=== PATIENT | female | born 1965 | race Caucasian/White ===

== ENCOUNTER 2022-04-28 23:22 | Emergency (ER) | payer SELFPAY ==
--- NOTE | ~2022-04-28 | CT_ITS ---
EXAMINATION: CT HEAD WITHOUT CONTRAST CLINICAL INFORMATION: Altered mental status. COMPARISON: None TECHNIQUE: Contiguous axial imaging was performed from the skull base to vertex without intravenous administration of contrast. This CT examination was performed using dose optimization techniques as appropriate, variously including the following: *Automated exposure control *Adjustment of mA and/or kV according to patient size (this includes techniques or standardized protocols for targeted exams where dose is matched to indication/reason for exam; i.e. extremities or head) *Use of iterative reconstruction technique DLP: 625 mGy-cm FINDINGS: Mild diffuse commensurate prominence of ventricles and sulci is noted. No intracranial hemorrhage, tumors or acute infarcts are noted. No focal parenchymal lesions of the brain identified. The orbits and globes are normal in appearance. No significant opacification of the visualized paranasal sinuses, mastoid air cells and middle ear cavities. CT/CT head/brain wo con IMPRESSION: *No acute intracranial abnormalities.
[2022-04-28 23:37] VITALS: BP 150/80; BP 170/90; PULSE 81; PULSE 90; RESP 16; TEMP 36.8; O2SAT 97; O2SAT 99; BMI 26.4
--- NOTE | 2022-04-28 23:41 | ECG_ITS ---
Test Reason : AMS Blood Pressure : / mmHG Vent. Rate : 074 BPM Atrial Rate : 074 BPM P-R Int : 158 ms QRS Dur : 082 ms QT Int : 394 ms P-R-T Axes : 035 -01 032 degrees QTc Int : 437 ms Normal sinus rhythm Normal ECG No previous ECGs available Referred By: Mona Marshall Electronically Signed By:GREGORIO DIXON MD
--- NOTE | 2022-04-28 23:42 | ED.GENADULT ---
HPI - General Adult General Chief complaint: General Medical Stated complaint: AMS Time Seen by Provider: 04/28/22 23:36 Source: patient and EMS Mode of arrival: EMS Limitations: no limitations History of Present Illness HPI narrative: Patient comes to the emergency room via EMS for altered mental status. Seems that throughout the day, patient's blood glucose has been low, patient ate and now her blood glucose was high. Patient states that this time she feels tired, otherwise has no symptoms. Patient states she has been awake the whole time, no loss of consciousness. Patient did not have any seizure-like activity. Related Data Allergies Allergy/AdvReac Type Severity Reaction Status Date / Time No Known Allergies Allergy Verified 04/28/22 23:41 Review of Systems Review of Systems: Constitutional : No Weight loss, No Fever, No Chills, No Night Sweats, No Fatigue, No Malaise , feeling tired ENT/Mouth : No Hearing loss, No Ear Pain, No Nasal Congestion, No Sinus Pain, No Hoarseness, No sore throat, No Rhinorrhea, No Swallowing Difficulty Eyes: No Eye Pain, No Swelling, No Redness, No Foreign Body, No Discharge, No Vision Changes Cardiovascular : No Chest Pain, No SOB, No Dyspnea on Exertion, No Orthopnea, No Edema, No Palpitations Respiratory : No Cough, No Sputum, No Wheezing, No Smoke Exposure, No Dyspnea Gastrointestinal : No Nausea, No Vomiting, No Diarrhea, No Constipation, No abdominal Pain, No Hematochezia, No Melena Genitourinary : no irregular bleeding, No Dysuria, No Urinary Frequency, No Hematuria, No Urinary Incontinence, No Urgency, No Flank Pain, No Urinary Flow Changes, No Hesitancy Musculoskeletal : No joint pain, No Myalgias, No Joint Swelling Skin : No Skin Lesions, No rash Neuro : No Weakness, No Numbness, No Paresthesias, No Loss of Consciousness, No Dizziness, No Headache Psych : No Anxiety/Panic, No Depression, No SI/HI/AH/VH, No Social Issues, Heme/Lymph: No Bruising, No Bleeding,No Lymphadenopathy Endocrine : No Polyuria, No Polydipsia, No Temperature Intolerance [facility] Past Medical History Medical History (Updated 04/29/22 @ 02:46 by Mona Marshall MD) Diabetes GERD (gastroesophageal reflux disease) Social History Social History Advance Directives: No Advance Directives Information Provided: Yes Physical Exam ED Vital Signs: Vital Signs - 24 hr 04/28/22 23:37 04/28/22 23:43 04/29/22 00:34 Temperature 98.3 F 98.3 F 98.2 F Pulse Rate 81 77 79 Respiratory Rate 16 16 16 Blood Pressure 150/80 H 150/80 H 126/73 Pulse Oximetry 97 97 100 Oxygen Delivery Method Room Air Room Air Room Air BMI result Body Mass Index 26.4 Const Other: Appearance: Alert. Oriented X3. No acute distress. Eyes: Pupils equal, round and reactive to light. ENT: Pharynx normal. Neck: Normal inspection. Neck supple. No lymph nodes noted. No crepitus CVS: Normal heart rate and rhythm. Pulses normal. Normal S1 and S2 Respiratory: No respiratory distress. Breath sounds normal. No Wheezing. No rales Abdomen: Soft and nontender. No rigidity. No distention. Skin: Skin warm and dry. Normal skin color. Normal skin turgor. Extremities: No lower extremity edema. No Lacerations. No Rash Neuro: Oriented X 3. No motor deficit. No sensory deficit. Moving all extremities. No slurred speech. CN 2 through 12 grossly intact Psych: calm, cooperative, normal affect Course Course Course Narrative: of patient's labs are pending. I discussed labs with the patient. Patient states that she feels completely back to baseline, alert and oriented x4, ambulatory with steady gait Medical Decision Making Lab Data Result diagrams: 04/28/22 23:58 04/28/22 23:58 Labs: Lab Results 04/28/22 04/28/22 04/28/22 Range/Units 23:58 23:58 23:58 WBC 7.4 (4.8-10.8) X10*3/uL RBC 4.98 (4.20-5.50) X10*6/uL Hgb 12.5 (12.0-16.0) g/dl Hct 38.6 (37.0-47.0) % MCV 77.5 L (80.0-98.0) fL MCH 25.1 L (27.0-33.0) pg MCHC 32.4 (31.0-35.0) g/dl RDW 14.4 (11.0-16.0) % Plt Count 205 (160-400) X10*3/uL MPV 10.1 (9.4-12.3) fL Immature Gran % (Auto) 0.4 (0.0-0.4) % Neut % (Auto) 66.2 (45-73) % Lymph % (Auto) 15.2 L (20-40) % [place] % (Auto) 13.9 H (2-11) % Eos % (Auto) 3.9 (0-4) % Baso % (Auto) 0.4 (0-2) % Lymph # (Auto) 1.1 L (1.2-4.9) X10*3/uL [place] # (Auto) 1.0 (0.1-1.2) X10*3/uL Eos # (Auto) 0.3 (0.0-0.4) X10*3/uL Baso # (Auto) 0.0 (0.0-0.2) X10*3/uL Abs Immat Gran (auto) 0.03 (0.00-0.03) X10*3/uL Absolute Neuts (auto) 4.9 (2.0-8.3) x10*3/uL Absolute Nucleated RBC 0.000 (0.0-0.012) X10*3/uL Nucleated RBC % (auto) 0.0 (0.0-0.2) /100WBC Sodium 135 (135-145) mmol/L Potassium 3.3 (3.3-5.1) mmol/L Chloride 97 (96-108) mmol/L Carbon Dioxide 28 (22-29) mmol/L Anion Gap 13 (12-20) BUN 11 (9-16) mg/dL Creatinine 1.04 (0.5-1.4) mg/dL Estim Creat Clear Calc 52.1 Estimated GFR 55 Random Glucose 277 H (60-115) mg/dL Calcium 8.9 (8.4-10.2) mg/dL Total Bilirubin 0.6 (0.0-1.0) mg/dL Direct Bilirubin 0.3 (0.0-0.5) mg/dL AST 28 (5-31) U/L ALT 19 (0-31) U/L Alkaline Phosphatase 81 (39-117) U/L Total Protein 6.6 (6.5-8.0) g/dL Albumin 3.9 (3.5-5.0) g/dL Urine Color Urine Appearance Urine pH (5.0-8.0) Ur Specific [place] (1.005-1.025) Urine Protein (NEG-TRACE) MG/DL Urine Glucose (UA) (NEG) MG/DL Urine Ketones (NEG) MG/DL Urine Blood (NEG) Urine Nitrite (NEG) Ur Leukocyte Esterase (NEG) Urine RBC (0) /HPF Urine WBC (0-4) /HPF Ur Squamous Epith Cells /LPF Urine Bacteria /LPF Urine Mucus /LPF Urine Opiates Screen (Not Detect) Urine Fentanyl Screen (Not Detect) Ur Barbiturates Screen (Not Detect) Ur Phencyclidine Scrn (Not Detect) Ur Amphetamines Screen (Not Detect) U Benzodiazepines Scrn (Not Detect) Urine Cocaine Screen (Not Detect) U Marijuana (THC) Screen (Not Detect) Ethyl Alcohol < 10 mg/dL 04/28/22 04/28/22 Range/Units 23:58 23:58 WBC (4.8-10.8) X10*3/uL RBC (4.20-5.50) X10*6/uL Hgb (12.0-16.0) g/dl Hct (37.0-47.0) % MCV (80.0-98.0) fL MCH (27.0-33.0) pg MCHC (31.0-35.0) g/dl RDW (11.0-16.0) % Plt Count (160-400) X10*3/uL MPV (9.4-12.3) fL Immature Gran % (Auto) (0.0-0.4) % Neut % (Auto) (45-73) % Lymph % (Auto) (20-40) % [place] % (Auto) (2-11) % Eos % (Auto) (0-4) % Baso % (Auto) (0-2) % Lymph # (Auto) (1.2-4.9) X10*3/uL [place] # (Auto) (0.1-1.2) X10*3/uL Eos # (Auto) (0.0-0.4) X10*3/uL Baso # (Auto) (0.0-0.2) X10*3/uL Abs Immat Gran (auto) (0.00-0.03) X10*3/uL Absolute Neuts (auto) (2.0-8.3) x10*3/uL Absolute Nucleated RBC (0.0-0.012) X10*3/uL Nucleated RBC % (auto) (0.0-0.2) /100WBC Sodium (135-145) mmol/L Potassium (3.3-5.1) mmol/L Chloride (96-108) mmol/L Carbon Dioxide (22-29) mmol/L Anion Gap (12-20) BUN (9-16) mg/dL Creatinine (0.5-1.4) mg/dL Estim Creat Clear Calc Estimated GFR Random Glucose (60-115) mg/dL Calcium (8.4-10.2) mg/dL Total Bilirubin (0.0-1.0) mg/dL Direct Bilirubin (0.0-0.5) mg/dL AST (5-31) U/L ALT (0-31) U/L Alkaline Phosphatase (39-117) U/L Total Protein (6.5-8.0) g/dL Albumin (3.5-5.0) g/dL Urine Color YELLOW Urine Appearance HAZY Urine pH 6.5 (5.0-8.0) Ur Specific [place] <= 1.005 (1.005-1.025) Urine Protein TRACE (NEG-TRACE) MG/DL Urine Glucose (UA) >=1000 H (NEG) MG/DL Urine Ketones NEG (NEG) MG/DL Urine Blood 1+ H (NEG) Urine Nitrite NEG (NEG) Ur Leukocyte Esterase NEG (NEG) Urine RBC 0-2 (0) /HPF Urine WBC 0 (0-4) /HPF Ur Squamous Epith Cells 1+ /LPF Urine Bacteria 1+ /LPF Urine Mucus 1+ /LPF Urine Opiates Screen Not Detected (Not Detect) Urine Fentanyl Screen Not Detected (Not Detect) Ur Barbiturates Screen Not Detected (Not Detect) Ur Phencyclidine Scrn Not Detected (Not Detect) Ur Amphetamines Screen Not Detected (Not Detect) U Benzodiazepines Scrn Not Detected (Not Detect) Urine Cocaine Screen Not Detected (Not Detect) U Marijuana (THC) Screen Not Detected (Not Detect) Ethyl Alcohol mg/dL Imaging Data CT scan - head: Radiologist's impression: TECHNIQUE: Contiguous axial imaging was performed from the skull base to vertex without intravenous administration of contrast. This CT examination was performed using dose optimization techniques as appropriate, variously including the following: *Automated exposure control *Adjustment of mA and/or kV according to patient size (this includes techniques or standardized protocols for targeted exams where dose is matched to indication/reason for exam; i.e. extremities or head) *Use of iterative reconstruction technique DLP: 625 mGy-cm FINDINGS: Mild diffuse commensurate prominence of ventricles and sulci is noted. No intracranial hemorrhage, tumors or acute infarcts are noted. No focal parenchymal lesions of the brain identified. The orbits and globes are normal in appearance. No significant opacification of the visualized paranasal sinuses, mastoid air cells and middle ear cavities. CT/CT head/brain wo con IMPRESSION: *No acute intracranial abnormalities. Discharge Plan Discharge Clinical Impression: Acute hyperglycemia, Acute confusion Patient Disposition: Home, Self-Care Instructions: Diabetes and Exercise (ED) Additional Instructions: Please follow-up with your primary care physician tomorrow. If you have any worsening or new symptoms, please return to the emergency room or call 911
[2022-04-28 23:43] VITALS: BP 150/80; PULSE 77; RESP 16; TEMP 36.8; O2SAT 97; BMI 26.4
[2022-04-29 00:03] LABS: MANUAL DIFF FLAG NO
[2022-04-29 00:04] LABS: Basophils Percent Auto 0.4 % (0-2); Eosinophils Absolute Auto 0.3 X10*3/uL (0.0-0.4); Eosinophils Percent Auto 3.9 % (0-4); Hematocrit 38.6 % (37.0-47.0); Hemoglobin 12.5 g/dl (12.0-16.0); Imm Gran Abs Auto 0.03 X10*3/uL (0.00-0.03); Imm Gran Pct Auto 0.4 % (0.0-0.4); Lymphocytes Absolute Auto 1.1 X10*3/uL (1.2-4.9); Lymphocytes Percent Auto 15.2 % (20-40); Mean Corpuscular HGB Conc 32.4 g/dl (31.0-35.0); Mean Corpuscular Hemoglobin 25.1 pg (27.0-33.0); Mean Corpuscular Volume 77.5 fL (80.0-98.0); Mean Platelet Volume 10.1 fL (9.4-12.3); Monocytes Percent Auto 13.9 % (2-11); Neutrophils Absolute Auto 4.9 x10*3/uL (2.0-8.3); Neutrophils Percent Auto 66.2 % (45-73); Platelet Count 205 X10*3/uL (160-400); Red Blood Count 4.98 X10*6/uL (4.20-5.50); Red Cell Distribution Width 14.4 % (11.0-16.0); White Blood Count 7.4 X10*3/uL (4.8-10.8)
[2022-04-29 00:05] LABS: Appearance Urine HAZY; Color Urine YELLOW; Glucose Urine UA >=1000 MG/DL (NEG); Leukocyte Esterase Urine NEG (NEG); Nitrite Urine NEG (NEG); PH 6.5 (5.0-8.0); Specific Gravity - Urine <= 1.005 (1.005-1.025); UACC Culture Trigger NO; Urine Blood 1+ (NEG); Urine Ketones NEG (NEG); Urine Protein TRACE MG/DL (NEG-TRACE)
[2022-04-29 00:14] LABS: Bacteria Urine 1+ /LPF; Mucus Urine 1+ /LPF; RBC Urine 0-2 /HPF (0); Squamous Epithelial Cell Urine 1+ /LPF; WBC Urine 0 /HPF (0-4)
[2022-04-29 00:18] LABS: Amphetamine Screen Urine Not Detected (Not Detect); Barbiturates, Urine Not Detected (Not Detect); Benzodiazepines Screen Urine Not Detected (Not Detect); Cannabinoid Screen Urine Not Detected (Not Detect); Cocaine Screen Urine Not Detected (Not Detect); Fentanyl, urine Not Detected (Not Detect); Opiate Screen Urine Not Detected (Not Detect); Phencyclidine Screen Urine Not Detected (Not Detect)
[2022-04-29 00:20] LABS: Ethanol < 10 mg/dL
[2022-04-29 00:22] LABS: Alanine Aminotransferase 19 U/L (0-31); Albumin Level 3.9 g/dL (3.5-5.0); Alkaline Phosphatase 81 U/L (39-117); Anion Gap 13 (12-20); Aspartate Amino Transferase 28 U/L (5-31); Bilirubin Direct 0.3 mg/dL (0.0-0.5); Bilirubin Total 0.6 mg/dL (0.0-1.0); Blood Urea Nitrogen 11 mg/dL (9-16); Calcium 8.9 mg/dL (8.4-10.2); Carbon Dioxide 28 mmol/L (22-29); Chloride 97 mmol/L (96-108); Creatinine Clr Calc Pharmacy 52.1; Estimated Glomerular Filt Rate 55; Glucose Random 277 mg/dL (60-115); Potassium 3.3 mmol/L (3.3-5.1); Sodium 135 mmol/L (135-145); Total Protein 6.6 g/dL (6.5-8.0)
[2022-04-29 00:34] VITALS: BP 126/73; PULSE 79; RESP 16; TEMP 36.8; O2SAT 100
[2022-04-29 02:44] VITALS: BP 128/66; PULSE 75; RESP 18; O2SAT 97
== END 2022-04-29 03:06 | disposition home or self-care (01) ==
PROVIDERS: Emergency Provider Emergency Medicine
DX: R73.9 Hyperglycemia, unspecified (principal); R41.82 Altered mental status, unspecified; Z79.899 Other long term (current) drug therapy
CPT/HCPCS: 36415; 70450; 80048; 80076; 80307; 81001; 82077; 85025; 93005; 99283; 99284

== ENCOUNTER 2022-07-21 20:52 | Emergency (ER) | payer BC, SELFPAY ==
--- NOTE | ~2022-07-21 | CT_ITS ---
EXAMINATION: CT HEAD WITHOUT CONTRAST CLINICAL INFORMATION: Memory problem. COMPARISON: CT head from 04/29/2022. TECHNIQUE: Contiguous axial imaging was performed from the skull base to vertex without intravenous administration of contrast. This CT examination was performed using dose optimization techniques as appropriate, variously including the following: *Automated exposure control. *Adjustment of mA and/or kV according to patient size (this includes techniques or standardized protocols for targeted exams where dose is matched to indication/reason for exam; i.e. extremities or head). *Use of iterative reconstruction technique. DLP: 637 mGy-cm FINDINGS: There is no evidence of acute intracranial hemorrhage or edematous territorial infarction. Ott-white matter differentiation is preserved. There is no abnormal attenuation within the brain parenchyma. Proportional prominence of the ventricles and sulcal spaces without evidence of obstructive hydrocephalus. Normal positioning of the cerebellar tonsils. No abnormal mass effect or midline shift. No extra-axial fluid collections. No acute soft tissue or osseous abnormalities. The mastoid air cells and visualized paranasal sinuses are clear. CT/CT head/brain wo IV con IMPRESSION: No evidence of acute intracranial hemorrhage or edematous territorial infarction.
[2022-07-21 21:20] VITALS: BP 135/100; PULSE 72; RESP 15; TEMP 37.2; O2SAT 99; BMI 26.4
[2022-07-21 21:23] VITALS: BP 135/80
[2022-07-21 21:46] LABS: Appearance Urine Clear; Color Urine Yellow; Glucose Urine UA >=1000 mg/dL (Negative); Leukocyte Esterase Urine Negative (Negative); Nitrite Urine Negative (Negative); UMIC TRIGGER UACC YES; Urine Blood Negative (Negative); Urine Ketones Negative (Negative); Urine Protein Negative (Neg-Trace)
[2022-07-21 21:48] LABS: Bacteria Urine None Seen (None Seen); Hyaline Casts Urine 0-2 /LPF (0-2); RBC Urine 0-2 /HPF (0-2); Squamous Epithelial Cell Urine 0-2 /HPF (0-2); WBC Urine 0-5 /HPF (0-5)
[2022-07-21 22:59] LABS: MANUAL DIFF FLAG NO
[2022-07-21 23:01] LABS: Basophils Percent Auto 0.3 % (0-2); Eosinophils Absolute Auto 0.1 X10*3/uL (0.0-0.4); Hematocrit 40.1 % (37.0-47.0); Hemoglobin 12.5 g/dl (12.0-16.0); Imm Gran Abs Auto 0.03 X10*3/uL (0.00-0.03); Imm Gran Pct Auto 0.3 % (0.0-0.4); Lymphocytes Absolute Auto 2.7 X10*3/uL (1.2-4.9); Lymphocytes Percent Auto 27.6 % (20-40); Mean Corpuscular HGB Conc 31.2 g/dl (31.0-35.0); Mean Corpuscular Hemoglobin 25.6 pg (27.0-33.0); Mean Platelet Volume 10.7 fL (9.4-12.3); Monocytes Absolute Auto 0.6 X10*3/uL (0.1-1.2); Monocytes Percent Auto 6.4 % (2-11); Neutrophils Absolute Auto 6.2 x10*3/uL (2.0-8.3); Neutrophils Percent Auto 64.4 % (45-73); Platelet Count 292 X10*3/uL (160-400); Red Blood Count 4.89 X10*6/uL (4.20-5.50); Red Cell Distribution Width 14.7 % (11.0-16.0); White Blood Count 9.7 X10*3/uL (4.8-10.8)
[2022-07-21 23:19] LABS: Alanine Aminotransferase 15 U/L (0-31); Albumin Level 4.1 g/dL (3.5-5.0); Alkaline Phosphatase 84 U/L (39-117); Anion Gap 17 (12-20); Aspartate Amino Transferase 16 U/L (5-31); Bilirubin Total 0.3 mg/dL (0.0-1.0); Blood Urea Nitrogen 13 mg/dL (9-16); Calcium 9.6 mg/dL (8.4-10.2); Carbon Dioxide 29 mmol/L (22-29); Chloride 101 mmol/L (96-108); Creatinine Clr Calc Pharmacy 58.2; Estimated Glomerular Filt Rate > 60; Glucose Random 191 mg/dL (60-115); Potassium 4.7 mmol/L (3.3-5.1); Sodium 142 mmol/L (135-145)
--- NOTE | 2022-07-22 00:46 | ED_ITS ---
HPI - General Adult General Chief complaint: Altered Mental Status Stated complaint: Forgetful this past year Time Seen by Provider: 07/22/22 00:34 Source: patient and family (Brother) Mode of arrival: ambulatory Limitations: no limitations History of Present Illness HPI narrative: 57-year-old female came in with her brother for concern of memory issues for 1 year. Brother and family noticed that the patient is forgetting things for the past year and progressively getting worse, patient forget her date of in triage, patient also forget to take her medication for diabetes, and start to affect her job. Patient and family confirm this symptoms has been going for the past year she and is not acute, patient declined any headache, no blurry vision, no weakness, no numbness, no CP, no SOB, patient also declined any head injury or trauma. Patient lives home with her stated that she is stressed out, no SI, no HI. Related Data Allergies Allergy/AdvReac Type Severity Reaction Status Date / Time No Known Allergies Allergy Verified 07/21/22 21:23 Review of Systems Review of Systems: All other systems are reviewed and are negative Constitutional: Reports as per HPI and Reports no additional constitutional complaints Eyes: Reports as per HPI and Reports no additional eye complaints Reports system reviewed and no additional complaints, except as documented Cardiovascular: Reports as per HPI and Reports no additional cardiovascular complaints Respiratory: Reports as per HPI and Reports no additional respiratory complaints Gastrointestinal: Reports as per HPI and Reports no additional gastrointestinal complaints Genitourinary: Reports no additional female genitourinary complaints Musculoskeletal: Reports no additional musculoskeletal complaints Skin/Breast: Reports system reviewed and no additional complaints, except as docu Psychiatric: Reports no additional psychiatric complaints Endocrine: Reports no additional endocrine complaints Hematologic/Lymphatic: Reports no additional hematologic/lymphatic complaints Allergic/Immunologic: Reports no additional allergic/immunologic complaints Reports system reviewed and no additional complaints, except as documented and Reports Abnormal speech present [facility] Past Medical History Medical History Diabetes GERD (gastroesophageal reflux disease) Social History Social History Advance Directives: No Advance Directives Information Provided: No Physical Exam ED Vital Signs: Vital Signs - 24 hr 07/21/22 21:20 07/21/22 21:23 Temperature 98.9 F Pulse Rate 72 Respiratory Rate 15 Blood Pressure 135/100 H 135/80 Pulse Oximetry 99 Oxygen Delivery Method Room Air BMI result Body Mass Index 26.4 Vital signs have been reviewed as appeared to be correct. Blood pressure normal. Heart rate normal. Respiration rate normal. Temperature normal. Oxygen saturation normal. Appearance: Alert. Oriented X3. No acute distress. Head: Normal external exam. Normocephalic. Atraumatic. No Fish signs noted. No raccoon eyes noted Eyes: PERRLA. EOMI. Conjunctiva and sclera normal. Eyelids normal. ENT: TM's Normal. Pharynx normal. Uvula midline. Moist mucous membranes. No trismus noted. No drooling noted. No muffled voice noted. Neck: Normal inspection. Neck supple. FROM. No adenopathy. Thyroid Normal. No meningeal signs. No neck mass noted. CVS: Normal heart rate and rhythm. Heart sound normal. No murmurs noted. Pulses normal throughout. Respiratory: No respiratory distress. Painless inspiration. Breath sounds normal. No wheezes/rales/rhonchi noted. Chest nontender. No accessory muscle usage noted or decreased air movement noted. Abdomen: Soft and nontender. Bowel sounds normal in all 4 quadrants. No distention noted. No organomegaly noted. No visible injury noted. Back: No CVA tenderness. Full range of motion noted. Skin: Skin warm and dry. Normal skin color. Normal skin turgor. No rashes/lesions/lacerations noted. Extremities: No lower extremity edema. Extremities exhibit normal range of motion. Extremities nontender. Neuro: Oriented X 3. Cranial nerve exam: II-XII are grossly intact No motor deficit. No sensory deficit. Reflexes normal. Patient Orientation: Person, Place, and situation but not time Level of Consciousness: Awake, Appropriate and Alert Patient Behavior: Appropriate, Guarded, Cooperative and Anxious Mood Description: Unremarkable Affect Description: Unremarkable Patient Cognition Impaired: No Ability to Follow Directions: Excellent Speech Pattern: Clear, Appropriate and Spontaneous Speech Memory Description: Short-term memory impaired (own patient asked memorized 3 sings patient forgot 2 out of 3) Hallucinations: None Delusions: Not Present Thought Process: Intact Thought Content: positive for Intact, positive for Logical, denies Suicidal Ideation and denies Homicidal Ideation. Depressive Symptoms: Not present Judgement: Good Judgement and Insight: Intact Course Course Course Narrative: 57-year-old female came in for evaluation of memory deficit for the past year, patient has normal neuro exam, normal mental exam, unremarkable head CT today, patient had head CT 3 months ago which was unremarkable. Patient will need further evaluation by a neurologist. Medical Decision Making Lab Data Lab results reviewed: Yes I reviewed the patient's lab results. Result diagrams: 07/21/22 22:51 07/21/22 22:51 Labs: Lab Results 07/21/22 07/21/22 07/21/22 Range/Units 21:39 22:51 22:51 WBC 9.7 (4.8-10.8) X10*3/uL RBC 4.89 (4.20-5.50) X10*6/uL Hgb 12.5 (12.0-16.0) g/dl Hct 40.1 (37.0-47.0) % MCV 82.0 (80.0-98.0) fL MCH 25.6 L (27.0-33.0) pg MCHC 31.2 (31.0-35.0) g/dl RDW 14.7 (11.0-16.0) % Plt Count 292 D (160-400) X10*3/uL MPV 10.7 (9.4-12.3) fL Immature Gran % (Auto) 0.3 (0.0-0.4) % Neut % (Auto) 64.4 (45-73) % Lymph % (Auto) 27.6 (20-40) % [place] % (Auto) 6.4 (2-11) % Eos % (Auto) 1.0 (0-4) % Baso % (Auto) 0.3 (0-2) % Lymph # (Auto) 2.7 (1.2-4.9) X10*3/uL [place] # (Auto) 0.6 (0.1-1.2) X10*3/uL Eos # (Auto) 0.1 (0.0-0.4) X10*3/uL Baso # (Auto) 0.0 (0.0-0.2) X10*3/uL Abs Immat Gran (auto) 0.03 (0.00-0.03) X10*3/uL Absolute Neuts (auto) 6.2 (2.0-8.3) x10*3/uL Absolute Nucleated RBC 0.000 (0.0-0.012) X10*3/uL Nucleated RBC % (auto) 0.0 (0.0-0.2) /100WBC Sodium 142 (135-145) mmol/L Potassium 4.7 D (3.3-5.1) mmol/L Chloride 101 (96-108) mmol/L Carbon Dioxide 29 (22-29) mmol/L Anion Gap 17 (12-20) BUN 13 (9-16) mg/dL Creatinine 0.92 (0.5-1.4) mg/dL Estim Creat Clear Calc 58.2 Estimated GFR > 60 Random Glucose 191 H (60-115) mg/dL Calcium 9.6 D (8.4-10.2) mg/dL Total Bilirubin 0.3 (0.0-1.0) mg/dL AST 16 D (5-31) U/L ALT 15 (0-31) U/L Alkaline Phosphatase 84 (39-117) U/L Total Protein 7.0 (6.5-8.0) g/dL Albumin 4.1 (3.5-5.0) g/dL Urine Color Yellow Urine Appearance Clear Urine pH 6.0 (5.0-9.0) Ur Specific [place] 1.020 (1.005-1.025) Urine Protein Negative (Neg-Trace) mg/dL Urine Glucose (UA) >=1000 H (Negative) mg/dL Urine Ketones Negative (Negative) mg/dL Urine Blood Negative (Negative) Urine Nitrite Negative (Negative) Ur Leukocyte Esterase Negative (Negative) Urine RBC 0-2 (0-2) /HPF Urine WBC 0-5 (0-5) /HPF Ur Squamous Epith Cells 0-2 (0-2) /HPF Urine Bacteria None Seen (None Seen) Hyaline Casts 0-2 (0-2) /LPF Imaging Data CT scan - head: Attestation: I personally reviewed and interpreted this imaging study as follows: Radiologist's impression: No evidence of acute intracranial hemorrhage or edematous territorial infarction. ? Discharge Plan Discharge Clinical Impression: Memory deficit Patient Disposition: Home, Self-Care Instructions: Dementia (ED) Referrals: Asad Mattson MD [Physician] -
== END 2022-07-22 02:09 | disposition home or self-care (01) ==
PROVIDERS: Emergency Provider Emergency Medicine
DX: R41.3 Other amnesia (principal); E11.9 Type 2 diabetes mellitus without complications
CPT/HCPCS: 36415; 70450; 80053; 81001; 85025; 99283; 99284

== ENCOUNTER 2022-11-17 11:51 | Outpatient (REF) | payer BC, SELFPAY ==
[2022-11-17 13:26] LABS: Erythrocyte Sedimentation Rate 42 MM/HR (0-20)
[2022-11-17 13:36] LABS: Vitamin B12 610 pg/mL (200-900)
[2022-11-18 09:44] LABS: HIV AB/AG Nonreactive (Nonreactive); HIV Num 1 0.97 S/CO (0.00-0.99)
[2022-11-20 12:58] LABS: Anti Nuclear Antibody Screen NEGATIVE (NEGATIVE)
[2022-11-21 13:32] LABS: Lyme Abs Screen <0.90 index
== END 2022-11-17 11:52 | disposition home or self-care (01) ==
LOC: HO.LAB 11:51
PROVIDERS: PCP Internal Medicine; Visit Provider Psychiatry & Neurology Neurology
DX: Z11.4 Encounter for screening for human immunodeficiency virus [HIV] (principal); G93.40 Encephalopathy, unspecified
CPT/HCPCS: 36415; 82607; 85652; 86038; 86039; 86617; 86618; 87389

== ENCOUNTER 2023-03-23 15:18 | Inpatient (IN) | payer BC, SELFPAY ==
--- NOTE | 2023-03-23 | ECG_ITS ---
Test Reason : med clearance Blood Pressure : / mmHG Vent. Rate : 062 BPM Atrial Rate : 062 BPM P-R Int : 150 ms QRS Dur : 078 ms QT Int : 446 ms P-R-T Axes : -06 000 052 degrees QTc Int : 452 ms Normal sinus rhythm Normal ECG When compared with ECG of 28-APR-2022 23:55, No significant change was found Referred By: Nnamdi Bush Electronically Signed By:Waston Yu
--- NOTE | ~2023-03-23 | MR_ITS ---
EXAMINATION: MR BRAIN WITHOUT CONTRAST CLINICAL INFORMATION: Rule out CJD. Looking for white matter changes. COMPARISON: Head CT 07/22/2022. TECHNIQUE: Multiplanar, multisequence imaging of the brain was performed without intravenous contrast. FINDINGS: There is no acute infarction, mass, hemorrhage, or extra-axial collection. A few mild nonspecific foci of T2/FLAIR hyperintensity are seen within the periventricular and deep cerebral white matter as well as danny, presumably on the basis of chronic microangiopathy. A mild degree of brain parenchymal volume loss is noted. There is mild asymmetric prominence of the left lateral ventricular atrium, stable compared with prior. There is no abnormal signal within the cortex or thalami. The diffusion sequence appears normal. The flow voids of the major intracranial arteries appear intact. The bones and extracranial soft tissues are unremarkable. MR/MR head/brain wo con IMPRESSION: No acute infarct, mass lesion, intracranial hemorrhage, or evidence of hydrocephalus. Mild nonspecific T2/FLAIR hyperintensity in the cerebral white matter and danny presumably on the basis of chronic microangiopathy.
--- NOTE | ~2023-03-23 | CT_ITS ---
EXAMINATION: CT CERVICAL SPINE WITHOUT CONTRAST CLINICAL INFORMATION: Neck pain and weakness. COMPARISON: None available. TECHNIQUE: Multidetector CT acquisition of the cervical spine obtained without contrast. This CT examination was performed using dose optimization techniques as appropriate, variously including the following: *Automated exposure control *Adjustment of mA and/or kV according to patient size (this includes techniques or standardized protocols for targeted exams where dose is matched to indication/reason for exam; i.e. extremities or head) *Use of iterative reconstruction technique FINDINGS: Straightening the cervical lordosis. The vertebral body heights are maintained. The disc volumes are preserved. There are no acute fractures and there are no acute subluxations. The craniocervical junction is unremarkable. No bony erosions. There is multilevel facet arthropathy. There is no prevertebral soft tissue swelling. Central canal is not well assessed due to artifact. There is no high-grade bony foraminal stenosis. CT/CT cervical spine wo IV con IMPRESSION: No acute findings within the cervical spine. The cervical central canal is not well assessed on this CT due to artifact. If weakness persists, a cervical spine MRI would be more sensitive in assessment.
[2023-03-23 15:25] VITALS: BP 118/84; PULSE 70; O2SAT 16
[2023-03-23 15:29] VITALS: BP 156/70; PULSE 61; RESP 18; TEMP 36.6; O2SAT 97; BMI 34.7
[2023-03-23 15:54] LABS: MANUAL DIFF FLAG NO
[2023-03-23 15:56] LABS: Basophils Percent Auto 0.3 % (0-2); Eosinophils Absolute Auto 0.3 X10*3/uL (0.0-0.4); Hematocrit 49.5 % (37.0-47.0); Hemoglobin 15.7 g/dl (12.0-16.0); Imm Gran Abs Auto 0.04 X10*3/uL (0.00-0.03); Imm Gran Pct Auto 0.4 % (0.0-0.4); Lymphocytes Absolute Auto 2.2 X10*3/uL (1.2-4.9); Lymphocytes Percent Auto 24.7 % (20-40); Mean Corpuscular HGB Conc 31.7 g/dl (31.0-35.0); Mean Corpuscular Hemoglobin 26.9 pg (27.0-33.0); Mean Corpuscular Volume 84.9 fL (80.0-98.0); Mean Platelet Volume 10.3 fL (9.4-12.3); Monocytes Absolute Auto 0.6 X10*3/uL (0.1-1.2); Monocytes Percent Auto 6.7 % (2-11); Neutrophils Absolute Auto 5.8 x10*3/uL (2.0-8.3); Neutrophils Percent Auto 64.9 % (45-73); Platelet Count 254 X10*3/uL (160-400); Red Blood Count 5.83 X10*6/uL (4.20-5.50); Red Cell Distribution Width 13.2 % (11.0-16.0); White Blood Count 8.9 X10*3/uL (4.8-10.8)
[2023-03-23 15:58] LABS: Appearance Urine Clear; Color Urine Yellow; Glucose Urine UA >=1000 mg/dL (Negative); Leukocyte Esterase Urine Negative (Negative); Nitrite Urine Negative (Negative); Specific Gravity - Urine >= 1.030 (1.005-1.025); UMIC TRIGGER UACC YES; Urine Blood Negative (Negative); Urine Ketones 15 mg/dL (Negative); Urine Protein Negative (Neg-Trace)
[2023-03-23 16:01] LABS: Bacteria Urine None Seen (None Seen); Hyaline Casts Urine 0-2 /LPF (0-2); RBC Urine 0-2 /HPF (0-2); WBC Urine 0-5 /HPF (0-5)
[2023-03-23 16:06] LABS: Amphetamine Screen Urine Not Detected (Not Detect); Barbiturates, Urine Not Detected (Not Detect); Benzodiazepines Screen Urine Not Detected (Not Detect); Cannabinoid Screen Urine Not Detected (Not Detect); Cocaine Screen Urine Not Detected (Not Detect); Fentanyl, urine Not Detected (Not Detect); Opiate Screen Urine Not Detected (Not Detect); Phencyclidine Screen Urine Not Detected (Not Detect)
[2023-03-23 16:10] LABS: Anion Gap 15 (12-20); Blood Urea Nitrogen 14 mg/dL (9-16); Calcium 9.6 mg/dL (8.4-10.2); Carbon Dioxide 28 mmol/L (22-29); Chloride 104 mmol/L (96-108); Creatinine Clr Calc Pharmacy 66.6; Estimated Glomerular Filt Rate > 60; Glucose Random 161 mg/dL (60-115); Potassium 3.9 mmol/L (3.3-5.1); Sodium 143 mmol/L (135-145)
[2023-03-23 16:11] LABS: Ethanol < 10 mg/dL
[2023-03-23 16:16] LABS: COVID-19 Test Negative (Negative); IDNOW Serial# BCCEAD1C
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
[2023-03-23] MEDS: metFORMIN HCl 500 MG TABLET PO (21:03)
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
--- NOTE | 2023-03-24 10:11 | PC.NURSE ---
Patient refused meds and vitals this morning on [address] Matthew aware.
[2023-03-24] MEDS: metFORMIN HCl 500 MG TABLET PO ×2 (12:48→21:00)
[2023-03-24] MEDS: Empagliflozin 25 MG TABLET PO (12:48)
[2023-03-24] MEDS: Atorvastatin Calcium 40 MG TABLET PO (12:49)
[2023-03-24] MEDS: Famotidine 20 MG TABLET PO (12:49)
[2023-03-24] MEDS: Omeprazole 20 MG CAPSULE.DR PO (12:49)
[2023-03-24] MEDS: Venlafaxine HCL 25 MG TABLET 75 MG PO (12:49)
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
[2023-03-24] MEDS: hydrOXYzine HCL 25 MG TABLET PO (21:00)
[2023-03-24 21:01] VITALS: BP 150/72; PULSE 83; TEMP 36.6; O2SAT 97
[2023-03-24] MEDS: Rivastigmine Tartrate 1.5 MG CAPSULE PO (22:19)
[2023-03-25 08:30] VITALS: BP 113/71; PULSE 69; RESP 18; TEMP 36.4; O2SAT 97
[2023-03-25] MEDS: Rivastigmine Tartrate 1.5 MG CAPSULE PO ×2 (08:36→20:34)
[2023-03-25] MEDS: Venlafaxine HCL 25 MG TABLET 75 MG PO (08:36)
[2023-03-25] MEDS: Empagliflozin 25 MG TABLET PO (08:36)
[2023-03-25] MEDS: Atorvastatin Calcium 40 MG TABLET PO (08:37)
[2023-03-25] MEDS: Omeprazole 20 MG CAPSULE.DR PO (08:37)
[2023-03-25] MEDS: metFORMIN HCl 500 MG TABLET PO ×2 (08:37→20:34)
[2023-03-25] MEDS: Famotidine 20 MG TABLET PO (08:37)
--- NOTE | 2023-03-25 09:11 | P.PNPSI_ITS ---
Subjective Subjective Date of Service: 03/25/23 Reason For Visit: hallucinations Subjective Notes: Conditional Voluntary Healthcare Proxy: No Guardianship: No Medical Problems Affecting Mental Status: No Interim History: Patient was seen and discussed in rounds today. Records and plans were reviewed. She continues to be wondering around a little bit. She is safe on the unit. No auditory or visual hallucinations. She does have some cognitive difficulties. She has been mostly medication compliant. She does need some encouragement. Eating mostly adequately. She is on 5 minute checks. No complaints or side effects. No changes were made today Medication Compliance: Intermittent Side effects from medications: No Attending Groups: Intermittent Review of Systems Acute medical concerns: No Review of Systems Constitutional: Reports as per HPI, Denies chills, Denies fatigue, Denies fever(s) and Denies headache(s) Denies headache(s) Cardiovascular: Denies chest pain and Denies dyspnea Respiratory: Denies cough and Denies dyspnea Gastrointestinal: Denies abdominal pain, Denies constipation and Denies vomiting Genitourinary: Denies dysuria Denies headache(s) and Denies focal weakness Psychiatric: Denies auditory hallucinations, Reports hallucinations (Per the patient's daughter. Patient denies this), Denies tactile hallucinations and Denies suicidal ideation Endocrine: Denies fatigue Mental Status Exam Mental Status Exam Narrative: In today's visit she is alert, pleasant and interactive with brief answers. Speech is normal. Moderate eye contact. Affect is appropriate and constricted. No overt signs of psychosis. Cognitively she was not able to be tested. Judgment is marginally intact P Diagnostics Vital Signs (24Hr): Vital Signs - 24 hr 03/24/23 21:01 03/25/23 08:30 Temperature 97.9 F 97.5 F Pulse Rate 83 69 Respiratory Rate 18 Blood Pressure 150/72 H 113/71 Pulse Oximetry 97 97 Oxygen Delivery Method Room Air Room Air BMI result Body Mass Index 34.7 Labs 03/23/23 15:49 03/23/23 15:49 Labs: Laboratory Results - last 48 hr 03/23/23 03/23/23 03/23/23 15:42 15:42 15:44 WBC RBC Hgb Hct MCV MCH MCHC RDW Plt Count MPV Immature Gran % (Auto) Neut % (Auto) Lymph % (Auto) [place] % (Auto) Eos % (Auto) Baso % (Auto) Lymph # (Auto) [place] # (Auto) Eos # (Auto) Baso # (Auto) Abs Immat Gran (auto) Absolute Neuts (auto) Absolute Nucleated RBC Nucleated RBC % (auto) Sodium Potassium Chloride Carbon Dioxide Anion Gap BUN Creatinine Estim Creat Clear Calc Estimated GFR Random Glucose Calcium Urine Color Yellow Urine Appearance Clear Urine pH 6.0 Ur Specific Taylor >= 1.030 H Urine Protein Negative Urine Glucose (UA) >=1000 H Urine Ketones 15 Urine Blood Negative Urine Nitrite Negative Ur Leukocyte Esterase Negative Urine RBC 0-2 Urine WBC 0-5 Ur Squamous Epith Cells 3-5 Urine Bacteria None Seen Hyaline Casts 0-2 Urine Opiates Screen Not Detected Urine Fentanyl Screen Not Detected Ur Barbiturates Screen Not Detected Ur Phencyclidine Scrn Not Detected Ur Amphetamines Screen Not Detected U Benzodiazepines Scrn Not Detected Urine Cocaine Screen Not Detected U Marijuana (THC) Screen Not Detected Ethyl Alcohol COVID-19 (DANIEL) Negative COVID-19 Clin Com See Note 03/23/23 03/23/23 03/23/23 15:49 15:49 15:49 WBC 8.9 RBC 5.83 H Hgb 15.7 D Hct 49.5 H D MCV 84.9 MCH 26.9 L MCHC 31.7 RDW 13.2 Plt Count 254 MPV 10.3 Immature Gran % (Auto) 0.4 Neut % (Auto) 64.9 Lymph % (Auto) 24.7 [place] % (Auto) 6.7 Eos % (Auto) 3.0 Baso % (Auto) 0.3 Lymph # (Auto) 2.2 [place] # (Auto) 0.6 Eos # (Auto) 0.3 Baso # (Auto) 0.0 Abs Immat Gran (auto) 0.04 H Absolute Neuts (auto) 5.8 Absolute Nucleated RBC 0.000 Nucleated RBC % (auto) 0.0 Sodium 143 Potassium 3.9 Chloride 104 Carbon Dioxide 28 Anion Gap 15 BUN 14 Creatinine 0.96 Estim Creat Clear Calc 66.6 Estimated GFR > 60 Random Glucose 161 H Calcium 9.6 Urine Color Urine Appearance Urine pH Ur Specific Taylor Urine Protein Urine Glucose (UA) Urine Ketones Urine Blood Urine Nitrite Ur Leukocyte Esterase Urine RBC Urine WBC Ur Squamous Epith Cells Urine Bacteria Hyaline Casts Urine Opiates Screen Urine Fentanyl Screen Ur Barbiturates Screen Ur Phencyclidine Scrn Ur Amphetamines Screen U Benzodiazepines Scrn Urine Cocaine Screen U Marijuana (THC) Screen Ethyl Alcohol < 10 COVID-19 ([facility]EL) COVID-19 Clin Com Medications Medications Current Medications Acetaminophen (Acetaminophen 325 Mg Tablet) 650 mg PO Q6H PRN PRN Reason: Headache/Pain Mild Scale (1-3) Al Hydroxide/Mg Hydroxide (Magnesium Hydrox/Alum Hydrox 30 Ml Oral.Susp) 30 ml PO Q6H PRN PRN Reason: Heartburn/Nausea Atorvastatin Calcium (Atorvastatin Calcium 40 Mg Tablet) 40 mg PO DAILY [facility] Last Admin: 03/25/23 08:37 Dose: 40 mg Empagliflozin (Empagliflozin 25 Mg Tablet) 25 mg PO DAILY [facility] Last Admin: 03/25/23 08:36 Dose: 25 mg Famotidine (Famotidine 20 Mg Tablet) 20 mg PO DAILY [facility] Last Admin: 03/25/23 08:37 Dose: 20 mg Hydroxyzine HCl (Hydroxyzine Hcl 25 Mg Tablet) 25 mg PO Q6H PRN PRN Reason: Anxiety Last Admin: 03/24/23 21:00 Dose: 25 mg Magnesium Hydroxide (Milk Of Magnesia 30 Ml Oral.Susp) 30 ml PO DAILY PRN PRN Reason: Constipation Metformin HCl (Metformin Hcl 500 Mg Tablet) 500 mg PO BID [facility] Last Admin: 03/25/23 08:37 Dose: 500 mg Omeprazole (Omeprazole 20 Mg Capsule.Dr) 20 mg PO DAILY [facility] Last Admin: 03/25/23 08:37 Dose: 20 mg Rivastigmine Tartrate (Rivastigmine Tartrate 1.5 Mg Capsule) 1.5 mg PO BID [facility] Last Admin: 03/25/23 08:36 Dose: 1.5 mg Trazodone HCl (Trazodone Hcl 50 Mg Tablet) 50 mg PO BEDTIME [id number] PRN PRN Reason: Insomnia Venlafaxine HCl (Venlafaxine Hcl 25 Mg Tablet) 75 mg PO DAILY [facility] Last Admin: 03/25/23 08:36 Dose: 75 mg Allergies Allergies Allergy/AdvReac Type Severity Reaction Status Date / Time No Known Allergies Allergy Verified 03/23/23 18:13 Assessment & Plan Assessment & Plan (1) Hallucination, visual: Status: Acute Code(s): R44.1 - Visual hallucinations (2) Dementia: Status: Acute Code(s): F03.90 - Unspecified dementia, unspecified severity, without behavioral dis turbance, psychotic disturbance, mood disturbance, and anxiety Plan R/O lewy body dementia hold neuroleptics for now, pending neuro consult, as if pt has LBD and receives neuroleptics, irreversible injury may be caused. pt sees Dr. Mattson and reportedly has had imaging elsewhere. will ask Dr. Mattson to see her ROCHELLE. 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 03/25: Continue current regimen and plans. Neurology consult pending. Reason for continued inpatient stay Substantial Risk for: med/psych decompensation Time Spent With Patient Time: Total time managing care of this patient today ____ minutes.
[2023-03-25] MEDS: hydrOXYzine HCL 25 MG TABLET PO (20:34)
[2023-03-25] MEDS: LORazepam 0.5 MG TABLET PO (20:34)
[2023-03-25 20:37] VITALS: BP 122/57; PULSE 103; TEMP 37.1; O2SAT 100
--- NOTE | 2023-03-26 07:54 | HO.PSYCHPN ---
Subjective Subjective Date of Service: 03/26/23 Reason For Visit: hallucinations Subjective Notes: Conditional Voluntary Healthcare Proxy: No Guardianship: No Medical Problems Affecting Mental Status: No Interim History: Patient was seen and discussed in rounds today. Records and plans were reviewed. She has been still somewhat disorganized and continues to be on 5 minute checks. She does have some mood lability. Yesterday she was more intrusive with her roommate, having some paranoid thoughts, wanted to talk to the police however calmed down after talking to security. She has been irritable and confused. She asked about when she could go home. No complaints or side effects. Labs were reviewed. Eating and sleeping adequately. No changes were made today. Yesterday a low-dose Ativan was given and it was helpful. Avoided using neuroleptics for now. This would be something to review this week in light of her continued psychosis. Medication Compliance: Intermittent Side effects from medications: No Attending Groups: Intermittent Review of Systems Acute medical concerns: No Review of Systems Review of Systems Yes all other systems are reviewed and are negative Mental Status Exam Mental Status Exam Narrative: In today's visit she is alert, pleasant and interactive with brief answers. She is oriented to person and place. Speech is normal. Moderate eye contact. Affect is appropriate and constricted. No overt signs of psychosis. Cognitively she was not able to be tested but appears to be somewhat confused. Judgment is marginally intact. Little to no insight into her situation. Diagnostics Vital Signs (24Hr): Vital Signs - 24 hr 03/25/23 08:30 03/25/23 20:37 Temperature 97.5 F 98.7 F Pulse Rate 69 103 H Respiratory Rate 18 Blood Pressure 113/71 122/57 L Pulse Oximetry 97 100 Oxygen Delivery Method Room Air Room Air BMI result Body Mass Index 34.7 Labs 03/23/23 15:49 03/23/23 15:49 Medications Medications Current Medications Acetaminophen (Acetaminophen 325 Mg Tablet) 650 mg PO Q6H PRN PRN Reason: Headache/Pain Mild Scale (1-3) Al Hydroxide/Mg Hydroxide (Magnesium Hydrox/Alum Hydrox 30 Ml Oral.Susp) 30 ml PO Q6H PRN PRN Reason: Heartburn/Nausea Atorvastatin Calcium (Atorvastatin Calcium 40 Mg Tablet) 40 mg PO DAILY [facility] Last Admin: 03/25/23 08:37 Dose: 40 mg Empagliflozin (Empagliflozin 25 Mg Tablet) 25 mg PO DAILY [facility] Last Admin: 03/25/23 08:36 Dose: 25 mg Famotidine (Famotidine 20 Mg Tablet) 20 mg PO DAILY [facility] Last Admin: 03/25/23 08:37 Dose: 20 mg Hydroxyzine HCl (Hydroxyzine Hcl 25 Mg Tablet) 25 mg PO Q6H PRN PRN Reason: Anxiety Last Admin: 03/25/23 20:34 Dose: 25 mg Lorazepam (Lorazepam 0.5 Mg Tablet) 0.5 mg PO BID PRN PRN Reason: Anxiety Last Admin: 03/25/23 20:34 Dose: 0.5 mg Magnesium Hydroxide (Milk Of Magnesia 30 Ml Oral.Susp) 30 ml PO DAILY PRN PRN Reason: Constipation Metformin HCl (Metformin Hcl 500 Mg Tablet) 500 mg PO BID [facility] Last Admin: 03/25/23 20:34 Dose: 500 mg Omeprazole (Omeprazole 20 Mg Capsule.Dr) 20 mg PO DAILY [facility] Last Admin: 03/25/23 08:37 Dose: 20 mg Rivastigmine Tartrate (Rivastigmine Tartrate 1.5 Mg Capsule) 1.5 mg PO BID [facility] Last Admin: 03/25/23 20:34 Dose: 1.5 mg Trazodone HCl (Trazodone Hcl 50 Mg Tablet) 50 mg PO BEDTIME MRX1 PRN PRN Reason: Insomnia Venlafaxine HCl (Venlafaxine Hcl 25 Mg Tablet) 75 mg PO DAILY [facility] Last Admin: 03/25/23 08:36 Dose: 75 mg Allergies Allergies Allergy/AdvReac Type Severity Reaction Status Date / Time No Known Allergies Allergy Verified 03/23/23 18:13 Assessment & Plan Assessment & Plan (1) Hallucination, visual: Status: Acute Code(s): R44.1 - Visual hallucinations (2) Dementia: Status: Acute Code(s): F03.90 - Unspecified dementia, unspecified severity, without behavioral disturbance, psychotic disturbance, mood disturbance, and anxiety Plan R/O lewy body dementia hold neuroleptics for now, pending neuro consult, as if pt has LBD and receives neuroleptics, irreversible injury may be caused. pt sees Dr. Mattson and reportedly has had imaging elsewhere. will ask Dr. Mattson to see her ROCHELLE. 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 03/25: Continue current regimen and plans. Neurology consult pending. 03/26: Continue current regimen and plans. Ordered low-dose Ativan yesterday Patient educated on: medication risk/benefits Reason for continued inpatient stay Substantial Risk for: inability to function and med/psych decompensation Time Spent With Patient Time: Total time managing care of this patient today ____ minutes.
[2023-03-26 07:56] VITALS: BP 126/73; PULSE 77; TEMP 36.6; O2SAT 98
[2023-03-26 19:50] VITALS: BP 119/80; PULSE 82; RESP 18; TEMP 36.3; O2SAT 96
[2023-03-26] MEDS: LORazepam 0.5 MG TABLET PO (20:37)
[2023-03-26] MEDS: metFORMIN HCl 500 MG TABLET PO (20:37)
[2023-03-26] MEDS: Rivastigmine Tartrate 1.5 MG CAPSULE PO (20:37)
--- NOTE | 2023-03-27 | EEG_ITS ---
This is a 16-channel EEG with an EKG lead. The patient is reported awake during the tracing. Background EEG rhythm is low amplitude, mixed theta and beta with no obvious asymmetry or paroxysmal tendency. Photic stimulation is unremarkable. Hyperventilation is not performed. Cardiac lead does not reveal any significant abnormality. No sharp wave spikes or paroxysmal tendency noted. Some muscle artifacts are noted. IMPRESSION: No significant abnormality noted on this EEG. MD IBAN Dsouza/MARCOS / [id number]
--- NOTE | 2023-03-27 02:34 | PC.NURSE ---
Jessy is noted to be visible during the evening she is flat , guarded and appears thought blocked AEB being somewhat slow to respond and appearing to be searching for words. she denies depression or anxiety. although she stated that she feels sad and wants to go home so she can go back to work. (patient stated that she has worked for [employer] for 35 years) Jessy also denies suicidal/homicidal ideation as well as auditory/visual hallucinations. patient was not observed attempting to enter any of her peers rooms. patient is too confused and forgetful to attend groups at this time. A neurological consultation is still pending at this time. continue to monitor for changes, monitor for safety, continue Plan of Care
[2023-03-27 06:00] VITALS: BP 126/70; PULSE 76; RESP 18; TEMP 36.8; O2SAT 98
[2023-03-27] MEDS: Empagliflozin 25 MG TABLET PO (09:22)
[2023-03-27] MEDS: Venlafaxine HCL 25 MG TABLET 75 MG PO (09:22)
[2023-03-27] MEDS: Omeprazole 20 MG CAPSULE.DR PO (09:22)
[2023-03-27] MEDS: metFORMIN HCl 500 MG TABLET PO ×2 (09:22→21:11)
[2023-03-27] MEDS: Rivastigmine Tartrate 1.5 MG CAPSULE PO ×2 (09:22→21:11)
[2023-03-27] MEDS: Famotidine 20 MG TABLET PO (09:22)
[2023-03-27] MEDS: Atorvastatin Calcium 40 MG TABLET PO (09:23)
--- NOTE | 2023-03-27 10:12 | PM.NEUROCN ---
History of Present Illness Data of Consult Service Date: 03/27/23 Primary Care Provider: Kenroy Antonio MD HPI Reason for consult: Encephalopathy 57 years old woman who I have seen in my office couple of times for cognitive difficulties. My impression had been that the Primary Diagnosis probably was psychiatric or psychological in nature. Now she was admitted on psychiatric floor. When I met her this morning she said that she was feeling much better. There was a book on her table, which she stated she was going to read as there was nothing else to do here. Review of Systems Review of Systems: Recent hallucination delusions an odd behavior [facility] Past Medical History Medical History Diabetes GERD (gastroesophageal reflux disease) Social History Social History Household Members: Family Housing: Other Housing Other:: PATIENT CURRENTLY SLEEPING ON BROTHERS COUCH Do you presently have visiting nurse or other home services: No Unable to assess alcohol history related to: Unknown Patient Tobacco Use Status: Tobacco use Unknown Use of substances other than those prescribed or required for medical reasons: Unknown Currently Displaying Signs/Symptoms of Drug Intoxication Withdrawal: No Do you feel safe in your current relationship?: No Current Relationship Advance Directives: No Advance Directives Information Provided: No Healthcare Proxy: Yes (Isabel Wilkes (Daughter)) Guardian: No Do you have thoughts of harming others: None Do you have a plan to hurt others: No Plan Recently lost weight without trying: Unsure How much weight loss: Unsure Eating poorly because of decreased appetite: Yes Nutrition screen score: 5 Nutrition Risks: Poor intake 0-25% >4 days Patient : No : No Poor oral hygiene: No service: No Sexual orientation: Straight/Heterosexual Meds Allergies Allergy/AdvReac Type Severity Reaction Status Date / Time No Known Allergies Allergy Verified 03/23/23 18:13 Active Medications: Current Medications Acetaminophen (Acetaminophen 325 Mg Tablet) 650 mg PO Q6H PRN PRN Reason: Headache/Pain Mild Scale (1-3) Al Hydroxide/Mg Hydroxide (Magnesium Hydrox/Alum Hydrox 30 Ml Oral.Susp) 30 ml PO Q6H PRN PRN Reason: Heartburn/Nausea Atorvastatin Calcium (Atorvastatin Calcium 40 Mg Tablet) 40 mg PO DAILY [facility] Last Admin: 03/27/23 09:23 Dose: 40 mg Empagliflozin (Empagliflozin 25 Mg Tablet) 25 mg PO DAILY [facility] Last Admin: 03/27/23 09:22 Dose: 25 mg Famotidine (Famotidine 20 Mg Tablet) 20 mg PO DAILY [facility] Last Admin: 03/27/23 09:22 Dose: 20 mg Hydroxyzine HCl (Hydroxyzine Hcl 25 Mg Tablet) 25 mg PO Q6H PRN PRN Reason: Anxiety Last Admin: 03/25/23 20:34 Dose: 25 mg Lorazepam (Lorazepam 0.5 Mg Tablet) 0.5 mg PO BID PRN PRN Reason: Anxiety Last Admin: 03/26/23 20:37 Dose: 0.5 mg Magnesium Hydroxide (Milk Of Magnesia 30 Ml Oral.Susp) 30 ml PO DAILY PRN PRN Reason: Constipation Metformin HCl (Metformin Hcl 500 Mg Tablet) 500 mg PO BID [facility] Last Admin: 03/27/23 09:22 Dose: 500 mg Omeprazole (Omeprazole 20 Mg Capsule.Dr) 20 mg PO DAILY [facility] Last Admin: 03/27/23 09:22 Dose: 20 mg Rivastigmine Tartrate (Rivastigmine Tartrate 1.5 Mg Capsule) 1.5 mg PO BID [facility] Last Admin: 03/27/23 09:22 Dose: 1.5 mg Trazodone HCl (Trazodone Hcl 50 Mg Tablet) 50 mg PO BEDTIME MRX1 PRN PRN Reason: Insomnia Venlafaxine HCl (Venlafaxine Hcl 25 Mg Tablet) 75 mg PO DAILY [facility] Last Admin: 03/27/23 09:22 Dose: 75 mg Home Medications Medication Instructions Recorded Confirmed Last Taken Type atorvastatin 40 mg tablet 40 mg PO DAILY 03/23/23 03/23/23 Unknown History empagliflozin 25 mg tablet 25 mg PO DAILY 03/23/23 03/23/23 Unknown History (Jardiance) famotidine 20 mg tablet 20 mg PO DAILY 03/23/23 03/23/23 Unknown History metformin 500 mg tablet 500 mg PO BID 03/23/23 03/23/23 Unknown History omeprazole 20 mg capsule,delayed 20 mg PO DAILY 03/23/23 03/23/23 Unknown History release venlafaxine 75 mg tablet 75 mg PO DAILY 03/23/23 03/23/23 Unknown History ferrous sulfate 325 mg (65 mg 325 mg PO DAILY 03/24/23 03/24/23 Unknown History iron) tablet Physical Exam Vital Signs: Vital Signs: Last Vital Signs Temp 98.2 F 03/27/23 06:00 Pulse 76 03/27/23 06:00 Resp 18 03/27/23 06:00 BP 126/70 03/27/23 06:00 Pulse Ox 98 03/27/23 06:00 O2 Del Method Room Air 03/27/23 06:00 BMI result Body Mass Index 34.7 Neuro: Other: Alert and awake with normal spontaneity of speech fluency comprehension and affect. Elementary neurological examination is normal. Results Labs 03/23/23 15:49 03/23/23 15:49 Microbiology Microbiology Results: Noncontrast head CT did not reveal any significant abnormality. Assessment and Plan (1) Encephalopathy: Status: Acute 57 years old woman who I have seen couple of times before this hospitalization when she presented with so call cognitive difficulties. My impression had been that this was probably a primarily psychiatric or psychological disorder. It is difficult to make a diagnosis of Lewy body dementia or even dementia at this time. She needed proper evaluation of for underlying psychological/psychiatric symptomatology and some treatment. I recently started her on venlafaxine, which can be stopped or adjusted accordingly. Previously her brain MRI has not reveal any significant pathology. I also recommend an EEG to rule out any epileptic tendency. Time Spent With Patient Time: Total time managing care of this patient today ____ minutes. Procedures Date of Service Date of Service: 03/27/23
--- NOTE | 2023-03-27 15:21 | P.PNPSI_ITS ---
Subjective Subjective Date of Service: 03/27/23 Reason For Visit: hallucinations Interim History: seen with MEKA bunch. calm, cooperative. asks if this is a room where the floor raises. otherwise bland replies and comments. informed of upcoming MoCA test. per staff, confused, walking into others' rooms. agitated on eves. followed kitchen staff into [facility], seemingly innocuously. pacing overnight. slept about 7 hours. refused meds yesterday morning. Mental Status Exam Mental Status Exam Narrative: calm, cooperative, diminutive. slight PMR. speech slowed, soft, monotone. thoughts linear and variably logical. affect constricted, hypo-intense, non- labile. mood good. no SI/SIBI/HI/AVH expressed. Diagnostics Vital Signs (24Hr): Vital Signs - 24 hr 03/26/23 19:50 03/27/23 06:00 Temperature 97.4 F 98.2 F Pulse Rate 82 76 Respiratory Rate 18 18 Blood Pressure 119/80 126/70 Pulse Oximetry 96 98 Oxygen Delivery Method Room Air Room Air BMI result Body Mass Index 34.7 Labs 03/23/23 15:49 03/23/23 15:49 Medications Medications Current Medications Acetaminophen (Acetaminophen 325 Mg Tablet) 650 mg PO Q6H PRN PRN Reason: Headache/Pain Mild Scale (1-3) Al Hydroxide/Mg Hydroxide (Magnesium Hydrox/Alum Hydrox 30 Ml Oral.Susp) 30 ml PO Q6H PRN PRN Reason: Heartburn/Nausea Atorvastatin Calcium (Atorvastatin Calcium 40 Mg Tablet) 40 mg PO DAILY [facility] Last Admin: 03/27/23 09:23 Dose: 40 mg Empagliflozin (Empagliflozin 25 Mg Tablet) 25 mg PO DAILY [facility] Last Admin: 03/27/23 09:22 Dose: 25 mg Famotidine (Famotidine 20 Mg Tablet) 20 mg PO DAILY [facility] Last Admin: 03/27/23 09:22 Dose: 20 mg Hydroxyzine HCl (Hydroxyzine Hcl 25 Mg Tablet) 25 mg PO Q6H PRN PRN Reason: Anxiety Last Admin: 03/25/23 20:34 Dose: 25 mg Lorazepam (Lorazepam 0.5 Mg Tablet) 0.5 mg PO BID PRN PRN Reason: Anxiety Last Admin: 03/26/23 20:37 Dose: 0.5 mg Magnesium Hydroxide (Milk Of Magnesia 30 Ml Oral.Susp) 30 ml PO DAILY PRN PRN Reason: Constipation Metformin HCl (Metformin Hcl 500 Mg Tablet) 500 mg PO BID [facility] Last Admin: 03/27/23 09:22 Dose: 500 mg Omeprazole (Omeprazole 20 Mg Capsule.Dr) 20 mg PO DAILY [facility] Last Admin: 03/27/23 09:22 Dose: 20 mg Rivastigmine Tartrate (Rivastigmine Tartrate 1.5 Mg Capsule) 1.5 mg PO BID [facility] Last Admin: 03/27/23 09: Dose: 1.5 mg Trazodone HCl (Trazodone Hcl 50 Mg Tablet) 50 mg PO BEDTIME MRX1 PRN PRN Reason: Insomnia Venlafaxine HCl (Venlafaxine Hcl 25 Mg Tablet) 75 mg PO DAILY [facility] Last Admin: 03/27/23 09: Dose: 75 mg Allergies Allergies Allergy/AdvReac Type Severity Reaction Status Date / Time No Known Allergies Allergy Verified 03/23/23 18:13 Assessment & Plan Assessment & Plan (1) Encephalopathy: Status: Acute Code(s): G93.40 - Encephalopathy, unspecified Assessment and Plan: 57 years old woman who I have seen couple of times before this hospitalization when she presented with so call cognitive difficulties. My impression had been that this was probably a primarily psychiatric or psychological disorder. It is difficult to make a diagnosis of Lewy body dementia or even dementia at this time. She needed proper evaluation of for underlying psychological/psychiatric symptomatology and some treatment. I recently started her on venlafaxine, which can be stopped or adjusted accordingly. Previously her brain MRI has not reveal any significant pathology. I also recommend an EEG to rule out any epileptic tendency. (2) Dementia: Status: Acute Code(s): F03.90 - Unspecified dementia, unspecified severity, without behavioral dist urbance, psychotic disturbance, mood disturbance, and anxiety (3) Hallucination, visual: Status: Acute Code(s): R44.1 - Visual hallucinations Plan 03/24: R/O lewy body dementia. hold neuroleptics for now, pending neuro consult, as if pt has LBD and receives neuroleptics, irreversible injury may be caused.? pt sees Dr. Mattson and reportedly has had imaging elsewhere.? will ask Dr. Mattson to see her ROCHELLE. 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 03/25: Continue current regimen and plans.? Neurology consult pending. 03/26: Continue current regimen and plans.? Ordered low-dose Ativan yesterday. 03/27: per Dr. Mattson, MRI does not demonstrate pathology, Dx of dementia is unclear; his impression was of primary psychiatric disorder and she was started on effexor XR. EEG was recommended. will obtain MoCA, T/C low dose of risper idone at 3 pm and another at HS for what appears to be sundowning/sleep disturbance, if sufficient confidence is present that this is not LBD. Reason for continued inpatient stay Substantial Risk for: inability to function and rapid decompensation Time Spent With Patient Time: Total time managing care of this patient today _25___ minutes.
[2023-03-27] MEDS: LORazepam 0.5 MG TABLET PO (18:30)
[2023-03-27 21:30] VITALS: BP 137/74; PULSE 89; RESP 16; TEMP 36.4; O2SAT 98
[2023-03-28 08:36] VITALS: BP 121/60; PULSE 66; RESP 18; TEMP 36.6; O2SAT 97
[2023-03-28] MEDS: Rivastigmine Tartrate 1.5 MG CAPSULE PO ×2 (09:05→21:10)
[2023-03-28] MEDS: metFORMIN HCl 500 MG TABLET PO ×2 (09:05→21:10)
[2023-03-28] MEDS: Famotidine 20 MG TABLET PO (09:05)
[2023-03-28] MEDS: Empagliflozin 25 MG TABLET PO (09:05)
[2023-03-28] MEDS: Venlafaxine HCL 25 MG TABLET 75 MG PO (09:05)
[2023-03-28] MEDS: Omeprazole 20 MG CAPSULE.DR PO (09:05)
[2023-03-28] MEDS: Atorvastatin Calcium 40 MG TABLET PO (09:05)
--- NOTE | 2023-03-28 14:14 | PC.NURSE ---
Pt was administered a MOCA on 03/28/2023. Pt scored 5 out of 30, indicating severe cognitive impairment. Provider was notified of pt score.
--- NOTE | 2023-03-28 16:05 | HO.PSYCHPN ---
Subjective Subjective Date of Service: 03/28/23 Reason For Visit: hallucinations Interim History: calm, cooperative. no notable news. pleasant visit with her daughter. no complaints. per staff, visible. +grps. says she is sleeping. per staff, sundowning at 4 pm. argument with peer after wandering into his room. Mental Status Exam Mental Status Exam Narrative: calm, cooperative, diminutive. slight PMR. speech slowed, soft, monotone. thoughts linear and variably logical. affect constricted, hypo-intense, non-labile. mood good. no SI/SIBI/HI/AVH expressed. 03/28: no cogwheeling rigidity, good recovery from push Diagnostics Vital Signs (24Hr): Vital Signs - 24 hr 03/27/23 21:30 03/28/23 08:36 Temperature 97.6 F 97.8 F Pulse Rate 89 66 Respiratory Rate 16 18 Blood Pressure 137/74 121/60 Pulse Oximetry 98 97 Oxygen Delivery Method Room Air Room Air BMI result Body Mass Index 34.7 Labs 03/23/23 15:49 03/23/23 15:49 Medications Medications Current Medications Acetaminophen (Acetaminophen 325 Mg Tablet) 650 mg PO Q6H PRN PRN Reason: Headache/Pain Mild Scale (1-3) Al Hydroxide/Mg Hydroxide (Magnesium Hydrox/Alum Hydrox 30 Ml Oral.Susp) 30 ml PO Q6H PRN PRN Reason: Heartburn/Nausea Atorvastatin Calcium (Atorvastatin Calcium 40 Mg Tablet) 40 mg PO DAILY [facility] Last Admin: 03/28/23 09:05 Dose: 40 mg Empagliflozin (Empagliflozin 25 Mg Tablet) 25 mg PO DAILY [facility] Last Admin: 03/28/23 09:05 Dose: 25 mg Famotidine (Famotidine 20 Mg Tablet) 20 mg PO DAILY [facility] Last Admin: 03/28/23 09:05 Dose: 20 mg Hydroxyzine HCl (Hydroxyzine Hcl 25 Mg Tablet) 25 mg PO Q6H PRN PRN Reason: Anxiety Last Admin: 03/25/23 20:34 Dose: 25 mg Lorazepam (Lorazepam 0.5 Mg Tablet) 0.5 mg PO BID PRN PRN Reason: Anxiety Last Admin: 03/27/23 18:30 Dose: 0.5 mg Magnesium Hydroxide (Milk Of Magnesia 30 Ml Oral.Susp) 30 ml PO DAILY PRN PRN Reason: Constipation Metformin HCl (Metformin Hcl 500 Mg Tablet) 500 mg PO BID [facility] Last Admin: 03/28/23 09:05 Dose: 500 mg Omeprazole (Omeprazole 20 Mg Capsule.) 20 mg PO DAILY [facility] Last Admin: 03/28/23 09:05 Dose: 20 mg Rivastigmine Tartrate (Rivastigmine Tartrate 1.5 Mg Capsule) 1.5 mg PO BID [facility] Last Admin: 03/28/23 09:05 Dose: 1.5 mg Trazodone HCl (Trazodone Hcl 50 Mg Tablet) 50 mg PO BEDTIME MRX1 PRN PRN Reason: Insomnia Venlafaxine HCl (Venlafaxine Hcl 25 Mg Tablet) 75 mg PO DAILY [facility] Last Admin: 03/28/23 09:05 Dose: 75 mg Allergies Allergies Allergy/AdvReac Type Severity Reaction Status Date / Time No Known Allergies Allergy Verified 03/23/23 18:13 Assessment & Plan Assessment & Plan (1) Encephalopathy: Status: Acute Code(s): G93.40 - Encephalopathy, unspecified Assessment and Plan: 57 years old woman who I have seen couple of times before this hospitalization when she presented with so call cognitive difficulties. My impression had been that this was probably a primarily psychiatric or psychological disorder. It is difficult to make a diagnosis of Lewy body dementia or even dementia at this time. She needed proper evaluation of for underlying psychological/psychiatric symptomatology and some treatment. I recently started her on venlafaxine, which can be stopped or adjusted accordingly. Previously her brain MRI has not reveal any significant pathology. I also recommend an EEG to rule out any epileptic tendency. (2) Dementia: Status: Acute Code(s): F03.90 - Unspecified dementia, unspecified severity, without behavioral disturbance, psychotic disturbance, mood disturbance, and anxiety (3) Hallucination, visual: Status: Acute Code(s): R44.1 - Visual hallucinations Plan 03/24: R/O lewy body dementia. hold neuroleptics for now, pending neuro consult, as if pt has LBD and receives neuroleptics, irreversible injury may be caused.? pt sees Dr. Mattson and reportedly has had imaging elsewhere.? will ask Dr. Mattson to see her ROCHELLE. 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 03/25: Continue current regimen and plans.? Neurology consult pending. 03/26: Continue current regimen and plans.? Ordered low-dose Ativan yesterday. 03/27: per Dr. Mattson, MRI does not demonstrate pathology, Dx of dementia is unclear; his impression was of primary psychiatric disorder and she was started on effexor XR. EEG was recommended. will obtain MoCA, T/C low dose of risperidone at 3 pm and another at HS for what appears to be sundowning/sleep disturbance, if sufficient confidence is present that this is not LBD. 03/28: MoCA 04/04. extremely poor visuospatial/executive fxn. does not appear delirious, general comportment would not betray such a low score. EEG today, awaiting read. T/C increasing dose of antidepressant medication. family mtg with SW and pt's daughter. Reason for continued inpatient stay Substantial Risk for: inability to function and rapid decompensation Time Spent With Patient Time: Total time managing care of this patient today __35__ minutes.
[2023-03-28 20:10] VITALS: BP 118/62; PULSE 70; RESP 16; TEMP 36.4; O2SAT 97
[2023-03-28 21:01] LABS: Glucose, Whole Blood 207 mg/dL (60-115)
[2023-03-29 08:02] VITALS: RESP 18
--- NOTE | 2023-03-29 09:38 | PC.NURSE ---
Patient refused medications and vital signs on 3 different approaches. Provider alerted.
[2023-03-29] MEDS: Venlafaxine HCL 25 MG TABLET 37.5 MG PO (11:44)
[2023-03-29] MEDS: metFORMIN HCl 500 MG TABLET PO ×2 (11:45→21:10)
[2023-03-29] MEDS: Omeprazole 20 MG CAPSULE.DR PO (11:45)
[2023-03-29] MEDS: Empagliflozin 25 MG TABLET PO (11:45)
[2023-03-29] MEDS: Famotidine 20 MG TABLET PO (11:45)
[2023-03-29] MEDS: Atorvastatin Calcium 40 MG TABLET PO (11:45)
[2023-03-29] MEDS: Rivastigmine Tartrate 1.5 MG CAPSULE PO ×2 (11:45→21:10)
--- NOTE | 2023-03-29 13:56 | HO.PSYCHPN ---
Subjective Subjective Date of Service: 03/29/23 Reason For Visit: hallucinations Interim History: calm, cooperative, pleasant. able to recite her and town of residence. unable to say what town she is in, identifies the time as september,. attempted a discussion of the recommended LP procedure today, and pt was unable to grasp and retain even very basic information about the procedure, such as indicating that her head would be operated upon in order to access her brain even after the fact that tapping into a fluid reservoir at the base of the spine and putting a needle into her lower back were . due to her extremely poor cognitive function presently, the healthcare proxy must be invoked. no complaints or concerns today. per staff, active and appropriate yesterday. relaxed after EEG. denying psych Sx. up most of the night, slept only about 1 hour. refused meds this morning, as well as breakfast. Mental Status Exam Mental Status Exam Narrative: calm, cooperative, diminutive. slight PMR. speech nml rate, decr loudness, decr prosody. thoughts linear and grossly logical. affect constricted, hypo-intense, non-labile. no SI/SIBI/HI/AVH expressed. 03/28: no cogwheeling rigidity, good recovery from push 03/29: no shuffling gait Diagnostics Vital Signs (24Hr): Vital Signs - 24 hr 03/28/23 20:10 03/29/23 08:02 Temperature 97.6 F Pulse Rate 70 Respiratory Rate 16 18 Blood Pressure 118/62 Pulse Oximetry 97 Oxygen Delivery Method Room Air BMI result Body Mass Index 34.7 Labs 03/23/23 15:49 03/23/23 15:49 Labs: Laboratory Results - last 48 hr 03/28/23 20:57 POC Glucose 207 H Medications Medications Current Medications Acetaminophen (Acetaminophen 325 Mg Tablet) 650 mg PO Q6H PRN PRN Reason: Headache/Pain Mild Scale (1-3) Al Hydroxide/Mg Hydroxide (Magnesium Hydrox/Alum Hydrox 30 Ml Oral.Susp) 30 ml PO Q6H PRN PRN Reason: Heartburn/Nausea Atorvastatin Calcium (Atorvastatin Calcium 40 Mg Tablet) 40 mg PO DAILY [facility] Last Admin: 03/29/23 11:45 Dose: 40 mg Empagliflozin (Empagliflozin 25 Mg Tablet) 25 mg PO DAILY [facility] Last Admin: 03/29/23 11:45 Dose: 25 mg Famotidine (Famotidine 20 Mg Tablet) 20 mg PO DAILY [facility] Last Admin: 03/29/23 11:45 Dose: 20 mg Hydroxyzine HCl (Hydroxyzine Hcl 25 Mg Tablet) 25 mg PO Q6H PRN PRN Reason: Anxiety Last Admin: 03/25/23 20:34 Dose: 25 mg Lorazepam (Lorazepam 0.5 Mg Tablet) 0.5 mg PO BID PRN PRN Reason: Anxiety Last Admin: 03/27/23 18:30 Dose: 0.5 mg Magnesium Hydroxide (Milk Of Magnesia 30 Ml Oral.Susp) 30 ml PO DAILY PRN PRN Reason: Constipation Metformin HCl (Metformin Hcl 500 Mg Tablet) 500 mg PO BID [facility] Last Admin: 03/29/23 11:45 Dose: 500 mg Omeprazole (Omeprazole 20 Mg Capsule.Dr) 20 mg PO DAILY [facility] Last Admin: 03/29/23 11:45 Dose: 20 mg Rivastigmine Tartrate (Rivastigmine Tartrate 1.5 Mg Capsule) 1.5 mg PO BID [facility] Last Admin: 03/29/23 11:45 Dose: 1.5 mg Trazodone HCl (Trazodone Hcl 50 Mg Tablet) 50 mg PO BEDTIME MRX1 PRN PRN Reason: Insomnia Venlafaxine HCl (Venlafaxine Hcl 25 Mg Tablet) 37.5 mg PO DAILY [facility] Last Admin: 03/29/23 11:44 Dose: 37.5 mg Allergies Allergies Allergy/AdvReac Type Severity Reaction Status Date / Time No Known Allergies Allergy Verified 03/23/23 18:13 Assessment & Plan Assessment & Plan (1) Encephalopathy: Status: Acute Code(s): G93.40 - Encephalopathy, unspecified Assessment and Plan: 57 years old woman who I have seen couple of times before this hospitalization when she presented with so call cognitive difficulties. My impression had been that this was probably a primarily psychiatric or psychological disorder. It is difficult to make a diagnosis of Lewy body dementia or even dementia at this time. She needed proper evaluation of for underlying psychological/psychiatric symptomatology and some treatment. I recently started her on venlafaxine, which can be stopped or adjusted accordingly. Previously her brain MRI has not reveal any significant pathology. I also recommend an EEG to rule out any epileptic tendency. (2) Dementia: Status: Acute Code(s): F03.90 - Unspecified dementia, unspecified severity, without behavioral disturbance, psychotic disturbance, mood disturbance, and anxiety (3) Hallucination, visual: Status: Acute Code(s): R44.1 - Visual hallucinations Plan 03/24: R/O lewy body dementia. hold neuroleptics for now, pending neuro consult, as if pt has LBD and receives neuroleptics, irreversible injury may be caused.? pt sees Dr. Mattson and reportedly has had imaging elsewhere.? will ask Dr. Mattson to see her ROCHELLE. 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 03/25: Continue current regimen and plans.? Neurology consult pending. 03/26: Continue current regimen and plans.? Ordered low-dose Ativan yesterday. 03/27: per Dr. Mattson, MRI does not demonstrate pathology, Dx of dementia is unclear; his impression was of primary psychiatric disorder and she was started on effexor XR. EEG was recommended. will obtain MoCA, T/C low dose of risperidone at 3 pm and another at HS for what appears to be sundowning/sleep disturbance, if sufficient confidence is present that this is not LBD. 03/28: MoCA 04/04. extremely poor visuospatial/executive fxn. does not appear delirious, general comportment would not betray such a low score. EEG today, awaiting read. T/C increasing dose of antidepressant medication. family mtg with SW and pt's daughter. 03/29: EEG read as WNL. HCP obtained from daughter and invoked. considering transfer to neuro unit for more detailed neuro w/u rather than continuing neuro w/u here. Reason for continued inpatient stay Substantial Risk for: inability to function Time Spent With Patient Time: Total time managing care of this patient today __35__ minutes.
[2023-03-29 20:30] VITALS: BP 177/77; PULSE 89; RESP 18; TEMP 36.4; O2SAT 100
[2023-03-29] MEDS: LORazepam 0.5 MG TABLET PO (21:33)
[2023-03-29 21:35] LABS: Glucose, Whole Blood 249 mg/dL (60-115)
[2023-03-29 22:00] VITALS: BP 169/82; RESP 16; O2SAT 96
[2023-03-29 22:46] VITALS: BP 139/96; PULSE 92; RESP 18
[2023-03-29] MEDS: traZODone HCL 50 MG TABLET PO (23:40)
[2023-03-30 07:50] LABS: Glucose, Whole Blood 147 mg/dL (60-115)
[2023-03-30 08:37] VITALS: BP 167/80; PULSE 73; TEMP 36.2; O2SAT 99
[2023-03-30 09:21] LABS: Platelet Count 264 X10*3/uL (160-400)
[2023-03-30 09:28] LABS: INTERNATIONAL NORM RATIO 0.8 (0.9-1.1); Prothrombin Time 9.6 SEC (10.0-13.1)
[2023-03-30 09:35] LABS: Creatinine Clr Calc Pharmacy 75.2; Estimated Glomerular Filt Rate > 60
[2023-03-30] MEDS: Rivastigmine Tartrate 1.5 MG CAPSULE PO ×2 (09:50→22:37)
[2023-03-30] MEDS: Empagliflozin 25 MG TABLET PO (09:51)
[2023-03-30] MEDS: metFORMIN HCl 500 MG TABLET PO ×2 (09:51→22:37)
[2023-03-30] MEDS: Omeprazole 20 MG CAPSULE.DR PO (09:51)
[2023-03-30] MEDS: Atorvastatin Calcium 40 MG TABLET PO (09:51)
[2023-03-30] MEDS: Famotidine 20 MG TABLET PO (09:51)
--- NOTE | 2023-03-30 10:26 | PM.NEUROCN ---
History of Present Illness Data of Consult Service Date: 03/30/23 Primary Care Provider: Kenroy Antonio MD HPI Reason for consult: Encephalopathy 57 years old woman who suffered from significant cognitive and emotional difficulties presently admitted on M5 I was asked to see her again. Ice are few days ago. There was no sign of any active epileptic type of episode or any focal weakness. She was not complaining of any pain. Review of Systems Review of Systems: No cold or flu-like illness PMFSH Past Medical History Medical History Diabetes GERD (gastroesophageal reflux disease) Social History Social History Household Members: Family Housing: Other Housing Other:: PATIENT CURRENTLY SLEEPING ON BROTHERS COUCH Do you presently have visiting nurse or other home services: No Unable to assess alcohol history related to: Unknown Patient Tobacco Use Status: Tobacco use Unknown Use of substances other than those prescribed or required for medical reasons: Unknown Currently Displaying Signs/Symptoms of Drug Intoxication Withdrawal: No Do you feel safe in your current relationship?: No Current Relationship Advance Directives: No Advance Directives Information Provided: No Healthcare Proxy: Yes (Isabel Wilkes (Daughter)) Guardian: No Do you have thoughts of harming others: None Do you have a plan to hurt others: No Plan Recently lost weight without trying: Unsure How much weight loss: Unsure Eating poorly because of decreased appetite: Yes Nutrition screen score: 5 Nutrition Risks: Poor intake 0-25% >4 days Patient : No : No Poor oral hygiene: No service: No Sexual orientation: Straight/Heterosexual Meds Allergies Allergy/AdvReac Type Severity Reaction Status Date / Time No Known Allergies Allergy Verified 03/23/23 18:13 Active Medications: Current Medications Acetaminophen (Acetaminophen 325 Mg Tablet) 650 mg PO Q6H PRN PRN Reason: Headache/Pain Mild Scale (1-3) Al Hydroxide/Mg Hydroxide (Magnesium Hydrox/Alum Hydrox 30 Ml Oral.Susp) 30 ml PO Q6H PRN PRN Reason: Heartburn/Nausea Atorvastatin Calcium (Atorvastatin Calcium 40 Mg Tablet) 40 mg PO DAILY [facility] Last Admin: 03/30/23 09:51 Dose: 40 mg Empagliflozin (Empagliflozin 25 Mg Tablet) 25 mg PO DAILY [facility] Last Admin: 03/30/23 09:51 Dose: 25 mg Famotidine (Famotidine 20 Mg Tablet) 20 mg PO DAILY [facility] Last Admin: 03/30/23 09:51 Dose: 20 mg Hydroxyzine HCl (Hydroxyzine Hcl 25 Mg Tablet) 25 mg PO Q6H PRN PRN Reason: Anxiety Last Admin: 03/25/23 20:34 Dose: 25 mg Lorazepam (Lorazepam 0.5 Mg Tablet) 0.5 mg PO BID PRN PRN Reason: Anxiety Last Admin: 03/29/23 21:33 Dose: 0.5 mg Magnesium Hydroxide (Milk Of Magnesia 30 Ml Oral.Susp) 30 ml PO DAILY PRN PRN Reason: Constipation Metformin HCl (Metformin Hcl 500 Mg Tablet) 500 mg PO BID [facility] Last Admin: 03/30/23 09:51 Dose: 500 mg Omeprazole (Omeprazole 20 Mg Capsule.Dr) 20 mg PO DAILY [facility] Last Admin: 03/30/23 09:51 Dose: 20 mg Rivastigmine Tartrate (Rivastigmine Tartrate 1.5 Mg Capsule) 1.5 mg PO BID [facility] Last Admin: 03/30/23 09:50 Dose: 1.5 mg Trazodone HCl (Trazodone Hcl 50 Mg Tablet) 50 mg PO BEDTIME MRX1 PRN PRN Reason: Insomnia Last Admin: 03/29/23 23:40 Dose: 50 mg Home Medications Medication Instructions Recorded Confirmed Last Taken Type atorvastatin 40 mg tablet 40 mg PO DAILY 03/23/23 03/23/23 Unknown History empagliflozin 25 mg tablet 25 mg PO DAILY 03/23/23 03/23/23 Unknown History (Jardiance) famotidine 20 mg tablet 20 mg PO DAILY 03/23/23 03/23/23 Unknown History metformin 500 mg tablet 500 mg PO BID 03/23/23 03/23/23 Unknown History omeprazole 20 mg capsule,delayed 20 mg PO DAILY 03/23/23 03/23/23 Unknown History release venlafaxine 75 mg tablet 75 mg PO DAILY 03/23/23 03/23/23 Unknown History ferrous sulfate 325 mg (65 mg 325 mg PO DAILY 03/24/23 03/24/23 Unknown History iron) tablet Physical Exam Vital Signs: Vital Signs: Last Vital Signs Temp 97.2 F 03/30/23 08:37 Pulse 73 03/30/23 08:37 Resp 18 03/29/23 22:46 BP 167/80 H 03/30/23 08:37 Pulse Ox 99 03/30/23 08:37 O2 Del Method Room Air 03/30/23 08:37 BMI result Body Mass Index 34.7 Neuro: Other: She is alert and awake looking around and space but made eye contact and seemed confused. She said that she recognized me and asked me when brain surgery was going to happen. When I question her about what brain surgery? She stated that I told her that there was going to be brain surgery. She knew where she was. When I asked her how her mood was she kept quite. Face was flat. Elementary neurological examination did not reveal any significant abnormality. Results Labs 03/30/23 08:52 03/30/23 08:52 Labs: Short CBC 03/30/23 Range/Units 08:52 Plt Count 264 (160-400) X10*3/uL BMP 03/30/23 08:52 Creatinine 0.85 Microbiology Microbiology Results: EEG did not reveal any significant abnormality. Tox screen was negative. Assessment and Plan (1) Encephalopathy: Status: Acute 57 years old woman with somewhat rapidly progressive neuropsychiatric symptomatology. As I discussed before, we should do few investigations to rule out any treatable causes or to rule out rapidly progressive dementing illnesses. In this category, infections an inflammatory conditions including Creutzfeld Max disease needed to be ruled out. Now days, this last condition can be mostly determined by MRI but her MRI in November did not reveal any such abnormality. I believe it is reasonable to repeat noncontrast MRI of brain to rule out any DWI sequence abnormalities. If that is negative, a lumbar puncture is recommended to analyze CSF including sending for CJD markers and dementia markers. In the meantime, it might be reasonable to try small dose of neuroleptics specially because of overt delusional thinking. Time Spent With Patient Time: Total time managing care of this patient today ____ minutes. Procedures Date of Service Date of Service: 03/30/23
--- NOTE | 2023-03-30 11:18 | PC.NURSE ---
late entry: this software writer accessed patient's chart to research for possible lumbar puncture
[2023-03-30 11:52] VITALS: BMI 31.2
--- NOTE | 2023-03-30 15:15 | P.PNPSI_ITS ---
Subjective Subjective Date of Service: 03/30/23 Reason For Visit: hallucinations Interim History: no change in presentation. per staff, distractable, confused. poor memory. attending groups. getting LP today. Mental Status Exam Mental Status Exam Narrative: calm, cooperative, diminutive. slight PMR. speech nml rate, decr loudness, decr prosody, decr amount. thoughts linear and grossly logical. affect constricted, hypo-intense, non-labile. no SI/SIBI/HI/AVH expressed. 03/28: no cogwheeling rigidity, good recovery from push 03/29: no shuffling gait Diagnostics Vital Signs (24Hr): Vital Signs - 24 hr 03/29/23 20:30 03/29/23 22:00 03/29/23 22:46 Temperature 97.6 F Pulse Rate 89 92 Respiratory Rate 18 16 18 Blood Pressure 177/77 H 169/82 H 139/96 H Pulse Oximetry 100 96 Oxygen Delivery Method Room Air Room Air 03/30/23 08:37 Temperature 97.2 F Pulse Rate 73 Respiratory Rate Blood Pressure 167/80 H Pulse Oximetry 99 Oxygen Delivery Method Room Air BMI result Body Mass Index 31.2 Labs 03/30/23 08:52 03/30/23 08:52 Labs: Laboratory Results - last 48 hr 03/28/23 03/29/23 03/30/23 20:57 21:10 07:45 Plt Count PT INR Creatinine Estim Creat Clear Calc Estimated GFR POC Glucose 207 H 249 H 147 H 03/30/23 03/30/23 03/30/23 08:52 08:52 08:52 Plt Count 264 PT 9.6 L INR 0.8 L Creatinine 0.85 Estim Creat Clear Calc 75.2 Estimated GFR > 60 POC Glucose Medications Medications Current Medications Acetaminophen (Acetaminophen 325 Mg Tablet) 650 mg PO Q6H PRN PRN Reason: Headache/Pain Mild Scale (1-3) Al Hydroxide/Mg Hydroxide (Magnesium Hydrox/Alum Hydrox 30 Ml Oral.Susp) 30 ml PO Q6H PRN PRN Reason: Heartburn/Nausea Atorvastatin Calcium (Atorvastatin Calcium 40 Mg Tablet) 40 mg PO DAILY [facility] Last Admin: 03/30/23 09:51 Dose: 40 mg Empagliflozin (Empagliflozin 25 Mg Tablet) 25 mg PO DAILY [facility] Last Admin: 03/30/23 09:51 Dose: 25 mg Famotidine (Famotidine 20 Mg Tablet) 20 mg PO DAILY [facility] Last Admin: 03/30/23 09:51 Dose: 20 mg Hydroxyzine HCl (Hydroxyzine Hcl 25 Mg Tablet) 25 mg PO Q6H PRN PRN Reason: Anxiety Last Admin: 03/25/23 20:34 Dose: 25 mg Magnesium Hydroxide (Milk Of Magnesia 30 Ml Oral.Susp) 30 ml PO DAILY PRN PRN Reason: Constipation Metformin HCl (Metformin Hcl 500 Mg Tablet) 500 mg PO BID [facility] Last Admin: 03/30/23 09:51 Dose: 500 mg Omeprazole (Omeprazole 20 Mg Capsule.Dr) 20 mg PO DAILY [facility] Last Admin: 03/30/23 09:51 Dose: 20 mg Rivastigmine Tartrate (Rivastigmine Tartrate 1.5 Mg Capsule) 1.5 mg PO BID [facility] Last Admin: 03/30/23 09:50 Dose: 1.5 mg Trazodone HCl (Trazodone Hcl 50 Mg Tablet) 50 mg PO BEDTIME MRX1 PRN PRN Reason: Insomnia Last Admin: 03/29/23 23:40 Dose: 50 mg Allergies Allergies Allergy/AdvReac Type Severity Reaction Status Date / Time No Known Allergies Allergy Verified 03/23/23 18:13 Assessment & Plan Assessment & Plan (1) Encephalopathy: Status: Acute Code(s): G93.40 - Encephalopathy, unspecified Assessment and Plan: 57 years old woman with somewhat rapidly progressive neuropsychiatric symptomatology. As I discussed before, we should do few investigations to rule out any treatable causes or to rule out rapidly progressive dementing illnesses. In this category, infections an inflammatory conditions including Creutzfeld Max disease needed to be ruled out. Now days, this last condition can be mostly determined by MRI but her MRI in November did not reveal any such abnormality. I believe it is reasonable to repeat noncontrast MRI of brain to rule out any DWI sequence abnormalities. If that is negative, a lumbar puncture is recommended to analyze CSF including sending for CJD markers and dementia markers. In the meantime, it might be reasonable to try small dose of neuroleptics specially because of overt delusional thinking. (2) Dementia: Status: Acute Code(s): F03.90 - Unspecified dementia, unspecified severity, without behavioral disturbance, psychotic disturbance, mood disturbance, and anxiety (3) Hallucination, visual: Status: Acute Code(s): R44.1 - Visual hallucinations Plan 03/24:? R/O lewy body dementia.? hold neuroleptics for now, pending neuro consult, as if pt has LBD and receives neuroleptics, irreversible injury may be caused.? pt sees Dr. Mattson and reportedly has had imaging elsewhere.? will ask Dr. Mattson to see her ROCHELLE.? 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 03/25: Continue current regimen and plans.? Neurology consult pending. 03/26: Continue current regimen and plans.? Ordered low-dose Ativan yesterday. 03/27:? per Dr. Mattson, MRI does not demonstrate pathology, Dx of dementia is unclear; his impression was of primary psychiatric disorder and she was started on effexor XR.? EEG was recommended.? will obtain MoCA, T/C low dose of r isperidone? at 3 pm and another at HS for what appears to be sundowning/sleep disturbance, if sufficient confidence is present that this is not LBD. 03/28:? MoCA 04/04.? extremely poor visuospatial/executive fxn.? does not appear delirious, general comportment would not betray such a low score.? EEG today, awaiting read.? T/C increasing dose of antidepressant medication.? family mtg with SW and pt's daughter. 03/29:? EEG read as WNL.? HCP obtained from daughter and invoked.? considering transfer to neuro unit for more detailed neuro w/u rather than continuing neuro w/u here. after discussion with Dr. Mattson, plan made to get LP for dementia markers and other. 03/30: Dr. Mattson added recommendations for repeat MRI as well as adding CJD testing to CSF. LP conducted today and CJD to be sent out; will need to wait for NEG result on that prior to repeat LP for CSF to do additional studies. no change in presentation today. MRI deferred to tomorrow due to lack of time. Reason for continued inpatient stay Substantial Risk for: inability to function Time Spent With Patient Time: Total time managing care of this patient today _35___ minutes.
--- NOTE | 2023-03-30 16:55 | PC.NURSE ---
T/W received report from Lior DOUGLAS after pt had a Lumbar Puncture procedure, pt tolerated procedure w/o difficulties. Pt was alert and awake, VSS, and normal neuro-checks. Pt was eating and drinking fluids w/o difficulty (480cc). Pt voided x1 and had 1 lg stool. Patient is to remain on bedrest until the am, with bathroom privileges. Also pt is allowed to sit up to eat. Will continue to monitor for tingling and numbness in extremities.
--- NOTE | 2023-03-30 17:19 | PC.NURSE ---
Pt transferred from PACU to M3. VS: 97.8 69 125/59 97%. Pt is alert and oriented to self, appears confused as to why she's here which is her baseline. RN provided teaching & encouraged bed rest with ability to get up to use the bathroom or eat. Pt verbalized understanding.
[2023-03-30 20:26] LABS: Glucose, Whole Blood 370 mg/dL (60-115)
[2023-03-30 20:33] VITALS: BP 155/85; PULSE 91; RESP 18; TEMP 36.7; O2SAT 96
[2023-03-30 21:27] LABS: Glucose, Whole Blood 356 mg/dL (60-115)
[2023-03-30] MEDS: OLANZapine 5 MG TABLET PO (22:38)
--- NOTE | 2023-03-31 02:03 | PC.NURSE ---
All PM meds were on HOLD. bingo caller(EL) okayed giving these meds as unscheduled tonight.
[2023-03-31 07:41] LABS: Glucose, Whole Blood 161 mg/dL (60-115)
--- NOTE | 2023-03-31 14:30 | HO.PSYCHPN ---
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 later agreed to meet with MD. no change in presentation. very poor memory function, poor orientation. per staff, irritable this morning. more pleasant yesterday. refused meds this morning. FSBS 167. 370 last NOC, 356. wandering, banging on hallway window. Mental Status Exam Mental Status Exam Narrative: calm, cooperative, diminutive. slight PMR. speech decr rate, decr loudness, decr prosody, decr amount. thoughts linear and grossly logical. affect constricted, hypo-intense, non-labile. no SI/SIBI/HI/AVH expressed. gross cognitive impairment. 03/28: no cogwheeling rigidity, good recovery from push 03/29: no shuffling gait Diagnostics Vital Signs (24Hr): Vital Signs - 24 hr 03/30/23 20:33 Temperature 98.0 F Pulse Rate 91 Respiratory Rate 18 Blood Pressure 155/85 H Pulse Oximetry 96 Oxygen Delivery Method Room Air BMI result Body Mass Index 31.2 Labs 03/30/23 08:52 03/30/23 08:52 Labs: Laboratory Results - last 48 hr 03/29/23 03/30/23 03/30/23 21:10 07:45 08:52 Plt Count 264 PT INR Creatinine Estim Creat Clear Calc Estimated GFR POC Glucose 249 H 147 H 03/30/23 03/30/23 03/30/23 08:52 08:52 20:22 Plt Count PT 9.6 L INR 0.8 L Creatinine 0.85 Estim Creat Clear Calc 75.2 Estimated GFR > 60 POC Glucose 370 H* 03/30/23 03/31/23 21:21 07:36 Plt Count PT INR Creatinine Estim Creat Clear Calc Estimated GFR POC Glucose 356 H* 161 H Medications Medications Current Medications Acetaminophen (Acetaminophen 325 Mg Tablet) 650 mg PO Q6H PRN PRN Reason: Headache/Pain Mild Scale (1-3) Al Hydroxide/Mg Hydroxide (Magnesium Hydrox/Alum Hydrox 30 Ml Oral.Susp) 30 ml PO Q6H PRN PRN Reason: Heartburn/Nausea Atorvastatin Calcium (Atorvastatin Calcium 40 Mg Tablet) 40 mg PO DAILY [facility] Last Admin: 03/31/23 10:05 Dose: Not Given Empagliflozin (Empagliflozin 25 Mg Tablet) 25 mg PO DAILY [facility] Last Admin: 03/31/23 10:05 Dose: Not Given Famotidine (Famotidine 20 Mg Tablet) 20 mg PO DAILY [facility] Last Admin: 03/31/23 10:05 Dose: Not Given Hydroxyzine HCl (Hydroxyzine Hcl 25 Mg Tablet) 25 mg PO Q6H PRN PRN Reason: Anxiety Last Admin: 03/25/23 20:34 Dose: 25 mg Lorazepam (Lorazepam 0.5 Mg Tablet) 0.5 mg PO BID PRN PRN Reason: Anxiety Magnesium Hydroxide (Milk Of Magnesia 30 Ml Oral.Susp) 30 ml PO DAILY PRN PRN Reason: Constipation Metformin HCl (Metformin Hcl 500 Mg Tablet) 500 mg PO BID [facility] Last Admin: 03/31/23 10:05 Dose: Not Given Olanzapine (Olanzapine 5 Mg Tablet) 5 mg PO BEDTIME [facility] Last Admin: 03/30/23 22:38 Dose: 5 mg Omeprazole (Omeprazole 20 Mg Capsule.Dr) 20 mg PO DAILY [facility] Last Admin: 03/31/23 10:05 Dose: Not Given Rivastigmine Tartrate (Rivastigmine Tartrate 1.5 Mg Capsule) 1.5 mg PO BID [facility] Last Admin: 03/31/23 10:05 Dose: Not Given Trazodone HCl (Trazodone Hcl 50 Mg Tablet) 50 mg PO BEDTIME MRX1 PRN PRN Reason: Insomnia Last Admin: 03/29/23 23:40 Dose: 50 mg Allergies Allergies Allergy/AdvReac Type Severity Reaction Status Date / Time No Known Allergies Allergy Verified 03/23/23 18:13 Assessment & Plan Assessment & Plan (1) Encephalopathy: Status: Acute Code(s): G93.40 - Encephalopathy, unspecified Assessment and Plan: 57 years old woman with somewhat rapidly progressive neuropsychiatric symptomatology. As I discussed before, we should do few investigations to rule out any treatable causes or to rule out rapidly progressive dementing illnesses. In this category, infections an inflammatory conditions including Creutzfeld Max disease needed to be ruled out. Now days, this last condition can be mostly determined by MRI but her MRI in November did not reveal any such abnormality. I believe it is reasonable to repeat noncontrast MRI of brain to rule out any DWI sequence abnormalities. If that is negative, a lumbar puncture is recommended to analyze CSF including sending for CJD markers and dementia markers. In the meantime, it might be reasonable to try small dose of neuroleptics specially because of overt delusional thinking. (2) Dementia: Status: Acute Code(s): F03.90 - Unspecified dementia, unspecified severity, without behavioral disturbance, psychotic disturbance, mood disturbance, and anxiety (3) Hallucination, visual: Status: Acute Code(s): R44.1 - Visual hallucinations Plan 03/24:? R/O lewy body dementia.? hold neuroleptics for now, pending neuro consult, as if pt has LBD and receives neuroleptics, irreversible injury may be caused.? pt sees Dr. Mattson and reportedly has had imaging elsewhere.? will ask Dr. Mattson to see her ROCHELLE.? 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 03/25: Continue current regimen and plans.? Neurology consult pending. 03/26: Continue current regimen and plans.? Ordered low-dose Ativan yesterday. 03/27:? per Dr. Mattson, MRI does not demonstrate pathology, Dx of dementia is unclear; his impression was of primary psychiatric disorder and she was started on effexor XR.? EEG was recommended.? will obtain MoCA, T/C low dose of risperidone? at 3 pm and another at HS for what appears to be sundowning/sleep disturbance, if sufficient confidence is present that this is not LBD. 03/28:? MoCA 04/04.? extremely poor visuospatial/executive fxn.? does not appear delirious, general comportment would not betray such a low score.? EEG today, awaiting read.? T/C increasing dose of antidepressant medication.? family mtg with SW and pt's daughter. 03/29:? EEG read as WNL.? HCP obtained from daughter and invoked.? considering transfer to neuro unit for more detailed neuro w/u rather than continuing neuro w/u here. after discussion with Dr. Mattson, plan made to get LP for dementia markers and other. 03/30: Dr. Mattson added recommendations for repeat MRI as well as adding CJD testing to CSF. LP conducted today and CJD to be sent out; will need to wait for NEG result on that prior to repeat LP for CSF to do additional studies. no change in presentation today. MRI deferred to tomorrow due to lack of time. 03/31: MRI today. no change in presentation. level of consciousness seems stable, but mood appears to vary. no adverse reaction to zyprexa last night. 2.5 mg PRNs added today for agitation. Reason for continued inpatient stay Substantial Risk for: inability to function and rapid decompensation Time Spent With Patient Time: Total time managing care of this patient today __25__ minutes.
[2023-03-31 20:10] LABS: Glucose, Whole Blood 264 mg/dL (60-115)
[2023-03-31 20:27] VITALS: BP 158/73; PULSE 86; RESP 16; TEMP 36.8; O2SAT 98
[2023-03-31] MEDS: Rivastigmine Tartrate 1.5 MG CAPSULE PO (20:34)
[2023-03-31] MEDS: OLANZapine 5 MG TABLET PO (20:34)
[2023-03-31] MEDS: metFORMIN HCl 500 MG TABLET PO (20:34)
[2023-04-01] MEDS: Acetaminophen 325 MG TABLET 650 MG PO (00:02)
[2023-04-01 08:21] VITALS: BP 143/64; PULSE 65
[2023-04-01 08:46] LABS: Glucose, Whole Blood 174 mg/dL (60-115)
[2023-04-01] MEDS: Empagliflozin 25 MG TABLET PO (09:03)
[2023-04-01] MEDS: Famotidine 20 MG TABLET PO (09:03)
[2023-04-01] MEDS: Rivastigmine Tartrate 1.5 MG CAPSULE PO ×2 (09:03→20:30)
[2023-04-01] MEDS: Omeprazole 20 MG CAPSULE.DR PO (09:03)
[2023-04-01] MEDS: Atorvastatin Calcium 40 MG TABLET PO (09:03)
[2023-04-01] MEDS: metFORMIN HCl 500 MG TABLET PO ×2 (09:03→20:30)
--- NOTE | 2023-04-01 14:22 | HO.PSYCHPN ---
Subjective Subjective Date of Service: 04/01/23 Reason For Visit: hallucinations Interim History: stable presentation. disoriented, depressed, anxious. per staff, tearful, withdrawn. med-compliant. Mental Status Exam Mental Status Exam Narrative: calm, cooperative, diminutive. slight PMR. speech decr rate, decr loudness, decr prosody, decr amount. thoughts linear and grossly logical. affect constricted, hypo-intense, non-labile. no SI/SIBI/HI/AVH expressed. gross cognitive impairment. 03/28: no cogwheeling rigidity, good recovery from push 03/29: no shuffling gait Diagnostics Vital Signs (24Hr): Vital Signs - 24 hr 03/31/23 20:27 04/01/23 08:21 Temperature 98.3 F Pulse Rate 86 65 Respiratory Rate 16 Blood Pressure 158/73 H 143/64 H Pulse Oximetry 98 Oxygen Delivery Method Room Air BMI result Body Mass Index 31.2 Labs 03/30/23 08:52 03/30/23 08:52 Labs: Laboratory Results - last 48 hr 03/30/23 03/30/23 03/31/23 20:22 21:21 07:36 POC Glucose 370 H* 356 H* 161 H 03/31/23 04/01/23 20:07 08:42 POC Glucose 264 H 174 H Medications Medications Current Medications Acetaminophen (Acetaminophen 325 Mg Tablet) 650 mg PO Q6H PRN PRN Reason: Headache/Pain Mild Scale (1-3) Last Admin: 04/01/23 00:02 Dose: 650 mg Al Hydroxide/Mg Hydroxide (Magnesium Hydrox/Alum Hydrox 30 Ml Oral.Susp) 30 ml PO Q6H PRN PRN Reason: Heartburn/Nausea Atorvastatin Calcium (Atorvastatin Calcium 40 Mg Tablet) 40 mg PO DAILY [facility] Last Admin: 04/01/23 09:03 Dose: 40 mg Empagliflozin (Empagliflozin 25 Mg Tablet) 25 mg PO DAILY [facility] Last Admin: 04/01/23 09:03 Dose: 25 mg Famotidine (Famotidine 20 Mg Tablet) 20 mg PO DAILY [facility] Last Admin: 04/01/23 09:03 Dose: 20 mg Hydroxyzine HCl (Hydroxyzine Hcl 25 Mg Tablet) 25 mg PO Q6H PRN PRN Reason: Anxiety Last Admin: 03/25/23 20:34 Dose: 25 mg Lorazepam (Lorazepam 0.5 Mg Tablet) 0.5 mg PO BID PRN PRN Reason: Anxiety Magnesium Hydroxide (Milk Of Magnesia 30 Ml Oral.Susp) 30 ml PO DAILY PRN PRN Reason: Constipation Metformin HCl (Metformin Hcl 500 Mg Tablet) 500 mg PO BID [facility] Last Admin: 04/01/23 09:03 Dose: 500 mg Olanzapine (Olanzapine 5 Mg Tablet) 5 mg PO BEDTIME [facility] Last Admin: 03/31/23 20:34 Dose: 5 mg Olanzapine (Olanzapine 2.5 Mg Tablet) 2.5 mg PO Q4H PRN PRN Reason: agitation Omeprazole (Omeprazole 20 Mg Capsule.Dr) 20 mg PO DAILY [facility] Last Admin: 04/01/23 09:03 Dose: 20 mg Rivastigmine Tartrate (Rivastigmine Tartrate 1.5 Mg Capsule) 1.5 mg PO BID [facility] Last Admin: 04/01/23 09:03 Dose: 1.5 mg Trazodone HCl (Trazodone Hcl 50 Mg Tablet) 50 mg PO BEDTIME MRX1 PRN PRN Reason: Insomnia Last Admin: 03/29/23 23:40 Dose: 50 mg Allergies Allergies Allergy/AdvReac Type Severity Reaction Status Date / Time No Known Allergies Allergy Verified 03/23/23 18:13 Assessment & Plan Assessment & Plan (1) Encephalopathy: Status: Acute Code(s): G93.40 - Encephalopathy, unspecified Assessment and Plan: 57 years old woman with somewhat rapidly progressive neuropsychiatric symptomatology. As I discussed before, we should do few investigations to rule out any treatable causes or to rule out rapidly progressive dementing illnesses. In this category, infections an inflammatory conditions including Creutzfeld Max disease needed to be ruled out. Now days, this last condition can be mostly determined by MRI but her MRI in November did not reveal any such abnormality. I believe it is reasonable to repeat noncontrast MRI of brain to rule out any DWI sequence abnormalities. If that is negative, a lumbar puncture is recommended to analyze CSF including sending for CJD markers and dementia markers. In the meantime, it might be reasonable to try small dose of neuroleptics specially because of overt delusional thinking. (2) Dementia: Status: Acute Code(s): F03.90 - Unspecified dementia, unspecified severity, without behavioral disturbance, psychotic disturbance, mood disturbance, and anxiety (3) Hallucination, visual: Status: Acute Code(s): R44.1 - Visual hallucinations Plan 03/24:? R/O lewy body dementia.? hold neuroleptics for now, pending neuro consult, as if pt has LBD and receives neuroleptics, irreversible injury may be caused.? pt sees Dr. Mattson and reportedly has had imaging elsewhere.? will ask Dr. Mattson to see her ROCHELLE.? 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 03/25: Continue current regimen and plans.? Neurology consult pending. 03/26: Continue current regimen and plans.? Ordered low-dose Ativan yesterday. 03/27:? per Dr. Mattson, MRI does not demonstrate pathology, Dx of dementia is unclear; his impression was of primary psychiatric disorder and she was started on effexor XR.? EEG was recommended.? will obtain MoCA, T/C low dose of risperidone? at 3 pm and another at HS for what appears to be sundowning/sleep disturbance, if sufficient confidence is present that this is not LBD. 03/28:? MoCA 04/04.? extremely poor visuospatial/executive fxn.? does not appear delirious, general comportment would not betray such a low score.? EEG today, awaiting read.? T/C increasing dose of antidepressant medication.? family mtg with SW and pt's daughter. 03/29:? EEG read as WNL.? HCP obtained from daughter and invoked.? considering transfer to neuro unit for more detailed neuro w/u rather than continuing neuro w/u here. after discussion with Dr. Mattson, plan made to get LP for dementia markers and other. 03/30: Dr. Mattson added recommendations for repeat MRI as well as adding CJD testing to CSF. LP conducted today and CJD to be sent out; will need to wait for NEG result on that prior to repeat LP for CSF to do additional studies. no change in presentation today. MRI deferred to tomorrow due to lack of time. 03/31: MRI today. no change in presentation. level of consciousness seems stable, but mood appears to vary. no adverse reaction to zyprexa last night. 2.5 mg PRNs added today for agitation. 04/01: MRI remains undone. stably disoriented and sad. continue current mgmt for now. T/C reintroducing an antidepressant. Reason for continued inpatient stay Substantial Risk for: inability to function and rapid decompensation Time Spent With Patient Time: Total time managing care of this patient today ____ minutes.
[2023-04-01 20:25] VITALS: BP 132/65; PULSE 82; RESP 18; TEMP 36.6; O2SAT 98
[2023-04-01 20:29] LABS: Glucose, Whole Blood 313 mg/dL (60-115)
[2023-04-01] MEDS: OLANZapine 5 MG TABLET PO (20:30)
[2023-04-02] MEDS: LORazepam 0.5 MG TABLET PO ×2 (00:21→20:58)
[2023-04-02] MEDS: Acetaminophen 325 MG TABLET 650 MG PO (00:21)
--- NOTE | 2023-04-02 15:42 | P.PNPSI_ITS ---
Subjective Subjective Date of Service: 04/02/23 Reason For Visit: hallucinations Interim History: apparently having some VH or illusions today, asking, why do we have to have these things on the seats? nothing is on the seat, she feels at the seat; then says wires, then looks to the border between linoleum rick and plastic baseboard trim and feels down there. she does not appear to come to any conclusion about wires and simply leaves off in lack of resolution. otherwise vague but socially appropriate answers. some crying. on being asked if she is confused and scared she answers yes. per staff, refused all meds, VS. paranoid, irritable. unclear if ate breakfast. Mental Status Exam Mental Status Exam Narrative: calm, cooperative, diminutive. slight PMR. speech decr rate, decr loudness, decr prosody, decr amount. thoughts linear and grossly logical. affect c onstricted, hypo-intense, non-labile. no SI/SIBI/HI/AVH expressed. gross cognitive impairment. 03/28: no cogwheeling rigidity, good recovery from push 03/29: no shuffling gait Diagnostics Vital Signs (24Hr): Vital Signs - 24 hr 04/01/23 20:25 Temperature 97.8 F Pulse Rate 82 Respiratory Rate 18 Blood Pressure 132/65 Pulse Oximetry 98 Oxygen Delivery Method Room Air BMI result Body Mass Index 31.2 Labs 03/30/23 08:52 03/30/23 08:52 Labs: Laboratory Results - last 48 hr 03/31/23 04/01/23 04/01/23 20:07 08:42 20:23 POC Glucose 264 H 174 H 313 H Medications Medications Current Medications Acetaminophen (Acetaminophen 325 Mg Tablet) 650 mg PO Q6H PRN PRN Reason: Headache/Pain Mild Scale (1-3) Last Admin: 04/02/23 00:21 Dose: 650 mg Al Hydroxide/Mg Hydroxide (Magnesium Hydrox/Alum Hydrox 30 Ml Oral.Susp) 30 ml PO Q6H PRN PRN Reason: Heartburn/Nausea Atorvastatin Calcium (Atorvastatin Calcium 40 Mg Tablet) 40 mg PO DAILY [facility] Last Admin: 04/02/23 09:31 Dose: Not Given Empagliflozin (Empagliflozin 25 Mg Tablet) 25 mg PO DAILY [facility] Last Admin: 04/02/23 09:31 Dose: Not Given Famotidine (Famotidine 20 Mg Tablet) 20 mg PO DAILY [facility] Last Admin: 04/02/23 09:32 Dose: Not Given Hydroxyzine HCl (Hydroxyzine Hcl 25 Mg Tablet) 25 mg PO Q6H PRN PRN Reason: Anxiety Last Admin: 03/25/23 20:34 Dose: 25 mg Lorazepam (Lorazepam 0.5 Mg Tablet) 0.5 mg PO BID PRN PRN Reason: Anxiety Last Admin: 04/02/23 00:21 Dose: 0.5 mg Magnesium Hydroxide (Milk Of Magnesia 30 Ml Oral.Susp) 30 ml PO DAILY PRN PRN Reason: Constipation Metformin HCl (Metformin Hcl 500 Mg Tablet) 500 mg PO BID [facility] Last Admin: 04/02/23 09:32 Dose: Not Given Olanzapine (Olanzapine 5 Mg Tablet) 5 mg PO BEDTIME [facility] Last Admin: 04/01/23 20:30 Dose: 5 mg Olanzapine (Olanzapine 2.5 Mg Tablet) 2.5 mg PO Q4H PRN PRN Reason: agitation Omeprazole (Omeprazole 20 Mg Capsule.Dr) 20 mg PO DAILY [facility] Last Admin: 04/02/23 09:32 Dose: Not Given Rivastigmine Tartrate (Rivastigmine Tartrate 1.5 Mg Capsule) 1.5 mg PO BID [facility] Last Admin: 04/02/23 09:32 Dose: Not Given Trazodone HCl (Trazodone Hcl 50 Mg Tablet) 50 mg PO BEDTIME MRX1 PRN PRN Reason: Insomnia Last Admin: 03/29/23 23:40 Dose: 50 mg Allergies Allergies Allergy/AdvReac Type Severity Reaction Status Date / Time No Known Allergies Allergy Verified 03/23/23 18:13 Assessment & Plan Assessment & Plan (1) Encephalopathy: Status: Acute Code(s): G93.40 - Encephalopathy, unspecified Assessment and Plan: 57 years old woman with somewhat rapidly progressive neuropsychiatric symptoma tology. As I discussed before, we should do few investigations to rule out any treatable causes or to rule out rapidly progressive dementing illnesses. In this category, infections an inflammatory conditions including Creutzfeld Max disease needed to be ruled out. Now days, this last condition can be mostly determined by MRI but her MRI in November did not reveal any such abnormality. I believe it is reasonable to repeat noncontrast MRI of brain to rule out any DWI sequence abnormalities. If that is negative, a lumbar puncture is recommended to analyze CSF including sending for CJD markers and dementia markers. In the meantime, it might be reasonable to try small dose of neuroleptics specially because of overt delusional thinking. (2) Dementia: Status: Acute Code(s): F03.90 - Unspecified dementia, unspecified severity, without behavioral disturbance, psychotic disturbance, mood disturbance, and anxiety (3) Hallucination, visual: Status: Acute Code(s): R44.1 - Visual hallucinations Plan 03/24:? R/O lewy body dementia.? hold neuroleptics for now, pending neuro consult, as if pt has LBD and receives neuroleptics, irreversible injury may be caused.? pt sees Dr. Mattson and reportedly has had imaging elsewhere.? will ask Dr. Mattson to see her ROCHELLE.? 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 03/25: Continue current regimen and plans.? Neurology consult pending. 03/26: Continue current regimen and plans.? Ordered low-dose Ativan yesterday. 03/27:? per Dr. Mattson, MRI does not demonstrate pathology, Dx of dementia is unclear; his impression was of primary psychiatric disorder and she was started on effexor XR.? EEG was recommended.? will obtain MoCA, T/C low dose of risperidone? at 3 pm and another at HS for what appears to be owning/sleep disturbance, if sufficient confidence is present that this is not LBD. 03/28:? MoCA 04/04.? extremely poor visuospatial/executive fxn.? does not appear delirious, general comportment would not betray such a low score.? EEG today, awaiting read.? T/C increasing dose of antidepressant medication.? family mtg with SW and pt's daughter. 03/29:? EEG read as WNL.? HCP obtained from daughter and invoked.? considering transfer to neuro unit for more detailed neuro w/u rather than continuing neuro w/u here. after discussion with Dr. Mattson, plan made to get LP for dementia markers and other. 03/30: Dr. Mattson added recommendations for repeat MRI as well as adding CJD testing to CSF. LP conducted today and CJD to be sent out; will need to wait for NEG result on that prior to repeat LP for CSF to do additional studies. no change in presentation today. MRI deferred to tomorrow due to lack of time. 03/31: MRI today. no change in presentation. level of consciousness seems stable, but mood appears to vary. no adverse reaction to zyprexa last night. 2.5 mg PRNs added today for agitation. 04/01: MRI remains undone. stably disoriented and sad. continue current mgmt for now. T/C reintroducing an antidepressant. 04/02: MRI scheduled for 04/04. stable presentation. continue current mgmt. Reason for continued inpatient stay Substantial Risk for: inability to function and rapid decompensation Time Spent With Patient Time: Total time managing care of this patient today ____ minutes.
[2023-04-02 20:40] VITALS: BP 129/61; PULSE 72; RESP 18; TEMP 36.3; O2SAT 99
[2023-04-02] MEDS: metFORMIN HCl 500 MG TABLET PO (20:57)
[2023-04-02] MEDS: OLANZapine 5 MG TABLET PO (20:57)
[2023-04-02] MEDS: Rivastigmine Tartrate 1.5 MG CAPSULE PO (20:57)
[2023-04-02] MEDS: traZODone HCL 50 MG TABLET PO (20:58)
[2023-04-02 22:42] LABS: Glucose, Whole Blood 403 mg/dL (60-115)
--- NOTE | 2023-04-02 22:45 | PC.NURSE ---
HS POC 403. Pt had refused morning dose of metformin, also reported recently eating an ice cream shortly before POC checked. Dr. Matthew notified, no new orders at this time.
[2023-04-03] MEDS: LORazepam 0.5 MG TABLET PO ×2 (03:20→21:03)
[2023-04-03 06:51] LABS: Glucose, Whole Blood 228 mg/dL (60-115)
[2023-04-03 08:10] VITALS: BP 130/90; PULSE 71; RESP 18; TEMP 36.4; O2SAT 100
[2023-04-03] MEDS: metFORMIN HCl 500 MG TABLET PO ×2 (08:33→21:02)
[2023-04-03] MEDS: Omeprazole 20 MG CAPSULE.DR PO (08:33)
[2023-04-03] MEDS: Atorvastatin Calcium 40 MG TABLET PO (08:33)
[2023-04-03] MEDS: Famotidine 20 MG TABLET PO (08:33)
[2023-04-03] MEDS: Empagliflozin 25 MG TABLET PO (08:33)
[2023-04-03] MEDS: Rivastigmine Tartrate 1.5 MG CAPSULE PO ×2 (08:34→21:02)
--- NOTE | 2023-04-03 15:41 | P.PNPSI_ITS ---
Subjective Subjective Date of Service: 04/03/23 Reason For Visit: hallucinations Interim History: appears to be worsening in terms of visuospatial function, emotional lability. following lines on the floor, seems almost a little unsteady on her feet. disoriented, doesn't know where her own room is. issued non-sensical statements. per staff, FSBS 228. slept 9-12:30. difficulty perceiving medications and hand/eye coordination to get them into her mouth. possibly RIS. med-compliant. Mental Status Exam Mental Status Exam Narrative: calm, cooperative, diminutive. slight PMR. speech decr rate, decr loudness, decr prosody, decr amount. thoughts non-sequiturs and some linear/relevant interchange, such as asking where the bathroom is. affect constricted, hypo- intense, non-labile. no SI/SIBI/HI/AVH expressed. gross cognitive impairment. 03/28: no cogwheeling rigidity, good recovery from push 03/29: no shuffling gait 04/03: gross visuospatial dysfxn, coordination of hands to get meds to mouth Diagnostics Vital Signs (24Hr): Vital Signs - 24 hr 04/02/23 20:40 04/03/23 08:10 Temperature 97.3 F 97.6 F Pulse Rate 72 71 Respiratory Rate 18 18 Blood Pressure 129/61 130/90 H Pulse Oximetry 99 100 Oxygen Delivery Method Room Air Room Air BMI result Body Mass Index 31.2 Labs 03/30/23 08:52 03/30/23 08:52 Labs: Laboratory Results - last 48 hr 04/01/23 04/02/23 04/03/23 20:23 21:15 06:46 POC Glucose 313 H 403 H* 228 H Medications Medications Current Medications Acetaminophen (Acetaminophen 325 Mg Tablet) 650 mg PO Q6H PRN PRN Reason: Headache/Pain Mild Scale (1-3) Last Admin: 04/02/23 00:21 Dose: 650 mg Al Hydroxide/Mg Hydroxide (Magnesium Hydrox/Alum Hydrox 30 Ml Oral.Susp) 30 ml PO Q6H PRN PRN Reason: Heartburn/Nausea Atorvastatin Calcium (Atorvastatin Calcium 40 Mg Tablet) 40 mg PO DAILY [facility] Last Admin: 04/03/23 08:33 Dose: 40 mg Empagliflozin (Empagliflozin 25 Mg Tablet) 25 mg PO DAILY [facility] Last Admin: 04/03/23 08:33 Dose: 25 mg Famotidine (Famotidine 20 Mg Tablet) 20 mg PO DAILY [facility] Last Admin: 04/03/23 08:33 Dose: 20 mg Hydroxyzine HCl (Hydroxyzine Hcl 25 Mg Tablet) 25 mg PO Q6H PRN PRN Reason: Anxiety Last Admin: 03/25/23 20:34 Dose: 25 mg Lorazepam (Lorazepam 0.5 Mg Tablet) 0.5 mg PO BID PRN PRN Reason: Anxiety Last Admin: 04/03/23 03:20 Dose: 0.5 mg Magnesium Hydroxide (Milk Of Magnesia 30 Ml Oral.Susp) 30 ml PO DAILY PRN PRN Reason: Constipation Metformin HCl (Metformin Hcl 500 Mg Tablet) 500 mg PO BID [facility] Last Admin: 04/03/23 08:33 Dose: 500 mg Olanzapine (Olanzapine 5 Mg Tablet) 5 mg PO BEDTIME [facility] Last Admin: 04/02/23 20:57 Dose: 5 mg Olanzapine (Olanzapine 2.5 Mg Tablet) 2.5 mg PO Q4H PRN PRN Reason: agitation Omeprazole (Omeprazole 20 Mg Capsule.Dr) 20 mg PO DAILY [facility] Last Admin: 04/03/23 08:33 Dose: 20 mg Rivastigmine Tartrate (Rivastigmine Tartrate 1.5 Mg Capsule) 1.5 mg PO BID [facility] Last Admin: 04/03/23 08:34 Dose: 1.5 mg Trazodone HCl (Trazodone Hcl 50 Mg Tablet) 50 mg PO BEDTIME MRX1 PRN PRN Reason: Insomnia Last Admin: 04/02/23 20:58 Dose: 50 mg Allergies Allergies Allergy/AdvReac Type Severity Reaction Status Date / Time No Known Allergies Allergy Verified 03/23/23 18:13 Assessment & Plan Assessment & Plan (1) Encephalopathy: Status: Acute Code(s): G93.40 - Encephalopathy, unspecified Assessment and Plan: 57 years old woman with somewhat rapidly progressive neuropsychiatric symptomatology. As I discussed before, we should do few investigations to rule out any treatable causes or to rule out rapidly progressive dementing illnesses. In this category, infections an inflammatory conditions including Creutzfeld Max disease needed to be ruled out. Now days, this last condition can be mostly determined by MRI but her MRI in November did not reveal any such abnormality. I believe it is reasonable to repeat noncontrast MRI of brain to rule out any DWI sequence abnormalities. If that is negative, a lumbar puncture is recommended to analyze CSF including sending for CJD markers and dementia markers. In the meantime, it might be reasonable to try small dose of neuroleptics specially because of overt delusional thinking. (2) Dementia: Status: Acute Code(s): F03.90 - Unspecified dementia, unspecified severity, without behavioral disturbance, psychotic disturbance, mood disturbance, and anxiety (3) Hallucination, visual: Status: Acute Code(s): R44.1 - Visual hallucinations Plan 03/24:? R/O lewy body dementia.? hold neuroleptics for now, pending neuro consult, as if pt has LBD and receives neuroleptics, irreversible injury may be caused.? pt sees Dr. Mattson and reportedly has had imaging elsewhere.? will ask Dr. Mattson to see her ROCHELLE.? 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 03/25: Continue current regimen and plans.? Neurology consult pending. 03/26: Continue current regimen and plans.? Ordered low-dose Ativan yesterday. 03/27:? per Dr. Mattson, MRI does not demonstrate pathology, Dx of dementia is unclear; his impression was of primary psychiatric disorder and she was started on effexor XR.? EEG was recommended.? will obtain MoCA, T/C low dose of risperidone? at 3 pm and another at HS for what appears to be sundowning/sleep disturbance, if sufficient confidence is present that this is not LBD. 03/28:? MoCA 04/04.? extremely poor visuospatial/executive fxn.? does not appear delirious, general comportment would not betray such a low score.? EEG today, awaiting read.? T/C increasing dose of antidepressant medication.? family mtg with SW and pt's daughter. 03/29:? EEG read as WNL.? HCP obtained from daughter and invoked.? considering transfer to neuro unit for more detailed neuro w/u rather than continuing neuro w/u here. after discussion with Dr. Mattson, plan made to get LP for dementia markers and other. 03/30: Dr. Mattson added recommendations for repeat MRI as well as adding CJD testing to CSF. LP conducted today and CJD to be sent out; will need to wait for NEG result on that prior to repeat LP for CSF to do additional studies. no change in presentation today. MRI deferred to tomorrow due to lack of time. 03/31: MRI today. no change in presentation. level of consciousness seems stable, but mood appears to vary. no adverse reaction to zyprexa last night. 2.5 mg PRNs added today for agitation. 04/01: MRI remains undone. stably disoriented and sad. continue current mgmt for now. T/C reintroducing an antidepressant. 04/02: MRI scheduled for 04/04. stable presentation. continue current mgmt. 04/03: pt is apparently having difficulty coordinating hands/eyes to get medications into her mouth. ambulating next to wall for support and following lines in linoleum on the floor. doesn't know where her room is, wandering into others' rooms. brain MRI completed this afternoon, not yet read. Reason for continued inpatient stay Substantial Risk for: inability to function Time Spent With Patient Time: Total time managing care of this patient today ____ minutes.
[2023-04-03 21:00] VITALS: BP 131/62; PULSE 85; RESP 16; TEMP 36.4; O2SAT 93
[2023-04-03] MEDS: OLANZapine 5 MG TABLET PO (21:02)
[2023-04-03 21:09] LABS: Glucose, Whole Blood 173 mg/dL (60-115)
[2023-04-04 02:07] VITALS: RESP 18
--- NOTE | 2023-04-04 11:11 | PC.NURSE ---
Pt refused vitals, POC, and meds. Pt appeared agitated and stated no I'm not taking them. You guys are always giving me meds and all they do is make it hard for me to walk.
--- NOTE | 2023-04-04 13:11 | HO.PSYCHPN ---
Subjective Subjective Date of Service: 04/04/23 Reason For Visit: hallucinations Interim History: found lying on her mattress on the floor. rousable, reluctantly. asked to go home. says all she does is sleep and get up and then go back to sleep again. MD expresses concern for her condition and informs her of MRI completion and will ask Dr. Mattson for review/opinion. per staff, placed on 1:1 for wandering over w/e. urinary incontinence last NOC. confused, paranoid. 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 alleged to staff that people were looking at her while she was in the shower, gesturing to solid shower wall as if it were the window through which they were peering. Mental Status Exam Mental Status Exam Narrative: calm, cooperative, diminutive. slight PMR. speech decr rate, decr loudness, decr prosody, decr amount. thoughts non-sequiturs and some linear/relevant interchange, such as saying she wants to go home. affect constricted, hypo-intense, non-labile. no SI/SIBI/HI/AVH expressed. gross cognitive impairment. 03/28: no cogwheeling rigidity, good recovery from push 03/29: no shuffling gait 04/03: gross visuospatial dysfxn, discoordination of hands to get meds to mouth Diagnostics Vital Signs (24Hr): Vital Signs - 24 hr 04/03/23 21:00 04/04/23 02:07 Temperature 97.6 F Pulse Rate 85 Respiratory Rate 16 18 Blood Pressure 131/62 Pulse Oximetry 93 Oxygen Delivery Method Room Air BMI result Body Mass Index 31.2 Labs 03/30/23 08:52 03/30/23 08:52 Labs: Laboratory Results - last 48 hr 04/02/23 04/03/23 04/03/23 21:15 06:46 21:02 POC Glucose 403 H* 228 H 173 H Imaging Radiology Impressions: ITS Impressions Brain MRI 04/03/23 15:30 IMPRESSION: No acute infarct, mass lesion, intracranial hemorrhage, or evidence of hydrocephalus. Mild nonspecific T2/FLAIR hyperintensity in the cerebral white matter and danny presumably on the basis of chronic microangiopathy. Medications Medications Current Medications Acetaminophen (Acetaminophen 325 Mg Tablet) 650 mg PO Q6H PRN PRN Reason: Headache/Pain Mild Scale (1-3) Last Admin: 04/02/23 00:21 Dose: 650 mg Al Hydroxide/Mg Hydroxide (Magnesium Hydrox/Alum Hydrox 30 Ml Oral.Susp) 30 ml PO Q6H PRN PRN Reason: Heartburn/Nausea Atorvastatin Calcium (Atorvastatin Calcium 40 Mg Tablet) 40 mg PO DAILY [facility] Last Admin: 04/04/23 11:03 Dose: Not Given Empagliflozin (Empagliflozin 25 Mg Tablet) 25 mg PO DAILY [facility] Last Admin: 04/04/23 11:03 Dose: Not Given Famotidine (Famotidine 20 Mg Tablet) 20 mg PO DAILY [facility] Last Admin: 04/04/23 11:03 Dose: Not Given Hydroxyzine HCl (Hydroxyzine Hcl 25 Mg Tablet) 25 mg PO Q6H PRN PRN Reason: Anxiety Last Admin: 03/25/23 20:34 Dose: 25 mg Lorazepam (Lorazepam 0.5 Mg Tablet) 0.5 mg PO BID PRN PRN Reason: Anxiety Last Admin: 04/03/23 21:03 Dose: 0.5 mg Magnesium Hydroxide (Milk Of Magnesia 30 Ml Oral.Susp) 30 ml PO DAILY PRN PRN Reason: Constipation Metformin HCl (Metformin Hcl 500 Mg Tablet) 500 mg PO BID [facility] Last Admin: 04/04/23 11:03 Dose: Not Given Olanzapine (Olanzapine 5 Mg Tablet) 5 mg PO BEDTIME [facility] Last Admin: 04/03/23 21:02 Dose: 5 mg Olanzapine (Olanzapine 2.5 Mg Tablet) 2.5 mg PO Q4H PRN PRN Reason: agitation Omeprazole (Omeprazole 20 Mg Capsule.Dr) 20 mg PO DAILY [facility] Last Admin: 04/04/23 11:04 Dose: Not Given Rivastigmine Tartrate (Rivastigmine Tartrate 1.5 Mg Capsule) 1.5 mg PO BID [facility] Last Admin: 04/04/23 11:04 Dose: Not Given Trazodone HCl (Trazodone Hcl 50 Mg Tablet) 50 mg PO BEDTIME MRX1 PRN PRN Reason: Insomnia Last Admin: 04/02/23 20:58 Dose: 50 mg Allergies Allergies Allergy/AdvReac Type Severity Reaction Status Date / Time No Known Allergies Allergy Verified 03/23/23 18:13 Assessment & Plan Assessment & Plan (1) Encephalopathy: Status: Acute Code(s): G93.40 - Encephalopathy, unspecified Assessment and Plan: 57 years old woman with somewhat rapidly progressive neuropsychiatric symptomatology. As I discussed before, we should do few investigations to rule out any treatable causes or to rule out rapidly progressive dementing illnesses. In this category, infections an inflammatory conditions including Creutzfeld Max disease needed to be ruled out. Now days, this last condition can be mostly determined by MRI but her MRI in November did not reveal any such abnormality. I believe it is reasonable to repeat noncontrast MRI of brain to rule out any DWI sequence abnormalities. If that is negative, a lumbar puncture is recommended to analyze CSF including sending for CJD markers and dementia markers. In the meantime, it might be reasonable to try small dose of neuroleptics specially because of overt delusional thinking. (2) Dementia: Status: Acute Code(s): F03.90 - Unspecified dementia, unspecified severity, without behavioral disturbance, psychotic disturbance, mood disturbance, and anxiety (3) Hallucination, visual: Status: Acute Code(s): R44.1 - Visual hallucinations Plan 03/24:? R/O lewy body dementia.? hold neuroleptics for now, pending neuro consult, as if pt has LBD and receives neuroleptics, irreversible injury may be caused.? pt sees Dr. Mattson and reportedly has had imaging elsewhere.? will ask Dr. Mattson to see her ROCHELLE.? 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 03/25: Continue current regimen and plans.? Neurology consult pending. 03/26: Continue current regimen and plans.? Ordered low-dose Ativan yesterday. 03/27:? per Dr. Mattson, MRI does not demonstrate pathology, Dx of dementia is unclear; his impression was of primary psychiatric disorder and she was started on effexor XR.? EEG was recommended.? will obtain MoCA, T/C low dose of risperidone? at 3 pm and another at HS for what appears to be sundowning/sleep disturbance, if sufficient confidence is present that this is not LBD. 03/28:? MoCA 04/04.? extremely poor visuospatial/executive fxn.? does not appear delirious, general comportment would not betray such a low score.? EEG today, awaiting read.? T/C increasing dose of antidepressant medication.? family mtg with SW and pt's daughter. 03/29:? EEG read as WNL.? HCP obtained from daughter and invoked.? considering transfer to neuro unit for more detailed neuro w/u rather than continuing neuro w/u here. after discussion with Dr. Mattson, plan made to get LP for dementia markers and other. 03/30: Dr. Mattson added recommendations for repeat MRI as well as adding CJD testing to CSF. LP conducted today and CJD to be sent out; will need to wait for NEG result on that prior to repeat LP for CSF to do additional studies. no change in presentation today. MRI deferred to tomorrow due to lack of time. 03/31: MRI today. no change in presentation. level of consciousness seems stable, but mood appears to vary. no adverse reaction to zyprexa last night. 2.5 mg PRNs added today for agitation. 04/01: MRI remains undone. stably disoriented and sad. continue current mgmt for now. T/C reintroducing an antidepressant. 04/02: MRI scheduled for 04/04. stable presentation. continue current mgmt. 04/03: pt is apparently having difficulty coordinating hands/eyes to get medications into her mouth. ambulating next to wall for support and following lines in linoleum on the floor. doesn't know where her room is, wandering into others' rooms. brain MRI completed this afternoon, not yet read. 04/04: brain MRI unilluminating. Dr. Mattson requested to review and opine. similar presentation as yesterday. Reason for continued inpatient stay Substantial Risk for: inability to function Time Spent With Patient Time: Total time managing care of this patient today __35__ minutes.
[2023-04-04 18:00] VITALS: RESP 14
[2023-04-05] MEDS: Rivastigmine Tartrate 1.5 MG CAPSULE PO (08:15)
[2023-04-05] MEDS: Atorvastatin Calcium 40 MG TABLET PO (08:15)
[2023-04-05] MEDS: Famotidine 20 MG TABLET PO (08:15)
[2023-04-05] MEDS: Empagliflozin 25 MG TABLET PO (08:15)
[2023-04-05] MEDS: metFORMIN HCl 500 MG TABLET PO ×2 (08:15→22:55)
[2023-04-05] MEDS: Omeprazole 20 MG CAPSULE.DR PO (08:16)
[2023-04-05 08:22] LABS: Glucose, Whole Blood 164 mg/dL (60-115)
[2023-04-05 08:31] VITALS: BP 129/69; PULSE 69; RESP 18; TEMP 36.4; O2SAT 99
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
[2023-04-05] MEDS: HaloperidoL 1 MG TABLET 2 MG PO ×2 (14:56→22:55)
[2023-04-05] MEDS: LORazepam 1 MG TABLET PO ×2 (14:56→22:55)
--- NOTE | 2023-04-05 17:27 | HO.PSYCHPN ---
Subjective Subjective Date of Service: 04/05/23 Reason For Visit: hallucinations Interim History: presentation stable. case d/w lida and aayushairamjean. mario to consult. plan made to send for labs for ricketsial/tick-borne illness, inflammatory/auto-immune markers, and available serum markers suggestive of paraneoplastic syndromes. decision was made to hold transfer to neuropscyh unit as the next step for them would be an LP. we will plan to wait for CJD negative result and repeat LP for more likely illuminating information. in the meantime, will DC zyprexa as ptoviding some 5-HT stimulation and use haldol instead with some ativan in the event this is a catatonic depression. also will add acyclovir prophylaxis in the event this is an HSV encephalitis, as it is one thing we can treat which may otherwise be devastating. it will be impossible to make truly informed decisions until another LP is able to be done, but the cost-benefit ratio for acyclovir is large. per staff, pt napping much of the day, confused, agitated, disorganized. agitated at points and verbally abusive toward staff. yelling she had been placed in a box and all the other patients had been killed. was calmer once she was in the milieu and was able to ascertain that there were, in fact, other living patients on the unit. refused meds at [facility] and took them this morning. Mental Status Exam Mental Status Exam Narrative: calm, cooperative, diminutive. slight PMR. speech decr rate, decr loudness, decr prosody, decr amount. thoughts non-sequiturs and some linear/relevant interchange, such as saying she wants to go home. affect constricted, hypo-intense, non-labile. no SI/SIBI/HI/AVH expressed. gross cognitive impairment. 03/28: no cogwheeling rigidity, good recovery from push 03/29: no shuffling gait 04/03: gross visuospatial dysfxn, discoordination of hands to get meds to mouth Diagnostics Vital Signs (24Hr): Vital Signs - 24 hr 04/04/23 18:00 04/05/23 08:31 Temperature 97.6 F Pulse Rate 69 Respiratory Rate 14 18 Blood Pressure 129/69 Pulse Oximetry 99 Oxygen Delivery Method Room Air BMI result Body Mass Index 31.2 Labs 03/30/23 08:52 03/30/23 08:52 Labs: Laboratory Results - last 48 hr 04/03/23 04/05/23 21:02 08:13 POC Glucose 173 H 164 H Imaging Radiology Impressions: ITS Impressions Brain MRI 04/03/23 15:30 IMPRESSION: No acute infarct, mass lesion, intracranial hemorrhage, or evidence of hydrocephalus. Mild nonspecific T2/FLAIR hyperintensity in the cerebral white matter and danny presumably on the basis of chronic microangiopathy. Medications Medications Current Medications Acetaminophen (Acetaminophen 325 Mg Tablet) 650 mg PO Q6H PRN PRN Reason: Headache/Pain Mild Scale (1-3) Last Admin: 04/02/23 00:21 Dose: 650 mg Al Hydroxide/Mg Hydroxide (Magnesium Hydrox/Alum Hydrox 30 Ml Oral.Susp) 30 ml PO Q6H PRN PRN Reason: Heartburn/Nausea Atorvastatin Calcium (Atorvastatin Calcium 40 Mg Tablet) 40 mg PO DAILY [facility] Last Admin: 04/05/23 08:15 Dose: 40 mg Empagliflozin (Empagliflozin 25 Mg Tablet) 25 mg PO DAILY [facility] Last Admin: 04/05/23 08:15 Dose: 25 mg Famotidine (Famotidine 20 Mg Tablet) 20 mg PO DAILY [facility] Last Admin: 04/05/23 08:15 Dose: 20 mg Haloperidol (Haloperidol 1 Mg Tablet) 2 mg PO TID [facility] Last Admin: 04/05/23 14:56 Dose: 2 mg Lorazepam (Lorazepam 1 Mg Tablet) 1 mg PO TID [facility] Last Admin: 04/05/23 14:56 Dose: 1 mg Magnesium Hydroxide (Milk Of Magnesia 30 Ml Oral.Susp) 30 ml PO DAILY PRN PRN Reason: Constipation Metformin HCl (Metformin Hcl 500 Mg Tablet) 500 mg PO BID [facility] Last Admin: 04/05/23 08:15 Dose: 500 mg Omeprazole (Omeprazole 20 Mg Capsule.Dr) 20 mg PO DAILY [facility] Last Admin: 04/05/23 08:16 Dose: 20 mg Trazodone HCl (Trazodone Hcl 50 Mg Tablet) 50 mg PO BEDTIME MRX1 PRN PRN Reason: Insomnia Last Admin: 04/02/23 20:58 Dose: 50 mg Allergies Allergies Allergy/AdvReac Type Severity Reaction Status Date / Time No Known Allergies Allergy Verified 03/23/23 18:13 Assessment & Plan Assessment & Plan (1) Encephalopathy: Status: Acute Code(s): G93.40 - Encephalopathy, unspecified Assessment and Plan: 57 years old woman with somewhat rapidly progressive neuropsychiatric symptomatology. As I discussed before, we should do few investigations to rule out any treatable causes or to rule out rapidly progressive dementing illnesses. In this category, infections an inflammatory conditions including Creutzfeld Max disease needed to be ruled out. Now days, this last condition can be mostly determined by MRI but her MRI in November did not reveal any such abnormality. I believe it is reasonable to repeat noncontrast MRI of brain to rule out any DWI sequence abnormalities. If that is negative, a lumbar puncture is recommended to analyze CSF including sending for CJD markers and dementia markers. In the meantime, it might be reasonable to try small dose of neuroleptics specially because of overt delusional thinking. (2) Dementia: Status: Acute Code(s): F03.90 - Unspecified dementia, unspecified severity, without behavioral disturbance, psychotic disturbance, mood disturbance, and anxiety (3) Hallucination, visual: Status: Acute Code(s): R44.1 - Visual hallucinations Plan 03/24:? R/O lewy body dementia.? hold neuroleptics for now, pending neuro consult, as if pt has LBD and receives neuroleptics, irreversible injury may be caused.? pt sees Dr. Mattson and reportedly has had imaging elsewhere.? will ask Dr. Mattson to see her ROCHELLE.? 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 03/25: Continue current regimen and plans.? Neurology consult pending. 03/26: Continue current regimen and plans.? Ordered low-dose Ativan yesterday. 03/27:? per Dr. Mattson, MRI does not demonstrate pathology, Dx of dementia is unclear; his impression was of primary psychiatric disorder and she was started on effexor XR.? EEG was recommended.? will obtain MoCA, T/C low dose of risperidone? at 3 pm and another at HS for what appears to be sundowning/sleep disturbance, if sufficient confidence is present that this is not LBD. 03/28:? MoCA 04/04.? extremely poor visuospatial/executive fxn.? does not appear delirious, general comportment would not betray such a low score.? EEG today, awaiting read.? T/C increasing dose of antidepressant medication.? family mtg with SW and pt's daughter. 03/29:? EEG read as WNL.? HCP obtained from daughter and invoked.? considering transfer to neuro unit for more detailed neuro w/u rather than continuing neuro w/u here. after discussion with Dr. Mattson, plan made to get LP for dementia markers and other. 03/30: Dr. Mattson added recommendations for repeat MRI as well as adding CJD testing to CSF. LP conducted today and CJD to be sent out; will need to wait for NEG result on that prior to repeat LP for CSF to do additional studies. no change in presentation today. MRI deferred to tomorrow due to lack of time. 03/31: MRI today. no change in presentation. level of consciousness seems stable, but mood appears to vary. no adverse reaction to zyprexa last night. 2.5 mg PRNs added today for agitation. 04/01: MRI remains undone. stably disoriented and sad. continue current mgmt for now. T/C reintroducing an antidepressant. 04/02: MRI scheduled for 04/04. stable presentation. continue current mgmt. 04/03: pt is apparently having difficulty coordinating hands/eyes to get medications into her mouth. ambulating next to wall for support and following lines in linoleum on the floor. doesn't know where her room is, wandering into others' rooms. brain MRI completed this afternoon, not yet read. 04/04: brain MRI unilluminating. Dr. Mattson requested to review and opine. similar presentation as yesterday. 04/05: case d/w lida and chris. mario to consult. plan made to send for labs for ricketsial/tick-borne illness, inflammatory/auto-immune markers, and available serum markers suggestive of paraneoplastic syndromes. decision was made to hold transfer to neuropscyh unit as the next step for them would be an LP. we will plan to wait for CJD negative result and repeat LP for more likely illuminating information. in the meantime, will DC zyprexa as ptoviding some 5-HT stimulation and use haldol instead with some ativan in the event this is a catatonic depression. also will add acyclovir prophylaxis in the event this is an HSV encephalitis, as it is one thing we can treat which may otherwise be devastating. it will be impossible to make truly informed decisions until another LP is able to be done, but the cost-benefit ratio for acyclovir is large. Reason for continued inpatient stay Substantial Risk for: inability to function Time Spent With Patient Time: Total time managing care of this patient today __60__ minutes.
[2023-04-05 18:00] VITALS: BP 136/71; PULSE 98; RESP 18; TEMP 36.7; O2SAT 100
[2023-04-05 22:53] LABS: Glucose, Whole Blood 313 mg/dL (60-115)
--- NOTE | 2023-04-06 05:45 | PC.NURSE ---
Jessy remains on 1:1 for safety, she had brief periods of anger and paranoid during the evening. when she asked for her nurse and a staff pointed this food writer out she shook her head and said she's one of them she's not going to do anything she was reassured by other staff and when this food writer approached the patient for her medications she accepted them without difficulty
[2023-04-06 08:26] LABS: Glucose, Whole Blood 144 mg/dL (60-115)
[2023-04-06] MEDS: LORazepam 1 MG TABLET PO ×2 (08:49→22:22)
[2023-04-06] MEDS: metFORMIN HCl 500 MG TABLET PO ×2 (08:49→22:22)
[2023-04-06] MEDS: Atorvastatin Calcium 40 MG TABLET PO (08:50)
[2023-04-06] MEDS: Omeprazole 20 MG CAPSULE.DR PO (08:50)
[2023-04-06] MEDS: HaloperidoL 1 MG TABLET 2 MG PO ×2 (08:50→22:21)
[2023-04-06] MEDS: Empagliflozin 25 MG TABLET PO (08:50)
[2023-04-06] MEDS: Famotidine 20 MG TABLET PO (08:50)
[2023-04-06 10:30] VITALS: BP 134/81; PULSE 63; RESP 18; TEMP 36.1; O2SAT 98
[2023-04-06 12:01] LABS: C Reactive Protein 0.76 mg/dL (< or = 0.50); Rheumatoid Factor < 13.0 IU/mL (<15.0)
[2023-04-06 12:46] LABS: Creatinine Clr Calc Pharmacy 77.6; Estimated Glomerular Filt Rate > 60
--- NOTE | 2023-04-06 13:59 | P.PNPSI_ITS ---
Subjective Subjective Date of Service: 04/06/23 Reason For Visit: hallucinations Interim History: similar presentation. paucity of thought and purposeful movement. thinks she's at her niece's house today. informed she is in the hospital. several minutes later on being asked where she is she says she is at a relative's house, but she can't recall the relative's name. purposefully sits motionless in interview room with pt for prolonged period of time to observe spontaneous activities. at least 5 minutes pass, pt has said nothing and made no more than slight movements of her head and neck, looking toward the floor. unable to follow simple instructions on testing for dysdiadochokinesia and [id number] testing. Mental Status Exam Mental Status Exam Narrative: calm, cooperative, diminutive. general PMR. speech decr rate, decr loudness, decr prosody, decr amount. thoughts non-sequiturs and some linear/relevant interchange; paucity of thought. affect constricted, hypo-intense, non-labile. no SI/SIBI/HI/AVH expressed. gross cognitive impairment. 03/28: no cogwheeling rigidity, good recovery from push 03/29: no shuffling gait 04/03: gross visuospatial dysfxn, discoordination of hands to get meds to mouth 04/06: unable to follow simple instructions on testing for dysdiadochokinesia and [id number] testing. Diagnostics Vital Signs (24Hr): Vital Signs - 24 hr 04/05/23 18:00 04/06/23 10:30 Temperature 98.0 F 97.0 F Pulse Rate 98 63 Respiratory Rate 18 18 Blood Pressure 136/71 134/81 Pulse Oximetry 100 98 Oxygen Delivery Method Room Air Room Air BMI result Body Mass Index 31.2 Labs 03/30/23 08:52 04/06/23 09:11 Labs: Laboratory Results - last 48 hr 04/05/23 04/05/23 04/06/23 08:13 20:32 08:21 Creatinine Estim Creat Clear Calc Estimated GFR POC Glucose 164 H 313 H 144 H C-Reactive Protein Rheumatoid Factor 04/06/23 04/06/23 09:11 09:11 Creatinine 0.78 Estim Creat Clear Calc 77.6 Estimated GFR > 60 POC Glucose C-Reactive Protein 0.76 H Rheumatoid Factor < 13.0 Imaging Radiology Impressions: ITS Impressions Brain MRI 04/03/23 15:30 IMPRESSION: No acute infarct, mass lesion, intracranial hemorrhage, or evidence of hydrocephalus. Mild nonspecific T2/FLAIR hyperintensity in the cerebral white matter and danny presumably on the basis of chronic microangiopathy. Medications Medications Current Medications Acetaminophen (Acetaminophen 325 Mg Tablet) 650 mg PO Q6H PRN PRN Reason: Headache/Pain Mild Scale (1-3) Last Admin: 04/02/23 00:21 Dose: 650 mg Al Hydroxide/Mg Hydroxide (Magnesium Hydrox/Alum Hydrox 30 Ml Oral.Susp) 30 ml PO Q6H PRN PRN Reason: Heartburn/Nausea Atorvastatin Calcium (Atorvastatin Calcium 40 Mg Tablet) 40 mg PO DAILY [facility] Last Admin: 04/06/23 08:50 Dose: 40 mg Empagliflozin (Empagliflozin 25 Mg Tablet) 25 mg PO DAILY [facility] Last Admin: 04/06/23 08:50 Dose: 25 mg Famotidine (Famotidine 20 Mg Tablet) 20 mg PO DAILY [facility] Last Admin: 04/06/23 08:50 Dose: 20 mg Haloperidol (Haloperidol 1 Mg Tablet) 2 mg PO TID [facility] Last Admin: 04/06/23 08:50 Dose: 2 mg Lorazepam (Lorazepam 1 Mg Tablet) 1 mg PO TID [facility] Last Admin: 04/06/23 08:49 Dose: 1 mg Magnesium Hydroxide (Milk Of Magnesia 30 Ml Oral.Susp) 30 ml PO DAILY PRN PRN Reason: Constipation Metformin HCl (Metformin Hcl 500 Mg Tablet) 500 mg PO BID [facility] Last Admin: 04/06/23 08:49 Dose: 500 mg Omeprazole (Omeprazole 20 Mg Capsule.Dr) 20 mg PO DAILY [facility] Last Admin: 04/06/23 08:50 Dose: 20 mg Trazodone HCl (Trazodone Hcl 50 Mg Tablet) 50 mg PO BEDTIME MRX1 PRN PRN Reason: Insomnia Last Admin: 04/02/23 20:58 Dose: 50 mg Allergies Allergies Allergy/AdvReac Type Severity Reaction Status Date / Time No Known Allergies Allergy Verified 03/23/23 18:13 Assessment & Plan Assessment & Plan (1) Encephalopathy: Status: Acute Code(s): G93.40 - Encephalopathy, unspecified Assessment and Plan: 57 years old woman with somewhat rapidly progressive neuropsychiatric symptomatology. As I discussed before, we should do few investigations to rule out any treatable causes or to rule out rapidly progressive dementing illnesses. In this category, infections an inflammatory conditions including Creutzfeld Max disease needed to be ruled out. Now days, this last condition can be mostly determined by MRI but her MRI in November did not reveal any such abnormality. I believe it is reasonable to repeat noncontrast MRI of brain to rule out any DWI sequence abnormalities. If that is negative, a lumbar puncture is recommended to analyze CSF including sending for CJD markers and dementia markers. In the meantime, it might be reasonable to try small dose of neuroleptics specially because of overt delusional thinking. (2) Dementia: Status: Acute Code(s): F03.90 - Unspecified dementia, unspecified severity, without behavioral disturbance, psychotic disturbance, mood disturbance, and anxiety (3) Hallucination, visual: Status: Acute Code(s): R44.1 - Visual hallucinations Plan 03/24:? R/O lewy body dementia.? hold neuroleptics for now, pending neuro consu lt, as if pt has LBD and receives neuroleptics, irreversible injury may be caused.? pt sees Dr. Mattson and reportedly has had imaging elsewhere.? will ask Dr. Mattson to see her ROCHELLE.? 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 03/25: Continue current regimen and plans.? Neurology consult pending. 03/26: Continue current regimen and plans.? Ordered low-dose Ativan yesterday. 03/27:? per Dr. Mattson, MRI does not demonstrate pathology, Dx of dementia is unclear; his impression was of primary psychiatric disorder and she was started on effexor XR.? EEG was recommended.? will obtain MoCA, T/C low dose of risperidone? at 3 pm and another at HS for what appears to be sundowning/sleep disturbance, if sufficient confidence is present that this is not LBD. 03/28:? MoCA 04/04.? extremely poor visuospatial/executive fxn.? does not appear delirious, general comportment would not betray such a low score.? EEG today, awaiting read.? T/C increasing dose of antidepressant medication.? family mtg with SW and pt's daughter. 03/29:? EEG read as WNL.? HCP obtained from daughter and invoked.? considering transfer to neuro unit for more detailed neuro w/u rather than continuing neuro w/u here. after discussion with Dr. Mattson, plan made to get LP for dementia markers and other. 03/30: Dr. Mattson added recommendations for repeat MRI as well as adding CJD testing to CSF. LP conducted today and CJD to be sent out; will need to wait for NEG result on that prior to repeat LP for CSF to do additional studies. no change in presentation today. MRI deferred to tomorrow due to lack of time. 03/31: MRI today. no change in presentation. level of consciousness seems stable, but mood appears to vary. no adverse reaction to zyprexa last night. 2.5 mg PRNs added today for agitation. 04/01: MRI remains undone. stably disoriented and sad. continue current mgmt for now. T/C reintroducing an antidepressant. 04/02: MRI scheduled for 04/04. stable presentation. continue current mgmt. 04/03: pt is apparently having difficulty coordinating hands/eyes to get medic ations into her mouth. ambulating next to wall for support and following lines in linoleum on the floor. doesn't know where her room is, wandering into others' rooms. brain MRI completed this afternoon, not yet read. 04/04: brain MRI unilluminating. Dr. Mattson requested to review and opine. aruna smith presentation as yesterday. 04/05: case d/w lida and chris. mario to consult. plan made to send for labs for ricketsial/tick-borne illness, inflammatory/auto-immune markers, and available serum markers suggestive of paraneoplastic syndromes. decision was made to hold transfer to neuropscyh unit as the next step for them would be an LP. we will plan to wait for CJD negative result and repeat LP for more likely illuminating information. in the meantime, will DC zyprexa as providing some 5-HT stimulation and use haldol instead with some ativan in the event this is a catatonic depression. also will add acyclovir prophylaxis in the event this is an HSV encephalitis, as it is one thing we can treat which may otherwise be devastating. it will be impossible to make truly informed decisions until another LP is able to be done, but the cost-benefit ratio for acyclovir is large . 04/06: large battery of labs drawn yesterday, most still pending. CRP elevated. acyclovir was not started yesterday; awaiting input from ID and medicine prior to initiating any further treatment. ativan and haldol combination do not appear to have substantially modified pt's presentation. Reason for continued inpatient stay Substantial Risk for: inability to function Time Spent With Patient Time: Total time managing care of this patient today __35__ minutes.
--- NOTE | 2023-04-06 15:08 | P.CONHOSP_ITS ---
History of Present Illness Data of Consult Service Date: 04/06/23 Primary Care Provider: Kenroy Antonio MD HPI Reason for consult: Evaluation for medical causes for rapidly declining cognitive status Pt is a 57-year-old female with a PMH significant for?depression, non insulin- dependent diabetes, HLD, and GERD who is admitted to psychiatry unit for experiencing hallucination and displaying paranoid and bizarre behaviors. Patient noted to be declining lately with rapidly progressive neuropsychiatric symptomatology. Patient has been compliant with her medications. Patient already has had a rather substantial workup that so far has been negative including an MRI in November. Medical consult for evaluation of potential treatable causes of rapidly progressive demention. Patient seen evaluated at bedside. Pt seemed wary of interview and was not cooperative with inquries. In response to the question Do you know where you are, pt responded with [place]. Pt then responded with No when asked about time and situation. Pt's responses seemed more dismissive than delusional or encephalopathic. Pt not noted to be responding to either internal stimuli or visual or auditory hallucinations. Pt refused to answer any HPI/ROS question with more than You just want to give me drugs. Pt also refused physical examination. Review of Systems Review of Systems: Pt not cooperative with interview [facility] Medical History Diabetes GERD (gastroesophageal reflux disease) Social History Household Members: Family Housing: Other Housing Other:: PATIENT CURRENTLY SLEEPING ON BROTHERS COUCH Do you presently have visiting nurse or other home services: No Unable to assess alcohol history related to: Unknown Patient Tobacco Use Status: Tobacco use Unknown Advance Directives: Yes Advance Directives on File: Yes Advance Directives Date on File: 03/30/23 service: No Sexual orientation: Straight/Heterosexual Meds Allergies Allergy/AdvReac Type Severity Reaction Status Date / Time No Known Allergies Allergy Verified 03/23/23 18:13 Active Medications: Current Medications Acetaminophen (Acetaminophen 325 Mg Tablet) 650 mg PO Q6H PRN PRN Reason: Headache/Pain Mild Scale (1-3) Last Admin: 04/02/23 00:21 Dose: 650 mg Al Hydroxide/Mg Hydroxide (Magnesium Hydrox/Alum Hydrox 30 Ml Oral.Susp) 30 ml PO Q6H PRN PRN Reason: Heartburn/Nausea Atorvastatin Calcium (Atorvastatin Calcium 40 Mg Tablet) 40 mg PO DAILY [facility] Last Admin: 04/06/23 08:50 Dose: 40 mg Empagliflozin (Empagliflozin 25 Mg Tablet) 25 mg PO DAILY [facility] Last Admin: 04/06/23 08:50 Dose: 25 mg Famotidine (Famotidine 20 Mg Tablet) 20 mg PO DAILY [facility] Last Admin: 04/06/23 08:50 Dose: 20 mg Haloperidol (Haloperidol 1 Mg Tablet) 2 mg PO TID [facility] Last Admin: 04/06/23 08:50 Dose: 2 mg Lorazepam (Lorazepam 1 Mg Tablet) 1 mg PO TID [facility] Last Admin: 04/06/23 08:49 Dose: 1 mg Magnesium Hydroxide (Milk Of Magnesia 30 Ml Oral.Susp) 30 ml PO DAILY PRN PRN Reason: Constipation Metformin HCl (Metformin Hcl 500 Mg Tablet) 500 mg PO BID [facility] Last Admin: 04/06/23 08:49 Dose: 500 mg Omeprazole (Omeprazole 20 Mg Capsule.Dr) 20 mg PO DAILY [facility] Last Admin: 04/06/23 08:50 Dose: 20 mg Trazodone HCl (Trazodone Hcl 50 Mg Tablet) 50 mg PO BEDTIME MRX1 PRN PRN Reason: Insomnia Last Admin: 04/02/23 20:58 Dose: 50 mg Home Medications Medication Instructions Recorded Confirmed Last Taken Type atorvastatin 40 mg tablet 40 mg PO DAILY 03/23/23 03/23/23 Unknown History empagliflozin 25 mg tablet 25 mg PO DAILY 03/23/23 03/23/23 Unknown History (Jardiance) famotidine 20 mg tablet 20 mg PO DAILY 03/23/23 03/23/23 Unknown History metformin 500 mg tablet 500 mg PO BID 03/23/23 03/23/23 Unknown History omeprazole 20 mg capsule,delayed 20 mg PO DAILY 03/23/23 03/23/23 Unknown History release venlafaxine 75 mg tablet 75 mg PO DAILY 03/23/23 03/23/23 Unknown History ferrous sulfate 325 mg (65 mg 325 mg PO DAILY 03/24/23 03/24/23 Unknown History iron) tablet Physical Exam Vital Signs and Narrative: Vital Signs: Last Vital Signs Temp 97.0 F 04/06/23 10:30 Pulse 63 04/06/23 10:30 Resp 18 06/01/23 10:30 BP 134/81 04/06/23 10:30 Pulse Ox 98 04/06/23 10:30 O2 Del Method Room Air 04/06/23 10:30 BMI result Body Mass Index 31.2 General: Alert, in no acute distress. Orientation difficult to assess as pt was not cooperative with interview or physical examination. Neuro: Motor grossly intact bilaterally. Pt seen ambulating on her own in hallway and in room. Psych: Pt with head down most of the time, minimal eye contact. Not cooperative with examination or interview. Affect flat. Pt refused physical examination Results Labs 03/30/23 08:52 04/06/23 09:11 Labs: Laboratory Results - last 24 hr 04/05/23 04/06/23 04/06/23 20:32 08:21 09:11 Estim Creat Clear Calc Estimated GFR POC Glucose 313 H 144 H C-Reactive Protein 0.76 H Rheumatoid Factor < 13.0 04/06/23 09:11 Estim Creat Clear Calc 77.6 Estimated GFR > 60 POC Glucose C-Reactive Protein Rheumatoid Factor Assessment and Plan (1) Encephalopathy: Status: Acute (2) Dementia: Status: Acute (3) Hallucination, visual: Status: Acute Plan Pt is a 57-year-old female with a PMH significant for?depression, non insulin- dependent diabetes, HLD, and GERD who is admitted to [facility] psychiatry unit for experiencing hallucination and displaying paranoid and bizarre behaviors. Patient apparently carries a diagnosis of early onset dementia, but has been declining lately with rapidly progressive neuropsychiatric symptomatology. Patient has been compliant with her medications. Patient already has had a rather substantial workup that so far has been negative including an MRI in November. Medical consult for evaluation of potential treatable causes of rapidly progressive demention. 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 Will continue to follow pending lab results. Please let us know if there are any acute complaints or questions. Time Spent With Patient Time: Total time managing care of this patient today ____ minutes.
[2023-04-06 21:45] VITALS: BP 141/61; PULSE 69; RESP 18; TEMP 36.6; O2SAT 95
[2023-04-07 00:05] LABS: Glucose, Whole Blood 181 mg/dL (60-115)
[2023-04-07 01:52] LABS: Syphilis Screen Nonreactive (Nonreactive)
[2023-04-07 03:16] LABS: HIV AB/AG Nonreactive (Nonreactive); HIV Num 1 0.07 S/CO (0.00-0.99)
[2023-04-07 09:10] LABS: Glucose, Whole Blood 164 mg/dL (60-115)
[2023-04-07] MEDS: LORazepam 1 MG TABLET PO ×3 (10:34→21:45)
[2023-04-07] MEDS: HaloperidoL 1 MG TABLET 2 MG PO ×3 (10:34→21:45)
[2023-04-07] MEDS: Omeprazole 20 MG CAPSULE.DR PO (10:34)
[2023-04-07] MEDS: Empagliflozin 25 MG TABLET PO (10:34)
[2023-04-07 10:35] VITALS: BP 140/63; PULSE 72; RESP 18; TEMP 36.4; O2SAT 99
[2023-04-07] MEDS: Famotidine 20 MG TABLET PO (10:35)
[2023-04-07] MEDS: metFORMIN HCl 500 MG TABLET PO ×2 (10:35→21:45)
[2023-04-07] MEDS: Atorvastatin Calcium 40 MG TABLET PO (10:35)
--- NOTE | 2023-04-07 15:43 | HO.PSYCHPN ---
Subjective Subjective Date of Service: 04/07/23 Reason For Visit: hallucinations Interim History: no change in presentation. disoriented. per staff, sleeping much of days. yelling and nonsensical in group. hearing babies crying, looking for them. up at 0700 yelling, swearing. POC 144, 188. Mental Status Exam Mental Status Exam Narrative: calm, cooperative, diminutive. general PMR. speech decr rate, decr loudness, decr prosody, decr amount. thoughts non-sequiturs and some linear/relevant interchange; paucity of thought. affect constricted, hypo-intense, non-labile. no SI/SIBI/HI/AVH expressed. gross cognitive impairment. 03/28: no cogwheeling rigidity, good recovery from push 03/29: no shuffling gait 04/03: gross visuospatial dysfxn, discoordination of hands to get meds to mouth 04/06: unable to follow simple instructions on testing for dysdiadochokinesia and [id number] testing. Diagnostics Vital Signs (24Hr): Vital Signs - 24 hr 04/06/23 21:45 04/07/23 10:35 Temperature 97.8 F 97.6 F Pulse Rate 69 72 Respiratory Rate 18 18 Blood Pressure 141/61 H 140/63 H Pulse Oximetry 95 99 Oxygen Delivery Method Room Air Room Air BMI result Body Mass Index 31.2 Labs 03/30/23 08:52 04/06/23 09:11 Labs: Laboratory Results - last 48 hr 04/05/23 04/06/23 04/06/23 20:32 08:21 09:11 Creatinine Estim Creat Clear Calc Estimated GFR POC Glucose 313 H 144 H C-Reactive Protein 0.76 H Rheumatoid Factor < 13.0 T.pallidum Ab (EIA) HIV 1&2 Ab/P24 Ag 4thGn 04/06/23 04/06/23 04/06/23 09:11 09:11 09:11 Creatinine 0.78 Estim Creat Clear Calc 77.6 Estimated GFR > 60 POC Glucose C-Reactive Protein Rheumatoid Factor T.pallidum Ab (EIA) Nonreactive HIV 1&2 Ab/P24 Ag 4thGn Nonreactive 04/06/23 04/07/23 22:19 09:01 Creatinine Estim Creat Clear Calc Estimated GFR POC Glucose 181 H 164 H C-Reactive Protein Rheumatoid Factor T.pallidum Ab (EIA) HIV 1&2 Ab/P24 Ag 4th Imaging Radiology Impressions: ITS Impressions Brain MRI 04/03/23 15:30 IMPRESSION: No acute infarct, mass lesion, intracranial hemorrhage, or evidence of hydrocephalus. Mild nonspecific T2/FLAIR hyperintensity in the cerebral white matter and danny presumably on the basis of chronic microangiopathy. Medications Medications Current Medications Acetaminophen (Acetaminophen 325 Mg Tablet) 650 mg PO Q6H PRN PRN Reason: Headache/Pain Mild Scale (1-3) Last Admin: 04/02/23 00:21 Dose: 650 mg Al Hydroxide/Mg Hydroxide (Magnesium Hydrox/Alum Hydrox 30 Ml Oral.Susp) 30 ml PO Q6H PRN PRN Reason: Heartburn/Nausea Atorvastatin Calcium (Atorvastatin Calcium 40 Mg Tablet) 40 mg PO DAILY [facility] Last Admin: 04/07/23 10:35 Dose: 40 mg Empagliflozin (Empagliflozin 25 Mg Tablet) 25 mg PO DAILY [facility] Last Admin: 04/07/23 10:34 Dose: 25 mg Famotidine (Famotidine 20 Mg Tablet) 20 mg PO DAILY [facility] Last Admin: 04/07/23 10:35 Dose: 20 mg Haloperidol (Haloperidol 1 Mg Tablet) 2 mg PO TID [facility] Last Admin: 04/07/23 10:34 Dose: 2 mg Lorazepam (Lorazepam 1 Mg Tablet) 1 mg PO TID [facility] Last Admin: 04/07/23 10:34 Dose: 1 mg Magnesium Hydroxide (Milk Of Magnesia 30 Ml Oral.Susp) 30 ml PO DAILY PRN PRN Reason: Constipation Metformin HCl (Metformin Hcl 500 Mg Tablet) 500 mg PO BID [facility] Last Admin: 04/07/23 10:35 Dose: 500 mg Omeprazole (Omeprazole 20 Mg Capsule.Dr) 20 mg PO DAILY [facility] Last Admin: 04/07/23 10:34 Dose: 20 mg Trazodone HCl (Trazodone Hcl 50 Mg Tablet) 50 mg PO BEDTIME MRX1 PRN PRN Reason: Insomnia Last Admin: 04/02/23 20:58 Dose: 50 mg Allergies Allergies Allergy/AdvReac Type Severity Reaction Status Date / Time No Known Allergies Allergy Verified 03/23/23 18:13 Assessment & Plan Assessment & Plan (1) Encephalopathy: Status: Acute Code(s): G93.40 - Encephalopathy, unspecified (2) Dementia: Status: Acute Code(s): F03.90 - Unspecified dementia, unspecified severity, without behavioral disturbance, psychotic disturbance, mood disturbance, and anxiety (3) Hallucination, visual: Status: Acute Code(s): R44.1 - Visual hallucinations Plan 03/24:? R/O lewy body dementia.? hold neuroleptics for now, pending neuro consult, as if pt has LBD and receives neuroleptics, irreversible injury may be caused.? pt sees Dr. Mattson and reportedly has had imaging elsewhere.? will ask Dr. Mattson to see her ROCHELLE.? 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 03/25: Continue current regimen and plans.? Neurology consult pending. 03/26: Continue current regimen and plans.? Ordered low-dose Ativan yesterday. 03/27:? per Dr. Mattson, MRI does not demonstrate pathology, Dx of dementia is unclear; his impression was of primary psychiatric disorder and she was started on effexor XR.? EEG was recommended.? will obtain MoCA, T/C low dose of risperidone? at 3 pm and another at HS for what appears to be sundowning/sleep disturbance, if sufficient confidence is present that this is not LBD. 03/28:? MoCA 04/04.? extremely poor visuospatial/executive fxn.? does not appear delirious, general comportment would not betray such a low score.? EEG today, awaiting read.? T/C increasing dose of antidepressant medication.? family mtg with SW and pt's daughter. 03/29:? EEG read as WNL.? HCP obtained from daughter and invoked.? considering transfer to neuro unit for more detailed neuro w/u rather than continuing neuro w/u here.? after discussion with Dr. Mattson, plan made to get LP for dementia markers and other. 03/30:? Dr. Mattson added recommendations for repeat MRI as well as adding CJD testing to CSF.? LP conducted today and CJD to be sent out; will need to wait for NEG result on that prior to repeat LP for CSF to do additional studies.? no change in presentation today.? MRI deferred to tomorrow due to lack of time. 03/31:? MRI today.? no change in presentation.? level of consciousness seems stable, but mood appears to vary.? no adverse reaction to zyprexa last night.? 2.5 mg PRNs added today for agitation. 04/01:? MRI remains undone.? stably disoriented and sad.? continue current mgmt for now.? T/C reintroducing an antidepressant. 04/02:? MRI scheduled for 04/04.? stable presentation.? continue current mgmt. 04/03:? pt is apparently having difficulty coordinating hands/eyes to get medications into her mouth.? ambulating next to wall for support and following lines in linoleum on the floor.? doesn't know where her room is, wandering into others' rooms.? brain MRI completed this afternoon, not yet read. 04/04:? brain MRI unilluminating.? Dr. Mattson requested to review and opine.? similar presentation as yesterday. 04/05:? case d/w lida and chris.? [place] to consult.? plan made to send for labs for ricketsial/tick-borne illness, inflammatory/auto-immune markers, and available serum markers suggestive of paraneoplastic syndromes.? decision was made to hold transfer to neuropscyh unit as the next step for them would be an LP.? we will plan to wait for CJD negative result and repeat LP for more likely illuminating information.? in the meantime, will DC zyprexa as providing some 5-HT stimulation and use haldol instead with some ativan in the event this is a catatonic depression.? also will add acyclovir prophylaxis in the event this is an HSV encephalitis, as it is one thing we can treat which may otherwise be devastating.? it will be impossible to make truly informed decisions until another LP is able to be done, but the cost-benefit ratio for acyclovir is large. 04/06:? large battery of labs drawn yesterday, most still pending.? CRP elevated.? acyclovir was not started yesterday; awaiting input from ID and medicine prior to initiating any further treatment.? ativan and haldol combination do not appear to have substantially modified pt's presentation. 04/07: limited labs returned today, thus far not suggestive of auto-immune condition, certain infections diseases ruled out. continue current mgmt. CJD results not yet in. Reason for continued inpatient stay Substantial Risk for: harm to self, inability to function and rapid decompensation Time Spent With Patient Time: Total time managing care of this patient today __25__ minutes.
[2023-04-07 21:18] LABS: Glucose, Whole Blood 241 mg/dL (60-115)
[2023-04-07 21:30] VITALS: BP 120/57; PULSE 75; RESP 14; TEMP 35.9; O2SAT 97
--- NOTE | 2023-04-07 21:39 | P.CNID_ITS ---
History of Present Illness Data of Consult Service Date: 04/07/23 Requesting physician: Chito Matthew Primary Care Provider: Kenroy Antonio MD HPI Reason for consult: possible infectious causes confusion She presents to hospital with depression and slowness to respond and is hospitalized on Psychiatry. She has had amnesia and forgetfulness over last several months. She had an MRI done of brain which was somewhat nonspecific. She has no fever or chills. She has no travel. Review of Systems Review of Systems: Yes all other systems are reviewed and are negative [facility] Past Medical History Medical History Diabetes GERD (gastroesophageal reflux disease) Family History Family history: reviewed and not pertinent Social History Social History Household Members: Family Housing: Other Housing Other:: PATIENT CURRENTLY SLEEPING ON BROTHERS COUCH Do you presently have visiting nurse or other home services: No Unable to assess alcohol history related to: Unknown Patient Tobacco Use Status: Tobacco use Unknown Advance Directives: Yes Advance Directives on File: Yes Advance Directives Date on File: 03/30/23 service: No Sexual orientation: Straight/Heterosexual Meds Allergies Allergy/AdvReac Type Severity Reaction Status Date / Time No Known Allergies Allergy Verified 03/23/23 18:13 Active Medications: Current Medications Acetaminophen (Acetaminophen 325 Mg Tablet) 650 mg PO Q6H PRN PRN Reason: Headache/Pain Mild Scale (1-3) Last Admin: 04/02/23 00:21 Dose: 650 mg Al Hydroxide/Mg Hydroxide (Magnesium Hydrox/Alum Hydrox 30 Ml Oral.Susp) 30 ml PO Q6H PRN PRN Reason: Heartburn/Nausea Atorvastatin Calcium (Atorvastatin Calcium 40 Mg Tablet) 40 mg PO DAILY [facility] Last Admin: 04/07/23 10:35 Dose: 40 mg Empagliflozin (Empagliflozin 25 Mg Tablet) 25 mg PO DAILY [facility] Last Admin: 04/07/23 10:34 Dose: 25 mg Famotidine (Famotidine 20 Mg Tablet) 20 mg PO DAILY [facility] Last Admin: 04/07/23 10:35 Dose: 20 mg Haloperidol (Haloperidol 1 Mg Tablet) 2 mg PO TID [facility] Last Admin: 04/07/23 15:50 Dose: 2 mg Lorazepam (Lorazepam 1 Mg Tablet) 1 mg PO TID [facility] Last Admin: 04/07/23 15:50 Dose: 1 mg Magnesium Hydroxide (Milk Of Magnesia 30 Ml Oral.Susp) 30 ml PO DAILY PRN PRN Reason: Constipation Metformin HCl (Metformin Hcl 500 Mg Tablet) 500 mg PO BID [facility] Last Admin: 04/07/23 10:35 Dose: 500 mg Omeprazole (Omeprazole 20 Mg Capsule.Dr) 20 mg PO DAILY [facility] Last Admin: 04/07/23 10:34 Dose: 20 mg Trazodone HCl (Trazodone Hcl 50 Mg Tablet) 50 mg PO BEDTIME MRX1 PRN PRN Reason: Insomnia Last Admin: 04/02/23 20:58 Dose: 50 mg Home Medications Medication Instructions Recorded Confirmed Last Taken Type atorvastatin 40 mg tablet 40 mg PO DAILY 03/23/23 03/23/23 Unknown History empagliflozin 25 mg tablet 25 mg PO DAILY 03/23/23 03/23/23 Unknown History (Jardiance) famotidine 20 mg tablet 20 mg PO DAILY 03/23/23 03/23/23 Unknown History metformin 500 mg tablet 500 mg PO BID 03/23/23 03/23/23 Unknown History omeprazole 20 mg capsule,delayed 20 mg PO DAILY 03/23/23 03/23/23 Unknown History release venlafaxine 75 mg tablet 75 mg PO DAILY 03/23/23 03/23/23 Unknown History ferrous sulfate 325 mg (65 mg 325 mg PO DAILY 03/24/23 03/24/23 Unknown History iron) tablet Physical Exam Vital Signs: Vital Signs: Last Vital Signs Temp 97.6 F 04/07/23 10:35 Pulse 72 04/07/23 10:35 Resp 18 04/07/23 10:35 BP 140/63 H 04/07/23 10:35 Pulse Ox 99 04/07/23 10:35 O2 Del Method Room Air 04/07/23 10:35 BMI result Body Mass Index 31.2 Const: General: cooperative HEENT: Head: Yes normal to inspection Face and sinus: Yes normal facial exam Mouth: Normal oral and palatal mucosa present Teeth and gingiva: dentition normal Eyes: General: appearance normal, both eyes and all related structures Pupils: Equal, round and reactive pupils present Resp: Effort & Inspection: normal respiratory effort Cardio: Rate: regular rate Rhythm: regular rhythm GI: Palpation (GI): Soft to palpation and nontender : General: Yes no CVA tenderness Back/Spine/Pelvis: Back: no CVA tenderness Skin: General skin exam: no rashes or lesions noted Neuro: General: moves all extremities Cranial nerves: Yes Equal, round and reactive pupils present Extrem: General: Yes normal to inspection Psych: Appearance: grossly normal Results Labs 03/30/23 08:52 04/06/23 09:11 Assessment and Plan (1) Encephalopathy: Status: Acute There is several months memory problems. She has no evidence acute infection. She may have catatonic state from depression. (2) Hallucination, visual: Status: Acute Plan No treatment for infection. Check HIV and Hepatitis C. Time Spent With Patient Time: Total time managing care of this patient today ____ minutes.
[2023-04-08 08:00] VITALS: BP 114/60; PULSE 66; RESP 18; TEMP 36.6; O2SAT 95
[2023-04-08] MEDS: Atorvastatin Calcium 40 MG TABLET PO (09:20)
[2023-04-08] MEDS: LORazepam 1 MG TABLET PO ×3 (09:20→21:29)
[2023-04-08] MEDS: Famotidine 20 MG TABLET PO (09:20)
[2023-04-08] MEDS: Omeprazole 20 MG CAPSULE.DR PO (09:20)
[2023-04-08] MEDS: Empagliflozin 25 MG TABLET PO (09:21)
[2023-04-08] MEDS: HaloperidoL 1 MG TABLET 2 MG PO ×3 (09:21→21:29)
[2023-04-08] MEDS: metFORMIN HCl 500 MG TABLET PO ×2 (09:21→21:29)
[2023-04-08 09:26] LABS: Hematocrit 41.5 % (37.0-47.0); Hemoglobin 13.2 g/dl (12.0-16.0); Mean Corpuscular HGB Conc 31.8 g/dl (31.0-35.0); Mean Corpuscular Hemoglobin 27.3 pg (27.0-33.0); Mean Corpuscular Volume 85.7 fL (80.0-98.0); Mean Platelet Volume 10.6 fL (9.4-12.3); Platelet Count 208 X10*3/uL (160-400); Red Blood Count 4.84 X10*6/uL (4.20-5.50); White Blood Count 7.2 X10*3/uL (4.8-10.8)
[2023-04-08 10:12] LABS: Erythrocyte Sedimentation Rate 16 MM/HR (0-20)
[2023-04-08 10:19] LABS: Alanine Aminotransferase 18 U/L (0-31); Albumin Level 3.7 g/dL (3.5-5.0); Alkaline Phosphatase 84 U/L (39-117); Anion Gap 14 (12-20); Aspartate Amino Transferase 16 U/L (5-31); Bilirubin Total 0.5 mg/dL (0.0-1.0); Blood Urea Nitrogen 15 mg/dL (9-16); Calcium 9.1 mg/dL (8.4-10.2); Carbon Dioxide 24 mmol/L (22-29); Chloride 111 mmol/L (96-108); Creatinine Clr Calc Pharmacy 85.3; Estimated Glomerular Filt Rate > 60; Glucose Random 145 mg/dL (60-115); Magnesium 1.9 mg/dL (1.6-2.6); Phosphorus 3.7 mg/dL (2.7-4.5); Potassium 4.1 mmol/L (3.3-5.1); Sodium 145 mmol/L (135-145); Total Protein 5.9 g/dL (6.5-8.0)
[2023-04-08 10:47] LABS: Folate 7.3 ng/mL (> or = 4.0); TSH reflex Free T4 0.79 uIU/mL (0.32-4.0); Vitamin B12 714 pg/mL (200-900)
--- NOTE | 2023-04-08 20:19 | HO.PSYCHPN ---
Subjective Subjective Date of Service: 04/08/23 Reason For Visit: hallucinations Subjective Notes: Conditional Voluntary Interim History: no change in presentation. disoriented. per staff, sleeping much of days. yelling and nonsensical in group. hearing babies crying, looking for them. up at 0700 yelling, swearing. POC 144, 188. Medication Compliance: Yes Side effects from medications: No Attending Groups: Intermittent Review of Systems Acute medical concerns: No Medical Review of Systems: unchanged Review of Systems Review of Systems Pt not cooperative with interview Yes all other systems are reviewed and are negative Constitutional: Reports as per HPI, Denies chills, Denies fatigue, Denies fever(s) and Denies headache(s) Denies headache(s) Cardiovascular: Denies chest pain and Denies dyspnea Respiratory: Denies cough and Denies dyspnea Gastrointestinal: Denies abdominal pain, Denies constipation and Denies vomiting Denies headache(s) and Denies focal weakness Psychiatric: Denies auditory hallucinations, Reports hallucinations (Per the patient's daughter. Patient denies this), Denies tactile hallucinations and Denies suicidal ideation Endocrine: Denies fatigue Mental Status Exam Mental Status Exam Narrative: calm, cooperative, diminutive. general PMR. no eye contact, pacing at times, speech decr rate, decr loudness, decr prosody, decr amount. thoughts non-sequiturs and some linear/relevant interchange; paucity of thought. affect constricted, hypo-intense, labile. no SI/SIBI/HI/AVH expressed. gross cognitive impairment. Diagnostics Vital Signs (24Hr): Vital Signs - 24 hr 04/07/23 21:30 04/08/23 08:00 Temperature 96.7 F L 97.9 F Pulse Rate 75 66 Respiratory Rate 14 18 Blood Pressure 120/57 L 114/60 Pulse Oximetry 97 95 Oxygen Delivery Method Room Air Room Air BMI result Body Mass Index 31.2 Labs 04/08/23 09:08 04/08/23 09:08 Labs: Laboratory Results - last 48 hr 04/06/23 04/06/23 04/06/23 09:11 09:11 22:19 WBC RBC Hgb Hct MCV MCH MCHC RDW Plt Count MPV Absolute Nucleated RBC Nucleated RBC % (auto) ESR Sodium Potassium Chloride Carbon Dioxide Anion Gap BUN Creatinine Estim Creat Clear Calc Estimated GFR POC Glucose 181 H Random Glucose Calcium Phosphorus Magnesium Total Bilirubin AST ALT Alkaline Phosphatase Total Protein Albumin Vitamin B12 Folate TSH T.pallidum Ab (EIA) Nonreactive HIV 1&2 Ab/P24 Ag 4thGn Nonreactive 04/07/23 04/07/23 04/08/23 09:01 21:09 09:08 WBC 7.2 RBC 4.84 Hgb 13.2 Hct 41.5 MCV 85.7 MCH 27.3 MCHC 31.8 RDW 13.0 Plt Count 208 MPV 10.6 Absolute Nucleated RBC 0.000 Nucleated RBC % (auto) 0.0 ESR Sodium Potassium Chloride Carbon Dioxide Anion Gap BUN Creatinine Estim Creat Clear Calc Estimated GFR POC Glucose 164 H 241 H Random Glucose Calcium Phosphorus Magnesium Total Bilirubin AST ALT Alkaline Phosphatase Total Protein Albumin Vitamin B12 Folate TSH T.pallidum Ab (EIA) HIV 1&2 Ab/P24 Ag 4thGn 04/08/23 04/08/23 09:08 09:08 WBC RBC Hgb Hct MCV MCH MCHC RDW Plt Count MPV Absolute Nucleated RBC Nucleated RBC % (auto) ESR 16 Sodium 145 Potassium 4.1 Chloride 111 H Carbon Dioxide 24 Anion Gap 14 BUN 15 Creatinine 0.71 Estim Creat Clear Calc 85.3 Estimated GFR > 60 POC Glucose Random Glucose 145 H Calcium 9.1 Phosphorus 3.7 Magnesium 1.9 Total Bilirubin 0.5 AST 16 ALT 18 Alkaline Phosphatase 84 Total Protein 5.9 L Albumin 3.7 Vitamin B12 714 Folate 7.3 TSH 0.79 T.pallidum Ab (EIA) HIV 1&2 Ab/P24 Ag 4thGn Imaging Radiology Impressions: ITS Impressions Brain MRI 04/03/23 15:30 IMPRESSION: No acute infarct, mass lesion, intracranial hemorrhage, or evidence of hydrocephalus. Mild nonspecific T2/FLAIR hyperintensity in the cerebral white matter and danny presumably on the basis of chronic microangiopathy. Medications Medications Current Medications Acetaminophen (Acetaminophen 325 Mg Tablet) 650 mg PO Q6H PRN PRN Reason: Headache/Pain Mild Scale (1-3) Last Admin: 04/02/23 00:21 Dose: 650 mg Al Hydroxide/Mg Hydroxide (Magnesium Hydrox/Alum Hydrox 30 Ml Oral.Susp) 30 ml PO Q6H PRN PRN Reason: Heartburn/Nausea Atorvastatin Calcium (Atorvastatin Calcium 40 Mg Tablet) 40 mg PO DAILY [facility] Last Admin: 04/08/23 09:20 Dose: 40 mg Empagliflozin (Empagliflozin 25 Mg Tablet) 25 mg PO DAILY [facility] Last Admin: 04/08/23 09:21 Dose: 25 mg Famotidine (Famotidine 20 Mg Tablet) 20 mg PO DAILY [facility] Last Admin: 04/08/23 09:20 Dose: 20 mg Haloperidol (Haloperidol 1 Mg Tablet) 2 mg PO TID [facility] Last Admin: 04/08/23 14:43 Dose: 2 mg Lorazepam (Lorazepam 1 Mg Tablet) 1 mg PO TID [facility] Last Admin: 04/08/23 14:41 Dose: 1 mg Magnesium Hydroxide (Milk Of Magnesia 30 Ml Oral.Susp) 30 ml PO DAILY PRN PRN Reason: Constipation Metformin HCl (Metformin Hcl 500 Mg Tablet) 500 mg PO BID [facility] Last Admin: 04/08/23 09:21 Dose: 500 mg Omeprazole (Omeprazole 20 Mg Capsule.Dr) 20 mg PO DAILY [facility] Last Admin: 04/08/23 09:20 Dose: 20 mg Trazodone HCl (Trazodone Hcl 50 Mg Tablet) 50 mg PO BEDTIME MRX1 PRN PRN Reason: Insomnia Last Admin: 04/02/23 20:58 Dose: 50 mg Allergies Allergies Allergy/AdvReac Type Severity Reaction Status Date / Time No Known Allergies Allergy Verified 03/23/23 18:13 Assessment & Plan Assessment & Plan (1) Encephalopathy: Status: Acute Code(s): G93.40 - Encephalopathy, unspecified (2) Hallucination, visual: Status: Acute Code(s): R44.1 - Visual hallucinations Plan Inflammatory markers only very mildly elevated: CRP 0.76 Multiple screening tests have already been ordered: CJD, Paraneoplastic, RICKY, anti double stranded DNA, heavy metal screening of arsenic, lead, mercury, cadmium, HIV, tick-borne disease panel including Lyme and Josiah mountain spotted fever, Eastern equine encephalitis, West Nile virus, rheumatoid factor Will recheck CBC and CMP Will check TSH, vitamin B12, folate, ESR, magnesium, phosphorus, syphilis 04/08/23 continue treatmetn plan Reason for continued inpatient stay Substantial Risk for: harm to self, inability to function and rapid decompensation Time Spent With Patient Time: Total time managing care of this patient today ____ minutes.
[2023-04-08 21:06] LABS: Glucose, Whole Blood 143 mg/dL (60-115)
[2023-04-08 21:20] VITALS: BP 134/63; PULSE 75; RESP 16; TEMP 36.2; O2SAT 98
[2023-04-09 08:00] VITALS: BP 115/64; PULSE 66; RESP 18; TEMP 36.6; O2SAT 96
[2023-04-09 08:26] LABS: Glucose, Whole Blood 146 mg/dL (60-115)
[2023-04-09] MEDS: HaloperidoL 1 MG TABLET 2 MG PO ×2 (09:11→21:06)
[2023-04-09] MEDS: Atorvastatin Calcium 40 MG TABLET PO (09:12)
[2023-04-09] MEDS: metFORMIN HCl 500 MG TABLET PO ×2 (09:12→21:06)
[2023-04-09] MEDS: Omeprazole 20 MG CAPSULE.DR PO (09:12)
[2023-04-09] MEDS: Empagliflozin 25 MG TABLET PO (09:13)
[2023-04-09] MEDS: LORazepam 1 MG TABLET PO ×2 (09:13→21:06)
[2023-04-09] MEDS: Famotidine 20 MG TABLET PO (09:13)
--- NOTE | 2023-04-09 15:22 | PC.NURSE ---
1335 approximately. Pt was agitated swearing at 1:1 , pt sat on floor in front lunch cart. Per P Josephine ok to , give 1500 meds to include, Ativan 1mg and Haldol 2mg. pt was offered x2 and refused, Pt states thats not my medication typewriter mechanic tried to reassure Pt , however she said no
--- NOTE | 2023-04-09 17:23 | P.PNPSI_ITS ---
Subjective Subjective Date of Service: 04/09/23 Reason For Visit: hallucinations Interim History: very little change in presentation. disoriented. per staff, sleeping much of days. intermittently yelling and nonsensical in group. walking/pacing with head down and not looking where she is going, walked up to wall in hallway and only turned away when touched her head gently against the wall; hearing babies crying, looking for them. Intermittenly agitated and yelling, swearing. Medication Compliance: Yes Side effects from medications: No Attending Groups: No Review of Systems Acute medical concerns: Yes acute mental status change Medical Review of Systems: unchanged Review of Systems Review of Systems Pt not cooperative with interview Yes all other systems are reviewed and are negative Constitutional: Reports as per HPI, Denies chills, Denies fatigue, Denies fever(s) and Denies headache(s) Denies headache(s) Cardiovascular: Denies chest pain and Denies dyspnea Respiratory: Denies cough and Denies dyspnea Gastrointestinal: Denies abdominal pain, Denies constipation and Denies vomiting Denies headache(s) and Denies focal weakness Psychiatric: Denies auditory hallucinations, Reports hallucinations (Per the patient's daughter. Patient denies this), Denies tactile hallucinations and Denies suicidal ideation Endocrine: Denies fatigue Mental Status Exam Mental Status Exam Narrative: calm, cooperative, diminutive. general PMR. no eye contact, pacing at times, speech decr rate, decr loudness, decr prosody, decr amount. thoughts non- sequiturs and some linear/relevant interchange; paucity of thought. affect constricted, hypo-intense, labile. no SI/SIBI/HI/AVH expressed. gross cognitive impairment. Diagnostics Vital Signs (24Hr): Vital Signs - 24 hr 04/08/23 21:20 04/09/23 08:00 Temperature 97.2 F 97.9 F Pulse Rate 75 66 Respiratory Rate 16 18 Blood Pressure 134/63 115/64 Pulse Oximetry 98 96 Oxygen Delivery Method Room Air Room Air BMI result Body Mass Index 31.2 Labs 04/08/23 09:08 04/08/23 09:08 Labs: Laboratory Results - last 48 hr 04/07/23 04/08/23 04/08/23 21:09 09:08 09:08 WBC 7.2 RBC 4.84 Hgb 13.2 Hct 41.5 MCV 85.7 MCH 27.3 MCHC 31.8 RDW 13.0 Plt Count 208 MPV 10.6 Absolute Nucleated RBC 0.000 Nucleated RBC % (auto) 0.0 ESR 16 Sodium Potassium Chloride Carbon Dioxide Anion Gap BUN Creatinine Estim Creat Clear Calc Estimated GFR POC Glucose 241 H Random Glucose Calcium Phosphorus Magnesium Total Bilirubin AST ALT Alkaline Phosphatase Total Protein Albumin Vitamin B12 Folate TSH 04/08/23 04/08/23 04/09/23 09:08 21:00 08:15 WBC RBC Hgb Hct MCV MCH MCHC RDW Plt Count MPV Absolute Nucleated RBC Nucleated RBC % (auto) ESR Sodium 145 Potassium 4.1 Chloride 111 H Carbon Dioxide 24 Anion Gap 14 BUN 15 Creatinine 0.71 Estim Creat Clear Calc 85.3 Estimated GFR > 60 POC Glucose 143 H 146 H Random Glucose 145 H Calcium 9.1 Phosphorus 3.7 Magnesium 1.9 Total Bilirubin 0.5 AST 16 ALT 18 Alkaline Phosphatase 84 Total Protein 5.9 L Albumin 3.7 Vitamin B12 714 Folate 7.3 TSH 0.79 Imaging Radiology Impressions: ITS Impressions Brain MRI 04/03/23 15:30 IMPRESSION: No acute infarct, mass lesion, intracranial hemorrhage, or evidence of hydrocephalus. Mild nonspecific T2/FLAIR hyperintensity in the cerebral white matter and danny presumably on the basis of chronic microangiopathy. Medications Medications Current Medications Acetaminophen (Acetaminophen 325 Mg Tablet) 650 mg PO Q6H PRN PRN Reason: Headache/Pain Mild Scale (1-3) Last Admin: 04/02/23 00:21 Dose: 650 mg Al Hydroxide/Mg Hydroxide (Magnesium Hydrox/Alum Hydrox 30 Ml Oral.Susp) 30 ml PO Q6H PRN PRN Reason: Heartburn/Nausea Atorvastatin Calcium (Atorvastatin Calcium 40 Mg Tablet) 40 mg PO DAILY [facility] Last Admin: 04/09/23 09:12 Dose: 40 mg Empagliflozin (Empagliflozin 25 Mg Tablet) 25 mg PO DAILY [facility] Last Admin: 04/09/23 09:13 Dose: 25 mg Famotidine (Famotidine 20 Mg Tablet) 20 mg PO DAILY [facility] Last Admin: 04/09/23 09:13 Dose: 20 mg Haloperidol (Haloperidol 1 Mg Tablet) 2 mg PO TID [facility] Last Admin: 04/09/23 09:11 Dose: 2 mg Lorazepam (Lorazepam 1 Mg Tablet) 1 mg PO TID [facility] Last Admin: 04/09/23 09:13 Dose: 1 mg Magnesium Hydroxide (Milk Of Magnesia 30 Ml Oral.Susp) 30 ml PO DAILY PRN PRN Reason: Constipation Metformin HCl (Metformin Hcl 500 Mg Tablet) 500 mg PO BID [facility] Last Admin: 04/09/23 09:12 Dose: 500 mg Omeprazole (Omeprazole 20 Mg Capsule.Dr) 20 mg PO DAILY [facility] Last Admin: 04/09/23 09:12 Dose: 20 mg Trazodone HCl (Trazodone Hcl 50 Mg Tablet) 50 mg PO BEDTIME MRX1 PRN PRN Reason: Insomnia Last Admin: 04/02/23 20:58 Dose: 50 mg Allergies Allergies Allergy/AdvReac Type Severity Reaction Status Date / Time No Known Allergies Allergy Verified 03/23/23 18:13 Assessment & Plan Assessment & Plan (1) Encephalopathy: Status: Acute Code(s): G93.40 - Encephalopathy, unspecified (2) Hallucination, visual: Status: Acute Code(s): R44.1 - Visual hallucinations Plan Inflammatory markers only very mildly elevated: CRP 0.76 Multiple screening tests have already been ordered: CJD, Paraneoplastic, RICKY, anti double stranded DNA, heavy metal screening of arsenic, lead, mercury, cadmium, HIV, tick-borne disease panel including Lyme and Josiah mountain spotted fever, Eastern equine encephalitis, West Nile virus, rheumatoid factor Will recheck CBC and CMP Will check TSH, vitamin B12, folate, ESR, magnesium, phosphorus, syphilis 04/08/23 continue treatmetn plan 04/09/23 continue treatment plan Reason for continued inpatient stay Substantial Risk for: harm to self, inability to function and rapid decompensation Time Spent With Patient Time: Total time managing care of this patient today ____ minutes.
[2023-04-09 20:48] LABS: Glucose, Whole Blood 266 mg/dL (60-115)
--- NOTE | 2023-04-09 23:04 | P.PNIM_ITS ---
Subjective Subjective Date of Service: 04/09/23 Interval History: Follow-up for patient with Physical Exam Vital Signs: Vital Signs: Last Vital Signs Temp 97.9 F 04/09/23 08:00 Pulse 66 04/09/23 08:00 Resp 18 04/09/23 08:00 BP 115/64 04/09/23 08:00 Pulse Ox 96 04/09/23 08:00 O2 Del Method Room Air 04/09/23 08:00 BMI result Body Mass Index 31.2 Objective Data Active Medications Acetaminophen (Acetaminophen 325 Mg Tablet) 650 mg PO Q6H PRN PRN Reason: Headache/Pain Mild Scale (1-3) Last Admin: 04/02/23 00:21 Dose: 650 mg Documented By: MICKY Al Hydroxide/Mg Hydroxide (Magnesium Hydrox/Alum Hydrox 30 Ml Oral.Susp) 30 ml PO Q6H PRN PRN Reason: Heartburn/Nausea Atorvastatin Calcium (Atorvastatin Calcium 40 Mg Tablet) 40 mg PO DAILY [facility] Last Admin: 04/09/23 09:12 Dose: 40 mg Documented By: BROWN Empagliflozin (Empagliflozin 25 Mg Tablet) 25 mg PO DAILY [facility] Last Admin: 04/09/23 09:13 Dose: 25 mg Documented By: BROWN Famotidine (Famotidine 20 Mg Tablet) 20 mg PO DAILY [facility] Last Admin: 04/09/23 09:13 Dose: 20 mg Documented By: BROWN Haloperidol (Haloperidol 1 Mg Tablet) 2 mg PO TID [facility] Last Admin: 04/09/23 21:06 Dose: 2 mg Documented By: MARCELINO Lorazepam (Lorazepam 1 Mg Tablet) 1 mg PO TID [facility] Last Admin: 04/09/23 21:06 Dose: 1 mg Documented By: MARCELINO Magnesium Hydroxide (Milk Of Magnesia 30 Ml Oral.Susp) 30 ml PO DAILY PRN PRN Reason: Constipation Metformin HCl (Metformin Hcl 500 Mg Tablet) 500 mg PO BID [facility] Last Admin: 04/09/23 21:06 Dose: 500 mg Documented By: MARCELINO Omeprazole (Omeprazole 20 Mg Capsule.Dr) 20 mg PO DAILY [facility] Last Admin: 04/09/23 09:12 Dose: 20 mg Documented By: BROWN Trazodone HCl (Trazodone Hcl 50 Mg Tablet) 50 mg PO BEDTIME MRX1 PRN PRN Reason: Insomnia Last Admin: 04/02/23 20:58 Dose: 50 mg Documented By: JOHN Labs 04/08/23 09:08 04/08/23 09:08 Labs: Laboratory Results - last 24 hr 04/09/23 04/09/23 08:15 20:27 POC Glucose 146 H 266 H Assessment and Plan Time Spent With Patient Time: Total time managing care of this patient today ____ minutes.
--- NOTE | 2023-04-10 01:24 | PM.EVENT ---
Event Note Date of Service: 04/10/23 Event Note: F/U for pt with rapidly declining cognitive status. Medical consult for evaluation of possible reversible causes of declining cognitive status. Multiple attempts have been made to see pt, but pt has been sleeping and unavailable for additional interviews. Staff report pt with stable continuing confusion and occasionally responding as if to internal stimuli/auditory or visual hallucinations. F/U for lab results, which are slowly coming in. Labs reviewed: UA on 03/23/23 negative CBC WNL and no abnormalities ESR WNL CMP largely unremarkable: electrolytes, renal function, hepatic function, phosphorus, magnesium all WNL B12, Folate, TSH all WNL Tox Screen negative Rhematoid factor negative Syphyllis negative HIV negative Lyme panel negative Check ammonia, pending Check Creutzfeldt-Jose Luis Disease panel, pending Check tick panel, pending Check heavy metal panel, pending Check RICKY panel, pending Check paraneoplastic syndrome panel, pending Check [id number] DNA panel, pending Check tick panel, pending Check west nile visus panel, pending Check eastern equine encephalitis panel, pending 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 Please let us know if there are any acute questions or concerns. Time Spent With Patient Time: Total time managing care of this patient today ____ minutes.
[2023-04-10 08:20] VITALS: BP 110/64; PULSE 72; RESP 18; TEMP 36.6; O2SAT 95
[2023-04-10 08:45] LABS: Glucose, Whole Blood 158 mg/dL (60-115)
[2023-04-10 08:52] LABS: Ammonia 33 umol/L (13-55)
--- NOTE | 2023-04-10 09:32 | P.PNPSI_ITS ---
Subjective Subjective Date of Service: 04/10/23 Reason For Visit: hallucinations Interim History: Patient had been on Haldol and Ativan was started in a number of days ago unclear any benefit. Staff feel the patient has had more periods of confusion when feeding herself losing herself spatially lumbar puncture for cjd remains pending was seen by Dr. Mattson today no marked change from his perspective On exam patient was psychomotor retarded but did not show rigidity Medication Compliance: Intermittent Review of Systems Acute medical concerns: Yes ? encephalathy Mental Status Exam Mental Status Exam Narrative: calm, cooperative, diminutive. general PMR. no eye contact, pacing at times, speech decr rate, decr loudness, decr prosody, decr amount. thoughts non- sequiturs and some linear/relevant interchange; paucity of thought. affect constricted, hypo-intense, labile. no SI/SIBI/HI/AVH expressed. gross cognitive impairment.yr 2021 season fall pres ? Diagnostics Vital Signs (24Hr): BMI result Body Mass Index 31.2 Labs 04/08/23 09:08 04/08/23 09:08 Labs: Laboratory Results - last 48 hr 04/08/23 04/08/23 04/08/23 09:08 09:08 21:00 ESR 16 Sodium 145 Potassium 4.1 Chloride 111 H Carbon Dioxide 24 Anion Gap 14 BUN 15 Creatinine 0.71 Estim Creat Clear Calc 85.3 Estimated GFR > 60 POC Glucose 143 H Random Glucose 145 H Calcium 9.1 Phosphorus 3.7 Magnesium 1.9 Total Bilirubin 0.5 AST 16 ALT 18 Alkaline Phosphatase 84 Ammonia Total Protein 5.9 L Albumin 3.7 Vitamin B12 714 Folate 7.3 TSH 0.79 04/09/23 04/09/23 04/10/23 08:15 20:27 08:27 ESR Sodium Potassium Chloride Carbon Dioxide Anion Gap BUN Creatinine Estim Creat Clear Calc Estimated GFR POC Glucose 146 H 266 H Random Glucose Calcium Phosphorus Magnesium Total Bilirubin AST ALT Alkaline Phosphatase Ammonia 33 Total Protein Albumin Vitamin B12 Folate TSH 04/10/23 08:37 ESR Sodium Potassium Chloride Carbon Dioxide Anion Gap BUN Creatinine Estim Creat Clear Calc Estimated GFR POC Glucose 158 H Random Glucose Calcium Phosphorus Magnesium Total Bilirubin AST ALT Alkaline Phosphatase Ammonia Total Protein Albumin Vitamin B12 Folate TSH Imaging Radiology Impressions: ITS Impressions Brain MRI 04/03/23 15:30 IMPRESSION: No acute infarct, mass lesion, intracranial hemorrhage, or evidence of hydrocephalus. Mild nonspecific T2/FLAIR hyperintensity in the cerebral white matter and danny presumably on the basis of chronic microangiopathy. Medications Medications Current Medications Acetaminophen (Acetaminophen 325 Mg Tablet) 650 mg PO Q6H PRN PRN Reason: Headache/Pain Mild Scale (1-3) Last Admin: 04/02/23 00:21 Dose: 650 mg Al Hydroxide/Mg Hydroxide (Magnesium Hydrox/Alum Hydrox 30 Ml Oral.Susp) 30 ml PO Q6H PRN PRN Reason: Heartburn/Nausea Atorvastatin Calcium (Atorvastatin Calcium 40 Mg Tablet) 40 mg PO DAILY [facility] Last Admin: 04/09/23 09:12 Dose: 40 mg Empagliflozin (Empagliflozin 25 Mg Tablet) 25 mg PO DAILY [facility] Last Admin: 04/09/23 09:13 Dose: 25 mg Famotidine (Famotidine 20 Mg Tablet) 20 mg PO DAILY [facility] Last Admin: 04/09/23 09:13 Dose: 20 mg Haloperidol (Haloperidol 1 Mg Tablet) 2 mg PO TID [facility] Last Admin: 04/09/23 21:06 Dose: 2 mg Lorazepam (Lorazepam 1 Mg Tablet) 1 mg PO TID [facility] Last Admin: 04/09/23 21:06 Dose: 1 mg Magnesium Hydroxide (Milk Of Magnesia 30 Ml Oral.Susp) 30 ml PO DAILY PRN PRN Reason: Constipation Metformin HCl (Metformin Hcl 500 Mg Tablet) 500 mg PO BID [facility] Last Admin: 04/09/23 21:06 Dose: 500 mg Omeprazole (Omeprazole 20 Mg Capsule.Dr) 20 mg PO DAILY [facility] Last Admin: 04/09/23 09:12 Dose: 20 mg Trazodone HCl (Trazodone Hcl 50 Mg Tablet) 50 mg PO BEDTIME MRX1 PRN PRN Reason: Insomnia Last Admin: 04/02/23 20:58 Dose: 50 mg Allergies Allergies Allergy/AdvReac Type Severity Reaction Status Date / Time No Known Allergies Allergy Verified 03/23/23 18:13 Assessment & Plan Assessment & Plan (1) Encephalopathy: Status: Acute Code(s): G93.40 - Encephalopathy, unspecified (2) Hallucination, visual: Status: Acute Code(s): R44.1 - Visual hallucinations Plan Inflammatory markers only very mildly elevated: CRP 0.76 Multiple screening tests have already been ordered: CJD, Paraneoplastic, RICKY, anti double stranded DNA, heavy metal screening of arsenic, lead, mercury, cadmium, HIV, tick-borne disease panel including Lyme and Josiah mountain spotted fever, Eastern equine encephalitis, West Nile virus, rheumatoid factor Will recheck CBC and CMP Will check TSH, vitamin B12, folate, ESR, magnesium, phosphorus, syphilis 04/08/23 continue treatmetn plan 04/09/23 continue treatment plan 04/10/23 Case reviewed with neurologist. Haldol discontinued on unclear if worsening motor functioning no clear diagnosis to this point neurological versus primary psychiatric disorder presenting an unusual manner. Hospital has been waiting to do repeat lumbar puncture secondary to initial test for prion disease with an need repeat lumbar puncture if no neurological diagnosis consider ECT? Consider transfer to neurology unit this has been discussed with chief engineer's helper and attending psychiatrist Dr. Matthew and with neurologist Srinivasan Reason for continued inpatient stay Substantial Risk for: inability to function, rapid decompensation and med/psych decompensation Time Spent With Patient Time: Total time managing care of this patient today ____ minutes.
[2023-04-10] MEDS: Empagliflozin 25 MG TABLET PO (09:48)
[2023-04-10] MEDS: metFORMIN HCl 500 MG TABLET PO ×2 (09:48→21:33)
[2023-04-10] MEDS: Famotidine 20 MG TABLET PO (09:48)
[2023-04-10] MEDS: HaloperidoL 1 MG TABLET 2 MG PO (09:48)
[2023-04-10] MEDS: LORazepam 1 MG TABLET PO (09:48)
[2023-04-10] MEDS: Omeprazole 20 MG CAPSULE.DR PO (09:49)
[2023-04-10] MEDS: Atorvastatin Calcium 40 MG TABLET PO (09:49)
[2023-04-10 11:01] LABS: Alanine Aminotransferase 17 U/L (0-31); Albumin Level 4.2 g/dL (3.5-5.0); Alkaline Phosphatase 92 U/L (39-117); Anion Gap 12 (12-20); Aspartate Amino Transferase 17 U/L (5-31); Bilirubin Total 0.7 mg/dL (0.0-1.0); Blood Urea Nitrogen 19 mg/dL (9-16); Calcium 9.7 mg/dL (8.4-10.2); Carbon Dioxide 30 mmol/L (22-29); Chloride 104 mmol/L (96-108); Creatinine Clr Calc Pharmacy 74.7; Estimated Glomerular Filt Rate > 60; Glucose Random 154 mg/dL (60-115); Potassium 4.3 mmol/L (3.3-5.1); Sodium 142 mmol/L (135-145); Total Protein 6.7 g/dL (6.5-8.0)
--- NOTE | 2023-04-10 12:34 | PC.NURSE ---
Dressing dry and intact to left flank area. Urine is clear and draining into bag, pt empties on her own.
--- NOTE | 2023-04-10 13:14 | PC.NURSE ---
Pt needs assistance with lunch, she was scooping food up with spoon and tried putting it in her eye. She was also observed reaching for things in the air. Dr. Trotter notified.in person. He states he will put in for Neurology consult.
[2023-04-10 20:25] VITALS: BP 134/61; PULSE 80; RESP 18; TEMP 36.4; O2SAT 99
[2023-04-10 21:02] LABS: Glucose, Whole Blood 257 mg/dL (60-115)
[2023-04-10 21:33] LABS: Anti DNA DS Antibody 3 IU/mL
[2023-04-10] MEDS: traZODone HCL 50 MG TABLET PO (21:34)
[2023-04-10] MEDS: LORazepam 0.5 MG TABLET PO (21:34)
[2023-04-10 23:08] LABS: A. Phagocytphilium DNA,RT-PCR NOT DETECTED (NOT DETECTED); Babesia Microti DNA, RT-PCR NOT DETECTED (NOT DETECTED); Borrelia Miyamotoi,DNA RT-PCR NOT DETECTED (NOT DETECTED); E.Chaffeensis DNA RT-PCR NOT DETECTED (NOT DETECTED); Lyme(Borrelia ssp)DNA RT-PCR NOT DETECTED (NOT DETECTED)
[2023-04-11 09:13] VITALS: BP 140/68; PULSE 69; RESP 16; TEMP 36.2; O2SAT 99
[2023-04-11] MEDS: LORazepam 0.5 MG TABLET PO ×3 (09:15→21:24)
[2023-04-11] MEDS: Omeprazole 20 MG CAPSULE.DR PO (09:15)
[2023-04-11] MEDS: Empagliflozin 25 MG TABLET PO (09:15)
[2023-04-11] MEDS: Famotidine 20 MG TABLET PO (09:15)
[2023-04-11] MEDS: metFORMIN HCl 500 MG TABLET PO ×2 (09:15→21:24)
[2023-04-11] MEDS: Atorvastatin Calcium 40 MG TABLET PO (09:15)
[2023-04-11 09:52] LABS: Glucose, Whole Blood 146 mg/dL (60-115)
[2023-04-11 16:03] LABS: Arsenic, Blood <3 mcg/L (<23); Lead, Blood <1.0 mcg/dL (<3.5); Mercury, Blood <4 mcg/L (<=10)
[2023-04-11 21:14] LABS: Glucose, Whole Blood 256 mg/dL (60-115)
[2023-04-11 21:20] VITALS: BP 154/75; PULSE 74; RESP 16; TEMP 36.6; O2SAT 95
--- NOTE | 2023-04-11 22:58 | P.PNPSI_ITS ---
Subjective Subjective Date of Service: 04/11/23 Reason For Visit: hallucinations Interim History: less irritable, otherwise no change in presentation. per staff, no longer irritable. needed help getting spoon to her mouth rather than to her eyes. laughing with 1:1. showered. + art group. needed lots of redirection. did you see that? it looked like they hit my baby. slept 7 hours. incontinent of urine @0330. Mental Status Exam Mental Status Exam Narrative: calm, cooperative, diminutive. general PMR. improved eye contact, speech nml rate, nml loudness, decr prosody, decr amount. thoughts generally linear/relevant interchange; paucity of thought. affect constricted, hypo- intense, non-labile. no SI/SIBI/HI/AVH expressed. gross cognitive impairment, but appears somewhat improved from last week. Diagnostics Vital Signs (24Hr): Vital Signs - 24 hr 04/11/23 09:13 04/11/23 21:20 Temperature 97.2 F 98 F Pulse Rate 69 74 Respiratory Rate 16 16 Blood Pressure 140/68 H 154/75 H Pulse Oximetry 99 95 Oxygen Delivery Method Room Air Room Air BMI result Body Mass Index 31.2 Labs 04/08/23 09:08 04/10/23 10:19 Labs: Laboratory Results - last 48 hr 04/06/23 04/06/23 04/06/23 09:11 09:11 13:21 Sodium Potassium Chloride Carbon Dioxide Anion Gap BUN Creatinine Estim Creat Clear Calc Estimated GFR POC Glucose Random Glucose Calcium Total Bilirubin AST ALT Alkaline Phosphatase Ammonia Total Protein Albumin Whole Blood Arsenic <3 Whole Blood Lead <1.0 Mercury <4 Double Strand DNA Ab 3 A.phagocytophil DNA PCR NOT DETECTED Babesia microti DNA PCR NOT DETECTED Borrelia sp DNA (PCR) NOT DETECTED Borrelia miyamotoi (PCR) NOT DETECTED E.chaffeensis DNA (PCR) NOT DETECTED Tick-borne Disease Ab SEE NOTE 04/10/23 04/10/23 04/10/23 08:27 08:37 10:19 Sodium 142 Potassium 4.3 Chloride 104 Carbon Dioxide 30 H Anion Gap 12 BUN 19 H Creatinine 0.81 Estim Creat Clear Calc 74.7 Estimated GFR > 60 POC Glucose 158 H Random Glucose 154 H Calcium 9.7 D Total Bilirubin 0.7 AST 17 ALT 17 Alkaline Phosphatase 92 Ammonia 33 Total Protein 6.7 Albumin 4.2 Whole Blood Arsenic Whole Blood Lead Mercury Double Strand DNA Ab A.phagocytophil DNA PCR Babesia microti DNA PCR Borrelia sp DNA (PCR) Borrelia miyamotoi (PCR) E.chaffeensis DNA (PCR) Tick-borne Disease Ab 04/10/23 04/11/23 04/11/23 20:33 09:49 21:07 Sodium Potassium Chloride Carbon Dioxide Anion Gap BUN Creatinine Estim Creat Clear Calc Estimated GFR POC Glucose 257 H 146 H 256 H Random Glucose Calcium Total Bilirubin AST ALT Alkaline Phosphatase Ammonia Total Protein Albumin Whole Blood Arsenic Whole Blood Lead Mercury Double Strand DNA Ab A.phagocytophil DNA PCR Babesia microti DNA PCR Borrelia sp DNA (PCR) Borrelia miyamotoi (PCR) E.chaffeensis DNA (PCR) Tick-borne Disease Ab Imaging Radiology Impressions: ITS Impressions Brain MRI 04/03/23 15:30 IMPRESSION: No acute infarct, mass lesion, intracranial hemorrhage, or evidence of hydrocephalus. Mild nonspecific T2/FLAIR hyperintensity in the cerebral white matter and danny presumably on the basis of chronic microangiopathy. Medications Medications Current Medications Acetaminophen (Acetaminophen 325 Mg Tablet) 650 mg PO Q6H PRN PRN Reason: Headache/Pain Mild Scale (1-3) Last Admin: 04/02/23 00:21 Dose: 650 mg Al Hydroxide/Mg Hydroxide (Magnesium Hydrox/Alum Hydrox 30 Ml Oral.Susp) 30 ml PO Q6H PRN PRN Reason: Heartburn/Nausea Atorvastatin Calcium (Atorvastatin Calcium 40 Mg Tablet) 40 mg PO DAILY [facility] [place] Last Admin: 04/11/23 09:15 Dose: 40 mg Empagliflozin (Empagliflozin 25 Mg Tablet) 25 mg PO DAILY [facility] [place] Last Admin: 04/11/23 09:15 Dose: 25 mg Famotidine (Famotidine 20 Mg Tablet) 20 mg PO DAILY [facility] [place] Last Admin: 04/11/23 09:15 Dose: 20 mg Lorazepam (Lorazepam 0.5 Mg Tablet) 0.5 mg PO TID [facility] [place] Last Admin: 04/11/23 21:24 Dose: 0.5 mg Magnesium Hydroxide (Milk Of Magnesia 30 Ml Oral.Susp) 30 ml PO DAILY PRN PRN Reason: Constipation Metformin HCl (Metformin Hcl 500 Mg Tablet) 500 mg PO BID [facility] [place] Last Admin: 04/11/23 21:24 Dose: 500 mg Omeprazole (Omeprazole 20 Mg Capsule.Dr) 20 mg PO DAILY [facility] [place] Last Admin: 04/11/23 09:15 Dose: 20 mg Trazodone HCl (Trazodone Hcl 50 Mg Tablet) 50 mg PO BEDTIME MRX1 PRN PRN Reason: Insomnia Last Admin: 04/10/23 21:34 Dose: 50 mg Allergies Allergies Allergy/AdvReac Type Severity Reaction Status Date / Time No Known Allergies Allergy Verified 03/23/23 18:13 Assessment & Plan Assessment & Plan (1) Encephalopathy: Status: Acute Code(s): G93.40 - Encephalopathy, unspecified (2) Hallucination, visual: Status: Acute Code(s): R44.1 - Visual hallucinations Plan Inflammatory markers only very mildly elevated: CRP 0.76 Multiple screening tests have already been ordered: CJD, Paraneoplastic, RICKY, anti double stranded DNA, heavy metal screening of arsenic, lead, mercury, cadmium, HIV, tick-borne disease panel including Lyme and Josiah mountain spotted fever, Eastern equine encephalitis, West Nile virus, rheumatoid factor Will recheck CBC and CMP Will check TSH, vitamin B12, folate, ESR, magnesium, phosphorus, syphilis 04/08/23 continue treatmetn plan 04/09/23 continue treatment plan 04/10/23 Case reviewed with neurologist. Haldol discontinued on unclear if worsening motor functioning no clear diagnosis to this point neurological versus primary psychiatric disorder presenting an unusual manner. Hospital has been waiting to do repeat lumbar puncture secondary to initial test for prion disease with an need repeat lumbar puncture if no neurological diagnosis consider ECT? Consider transfer to neurology unit this has been discussed with chief cardiopulmonary technologist and attending psychiatrist Dr. Matthew and with neurologist Srinivasan 04/11: tick-borne Dz panel NEG, heavy metals NEG, inflammatory markers unremarkably elevated. appears notably improved in terms of lability/irritability as well as cognition since DC of anti-psychotic and lowering of ativan dosing. Reason for continued inpatient stay Substantial Risk for: inability to function Time Spent With Patient Time: Total time managing care of this patient today _25___ minutes.
--- NOTE | 2023-04-12 05:38 | PC.NURSE ---
floor-patient has comment several times to t/w that ''the floors make it hard for me to walk'' ''I don't know what to do?'' ''do I step down?'' referring to the pattern on the floor.
[2023-04-12 08:01] VITALS: BP 136/76; PULSE 78; TEMP 36.6; O2SAT 97
[2023-04-12] MEDS: LORazepam 0.5 MG TABLET PO ×2 (08:11→14:10)
[2023-04-12] MEDS: Atorvastatin Calcium 40 MG TABLET PO (08:11)
[2023-04-12] MEDS: Famotidine 20 MG TABLET PO (08:11)
[2023-04-12] MEDS: metFORMIN HCl 500 MG TABLET PO (08:12)
[2023-04-12] MEDS: Omeprazole 20 MG CAPSULE.DR PO (08:12)
[2023-04-12] MEDS: Empagliflozin 25 MG TABLET PO (08:12)
[2023-04-12 08:19] LABS: Glucose, Whole Blood 219 mg/dL (60-115)
[2023-04-12 13:19] LABS: Anti Nuclear Antibody Screen NEGATIVE (NEGATIVE)
--- NOTE | 2023-04-12 15:47 | P.PNPSI_ITS ---
Subjective Subjective Date of Service: 04/12/23 Reason For Visit: hallucinations Interim History: remains less irritable and labile, a bit better socially engaged than last week. c/o occipital FRIEND and advised to have some tylenol. reports she slept good last night, when RN report was that she did not sleep at all. per staff, woke up confused yesterday. eating well. appeared to have slept well. can't recall where her room is. last NOC was convinced the sitter was her son and was upset he would not come clean. did not sleep at all last night. lines on the floor confusing to her. Mental Status Exam Mental Status Exam Narrative: calm, cooperative, diminutive. general PMR. improved eye contact, speech nml rate, nml loudness, decr prosody, decr amount. thoughts generally l inear/relevant interchange; paucity of thought. affect constricted, hypo- intense, non-labile. no SI/SIBI/HI/AVH expressed. gross cognitive impairment, but appears somewhat improved from last week. Diagnostics Vital Signs (24Hr): Vital Signs - 24 hr 04/11/23 21:20 04/12/23 08:01 Temperature 98 F 97.8 F Pulse Rate 74 78 Respiratory Rate 16 Blood Pressure 154/75 H 136/76 Pulse Oximetry 95 97 Oxygen Delivery Method Room Air Room Air BMI result Body Mass Index 31.2 Labs 04/08/23 09:08 04/10/23 10:19 Labs: Laboratory Results - last 48 hr 04/06/23 04/06/23 04/06/23 09:11 09:11 09:11 POC Glucose Whole Blood Arsenic <3 Whole Blood Lead <1.0 Mercury <4 RICKY Screen NEGATIVE Double Strand DNA Ab 3 A.phagocytophil DNA PCR Babesia microti DNA PCR Borrelia sp DNA (PCR) Borrelia miyamotoi (PCR) E.chaffeensis DNA (PCR) Tick-borne Disease Ab 04/06/23 04/10/23 04/11/23 13:21 20:33 09:49 POC Glucose 257 H 146 H Whole Blood Arsenic Whole Blood Lead Mercury RICKY Screen Double Strand DNA Ab A.phagocytophil DNA PCR NOT DETECTED Babesia microti DNA PCR NOT DETECTED Borrelia sp DNA (PCR) NOT DETECTED Borrelia miyamotoi (PCR) NOT DETECTED E.chaffeensis DNA (PCR) NOT DETECTED Tick-borne Disease Ab SEE NOTE 04/11/23 04/12/23 21:07 08:10 POC Glucose 256 H 219 H Whole Blood Arsenic Whole Blood Lead Mercury RICKY Screen Double Strand DNA Ab A.phagocytophil DNA PCR Babesia microti DNA PCR Borrelia sp DNA (PCR) Borrelia miyamotoi (PCR) E.chaffeensis DNA (PCR) Tick-borne Disease Ab Imaging Radiology Impressions: ITS Impressions Brain MRI 04/03/23 15:30 IMPRESSION: No acute infarct, mass lesion, intracranial hemorrhage, or evidence of hydrocephalus. Mild nonspecific T2/FLAIR hyperintensity in the cerebral white matter and danny presumably on the basis of chronic microangiopathy. Medications Medications Current Medications Acetaminophen (Acetaminophen 325 Mg Tablet) 650 mg PO Q6H PRN PRN Reason: Headache/Pain Mild Scale (1-3) Last Admin: 04/02/23 00:21 Dose: 650 mg Al Hydroxide/Mg Hydroxide (Magnesium Hydrox/Alum Hydrox 30 Ml Oral.Susp) 30 ml PO Q6H PRN PRN Reason: Heartburn/Nausea Atorvastatin Calcium (Atorvastatin Calcium 40 Mg Tablet) 40 mg PO DAILY [facility] Last Admin: 04/12/23 08:11 Dose: 40 mg Empagliflozin (Empagliflozin 25 Mg Tablet) 25 mg PO DAILY [facility] Last Admin: 04/12/23 08:12 Dose: 25 mg Famotidine (Famotidine 20 Mg Tablet) 20 mg PO DAILY [facility] Last Admin: 04/12/23 08:11 Dose: 20 mg Lorazepam (Lorazepam 0.5 Mg Tablet) 0.5 mg PO TID [facility] Last Admin: 04/12/23 14:10 Dose: 0.5 mg Magnesium Hydroxide (Milk Of Magnesia 30 Ml Oral.Susp) 30 ml PO DAILY PRN PRN Reason: Constipation Metformin HCl (Metformin Hcl 500 Mg Tablet) 500 mg PO BID [facility] Last Admin: 04/12/23 08:12 Dose: 500 mg Omeprazole (Omeprazole 20 Mg Capsule.Dr) 20 mg PO DAILY [facility] Last Admin: 04/12/23 08:12 Dose: 20 mg Trazodone HCl (Trazodone Hcl 50 Mg Tablet) 50 mg PO BEDTIME MRX1 PRN PRN Reason: Insomnia Last Admin: 04/10/23 21:34 Dose: 50 mg Allergies Allergies Allergy/AdvReac Type Severity Reaction Status Date / Time No Known Allergies Allergy Verified 03/23/23 18:13 Assessment & Plan Assessment & Plan (1) Encephalopathy: Status: Acute Code(s): G93.40 - Encephalopathy, unspecified (2) Hallucination, visual: Status: Acute Code(s): R44.1 - Visual hallucinations Plan Inflammatory markers only very mildly elevated: CRP 0.76 Multiple screening tests have already been ordered: CJD, Paraneoplastic, RICKY, anti double stranded DNA, heavy metal screening of arsenic, lead, mercury, cadmium, HIV, tick-borne disease panel including Lyme and Josiah mountain spotted fever, Eastern equine encephalitis, West Nile virus, rheumatoid factor Will recheck CBC and CMP Will check TSH, vitamin B12, folate, ESR, magnesium, phosphorus, syphilis 04/08/23 continue treatmetn plan 04/09/23 continue treatment plan 04/10/23 Case reviewed with neurologist. Haldol discontinued on unclear if worsening motor functioning no clear diagnosis to this point neurological versus primary psychiatric disorder presenting an unusual manner. Hospital has been waiting to do repeat lumbar puncture secondary to initial test for prion disease with an need repeat lumbar puncture if no neurological diagnosis consider ECT? Consider transfer to neurology unit this has been discussed with scouring train operator chief and attending psychiatrist Dr. Matthew and with neurologist Srinivasan 04/11: tick-borne Dz panel NEG, heavy metals NEG, inflammatory markers unremarka irene elevated. appears notably improved in terms of lability/irritability as well as cognition since DC of anti-psychotic and lowering of ativan dosing. 04/12: continue current mgmt. stable presentation. Reason for continued inpatient stay Substantial Risk for: inability to function and rapid decompensation Time Spent With Patient Time: Total time managing care of this patient today _25___ minutes.
[2023-04-12 20:30] VITALS: BP 116/58; PULSE 75; RESP 16; O2SAT 98
[2023-04-12 20:45] LABS: Glucose, Whole Blood 159 mg/dL (60-115)
[2023-04-13 09:19] LABS: Glucose, Whole Blood 130 mg/dL (60-115)
[2023-04-13 10:16] VITALS: BP 134/66; PULSE 68; TEMP 36.7; O2SAT 98
[2023-04-13] MEDS: Famotidine 20 MG TABLET PO (10:17)
[2023-04-13] MEDS: LORazepam 0.5 MG TABLET PO ×3 (10:17→20:59)
[2023-04-13] MEDS: Atorvastatin Calcium 40 MG TABLET PO (10:17)
[2023-04-13] MEDS: metFORMIN HCl 500 MG TABLET PO ×2 (10:18→20:59)
[2023-04-13] MEDS: Empagliflozin 25 MG TABLET PO (10:18)
[2023-04-13] MEDS: Omeprazole 20 MG CAPSULE.DR PO (10:18)
--- NOTE | 2023-04-13 13:36 | PC.NURSE ---
Pt's sister Molly called ([phone]) and was frustrated that no one had discussed pt's test results with her. RN reached out to social work and MD who stated that any test result updates have to go through pt's daughter Isabel. Molly continued to express frustration but understood.
--- NOTE | 2023-04-13 14:09 | HO.PSYCHPN ---
Subjective Subjective Date of Service: 04/13/23 Reason For Visit: hallucinations Interim History: appears more sullen, reactive, irritable today. states she wants to call her sister and daughter and seems to imply she is being kept from doing that by staff, or at the very least staff are not facilitating that. encourages the calls and at the end of interview hands her off to 1:1 staff with instructions to facilitate calls. otherwise no complaints or requests. per staff, brighter, more alert. some confusion. pacing. denies Sx. says she's going to leave her ... he just stays in bed all day and doesn't work. Mental Status Exam Mental Status Exam Narrative: calm, cooperative, diminutive. disheveled. general PMR. fair eye contact, speech nml rate, nml loudness, decr prosody, decr amount. thoughts generally linear/relevant interchange; paucity of thought. affect constricted, hypo-intense, non-labile. no SI/SIBI/HI/AVH expressed. gross cognitive impairment, but appears somewhat improved from last week. Diagnostics Vital Signs (24Hr): Vital Signs - 24 hr 04/12/23 20:30 04/13/23 10:16 Temperature 98.1 F Pulse Rate 75 68 Respiratory Rate 16 Blood Pressure 116/58 L 134/66 Pulse Oximetry 98 98 Oxygen Delivery Method Room Air Room Air BMI result Body Mass Index 31.2 Labs 04/08/23 09:08 04/10/23 10:19 Labs: Laboratory Results - last 48 hr 04/06/23 04/06/23 04/11/23 09:11 09:11 21:07 POC Glucose 256 H Whole Blood Arsenic <3 Whole Blood Lead <1.0 Mercury <4 RICKY Screen NEGATIVE 04/12/23 04/12/23 04/13/23 08:10 20:37 09:15 POC Glucose 219 H 159 H 130 H Whole Blood Arsenic Whole Blood Lead Mercury RICKY Screen Imaging Radiology Impressions: ITS Impressions Brain MRI 04/03/23 15:30 IMPRESSION: No acute infarct, mass lesion, intracranial hemorrhage, or evidence of hydrocephalus. Mild nonspecific T2/FLAIR hyperintensity in the cerebral white matter and danny presumably on the basis of chronic microangiopathy. Medications Medications Current Medications Acetaminophen (Acetaminophen 325 Mg Tablet) 650 mg PO Q6H PRN PRN Reason: Headache/Pain Mild Scale (1-3) Last Admin: 04/02/23 00:21 Dose: 650 mg Al Hydroxide/Mg Hydroxide (Magnesium Hydrox/Alum Hydrox 30 Ml Oral.Susp) 30 ml PO Q6H PRN PRN Reason: Heartburn/Nausea Atorvastatin Calcium (Atorvastatin Calcium 40 Mg Tablet) 40 mg PO DAILY [facility] Last Admin: 04/13/23 10:17 Dose: 40 mg Empagliflozin (Empagliflozin 25 Mg Tablet) 25 mg PO DAILY [facility] Last Admin: 04/13/23 10:18 Dose: 25 mg Famotidine (Famotidine 20 Mg Tablet) 20 mg PO DAILY [facility] Last Admin: 04/13/23 10:17 Dose: 20 mg Lorazepam (Lorazepam 0.5 Mg Tablet) 0.5 mg PO TID [facility] Last Admin: 04/13/23 10:17 Dose: 0.5 mg Magnesium Hydroxide (Milk Of Magnesia 30 Ml Oral.Susp) 30 ml PO DAILY PRN PRN Reason: Constipation Metformin HCl (Metformin Hcl 500 Mg Tablet) 500 mg PO BID [facility] Last Admin: 04/13/23 10:18 Dose: 500 mg Omeprazole (Omeprazole 20 Mg Capsule.Dr) 20 mg PO DAILY [facility] Last Admin: 04/13/23 10:18 Dose: 20 mg Trazodone HCl (Trazodone Hcl 50 Mg Tablet) 50 mg PO BEDTIME MRX1 PRN PRN Reason: Insomnia Last Admin: 04/10/23 21:34 Dose: 50 mg Allergies Allergies Allergy/AdvReac Type Severity Reaction Status Date / Time No Known Allergies Allergy Verified 03/23/23 18:13 Assessment & Plan Assessment & Plan (1) Encephalopathy: Status: Acute Code(s): G93.40 - Encephalopathy, unspecified (2) Hallucination, visual: Status: Acute Code(s): R44.1 - Visual hallucinations Plan Inflammatory markers only very mildly elevated: CRP 0.76 Multiple screening tests have already been ordered: CJD, Paraneoplastic, RICKY, anti double stranded DNA, heavy metal screening of arsenic, lead, mercury, cadmium, HIV, tick-borne disease panel including Lyme and Josiah mountain spotted fever, Eastern equine encephalitis, West Nile virus, rheumatoid factor Will recheck CBC and CMP Will check TSH, vitamin B12, folate, ESR, magnesium, phosphorus, syphilis 04/08/23 continue treatmetn plan 04/09/23 continue treatment plan 04/10/23 Case reviewed with neurologist. Haldol discontinued on unclear if worsening motor functioning no clear diagnosis to this point neurological versus primary psychiatric disorder presenting an unusual manner. Hospital has been waiting to do repeat lumbar puncture secondary to initial test for prion disease with an need repeat lumbar puncture if no neurological diagnosis consider ECT? Consider transfer to neurology unit this has been discussed with chief quality officer and attending psychiatrist Dr. Matthew and with neurologist Srinivasan 04/11: tick-borne Dz panel NEG, heavy metals NEG, inflammatory markers unremarkably elevated. appears notably improved in terms of lability/irritability as well as cognition since DC of anti-psychotic and lowering of ativan dosing. 04/12: continue current mgmt. stable presentation. 04/13: continue current mgmt. stable. contacted lab re CJD result status, awaiting response. Reason for continued inpatient stay Substantial Risk for: inability to function and rapid decompensation Time Spent With Patient Time: Total time managing care of this patient today __25__ minutes.
--- NOTE | 2023-04-13 14:25 | PM.EVENT ---
Event Note Date of Service: 04/13/23 Event Note: Event Note: F/U for pt with rapidly declining cognitive status. Medical consult for evaluation of possible reversible causes of declining cognitive status. F/U for lab results, which are slowly coming in. All labs so far have been negative and or within normal limits. Labs reviewed: UA on 03/23/23 negative CBC WNL and no abnormalities ESR WNL CRP minimally elevated at 0.76 CMP largely unremarkable: electrolytes, renal function, hepatic function, phosphorus, magnesium all WNL B12, Folate, TSH all WNL Tox Screen negative Rhematoid factor negative Syphyllis negative HIV negative Lyme panel negative Ammonia WNL Heavy metal panel -- arsenic, lead, mercury -- all negative Anti-double strand DNA negative Tick panel negative: phagocytophil, babesia, borrelia, chaffeensis Check Creutzfeldt-Jose Luis Disease panel, pending Check Rickettsia panel, pending Check RICKY panel, pending Check paraneoplastic syndrome panel, pending Check west nile visus panel, pending Check eastern equine encephalitis panel, pending 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 Please let us know if there are any acute questions or concerns. Time Spent With Patient Time: Total time managing care of this patient today ____ minutes.
[2023-04-13 15:33] LABS: Hu Antibody Screen, IFA Serum NEGATIVE (NEGATIVE)
[2023-04-13 20:05] VITALS: BP 137/70; PULSE 87; RESP 16; TEMP 36.6; O2SAT 98
[2023-04-13 20:57] LABS: Glucose, Whole Blood 259 mg/dL (60-115)
[2023-04-13] MEDS: traZODone HCL 50 MG TABLET PO (20:59)
[2023-04-13 22:49] LABS: Rocky Mtn. Spot. Fever IgG Ab Not Detected (Not Detected); Rocky Mtn.Spot. Fever IgM Ab Not Detected (Not Detected)
[2023-04-14 08:15] LABS: Glucose, Whole Blood 140 mg/dL (60-115)
[2023-04-14] MEDS: Omeprazole 20 MG CAPSULE.DR PO (08:21)
[2023-04-14] MEDS: buPROPion HCl XL 150 MG TAB.ER.24H PO (08:21)
[2023-04-14] MEDS: metFORMIN HCl 500 MG TABLET PO ×2 (08:22→21:22)
[2023-04-14] MEDS: LORazepam 0.5 MG TABLET PO ×2 (08:22→21:22)
[2023-04-14] MEDS: Famotidine 20 MG TABLET PO (08:22)
[2023-04-14] MEDS: Atorvastatin Calcium 40 MG TABLET PO (08:23)
[2023-04-14] MEDS: Empagliflozin 25 MG TABLET PO (08:23)
[2023-04-14 08:30] VITALS: BP 133/63; PULSE 66; TEMP 36.6; O2SAT 98
--- NOTE | 2023-04-14 16:15 | HO.PSYCHPN ---
Subjective Subjective Date of Service: 04/14/23 Reason For Visit: hallucinations Interim History: calm, cooperative, pleasant. not oriented to year, or place, or purpose. feels her mood is getting better, i think. per staff, POC 130, 259. CJD NEG. couldn't find bathroom in her room. said she couldn't find her bed. feeling tired during the day. Mental Status Exam Mental Status Exam Narrative: calm, cooperative, diminutive. disheveled. general PMR. fair eye contact, speech nml rate, nml loudness, decr prosody, decr amount. thoughts generally linear/relevant interchange; paucity of thought. affect constricted, hypo-intense, non-labile. no SI/SIBI/HI/AVH expressed. gross cognitive impairment, but appears somewhat improved from last week. Diagnostics Vital Signs (24Hr): Vital Signs - 24 hr 04/13/23 20:05 04/14/23 08:30 Temperature 97.8 F 97.9 F Pulse Rate 87 66 Respiratory Rate 16 Blood Pressure 137/70 133/63 Pulse Oximetry 98 98 Oxygen Delivery Method Room Air Room Air BMI result Body Mass Index 31.2 Labs 04/08/23 09:08 04/10/23 10:19 Labs: Laboratory Results - last 48 hr 03/30/23 04/06/23 04/06/23 Unknown 09:11 09:11 POC Glucose RICKY Titer TNP RICKY Titer 2 TNP RICKY Titer 3 TNP RICKY Pattern TNP RICKY Pattern 2 TNP RICKY Pattern 3 TNP Anti-Hu Antibody NEGATIVE Arbovirus Interpret [place] Enceph IgM West Nile Virus IgM Ab [place]ettsia IgG Titer Rickettsia IgG Ab [place] IgM Titer Ricketts[place] IgM Ab Ref Lab Test Result SEE RESULTS IN EMR 04/06/23 04/06/23 04/06/23 09:11 13:21 13:21 POC Glucose RICKY Titer RICKY Titer 2 RICKY Titer 3 RICKY Pattern RICKY Pattern 2 RICKY Pattern 3 Anti-Hu Antibody Arbovirus Interpret SEE NOTE [place] Equine Enceph IgM SEE NOTE West Nile Virus IgM Ab SEE NOTE Rickettsia IgG Titer TNP [place] IgG Ab Not Detected [place] IgM Titer TNP [place] IgM Ab Not Detected Ref Lab Test Result SEE NOTE 04/12/23 04/13/23 04/13/23 20:37 09:15 20:52 POC Glucose 159 H 130 H 259 H RICKY Titer RICKY Titer 2 RICKY Titer 3 RICKY Pattern RICKY Pattern 2 RICKY Pattern 3 Anti-Hu Antibody Arbovirus Interpret [place] Enceph IgM West Nile Virus IgM Ab [place] IgG Titer [place] IgG Ab [place] IgM Titer Rickettsia IgM Ab Ref Lab Test Result 04/14/23 08:11 POC Glucose 140 H RICKY Titer RICKY Titer 2 RICKY Titer 3 RICKY Pattern RICKY Pattern 2 RICKY Pattern 3 Anti-Hu Antibody Arbovirus Interpret [place] Enceph IgM West Nile Virus IgM Ab [place] IgG Titer [place]etts[place] IgG Ab [place]etts[place] IgM Titer Rickettsia IgM Ab Ref Lab Test Result Imaging Radiology Impressions: ITS Impressions Brain MRI 04/03/23 15:30 IMPRESSION: No acute infarct, mass lesion, intracranial hemorrhage, or evidence of hydrocephalus. Mild nonspecific T2/FLAIR hyperintensity in the cerebral white matter and danny presumably on the basis of chronic microangiopathy. Medications Medications Current Medications Acetaminophen (Acetaminophen 325 Mg Tablet) 650 mg PO Q6H PRN PRN Reason: Headache/Pain Mild Scale (1-3) Last Admin: 04/02/23 00:21 Dose: 650 mg Al Hydroxide/Mg Hydroxide (Magnesium Hydrox/Alum Hydrox 30 Ml Oral.Susp) 30 ml PO Q6H PRN PRN Reason: Heartburn/Nausea Atorvastatin Calcium (Atorvastatin Calcium 40 Mg Tablet) 40 mg PO DAILY [facility] Last Admin: 04/14/23 08:23 Dose: 40 mg Bupropion HCl (Bupropion Hcl Xl 150 Mg Tab.Er.24h) 150 mg PO DAILY [facility] Last Admin: 04/14/23 08:21 Dose: 150 mg Empagliflozin (Empagliflozin 25 Mg Tablet) 25 mg PO DAILY [facility] Last Admin: 04/14/23 08:23 Dose: 25 mg Famotidine (Famotidine 20 Mg Tablet) 20 mg PO DAILY [facility] Last Admin: 04/14/23 08:22 Dose: 20 mg Lorazepam (Lorazepam 0.5 Mg Tablet) 0.5 mg PO BID [facility] Magnesium Hydroxide (Milk Of Magnesia 30 Ml Oral.Susp) 30 ml PO DAILY PRN PRN Reason: Constipation Metformin HCl (Metformin Hcl 500 Mg Tablet) 500 mg PO BID [facility] Last Admin: 04/14/23 08:22 Dose: 500 mg Omeprazole (Omeprazole 20 Mg Capsule.Dr) 20 mg PO DAILY [facility] Last Admin: 04/14/23 08:21 Dose: 20 mg Trazodone HCl (Trazodone Hcl 50 Mg Tablet) 50 mg PO BEDTIME MRX1 PRN PRN Reason: Insomnia Last Admin: 04/13/23 20:59 Dose: 50 mg Allergies Allergies Allergy/AdvReac Type Severity Reaction Status Date / Time No Known Allergies Allergy Verified 03/23/23 18:13 Assessment & Plan Assessment & Plan (1) Encephalopathy: Status: Acute Code(s): G93.40 - Encephalopathy, unspecified (2) Hallucination, visual: Status: Acute Code(s): R44.1 - Visual hallucinations Plan Inflammatory markers only very mildly elevated: CRP 0.76 Multiple screening tests have already been ordered: CJD, Paraneoplastic, RICKY, anti double stranded DNA, heavy metal screening of arsenic, lead, mercury, cadmium, HIV, tick-borne disease panel including Lyme and Josiah mountain spotted fever, Eastern equine encephalitis, West Nile virus, rheumatoid factor Will recheck CBC and CMP Will check TSH, vitamin B12, folate, ESR, magnesium, phosphorus, syphilis 04/08/23 continue treatmetn plan 04/09/23 continue treatment plan 04/10/23 Case reviewed with neurologist. Haldol discontinued on unclear if worsening motor functioning no clear diagnosis to this point neurological versus primary psychiatric disorder presenting an unusual manner. Hospital has been waiting to do repeat lumbar puncture secondary to initial test for prion disease with an need repeat lumbar puncture if no neurological diagnosis consider ECT? Consider transfer to neurology unit this has been discussed with [facility] operations intelligence chief and attending psychiatrist Dr. Matthew and with neurologist Srinivasan 04/11: tick-borne Dz panel NEG, heavy metals NEG, inflammatory markers unremarkably elevated. appears notably improved in terms of lability/irritability as well as cognition since DC of anti-psychotic and lowering of ativan dosing. 04/12: continue current mgmt. stable presentation. 04/13: continue current mgmt. stable. contacted lab re CJD result status, awaiting response. 04/14: CJD NEG. will plan for LP early next week. no change in presentation. taper ativan. discussed case with pt's daughter. Reason for continued inpatient stay Substantial Risk for: inability to function Time Spent With Patient Time: Total time managing care of this patient today __45__ minutes.
[2023-04-14 20:11] LABS: Glucose, Whole Blood 214 mg/dL (60-115)
[2023-04-14 20:15] VITALS: BP 127/75; PULSE 73; RESP 18; TEMP 36.7; O2SAT 99
--- NOTE | 2023-04-15 05:40 | PC.NURSE ---
Jessy is noted to be awake until approximately 2130. she C/O a little depression but then stated she feel very sad . she was awake at 0200 sitting at the side of her bed with a worried look on her face. she stated that she was worried about the children have you ever seen kids do something like that before patient was reassured. she declined any PRN medications as she was worried about being Groggy in the morning. she was awake for the day by 0500. remains confused with a delusional thought process
[2023-04-15 06:00] VITALS: BP 134/80; PULSE 70; RESP 18; TEMP 36.8; O2SAT 98
[2023-04-15] MEDS: metFORMIN HCl 500 MG TABLET PO ×2 (09:00→21:51)
[2023-04-15] MEDS: Atorvastatin Calcium 40 MG TABLET PO (09:00)
[2023-04-15 09:01] LABS: Glucose, Whole Blood 144 mg/dL (60-115)
[2023-04-15] MEDS: Empagliflozin 25 MG TABLET PO (09:01)
[2023-04-15] MEDS: Omeprazole 20 MG CAPSULE.DR PO (09:01)
[2023-04-15] MEDS: LORazepam 0.5 MG TABLET PO ×2 (09:01→21:51)
[2023-04-15] MEDS: buPROPion HCl XL 150 MG TAB.ER.24H PO (09:01)
[2023-04-15] MEDS: Famotidine 20 MG TABLET PO (09:01)
--- NOTE | 2023-04-15 17:24 | HO.PSYCHPN ---
Subjective Subjective Date of Service: 04/15/23 Reason For Visit: hallucinations Subjective Notes: Conditional Voluntary Interim History: Pt continues with one to one due confusion and disorientation. Pt reports she is waiting for daughter because she is going somewhere. She does with some prompting able to say that she is here in hospital because she has memory problems. She is not sure how long she has been here or what others are doing on the unit. She denies physical concerns. No aggression or agitation. No signs of psychosis. Medication Compliance: Yes Review of Systems Review of Systems Pt not cooperative with interview Yes all other systems are reviewed and are negative Constitutional: Reports as per HPI, Denies chills, Denies fatigue, Denies fever(s) and Denies headache(s) Denies headache(s) Cardiovascular: Denies chest pain and Denies dyspnea Respiratory: Denies cough and Denies dyspnea Gastrointestinal: Denies abdominal pain, Denies constipation and Denies vomiting Denies headache(s) and Denies focal weakness Psychiatric: Denies auditory hallucinations, Reports hallucinations (Per the patient's daughter. Patient denies this), Denies tactile hallucinations and Denies suicidal ideation Endocrine: Denies fatigue Mental Status Exam Mental Status Exam Narrative: calm, cooperative, diminutive. disheveled. general PMR. fair eye contact, speech nml rate, nml loudness, decr prosody, decr amount. thoughts generally linear/relevant interchange; paucity of thought. affect constricted, hypo-intense, non-labile. no SI/SIBI/HI/AVH expressed. gross cognitive impairment, but appears somewhat improved from last week. Diagnostics Vital Signs (24Hr): Vital Signs - 24 hr 04/14/23 20:15 04/15/23 06:00 Temperature 98.0 F 98.2 F Pulse Rate 73 70 Respiratory Rate 18 18 Blood Pressure 127/75 134/80 Pulse Oximetry 99 98 Oxygen Delivery Method Room Air Room Air BMI result Body Mass Index 31.2 Labs 04/08/23 09:08 04/10/23 10:19 Labs: Laboratory Results - last 48 hr 03/30/23 04/06/23 04/06/23 Unknown 09:11 13:21 POC Glucose Arbovirus Interpret SEE NOTE [place] Enceph IgM SEE NOTE West Nile Virus IgM Ab SEE NOTE Rickettsia IgG Titer TNP Rickettsia IgG Ab Not Detected [place]etts[place] IgM Titer TNP [place]etts[place] IgM Ab Not Detected Ref Lab Test Result SEE RESULTS IN EMR 04/06/23 04/13/23 04/14/23 13:21 20:52 08:11 POC Glucose 259 H 140 H Arbovirus Interpret [place] Enceph IgM West Nile Virus IgM Ab [place] IgG Titer Rickettsia IgG Ab [place]ettsia IgM Titer Rickettsia IgM Ab Ref Lab Test Result SEE NOTE 04/14/23 04/15/23 20:05 08:57 POC Glucose 214 H 144 H Arbovirus Interpret [place] Enceph IgM West Nile Virus IgM Ab [place] IgG Titer Rickettsia IgG Ab [place]ettsia IgM Titer Rickettsia IgM Ab Ref Lab Test Result Imaging Radiology Impressions: ITS Impressions Brain MRI 04/03/23 15:30 IMPRESSION: No acute infarct, mass lesion, intracranial hemorrhage, or evidence of hydrocephalus. Mild nonspecific T2/FLAIR hyperintensity in the cerebral white matter and danny presumably on the basis of chronic microangiopathy. Medications Medications Current Medications Acetaminophen (Acetaminophen 325 Mg Tablet) 650 mg PO Q6H PRN PRN Reason: Headache/Pain Mild Scale (1-3) Last Admin: 04/02/23 00:21 Dose: 650 mg Al Hydroxide/Mg Hydroxide (Magnesium Hydrox/Alum Hydrox 30 Ml Oral.Susp) 30 ml PO Q6H PRN PRN Reason: Heartburn/Nausea Atorvastatin Calcium (Atorvastatin Calcium 40 Mg Tablet) 40 mg PO DAILY [facility] Last Admin: 04/15/23 09:00 Dose: 40 mg Bupropion HCl (Bupropion Hcl Xl 150 Mg Tab.Er.24h) 150 mg PO DAILY [facility] Last Admin: 04/15/23 09:01 Dose: 150 mg Empagliflozin (Empagliflozin 25 Mg Tablet) 25 mg PO DAILY [facility] Last Admin: 04/15/23 09:01 Dose: 25 mg Famotidine (Famotidine 20 Mg Tablet) 20 mg PO DAILY [facility] Last Admin: 04/15/23 09:01 Dose: 20 mg Lorazepam (Lorazepam 0.5 Mg Tablet) 0.5 mg PO BID [facility] Last Admin: 04/15/23 09:01 Dose: 0.5 mg Magnesium Hydroxide (Milk Of Magnesia 30 Ml Oral.Susp) 30 ml PO DAILY PRN PRN Reason: Constipation Metformin HCl (Metformin Hcl 500 Mg Tablet) 500 mg PO BID [facility] Last Admin: 04/15/23 09:00 Dose: 500 mg Omeprazole (Omeprazole 20 Mg Capsule.Dr) 20 mg PO DAILY [facility] Last Admin: 04/15/23 09:01 Dose: 20 mg Trazodone HCl (Trazodone Hcl 50 Mg Tablet) 50 mg PO BEDTIME MRX1 PRN PRN Reason: Insomnia Last Admin: 04/13/23 20:59 Dose: 50 mg Allergies Allergies Allergy/AdvReac Type Severity Reaction Status Date / Time No Known Allergies Allergy Verified 03/23/23 18:13 Assessment & Plan Assessment & Plan (1) Encephalopathy: Status: Acute Code(s): G93.40 - Encephalopathy, unspecified (2) Hallucination, visual: Status: Acute Code(s): R44.1 - Visual hallucinations Plan Inflammatory markers only very mildly elevated: CRP 0.76 Multiple screening tests have already been ordered: CJD, Paraneoplastic, RICKY, anti double stranded DNA, heavy metal screening of arsenic, lead, mercury, cadmium, HIV, tick-borne disease panel including Lyme and Josiah mountain spotted fever, Eastern equine encephalitis, West Nile virus, rheumatoid factor Will recheck CBC and CMP Will check TSH, vitamin B12, folate, ESR, magnesium, phosphorus, syphilis 04/08/23 continue treatmetn plan 04/09/23 continue treatment plan 04/10/23 Case reviewed with neurologist. Haldol discontinued on unclear if worsening motor functioning no clear diagnosis to this point neurological versus primary psychiatric disorder presenting an unusual manner. Hospital has been waiting to do repeat lumbar puncture secondary to initial test for prion disease with an need repeat lumbar puncture if no neurological diagnosis consider ECT? Consider transfer to neurology unit this has been discussed with chief of staff and attending psychiatrist Dr. Matthew and with neurologist Srinivasan 04/11: tick-borne Dz panel NEG, heavy metals NEG, inflammatory markers unremarkably elevated. appears notably improved in terms of lability/irritability as well as cognition since DC of anti-psychotic and lowering of ativan dosing. 04/12: continue current mgmt. stable presentation. 04/13: continue current mgmt. stable. contacted lab re CJD result status, awaiting response. 04/14: CJD NEG. will plan for LP early next week. no change in presentation. taper ativan. discussed case with pt's daughter. 04/15 continue tx. Reason for continued inpatient stay Substantial Risk for: inability to function Time Spent With Patient Time: Total time managing care of this patient today ____ minutes.
[2023-04-15 21:50] VITALS: BP 141/93; PULSE 73; RESP 16; TEMP 36.2; O2SAT 99
[2023-04-15] MEDS: traZODone HCL 50 MG TABLET PO (21:51)
[2023-04-16 00:22] LABS: Glucose, Whole Blood 175 mg/dL (60-115)
[2023-04-16 06:00] VITALS: BP 132/61; PULSE 69; RESP 18; TEMP 36.7; O2SAT 100
[2023-04-16] MEDS: Famotidine 20 MG TABLET PO (08:43)
[2023-04-16] MEDS: metFORMIN HCl 500 MG TABLET PO ×2 (08:43→21:05)
[2023-04-16] MEDS: buPROPion HCl XL 150 MG TAB.ER.24H PO (08:43)
[2023-04-16] MEDS: Omeprazole 20 MG CAPSULE.DR PO (08:43)
[2023-04-16] MEDS: Empagliflozin 25 MG TABLET PO (08:43)
[2023-04-16] MEDS: Atorvastatin Calcium 40 MG TABLET PO (08:44)
[2023-04-16] MEDS: LORazepam 0.5 MG TABLET PO ×2 (08:44→21:05)
[2023-04-16 08:45] LABS: Glucose, Whole Blood 132 mg/dL (60-115)
--- NOTE | 2023-04-16 18:26 | HO.PSYCHPN ---
Subjective Subjective Date of Service: 04/16/23 Reason For Visit: hallucinations Subjective Notes: Conditional Voluntary Interim History: Pt continues with one to one due confusion and disorientation. Pt reports doing well. when asked who visit her yesterday, pt able to tell her daughter did. She reports painting. Per nursing, pt rearranging clothes on and off later in evening. She denies physical concerns. No aggression or agitation. No signs of psychosis. Review of Systems Review of Systems Pt not cooperative with interview Yes all other systems are reviewed and are negative Constitutional: Reports as per HPI, Denies chills, Denies fatigue, Denies fever(s) and Denies headache(s) Denies headache(s) Cardiovascular: Denies chest pain and Denies dyspnea Respiratory: Denies cough and Denies dyspnea Gastrointestinal: Denies abdominal pain, Denies constipation and Denies vomiting Denies headache(s) and Denies focal weakness Psychiatric: Denies auditory hallucinations, Reports hallucinations (Per the patient's daughter. Patient denies this), Denies tactile hallucinations and Denies suicidal ideation Endocrine: Denies fatigue Mental Status Exam Mental Status Exam Narrative: calm, cooperative, diminutive. disheveled. general PMR. fair eye contact, speech nml rate, nml loudness, decr prosody, decr amount. thoughts generally linear/relevant interchange; paucity of thought. affect constricted, hypo-intense, non-labile. no SI/SIBI/HI/AVH expressed. gross cognitive impairment, but appears somewhat improved from last week. Diagnostics Vital Signs (24Hr): Vital Signs - 24 hr 04/15/23 21:50 04/16/23 06:00 Temperature 97.1 F 98.0 F Pulse Rate 73 69 Respiratory Rate 16 18 Blood Pressure 141/93 H 132/61 Pulse Oximetry 99 100 Oxygen Delivery Method Room Air Room Air BMI result Body Mass Index 31.2 Labs 04/08/23 09:08 04/10/23 10:19 Labs: Laboratory Results - last 48 hr 04/14/23 04/15/23 04/15/23 20:05 08:57 21:48 POC Glucose 214 H 144 H 175 H 04/16/23 08:41 POC Glucose 132 H Imaging Radiology Impressions: ITS Impressions Brain MRI 04/03/23 15:30 IMPRESSION: No acute infarct, mass lesion, intracranial hemorrhage, or evidence of hydrocephalus. Mild nonspecific T2/FLAIR hyperintensity in the cerebral white matter and danny presumably on the basis of chronic microangiopathy. Medications Medications Current Medications Acetaminophen (Acetaminophen 325 Mg Tablet) 650 mg PO Q6H PRN PRN Reason: Headache/Pain Mild Scale (1-3) Last Admin: 04/02/23 00:21 Dose: 650 mg Al Hydroxide/Mg Hydroxide (Magnesium Hydrox/Alum Hydrox 30 Ml Oral.Susp) 30 ml PO Q6H PRN PRN Reason: Heartburn/Nausea Atorvastatin Calcium (Atorvastatin Calcium 40 Mg Tablet) 40 mg PO DAILY [facility] Last Admin: 04/16/23 08:44 Dose: 40 mg Bupropion HCl (Bupropion Hcl Xl 150 Mg Tab.Er.24h) 150 mg PO DAILY [facility] Last Admin: 04/16/23 08:43 Dose: 150 mg Empagliflozin (Empagliflozin 25 Mg Tablet) 25 mg PO DAILY [facility] Last Admin: 04/16/23 08:43 Dose: 25 mg Famotidine (Famotidine 20 Mg Tablet) 20 mg PO DAILY [facility] Last Admin: 04/16/23 08:43 Dose: 20 mg Lorazepam (Lorazepam 0.5 Mg Tablet) 0.5 mg PO BID [facility] Last Admin: 04/16/23 08:44 Dose: 0.5 mg Magnesium Hydroxide (Milk Of Magnesia 30 Ml Oral.Susp) 30 ml PO DAILY PRN PRN Reason: Constipation Metformin HCl (Metformin Hcl 500 Mg Tablet) 500 mg PO BID [facility] Last Admin: 04/16/23 08:43 Dose: 500 mg Omeprazole (Omeprazole 20 Mg Capsule.Dr) 20 mg PO DAILY [facility] Last Admin: 04/16/23 08:43 Dose: 20 mg Trazodone HCl (Trazodone Hcl 50 Mg Tablet) 50 mg PO BEDTIME MRX1 PRN PRN Reason: Insomnia Last Admin: 04/15/23 21:51 Dose: 50 mg Allergies Allergies Allergy/AdvReac Type Severity Reaction Status Date / Time No Known Allergies Allergy Verified 03/23/23 18:13 Assessment & Plan Assessment & Plan (1) Encephalopathy: Status: Acute Code(s): G93.40 - Encephalopathy, unspecified (2) Hallucination, visual: Status: Acute Code(s): R44.1 - Visual hallucinations Plan Inflammatory markers only very mildly elevated: CRP 0.76 Multiple screening tests have already been ordered: CJD, Paraneoplastic, RICKY, anti double stranded DNA, heavy metal screening of arsenic, lead, mercury, cadmium, HIV, tick-borne disease panel including Lyme and Josiah mountain spotted fever, Eastern equine encephalitis, West Nile virus, rheumatoid factor Will recheck CBC and CMP Will check TSH, vitamin B12, folate, ESR, magnesium, phosphorus, syphilis 04/08/23 continue treatmetn plan 04/09/23 continue treatment plan 04/10/23 Case reviewed with neurologist. Haldol discontinued on unclear if worsening motor functioning no clear diagnosis to this point neurological versus primary psychiatric disorder presenting an unusual manner. Hospital has been waiting to do repeat lumbar puncture secondary to initial test for prion disease with an need repeat lumbar puncture if no neurological diagnosis consider ECT? Consider transfer to neurology unit this has been discussed with plant chief and attending psychiatrist Dr. Matthew and with neurologist Srinivasan 04/11: tick-borne Dz panel NEG, heavy metals NEG, inflammatory markers unremarkably elevated. appears notably improved in terms of lability/irritability as well as cognition since DC of anti-psychotic and lowering of ativan dosing. 04/12: continue current mgmt. stable presentation. 04/13: continue current mgmt. stable. contacted lab re CJD result status, awaiting response. 04/14: CJD NEG. will plan for LP early next week. no change in presentation. taper ativan. discussed case with pt's daughter. 04/15 continue tx 04/16 continue tx. Reason for continued inpatient stay Substantial Risk for: inability to function Time Spent With Patient Time: Total time managing care of this patient today ____ minutes.
[2023-04-16 20:28] VITALS: BP 117/72; PULSE 71; RESP 16; TEMP 36.6; O2SAT 99
[2023-04-16 20:42] LABS: Glucose, Whole Blood 233 mg/dL (60-115)
[2023-04-17 07:30] LABS: Creatinine Clr Calc Pharmacy 70.4; Estimated Glomerular Filt Rate > 60
[2023-04-17 08:34] LABS: Glucose, Whole Blood 211 mg/dL (60-115)
[2023-04-17] MEDS: buPROPion HCl XL 150 MG TAB.ER.24H PO (10:31)
[2023-04-17] MEDS: Empagliflozin 25 MG TABLET PO (10:32)
[2023-04-17] MEDS: Omeprazole 20 MG CAPSULE.DR PO (10:32)
[2023-04-17] MEDS: Atorvastatin Calcium 40 MG TABLET PO (10:32)
[2023-04-17] MEDS: metFORMIN HCl 500 MG TABLET PO ×2 (10:32→21:28)
[2023-04-17] MEDS: Famotidine 20 MG TABLET PO (10:32)
[2023-04-17 10:42] VITALS: BP 146/67; PULSE 70; TEMP 36.4; O2SAT 99
--- NOTE | 2023-04-17 16:08 | HO.PSYCHPN ---
Subjective Subjective Date of Service: 04/17/23 Reason For Visit: hallucinations Interim History: no change in presentation. per staff, denies Sx. pleasant. watching TV. coloring. attending some groups. denies anx/dep/AVH. +RIS? talking softly to herself. up at 0200 wandering. Mental Status Exam Mental Status Exam Narrative: calm, cooperative, diminutive. disheveled. general PMR. fair eye contact, speech nml rate, nml loudness, decr prosody, decr amount. thoughts generally linear/relevant interchange; paucity of thought. affect constricted, hypo-intense, non-labile. no SI/SIBI/HI/AVH expressed. gross cognitive impairment. Diagnostics Vital Signs (24Hr): Vital Signs - 24 hr 04/16/23 20:28 04/17/23 10:42 Temperature 97.8 F 97.6 F Pulse Rate 71 70 Respiratory Rate 16 Blood Pressure 117/72 146/67 H Pulse Oximetry 99 99 Oxygen Delivery Method Room Air Room Air BMI result Body Mass Index 31.2 Labs 04/08/23 09:08 04/17/23 07:02 Labs: Laboratory Results - last 48 hr 04/06/23 04/15/23 04/16/23 09:11 21:48 08:41 Creatinine Estim Creat Clear Calc Estimated GFR POC Glucose 175 H 132 H Anti-HU Antibody Titer TNP Anti-Hu Ab ([place]) TNP 04/16/23 04/17/23 04/17/23 20:37 07:02 08:28 Creatinine 0.86 Estim Creat Clear Calc 70.4 Estimated GFR > 60 POC Glucose 233 H 211 H Anti-HU Antibody Titer Anti-Hu Ab ([place]ot) Imaging Radiology Impressions: ITS Impressions Brain MRI 04/03/23 15:30 IMPRESSION: No acute infarct, mass lesion, intracranial hemorrhage, or evidence of hydrocephalus. Mild nonspecific T2/FLAIR hyperintensity in the cerebral white matter and danny presumably on the basis of chronic microangiopathy. Medications Medications Current Medications Acetaminophen (Acetaminophen 325 Mg Tablet) 650 mg PO Q6H PRN PRN Reason: Headache/Pain Mild Scale (1-3) Last Admin: 04/02/23 00:21 Dose: 650 mg Al Hydroxide/Mg Hydroxide (Magnesium Hydrox/Alum Hydrox 30 Ml Oral.Susp) 30 ml PO Q6H PRN PRN Reason: Heartburn/Nausea Atorvastatin Calcium (Atorvastatin Calcium 40 Mg Tablet) 40 mg PO DAILY [facility] Last Admin: 04/17/23 10:32 Dose: 40 mg Bupropion HCl (Bupropion Hcl Xl 150 Mg Tab.Er.24h) 150 mg PO DAILY [facility] Last Admin: 04/17/23 10:31 Dose: 150 mg Empagliflozin (Empagliflozin 25 Mg Tablet) 25 mg PO DAILY [facility] Last Admin: 04/17/23 10:32 Dose: 25 mg Famotidine (Famotidine 20 Mg Tablet) 20 mg PO DAILY [facility] Last Admin: 04/17/23 10:32 Dose: 20 mg Magnesium Hydroxide (Milk Of Magnesia 30 Ml Oral.Susp) 30 ml PO DAILY PRN PRN Reason: Constipation Metformin HCl (Metformin Hcl 500 Mg Tablet) 500 mg PO BID [facility] Last Admin: 04/17/23 10:32 Dose: 500 mg Omeprazole (Omeprazole 20 Mg Capsule.Dr) 20 mg PO DAILY [facility] Last Admin: 04/17/23 10:32 Dose: 20 mg Trazodone HCl (Trazodone Hcl 50 Mg Tablet) 50 mg PO BEDTIME MRX1 PRN PRN Reason: Insomnia Last Admin: 04/15/23 21:51 Dose: 50 mg Allergies Allergies Allergy/AdvReac Type Severity Reaction Status Date / Time No Known Allergies Allergy Verified 03/23/23 18:13 Assessment & Plan Assessment & Plan (1) Encephalopathy: Status: Acute Code(s): G93.40 - Encephalopathy, unspecified (2) Hallucination, visual: Status: Acute Code(s): R44.1 - Visual hallucinations Plan Inflammatory markers only very mildly elevated: CRP 0.76 Multiple screening tests have already been ordered: CJD, Paraneoplastic, RICKY, anti double stranded DNA, heavy metal screening of arsenic, lead, mercury, cadmium, HIV, tick-borne disease panel including Lyme and Josiah mountain spotted fever, Eastern equine encephalitis, West Nile virus, rheumatoid factor Will recheck CBC and CMP Will check TSH, vitamin B12, folate, ESR, magnesium, phosphorus, syphilis 04/08/23 continue treatmetn plan 04/09/23 continue treatment plan 04/10/23 Case reviewed with neurologist. Haldol discontinued on unclear if worsening motor functioning no clear diagnosis to this point neurological versus primary psychiatric disorder presenting an unusual manner. Hospital has been waiting to do repeat lumbar puncture secondary to initial test for prion disease with an need repeat lumbar puncture if no neurological diagnosis consider ECT? Consider transfer to neurology unit this has been discussed with chief risk officer and attending psychiatrist Dr. Matthew and with neurologist Srinivasan 04/11: tick-borne Dz panel NEG, heavy metals NEG, inflammatory markers unremarkably elevated. appears notably improved in terms of lability/irritability as well as cognition since DC of anti-psychotic and lowering of ativan dosing. 04/12: continue current mgmt. stable presentation. 04/13: continue current mgmt. stable. contacted lab re CJD result status, awaiting response. 04/14: CJD NEG. will plan for LP early next week. no change in presentation. taper ativan. discussed case with pt's daughter. 04/15 continue tx 04/16 continue tx. 04/17: LP ordered with various CSF labs. no change in presentation. will add zoloft and zyprexa to regimen for presumed Dx of psychotic depression. Reason for continued inpatient stay Substantial Risk for: inability to function and rapid decompensation Time Spent With Patient Time: Total time managing care of this patient today __35__ minutes.
[2023-04-17 21:05] VITALS: RESP 16
[2023-04-17] MEDS: OLANZapine 5 MG TABLET PO (21:28)
[2023-04-17 21:43] LABS: Glucose, Whole Blood 202 mg/dL (60-115)
[2023-04-18] VITALS (9 sets, daily range): BP systolic 123–148; BP diastolic 60–74; PULSE 66–75; RESP 16–20; TEMP 36–36.9; O2SAT 97–99
[2023-04-18 09:02] LABS: Glucose, Whole Blood 147 mg/dL (60-115)
--- NOTE | 2023-04-18 09:29 | PC.NURSE ---
Report given to Thuan in short stay for lumbar puncture.
[2023-04-18 11:19] LABS: INTERNATIONAL NORM RATIO 0.9 (0.9-1.1); Prothrombin Time 10.2 SEC (10.0-13.1)
--- NOTE | 2023-04-18 12:14 | HO.RADPN ---
RADIOLOGY Narrative Narrative: Lp using 22g spinal needle at left L4/L5 . 6 mL clear CSF removed. No complication.
--- NOTE | 2023-04-18 13:11 | HO.PSYCHPN ---
Subjective Subjective Date of Service: 04/18/23 Reason For Visit: hallucinations Interim History: blunted affect. no change in presentation. getting LP today. per staff, poor memory. can't recall doing things on yunit or where her bathroom is. seeing water on the wall (turns out just to be light) as well as fog in the barrow (also a reflection). slept well. Mental Status Exam Mental Status Exam Narrative: calm, cooperative, diminutive. disheveled. general PMR. fair eye contact, speech nml rate, soft, decr prosody, decr amount. thoughts generally linear/relevant interchange; paucity of thought. affect constricted, hypo-intense, non-labile. no SI/SIBI/HI/AVH expressed. gross cognitive impairment. Diagnostics Vital Signs (24Hr): Vital Signs - 24 hr 04/17/23 21:05 04/18/23 06:00 Temperature 98.0 F Pulse Rate 66 Respiratory Rate 16 18 Blood Pressure 123/67 Pulse Oximetry 98 Oxygen Delivery Method Room Air BMI result Body Mass Index 31.2 Labs 04/08/23 09:08 04/17/23 07:02 Labs: Laboratory Results - last 48 hr 04/06/23 04/16/23 04/17/23 09:11 20:37 07:02 PT INR Creatinine 0.86 Estim Creat Clear Calc 70.4 Estimated GFR > 60 POC Glucose 233 H Anti-HU Antibody Titer TNP Anti-Hu Ab ([place]) TNP 04/17/23 04/17/23 04/18/23 08:28 21:37 08:57 PT INR Creatinine Estim Creat Clear Calc Estimated GFR POC Glucose 211 H 202 H 147 H Anti-HU Antibody Titer Anti-Hu Ab ([place]) 04/18/23 10:54 PT 10.2 INR 0.9 Creatinine Estim Creat Clear Calc Estimated GFR POC Glucose Anti-HU Antibody Titer Anti-Hu Ab ([place]) Imaging Radiology Impressions: ITS Impressions Brain MRI 04/03/23 15:30 IMPRESSION: No acute infarct, mass lesion, intracranial hemorrhage, or evidence of hydrocephalus. Mild nonspecific T2/FLAIR hyperintensity in the cerebral white matter and danny presumably on the basis of chronic microangiopathy. Lumbar Puncture Fluoroscopy 04/18/23 12:27 IMPRESSION: Fluoroscopy-guided lumbar puncture Medications Medications Current Medications Acetaminophen (Acetaminophen 325 Mg Tablet) 650 mg PO Q6H PRN PRN Reason: Headache/Pain Mild Scale (1-3) Last Admin: 04/02/23 00:21 Dose: 650 mg Al Hydroxide/Mg Hydroxide (Magnesium Hydrox/Alum Hydrox 30 Ml Oral.Susp) 30 ml PO Q6H PRN PRN Reason: Heartburn/Nausea Atorvastatin Calcium (Atorvastatin Calcium 40 Mg Tablet) 40 mg PO DAILY [facility] BEDS AT [facility] Last Admin: 04/18/23 08:46 Dose: Not Given Bupropion HCl (Bupropion Hcl Xl 150 Mg Tab.Er.24h) 150 mg PO DAILY [facility] 234 BEDS AT THE [facility] Last Admin: 04/18/23 08:46 Dose: Not Given Empagliflozin (Empagliflozin 25 Mg Tablet) 25 mg PO DAILY [facility]CLUDE 234 BEDS AT THE [facility] Last Admin: 04/18/23 08:46 Dose: Not Given Famotidine (Famotidine 20 Mg Tablet) 20 mg PO DAILY [facility]CLUDE 234 BEDS AT THE [facility] Last Admin: 04/18/23 08:47 Dose: Not Given Magnesium Hydroxide (Milk Of Magnesia 30 Ml Oral.Susp) 30 ml PO DAILY PRN PRN Reason: Constipation Metformin HCl (Metformin Hcl 500 Mg Tablet) 500 mg PO BID [facility] 234 BEDS AT THE [facility] Last Admin: 04/18/23 08:47 Dose: Not Given Olanzapine (Olanzapine 5 Mg Tablet) 5 mg PO BEDTIME COUNTS INCLUDE 234 BEDS AT THE [facility] Last Admin: 04/17/23 21:28 Dose: 5 mg Omeprazole (Omeprazole 20 Mg Capsule.Dr) 20 mg PO DAILY [facility] 234 BEDS AT THE [facility] Last Admin: 04/18/23 08:47 Dose: Not Given Sertraline HCl (Sertraline Hcl 50 Mg Tablet) 50 mg PO DAILY [facility] 234 BEDS AT [facility] Last Admin: 04/18/23 08:47 Dose: Not Given Trazodone HCl (Trazodone Hcl 50 Mg Tablet) 50 mg PO BEDTIME MRX1 PRN PRN Reason: Insomnia Last Admin: 04/15/23 21:51 Dose: 50 mg Allergies Allergies Allergy/AdvReac Type Severity Reaction Status Date / Time No Known Allergies Allergy Verified 03/23/23 18:13 Assessment & Plan Assessment & Plan (1) Encephalopathy: Status: Acute Code(s): G93.40 - Encephalopathy, unspecified (2) Hallucination, visual: Status: Acute Code(s): R44.1 - Visual hallucinations Plan Inflammatory markers only very mildly elevated: CRP 0.76 Multiple screening tests have already been ordered: CJD, Paraneoplastic, RICKY, anti double stranded DNA, heavy metal screening of arsenic, lead, mercury, cadmium, HIV, tick-borne disease panel including Lyme and Josiah mountain spotted fever, Eastern equine encephalitis, West Nile virus, rheumatoid factor Will recheck CBC and CMP Will check TSH, vitamin B12, folate, ESR, magnesium, phosphorus, syphilis 04/08/23 continue treatmetn plan 04/09/23 continue treatment plan 04/10/23 Case reviewed with neurologist. Haldol discontinued on unclear if worsening motor functioning no clear diagnosis to this point neurological versus primary psychiatric disorder presenting an unusual manner. Hospital has been waiting to do repeat lumbar puncture secondary to initial test for prion disease with an need repeat lumbar puncture if no neurological diagnosis consider ECT? Consider transfer to neurology unit this has been discussed with evp and chief operating officer and attending psychiatrist Dr. Matthew and with neurologist Srinivasan 04/11: tick-borne Dz panel NEG, heavy metals NEG, inflammatory markers unremarkably elevated. appears notably improved in terms of lability/irritability as well as cognition since DC of anti-psychotic and lowering of ativan dosing. 04/12: continue current mgmt. stable presentation. 04/13: continue current mgmt. stable. contacted lab re CJD result status, awaiting response. 04/14: CJD NEG. will plan for LP early next week. no change in presentation. taper ativan. discussed case with pt's daughter. 04/15 continue tx 04/16 continue tx. 04/17: LP ordered with various CSF labs. no change in presentation. will add zoloft and zyprexa to regimen for presumed Dx of psychotic depression. 04/18: LP today. no change in presentation. continue current mgmt. await LP results. if NEG, proceed as for psychotic depression. T/C ECT. Reason for continued inpatient stay Substantial Risk for: inability to function and rapid decompensation Time Spent With Patient Time: Total time managing care of this patient today _25___ minutes.
[2023-04-18 13:46] LABS: Glucose CSF 94 mg/dL
[2023-04-18 14:56] LABS: Appearance CSF CLEAR; CSF Tube # 1; Lymphocytes CSF 100 %
[2023-04-18 14:57] LABS: CSF Volume 0.5 ML; Color CSF COLORLESS; Red Blood Cell CSF 1 MM*3; White Blood Cell CSF 1 MM*3
[2023-04-18] MEDS: Acetaminophen 325 MG TABLET 650 MG PO (19:21)
[2023-04-18 20:12] LABS: Glucose, Whole Blood 260 mg/dL (60-115)
[2023-04-18] MEDS: OLANZapine 5 MG TABLET PO (22:10)
[2023-04-18] MEDS: metFORMIN HCl 500 MG TABLET PO (22:10)
[2023-04-19] VITALS: RESP 16
[2023-04-19 06:00] VITALS: BP 128/74; PULSE 64; RESP 18; TEMP 36.6; O2SAT 97
[2023-04-19 06:55] LABS: CSF Appearance Clear, Colorless; CSF Tube # 1
[2023-04-19 08:48] LABS: Glucose, Whole Blood 138 mg/dL (60-115)
[2023-04-19] MEDS: Famotidine 20 MG TABLET PO (09:09)
[2023-04-19] MEDS: buPROPion HCl XL 150 MG TAB.ER.24H PO (09:09)
[2023-04-19] MEDS: Empagliflozin 25 MG TABLET PO (09:09)
[2023-04-19] MEDS: Atorvastatin Calcium 40 MG TABLET PO (09:09)
[2023-04-19] MEDS: Omeprazole 20 MG CAPSULE.DR PO (09:09)
[2023-04-19] MEDS: Sertraline HCL 50 MG TABLET PO (09:09)
[2023-04-19] MEDS: metFORMIN HCl 500 MG TABLET PO ×2 (09:09→21:16)
[2023-04-19 12:00] VITALS: RESP 18
--- NOTE | 2023-04-19 12:27 | HO.PSYCHPN ---
Subjective Subjective Date of Service: 04/19/23 Reason For Visit: hallucinations Interim History: no change in presentation. states she is feeling a little better. on being asked how, she replies, well, the music.... has no questions or concerns. per staff, upset, confused yesterday morning. pleasant on eves. taking meds. VS good. slept well. Mental Status Exam Mental Status Exam Narrative: calm, cooperative, diminutive. disheveled. general PMR. fair eye contact, speech nml rate, soft, decr prosody, decr amount. thoughts generally linear/relevant interchange; paucity of thought. affect constricted, hypo-intense, non-labile. no SI/SIBI/HI/AVH expressed. gross cognitive impairment. Diagnostics Vital Signs (24Hr): Vital Signs - 24 hr 04/18/23 14:15 04/18/23 14:30 04/18/23 15:00 Temperature 96.8 F 98.4 F 97.0 F Pulse Rate 70 73 72 Respiratory Rate 18 20 20 Blood Pressure 148/66 H 147/66 H 134/61 Pulse Oximetry 97 98 98 Oxygen Delivery Method Room Air Room Air Room Air 04/18/23 16:00 04/18/23 16:30 04/18/23 17:00 Temperature 97.2 F 96.8 F 98.2 F Pulse Rate 72 70 70 Respiratory Rate 18 18 18 Blood Pressure 141/65 H 134/60 142/74 H Pulse Oximetry 98 98 99 Oxygen Delivery Method Room Air Room Air Room Air 04/18/23 18:00 04/18/23 20:00 04/19/23 00:00 Temperature 96.9 F 98.4 F Pulse Rate 69 75 Respiratory Rate 20 16 16 Blood Pressure 140/66 H 137/72 Pulse Oximetry 97 98 Oxygen Delivery Method Room Air Room Air 04/19/23 06:00 04/19/23 12:00 Temperature 97.8 F Pulse Rate 64 Respiratory Rate 18 18 Blood Pressure 128/74 Pulse Oximetry 97 Oxygen Delivery Method Room Air BMI result Body Mass Index 31.2 Labs 04/08/23 09:08 04/17/23 07:02 Labs: Laboratory Results - last 48 hr 04/17/23 04/18/23 04/18/23 21:37 08:57 10:54 PT 10.2 INR 0.9 POC Glucose 202 H 147 H CSF Tube Number CSF Volume CSF Appearance CSF Color CSF WBC CSF RBC CSF Lymphocytes CSF Appearance (b) CSF Glucose CSF Total Protein 04/18/23 04/18/23 04/18/23 11:00 11:00 20:01 PT INR POC Glucose 260 H CSF Tube Number 1 1 CSF Volume 0.5 CSF Appearance CLEAR CSF Color COLORLESS CSF WBC 1 CSF RBC 1 CSF Lymphocytes 100 CSF Appearance (b) Clear, Colorless CSF Glucose 94 CSF Total Protein 88.0 H 04/19/23 08:34 PT INR POC Glucose 138 H CSF Tube Number CSF Volume CSF Appearance CSF Color CSF WBC CSF RBC CSF Lymphocytes CSF Appearance (b) CSF Glucose CSF Total Protein Imaging Radiology Impressions: ITS Impressions Brain MRI 04/03/23 15:30 IMPRESSION: No acute infarct, mass lesion, intracranial hemorrhage, or evidence of hydrocephalus. Mild nonspecific T2/FLAIR hyperintensity in the cerebral white matter and danny presumably on the basis of chronic microangiopathy. Lumbar Puncture Fluoroscopy 04/18/23 12:27 IMPRESSION: Fluoroscopy-guided lumbar puncture Medications Medications Current Medications Acetaminophen (Acetaminophen 325 Mg Tablet) 650 mg PO Q6H PRN PRN Reason: Headache/Pain Mild Scale (1-3) Last Admin: 04/18/23 19:21 Dose: 650 mg Al Hydroxide/Mg Hydroxide (Magnesium Hydrox/Alum Hydrox 30 Ml Oral.Susp) 30 ml PO Q6H PRN PRN Reason: Heartburn/Nausea Atorvastatin Calcium (Atorvastatin Calcium 40 Mg Tablet) 40 mg PO DAILY [facility] Last Admin: 04/19/23 09:09 Dose: 40 mg Bupropion HCl (Bupropion Hcl Xl 150 Mg Tab.Er.24h) 150 mg PO DAILY [facility] Last Admin: 04/19/23 09:09 Dose: 150 mg Empagliflozin (Empagliflozin 25 Mg Tablet) 25 mg PO DAILY [facility] Last Admin: 04/19/23 09:09 Dose: 25 mg Famotidine (Famotidine 20 Mg Tablet) 20 mg PO DAILY [facility] Last Admin: 04/19/23 09:09 Dose: 20 mg Magnesium Hydroxide (Milk Of Magnesia 30 Ml Oral.Susp) 30 ml PO DAILY PRN PRN Reason: Constipation Metformin HCl (Metformin Hcl 500 Mg Tablet) 500 mg PO BID [facility] Last Admin: 04/19/23 09:09 Dose: 500 mg Olanzapine (Olanzapine 5 Mg Tablet) 5 mg PO BEDTIME [facility] Last Admin: 04/18/23 22:10 Dose: 5 mg Omeprazole (Omeprazole 20 Mg Capsule.) 20 mg PO DAILY [facility] Last Admin: 04/19/23 09:09 Dose: 20 mg Sertraline HCl (Sertraline Hcl 50 Mg Tablet) 50 mg PO DAILY [facility] Last Admin: 04/19/23 09:09 Dose: 50 mg Trazodone HCl (Trazodone Hcl 50 Mg Tablet) 50 mg PO BEDTIME MRX1 PRN PRN Reason: Insomnia Last Admin: 04/15/23 21:51 Dose: 50 mg Allergies Allergies Allergy/AdvReac Type Severity Reaction Status Date / Time No Known Allergies Allergy Verified 03/23/23 18:13 Assessment & Plan Assessment & Plan (1) Encephalopathy: Status: Acute Code(s): G93.40 - Encephalopathy, unspecified (2) Hallucination, visual: Status: Acute Code(s): R44.1 - Visual hallucinations Plan Inflammatory markers only very mildly elevated: CRP 0.76 Multiple screening tests have already been ordered: CJD, Paraneoplastic, RICKY, anti double stranded DNA, heavy metal screening of arsenic, lead, mercury, cadmium, HIV, tick-borne disease panel including Lyme and Josiah mountain spotted fever, Eastern equine encephalitis, West Nile virus, rheumatoid factor Will recheck CBC and CMP Will check TSH, vitamin B12, folate, ESR, magnesium, phosphorus, syphilis 04/08/23 continue treatmetn plan 04/09/23 continue treatment plan 04/10/23 Case reviewed with neurologist. Haldol discontinued on unclear if worsening motor functioning no clear diagnosis to this point neurological versus primary psychiatric disorder presenting an unusual manner. Hospital has been waiting to do repeat lumbar puncture secondary to initial test for prion disease with an need repeat lumbar puncture if no neurological diagnosis consider ECT? Consider transfer to neurology unit this has been discussed with laboratory chief and attending psychiatrist Dr. Matthew and with neurologist Srinivasan 04/11: tick-borne Dz panel NEG, heavy metals NEG, inflammatory markers unremarkably elevated. appears notably improved in terms of lability/irritability as well as cognition since DC of anti-psychotic and lowering of ativan dosing. 04/12: continue current mgmt. stable presentation. 04/13: continue current mgmt. stable. contacted lab re CJD result status, awaiting response. 04/14: CJD NEG. will plan for LP early next week. no change in presentation. taper ativan. discussed case with pt's daughter. 04/15 continue tx 04/16 continue tx. 04/17: LP ordered with various CSF labs. no change in presentation. will add zoloft and zyprexa to regimen for presumed Dx of psychotic depression. 04/18: LP today. no change in presentation. continue current mgmt. await LP results. if NEG, proceed as for psychotic depression. T/C ECT. 04/19: CSF with protein 88 (nml range 23-38). most other results pending. Dr. Mattson notified of result, case discussed with Dr. Trotter. no change in mgmt pending return of more results, which should guide next steps. Reason for continued inpatient stay Substantial Risk for: inability to function Time Spent With Patient Time: Total time managing care of this patient today __35__ minutes.
[2023-04-19] MEDS: Acetaminophen 325 MG TABLET 650 MG PO ×2 (14:32→21:17)
[2023-04-19 16:00] VITALS: BP 170/82; PULSE 88; RESP 16; TEMP 36.6; O2SAT 98
[2023-04-19 21:05] VITALS: BP 145/75; PULSE 68; RESP 16; TEMP 36.3; O2SAT 99
[2023-04-19 21:16] LABS: Glucose, Whole Blood 212 mg/dL (60-115)
[2023-04-19] MEDS: OLANZapine 5 MG TABLET PO (21:16)
[2023-04-20] VITALS (7 sets, daily range): BP systolic 126–139; BP diastolic 66–77; PULSE 64–89; RESP 16–18; TEMP 36.6; O2SAT 95–98; BMI 31.2
[2023-04-20 08:28] LABS: Glucose, Whole Blood 133 mg/dL (60-115)
[2023-04-20] MEDS: Famotidine 20 MG TABLET PO (09:00)
[2023-04-20] MEDS: Atorvastatin Calcium 40 MG TABLET PO (09:01)
[2023-04-20] MEDS: metFORMIN HCl 500 MG TABLET PO ×2 (09:01→22:06)
[2023-04-20] MEDS: Sertraline HCL 50 MG TABLET PO (09:01)
[2023-04-20] MEDS: Acetaminophen 325 MG TABLET 650 MG PO (09:02)
[2023-04-20] MEDS: Omeprazole 20 MG CAPSULE.DR PO (09:02)
[2023-04-20] MEDS: buPROPion HCl XL 150 MG TAB.ER.24H PO (09:03)
[2023-04-20] MEDS: Empagliflozin 25 MG TABLET PO (09:03)
[2023-04-20 10:49] LABS: Cryptococcus neoformans/gattii Not Detected (Not Detect.); Enterovirus Not Detected (Not Detect.); Escherichia coli K1 Not Detected (Not Detect.); Haemophilus influenzae Not Detected (Not Detect.); Herpes simplex virus 1 Not Detected (Not Detect.); Herpes simplex virus 2 Not Detected (Not Detect.); Human herpesvirus 6 Not Detected (Not Detect.); Human parechovirus Not Detected (Not Detect.); Listeria monocytogenes Not Detected (Not Detect.); Neisseria meningitidis Not Detected (Not Detect.); Streptococcus agalactiae Not Detected (Not Detect.); Streptococcus pneumoniae Not Detected (Not Detect.); Varicella zoster virus Not Detected (Not Detect.)
--- NOTE | 2023-04-20 13:19 | P.PNPSI_ITS ---
Subjective Subjective Date of Service: 04/20/23 Reason For Visit: hallucinations Interim History: calm, cooperative. says things are going well here, no complaints or requests. MD explains CSF protein elevation ramifications and possible next steps. per staff, safe, confused. says eating and sleeping well. pacing. denies anx/dep. c/o poor concentration. med and meals compliant. slept O/N. Mental Status Exam Mental Status Exam Narrative: calm, cooperative, diminutive. disheveled. general PMR. fair eye contact, speech nml rate, soft, decr prosody, decr amount. thoughts generally linear/relevant interchange; paucity of thought. affect constricted, hypo- intense, non-labile. no SI/SIBI/HI/AVH expressed. gross cognitive impairment. Diagnostics Vital Signs (24Hr): Vital Signs - 24 hr 04/19/23 16:00 04/19/23 21:05 04/20/23 00:45 Temperature 97.8 F 97.3 F Pulse Rate 88 68 Respiratory Rate 16 16 16 Blood Pressure 170/82 H 145/75 H Pulse Oximetry 98 99 Oxygen Delivery Method Room Air Room Air 04/20/23 04:48 Temperature Pulse Rate Respiratory Rate 16 Blood Pressure Pulse Oximetry Oxygen Delivery Method BMI result Body Mass Index 31.2 Labs 04/08/23 09:08 04/17/23 07:02 Labs: Laboratory Results - last 48 hr 04/18/23 04/18/23 04/18/23 11:00 11:00 11:00 POC Glucose CSF Tube Number 1 1 CSF Volume 0.5 CSF Appearance CLEAR CSF Color COLORLESS CSF WBC 1 CSF RBC 1 CSF Lymphocytes 100 CSF Appearance (b) Clear, Colorless CSF Glucose 94 CSF Total Protein 88.0 H CSF C.neoform/gat PCR Not Detected CSF CMV DNA (PCR) Not Detected CSF Enterovirus (PCR) Not Detected CSF E. coli K1 (PCR) Not Detected CSF H. influenzae (PCR) Not Detected CSF HSV I (PCR) Not Detected CSF HSV II (PCR) Not Detected CSF HHV 6 (PCR) Not Detected CSF L.monocytogenes PCR Not Detected CSF N. meningitidis PCR Not Detected CSF Parechovirus (PCR) Not Detected CSF S. agalactiae (PCR) Not Detected CSF S. pneumoniae (PCR) Not Detected CSF VZV (PCR) Not Detected 04/18/23 04/19/23 04/19/23 20:01 08:34 21:12 POC Glucose 260 H 138 H 212 H CSF Tube Number CSF Volume CSF Appearance CSF Color CSF WBC CSF RBC CSF Lymphocytes CSF Appearance (b) CSF Glucose CSF Total Protein CSF C.neoform/gat PCR CSF CMV DNA (PCR) CSF Enterovirus (PCR) CSF E. coli K1 (PCR) CSF H. influenzae (PCR) CSF HSV I (PCR) CSF HSV II (PCR) CSF HHV 6 (PCR) CSF L.monocytogenes PCR CSF N. meningitidis PCR CSF Parechovirus (PCR) CSF S. agalactiae (PCR) CSF S. pneumoniae (PCR) CSF VZV (PCR) 04/20/23 08:23 POC Glucose 133 H CSF Tube Number CSF Volume CSF Appearance CSF Color CSF WBC CSF RBC CSF Lymphocytes CSF Appearance (b) CSF Glucose CSF Total Protein CSF C.neoform/gat PCR CSF CMV DNA (PCR) CSF Enterovirus (PCR) CSF E. coli K1 (PCR) CSF H. influenzae (PCR) CSF HSV I (PCR) CSF HSV II (PCR) CSF HHV 6 (PCR) CSF L.monocytogenes PCR CSF N. meningitidis PCR CSF Parechovirus (PCR) CSF S. agalactiae (PCR) CSF S. pneumoniae (PCR) CSF VZV (PCR) Imaging Radiology Impressions: ITS Impressions Brain MRI 04/03/23 15:30 IMPRESSION: No acute infarct, mass lesion, intracranial hemorrhage, or evidence of hydrocephalus. Mild nonspecific T2/FLAIR hyperintensity in the cerebral white matter and danny presumably on the basis of chronic microangiopathy. Lumbar Puncture Fluoroscopy 04/18/23 12:27 IMPRESSION: Fluoroscopy-guided lumbar puncture Medications Medications Current Medications Acetaminophen (Acetaminophen 325 Mg Tablet) 650 mg PO Q6H PRN PRN Reason: Headache/Pain Mild Scale (1-3) Last Admin: 04/20/23 09:02 Dose: 650 mg Al Hydroxide/Mg Hydroxide (Magnesium Hydrox/Alum Hydrox 30 Ml Oral.Susp) 30 ml PO Q6H PRN PRN Reason: Heartburn/Nausea Atorvastatin Calcium (Atorvastatin Calcium 40 Mg Tablet) 40 mg PO DAILY [facility] Last Admin: 04/20/23 09:01 Dose: 40 mg Bupropion HCl (Bupropion Hcl Xl 150 Mg Tab.Er.24h) 150 mg PO DAILY [facility] Last Admin: 04/20/23 09:03 Dose: 150 mg Empagliflozin (Empagliflozin 25 Mg Tablet) 25 mg PO DAILY [facility] Last Admin: 04/20/23 09:03 Dose: 25 mg Famotidine (Famotidine 20 Mg Tablet) 20 mg PO DAILY [facility] Last Admin: 04/20/23 09:00 Dose: 20 mg Magnesium Hydroxide (Milk Of Magnesia 30 Ml Oral.Susp) 30 ml PO DAILY PRN PRN Reason: Constipation Metformin HCl (Metformin Hcl 500 Mg Tablet) 500 mg PO BID [facility] Last Admin: 04/20/23 09:01 Dose: 500 mg Olanzapine (Olanzapine 5 Mg Tablet) 5 mg PO BEDTIME [facility] Last Admin: 04/19/23 21:16 Dose: 5 mg Omeprazole (Omeprazole 20 Mg Capsule.Dr) 20 mg PO DAILY [facility] Last Admin: 04/20/23 09:02 Dose: 20 mg Sertraline HCl (Sertraline Hcl 50 Mg Tablet) 50 mg PO DAILY [facility] Last Admin: 04/20/23 09:01 Dose: 50 mg Trazodone HCl (Trazodone Hcl 50 Mg Tablet) 50 mg PO BEDTIME MRX1 PRN PRN Reason: Insomnia Last Admin: 04/15/23 21:51 Dose: 50 mg Allergies Allergies Allergy/AdvReac Type Severity Reaction Status Date / Time No Known Allergies Allergy Verified 03/23/23 18:13 Assessment & Plan Assessment & Plan (1) Encephalopathy: Status: Acute Code(s): G93.40 - Encephalopathy, unspecified (2) Hallucination, visual: Status: Acute Code(s): R44.1 - Visual hallucinations Plan Inflammatory markers only very mildly elevated: CRP 0.76 Multiple screening tests have already been ordered: CJD, Paraneoplastic, RICKY, anti double stranded DNA, heavy metal screening of arsenic, lead, mercury, cadmium, HIV, tick-borne disease panel including Lyme and Josiah mountain spotted fever, Eastern equine encephalitis, West Nile virus, rheumatoid factor Will recheck CBC and CMP Will check TSH, vitamin B12, folate, ESR, magnesium, phosphorus, syphilis 04/08/23 continue treatmetn plan 04/09/23 continue treatment plan 04/10/23 Case reviewed with neurologist. Haldol discontinued on unclear if worsening mo tor functioning no clear diagnosis to this point neurological versus primary psychiatric disorder presenting an unusual manner. Hospital has been waiting to do repeat lumbar puncture secondary to initial test for prion disease with an need repeat lumbar puncture if no neurological diagnosis consider ECT? Consider transfer to neurology unit this has been discussed with hospital chief financial officer and attending psychiatrist Dr. Matthew and with neurologist Srinivasan 04/11: tick-borne Dz panel NEG, heavy metals NEG, inflammatory markers unremarkably elevated. appears notably improved in terms of lability/ irritability as well as cognition since DC of anti-psychotic and lowering of ativan dosing. 04/12: continue current mgmt. stable presentation. 04/13: continue current mgmt. stable. contacted lab re CJD result status, awaiting response. 04/14: CJD NEG. will plan for LP early next week. no change in presentation. taper ativan. discussed case with pt's daughter. 04/15 continue tx 04/16 continue tx. 04/17: LP ordered with various CSF labs. no change in presentation. will add zoloft and zyprexa to regimen for presumed Dx of psychotic depression. 04/18: LP today. no change in presentation. continue current mgmt. await LP results. if NEG, proceed as for psychotic depression. T/C ECT. 04/19: CSF with protein 88 (nml range 23-38). most other results pending. Dr. Mattson notified of result, case discussed with Dr. Trotter. no change in mgmt pending return of more results, which should guide next steps. 04/20: CSF infectious panel NEG. many results remain pending. case d/w lida. continue current mgmt pending more info re potential autoimmune or paraneoplastic etiology. Reason for continued inpatient stay Substantial Risk for: inability to function and rapid decompensation Time Spent With Patient Time: Total time managing care of this patient today _35___ minutes.
[2023-04-20] MEDS: OLANZapine 5 MG TABLET PO (22:06)
[2023-04-21 00:20] VITALS: RESP 16
[2023-04-21 04:32] VITALS: RESP 16
[2023-04-21 08:10] LABS: Glucose, Whole Blood 121 mg/dL (60-115)
[2023-04-21] MEDS: buPROPion HCl XL 150 MG TAB.ER.24H PO (08:43)
[2023-04-21] MEDS: Empagliflozin 25 MG TABLET PO (08:43)
[2023-04-21] MEDS: Omeprazole 20 MG CAPSULE.DR PO (08:43)
[2023-04-21] MEDS: Sertraline HCL 50 MG TABLET PO (08:44)
[2023-04-21] MEDS: Atorvastatin Calcium 40 MG TABLET PO (08:44)
[2023-04-21] MEDS: metFORMIN HCl 500 MG TABLET PO ×2 (08:44→20:51)
[2023-04-21] MEDS: Famotidine 20 MG TABLET PO (08:44)
[2023-04-21 08:57] VITALS: BP 140/63; PULSE 62; RESP 18; TEMP 36.8; O2SAT 96
[2023-04-21 10:00] VITALS: BP 132/66; PULSE 64; RESP 18; TEMP 36.7; O2SAT 96
--- NOTE | 2023-04-21 11:12 | PM.NEUROCN ---
History of Present Illness Data of Consult Service Date: 04/21/23 Primary Care Provider: Kenroy Antonio MD HPI Reason for consult: Encephalopathy 57 years old woman I have been seeing for encephalopathy. She had a lumbar puncture to rule out CJD that was negative. Another lumbar puncture was done to check her spinal fluid for routine abnormalities and also for any infection. Meningoencephalitis panel was negative and some other labs were pending. CSF protein was 88. Review of Systems Review of Systems: No evidence of seizure or falls. [facility] Past Medical History Medical History Diabetes GERD (gastroesophageal reflux disease) Family History Family history: reviewed and not pertinent Social History Social History Household Members: Family Housing: Other Housing Other:: PATIENT CURRENTLY SLEEPING ON BROTHERS COUCH Do you presently have visiting nurse or other home services: No Unable to assess alcohol history related to: Unknown Patient Tobacco Use Status: Tobacco use Unknown Advance Directives: No Advance Directives Information Provided: Yes Advance Directives Date on File: 03/30/23 service: No Sexual orientation: Straight/Heterosexual Meds Allergies Allergy/AdvReac Type Severity Reaction Status Date / Time No Known Allergies Allergy Verified 03/23/23 18:13 Active Medications: Current Medications Acetaminophen (Acetaminophen 325 Mg Tablet) 650 mg PO Q6H PRN PRN Reason: Headache/Pain Mild Scale (1-3) Last Admin: 04/20/23 09:02 Dose: 650 mg Al Hydroxide/Mg Hydroxide (Magnesium Hydrox/Alum Hydrox 30 Ml Oral.Susp) 30 ml PO Q6H PRN PRN Reason: Heartburn/Nausea Atorvastatin Calcium (Atorvastatin Calcium 40 Mg Tablet) 40 mg PO DAILY REPLACED BY [facility] Last Admin: 04/21/23 08:44 Dose: 40 mg Bupropion HCl (Bupropion Hcl Xl 150 Mg Tab.Er.24h) 150 mg PO DAILY [facility] Last Admin: 04/21/23 08:43 Dose: 150 mg Empagliflozin (Empagliflozin 25 Mg Tablet) 25 mg PO DAILY [facility]AC[facility] Last Admin: 04/21/23 08:43 Dose: 25 mg Famotidine (Famotidine 20 Mg Tablet) 20 mg PO DAILY [facility]PLAC[facility] BY [facility] Last Admin: 04/21/23 08:44 Dose: 20 mg Magnesium Hydroxide (Milk Of Magnesia 30 Ml Oral.Susp) 30 ml PO DAILY PRN PRN Reason: Constipation Metformin HCl (Metformin Hcl 500 Mg Tablet) 500 mg PO BID [facility]PLACED BY [facility] Last Admin: 04/21/23 08:44 Dose: 500 mg Olanzapine (Olanzapine 5 Mg Tablet) 5 mg PO BEDTIME [facility] Last Admin: 04/20/23 22:06 Dose: 5 mg Omeprazole (Omeprazole 20 Mg Capsule.Dr) 20 mg PO DAILY REPLACED BY [facility] Last Admin: 04/21/23 08:43 Dose: 20 mg Sertraline HCl (Sertraline Hcl 50 Mg Tablet) 50 mg PO DAILY REPLACED BY [facility] Last Admin: 04/21/23 08:44 Dose: 50 mg Trazodone HCl (Trazodone Hcl 50 Mg Tablet) 50 mg PO BEDTIME MRX1 PRN PRN Reason: Insomnia Last Admin: 04/15/23 21:51 Dose: 50 mg Home Medications Medication Instructions Recorded Confirmed Last Taken Type atorvastatin 40 mg tablet 40 mg PO DAILY 03/23/23 03/23/23 Unknown History empagliflozin 25 mg tablet 25 mg PO DAILY 03/23/23 03/23/23 Unknown History (Jardiance) famotidine 20 mg tablet 20 mg PO DAILY 03/23/23 03/23/23 Unknown History metformin 500 mg tablet 500 mg PO BID 03/23/23 03/23/23 Unknown History omeprazole 20 mg capsule,delayed 20 mg PO DAILY 03/23/23 03/23/23 Unknown History release venlafaxine 75 mg tablet 75 mg PO DAILY 03/23/23 03/23/23 Unknown History ferrous sulfate 325 mg (65 mg 325 mg PO DAILY 03/24/23 03/24/23 Unknown History iron) tablet Physical Exam Vital Signs: Vital Signs: Last Vital Signs Temp 98.2 F 04/21/23 08:57 Pulse 62 04/21/23 08:57 Resp 18 04/21/23 08:57 BP 140/63 H 04/21/23 08:57 Pulse Ox 96 04/21/23 08:57 O2 Del Method Room Air 04/21/23 08:57 BMI result Body Mass Index 31.2 Neuro: Other: She is alert and awake though with flat affect. When I saw her she was coming out of the bathroom and walking in the room. There was moderate amount of bradykinesia of face and arm swing. No tremor was noted. No cogwheeling was seen. Visual mueller were intact. Gaze was intact. Face was symmetrical. Speech was normal. She was alert and awake recognize me and answered questions. She did not know correct year and did not know where exactly she was. She thought she was in a home. She could not tell me what she ate for dinner last night. Deep tendon reflexes were 1+ with cross adductor reflex noted in both knees with flexor plantars. Results Labs 04/08/23 09:08 04/17/23 07:02 Microbiology Microbiology Results: Microbiology 04/18/23 11:00 Cerebrospinal Fluid Gram Stain - Final 04/18/23 11:00 Cerebrospinal Fluid CSF Examination - Final 04/18/23 11:00 Cerebrospinal Fluid Fluid Description - Final 04/18/23 11:00 Cerebrospinal Fluid CSF Culture - Final No growth after 3 days. Assessment and Plan (1) Encephalopathy: Status: Acute 57 years old woman with relatively quickly progressive neuropsychiatric condition manifesting with depression and cognitive dysfunction. There was also generalized bradykinesia but otherwise no tremor or cogwheeling. No definite upper motor neuron signs were noted other than cross adductor reflex. Multiple blood test have been negative. CSF CJD test was negative. MRI of scans have not reveal any significant pathology. CSF protein was 88, which was somewhat high for her age. It suggested that her primary problem was probably not just psychiatric. Psychiatric issues or probably part of a neuropsychiatric syndrome. Differential diagnosis of this would include an inflammatory but also degenerative condition. In terms of inflammatory conditions, meningoencephalitis panel has been negative and that has ruled out most of those conditions. Autoimmune or paraneoplastic entities are still possibilities. Finally, vasculitis, specially primary [employer] vasculitis might be a consideration too. For more refined diagnosis, CSF paraneoplastic and autoimmune panels should be done but that may require further CSF removal. If all that becomes negative, brain biopsy might be a consideration. Some of this cannot be done in this institution. I recommend that case should be discuss with the tertiary care institution [facility] to see if there was any interest or place available for her to be transferred. In the meantime or if that was not a possibility, I recommend challenging her with prednisone 20 mg a day for 2-3 weeks to see if that would make any difference. Time Spent With Patient Time: Total time managing care of this patient today ____ minutes. Procedures Date of Service Date of Service: 04/21/23
--- NOTE | 2023-04-21 12:24 | P.PNPSI_ITS ---
Subjective Subjective Date of Service: 04/21/23 Reason For Visit: hallucinations Interim History: pt presentation remains unchanged. per staff, active and appropriate. stepping over seam lines on the floor as if walking on stairs. periods of irritability. refused to meet with her brother when he arrived for a visit. trying to walk off the unit last night to attend a gynecology appointment (which did not exist). Mental Status Exam Mental Status Exam Narrative: calm, cooperative, diminutive. disheveled. general PMR. fair eye contact, speech nml rate, soft, decr prosody, decr amount. thoughts generally linear/relevant interchange; paucity of thought. affect constricted, hypo- intense, non-labile. no SI/SIBI/HI/AVH expressed. gross cognitive impairment. Diagnostics Vital Signs (24Hr): Vital Signs - 24 hr 04/20/23 18:37 04/20/23 16:00 04/20/23 22:24 Temperature 97.9 F 97.9 F 97.8 F Pulse Rate 89 89 72 Respiratory Rate 16 16 18 Blood Pressure 126/77 126/77 134/68 Pulse Oximetry 98 98 95 Oxygen Delivery Method Room Air Room Air Room Air 04/21/23 00:20 04/21/23 04:32 04/21/23 08:57 Temperature 98.2 F Pulse Rate 62 Respiratory Rate 16 16 18 Blood Pressure 140/63 H Pulse Oximetry 96 Oxygen Delivery Method Room Air BMI result Body Mass Index 31.2 Labs 04/08/23 09:08 04/17/23 07:02 Labs: Laboratory Results - last 48 hr 04/18/23 04/19/23 04/20/23 11:00 21:12 08:23 POC Glucose 212 H 133 H CSF C.neoform/gat PCR Not Detected CSF CMV DNA (PCR) Not Detected CSF Enterovirus (PCR) Not Detected CSF E. coli K1 (PCR) Not Detected CSF H. influenzae (PCR) Not Detected CSF HSV I (PCR) Not Detected CSF HSV II (PCR) Not Detected CSF HHV 6 (PCR) Not Detected CSF L.monocytogenes PCR Not Detected CSF N. meningitidis PCR Not Detected CSF Parechovirus (PCR) Not Detected CSF S. agalactiae (PCR) Not Detected CSF S. pneumoniae (PCR) Not Detected CSF VZV (PCR) Not Detected 04/21/23 08:05 POC Glucose 121 H CSF C.neoform/gat PCR CSF CMV DNA (PCR) CSF Enterovirus (PCR) CSF E. coli K1 (PCR) CSF H. influenzae (PCR) CSF HSV I (PCR) CSF HSV II (PCR) CSF HHV 6 (PCR) CSF L.monocytogenes PCR CSF N. meningitidis PCR CSF Parechovirus (PCR) CSF S. agalactiae (PCR) CSF S. pneumoniae (PCR) CSF VZV (PCR) Imaging Radiology Impressions: ITS Impressions Brain MRI 04/03/23 15:30 IMPRESSION: No acute infarct, mass lesion, intracranial hemorrhage, or evidence of hydrocephalus. Mild nonspecific T2/FLAIR hyperintensity in the cerebral white matter and danny presumably on the basis of chronic microangiopathy. Lumbar Puncture Fluoroscopy 04/18/23 12:27 IMPRESSION: Fluoroscopy-guided lumbar puncture Medications Medications Current Medications Acetaminophen (Acetaminophen 325 Mg Tablet) 650 mg PO Q6H PRN PRN Reason: Headache/Pain Mild Scale (1-3) Last Admin: 04/20/23 09:02 Dose: 650 mg Al Hydroxide/Mg Hydroxide (Magnesium Hydrox/Alum Hydrox 30 Ml Oral.Susp) 30 ml PO Q6H PRN PRN Reason: Heartburn/Nausea Atorvastatin Calcium (Atorvastatin Calcium 40 Mg Tablet) 40 mg PO DAILY COUNTS INCLUDE 234 BEDS AT THE [facility] Last Admin: 04/21/23 08:44 Dose: 40 mg Bupropion HCl (Bupropion Hcl Xl 150 Mg Tab.Er.24h) 150 mg PO DAILY COUNTS INCLUDE 234 BEDS AT THE [facility] Last Admin: 04/21/23 08:43 Dose: 150 mg Empagliflozin (Empagliflozin 25 Mg Tablet) 25 mg PO DAILY COUNTS INCLUDE 234 BEDS AT THE [facility] Last Admin: 04/21/23 08:43 Dose: 25 mg Famotidine (Famotidine 20 Mg Tablet) 20 mg PO DAILY COUNTS INCLUDE 234 BEDS AT THE [facility] Last Admin: 04/21/23 08:44 Dose: 20 mg Magnesium Hydroxide (Milk Of Magnesia 30 Ml Oral.Susp) 30 ml PO DAILY PRN PRN Reason: Constipation Metformin HCl (Metformin Hcl 500 Mg Tablet) 500 mg PO BID COUNTS INCLUDE 234 BEDS AT THE [facility] Last Admin: 04/21/23 08:44 Dose: 500 mg Olanzapine (Olanzapine 5 Mg Tablet) 5 mg PO BEDTIME COUNTS INCLUDE 234 BEDS AT THE [facility] Last Admin: 04/20/23 22:06 Dose: 5 mg Omeprazole (Omeprazole 20 Mg Capsule.Dr) 20 mg PO DAILY COUNTS INCLUDE 234 BEDS AT THE [facility] Last Admin: 04/21/23 08:43 Dose: 20 mg Prednisone (Prednisone 20 Mg Tablet) 20 mg PO DAILY COUNTS INCLUDE 234 BEDS AT THE [facility] Sertraline HCl (Sertraline Hcl 50 Mg Tablet) 50 mg PO DAILY BEN Last Admin: 04/21/23 08:44 Dose: 50 mg Trazodone HCl (Trazodone Hcl 50 Mg Tablet) 50 mg PO BEDTIME MRX1 PRN PRN Reason: Insomnia Last Admin: 04/15/23 21:51 Dose: 50 mg Allergies Allergies Allergy/AdvReac Type Severity Reaction Status Date / Time No Known Allergies Allergy Verified 03/23/23 18:13 Assessment & Plan Assessment & Plan (1) Encephalopathy: Status: Acute Code(s): G93.40 - Encephalopathy, unspecified Assessment and Plan: per 04/21 neuro note: 57 years old woman with relatively quickly progressive neuropsychiatric condition manifesting with depression and cognitive dysfunction. There was also generalized bradykinesia but otherwise no tremor or cogwheeling. No definite upper motor neuron signs were noted other than cross adductor reflex. Multiple blood test have been negative. CSF CJD test was negative. MRI of scans have not reveal any significant pathology. CSF protein was 88, which was somewhat high for her age. It suggested that her primary problem was probably not just psychiatric. Psychiatric issues or probably part of a neuropsychiatric syndrome. Differential diagnosis of this would include an inflammatory but also degenerative condition. In terms of inflammatory conditions, meningoencephalitis panel has been negative and that has ruled out most of those conditions. Autoimmune or paraneoplastic entities are still possibilities. Finally, vasculitis, specially primary DRAPERY AND UPHOLSTERY MEASURER vasculitis might be a consideration too. For more refined diagnosis, CSF paraneoplastic and autoimmune panels should be done but that may require further CSF removal. If all that becomes negative, brain biopsy might be a consideration. Some of this cannot be done in this institution. I recommend that case should be discuss with the tertiary care institution [facility] to see if there was any interest or place available for her to be transferred. In the meantime or if that was not a possibility, I recommend challenging her with prednisone 20 mg a day for 2-3 weeks to see if that would make any difference. (2) Depressive disorder: Status: Acute Code(s): F32.A - Depression, unspecified Plan 03/24:? R/O lewy body dementia.? hold neuroleptics for now, pending neuro consult, as if pt has LBD and receives neuroleptics, irreversible injury may be caused.? pt sees Dr. Mattson and reportedly has had imaging elsewhere.? will ask Dr. Mattson to see her ROCHELLE.? 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 03/25: Continue current regimen and plans.? Neurology consult pending. 03/26: Continue current regimen and plans.? Ordered low-dose Ativan yesterday. 03/27:? per Dr. Mattson, MRI does not demonstrate pathology, Dx of dementia is unclear; his impression was of primary psychiatric disorder and she was started on effexor XR.? EEG was recommended.? will obtain MoCA, T/C low dose of risperidone? at 3 pm and another at HS for what appears to be sundowning/sleep disturbance, if sufficient confidence is present that this is not LBD. 03/28:? MoCA 04/04.? extremely poor visuospatial/executive fxn.? does not appear delirious, general comportment would not betray such a low score.? EEG today, awaiting read.? T/C increasing dose of antidepressant medication.? family mtg with SW and pt's daughter. 03/29:? EEG read as WNL.? HCP obtained from daughter and invoked.? considering transfer to neuro unit for more detailed neuro w/u rather than continuing neuro w/u here.? after discussion with Dr. aMttson, plan made to get LP for dementia markers and other. 03/30:? Dr. Mattson added recommendations for repeat MRI as well as adding CJD carlos eduardo ting to CSF.? LP conducted today and CJD to be sent out; will need to wait for NEG result on that prior to repeat LP for CSF to do additional studies.? no change in presentation today.? MRI deferred to tomorrow due to lack of time. 03/31:? MRI today.? no change in presentation.? level of consciousness seems stable, but mood appears to vary.? no adverse reaction to zyprexa last night.? 2.5 mg PRNs added today for agitation. 04/01:? MRI remains undone.? stably disoriented and sad.? continue current mgmt for now.? T/C reintroducing an antidepressant. 04/02:? MRI scheduled for 04/04.? stable presentation.? continue current mgmt. 04/03:? pt is apparently having difficulty coordinating hands/eyes to get medications into her mouth.? ambulating next to wall for support and following lines in linoleum on the floor.? doesn't know where her room is, wandering into others' rooms.? brain MRI completed this afternoon, not yet read. 04/04:? brain MRI unilluminating.? Dr. Mattson requested to review and opine.? similar presentation as yesterday. 04/05:? case d/w lida and chris.? [place] to consult.? plan made to send for labs for ricketsial/tick-borne illness, inflammatory/auto-immune markers, and available serum markers suggestive of paraneoplastic syndromes.? decision was made to hold transfer to neuropscyh unit as the next step for them would be an LP.? we will plan to wait for CJD negative result and repeat LP for more likely illuminating information.? in the meantime, will DC zyprexa as providing some 5-HT stimulation and use haldol instead with some ativan in the event this is a catatonic depression.? also will add acyclovir prophylaxis in the event this is an HSV encephalitis, as it is one thing we can treat which may otherwise be devastating.? it will be impossible to make truly informed decisions until another LP is able to be done, but the cost-benefit ratio for acyclovir is large. 04/06:? large battery of labs drawn yesterday, most still pending.? CRP elevated.? acyclovir was not started yesterday; awaiting input from ID and medicine prior to initiating any further treatment.? ativan and haldol combination do not appear to have substantially modified pt's presentation. 04/07:? limited labs returned today, thus far not suggestive of auto-immune condition, certain infections diseases ruled out.? continue current mgmt.? CJD results not yet in. 04/08/23 continue treatmetn plan 04/09/23 continue treatment plan 04/10/23 Case reviewed with neurologist.? Haldol discontinued on unclear if worsening motor functioning no clear diagnosis to this point neurological versus primary p sychiatric disorder presenting an unusual manner.? Hospital has been waiting to do repeat lumbar puncture secondary to initial test for prion disease with an need repeat lumbar puncture if no neurological diagnosis consider ECT?? Consider transfer to neurology unit this has been discussed with dialysis chief equipment technician and attending psychiatrist Dr. Matthew and with neurologist Srinivasan 04/11:? tick-borne Dz panel NEG, heavy metals NEG, inflammatory markers unremarkably elevated.? appears notably improved in terms of lability/irritability as well as cognition since DC of anti-psychotic and lowering of ativan dosing. 04/12:? continue current mgmt.? stable presentation. 04/13:? continue current mgmt.? stable.? contacted lab re CJD result status, awaiting response. 04/14:? CJD NEG.? will plan for LP early next week.? no change in presentation.? taper ativan.? discussed case with pt's daughter. 04/15 continue tx 04/16 continue tx. 04/17:? LP ordered with various CSF labs.? no change in presentation.? will add zoloft and zyprexa to regimen for presumed Dx of psychotic depression. 04/18:? LP today.? no change in presentation.? continue current mgmt.? await LP results.? if NEG, proceed as for psychotic depression.? T/C ECT. 04/19:? CSF with protein 88 (nml range 23-38).? most other results pending.? Dr. Mattson notified of result, case discussed with Dr. Trotter.? no change in mgmt pending return of more results, which should guide next steps. 04/20:? CSF infectious panel NEG.? many results remain pending.? case d/w lida.? continue current mgmt pending more info re potential autoimmune or paraneoplastic etiology. 04/21: presentation unchanged. seen by neuro, c ase D/W Dr. Mattson. see above for neuro note details. start prednisone 20 mg daily empiric therapy for now, while remainder of CSF labs pending. Reason for continued inpatient stay Substantial Risk for: inability to function Time Spent With Patient Time: Total time managing care of this patient today _35___ minutes.
[2023-04-21] MEDS: predniSONE 20 MG TABLET PO (13:59)
[2023-04-21 14:59] LABS: Albumin 3.8 g/dL (3.6-5.1); Albumin, CSF 55.8 mg/dL (8.0-42.0); IgG 658 mg/dL (600-1640); IgG Synthesis Rate 0.5 mg/24 h (-9.9-3.3); IgG, CSF 4.8 mg/dL (0.8-7.7)
[2023-04-21 16:33] LABS: VDRL Qualitative CSF Nonreactive (Nonreactive)
[2023-04-21 20:51] VITALS: BP 130/64; PULSE 67; TEMP 36.2; O2SAT 98
[2023-04-21] MEDS: OLANZapine 5 MG TABLET PO (20:51)
[2023-04-21] MEDS: traZODone HCL 50 MG TABLET PO (20:51)
[2023-04-21 20:52] LABS: Glucose, Whole Blood 309 mg/dL (60-115)
[2023-04-22 08:27] LABS: Glucose, Whole Blood 131 mg/dL (60-115)
[2023-04-22 08:35] VITALS: BP 132/64; PULSE 64; RESP 18; TEMP 36.7; O2SAT 97
--- NOTE | 2023-04-22 08:39 | P.PNPSI_ITS ---
Subjective Subjective Date of Service: 04/22/23 Reason For Visit: hallucinations Subjective Notes: Conditional Voluntary Healthcare Proxy: No Guardianship: No Medical Problems Affecting Mental Status: No Interim History: Patient was seen and discussed in rounds today. Records and plans were reviewed. She continues to be on one-to-one observation. Continued to show signs of psychosis. She has been put on prednisone 20 mg for some findings in her CSF by her neurologist Dr. Mattson. She denies any side effects. Continues to show signs of confusion and paranoia and major fluctuations in her mental status within short periods of time. No changes were made today Review of Systems Review of Systems No evidence of seizure or falls. Yes all other systems are reviewed and are negative Mental Status Exam Mental Status Exam Narrative: In today's visit she is alert, oriented to place and person. Soft-spoken spe ech. Minimal eye contact. Affect is constricted. No acute signs of psychosis. Denies any auditory or visual hallucinations. Some paranoia reported. Dangerous behaviors or SI. Cognitively impaired. Judgment is impaired Diagnostics Vital Signs (24Hr): Vital Signs - 24 hr 04/21/23 08:57 04/21/23 10:00 04/21/23 20:51 Temperature 98.2 F 98.1 F 97.2 F Pulse Rate 62 64 67 Respiratory Rate 18 18 Blood Pressure 140/63 H 132/66 130/64 Pulse Oximetry 96 96 98 Oxygen Delivery Method Room Air Room Air Room Air BMI result Body Mass Index 31.2 Labs 04/08/23 09:08 04/17/23 07:02 Labs: Laboratory Results - last 48 hr 04/18/23 04/18/23 04/18/23 11:00 11:58 13:25 POC Glucose Albumin (Send Out) 3.8 CSF Albumin 55.8 H CSF IgG Index 0.50 CSF IgG Synthesis Rate 0.5 CSF/Serum IgG Index 4.8 CSF VDRL Nonreactive CSF C.neoform/gat PCR Not Detected CSF CMV DNA (PCR) Not Detected CSF Enterovirus (PCR) Not Detected CSF E. coli K1 (PCR) Not Detected CSF H. influenzae (PCR) Not Detected CSF HSV I (PCR) Not Detected CSF HSV II (PCR) Not Detected CSF HHV 6 (PCR) Not Detected CSF L.monocytogenes PCR Not Detected CSF N. meningitidis PCR Not Detected CSF Parechovirus (PCR) Not Detected CSF S. agalactiae (PCR) Not Detected CSF S. pneumoniae (PCR) Not Detected CSF VZV (PCR) Not Detected IgG Index 658 04/21/23 04/21/23 04/22/23 08:05 20:41 08:10 POC Glucose 121 H 309 H 131 H Albumin (Send Out) CSF Albumin CSF IgG Index CSF IgG Synthesis Rate CSF/Serum IgG Index CSF VDRL CSF C.neoform/gat PCR CSF CMV DNA (PCR) CSF Enterovirus (PCR) CSF E. coli K1 (PCR) CSF H. influenzae (PCR) CSF HSV I (PCR) CSF HSV II (PCR) CSF HHV 6 (PCR) CSF L.monocytogenes PCR CSF N. meningitidis PCR CSF Parechovirus (PCR) CSF S. agalactiae (PCR) CSF S. pneumoniae (PCR) CSF VZV (PCR) IgG Index Imaging Radiology Impressions: ITS Impressions Brain MRI 04/03/23 15:30 IMPRESSION: No acute infarct, mass lesion, intracranial hemorrhage, or evidence of hydrocephalus. Mild nonspecific T2/FLAIR hyperintensity in the cerebral white matter and danny presumably on the basis of chronic microangiopathy. Lumbar Puncture Fluoroscopy 04/18/23 12:27 IMPRESSION: Fluoroscopy-guided lumbar puncture Medications Medications Current Medications Acetaminophen (Acetaminophen 325 Mg Tablet) 650 mg PO Q6H PRN PRN Reason: Headache/Pain Mild Scale (1-3) Last Admin: 04/20/23 09:02 Dose: 650 mg Al Hydroxide/Mg Hydroxide (Magnesium Hydrox/Alum Hydrox 30 Ml Oral.Susp) 30 ml PO Q6H PRN PRN Reason: Heartburn/Nausea Atorvastatin Calcium (Atorvastatin Calcium 40 Mg Tablet) 40 mg PO DAILY [facility] Last Admin: 04/21/23 08:44 Dose: 40 mg Bupropion HCl (Bupropion Hcl Xl 150 Mg Tab.Er.24h) 150 mg PO DAILY [facility] Last Admin: 04/21/23 08:43 Dose: 150 mg Empagliflozin (Empagliflozin 25 Mg Tablet) 25 mg PO DAILY [facility] Last Admin: 04/21/23 08:43 Dose: 25 mg Famotidine (Famotidine 20 Mg Tablet) 20 mg PO DAILY [facility] Last Admin: 04/21/23 08:44 Dose: 20 mg Magnesium Hydroxide (Milk Of Magnesia 30 Ml Oral.Susp) 30 ml PO DAILY PRN PRN Reason: Constipation Metformin HCl (Metformin Hcl 500 Mg Tablet) 500 mg PO BID [facility] Last Admin: 04/21/23 20:51 Dose: 500 mg Olanzapine (Olanzapine 5 Mg Tablet) 5 mg PO BEDTIME [facility] Last Admin: 04/21/23 20:51 Dose: 5 mg Omeprazole (Omeprazole 20 Mg Capsule.Dr) 20 mg PO DAILY [facility] Last Admin: 04/21/23 08:43 Dose: 20 mg Prednisone (Prednisone 20 Mg Tablet) 20 mg PO DAILY [facility] Last Admin: 04/21/23 13:59 Dose: 20 mg Sertraline HCl (Sertraline Hcl 50 Mg Tablet) 50 mg PO DAILY [facility] Last Admin: 04/21/23 08:44 Dose: 50 mg Trazodone HCl (Trazodone Hcl 50 Mg Tablet) 50 mg PO BEDTIME MRX1 PRN PRN Reason: Insomnia Last Admin: 04/21/23 20:51 Dose: 50 mg Allergies Allergies Allergy/AdvReac Type Severity Reaction Status Date / Time No Known Allergies Allergy Verified 03/23/23 18:13 Assessment & Plan Assessment & Plan (1) Encephalopathy: Status: Acute Code(s): G93.40 - Encephalopathy, unspecified Assessment and Plan: per 04/21 neuro note: 57 years old woman with relatively quickly progressive neuropsychiatric condition manifesting with depression and cognitive dysfunction. There was also generalized bradykinesia but otherwise no tremor or cogwheeling. No definite upper motor neuron signs were noted other than cross adductor reflex. Multiple blood test have been negative. CSF CJD test was negative. MRI of scans have not reveal any significant pathology. CSF protein was 88, which was somewhat high for her age. It suggested that her primary problem was probably not just psychiatric. Psychiatric issues or probably part of a neuropsychiatric syndrome. Differential diagnosis of this would include an inflammatory but also degenerative condition. In terms of inflammatory conditions, meningoencephalitis panel has been negative and that has ruled out most of those conditions. Autoimmune or paraneoplastic entities are still possibilities. Finally, vasculitis, specially primary [employer] vasculitis might be a consideration too. For more refined diagnosis, CSF paraneoplastic and autoimmune panels should be done but that may require further CSF removal. If all that becomes negative, brain biopsy might be a consideration. Some of this cannot be done in this institution. I recommend that case should be discuss with the tertiary care institution [facility] to see if there was any interest or place available for her to be transferred. In the meantime or if that was not a possibility, I recommend challenging her with prednisone 20 mg a day for 2-3 weeks to see if that would make any difference. 04/22: Continue current regimen and plans. Continue one-to-one (2) Depressive disorder: Status: Acute Code(s): F32.A - Depression, unspecified Plan 03/24:? R/O lewy body dementia.? hold neuroleptics for now, pending neuro consult, as if pt has LBD and receives neuroleptics, irreversible injury may be caused.? pt sees Dr. Mattson and reportedly has had imaging elsewhere.? will ask Dr. Mattson to see her ROCHELLE.? 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 03/25: Continue current regimen and plans.? Neurology consult pending. 03/26: Continue current regimen and plans.? Ordered low-dose Ativan yesterday. 03/27:? per Dr. Mattson, MRI does not demonstrate pathology, Dx of dementia is unclear; his impression was of primary psychiatric disorder and she was started on effexor XR.? EEG was recommended.? will obtain MoCA, T/C low dose of risperidone? at 3 pm and another at HS for what appears to be sundowning/sleep disturbance, if sufficient confidence is present that this is not LBD. 03/28:? MoCA 04/04.? extremely poor visuospatial/executive fxn.? does not appear d elirious, general comportment would not betray such a low score.? EEG today, awaiting read.? T/C increasing dose of antidepressant medication.? family mtg with SW and pt's daughter. 03/29:? EEG read as WNL.? HCP obtained from daughter and invoked.? considering transfer to neuro unit for more detailed neuro w/u rather than continuing neuro w/u here.? after discussion with Dr. Mattson, plan made to get LP for dementia markers and other. 03/30:? Dr. Mattson added recommendations for repeat MRI as well as adding CJD testing to CSF.? LP conducted today and CJD to be sent out; will need to wait for NEG result on that prior to repeat LP for CSF to do additional studies.? no change in presentation today.? MRI deferred to tomorrow due to lack of time. 03/31:? MRI today.? no change in presentation.? level of consciousness seems stable, but mood appears to vary.? no adverse reaction to zyprexa last night.? 2.5 mg PRNs added today for agitation. 04/01:? MRI remains undone.? stably disoriented and sad.? continue current mgmt for now.? T/C reintroducing an antidepressant. 04/02:? MRI scheduled for 04/04.? stable presentation.? continue current mgmt. 04/03:? pt is apparently having difficulty coordinating hands/eyes to get medications into her mouth.? ambulating next to wall for support and following lines in linoleum on the floor.? doesn't know where her room is, wandering into others' rooms.? brain MRI completed this afternoon, not yet read. 04/04:? brain MRI unilluminating.? Dr. Mattson requested to review and opine.? similar presentation as yesterday. 04/05:? case d/w lida and chris.? [place] to consult.? plan made to send for labs for ricketsial/tick-borne illness, inflammatory/auto-immune markers, and available serum markers suggestive of paraneoplastic syndromes.? decision was made to hold transfer to neuropscyh unit as the next step for them would be an LP.? we will plan to wait for CJD negative result and repeat LP for more likely illuminating information.? in the meantime, will DC zyprexa as providing some 5-HT stimulation and use haldol instead with some ativan in the event this is a catatonic depression.? also will add acyclovir prophylaxis in the event this is an HSV encephalitis, as it is one thing we can treat which may otherwise be devastating.? it will be impossible to make truly informed decisions until another LP is able to be done, but the cost-benefit ratio for acyclovir is large. 04/06:? large battery of labs drawn yesterday, most still pending.? CRP elevated.? acyclovir was not started yesterday; awaiting input from ID and medicine prior to initiating any further treatment.? ativan and haldol combination do not appear to have substantially modified pt's presentation. 04/07:? limited labs returned today, thus far not suggestive of auto-immune condition, certain infections diseases ruled out.? continue current mgmt.? CJD results not yet in. 04/08/23 continue treatmetn plan 04/09/23 continue treatment plan 04/10/23 Case reviewed with neurologist.? Haldol discontinued on unclear if worsening motor functioning no clear diagnosis to this point neurological versus primary psychiatric disorder presenting an unusual manner.? Hospital has been waiting to do repeat lumbar puncture secondary to initial test for prion disease with an need repeat lumbar puncture if no neurological diagnosis consider ECT?? Consider transfer to neurology unit this has been discussed with helicopter crew chief and attending psychiatrist Dr. Matthew and with neurologist Srinivasan 04/11:? tick-borne Dz panel NEG, heavy metals NEG, inflammatory markers unremarkably elevated.? appears notably improved in terms of lability/irritability as well as cognition since DC of anti-psychotic and lowering of ativan dosing. 04/12:? continue current mgmt.? stable presentation. 04/13:? continue current mgmt.? stable.? contacted lab re CJD result status, awaiting response. 04/14:? CJD NEG.? will plan for LP early next week.? no change in presentation.? taper ativan.? discussed case with pt's daughter. 04/15 continue tx 04/16 continue tx. 04/17:? LP ordered with various CSF labs.? no change in presentation.? will add zoloft and zyprexa to regimen for presumed Dx of psychotic depression. 04/18:? LP today.? no change in presentation.? continue current mgmt.? await LP results.? if NEG, proceed as for psychotic depression.? T/C ECT. 04/19:? CSF with protein 88 (nml range 23-38).? most other results pending.? Dr. Mattson notified of result, case discussed with Dr. Trotter.? no change in mgmt pending return of more results, which should guide next steps. 04/20:? CSF infectious panel NEG.? many results remain pending.? case d/w lida.? continue current mgmt pending more info re potential autoimmune or paraneoplastic etiology. 04/21: presentation unchanged. seen by neuro, c ase D/W Dr. Mattson. see above for neuro note details. start prednisone 20 mg daily empiric therapy for now, while remainder of CSF labs pending. Reason for continued inpatient stay Substantial Risk for: inability to function Time Spent With Patient Time: Total time managing care of this patient today ____ minutes.
[2023-04-22] MEDS: Omeprazole 20 MG CAPSULE.DR PO (09:30)
[2023-04-22] MEDS: Atorvastatin Calcium 40 MG TABLET PO (09:30)
[2023-04-22] MEDS: Famotidine 20 MG TABLET PO (09:31)
[2023-04-22] MEDS: buPROPion HCl XL 150 MG TAB.ER.24H PO (09:31)
[2023-04-22] MEDS: metFORMIN HCl 500 MG TABLET PO ×2 (09:31→20:42)
[2023-04-22] MEDS: predniSONE 20 MG TABLET PO (09:32)
[2023-04-22] MEDS: Empagliflozin 25 MG TABLET PO (09:32)
[2023-04-22] MEDS: Sertraline HCL 50 MG TABLET PO (09:33)
[2023-04-22] MEDS: traZODone HCL 50 MG TABLET PO ×2 (20:42→23:28)
[2023-04-22] MEDS: OLANZapine 5 MG TABLET PO (20:42)
[2023-04-22 20:46] VITALS: BP 126/62; PULSE 68; TEMP 36.6; O2SAT 99
[2023-04-22 20:52] LABS: Glucose, Whole Blood 319 mg/dL (60-115)
[2023-04-23 08:12] LABS: Glucose, Whole Blood 156 mg/dL (60-115)
[2023-04-23 08:30] VITALS: BP 150/71; PULSE 58; RESP 18; TEMP 36.9; O2SAT 98
[2023-04-23] MEDS: Omeprazole 20 MG CAPSULE.DR PO (08:35)
[2023-04-23] MEDS: metFORMIN HCl 500 MG TABLET PO ×2 (08:35→21:13)
[2023-04-23] MEDS: Atorvastatin Calcium 40 MG TABLET PO (08:35)
[2023-04-23] MEDS: predniSONE 20 MG TABLET PO (08:35)
[2023-04-23] MEDS: Famotidine 20 MG TABLET PO (08:35)
[2023-04-23] MEDS: Empagliflozin 25 MG TABLET PO (08:35)
[2023-04-23] MEDS: buPROPion HCl XL 150 MG TAB.ER.24H PO (08:35)
[2023-04-23] MEDS: Sertraline HCL 50 MG TABLET PO (08:35)
--- NOTE | 2023-04-23 09:02 | P.PNPSI_ITS ---
Subjective Subjective Date of Service: 04/23/23 Reason For Visit: hallucinations Subjective Notes: Conditional Voluntary Healthcare Proxy: No Guardianship: No Medical Problems Affecting Mental Status: No Interim History: Patient was seen and discussed in rounds today. Records and plans were reviewed. She actually had a better day yesterday, being less confused. Possibly the prednisone is being helpful. She is still on one-to-one given her level of mental status fluctuation. Last night after taking sleeping medications she became little more confused but did sleep. No complaints or side effects. No changes were made today Medication Compliance: Yes Side effects from medications: No Attending Groups: Intermittent Review of Systems Review of Systems No evidence of seizure or falls. Yes all other systems are reviewed and are negative Mental Status Exam Mental Status Exam Narrative: In today's visit she is alert, oriented to place and person and somewhat to time. Speech is normal. Moderate eye contact. Affect is constricted. No signs of psychosis. No SI. Cognitively she appears to be improved but was not tested formally. Judgment is intact Diagnostics Vital Signs (24Hr): Vital Signs - 24 hr 04/22/23 20:46 Temperature 97.8 F Pulse Rate 68 Blood Pressure 126/62 Pulse Oximetry 99 Oxygen Delivery Method Room Air BMI result Body Mass Index 31.2 Labs 04/08/23 09:08 04/17/23 07:02 Labs: Laboratory Results - last 48 hr 04/18/23 04/18/23 04/21/23 11:58 13:25 20:41 POC Glucose 309 H Albumin (Send Out) 3.8 CSF Albumin 55.8 H CSF IgG Index 0.50 CSF IgG Synthesis Rate 0.5 CSF/Serum IgG Index 4.8 CSF VDRL Nonreactive IgG Index 658 04/22/23 04/22/23 04/23/23 08:10 20:44 08:07 POC Glucose 131 H 319 H 156 H Albumin (Send Out) CSF Albumin CSF IgG Index CSF IgG Synthesis Rate CSF/Serum IgG Index CSF VDRL IgG Index Imaging Radiology Impressions: ITS Impressions Brain MRI 04/03/23 15:30 IMPRESSION: No acute infarct, mass lesion, intracranial hemorrhage, or evidence of hydrocephalus. Mild nonspecific T2/FLAIR hyperintensity in the cerebral white matter and danny presumably on the basis of chronic microangiopathy. Lumbar Puncture Fluoroscopy 04/18/23 12:27 IMPRESSION: Fluoroscopy-guided lumbar puncture Medications Medications Current Medications Acetaminophen (Acetaminophen 325 Mg Tablet) 650 mg PO Q6H PRN PRN Reason: Headache/Pain Mild Scale (1-3) Last Admin: 04/20/23 09:02 Dose: 650 mg Al Hydroxide/Mg Hydroxide (Magnesium Hydrox/Alum Hydrox 30 Ml Oral.Susp) 30 ml PO Q6H PRN PRN Reason: Heartburn/Nausea Atorvastatin Calcium (Atorvastatin Calcium 40 Mg Tablet) 40 mg PO DAILY [facility] Last Admin: 04/23/23 08:35 Dose: 40 mg Bupropion HCl (Bupropion Hcl Xl 150 Mg Tab.Er.24h) 150 mg PO DAILY [facility] Last Admin: 04/23/23 08:35 Dose: 150 mg Empagliflozin (Empagliflozin 25 Mg Tablet) 25 mg PO DAILY [facility] Last Admin: 04/23/23 08:35 Dose: 25 mg Famotidine (Famotidine 20 Mg Tablet) 20 mg PO DAILY [facility] Last Admin: 04/23/23 08:35 Dose: 20 mg Magnesium Hydroxide (Milk Of Magnesia 30 Ml Oral.Susp) 30 ml PO DAILY PRN PRN Reason: Constipation Metformin HCl (Metformin Hcl 500 Mg Tablet) 500 mg PO BID [facility] Last Admin: 04/23/23 08:35 Dose: 500 mg Olanzapine (Olanzapine 5 Mg Tablet) 5 mg PO BEDTIME [facility] Last Admin: 04/22/23 20:42 Dose: 5 mg Omeprazole (Omeprazole 20 Mg Capsule.Dr) 20 mg PO DAILY [facility] Last Admin: 04/23/23 08:35 Dose: 20 mg Prednisone (Prednisone 20 Mg Tablet) 20 mg PO DAILY [facility] Last Admin: 04/23/23 08:35 Dose: 20 mg Sertraline HCl (Sertraline Hcl 50 Mg Tablet) 50 mg PO DAILY [facility] Last Admin: 04/23/23 08:35 Dose: 50 mg Trazodone HCl (Trazodone Hcl 50 Mg Tablet) 50 mg PO BEDTIME MRX1 PRN PRN Reason: Insomnia Last Admin: 04/22/23 23:28 Dose: 50 mg Allergies Allergies Allergy/AdvReac Type Severity Reaction Status Date / Time No Known Allergies Allergy Verified 03/23/23 18:13 Assessment & Plan Assessment & Plan (1) Encephalopathy: Status: Acute Code(s): G93.40 - Encephalopathy, unspecified Assessment and Plan: per 04/21 neuro note: 57 years old woman with relatively quickly progressive neuropsychiatric condition manifesting with depression and cognitive dysfunction. There was also generalized bradykinesia but otherwise no tremor or cogwheeling. No definite upper motor neuron signs were noted other than cross adductor reflex. Multiple blood test have been negative. CSF CJD test was negative. MRI of scans have not reveal any significant pathology. CSF protein was 88, which was somewhat high for her age. It suggested that her primary problem was probably not just psychiatric. Psychiatric issues or probably part of a neuropsychiatric syndrome. Differential diagnosis of this would include an inflammatory but also degenerative condition. In terms of inflammatory conditions, meningoencephalitis panel has been negative and that has ruled out most of those conditions. Autoimmune or paraneoplastic entities are still possibilities. Finally, vasculitis, specially primary [employer] vasculitis might be a consideration too. For more refined diagnosis, CSF paraneoplastic and autoimmune panels should be done but that may require further CSF removal. If all that becomes negative, brain biopsy might be a consideration. Some of this cannot be done in this institution. I recommend that case should be discuss with the tertiary care institution a [facility] psychiatric department to see if there was any interest or place available for her to be transferred. In the meantime or if that was not a possibility, I recommend challenging her with prednisone 20 mg a day for 2-3 weeks to see if that would make any difference. 04/22: Continue current regimen and plans. Continue one-to-one 04/23: Continue current plans and regimen (2) Depressive disorder: Status: Acute Code(s): F32.A - Depression, unspecified Plan 03/24:? R/O lewy body dementia.? hold neuroleptics for now, pending neuro consult, as if pt has LBD and receives neuroleptics, irreversible injury may be caused.? pt sees Dr. Mattson and reportedly has had imaging elsewhere.? will ask Dr. Mattson to see her ROCHELLE.? 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 03/25: Continue current regimen and plans.? Neurology consult pending. 03/26: Continue current regimen and plans.? Ordered low-dose Ativan yesterday. 03/27:? per Dr. Mattson, MRI does not demonstrate pathology, Dx of dementia is unclear; his impression was of primary psychiatric disorder and she was started on effexor XR.? EEG was recommended.? will obtain MoCA, T/C low dose of risp eridone? at 3 pm and another at HS for what appears to be sundowning/sleep disturbance, if sufficient confidence is present that this is not LBD. 03/28:? MoCA 04/04.? extremely poor visuospatial/executive fxn.? does not appear delirious, general comportment would not betray such a low score.? EEG today, awaiting read.? T/C increasing dose of antidepressant medication.? family mtg with SW and pt's daughter. 03/29:? EEG read as WNL.? HCP obtained from daughter and invoked.? considering transfer to neuro unit for more detailed neuro w/u rather than continuing neuro w/u here.? after discussion with Dr. Mattson, plan made to get LP for dementia markers and other. 03/30:? Dr. Mattson added recommendations for repeat MRI as well as adding CJD testing to CSF.? LP conducted today and CJD to be sent out; will need to wait for NEG result on that prior to repeat LP for CSF to do additional studies.? no change in presentation today.? MRI deferred to tomorrow due to lack of time. 03/31:? MRI today.? no change in presentation.? level of consciousness seems stable, but mood appears to vary.? no adverse reaction to zyprexa last night.? 2.5 mg PRNs added today for agitation. 04/01:? MRI remains undone.? stably disoriented and sad.? continue current mgmt for now.? T/C reintroducing an antidepressant. 04/02:? MRI scheduled for 04/04.? stable presentation.? continue current mgmt. 04/03:? pt is apparently having difficulty coordinating hands/eyes to get medications into her mouth.? ambulating next to wall for support and following lines in linoleum on the floor.? doesn't know where her room is, wandering into others' rooms.? brain MRI completed this afternoon, not yet read. 04/04:? brain MRI unilluminating.? Dr. Mattson requested to review and opine.? similar presentation as yesterday. 04/05:? case d/w lida and chris.? jaworek to consult.? plan made to send for labs for ricketsial/tick-borne illness, inflammatory/auto-immune markers, and available serum markers suggestive of paraneoplastic syndromes.? decision was made to hold transfer to neuropscyh unit as the next step for them would be an LP.? we will plan to wait for CJD negative result and repeat LP for more likely illuminating information.? in the meantime, will DC zyprexa as providing some 5-HT stimulation and use haldol instead with some ativan in the event this is a catatonic depression.? also will add acyclovir prophylaxis in the event this is an HSV encephalitis, as it is one thing we can treat which may otherwise be devastating.? it will be impossible to make truly informed decisions until another LP is able to be done, but the cost-benefit ratio for acyclovir is large. 04/06:? large battery of labs drawn yesterday, most still pending.? CRP elevated.? acyclovir was not started yesterday; awaiting input from ID and medicine prior to initiating any further treatment.? ativan and haldol combination do not appear to have substantially modified pt's presentation. 04/07:? limited labs returned today, thus far not suggestive of auto-immune condition, certain infections diseases ruled out.? continue current mgmt.? CJD results not yet in. 04/08/23 continue treatmetn plan 04/09/23 continue treatment plan 04/10/23 Case reviewed with neurologist.? Haldol discontinued on unclear if worsening motor functioning no clear diagnosis to this point neurological versus primary psychiatric disorder presenting an unusual manner.? Hospital has been waiting to do repeat lumbar puncture secondary to initial test for prion disease with an need repeat lumbar puncture if no neurological diagnosis consider ECT?? Consider transfer to neurology unit this has been discussed with chief engineer waterworks and attending psychiatrist Dr. Matthew and with neurologist Srinivasan 04/11:? tick-borne Dz panel NEG, heavy metals NEG, inflammatory markers unrem arkably elevated.? appears notably improved in terms of lability/irritability as well as cognition since DC of anti-psychotic and lowering of ativan dosing. 04/12:? continue current mgmt.? stable presentation. 04/13:? continue current mgmt.? stable.? contacted lab re CJD result status, awaiting response. 04/14:? CJD NEG.? will plan for LP early next week.? no change in presentation.? taper ativan.? discussed case with pt's daughter. 04/15 continue tx 04/16 continue tx. 04/17:? LP ordered with various CSF labs.? no change in presentation.? will add zoloft and zyprexa to regimen for presumed Dx of psychotic depression. 04/18:? LP today.? no change in presentation.? continue current mgmt.? await LP results.? if NEG, proceed as for psychotic depression.? T/C ECT. 04/19:? CSF with protein 88 (nml range 23-38).? most other results pending.? Dr. Mattson notified of result, case discussed with Dr. Trotter.? no change in mgmt pending return of more results, which should guide next steps. 04/20:? CSF infectious panel NEG.? many results remain pending.? case d/w lida.? continue current mgmt pending more info re potential autoimmune or paraneoplastic etiology. 04/21: presentation unchanged. seen by neuro, c ase D/W Dr. Mattson. see above for neuro note details. start prednisone 20 mg daily empiric therapy for now, while remainder of CSF labs pending. Reason for continued inpatient stay Substantial Risk for: inability to function Time Spent With Patient Time: Total time managing care of this patient today ____ minutes.
[2023-04-23 21:00] VITALS: BP 160/72; PULSE 66; RESP 16; O2SAT 99
[2023-04-23 21:13] LABS: Glucose, Whole Blood 247 mg/dL (60-115)
[2023-04-23] MEDS: OLANZapine 5 MG TABLET PO (21:13)
[2023-04-24 08:26] LABS: Glucose, Whole Blood 191 mg/dL (60-115)
[2023-04-24] MEDS: Empagliflozin 25 MG TABLET PO (08:40)
[2023-04-24] MEDS: buPROPion HCl XL 150 MG TAB.ER.24H PO (08:40)
[2023-04-24] MEDS: metFORMIN HCl 500 MG TABLET PO ×2 (08:40→22:00)
[2023-04-24] MEDS: Omeprazole 20 MG CAPSULE.DR PO (08:40)
[2023-04-24] MEDS: predniSONE 20 MG TABLET PO (08:40)
[2023-04-24] MEDS: Sertraline HCL 50 MG TABLET PO (08:40)
[2023-04-24] MEDS: Famotidine 20 MG TABLET PO (08:40)
[2023-04-24] MEDS: Atorvastatin Calcium 40 MG TABLET PO (08:40)
[2023-04-24 09:12] VITALS: BP 112/55; PULSE 60; RESP 18; TEMP 36.2; O2SAT 98
--- NOTE | 2023-04-24 15:17 | HO.PSYCHPN ---
Subjective Subjective Date of Service: 04/24/23 Reason For Visit: hallucinations Interim History: calm, cooperative. cognition grossly impaired but appears to navigate about the interview room and unit more aptly. believes the year is 2021 and cannot learn otherwise despite multiple trials at short intervals. easily derailed, unable to attend for more than a very brief period. per staff, mod anx/dep. eating and sleeping well. calm, kind, pleasant. +grps. denying psych Sx. responsive, brighter mood. Mental Status Exam Mental Status Exam Narrative: calm, cooperative, diminutive. disheveled. general PMR. fair eye contact, speech nml rate, soft, decr prosody, decr amount. thoughts generally linear/relevant interchange; paucity of thought. affect constricted, hypo-intense, non-labile. no SI/SIBI/HI/AVH expressed. gross cognitive impairment. Diagnostics Vital Signs (24Hr): Vital Signs - 24 hr 04/23/23 21:00 04/24/23 09:12 Temperature 97.1 F Pulse Rate 66 60 Respiratory Rate 16 18 Blood Pressure 160/72 H 112/55 L Pulse Oximetry 99 98 Oxygen Delivery Method Room Air Room Air BMI result Body Mass Index 31.2 Labs 04/08/23 09:08 04/17/23 07:02 Labs: Laboratory Results - last 48 hr 04/22/23 04/23/23 04/23/23 20:44 08:07 21:09 POC Glucose 319 H 156 H 247 H 04/24/23 08:17 POC Glucose 191 H Imaging Radiology Impressions: ITS Impressions Brain MRI 04/03/23 15:30 IMPRESSION: No acute infarct, mass lesion, intracranial hemorrhage, or evidence of hydrocephalus. Mild nonspecific T2/FLAIR hyperintensity in the cerebral white matter and danny presumably on the basis of chronic microangiopathy. Lumbar Puncture Fluoroscopy 04/18/23 12:27 IMPRESSION: Fluoroscopy-guided lumbar puncture Medications Medications Current Medications Acetaminophen (Acetaminophen 325 Mg Tablet) 650 mg PO Q6H PRN PRN Reason: Headache/Pain Mild Scale (1-3) Last Admin: 04/20/23 09:02 Dose: 650 mg Al Hydroxide/Mg Hydroxide (Magnesium Hydrox/Alum Hydrox 30 Ml Oral.Susp) 30 ml PO Q6H PRN PRN Reason: Heartburn/Nausea Atorvastatin Calcium (Atorvastatin Calcium 40 Mg Tablet) 40 mg PO DAILY [facility] Last Admin: 04/24/23 08:40 Dose: 40 mg Bupropion HCl (Bupropion Hcl Xl 150 Mg Tab.Er.24h) 150 mg PO DAILY [facility] Last Admin: 04/24/23 08:40 Dose: 150 mg Empagliflozin (Empagliflozin 25 Mg Tablet) 25 mg PO DAILY [facility] Last Admin: 04/24/23 08:40 Dose: 25 mg Famotidine (Famotidine 20 Mg Tablet) 20 mg PO DAILY [facility] Last Admin: 04/24/23 08:40 Dose: 20 mg Magnesium Hydroxide (Milk Of Magnesia 30 Ml Oral.Susp) 30 ml PO DAILY PRN PRN Reason: Constipation Metformin HCl (Metformin Hcl 500 Mg Tablet) 500 mg PO BID [facility] Last Admin: 04/24/23 08:40 Dose: 500 mg Olanzapine (Olanzapine 5 Mg Tablet) 5 mg PO BEDTIME [facility] Last Admin: 04/23/23 21:13 Dose: 5 mg Omeprazole (Omeprazole 20 Mg Capsule.Dr) 20 mg PO DAILY [facility] Last Admin: 04/24/23 08:40 Dose: 20 mg Prednisone (Prednisone 20 Mg Tablet) 20 mg PO DAILY [facility] Last Admin: 04/24/23 08:40 Dose: 20 mg Sertraline HCl (Sertraline Hcl 50 Mg Tablet) 50 mg PO DAILY [facility] Last Admin: 04/24/23 08:40 Dose: 50 mg Trazodone HCl (Trazodone Hcl 50 Mg Tablet) 50 mg PO BEDTIME MRX1 PRN PRN Reason: Insomnia Last Admin: 04/22/23 23:28 Dose: 50 mg Allergies Allergies Allergy/AdvReac Type Severity Reaction Status Date / Time No Known Allergies Allergy Verified 03/23/23 18:13 Assessment & Plan Assessment & Plan (1) Encephalopathy: Status: Acute Code(s): G93.40 - Encephalopathy, unspecified Assessment and Plan: per 04/21 neuro note: 57 years old woman with relatively quickly progressive neuropsychiatric condition manifesting with depression and cognitive dysfunction. There was also generalized bradykinesia but otherwise no tremor or cogwheeling. No definite upper motor neuron signs were noted other than cross adductor reflex. Multiple blood test have been negative. CSF CJD test was negative. MRI of scans have not reveal any significant pathology. CSF protein was 88, which was somewhat high for her age. It suggested that her primary problem was probably not just psychiatric. Psychiatric issues or probably part of a neuropsychiatric syndrome. Differential diagnosis of this would include an inflammatory but also degenerative condition. In terms of inflammatory conditions, meningoencephalitis panel has been negative and that has ruled out most of those conditions. Autoimmune or paraneoplastic entities are still possibilities. Finally, vasculitis, specially primary [employer] vasculitis might be a consideration too. For more refined diagnosis, CSF paraneoplastic and autoimmune panels should be done but that may require further CSF removal. If all that becomes negative, brain biopsy might be a consideration. Some of this cannot be done in this institution. I recommend that case should be discuss with the [facility] care institution [facility] psychiatric department to see if there was any interest or place available for her to be transferred. In the meantime or if that was not a possibility, I recommend challenging her with prednisone 20 mg a day for 2-3 weeks to see if that would make any difference. (2) Depressive disorder: Status: Acute Code(s): F32.A - Depression, unspecified Plan 03/24:? R/O lewy body dementia.? hold neuroleptics for now, pending neuro consult, as if pt has LBD and receives neuroleptics, irreversible injury may be caused.? pt sees Dr. Mattson and reportedly has had imaging elsewhere.? will ask Dr. Mattson to see her ROCHELLE.? 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 03/25: Continue current regimen and plans.? Neurology consult pending. 03/26: Continue current regimen and plans.? Ordered low-dose Ativan yesterday. 03/27:? per Dr. Mattson, MRI does not demonstrate pathology, Dx of dementia is unclear; his impression was of primary psychiatric disorder and she was started on effexor XR.? EEG was recommended.? will obtain MoCA, T/C low dose of risperidone? at 3 pm and another at HS for what appears to be sundowning/sleep disturbance, if sufficient confidence is present that this is not LBD. 03/28:? MoCA 04/04.? extremely poor visuospatial/executive fxn.? does not appear delirious, general comportment would not betray such a low score.? EEG today, awaiting read.? T/C increasing dose of antidepressant medication.? family mtg with SW and pt's daughter. 03/29:? EEG read as WNL.? HCP obtained from daughter and invoked.? considering transfer to neuro unit for more detailed neuro w/u rather than continuing neuro w/u here.? after discussion with Dr. Mattson, plan made to get LP for dementia markers and other. 03/30:? Dr. Mattson added recommendations for repeat MRI as well as adding CJD testing to CSF.? LP conducted today and CJD to be sent out; will need to wait for NEG result on that prior to repeat LP for CSF to do additional studies.? no change in presentation today.? MRI deferred to tomorrow due to lack of time. 03/31:? MRI today.? no change in presentation.? level of consciousness seems stable, but mood appears to vary.? no adverse reaction to zyprexa last night.? 2.5 mg PRNs added today for agitation. 04/01:? MRI remains undone.? stably disoriented and sad.? continue current mgmt for now.? T/C reintroducing an antidepressant. 04/02:? MRI scheduled for 04/04.? stable presentation.? continue current mgmt. 04/03:? pt is apparently having difficulty coordinating hands/eyes to get medications into her mouth.? ambulating next to wall for support and following lines in linoleum on the floor.? doesn't know where her room is, wandering into others' rooms.? brain MRI completed this afternoon, not yet read. 04/04:? brain MRI unilluminating.? Dr. Mattson requested to review and opine.? similar presentation as yesterday. 04/05:? case d/w lida and chris.? jaworek to consult.? plan made to send for labs for ricketsial/tick-borne illness, inflammatory/auto-immune markers, and available serum markers suggestive of paraneoplastic syndromes.? decision was made to hold transfer to neuropscyh unit as the next step for them would be an LP.? we will plan to wait for CJD negative result and repeat LP for more likely illuminating information.? in the meantime, will DC zyprexa as providing some 5-HT stimulation and use haldol instead with some ativan in the event this is a catatonic depression.? also will add acyclovir prophylaxis in the event this is an HSV encephalitis, as it is one thing we can treat which may otherwise be devastating.? it will be impossible to make truly informed decisions until another LP is able to be done, but the cost-benefit ratio for acyclovir is large. 04/06:? large battery of labs drawn yesterday, most still pending.? CRP elevated.? acyclovir was not started yesterday; awaiting input from ID and medicine prior to initiating any further treatment.? ativan and haldol combination do not appear to have substantially modified pt's presentation. 04/07:? limited labs returned today, thus far not suggestive of auto-immune condition, certain infections diseases ruled out.? continue current mgmt.? CJD results not yet in. 04/08/23 continue treatmetn plan 04/09/23 continue treatment plan 04/10/23 Case reviewed with neurologist.? Haldol discontinued on unclear if worsening motor functioning no clear diagnosis to this point neurological versus primary psychiatric disorder presenting an unusual manner.? Hospital has been waiting to do repeat lumbar puncture secondary to initial test for prion disease with an need repeat lumbar puncture if no neurological diagnosis consider ECT?? Consider transfer to neurology unit this has been discussed with steward/stewardess chief cargo vessel and attending psychiatrist Dr. Matthew and with neurologist Srinivasan 04/11:? tick-borne Dz panel NEG, heavy metals NEG, inflammatory markers unremarkably elevated.? appears notably improved in terms of lability/irritability as well as cognition since DC of anti-psychotic and lowering of ativan dosing. 04/12:? continue current mgmt.? stable presentation. 04/13:? continue current mgmt.? stable.? contacted lab re CJD result status, awaiting response. 04/14:? CJD NEG.? will plan for LP early next week.? no change in presentation.? taper ativan.? discussed case with pt's daughter. 04/15 continue tx 04/16 continue tx. 04/17:? LP ordered with various CSF labs.? no change in presentation.? will add zoloft and zyprexa to regimen for presumed Dx of psychotic depression. 04/18:? LP today.? no change in presentation.? continue current mgmt.? await LP results.? if NEG, proceed as for psychotic depression.? T/C ECT. 04/19:? CSF with protein 88 (nml range 23-38).? most other results pending.? Dr. Mattson notified of result, case discussed with Dr. Trotter.? no change in mgmt pending return of more results, which should guide next steps. 04/20:? CSF infectious panel NEG.? many results remain pending.? case d/w lida.? continue current mgmt pending more info re potential autoimmune or paraneoplastic etiology. 04/21: presentation unchanged. seen by neuro, c ase D/W Dr. Mattson. see above for neuro note details. start prednisone 20 mg daily empiric therapy for now, while remainder of CSF labs pending. 04/22: Continue current regimen and plans. Continue one-to-one 04/23: Continue current plans and regimen 04/24: perhaps mild improvement in spatial navigation and awareness since prednisone start. awaiting lab results to return. continue current mgmt for now. Reason for continued inpatient stay Substantial Risk for: inability to function and rapid decompensation Time Spent With Patient Time: Total time managing care of this patient today _25___ minutes.
[2023-04-24 18:32] VITALS: BP 156/65; PULSE 60; RESP 16; TEMP 36.9; O2SAT 100
[2023-04-24] MEDS: OLANZapine 5 MG TABLET PO (22:00)
[2023-04-25 04:13] LABS: Glucose, Whole Blood 242 mg/dL (60-115)
[2023-04-25 08:32] VITALS: BP 133/65; PULSE 61; RESP 18; TEMP 36.7; O2SAT 98
[2023-04-25 08:58] LABS: Glucose, Whole Blood 148 mg/dL (60-115)
[2023-04-25] MEDS: Famotidine 20 MG TABLET PO (09:05)
[2023-04-25] MEDS: Sertraline HCL 50 MG TABLET PO (09:05)
[2023-04-25] MEDS: metFORMIN HCl 500 MG TABLET PO ×2 (09:05→20:04)
[2023-04-25] MEDS: Empagliflozin 25 MG TABLET PO (09:05)
[2023-04-25] MEDS: buPROPion HCl XL 150 MG TAB.ER.24H PO (09:05)
[2023-04-25] MEDS: predniSONE 20 MG TABLET PO (09:05)
[2023-04-25] MEDS: Omeprazole 20 MG CAPSULE.DR PO (09:05)
[2023-04-25] MEDS: Atorvastatin Calcium 40 MG TABLET PO (09:05)
[2023-04-25 12:38] LABS: Oligoclonal Banding Absent (Absent)
--- NOTE | 2023-04-25 15:50 | HO.PSYCHPN ---
Subjective Subjective Date of Service: 04/25/23 Reason For Visit: hallucinations Interim History: no change in presentation. calm, cooperative, confabulating. per staff, no changes. FSBS elevated, likely from steroids. slept 10:30 - 0700. Mental Status Exam Mental Status Exam Narrative: calm, cooperative, diminutive. disheveled. general PMR. fair eye contact, speech nml rate, soft, decr prosody, decr amount. thoughts generally linear/relevant interchange; paucity of thought. affect constricted, hypo-intense, non-labile. no SI/SIBI/HI/AVH expressed. gross cognitive impairment. Diagnostics Vital Signs (24Hr): Vital Signs - 24 hr 04/24/23 18:32 04/25/23 08:32 Temperature 98.5 F 98.1 F Pulse Rate 60 61 Respiratory Rate 16 18 Blood Pressure 156/65 H 133/65 Pulse Oximetry 100 98 Oxygen Delivery Method Room Air Room Air BMI result Body Mass Index 31.2 Labs 04/08/23 09:08 04/17/23 07:02 Labs: Laboratory Results - last 48 hr 04/18/23 04/23/23 04/24/23 13:25 21:09 08:17 POC Glucose 247 H 191 H CSF Oligoclonal Bands Absent 04/24/23 04/25/23 21:56 08:54 POC Glucose 242 H 148 H CSF Oligoclonal Bands Imaging Radiology Impressions: ITS Impressions Brain MRI 04/03/23 15:30 IMPRESSION: No acute infarct, mass lesion, intracranial hemorrhage, or evidence of hydrocephalus. Mild nonspecific T2/FLAIR hyperintensity in the cerebral white matter and danny presumably on the basis of chronic microangiopathy. Lumbar Puncture Fluoroscopy 04/18/23 12:27 IMPRESSION: Fluoroscopy-guided lumbar puncture Medications Medications Current Medications Acetaminophen (Acetaminophen 325 Mg Tablet) 650 mg PO Q6H PRN PRN Reason: Headache/Pain Mild Scale (1-3) Last Admin: 04/20/23 09:02 Dose: 650 mg Al Hydroxide/Mg Hydroxide (Magnesium Hydrox/Alum Hydrox 30 Ml Oral.Susp) 30 ml PO Q6H PRN PRN Reason: Heartburn/Nausea Atorvastatin Calcium (Atorvastatin Calcium 40 Mg Tablet) 40 mg PO DAILY [facility] Last Admin: 04/25/23 09:05 Dose: 40 mg Bupropion HCl (Bupropion Hcl Xl 150 Mg Tab.Er.24h) 150 mg PO DAILY [facility] Last Admin: 04/25/23 09:05 Dose: 150 mg Empagliflozin (Empagliflozin 25 Mg Tablet) 25 mg PO DAILY [facility] Last Admin: 04/25/23 09:05 Dose: 25 mg Famotidine (Famotidine 20 Mg Tablet) 20 mg PO DAILY [facility] Last Admin: 04/25/23 09:05 Dose: 20 mg Magnesium Hydroxide (Milk Of Magnesia 30 Ml Oral.Susp) 30 ml PO DAILY PRN PRN Reason: Constipation Metformin HCl (Metformin Hcl 500 Mg Tablet) 500 mg PO BID [facility] Last Admin: 04/25/23 09:05 Dose: 500 mg Olanzapine (Olanzapine 5 Mg Tablet) 5 mg PO BEDTIME [facility] Last Admin: 04/24/23 22:00 Dose: 5 mg Omeprazole (Omeprazole 20 Mg Capsule.Dr) 20 mg PO DAILY [facility] Last Admin: 04/25/23 09:05 Dose: 20 mg Prednisone (Prednisone 20 Mg Tablet) 20 mg PO DAILY [facility] Last Admin: 04/25/23 09:05 Dose: 20 mg Sertraline HCl (Sertraline Hcl 50 Mg Tablet) 50 mg PO DAILY [facility] Last Admin: 04/25/23 09:05 Dose: 50 mg Trazodone HCl (Trazodone Hcl 50 Mg Tablet) 50 mg PO BEDTIME MRX1 PRN PRN Reason: Insomnia Last Admin: 04/22/23 23:28 Dose: 50 mg Allergies Allergies Allergy/AdvReac Type Severity Reaction Status Date / Time No Known Allergies Allergy Verified 03/23/23 18:13 Assessment & Plan Assessment & Plan (1) Encephalopathy: Status: Acute Code(s): G93.40 - Encephalopathy, unspecified Assessment and Plan: per 04/21 neuro note: 57 years old woman with relatively quickly progressive neuropsychiatric condition manifesting with depression and cognitive dysfunction. There was also generalized bradykinesia but otherwise no tremor or cogwheeling. No definite upper motor neuron signs were noted other than cross adductor reflex. Multiple blood test have been negative. CSF CJD test was negative. MRI of scans have not reveal any significant pathology. CSF protein was 88, which was somewhat high for her age. It suggested that her primary problem was probably not just psychiatric. Psychiatric issues or probably part of a neuropsychiatric syndrome. Differential diagnosis of this would include an inflammatory but also degenerative condition. In terms of inflammatory conditions, meningoencephalitis panel has been negative and that has ruled out most of those conditions. Autoimmune or paraneoplastic entities are still possibilities. Finally, vasculitis, specially primary CONTENT ASSISTANT vasculitis might be a consideration too. For more refined diagnosis, CSF paraneoplastic and autoimmune panels should be done but that may require further CSF removal. If all that becomes negative, brain biopsy might be a consideration. Some of this cannot be done in this institution. I recommend that case should be discuss with the tertiary care institution a [facility] psychiatric department to see if there was any interest or place available for her to be transferred. In the meantime or if that was not a possibility, I recommend challenging her with prednisone 20 mg a day for 2-3 weeks to see if that would make any difference. (2) Depressive disorder: Status: Acute Code(s): F32.A - Depression, unspecified Plan 03/24:? R/O lewy body dementia.? hold neuroleptics for now, pending neuro consult, as if pt has LBD and receives neuroleptics, irreversible injury may be caused.? pt sees Dr. Mattson and reportedly has had imaging elsewhere.? will ask Dr. Mattson to see her ROCHELLE.? 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 03/25: Continue current regimen and plans.? Neurology consult pending. 03/26: Continue current regimen and plans.? Ordered low-dose Ativan yesterday. 03/27:? per Dr. Mattson, MRI does not demonstrate pathology, Dx of dementia is unclear; his impression was of primary psychiatric disorder and she was started on effexor XR.? EEG was recommended.? will obtain MoCA, T/C low dose of risperidone? at 3 pm and another at HS for what appears to be sundowning/sleep disturbance, if sufficient confidence is present that this is not LBD. 03/28:? MoCA 04/04.? extremely poor visuospatial/executive fxn.? does not appear delirious, general comportment would not betray such a low score.? EEG today, awaiting read.? T/C increasing dose of antidepressant medication.? family mtg with SW and pt's daughter. 03/29:? EEG read as WNL.? HCP obtained from daughter and invoked.? considering transfer to neuro unit for more detailed neuro w/u rather than continuing neuro w/u here.? after discussion with Dr. Mattson, plan made to get LP for dementia markers and other. 03/30:? Dr. Mattson added recommendations for repeat MRI as well as adding CJD testing to CSF.? LP conducted today and CJD to be sent out; will need to wait for NEG result on that prior to repeat LP for CSF to do additional studies.? no change in presentation today.? MRI deferred to tomorrow due to lack of time. 03/31:? MRI today.? no change in presentation.? level of consciousness seems stable, but mood appears to vary.? no adverse reaction to zyprexa last night.? 2.5 mg PRNs added today for agitation. 04/01:? MRI remains undone.? stably disoriented and sad.? continue current mgmt for now.? T/C reintroducing an antidepressant. 04/02:? MRI scheduled for 04/04.? stable presentation.? continue current mgmt. 04/03:? pt is apparently having difficulty coordinating hands/eyes to get medications into her mouth.? ambulating next to wall for support and following lines in linoleum on the floor.? doesn't know where her room is, wandering into others' rooms.? brain MRI completed this afternoon, not yet read. 04/04:? brain MRI unilluminating.? Dr. Mattson requested to review and opine.? similar presentation as yesterday. 04/05:? case d/w liad and chris.? jaworek to consult.? plan made to send for labs for ricketsial/tick-borne illness, inflammatory/auto-immune markers, and available serum markers suggestive of paraneoplastic syndromes.? decision was made to hold transfer to neuropscyh unit as the next step for them would be an LP.? we will plan to wait for CJD negative result and repeat LP for more likely illuminating information.? in the meantime, will DC zyprexa as providing some 5-HT stimulation and use haldol instead with some ativan in the event this is a catatonic depression.? also will add acyclovir prophylaxis in the event this is an HSV encephalitis, as it is one thing we can treat which may otherwise be devastating.? it will be impossible to make truly informed decisions until another LP is able to be done, but the cost-benefit ratio for acyclovir is large. 04/06:? large battery of labs drawn yesterday, most still pending.? CRP elevated.? acyclovir was not started yesterday; awaiting input from ID and medicine prior to initiating any further treatment.? ativan and haldol combination do not appear to have substantially modified pt's presentation. 04/07:? limited labs returned today, thus far not suggestive of auto-immune condition, certain infections diseases ruled out.? continue current mgmt.? CJD results not yet in. 04/08/23 continue treatmetn plan 04/09/23 continue treatment plan 04/10/23 Case reviewed with neurologist.? Haldol discontinued on unclear if worsening motor functioning no clear diagnosis to this point neurological versus primary psychiatric disorder presenting an unusual manner.? Hospital has been waiting to do repeat lumbar puncture secondary to initial test for prion disease with an need repeat lumbar puncture if no neurological diagnosis consider ECT?? Consider transfer to neurology unit this has been discussed with chief strategy officer and attending psychiatrist Dr. Matthew and with neurologist Srinivasan 04/11:? tick-borne Dz panel NEG, heavy metals NEG, inflammatory markers unremarkably elevated.? appears notably improved in terms of lability/irritability as well as cognition since DC of anti-psychotic and lowering of ativan dosing. 04/12:? continue current mgmt.? stable presentation. 04/13:? continue current mgmt.? stable.? contacted lab re CJD result status, awaiting response. 04/14:? CJD NEG.? will plan for LP early next week.? no change in presentation.? taper ativan.? discussed case with pt's daughter. 04/15 continue tx 04/16 continue tx. 04/17:? LP ordered with various CSF labs.? no change in presentation.? will add zoloft and zyprexa to regimen for presumed Dx of psychotic depression. 04/18:? LP today.? no change in presentation.? continue current mgmt.? await LP results.? if NEG, proceed as for psychotic depression.? T/C ECT. 04/19:? CSF with protein 88 (nml range 23-38).? most other results pending.? Dr. Mattson notified of result, case discussed with Dr. Trotter.? no change in mgmt pending return of more results, which should guide next steps. 04/20:? CSF infectious panel NEG.? many results remain pending.? case d/w lida.? continue current mgmt pending more info re potential autoimmune or paraneoplastic etiology. 04/21: presentation unchanged. seen by neuro, c ase D/W Dr. Mattson. see above for neuro note details. start prednisone 20 mg daily empiric therapy for now, while remainder of CSF labs pending. 04/22: Continue current regimen and plans. Continue one-to-one 04/23: Continue current plans and regimen 04/24: perhaps mild improvement in spatial navigation and awareness since prednisone start. awaiting lab results to return. continue current mgmt for now. 04/25: elevated CSF protein and albumin. all other tests either normal or pending. continue current mgmt. probable pt will need to be transferred to neuropsych unit for more detailed w/u. Reason for continued inpatient stay Substantial Risk for: inability to function and rapid decompensation Time Spent With Patient Time: Total time managing care of this patient today __25__ minutes.
[2023-04-25] MEDS: traZODone HCL 50 MG TABLET PO (20:05)
[2023-04-25] MEDS: OLANZapine 5 MG TABLET PO (20:05)
[2023-04-25 20:07] VITALS: BP 151/71; PULSE 62; TEMP 37.1; O2SAT 94
[2023-04-25 20:15] LABS: Glucose, Whole Blood 330 mg/dL (60-115)
[2023-04-26 08:01] VITALS: BP 144/69; PULSE 58; RESP 17; TEMP 36.4; O2SAT 98
[2023-04-26 08:20] LABS: Glucose, Whole Blood 163 mg/dL (60-115)
[2023-04-26] MEDS: Atorvastatin Calcium 40 MG TABLET PO (09:02)
[2023-04-26] MEDS: metFORMIN HCl 500 MG TABLET PO ×2 (09:03→20:39)
[2023-04-26] MEDS: predniSONE 20 MG TABLET PO ×2 (09:03→20:39)
[2023-04-26] MEDS: buPROPion HCl XL 150 MG TAB.ER.24H PO (09:03)
[2023-04-26] MEDS: Omeprazole 20 MG CAPSULE.DR PO (09:03)
[2023-04-26] MEDS: Famotidine 20 MG TABLET PO (09:03)
[2023-04-26] MEDS: Empagliflozin 25 MG TABLET PO (09:04)
[2023-04-26] MEDS: Sertraline HCL 50 MG TABLET PO (09:04)
[2023-04-26 14:18] LABS: Hu Antibody Screen, CSF NEGATIVE (NEGATIVE)
--- NOTE | 2023-04-26 15:36 | P.PNPSI_ITS ---
Subjective Subjective Date of Service: 04/26/23 Reason For Visit: hallucinations Interim History: no change in presentation. states she is feeling good, says she is participating in walking, groups. no questions or concerns. per staff, confused during art group. unsteady gait. visited with sister. dagmar [employer]re[employer]. Mental Status Exam Mental Status Exam Narrative: calm, cooperative, diminutive. disheveled. general PMR. fair eye contact, speech nml rate, soft, decr prosody, decr amount. thoughts generally linear/relevant interchange; paucity of thought. affect constricted, hypo- intense, non-labile. no SI/SIBI/HI/AVH expressed. gross cognitive impairment. Diagnostics Vital Signs (24Hr): Vital Signs - 24 hr 04/25/23 20:07 04/26/23 08:01 Temperature 98.7 F 97.6 F Pulse Rate 62 58 Respiratory Rate 17 Blood Pressure 151/71 H 144/69 H Pulse Oximetry 94 98 Oxygen Delivery Method Room Air Room Air BMI result Body Mass Index 31.2 Labs 04/08/23 09:08 04/17/23 07:02 Labs: Laboratory Results - last 48 hr 04/18/23 04/18/23 04/24/23 11:58 13:25 21:56 POC Glucose 242 H CSF Oligoclonal Bands Absent Neuronal Nuc Ab Screen NEGATIVE 04/25/23 04/25/23 04/26/23 08:54 20:10 08:16 POC Glucose 148 H 330 H 163 H CSF Oligoclonal Bands Neuronal Nuc Ab Screen Imaging Radiology Impressions: ITS Impressions Brain MRI 04/03/23 15:30 IMPRESSION: No acute infarct, mass lesion, intracranial hemorrhage, or evidence of hydrocephalus. Mild nonspecific T2/FLAIR hyperintensity in the cerebral white matter and danny presumably on the basis of chronic microangiopathy. Lumbar Puncture Fluoroscopy 04/18/23 12:27 IMPRESSION: Fluoroscopy-guided lumbar puncture Medications Medications Current Medications Acetaminophen (Acetaminophen 325 Mg Tablet) 650 mg PO Q6H PRN PRN Reason: Headache/Pain Mild Scale (1-3) Last Admin: 04/20/23 09:02 Dose: 650 mg Al Hydroxide/Mg Hydroxide (Magnesium Hydrox/Alum Hydrox 30 Ml Oral.Susp) 30 ml PO Q6H PRN PRN Reason: Heartburn/Nausea Atorvastatin Calcium (Atorvastatin Calcium 40 Mg Tablet) 40 mg PO DAILY [facility] Last Admin: 04/26/23 09:02 Dose: 40 mg Bupropion HCl (Bupropion Hcl Xl 150 Mg Tab.Er.24h) 150 mg PO DAILY [facility] Last Admin: 04/26/23 09:03 Dose: 150 mg Empagliflozin (Empagliflozin 25 Mg Tablet) 25 mg PO DAILY [facility] Last Admin: 04/26/23 09:04 Dose: 25 mg Famotidine (Famotidine 20 Mg Tablet) 20 mg PO DAILY [facility] Last Admin: 04/26/23 09:03 Dose: 20 mg Magnesium Hydroxide (Milk Of Magnesia 30 Ml Oral.Susp) 30 ml PO DAILY PRN PRN Reason: Constipation Metformin HCl (Metformin Hcl 500 Mg Tablet) 500 mg PO BID [facility] Last Admin: 04/26/23 09:03 Dose: 500 mg Olanzapine (Olanzapine 5 Mg Tablet) 5 mg PO BEDTIME [facility] Last Admin: 04/25/23 20:05 Dose: 5 mg Omeprazole (Omeprazole 20 Mg Capsule.Dr) 20 mg PO DAILY [facility] Last Admin: 04/26/23 09:03 Dose: 20 mg Prednisone (Prednisone 20 Mg Tablet) 20 mg PO BID [facility] Sertraline HCl (Sertraline Hcl 50 Mg Tablet) 50 mg PO DAILY [facility] Last Admin: 04/26/23 09:04 Dose: 50 mg Trazodone HCl (Trazodone Hcl 50 Mg Tablet) 50 mg PO BEDTIME MRX1 PRN PRN Reason: Insomnia Last Admin: 04/25/23 20:05 Dose: 50 mg Allergies Allergies Allergy/AdvReac Type Severity Reaction Status Date / Time No Known Allergies Allergy Verified 03/23/23 18:13 Assessment & Plan Assessment & Plan (1) Encephalopathy: Status: Acute Code(s): G93.40 - Encephalopathy, unspecified Assessment and Plan: 57 years old woman with relatively quickly progressive neuropsychiatric condition manifesting with depression and cognitive dysfunction. There was also generalized bradykinesia but otherwise no tremor or cogwheeling. No definite upper motor neuron signs were noted other than cross adductor reflex. Multiple blood test have been negative. CSF CJD test was negative. MRI of scans have not reveal any significant pathology. CSF protein was 88, which was somewhat high for her age. It suggested that her primary problem was probably not just psychiatric. Psychiatric issues or probably part of a neuropsychiatric syndrome. Differential diagnosis of this would include an inflammatory but also degenerative condition. In terms of inflammatory conditions, meningoencephalitis panel has been negative and that has ruled out most of those conditions. Autoimmune or paraneoplastic entities are still possibilities. Finally, vasculitis, specially primary MATERIAL CHECKER vasculitis might be a consideration too. For more refined diagnosis, CSF paraneoplastic and autoimmune panels should be done but that may require further CSF removal. If all that becomes negative, brain biopsy might be a consideration. Some of this cannot be done in this institution. I recommend that case should be discuss with the tertiary care institution [facility] to see if there was any interest or place available for her to be transferred. In the meantime or if that was not a possibility, I recommend challenging her with prednisone 20 mg a day for 2-3 weeks to see if that would make any difference. (2) Depressive disorder: Status: Acute Code(s): F32.A - Depression, unspecified Plan 03/24:? R/O lewy body dementia.? hold neuroleptics for now, pending neuro consult, as if pt has LBD and receives neuroleptics, irreversible injury may be caused.? pt sees Dr. Mattson and reportedly has had imaging elsewhere.? will ask Dr. Mattson to see her ROCHELLE.? 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 03/25: Continue current regimen and plans.? Neurology consult pending. 03/26: Continue current regimen and plans.? Ordered low-dose Ativan yesterday. 03/27:? per Dr. Mattson, MRI does not demonstrate pathology, Dx of dementia is unclear; his impression was of primary psychiatric disorder and she was started on effexor XR.? EEG was recommended.? will obtain MoCA, T/C low dose of risperidone? at 3 pm and another at HS for what appears to be sundowning/sleep disturbance, if sufficient confidence is present that this is not LBD. 03/28:? MoCA 04/04.? extremely poor visuospatial/executive fxn.? does not appear delirious, general comportment would not betray such a low score.? EEG today, awaiting read.? T/C increasing dose of antidepressant medication.? family mtg with SW and pt's daughter. 03/29:? EEG read as WNL.? HCP obtained from daughter and invoked.? considering transfer to neuro unit for more detailed neuro w/u rather than continuing neuro w/u here.? after discussion with Dr. Mattson, plan made to get LP for dementia markers and other. 03/30:? Dr. Mattson added recommendations for repeat MRI as well as adding CJD testing to CSF.? LP conducted today and CJD to be sent out; will need to wait for NEG result on that prior to repeat LP for CSF to do additional studies.? no change in presentation today.? MRI deferred to tomorrow due to lack of time. 03/31:? MRI today.? no change in presentation.? level of consciousness seems stable, but mood appears to vary.? no adverse reaction to zyprexa last night.? 2.5 mg PRNs added today for agitation. 04/01:? MRI remains undone.? stably disoriented and sad.? continue current mgmt for now.? T/C reintroducing an antidepressant. 04/02:? MRI scheduled for 04/04.? stable presentation.? continue current mgmt. 04/03:? pt is apparently having difficulty coordinating hands/eyes to get medications into her mouth.? ambulating next to wall for support and following lines in linoleum on the floor.? doesn't know where her room is, wandering into others' rooms.? brain MRI completed this afternoon, not yet read. 04/04:? brain MRI unilluminating.? Dr. Mattson requested to review and opine.? similar presentation as yesterday. 04/05:? case d/w lida and chris.? jaworek to consult.? plan made to send for labs for ricketsial/tick-borne illness, inflammatory/auto-immune markers, and available serum markers suggestive of paraneoplastic syndromes.? decision was made to hold transfer to neuropscyh unit as the next step for them would be an LP.? we will plan to wait for CJD negative result and repeat LP for more likely illuminating information.? in the meantime, will DC zyprexa as providing some 5-HT stimulation and use haldol instead with some ativan in the event this is a catatonic depression.? also will add acyclovir prophylaxis in the event this is an HSV encephalitis, as it is one thing we can treat which may otherwise be devastating.? it will be impossible to make truly informed decisions until another LP is able to be done, but the cost-benefit ratio for acyclovir is large. 04/06:? large battery of labs drawn yesterday, most still pending.? CRP elevated.? acyclovir was not started yesterday; awaiting input from ID and medicine prior to initiating any further treatment.? ativan and haldol combination do not appear to have substantially modified pt's presentation. 04/07:? limited labs returned today, thus far not suggestive of auto-immune condition, certain infections diseases ruled out.? continue current mgmt.? CJD results not yet in. 04/08/23 continue treatmetn plan 04/09/23 continue treatment plan 04/10/23 Case reviewed with neurologist.? Haldol discontinued on unclear if worsening motor functioning no clear diagnosis to this point neurological versus primary psychiatric disorder presenting an unusual manner.? Hospital has been waiting to do repeat lumbar puncture secondary to initial test for prion disease with an need repeat lumbar puncture if no neurological diagnosis consider ECT?? Consider transfer to neurology unit this has been discussed with chief reservoir engineering and attending psychiatrist Dr. Matthew and with neurologist Srinivasan 04/11:? tick-borne Dz panel NEG, heavy metals NEG, inflammatory markers unremarkably elevated.? appears notably improved in terms of lability/irritability as well as cognition since DC of anti-psychotic and lowering of ativan dosing. 04/12:? continue current mgmt.? stable presentation. 04/13:? continue current mgmt.? stable.? contacted lab re CJD result status, awaiting response. 04/14:? CJD NEG.? will plan for LP early next week.? no change in presentation.? taper ativan.? discussed case with pt's daughter. 04/15 continue tx 04/16 continue tx. 04/17:? LP ordered with various CSF labs.? no change in presentation.? will add zoloft and zyprexa to regimen for presumed Dx of psychotic depression. 04/18:? LP today.? no change in presentation.? continue current mgmt.? await LP results.? if NEG, proceed as for psychotic depression.? T/C ECT. 04/19:? CSF with protein 88 (nml range 23-38).? most other results pending.? Dr. Mattson notified of result, case discussed with Dr. Trotter.? no change in mgmt pending return of more results, which should guide next steps. 04/20:? CSF infectious panel NEG.? many results remain pending.? case d/w lida.? continue current mgmt pending more info re potential autoimmune or paraneoplastic etiology. 04/21:? presentation unchanged.? seen by neuro, c renetta D/W Dr. Mattson.? see above for neuro note details.? start prednisone 20 mg daily empiric therapy for now, while remainder of CSF labs pending. 04/22: Continue current regimen and plans.? Continue one-to-one 04/23: Continue current plans and regimen 04/24:? perhaps mild improvement in spatial navigation and awareness since pred nisone start.? awaiting lab results to return.? continue current mgmt for now. 04/25:? elevated CSF protein and albumin.? all other tests either normal or pending.? continue current mgmt.? probable pt will need to be transferred to neuropsych unit for more detailed w/u. 04/26: case d/w chris trotter kareem. srinivasan recommendation is for prednisone 20 BID for 3-4 weeks and if no improvement by then transfer to neuro unit at tertiary care center. increase prednisone from 20 daily to 20 BID as of today, DC wellbutrin as not adequately indicated. otherwise continue current mgmt. Reason for continued inpatient stay Substantial Risk for: inability to function and rapid decompensation Time Spent With Patient Time: Total time managing care of this patient today __60__ minutes.
[2023-04-26 19:40] VITALS: BP 118/63; PULSE 56; RESP 16; TEMP 36.6; O2SAT 97
[2023-04-26 20:03] LABS: Glucose, Whole Blood 305 mg/dL (60-115)
[2023-04-26] MEDS: OLANZapine 5 MG TABLET PO (20:39)
[2023-04-27 07:00] VITALS: BMI 31.1
[2023-04-27 08:19] LABS: Glucose, Whole Blood 214 mg/dL (60-115)
[2023-04-27] MEDS: Atorvastatin Calcium 40 MG TABLET PO (08:34)
[2023-04-27] MEDS: Omeprazole 20 MG CAPSULE.DR PO (08:34)
[2023-04-27] MEDS: Sertraline HCL 50 MG TABLET PO (08:35)
[2023-04-27] MEDS: predniSONE 20 MG TABLET PO ×2 (08:35→20:41)
[2023-04-27] MEDS: metFORMIN HCl 500 MG TABLET PO ×2 (08:35→20:40)
[2023-04-27] MEDS: Famotidine 20 MG TABLET PO (08:35)
[2023-04-27] MEDS: buPROPion HCl XL 150 MG TAB.ER.24H PO (08:36)
[2023-04-27] MEDS: Empagliflozin 25 MG TABLET PO (08:36)
[2023-04-27 10:00] VITALS: BP 146/69; PULSE 60; RESP 18; TEMP 36.6; O2SAT 97
--- NOTE | 2023-04-27 15:57 | PC.NURSE ---
Pt was re-administered a MOCA on 04/27/2023. Pt scored a 4 out of 30, indicative of severe cognitive impairment. Provider was notified of pt score.
--- NOTE | 2023-04-27 15:59 | P.PNPSI_ITS ---
Subjective Subjective Date of Service: 04/27/23 Reason For Visit: hallucinations Interim History: no change in presentation. seen with her daughter Radha. per staff, pleasant. + meds, meals. attending groups. poor comprehension of directions. talking to wall: do you see them over there? grabbing at things on her night stand when there is nothing there. Mental Status Exam Mental Status Exam Narrative: calm, cooperative, diminutive. disheveled. general PMR. fair eye contact, speech nml rate, soft, decr prosody, decr amount. thoughts generally linear/relevant interchange; paucity of thought. affect constricted, hypo- intense, non-labile. no SI/SIBI/HI/AVH expressed. gross cognitive impairment. Diagnostics Vital Signs (24Hr): Vital Signs - 24 hr 04/26/23 19:40 04/27/23 10:00 Temperature 98 F 97.9 F Pulse Rate 56 60 Respiratory Rate 16 18 Blood Pressure 118/63 146/69 H Pulse Oximetry 97 97 Oxygen Delivery Method Room Air Room Air BMI result Body Mass Index 31.1 Labs 04/08/23 09:08 04/17/23 07:02 Labs: Laboratory Results - last 48 hr 04/18/23 04/25/23 04/26/23 11:58 20:10 08:16 POC Glucose 330 H 163 H Neuronal Nuc Ab Screen NEGATIVE 04/26/23 04/27/23 19:58 08:13 POC Glucose 305 H 214 H Neuronal Nuc Ab Screen Imaging Radiology Impressions: ITS Impressions Brain MRI 04/03/23 15:30 IMPRESSION: No acute infarct, mass lesion, intracranial hemorrhage, or evidence of hydrocephalus. Mild nonspecific T2/FLAIR hyperintensity in the cerebral white matter and danny presumably on the basis of chronic microangiopathy. Lumbar Puncture Fluoroscopy 04/18/23 12:27 IMPRESSION: Fluoroscopy-guided lumbar puncture Medications Medications Current Medications Acetaminophen (Acetaminophen 325 Mg Tablet) 650 mg PO Q6H PRN PRN Reason: Headache/Pain Mild Scale (1-3) Last Admin: 04/20/23 09:02 Dose: 650 mg Al Hydroxide/Mg Hydroxide (Magnesium Hydrox/Alum Hydrox 30 Ml Oral.Susp) 30 ml PO Q6H PRN PRN Reason: Heartburn/Nausea Atorvastatin Calcium (Atorvastatin Calcium 40 Mg Tablet) 40 mg PO DAILY BEN Last Admin: 04/27/23 08:34 Dose: 40 mg Bupropion HCl (Bupropion Hcl Xl 150 Mg Tab.Er.24h) 150 mg PO DAILY [facility] Last Admin: 04/27/23 08:36 Dose: 150 mg Empagliflozin (Empagliflozin 25 Mg Tablet) 25 mg PO DAILY [facility] Last Admin: 04/27/23 08:36 Dose: 25 mg Famotidine (Famotidine 20 Mg Tablet) 20 mg PO DAILY [facility] Last Admin: 04/27/23 08:35 Dose: 20 mg Magnesium Hydroxide (Milk Of Magnesia 30 Ml Oral.Susp) 30 ml PO DAILY PRN PRN Reason: Constipation Metformin HCl (Metformin Hcl 500 Mg Tablet) 500 mg PO BID [facility] Last Admin: 04/27/23 08:35 Dose: 500 mg Olanzapine (Olanzapine 5 Mg Tablet) 5 mg PO BEDTIME [facility] Last Admin: 04/26/23 20:39 Dose: 5 mg Omeprazole (Omeprazole 20 Mg Capsule.Dr) 20 mg PO DAILY [facility] Last Admin: 04/27/23 08:34 Dose: 20 mg Prednisone (Prednisone 20 Mg Tablet) 20 mg PO BID [facility] Last Admin: 04/27/23 08:35 Dose: 20 mg Sertraline HCl (Sertraline Hcl 50 Mg Tablet) 50 mg PO DAILY [facility] Last Admin: 04/27/23 08:35 Dose: 50 mg Trazodone HCl (Trazodone Hcl 50 Mg Tablet) 50 mg PO BEDTIME MRX1 PRN PRN Reason: Insomnia Last Admin: 04/25/23 20:05 Dose: 50 mg Allergies Allergies Allergy/AdvReac Type Severity Reaction Status Date / Time No Known Allergies Allergy Verified 03/23/23 18:13 Assessment & Plan Assessment & Plan (1) Encephalopathy: Status: Acute Code(s): G93.40 - Encephalopathy, unspecified Assessment and Plan: 57 years old woman with relatively quickly progressive neuropsychiatric co ndition manifesting with depression and cognitive dysfunction. There was also generalized bradykinesia but otherwise no tremor or cogwheeling. No definite upper motor neuron signs were noted other than cross adductor reflex. Multiple blood test have been negative. CSF CJD test was negative. MRI of scans have not reveal any significant pathology. CSF protein was 88, which was somewhat high for her age. It suggested that her primary problem was probably not just psychiatric. Psychiatric issues or probably part of a neuropsychiatric syndrome. Differential diagnosis of this would include an inflammatory but also degenerative condition. In terms of inflammatory conditions, meningoenceph alitis panel has been negative and that has ruled out most of those conditions. Autoimmune or paraneoplastic entities are still possibilities. Finally, vasculitis, specially primary [employer] vasculitis might be a consideration too. For more refined diagnosis, CSF paraneoplastic and autoimmune panels should be done but that may require further CSF removal. If all that becomes negative, brain biopsy might be a consideration. Some of this cannot be done in this institution. I recommend that case should be discuss with the tertiary care institution [facility] to see if there was any interest or place available for her to be transferred. In the meantime or if that was not a possibility, I recommend challenging her with prednisone 20 mg a day for 2-3 weeks to see if that would make any difference. (2) Depressive disorder: Status: Acute Code(s): F32.A - Depression, unspecified Plan 03/24:? R/O lewy body dementia.? hold neuroleptics for now, pending neuro consult, as if pt has LBD and receives neuroleptics, irreversible injury may be caused.? pt sees Dr. Mattson and reportedly has had imaging elsewhere.? will ask Dr. Mattson to see her ROCHELLE.? 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 03/25: Continue current regimen and plans.? Neurology consult pending. 03/26: Continue current regimen and plans.? Ordered low-dose Ativan yesterday. 03/27:? per Dr. Mattson, MRI does not demonstrate pathology, Dx of dementia is unclear; his impression was of primary psychiatric disorder and she was started on effexor XR.? EEG was recommended.? will obtain MoCA, T/C low dose of risperidone? at 3 pm and another at HS for what appears to be sundowning/sleep disturbance, if sufficient confidence is present that this is not LBD. 03/28:? MoCA 04/04.? extremely poor visuospatial/executive fxn.? does not appear delirious, general comportment would not betray such a low score.? EEG today, awaiting read.? T/C increasing dose of antidepressant medication.? family mtg with SW and pt's daughter. 03/29:? EEG read as WNL.? HCP obtained from daughter and invoked.? considering transfer to neuro unit for more detailed neuro w/u rather than continuing neuro w/u here.? after discussion with Dr. Mattson, plan made to get LP for dementia markers and other. 03/30:? Dr. Mattson added recommendations for repeat MRI as well as adding CJD testing to CSF.? LP conducted today and CJD to be sent out; will need to wait for NEG result on that prior to repeat LP for CSF to do additional studies.? no change in presentation today.? MRI deferred to tomorrow due to lack of time. 03/31:? MRI today.? no change in presentation.? level of consciousness seems stable, but mood appears to vary.? no adverse reaction to zyprexa last night.? 2.5 mg PRNs added today for agitation. 04/01:? MRI remains undone.? stably disoriented and sad.? continue current mgmt for now.? T/C reintroducing an antidepressant. 04/02:? MRI scheduled for 04/04.? stable presentation.? continue current mgmt. 04/03:? pt is apparently having difficulty coordinating hands/eyes to get medications into her mouth.? ambulating next to wall for support and following lines in linoleum on the floor.? doesn't know where her room is, wandering into others' rooms.? brain MRI completed this afternoon, not yet read. 04/04:? brain MRI unilluminating.? Dr. Mattson requested to review and opine.? similar presentation as yesterday. 04/05:? case d/w lida and chris.? [place] to consult.? plan made to send for labs for ricketsial/tick-borne illness, inflammatory/auto-immune markers, and available serum markers suggestive of paraneoplastic syndromes.? decision was made to hold transfer to neuropscyh unit as the next step for them would be an LP.? we will plan to wait for CJD negative result and repeat LP for more likely illuminating information.? in the meantime, will DC zyprexa as providing some 5-HT stimulation and use haldol instead with some ativan in the event this is a catatonic depression.? also will add acyclovir prophylaxis in the event this is an HSV encephalitis, as it is one thing we can treat which may otherwise be devastating.? it will be impossible to make truly informed decisions until another LP is able to be done, but the cost-benefit ratio for acyclovir is large. 04/06:? large battery of labs drawn yesterday, most still pending.? CRP elevated.? acyclovir was not started yesterday; awaiting input from ID and medicine prior to initiating any further treatment.? ativan and haldol combination do not appear to have substantially modified pt's presentation. 04/07:? limited labs returned today, thus far not suggestive of auto-immune condition, certain infections diseases ruled out.? continue current mgmt.? CJD results not yet in. 04/08/23 continue treatmetn plan 04/09/23 continue treatment plan 04/10/23 Case reviewed with neurologist.? Haldol discontinued on unclear if worsening motor functioning no clear diagnosis to this point neurological versus primary psychiatric disorder presenting an unusual manner.? Hospital has been waiting to do repeat lumbar puncture secondary to initial test for prion disease with an need repeat lumbar puncture if no neurological diagnosis consider ECT?? Consider transfer to neurology unit this has been discussed with chief operations officer and attending psychiatrist Dr. Matthew and with neurologist Srinivasan 04/11:? tick-borne Dz panel NEG, heavy metals NEG, inflammatory markers unremarkably elevated.? appears notably improved in terms of lability/irritability as well as cognition since DC of anti-psychotic and lowering of ativan dosing. 04/12:? continue current mgmt.? stable presentation. 04/13:? continue current mgmt.? stable.? contacted lab re CJD result status, awaiting response. 04/14:? CJD NEG.? will plan for LP early next week.? no change in presentation.? taper ativan.? discussed case with pt's daughter. 04/15 continue tx 04/16 continue tx. 04/17:? LP ordered with various CSF labs.? no change in presentation.? will add zoloft and zyprexa to regimen for presumed Dx of psychotic depression. 04/18:? LP today.? no change in presentation.? continue current mgmt.? await LP results.? if NEG, proceed as for psychotic depression.? T/C ECT. 04/19:? CSF with protein 88 (nml range 23-38).? most other results pending.? Dr. Mattson notified of result, case discussed with Dr. Hilton.? no change in mgmt pending return of more results, which should guide next steps. 04/20:? CSF infectious panel NEG.? many results remain pending.? case d/w lida.? continue current mgmt pending more info re potential autoimmune or paraneoplastic etiology. 04/21:? presentation unchanged.? seen by neuro, c ase D/W Dr. Mattson.? see above for neuro note details.? start prednisone 20 mg daily empiric therapy for now, while remainder of CSF labs pending. 04/22: Continue current regimen and plans.? Continue one-to-one 04/23: Continue current plans and regimen 04/24:? perhaps mild improvement in spatial navigation and awareness since prednisone start.? awaiting lab results to return.? continue current mgmt for now. 04/25:? elevated CSF protein and albumin.? all other tests either normal or pending.? continue current mgmt.? probable pt will need to be transferred to neuropsych unit for more detailed w/u. 04/26: case d/w chris hilton kareem. srinivasan recommendation is for prednisone 20 BID for 3-4 weeks and if no improvement by then transfer to neuro unit at tertiary care center. increase prednisone from 20 daily to 20 BID as of today, DC wellbutrin as not adequately indicated. otherwise continue current mgmt. 04/27: continue current mgmt. Reason for continued inpatient stay Substantial Risk for: inability to function Time Spent With Patient Time: Total time managing care of this patient today __25__ minutes.
[2023-04-27 20:02] LABS: Glucose, Whole Blood 319 mg/dL (60-115)
[2023-04-27 20:12] VITALS: BP 148/71; PULSE 60; RESP 16; TEMP 36.6
[2023-04-27] MEDS: OLANZapine 5 MG TABLET PO (20:40)
--- NOTE | 2023-04-28 03:03 | PC.NURSE ---
pt sitting in milieu, calm, cooperative, took all meds offered after reviewed with pt. At about 2100'layne, pt became agitated, shouting at staff, banging on window, you guys are keeping me here like a prisonor , let me go home ,security called to assist to calm pt down. pt refused her trazadone prn medication when offered. pt re-oriented and redirected to place, time and event. Dr Gale notified of pt's behaviour, Loren ordered for pt but refused. pt eventually calmed herself down but sat in milieu until about 0230 a.m before finally going to sleep. Pt continues to be 1:1.
[2023-04-28 08:31] LABS: Glucose, Whole Blood 198 mg/dL (60-115)
[2023-04-28] MEDS: predniSONE 20 MG TABLET PO ×2 (08:34→23:58)
[2023-04-28] MEDS: Omeprazole 20 MG CAPSULE.DR PO (08:35)
[2023-04-28] MEDS: Famotidine 20 MG TABLET PO (08:35)
[2023-04-28] MEDS: Sertraline HCL 50 MG TABLET PO (08:35)
[2023-04-28] MEDS: Atorvastatin Calcium 40 MG TABLET PO (08:35)
[2023-04-28] MEDS: metFORMIN HCl 500 MG TABLET PO ×2 (08:36→23:58)
[2023-04-28] MEDS: Empagliflozin 25 MG TABLET PO (08:36)
[2023-04-28] MEDS: buPROPion HCl XL 150 MG TAB.ER.24H PO (08:36)
[2023-04-28 09:32] VITALS: BP 138/68; PULSE 60; RESP 18; TEMP 36.6; O2SAT 98
--- NOTE | 2023-04-28 12:05 | HO.PSYCHPN ---
Subjective Subjective Date of Service: 04/28/23 Reason For Visit: hallucinations Interim History: pleasant, cooperative. appears better able to navigate 3-dimensional space today, letting herself out of the interview room and making her way directly back to where she had been sitting prior to interview, without delay or hesitancy. otherwise no change in cognitive status. per staff, attending groups. mid anx/dep. feeling much better. less confused. pacing. limited responses. 9 pm banging on windows in her room yelling that she is being held hostage. declined PRN zyprexa offered. agitated with similar behavior until falling asleep around 0230. Mental Status Exam Mental Status Exam Narrative: calm, cooperative, diminutive. disheveled. general PMR. fair eye contact, speech nml rate, soft, decr prosody, decr amount. thoughts generally linear/relevant interchange; paucity of thought; confabulation. affect constricted, hypo-intense, non-labile. no SI/SIBI/HI/AVH expressed. gross cognitive impairment. Diagnostics Vital Signs (24Hr): Vital Signs - 24 hr 04/27/23 20:12 04/28/23 09:32 Temperature 97.9 F 97.9 F Pulse Rate 60 60 Respiratory Rate 16 18 Blood Pressure 148/71 H 138/68 Pulse Oximetry 98 Oxygen Delivery Method Room Air Room Air BMI result Body Mass Index 31.1 Labs 04/08/23 09:08 04/17/23 07:02 Labs: Laboratory Results - last 48 hr 04/18/23 04/26/23 04/27/23 11:58 19:58 08:13 POC Glucose 305 H 214 H Neuronal Nuc Ab Screen NEGATIVE 04/27/23 04/28/23 19:53 08:27 POC Glucose 319 H 198 H Neuronal Nuc Ab Screen Imaging Radiology Impressions: ITS Impressions Brain MRI 04/03/23 15:30 IMPRESSION: No acute infarct, mass lesion, intracranial hemorrhage, or evidence of hydrocephalus. Mild nonspecific T2/FLAIR hyperintensity in the cerebral white matter and danny presumably on the basis of chronic microangiopathy. Lumbar Puncture Fluoroscopy 04/18/23 12:27 IMPRESSION: Fluoroscopy-guided lumbar puncture Medications Medications Current Medications Acetaminophen (Acetaminophen 325 Mg Tablet) 650 mg PO Q6H PRN PRN Reason: Headache/Pain Mild Scale (1-3) Last Admin: 04/20/23 09:02 Dose: 650 mg Al Hydroxide/Mg Hydroxide (Magnesium Hydrox/Alum Hydrox 30 Ml Oral.Susp) 30 ml PO Q6H PRN PRN Reason: Heartburn/Nausea Atorvastatin Calcium (Atorvastatin Calcium 40 Mg Tablet) 40 mg PO DAILY [facility] Last Admin: 04/28/23 08:35 Dose: 40 mg Empagliflozin (Empagliflozin 25 Mg Tablet) 25 mg PO DAILY [facility] Last Admin: 04/28/23 08:36 Dose: 25 mg Famotidine (Famotidine 20 Mg Tablet) 20 mg PO DAILY [facility] Last Admin: 04/28/23 08:35 Dose: 20 mg Magnesium Hydroxide (Milk Of Magnesia 30 Ml Oral.Susp) 30 ml PO DAILY PRN PRN Reason: Constipation Metformin HCl (Metformin Hcl 500 Mg Tablet) 500 mg PO BID [facility] Last Admin: 04/28/23 08:36 Dose: 500 mg Olanzapine (Olanzapine 5 Mg Tablet) 5 mg PO BEDTIME [facility] Last Admin: 04/27/23 20:40 Dose: 5 mg Omeprazole (Omeprazole 20 Mg Capsule.Dr) 20 mg PO DAILY [facility] Last Admin: 04/28/23 08:35 Dose: 20 mg Prednisone (Prednisone 20 Mg Tablet) 20 mg PO BID [facility] Last Admin: 04/28/23 08:34 Dose: 20 mg Sertraline HCl (Sertraline Hcl 50 Mg Tablet) 50 mg PO DAILY [facility] Last Admin: 04/28/23 08:35 Dose: 50 mg Trazodone HCl (Trazodone Hcl 50 Mg Tablet) 50 mg PO BEDTIME MRX1 PRN PRN Reason: Insomnia Last Admin: 04/25/23 20:05 Dose: 50 mg Allergies Allergies Allergy/AdvReac Type Severity Reaction Status Date / Time No Known Allergies Allergy Verified 03/23/23 18:13 Assessment & Plan Assessment & Plan (1) Encephalopathy: Status: Acute Code(s): G93.40 - Encephalopathy, unspecified Assessment and Plan: 57 years old woman with relatively quickly progressive neuropsychiatric condition manifesting with depression and cognitive dysfunction. There was also generalized bradykinesia but otherwise no tremor or cogwheeling. No definite upper motor neuron signs were noted other than cross adductor reflex. Multiple blood test have been negative. CSF CJD test was negative. MRI of scans have not reveal any significant pathology. CSF protein was 88, which was somewhat high for her age. It suggested that her primary problem was probably not just psychiatric. Psychiatric issues or probably part of a neuropsychiatric syndrome. Differential diagnosis of this would include an inflammatory but also degenerative condition. In terms of inflammatory conditions, meningoencephalitis panel has been negative and that has ruled out most of those conditions. Autoimmune or paraneoplastic entities are still possibilities. Finally, vasculitis, specially primary [place] vasculitis might be a consideration too. For more refined diagnosis, CSF paraneoplastic and autoimmune panels should be done but that may require further CSF removal. If all that becomes negative, brain biopsy might be a consideration. Some of this cannot be done in this institution. I recommend that case should be discuss with the [facility] a [facility] psychiatric department to see if there was any interest or place available for her to be transferred. In the meantime or if that was not a possibility, I recommend challenging her with prednisone 20 mg a day for 2-3 weeks to see if that would make any difference. (2) Depressive disorder: Status: Acute Code(s): F32.A - Depression, unspecified Plan 03/24:? R/O lewy body dementia.? hold neuroleptics for now, pending neuro consult, as if pt has LBD and receives neuroleptics, irreversible injury may be caused.? pt sees Dr. Mattson and reportedly has had imaging elsewhere.? will ask Dr. Mattson to see her ROCHELLE.? 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 03/25: Continue current regimen and plans.? Neurology consult pending. 03/26: Continue current regimen and plans.? Ordered low-dose Ativan yesterday. 03/27:? per Dr. Mattson, MRI does not demonstrate pathology, Dx of dementia is unclear; his impression was of primary psychiatric disorder and she was started on effexor XR.? EEG was recommended.? will obtain MoCA, T/C low dose of risperidone? at 3 pm and another at HS for what appears to be sundowning/sleep disturbance, if sufficient confidence is present that this is not LBD. 03/28:? MoCA 04/04.? extremely poor visuospatial/executive fxn.? does not appear delirious, general comportment would not betray such a low score.? EEG today, awaiting read.? T/C increasing dose of antidepressant medication.? family mtg with SW and pt's daughter. 03/29:? EEG read as WNL.? HCP obtained from daughter and invoked.? considering transfer to neuro unit for more detailed neuro w/u rather than continuing neuro w/u here.? after discussion with Dr. Mattson, plan made to get LP for dementia markers and other. 03/30:? Dr. Mattson added recommendations for repeat MRI as well as adding CJD testing to CSF.? LP conducted today and CJD to be sent out; will need to wait for NEG result on that prior to repeat LP for CSF to do additional studies.? no change in presentation today.? MRI deferred to tomorrow due to lack of time. 03/31:? MRI today.? no change in presentation.? level of consciousness seems stable, but mood appears to vary.? no adverse reaction to zyprexa last night.? 2.5 mg PRNs added today for agitation. 04/01:? MRI remains undone.? stably disoriented and sad.? continue current mgmt for now.? T/C reintroducing an antidepressant. 04/02:? MRI scheduled for 04/04.? stable presentation.? continue current mgmt. 04/03:? pt is apparently having difficulty coordinating hands/eyes to get medications into her mouth.? ambulating next to wall for support and following lines in linoleum on the floor.? doesn't know where her room is, wandering into others' rooms.? brain MRI completed this afternoon, not yet read. 04/04:? brain MRI unilluminating.? Dr. Mattson requested to review and opine.? similar presentation as yesterday. 04/05:? case d/w lida and chris.? [place] to consult.? plan made to send for labs for ricketsial/tick-borne illness, inflammatory/auto-immune markers, and available serum markers suggestive of paraneoplastic syndromes.? decision was made to hold transfer to neuropscyh unit as the next step for them would be an LP.? we will plan to wait for CJD negative result and repeat LP for more likely illuminating information.? in the meantime, will DC zyprexa as providing some 5-HT stimulation and use haldol instead with some ativan in the event this is a catatonic depression.? also will add acyclovir prophylaxis in the event this is an HSV encephalitis, as it is one thing we can treat which may otherwise be devastating.? it will be impossible to make truly informed decisions until another LP is able to be done, but the cost-benefit ratio for acyclovir is large. 04/06:? large battery of labs drawn yesterday, most still pending.? CRP elevated.? acyclovir was not started yesterday; awaiting input from ID and medicine prior to initiating any further treatment.? ativan and haldol combination do not appear to have substantially modified pt's presentation. 04/07:? limited labs returned today, thus far not suggestive of auto-immune condition, certain infections diseases ruled out.? continue current mgmt.? CJD results not yet in. 04/08/23 continue treatmetn plan 04/09/23 continue treatment plan 04/10/23 Case reviewed with neurologist.? Haldol discontinued on unclear if worsening motor functioning no clear diagnosis to this point neurological versus primary psychiatric disorder presenting an unusual manner.? Hospital has been waiting to do repeat lumbar puncture secondary to initial test for prion disease with an need repeat lumbar puncture if no neurological diagnosis consider ECT?? Consider transfer to neurology unit this has been discussed with materials branch chief and attending psychiatrist Dr. Matthew and with neurologist Srinivasan 04/11:? tick-borne Dz panel NEG, heavy metals NEG, inflammatory markers unremarkably elevated.? appears notably improved in terms of lability/irritability as well as cognition since DC of anti-psychotic and lowering of ativan dosing. 04/12:? continue current mgmt.? stable presentation. 04/13:? continue current mgmt.? stable.? contacted lab re CJD result status, awaiting response. 04/14:? CJD NEG.? will plan for LP early next week.? no change in presentation.? taper ativan.? discussed case with pt's daughter. 04/15 continue tx 04/16 continue tx. 04/17:? LP ordered with various CSF labs.? no change in presentation.? will add zoloft and zyprexa to regimen for presumed Dx of psychotic depression. 04/18:? LP today.? no change in presentation.? continue current mgmt.? await LP results.? if NEG, proceed as for psychotic depression.? T/C ECT. 04/19:? CSF with protein 88 (nml range 23-38).? most other results pending.? Dr. Mattson notified of result, case discussed with Dr. Hilton.? no change in mgmt pending return of more results, which should guide next steps. 04/20:? CSF infectious panel NEG.? many results remain pending.? case d/w lida.? continue current mgmt pending more info re potential autoimmune or paraneoplastic etiology. 04/21:? presentation unchanged.? seen by neuro, c ase D/W Dr. Mattson.? see above for neuro note details.? start prednisone 20 mg daily empiric therapy for now, while remainder of CSF labs pending. 04/22: Continue current regimen and plans.? Continue one-to-one 04/23: Continue current plans and regimen 04/24:? perhaps mild improvement in spatial navigation and awareness since prednisone start.? awaiting lab results to return.? continue current mgmt for now. 04/25:? elevated CSF protein and albumin.? all other tests either normal or pending.? continue current mgmt.? probable pt will need to be transferred to neuropsych unit for more detailed w/u. 04/26: case d/w chris hilton kareem. srinivasan recommendation is for prednisone 20 BID for 3-4 weeks and if no improvement by then transfer to neuro unit at tertiary care center. increase prednisone from 20 daily to 20 BID as of today, DC wellbutrin as not adequately indicated. otherwise continue current mgmt. 04/27: continue current mgmt. 04/28: DC wellbutrin as an unnecessary additional medication in situation where primary diagnosis is not likely depression. continue zoloft and zyprexa, however: zoloft for presumed depression since end of 35 year relationship 9 months ago, zyprexa for delirium/sedation at . approved for transfer to [facility] [place], no beds, awaiting open bed. Reason for continued inpatient stay Substantial Risk for: inability to function and rapid decompensation Time Spent With Patient Time: Total time managing care of this patient today _35___ minutes.
--- NOTE | 2023-04-28 19:10 | PC.NURSE ---
At 1815, became very confused, disorganized and agitated. Pt was walking around the kitchen area holding all of her clothes and papers. When RN asked if she wanted a bag, she agreed and placed belongings in a bag. Pt then became agitated and said I need to leave tonight! The ambulance is supposed to pick me up and take me to another hospital. When RN asked what hospital, pt said I don't know, not [facility], the other one. I just heard over the speakers that they're coming to pick me up. Did you cancel it? RN tried to assure pt that she was not leaving tonight. Pt had difficulty expressing her thoughts and was nonsensical at times. Pt also had difficulty using the phone and would put the bottom of the phone to her ear, she also needed assistance hanging the phone back up because she couldn't align the phone with the saloonkeeper. When RN asked pt where she was, pt said I'm at the time share and I need to get to [facility]. RN attempted to reorient patient to time and place but pt became upset and threatened to call 911. Pt then called her sister and started yelling you need to get me out of this place! They don't feed me here, they didn't even give me dinner. When RN attempted to show pt that she has a dinner tray, pt said I'm not eating that! RN tried to ask patient what she would like to eat instead and she said I'm not eating anything, I don't trust you and you're probably going to put something in it. I'm not taking any of those meds, I'm staying up all night. Pt also became agitated when she saw a peer walking the barrow with a paper bag. She followed him and said hey what are you doing with my stuff! Staff had to assure patient that those were not her belongings and redirected her back to her room to her belongings.
[2023-04-28] MEDS: OLANZapine 5 MG TABLET PO (23:58)
[2023-04-29] MEDS: traZODone HCL 50 MG TABLET PO
[2023-04-29 08:33] LABS: Glucose, Whole Blood 240 mg/dL (60-115)
[2023-04-29 08:46] VITALS: BP 122/71; PULSE 60; RESP 18; TEMP 36.6; O2SAT 98
[2023-04-29] MEDS: predniSONE 20 MG TABLET PO ×2 (08:52→21:37)
[2023-04-29] MEDS: Atorvastatin Calcium 40 MG TABLET PO (08:52)
[2023-04-29] MEDS: Empagliflozin 25 MG TABLET PO (08:52)
[2023-04-29] MEDS: Omeprazole 20 MG CAPSULE.DR PO (08:52)
[2023-04-29] MEDS: metFORMIN HCl 500 MG TABLET PO ×2 (08:52→21:37)
[2023-04-29] MEDS: Famotidine 20 MG TABLET PO (08:52)
[2023-04-29] MEDS: Sertraline HCL 50 MG TABLET PO (08:53)
[2023-04-29 08:58] LABS: Creatinine Clr Calc Pharmacy 77.4; Estimated Glomerular Filt Rate > 60
--- NOTE | 2023-04-29 16:33 | HO.PSYCHPN ---
Subjective Subjective Date of Service: 04/29/23 Reason For Visit: hallucinations Interim History: no change in presentation. per staff, agitated eves. labile, trying doors. refused meds, then later calmed and took them. slept about 0100 through 0500 only. FSBS elevated. Mental Status Exam Mental Status Exam Narrative: calm, cooperative, diminutive. disheveled. general PMR. fair eye contact, speech nml rate, soft, decr prosody, decr amount. thoughts generally linear/relevant interchange; paucity of thought; confabulation. affect constricted, hypo-intense, non-labile. no SI/SIBI/HI/AVH expressed. gross cognitive impairment. Diagnostics Vital Signs (24Hr): Vital Signs - 24 hr 04/29/23 08:46 Temperature 97.8 F Pulse Rate 60 Respiratory Rate 18 Blood Pressure 122/71 Pulse Oximetry 98 Oxygen Delivery Method Room Air BMI result Body Mass Index 31.1 Labs 04/08/23 09:08 04/29/23 08:22 Labs: Laboratory Results - last 48 hr 04/27/23 04/28/23 04/29/23 19:53 08:27 08:22 Creatinine 0.78 Estim Creat Clear Calc 77.4 Estimated GFR > 60 POC Glucose 319 H 198 H 04/29/23 08:28 Creatinine Estim Creat Clear Calc Estimated GFR POC Glucose 240 H Imaging Radiology Impressions: ITS Impressions Brain MRI 04/03/23 15:30 IMPRESSION: No acute infarct, mass lesion, intracranial hemorrhage, or evidence of hydrocephalus. Mild nonspecific T2/FLAIR hyperintensity in the cerebral white matter and danny presumably on the basis of chronic microangiopathy. Lumbar Puncture Fluoroscopy 04/18/23 12:27 IMPRESSION: Fluoroscopy-guided lumbar puncture Medications Medications Current Medications Acetaminophen (Acetaminophen 325 Mg Tablet) 650 mg PO Q6H PRN PRN Reason: Headache/Pain Mild Scale (1-3) Last Admin: 04/20/23 09:02 Dose: 650 mg Al Hydroxide/Mg Hydroxide (Magnesium Hydrox/Alum Hydrox 30 Ml Oral.Susp) 30 ml PO Q6H PRN PRN Reason: Heartburn/Nausea Atorvastatin Calcium (Atorvastatin Calcium 40 Mg Tablet) 40 mg PO DAILY [facility] Last Admin: 04/29/23 08:52 Dose: 40 mg Empagliflozin (Empagliflozin 25 Mg Tablet) 25 mg PO DAILY [facility] Last Admin: 04/29/23 08:52 Dose: 25 mg Famotidine (Famotidine 20 Mg Tablet) 20 mg PO DAILY [facility] Last Admin: 04/29/23 08:52 Dose: 20 mg Magnesium Hydroxide (Milk Of Magnesia 30 Ml Oral.Susp) 30 ml PO DAILY PRN PRN Reason: Constipation Metformin HCl (Metformin Hcl 500 Mg Tablet) 500 mg PO BID [facility] Last Admin: 04/29/23 08:52 Dose: 500 mg Olanzapine (Olanzapine 5 Mg Tablet) 5 mg PO BEDTIME BEN Last Admin: 04/28/23 23:58 Dose: 5 mg Omeprazole (Omeprazole 20 Mg Capsule.Dr) 20 mg PO DAILY [facility] Last Admin: 04/29/23 08:52 Dose: 20 mg Prednisone (Prednisone 20 Mg Tablet) 20 mg PO BID [facility] Last Admin: 04/29/23 08:52 Dose: 20 mg Sertraline HCl (Sertraline Hcl 50 Mg Tablet) 50 mg PO DAILY [facility] Last Admin: 04/29/23 08:53 Dose: 50 mg Trazodone HCl (Trazodone Hcl 50 Mg Tablet) 50 mg PO BEDTIME MRX1 PRN PRN Reason: Insomnia Last Admin: 04/29/23 00:00 Dose: 50 mg Allergies Allergies Allergy/AdvReac Type Severity Reaction Status Date / Time No Known Allergies Allergy Verified 03/23/23 18:13 Assessment & Plan Assessment & Plan (1) Encephalopathy: Status: Acute Code(s): G93.40 - Encephalopathy, unspecified Assessment and Plan: 57 years old woman with relatively quickly progressive neuropsychiatric condition manifesting with depression and cognitive dysfunction. There was also generalized bradykinesia but otherwise no tremor or cogwheeling. No definite upper motor neuron signs were noted other than cross adductor reflex. Multiple blood test have been negative. CSF CJD test was negative. MRI of scans have not reveal any significant pathology. CSF protein was 88, which was somewhat high for her age. It suggested that her primary problem was probably not just psychiatric. Psychiatric issues or probably part of a neuropsychiatric syndrome. Differential diagnosis of this would include an inflammatory but also degenerative condition. In terms of inflammatory conditions, meningoencephalitis panel has been negative and that has ruled out most of those conditions. Autoimmune or paraneoplastic entities are still possibilities. Finally, vasculitis, specially primary LEPIDOPTERIST vasculitis might be a consideration too. For more refined diagnosis, CSF paraneoplastic and autoimmune panels should be done but that may require further CSF removal. If all that becomes negative, brain biopsy might be a consideration. Some of this cannot be done in this institution. I recommend that case should be discuss with the [facility] care [facility] to see if there was any interest or place available for her to be transferred. In the meantime or if that was not a possibility, I recommend challenging her with prednisone 20 mg a day for 2-3 weeks to see if that would make any difference. (2) Depressive disorder: Status: Acute Code(s): F32.A - Depression, unspecified Plan 03/24:? R/O lewy body dementia.? hold neuroleptics for now, pending neuro consult, as if pt has LBD and receives neuroleptics, irreversible injury may be caused.? pt sees Dr. Mattson and reportedly has had imaging elsewhere.? will ask Dr. Mattson to see her ROCHELLE.? 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 03/25: Continue current regimen and plans.? Neurology consult pending. 03/26: Continue current regimen and plans.? Ordered low-dose Ativan yesterday. 03/27:? per Dr. Mattson, MRI does not demonstrate pathology, Dx of dementia is unclear; his impression was of primary psychiatric disorder and she was started on effexor XR.? EEG was recommended.? will obtain MoCA, T/C low dose of risperidone? at 3 pm and another at HS for what appears to be sundowning/sleep disturbance, if sufficient confidence is present that this is not LBD. 03/28:? MoCA 04/04.? extremely poor visuospatial/executive fxn.? does not appear delirious, general comportment would not betray such a low score.? EEG today, awaiting read.? T/C increasing dose of antidepressant medication.? family mtg with SW and pt's daughter. 03/29:? EEG read as WNL.? HCP obtained from daughter and invoked.? considering transfer to neuro unit for more detailed neuro w/u rather than continuing neuro w/u here.? after discussion with Dr. Mattson, plan made to get LP for dementia markers and other. 03/30:? Dr. Mattson added recommendations for repeat MRI as well as adding CJD testing to CSF.? LP conducted today and CJD to be sent out; will need to wait for NEG result on that prior to repeat LP for CSF to do additional studies.? no change in presentation today.? MRI deferred to tomorrow due to lack of time. 03/31:? MRI today.? no change in presentation.? level of consciousness seems stable, but mood appears to vary.? no adverse reaction to zyprexa last night.? 2.5 mg PRNs added today for agitation. 04/01:? MRI remains undone.? stably disoriented and sad.? continue current mgmt for now.? T/C reintroducing an antidepressant. 04/02:? MRI scheduled for 04/04.? stable presentation.? continue current mgmt. 04/03:? pt is apparently having difficulty coordinating hands/eyes to get medications into her mouth.? ambulating next to wall for support and following lines in linoleum on the floor.? doesn't know where her room is, wandering into others' rooms.? brain MRI completed this afternoon, not yet read. 04/04:? brain MRI unilluminating.? Dr. Mattson requested to review and opine.? similar presentation as yesterday. 04/05:? case d/w lida and chris.? williamorek to consult.? plan made to send for labs for ricketsial/tick-borne illness, inflammatory/auto-immune markers, and available serum markers suggestive of paraneoplastic syndromes.? decision was made to hold transfer to neuropscyh unit as the next step for them would be an LP.? we will plan to wait for CJD negative result and repeat LP for more likely illuminating information.? in the meantime, will DC zyprexa as providing some 5-HT stimulation and use haldol instead with some ativan in the event this is a catatonic depression.? also will add acyclovir prophylaxis in the event this is an HSV encephalitis, as it is one thing we can treat which may otherwise be devastating.? it will be impossible to make truly informed decisions until another LP is able to be done, but the cost-benefit ratio for acyclovir is large. 04/06:? large battery of labs drawn yesterday, most still pending.? CRP elevated.? acyclovir was not started yesterday; awaiting input from ID and medicine prior to initiating any further treatment.? ativan and haldol combination do not appear to have substantially modified pt's presentation. 04/07:? limited labs returned today, thus far not suggestive of auto-immune condition, certain infections diseases ruled out.? continue current mgmt.? CJD results not yet in. 04/08/23 continue treatmetn plan 04/09/23 continue treatment plan 04/10/23 Case reviewed with neurologist.? Haldol discontinued on unclear if worsening motor functioning no clear diagnosis to this point neurological versus primary psychiatric disorder presenting an unusual manner.? Hospital has been waiting to do repeat lumbar puncture secondary to initial test for prion disease with an need repeat lumbar puncture if no neurological diagnosis consider ECT?? Consider transfer to neurology unit this has been discussed with deputy editor in chief and attending psychiatrist Dr. Matthew and with neurologist Srinivasan 04/11:? tick-borne Dz panel NEG, heavy metals NEG, inflammatory markers unremarkably elevated.? appears notably improved in terms of lability/irritability as well as cognition since DC of anti-psychotic and lowering of ativan dosing. 04/12:? continue current mgmt.? stable presentation. 04/13:? continue current mgmt.? stable.? contacted lab re CJD result status, awaiting response. 04/14:? CJD NEG.? will plan for LP early next week.? no change in presentation.? taper ativan.? discussed case with pt's daughter. 04/15 continue tx 04/16 continue tx. 04/17:? LP ordered with various CSF labs.? no change in presentation.? will add zoloft and zyprexa to regimen for presumed Dx of psychotic depression. 04/18:? LP today.? no change in presentation.? continue current mgmt.? await LP results.? if NEG, proceed as for psychotic depression.? T/C ECT. 04/19:? CSF with protein 88 (nml range 23-38).? most other results pending.? Dr. Mattson notified of result, case discussed with Dr. Hilton.? no change in mgmt pending return of more results, which should guide next steps. 04/20:? CSF infectious panel NEG.? many results remain pending.? case d/w lida.? continue current mgmt pending more info re potential autoimmune or paraneoplastic etiology. 04/21:? presentation unchanged.? seen by neuro, c ase D/W Dr. Mattson.? see above for neuro note details.? start prednisone 20 mg daily empiric therapy for now, while remainder of CSF labs pending. 04/22: Continue current regimen and plans.? Continue one-to-one 04/23: Continue current plans and regimen 04/24:? perhaps mild improvement in spatial navigation and awareness since prednisone start.? awaiting lab results to return.? continue current mgmt for now. 04/25:? elevated CSF protein and albumin.? all other tests either normal or pending.? continue current mgmt.? probable pt will need to be transferred to neuropsych unit for more detailed w/u. 04/26: case d/w chris hilton kareem. srinivasan recommendation is for prednisone 20 BID for 3-4 weeks and if no improvement by then transfer to neuro unit at tertiary care center. increase prednisone from 20 daily to 20 BID as of today, DC wellbutrin as not adequately indicated. otherwise continue current mgmt. 04/27: continue current mgmt. 04/28: DC wellbutrin as an unnecessary additional medication in situation where primary diagnosis is not likely depression. continue zoloft and zyprexa, however: zoloft for presumed depression since end of 35 year relationship 9 months ago, zyprexa for delirium/sedation at . approved for [place] [facility] [place], no beds, awaiting open bed. 04/29: no change in presentation today. agitated again last night, slept only 4 hours overnight. Reason for continued inpatient stay Substantial Risk for: inability to function Time Spent With Patient Time: Total time managing care of this patient today ____ minutes.
[2023-04-29] MEDS: OLANZapine 2.5 MG TABLET PO (17:17)
[2023-04-29 21:36] VITALS: BP 142/66; PULSE 58; RESP 16; TEMP 36.3; O2SAT 98
[2023-04-29] MEDS: OLANZapine 5 MG TABLET PO (21:37)
--- NOTE | 2023-04-29 21:45 | PC.NURSE ---
POC at HS 375. Pt and staff observer reported pt recently had [employer]. Provider new home sales consultant notified, no new orders. Hospitalist consult pending.
[2023-04-29 21:53] LABS: Glucose, Whole Blood 375 mg/dL (60-115)
[2023-04-29] MEDS: Acetaminophen 325 MG TABLET 650 MG PO (23:14)
--- NOTE | 2023-04-29 23:21 | PC.NURSE ---
Jessy is noted to have become slightly agitated at approximately 2300. she was tearful and said I just don't know what to do . They said I have to wait. They said something about me being declined. I just don't know. If I could just get to my car . she was also expressing concerns about her possessions, mainly her purse and her debit card. this appeals writer confirmed that her possessions in question are in fact locked up in the belongings room. the patient was visibly relieved regarding her possessions and stated she felt reassured that we were here to take care of her.
[2023-04-30 08:55] VITALS: BP 127/61; PULSE 60; RESP 16; TEMP 36.7; O2SAT 94
[2023-04-30 09:01] LABS: Glucose, Whole Blood 201 mg/dL (60-115)
[2023-04-30] MEDS: Omeprazole 20 MG CAPSULE.DR PO (09:03)
[2023-04-30] MEDS: metFORMIN HCl 500 MG TABLET PO (09:03)
[2023-04-30] MEDS: Atorvastatin Calcium 40 MG TABLET PO (09:03)
[2023-04-30] MEDS: Sertraline HCL 50 MG TABLET PO (09:03)
[2023-04-30] MEDS: Empagliflozin 25 MG TABLET PO (09:03)
[2023-04-30] MEDS: predniSONE 20 MG TABLET PO (09:03)
[2023-04-30] MEDS: Famotidine 20 MG TABLET PO (09:03)
--- NOTE | 2023-04-30 12:52 | PM.EVENT ---
Event Note Date of Service: 04/30/23 Event Note: Patient with [id number] diabetes currently on metformin and Jardiance with consistently elevated POC is in the 200-300s. POC last night was 375, then [address] patient on sliding scale insulin and diabetic diet, will also continue metformin and Jardiance. Signing off for now. Please contact if there are any additional questions or concerns. Time Spent With Patient Time: Total time managing care of this patient today ____ minutes.
--- NOTE | 2023-04-30 14:39 | P.PNPSI_ITS ---
Subjective Subjective Date of Service: 04/30/23 Reason For Visit: hallucinations Interim History: calm, cooperative. aware she is in [place]. initially can't say what kind of a facility we are in, but on being offered [facility], she immediately selects hospital. states it is june,. after being corrected re month and date and less than 1 minute delay, asserts it is july,. gait improved, seems better able to navigate 3-D space. per s taff, FSBS last NOC 370. pleasant on days. late afternoon confused, non- sensical, talking about babies. attending groups, slept well. Mental Status Exam Mental Status Exam Narrative: calm, cooperative, diminutive. disheveled. general PMR. fair eye contact, speech nml rate, soft, decr prosody, decr amount. thoughts generally linear/relevant interchange; paucity of thought; confabulation. affect constricted, hypo-intense, non-labile. no SI/SIBI/HI/AVH expressed. gross cognitive impairment. Diagnostics Vital Signs (24Hr): Vital Signs - 24 hr 04/29/23 21:36 04/30/23 08:55 Temperature 97.4 F 98.1 F Pulse Rate 58 60 Respiratory Rate 16 16 Blood Pressure 142/66 H 127/61 Pulse Oximetry 98 94 Oxygen Delivery Method Room Air Room Air BMI result Body Mass Index 31.1 Labs 04/08/23 09:08 04/29/23 08:22 Labs: Laboratory Results - last 48 hr 04/29/23 04/29/23 04/29/23 08:22 08:28 21:27 Creatinine 0.78 Estim Creat Clear Calc 77.4 Estimated GFR > 60 POC Glucose 240 H 375 H* 04/30/23 08:56 Creatinine Estim Creat Clear Calc Estimated GFR POC Glucose 201 H Imaging Radiology Impressions: ITS Impressions Brain MRI 04/03/23 15:30 IMPRESSION: No acute infarct, mass lesion, intracranial hemorrhage, or evidence of hydrocephalus. Mild nonspecific T2/FLAIR hyperintensity in the cerebral white matter and danny presumably on the basis of chronic microangiopathy. Lumbar Puncture Fluoroscopy 04/18/23 12:27 IMPRESSION: Fluoroscopy-guided lumbar puncture Medications Medications Current Medications Acetaminophen (Acetaminophen 325 Mg Tablet) 650 mg PO Q6H PRN PRN Reason: Headache/Pain Mild Scale (1-3) Last Admin: 04/29/23 23:14 Dose: 650 mg Al Hydroxide/Mg Hydroxide (Magnesium Hydrox/Alum Hydrox 30 Ml Oral.Susp) 30 ml PO Q6H PRN PRN Reason: Heartburn/Nausea Atorvastatin Calcium (Atorvastatin Calcium 40 Mg Tablet) 40 mg PO DAILY [facility] Last Admin: 04/30/23 09:03 Dose: 40 mg Dextrose (Dextrose 50 % 25 Gm/50 Ml Syringe) 25 gm IVPUSH Q15M PRN; Protocol PRN Reason: per Hypoglycemia Standing Ord. Empagliflozin (Empagliflozin 25 Mg Tablet) 25 mg PO DAILY [facility] Last Admin: 04/30/23 09:03 Dose: 25 mg Famotidine (Famotidine 20 Mg Tablet) 20 mg PO DAILY [facility] Last Admin: 04/30/23 09:03 Dose: 20 mg Glucose (Glucose Gel 15 Gm Gel..Gram.) 15 gm PO Q15M PRN; Protocol PRN Reason: per Hypoglycemia Standing Ord. Insulin Human Lispro (Insulin Lispro 100 Unit/Ml 3 Ml Vial) 0 unit SUBCUT Q6H BEN; Protocol Magnesium Hydroxide (Milk Of Magnesia 30 Ml Oral.Susp) 30 ml PO DAILY PRN PRN Reason: Constipation Metformin HCl (Metformin Hcl 500 Mg Tablet) 500 mg PO BID [facility] Last Admin: 04/30/23 09:03 Dose: 500 mg Olanzapine (Olanzapine 5 Mg Tablet) 5 mg PO BEDTIME [facility] Last Admin: 04/29/23 21:37 Dose: 5 mg Olanzapine (Olanzapine 2.5 Mg Tablet) 2.5 mg PO Q4H PRN PRN Reason: anxiety/agitation Last Admin: 04/29/23 17:17 Dose: 2.5 mg Omeprazole (Omeprazole 20 Mg Capsule.Dr) 20 mg PO DAILY [facility] Last Admin: 04/30/23 09:03 Dose: 20 mg Prednisone (Prednisone 20 Mg Tablet) 20 mg PO BID [facility] Last Admin: 04/30/23 09:03 Dose: 20 mg Sertraline HCl (Sertraline Hcl 50 Mg Tablet) 50 mg PO DAILY [facility] Last Admin: 04/30/23 09:03 Dose: 50 mg Trazodone HCl (Trazodone Hcl 50 Mg Tablet) 50 mg PO BEDTIME MRX1 PRN PRN Reason: Insomnia Last Admin: 04/29/23 00:00 Dose: 50 mg Allergies Allergies Allergy/AdvReac Type Severity Reaction Status Date / Time No Known Allergies Allergy Verified 03/23/23 18:13 Assessment & Plan Assessment & Plan (1) Encephalopathy: Status: Acute Code(s): G93.40 - Encephalopathy, unspecified Assessment and Plan: 57 years old woman with relatively quickly progressive neuropsychiatric condition manifesting with depression and cognitive dysfunction. There was also generalized bradykinesia but otherwise no tremor or cogwheeling. No definite upper motor neuron signs were noted other than cross adductor reflex. Multiple blood test have been negative. CSF CJD test was negative. MRI of scans have not reveal any significant pathology. CSF protein was 88, which was somewhat high for her age. It suggested that her primary problem was probably not just psychiatric. Psychiatric issues or probably part of a neuropsychiatric syndrome. Differential diagnosis of this would include an inflammatory but also degenerative condition. In terms of inflammatory conditions, meningoen cephalitis panel has been negative and that has ruled out most of those conditions. Autoimmune or paraneoplastic entities are still possibilities. Finally, vasculitis, specially primary [employer] vasculitis might be a consideration too. For more refined diagnosis, CSF paraneoplastic and autoimmune panels should be done but that may require further CSF removal. If all that becomes negative, brain biopsy might be a consideration. Some of this cannot be done in this institution. I recommend that case should be discuss with the tertiary care institution [facility] psychiatric department to see if there was any interest or place available for her to be transferred. In the meantime or if that was not a possibility, I recommend challenging her with prednisone 20 mg a day for 2-3 weeks to see if that would make any difference. (2) Depressive disorder: Status: Acute Code(s): F32.A - Depression, unspecified Plan 03/24:? R/O lewy body dementia.? hold neuroleptics for now, pending neuro consult, as if pt has LBD and receives neuroleptics, irreversible injury may be caused.? pt sees Dr. Mattson and reportedly has had imaging elsewhere.? will ask Dr. Mattson to see her ROCHELLE.? 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 03/25: Continue current regimen and plans.? Neurology consult pending. 03/26: Continue current regimen and plans.? Ordered low-dose Ativan yesterday. 03/27:? per Dr. Mattson, MRI does not demonstrate pathology, Dx of dementia is unclear; his impression was of primary psychiatric disorder and she was started on effexor XR.? EEG was recommended.? will obtain MoCA, T/C low dose of risperidone? at 3 pm and another at HS for what appears to be sundowning/sleep disturbance, if sufficient confidence is present that this is not LBD. 03/28:? MoCA 04/04.? extremely poor visuospatial/executive fxn.? does not appear delirious, general comportment would not betray such a low score.? EEG today, awaiting read.? T/C increasing dose of antidepressant medication.? family mtg with SW and pt's daughter. 03/29:? EEG read as WNL.? HCP obtained from daughter and invoked.? considering transfer to neuro unit for more detailed neuro w/u rather than continuing neuro w/u here.? after discussion with Dr. Mattson, plan made to get LP for dementia markers and other. 03/30:? Dr. Mattson added recommendations for repeat MRI as well as adding CJD testing to CSF.? LP conducted today and CJD to be sent out; will need to wait for NEG result on that prior to repeat LP for CSF to do additional studies.? no change in presentation today.? MRI deferred to tomorrow due to lack of time. 03/31:? MRI today.? no change in presentation.? level of consciousness seems stable, but mood appears to vary.? no adverse reaction to zyprexa last night.? 2.5 mg PRNs added today for agitation. 04/01:? MRI remains undone.? stably disoriented and sad.? continue current mgmt for now.? T/C reintroducing an antidepressant. 04/02:? MRI scheduled for 04/04.? stable presentation.? continue current mgmt. 04/03:? pt is apparently having difficulty coordinating hands/eyes to get medications into her mouth.? ambulating next to wall for support and following l maciel in linoleum on the floor.? doesn't know where her room is, wandering into others' rooms.? brain MRI completed this afternoon, not yet read. 04/04:? brain MRI unilluminating.? Dr. Mattson requested to review and opine.? similar presentation as yesterday. 04/05:? case d/w lida and chris.? zhengk to consult.? plan made to send for labs for ricketsial/tick-borne illness, inflammatory/auto-immune markers, and available serum markers suggestive of paraneoplastic syndromes.? decision was made to hold transfer to neuropscyh unit as the next step for them would be an LP.? we will plan to wait for CJD negative result and repeat LP for more likely illuminating information.? in the meantime, will DC zyprexa as providing some 5-HT stimulation and use haldol instead with some ativan in the event this is a catatonic depression.? also will add acyclovir prophylaxis in the event this is an HSV encephalitis, as it is one thing we can treat which may otherwise be devastating.? it will be impossible to make truly informed decisions until another LP is able to be done, but the cost-benefit ratio for acyclovir is large. 04/06:? large battery of labs drawn yesterday, most still pending.? CRP elevated.? acyclovir was not started yesterday; awaiting input from ID and medicine prior to initiating any further treatment.? ativan and haldol combination do not appear to have substantially modified pt's presentation. 04/07:? limited labs returned today, thus far not suggestive of auto-immune condition, certain infections diseases ruled out.? continue current mgmt.? CJD results not yet in. 04/08/23 continue treatmetn plan 04/09/23 continue treatment plan 04/10/23 Case reviewed with neurologist.? Haldol discontinued on unclear if worsening motor functioning no clear diagnosis to this point neurological versus primary psychiatric disorder presenting an unusual manner.? Hospital has been waiting to do repeat lumbar puncture secondary to initial test for prion disease with an need repeat lumbar puncture if no neurological diagnosis consider ECT?? Consider transfer to neurology unit this has been discussed with chief chemist and attending psychiatrist Dr. Matthew and with neurologist Srinivasan 04/11:? tick-borne Dz panel NEG, heavy metals NEG, inflammatory markers unremarkably elevated.? appears notably improved in terms of lability/irritability as well as cognition since DC of anti-psychotic and lowering of ativan dosing. 04/12:? continue current mgmt.? stable presentation. 04/13:? continue current mgmt.? stable.? contacted lab re CJD result status, awaiting response. 04/14:? CJD NEG.? will plan for LP early next week.? no change in presentation.? taper ativan.? discussed case with pt's daughter. 04/15 continue tx 04/16 continue tx. 04/17:? LP ordered with various CSF labs.? no change in presentation.? will add zoloft and zyprexa to regimen for presumed Dx of psychotic depression. 04/18:? LP today.? no change in presentation.? continue current mgmt.? await LP results.? if NEG, proceed as for psychotic depression.? T/C ECT. 04/19:? CSF with protein 88 (nml range 23-38).? most other results pending.? Dr. Mattson notified of result, case discussed with Dr. Hilton.? no change in mgmt pending return of more results, which should guide next steps. 04/20:? CSF infectious panel NEG.? many results remain pending.? case d/w lida.? continue current mgmt pending more info re potential autoimmune or paraneoplastic etiology. 04/21:? presentation unchanged.? seen by neuro, c ase D/W Dr. Mattson.? see above for neuro note details.? start prednisone 20 mg daily empiric therapy for now, while remainder of CSF labs pending. 04/22: Continue current regimen and plans.? Continue one-to-one 04/23: Continue current plans and regimen 04/24:? perhaps mild improvement in spatial navigation and awareness since prednisone start.? awaiting lab results to return.? continue current mgmt for now. 04/25:? elevated CSF protein and albumin.? all other tests either normal or pending.? continue current mgmt.? probable pt will need to be transferred to neuropsych unit for more detailed w/u. 04/26: case d/w chris hilton kareem. srinivasan recommendation is for prednisone 20 BID for 3-4 weeks and if no improvement by then transfer to neuro unit at tertiary care center. increase prednisone from 20 daily to 20 BID as of today, DC wellbutrin as not adequately indicated. otherwise continue current mgmt. 04/27: continue current mgmt. 04/28: DC wellbutrin as an unnecessary additional medication in situation where primary diagnosis is not likely depression. continue zoloft and zyprexa, however: zoloft for presumed depression since end of 35 year relationship 9 months ago, zyprexa for delirium/sedation at HS. approved for transfer to [facility] neuro unit, no beds, awaiting open bed. 04/29: no change in presentation today. agitated again last night, slept only 4 hours overnight. 04/30: slept well last night, period of agitation and disorganization. started on insulin for increased FSBS 2/2 prednisone. Reason for continued inpatient stay Substantial Risk for: inability to function and rapid decompensation Time Spent With Patient Time: Total time managing care of this patient today ____ minutes.
[2023-04-30 20:12] LABS: Glucose, Whole Blood 239 mg/dL (60-115)
[2023-04-30 21:20] VITALS: BP 171/70; PULSE 57; RESP 18; TEMP 36.7; O2SAT 99
--- NOTE | 2023-05-01 02:19 | PC.NURSE ---
Received pt into care sitting in the milieu. Pt appeared calm and cooperative when approached to obtain vital signs . BP taken on the left upper arm was high, 170's systolic, this insurance writer requested to have BP re-taken again to make sure it wasn't a false reading but Pt refused. Dr Matthew notified of Pt's high BP, her refusal to have the BP retaken, as well as refusing to take all of her HS meds. This insurance writer attempted a a couple of times to administer HS medications to Pt but SHE refused on all attempts. Dr Matthew aware. Pt went to bed at midnight. pt continuous to be 1:1
[2023-05-01 08:14] LABS: Glucose, Whole Blood 148 mg/dL (60-115)
[2023-05-01] MEDS: Famotidine 20 MG TABLET PO (09:12)
[2023-05-01] MEDS: Omeprazole 20 MG CAPSULE.DR PO (09:12)
[2023-05-01] MEDS: Atorvastatin Calcium 40 MG TABLET PO (09:13)
[2023-05-01] MEDS: Empagliflozin 25 MG TABLET PO (09:13)
[2023-05-01] MEDS: metFORMIN HCl 500 MG TABLET PO ×2 (09:13→21:00)
[2023-05-01] MEDS: predniSONE 20 MG TABLET PO ×2 (09:14→21:00)
[2023-05-01] MEDS: Sertraline HCL 50 MG TABLET PO (09:14)
[2023-05-01 12:16] LABS: Glucose, Whole Blood 283 mg/dL (60-115)
[2023-05-01] MEDS: Insulin Lispro 100 UNIT/ML 3 ML VIAL SUBCUT ×2 (12:18→17:51)
--- NOTE | 2023-05-01 16:06 | HO.PSYCHPN ---
Subjective Subjective Date of Service: 05/01/23 Reason For Visit: hallucinations Interim History: no change in presentation, fundamentally. per staff, no change in presentation. Mental Status Exam Mental Status Exam Narrative: calm, cooperative, diminutive. disheveled. general PMR. fair eye contact, speech nml rate, soft, decr prosody, decr amount. thoughts generally linear/relevant interchange; paucity of thought; confabulation. affect constricted, hypo-intense, non-labile. no SI/SIBI/HI/AVH expressed. gross cognitive impairment. Diagnostics Vital Signs (24Hr): Vital Signs - 24 hr 04/30/23 21:20 Temperature 98.1 F Pulse Rate 57 Respiratory Rate 18 Blood Pressure 171/70 H Pulse Oximetry 99 Oxygen Delivery Method Room Air BMI result Body Mass Index 31.1 Labs 04/08/23 09:08 04/29/23 08:22 Labs: Laboratory Results - last 48 hr 04/29/23 04/30/23 04/30/23 21:27 08:56 19:49 POC Glucose 375 H* 201 H 239 H 05/01/23 05/01/23 08:09 12:08 POC Glucose 148 H 283 H Imaging Radiology Impressions: ITS Impressions Brain MRI 04/03/23 15:30 IMPRESSION: No acute infarct, mass lesion, intracranial hemorrhage, or evidence of hydrocephalus. Mild nonspecific T2/FLAIR hyperintensity in the cerebral white matter and danny presumably on the basis of chronic microangiopathy. Lumbar Puncture Fluoroscopy 04/18/23 12:27 IMPRESSION: Fluoroscopy-guided lumbar puncture Medications Medications Current Medications Acetaminophen (Acetaminophen 325 Mg Tablet) 650 mg PO Q6H PRN PRN Reason: Headache/Pain Mild Scale (1-3) Last Admin: 04/29/23 23:14 Dose: 650 mg Al Hydroxide/Mg Hydroxide (Magnesium Hydrox/Alum Hydrox 30 Ml Oral.Susp) 30 ml PO Q6H PRN PRN Reason: Heartburn/Nausea Atorvastatin Calcium (Atorvastatin Calcium 40 Mg Tablet) 40 mg PO DAILY [facility] Last Admin: 05/01/23 09:13 Dose: 40 mg Dextrose (Dextrose 50 % 25 Gm/50 Ml Syringe) 25 gm IVPUSH Q15M PRN; Protocol PRN Reason: per Hypoglycemia Standing Ord. Empagliflozin (Empagliflozin 25 Mg Tablet) 25 mg PO DAILY [facility] Last Admin: 05/01/23 09:13 Dose: 25 mg Famotidine (Famotidine 20 Mg Tablet) 20 mg PO DAILY [facility] Last Admin: 05/01/23 09:12 Dose: 20 mg Glucose (Glucose Gel 15 Gm Gel..Gram.) 15 gm PO Q15M PRN; Protocol PRN Reason: per Hypoglycemia Standing Ord. Insulin Human Lispro (Insulin Lispro 100 Unit/Ml 3 Ml Vial) 0 unit SUBCUT QIDACHS [facility]; Protocol Last Admin: 05/01/23 12:18 Dose: 6 unit Magnesium Hydroxide (Milk Of Magnesia 30 Ml Oral.Susp) 30 ml PO DAILY PRN PRN Reason: Constipation Metformin HCl (Metformin Hcl 500 Mg Tablet) 500 mg PO BID [facility] Last Admin: 05/01/23 09:13 Dose: 500 mg Olanzapine (Olanzapine 5 Mg Tablet) 5 mg PO BEDTIME [facility] Last Admin: 04/30/23 22:56 Dose: Not Given Olanzapine (Olanzapine 2.5 Mg Tablet) 2.5 mg PO Q4H PRN PRN Reason: anxiety/agitation Last Admin: 04/29/23 17:17 Dose: 2.5 mg Omeprazole (Omeprazole 20 Mg Capsule.Dr) 20 mg PO DAILY [facility] Last Admin: 05/01/23 09:12 Dose: 20 mg Prednisone (Prednisone 20 Mg Tablet) 20 mg PO BID [facility] Last Admin: 05/01/23 09:14 Dose: 20 mg Sertraline HCl (Sertraline Hcl 50 Mg Tablet) 50 mg PO DAILY [facility] Last Admin: 05/01/23 09:14 Dose: 50 mg Trazodone HCl (Trazodone Hcl 50 Mg Tablet) 50 mg PO BEDTIME MRX1 PRN PRN Reason: Insomnia Last Admin: 04/29/23 00:00 Dose: 50 mg Allergies Allergies Allergy/AdvReac Type Severity Reaction Status Date / Time No Known Allergies Allergy Verified 03/23/23 18:13 Assessment & Plan Assessment & Plan (1) Encephalopathy: Status: Acute Code(s): G93.40 - Encephalopathy, unspecified Assessment and Plan: 57 years old woman with relatively quickly progressive neuropsychiatric condition manifesting with depression and cognitive dysfunction. There was also generalized bradykinesia but otherwise no tremor or cogwheeling. No definite upper motor neuron signs were noted other than cross adductor reflex. Multiple blood test have been negative. CSF CJD test was negative. MRI of scans have not reveal any significant pathology. CSF protein was 88, which was somewhat high for her age. It suggested that her primary problem was probably not just psychiatric. Psychiatric issues or probably part of a neuropsychiatric syndrome. Differential diagnosis of this would include an inflammatory but also degenerative condition. In terms of inflammatory conditions, meningoencephalitis panel has been negative and that has ruled out most of those conditions. Autoimmune or paraneoplastic entities are still possibilities. 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 For more refined diagnosis, CSF paraneoplastic and autoimmune panels should be done but that may require further CSF removal. If all that becomes negative, brain biopsy might be a consideration. Some of this cannot be done in this institution. I recommend that case should be discuss with the tertiary care institution a [facility] to see if there was any interest or place available for her to be transferred. In the meantime or if that was not a possibility, I recommend challenging her with prednisone 20 mg a day for 2-3 weeks to see if that would make any difference. (2) Depressive disorder: Status: Acute Code(s): F32.A - Depression, unspecified Plan 03/24:? R/O lewy body dementia.? hold neuroleptics for now, pending neuro consult, as if pt has LBD and receives neuroleptics, irreversible injury may be caused.? pt sees Dr. Mattson and reportedly has had imaging elsewhere.? will ask Dr. Mattson to see her ROCHELLE.? 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 03/25: Continue current regimen and plans.? Neurology consult pending. 03/26: Continue current regimen and plans.? Ordered low-dose Ativan yesterday. 03/27:? per Dr. Mattson, MRI does not demonstrate pathology, Dx of dementia is unclear; his impression was of primary psychiatric disorder and she was started on effexor XR.? EEG was recommended.? will obtain MoCA, T/C low dose of risperidone? at 3 pm and another at HS for what appears to be sundowning/sleep disturbance, if sufficient confidence is present that this is not LBD. 03/28:? MoCA 04/04.? extremely poor visuospatial/executive fxn.? does not appear delirious, general comportment would not betray such a low score.? EEG today, awaiting read.? T/C increasing dose of antidepressant medication.? family mtg with SW and pt's daughter. 03/29:? EEG read as WNL.? HCP obtained from daughter and invoked.? considering transfer to neuro unit for more detailed neuro w/u rather than continuing neuro w/u here.? after discussion with Dr. Mattson, plan made to get LP for dementia markers and other. 03/30:? Dr. Mattson added recommendations for repeat MRI as well as adding CJD testing to CSF.? LP conducted today and CJD to be sent out; will need to wait for NEG result on that prior to repeat LP for CSF to do additional studies.? no change in presentation today.? MRI deferred to tomorrow due to lack of time. 03/31:? MRI today.? no change in presentation.? level of consciousness seems stable, but mood appears to vary.? no adverse reaction to zyprexa last night.? 2.5 mg PRNs added today for agitation. 04/01:? MRI remains undone.? stably disoriented and sad.? continue current mgmt for now.? T/C reintroducing an antidepressant. 04/02:? MRI scheduled for 04/04.? stable presentation.? continue current mgmt. 04/03:? pt is apparently having difficulty coordinating hands/eyes to get medications into her mouth.? ambulating next to wall for support and following lines in linoleum on the floor.? doesn't know where her room is, wandering into others' rooms.? brain MRI completed this afternoon, not yet read. 04/04:? brain MRI unilluminating.? Dr. Mattson requested to review and opine.? similar presentation as yesterday. 04/05:? case d/w lida and chris.? [place] to consult.? plan made to send for labs for ricketsial/tick-borne illness, inflammatory/auto-immune markers, and available serum markers suggestive of paraneoplastic syndromes.? decision was made to hold transfer to neuropscyh unit as the next step for them would be an LP.? we will plan to wait for CJD negative result and repeat LP for more likely illuminating information.? in the meantime, will DC zyprexa as providing some 5-HT stimulation and use haldol instead with some ativan in the event this is a catatonic depression.? also will add acyclovir prophylaxis in the event this is an HSV encephalitis, as it is one thing we can treat which may otherwise be devastating.? it will be impossible to make truly informed decisions until another LP is able to be done, but the cost-benefit ratio for acyclovir is large. 04/06:? large battery of labs drawn yesterday, most still pending.? CRP elevated.? acyclovir was not started yesterday; awaiting input from ID and medicine prior to initiating any further treatment.? ativan and haldol combination do not appear to have substantially modified pt's presentation. 04/07:? limited labs returned today, thus far not suggestive of auto-immune condition, certain infections diseases ruled out.? continue current mgmt.? CJD results not yet in. 04/08/23 continue treatmetn plan 04/09/23 continue treatment plan 04/10/23 Case reviewed with neurologist.? Haldol discontinued on unclear if worsening motor functioning no clear diagnosis to this point neurological versus primary psychiatric disorder presenting an unusual manner.? Hospital has been waiting to do repeat lumbar puncture secondary to initial test for prion disease with an need repeat lumbar puncture if no neurological diagnosis consider ECT?? Consider transfer to neurology unit this has been discussed with [facility] plans intelligence officer chief and attending psychiatrist Dr. Matthew and with neurologist Srinivasan 04/11:? tick-borne Dz panel NEG, heavy metals NEG, inflammatory markers unremarkably elevated.? appears notably improved in terms of lability/irritability as well as cognition since DC of anti-psychotic and lowering of ativan dosing. 04/12:? continue current mgmt.? stable presentation. 04/13:? continue current mgmt.? stable.? contacted lab re CJD result status, awaiting response. 04/14:? CJD NEG.? will plan for LP early next week.? no change in presentation.? taper ativan.? discussed case with pt's daughter. 04/15 continue tx 04/16 continue tx. 04/17:? LP ordered with various CSF labs.? no change in presentation.? will add zoloft and zyprexa to regimen for presumed Dx of psychotic depression. 04/18:? LP today.? no change in presentation.? continue current mgmt.? await LP results.? if NEG, proceed as for psychotic depression.? T/C ECT. 04/19:? CSF with protein 88 (nml range 23-38).? most other results pending.? Dr. Mattson notified of result, case discussed with Dr. Hilton.? no change in mgmt pending return of more results, which should guide next steps. 04/20:? CSF infectious panel NEG.? many results remain pending.? case d/w lida.? continue current mgmt pending more info re potential autoimmune or paraneoplastic etiology. 04/21:? presentation unchanged.? seen by neuro, c ase D/W Dr. Mattson.? see above for neuro note details.? start prednisone 20 mg daily empiric therapy for now, while remainder of CSF labs pending. 04/22: Continue current regimen and plans.? Continue one-to-one 04/23: Continue current plans and regimen 04/24:? perhaps mild improvement in spatial navigation and awareness since prednisone start.? awaiting lab results to return.? continue current mgmt for now. 04/25:? elevated CSF protein and albumin.? all other tests either normal or pending.? continue current mgmt.? probable pt will need to be transferred to neuropsych unit for more detailed w/u. 04/26: case d/w chris hilton kareem. srinivasan recommendation is for prednisone 20 BID for 3-4 weeks and if no improvement by then transfer to neuro unit at tertiary care center. increase prednisone from 20 daily to 20 BID as of today, DC wellbutrin as not adequately indicated. otherwise continue current mgmt. 04/27: continue current mgmt. 04/28: DC wellbutrin as an unnecessary additional medication in situation where primary diagnosis is not likely depression. continue zoloft and zyprexa, however: zoloft for presumed depression since end of 35 year relationship 9 months ago, zyprexa for delirium/sedation at . approved for transfer to [facility] neuro unit, no beds, awaiting open bed. 04/29: no change in presentation today. agitated again last night, slept only 4 hours overnight. 04/30: slept well last night, period of agitation and disorganization. started on insulin for increased FSBS 2/2 prednisone. 05/01: stable presentation, no change in mgmt. case D/W [facility], who has retracted their statement of acceptance for transfer. Reason for continued inpatient stay Substantial Risk for: inability to function Time Spent With Patient Time: Total time managing care of this patient today _35___ minutes.
[2023-05-01 17:31] LABS: Glucose, Whole Blood 218 mg/dL (60-115)
[2023-05-01] MEDS: traZODone HCL 50 MG TABLET PO (19:55)
[2023-05-01] MEDS: OLANZapine 5 MG TABLET PO (21:00)
[2023-05-01 22:00] VITALS: BP 135/84; PULSE 79; RESP 18; TEMP 36.6; O2SAT 97
[2023-05-02 08:03] LABS: Glucose, Whole Blood 321 mg/dL (60-115)
[2023-05-02] MEDS: Sertraline HCL 50 MG TABLET PO (08:22)
[2023-05-02] MEDS: Famotidine 20 MG TABLET PO (08:22)
[2023-05-02] MEDS: Empagliflozin 25 MG TABLET PO (08:22)
[2023-05-02] MEDS: Atorvastatin Calcium 40 MG TABLET PO (08:22)
[2023-05-02] MEDS: metFORMIN HCl 500 MG TABLET PO ×2 (08:22→22:06)
[2023-05-02] MEDS: Omeprazole 20 MG CAPSULE.DR PO (08:22)
[2023-05-02] MEDS: predniSONE 20 MG TABLET PO ×2 (08:22→22:06)
[2023-05-02] MEDS: Insulin Lispro 100 UNIT/ML 3 ML VIAL SUBCUT ×3 (08:22→17:50)
[2023-05-02 09:01] VITALS: BP 135/63; PULSE 61; RESP 18; TEMP 36.7; O2SAT 97
[2023-05-02 12:08] LABS: Glucose, Whole Blood 216 mg/dL (60-115)
--- NOTE | 2023-05-02 14:55 | P.PNPSI_ITS ---
Subjective Subjective Date of Service: 05/02/23 Reason For Visit: hallucinations Interim History: calm, cooperative. stable presentation. per staff, pleasant, quiet, worried, confused. told staff last evening around 7 that she needs to get to the hospital where her mother will be waiting for her.... remains on 1:1 for wandering. Mental Status Exam Mental Status Exam Narrative: calm, cooperative, diminutive. disheveled. general PMR. fair eye contact, speech nml rate, soft, decr prosody, decr amount. thoughts generally linear/relevant interchange; paucity of thought; confabulation. affect constricted, hypo-intense, non-labile. no SI/SIBI/HI/AVH expressed. gross cognitive impairment. Diagnostics Vital Signs (24Hr): Vital Signs - 24 hr 05/01/23 22:00 05/02/23 09:01 Temperature 97.8 F 98.1 F Pulse Rate 79 61 Respiratory Rate 18 18 Blood Pressure 135/84 135/63 Pulse Oximetry 97 97 Oxygen Delivery Method Room Air Room Air BMI result Body Mass Index 31.1 Labs 04/08/23 09:08 04/29/23 08:22 Labs: Laboratory Results - last 48 hr 04/30/23 05/01/23 05/01/23 19:49 08:09 12:08 POC Glucose 239 H 148 H 283 H 05/01/23 05/02/23 05/02/23 17:27 07:59 12:04 POC Glucose 218 H 321 H 216 H Imaging Radiology Impressions: ITS Impressions Brain MRI 04/03/23 15:30 IMPRESSION: No acute infarct, mass lesion, intracranial hemorrhage, or evidence of hydrocephalus. Mild nonspecific T2/FLAIR hyperintensity in the cerebral white matter and danny presumably on the basis of chronic microangiopathy. Lumbar Puncture Fluoroscopy 04/18/23 12:27 IMPRESSION: Fluoroscopy-guided lumbar puncture Medications Medications Current Medications Acetaminophen (Acetaminophen 325 Mg Tablet) 650 mg PO Q6H PRN PRN Reason: Headache/Pain Mild Scale (1-3) Last Admin: 04/29/23 23:14 Dose: 650 mg Al Hydroxide/Mg Hydroxide (Magnesium Hydrox/Alum Hydrox 30 Ml Oral.Susp) 30 ml PO Q6H PRN PRN Reason: Heartburn/Nausea Atorvastatin Calcium (Atorvastatin Calcium 40 Mg Tablet) 40 mg PO DAILY BEN Last Admin: 05/02/23 08:22 Dose: 40 mg Dextrose (Dextrose 50 % 25 Gm/50 Ml Syringe) 25 gm IVPUSH Q15M PRN; Protocol PRN Reason: per Hypoglycemia Standing Ord. Empagliflozin (Empagliflozin 25 Mg Tablet) 25 mg PO DAILY [facility] Last Admin: 05/02/23 08:22 Dose: 25 mg Famotidine (Famotidine 20 Mg Tablet) 20 mg PO DAILY [facility] Last Admin: 05/02/23 08:22 Dose: 20 mg Glucose (Glucose Gel 15 Gm Gel..Gram.) 15 gm PO Q15M PRN; Protocol PRN Reason: per Hypoglycemia Standing Ord. Insulin Human Lispro (Insulin Lispro 100 Unit/Ml 3 Ml Vial) 0 unit SUBCUT QIDACHS [facility]; Protocol Last Admin: 05/02/23 13:23 Dose: 4 unit Magnesium Hydroxide (Milk Of Magnesia 30 Ml Oral.Susp) 30 ml PO DAILY PRN PRN Reason: Constipation Metformin HCl (Metformin Hcl 500 Mg Tablet) 500 mg PO BID [facility] Last Admin: 05/02/23 08:22 Dose: 500 mg Olanzapine (Olanzapine 5 Mg Tablet) 5 mg PO BEDTIME [facility] Last Admin: 05/01/23 21:00 Dose: 5 mg Olanzapine (Olanzapine 2.5 Mg Tablet) 2.5 mg PO Q4H PRN PRN Reason: anxiety/agitation Last Admin: 04/29/23 17:17 Dose: 2.5 mg Omeprazole (Omeprazole 20 Mg Capsule.Dr) 20 mg PO DAILY [facility] Last Admin: 05/02/23 08:22 Dose: 20 mg Prednisone (Prednisone 20 Mg Tablet) 20 mg PO BID [facility] Last Admin: 05/02/23 08:22 Dose: 20 mg Sertraline HCl (Sertraline Hcl 50 Mg Tablet) 50 mg PO DAILY [facility] Last Admin: 05/02/23 08:22 Dose: 50 mg Trazodone HCl (Trazodone Hcl 50 Mg Tablet) 50 mg PO BEDTIME MRX1 PRN PRN Reason: Insomnia Last Admin: 05/01/23 19:55 Dose: 50 mg Allergies Allergies Allergy/AdvReac Type Severity Reaction Status Date / Time No Known Allergies Allergy Verified 03/23/23 18:13 Assessment & Plan Assessment & Plan (1) Encephalopathy: Status: Acute Code(s): G93.40 - Encephalopathy, unspecified Assessment and Plan: 57 years old woman with relatively quickly progressive neuropsychiatric condition manifesting with depression and cognitive dysfunction. There was also generalized bradykinesia but otherwise no tremor or cogwheeling. No definite upper motor neuron signs were noted other than cross adductor reflex. Multiple blood test have been negative. CSF CJD test was negative. MRI of scans have not reveal any significant pathology. CSF protein was 88, which was somewhat high for her age. It suggested that her primary problem was probably not just psychiatric. Psychiatric issues or probably part of a neuropsychiatric syndrome. Differential diagnosis of this would include an inflammatory but also degenerative condition. In terms of inflammatory conditions, meningoencephalitis panel has been negative and that has ruled out most of those conditions. Autoimmune or paraneoplastic entities are still possibilities. Finally, vasculitis, specially primary [employer] vasculitis might be a consideration t oo. For more refined diagnosis, CSF paraneoplastic and autoimmune panels should be done but that may require further CSF removal. If all that becomes negative, brain biopsy might be a consideration. Some of this cannot be done in this institution. I recommend that case should be discuss with the tertiary care institution [facility] psychiatric department to see if there was any interest or place available for her to be transferred. In the meantime or if that was not a possibility, I recommend challenging her with prednisone 20 mg a day for 2-3 weeks to see if that would make any difference. (2) Depressive disorder: Status: Acute Code(s): F32.A - Depression, unspecified Plan 03/24:? R/O lewy body dementia.? hold neuroleptics for now, pending neuro consult, as if pt has LBD and receives neuroleptics, irreversible injury may be caused.? pt sees Dr. Mattson and reportedly has had imaging elsewhere.? will ask Dr. Mattson to see her ROCHELLE.? 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 03/25: Continue current regimen and plans.? Neurology consult pending. 03/26: Continue current regimen and plans.? Ordered low-dose Ativan yesterday. 03/27:? per Dr. Mattson, MRI does not demonstrate pathology, Dx of dementia is unclear; his impression was of primary psychiatric disorder and she was started on effexor XR.? EEG was recommended.? will obtain MoCA, T/C low dose of risperidone? at 3 pm and another at [facility] for what appears to be sundowning/sleep disturbance, if sufficient confidence is present that this is not LBD. 03/28:? MoCA 04/04.? extremely poor visuospatial/executive fxn.? does not appear delirious, general comportment would not betray such a low score.? EEG today, awaiting read.? T/C increasing dose of antidepressant medication.? family mtg with SW and pt's daughter. 03/29:? EEG read as WNL.? HCP obtained from daughter and invoked.? considering transfer to neuro unit for more detailed neuro w/u rather than continuing neuro w/u here.? after discussion with Dr. Mattson, plan made to get LP for dementia markers and other. 03/30:? Dr. Mattson added recommendations for repeat MRI as well as adding CJD testing to CSF.? LP conducted today and CJD to be sent out; will need to wait for NEG result on that prior to repeat LP for CSF to do additional studies.? no change in presentation today.? MRI deferred to tomorrow due to lack of time. 03/31:? MRI today.? no change in presentation.? level of consciousness seems sta ble, but mood appears to vary.? no adverse reaction to zyprexa last night.? 2.5 mg PRNs added today for agitation. 04/01:? MRI remains undone.? stably disoriented and sad.? continue current mgmt for now.? T/C reintroducing an antidepressant. 04/02:? MRI scheduled for 04/04.? stable presentation.? continue current mgmt. 04/03:? pt is apparently having difficulty coordinating hands/eyes to get medications into her mouth.? ambulating next to wall for support and following lines in linoleum on the floor.? doesn't know where her room is, wandering into others' rooms.? brain MRI completed this afternoon, not yet read. 04/04:? brain MRI unilluminating.? Dr. Mattson requested to review and opine.? similar presentation as yesterday. 04/05:? case d/w lida and chris.? [place] to consult.? plan made to send for labs for ricketsial/tick-borne illness, inflammatory/auto-immune markers, and available serum markers suggestive of paraneoplastic syndromes.? decision was made to hold transfer to neuropscyh unit as the next step for them would be an LP.? we will plan to wait for CJD negative result and repeat LP for more likely illuminating information.? in the meantime, will DC zyprexa as providing some 5-HT stimulation and use haldol instead with some ativan in the event this is a catatonic depression.? also will add acyclovir prophylaxis in the event this is an HSV encephalitis, as it is one thing we can treat which may otherwise be devastating.? it will be impossible to make truly informed decisions until another LP is able to be done, but the cost-benefit ratio for acyclovir is large. 04/06:? large battery of labs drawn yesterday, most still pending.? CRP elevated.? acyclovir was not started yesterday; awaiting input from ID and medicine prior to initiating any further treatment.? ativan and haldol combination do not appear to have substantially modified pt's presentation. 04/07:? limited labs returned today, thus far not suggestive of auto-immune condition, certain infections diseases ruled out.? continue current mgmt.? CJD results not yet in. 04/08/23 continue treatmetn plan 04/09/23 continue treatment plan 04/10/23 Case reviewed with neurologist.? Haldol discontinued on unclear if worsening motor functioning no clear diagnosis to this point neurological versus primary psychiatric disorder presenting an unusual manner.? Hospital has been waiting to do repeat lumbar puncture secondary to initial test for prion disease with an need repeat lumbar puncture if no neurological diagnosis consider ECT?? Consider transfer to neurology unit this has been discussed with president and chief commercial officer and attending psychiatrist Dr. Matthew and with neurologist Srinivasan 04/11:? tick-borne Dz panel NEG, heavy metals NEG, inflammatory markers unremarkably elevated.? appears notably improved in terms of lability/irritability as well as cognition since DC of anti-psychotic and lowering of ativan dosing. 04/12:? continue current mgmt.? stable presentation. 04/13:? continue current mgmt.? stable.? contacted lab re CJD result status, awaiting response. 04/14:? CJD NEG.? will plan for LP early next week.? no change in presentation.? taper ativan.? discussed case with pt's daughter. 04/15 continue tx 04/16 continue tx. 04/17:? LP ordered with various CSF labs.? no change in presentation.? will add zoloft and zyprexa to regimen for presumed Dx of psychotic depression. 04/18:? LP today.? no change in presentation.? continue current mgmt.? await LP results.? if NEG, proceed as for psychotic depression.? T/C ECT. 04/19:? CSF with protein 88 (nml range 23-38).? most other results pending.? Dr. Mattson notified of result, case discussed with Dr. Hilton.? no change in mgmt pending return of more results, which should guide next steps. 04/20:? CSF infectious panel NEG.? many results remain pending.? case d/w lida.? continue current mgmt pending more info re potential autoimmune or paraneoplastic etiology. 04/21:? presentation unchanged.? seen by neuro, c ase D/W Dr. Mattson.? see above for neuro note details.? start prednisone 20 mg daily empiric therapy for now, while remainder of CSF labs pending. 04/22: Continue current regimen and plans.? Continue one-to-one 04/23: Continue current plans and regimen 04/24:? perhaps mild improvement in spatial navigation and awareness since prednisone start.? awaiting lab results to return.? continue current mgmt for now. 04/25:? elevated CSF protein and albumin.? all other tests either normal or pending.? continue current mgmt.? probable pt will need to be transferred to neuropsych unit for more detailed w/u. 04/26: case d/w chris hilton kareem. srinivasan recommendation is for prednisone 20 BID for 3-4 weeks and if no improvement by then transfer to neuro unit at tertiary care center. increase prednisone from 20 daily to 20 BID as of today, DC wellbutrin as not adequately indicated. otherwise continue current mgmt. 04/27: continue current mgmt. 04/28: DC wellbutrin as an unnecessary additional medication in situation where primary diagnosis is not likely depression. continue zoloft and zyprexa, however: zoloft for presumed depression since end of 35 year relationship 9 months ago, zyprexa for delirium/sedation at [facility]. approved for transfer to [facility] neuro unit, no beds, awaiting open bed. 04/29: no change in presentation today. agitated again last night, slept only 4 hours overnight. 04/30: slept well last night, period of agitation and disorganization. started on insulin for increased FSBS 2/2 prednisone. 05/01: stable presentation, no change in mgmt. case D/W [facility], who has retracted their statement of acceptance for transfer. 05/02: stable presentation. remains on 1:1 for wandering. case referral to IOL in process. continue steroids for now. Reason for continued inpatient stay Substantial Risk for: inability to function and rapid decompensation Time Spent With Patient Time: Total time managing care of this patient today __35__ minutes.
[2023-05-02 17:38] LABS: Glucose, Whole Blood 279 mg/dL (60-115)
[2023-05-02] MEDS: OLANZapine 5 MG TABLET PO (22:06)
[2023-05-02] MEDS: traZODone HCL 50 MG TABLET PO (22:06)
[2023-05-02 22:11] VITALS: BP 169/81; PULSE 64; TEMP 36.7; O2SAT 97
[2023-05-03 08:05] VITALS: BP 106/60; PULSE 64; RESP 18; TEMP 36.6; O2SAT 97
[2023-05-03 08:31] LABS: Glucose, Whole Blood 154 mg/dL (60-115)
[2023-05-03] MEDS: Atorvastatin Calcium 40 MG TABLET PO (08:45)
[2023-05-03] MEDS: predniSONE 20 MG TABLET PO ×2 (08:45→21:35)
[2023-05-03] MEDS: Sertraline HCL 50 MG TABLET PO (08:45)
[2023-05-03] MEDS: metFORMIN HCl 500 MG TABLET PO ×2 (08:45→21:35)
[2023-05-03] MEDS: Famotidine 20 MG TABLET PO (08:46)
[2023-05-03] MEDS: Empagliflozin 25 MG TABLET PO (08:46)
[2023-05-03] MEDS: Omeprazole 20 MG CAPSULE.DR PO (08:46)
[2023-05-03] MEDS: Insulin Lispro 100 UNIT/ML 3 ML VIAL SUBCUT ×4 (08:49→21:44)
[2023-05-03 12:09] LABS: Glucose, Whole Blood 340 mg/dL (60-115)
--- NOTE | 2023-05-03 15:25 | P.PNPSI_ITS ---
Subjective Subjective Date of Service: 05/03/23 Reason For Visit: hallucinations Interim History: no change in presentation. per staff, dep 2 anx 2. in bed a lot of yesterday. crying at table eves. disoriented. slept well overnight. Mental Status Exam Mental Status Exam Narrative: calm, cooperative, diminutive. disheveled. general PMR. fair eye contact, speech nml rate, soft, decr prosody, decr amount. thoughts generally linear/relevant interchange; paucity of thought; confabulation. affect constricted, hypo-intense, non-labile. no SI/SIBI/HI/AVH expressed. gross cognitive impairment. Diagnostics Vital Signs (24Hr): Vital Signs - 24 hr 05/02/23 22:11 05/03/23 08:05 Temperature 98.1 F 97.9 F Pulse Rate 64 64 Respiratory Rate 18 Blood Pressure 169/81 H 106/60 Pulse Oximetry 97 97 Oxygen Delivery Method Room Air Room Air BMI result Body Mass Index 31.1 Labs 04/08/23 09:08 04/29/23 08:22 Labs: Laboratory Results - last 48 hr 05/01/23 05/02/23 05/02/23 17:27 07:59 12:04 POC Glucose 218 H 321 H 216 H 05/02/23 05/03/23 05/03/23 17:34 08:27 12:03 POC Glucose 279 H 154 H 340 H Imaging Radiology Impressions: ITS Impressions Brain MRI 04/03/23 15:30 IMPRESSION: No acute infarct, mass lesion, intracranial hemorrhage, or evidence of hydrocephalus. Mild nonspecific T2/FLAIR hyperintensity in the cerebral white matter and danny presumably on the basis of chronic microangiopathy. Medications Medications Current Medications Acetaminophen (Acetaminophen 325 Mg Tablet) 650 mg PO Q6H PRN PRN Reason: Headache/Pain Mild Scale (1-3) Last Admin: 04/29/23 23:14 Dose: 650 mg Al Hydroxide/Mg Hydroxide (Magnesium Hydrox/Alum Hydrox 30 Ml Oral.Susp) 30 ml PO Q6H PRN PRN Reason: Heartburn/Nausea Atorvastatin Calcium (Atorvastatin Calcium 40 Mg Tablet) 40 mg PO DAILY BEN Last Admin: 05/03/23 08:45 Dose: 40 mg Dextrose (Dextrose 50 % 25 Gm/50 Ml Syringe) 25 gm IVPUSH Q15M PRN; Protocol PRN Reason: per Hypoglycemia Standing Ord. Empagliflozin (Empagliflozin 25 Mg Tablet) 25 mg PO DAILY [facility] Last Admin: 05/03/23 08:46 Dose: 25 mg Famotidine (Famotidine 20 Mg Tablet) 20 mg PO DAILY [facility] Last Admin: 05/03/23 08:46 Dose: 20 mg Glucose (Glucose Gel 15 Gm Gel..Gram.) 15 gm PO Q15M PRN; Protocol PRN Reason: per Hypoglycemia Standing Ord. Insulin Human Lispro (Insulin Lispro 100 Unit/Ml 3 Ml Vial) 0 unit SUBCUT QIDACHS [facility]; Protocol Last Admin: 05/03/23 12:11 Dose: 8 unit Magnesium Hydroxide (Milk Of Magnesia 30 Ml Oral.Susp) 30 ml PO DAILY PRN PRN Reason: Constipation Metformin HCl (Metformin Hcl 500 Mg Tablet) 500 mg PO BID [facility] Last Admin: 05/03/23 08:45 Dose: 500 mg Olanzapine (Olanzapine 5 Mg Tablet) 5 mg PO BEDTIME [facility] Last Admin: 05/02/23 22:06 Dose: 5 mg Olanzapine (Olanzapine 2.5 Mg Tablet) 2.5 mg PO Q4H PRN PRN Reason: anxiety/agitation Last Admin: 04/29/23 17:17 Dose: 2.5 mg Omeprazole (Omeprazole 20 Mg Capsule.Dr) 20 mg PO DAILY [facility] Last Admin: 05/03/23 08:46 Dose: 20 mg Prednisone (Prednisone 20 Mg Tablet) 20 mg PO BID [facility] Last Admin: 05/03/23 08:45 Dose: 20 mg Sertraline HCl (Sertraline Hcl 50 Mg Tablet) 50 mg PO DAILY [facility] Last Admin: 05/03/23 08:45 Dose: 50 mg Trazodone HCl (Trazodone Hcl 50 Mg Tablet) 50 mg PO BEDTIME MRX1 PRN PRN Reason: Insomnia Last Admin: 05/02/23 22:06 Dose: 50 mg Allergies Allergies Allergy/AdvReac Type Severity Reaction Status Date / Time No Known Allergies Allergy Verified 03/23/23 18:13 Assessment & Plan Assessment & Plan (1) Encephalopathy: Status: Acute Code(s): G93.40 - Encephalopathy, unspecified Assessment and Plan: 57 years old woman with relatively quickly progressive neuropsychiatric condition manifesting with depression and cognitive dysfunction. There was also generalized bradykinesia but otherwise no tremor or cogwheeling. No definite upper motor neuron signs were noted other than cross adductor reflex. Multiple blood test have been negative. CSF CJD test was negative. MRI of scans have not reveal any significant pathology. CSF protein was 88, which was somewhat high for her age. It suggested that her primary problem was probably not just psychiatric. Psychiatric issues or probably part of a neuropsychiatric syndrome. Differential diagnosis of this would include an inflammatory but also degenerative condition. In terms of inflammatory conditions, meningoencephalitis panel has been negative and that has ruled out most of those conditions. Autoimmune or paraneoplastic entities are still possibilities. Finally, vasculitis, specially primary RN CARDIOLOGY vasculitis might be a consideration too. For more refined diagnosis, CSF paraneoplastic and autoimmune panels should be done but that may require further CSF removal. If all that becomes ne gative, brain biopsy might be a consideration. Some of this cannot be done in this institution. I recommend that case should be discuss with the [facility] psychiatric department to see if there was any interest or place available for her to be transferred. In the meantime or if that was not a possibility, I recommend challenging her with prednisone 20 mg a day for 2-3 weeks to see if that would make any difference. (2) Depressive disorder: Status: Acute Code(s): F32.A - Depression, unspecified Plan 03/24:? R/O lewy body dementia.? hold neuroleptics for now, pending neuro consult, as if pt has LBD and receives neuroleptics, irreversible injury may be caused.? pt sees Dr. Mattson and reportedly has had imaging elsewhere.? will ask Dr. Mattson to see her ROCHELLE.? 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 03/25: Continue current regimen and plans.? Neurology consult pending. 03/26: Continue current regimen and plans.? Ordered low-dose Ativan yesterday. 03/27:? per Dr. Mattson, MRI does not demonstrate pathology, Dx of dementia is unclear; his impression was of primary psychiatric disorder and she was started on effexor XR.? EEG was recommended.? will obtain MoCA, T/C low dose of risperidone? at 3 pm and another at [facility] for what appears to be sundowning/sleep disturbance, if sufficient confidence is present that this is not LBD. 03/28:? MoCA 04/04.? extremely poor visuospatial/executive fxn.? does not appear delirious, general comportment would not betray such a low score.? EEG today, awaiting read.? T/C increasing dose of antidepressant medication.? family mtg with SW and pt's daughter. 03/29:? EEG read as WNL.? HCP obtained from daughter and invoked.? considering transfer to neuro unit for more detailed neuro w/u rather than continuing neuro w/u here.? after discussion with Dr. Mattson, plan made to get LP for dementia markers and other. 03/30:? Dr. Mattson added recommendations for repeat MRI as well as adding CJD testing to CSF.? LP conducted today and CJD to be sent out; will need to wait for NEG result on that prior to repeat LP for CSF to do additional studies.? no change in presentation today.? MRI deferred to tomorrow due to lack of time. 03/31:? MRI today.? no change in presentation.? level of consciousness seems stable, but mood appears to vary.? no adverse reaction to zyprexa last night.? 2.5 mg PRNs added today for agitation. 04/01:? MRI remains undone.? stably disoriented and sad.? continue current mgmt for now.? T/C reintroducing an antidepressant. 04/02:? MRI scheduled for 04/04.? stable presentation.? continue current mgmt. 04/03:? pt is apparently having difficulty coordinating hands/eyes to get medications into her mouth.? ambulating next to wall for support and following lines in linoleum on the floor.? doesn't know where her room is, wandering into others' rooms.? brain MRI completed this afternoon, not yet read. 04/04:? brain MRI unilluminating.? Dr. Mattson requested to review and opine.? similar presentation as yesterday. 04/05:? case d/w lida and hcris.? [place] to consult.? plan made to send for labs for ricketsial/tick-borne illness, inflammatory/auto-immune markers, and available serum markers suggestive of paraneoplastic syndromes.? decision was made to hold transfer to neuropscyh unit as the next step for them would be an LP.? we will plan to wait for CJD negative result and repeat LP for more likely illuminating information.? in the meantime, will DC zyprexa as providing some 5-HT stimulation and use haldol instead with some ativan in the event this is a catatonic depression.? also will add acyclovir prophylaxis in the event this is an HSV encephalitis, as it is one thing we can treat which may otherwise be devastating.? it will be impossible to make truly informed decisions until another LP is able to be done, but the cost-benefit ratio for acyclovir is large. 04/06:? large battery of labs drawn yesterday, most still pending.? CRP elevated.? acyclovir was not started yesterday; awaiting input from ID and medicine prior to initiating any further treatment.? ativan and haldol combination do not appear to have substantially modified pt's presentation. 04/07:? limited labs returned today, thus far not suggestive of auto-immune condition, certain infections diseases ruled out.? continue current mgmt.? CJD results not yet in. 04/08/23 continue treatmetn plan 04/09/23 continue treatment plan 04/10/23 Case reviewed with neurologist.? Haldol discontinued on unclear if worsening motor functioning no clear diagnosis to this point neurological versus primary psychiatric disorder presenting an unusual manner.? Hospital has been waiting to do repeat lumbar puncture secondary to initial test for prion disease with an need repeat lumbar puncture if no neurological diagnosis consider ECT?? Consider transfer to neurology unit this has been discussed with police chief deputy and attending psychiatrist Dr. Matthew and with neurologist Srinivasan 04/11:? tick-borne Dz panel NEG, heavy metals NEG, inflammatory markers unremarkably elevated.? appears notably improved in terms of lability/irritability as well as cognition since DC of anti-psychotic and lowering of ativan dosing. 04/12:? continue current mgmt.? stable presentation. 04/13:? continue current mgmt.? stable.? contacted lab re CJD result status, awaiting response. 04/14:? CJD NEG.? will plan for LP early next week.? no change in presentation.? taper ativan.? discussed case with pt's daughter. 04/15 continue tx 04/16 continue tx. 04/17:? LP ordered with various CSF labs.? no change in presentation.? will add zoloft and zyprexa to regimen for presumed Dx of psychotic depression. 04/18:? LP today.? no change in presentation.? continue current mgmt.? await LP results.? if NEG, proceed as for psychotic depression.? T/C ECT. 04/19:? CSF with protein 88 (nml range 23-38).? most other results pending.? Dr. Mattson notified of result, case discussed with Dr. Hilton.? no change in mgmt pending return of more results, which should guide next steps. 04/20:? CSF infectious panel NEG.? many results remain pending.? case d/w lida.? continue current mgmt pending more info re potential autoimmune or paraneoplastic etiology. 04/21:? presentation unchanged.? seen by neuro, c ase D/W Dr. Mattson.? see above for neuro note details.? start prednisone 20 mg daily empiric therapy for now, while remainder of CSF labs pending. 04/22: Continue current regimen and plans.? Continue one-to-one 04/23: Continue current plans and regimen 04/24:? perhaps mild improvement in spatial navigation and awareness since prednisone start.? awaiting lab results to return.? continue current mgmt for now. 04/25:? elevated CSF protein and albumin.? all other tests either normal or pending.? continue current mgmt.? probable pt will need to be transferred to neuropsych unit for more detailed w/u. 04/26: case d/w chris hilton kareem. srinivasan recommendation is for prednisone 20 BID for 3-4 weeks and if no improvement by then transfer to neuro unit at tertiary care center. increase prednisone from 20 daily to 20 BID as of today, DC wellbutrin as not adequately indicated. otherwise continue current mgmt. 04/27: continue current mgmt. 04/28: DC wellbutrin as an unnecessary additional medication in situation where primary diagnosis is not likely depression. continue zoloft and zyprexa, however: zoloft for presumed depression since end of 35 year relationship 9 months ago, zyprexa for delirium/sedation at [facility]. approved for transfer to [facility] [place], no beds, awaiting open bed. 04/29: no change in presentation today. agitated again last night, slept only 4 hours overnight. 04/30: slept well last night, period of agitation and disorganization. started on insulin for increased FSBS 2/2 prednisone. 05/01: stable presentation, no change in mgmt. case D/[place] [facility] who has retracted their statement of acceptance for transfer. 05/02: stable presentation. remains on 1:1 for wandering. case referral to [facility] in process. continue steroids for now. 05/03: declined by both [facility] and [facility] [place]. stable. continue current mgmt otherwise. T/C referral to [facility]. Reason for continued inpatient stay Substantial Risk for: inability to function Time Spent With Patient Time: Total time managing care of this patient today __35__ minutes.
[2023-05-03] MEDS: OLANZapine 5 MG TABLET PO (21:35)
[2023-05-03] MEDS: traZODone HCL 50 MG TABLET PO (21:35)
[2023-05-03 21:38] VITALS: BP 109/71; PULSE 73; TEMP 36.3; O2SAT 97
[2023-05-04 02:16] LABS: Glucose, Whole Blood 318 mg/dL (60-115)
[2023-05-04 02:16] LABS: Glucose, Whole Blood 284 mg/dL (60-115)
[2023-05-04 08:26] LABS: Glucose, Whole Blood 173 mg/dL (60-115)
[2023-05-04 09:00] VITALS: BP 152/73; PULSE 78; RESP 16; TEMP 36.8; O2SAT 100
[2023-05-04] MEDS: Insulin Lispro 100 UNIT/ML 3 ML VIAL SUBCUT ×4 (09:10→20:42)
[2023-05-04] MEDS: Atorvastatin Calcium 40 MG TABLET PO (09:11)
[2023-05-04] MEDS: Omeprazole 20 MG CAPSULE.DR PO (09:11)
[2023-05-04] MEDS: Sertraline HCL 50 MG TABLET PO (09:11)
[2023-05-04] MEDS: Empagliflozin 25 MG TABLET PO (09:11)
[2023-05-04] MEDS: metFORMIN HCl 500 MG TABLET PO (09:11)
[2023-05-04] MEDS: Famotidine 20 MG TABLET PO (09:11)
[2023-05-04] MEDS: predniSONE 20 MG TABLET PO ×2 (09:11→20:42)
[2023-05-04 10:05] VITALS: BMI 30.2
[2023-05-04 12:46] LABS: Glucose, Whole Blood 287 mg/dL (60-115)
--- NOTE | 2023-05-04 13:16 | PM.EVENT ---
Event Note Date of Service: 05/04/23 Event Note: Glucose levels improved with SSI. Increased metformin to 1000mg BID. Continue diabetic diet. Thank you for allowing me to participate in this consult. Signing off at this time. Please do not hesitate to call for further questions. Time Spent With Patient Time: Total time managing care of this patient today ____ minutes.
--- NOTE | 2023-05-04 15:32 | HO.PSYCHPN ---
Subjective Subjective Date of Service: 05/04/23 Reason For Visit: hallucinations Interim History: no change in presentation. per staff, increased FSBS. receiving insulin. slept all NOC. pacing days. Mental Status Exam Mental Status Exam Narrative: calm, cooperative, diminutive. disheveled. general PMR. fair eye contact, speech nml rate, soft, decr prosody, decr amount. thoughts generally linear/relevant interchange; paucity of thought; confabulation. affect constricted, hypo-intense, non-labile. no SI/SIBI/HI/AVH expressed. gross cognitive impairment. Diagnostics Vital Signs (24Hr): Vital Signs - 24 hr 05/03/23 21:38 05/04/23 09:00 Temperature 97.3 F 98.2 F Pulse Rate 73 78 Respiratory Rate 16 Blood Pressure 109/71 152/73 H Pulse Oximetry 97 100 Oxygen Delivery Method Room Air Room Air BMI result Body Mass Index 30.2 Labs 04/08/23 09:08 04/29/23 08:22 Labs: Laboratory Results - last 48 hr 05/02/23 05/03/23 05/03/23 17:34 08:27 12:03 POC Glucose 279 H 154 H 340 H 05/03/23 05/03/23 05/04/23 16:29 21:33 08:22 POC Glucose 318 H 284 H 173 H 05/04/23 12:41 POC Glucose 287 H Imaging Radiology Impressions: ITS Impressions Brain MRI 04/03/23 15:30 IMPRESSION: No acute infarct, mass lesion, intracranial hemorrhage, or evidence of hydrocephalus. Mild nonspecific T2/FLAIR hyperintensity in the cerebral white matter and danny presumably on the basis of chronic microangiopathy. Medications Medications Current Medications Acetaminophen (Acetaminophen 325 Mg Tablet) 650 mg PO Q6H PRN PRN Reason: Headache/Pain Mild Scale (1-3) Last Admin: 04/29/23 23:14 Dose: 650 mg Al Hydroxide/Mg Hydroxide (Magnesium Hydrox/Alum Hydrox 30 Ml Oral.Susp) 30 ml PO Q6H PRN PRN Reason: Heartburn/Nausea Atorvastatin Calcium (Atorvastatin Calcium 40 Mg Tablet) 40 mg PO DAILY [facility] Last Admin: 05/04/23 09:11 Dose: 40 mg Dextrose (Dextrose 50 % 25 Gm/50 Ml Syringe) 25 gm IVPUSH Q15M PRN; Protocol PRN Reason: per Hypoglycemia Standing Ord. Empagliflozin (Empagliflozin 25 Mg Tablet) 25 mg PO DAILY [facility] Last Admin: 05/04/23 09:11 Dose: 25 mg Famotidine (Famotidine 20 Mg Tablet) 20 mg PO DAILY [facility] Last Admin: 05/04/23 09:11 Dose: 20 mg Glucose (Glucose Gel 15 Gm Gel..Gram.) 15 gm PO Q15M PRN; Protocol PRN Reason: per Hypoglycemia Standing Ord. Insulin Human Lispro (Insulin Lispro 100 Unit/Ml 3 Ml Vial) 0 unit SUBCUT QIDACHS [facility]; Protocol Last Admin: 05/04/23 12:49 Dose: 6 unit Magnesium Hydroxide (Milk Of Magnesia 30 Ml Oral.Susp) 30 ml PO DAILY PRN PRN Reason: Constipation Metformin HCl (Metformin Hcl 1,000 Mg Tablet) 1,000 mg PO BID [facility] Olanzapine (Olanzapine 5 Mg Tablet) 5 mg PO BEDTIME [facility] Last Admin: 05/03/23 21:35 Dose: 5 mg Olanzapine (Olanzapine 2.5 Mg Tablet) 2.5 mg PO Q4H PRN PRN Reason: anxiety/agitation Last Admin: 04/29/23 17:17 Dose: 2.5 mg Omeprazole (Omeprazole 20 Mg Capsule.Dr) 20 mg PO DAILY [facility] Last Admin: 05/04/23 09:11 Dose: 20 mg Prednisone (Prednisone 20 Mg Tablet) 20 mg PO BID [facility] Last Admin: 05/04/23 09:11 Dose: 20 mg Sertraline HCl (Sertraline Hcl 50 Mg Tablet) 50 mg PO DAILY [facility] Last Admin: 05/04/23 09:11 Dose: 50 mg Trazodone HCl (Trazodone Hcl 50 Mg Tablet) 50 mg PO BEDTIME MRX1 PRN PRN Reason: Insomnia Last Admin: 05/03/23 21:35 Dose: 50 mg Allergies Allergies Allergy/AdvReac Type Severity Reaction Status Date / Time No Known Allergies Allergy Verified 03/23/23 18:13 Assessment & Plan Assessment & Plan (1) Encephalopathy: Status: Acute Code(s): G93.40 - Encephalopathy, unspecified Assessment and Plan: 57 years old woman with relatively quickly progressive neuropsychiatric condition manifesting with depression and cognitive dysfunction. There was also generalized bradykinesia but otherwise no tremor or cogwheeling. No definite upper motor neuron signs were noted other than cross adductor reflex. Multiple blood test have been negative. CSF CJD test was negative. MRI of scans have not reveal any significant pathology. CSF protein was 88, which was somewhat high for her age. It suggested that her primary problem was probably not just psychiatric. Psychiatric issues or probably part of a neuropsychiatric syndrome. Differential diagnosis of this would include an inflammatory but also degenerative condition. In terms of inflammatory conditions, meningoencephalitis panel has been negative and that has ruled out most of those conditions. Autoimmune or paraneoplastic entities are still possibilities. Finally, vasculitis, specially primary RECORD FILING CLERK vasculitis might be a consideration too. For more refined diagnosis, CSF paraneoplastic and autoimmune panels should be done but that may require further CSF removal. If all that becomes negative, brain biopsy might be a consideration. Some of this cannot be done in this institution. I recommend that case should be discuss with the tertiary care institution [facility] to see if there was any interest or place available for her to be transferred. In the meantime or if that was not a possibility, I recommend challenging her with prednisone 20 mg a day for 2-3 weeks to see if that would make any difference. (2) Depressive disorder: Status: Acute Code(s): F32.A - Depression, unspecified Plan 03/24:? R/O lewy body dementia.? hold neuroleptics for now, pending neuro consult, as if pt has LBD and receives neuroleptics, irreversible injury may be caused.? pt sees Dr. Mattson and reportedly has had imaging elsewhere.? will ask Dr. Mattson to see her ROCHELLE.? 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 03/25: Continue current regimen and plans.? Neurology consult pending. 03/26: Continue current regimen and plans.? Ordered low-dose Ativan yesterday. 03/27:? per Dr. Mattson, MRI does not demonstrate pathology, Dx of dementia is unclear; his impression was of primary psychiatric disorder and she was started on effexor XR.? EEG was recommended.? will obtain MoCA, T/C low dose of risperidone? at 3 pm and another at [facility] for what appears to be sundowning/sleep disturbance, if sufficient confidence is present that this is not LBD. 03/28:? MoCA 04/04.? extremely poor visuospatial/executive fxn.? does not appear delirious, general comportment would not betray such a low score.? EEG today, awaiting read.? T/C increasing dose of antidepressant medication.? family mtg with SW and pt's daughter. 03/29:? EEG read as WNL.? HCP obtained from daughter and invoked.? considering transfer to neuro unit for more detailed neuro w/u rather than continuing neuro w/u here.? after discussion with Dr. Mattson, plan made to get LP for dementia markers and other. 03/30:? Dr. Mattson added recommendations for repeat MRI as well as adding CJD testing to CSF.? LP conducted today and CJD to be sent out; will need to wait for NEG result on that prior to repeat LP for CSF to do additional studies.? no change in presentation today.? MRI deferred to tomorrow due to lack of time. 03/31:? MRI today.? no change in presentation.? level of consciousness seems stable, but mood appears to vary.? no adverse reaction to zyprexa last night.? 2.5 mg PRNs added today for agitation. 04/01:? MRI remains undone.? stably disoriented and sad.? continue current mgmt for now.? T/C reintroducing an antidepressant. 04/02:? MRI scheduled for 04/04.? stable presentation.? continue current mgmt. 04/03:? pt is apparently having difficulty coordinating hands/eyes to get medications into her mouth.? ambulating next to wall for support and following lines in linoleum on the floor.? doesn't know where her room is, wandering into others' rooms.? brain MRI completed this afternoon, not yet read. 04/04:? brain MRI unilluminating.? Dr. Mattson requested to review and opine.? similar presentation as yesterday. 04/05:? case d/w lida and chris.? [place] to consult.? plan made to send for labs for ricketsial/tick-borne illness, inflammatory/auto-immune markers, and available serum markers suggestive of paraneoplastic syndromes.? decision was made to hold transfer to neuropscyh unit as the next step for them would be an LP.? we will plan to wait for CJD negative result and repeat LP for more likely illuminating information.? in the meantime, will DC zyprexa as providing some 5-HT stimulation and use haldol instead with some ativan in the event this is a catatonic depression.? also will add acyclovir prophylaxis in the event this is an HSV encephalitis, as it is one thing we can treat which may otherwise be devastating.? it will be impossible to make truly informed decisions until another LP is able to be done, but the cost-benefit ratio for acyclovir is large. 04/06:? large battery of labs drawn yesterday, most still pending.? CRP elevated.? acyclovir was not started yesterday; awaiting input from ID and medicine prior to initiating any further treatment.? ativan and haldol combination do not appear to have substantially modified pt's presentation. 04/07:? limited labs returned today, thus far not suggestive of auto-immune condition, certain infections diseases ruled out.? continue current mgmt.? CJD results not yet in. 04/08/23 continue treatmetn plan 04/09/23 continue treatment plan 04/10/23 Case reviewed with neurologist.? Haldol discontinued on unclear if worsening motor functioning no clear diagnosis to this point neurological versus primary psychiatric disorder presenting an unusual manner.? Hospital has been waiting to do repeat lumbar puncture secondary to initial test for prion disease with an need repeat lumbar puncture if no neurological diagnosis consider ECT?? Consider transfer to neurology unit this has been discussed with compressor station chief engineer and attending psychiatrist Dr. Matthew and with neurologist Srinivasan 04/11:? tick-borne Dz panel NEG, heavy metals NEG, inflammatory markers unremarkably elevated.? appears notably improved in terms of lability/irritability as well as cognition since DC of anti-psychotic and lowering of ativan dosing. 04/12:? continue current mgmt.? stable presentation. 04/13:? continue current mgmt.? stable.? contacted lab re CJD result status, awaiting response. 04/14:? CJD NEG.? will plan for LP early next week.? no change in presentation.? taper ativan.? discussed case with pt's daughter. 04/15 continue tx 04/16 continue tx. 04/17:? LP ordered with various CSF labs.? no change in presentation.? will add zoloft and zyprexa to regimen for presumed Dx of psychotic depression. 04/18:? LP today.? no change in presentation.? continue current mgmt.? await LP results.? if NEG, proceed as for psychotic depression.? T/C ECT. 04/19:? CSF with protein 88 (nml range 23-38).? most other results pending.? Dr. Mattson notified of result, case discussed with Dr. Hilton.? no change in mgmt pending return of more results, which should guide next steps. 04/20:? CSF infectious panel NEG.? many results remain pending.? case d/w lida.? continue current mgmt pending more info re potential autoimmune or paraneoplastic etiology. 04/21:? presentation unchanged.? seen by neuro, c ase D/W Dr. Mattson.? see above for neuro note details.? start prednisone 20 mg daily empiric therapy for now, while remainder of CSF labs pending. 04/22: Continue current regimen and plans.? Continue one-to-one 04/23: Continue current plans and regimen 04/24:? perhaps mild improvement in spatial navigation and awareness since prednisone start.? awaiting lab results to return.? continue current mgmt for now. 04/25:? elevated CSF protein and albumin.? all other tests either normal or pending.? continue current mgmt.? probable pt will need to be transferred to neuropsych unit for more detailed w/u. 04/26: case d/w chris hilton kareem. srinivasan recommendation is for prednisone 20 BID for 3-4 weeks and if no improvement by then transfer to neuro unit at tertiary care center. increase prednisone from 20 daily to 20 BID as of today, DC wellbutrin as not adequately indicated. otherwise continue current mgmt. 04/27: continue current mgmt. 04/28: DC wellbutrin as an unnecessary additional medication in situation where primary diagnosis is not likely depression. continue zoloft and zyprexa, however: zoloft for presumed depression since end of 35 year relationship 9 months ago, zyprexa for delirium/sedation at [facility]. approved for transfer to [facility] neuro unit, no beds, awaiting open bed. 04/29: no change in presentation today. agitated again last night, slept only 4 hours overnight. 04/30: slept well last night, period of agitation and disorganization. started on insulin for increased FSBS 2/2 prednisone. 05/01: stable presentation, no change in mgmt. case D/W [facility], who has retracted their statement of acceptance for transfer. 05/02: stable presentation. remains on 1:1 for wandering. case referral to [facility] in process. continue steroids for now. 05/03: declined by both [facility]/ and [facility]. stable. continue current mgmt otherwise. T/C referral to [facility]. 05/04: no change in presentation. transfer rejected by [facility]. case d/w lida. continue current mgmt for now. Reason for continued inpatient stay Substantial Risk for: inability to function Time Spent With Patient Time: Total time managing care of this patient today __35__ minutes.
[2023-05-04 17:42] LABS: Glucose, Whole Blood 164 mg/dL (60-115)
[2023-05-04 20:18] LABS: Glucose, Whole Blood 190 mg/dL (60-115)
[2023-05-04] MEDS: OLANZapine 5 MG TABLET PO (20:42)
[2023-05-04] MEDS: metFORMIN HCl 1,000 MG TABLET 1000 MG PO (20:42)
[2023-05-04 20:54] VITALS: BP 148/68; PULSE 52; RESP 17; TEMP 36.6; O2SAT 97
[2023-05-05] MEDS: Famotidine 20 MG TABLET PO (08:35)
[2023-05-05] MEDS: Omeprazole 20 MG CAPSULE.DR PO (08:35)
[2023-05-05] MEDS: Atorvastatin Calcium 40 MG TABLET PO (08:35)
[2023-05-05] MEDS: Sertraline HCL 50 MG TABLET PO (08:35)
[2023-05-05] MEDS: Empagliflozin 25 MG TABLET PO (08:35)
[2023-05-05] MEDS: metFORMIN HCl 1,000 MG TABLET 1000 MG PO ×2 (08:35→20:16)
[2023-05-05] MEDS: predniSONE 20 MG TABLET PO ×2 (08:35→20:16)
[2023-05-05 08:49] LABS: Glucose, Whole Blood 205 mg/dL (60-115)
[2023-05-05] MEDS: Insulin Lispro 100 UNIT/ML 3 ML VIAL SUBCUT ×4 (08:55→20:16)
[2023-05-05 09:40] VITALS: BP 113/57; PULSE 50; RESP 16; TEMP 36.2; O2SAT 99
--- NOTE | 2023-05-05 12:21 | P.CNNE_ITS ---
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 She had multiple investigations and some of the CSF testing including paraneoplastic panel were pending. Review of Systems Review of Systems: No seizure or similar episode no stroke-like symptoms PMFSH Past Medical History Medical History Diabetes GERD (gastroesophageal reflux disease) Family History Family history: reviewed and not pertinent Social History Social History Household Members: Family Housing: Other Housing Other:: PATIENT CURRENTLY SLEEPING ON BROTHERS COUCH Do you presently have visiting nurse or other home services: No Unable to assess alcohol history related to: Unknown Patient Tobacco Use Status: Tobacco use Unknown Advance Directives: No Advance Directives Information Provided: Yes Advance Directives Date on File: 03/30/23 service: No Sexual orientation: Straight/Heterosexual Meds Allergies Allergy/AdvReac Type Severity Reaction Status Date / Time No Known Allergies Allergy Verified 03/23/23 18:13 Active Medications: Current Medications Acetaminophen (Acetaminophen 325 Mg Tablet) 650 mg PO Q6H PRN PRN Reason: Headache/Pain Mild Scale (1-3) Last Admin: 04/29/23 23:14 Dose: 650 mg Al Hydroxide/Mg Hydroxide (Magnesium Hydrox/Alum Hydrox 30 Ml Oral.Susp) 30 ml PO Q6H PRN PRN Reason: Heartburn/Nausea Atorvastatin Calcium (Atorvastatin Calcium 40 Mg Tablet) 40 mg PO DAILY [facility] Last Admin: 05/05/23 08:35 Dose: 40 mg Dextrose (Dextrose 50 % 25 Gm/50 Ml Syringe) 25 gm IVPUSH Q15M PRN; Protocol PRN Reason: per Hypoglycemia Standing Ord. Empagliflozin (Empagliflozin 25 Mg Tablet) 25 mg PO DAILY [facility] Last Admin: 05/05/23 08:35 Dose: 25 mg Famotidine (Famotidine 20 Mg Tablet) 20 mg PO DAILY [facility] Last Admin: 05/05/23 08:35 Dose: 20 mg Glucose (Glucose Gel 15 Gm Gel..Gram.) 15 gm PO Q15M PRN; Protocol PRN Reason: per Hypoglycemia Standing Ord. Insulin Human Lispro (Insulin Lispro 100 Unit/Ml 3 Ml Vial) 0 unit SUBCUT QIDACHS [facility]; Protocol Last Admin: 05/05/23 08:55 Dose: 4 unit Magnesium Hydroxide (Milk Of Magnesia 30 Ml Oral.Susp) 30 ml PO DAILY PRN PRN Reason: Constipation Metformin HCl (Metformin Hcl 1,000 Mg Tablet) 1,000 mg PO BID [facility] Last Admin: 05/05/23 08:35 Dose: 1,000 mg Olanzapine (Olanzapine 5 Mg Tablet) 5 mg PO BEDTIME [facility] Last Admin: 05/04/23 20:42 Dose: 5 mg Olanzapine (Olanzapine 2.5 Mg Tablet) 2.5 mg PO Q4H PRN PRN Reason: anxiety/agitation Last Admin: 04/29/23 17:17 Dose: 2.5 mg Omeprazole (Omeprazole 20 Mg Capsule.Dr) 20 mg PO DAILY [facility] Last Admin: 05/05/23 08:35 Dose: 20 mg Prednisone (Prednisone 20 Mg Tablet) 20 mg PO BID [facility] Last Admin: 05/05/23 08:35 Dose: 20 mg Sertraline HCl (Sertraline Hcl 50 Mg Tablet) 50 mg PO DAILY [facility] Last Admin: 05/05/23 08:35 Dose: 50 mg Trazodone HCl (Trazodone Hcl 50 Mg Tablet) 50 mg PO BEDTIME MRX1 PRN PRN Reason: Insomnia Last Admin: 05/03/23 21:35 Dose: 50 mg Home Medications Medication Instructions Recorded Confirmed Last Taken Type atorvastatin 40 mg tablet 40 mg PO DAILY 03/23/23 03/23/23 Unknown History empagliflozin 25 mg tablet 25 mg PO DAILY 03/23/23 03/23/23 Unknown History (Jardiance) famotidine 20 mg tablet 20 mg PO DAILY 03/23/23 03/23/23 Unknown History metformin 500 mg tablet 500 mg PO BID 03/23/23 03/23/23 Unknown History omeprazole 20 mg capsule,delayed 20 mg PO DAILY 03/23/23 03/23/23 Unknown History release venlafaxine 75 mg tablet 75 mg PO DAILY 03/23/23 03/23/23 Unknown History ferrous sulfate 325 mg (65 mg 325 mg PO DAILY 03/24/23 03/24/23 Unknown History iron) tablet Physical Exam Vital Signs: Vital Signs: Last Vital Signs Temp 97.1 F 05/05/23 09:40 Pulse 50 05/05/23 09:40 Resp 16 05/05/23 09:40 BP 113/57 L 05/05/23 09:40 Pulse Ox 99 05/05/23 09:40 O2 Del Method Room Air 05/05/23 09:40 BMI result Body Mass Index 30.2 Neuro: Other: He is alert and awake watching television when I arrived. She looked at me made eye contact and probably recognize me. We walked to gather in the hallway and she did not have any significant problems. DTRs are trace. Results Labs 04/08/23 09:08 04/29/23 08:22 Microbiology Microbiology Results: Microbiology 04/18/23 11:00 Cerebrospinal Fluid Gram Stain - Final 04/18/23 11:00 Cerebrospinal Fluid CSF Examination - Final 04/18/23 11:00 Cerebrospinal Fluid Fluid Description - Final 04/18/23 11:00 Cerebrospinal Fluid CSF Culture - Final No growth after 3 days. Assessment and Plan (1) Dementia: Status: Acute 57 years old woman with somewhat rapidly progressing dementia or symptoms of dementia with CSF protein of 88 but otherwise no definite clue about her diagnosis. I discussed the case with neurology service at [facility] and they suggested that the workup has been appropriate and thorough and it was not clear if any further investigations were needed. Also, they did not have beds available for transfer According to their experience, this level of CSF protein could be seen and degenerative disorders but could also be seen in some type of spine pathology, which we have not investigated. In any case, high CSF protein without elevation of cells and without any significant brain lesions on MRI, does not suggest malignancy or vasculitis type of pathology. At this time, after discussing the case with the neurologist in [place], my recommendation is to treat her for degenerative dementia appearing in young age. Some CSF tests are pending which may confirm this notion. PET scan can also help. On the other hand, further CSF analysis and investigations for vasculitis like brain biopsy are not warranted. As far as treatment of dementia is concerned, it is symptomatic. I would start with donepezil 5 mg daily and after a week would add memantine 5 mg twice a day. These are the 2 types of medicines available at this time. Finally, her placement could be an issue as she would not be able to live independently Time Spent With Patient Time: Total time managing care of this patient today ____ minutes. Procedures Date of Service Date of Service: 05/05/23
[2023-05-05 12:42] LABS: Glucose, Whole Blood 252 mg/dL (60-115)
--- NOTE | 2023-05-05 17:00 | HO.PSYCHPN ---
Subjective Subjective Date of Service: 05/05/23 Reason For Visit: hallucinations confusion Subjective Notes: Conditional Voluntary Healthcare Proxy: Yes Interim History: pt perhaps with some inc lucid periods other times not sure where she is [place] some PI meds not real case reviewed with neurology Medication Compliance: Intermittent Mental Status Exam Mental Status Exam Narrative: calm, cooperative, general PMR. good eye contact, speech nml rate, soft, decr prosody, decr amount. thoughts generally linear/relevant interchange; paucity of thought; confabulation. affect constricted, blunted non-labile. no SI/SIBI/HI/AVH expressed. gross cognitive impairment. place a resort , slowed processing gait ok Diagnostics Vital Signs (24Hr): Vital Signs - 24 hr 05/04/23 20:54 05/05/23 09:40 Temperature 97.8 F 97.1 F Pulse Rate 52 50 Respiratory Rate 17 16 Blood Pressure 148/68 H 113/57 L Pulse Oximetry 97 99 Oxygen Delivery Method Room Air Room Air BMI result Body Mass Index 30.2 Labs 04/08/23 09:08 04/29/23 08:22 Labs: Laboratory Results - last 48 hr 05/03/23 05/03/23 05/04/23 16:29 21:33 08:22 POC Glucose 318 H 284 H 173 H 05/04/23 05/04/23 05/04/23 12:41 17:34 20:04 POC Glucose 287 H 164 H 190 H 05/05/23 05/05/23 08:44 12:37 POC Glucose 205 H 252 H Imaging Radiology Impressions: ITS Impressions Brain MRI 04/03/23 15:30 IMPRESSION: No acute infarct, mass lesion, intracranial hemorrhage, or evidence of hydrocephalus. Mild nonspecific T2/FLAIR hyperintensity in the cerebral white matter and danny presumably on the basis of chronic microangiopathy. Medications Medications Current Medications Acetaminophen (Acetaminophen 325 Mg Tablet) 650 mg PO Q6H PRN PRN Reason: Headache/Pain Mild Scale (1-3) Last Admin: 04/29/23 23:14 Dose: 650 mg Al Hydroxide/Mg Hydroxide (Magnesium Hydrox/Alum Hydrox 30 Ml Oral.Susp) 30 ml PO Q6H PRN PRN Reason: Heartburn/Nausea Atorvastatin Calcium (Atorvastatin Calcium 40 Mg Tablet) 40 mg PO DAILY [facility] Last Admin: 05/05/23 08:35 Dose: 40 mg Dextrose (Dextrose 50 % 25 Gm/50 Ml Syringe) 25 gm IVPUSH Q15M PRN; Protocol PRN Reason: per Hypoglycemia Standing Ord. Empagliflozin (Empagliflozin 25 Mg Tablet) 25 mg PO DAILY COUNTS INCLUDE 234 BEDS AT THE [facility] Last Admin: 05/05/23 08:35 Dose: 25 mg Famotidine (Famotidine 20 Mg Tablet) 20 mg PO DAILY COUNTS INCLUDE 234 BEDS AT THE [facility] Last Admin: 05/05/23 08:35 Dose: 20 mg Glucose (Glucose Gel 15 Gm Gel..Gram.) 15 gm PO Q15M PRN; Protocol PRN Reason: per Hypoglycemia Standing Ord. Insulin Human Lispro (Insulin Lispro 100 Unit/Ml 3 Ml Vial) 0 unit SUBCUT QIDACHS COUNTS INCLUDE 234 BEDS AT THE [facility]; Protocol Last Admin: 05/05/23 12:44 Dose: 6 unit Magnesium Hydroxide (Milk Of Magnesia 30 Ml Oral.Susp) 30 ml PO DAILY PRN PRN Reason: Constipation Metformin HCl (Metformin Hcl 1,000 Mg Tablet) 1,000 mg PO BID COUNTS INCLUDE 234 BEDS AT THE [facility] Last Admin: 05/05/23 08:35 Dose: 1,000 mg Olanzapine (Olanzapine 5 Mg Tablet) 5 mg PO BEDTIME COUNTS INCLUDE 234 BEDS AT THE [facility] Last Admin: 05/04/23 20:42 Dose: 5 mg Olanzapine (Olanzapine 2.5 Mg Tablet) 2.5 mg PO Q4H PRN PRN Reason: anxiety/agitation Last Admin: 04/29/23 17:17 Dose: 2.5 mg Omeprazole (Omeprazole 20 Mg Capsule.Dr) 20 mg PO DAILY COUNTS INCLUDE 234 BEDS AT THE [facility] Last Admin: 05/05/23 08:35 Dose: 20 mg Prednisone (Prednisone 20 Mg Tablet) 20 mg PO BID COUNTS INCLUDE 234 BEDS AT THE [facility] Last Admin: 05/05/23 08:35 Dose: 20 mg Sertraline HCl (Sertraline Hcl 50 Mg Tablet) 50 mg PO DAILY COUNTS INCLUDE 234 BEDS AT THE [facility] Last Admin: 05/05/23 08:35 Dose: 50 mg Trazodone HCl (Trazodone Hcl 50 Mg Tablet) 50 mg PO BEDTIME MRX1 PRN PRN Reason: Insomnia Last Admin: 05/03/23 21:35 Dose: 50 mg Allergies Allergies Allergy/AdvReac Type Severity Reaction Status Date / Time No Known Allergies Allergy Verified 03/23/23 18:13 Assessment & Plan Assessment & Plan (1) Dementia: Status: Acute Code(s): F03.90 - Unspecified dementia, unspecified severity, without behavioral disturbance, psychotic disturbance, mood disturbance, and anxiety Assessment and Plan: 57 years old woman with somewhat rapidly progressing dementia or symptoms of dementia with CSF protein of 88 but otherwise no definite clue about her diagnosis. I discussed the case with neurology service at [facility] and they suggested that the workup has been appropriate and thorough and it was not clear if any further investigations were needed. Also, they did not have beds available for transfer According to their experience, this level of CSF protein could be seen and degenerative disorders but could also be seen in some type of spine pathology, which we have not investigated. In any case, high CSF protein without elevation of cells and without any significant brain lesions on MRI, does not suggest malignancy or vasculitis type of pathology. 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 Some CSF tests are pending which may confirm this notion. PET scan can also help. On the other hand, further CSF analysis and investigations for vasculitis like brain biopsy are not warranted. As far as treatment of dementia is concerned, it is symptomatic. I would start with donepezil 5 mg daily and after a week would add memantine 5 mg twice a day. These are the 2 types of medicines available at this time. Finally, her placement could be an issue as she would not be able to live independently Plan 05/05/23 Pt with gross disorganiztion b sister give hx of more gradual detioration neuro note reviewed chart reviewed start aricept some csf results pending consider pet if available Reason for continued inpatient stay Substantial Risk for: inability to function and med/psych decompensation Time Spent With Patient Time: Total time managing care of this patient today ____ minutes.
[2023-05-05 20:10] VITALS: BP 124/55; PULSE 55; RESP 16; TEMP 36.4; O2SAT 100
[2023-05-05 20:13] LABS: Glucose, Whole Blood 231 mg/dL (60-115)
[2023-05-05 20:13] LABS: Glucose, Whole Blood 170 mg/dL (60-115)
[2023-05-05] MEDS: OLANZapine 5 MG TABLET PO (20:16)
[2023-05-06 06:00] VITALS: BP 119/70; PULSE 53; RESP 18; TEMP 36.2; O2SAT 98
[2023-05-06] MEDS: Famotidine 20 MG TABLET PO (08:16)
[2023-05-06] MEDS: Sertraline HCL 50 MG TABLET PO (08:17)
[2023-05-06] MEDS: predniSONE 20 MG TABLET PO ×2 (08:17→20:10)
[2023-05-06] MEDS: metFORMIN HCl 1,000 MG TABLET 1000 MG PO ×2 (08:17→20:10)
[2023-05-06] MEDS: Empagliflozin 25 MG TABLET PO (08:17)
[2023-05-06] MEDS: Donepezil HCl 5 MG TABLET PO (08:17)
[2023-05-06] MEDS: Atorvastatin Calcium 40 MG TABLET PO (08:17)
[2023-05-06] MEDS: Omeprazole 20 MG CAPSULE.DR PO (08:17)
[2023-05-06 08:47] LABS: Anion Gap 16 (12-20); Blood Urea Nitrogen 22 mg/dL (9-16); Carbon Dioxide 27 mmol/L (22-29); Chloride 103 mmol/L (96-108); Creatinine Clr Calc Pharmacy 68.4; Estimated Glomerular Filt Rate > 60; Glucose Random 203 mg/dL (60-115); Potassium 4.8 mmol/L (3.3-5.1); Sodium 141 mmol/L (135-145)
[2023-05-06] MEDS: Insulin Lispro 100 UNIT/ML 3 ML VIAL SUBCUT ×4 (09:00→20:27)
--- NOTE | 2023-05-06 14:32 | HO.PSYCHPN ---
Subjective Subjective Date of Service: 05/06/23 Reason For Visit: hallucinations confusion Subjective Notes: Conditional Voluntary Medical Problems Affecting Mental Status: No Interim History: met with patient. Discussed with Nursing. Chart reviewed. Overall on one-to-one observation due to confusion and wandering. Pleasant. Adherent with medications. Noted complicated disposition planning. Today with personal lines underwriter very pleasant. Reports that she has been here for maybe 2-3 weeks. Is aware that she has memory issues. Does report feeling safe. Sleep okay. Denies any medication concerns. Feels supported by staff. Denies depression. Medication Compliance: Yes Side effects from medications: No Attending Groups: Intermittent Review of Systems Acute medical concerns: No Review of Systems Review of Systems Yes Unobtainable due to mental status Mental Status Exam Mental Status Exam Narrative: calm, cooperative, general PMR. good eye contact, speech nml rate, soft, decr prosody, decr amount. thoughts generally linear/relevant interchange; paucity of thought; confabulation. affect constricted, blunted non-labile. no SI/SIBI/HI/AVH expressed. gross cognitive impairment. slowed processing gait ok. Insight and judgment limited Diagnostics Vital Signs (24Hr): Vital Signs - 24 hr 05/05/23 20:10 05/06/23 06:00 Temperature 97.6 F 97.1 F Pulse Rate 55 53 Respiratory Rate 16 18 Blood Pressure 124/55 L 119/70 Pulse Oximetry 100 98 Oxygen Delivery Method Room Air Room Air BMI result Body Mass Index 30.2 Labs 04/08/23 09:08 05/06/23 08:09 Labs: Laboratory Results - last 48 hr 04/18/23 05/04/23 05/04/23 11:58 17:34 20:04 Sodium Potassium Chloride Carbon Dioxide Anion Gap BUN Creatinine Estim Creat Clear Calc Estimated GFR POC Glucose 164 H 190 H Random Glucose Calcium CSF Anti-Neuronal Ab WB TNP CSF Anti-Neuronal Titer TNP 05/05/23 05/05/23 05/05/23 08:44 12:37 17:20 Sodium Potassium Chloride Carbon Dioxide Anion Gap BUN Creatinine Estim Creat Clear Calc Estimated GFR POC Glucose 205 H 252 H 170 H Random Glucose Calcium CSF Anti-Neuronal Ab WB CSF Anti-Neuronal Titer 05/05/23 05/06/23 05/06/23 20:09 08:09 08:10 Sodium 141 Potassium 4.8 Chloride 103 Carbon Dioxide 27 Anion Gap 16 BUN 22 H Creatinine 0.87 Estim Creat Clear Calc 68.4 Estimated GFR > 60 POC Glucose 231 H 213 H Random Glucose 203 H Calcium 10.0 CSF Anti-Neuronal Ab WB CSF Anti-Neuronal Titer 05/06/23 11:59 Sodium Potassium Chloride Carbon Dioxide Anion Gap BUN Creatinine Estim Creat Clear Calc Estimated GFR POC Glucose 248 H Random Glucose Calcium CSF Anti-Neuronal Ab WB CSF Anti-Neuronal Titer Imaging Radiology Impressions: ITS Impressions Brain MRI 04/03/23 15:30 IMPRESSION: No acute infarct, mass lesion, intracranial hemorrhage, or evidence of hydrocephalus. Mild nonspecific T2/FLAIR hyperintensity in the cerebral white matter and danny presumably on the basis of chronic microangiopathy. Medications Medications Current Medications Acetaminophen (Acetaminophen 325 Mg Tablet) 650 mg PO Q6H PRN PRN Reason: Headache/Pain Mild Scale (1-3) Last Admin: 04/29/23 23:14 Dose: 650 mg Al Hydroxide/Mg Hydroxide (Magnesium Hydrox/Alum Hydrox 30 Ml Oral.Susp) 30 ml PO Q6H PRN PRN Reason: Heartburn/Nausea Atorvastatin Calcium (Atorvastatin Calcium 40 Mg Tablet) 40 mg PO DAILY [facility] Last Admin: 05/06/23 08:17 Dose: 40 mg Dextrose (Dextrose 50 % 25 Gm/50 Ml Syringe) 25 gm IVPUSH Q15M PRN; Protocol PRN Reason: per Hypoglycemia Standing Ord. Donepezil HCl (Donepezil Hcl 5 Mg Tablet) 5 mg PO DAILY [facility] Last Admin: 05/06/23 08:17 Dose: 5 mg Empagliflozin (Empagliflozin 25 Mg Tablet) 25 mg PO DAILY [facility] Last Admin: 05/06/23 08:17 Dose: 25 mg Famotidine (Famotidine 20 Mg Tablet) 20 mg PO DAILY [facility] Last Admin: 05/06/23 08:16 Dose: 20 mg Glucose (Glucose Gel 15 Gm Gel..Gram.) 15 gm PO Q15M PRN; Protocol PRN Reason: per Hypoglycemia Standing Ord. Insulin Human Lispro (Insulin Lispro 100 Unit/Ml 3 Ml Vial) 0 unit SUBCUT QIDACHS [facility]; Protocol Last Admin: 05/06/23 12:18 Dose: 4 unit Magnesium Hydroxide (Milk Of Magnesia 30 Ml Oral.Susp) 30 ml PO DAILY PRN PRN Reason: Constipation Metformin HCl (Metformin Hcl 1,000 Mg Tablet) 1,000 mg PO BID [facility] Last Admin: 05/06/23 08:17 Dose: 1,000 mg Olanzapine (Olanzapine 5 Mg Tablet) 5 mg PO BEDTIME [facility] Last Admin: 05/05/23 20:16 Dose: 5 mg Olanzapine (Olanzapine 2.5 Mg Tablet) 2.5 mg PO Q4H PRN PRN Reason: anxiety/agitation Last Admin: 04/29/23 17:17 Dose: 2.5 mg Omeprazole (Omeprazole 20 Mg Capsule.Dr) 20 mg PO DAILY [facility] Last Admin: 05/06/23 08:17 Dose: 20 mg Prednisone (Prednisone 20 Mg Tablet) 20 mg PO BID [facility] Last Admin: 05/06/23 08:17 Dose: 20 mg Sertraline HCl (Sertraline Hcl 50 Mg Tablet) 50 mg PO DAILY [facility] Last Admin: 05/06/23 08:17 Dose: 50 mg Trazodone HCl (Trazodone Hcl 50 Mg Tablet) 50 mg PO BEDTIME MRX1 PRN PRN Reason: Insomnia Last Admin: 05/03/23 21:35 Dose: 50 mg Allergies Allergies Allergy/AdvReac Type Severity Reaction Status Date / Time No Known Allergies Allergy Verified 03/23/23 18:13 Assessment & Plan Assessment & Plan (1) Dementia: Status: Acute Code(s): F03.90 - Unspecified dementia, unspecified severity, without behavioral disturbance, psychotic disturbance, mood disturbance, and anxiety Assessment and Plan: 57 years old woman with somewhat rapidly progressing dementia or symptoms of dementia with CSF protein of 88 but otherwise no definite clue about her diagnosis. I discussed the case with neurology service at [facility] and they suggested that the workup has been appropriate and thorough and it was not clear if any further investigations were needed. Also, they did not have beds available for transfer According to their experience, this level of CSF protein could be seen and degenerative disorders but could also be seen in some type of spine pathology, which we have not investigated. In any case, high CSF protein without elevation of cells and without any significant brain lesions on MRI, does not suggest malignancy or vasculitis type of pathology. 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 Some CSF tests are pending which may confirm this notion. PET scan can also help. On the other hand, further CSF analysis and investigations for vasculitis like brain biopsy are not warranted. As far as treatment of dementia is concerned, it is symptomatic. I would start with donepezil 5 mg daily and after a week would add memantine 5 mg twice a day. These are the 2 types of medicines available at this time. Finally, her placement could be an issue as she would not be able to live independently Plan 05/05/23 Pt with gross disorganiztion b sister give hx of more gradual detioration neuro note reviewed chart reviewed start aricept some csf results pending consider pet if available 05/06/2023: No changes to current treatment plan. Treatment team working on complex disposition which may include instituted living in [place] Reason for continued inpatient stay Substantial Risk for: inability to function Time Spent With Patient Time: Total time managing care of this patient today ____ minutes.
[2023-05-06 18:00] VITALS: BP 160/77; PULSE 64; RESP 16; TEMP 36.6; O2SAT 97
[2023-05-06] MEDS: Acetaminophen 325 MG TABLET 650 MG PO (20:10)
[2023-05-06] MEDS: OLANZapine 5 MG TABLET PO (20:10)
[2023-05-07 06:00] VITALS: BP 113/66; PULSE 53; RESP 16; TEMP 36.4; O2SAT 96
[2023-05-07] MEDS: Sertraline HCL 50 MG TABLET PO (08:00)
[2023-05-07] MEDS: Atorvastatin Calcium 40 MG TABLET PO (08:00)
[2023-05-07] MEDS: Omeprazole 20 MG CAPSULE.DR PO (08:00)
[2023-05-07] MEDS: Famotidine 20 MG TABLET PO (08:00)
[2023-05-07] MEDS: Empagliflozin 25 MG TABLET PO (08:00)
[2023-05-07] MEDS: predniSONE 20 MG TABLET PO ×2 (08:00→20:33)
[2023-05-07] MEDS: Donepezil HCl 5 MG TABLET PO (08:00)
[2023-05-07] MEDS: metFORMIN HCl 1,000 MG TABLET 1000 MG PO ×2 (08:00→20:33)
[2023-05-07] MEDS: Insulin Lispro 100 UNIT/ML 3 ML VIAL SUBCUT ×4 (08:53→20:43)
--- NOTE | 2023-05-07 13:40 | HO.PSYCHPN ---
Subjective Subjective Date of Service: 05/07/23 Reason For Visit: hallucinations confusion Subjective Notes: Conditional Voluntary Medical Problems Affecting Mental Status: No Interim History: met with patient. Discussed with Nursing. Remains on one-to-one observation due to confusion and wandering. Pleasant. Adherent with medications. Today with chief underwriter very pleasant. Is aware that she has memory issues. Does report feeling safe. Sleep okay. Denies any medication concerns. Feels supported by staff. Denies depression. Medication Compliance: Yes Side effects from medications: No Attending Groups: Intermittent Review of Systems Acute medical concerns: No Review of Systems Review of Systems Yes Unobtainable due to mental status Mental Status Exam Mental Status Exam Narrative: calm, cooperative, general PMR. good eye contact, speech nml rate, soft, decr prosody, decr amount. thoughts generally linear/relevant interchange; paucity of thought; confabulation. affect constricted, blunted non-labile. no SI/SIBI/HI/AVH expressed. gross cognitive impairment. slowed processing gait ok. Insight and judgment limited Diagnostics Vital Signs (24Hr): Vital Signs - 24 hr 05/06/23 18:00 05/07/23 06:00 Temperature 97.9 F 97.6 F Pulse Rate 64 53 Respiratory Rate 16 16 Blood Pressure 160/77 H 113/66 Pulse Oximetry 97 96 Oxygen Delivery Method Room Air Room Air BMI result Body Mass Index 30.2 Labs 04/08/23 09:08 05/06/23 08:09 Labs: Laboratory Results - last 48 hr 04/18/23 05/05/23 05/05/23 11:58 17:20 20:09 Sodium Potassium Chloride Carbon Dioxide Anion Gap BUN Creatinine Estim Creat Clear Calc Estimated GFR POC Glucose 170 H 231 H Random Glucose Calcium CSF Anti-Neuronal Ab WB TNP CSF Anti-Neuronal Titer TNP 05/06/23 05/06/23 05/06/23 08:09 08:10 11:59 Sodium 141 Potassium 4.8 Chloride 103 Carbon Dioxide 27 Anion Gap 16 BUN 22 H Creatinine 0.87 Estim Creat Clear Calc 68.4 Estimated GFR > 60 POC Glucose 213 H 248 H Random Glucose 203 H Calcium 10.0 CSF Anti-Neuronal Ab WB CSF Anti-Neuronal Titer 05/06/23 05/06/23 05/07/23 17:06 20:13 08:04 Sodium Potassium Chloride Carbon Dioxide Anion Gap BUN Creatinine Estim Creat Clear Calc Estimated GFR POC Glucose 338 H 202 H 189 H Random Glucose Calcium CSF Anti-Neuronal Ab WB CSF Anti-Neuronal Titer 05/07/23 12:35 Sodium Potassium Chloride Carbon Dioxide Anion Gap BUN Creatinine Estim Creat Clear Calc Estimated GFR POC Glucose 209 H Random Glucose Calcium CSF Anti-Neuronal Ab WB CSF Anti-Neuronal Titer Imaging Radiology Impressions: ITS Impressions Brain MRI 04/03/23 15:30 IMPRESSION: No acute infarct, mass lesion, intracranial hemorrhage, or evidence of hydrocephalus. Mild nonspecific T2/FLAIR hyperintensity in the cerebral white matter and danny presumably on the basis of chronic microangiopathy. Medications Medications Current Medications Acetaminophen (Acetaminophen 325 Mg Tablet) 650 mg PO Q6H PRN PRN Reason: Headache/Pain Mild Scale (1-3) Last Admin: 05/06/23 20:10 Dose: 650 mg Al Hydroxide/Mg Hydroxide (Magnesium Hydrox/Alum Hydrox 30 Ml Oral.Susp) 30 ml PO Q6H PRN PRN Reason: Heartburn/Nausea Atorvastatin Calcium (Atorvastatin Calcium 40 Mg Tablet) 40 mg PO DAILY [facility] Last Admin: 05/07/23 08:00 Dose: 40 mg Dextrose (Dextrose 50 % 25 Gm/50 Ml Syringe) 25 gm IVPUSH Q15M PRN; Protocol PRN Reason: per Hypoglycemia Standing Ord. Donepezil HCl (Donepezil Hcl 5 Mg Tablet) 5 mg PO DAILY [facility] Last Admin: 05/07/23 08:00 Dose: 5 mg Empagliflozin (Empagliflozin 25 Mg Tablet) 25 mg PO DAILY [facility] Last Admin: 05/07/23 08:00 Dose: 25 mg Famotidine (Famotidine 20 Mg Tablet) 20 mg PO DAILY [facility] Last Admin: 05/07/23 08:00 Dose: 20 mg Glucose (Glucose Gel 15 Gm Gel..Gram.) 15 gm PO Q15M PRN; Protocol PRN Reason: per Hypoglycemia Standing Ord. Insulin Human Lispro (Insulin Lispro 100 Unit/Ml 3 Ml Vial) 0 unit SUBCUT QIDACHS [facility]; Protocol Last Admin: 05/07/23 12:41 Dose: 4 unit Magnesium Hydroxide (Milk Of Magnesia 30 Ml Oral.Susp) 30 ml PO DAILY PRN PRN Reason: Constipation Metformin HCl (Metformin Hcl 1,000 Mg Tablet) 1,000 mg PO BID [facility] Last Admin: 05/07/23 08:00 Dose: 1,000 mg Olanzapine (Olanzapine 5 Mg Tablet) 5 mg PO BEDTIME [facility] Last Admin: 05/06/23 20:10 Dose: 5 mg Olanzapine (Olanzapine 2.5 Mg Tablet) 2.5 mg PO Q4H PRN PRN Reason: anxiety/agitation Last Admin: 04/29/23 17:17 Dose: 2.5 mg Omeprazole (Omeprazole 20 Mg Capsule.Dr) 20 mg PO DAILY [facility] Last Admin: 05/07/23 08:00 Dose: 20 mg Prednisone (Prednisone 20 Mg Tablet) 20 mg PO BID [facility] Last Admin: 05/07/23 08:00 Dose: 20 mg Sertraline HCl (Sertraline Hcl 50 Mg Tablet) 50 mg PO DAILY [facility] Last Admin: 05/07/23 08:00 Dose: 50 mg Trazodone HCl (Trazodone Hcl 50 Mg Tablet) 50 mg PO BEDTIME MRX1 PRN PRN Reason: Insomnia Last Admin: 05/03/23 21:35 Dose: 50 mg Allergies Allergies Allergy/AdvReac Type Severity Reaction Status Date / Time No Known Allergies Allergy Verified 03/23/23 18:13 Assessment & Plan Assessment & Plan (1) Dementia: Status: Acute Code(s): F03.90 - Unspecified dementia, unspecified severity, without behavioral disturbance, psychotic disturbance, mood disturbance, and anxiety Assessment and Plan: 57 years old woman with somewhat rapidly progressing dementia or symptoms of dementia with CSF protein of 88 but otherwise no definite clue about her diagnosis. I discussed the case with neurology service at [facility] and they suggested that the workup has been appropriate and thorough and it was not clear if any further investigations were needed. Also, they did not have beds available for transfer According to their experience, this level of CSF protein could be seen and degenerative disorders but could also be seen in some type of spine pathology, which we have not investigated. In any case, high CSF protein without elevation of cells and without any significant brain lesions on MRI, does not suggest malignancy or vasculitis type of pathology. 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 Some CSF tests are pending which may confirm this notion. PET scan can also help. On the other hand, further CSF analysis and investigations for vasculitis like brain biopsy are not warranted. As far as treatment of dementia is concerned, it is symptomatic. I would start with donepezil 5 mg daily and after a week would add memantine 5 mg twice a day. These are the 2 types of medicines available at this time. Finally, her placement could be an issue as she would not be able to live independently Plan 05/05/23 Pt with gross disorganiztion b sister give hx of more gradual detioration neuro note reviewed chart reviewed start aricept some csf results pending consider pet if available 05/07/2023: No changes to current treatment plan. Treatment team working on complex disposition which may include instituted living in [place] Reason for continued inpatient stay Substantial Risk for: inability to function Time Spent With Patient Time: Total time managing care of this patient today ____ minutes.
[2023-05-07 18:00] VITALS: BP 146/69; PULSE 54; RESP 18; TEMP 36.4; O2SAT 97
[2023-05-07] MEDS: OLANZapine 5 MG TABLET PO (20:33)
--- NOTE | 2023-05-08 03:25 | PC.NURSE ---
Jessy is noted to be visibly brighter and more engaged this evening. she denies all psychiatric symptoms and when asked if she thought her mind was clearer he stated that she did. no mood liability noted this evening. HS blood sugar 216 4units of coverage given in right upper arm. monitor for safety, patient remains 1:1 on days and evenings, she is Q5 minute checks from 11pm-7am. no behavioral concerns, continue Plan of Care
[2023-05-08 08:15] VITALS: BP 121/68; PULSE 60; RESP 18; TEMP 36.4; O2SAT 96
[2023-05-08] MEDS: Insulin Lispro 100 UNIT/ML 3 ML VIAL SUBCUT ×4 (09:10→20:52)
[2023-05-08] MEDS: Famotidine 20 MG TABLET PO (09:11)
[2023-05-08] MEDS: Atorvastatin Calcium 40 MG TABLET PO (09:12)
[2023-05-08] MEDS: predniSONE 20 MG TABLET PO ×2 (09:12→20:54)
[2023-05-08] MEDS: Donepezil HCl 5 MG TABLET PO (09:12)
[2023-05-08] MEDS: Omeprazole 20 MG CAPSULE.DR PO (09:12)
[2023-05-08] MEDS: metFORMIN HCl 1,000 MG TABLET 1000 MG PO ×2 (09:13→20:54)
[2023-05-08] MEDS: Empagliflozin 25 MG TABLET PO (09:13)
[2023-05-08] MEDS: Sertraline HCL 50 MG TABLET PO (09:13)
--- NOTE | 2023-05-08 09:31 | HO.PSYCHPN ---
Subjective Subjective Date of Service: 05/08/23 Reason For Visit: hallucinations confusion Subjective Notes: Conditional Voluntary Interim History: Pt now on 5 minutes checks as less disorganized. Pt reports she feels better in that she is able to walk better. Pt reports she was admitted because of memory problems. She is not sure how long she has been here. She is unable to tell name of hospital. She reports she thinks is June. She does know year is 2022. Still showing significant difficulty with executive function when asked to draw clock. Per nursing, pt slept through the night, seemed less confused. Medication Compliance: Yes Review of Systems Review of Systems No seizure or similar episode no stroke-like symptoms Yes all other systems are reviewed and are negative and Unobtainable due to mental status Constitutional: Reports as per HPI, Denies chills, Denies fatigue, Denies fever(s) and Denies headache(s) Denies headache(s) Cardiovascular: Denies chest pain and Denies dyspnea Respiratory: Denies cough and Denies dyspnea Gastrointestinal: Denies abdominal pain, Denies constipation and Denies vomiting Denies headache(s) and Denies focal weakness Psychiatric: Denies auditory hallucinations, Reports hallucinations (Per the patient's daughter. Patient denies this), Denies tactile hallucinations and Denies suicidal ideation Endocrine: Denies fatigue Mental Status Exam Mental Status Exam Narrative: calm, cooperative, general PMR. good eye contact, speech nml rate, soft, decr prosody, decr amount. thoughts generally linear/relevant interchange; paucity of thought; confabulation. affect constricted, blunted non-labile. no SI/SIBI/HI/AVH expressed. gross cognitive impairment. slowed processing gait ok. Insight and judgment limited Diagnostics Vital Signs (24Hr): Vital Signs - 24 hr 05/07/23 18:00 05/08/23 08:15 Temperature 97.6 F 97.6 F Pulse Rate 54 60 Respiratory Rate 18 18 Blood Pressure 146/69 H 121/68 Pulse Oximetry 97 96 Oxygen Delivery Method Room Air Room Air BMI result Body Mass Index 30.2 Labs 04/08/23 09:08 05/06/23 08:09 Labs: Laboratory Results - last 48 hr 04/18/23 05/06/23 05/06/23 11:58 11:59 17:06 POC Glucose 248 H 338 H CSF Anti-Neuronal Ab WB TNP CSF Anti-Neuronal Titer TNP 07/01/23 07/02/23 07/02/23 20:13 08:04 12:35 POC Glucose 202 H 189 H 209 H CSF Anti-Neuronal Ab WB CSF Anti-Neuronal Titer 05/07/23 05/07/23 05/08/23 17:19 20:32 08:25 POC Glucose 159 H 216 H 194 H CSF Anti-Neuronal Ab WB CSF Anti-Neuronal Titer Imaging Radiology Impressions: ITS Impressions Brain MRI 04/03/23 15:30 IMPRESSION: No acute infarct, mass lesion, intracranial hemorrhage, or evidence of hydrocephalus. Mild nonspecific T2/FLAIR hyperintensity in the cerebral white matter and danny presumably on the basis of chronic microangiopathy. Medications Medications Current Medications Acetaminophen (Acetaminophen 325 Mg Tablet) 650 mg PO Q6H PRN PRN Reason: Headache/Pain Mild Scale (1-3) Last Admin: 05/06/23 20:10 Dose: 650 mg Al Hydroxide/Mg Hydroxide (Magnesium Hydrox/Alum Hydrox 30 Ml Oral.Susp) 30 ml PO Q6H PRN PRN Reason: Heartburn/Nausea Atorvastatin Calcium (Atorvastatin Calcium 40 Mg Tablet) 40 mg PO DAILY [facility] Last Admin: 05/08/23 09:12 Dose: 40 mg Dextrose (Dextrose 50 % 25 Gm/50 Ml Syringe) 25 gm IVPUSH Q15M PRN; Protocol PRN Reason: per Hypoglycemia Standing Ord. Donepezil HCl (Donepezil Hcl 5 Mg Tablet) 5 mg PO DAILY [facility] Last Admin: 05/08/23 09:12 Dose: 5 mg Empagliflozin (Empagliflozin 25 Mg Tablet) 25 mg PO DAILY [facility] Last Admin: 05/08/23 09:13 Dose: 25 mg Famotidine (Famotidine 20 Mg Tablet) 20 mg PO DAILY [facility] Last Admin: 05/08/23 09:11 Dose: 20 mg Glucose (Glucose Gel 15 Gm Gel..Gram.) 15 gm PO Q15M PRN; Protocol PRN Reason: per Hypoglycemia Standing Ord. Insulin Human Lispro (Insulin Lispro 100 Unit/Ml 3 Ml Vial) 0 unit SUBCUT QIDACHS [facility]; Protocol Last Admin: 05/08/23 09:10 Dose: 2 unit Magnesium Hydroxide (Milk Of Magnesia 30 Ml Oral.Susp) 30 ml PO DAILY PRN PRN Reason: Constipation Metformin HCl (Metformin Hcl 1,000 Mg Tablet) 1,000 mg PO BID [facility] Last Admin: 05/08/23 09:13 Dose: 1,000 mg Olanzapine (Olanzapine 5 Mg Tablet) 5 mg PO BEDTIME [facility] Last Admin: 05/07/23 20:33 Dose: 5 mg Olanzapine (Olanzapine 2.5 Mg Tablet) 2.5 mg PO Q4H PRN PRN Reason: anxiety/agitation Last Admin: 04/29/23 17:17 Dose: 2.5 mg Omeprazole (Omeprazole 20 Mg Capsule.Dr) 20 mg PO DAILY [facility] Last Admin: 05/08/23 09:12 Dose: 20 mg Prednisone (Prednisone 20 Mg Tablet) 20 mg PO BID [facility] Last Admin: 05/08/23 09:12 Dose: 20 mg Sertraline HCl (Sertraline Hcl 50 Mg Tablet) 50 mg PO DAILY [facility] Last Admin: 05/08/23 09:13 Dose: 50 mg Trazodone HCl (Trazodone Hcl 50 Mg Tablet) 50 mg PO BEDTIME MRX1 PRN PRN Reason: Insomnia Last Admin: 05/03/23 21:35 Dose: 50 mg Allergies Allergies Allergy/AdvReac Type Severity Reaction Status Date / Time No Known Allergies Allergy Verified 03/23/23 18:13 Assessment & Plan Assessment & Plan (1) Dementia: Status: Acute Code(s): F03.90 - Unspecified dementia, unspecified severity, without behavioral disturbance, psychotic disturbance, mood disturbance, and anxiety Assessment and Plan: 57 years old woman with somewhat rapidly progressing dementia or symptoms of dementia with CSF protein of 88 but otherwise no definite clue about her diagnosis. I discussed the case with neurology service at [facility] and they suggested that the workup has been appropriate and thorough and it was not clear if any further investigations were needed. Also, they did not have beds available for transfer According to their experience, this level of CSF protein could be seen and degenerative disorders but could also be seen in some type of spine pathology, which we have not investigated. In any case, high CSF protein without elevation of cells and without any significant brain lesions on MRI, does not suggest malignancy or vasculitis type of pathology. 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 Some CSF tests are pending which may confirm this notion. PET scan can also help. On the other hand, further CSF analysis and investigations for vasculitis like brain biopsy are not warranted. As far as treatment of dementia is concerned, it is symptomatic. I would start with donepezil 5 mg daily and after a week would add memantine 5 mg twice a day. These are the 2 types of medicines available at this time. Finally, her placement could be an issue as she would not be able to live independently Plan 05/05/23 Pt with gross disorganiztion b sister give hx of more gradual detioration neuro note reviewed chart reviewed start aricept some csf results pending consider pet if available 05/07/2023: No changes to current treatment plan. Treatment team working on complex disposition which may include instituted living in [place] 05/08 continue tx. Reason for continued inpatient stay Substantial Risk for: inability to function Time Spent With Patient Time: Total time managing care of this patient today ____ minutes.
[2023-05-08 18:00] VITALS: BP 123/62; PULSE 65; RESP 18; TEMP 36.3; O2SAT 94
[2023-05-08] MEDS: OLANZapine 5 MG TABLET PO (20:53)
--- NOTE | 2023-05-08 22:02 | PC.NURSE ---
Jessy is brighter with good eye contact, she states that she feels her mentation is clearer her HS blood sugar was 177. 2 units of humolog given in right upper arm. she denies depression/anxiety, suicidal/homicidal ideation and auditory/visual hallucinations. no behavioral concern, monitor for safety, continue Plan of Care
[2023-05-09 08:52] VITALS: BP 137/74; PULSE 60; RESP 18; TEMP 36.1; O2SAT 98
[2023-05-09] MEDS: Insulin Lispro 100 UNIT/ML 3 ML VIAL SUBCUT ×4 (09:08→20:49)
[2023-05-09] MEDS: Omeprazole 20 MG CAPSULE.DR PO (09:10)
[2023-05-09] MEDS: Donepezil HCl 5 MG TABLET PO (09:10)
[2023-05-09] MEDS: Famotidine 20 MG TABLET PO (09:11)
[2023-05-09] MEDS: metFORMIN HCl 1,000 MG TABLET 1000 MG PO ×2 (09:11→20:50)
[2023-05-09] MEDS: Atorvastatin Calcium 40 MG TABLET PO (09:11)
[2023-05-09] MEDS: predniSONE 20 MG TABLET PO ×2 (09:12→20:51)
[2023-05-09] MEDS: Empagliflozin 25 MG TABLET PO (09:12)
[2023-05-09] MEDS: Sertraline HCL 50 MG TABLET PO (09:12)
--- NOTE | 2023-05-09 11:55 | HO.PSYCHPN ---
Subjective Subjective Date of Service: 05/09/23 Reason For Visit: hallucinations confusion Subjective Notes: Conditional Voluntary Interim History: Pt reports sleeping and eating well. No SI/HI. Pt able to tell she is here for memory problems. She did not remember date, not oriented to month. Per nursing, no behavioral concerns. Medication Compliance: Yes Review of Systems Review of Systems No seizure or similar episode no stroke-like symptoms Yes all other systems are reviewed and are negative and Unobtainable due to mental status Constitutional: Reports as per HPI, Denies chills, Denies fatigue, Denies fever(s) and Denies headache(s) Denies headache(s) Cardiovascular: Denies chest pain and Denies dyspnea Respiratory: Denies cough and Denies dyspnea Gastrointestinal: Denies abdominal pain, Denies constipation and Denies vomiting Denies headache(s) and Denies focal weakness Psychiatric: Denies auditory hallucinations, Reports hallucinations (Per the patient's daughter. Patient denies this), Denies tactile hallucinations and Denies suicidal ideation Endocrine: Denies fatigue Mental Status Exam Mental Status Exam Narrative: calm, cooperative, general PMR. good eye contact, speech nml rate, soft, decr prosody, decr amount. thoughts generally linear/relevant interchange; paucity of thought; confabulation. affect constricted, blunted non-labile. no SI/SIBI/HI/AVH expressed. gross cognitive impairment. slowed processing gait ok. Insight and judgment limited Diagnostics Vital Signs (24Hr): Vital Signs - 24 hr 05/08/23 18:00 05/09/23 08:52 Temperature 97.4 F 97.0 F Pulse Rate 65 60 Respiratory Rate 18 18 Blood Pressure 123/62 137/74 Pulse Oximetry 94 98 Oxygen Delivery Method Room Air Room Air BMI result Body Mass Index 30.2 Labs 04/08/23 09:08 05/06/23 08:09 Labs: Laboratory Results - last 48 hr 05/07/23 05/07/23 05/07/23 08:04 12:35 17:19 POC Glucose 189 H 209 H 159 H 05/07/23 05/08/23 05/08/23 20:32 08:25 12:53 POC Glucose 216 H 194 H 168 H 05/08/23 05/08/23 05/09/23 17:36 20:27 08:09 POC Glucose 219 H 177 H 170 H Imaging Radiology Impressions: ITS Impressions Brain MRI 04/03/23 15:30 IMPRESSION: No acute infarct, mass lesion, intracranial hemorrhage, or evidence of hydrocephalus. Mild nonspecific T2/FLAIR hyperintensity in the cerebral white matter and danny presumably on the basis of chronic microangiopathy. Medications Medications Current Medications Acetaminophen (Acetaminophen 325 Mg Tablet) 650 mg PO Q6H PRN PRN Reason: Headache/Pain Mild Scale (1-3) Last Admin: 05/06/23 20:10 Dose: 650 mg Al Hydroxide/Mg Hydroxide (Magnesium Hydrox/Alum Hydrox 30 Ml Oral.Susp) 30 ml PO Q6H PRN PRN Reason: Heartburn/Nausea Atorvastatin Calcium (Atorvastatin Calcium 40 Mg Tablet) 40 mg PO DAILY [facility] Last Admin: 05/09/23 09:11 Dose: 40 mg Dextrose (Dextrose 50 % 25 Gm/50 Ml Syringe) 25 gm IVPUSH Q15M PRN; Protocol PRN Reason: per Hypoglycemia Standing Ord. Donepezil HCl (Donepezil Hcl 5 Mg Tablet) 5 mg PO DAILY [facility] Last Admin: 05/09/23 09:10 Dose: 5 mg Empagliflozin (Empagliflozin 25 Mg Tablet) 25 mg PO DAILY [facility] Last Admin: 05/09/23 09:12 Dose: 25 mg Famotidine (Famotidine 20 Mg Tablet) 20 mg PO DAILY [facility] Last Admin: 05/09/23 09:11 Dose: 20 mg Glucose (Glucose Gel 15 Gm Gel..Gram.) 15 gm PO Q15M PRN; Protocol PRN Reason: per Hypoglycemia Standing Ord. Insulin Human Lispro (Insulin Lispro 100 Unit/Ml 3 Ml Vial) 0 unit SUBCUT QIDACHS [facility]; Protocol Last Admin: 05/09/23 09:08 Dose: 2 unit Magnesium Hydroxide (Milk Of Magnesia 30 Ml Oral.Susp) 30 ml PO DAILY PRN PRN Reason: Constipation Metformin HCl (Metformin Hcl 1,000 Mg Tablet) 1,000 mg PO BID [facility] Last Admin: 05/09/23 09:11 Dose: 1,000 mg Olanzapine (Olanzapine 5 Mg Tablet) 5 mg PO BEDTIME [facility] Last Admin: 05/08/23 20:53 Dose: 5 mg Olanzapine (Olanzapine 2.5 Mg Tablet) 2.5 mg PO Q4H PRN PRN Reason: anxiety/agitation Last Admin: 04/29/23 17:17 Dose: 2.5 mg Omeprazole (Omeprazole 20 Mg Capsule.) 20 mg PO DAILY [facility] Last Admin: 05/09/23 09:10 Dose: 20 mg Prednisone (Prednisone 20 Mg Tablet) 20 mg PO BID [facility] Last Admin: 05/09/23 09:12 Dose: 20 mg Sertraline HCl (Sertraline Hcl 50 Mg Tablet) 50 mg PO DAILY [facility] Last Admin: 05/09/23 09:12 Dose: 50 mg Trazodone HCl (Trazodone Hcl 50 Mg Tablet) 50 mg PO BEDTIME MRX1 PRN PRN Reason: Insomnia Last Admin: 05/03/23 21:35 Dose: 50 mg Allergies Allergies Allergy/AdvReac Type Severity Reaction Status Date / Time No Known Allergies Allergy Verified 03/23/23 18:13 Assessment & Plan Assessment & Plan (1) Dementia: Status: Acute Code(s): F03.90 - Unspecified dementia, unspecified severity, without behavioral disturbance, psychotic disturbance, mood disturbance, and anxiety Assessment and Plan: 57 years old woman with somewhat rapidly progressing dementia or symptoms of dementia with CSF protein of 88 but otherwise no definite clue about her diagnosis. I discussed the case with neurology service at [facility] and they suggested that the workup has been appropriate and thorough and it was not clear if any further investigations were needed. Also, they did not have beds available for transfer According to their experience, this level of CSF protein could be seen and degenerative disorders but could also be seen in some type of spine pathology, which we have not investigated. In any case, high CSF protein without elevation of cells and without any significant brain lesions on MRI, does not suggest malignancy or vasculitis type of pathology. 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 Some CSF tests are pending which may confirm this notion. PET scan can also help. On the other hand, further CSF analysis and investigations for vasculitis like brain biopsy are not warranted. As far as treatment of dementia is concerned, it is symptomatic. I would start with donepezil 5 mg daily and after a week would add memantine 5 mg twice a day. These are the 2 types of medicines available at this time. Finally, her placement could be an issue as she would not be able to live independently Plan 05/05/23 Pt with gross disorganiztion b sister give hx of more gradual detioration neuro note reviewed chart reviewed start aricept some csf results pending consider pet if available 05/07/2023: No changes to current treatment plan. Treatment team working on complex disposition which may include instituted living in [place] 05/08 continue tx. 05/09 continue tx. Reason for continued inpatient stay Substantial Risk for: inability to function Time Spent With Patient Time: Total time managing care of this patient today ____ minutes.
[2023-05-09 19:21] VITALS: BP 148/69; PULSE 65; RESP 18; TEMP 36.1; O2SAT 100
[2023-05-09] MEDS: OLANZapine 5 MG TABLET PO (20:51)
[2023-05-10 08:01] VITALS: BP 143/73; PULSE 64; RESP 17; TEMP 36.2; O2SAT 100
[2023-05-10] MEDS: Omeprazole 20 MG CAPSULE.DR PO (08:57)
[2023-05-10] MEDS: metFORMIN HCl 1,000 MG TABLET 1000 MG PO ×2 (08:57→20:47)
[2023-05-10] MEDS: Atorvastatin Calcium 40 MG TABLET PO (08:57)
[2023-05-10] MEDS: Sertraline HCL 50 MG TABLET PO (08:58)
[2023-05-10] MEDS: predniSONE 20 MG TABLET PO (08:58)
[2023-05-10] MEDS: Donepezil HCl 5 MG TABLET PO (08:58)
[2023-05-10] MEDS: Empagliflozin 25 MG TABLET PO (08:59)
[2023-05-10] MEDS: Famotidine 20 MG TABLET PO (08:59)
[2023-05-10] MEDS: Insulin Lispro 100 UNIT/ML 3 ML VIAL SUBCUT ×4 (09:17→20:47)
--- NOTE | 2023-05-10 14:00 | HO.PSYCHPN ---
Subjective Subjective Date of Service: 05/10/23 Reason For Visit: hallucinations confusion Interim History: no change in presentation over the weekend. crying [place] [facility] bed saying she wants to go home. no other requests or complaints. per stsff, attending groups. pacing. no SI/HI. sleeping well. started on donepezil 5 mg daily. Mental Status Exam Mental Status Exam Narrative: calm, cooperative, diminutive. disheveled. general PMR. fair eye contact, speech nml rate, soft, decr prosody, decr amount. thoughts linear/relevant interchange; paucity of thought; confabulation. affect constricted, hypo-intense, non-labile. no SI/SIBI/HI/AVH expressed. gross cognitive impairment. Diagnostics Vital Signs (24Hr): Vital Signs - 24 hr 05/09/23 19:21 05/10/23 08:01 Temperature 96.9 F 97.1 F Pulse Rate 65 64 Respiratory Rate 18 17 Blood Pressure 148/69 H 143/73 H Pulse Oximetry 100 100 Oxygen Delivery Method Room Air Room Air BMI result Body Mass Index 30.2 Labs 04/08/23 09:08 05/06/23 08:09 Labs: Laboratory Results - last 48 hr 04/18/23 04/18/23 05/08/23 11:58 11:58 17:36 POC Glucose 219 H Ref Lab Test Result SEE NOTE SEE NOTE 05/08/23 05/09/23 05/09/23 20:27 08:09 12:05 POC Glucose 177 H 170 H 248 H Ref Lab Test Result 05/09/23 05/09/23 05/10/23 17:03 20:37 08:44 POC Glucose 282 H 217 H 225 H Ref Lab Test Result 05/10/23 12:05 POC Glucose 220 H Ref Lab Test Result Imaging Radiology Impressions: ITS Impressions Brain MRI 04/03/23 15:30 IMPRESSION: No acute infarct, mass lesion, intracranial hemorrhage, or evidence of hydrocephalus. Mild nonspecific T2/FLAIR hyperintensity in the cerebral white matter and danny presumably on the basis of chronic microangiopathy. Medications Medications Current Medications Acetaminophen (Acetaminophen 325 Mg Tablet) 650 mg PO Q6H PRN PRN Reason: Headache/Pain Mild Scale (1-3) Last Admin: 05/06/23 20:10 Dose: 650 mg Al Hydroxide/Mg Hydroxide (Magnesium Hydrox/Alum Hydrox 30 Ml Oral.Susp) 30 ml PO Q6H PRN PRN Reason: Heartburn/Nausea Atorvastatin Calcium (Atorvastatin Calcium 40 Mg Tablet) 40 mg PO DAILY [facility] Last Admin: 05/10/23 08:57 Dose: 40 mg Dextrose (Dextrose 50 % 25 Gm/50 Ml Syringe) 25 gm IVPUSH Q15M PRN; Protocol PRN Reason: per Hypoglycemia Standing Ord. Donepezil HCl (Donepezil Hcl 5 Mg Tablet) 5 mg PO DAILY [facility] Last Admin: 05/10/23 08:58 Dose: 5 mg Empagliflozin (Empagliflozin 25 Mg Tablet) 25 mg PO DAILY [facility] Last Admin: 05/10/23 08:59 Dose: 25 mg Famotidine (Famotidine 20 Mg Tablet) 20 mg PO DAILY [facility] Last Admin: 05/10/23 08:59 Dose: 20 mg Glucose (Glucose Gel 15 Gm Gel..Gram.) 15 gm PO Q15M PRN; Protocol PRN Reason: per Hypoglycemia Standing Ord. Insulin Human Lispro (Insulin Lispro 100 Unit/Ml 3 Ml Vial) 0 unit SUBCUT QIDACHS [facility]; Protocol Last Admin: 05/10/23 12:42 Dose: 4 unit Magnesium Hydroxide (Milk Of Magnesia 30 Ml Oral.Susp) 30 ml PO DAILY PRN PRN Reason: Constipation Metformin HCl (Metformin Hcl 1,000 Mg Tablet) 1,000 mg PO BID [facility] Last Admin: 05/10/23 08:57 Dose: 1,000 mg Olanzapine (Olanzapine 5 Mg Tablet) 5 mg PO BEDTIME [facility] Last Admin: 05/09/23 20:51 Dose: 5 mg Olanzapine (Olanzapine 2.5 Mg Tablet) 2.5 mg PO Q4H PRN PRN Reason: anxiety/agitation Last Admin: 04/29/23 17:17 Dose: 2.5 mg Omeprazole (Omeprazole 20 Mg Capsule.Dr) 20 mg PO DAILY [facility] Last Admin: 05/10/23 08:57 Dose: 20 mg Prednisone (Prednisone 20 Mg Tablet) 20 mg PO BID [facility] Last Admin: 05/10/23 08:58 Dose: 20 mg Sertraline HCl (Sertraline Hcl 50 Mg Tablet) 50 mg PO DAILY [facility] Last Admin: 05/10/23 08:58 Dose: 50 mg Trazodone HCl (Trazodone Hcl 50 Mg Tablet) 50 mg PO BEDTIME MRX1 PRN PRN Reason: Insomnia Last Admin: 05/03/23 21:35 Dose: 50 mg Allergies Allergies Allergy/AdvReac Type Severity Reaction Status Date / Time No Known Allergies Allergy Verified 03/23/23 18:13 Assessment & Plan Assessment & Plan (1) Dementia: Status: Acute Code(s): F03.90 - Unspecified dementia, unspecified severity, without behavioral disturbance, psychotic disturbance, mood disturbance, and anxiety Assessment and Plan: 57 years old woman with somewhat rapidly progressing dementia or symptoms of dementia with CSF protein of 88 but otherwise no definite clue about her diagnosis. I discussed the case with neurology service at [facility] and they suggested that the workup has been appropriate and thorough and it was not clear if any further investigations were needed. Also, they did not have beds available for transfer According to their experience, this level of CSF protein could be seen and degenerative disorders but could also be seen in some type of spine pathology, which we have not investigated. In any case, high CSF protein without elevation of cells and without any significant brain lesions on MRI, does not suggest malignancy or vasculitis type of pathology. 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 Some CSF tests are pending which may confirm this notion. PET scan can also help. On the other hand, further CSF analysis and investigations for vasculitis like brain biopsy are not warranted. As far as treatment of dementia is concerned, it is symptomatic. I would start with donepezil 5 mg daily and after a week would add memantine 5 mg twice a day. These are the 2 types of medicines available at this time. Finally, her placement could be an issue as she would not be able to live independently Plan 05/05/23 Pt with gross disorganiztion b sister give hx of more gradual detioration neuro note reviewed chart reviewed start aricept some csf results pending consider pet if available 05/07/2023: No changes to current treatment plan. Treatment team working on complex disposition which may include instituted living in [place] 05/08 continue tx. 05/09 continue tx. 05/10: neuro believes Dx more likely dementia at this point, consulted with [place] neuro who informed him protein of 88 may sometimes be seen in dementia or spinal disorders and that w/u thus far here had been thorough and adequate. plan to treat as dementia for now. neuro rec starting donepezil and 1 week later memantine. donepezil started 5 days ago, memantine scheduled to be started in 3 days. 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 per review of [facility], their recommended taper for this pt's duration of therapy and daily dose is to reduce by 5 mg/day every 1-2 weeks. as her time on steroids has been relatively short, we would proceed with the more aggressive taper. in any event, dosing to be reduced by 5 mg/day as of today. Reason for continued inpatient stay Substantial Risk for: inability to function and rapid decompensation Time Spent With Patient Time: Total time managing care of this patient today __35__ minutes.
[2023-05-10 20:15] VITALS: BP 119/63; PULSE 52; RESP 16; TEMP 36.2; O2SAT 97
[2023-05-10] MEDS: OLANZapine 5 MG TABLET PO (20:47)
[2023-05-11 08:08] VITALS: BP 132/69; PULSE 54; RESP 18; TEMP 36.5; O2SAT 100
[2023-05-11] MEDS: Donepezil HCl 5 MG TABLET PO (09:03)
[2023-05-11] MEDS: Atorvastatin Calcium 40 MG TABLET PO (09:03)
[2023-05-11] MEDS: Insulin Lispro 100 UNIT/ML 3 ML VIAL SUBCUT ×3 (09:03→21:52)
[2023-05-11] MEDS: metFORMIN HCl 1,000 MG TABLET 1000 MG PO ×2 (09:03→20:47)
[2023-05-11] MEDS: Famotidine 20 MG TABLET PO (09:03)
[2023-05-11] MEDS: Sertraline HCL 50 MG TABLET PO (09:03)
[2023-05-11] MEDS: Omeprazole 20 MG CAPSULE.DR PO (09:03)
[2023-05-11] MEDS: Empagliflozin 25 MG TABLET PO (09:20)
--- NOTE | 2023-05-11 10:57 | PM.NEUROCN ---
History of Present Illness Data of Consult Service Date: 07/05/23 Primary Care Provider: Kenroy Antonio MD [facility] Reason for consult: Dementia 58 years old woman with chronic intractable depression and also new diagnosis of relatively young age at Alzheimer dementia based upon her CSF markers. She had extensive testing done for alternate etiology of cognitive difficulties, all negative. There was no evidence of seizure disorder. Review of Systems Review of Systems: Could not be reliably done with her [facility] Past Medical History Medical History Diabetes GERD (gastroesophageal reflux disease) Family History Family history: reviewed and not pertinent Social History Social History Household Members: Family Housing: Other Housing Other:: PATIENT CURRENTLY SLEEPING ON BROTHERS COUCH Do you presently have visiting nurse or other home services: No Unable to assess alcohol history related to: Unknown Patient Tobacco Use Status: Tobacco use Unknown Advance Directives: No Advance Directives Information Provided: Yes Advance Directives Date on File: 03/30/23 service: No Sexual orientation: Straight/Heterosexual Meds Allergies Allergy/AdvReac Type Severity Reaction Status Date / Time No Known Allergies Allergy Verified 03/23/23 18:13 Active Medications: Current Medications Acetaminophen (Acetaminophen 325 Mg Tablet) 650 mg PO Q6H PRN PRN Reason: Headache/Pain Mild Scale (1-3) Last Admin: 05/06/23 20:10 Dose: 650 mg Al Hydroxide/Mg Hydroxide (Magnesium Hydrox/Alum Hydrox 30 Ml Oral.Susp) 30 ml PO Q6H PRN PRN Reason: Heartburn/Nausea Atorvastatin Calcium (Atorvastatin Calcium 40 Mg Tablet) 40 mg PO DAILY [facility] Last Admin: 05/11/23 09:03 Dose: 40 mg Dextrose (Dextrose 50 % 25 Gm/50 Ml Syringe) 25 gm IVPUSH Q15M PRN; Protocol PRN Reason: per Hypoglycemia Standing Ord. Donepezil HCl (Donepezil Hcl 5 Mg Tablet) 5 mg PO DAILY [facility] Last Admin: 05/11/23 09:03 Dose: 5 mg Empagliflozin (Empagliflozin 25 Mg Tablet) 25 mg PO DAILY [facility] Last Admin: 05/11/23 09:20 Dose: 25 mg Famotidine (Famotidine 20 Mg Tablet) 20 mg PO DAILY [facility] Last Admin: 05/11/23 09:03 Dose: 20 mg Glucose (Glucose Gel 15 Gm Gel..Gram.) 15 gm PO Q15M PRN; Protocol PRN Reason: per Hypoglycemia Standing Ord. Insulin Human Lispro (Insulin Lispro 100 Unit/Ml 3 Ml Vial) 0 unit SUBCUT QIDACHS [facility]; Protocol Last Admin: 05/11/23 09:03 Dose: 2 unit Magnesium Hydroxide (Milk Of Magnesia 30 Ml Oral.Susp) 30 ml PO DAILY PRN PRN Reason: Constipation Memantine (Memantine Hcl 5 Mg Tablet) 5 mg PO BID [facility] Metformin HCl (Metformin Hcl 1,000 Mg Tablet) 1,000 mg PO BID [facility] Last Admin: 05/11/23 09:03 Dose: 1,000 mg Olanzapine (Olanzapine 5 Mg Tablet) 5 mg PO BEDTIME [facility] Last Admin: 05/10/23 20:47 Dose: 5 mg Olanzapine (Olanzapine 2.5 Mg Tablet) 2.5 mg PO Q4H PRN PRN Reason: anxiety/agitation Last Admin: 04/29/23 17:17 Dose: 2.5 mg Omeprazole (Omeprazole 20 Mg Capsule.Dr) 20 mg PO DAILY [facility] Last Admin: 05/11/23 09:03 Dose: 20 mg Prednisone (Prednisone 20 Mg Tablet) 20 mg PO DAILY [facility] Last Admin: 05/11/23 09:03 Dose: 20 mg Prednisone (Prednisone 5 Mg Tablet) 15 mg PO BEDTIME [facility] Last Admin: 05/10/23 20:47 Dose: 15 mg Sertraline HCl (Sertraline Hcl 50 Mg Tablet) 50 mg PO DAILY [facility] Last Admin: 05/11/23 09:03 Dose: 50 mg Trazodone HCl (Trazodone Hcl 50 Mg Tablet) 50 mg PO BEDTIME MRX1 PRN PRN Reason: Insomnia Last Admin: 05/03/23 21:35 Dose: 50 mg Home Medications Medication Instructions Recorded Confirmed Last Taken Type atorvastatin 40 mg tablet 40 mg PO DAILY 03/23/23 03/23/23 Unknown History empagliflozin 25 mg tablet 25 mg PO DAILY 03/23/23 03/23/23 Unknown History (Jardiance) famotidine 20 mg tablet 20 mg PO DAILY 03/23/23 03/23/23 Unknown History metformin 500 mg tablet 500 mg PO BID 03/23/23 03/23/23 Unknown History omeprazole 20 mg capsule,delayed 20 mg PO DAILY 03/23/23 03/23/23 Unknown History release venlafaxine 75 mg tablet 75 mg PO DAILY 03/23/23 03/23/23 Unknown History ferrous sulfate 325 mg (65 mg 325 mg PO DAILY 03/24/23 03/24/23 Unknown History iron) tablet Physical Exam Vital Signs: Vital Signs: Last Vital Signs Temp 97.7 F 05/11/23 08:08 Pulse 54 05/11/23 08:08 Resp 18 05/11/23 08:08 BP 132/69 05/11/23 08:08 Pulse Ox 100 05/11/23 08:08 O2 Del Method Room Air 05/11/23 08:08 BMI result Body Mass Index 30.2 Neuro: Other: Drowsy with very flat affect and slow speech. She said that she remembered me. Mini-mental status score was performed and it was about 10. There was no definite sign of parkinsonism or hyper reflexia. Face was symmetrical in visual mueller are full. Results Labs 04/08/23 09:08 05/06/23 08:09 Labs: Brain MRI without contrast revealed mild cerebral atrophy. Microbiology Microbiology Results: Microbiology 04/18/23 11:00 Cerebrospinal Fluid Gram Stain - Final 04/18/23 11:00 Cerebrospinal Fluid CSF Examination - Final 04/18/23 11:00 Cerebrospinal Fluid Fluid Description - Final 04/18/23 11:00 Cerebrospinal Fluid CSF Culture - Final No growth after 3 days. Assessment and Plan (1) Alzheimer's dementia: Status: Acute 58 years old woman with relative young age onset at Alzheimer dementia but overall clinical picture is affected by significant depression, which continues to be the predominant feature of for clinical picture. Conventional dementia medicines such as donepezil or memantine can be tried but usually do not make significant difference. I would suggest memantine 10 mg twice a day and donepezil 10 mg daily. Recently a new dementia at drug for Alzheimer was approved but only for relatively mild dementia or mild cognitive impairment type of patients. She would not qualify for that drug. My recommendation is to consider electroconvulsive therapy for depression if that was not a consideration before. Time Spent With Patient Time: Total time managing care of this patient today ____ minutes. Procedures Date of Service Date of Service: 07/05/23
--- NOTE | 2023-05-11 15:45 | HO.PSYCHPN ---
Subjective Subjective Date of Service: 05/11/23 Reason For Visit: hallucinations confusion Interim History: no change in presentation. per staff, not attending groups. some self-dialoguing in her room. pleasant, visible, pacing. sleeping OK. Mental Status Exam Mental Status Exam Narrative: calm, cooperative, diminutive. disheveled. general PMR. fair eye contact, speech nml rate, soft, decr prosody, decr amount. thoughts linear/relevant interchange; paucity of thought; confabulation. affect constricted, hypo-intense, non-labile. no SI/SIBI/HI/AVH expressed. gross cognitive impairment. Diagnostics Vital Signs (24Hr): Vital Signs - 24 hr 05/10/23 20:15 05/11/23 08:08 Temperature 97.2 F 97.7 F Pulse Rate 52 54 Respiratory Rate 16 18 Blood Pressure 119/63 132/69 Pulse Oximetry 97 100 Oxygen Delivery Method Room Air Room Air BMI result Body Mass Index 30.2 Labs 04/08/23 09:08 05/06/23 08:09 Labs: Laboratory Results - last 48 hr 04/18/23 04/18/23 05/09/23 11:58 11:58 17:03 POC Glucose 282 H Ref Lab Test Result SEE NOTE SEE NOTE 05/09/23 05/10/23 05/10/23 20:37 08:44 12:05 POC Glucose 217 H 225 H 220 H Ref Lab Test Result 05/10/23 05/10/23 05/11/23 17:27 20:38 08:27 POC Glucose 220 H 153 H 175 H Ref Lab Test Result 05/11/23 12:30 POC Glucose 268 H Ref Lab Test Result Imaging Radiology Impressions: ITS Impressions Brain MRI 04/03/23 15:30 IMPRESSION: No acute infarct, mass lesion, intracranial hemorrhage, or evidence of hydrocephalus. Mild nonspecific T2/FLAIR hyperintensity in the cerebral white matter and danny presumably on the basis of chronic microangiopathy. Medications Medications Current Medications Acetaminophen (Acetaminophen 325 Mg Tablet) 650 mg PO Q6H PRN PRN Reason: Headache/Pain Mild Scale (1-3) Last Admin: 05/06/23 20:10 Dose: 650 mg Al Hydroxide/Mg Hydroxide (Magnesium Hydrox/Alum Hydrox 30 Ml Oral.Susp) 30 ml PO Q6H PRN PRN Reason: Heartburn/Nausea Atorvastatin Calcium (Atorvastatin Calcium 40 Mg Tablet) 40 mg PO DAILY [facility] Last Admin: 05/11/23 09:03 Dose: 40 mg Dextrose (Dextrose 50 % 25 Gm/50 Ml Syringe) 25 gm IVPUSH Q15M PRN; Protocol PRN Reason: per Hypoglycemia Standing Ord. Donepezil HCl (Donepezil Hcl 5 Mg Tablet) 5 mg PO DAILY [facility] Last Admin: 05/11/23 09:03 Dose: 5 mg Empagliflozin (Empagliflozin 25 Mg Tablet) 25 mg PO DAILY [facility] Last Admin: 05/11/23 09:20 Dose: 25 mg Famotidine (Famotidine 20 Mg Tablet) 20 mg PO DAILY [facility] Last Admin: 05/11/23 09:03 Dose: 20 mg Glucose (Glucose Gel 15 Gm Gel..Gram.) 15 gm PO Q15M PRN; Protocol PRN Reason: per Hypoglycemia Standing Ord. Insulin Human Lispro (Insulin Lispro 100 Unit/Ml 3 Ml Vial) 0 unit SUBCUT QIDACHS [facility]; Protocol Last Admin: 05/11/23 14:10 Dose: 6 unit Magnesium Hydroxide (Milk Of Magnesia 30 Ml Oral.Susp) 30 ml PO DAILY PRN PRN Reason: Constipation Memantine (Memantine Hcl 5 Mg Tablet) 5 mg PO BID [facility] Metformin HCl (Metformin Hcl 1,000 Mg Tablet) 1,000 mg PO BID [facility] Last Admin: 05/11/23 09:03 Dose: 1,000 mg Olanzapine (Olanzapine 5 Mg Tablet) 5 mg PO BEDTIME [facility] Last Admin: 05/10/23 20:47 Dose: 5 mg Olanzapine (Olanzapine 2.5 Mg Tablet) 2.5 mg PO Q4H PRN PRN Reason: anxiety/agitation Last Admin: 04/29/23 17:17 Dose: 2.5 mg Omeprazole (Omeprazole 20 Mg Capsule.Dr) 20 mg PO DAILY [facility] Last Admin: 05/11/23 09:03 Dose: 20 mg Prednisone (Prednisone 20 Mg Tablet) 20 mg PO DAILY [facility] Last Admin: 05/11/23 09:03 Dose: 20 mg Prednisone (Prednisone 5 Mg Tablet) 15 mg PO BEDTIME [facility] Last Admin: 05/10/23 20:47 Dose: 15 mg Sertraline HCl (Sertraline Hcl 50 Mg Tablet) 50 mg PO DAILY [facility] Last Admin: 05/11/23 09:03 Dose: 50 mg Trazodone HCl (Trazodone Hcl 50 Mg Tablet) 50 mg PO BEDTIME MRX1 PRN PRN Reason: Insomnia Last Admin: 05/03/23 21:35 Dose: 50 mg Allergies Allergies Allergy/AdvReac Type Severity Reaction Status Date / Time No Known Allergies Allergy Verified 03/23/23 18:13 Assessment & Plan Assessment & Plan (1) Dementia: Status: Acute Code(s): F03.90 - Unspecified dementia, unspecified severity, without behavioral disturbance, psychotic disturbance, mood disturbance, and anxiety Assessment and Plan: 57 years old woman with somewhat rapidly progressing dementia or symptoms of dementia with CSF protein of 88 but otherwise no definite clue about her diagnosis. I discussed the case with neurology service at [facility] and they suggested that the workup has been appropriate and thorough and it was not clear if any further investigations were needed. Also, they did not have beds available for transfer According to their experience, this level of CSF protein could be seen and degenerative disorders but could also be seen in some type of spine pathology, which we have not investigated. In any case, high CSF protein without elevation of cells and without any significant brain lesions on MRI, does not suggest malignancy or vasculitis type of pathology. At this time, after discussing the case with the neurologist in [place], my recommendation is to treat her for degenerative dementia appearing in young age. Some CSF tests are pending which may confirm this notion. PET scan can also help. On the other hand, further CSF analysis and investigations for vasculitis like brain biopsy are not warranted. As far as treatment of dementia is concerned, it is symptomatic. I would start with donepezil 5 mg daily and after a week would add memantine 5 mg twice a day. These are the 2 types of medicines available at this time. Finally, her placement could be an issue as she would not be able to live independently Plan 05/05/23 Pt with gross disorganiztion b sister give hx of more gradual detioration neuro note reviewed chart reviewed start aricept some csf results pending consider pet if available ?05/07/2023: No changes to current treatment plan.? Treatment team working on complex disposition which may include instituted living in [place] 05/08 continue tx. 05/09 continue tx. 05/10:? neuro believes Dx more likely dementia at this point, consulted with [facility] who informed him protein of 88 may sometimes be seen in dementia or spinal disorders and that w/u thus far here had been thorough and adequate.? plan to treat as dementia for now.? neuro rec starting donepezil and 1 week later memantine.? donepezil started 5 days ago, memantine scheduled to be started in 3 days.? 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 per review of [facility], their recommended taper for this pt's duration of therapy and daily dose is to reduce by 5 mg/day every 1-2 weeks.? as her time on steroids has been relatively short, we would proceed with the more aggressive taper.? in any event, dosing to be reduced by 5 mg/day as of today. 05/11: all labs results in, positives are for elevated CSF protein/albumin and pattern of CSF protein c/w alzheimer's dementia. continue induction on cholinesterase inhibitor, pednisone taper, work on dispo planning. Reason for continued inpatient stay Substantial Risk for: inability to function Time Spent With Patient Time: Total time managing care of this patient today __35__ minutes.
[2023-05-11] MEDS: OLANZapine 5 MG TABLET PO (20:48)
[2023-05-11 21:45] VITALS: BP 119/71; PULSE 100; RESP 18; TEMP 36.1; O2SAT 99
[2023-05-12 08:00] VITALS: BP 115/55; PULSE 76; RESP 16; TEMP 36.4; O2SAT 99
[2023-05-12] MEDS: Empagliflozin 25 MG TABLET PO (08:28)
[2023-05-12] MEDS: Sertraline HCL 50 MG TABLET PO (08:29)
[2023-05-12] MEDS: Atorvastatin Calcium 40 MG TABLET PO (08:29)
[2023-05-12] MEDS: Omeprazole 20 MG CAPSULE.DR PO (08:29)
[2023-05-12] MEDS: metFORMIN HCl 1,000 MG TABLET 1000 MG PO ×2 (08:30→21:59)
[2023-05-12] MEDS: Famotidine 20 MG TABLET PO (08:30)
[2023-05-12] MEDS: Donepezil HCl 5 MG TABLET PO (08:30)
[2023-05-12] MEDS: Insulin Lispro 100 UNIT/ML 3 ML VIAL SUBCUT ×4 (09:52→22:02)
--- NOTE | 2023-05-12 13:14 | HO.PSYCHPN ---
Subjective Subjective Date of Service: 05/12/23 Reason For Visit: hallucinations confusion Interim History: calm, pleasant. wandering the unit. no change in presentation. per staff, pleasant and interactive. denies SI/HI/AVH. napping. attending groups. denies anx/dep. taking meds. slept overnight. Mental Status Exam Mental Status Exam Narrative: calm, cooperative, diminutive. disheveled. general PMR. fair eye contact, speech nml rate, soft, decr prosody, decr amount. thoughts linear/relevant interchange; paucity of thought; confabulation. affect constricted, hypo-intense, non-labile. no SI/SIBI/HI/AVH expressed. gross cognitive impairment. Diagnostics Vital Signs (24Hr): Vital Signs - 24 hr 05/11/23 21:45 05/12/23 08:00 Temperature 97 F 97.6 F Pulse Rate 100 76 Respiratory Rate 18 16 Blood Pressure 119/71 115/55 L Pulse Oximetry 99 99 Oxygen Delivery Method Room Air Room Air BMI result Body Mass Index 30.2 Labs 04/08/23 09:08 05/06/23 08:09 Labs: Laboratory Results - last 48 hr 05/10/23 05/10/23 05/11/23 17:27 20:38 08:27 POC Glucose 220 H 153 H 175 H 05/11/23 05/11/23 05/11/23 12:30 16:39 20:54 POC Glucose 268 H 211 H 297 H 05/12/23 05/12/23 07:49 11:48 POC Glucose 180 H 245 H Imaging Radiology Impressions: ITS Impressions Brain MRI 04/03/23 15:30 IMPRESSION: No acute infarct, mass lesion, intracranial hemorrhage, or evidence of hydrocephalus. Mild nonspecific T2/FLAIR hyperintensity in the cerebral white matter and adnny presumably on the basis of chronic microangiopathy. Medications Medications Current Medications Acetaminophen (Acetaminophen 325 Mg Tablet) 650 mg PO Q6H PRN PRN Reason: Headache/Pain Mild Scale (1-3) Last Admin: 05/06/23 20:10 Dose: 650 mg Al Hydroxide/Mg Hydroxide (Magnesium Hydrox/Alum Hydrox 30 Ml Oral.Susp) 30 ml PO Q6H PRN PRN Reason: Heartburn/Nausea Atorvastatin Calcium (Atorvastatin Calcium 40 Mg Tablet) 40 mg PO DAILY [facility] Last Admin: 05/12/23 08:29 Dose: 40 mg Dextrose (Dextrose 50 % 25 Gm/50 Ml Syringe) 25 gm IVPUSH Q15M PRN; Protocol PRN Reason: per Hypoglycemia Standing Ord. Donepezil HCl (Donepezil Hcl 5 Mg Tablet) 5 mg PO DAILY [facility] Last Admin: 05/12/23 08:30 Dose: 5 mg Empagliflozin (Empagliflozin 25 Mg Tablet) 25 mg PO DAILY [facility] Last Admin: 05/12/23 08:28 Dose: 25 mg Famotidine (Famotidine 20 Mg Tablet) 20 mg PO DAILY [facility] Last Admin: 05/12/23 08:30 Dose: 20 mg Glucose (Glucose Gel 15 Gm Gel..Gram.) 15 gm PO Q15M PRN; Protocol PRN Reason: per Hypoglycemia Standing Ord. Insulin Human Lispro (Insulin Lispro 100 Unit/Ml 3 Ml Vial) 0 unit SUBCUT QIDACHS [facility]; Protocol Last Admin: 05/12/23 12:38 Dose: 4 unit Magnesium Hydroxide (Milk Of Magnesia 30 Ml Oral.Susp) 30 ml PO DAILY PRN PRN Reason: Constipation Memantine (Memantine Hcl 5 Mg Tablet) 5 mg PO BID [facility] Metformin HCl (Metformin Hcl 1,000 Mg Tablet) 1,000 mg PO BID [facility] Last Admin: 05/12/23 08:30 Dose: 1,000 mg Olanzapine (Olanzapine 5 Mg Tablet) 5 mg PO BEDTIME [facility] Last Admin: 05/11/23 20:48 Dose: 5 mg Olanzapine (Olanzapine 2.5 Mg Tablet) 2.5 mg PO Q4H PRN PRN Reason: anxiety/agitation Last Admin: 04/29/23 17:17 Dose: 2.5 mg Omeprazole (Omeprazole 20 Mg Capsule.Dr) 20 mg PO DAILY [facility] Last Admin: 05/12/23 08:29 Dose: 20 mg Prednisone (Prednisone 20 Mg Tablet) 20 mg PO DAILY [facility] Last Admin: 05/12/23 08:29 Dose: 20 mg Prednisone (Prednisone 5 Mg Tablet) 15 mg PO BEDTIME [facility] Last Admin: 05/11/23 20:48 Dose: 15 mg Sertraline HCl (Sertraline Hcl 50 Mg Tablet) 50 mg PO DAILY [facility] Last Admin: 05/12/23 08:29 Dose: 50 mg Trazodone HCl (Trazodone Hcl 50 Mg Tablet) 50 mg PO BEDTIME MRX1 PRN PRN Reason: Insomnia Last Admin: 05/03/23 21:35 Dose: 50 mg Allergies Allergies Allergy/AdvReac Type Severity Reaction Status Date / Time No Known Allergies Allergy Verified 03/23/23 18:13 Assessment & Plan Assessment & Plan (1) Dementia: Status: Acute Code(s): F03.90 - Unspecified dementia, unspecified severity, without behavioral disturbance, psychotic disturbance, mood disturbance, and anxiety Assessment and Plan: 57 years old woman with somewhat rapidly progressing dementia or symptoms of dementia with CSF protein of 88 but otherwise no definite clue about her diagnosis. I discussed the case with neurology service at [facility] and they suggested that the workup has been appropriate and thorough and it was not clear if any further investigations were needed. Also, they did not have beds available for transfer According to their experience, this level of CSF protein could be seen and degenerative disorders but could also be seen in some type of spine pathology, which we have not investigated. In any case, high CSF protein without elevation of cells and without any significant brain lesions on MRI, does not suggest malignancy or vasculitis type of pathology. At this time, after discussing the case with the neurologist in [place], my recommendation is to treat her for degenerative dementia appearing in young age. Some CSF tests are pending which may confirm this notion. PET scan can also help. On the other hand, further CSF analysis and investigations for vasculitis like brain biopsy are not warranted. As far as treatment of dementia is concerned, it is symptomatic. I would start with donepezil 5 mg daily and after a week would add memantine 5 mg twice a day. These are the 2 types of medicines available at this time. Finally, her placement could be an issue as she would not be able to live independently Plan 05/05/23 Pt with gross disorganiztion b sister give hx of more gradual detioration neuro note reviewed chart reviewed start aricept some csf results pending consider pet if available ?05/07/2023: No changes to current treatment plan.? Treatment team working on complex disposition which may include instituted living in [place] 05/08 continue tx. 05/09 continue tx. 05/10:? neuro believes Dx more likely dementia at this point, consulted with [facility] who informed him protein of 88 may sometimes be seen in dementia or spinal disorders and that w/u thus far here had been thorough and adequate.? plan to treat as dementia for now.? neuro rec starting donepezil and 1 week later memantine.? donepezil started 5 days ago, memantine scheduled to be started in 3 days.? 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 per review of [facility], their recommended taper for this pt's duration of therapy and daily dose is to reduce by 5 mg/day every 1-2 weeks.? as her time on steroids has been relatively short, we would proceed with the more aggressive taper.? in any event, dosing to be reduced by 5 mg/day as of today. 05/11: all labs results in, positives are for elevated CSF protein/albumin and pattern of CSF protein c/w alzheimer's dementia. continue induction on cholinesterase inhibitor, pednisone taper, work on dispo planning. 05/12: no change in presentation. discharge planning aggressively underway. start memantine tomorrow. currently planning for discharge monday. Patient educated on: diagnosis and medication risk/benefits Reason for continued inpatient stay Substantial Risk for: inability to function and rapid decompensation Time Spent With Patient Time: Total time managing care of this patient today ___25_ minutes.
[2023-05-12 21:45] VITALS: BP 132/60; PULSE 60; RESP 16; TEMP 36.3; O2SAT 96
[2023-05-12] MEDS: OLANZapine 5 MG TABLET PO (21:59)
[2023-05-13] MEDS: Insulin Lispro 100 UNIT/ML 3 ML VIAL SUBCUT ×4 (08:18→20:47)
[2023-05-13] MEDS: Empagliflozin 25 MG TABLET PO (08:19)
[2023-05-13] MEDS: metFORMIN HCl 1,000 MG TABLET 1000 MG PO ×2 (08:19→20:46)
[2023-05-13] MEDS: Famotidine 20 MG TABLET PO (08:19)
[2023-05-13] MEDS: Atorvastatin Calcium 40 MG TABLET PO (08:19)
[2023-05-13] MEDS: Sertraline HCL 50 MG TABLET PO (08:19)
[2023-05-13] MEDS: Donepezil HCl 5 MG TABLET PO (08:19)
[2023-05-13] MEDS: Omeprazole 20 MG CAPSULE.DR PO (08:19)
[2023-05-13 08:29] VITALS: BP 104/58; PULSE 55; RESP 17; TEMP 36.2; O2SAT 98
--- NOTE | 2023-05-13 16:11 | HO.PSYCHPN ---
Subjective Subjective Date of Service: 05/13/23 Reason For Visit: hallucinations confusion Interim History: c/o feeling tired during the day too much. otherwise no complaints or requests. per staff, no change in presentation. Mental Status Exam Mental Status Exam Narrative: calm, cooperative, diminutive. disheveled. general PMR. fair eye contact, speech nml rate, soft, decr prosody, decr amount. thoughts linear/relevant interchange; paucity of thought; confabulation. affect constricted, hypo-intense, non-labile. no SI/SIBI/HI/AVH expressed. gross cognitive impairment. Diagnostics Vital Signs (24Hr): Vital Signs - 24 hr 05/12/23 21:45 05/13/23 08:29 Temperature 97.4 F 97.2 F Pulse Rate 60 55 Respiratory Rate 16 17 Blood Pressure 132/60 104/58 L Pulse Oximetry 96 98 Oxygen Delivery Method Room Air Room Air BMI result Body Mass Index 30.2 Labs 04/08/23 09:08 05/06/23 08:09 Labs: Laboratory Results - last 48 hr 05/11/23 05/11/23 05/12/23 16:39 20:54 07:49 POC Glucose 211 H 297 H 180 H 05/12/23 05/12/23 05/12/23 11:48 16:36 21:39 POC Glucose 245 H 280 H 203 H 05/13/23 05/13/23 07:59 11:13 POC Glucose 263 H 175 H Imaging Radiology Impressions: ITS Impressions Brain MRI 04/03/23 15:30 IMPRESSION: No acute infarct, mass lesion, intracranial hemorrhage, or evidence of hydrocephalus. Mild nonspecific T2/FLAIR hyperintensity in the cerebral white matter and danny presumably on the basis of chronic microangiopathy. Medications Medications Current Medications Acetaminophen (Acetaminophen 325 Mg Tablet) 650 mg PO Q6H PRN PRN Reason: Headache/Pain Mild Scale (1-3) Last Admin: 05/06/23 20:10 Dose: 650 mg Al Hydroxide/Mg Hydroxide (Magnesium Hydrox/Alum Hydrox 30 Ml Oral.Susp) 30 ml PO Q6H PRN PRN Reason: Heartburn/Nausea Atorvastatin Calcium (Atorvastatin Calcium 40 Mg Tablet) 40 mg PO DAILY [facility] Last Admin: 05/13/23 08:19 Dose: 40 mg Dextrose (Dextrose 50 % 25 Gm/50 Ml Syringe) 25 gm IVPUSH Q15M PRN; Protocol PRN Reason: per Hypoglycemia Standing Ord. Donepezil HCl (Donepezil Hcl 5 Mg Tablet) 5 mg PO DAILY [facility] Last Admin: 05/13/23 08:19 Dose: 5 mg Empagliflozin (Empagliflozin 25 Mg Tablet) 25 mg PO DAILY [facility] Last Admin: 05/13/23 08:19 Dose: 25 mg Famotidine (Famotidine 20 Mg Tablet) 20 mg PO DAILY [facility] Last Admin: 05/13/23 08:19 Dose: 20 mg Glucose (Glucose Gel 15 Gm Gel..Gram.) 15 gm PO Q15M PRN; Protocol PRN Reason: per Hypoglycemia Standing Ord. Insulin Human Lispro (Insulin Lispro 100 Unit/Ml 3 Ml Vial) 0 unit SUBCUT QIDACHS [facility]; Protocol Last Admin: 05/13/23 11:19 Dose: 2 unit Magnesium Hydroxide (Milk Of Magnesia 30 Ml Oral.Susp) 30 ml PO DAILY PRN PRN Reason: Constipation Memantine (Memantine Hcl 5 Mg Tablet) 5 mg PO BID [facility] Metformin HCl (Metformin Hcl 1,000 Mg Tablet) 1,000 mg PO BID [facility] Last Admin: 05/13/23 08:19 Dose: 1,000 mg Olanzapine (Olanzapine 5 Mg Tablet) 5 mg PO BEDTIME [facility] Last Admin: 05/12/23 21:59 Dose: 5 mg Olanzapine (Olanzapine 2.5 Mg Tablet) 2.5 mg PO Q4H PRN PRN Reason: anxiety/agitation Last Admin: 04/29/23 17:17 Dose: 2.5 mg Omeprazole (Omeprazole 20 Mg Capsule.Dr) 20 mg PO DAILY [facility] Last Admin: 05/13/23 08:19 Dose: 20 mg Prednisone (Prednisone 20 Mg Tablet) 20 mg PO DAILY [facility] Last Admin: 05/13/23 08:19 Dose: 20 mg Prednisone (Prednisone 5 Mg Tablet) 15 mg PO BEDTIME [facility] Last Admin: 05/12/23 21:59 Dose: 15 mg Sertraline HCl (Sertraline Hcl 50 Mg Tablet) 50 mg PO DAILY [facility] Last Admin: 05/13/23 08:19 Dose: 50 mg Trazodone HCl (Trazodone Hcl 50 Mg Tablet) 50 mg PO BEDTIME MRX1 PRN PRN Reason: Insomnia Last Admin: 05/03/23 21:35 Dose: 50 mg Allergies Allergies Allergy/AdvReac Type Severity Reaction Status Date / Time No Known Allergies Allergy Verified 03/23/23 18:13 Assessment & Plan Assessment & Plan (1) Dementia: Status: Acute Code(s): F03.90 - Unspecified dementia, unspecified severity, without behavioral disturbance, psychotic disturbance, mood disturbance, and anxiety Assessment and Plan: 57 years old woman with somewhat rapidly progressing dementia or symptoms of dementia with CSF protein of 88 but otherwise no definite clue about her diagnosis. I discussed the case with neurology service at [facility] and they suggested that the workup has been appropriate and thorough and it was not clear if any further investigations were needed. Also, they did not have beds available for transfer According to their experience, this level of CSF protein could be seen and degenerative disorders but could also be seen in some type of spine pathology, which we have not investigated. In any case, high CSF protein without elevation of cells and without any significant brain lesions on MRI, does not suggest malignancy or vasculitis type of pathology. At this time, after discussing the case with the neurologist in [place], my recommendation is to treat her for degenerative dementia appearing in young age. Some CSF tests are pending which may confirm this notion. PET scan can also help. On the other hand, further CSF analysis and investigations for vasculitis like brain biopsy are not warranted. As far as treatment of dementia is concerned, it is symptomatic. I would start with donepezil 5 mg daily and after a week would add memantine 5 mg twice a day. These are the 2 types of medicines available at this time. Finally, her placement could be an issue as she would not be able to live independently Plan 05/05/23 Pt with gross disorganiztion b sister give hx of more gradual detioration neuro note reviewed chart reviewed start aricept some csf results pending consider pet if available ?05/07/2023: No changes to current treatment plan.? Treatment team working on complex disposition which may include instituted living in [place] 05/08 continue tx. 05/09 continue tx. 05/10:? neuro believes Dx more likely dementia at this point, consulted with [place] neuro who informed him protein of 88 may sometimes be seen in dementia or spinal disorders and that w/u thus far here had been thorough and adequate.? plan to treat as dementia for now.? neuro rec starting donepezil and 1 week later memantine.? donepezil started 5 days ago, memantine scheduled to be started in 3 days.? 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 per review of [employer], their recommended taper for this pt's duration of therapy and daily dose is to reduce by 5 mg/day every 1-2 weeks.? as her time on steroids has been relatively short, we would proceed with the more aggressive taper.? in any event, dosing to be reduced by 5 mg/day as of today. 05/11: all labs results in, positives are for elevated CSF protein/albumin and pattern of CSF protein c/w alzheimer's dementia. continue induction on cholinesterase inhibitor, pednisone taper, work on dispo planning. 05/12: no change in presentation. discharge planning aggressively underway. start memantine tomorrow. currently planning for discharge monday. 05/13: memantine started today. decrease zyprexa at HS from 5 mg to 2.5 mg in attempt to decrease overall sedation. plan to decrease prednisone by 5 mg/day on monday. Reason for continued inpatient stay Substantial Risk for: inability to function and rapid decompensation Time Spent With Patient Time: Total time managing care of this patient today ____ minutes.
--- NOTE | 2023-05-13 17:33 | PC.NURSE ---
Patient had a lot of trouble remembering her date when being administered medication.
[2023-05-13 20:30] VITALS: BP 115/57; PULSE 60; RESP 16; TEMP 35.9; O2SAT 95
[2023-05-13] MEDS: OLANZapine 2.5 MG TABLET PO (20:46)
[2023-05-13] MEDS: Memantine HCl 5 MG TABLET PO (20:46)
[2023-05-14 08:00] VITALS: BP 128/64; PULSE 55; RESP 16; TEMP 36.3; O2SAT 95
[2023-05-14] MEDS: Atorvastatin Calcium 40 MG TABLET PO (08:31)
[2023-05-14] MEDS: metFORMIN HCl 1,000 MG TABLET 1000 MG PO ×2 (08:31→20:31)
[2023-05-14] MEDS: Empagliflozin 25 MG TABLET PO (08:31)
[2023-05-14] MEDS: Insulin Lispro 100 UNIT/ML 3 ML VIAL SUBCUT ×4 (08:31→20:47)
[2023-05-14] MEDS: Famotidine 20 MG TABLET PO (08:31)
[2023-05-14] MEDS: Sertraline HCL 50 MG TABLET PO (08:31)
[2023-05-14] MEDS: Memantine HCl 5 MG TABLET PO ×2 (08:31→20:32)
[2023-05-14] MEDS: Omeprazole 20 MG CAPSULE.DR PO (08:31)
[2023-05-14] MEDS: Donepezil HCl 5 MG TABLET PO (08:31)
[2023-05-14 08:47] LABS: Creatinine Clr Calc Pharmacy 72.6; Estimated Glomerular Filt Rate > 60
--- NOTE | 2023-05-14 14:59 | HO.PSYCHPN ---
Subjective Subjective Date of Service: 05/14/23 Reason For Visit: hallucinations confusion Interim History: calm, cooperative. no requests or complaints. per staff, no change in presentation. Mental Status Exam Mental Status Exam Narrative: calm, cooperative, diminutive. disheveled. general PMR. fair eye contact, speech nml rate, soft, decr prosody, decr amount. thoughts linear/relevant interchange; paucity of thought; confabulation. affect constricted, hypo-intense, non-labile. no SI/SIBI/HI/AVH expressed. gross cognitive impairment. Diagnostics Vital Signs (24Hr): Vital Signs - 24 hr 05/13/23 20:30 05/14/23 08:00 Temperature 96.7 F L 97.4 F Pulse Rate 60 55 Respiratory Rate 16 16 Blood Pressure 115/57 L 128/64 Pulse Oximetry 95 95 Oxygen Delivery Method Room Air Room Air BMI result Body Mass Index 30.2 Labs 04/08/23 09:08 05/14/23 07:56 Labs: Laboratory Results - last 48 hr 05/12/23 05/12/23 05/13/23 16:36 21:39 07:59 Creatinine Estim Creat Clear Calc Estimated GFR POC Glucose 280 H 203 H 263 H 05/13/23 05/13/23 05/13/23 11:13 16:42 20:40 Creatinine Estim Creat Clear Calc Estimated GFR POC Glucose 175 H 263 H 197 H 05/14/23 05/14/23 05/14/23 07:56 08:24 11:54 Creatinine 0.82 Estim Creat Clear Calc 72.6 Estimated GFR > 60 POC Glucose 189 H 188 H Imaging Radiology Impressions: ITS Impressions Brain MRI 04/03/23 15:30 IMPRESSION: No acute infarct, mass lesion, intracranial hemorrhage, or evidence of hydrocephalus. Mild nonspecific T2/FLAIR hyperintensity in the cerebral white matter and danny presumably on the basis of chronic microangiopathy. Medications Medications Current Medications Acetaminophen (Acetaminophen 325 Mg Tablet) 650 mg PO Q6H PRN PRN Reason: Headache/Pain Mild Scale (1-3) Last Admin: 05/06/23 20:10 Dose: 650 mg Al Hydroxide/Mg Hydroxide (Magnesium Hydrox/Alum Hydrox 30 Ml Oral.Susp) 30 ml PO Q6H PRN PRN Reason: Heartburn/Nausea Atorvastatin Calcium (Atorvastatin Calcium 40 Mg Tablet) 40 mg PO DAILY [facility] Last Admin: 05/14/23 08:31 Dose: 40 mg Dextrose (Dextrose 50 % 25 Gm/50 Ml Syringe) 25 gm IVPUSH Q15M PRN; Protocol PRN Reason: per Hypoglycemia Standing Ord. Donepezil HCl (Donepezil Hcl 5 Mg Tablet) 5 mg PO DAILY [facility] Last Admin: 05/14/23 08:31 Dose: 5 mg Empagliflozin (Empagliflozin 25 Mg Tablet) 25 mg PO DAILY [facility] Last Admin: 05/14/23 08:31 Dose: 25 mg Famotidine (Famotidine 20 Mg Tablet) 20 mg PO DAILY [facility] Last Admin: 05/14/23 08:31 Dose: 20 mg Glucose (Glucose Gel 15 Gm Gel..Gram.) 15 gm PO Q15M PRN; Protocol PRN Reason: per Hypoglycemia Standing Ord. Insulin Human Lispro (Insulin Lispro 100 Unit/Ml 3 Ml Vial) 0 unit SUBCUT QIDACHS [facility]; Protocol Last Admin: 05/14/23 12:36 Dose: 2 unit Magnesium Hydroxide (Milk Of Magnesia 30 Ml Oral.Susp) 30 ml PO DAILY PRN PRN Reason: Constipation Memantine (Memantine Hcl 5 Mg Tablet) 5 mg PO BID [facility] Last Admin: 05/14/23 08:31 Dose: 5 mg Metformin HCl (Metformin Hcl 1,000 Mg Tablet) 1,000 mg PO BID [facility] Last Admin: 05/14/23 08:31 Dose: 1,000 mg Olanzapine (Olanzapine 2.5 Mg Tablet) 2.5 mg PO Q4H PRN PRN Reason: anxiety/agitation Last Admin: 04/29/23 17:17 Dose: 2.5 mg Olanzapine (Olanzapine 2.5 Mg Tablet) 2.5 mg PO BEDTIME [facility] Last Admin: 05/13/23 20:46 Dose: 2.5 mg Omeprazole (Omeprazole 20 Mg Capsule.Dr) 20 mg PO DAILY [facility] Last Admin: 05/14/23 08:31 Dose: 20 mg Prednisone (Prednisone 20 Mg Tablet) 20 mg PO DAILY [facility] Last Admin: 05/14/23 08:31 Dose: 20 mg Prednisone (Prednisone 5 Mg Tablet) 15 mg PO BEDTIME [facility] Last Admin: 05/13/23 20:46 Dose: 15 mg Sertraline HCl (Sertraline Hcl 50 Mg Tablet) 50 mg PO DAILY [facility] Last Admin: 05/14/23 08:31 Dose: 50 mg Trazodone HCl (Trazodone Hcl 50 Mg Tablet) 50 mg PO BEDTIME MRX1 PRN PRN Reason: Insomnia Last Admin: 05/03/23 21:35 Dose: 50 mg Allergies Allergies Allergy/AdvReac Type Severity Reaction Status Date / Time No Known Allergies Allergy Verified 03/23/23 18:13 Assessment & Plan Assessment & Plan (1) Dementia: Status: Acute Code(s): F03.90 - Unspecified dementia, unspecified severity, without behavioral disturbance, psychotic disturbance, mood disturbance, and anxiety Assessment and Plan: 57 years old woman with somewhat rapidly progressing dementia or symptoms of dementia with CSF protein of 88 but otherwise no definite clue about her diagnosis. I discussed the case with neurology service at [facility] and they suggested that the workup has been appropriate and thorough and it was not clear if any further investigations were needed. Also, they did not have beds available for transfer According to their experience, this level of CSF protein could be seen and degenerative disorders but could also be seen in some type of spine pathology, which we have not investigated. In any case, high CSF protein without elevation of cells and without any significant brain lesions on MRI, does not suggest malignancy or vasculitis type of pathology. At this time, after discussing the case with the neurologist in [place], my recommendation is to treat her for degenerative dementia appearing in young age. Some CSF tests are pending which may confirm this notion. PET scan can also help. On the other hand, further CSF analysis and investigations for vasculitis like brain biopsy are not warranted. As far as treatment of dementia is concerned, it is symptomatic. I would start with donepezil 5 mg daily and after a week would add memantine 5 mg twice a day. These are the 2 types of medicines available at this time. Finally, her placement could be an issue as she would not be able to live independently Plan 05/05/23 Pt with gross disorganiztion b sister give hx of more gradual detioration neuro note reviewed chart reviewed start aricept some csf results pending consider pet if available ?05/07/2023: No changes to current treatment plan.? Treatment team working on complex disposition which may include instituted living in [place] 05/08 continue tx. 05/09 continue tx. 05/10:? neuro believes Dx more likely dementia at this point, consulted with [place] neuro who informed him protein of 88 may sometimes be seen in dementia or spinal disorders and that w/u thus far here had been thorough and adequate.? plan to treat as dementia for now.? neuro rec starting donepezil and 1 week later memantine.? donepezil started 5 days ago, memantine scheduled to be started in 3 days.? 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 per review of [employer], their recommended taper for this pt's duration of therapy and daily dose is to reduce by 5 mg/day every 1-2 weeks.? as her time on steroids has been relatively short, we would proceed with the more aggressive taper.? in any event, dosing to be reduced by 5 mg/day as of today. 05/11: all labs results in, positives are for elevated CSF protein/albumin and pattern of CSF protein c/w alzheimer's dementia. continue induction on cholinesterase inhibitor, pednisone taper, work on dispo planning. 05/12: no change in presentation. discharge planning aggressively underway. start memantine tomorrow. currently planning for discharge monday. 05/13: memantine started today. decrease zyprexa at HS from 5 mg to 2.5 mg in attempt to decrease overall sedation. plan to decrease prednisone by 5 mg/day on monday. 05/14: continue current mgmt. decrease prednisone by 5 mg/day as of tomorrow morning. dispo planning underway. Reason for continued inpatient stay Substantial Risk for: inability to function Time Spent With Patient Time: Total time managing care of this patient today ____ minutes.
[2023-05-14 19:20] VITALS: BP 116/60; PULSE 65; RESP 16; TEMP 36.3; O2SAT 97
[2023-05-14] MEDS: predniSONE 5 MG TABLET 15 MG PO (20:31)
[2023-05-14] MEDS: OLANZapine 2.5 MG TABLET PO (20:32)
[2023-05-15 08:00] VITALS: BP 142/75; PULSE 64; RESP 16; TEMP 35.8; O2SAT 98
[2023-05-15] MEDS: Insulin Lispro 100 UNIT/ML 3 ML VIAL SUBCUT ×4 (08:41→20:52)
[2023-05-15] MEDS: Famotidine 20 MG TABLET PO (08:42)
[2023-05-15] MEDS: metFORMIN HCl 1,000 MG TABLET 1000 MG PO ×2 (08:42→20:54)
[2023-05-15] MEDS: Omeprazole 20 MG CAPSULE.DR PO (08:42)
[2023-05-15] MEDS: Sertraline HCL 50 MG TABLET PO (08:42)
[2023-05-15] MEDS: predniSONE 5 MG TABLET 15 MG PO ×2 (08:42→20:53)
[2023-05-15] MEDS: Empagliflozin 25 MG TABLET PO (08:42)
[2023-05-15] MEDS: Atorvastatin Calcium 40 MG TABLET PO (08:42)
[2023-05-15] MEDS: Donepezil HCl 5 MG TABLET PO (08:42)
[2023-05-15] MEDS: Memantine HCl 5 MG TABLET PO ×2 (08:43→20:54)
--- NOTE | 2023-05-15 14:52 | HO.PSYCHPN ---
Subjective Subjective Date of Service: 05/15/23 Reason For Visit: hallucinations confusion Interim History: no change in presentation. per staff, quiet, cooperative, appropriate. no anx/dep/SI/HI/AVH. confused at times. attending groups. eating. Mental Status Exam Mental Status Exam Narrative: calm, cooperative, diminutive. disheveled. general PMR. fair eye contact, speech nml rate, soft, decr prosody, decr amount. thoughts linear/relevant interchange; paucity of thought; confabulation. affect constricted, hypo-intense, non-labile. no SI/SIBI/HI/AVH expressed. gross cognitive impairment. Diagnostics Vital Signs (24Hr): Vital Signs - 24 hr 05/14/23 19:20 05/15/23 08:00 Temperature 97.4 F 96.4 F L Pulse Rate 65 64 Respiratory Rate 16 16 Blood Pressure 116/60 142/75 H Pulse Oximetry 97 98 Oxygen Delivery Method Room Air Room Air BMI result Body Mass Index 30.2 Labs 04/08/23 09:08 05/14/23 07:56 Labs: Laboratory Results - last 48 hr 05/13/23 05/13/23 05/14/23 16:42 20:40 07:56 Creatinine 0.82 Estim Creat Clear Calc 72.6 Estimated GFR > 60 POC Glucose 263 H 197 H 05/14/23 05/14/23 05/14/23 08:24 11:54 17:13 Creatinine Estim Creat Clear Calc Estimated GFR POC Glucose 189 H 188 H 235 H 05/14/23 05/15/23 05/15/23 20:30 08:04 12:36 Creatinine Estim Creat Clear Calc Estimated GFR POC Glucose 394 H* 234 H 297 H Imaging Radiology Impressions: ITS Impressions Brain MRI 04/03/23 15:30 IMPRESSION: No acute infarct, mass lesion, intracranial hemorrhage, or evidence of hydrocephalus. Mild nonspecific T2/FLAIR hyperintensity in the cerebral white matter and danny presumably on the basis of chronic microangiopathy. Medications Medications Current Medications Acetaminophen (Acetaminophen 325 Mg Tablet) 650 mg PO Q6H PRN PRN Reason: Headache/Pain Mild Scale (1-3) Last Admin: 05/06/23 20:10 Dose: 650 mg Al Hydroxide/Mg Hydroxide (Magnesium Hydrox/Alum Hydrox 30 Ml Oral.Susp) 30 ml PO Q6H PRN PRN Reason: Heartburn/Nausea Atorvastatin Calcium (Atorvastatin Calcium 40 Mg Tablet) 40 mg PO DAILY [facility] Last Admin: 05/15/23 08:42 Dose: 40 mg Dextrose (Dextrose 50 % 25 Gm/50 Ml Syringe) 25 gm IVPUSH Q15M PRN; Protocol PRN Reason: per Hypoglycemia Standing Ord. Donepezil HCl (Donepezil Hcl 5 Mg Tablet) 5 mg PO DAILY [facility] Last Admin: 05/15/23 08:42 Dose: 5 mg Empagliflozin (Empagliflozin 25 Mg Tablet) 25 mg PO DAILY [facility] Last Admin: 05/15/23 08:42 Dose: 25 mg Famotidine (Famotidine 20 Mg Tablet) 20 mg PO DAILY [facility] Last Admin: 05/15/23 08:42 Dose: 20 mg Glucose (Glucose Gel 15 Gm Gel..Gram.) 15 gm PO Q15M PRN; Protocol PRN Reason: per Hypoglycemia Standing Ord. Insulin Human Lispro (Insulin Lispro 100 Unit/Ml 3 Ml Vial) 0 unit SUBCUT QIDACHS [facility]; Protocol Last Admin: 05/15/23 12:41 Dose: 6 unit Magnesium Hydroxide (Milk Of Magnesia 30 Ml Oral.Susp) 30 ml PO DAILY PRN PRN Reason: Constipation Memantine (Memantine Hcl 5 Mg Tablet) 5 mg PO BID [facility] Last Admin: 05/15/23 08:43 Dose: 5 mg Metformin HCl (Metformin Hcl 1,000 Mg Tablet) 1,000 mg PO BID [facility] Last Admin: 05/15/23 08:42 Dose: 1,000 mg Olanzapine (Olanzapine 2.5 Mg Tablet) 2.5 mg PO Q4H PRN PRN Reason: anxiety/agitation Last Admin: 04/29/23 17:17 Dose: 2.5 mg Olanzapine (Olanzapine 2.5 Mg Tablet) 2.5 mg PO BEDTIME [facility] Last Admin: 05/14/23 20:32 Dose: 2.5 mg Omeprazole (Omeprazole 20 Mg Capsule.Dr) 20 mg PO DAILY [facility] Last Admin: 05/15/23 08:42 Dose: 20 mg Prednisone (Prednisone 5 Mg Tablet) 15 mg PO BID [facility] Last Admin: 05/15/23 08:42 Dose: 15 mg Sertraline HCl (Sertraline Hcl 50 Mg Tablet) 50 mg PO DAILY [facility] Last Admin: 05/15/23 08:42 Dose: 50 mg Trazodone HCl (Trazodone Hcl 50 Mg Tablet) 50 mg PO BEDTIME MRX1 PRN PRN Reason: Insomnia Last Admin: 05/03/23 21:35 Dose: 50 mg Allergies Allergies Allergy/AdvReac Type Severity Reaction Status Date / Time No Known Allergies Allergy Verified 03/23/23 18:13 Assessment & Plan Assessment & Plan (1) Dementia: Status: Acute Code(s): F03.90 - Unspecified dementia, unspecified severity, without behavioral disturbance, psychotic disturbance, mood disturbance, and anxiety Assessment and Plan: 57 years old woman with somewhat rapidly progressing dementia or symptoms of dementia with CSF protein of 88 but otherwise no definite clue about her diagnosis. I discussed the case with neurology service at [facility] and they suggested that the workup has been appropriate and thorough and it was not clear if any further investigations were needed. Also, they did not have beds available for transfer According to their experience, this level of CSF protein could be seen and degenerative disorders but could also be seen in some type of spine pathology, which we have not investigated. In any case, high CSF protein without elevation of cells and without any significant brain lesions on MRI, does not suggest malignancy or vasculitis type of pathology. At this time, after discussing the case with the neurologist in [place], my recommendation is to treat her for degenerative dementia appearing in young age. Some CSF tests are pending which may confirm this notion. PET scan can also help. On the other hand, further CSF analysis and investigations for vasculitis like brain biopsy are not warranted. As far as treatment of dementia is concerned, it is symptomatic. I would start with donepezil 5 mg daily and after a week would add memantine 5 mg twice a day. These are the 2 types of medicines available at this time. Finally, her placement could be an issue as she would not be able to live independently Plan 05/05/23 Pt with gross disorganiztion b sister give hx of more gradual detioration neuro note reviewed chart reviewed start aricept some csf results pending consider pet if available ?05/07/2023: No changes to current treatment plan.? Treatment team working on complex disposition which may include instituted living in [place] 05/08 continue tx. 05/09 continue tx. 05/10:? neuro believes Dx more likely dementia at this point, consulted with [place] neuro who informed him protein of 88 may sometimes be seen in dementia or spinal disorders and that w/u thus far here had been thorough and adequate.? plan to treat as dementia for now.? neuro rec starting donepezil and 1 week later memantine.? donepezil started 5 days ago, memantine scheduled to be started in 3 days.? 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 per review of [employer], their recommended taper for this pt's duration of therapy and daily dose is to reduce by 5 mg/day every 1-2 weeks.? as her time on steroids has been relatively short, we would proceed with the more aggressive taper.? in any event, dosing to be reduced by 5 mg/day as of today. 05/11: all labs results in, positives are for elevated CSF protein/albumin and pattern of CSF protein c/w alzheimer's dementia. continue induction on cholinesterase inhibitor, pednisone taper, work on dispo planning. 05/12: no change in presentation. discharge planning aggressively underway. start memantine tomorrow. currently planning for discharge monday. 05/13: memantine started today. decrease zyprexa at HS from 5 mg to 2.5 mg in attempt to decrease overall sedation. plan to decrease prednisone by 5 mg/day on monday. 05/14: continue current mgmt. decrease prednisone by 5 mg/day as of tomorrow morning. dispo planning underway. 05/15: continue current mgmt. family meeting tomorrow with pt's daughter and HCP, [facility]. Reason for continued inpatient stay Substantial Risk for: inability to function Time Spent With Patient Time: Total time managing care of this patient today ____ minutes.
[2023-05-15 20:28] LABS: Glucose, Whole Blood 348 mg/dL (60-115)
[2023-05-15] MEDS: OLANZapine 2.5 MG TABLET PO (20:54)
[2023-05-15 20:57] VITALS: BP 144/70; PULSE 61; TEMP 36.6; O2SAT 95
[2023-05-16 08:00] VITALS: PULSE 60; TEMP 36.6
[2023-05-16 08:22] LABS: Glucose, Whole Blood 248 mg/dL (60-115)
[2023-05-16] MEDS: Atorvastatin Calcium 40 MG TABLET PO (08:26)
[2023-05-16] MEDS: Empagliflozin 25 MG TABLET PO (08:26)
[2023-05-16] MEDS: Omeprazole 20 MG CAPSULE.DR PO (08:26)
[2023-05-16] MEDS: Donepezil HCl 5 MG TABLET PO (08:27)
[2023-05-16] MEDS: Sertraline HCL 50 MG TABLET PO (08:27)
[2023-05-16] MEDS: Famotidine 20 MG TABLET PO (08:27)
[2023-05-16] MEDS: metFORMIN HCl 1,000 MG TABLET 1000 MG PO ×2 (08:27→20:41)
[2023-05-16] MEDS: predniSONE 5 MG TABLET 15 MG PO ×2 (08:28→20:41)
[2023-05-16] MEDS: Memantine HCl 5 MG TABLET PO ×2 (08:28→20:41)
[2023-05-16] MEDS: Insulin Lispro 100 UNIT/ML 3 ML VIAL SUBCUT ×3 (08:30→20:40)
[2023-05-16 12:51] LABS: Glucose, Whole Blood 293 mg/dL (60-115)
--- NOTE | 2023-05-16 15:11 | P.PNPSI_ITS ---
Subjective Subjective Date of Service: 05/16/23 Reason For Visit: hallucinations confusion Interim History: calm, cooperative. no change in presentation. 30 min family mtg held today with pt's daughter, her , and MEKA bunch. per staff no change in presentation. withdrawn. pacing. denies psych Sx. FSBS elevated. Mental Status Exam Mental Status Exam Narrative: calm, cooperative, diminutive. disheveled. general PMR. fair eye contact, speech nml rate, soft, decr prosody, decr amount. thoughts linear/relevant interchange; paucity of thought; confabulation. affect constricted, hypo- intense, non-labile. no SI/SIBI/HI/AVH expressed. gross cognitive impairment. Diagnostics Vital Signs (24Hr): Vital Signs - 24 hr 05/15/23 20:57 05/16/23 08:00 Temperature 97.9 F 97.9 F Pulse Rate 61 60 Blood Pressure 144/70 H Pulse Oximetry 95 Oxygen Delivery Method Room Air BMI result Body Mass Index 30.2 Labs 04/08/23 09:08 05/14/23 07:56 Labs: Laboratory Results - last 48 hr 05/14/23 05/14/23 05/15/23 17:13 20:30 08:04 POC Glucose 235 H 394 H* 234 H 05/15/23 05/15/23 05/15/23 12:36 16:59 20:22 POC Glucose 297 H 305 H 348 H 05/16/23 05/16/23 08:18 12:46 POC Glucose 248 H 293 H Imaging Radiology Impressions: ITS Impressions Brain MRI 04/03/23 15:30 IMPRESSION: No acute infarct, mass lesion, intracranial hemorrhage, or evidence of hydrocephalus. Mild nonspecific T2/FLAIR hyperintensity in the cerebral white matter and danny presumably on the basis of chronic microangiopathy. Medications Medications Current Medications Acetaminophen (Acetaminophen 325 Mg Tablet) 650 mg PO Q6H PRN PRN Reason: Headache/Pain Mild Scale (1-3) Last Admin: 05/06/23 20:10 Dose: 650 mg Al Hydroxide/Mg Hydroxide (Magnesium Hydrox/Alum Hydrox 30 Ml Oral.Susp) 30 ml PO Q6H PRN PRN Reason: Heartburn/Nausea Atorvastatin Calcium (Atorvastatin Calcium 40 Mg Tablet) 40 mg PO DAILY [facility] Last Admin: 05/16/23 08:26 Dose: 40 mg Dextrose (Dextrose 50 % 25 Gm/50 Ml Syringe) 25 gm IVPUSH Q15M PRN; Protocol PRN Reason: per Hypoglycemia Standing Ord. Donepezil HCl (Donepezil Hcl 5 Mg Tablet) 5 mg PO DAILY REPLACED BY [facility] Last Admin: 05/16/23 08:27 Dose: 5 mg Empagliflozin (Empagliflozin 25 Mg Tablet) 25 mg PO DAILY REPLACED BY [facility] Last Admin: 05/16/23 08:26 Dose: 25 mg Famotidine (Famotidine 20 Mg Tablet) 20 mg PO DAILY REPLACED BY [facility] Last Admin: 05/16/23 08:27 Dose: 20 mg Glucose (Glucose Gel 15 Gm Gel..Gram.) 15 gm PO Q15M PRN; Protocol PRN Reason: per Hypoglycemia Standing Ord. Insulin Human Lispro (Insulin Lispro 100 Unit/Ml 3 Ml Vial) 0 unit SUBCUT QIDACHS REPLACED BY [facility]; Protocol Last Admin: 05/16/23 12:51 Dose: 6 unit Magnesium Hydroxide (Milk Of Magnesia 30 Ml Oral.Susp) 30 ml PO DAILY PRN PRN Reason: Constipation Memantine (Memantine Hcl 5 Mg Tablet) 5 mg PO BID REPLACED BY [facility] Last Admin: 05/16/23 08:28 Dose: 5 mg Metformin HCl (Metformin Hcl 1,000 Mg Tablet) 1,000 mg PO BID REPLACED BY [facility] Last Admin: 05/16/23 08:27 Dose: 1,000 mg Olanzapine (Olanzapine 2.5 Mg Tablet) 2.5 mg PO Q4H PRN PRN Reason: anxiety/agitation Last Admin: 04/29/23 17:17 Dose: 2.5 mg Olanzapine (Olanzapine 2.5 Mg Tablet) 2.5 mg PO BEDTIME REPLACED BY [facility] Last Admin: 05/15/23 20:54 Dose: 2.5 mg Omeprazole (Omeprazole 20 Mg Capsule.Dr) 20 mg PO DAILY REPLACED BY [facility] Last Admin: 05/16/23 08:26 Dose: 20 mg Prednisone (Prednisone 5 Mg Tablet) 15 mg PO BID REPLACED BY [facility] Last Admin: 05/16/23 08:28 Dose: 15 mg Sertraline HCl (Sertraline Hcl 50 Mg Tablet) 50 mg PO DAILY REPLACED BY [facility] Last Admin: 05/16/23 08:27 Dose: 50 mg Trazodone HCl (Trazodone Hcl 50 Mg Tablet) 50 mg PO BEDTIME MRX1 PRN PRN Reason: Insomnia Last Admin: 05/03/23 21:35 Dose: 50 mg Allergies Allergies Allergy/AdvReac Type Severity Reaction Status Date / Time No Known Allergies Allergy Verified 03/23/23 18:13 Assessment & Plan Assessment & Plan (1) Dementia: Status: Acute Code(s): F03.90 - Unspecified dementia, unspecified severity, without behavioral disturbance, psychotic disturbance, mood disturbance, and anxiety Assessment and Plan: 57 years old woman with somewhat rapidly progressing dementia or symptoms of dementia with CSF protein of 88 but otherwise no definite clue about her diagnosis. I discussed the case with neurology service at [facility] and they suggested that the workup has been appropriate and thorough and it was not clear if any further investigations were needed. Also, they did not have beds available for transfer According to their experience, this level of CSF protein could be seen and degenerative disorders but could also be seen in some type of spine pathology, which we have not investigated. In any case, high CSF protein without elevation of cells and without any significant brain lesions on MRI, d oes not suggest malignancy or vasculitis type of pathology. At this time, after discussing the case with the neurologist in [place], my recommendation is to treat her for degenerative dementia appearing in young age. Some CSF tests are pending which may confirm this notion. PET scan can also help. On the other hand, further CSF analysis and investigations for vasculitis like brain biopsy are not warranted. As far as treatment of dementia is concerned, it is symptomatic. I would start with donepezil 5 mg daily and after a week would add memantine 5 mg twice a day. These are the 2 types of medicines available at this time. Finally, her placement could be an issue as she would not be able to live independently Plan 05/05/23 Pt with gross disorganiztion b sister give hx of more gradual detioration neuro note reviewed chart reviewed start aricept some csf results pending consider pet if available ?05/07/2023: No changes to current treatment plan.? Treatment team working on complex disposition which may include instituted living in [place] 05/08 continue tx. 05/09 continue tx. 05/10:? neuro believes Dx more likely dementia at this point, consulted with [place] neuro who informed him protein of 88 may sometimes be seen in dementia or spinal disorders and that w/u thus far here had been thorough and adequate.? plan to treat as dementia for now.? neuro rec starting donepezil and 1 week later memantine.? donepezil started 5 days ago, memantine scheduled to be started in 3 days.? 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 per review of [employer], their recommended taper for this pt's duration of therapy and daily dose is to reduce by 5 mg/day every 1-2 weeks.? as her time on steroids has been relatively short, we would proceed with the more aggressive taper.? in any event, dosing to be reduced by 5 mg/day as of today. 05/11: all labs results in, positives are for elevated CSF protein/albumin and pattern of CSF protein c/w alzheimer's dementia. continue induction on cholinesterase inhibitor, pednisone taper, work on dispo planning. 05/12: no change in presentation. discharge planning aggressively underway. start memantine tomorrow. currently planning for discharge monday. 05/13: memantine started today. decrease zyprexa at HS from 5 mg to 2.5 mg in attempt to decrease overall sedation. plan to decrease prednisone by 5 mg/day on monday. 05/14: continue current mgmt. decrease prednisone by 5 mg/day as of tomorrow morning. dispo planning underway. 05/15: continue current mgmt. family meeting tomorrow with pt's daughter and HCP, bakari. 05/16: family mtg held. SW looking into rest homes, family to pursue involving extended family for a place for pt to stay. FSBS elevated, prednisone taper ongoing, SSI being used. Reason for continued inpatient stay Substantial Risk for: inability to function and rapid decompensation Time Spent With Patient Time: Total time managing care of this patient today __35__ minutes.
[2023-05-16 20:07] LABS: Glucose, Whole Blood 370 mg/dL (60-115)
[2023-05-16 20:15] VITALS: BP 146/82; PULSE 70; RESP 18; TEMP 36.9; O2SAT 97
[2023-05-16] MEDS: OLANZapine 2.5 MG TABLET PO (20:42)
[2023-05-16] MEDS: traZODone HCL 50 MG TABLET PO (20:42)
[2023-05-16 21:13] LABS: Glucose, Whole Blood 338 mg/dL (60-115)
[2023-05-16 21:14] LABS: Glucose, Whole Blood 402 mg/dL (60-115)
[2023-05-17 07:49] LABS: Glucose, Whole Blood 272 mg/dL (60-115)
[2023-05-17 08:15] VITALS: BP 113/67; PULSE 59; RESP 18; TEMP 36.4; O2SAT 96
[2023-05-17] MEDS: Insulin Lispro 100 UNIT/ML 3 ML VIAL SUBCUT ×4 (08:39→21:15)
[2023-05-17] MEDS: Omeprazole 20 MG CAPSULE.DR PO (08:40)
[2023-05-17] MEDS: metFORMIN HCl 1,000 MG TABLET 1000 MG PO ×2 (08:40→21:16)
[2023-05-17] MEDS: Sertraline HCL 50 MG TABLET PO (08:40)
[2023-05-17] MEDS: Donepezil HCl 5 MG TABLET PO (08:40)
[2023-05-17] MEDS: predniSONE 5 MG TABLET 15 MG PO ×2 (08:40→21:16)
[2023-05-17] MEDS: Famotidine 20 MG TABLET PO (08:40)
[2023-05-17] MEDS: Empagliflozin 25 MG TABLET PO (08:40)
[2023-05-17] MEDS: Memantine HCl 5 MG TABLET PO ×2 (08:40→21:16)
[2023-05-17] MEDS: Atorvastatin Calcium 40 MG TABLET PO (08:40)
[2023-05-17 12:09] LABS: Glucose, Whole Blood 245 mg/dL (60-115)
--- NOTE | 2023-05-17 14:31 | P.PNPSI_ITS ---
Subjective Subjective Date of Service: 05/17/23 Reason For Visit: hallucinations confusion Interim History: no change in presentation. per staff, denies psych Sx. not socializing. isolative. attending groups. taking meds and meals. FSBS 370, 390 last night. tearful. Mental Status Exam Mental Status Exam Narrative: calm, cooperative, diminutive. disheveled. general PMR. fair eye contact, speech nml rate, soft, decr prosody, decr amount. thoughts linear/relevant interchange; paucity of thought; confabulation. affect constricted, hypo- intense, non-labile. no SI/SIBI/HI/AVH expressed. gross cognitive impairment. Diagnostics Vital Signs (24Hr): Vital Signs - 24 hr 05/16/23 20:15 05/17/23 08:15 Temperature 98.4 F 97.6 F Pulse Rate 70 59 Respiratory Rate 18 18 Blood Pressure 146/82 H 113/67 Pulse Oximetry 97 96 Oxygen Delivery Method Room Air Room Air BMI result Body Mass Index 30.2 Labs 04/08/23 09:08 05/14/23 07:56 Labs: Laboratory Results - last 48 hr 05/15/23 05/15/23 05/16/23 16:59 20:22 08:18 POC Glucose 305 H 348 H 248 H 05/16/23 05/16/23 05/16/23 12:46 20:02 21:07 POC Glucose 293 H 370 H* 402 H* 05/16/23 05/17/23 05/17/23 21:09 07:46 12:05 POC Glucose 338 H 272 H 245 H Imaging Radiology Impressions: ITS Impressions Brain MRI 04/03/23 15:30 IMPRESSION: No acute infarct, mass lesion, intracranial hemorrhage, or evidence of hydrocephalus. Mild nonspecific T2/FLAIR hyperintensity in the cerebral white matter and danny presumably on the basis of chronic microangiopathy. Medications Medications Current Medications Acetaminophen (Acetaminophen 325 Mg Tablet) 650 mg PO Q6H PRN PRN Reason: Headache/Pain Mild Scale (1-3) Last Admin: 05/06/23 20:10 Dose: 650 mg Al Hydroxide/Mg Hydroxide (Magnesium Hydrox/Alum Hydrox 30 Ml Oral.Susp) 30 ml PO Q6H PRN PRN Reason: Heartburn/Nausea Atorvastatin Calcium (Atorvastatin Calcium 40 Mg Tablet) 40 mg PO DAILY [facility] Last Admin: 05/17/23 08:40 Dose: 40 mg Dextrose (Dextrose 50 % 25 Gm/50 Ml Syringe) 25 gm IVPUSH Q15M PRN; Protocol PRN Reason: per Hypoglycemia Standing Ord. Donepezil HCl (Donepezil Hcl 5 Mg Tablet) 5 mg PO DAILY [facility] Last Admin: 05/17/23 08:40 Dose: 5 mg Empagliflozin (Empagliflozin 25 Mg Tablet) 25 mg PO DAILY [facility] Last Admin: 05/17/23 08:40 Dose: 25 mg Famotidine (Famotidine 20 Mg Tablet) 20 mg PO DAILY [facility] Last Admin: 05/17/23 08:40 Dose: 20 mg Glucose (Glucose Gel 15 Gm Gel..Gram.) 15 gm PO Q15M PRN; Protocol PRN Reason: per Hypoglycemia Standing Ord. Insulin Human Lispro (Insulin Lispro 100 Unit/Ml 3 Ml Vial) 0 unit SUBCUT QIDACHS [facility]; Protocol Last Admin: 05/17/23 13:13 Dose: 4 unit Magnesium Hydroxide (Milk Of Magnesia 30 Ml Oral.Susp) 30 ml PO DAILY PRN PRN Reason: Constipation Memantine (Memantine Hcl 5 Mg Tablet) 5 mg PO BID [facility] Last Admin: 05/17/23 08:40 Dose: 5 mg Metformin HCl (Metformin Hcl 1,000 Mg Tablet) 1,000 mg PO BID [facility] Last Admin: 05/17/23 08:40 Dose: 1,000 mg Olanzapine (Olanzapine 2.5 Mg Tablet) 2.5 mg PO Q4H PRN PRN Reason: anxiety/agitation Last Admin: 04/29/23 17:17 Dose: 2.5 mg Olanzapine (Olanzapine 2.5 Mg Tablet) 2.5 mg PO BEDTIME [facility] Last Admin: 05/16/23 20:42 Dose: 2.5 mg Omeprazole (Omeprazole 20 Mg Capsule.Dr) 20 mg PO DAILY [facility] Last Admin: 05/17/23 08:40 Dose: 20 mg Prednisone (Prednisone 5 Mg Tablet) 15 mg PO BID [facility] Last Admin: 05/17/23 08:40 Dose: 15 mg Sertraline HCl (Sertraline Hcl 50 Mg Tablet) 50 mg PO DAILY [facility] Last Admin: 05/17/23 08:40 Dose: 50 mg Trazodone HCl (Trazodone Hcl 50 Mg Tablet) 50 mg PO BEDTIME MRX1 PRN PRN Reason: Insomnia Last Admin: 05/16/23 20:42 Dose: 50 mg Allergies Allergies Allergy/AdvReac Type Severity Reaction Status Date / Time No Known Allergies Allergy Verified 03/23/23 18:13 Assessment & Plan Assessment & Plan (1) Dementia: Status: Acute Code(s): F03.90 - Unspecified dementia, unspecified severity, without behavioral disturbance, psychotic disturbance, mood disturbance, and anxiety Assessment and Plan: 57 years old woman with somewhat rapidly progressing dementia or symptoms of dementia with CSF protein of 88 but otherwise no definite clue about her diagnosis. I discussed the case with neurology service at [facility] and they suggested that the workup has been appropriate and thorough and it was not clear if any further investigations were needed. Also, they did not have beds available for transfer According to their experience, this level of CSF protein could be seen and degenerative disorders but could also be seen in some type of spine pathology, which we have not investigated. In any case, high CSF protein without elevation of cells and without any significant brain lesions on MRI, does not suggest malignancy or vasculitis type of pathology. At this time, after discussing the case with the neurologist in [place], my recommendation is to treat her for degenerative dementia appearing in young age. Some CSF tests are pending which may confirm this notion. PET scan can also help. On the other hand, further CSF analysis and investigations for vasculitis like brain biopsy are not warranted. As far as treatment of dementia is concerned, it is symptomatic. I would start with donepezil 5 mg daily and after a week would add memantine 5 mg twice a day. These are the 2 types of medicines available at this time. Finally, her placement could be an issue as she would not be able to live independently Plan 05/05/23 Pt with gross disorganiztion b sister give hx of more gradual detioration neuro note reviewed chart reviewed start aricept some csf results pending consider pet if available ?05/07/2023: No changes to current treatment plan.? Treatment team working on complex disposition which may include instituted living in [place] 05/08 continue tx. 05/09 continue tx. 05/10:? neuro believes Dx more likely dementia at this point, consulted with [place] neuro who informed him protein of 88 may sometimes be seen in dementia or spinal disorders and that w/u thus far here had been thorough and adequate.? plan to treat as dementia for now.? neuro rec starting donepezil and 1 week later memantine.? donepezil started 5 days ago, memantine scheduled to be started in 3 days.? 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 per review of [employer] their recommended taper for this pt's duration of therapy and daily dose is to reduce by 5 mg/day every 1-2 weeks.? as her time on steroids has been relatively short, we would proceed with the more aggressive taper.? in any event, dosing to be reduced by 5 mg/day as of today. 05/11: all labs results in, positives are for elevated CSF protein/albumin and pattern of CSF protein c/w alzheimer's dementia. continue induction on cholinesterase inhibitor, pednisone taper, work on dispo planning. 05/12: no change in presentation. discharge planning aggressively underway. start memantine tomorrow. currently planning for discharge monday. 05/13: memantine started today. decrease zyprexa at HS from 5 mg to 2.5 mg in attempt to decrease overall sedation. plan to decrease prednisone by 5 mg/day on monday. 05/14: continue current mgmt. decrease prednisone by 5 mg/day as of tomorrow morning. dispo planning underway. 05/15: continue current mgmt. family meeting tomorrow with pt's daughter and HCP, bakari. 05/16: family mtg held. SW looking into rest homes, family to pursue involving extended family for a place for pt to stay. FSBS elevated, prednisone taper ongoing, SSI being used. 05/17: no change in mgmt. met with jigna ACKERMAN and MEKA bunch to discuss dispo options. rest home is not an option, STR does not appear to be likely to be an option but is being pursued today. awaiting word from daughter on option to DC to brother's home. will need usp care daily for DM mgmt until no longer requiring SSI, however. per report, her insurance does not cover VNA. Reason for continued inpatient stay Substantial Risk for: inability to function Time Spent With Patient Time: Total time managing care of this patient today _35___ minutes.
[2023-05-17 16:47] LABS: Glucose, Whole Blood 292 mg/dL (60-115)
[2023-05-17 19:40] VITALS: BP 129/66; PULSE 58; RESP 18; TEMP 36.9; O2SAT 96
[2023-05-17 19:51] LABS: Glucose, Whole Blood 321 mg/dL (60-115)
[2023-05-17] MEDS: OLANZapine 2.5 MG TABLET PO (21:16)
[2023-05-18 07:00] VITALS: BMI 30.6
[2023-05-18 08:37] VITALS: BP 118/70; PULSE 57; RESP 18; TEMP 36.6; O2SAT 96
[2023-05-18 08:44] LABS: Glucose, Whole Blood 225 mg/dL (60-115)
[2023-05-18] MEDS: Atorvastatin Calcium 40 MG TABLET PO (09:16)
[2023-05-18] MEDS: Donepezil HCl 5 MG TABLET PO (09:16)
[2023-05-18] MEDS: metFORMIN HCl 1,000 MG TABLET 1000 MG PO ×2 (09:16→21:50)
[2023-05-18] MEDS: Sertraline HCL 50 MG TABLET PO (09:16)
[2023-05-18] MEDS: Memantine HCl 5 MG TABLET PO ×2 (09:16→21:49)
[2023-05-18] MEDS: Famotidine 20 MG TABLET PO (09:16)
[2023-05-18] MEDS: Empagliflozin 25 MG TABLET PO (09:16)
[2023-05-18] MEDS: predniSONE 5 MG TABLET 15 MG PO ×2 (09:16→21:49)
[2023-05-18] MEDS: Omeprazole 20 MG CAPSULE.DR PO (09:16)
[2023-05-18] MEDS: Insulin Lispro 100 UNIT/ML 3 ML VIAL SUBCUT ×4 (09:17→21:54)
[2023-05-18 12:01] LABS: Glucose, Whole Blood 306 mg/dL (60-115)
--- NOTE | 2023-05-18 12:26 | P.PNPSI_ITS ---
Subjective Subjective Date of Service: 05/18/23 Reason For Visit: hallucinations confusion Interim History: calm, cooperative. no change in presentation. seems quicker to respond and less doubtful of herself. perhaps slight improvement in cognitive performance. per staff, variable mood. eating and sleeping well. denies anx/dep. Mental Status Exam Mental Status Exam Narrative: calm, cooperative, diminutive. disheveled. general PMR. fair eye contact, speech nml rate, soft, decr prosody, decr amount. thoughts linear/relevant interchange; paucity of thought. affect constricted, hypo-intense, non-labile. no SI/SIBI/HI/AVH expressed. gross cognitive impairment. Diagnostics Vital Signs (24Hr): Vital Signs - 24 hr 05/17/23 19:40 05/18/23 08:37 Temperature 98.4 F 97.8 F Pulse Rate 58 57 Respiratory Rate 18 18 Blood Pressure 129/66 118/70 Pulse Oximetry 96 96 Oxygen Delivery Method Room Air Room Air BMI result Body Mass Index 30.2 Labs 04/08/23 09:08 05/14/23 07:56 Labs: Laboratory Results - last 48 hr 05/16/23 05/16/23 05/16/23 12:46 20:02 21:07 POC Glucose 293 H 370 H* 402 H* 05/16/23 05/17/23 05/17/23 21:09 07:46 12:05 POC Glucose 338 H 272 H 245 H 05/17/23 05/17/23 05/18/23 16:44 19:35 08:39 POC Glucose 292 H 321 H 225 H 05/18/23 11:56 POC Glucose 306 H Imaging Radiology Impressions: ITS Impressions Brain MRI 04/03/23 15:30 IMPRESSION: No acute infarct, mass lesion, intracranial hemorrhage, or evidence of hydrocephalus. Mild nonspecific T2/FLAIR hyperintensity in the cerebral white matter and danny presumably on the basis of chronic microangiopathy. Medications Medications Current Medications Acetaminophen (Acetaminophen 325 Mg Tablet) 650 mg PO Q6H PRN PRN Reason: Headache/Pain Mild Scale (1-3) Last Admin: 05/06/23 20:10 Dose: 650 mg Al Hydroxide/Mg Hydroxide (Magnesium Hydrox/Alum Hydrox 30 Ml Oral.Susp) 30 ml PO Q6H PRN PRN Reason: Heartburn/Nausea Atorvastatin Calcium (Atorvastatin Calcium 40 Mg Tablet) 40 mg PO DAILY [facility] Last Admin: 05/18/23 09:16 Dose: 40 mg Dextrose (Dextrose 50 % 25 Gm/50 Ml Syringe) 25 gm IVPUSH Q15M PRN; Protocol PRN Reason: per Hypoglycemia Standing Ord. Donepezil HCl (Donepezil Hcl 5 Mg Tablet) 5 mg PO DAILY [facility] Last Admin: 05/18/23 09:16 Dose: 5 mg Empagliflozin (Empagliflozin 25 Mg Tablet) 25 mg PO DAILY [facility] Last Admin: 05/18/23 09:16 Dose: 25 mg Famotidine (Famotidine 20 Mg Tablet) 20 mg PO DAILY [facility] Last Admin: 05/18/23 09:16 Dose: 20 mg Glucose (Glucose Gel 15 Gm Gel..Gram.) 15 gm PO Q15M PRN; Protocol PRN Reason: per Hypoglycemia Standing Ord. Insulin Human Lispro (Insulin Lispro 100 Unit/Ml 3 Ml Vial) 0 unit SUBCUT QIDACHS [facility]; Protocol Last Admin: 05/18/23 09:17 Dose: 4 unit Magnesium Hydroxide (Milk Of Magnesia 30 Ml Oral.Susp) 30 ml PO DAILY PRN PRN Reason: Constipation Memantine (Memantine Hcl 5 Mg Tablet) 5 mg PO BID [facility] Last Admin: 05/18/23 09:16 Dose: 5 mg Metformin HCl (Metformin Hcl 1,000 Mg Tablet) 1,000 mg PO BID [facility] Last Admin: 05/18/23 09:16 Dose: 1,000 mg Olanzapine (Olanzapine 2.5 Mg Tablet) 2.5 mg PO Q4H PRN PRN Reason: anxiety/agitation Last Admin: 04/29/23 17:17 Dose: 2.5 mg Olanzapine (Olanzapine 2.5 Mg Tablet) 2.5 mg PO BEDTIME [facility] Last Admin: 05/17/23 21:16 Dose: 2.5 mg Omeprazole (Omeprazole 20 Mg Capsule.Dr) 20 mg PO DAILY [facility] Last Admin: 05/18/23 09:16 Dose: 20 mg Prednisone (Prednisone 5 Mg Tablet) 15 mg PO BID [facility] Last Admin: 05/18/23 09:16 Dose: 15 mg Sertraline HCl (Sertraline Hcl 50 Mg Tablet) 50 mg PO DAILY [facility] Last Admin: 05/18/23 09:16 Dose: 50 mg Trazodone HCl (Trazodone Hcl 50 Mg Tablet) 50 mg PO BEDTIME MRX1 PRN PRN Reason: Insomnia Last Admin: 05/16/23 20:42 Dose: 50 mg Allergies Allergies Allergy/AdvReac Type Severity Reaction Status Date / Time No Known Allergies Allergy Verified 03/23/23 18:13 Assessment & Plan Assessment & Plan (1) Dementia: Status: Acute Code(s): F03.90 - Unspecified dementia, unspecified severity, without behavioral disturbance, psychotic disturbance, mood disturbance, and anxiety Assessment and Plan: 57 years old woman with somewhat rapidly progressing dementia or symptoms of dementia with CSF protein of 88 but otherwise no definite clue about her diagnosis. I discussed the case with neurology service at [facility] and they suggested that the workup has been appropriate and thorough and it was not clear if any further investigations were needed. Also, they did not have beds available for transfer According to their experience, this level of CSF protein could be seen and degenerative disorders but could also be seen in some type of spine pathology, which we have not investigated. In any case, high CSF protein without elevation of cells and without any significant brain lesions on MRI, does not suggest malignancy or vasculitis type of pathology. At this time, after discussing the case with the neurologist in [place], my recommendation is to treat her for degenerative dementia appearing in young age. Some CSF tests are pending which may confirm this notion. PET scan can also help. On the other hand, further CSF analysis and investigations for vasculitis like brain biopsy are not warranted. As far as treatment of dementia is concerned, it is symptomatic. I would start with donepezil 5 mg daily and after a week would add memantine 5 mg twice a day. These are the 2 types of medicines available at this time. Finally, her placement could be an issue as she would not be able to live independently Plan 05/05/23 Pt with gross disorganization b sister give hx of more gradual deterioration neuro note reviewed chart reviewed start aricept some csf results pending consider pet if available ?05/07/2023: No changes to current treatment plan.? Treatment team working on complex disposition which may include instituted living in [place] 05/08 continue tx. 05/09 continue tx. 05/10:? neuro believes Dx more likely dementia at this point, consulted with [place] neuro who informed him protein of 88 may sometimes be seen in dementia or spinal disorders and that w/u thus far here had been thorough and adequate.? plan to treat as dementia for now.? neuro rec starting donepezil and 1 week later memantine.? donepezil started 5 days ago, memantine scheduled to be started in 3 days.? 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 per review of [email or web address], their recommended taper for this pt's duration of therapy and daily dose is to reduce by 5 mg/day every 1-2 weeks.? as her time on steroids has been relatively short, we would proceed with the more aggressive taper.? in any event, dosing to be reduced by 5 mg/day as of today. 05/11: all labs results in, positives are for elevated CSF protein/albumin and pattern of CSF protein c/w alzheimer's dementia. continue induction on cholinesterase inhibitor, pednisone taper, work on dispo planning. 05/12: no change in presentation. discharge planning aggressively underway. start memantine tomorrow. currently planning for discharge monday. 05/13: memantine started today. decrease zyprexa at HS from 5 mg to 2.5 mg in attempt to decrease overall sedation. plan to decrease prednisone by 5 mg/day on monday. 05/14: continue current mgmt. decrease prednisone by 5 mg/day as of tomorrow morning. dispo planning underway. 05/15: continue current mgmt. family meeting tomorrow with pt's daughter and HCP, bakari. 05/16: family mtg held. SW looking into rest homes, family to pursue involving extended family for a place for pt to stay. FSBS elevated, prednisone taper ongoing, SSI being used. 05/17: no change in mgmt. met with jigna ACKERMAN and MEKA bunch to discuss dispo options. rest home is not an option, STR does not appear to be likely to be an option but is being pursued today. awaiting word from daughter on option to DC to brother's home. will need assisted care daily for DM mgmt until no longer requiring SSI, however. per report, her insurance does not cover VNA. 05/18: stable presentation. requesting new MoCA and ACLS as pt's cognition seems to have improved slightly since treatment for AD began. Reason for continued inpatient stay Substantial Risk for: inability to function and rapid decompensation Time Spent With Patient Time: Total time managing care of this patient today _25___ minutes.
[2023-05-18 17:27] LABS: Glucose, Whole Blood 214 mg/dL (60-115)
[2023-05-18 21:20] VITALS: BP 123/66; PULSE 66; RESP 18; O2SAT 97
[2023-05-18 21:35] LABS: Glucose, Whole Blood 288 mg/dL (60-115)
[2023-05-18] MEDS: OLANZapine 2.5 MG TABLET PO (21:49)
[2023-05-19 08:53] LABS: Glucose, Whole Blood 193 mg/dL (60-115)
[2023-05-19] MEDS: metFORMIN HCl 1,000 MG TABLET 1000 MG PO ×2 (09:07→21:00)
[2023-05-19] MEDS: Famotidine 20 MG TABLET PO (09:07)
[2023-05-19] MEDS: Omeprazole 20 MG CAPSULE.DR PO (09:08)
[2023-05-19] MEDS: Insulin Lispro 100 UNIT/ML 3 ML VIAL SUBCUT ×3 (09:08→21:21)
[2023-05-19] MEDS: Sertraline HCL 50 MG TABLET PO (09:08)
[2023-05-19] MEDS: predniSONE 5 MG TABLET 15 MG PO ×2 (09:08→20:59)
[2023-05-19] MEDS: Donepezil HCl 5 MG TABLET PO (09:08)
[2023-05-19] MEDS: Memantine HCl 5 MG TABLET PO ×2 (09:08→20:58)
[2023-05-19] MEDS: Empagliflozin 25 MG TABLET PO (09:08)
[2023-05-19] MEDS: Atorvastatin Calcium 40 MG TABLET PO (09:08)
[2023-05-19 09:22] VITALS: BP 118/67; PULSE 65; RESP 18; TEMP 36.7; O2SAT 98
--- NOTE | 2023-05-19 11:38 | P.PNPSI_ITS ---
Subjective Subjective Date of Service: 05/19/23 Reason For Visit: hallucinations confusion Interim History: no change in presentation. per staff, taking meds. brighter. denies psych Sx. safe, sleeping. Mental Status Exam Mental Status Exam Narrative: calm, cooperative, diminutive. disheveled. general PMR. fair eye contact, speech nml rate, soft, decr prosody, decr amount. thoughts linear/relevant interchange; paucity of thought. affect constricted, hypo-intense, non-labile. no SI/SIBI/HI/AVH expressed. gross cognitive impairment. Diagnostics Vital Signs (24Hr): Vital Signs - 24 hr 05/18/23 21:20 05/19/23 09:22 Temperature 98.0 F Pulse Rate 66 65 Respiratory Rate 18 18 Blood Pressure 123/66 118/67 Pulse Oximetry 97 98 Oxygen Delivery Method Room Air Room Air BMI result Body Mass Index 30.6 Labs 04/08/23 09:08 05/14/23 07:56 Labs: Laboratory Results - last 48 hr 05/17/23 05/17/23 05/17/23 12:05 16:44 19:35 POC Glucose 245 H 292 H 321 H 05/18/23 05/18/23 05/18/23 08:39 11:56 17:22 POC Glucose 225 H 306 H 214 H 05/18/23 05/19/23 21:27 08:49 POC Glucose 288 H 193 H Imaging Radiology Impressions: ITS Impressions Brain MRI 04/03/23 15:30 IMPRESSION: No acute infarct, mass lesion, intracranial hemorrhage, or evidence of hydrocephalus. Mild nonspecific T2/FLAIR hyperintensity in the cerebral white matter and danny presumably on the basis of chronic microangiopathy. Medications Medications Current Medications Acetaminophen (Acetaminophen 325 Mg Tablet) 650 mg PO Q6H PRN PRN Reason: Headache/Pain Mild Scale (1-3) Last Admin: 05/06/23 20:10 Dose: 650 mg Al Hydroxide/Mg Hydroxide (Magnesium Hydrox/Alum Hydrox 30 Ml Oral.Susp) 30 ml PO Q6H PRN PRN Reason: Heartburn/Nausea Atorvastatin Calcium (Atorvastatin Calcium 40 Mg Tablet) 40 mg PO DAILY [facility] Last Admin: 05/19/23 09:08 Dose: 40 mg Dextrose (Dextrose 50 % 25 Gm/50 Ml Syringe) 25 gm IVPUSH Q15M PRN; Protocol PRN Reason: per Hypoglycemia Standing Ord. Donepezil HCl (Donepezil Hcl 5 Mg Tablet) 5 mg PO DAILY [facility] Last Admin: 05/19/23 09:08 Dose: 5 mg Empagliflozin (Empagliflozin 25 Mg Tablet) 25 mg PO DAILY [facility] Last Admin: 05/19/23 09:08 Dose: 25 mg Famotidine (Famotidine 20 Mg Tablet) 20 mg PO DAILY [facility] Last Admin: 05/19/23 09:07 Dose: 20 mg Glucose (Glucose Gel 15 Gm Gel..Gram.) 15 gm PO Q15M PRN; Protocol PRN Reason: per Hypoglycemia Standing Ord. Insulin Human Lispro (Insulin Lispro 100 Unit/Ml 3 Ml Vial) 0 unit SUBCUT QIDAC [facility]; Protocol Last Admin: 05/19/23 09:08 Dose: 2 unit Magnesium Hydroxide (Milk Of Magnesia 30 Ml Oral.Susp) 30 ml PO DAILY PRN PRN Reason: Constipation Memantine (Memantine Hcl 5 Mg Tablet) 5 mg PO BID [facility] Last Admin: 05/19/23 09:08 Dose: 5 mg Metformin HCl (Metformin Hcl 1,000 Mg Tablet) 1,000 mg PO BID [facility] Last Admin: 05/19/23 09:07 Dose: 1,000 mg Olanzapine (Olanzapine 2.5 Mg Tablet) 2.5 mg PO Q4H PRN PRN Reason: anxiety/agitation Last Admin: 04/29/23 17:17 Dose: 2.5 mg Olanzapine (Olanzapine 2.5 Mg Tablet) 2.5 mg PO BEDTIME [facility] Last Admin: 05/18/23 21:49 Dose: 2.5 mg Omeprazole (Omeprazole 20 Mg Capsule.Dr) 20 mg PO DAILY [facility] Last Admin: 05/19/23 09:08 Dose: 20 mg Prednisone (Prednisone 5 Mg Tablet) 15 mg PO BID [facility] Last Admin: 05/19/23 09:08 Dose: 15 mg Sertraline HCl (Sertraline Hcl 50 Mg Tablet) 50 mg PO DAILY [facility] Last Admin: 05/19/23 09:08 Dose: 50 mg Trazodone HCl (Trazodone Hcl 50 Mg Tablet) 50 mg PO BEDTIME MRX1 PRN PRN Reason: Insomnia Last Admin: 05/16/23 20:42 Dose: 50 mg Allergies Allergies Allergy/AdvReac Type Severity Reaction Status Date / Time No Known Allergies Allergy Verified 03/23/23 18:13 Assessment & Plan Assessment & Plan (1) Dementia: Status: Acute Code(s): F03.90 - Unspecified dementia, unspecified severity, without behavioral disturbance, psychotic disturbance, mood disturbance, and anxiety Assessment and Plan: 57 years old woman with somewhat rapidly progressing dementia or symptoms of dementia with CSF protein of 88 but otherwise no definite clue about her diagnosis. I discussed the case with neurology service at [facility] and they suggested that the workup has been appropriate and thorough and it was not clear if any further investigations were needed. Also, they did not have beds available for transfer According to their experience, this level of CSF protein could be seen and degenerative disorders but could also be seen in some type of spine pathology, which we have not investigated. In any case, high CSF protein without elevation of cells and without any significant brain lesions on MRI, does not suggest malignancy or vasculitis type of pathology. At this time, after discussing the case with the neurologist in [place], my recommendation is to treat her for degenerative dementia appearing in young age. Some CSF tests are pending which may confirm this notion. PET scan can also help. On the other hand, further CSF analysis and investigations for vasculitis like brain biopsy are not warranted. As far as treatment of dementia is concerned, it is symptomatic. I would start with donepezil 5 mg daily and after a week would add memantine 5 mg twice a day. These are the 2 types of medicines available at this time. Finally, her placement could be an issue as she would not be able to live independently Plan 05/05/23 Pt with gross disorganization b sister give hx of more gradual deterioration neuro note reviewed chart reviewed start aricept some csf results pending consider pet if available ?05/07/2023: No changes to current treatment plan.? Treatment team working on complex disposition which may include instituted living in [place] 05/08 continue tx. 05/09 continue tx. 05/10:? neuro believes Dx more likely dementia at this point, consulted with [place] neuro who informed him protein of 88 may sometimes be seen in dementia or spinal disorders and that w/u thus far here had been thorough and adequate.? plan to treat as dementia for now.? neuro rec starting donepezil and 1 week later memantine.? donepezil started 5 days ago, memantine scheduled to be started in 3 days.? 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 per review of [employer], their recommended taper for this pt's duration of therapy and daily dose is to reduce by 5 mg/day every 1-2 weeks.? as her time on steroids has been relatively short, we would proceed with the more aggressive taper.? in any event, dosing to be reduced by 5 mg/day as of today. 05/11: all labs results in, positives are for elevated CSF protein/albumin and pattern of CSF protein c/w alzheimer's dementia. continue induction on cholinesterase inhibitor, pednisone taper, work on dispo planning. 05/12: no change in presentation. discharge planning aggressively underway. start memantine tomorrow. currently planning for discharge monday. 05/13: memantine started today. decrease zyprexa at HS from 5 mg to 2.5 mg in attempt to decrease overall sedation. plan to decrease prednisone by 5 mg/day on monday. 05/14: continue current mgmt. decrease prednisone by 5 mg/day as of tomorrow morning. dispo planning underway. 05/15: continue current mgmt. family meeting tomorrow with pt's daughter and HCP, bakari. 05/16: family mtg held. SW looking into rest homes, family to pursue involving extended family for a place for pt to stay. FSBS elevated, prednisone taper ongoing, SSI being used. 05/17: no change in mgmt. met with jigna ACKERMAN and MEKA bunch to discuss dispo options. rest home is not an option, STR does not appear to be likely to be an option but is being pursued today. awaiting word from daughter on option to DC to brother's home. will need prison care daily for DM mgmt until no longer requiring SSI, however. per report, her insurance does not cover VNA. 05/18: stable presentation. requesting new MoCA and ACLS as pt's cognition seems to have improved slightly since treatment for AD began. 05/19: stable presentation. daughter working on dispo options. ACLS unchanged from prior. [facility]. continue prednisone taper monday. Reason for continued inpatient stay Substantial Risk for: inability to function and rapid decompensation Time Spent With Patient Time: Total time managing care of this patient today __25__ minutes.
[2023-05-19 12:57] LABS: Glucose, Whole Blood 190 mg/dL (60-115)
[2023-05-19 17:05] LABS: Glucose, Whole Blood 294 mg/dL (60-115)
[2023-05-19 19:40] VITALS: BP 140/76; PULSE 61; RESP 16; TEMP 36.5; O2SAT 97
[2023-05-19] MEDS: OLANZapine 2.5 MG TABLET PO (21:00)
[2023-05-19 21:07] LABS: Glucose, Whole Blood 311 mg/dL (60-115)
[2023-05-20 08:00] VITALS: BP 131/66; PULSE 60; RESP 18; TEMP 36.7; O2SAT 99
[2023-05-20 08:45] LABS: Glucose, Whole Blood 225 mg/dL (60-115)
[2023-05-20] MEDS: predniSONE 5 MG TABLET 15 MG PO ×2 (09:04→20:14)
[2023-05-20] MEDS: Empagliflozin 25 MG TABLET PO (09:04)
[2023-05-20] MEDS: Famotidine 20 MG TABLET PO (09:05)
[2023-05-20] MEDS: Donepezil HCl 5 MG TABLET PO (09:05)
[2023-05-20] MEDS: Atorvastatin Calcium 40 MG TABLET PO (09:05)
[2023-05-20] MEDS: metFORMIN HCl 1,000 MG TABLET 1000 MG PO ×2 (09:05→20:14)
[2023-05-20] MEDS: Sertraline HCL 50 MG TABLET PO (09:05)
[2023-05-20] MEDS: Memantine HCl 5 MG TABLET PO ×2 (09:06→20:14)
[2023-05-20] MEDS: Omeprazole 20 MG CAPSULE.DR PO (09:06)
[2023-05-20] MEDS: Insulin Lispro 100 UNIT/ML 3 ML VIAL SUBCUT ×4 (09:12→20:15)
--- NOTE | 2023-05-20 10:33 | P.PNPSI_ITS ---
Subjective Subjective Date of Service: 05/20/23 Reason For Visit: hallucinations confusion Subjective Notes: Conditional Voluntary Medical Problems Affecting Mental Status: No Interim History: Less agitated. Not screaming. Noted to be pacing and disorganized. Sleeping and eating OK. Medication Compliance: Yes Side effects from medications: No Attending Groups: No Review of Systems Acute medical concerns: No accuchecks ranged [id number] in last 24 hours Medical Review of Systems: unchanged Mental Status Exam Mental Status Exam Patient Appearance: Disheveled (hair greasy) Patient Orientation: Person, Place (knows she's in a psych place) and Time (o riented to year. Thinks it is Lucía) Level of Consciousness: Alert Patient Behavior: Appropriate and Pacing Mood Description: Apprehensive Affect Description: Anxious Patient Cognition Impaired: Yes Ability to Follow Directions: Good Speech Pattern: Soft-Spoken Memory Description: Recent Impaired Hallucinations: None Delusions: Not Present Thought Process: Disoriented Thought Content: positive for Slowed Thinking Depressive Symptoms: Increased Anxiety Judgement: Fair Diagnostics Vital Signs (24Hr): Vital Signs - 24 hr 05/19/23 19:40 05/20/23 08:00 Temperature 97.7 F 98.1 F Pulse Rate 61 60 Respiratory Rate 16 18 Blood Pressure 140/76 H 131/66 Pulse Oximetry 97 99 Oxygen Delivery Method Room Air BMI result Body Mass Index 30.6 Labs 04/08/23 09:08 05/14/23 07:56 Labs: Laboratory Results - last 48 hr 05/18/23 05/18/23 05/18/23 11:56 17:22 21:27 POC Glucose 306 H 214 H 288 H 05/19/23 05/19/23 05/19/23 08:49 12:53 17:01 POC Glucose 193 H 190 H 294 H 05/19/23 05/20/23 20:55 08:40 POC Glucose 311 H 225 H Imaging Radiology Impressions: ITS Impressions Brain MRI 04/03/23 15:30 IMPRESSION: No acute infarct, mass lesion, intracranial hemorrhage, or evidence of hydrocephalus. Mild nonspecific T2/FLAIR hyperintensity in the cerebral white matter and danny presumably on the basis of chronic microangiopathy. Medications Medications Current Medications Acetaminophen (Acetaminophen 325 Mg Tablet) 650 mg PO Q6H PRN PRN Reason: Headache/Pain Mild Scale (1-3) Last Admin: 05/06/23 20:10 Dose: 650 mg Al Hydroxide/Mg Hydroxide (Magnesium Hydrox/Alum Hydrox 30 Ml Oral.Susp) 30 ml PO Q6H PRN PRN Reason: Heartburn/Nausea Atorvastatin Calcium (Atorvastatin Calcium 40 Mg Tablet) 40 mg PO DAILY [facility] Last Admin: 05/20/23 09:05 Dose: 40 mg Dextrose (Dextrose 50 % 25 Gm/50 Ml Syringe) 25 gm IVPUSH Q15M PRN; Protocol PRN Reason: per Hypoglycemia Standing Ord. Donepezil HCl (Donepezil Hcl 5 Mg Tablet) 5 mg PO DAILY [facility] Last Admin: 05/20/23 09:05 Dose: 5 mg Empagliflozin (Empagliflozin 25 Mg Tablet) 25 mg PO DAILY [facility] Last Admin: 05/20/23 09:04 Dose: 25 mg Famotidine (Famotidine 20 Mg Tablet) 20 mg PO DAILY [facility] Last Admin: 05/20/23 09:05 Dose: 20 mg Glucose (Glucose Gel 15 Gm Gel..Gram.) 15 gm PO Q15M PRN; Protocol PRN Reason: per Hypoglycemia Standing Ord. Insulin Human Lispro (Insulin Lispro 100 Unit/Ml 3 Ml Vial) 0 unit SUBCUT QIDACHS [facility]; Protocol Last Admin: 05/20/23 09:12 Dose: 4 unit Magnesium Hydroxide (Milk Of Magnesia 30 Ml Oral.Susp) 30 ml PO DAILY PRN PRN Reason: Constipation Memantine (Memantine Hcl 5 Mg Tablet) 5 mg PO BID [facility] Last Admin: 05/20/23 09:06 Dose: 5 mg Metformin HCl (Metformin Hcl 1,000 Mg Tablet) 1,000 mg PO BID [facility] Last Admin: 05/20/23 09:05 Dose: 1,000 mg Olanzapine (Olanzapine 2.5 Mg Tablet) 2.5 mg PO Q4H PRN PRN Reason: anxiety/agitation Last Admin: 04/29/23 17:17 Dose: 2.5 mg Olanzapine (Olanzapine 2.5 Mg Tablet) 2.5 mg PO BEDTIME [facility] Last Admin: 05/19/23 21:00 Dose: 2.5 mg Omeprazole (Omeprazole 20 Mg Capsule.Dr) 20 mg PO DAILY [facility] Last Admin: 05/20/23 09:06 Dose: 20 mg Prednisone (Prednisone 5 Mg Tablet) 15 mg PO DAILY [facility] Last Admin: 05/20/23 09:04 Dose: 15 mg Prednisone (Prednisone 5 Mg Tablet) 15 mg PO BEDTIME [facility] Stop: 05/22/23 20:59 Last Admin: 05/19/23 20:59 Dose: 15 mg Prednisone (Prednisone 10 Mg Tablet) 10 mg PO BEDTIME [facility] Sertraline HCl (Sertraline Hcl 50 Mg Tablet) 50 mg PO DAILY [facility] Last Admin: 05/20/23 09:05 Dose: 50 mg Trazodone HCl (Trazodone Hcl 50 Mg Tablet) 50 mg PO BEDTIME MRX1 PRN PRN Reason: Insomnia Last Admin: 05/16/23 20:42 Dose: 50 mg Allergies Allergies Allergy/AdvReac Type Severity Reaction Status Date / Time No Known Allergies Allergy Verified 03/23/23 18:13 Assessment & Plan Assessment & Plan (1) Dementia: Status: Acute Code(s): F03.90 - Unspecified dementia, unspecified severity, without behavioral distur bance, psychotic disturbance, mood disturbance, and anxiety Assessment and Plan: 57 years old woman with somewhat rapidly progressing dementia or symptoms of dementia with CSF protein of 88 but otherwise no definite clue about her diagnosis. I discussed the case with neurology service at [facility] and they suggested that the workup has been appropriate and thorough and it was not clear if any further investigations were needed. Also, they did not have beds available for transfer According to their experience, this level of CSF protein could be seen and degenerative disorders but could also be seen in some type of spine pathology, which we have not investigated. In any case, high CSF protein without elevation of cells and without any significant brain lesions on MRI, does not suggest malignancy or vasculitis type of pathology. At this time, after discussing the case with the neurologist in [place], my recommendation is to treat her for degenerative dementia appearing in young age. Some CSF tests are pending which may confirm this notion. PET scan can also help. On the other hand, further CSF analysis and investigations for vasculitis like brain biopsy are not warranted. As far as treatment of dementia is concerned, it is symptomatic. I would start with donepezil 5 mg daily and after a week would add memantine 5 mg twice a day. These are the 2 types of medicines available at this time. Finally, her placement could be an issue as she would not be able to live independently Plan 05/05/23 Pt with gross disorganization b sister give hx of more gradual deterioration neuro note reviewed chart reviewed start aricept some csf results pending consider pet if available ?05/07/2023: No changes to current treatment plan.? Treatment team working on complex disposition which may include instituted living in [place] 05/08 continue tx. 05/09 continue tx. 05/10:? neuro believes Dx more likely dementia at this point, consulted with [facility] who informed him protein of 88 may sometimes be seen in dementia or spinal disorders and that w/u thus far here had been thorough and adequate.? plan to treat as dementia for now.? neuro rec starting donepezil and 1 week later me rafaeline.? donepezil started 5 days ago, memantine scheduled to be started in 3 days.? 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 per review of [facility], their recommended taper for this pt's duration of therapy and daily dose is to reduce by 5 mg/day every 1-2 weeks.? as her time on steroids has been relatively short, we would proceed with the more aggressive taper.? in any event, dosing to be reduced by 5 mg/day as of today. 05/11: all labs results in, positives are for elevated CSF protein/albumin and pattern of CSF protein c/w alzheimer's dementia. continue induction on cholinesterase inhibitor, pednisone taper, work on dispo planning. 05/12: no change in presentation. discharge planning aggressively underway. start memantine tomorrow. currently planning for discharge monday. 05/13: memantine started today. decrease zyprexa at HS from 5 mg to 2.5 mg in attempt to decrease overall sedation. plan to decrease prednisone by 5 mg/day on monday. 05/14: continue current mgmt. decrease prednisone by 5 mg/day as of tomorrow morning. dispo planning underway. 05/15: continue current mgmt. family meeting tomorrow with pt's daughter and HCP, bakari. 05/16: family mtg held. SW looking into rest homes, family to pursue involving extended family for a place for pt to stay. FSBS elevated, prednisone taper ongoing, SSI being used. 05/17: no change in mgmt. met with jigna ACKERMAN and MEKA bunch to discuss dispo options. rest home is not an option, STR does not appear to be likely to be an option but is being pursued today. awaiting word from daughter on option to DC to brother's home. will need chcf care daily for DM mgmt until no longer requiring SSI, however. per report, her insurance does not cover VNA. 05/18: stable presentation. requesting new MoCA and ACLS as pt's cognition seems to have improved slightly since treatment for AD began. 05/19: stable presentation. daughter working on dispo options. ACLS unchanged from prior. T/C transfer to [facility] today. continue prednisone taper monday. 05/20 Less agitated. No med changes today. Reason for continued inpatient stay Substantial Risk for: inability to function Time Spent With Patient Time: Total time managing care of this patient today 20____ minutes.
[2023-05-20 12:44] LABS: Glucose, Whole Blood 271 mg/dL (60-115)
[2023-05-20 17:16] LABS: Glucose, Whole Blood 341 mg/dL (60-115)
[2023-05-20 20:08] LABS: Glucose, Whole Blood 301 mg/dL (60-115)
[2023-05-20] MEDS: OLANZapine 2.5 MG TABLET PO (20:14)
[2023-05-20 20:15] VITALS: BP 124/78; PULSE 73; RESP 16; TEMP 36.4; O2SAT 95
[2023-05-21 08:05] VITALS: BP 130/64; PULSE 71; RESP 18; TEMP 36.6; O2SAT 98
[2023-05-21 08:07] LABS: Glucose, Whole Blood 206 mg/dL (60-115)
[2023-05-21 08:35] LABS: Anion Gap 17 (12-20); Blood Urea Nitrogen 22 mg/dL (9-16); Calcium 9.5 mg/dL (8.4-10.2); Carbon Dioxide 29 mmol/L (22-29); Chloride 100 mmol/L (96-108); Estimated Glomerular Filt Rate > 60; Glucose Random 208 mg/dL (60-115); Potassium 4.7 mmol/L (3.3-5.1); Sodium 141 mmol/L (135-145)
[2023-05-21] MEDS: Insulin Lispro 100 UNIT/ML 3 ML VIAL SUBCUT ×4 (08:35→21:25)
[2023-05-21] MEDS: Omeprazole 20 MG CAPSULE.DR PO (08:38)
[2023-05-21] MEDS: Sertraline HCL 50 MG TABLET PO (08:38)
[2023-05-21] MEDS: Empagliflozin 25 MG TABLET PO (08:38)
[2023-05-21] MEDS: Memantine HCl 5 MG TABLET PO ×2 (08:38→21:25)
[2023-05-21] MEDS: Donepezil HCl 5 MG TABLET PO (08:39)
[2023-05-21] MEDS: Atorvastatin Calcium 40 MG TABLET PO (08:39)
[2023-05-21] MEDS: metFORMIN HCl 1,000 MG TABLET 1000 MG PO ×2 (08:39→21:26)
[2023-05-21] MEDS: predniSONE 5 MG TABLET 15 MG PO ×2 (08:40→21:25)
[2023-05-21] MEDS: Famotidine 20 MG TABLET PO (08:40)
--- NOTE | 2023-05-21 08:41 | HO.PSYCHPN ---
Subjective Subjective Date of Service: 05/21/23 Reason For Visit: hallucinations confusion Subjective Notes: Conditional Voluntary Medical Problems Affecting Mental Status: No Interim History: Slept OK. Eating OK. Visible in the day room. Medication Compliance: Yes Side effects from medications: No Attending Groups: Yes Review of Systems Acute medical concerns: No Medical Review of Systems: unchanged Mental Status Exam Mental Status Exam Patient Appearance: Disheveled Patient Orientation: Person, Place (states she is at the time share) and Time (thinks it is Fall, unable to say the year) Level of Consciousness: Alert Patient Behavior: Appropriate Mood Description: Calm Affect Description: Anxious Patient Cognition Impaired: Yes Ability to Follow Directions: Good Speech Pattern: Difficulty Finding Words Memory Description: Working Impaired Hallucinations: None Delusions: Not Present Thought Process: Disoriented and Slowed Thinking Thought Content: positive for Slowed Thinking Depressive Symptoms: Increased Anxiety and Diff. Making Decisions Judgement: Fair Diagnostics Vital Signs (24Hr): Vital Signs - 24 hr 05/20/23 20:15 Temperature 97.6 F Pulse Rate 73 Respiratory Rate 16 Blood Pressure 124/78 Pulse Oximetry 95 Oxygen Delivery Method Room Air BMI result Body Mass Index 30.6 Labs 04/08/23 09:08 05/21/23 08:06 Labs: Laboratory Results - last 48 hr 05/19/23 05/19/23 05/19/23 08:49 12:53 17:01 Sodium Potassium Chloride Carbon Dioxide Anion Gap BUN Creatinine Estim Creat Clear Calc Estimated GFR POC Glucose 193 H 190 H 294 H Random Glucose Calcium 05/19/23 05/20/23 05/20/23 20:55 08:40 12:40 Sodium Potassium Chloride Carbon Dioxide Anion Gap BUN Creatinine Estim Creat Clear Calc Estimated GFR POC Glucose 311 H 225 H 271 H Random Glucose Calcium 05/20/23 05/20/23 05/21/23 17:12 20:03 08:00 Sodium Potassium Chloride Carbon Dioxide Anion Gap BUN Creatinine Estim Creat Clear Calc Estimated GFR POC Glucose 341 H 301 H 206 H Random Glucose Calcium 05/21/23 08:06 Sodium 141 Potassium 4.7 Chloride 100 Carbon Dioxide 29 Anion Gap 17 BUN 22 H Creatinine 0.81 Estim Creat Clear Calc 73.0 Estimated GFR > 60 POC Glucose Random Glucose 208 H Calcium 9.5 Imaging Radiology Impressions: ITS Impressions Brain MRI 04/03/23 15:30 IMPRESSION: No acute infarct, mass lesion, intracranial hemorrhage, or evidence of hydrocephalus. Mild nonspecific T2/FLAIR hyperintensity in the cerebral white matter and danny presumably on the basis of chronic microangiopathy. Medications Medications Current Medications Acetaminophen (Acetaminophen 325 Mg Tablet) 650 mg PO Q6H PRN PRN Reason: Headache/Pain Mild Scale (1-3) Last Admin: 05/06/23 20:10 Dose: 650 mg Al Hydroxide/Mg Hydroxide (Magnesium Hydrox/Alum Hydrox 30 Ml Oral.Susp) 30 ml PO Q6H PRN PRN Reason: Heartburn/Nausea Atorvastatin Calcium (Atorvastatin Calcium 40 Mg Tablet) 40 mg PO DAILY [facility] Last Admin: 05/20/23 09:05 Dose: 40 mg Dextrose (Dextrose 50 % 25 Gm/50 Ml Syringe) 25 gm IVPUSH Q15M PRN; Protocol PRN Reason: per Hypoglycemia Standing Ord. Donepezil HCl (Donepezil Hcl 5 Mg Tablet) 5 mg PO DAILY [facility] Last Admin: 05/20/23 09:05 Dose: 5 mg Empagliflozin (Empagliflozin 25 Mg Tablet) 25 mg PO DAILY [facility] Last Admin: 05/20/23 09:04 Dose: 25 mg Famotidine (Famotidine 20 Mg Tablet) 20 mg PO DAILY [facility] Last Admin: 05/20/23 09:05 Dose: 20 mg Glucose (Glucose Gel 15 Gm Gel..Gram.) 15 gm PO Q15M PRN; Protocol PRN Reason: per Hypoglycemia Standing Ord. Insulin Human Lispro (Insulin Lispro 100 Unit/Ml 3 Ml Vial) 0 unit SUBCUT QIDACHS [facility]; Protocol Last Admin: 05/20/23 20:15 Dose: 8 unit Magnesium Hydroxide (Milk Of Magnesia 30 Ml Oral.Susp) 30 ml PO DAILY PRN PRN Reason: Constipation Memantine (Memantine Hcl 5 Mg Tablet) 5 mg PO BID [facility] Last Admin: 05/20/23 20:14 Dose: 5 mg Metformin HCl (Metformin Hcl 1,000 Mg Tablet) 1,000 mg PO BID [facility] Last Admin: 05/20/23 20:14 Dose: 1,000 mg Olanzapine (Olanzapine 2.5 Mg Tablet) 2.5 mg PO Q4H PRN PRN Reason: anxiety/agitation Last Admin: 04/29/23 17:17 Dose: 2.5 mg Olanzapine (Olanzapine 2.5 Mg Tablet) 2.5 mg PO BEDTIME [facility] Last Admin: 05/20/23 20:14 Dose: 2.5 mg Omeprazole (Omeprazole 20 Mg Capsule.Dr) 20 mg PO DAILY [facility] Last Admin: 05/20/23 09:06 Dose: 20 mg Prednisone (Prednisone 5 Mg Tablet) 15 mg PO DAILY [facility] Last Admin: 05/20/23 09:04 Dose: 15 mg Prednisone (Prednisone 5 Mg Tablet) 15 mg PO BEDTIME [facility] Stop: 05/22/23 20:59 Last Admin: 05/20/23 20:14 Dose: 15 mg Prednisone (Prednisone 10 Mg Tablet) 10 mg PO BEDTIME [facility] Sertraline HCl (Sertraline Hcl 50 Mg Tablet) 50 mg PO DAILY [facility] Last Admin: 05/20/23 09:05 Dose: 50 mg Trazodone HCl (Trazodone Hcl 50 Mg Tablet) 50 mg PO BEDTIME MRX1 PRN PRN Reason: Insomnia Last Admin: 05/16/23 20:42 Dose: 50 mg Allergies Allergies Allergy/AdvReac Type Severity Reaction Status Date / Time No Known Allergies Allergy Verified 03/23/23 18:13 Assessment & Plan Assessment & Plan (1) Dementia: Status: Acute Code(s): F03.90 - Unspecified dementia, unspecified severity, without behavioral disturbance, psychotic disturbance, mood disturbance, and anxiety Assessment and Plan: 57 years old woman with somewhat rapidly progressing dementia or symptoms of dementia with CSF protein of 88 but otherwise no definite clue about her diagnosis. I discussed the case with neurology service at [facility] and they suggested that the workup has been appropriate and thorough and it was not clear if any further investigations were needed. Also, they did not have beds available for transfer According to their experience, this level of CSF protein could be seen and degenerative disorders but could also be seen in some type of spine pathology, which we have not investigated. In any case, high CSF protein without elevation of cells and without any significant brain lesions on MRI, does not suggest malignancy or vasculitis type of pathology. At this time, after discussing the case with the neurologist in [place], my recommendation is to treat her for degenerative dementia appearing in young age. Some CSF tests are pending which may confirm this notion. PET scan can also help. On the other hand, further CSF analysis and investigations for vasculitis like brain biopsy are not warranted. As far as treatment of dementia is concerned, it is symptomatic. I would start with donepezil 5 mg daily and after a week would add memantine 5 mg twice a day. These are the 2 types of medicines available at this time. Finally, her placement could be an issue as she would not be able to live independently Plan 05/05/23 Pt with gross disorganization b sister give hx of more gradual deterioration neuro note reviewed chart reviewed start aricept some csf results pending consider pet if available ?05/07/2023: No changes to current treatment plan.? Treatment team working on complex disposition which may include instituted living in [place] 05/08 continue tx. 05/09 continue tx. 05/10:? neuro believes Dx more likely dementia at this point, consulted with [facility] neuro who informed him protein of 88 may sometimes be seen in dementia or spinal disorders and that w/u thus far here had been thorough and adequate.? plan to treat as dementia for now.? neuro rec starting donepezil and 1 week later memantine.? donepezil started 5 days ago, memantine scheduled to be started in 3 days.? 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 per review of [facility], their recommended taper for this pt's duration of therapy and daily dose is to reduce by 5 mg/day every 1-2 weeks.? as her time on steroids has been relatively short, we would proceed with the more aggressive taper.? in any event, dosing to be reduced by 5 mg/day as of today. 05/11: all labs results in, positives are for elevated CSF protein/albumin and pattern of CSF protein c/w alzheimer's dementia. continue induction on cholinesterase inhibitor, pednisone taper, work on dispo planning. 05/12: no change in presentation. discharge planning aggressively underway. start memantine tomorrow. currently planning for discharge monday. 05/13: memantine started today. decrease zyprexa at HS from 5 mg to 2.5 mg in attempt to decrease overall sedation. plan to decrease prednisone by 5 mg/day on monday. 05/14: continue current mgmt. decrease prednisone by 5 mg/day as of tomorrow morning. dispo planning underway. 05/15: continue current mgmt. family meeting tomorrow with pt's daughter and HCP, bakari. 05/16: family mtg held. SW looking into rest homes, family to pursue involving extended family for a place for pt to stay. FSBS elevated, prednisone taper ongoing, SSI being used. 05/17: no change in mgmt. met with jigna SW and MEKA bunch to discuss dispo options. rest home is not an option, STR does not appear to be likely to be an option but is being pursued today. awaiting word from daughter on option to DC to brother's home. will need chcf care daily for DM mgmt until no longer requiring SSI, however. per report, her insurance does not cover VNA. 05/18: stable presentation. requesting new MoCA and ACLS as pt's cognition seems to have improved slightly since treatment for AD began. 05/19: stable presentation. daughter working on dispo options. ACLS unchanged from prior. T/C transfer to [facility] today. continue prednisone taper monday. 05/20 Less agitated. No med changes today. 05/21: prednisone taper in process, consider transfer to [facility] Reason for continued inpatient stay Substantial Risk for: inability to function Time Spent With Patient Time: Total time managing care of this patient today __15__ minutes.
[2023-05-21 12:43] LABS: Glucose, Whole Blood 271 mg/dL (60-115)
--- NOTE | 2023-05-21 13:15 | PC.NURSE ---
Jessy is quiet but pleasant , Alert and oriented to name and sometimes task, and needs verbal Q's. Operations Management Trainee assisted her with shower, and to redress. Pt stated i feel like a whole new person seemed much brighter after her shower. Operations Management Trainee also assisted with oral hygiene.
[2023-05-21 17:29] LABS: Glucose, Whole Blood 416 mg/dL (60-115)
[2023-05-21 18:07] LABS: Glucose, Whole Blood 451 mg/dL (60-115)
[2023-05-21] MEDS: Insulin Lispro 100 UNIT/ML 3 ML VIAL 10 UNIT SUBCUT (18:41)
[2023-05-21 20:20] VITALS: BP 129/64; PULSE 60; RESP 18; TEMP 36.8; O2SAT 98
[2023-05-21 21:16] LABS: Glucose, Whole Blood 164 mg/dL (60-115)
[2023-05-21] MEDS: OLANZapine 2.5 MG TABLET PO (21:26)
[2023-05-22 08:20] VITALS: BP 121/60; PULSE 62; RESP 18; TEMP 36.6; O2SAT 96
[2023-05-22 08:24] LABS: Glucose, Whole Blood 197 mg/dL (60-115)
[2023-05-22] MEDS: Insulin Lispro 100 UNIT/ML 3 ML VIAL SUBCUT ×4 (09:19→20:43)
[2023-05-22] MEDS: Sertraline HCL 50 MG TABLET PO (09:20)
[2023-05-22] MEDS: Omeprazole 20 MG CAPSULE.DR PO (09:20)
[2023-05-22] MEDS: predniSONE 5 MG TABLET 15 MG PO (09:20)
[2023-05-22] MEDS: metFORMIN HCl 1,000 MG TABLET 1000 MG PO ×2 (09:21→20:40)
[2023-05-22] MEDS: Empagliflozin 25 MG TABLET PO (09:21)
[2023-05-22] MEDS: Memantine HCl 5 MG TABLET PO ×2 (09:21→20:40)
[2023-05-22] MEDS: Famotidine 20 MG TABLET PO (09:22)
[2023-05-22] MEDS: Donepezil HCl 5 MG TABLET PO (09:22)
[2023-05-22] MEDS: Atorvastatin Calcium 40 MG TABLET PO (09:23)
--- NOTE | 2023-05-22 10:56 | PM.NEU.E/N ---
EMG/Nerve Conduction Study Time Spent With Patient Time: Total time managing care of this patient today ____ minutes.
--- NOTE | 2023-05-22 12:17 | PM.EVENT ---
Event Note Date of Service: 05/22/23 Event Note: Pt with type 2 diabetes, non insulin dependent at home, now on steroid taper for presume autoimmune disorder per neurology. Currently on 15mg daily and 10mg bedtime. Has been experiencing steroid induced hyperglycemia. Current dm regimen is 1000mg metformin BID and humalog on SSI. On diabetic diet though does have access to snacks. POC levels ranging 200s-300s typically, but has had hyperglycemia into the 400s sporadically. Fasting glucose this am was 197. Will add lantus 10 units daily. Continue metformin and humalog ssi as well as diabetic diet. Recommend monitoring snacking as appropriate on unit. Will continue monitoring glucose levels until stable. Time Spent With Patient Time: Total time managing care of this patient today ____ minutes.
[2023-05-22 12:42] LABS: Glucose, Whole Blood 244 mg/dL (60-115)
[2023-05-22] MEDS: Insulin Glargine,Hum.rec.anlog 100 UNIT/ML 10 ML VIAL 10 UNIT SUBCUT (12:50)
[2023-05-22 17:17] LABS: Glucose, Whole Blood 257 mg/dL (60-115)
--- NOTE | 2023-05-22 17:18 | HO.PSYCHPN ---
Subjective Subjective Date of Service: 05/22/23 Reason For Visit: hallucinations confusion Subjective Notes: Conditional Voluntary Healthcare Proxy: Yes Interim History: PATIENT HAS REMAINED OFF ONE-TO-ONE difficult placement issues with early onset dementia. Patient has been on olanzapine she has had noted elevated blood sugars consult to hospitalist service given blood sugars in the 400s on 05/21. May benefit from discontinuing olanzapine which in combination with steroids might be significantly elevating her blood sugars Medication Compliance: Yes Side effects from medications: Yes Attending Groups: Intermittent Review of Systems Hyperglycemia Medical Review of Systems: changed Mental Status Exam Mental Status Exam Patient Appearance: Disheveled Patient Orientation: Person, Place (states she is at the time share) and Time (thinks it is Fall, unable to say the year) Level of Consciousness: Alert Patient Behavior: Appropriate Mood Description: Calm Affect Description: Anxious, Labile (Mild lability) and Apprehensive Patient Cognition Impaired: Yes Ability to Follow Directions: Good Speech Pattern: Difficulty Finding Words Memory Description: Working Impaired Hallucinations: None Delusions: Not Present Thought Process: Disoriented and Slowed Thinking Thought Content: positive for Slowed Thinking Depressive Symptoms: Increased Anxiety and Diff. Making Decisions Judgement: Fair Diagnostics Vital Signs (24Hr): Vital Signs - 24 hr 05/21/23 20:20 05/22/23 08:20 Temperature 98.3 F 97.9 F Pulse Rate 60 62 Respiratory Rate 18 18 Blood Pressure 129/64 121/60 Pulse Oximetry 98 96 Oxygen Delivery Method Room Air Room Air BMI result Body Mass Index 30.6 Labs 04/08/23 09:08 05/21/23 08:06 Labs: Laboratory Results - last 48 hr 05/20/23 05/21/23 05/21/23 20:03 08:00 08:06 Sodium 141 Potassium 4.7 Chloride 100 Carbon Dioxide 29 Anion Gap 17 BUN 22 H Creatinine 0.81 Estim Creat Clear Calc 73.0 Estimated GFR > 60 POC Glucose 301 H 206 H Random Glucose 208 H Calcium 9.5 05/21/23 05/21/23 05/21/23 12:40 17:25 18:03 Sodium Potassium Chloride Carbon Dioxide Anion Gap BUN Creatinine Estim Creat Clear Calc Estimated GFR POC Glucose 271 H 416 H* 451 H* Random Glucose Calcium 05/21/23 05/22/23 05/22/23 21:07 08:09 12:38 Sodium Potassium Chloride Carbon Dioxide Anion Gap BUN Creatinine Estim Creat Clear Calc Estimated GFR POC Glucose 164 H 197 H 244 H Random Glucose Calcium 05/22/23 17:13 Sodium Potassium Chloride Carbon Dioxide Anion Gap BUN Creatinine Estim Creat Clear Calc Estimated GFR POC Glucose 257 H Random Glucose Calcium Imaging Radiology Impressions: ITS Impressions Brain MRI 04/03/23 15:30 IMPRESSION: No acute infarct, mass lesion, intracranial hemorrhage, or evidence of hydrocephalus. Mild nonspecific T2/FLAIR hyperintensity in the cerebral white matter and danny presumably on the basis of chronic microangiopathy. Medications Medications Current Medications Acetaminophen (Acetaminophen 325 Mg Tablet) 650 mg PO Q6H PRN PRN Reason: Headache/Pain Mild Scale (1-3) Last Admin: 05/06/23 20:10 Dose: 650 mg Al Hydroxide/Mg Hydroxide (Magnesium Hydrox/Alum Hydrox 30 Ml Oral.Susp) 30 ml PO Q6H PRN PRN Reason: Heartburn/Nausea Atorvastatin Calcium (Atorvastatin Calcium 40 Mg Tablet) 40 mg PO DAILY [facility] Last Admin: 05/22/23 09:23 Dose: 40 mg Dextrose (Dextrose 50 % 25 Gm/50 Ml Syringe) 25 gm IVPUSH Q15M PRN; Protocol PRN Reason: per Hypoglycemia Standing Ord. Donepezil HCl (Donepezil Hcl 5 Mg Tablet) 5 mg PO DAILY [facility] Last Admin: 05/22/23 09:22 Dose: 5 mg Empagliflozin (Empagliflozin 25 Mg Tablet) 25 mg PO DAILY [facility] Last Admin: 05/22/23 09:21 Dose: 25 mg Famotidine (Famotidine 20 Mg Tablet) 20 mg PO DAILY [facility] Last Admin: 05/22/23 09:22 Dose: 20 mg Glucose (Glucose Gel 15 Gm Gel..Gram.) 15 gm PO Q15M PRN; Protocol PRN Reason: per Hypoglycemia Standing Ord. Insulin Glargine (Insulin Glargine,Hum.Rec.Anlog 100 Unit/Ml 10 Ml Vial) 10 unit SUBCUT DAILY [facility] Last Admin: 05/22/23 12:50 Dose: 10 unit Insulin Human Lispro (Insulin Lispro 100 Unit/Ml 3 Ml Vial) 0 unit SUBCUT QIDACHS [facility]; Protocol Last Admin: 05/22/23 12:51 Dose: 4 unit Magnesium Hydroxide (Milk Of Magnesia 30 Ml Oral.Susp) 30 ml PO DAILY PRN PRN Reason: Constipation Memantine (Memantine Hcl 5 Mg Tablet) 5 mg PO BID [facility] Last Admin: 05/22/23 09:21 Dose: 5 mg Metformin HCl (Metformin Hcl 1,000 Mg Tablet) 1,000 mg PO BID [facility] Last Admin: 05/22/23 09:21 Dose: 1,000 mg Olanzapine (Olanzapine 2.5 Mg Tablet) 2.5 mg PO Q4H PRN PRN Reason: anxiety/agitation Last Admin: 04/29/23 17:17 Dose: 2.5 mg Olanzapine (Olanzapine 2.5 Mg Tablet) 2.5 mg PO BEDTIME [facility] Last Admin: 05/21/23 21:26 Dose: 2.5 mg Omeprazole (Omeprazole 20 Mg Capsule.Dr) 20 mg PO DAILY [facility] Last Admin: 05/22/23 09:20 Dose: 20 mg Prednisone (Prednisone 5 Mg Tablet) 15 mg PO DAILY [facility] Last Admin: 05/22/23 09:20 Dose: 15 mg Prednisone (Prednisone 5 Mg Tablet) 15 mg PO BEDTIME [facility] Stop: 05/22/23 20:59 Last Admin: 05/21/23 21:25 Dose: 15 mg Prednisone (Prednisone 10 Mg Tablet) 10 mg PO BEDTIME [facility] Sertraline HCl (Sertraline Hcl 50 Mg Tablet) 50 mg PO DAILY [facility] Last Admin: 05/22/23 09:20 Dose: 50 mg Trazodone HCl (Trazodone Hcl 50 Mg Tablet) 50 mg PO BEDTIME MRX1 PRN PRN Reason: Insomnia Last Admin: 05/16/23 20:42 Dose: 50 mg Allergies Allergies Allergy/AdvReac Type Severity Reaction Status Date / Time No Known Allergies Allergy Verified 03/23/23 18:13 Assessment & Plan Assessment & Plan (1) Dementia: Status: Acute Code(s): F03.90 - Unspecified dementia, unspecified severity, without behavioral disturbance, psychotic disturbance, mood disturbance, and anxiety Assessment and Plan: 57 years old woman with somewhat rapidly progressing dementia or symptoms of dementia with CSF protein of 88 but otherwise no definite clue about her diagnosis. I discussed the case with neurology service at [facility] and they suggested that the workup has been appropriate and thorough and it was not clear if any further investigations were needed. Also, they did not have beds available for transfer According to their experience, this level of CSF protein could be seen and degenerative disorders but could also be seen in some type of spine pathology, which we have not investigated. In any case, high CSF protein without elevation of cells and without any significant brain lesions on MRI, does not suggest malignancy or vasculitis type of pathology. At this time, after discussing the case with the neurologist in [place], my recommendation is to treat her for degenerative dementia appearing in young age. Some CSF tests are pending which may confirm this notion. PET scan can also help. On the other hand, further CSF analysis and investigations for vasculitis like brain biopsy are not warranted. As far as treatment of dementia is concerned, it is symptomatic. I would start with donepezil 5 mg daily and after a week would add memantine 5 mg twice a day. These are the 2 types of medicines available at this time. Finally, her placement could be an issue as she would not be able to live independently Plan 05/05/23 Pt with gross disorganization b sister give hx of more gradual deterioration neuro note reviewed chart reviewed start aricept some csf results pending consider pet if available ?05/07/2023: No changes to current treatment plan.? Treatment team working on complex disposition which may include instituted living in [place] 05/08 continue tx. 05/09 continue tx. 05/10:? neuro believes Dx more likely dementia at this point, consulted with [place] neuro who informed him protein of 88 may sometimes be seen in dementia or spinal disorders and that w/u thus far here had been thorough and adequate.? plan to treat as dementia for now.? neuro rec starting donepezil and 1 week later memantine.? donepezil started 5 days ago, memantine scheduled to be started in 3 days.? 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 per review of [facility], their recommended taper for this pt's duration of therapy and daily dose is to reduce by 5 mg/day every 1-2 weeks.? as her time on steroids has been relatively short, we would proceed with the more aggressive taper.? in any event, dosing to be reduced by 5 mg/day as of today. 05/11: all labs results in, positives are for elevated CSF protein/albumin and pattern of CSF protein c/w alzheimer's dementia. continue induction on cholinesterase inhibitor, pednisone taper, work on dispo planning. 05/12: no change in presentation. discharge planning aggressively underway. start memantine tomorrow. currently planning for discharge monday. 05/13: memantine started today. decrease zyprexa at HS from 5 mg to 2.5 mg in attempt to decrease overall sedation. plan to decrease prednisone by 5 mg/day on monday. 05/14: continue current mgmt. decrease prednisone by 5 mg/day as of tomorrow morning. dispo planning underway. 05/15: continue current mgmt. family meeting tomorrow with pt's daughter and HCP, bakari. 05/16: family mtg held. SW looking into rest homes, family to pursue involving extended family for a place for pt to stay. FSBS elevated, prednisone taper ongoing, SSI being used. 05/17: no change in mgmt. met with jigna SW and MEKA bunch to discuss dispo options. rest home is not an option, STR does not appear to be likely to be an option but is being pursued today. awaiting word from daughter on option to DC to brother's home. will need detention care daily for DM mgmt until no longer requiring SSI, however. per report, her insurance does not cover VNA. 05/18: stable presentation. requesting new MoCA and ACLS as pt's cognition seems to have improved slightly since treatment for AD began. 05/19: stable presentation. daughter working on dispo options. ACLS unchanged from prior. T/C transfer to [facility] today. continue prednisone taper monday. 05/20 Less agitated. No med changes today. 05/21: prednisone taper in process, consider transfer to [facility] 05/22/2023 Hospitalist consult regarding hyperglycemia consider stopping olanzapine and changing to antipsychotic if needed lowered tendency to increase blood sugars. Discharge planning AFTER DISCUSSION WITH MARGARITA PEREZ THE PATIENT WAS PLACED LONG-ACTING INSULIN GLARGINE Reason for continued inpatient stay Substantial Risk for: inability to function, rapid decompensation and med/psych decompensation Time Spent With Patient Time: Total time managing care of this patient today ____ minutes.
[2023-05-22 20:20] VITALS: BP 142/66; PULSE 67; RESP 16; TEMP 36.3; O2SAT 96
[2023-05-22 20:33] LABS: Glucose, Whole Blood 252 mg/dL (60-115)
[2023-05-22] MEDS: predniSONE 10 MG TABLET PO (20:40)
[2023-05-22] MEDS: OLANZapine 2.5 MG TABLET PO (20:41)
[2023-05-23 08:20] VITALS: BP 126/70; PULSE 74; RESP 16; TEMP 36.6; O2SAT 98
[2023-05-23 08:39] LABS: Glucose, Whole Blood 173 mg/dL (60-115)
[2023-05-23] MEDS: predniSONE 5 MG TABLET 15 MG PO (08:43)
[2023-05-23] MEDS: Atorvastatin Calcium 40 MG TABLET PO (08:43)
[2023-05-23] MEDS: Insulin Lispro 100 UNIT/ML 3 ML VIAL SUBCUT ×4 (08:44→20:17)
[2023-05-23] MEDS: Donepezil HCl 5 MG TABLET PO (08:44)
[2023-05-23] MEDS: Omeprazole 20 MG CAPSULE.DR PO (08:44)
[2023-05-23] MEDS: Empagliflozin 25 MG TABLET PO (08:44)
[2023-05-23] MEDS: Memantine HCl 5 MG TABLET PO ×2 (08:44→20:17)
[2023-05-23] MEDS: Sertraline HCL 50 MG TABLET PO (08:44)
[2023-05-23] MEDS: metFORMIN HCl 1,000 MG TABLET 1000 MG PO ×2 (08:44→20:17)
[2023-05-23] MEDS: Famotidine 20 MG TABLET PO (08:45)
[2023-05-23] MEDS: Insulin Glargine,Hum.rec.anlog 100 UNIT/ML 10 ML VIAL 10 UNIT SUBCUT (08:45)
[2023-05-23 12:18] LABS: Glucose, Whole Blood 246 mg/dL (60-115)
--- NOTE | 2023-05-23 15:12 | HO.PSYCHPN ---
Subjective Subjective Date of Service: 05/23/23 Reason For Visit: hallucinations confusion Interim History: calm, cooperative, pleasant, denies any problems or concerns. discussed her current regimen and the rationale for meds. per staff, appropriate and active. FSBS in the 200s for the most part. eating, sleeping, pleasant, brighter. Mental Status Exam Mental Status Exam Narrative: calm, cooperative, diminutive. disheveled. general PMR. fair eye contact, speech nml rate, soft, decr prosody, decr amount. thoughts linear/relevant interchange; paucity of thought. affect constricted, hypo-intense, non-labile. no SI/SIBI/HI/AVH expressed. gross cognitive impairment. Diagnostics Vital Signs (24Hr): Vital Signs - 24 hr 05/22/23 20:20 05/23/23 08:20 Temperature 97.3 F 97.9 F Pulse Rate 67 74 Respiratory Rate 16 16 Blood Pressure 142/66 H 126/70 Pulse Oximetry 96 98 Oxygen Delivery Method Room Air Room Air BMI result Body Mass Index 30.6 Labs 04/08/23 09:08 05/21/23 08:06 Labs: Laboratory Results - last 48 hr 05/21/23 05/21/23 05/21/23 17:25 18:03 21:07 POC Glucose 416 H* 451 H* 164 H 05/22/23 05/22/23 05/22/23 08:09 12:38 17:13 POC Glucose 197 H 244 H 257 H 05/22/23 05/23/23 05/23/23 20:29 08:34 12:12 POC Glucose 252 H 173 H 246 H Imaging Radiology Impressions: ITS Impressions Brain MRI 04/03/23 15:30 IMPRESSION: No acute infarct, mass lesion, intracranial hemorrhage, or evidence of hydrocephalus. Mild nonspecific T2/FLAIR hyperintensity in the cerebral white matter and danny presumably on the basis of chronic microangiopathy. Medications Medications Current Medications Acetaminophen (Acetaminophen 325 Mg Tablet) 650 mg PO Q6H PRN PRN Reason: Headache/Pain Mild Scale (1-3) Last Admin: 05/06/23 20:10 Dose: 650 mg Al Hydroxide/Mg Hydroxide (Magnesium Hydrox/Alum Hydrox 30 Ml Oral.Susp) 30 ml PO Q6H PRN PRN Reason: Heartburn/Nausea Atorvastatin Calcium (Atorvastatin Calcium 40 Mg Tablet) 40 mg PO DAILY [facility] Last Admin: 05/23/23 08:43 Dose: 40 mg Dextrose (Dextrose 50 % 25 Gm/50 Ml Syringe) 25 gm IVPUSH Q15M PRN; Protocol PRN Reason: per Hypoglycemia Standing Ord. Donepezil HCl (Donepezil Hcl 5 Mg Tablet) 5 mg PO DAILY [facility] Last Admin: 05/23/23 08:44 Dose: 5 mg Empagliflozin (Empagliflozin 25 Mg Tablet) 25 mg PO DAILY [facility] Last Admin: 05/23/23 08:44 Dose: 25 mg Famotidine (Famotidine 20 Mg Tablet) 20 mg PO DAILY [facility] Last Admin: 05/23/23 08:45 Dose: 20 mg Glucose (Glucose Gel 15 Gm Gel..Gram.) 15 gm PO Q15M PRN; Protocol PRN Reason: per Hypoglycemia Standing Ord. Insulin Glargine (Insulin Glargine,Hum.Rec.Anlog 100 Unit/Ml 10 Ml Vial) 10 unit SUBCUT DAILY [facility] Last Admin: 05/23/23 08:45 Dose: 10 unit Insulin Human Lispro (Insulin Lispro 100 Unit/Ml 3 Ml Vial) 0 unit SUBCUT QIDACHS [facility]; Protocol Last Admin: 05/23/23 12:46 Dose: 4 unit Magnesium Hydroxide (Milk Of Magnesia 30 Ml Oral.Susp) 30 ml PO DAILY PRN PRN Reason: Constipation Memantine (Memantine Hcl 5 Mg Tablet) 5 mg PO BID [facility] Last Admin: 05/23/23 08:44 Dose: 5 mg Metformin HCl (Metformin Hcl 1,000 Mg Tablet) 1,000 mg PO BID [facility] Last Admin: 05/23/23 08:44 Dose: 1,000 mg Olanzapine (Olanzapine 2.5 Mg Tablet) 2.5 mg PO Q4H PRN PRN Reason: anxiety/agitation Last Admin: 04/29/23 17:17 Dose: 2.5 mg Olanzapine (Olanzapine 2.5 Mg Tablet) 2.5 mg PO BEDTIME [facility] Last Admin: 05/22/23 20:41 Dose: 2.5 mg Omeprazole (Omeprazole 20 Mg Capsule.Dr) 20 mg PO DAILY [facility] Last Admin: 05/23/23 08:44 Dose: 20 mg Prednisone (Prednisone 5 Mg Tablet) 15 mg PO DAILY [facility] Last Admin: 05/23/23 08:43 Dose: 15 mg Prednisone (Prednisone 10 Mg Tablet) 10 mg PO BEDTIME [facility] Last Admin: 05/22/23 20:40 Dose: 10 mg Sertraline HCl (Sertraline Hcl 50 Mg Tablet) 50 mg PO DAILY [facility] Last Admin: 05/23/23 08:44 Dose: 50 mg Trazodone HCl (Trazodone Hcl 50 Mg Tablet) 50 mg PO BEDTIME MRX1 PRN PRN Reason: Insomnia Last Admin: 05/16/23 20:42 Dose: 50 mg Allergies Allergies Allergy/AdvReac Type Severity Reaction Status Date / Time No Known Allergies Allergy Verified 03/23/23 18:13 Assessment & Plan Assessment & Plan (1) Dementia: Status: Acute Code(s): F03.90 - Unspecified dementia, unspecified severity, without behavioral disturbance, psychotic disturbance, mood disturbance, and anxiety Assessment and Plan: 57 years old woman with somewhat rapidly progressing dementia or symptoms of dementia with CSF protein of 88 but otherwise no definite clue about her diagnosis. I discussed the case with neurology service at [facility] and they suggested that the workup has been appropriate and thorough and it was not clear if any further investigations were needed. Also, they did not have beds available for transfer According to their experience, this level of CSF protein could be seen and degenerative disorders but could also be seen in some type of spine pathology, which we have not investigated. In any case, high CSF protein without elevation of cells and without any significant brain lesions on MRI, does not suggest malignancy or vasculitis type of pathology. At this time, after discussing the case with the neurologist in [place], my recommendation is to treat her for degenerative dementia appearing in young age. Some CSF tests are pending which may confirm this notion. PET scan can also help. On the other hand, further CSF analysis and investigations for vasculitis like brain biopsy are not warranted. As far as treatment of dementia is concerned, it is symptomatic. I would start with donepezil 5 mg daily and after a week would add memantine 5 mg twice a day. These are the 2 types of medicines available at this time. Finally, her placement could be an issue as she would not be able to live independently Plan 05/05/23 Pt with gross disorganization b sister give hx of more gradual deterioration neuro note reviewed chart reviewed start aricept some csf results pending consider pet if available ?05/07/2023: No changes to current treatment plan.? Treatment team working on complex disposition which may include instituted living in [place] 05/08 continue tx. 05/09 continue tx. 05/10:? neuro believes Dx more likely dementia at this point, consulted with [place] neuro who informed him protein of 88 may sometimes be seen in dementia or spinal disorders and that w/u thus far here had been thorough and adequate.? plan to treat as dementia for now.? neuro rec starting donepezil and 1 week later memantine.? donepezil started 5 days ago, memantine scheduled to be started in 3 days.? 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 per review of [facility], their recommended taper for this pt's duration of therapy and daily dose is to reduce by 5 mg/day every 1-2 weeks.? as her time on steroids has been relatively short, we would proceed with the more aggressive taper.? in any event, dosing to be reduced by 5 mg/day as of today. 05/11: all labs results in, positives are for elevated CSF protein/albumin and pattern of CSF protein c/w alzheimer's dementia. continue induction on cholinesterase inhibitor, pednisone taper, work on dispo planning. 05/12: no change in presentation. discharge planning aggressively underway. start memantine tomorrow. currently planning for discharge monday. 05/13: memantine started today. decrease zyprexa at HS from 5 mg to 2.5 mg in attempt to decrease overall sedation. plan to decrease prednisone by 5 mg/day on monday. 05/14: continue current mgmt. decrease prednisone by 5 mg/day as of tomorrow morning. dispo planning underway. 05/15: continue current mgmt. family meeting tomorrow with pt's daughter and HCP, bakari. 05/16: family mtg held. SW looking into rest homes, family to pursue involving extended family for a place for pt to stay. FSBS elevated, prednisone taper ongoing, SSI being used. 05/17: no change in mgmt. met with jigna ACKERMAN and MEKA bunch to discuss dispo options. rest home is not an option, STR does not appear to be likely to be an option but is being pursued today. awaiting word from daughter on option to DC to brother's home. will need [facility] care daily for DM mgmt until no longer requiring SSI, however. per report, her insurance does not cover VNA. 05/18: stable presentation. requesting new MoCA and ACLS as pt's cognition seems to have improved slightly since treatment for AD began. 05/19: stable presentation. daughter working on dispo options. ACLS unchanged from prior. T/C transfer to [facility] today. continue prednisone taper monday. 05/20 Less agitated. No med changes today. 05/21: prednisone taper in process, consider transfer to [facility] 05/22/2023 Hospitalist consult regarding hyperglycemia consider stopping olanzapine and changing to antipsychotic if needed lowered tendency to increase blood sugars. Discharge planning AFTER DISCUSSION WITH MARGARITA PEREZ THE PATIENT WAS PLACED LONG-ACTING INSULIN GLARGINE 05/23: FSBS trending down. continue current mgmt. T/C change to typical anti-psychotic. case d/w Dr. Trotter. Reason for continued inpatient stay Substantial Risk for: inability to function Time Spent With Patient Time: Total time managing care of this patient today __25__ minutes.
[2023-05-23 17:21] LABS: Glucose, Whole Blood 309 mg/dL (60-115)
[2023-05-23 20:03] VITALS: BP 126/63; PULSE 61; RESP 16; TEMP 36.6; O2SAT 98
[2023-05-23 20:13] LABS: Glucose, Whole Blood 287 mg/dL (60-115)
[2023-05-23] MEDS: predniSONE 10 MG TABLET PO (20:17)
[2023-05-23] MEDS: OLANZapine 2.5 MG TABLET PO (20:17)
[2023-05-24 08:11] VITALS: BP 119/72; PULSE 55; RESP 18; TEMP 36.6; O2SAT 96
[2023-05-24] MEDS: metFORMIN HCl 1,000 MG TABLET 1000 MG PO ×2 (08:12→21:13)
[2023-05-24] MEDS: Empagliflozin 25 MG TABLET PO (08:12)
[2023-05-24] MEDS: Sertraline HCL 50 MG TABLET PO (08:12)
[2023-05-24] MEDS: predniSONE 5 MG TABLET 15 MG PO (08:12)
[2023-05-24] MEDS: Atorvastatin Calcium 40 MG TABLET PO (08:12)
[2023-05-24] MEDS: Memantine HCl 5 MG TABLET PO ×2 (08:12→21:13)
[2023-05-24] MEDS: Donepezil HCl 5 MG TABLET PO (08:12)
[2023-05-24] MEDS: Omeprazole 20 MG CAPSULE.DR PO (08:12)
[2023-05-24] MEDS: Famotidine 20 MG TABLET PO (08:13)
[2023-05-24] MEDS: Insulin Glargine,Hum.rec.anlog 100 UNIT/ML 10 ML VIAL 10 UNIT SUBCUT (08:13)
[2023-05-24 08:28] LABS: Glucose, Whole Blood 177 mg/dL (60-115)
[2023-05-24] MEDS: Insulin Lispro 100 UNIT/ML 3 ML VIAL SUBCUT ×4 (08:54→21:15)
[2023-05-24 12:04] LABS: Glucose, Whole Blood 231 mg/dL (60-115)
--- NOTE | 2023-05-24 14:02 | P.PNPSI_ITS ---
Subjective Subjective Date of Service: 05/24/23 Reason For Visit: hallucinations confusion Interim History: calm, cooperative. denies any problems. no change in presentation. per staff, wants discharge. sleeping and eating well. + groups. isolative, pacing. Mental Status Exam Mental Status Exam Narrative: calm, cooperative, diminutive. disheveled. general PMR. fair eye contact, speech nml rate, soft, decr prosody, decr amount. thoughts linear/relevant interchange; paucity of thought. affect constricted, hypo-intense, non-labile. no SI/SIBI/HI/AVH expressed. gross cognitive impairment. Diagnostics Vital Signs (24Hr): Vital Signs - 24 hr 05/23/23 20:03 05/24/23 08:11 Temperature 97.8 F 97.8 F Pulse Rate 61 55 Respiratory Rate 16 18 Blood Pressure 126/63 119/72 Pulse Oximetry 98 96 Oxygen Delivery Method Room Air Room Air BMI result Body Mass Index 30.6 Labs 04/08/23 09:08 05/21/23 08:06 Labs: Laboratory Results - last 48 hr 05/22/23 05/22/23 05/23/23 17:13 20:29 08:34 POC Glucose 257 H 252 H 173 H 05/23/23 05/23/23 05/23/23 12:12 17:17 20:07 POC Glucose 246 H 309 H 287 H 05/24/23 05/24/23 08:08 12:00 POC Glucose 177 H 231 H Imaging Radiology Impressions: ITS Impressions Brain MRI 04/03/23 15:30 IMPRESSION: No acute infarct, mass lesion, intracranial hemorrhage, or evidence of hydrocephalus. Mild nonspecific T2/FLAIR hyperintensity in the cerebral white matter and danny presumably on the basis of chronic microangiopathy. Medications Medications Current Medications Acetaminophen (Acetaminophen 325 Mg Tablet) 650 mg PO Q6H PRN PRN Reason: Headache/Pain Mild Scale (1-3) Last Admin: 05/06/23 20:10 Dose: 650 mg Al Hydroxide/Mg Hydroxide (Magnesium Hydrox/Alum Hydrox 30 Ml Oral.Susp) 30 ml PO Q6H PRN PRN Reason: Heartburn/Nausea Atorvastatin Calcium (Atorvastatin Calcium 40 Mg Tablet) 40 mg PO DAILY BEN Last Admin: 05/24/23 08:12 Dose: 40 mg Dextrose (Dextrose 50 % 25 Gm/50 Ml Syringe) 25 gm IVPUSH Q15M PRN; Protocol PRN Reason: per Hypoglycemia Standing Ord. Donepezil HCl (Donepezil Hcl 5 Mg Tablet) 5 mg PO DAILY [facility] Last Admin: 05/24/23 08:12 Dose: 5 mg Empagliflozin (Empagliflozin 25 Mg Tablet) 25 mg PO DAILY [facility] Last Admin: 05/24/23 08:12 Dose: 25 mg Famotidine (Famotidine 20 Mg Tablet) 20 mg PO DAILY [facility] Last Admin: 05/24/23 08:13 Dose: 20 mg Glucose (Glucose Gel 15 Gm Gel..Gram.) 15 gm PO Q15M PRN; Protocol PRN Reason: per Hypoglycemia Standing Ord. Haloperidol (Haloperidol 1 Mg Tablet) 2 mg PO BEDTIME [facility] Insulin Glargine (Insulin Glargine,Hum.Rec.Anlog 100 Unit/Ml 10 Ml Vial) 10 unit SUBCUT DAILY [facility] Last Admin: 05/24/23 08:13 Dose: 10 unit Insulin Human Lispro (Insulin Lispro 100 Unit/Ml 3 Ml Vial) 0 unit SUBCUT QIDACHS [facility]; Protocol Last Admin: 05/24/23 12:30 Dose: 4 unit Magnesium Hydroxide (Milk Of Magnesia 30 Ml Oral.Susp) 30 ml PO DAILY PRN PRN Reason: Constipation Memantine (Memantine Hcl 5 Mg Tablet) 5 mg PO BID [facility] Last Admin: 05/24/23 08:12 Dose: 5 mg Metformin HCl (Metformin Hcl 1,000 Mg Tablet) 1,000 mg PO BID [facility] Last Admin: 05/24/23 08:12 Dose: 1,000 mg Olanzapine (Olanzapine 2.5 Mg Tablet) 2.5 mg PO Q4H PRN PRN Reason: anxiety/agitation Last Admin: 04/29/23 17:17 Dose: 2.5 mg Omeprazole (Omeprazole 20 Mg Capsule.Dr) 20 mg PO DAILY [facility] Last Admin: 05/24/23 08:12 Dose: 20 mg Prednisone (Prednisone 5 Mg Tablet) 15 mg PO DAILY [facility] Last Admin: 05/24/23 08:12 Dose: 15 mg Prednisone (Prednisone 10 Mg Tablet) 10 mg PO BEDTIME [facility] Last Admin: 05/23/23 20:17 Dose: 10 mg Sertraline HCl (Sertraline Hcl 50 Mg Tablet) 50 mg PO DAILY [facility] Last Admin: 05/24/23 08:12 Dose: 50 mg Trazodone HCl (Trazodone Hcl 50 Mg Tablet) 50 mg PO BEDTIME MRX1 PRN PRN Reason: Insomnia Last Admin: 05/16/23 20:42 Dose: 50 mg Allergies Allergies Allergy/AdvReac Type Severity Reaction Status Date / Time No Known Allergies Allergy Verified 03/23/23 18:13 Assessment & Plan Assessment & Plan (1) Dementia: Status: Acute Code(s): F03.90 - Unspecified dementia, unspecified severity, without behavioral disturbance, psychotic disturbance, mood disturbance, and anxiety Assessment and Plan: 57 years old woman with somewhat rapidly progressing dementia or symptoms of dementia with CSF protein of 88 but otherwise no definite clue about her diagnosis. I discussed the case with neurology service at [facility] and they suggested that the workup has been appropriate and thorough and it was not clear if any further investigations were needed. Also, they did not have beds available for transfer According to their experience, this level of CSF protein could be seen and degenerative disorders but could also be seen in some type of spine pathology, which we have not investigated. In any case, high CSF protein without elevation of cells and without any significant brain lesions on MRI, does not suggest malignancy or vasculitis type of pathology. At this time, after discussing the case with the neurologist in [place], my recommendation is to treat her for degenerative dementia appearing in young age. Some CSF tests are pending which may confirm this notion. PET scan can also help. On the other hand, further CSF analysis and investigations for vasculitis like brain biopsy are not warranted. As far as treatment of dementia is concerned, it is symptomatic. I would start with donepezil 5 mg daily and after a week would add memantine 5 mg twice a day. These are the 2 types of medicines available at this time. Finally, her placement could be an issue as she would not be able to live independently Plan 05/05/23 Pt with gross disorganization b sister give hx of more gradual deterioration neuro note reviewed chart reviewed start aricept some csf results pending consider pet if available ?05/07/2023: No changes to current treatment plan.? Treatment team working on complex disposition which may include instituted living in [place] 05/08 continue tx. 05/09 continue tx. 05/10:? neuro believes Dx more likely dementia at this point, consulted with [place] [facility] who informed him protein of 88 may sometimes be seen in dementia or spinal disorders and that w/u thus far here had been thorough and adequate.? plan to treat as dementia for now.? neuro rec starting donepezil and 1 week later memantine.? donepezil started 5 days ago, memantine scheduled to be started in 3 days.? 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 per review of [employer], their recommended taper for this pt's duration of therapy and daily dose is to reduce by 5 mg/day every 1-2 weeks.? as her time on steroids has been relatively short, we would proceed with the more aggressive taper.? in any event, dosing to be reduced by 5 mg/day as of today. 05/11: all labs results in, positives are for elevated CSF protein/albumin and pattern of CSF protein c/w alzheimer's dementia. continue induction on cholinesterase inhibitor, pednisone taper, work on dispo planning. 05/12: no change in presentation. discharge planning aggressively underway. start memantine tomorrow. currently planning for discharge monday. 05/13: memantine started today. decrease zyprexa at HS from 5 mg to 2.5 mg in attempt to decrease overall sedation. plan to decrease prednisone by 5 mg/day on monday. 05/14: continue current mgmt. decrease prednisone by 5 mg/day as of tomorrow morning. dispo planning underway. 05/15: continue current mgmt. family meeting tomorrow with pt's daughter and HCP, bakari. 05/16: family mtg held. SW looking into rest homes, family to pursue involving extended family for a place for pt to stay. FSBS elevated, prednisone taper ongoing, SSI being used. 05/17: no change in mgmt. met with jigna ACKERMAN and MEKA bunch to discuss dispo options. rest home is not an option, STR does not appear to be likely to be an option but is being pursued today. awaiting word from daughter on option to DC to brother's home. will need senior care care daily for DM mgmt until no longer requiring SSI, however. per report, her insurance does not cover VNA. 05/18: stable presentation. requesting new MoCA and ACLS as pt's cognition seems to have improved slightly since treatment for AD began. 05/19: stable presentation. daughter working on dispo options. ACLS unchanged from prior. T/C transfer to [facility] today. continue prednisone taper monday. 05/20 Less agitated. No med changes today. 05/21: prednisone taper in process, consider transfer to [facility] 05/22/2023 Hospitalist consult regarding hyperglycemia consider stopping olanzapine and changing to antipsychotic if needed lowered tendency to increase blood sugars. Discharge planning AFTER DISCUSSION WITH MARGARITA PEREZ THE PATIENT WAS PLACED LONG-ACTING INSULIN GL ARGINE 05/23: FSBS trending down. continue current mgmt. T/C change to typical anti- psychotic. case d/w Dr. Trotter. 05/24: stable. DCed zyprexa and started haldol 2 mg QHS. completed review with insurance company . continue to seek placement at shelter care facility. Reason for continued inpatient stay Substantial Risk for: inability to function Time Spent With Patient Time: Total time managing care of this patient today __35__ minutes.
[2023-05-24 17:42] LABS: Glucose, Whole Blood 159 mg/dL (60-115)
[2023-05-24 20:45] VITALS: BP 133/69; PULSE 55; RESP 16; TEMP 36.4; O2SAT 98
[2023-05-24 20:57] LABS: Glucose, Whole Blood 225 mg/dL (60-115)
[2023-05-24] MEDS: predniSONE 10 MG TABLET PO (21:13)
[2023-05-24] MEDS: HaloperidoL 1 MG TABLET 2 MG PO (21:13)
[2023-05-25 08:23] LABS: Glucose, Whole Blood 150 mg/dL (60-115)
[2023-05-25] MEDS: Donepezil HCl 5 MG TABLET PO (09:04)
[2023-05-25] MEDS: Atorvastatin Calcium 40 MG TABLET PO (09:04)
[2023-05-25] MEDS: predniSONE 5 MG TABLET 15 MG PO (09:04)
[2023-05-25] MEDS: Empagliflozin 25 MG TABLET PO (09:04)
[2023-05-25] MEDS: metFORMIN HCl 1,000 MG TABLET 1000 MG PO ×2 (09:04→20:43)
[2023-05-25] MEDS: Omeprazole 20 MG CAPSULE.DR PO (09:05)
[2023-05-25] MEDS: Famotidine 20 MG TABLET PO (09:05)
[2023-05-25] MEDS: Memantine HCl 5 MG TABLET PO ×2 (09:05→20:43)
[2023-05-25] MEDS: Sertraline HCL 50 MG TABLET PO (09:05)
[2023-05-25] MEDS: Insulin Glargine,Hum.rec.anlog 100 UNIT/ML 10 ML VIAL 10 UNIT SUBCUT (09:11)
[2023-05-25 11:52] VITALS: BP 116/59; PULSE 61; RESP 18; TEMP 36.4; O2SAT 96
[2023-05-25] MEDS: Insulin Lispro 100 UNIT/ML 3 ML VIAL SUBCUT ×3 (12:40→20:56)
[2023-05-25 12:49] LABS: Glucose, Whole Blood 152 mg/dL (60-115)
--- NOTE | 2023-05-25 16:14 | HO.PSYCHPN ---
Subjective Subjective Date of Service: 05/25/23 Reason For Visit: hallucinations confusion Interim History: no change in presentation. per staff, no issues. did appear less alert yesterday and more confused. Mental Status Exam Mental Status Exam Narrative: calm, cooperative, diminutive. disheveled. general PMR. fair eye contact, speech nml rate, soft, decr prosody, decr amount. thoughts linear/relevant interchange; paucity of thought. affect constricted, hypo-intense, non-labile. no SI/SIBI/HI/AVH expressed. gross cognitive impairment. Diagnostics Vital Signs (24Hr): Vital Signs - 24 hr 05/24/23 20:45 05/25/23 11:52 Temperature 97.5 F 97.6 F Pulse Rate 55 61 Respiratory Rate 16 18 Blood Pressure 133/69 116/59 L Pulse Oximetry 98 96 Oxygen Delivery Method Room Air Room Air BMI result Body Mass Index 30.0 Labs 04/08/23 09:08 05/21/23 08:06 Labs: Laboratory Results - last 48 hr 05/23/23 05/23/23 05/24/23 17:17 20:07 08:08 POC Glucose 309 H 287 H 177 H 05/24/23 05/24/23 05/24/23 12:00 17:26 20:52 POC Glucose 231 H 159 H 225 H 05/25/23 05/25/23 08:01 12:35 POC Glucose 150 H 152 H Imaging Radiology Impressions: ITS Impressions Brain MRI 04/03/23 15:30 IMPRESSION: No acute infarct, mass lesion, intracranial hemorrhage, or evidence of hydrocephalus. Mild nonspecific T2/FLAIR hyperintensity in the cerebral white matter and danny presumably on the basis of chronic microangiopathy. Medications Medications Current Medications Acetaminophen (Acetaminophen 325 Mg Tablet) 650 mg PO Q6H PRN PRN Reason: Headache/Pain Mild Scale (1-3) Last Admin: 05/06/23 20:10 Dose: 650 mg Al Hydroxide/Mg Hydroxide (Magnesium Hydrox/Alum Hydrox 30 Ml Oral.Susp) 30 ml PO Q6H PRN PRN Reason: Heartburn/Nausea Atorvastatin Calcium (Atorvastatin Calcium 40 Mg Tablet) 40 mg PO DAILY [facility] Last Admin: 05/25/23 09:04 Dose: 40 mg Dextrose (Dextrose 50 % 25 Gm/50 Ml Syringe) 25 gm IVPUSH Q15M PRN; Protocol PRN Reason: per Hypoglycemia Standing Ord. Donepezil HCl (Donepezil Hcl 5 Mg Tablet) 5 mg PO DAILY [facility] Last Admin: 05/25/23 09:04 Dose: 5 mg Empagliflozin (Empagliflozin 25 Mg Tablet) 25 mg PO DAILY [facility] Last Admin: 05/25/23 09:04 Dose: 25 mg Famotidine (Famotidine 20 Mg Tablet) 20 mg PO DAILY [facility] Last Admin: 05/25/23 09:05 Dose: 20 mg Glucose (Glucose Gel 15 Gm Gel..Gram.) 15 gm PO Q15M PRN; Protocol PRN Reason: per Hypoglycemia Standing Ord. Haloperidol (Haloperidol 1 Mg Tablet) 4 mg PO BEDTIME [facility] Insulin Glargine (Insulin Glargine,Hum.Rec.Anlog 100 Unit/Ml 10 Ml Vial) 10 unit SUBCUT DAILY [facility] Last Admin: 05/25/23 09:11 Dose: 10 unit Insulin Human Lispro (Insulin Lispro 100 Unit/Ml 3 Ml Vial) 0 unit SUBCUT QIDACHS [facility]; Protocol Last Admin: 05/25/23 12:40 Dose: 2 unit Magnesium Hydroxide (Milk Of Magnesia 30 Ml Oral.Susp) 30 ml PO DAILY PRN PRN Reason: Constipation Memantine (Memantine Hcl 5 Mg Tablet) 5 mg PO BID [facility] Last Admin: 05/25/23 09:05 Dose: 5 mg Metformin HCl (Metformin Hcl 1,000 Mg Tablet) 1,000 mg PO BID [facility] Last Admin: 05/25/23 09:04 Dose: 1,000 mg Olanzapine (Olanzapine 2.5 Mg Tablet) 2.5 mg PO Q4H PRN PRN Reason: anxiety/agitation Last Admin: 04/29/23 17:17 Dose: 2.5 mg Omeprazole (Omeprazole 20 Mg Capsule.Dr) 20 mg PO DAILY [facility] Last Admin: 05/25/23 09:05 Dose: 20 mg Prednisone (Prednisone 5 Mg Tablet) 15 mg PO DAILY [facility] Last Admin: 05/25/23 09:04 Dose: 15 mg Prednisone (Prednisone 10 Mg Tablet) 10 mg PO BEDTIME [facility] Last Admin: 05/24/23 21:13 Dose: 10 mg Sertraline HCl (Sertraline Hcl 50 Mg Tablet) 50 mg PO DAILY [facility] Last Admin: 05/25/23 09:05 Dose: 50 mg Trazodone HCl (Trazodone Hcl 50 Mg Tablet) 50 mg PO BEDTIME MRX1 PRN PRN Reason: Insomnia Last Admin: 05/16/23 20:42 Dose: 50 mg Allergies Allergies Allergy/AdvReac Type Severity Reaction Status Date / Time No Known Allergies Allergy Verified 03/23/23 18:13 Assessment & Plan Assessment & Plan (1) Dementia: Status: Acute Code(s): F03.90 - Unspecified dementia, unspecified severity, without behavioral disturbance, psychotic disturbance, mood disturbance, and anxiety Assessment and Plan: 57 years old woman with somewhat rapidly progressing dementia or symptoms of dementia with CSF protein of 88 but otherwise no definite clue about her diagnosis. I discussed the case with neurology service at [facility] and they suggested that the workup has been appropriate and thorough and it was not clear if any further investigations were needed. Also, they did not have beds available for transfer According to their experience, this level of CSF protein could be seen and degenerative disorders but could also be seen in some type of spine pathology, which we have not investigated. In any case, high CSF protein without elevation of cells and without any significant brain lesions on MRI, does not suggest malignancy or vasculitis type of pathology. At this time, after discussing the case with the neurologist in [place], my recommendation is to treat her for degenerative dementia appearing in young age. Some CSF tests are pending which may confirm this notion. PET scan can also help. On the other hand, further CSF analysis and investigations for vasculitis like brain biopsy are not warranted. As far as treatment of dementia is concerned, it is symptomatic. I would start with donepezil 5 mg daily and after a week would add memantine 5 mg twice a day. These are the 2 types of medicines available at this time. Finally, her placement could be an issue as she would not be able to live independently Plan 05/05/23 Pt with gross disorganization b sister give hx of more gradual deterioration neuro note reviewed chart reviewed start aricept some csf results pending consider pet if available ?05/07/2023: No changes to current treatment plan.? Treatment team working on complex disposition which may include instituted living in [place] 05/08 continue tx. 05/09 continue tx. 05/10:? neuro believes Dx more likely dementia at this point, consulted with [place] neuro who informed him protein of 88 may sometimes be seen in dementia or spinal disorders and that w/u thus far here had been thorough and adequate.? plan to treat as dementia for now.? neuro rec starting donepezil and 1 week later memantine.? donepezil started 5 days ago, memantine scheduled to be started in 3 days.? 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 per review of [employer], their recommended taper for this pt's duration of therapy and daily dose is to reduce by 5 mg/day every 1-2 weeks.? as her time on steroids has been relatively short, we would proceed with the more aggressive taper.? in any event, dosing to be reduced by 5 mg/day as of today. 05/11: all labs results in, positives are for elevated CSF protein/albumin and pattern of CSF protein c/w alzheimer's dementia. continue induction on cholinesterase inhibitor, pednisone taper, work on dispo planning. 05/12: no change in presentation. discharge planning aggressively underway. start memantine tomorrow. currently planning for discharge monday. 05/13: memantine started today. decrease zyprexa at HS from 5 mg to 2.5 mg in attempt to decrease overall sedation. plan to decrease prednisone by 5 mg/day on monday. 05/14: continue current mgmt. decrease prednisone by 5 mg/day as of tomorrow morning. dispo planning underway. 05/15: continue current mgmt. family meeting tomorrow with pt's daughter and HCP, bakari. 05/16: family mtg held. MEKA looking into rest homes, family to pursue involving extended family for a place for pt to stay. FSBS elevated, prednisone taper ongoing, SSI being used. 05/17: no change in mgmt. met with jigna ACKERMAN and MEKA bunch to discuss dispo options. rest home is not an option, STR does not appear to be likely to be an option but is being pursued today. awaiting word from daughter on option to DC to brother's home. will need residential care daily for DM mgmt until no longer requiring SSI, however. per report, her insurance does not cover VNA. 05/18: stable presentation. requesting new MoCA and ACLS as pt's cognition seems to have improved slightly since treatment for AD began. 05/19: stable presentation. daughter working on dispo options. ACLS unchanged from prior. T/C transfer to [facility] today. continue prednisone taper monday. 05/20 Less agitated. No med changes today. 05/21: prednisone taper in process, consider transfer to [facility] 05/22/2023 Hospitalist consult regarding hyperglycemia consider stopping olanzapine and changing to antipsychotic if needed lowered tendency to increase blood sugars. Discharge planning AFTER DISCUSSION WITH MARGARITA PEREZ THE PATIENT WAS PLACED LONG-ACTING INSULIN GLARGINE 05/23: FSBS trending down. continue current mgmt. T/C change to typical anti-psychotic. case d/w Dr. Trotter. 05/24: stable. DCed zyprexa and started haldol 2 mg QHS. completed review with insurance company . continue to seek placement at [facility]. 05/25: increase HS haldol to 4 mg, otherwise continue current mgmt. stable presentation. Reason for continued inpatient stay Substantial Risk for: inability to function Time Spent With Patient Time: Total time managing care of this patient today ____ minutes.
[2023-05-25 17:26] LABS: Glucose, Whole Blood 240 mg/dL (60-115)
[2023-05-25 20:20] VITALS: BP 121/75; PULSE 61; TEMP 36.6; O2SAT 99
[2023-05-25] MEDS: HaloperidoL 1 MG TABLET 4 MG PO (20:42)
[2023-05-25] MEDS: predniSONE 10 MG TABLET PO (20:43)
[2023-05-25 20:49] LABS: Glucose, Whole Blood 287 mg/dL (60-115)
[2023-05-26 08:00] VITALS: BP 112/60; PULSE 67; RESP 18; TEMP 36.7; O2SAT 97
[2023-05-26 08:47] LABS: Glucose, Whole Blood 201 mg/dL (60-115)
[2023-05-26] MEDS: Omeprazole 20 MG CAPSULE.DR PO (08:51)
[2023-05-26] MEDS: Famotidine 20 MG TABLET PO (08:52)
[2023-05-26] MEDS: predniSONE 5 MG TABLET 15 MG PO (08:52)
[2023-05-26] MEDS: Donepezil HCl 5 MG TABLET PO (08:52)
[2023-05-26] MEDS: metFORMIN HCl 1,000 MG TABLET 1000 MG PO ×2 (08:52→20:20)
[2023-05-26] MEDS: Atorvastatin Calcium 40 MG TABLET PO (08:52)
[2023-05-26] MEDS: Sertraline HCL 50 MG TABLET PO (08:53)
[2023-05-26] MEDS: Memantine HCl 5 MG TABLET PO ×2 (08:53→20:20)
[2023-05-26] MEDS: Empagliflozin 25 MG TABLET PO (08:53)
[2023-05-26] MEDS: Insulin Glargine,Hum.rec.anlog 100 UNIT/ML 10 ML VIAL 10 UNIT SUBCUT (08:54)
[2023-05-26] MEDS: Insulin Lispro 100 UNIT/ML 3 ML VIAL SUBCUT ×4 (08:56→20:19)
[2023-05-26 13:47] LABS: Glucose, Whole Blood 289 mg/dL (60-115)
--- NOTE | 2023-05-26 14:25 | HO.PSYCHPN ---
Subjective Subjective Date of Service: 05/26/23 Reason For Visit: hallucinations confusion Interim History: no change in presentation. no questions or concerns. per staff, no changes. attending groups. meds and meals. Mental Status Exam Mental Status Exam Narrative: calm, cooperative, diminutive. disheveled. general PMR. fair eye contact, speech nml rate, soft, decr prosody, decr amount. thoughts linear/relevant interchange; paucity of thought. affect constricted, hypo-intense, non-labile. no SI/SIBI/HI/AVH expressed. gross cognitive impairment. Diagnostics Vital Signs (24Hr): Vital Signs - 24 hr 05/25/23 20:20 05/26/23 08:00 Temperature 98 F 98.0 F Pulse Rate 61 67 Respiratory Rate 18 Blood Pressure 121/75 112/60 Pulse Oximetry 99 97 Oxygen Delivery Method Room Air Room Air BMI result Body Mass Index 30.0 Labs 04/08/23 09:08 05/21/23 08:06 Labs: Laboratory Results - last 48 hr 05/24/23 05/24/23 05/25/23 17:26 20:52 08:01 POC Glucose 159 H 225 H 150 H 05/25/23 05/25/23 05/25/23 12:35 17:22 20:41 POC Glucose 152 H 240 H 287 H 05/26/23 05/26/23 08:44 12:36 POC Glucose 201 H 289 H Imaging Radiology Impressions: ITS Impressions Brain MRI 04/03/23 15:30 IMPRESSION: No acute infarct, mass lesion, intracranial hemorrhage, or evidence of hydrocephalus. Mild nonspecific T2/FLAIR hyperintensity in the cerebral white matter and danny presumably on the basis of chronic microangiopathy. Medications Medications Current Medications Acetaminophen (Acetaminophen 325 Mg Tablet) 650 mg PO Q6H PRN PRN Reason: Headache/Pain Mild Scale (1-3) Last Admin: 05/06/23 20:10 Dose: 650 mg Al Hydroxide/Mg Hydroxide (Magnesium Hydrox/Alum Hydrox 30 Ml Oral.Susp) 30 ml PO Q6H PRN PRN Reason: Heartburn/Nausea Atorvastatin Calcium (Atorvastatin Calcium 40 Mg Tablet) 40 mg PO DAILY [facility] Last Admin: 05/26/23 08:52 Dose: 40 mg Dextrose (Dextrose 50 % 25 Gm/50 Ml Syringe) 25 gm IVPUSH Q15M PRN; Protocol PRN Reason: per Hypoglycemia Standing Ord. Donepezil HCl (Donepezil Hcl 5 Mg Tablet) 5 mg PO DAILY [facility] Last Admin: 05/26/23 08:52 Dose: 5 mg Empagliflozin (Empagliflozin 25 Mg Tablet) 25 mg PO DAILY [facility] Last Admin: 05/26/23 08:53 Dose: 25 mg Famotidine (Famotidine 20 Mg Tablet) 20 mg PO DAILY [facility] Last Admin: 05/26/23 08:52 Dose: 20 mg Glucose (Glucose Gel 15 Gm Gel..Gram.) 15 gm PO Q15M PRN; Protocol PRN Reason: per Hypoglycemia Standing Ord. Haloperidol (Haloperidol 1 Mg Tablet) 4 mg PO BEDTIME [facility] Last Admin: 05/25/23 20:42 Dose: 4 mg Insulin Glargine (Insulin Glargine,Hum.Rec.Anlog 100 Unit/Ml 10 Ml Vial) 10 unit SUBCUT DAILY [facility] Last Admin: 05/26/23 08:54 Dose: 10 unit Insulin Human Lispro (Insulin Lispro 100 Unit/Ml 3 Ml Vial) 0 unit SUBCUT QIDACHS [facility]; Protocol Last Admin: 05/26/23 13:00 Dose: 6 unit Magnesium Hydroxide (Milk Of Magnesia 30 Ml Oral.Susp) 30 ml PO DAILY PRN PRN Reason: Constipation Memantine (Memantine Hcl 5 Mg Tablet) 5 mg PO BID [facility] Last Admin: 05/26/23 08:53 Dose: 5 mg Metformin HCl (Metformin Hcl 1,000 Mg Tablet) 1,000 mg PO BID [facility] Last Admin: 05/26/23 08:52 Dose: 1,000 mg Olanzapine (Olanzapine 2.5 Mg Tablet) 2.5 mg PO Q4H PRN PRN Reason: anxiety/agitation Last Admin: 04/29/23 17:17 Dose: 2.5 mg Omeprazole (Omeprazole 20 Mg Capsule.Dr) 20 mg PO DAILY [facility] Last Admin: 05/26/23 08:51 Dose: 20 mg Prednisone (Prednisone 5 Mg Tablet) 15 mg PO DAILY [facility] Stop: 05/28/23 09:01 Last Admin: 05/26/23 08:52 Dose: 15 mg Prednisone (Prednisone 10 Mg Tablet) 10 mg PO BEDTIME [facility] Last Admin: 05/25/23 20:43 Dose: 10 mg Prednisone (Prednisone 10 Mg Tablet) 10 mg PO DAILY [facility] Sertraline HCl (Sertraline Hcl 50 Mg Tablet) 50 mg PO DAILY [facility] Last Admin: 05/26/23 08:53 Dose: 50 mg Trazodone HCl (Trazodone Hcl 50 Mg Tablet) 50 mg PO BEDTIME MRX1 PRN PRN Reason: Insomnia Last Admin: 05/16/23 20:42 Dose: 50 mg Allergies Allergies Allergy/AdvReac Type Severity Reaction Status Date / Time No Known Allergies Allergy Verified 03/23/23 18:13 Assessment & Plan Assessment & Plan (1) Dementia: Status: Acute Code(s): F03.90 - Unspecified dementia, unspecified severity, without behavioral disturbance, psychotic disturbance, mood disturbance, and anxiety Assessment and Plan: 57 years old woman with somewhat rapidly progressing dementia or symptoms of dementia with CSF protein of 88 but otherwise no definite clue about her diagnosis. I discussed the case with neurology service at [facility] and they suggested that the workup has been appropriate and thorough and it was not clear if any further investigations were needed. Also, they did not have beds available for transfer According to their experience, this level of CSF protein could be seen and degenerative disorders but could also be seen in some type of spine pathology, which we have not investigated. In any case, high CSF protein without elevation of cells and without any significant brain lesions on MRI, does not suggest malignancy or vasculitis type of pathology. At this time, after discussing the case with the neurologist in [place], my recommendation is to treat her for degenerative dementia appearing in young age. Some CSF tests are pending which may confirm this notion. PET scan can also help. On the other hand, further CSF analysis and investigations for vasculitis like brain biopsy are not warranted. As far as treatment of dementia is concerned, it is symptomatic. I would start with donepezil 5 mg daily and after a week would add memantine 5 mg twice a day. These are the 2 types of medicines available at this time. Finally, her placement could be an issue as she would not be able to live independently Plan 05/05/23 Pt with gross disorganization b sister give hx of more gradual deterioration neuro note reviewed chart reviewed start aricept some csf results pending consider pet if available ?05/07/2023: No changes to current treatment plan.? Treatment team working on complex disposition which may include instituted living in [place] 05/08 continue tx. 05/09 continue tx. 05/10:? neuro believes Dx more likely dementia at this point, consulted with [facility] who informed him protein of 88 may sometimes be seen in dementia or spinal disorders and that w/u thus far here had been thorough and adequate.? plan to treat as dementia for now.? neuro rec starting donepezil and 1 week later memantine.? donepezil started 5 days ago, memantine scheduled to be started in 3 days.? 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 per review of [employer], their recommended taper for this pt's duration of therapy and daily dose is to reduce by 5 mg/day every 1-2 weeks.? as her time on steroids has been relatively short, we would proceed with the more aggressive taper.? in any event, dosing to be reduced by 5 mg/day as of today. 05/11: all labs results in, positives are for elevated CSF protein/albumin and pattern of CSF protein c/w alzheimer's dementia. continue induction on cholinesterase inhibitor, pednisone taper, work on dispo planning. 05/12: no change in presentation. discharge planning aggressively underway. start memantine tomorrow. currently planning for discharge monday. 05/13: memantine started today. decrease zyprexa at HS from 5 mg to 2.5 mg in attempt to decrease overall sedation. plan to decrease prednisone by 5 mg/day on monday. 05/14: continue current mgmt. decrease prednisone by 5 mg/day as of tomorrow morning. dispo planning underway. 05/15: continue current mgmt. family meeting tomorrow with pt's daughter and HCP, bakari. 05/16: family mtg held. SW looking into rest homes, family to pursue involving extended family for a place for pt to stay. FSBS elevated, prednisone taper ongoing, SSI being used. 05/17: no change in mgmt. met with jigna ACKERMAN and [facility] bunch to discuss dispo options. rest home is not an option, STR does not appear to be likely to be an option but is being pursued today. awaiting word from daughter on option to DC to brother's home. will need alf care daily for DM mgmt until no longer requiring SSI, however. per report, her insurance does not cover VNA. 05/18: stable presentation. requesting new MoCA and ACLS as pt's cognition seems to have improved slightly since treatment for AD began. 05/19: stable presentation. daughter working on dispo options. ACLS unchanged from prior. [facility] continue prednisone taper monday. 05/20 Less agitated. No med changes today. 05/21: prednisone taper in process, consider transfer to [facility] 05/22/2023 Hospitalist consult regarding hyperglycemia consider stopping olanzapine and changing to antipsychotic if needed lowered tendency to increase blood sugars. Discharge planning AFTER DISCUSSION WITH MARGARITA PEREZ THE PATIENT WAS PLACED LONG-ACTING INSULIN GLARGINE 05/23: FSBS trending down. continue current mgmt. T/C change to typical anti-psychotic. case d/w Dr. Trotter. 05/24: stable. DCed zyprexa and started haldol 2 mg QHS. completed review with insurance company . [facility]. 05/25: increase HS haldol to 4 mg, otherwise continue current mgmt. stable presentation. 05/26: no change in presentation. continue current mgmt. Reason for continued inpatient stay Substantial Risk for: inability to function and rapid decompensation Time Spent With Patient Time: Total time managing care of this patient today ____ minutes.
[2023-05-26 17:08] LABS: Glucose, Whole Blood 239 mg/dL (60-115)
[2023-05-26 18:00] VITALS: BP 149/70; PULSE 65; RESP 18; TEMP 36.1; O2SAT 97
[2023-05-26 20:05] LABS: Glucose, Whole Blood 217 mg/dL (60-115)
[2023-05-26] MEDS: predniSONE 10 MG TABLET PO (20:20)
[2023-05-26] MEDS: HaloperidoL 1 MG TABLET 4 MG PO (20:20)
[2023-05-27 08:25] VITALS: BP 115/60; PULSE 61; RESP 18; TEMP 36.3; O2SAT 97
[2023-05-27 08:50] LABS: Glucose, Whole Blood 139 mg/dL (60-115)
[2023-05-27] MEDS: Insulin Glargine,Hum.rec.anlog 100 UNIT/ML 10 ML VIAL 10 UNIT SUBCUT (08:56)
[2023-05-27] MEDS: Atorvastatin Calcium 40 MG TABLET PO (08:57)
[2023-05-27] MEDS: predniSONE 5 MG TABLET 15 MG PO (08:57)
[2023-05-27] MEDS: Omeprazole 20 MG CAPSULE.DR PO (08:57)
[2023-05-27] MEDS: Famotidine 20 MG TABLET PO (08:57)
[2023-05-27] MEDS: Sertraline HCL 50 MG TABLET PO (08:58)
[2023-05-27] MEDS: Empagliflozin 25 MG TABLET PO (08:58)
[2023-05-27] MEDS: Donepezil HCl 5 MG TABLET PO (08:58)
[2023-05-27] MEDS: metFORMIN HCl 1,000 MG TABLET 1000 MG PO ×2 (08:58→20:34)
[2023-05-27] MEDS: Memantine HCl 5 MG TABLET PO ×2 (08:58→20:36)
[2023-05-27 10:35] LABS: Estimated Glomerular Filt Rate > 60
[2023-05-27 12:34] LABS: Glucose, Whole Blood 199 mg/dL (60-115)
[2023-05-27] MEDS: Insulin Lispro 100 UNIT/ML 3 ML VIAL SUBCUT ×3 (12:36→20:33)
--- NOTE | 2023-05-27 14:43 | HO.PSYCHPN ---
Subjective Subjective Date of Service: 05/27/23 Reason For Visit: hallucinations confusion Interim History: no change in presentation. no questions or concerns. per staff, no changes. attending groups. meds and meals. Review of Systems Review of Systems No seizure or similar episode no stroke-like symptoms Yes all other systems are reviewed and are negative and Unobtainable due to mental status Constitutional: Reports as per HPI, Denies chills, Denies fatigue, Denies fever(s) and Denies headache(s) Denies headache(s) Cardiovascular: Denies chest pain and Denies dyspnea Respiratory: Denies cough and Denies dyspnea Gastrointestinal: Denies abdominal pain, Denies constipation and Denies vomiting Denies headache(s) and Denies focal weakness Psychiatric: Denies auditory hallucinations, Reports hallucinations (Per the patient's daughter. Patient denies this), Denies tactile hallucinations and Denies suicidal ideation Endocrine: Denies fatigue Mental Status Exam Mental Status Exam Narrative: calm, cooperative, diminutive. disheveled. general PMR. fair eye contact, speech nml rate, soft, decr prosody, decr amount. thoughts linear/relevant interchange; paucity of thought. affect constricted, hypo-intense, non-labile. no SI/SIBI/HI/AVH expressed. gross cognitive impairment. Patient Appearance: Disheveled Patient Orientation: Person, Place (states she is at the time share) and Time (thinks it is Fall, unable to say the year) Level of Consciousness: Alert Patient Behavior: Appropriate Mood Description: Calm Affect Description: Anxious, Labile (Mild lability) and Apprehensive Patient Cognition Impaired: Yes Ability to Follow Directions: Good Speech Pattern: Difficulty Finding Words Memory Description: Working Impaired Diagnostics Vital Signs (24Hr): Vital Signs - 24 hr 05/26/23 18:00 05/27/23 08:25 Temperature 97.0 F 97.4 F Pulse Rate 65 61 Respiratory Rate 18 18 Blood Pressure 149/70 H 115/60 Pulse Oximetry 97 97 Oxygen Delivery Method Room Air Room Air BMI result Body Mass Index 30.0 Labs 04/08/23 09:08 05/27/23 09:36 Labs: Laboratory Results - last 48 hr 05/25/23 05/25/23 05/26/23 17:22 20:41 08:44 Creatinine Estim Creat Clear Calc Estimated GFR POC Glucose 240 H 287 H 201 H 05/26/23 05/26/23 05/26/23 12:36 17:00 19:57 Creatinine Estim Creat Clear Calc Estimated GFR POC Glucose 289 H 239 H 217 H 05/27/23 05/27/23 05/27/23 08:45 09:36 12:30 Creatinine 0.77 Estim Creat Clear Calc 76.0 Estimated GFR > 60 POC Glucose 139 H 199 H Imaging Radiology Impressions: ITS Impressions Brain MRI 04/03/23 15:30 IMPRESSION: No acute infarct, mass lesion, intracranial hemorrhage, or evidence of hydrocephalus. Mild nonspecific T2/FLAIR hyperintensity in the cerebral white matter and danny presumably on the basis of chronic microangiopathy. Medications Medications Current Medications Acetaminophen (Acetaminophen 325 Mg Tablet) 650 mg PO Q6H PRN PRN Reason: Headache/Pain Mild Scale (1-3) Last Admin: 05/06/23 20:10 Dose: 650 mg Al Hydroxide/Mg Hydroxide (Magnesium Hydrox/Alum Hydrox 30 Ml Oral.Susp) 30 ml PO Q6H PRN PRN Reason: Heartburn/Nausea Atorvastatin Calcium (Atorvastatin Calcium 40 Mg Tablet) 40 mg PO DAILY [facility] Last Admin: 05/27/23 08:57 Dose: 40 mg Dextrose (Dextrose 50 % 25 Gm/50 Ml Syringe) 25 gm IVPUSH Q15M PRN; Protocol PRN Reason: per Hypoglycemia Standing Ord. Donepezil HCl (Donepezil Hcl 5 Mg Tablet) 5 mg PO DAILY [facility] Last Admin: 05/27/23 08:58 Dose: 5 mg Empagliflozin (Empagliflozin 25 Mg Tablet) 25 mg PO DAILY [facility] Last Admin: 05/27/23 08:58 Dose: 25 mg Famotidine (Famotidine 20 Mg Tablet) 20 mg PO DAILY [facility] Last Admin: 05/27/23 08:57 Dose: 20 mg Glucose (Glucose Gel 15 Gm Gel..Gram.) 15 gm PO Q15M PRN; Protocol PRN Reason: per Hypoglycemia Standing Ord. Haloperidol (Haloperidol 1 Mg Tablet) 4 mg PO BEDTIME [facility] Last Admin: 05/26/23 20:20 Dose: 4 mg Insulin Glargine (Insulin Glargine,Hum.Rec.Anlog 100 Unit/Ml 10 Ml Vial) 10 unit SUBCUT DAILY [facility] Last Admin: 05/27/23 08:56 Dose: 10 unit Insulin Human Lispro (Insulin Lispro 100 Unit/Ml 3 Ml Vial) 0 unit SUBCUT QIDACHS [facility]; Protocol Last Admin: 05/27/23 12:36 Dose: 2 unit Magnesium Hydroxide (Milk Of Magnesia 30 Ml Oral.Susp) 30 ml PO DAILY PRN PRN Reason: Constipation Memantine (Memantine Hcl 5 Mg Tablet) 5 mg PO BID [facility] Last Admin: 05/27/23 08:58 Dose: 5 mg Metformin HCl (Metformin Hcl 1,000 Mg Tablet) 1,000 mg PO BID [facility] Last Admin: 05/27/23 08:58 Dose: 1,000 mg Olanzapine (Olanzapine 2.5 Mg Tablet) 2.5 mg PO Q4H PRN PRN Reason: anxiety/agitation Last Admin: 04/29/23 17:17 Dose: 2.5 mg Omeprazole (Omeprazole 20 Mg Capsule.Dr) 20 mg PO DAILY [facility] Last Admin: 05/27/23 08:57 Dose: 20 mg Prednisone (Prednisone 5 Mg Tablet) 15 mg PO DAILY [facility] Stop: 05/28/23 09:01 Last Admin: 05/27/23 08:57 Dose: 15 mg Prednisone (Prednisone 10 Mg Tablet) 10 mg PO BEDTIME [facility] Last Admin: 05/26/23 20:20 Dose: 10 mg Prednisone (Prednisone 10 Mg Tablet) 10 mg PO DAILY [facility] Sertraline HCl (Sertraline Hcl 50 Mg Tablet) 50 mg PO DAILY [facility] Last Admin: 05/27/23 08:58 Dose: 50 mg Trazodone HCl (Trazodone Hcl 50 Mg Tablet) 50 mg PO BEDTIME MRX1 PRN PRN Reason: Insomnia Last Admin: 05/16/23 20:42 Dose: 50 mg Allergies Allergies Allergy/AdvReac Type Severity Reaction Status Date / Time No Known Allergies Allergy Verified 03/23/23 18:13 Assessment & Plan Assessment & Plan (1) Dementia: Status: Acute Code(s): F03.90 - Unspecified dementia, unspecified severity, without behavioral disturbance, psychotic disturbance, mood disturbance, and anxiety Assessment and Plan: 57 years old woman with somewhat rapidly progressing dementia or symptoms of dementia with CSF protein of 88 but otherwise no definite clue about her diagnosis. I discussed the case with neurology service at [facility] and they suggested that the workup has been appropriate and thorough and it was not clear if any further investigations were needed. Also, they did not have beds available for transfer According to their experience, this level of CSF protein could be seen and degenerative disorders but could also be seen in some type of spine pathology, which we have not investigated. In any case, high CSF protein without elevation of cells and without any significant brain lesions on MRI, does not suggest malignancy or vasculitis type of pathology. At this time, after discussing the case with the neurologist in [place], my recommendation is to treat her for degenerative dementia appearing in young age. Some CSF tests are pending which may confirm this notion. PET scan can also help. On the other hand, further CSF analysis and investigations for vasculitis like brain biopsy are not warranted. As far as treatment of dementia is concerned, it is symptomatic. I would start with donepezil 5 mg daily and after a week would add memantine 5 mg twice a day. These are the 2 types of medicines available at this time. Finally, her placement could be an issue as she would not be able to live independently Plan 05/05/23 Pt with gross disorganization b sister give hx of more gradual deterioration neuro note reviewed chart reviewed start aricept some csf results pending consider pet if available ?05/07/2023: No changes to current treatment plan.? Treatment team working on complex disposition which may include instituted living in [place] 05/08 continue tx. 05/09 continue tx. 05/10:? neuro believes Dx more likely dementia at this point, consulted with [place] neuro who informed him protein of 88 may sometimes be seen in dementia or spinal disorders and that w/u thus far here had been thorough and adequate.? plan to treat as dementia for now.? neuro rec starting donepezil and 1 week later memantine.? donepezil started 5 days ago, memantine scheduled to be started in 3 days.? 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 per review of [employer], their recommended taper for this pt's duration of therapy and daily dose is to reduce by 5 mg/day every 1-2 weeks.? as her time on steroids has been relatively short, we would proceed with the more aggressive taper.? in any event, dosing to be reduced by 5 mg/day as of today. 05/11: all labs results in, positives are for elevated CSF protein/albumin and pattern of CSF protein c/w alzheimer's dementia. continue induction on cholinesterase inhibitor, pednisone taper, work on dispo planning. 05/12: no change in presentation. discharge planning aggressively underway. start memantine tomorrow. currently planning for discharge monday. 05/13: memantine started today. decrease zyprexa at HS from 5 mg to 2.5 mg in attempt to decrease overall sedation. plan to decrease prednisone by 5 mg/day on monday. 05/14: continue current mgmt. decrease prednisone by 5 mg/day as of tomorrow morning. dispo planning underway. 05/15: continue current mgmt. family meeting tomorrow with pt's daughter and HCP, bakari. 05/16: family mtg held. SW looking into rest homes, family to pursue involving extended family for a place for pt to stay. FSBS elevated, prednisone taper ongoing, SSI being used. 05/17: no change in mgmt. met with [facility]KA and [facility] bunch to discuss dispo options. rest home is not an option, STR does not appear to be likely to be an option but is being pursued today. awaiting word from daughter on option to DC to brother's home. will need care home care daily for DM mgmt until no longer requiring SSI, however. per report, her insurance does not cover VNA. 05/18: stable presentation. requesting new MoCA and ACLS as pt's cognition seems to have improved slightly since treatment for AD began. 05/19: stable presentation. daughter working on dispo options. ACLS unchanged from prior. T/C transfer to [facility] today. continue prednisone taper monday. 05/20 Less agitated. No med changes today. 05/21: prednisone taper in process, [facility] 05/22/2023 Hospitalist consult regarding hyperglycemia consider stopping olanzapine and changing to antipsychotic if needed lowered tendency to increase blood sugars. Discharge planning AFTER DISCUSSION WITH MARGARITA PEREZ THE PATIENT WAS PLACED LONG-ACTING INSULIN GLARGINE 05/23: FSBS trending down. continue current mgmt. T/C change to typical anti-psychotic. case d/w Dr. Trotter. 05/24: stable. DCed zyprexa and started haldol 2 mg QHS. completed review with insurance company . continue to [facility] placement at [facility]. 05/25: increase HS haldol to 4 mg, otherwise continue current mgmt. stable presentation. 05/26: no change in presentation. continue current mgmt. 05/27: no change in presentation. continue current mgmt. Reason for continued inpatient stay Substantial Risk for: inability to function and rapid decompensation Time Spent With Patient Time: Total time managing care of this patient today ____ minutes.
[2023-05-27 16:55] LABS: Glucose, Whole Blood 209 mg/dL (60-115)
[2023-05-27 18:00] VITALS: BP 135/70; PULSE 63; RESP 18; TEMP 36.6; O2SAT 99
[2023-05-27 20:03] LABS: Glucose, Whole Blood 217 mg/dL (60-115)
[2023-05-27] MEDS: HaloperidoL 1 MG TABLET 4 MG PO (20:35)
[2023-05-27] MEDS: predniSONE 10 MG TABLET PO (20:37)
[2023-05-28 08:25] VITALS: BP 115/62; PULSE 58; RESP 16; TEMP 36.7; O2SAT 97
[2023-05-28 09:04] LABS: Glucose, Whole Blood 117 mg/dL (60-115)
[2023-05-28] MEDS: predniSONE 5 MG TABLET 15 MG PO (09:11)
[2023-05-28] MEDS: metFORMIN HCl 1,000 MG TABLET 1000 MG PO ×2 (09:12→21:00)
[2023-05-28] MEDS: Sertraline HCL 50 MG TABLET PO (09:12)
[2023-05-28] MEDS: Famotidine 20 MG TABLET PO (09:12)
[2023-05-28] MEDS: Empagliflozin 25 MG TABLET PO (09:12)
[2023-05-28] MEDS: Memantine HCl 5 MG TABLET PO ×2 (09:12→20:59)
[2023-05-28] MEDS: Donepezil HCl 5 MG TABLET PO (09:12)
[2023-05-28] MEDS: Omeprazole 20 MG CAPSULE.DR PO (09:12)
[2023-05-28] MEDS: Insulin Glargine,Hum.rec.anlog 100 UNIT/ML 10 ML VIAL 10 UNIT SUBCUT (09:12)
[2023-05-28] MEDS: Atorvastatin Calcium 40 MG TABLET PO (09:12)
--- NOTE | 2023-05-28 10:57 | HO.PSYCHPN ---
Subjective Subjective Date of Service: 05/28/23 Reason For Visit: hallucinations confusion Interim History: Patient seen and discussed. No big changes in presentation. 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 Per staff, noted to have significant memory impairment (didn't recall her date) but no changes in mood or behavior. meds and meal compliant. Stayed in her room to stay warm under the blanket due to the unit and room temperature being cold. Review of Systems Review of Systems No seizure or similar episode no stroke-like symptoms Yes all other systems are reviewed and are negative and Unobtainable due to mental status Constitutional: Reports as per HPI, Denies chills, Denies fatigue, Denies fever(s) and Denies headache(s) Denies headache(s) Cardiovascular: Denies chest pain and Denies dyspnea Respiratory: Denies cough and Denies dyspnea Gastrointestinal: Denies abdominal pain, Denies constipation and Denies vomiting Denies headache(s) and Denies focal weakness Psychiatric: Denies auditory hallucinations, Reports hallucinations (Per the patient's daughter. Patient denies this), Denies tactile hallucinations and Denies suicidal ideation Endocrine: Denies fatigue Mental Status Exam Mental Status Exam Narrative: calm, cooperative, diminutive. disheveled. general PMR. fair eye contact, speech nml rate, soft, decr prosody, decr amount. thoughts linear/relevant interchange; paucity of thought. affect constricted, hypo-intense, non-labile. no SI/SIBI/HI/AVH expressed. gross cognitive impairment. Patient Appearance: Disheveled Patient Orientation: Person, Place (states she is at the time share) and Time (thinks it is Fall, unable to say the year) Level of Consciousness: Alert Patient Behavior: Appropriate Mood Description: Calm Affect Description: Anxious, Labile (Mild lability) and Apprehensive Patient Cognition Impaired: Yes Ability to Follow Directions: Good Speech Pattern: Difficulty Finding Words Memory Description: Working Impaired Diagnostics Vital Signs (24Hr): Vital Signs - 24 hr 05/27/23 18:00 Temperature 97.8 F Pulse Rate 63 Respiratory Rate 18 Blood Pressure 135/70 Pulse Oximetry 99 Oxygen Delivery Method Room Air BMI result Body Mass Index 30.0 Labs 04/08/23 09:08 05/27/23 09:36 Labs: Laboratory Results - last 48 hr 05/26/23 05/26/23 05/26/23 12:36 17:00 19:57 Creatinine Estim Creat Clear Calc Estimated GFR POC Glucose 289 H 239 H 217 H 05/27/23 05/27/23 05/27/23 08:45 09:36 12:30 Creatinine 0.77 Estim Creat Clear Calc 76.0 Estimated GFR > 60 POC Glucose 139 H 199 H 05/27/23 05/27/23 05/28/23 16:47 19:54 08:59 Creatinine Estim Creat Clear Calc Estimated GFR POC Glucose 209 H 217 H 117 H Imaging Radiology Impressions: ITS Impressions Brain MRI 04/03/23 15:30 IMPRESSION: No acute infarct, mass lesion, intracranial hemorrhage, or evidence of hydrocephalus. Mild nonspecific T2/FLAIR hyperintensity in the cerebral white matter and danny presumably on the basis of chronic microangiopathy. Medications Medications Current Medications Acetaminophen (Acetaminophen 325 Mg Tablet) 650 mg PO Q6H PRN PRN Reason: Headache/Pain Mild Scale (1-3) Last Admin: 05/06/23 20:10 Dose: 650 mg Al Hydroxide/Mg Hydroxide (Magnesium Hydrox/Alum Hydrox 30 Ml Oral.Susp) 30 ml PO Q6H PRN PRN Reason: Heartburn/Nausea Atorvastatin Calcium (Atorvastatin Calcium 40 Mg Tablet) 40 mg PO DAILY [facility] Last Admin: 05/28/23 09:12 Dose: 40 mg Dextrose (Dextrose 50 % 25 Gm/50 Ml Syringe) 25 gm IVPUSH Q15M PRN; Protocol PRN Reason: per Hypoglycemia Standing Ord. Donepezil HCl (Donepezil Hcl 5 Mg Tablet) 5 mg PO DAILY [facility] Last Admin: 05/28/23 09:12 Dose: 5 mg Empagliflozin (Empagliflozin 25 Mg Tablet) 25 mg PO DAILY [facility] Last Admin: 05/28/23 09:12 Dose: 25 mg Famotidine (Famotidine 20 Mg Tablet) 20 mg PO DAILY [facility] Last Admin: 05/28/23 09:12 Dose: 20 mg Glucose (Glucose Gel 15 Gm Gel..Gram.) 15 gm PO Q15M PRN; Protocol PRN Reason: per Hypoglycemia Standing Ord. Haloperidol (Haloperidol 1 Mg Tablet) 4 mg PO BEDTIME [facility] Last Admin: 05/27/23 20:35 Dose: 4 mg Insulin Glargine (Insulin Glargine,Hum.Rec.Anlog 100 Unit/Ml 10 Ml Vial) 10 unit SUBCUT DAILY [facility] Last Admin: 05/28/23 09:12 Dose: 10 unit Insulin Human Lispro (Insulin Lispro 100 Unit/Ml 3 Ml Vial) 0 unit SUBCUT QIDACHS [facility]; Protocol Last Admin: 05/28/23 09:07 Dose: Not Given Magnesium Hydroxide (Milk Of Magnesia 30 Ml Oral.Susp) 30 ml PO DAILY PRN PRN Reason: Constipation Memantine (Memantine Hcl 5 Mg Tablet) 5 mg PO BID [facility] Last Admin: 05/28/23 09:12 Dose: 5 mg Metformin HCl (Metformin Hcl 1,000 Mg Tablet) 1,000 mg PO BID [facility] Last Admin: 05/28/23 09:12 Dose: 1,000 mg Olanzapine (Olanzapine 2.5 Mg Tablet) 2.5 mg PO Q4H PRN PRN Reason: anxiety/agitation Last Admin: 04/29/23 17:17 Dose: 2.5 mg Omeprazole (Omeprazole 20 Mg Capsule.Dr) 20 mg PO DAILY [facility] Last Admin: 05/28/23 09:12 Dose: 20 mg Prednisone (Prednisone 10 Mg Tablet) 10 mg PO BEDTIME [facility] Last Admin: 05/27/23 20:37 Dose: 10 mg Prednisone (Prednisone 10 Mg Tablet) 10 mg PO DAILY [facility] Sertraline HCl (Sertraline Hcl 50 Mg Tablet) 50 mg PO DAILY [facility] Last Admin: 05/28/23 09:12 Dose: 50 mg Trazodone HCl (Trazodone Hcl 50 Mg Tablet) 50 mg PO BEDTIME MRX1 PRN PRN Reason: Insomnia Last Admin: 05/16/23 20:42 Dose: 50 mg Allergies Allergies Allergy/AdvReac Type Severity Reaction Status Date / Time No Known Allergies Allergy Verified 03/23/23 18:13 Assessment & Plan Assessment & Plan (1) Dementia: Status: Acute Code(s): F03.90 - Unspecified dementia, unspecified severity, without behavioral disturbance, psychotic disturbance, mood disturbance, and anxiety Assessment and Plan: 57 years old woman with somewhat rapidly progressing dementia or symptoms of dementia with CSF protein of 88 but otherwise no definite clue about her diagnosis. I discussed the case with neurology service at [facility] and they suggested that the workup has been appropriate and thorough and it was not clear if any further investigations were needed. Also, they did not have beds available for transfer According to their experience, this level of CSF protein could be seen and degenerative disorders but could also be seen in some type of spine pathology, which we have not investigated. In any case, high CSF protein without elevation of cells and without any significant brain lesions on MRI, does not suggest malignancy or vasculitis type of pathology. At this time, after discussing the case with the neurologist in [place], my recommendation is to treat her for degenerative dementia appearing in young age. Some CSF tests are pending which may confirm this notion. PET scan can also help. On the other hand, further CSF analysis and investigations for vasculitis like brain biopsy are not warranted. As far as treatment of dementia is concerned, it is symptomatic. I would start with donepezil 5 mg daily and after a week would add memantine 5 mg twice a day. These are the 2 types of medicines available at this time. Finally, her placement could be an issue as she would not be able to live independently Plan 05/05/23 Pt with gross disorganization b sister give hx of more gradual deterioration neuro note reviewed chart reviewed start aricept some csf results pending consider pet if available ?05/07/2023: No changes to current treatment plan.? Treatment team working on complex disposition which may include instituted living in [place] 05/08 continue tx. 05/09 continue tx. 05/10:? neuro believes Dx more likely dementia at this point, consulted with [place] [facility] who informed him protein of 88 may sometimes be seen in dementia or spinal disorders and that w/u thus far here had been thorough and adequate.? plan to treat as dementia for now.? neuro rec starting donepezil and 1 week later memantine.? donepezil started 5 days ago, memantine scheduled to be started in 3 days.? 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 per review of [employer], their recommended taper for this pt's duration of therapy and daily dose is to reduce by 5 mg/day every 1-2 weeks.? as her time on steroids has been relatively short, we would proceed with the more aggressive taper.? in any event, dosing to be reduced by 5 mg/day as of today. 05/11: all labs results in, positives are for elevated CSF protein/albumin and pattern of CSF protein c/w alzheimer's dementia. continue induction on cholinesterase inhibitor, pednisone taper, work on dispo planning. 05/12: no change in presentation. discharge planning aggressively underway. start memantine tomorrow. currently planning for discharge monday. 05/13: memantine started today. decrease zyprexa at HS from 5 mg to 2.5 mg in attempt to decrease overall sedation. plan to decrease prednisone by 5 mg/day on monday. 05/14: continue current mgmt. decrease prednisone by 5 mg/day as of tomorrow morning. dispo planning underway. 05/15: continue current mgmt. family meeting tomorrow with pt's daughter and HCP, bakari. 05/16: family mtg held. SW looking into rest homes, family to pursue involving extended family for a place for pt to stay. FSBS elevated, prednisone taper ongoing, SSI being used. 05/17: no change in mgmt. met with [facility] and [facility] bunch to discuss dispo options. rest home is not an option, STR does not appear to be likely to be an option but is being pursued today. awaiting word from daughter on option to DC to brother's home. will need snf care daily for DM mgmt until no longer requiring SSI, however. per report, her insurance does not cover VNA. 05/18: stable presentation. requesting new MoCA and ACLS as pt's cognition seems to have improved slightly since treatment for AD began. 05/19: stable presentation. daughter working on dispo options. ACLS unchanged from prior. T/C transfer to [facility] today. continue prednisone taper monday. 05/20 Less agitated. No med changes today. 05/21: prednisone taper in process, consider transfer to psychiatric 05/22/2023 Hospitalist consult regarding hyperglycemia consider stopping olanzapine and changing to antipsychotic if needed lowered tendency to increase blood sugars. Discharge planning AFTER DISCUSSION WITH MARGARITA PEREZ THE PATIENT WAS PLACED LONG-ACTING INSULIN GLARGINE 05/23: FSBS trending down. continue current mgmt. T/C change to typical anti-psychotic. case d/w Dr. Trotter. 05/24: stable. DCed zyprexa and started haldol 2 mg QHS. completed review with insurance company . continue to seek placement at half-way care facility. 05/25: increase HS haldol to 4 mg, otherwise continue current mgmt. stable presentation. 05/26: no change in presentation. continue current mgmt. 05/27: no change in presentation. continue current mgmt. 05/28: no change in presentation. continue current mgmt. Reason for continued inpatient stay Substantial Risk for: inability to function and rapid decompensation Time Spent With Patient Time: Total time managing care of this patient today ____ minutes.
[2023-05-28 12:40] LABS: Glucose, Whole Blood 149 mg/dL (60-115)
[2023-05-28 17:39] LABS: Glucose, Whole Blood 166 mg/dL (60-115)
[2023-05-28] MEDS: Insulin Lispro 100 UNIT/ML 3 ML VIAL SUBCUT ×2 (18:09→21:00)
[2023-05-28] MEDS: HaloperidoL 1 MG TABLET 4 MG PO (20:59)
[2023-05-28 21:00] VITALS: BP 130/60; PULSE 67; RESP 16; TEMP 36.7; O2SAT 96
[2023-05-28] MEDS: predniSONE 10 MG TABLET PO (21:00)
[2023-05-28 21:16] LABS: Glucose, Whole Blood 250 mg/dL (60-115)
[2023-05-29 08:16] LABS: Glucose, Whole Blood 124 mg/dL (60-115)
[2023-05-29] MEDS: Atorvastatin Calcium 40 MG TABLET PO (08:49)
[2023-05-29] MEDS: metFORMIN HCl 1,000 MG TABLET 1000 MG PO ×2 (08:49→20:58)
[2023-05-29] MEDS: Memantine HCl 5 MG TABLET PO ×2 (08:49→20:57)
[2023-05-29] MEDS: Omeprazole 20 MG CAPSULE.DR PO (08:49)
[2023-05-29] MEDS: Sertraline HCL 50 MG TABLET PO (08:49)
[2023-05-29] MEDS: Famotidine 20 MG TABLET PO (08:50)
[2023-05-29] MEDS: Empagliflozin 25 MG TABLET PO (08:50)
[2023-05-29] MEDS: predniSONE 10 MG TABLET PO ×2 (08:50→20:58)
[2023-05-29] MEDS: Donepezil HCl 5 MG TABLET PO (08:50)
[2023-05-29 08:51] VITALS: BP 137/77; PULSE 62; RESP 18; TEMP 36.4; O2SAT 97
[2023-05-29] MEDS: Insulin Glargine,Hum.rec.anlog 100 UNIT/ML 10 ML VIAL 10 UNIT SUBCUT (09:26)
[2023-05-29 12:53] LABS: Glucose, Whole Blood 206 mg/dL (60-115)
[2023-05-29] MEDS: Insulin Lispro 100 UNIT/ML 3 ML VIAL SUBCUT ×3 (12:53→20:55)
--- NOTE | 2023-05-29 13:52 | P.PNPSI_ITS ---
Subjective Subjective Date of Service: 05/29/23 Reason For Visit: hallucinations confusion Interim History: no change in presentation. per staff, alert, pleasant, cooperative. FSBS improving. bored. doesn't know her own birthday. pleasant. sleeping well. attending groups. FSBS 250 last NOC. poor sleep last night 2/2 roommate. Mental Status Exam Mental Status Exam Narrative: calm, cooperative, diminutive. disheveled. general PMR. fair eye contact, speech nml rate, soft, decr prosody, decr amount. thoughts linear/relevant interchange; paucity of thought. affect constricted, hypo-intense, non-labile. no SI/SIBI/HI/AVH expressed. gross cognitive impairment. Diagnostics Vital Signs (24Hr): Vital Signs - 24 hr 05/28/23 21:00 05/29/23 08:51 Temperature 98.1 F 97.6 F Pulse Rate 67 62 Respiratory Rate 16 18 Blood Pressure 130/60 137/77 Pulse Oximetry 96 97 Oxygen Delivery Method Room Air Room Air BMI result Body Mass Index 30.0 Labs 04/08/23 09:08 05/27/23 09:36 Labs: Laboratory Results - last 48 hr 05/27/23 05/27/23 05/28/23 16:47 19:54 08:59 POC Glucose 209 H 217 H 117 H 05/28/23 05/28/23 05/28/23 12:35 17:33 20:51 POC Glucose 149 H 166 H 250 H 05/29/23 05/29/23 08:13 12:42 POC Glucose 124 H 206 H Imaging Radiology Impressions: ITS Impressions Brain MRI 04/03/23 15:30 IMPRESSION: No acute infarct, mass lesion, intracranial hemorrhage, or evidence of hydrocephalus. Mild nonspecific T2/FLAIR hyperintensity in the cerebral white matter and danny presumably on the basis of chronic microangiopathy. Medications Medications Current Medications Acetaminophen (Acetaminophen 325 Mg Tablet) 650 mg PO Q6H PRN PRN Reason: Headache/Pain Mild Scale (1-3) Last Admin: 05/06/23 20:10 Dose: 650 mg Al Hydroxide/Mg Hydroxide (Magnesium Hydrox/Alum Hydrox 30 Ml Oral.Susp) 30 ml PO Q6H PRN PRN Reason: Heartburn/Nausea Atorvastatin Calcium (Atorvastatin Calcium 40 Mg Tablet) 40 mg PO DAILY [facility] Last Admin: 05/29/23 08:49 Dose: 40 mg Dextrose (Dextrose 50 % 25 Gm/50 Ml Syringe) 25 gm IVPUSH Q15M PRN; Protocol PRN Reason: per Hypoglycemia Standing Ord. Donepezil HCl (Donepezil Hcl 5 Mg Tablet) 5 mg PO DAILY [facility] Last Admin: 05/29/23 08:50 Dose: 5 mg Empagliflozin (Empagliflozin 25 Mg Tablet) 25 mg PO DAILY [facility] Last Admin: 05/29/23 08:50 Dose: 25 mg Famotidine (Famotidine 20 Mg Tablet) 20 mg PO DAILY [facility] Last Admin: 05/29/23 08:50 Dose: 20 mg Glucose (Glucose Gel 15 Gm Gel..Gram.) 15 gm PO Q15M PRN; Protocol PRN Reason: per Hypoglycemia Standing Ord. Haloperidol (Haloperidol 1 Mg Tablet) 4 mg PO BEDTIME [facility] Last Admin: 05/28/23 20:59 Dose: 4 mg Insulin Glargine (Insulin Glargine,Hum.Rec.Anlog 100 Unit/Ml 10 Ml Vial) 10 unit SUBCUT DAILY [facility] Last Admin: 05/29/23 09:26 Dose: 10 unit Insulin Human Lispro (Insulin Lispro 100 Unit/Ml 3 Ml Vial) 0 unit SUBCUT QIDACHS [facility]; Protocol Last Admin: 05/29/23 12:53 Dose: 4 unit Magnesium Hydroxide (Milk Of Magnesia 30 Ml Oral.Susp) 30 ml PO DAILY PRN PRN Reason: Constipation Memantine (Memantine Hcl 5 Mg Tablet) 5 mg PO BID [facility] Last Admin: 05/29/23 08:49 Dose: 5 mg Metformin HCl (Metformin Hcl 1,000 Mg Tablet) 1,000 mg PO BID [facility] Last Admin: 05/29/23 08:49 Dose: 1,000 mg Olanzapine (Olanzapine 2.5 Mg Tablet) 2.5 mg PO Q4H PRN PRN Reason: anxiety/agitation Last Admin: 04/29/23 17:17 Dose: 2.5 mg Omeprazole (Omeprazole 20 Mg Capsule.Dr) 20 mg PO DAILY [facility] Last Admin: 05/29/23 08:49 Dose: 20 mg Prednisone (Prednisone 10 Mg Tablet) 10 mg PO BEDTIME [facility] Last Admin: 05/28/23 21:00 Dose: 10 mg Prednisone (Prednisone 10 Mg Tablet) 10 mg PO DAILY [facility] Last Admin: 05/29/23 08:50 Dose: 10 mg Sertraline HCl (Sertraline Hcl 50 Mg Tablet) 50 mg PO DAILY [facility] Last Admin: 05/29/23 08:49 Dose: 50 mg Trazodone HCl (Trazodone Hcl 50 Mg Tablet) 50 mg PO BEDTIME MRX1 PRN PRN Reason: Insomnia Last Admin: 05/16/23 20:42 Dose: 50 mg Allergies Allergies Allergy/AdvReac Type Severity Reaction Status Date / Time No Known Allergies Allergy Verified 03/23/23 18:13 Assessment & Plan Assessment & Plan (1) Dementia: Status: Acute Code(s): F03.90 - Unspecified dementia, unspecified severity, without behavioral disturbance, psychotic disturbance, mood disturbance, and anxiety Assessment and Plan: 57 years old woman with somewhat rapidly progressing dementia or symptoms of dementia with CSF protein of 88 but otherwise no definite clue about her diagnosis. I discussed the case with neurology service at [facility] and they suggested that the workup has been appropriate and thorough and it was not clear if any further investigations were needed. Also, they did not have beds available for transfer According to their experience, this level of CSF protein could be seen and degenerative disorders but could also be seen in some type of spine pathology, which we have not investigated. In any case, high CSF protein without elevation of cells and without any significant brain lesions on MRI, does not suggest malignancy or vasculitis type of pathology. At this time, after discussing the case with the neurologist in [place], my recommendation is to treat her for degenerative dementia appearing in young age. Some CSF tests are pending which may confirm this notion. PET scan can also help. On the other hand, further CSF analysis and investigations for vasculitis like brain biopsy are not warranted. As far as treatment of dementia is concerned, it is symptomatic. I would start with donepezil 5 mg daily and after a week would add memantine 5 mg twice a day. These are the 2 types of medicines available at this time. Finally, her placement could be an issue as she would not be able to live independently Plan 05/05/23 Pt with gross disorganization b sister give hx of more gradual deterioration neuro note reviewed chart reviewed start aricept some csf results pending consider pet if available ?05/07/2023: No changes to current treatment plan.? Treatment team working on complex disposition which may include instituted living in [place] 05/08 continue tx. 05/09 continue tx. 05/10:? neuro believes Dx more likely dementia at this point, consulted with [place] neuro who informed him protein of 88 may sometimes be seen in dementia or spinal disorders and that w/u thus far here had been thorough and adequate.? plan to treat as dementia for now.? neuro rec starting donepezil and 1 week later memantine.? donepezil started 5 days ago, memantine scheduled to be started in 3 days.? 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 per review of [employer], their recommended taper for this pt's duration of therapy and daily dose is to reduce by 5 mg/day every 1-2 weeks.? as her time on steroids has been relatively short, we would proceed with the more aggressive taper.? in any event, dosing to be reduced by 5 mg/day as of today. 05/11: all labs results in, positives are for elevated CSF protein/albumin and pattern of CSF protein c/w alzheimer's dementia. continue induction on cholin esterase inhibitor, pednisone taper, work on dispo planning. 05/12: no change in presentation. discharge planning aggressively underway. start memantine tomorrow. currently planning for discharge monday. 05/13: memantine started today. decrease zyprexa at HS from 5 mg to 2.5 mg in attempt to decrease overall sedation. plan to decrease prednisone by 5 mg/day on monday. 05/14: continue current mgmt. decrease prednisone by 5 mg/day as of tomorrow morning. dispo planning underway. 05/15: continue current mgmt. family meeting tomorrow with pt's daughter and HCP, bakari. 05/16: family mtg held. [facility] looking into rest homes, family to pursue involving extended family for a place for pt to stay. FSBS elevated, prednisone taper ongoing, SSI being used. 05/17: no change in mgmt. met with jigna ACKERMAN and [facility] bunch to discuss dispo options. rest home is not an option, STR does not appear to be likely to be an option but is being pursued today. awaiting word from daughter on option to DC to brother's home. will need [facility] care daily for DM mgmt until no longer requiring SSI, however. per report, her insurance does not cover VNA. 05/18: stable presentation. requesting new MoCA and ACLS as pt's cognition seems to have improved slightly since treatment for AD began. 05/19: stable presentation. daughter working on dispo options. ACLS unchanged from prior. T/C transfer to [facility] today. continue prednisone taper monday. 05/20 Less agitated. No med changes today. 05/21: prednisone taper in process, consider transfer to [facility] 05/22/2023 Hospitalist consult regarding hyperglycemia consider stopping olanzapine and changing to antipsychotic if needed lowered tendency to increase blood sugars. Discharge planning AFTER DISCUSSION WITH MARGARITA PEREZ THE PATIENT WAS PLACED LONG-ACTING INSULIN GLARGINE 05/23: FSBS trending down. continue current mgmt. T/C change to typical anti- psychotic. case d/w Dr. Trotter. 05/24: stable. DCed zyprexa and started haldol 2 mg QHS. completed review with insurance [employer] MD. continue to seek placement at long-term care facility. 05/25: increase HS haldol to 4 mg, otherwise continue current mgmt. stable presentation. 05/26: no change in presentation. continue current mgmt. 05/27: no change in presentation. continue current mgmt. 05/28: no change in presentation. continue current mgmt. 05/29: no change, continue. Reason for continued inpatient stay Substantial Risk for: harm to self and inability to function Time Spent With Patient Time: Total time managing care of this patient today ____ minutes.
[2023-05-29 18:00] LABS: Glucose, Whole Blood 241 mg/dL (60-115)
[2023-05-29 20:24] LABS: Glucose, Whole Blood 227 mg/dL (60-115)
[2023-05-29 20:53] VITALS: BP 132/62; PULSE 71; TEMP 36.6; O2SAT 98
[2023-05-29] MEDS: HaloperidoL 1 MG TABLET 4 MG PO (20:57)
[2023-05-30 08:05] LABS: Glucose, Whole Blood 144 mg/dL (60-115)
[2023-05-30 08:10] VITALS: BP 118/59; PULSE 56; RESP 18; TEMP 530.6; TEMP 987; O2SAT 95
[2023-05-30] MEDS: predniSONE 10 MG TABLET PO ×2 (08:38→20:24)
[2023-05-30] MEDS: Memantine HCl 5 MG TABLET PO ×2 (08:38→20:24)
[2023-05-30] MEDS: Empagliflozin 25 MG TABLET PO (08:38)
[2023-05-30] MEDS: Sertraline HCL 50 MG TABLET PO (08:38)
[2023-05-30] MEDS: Omeprazole 20 MG CAPSULE.DR PO (08:38)
[2023-05-30] MEDS: Donepezil HCl 5 MG TABLET PO (08:38)
[2023-05-30] MEDS: Famotidine 20 MG TABLET PO (08:38)
[2023-05-30] MEDS: metFORMIN HCl 1,000 MG TABLET 1000 MG PO ×2 (08:38→20:23)
[2023-05-30] MEDS: Atorvastatin Calcium 40 MG TABLET PO (08:38)
[2023-05-30] MEDS: Insulin Glargine,Hum.rec.anlog 100 UNIT/ML 10 ML VIAL 10 UNIT SUBCUT (09:11)
[2023-05-30 12:30] LABS: Glucose, Whole Blood 128 mg/dL (60-115)
--- NOTE | 2023-05-30 15:20 | P.PNPSI_ITS ---
Subjective Subjective Date of Service: 05/30/23 Reason For Visit: hallucinations confusion Interim History: no change in presentation. FSBS improved. per staff, visible, pleasant, cooperative. Mental Status Exam Mental Status Exam Narrative: calm, cooperative, diminutive. disheveled. general PMR. fair eye contact, speech nml rate, soft, decr prosody, decr amount. thoughts linear/relevant interchange; paucity of thought. affect constricted, hypo-intense, non-labile. no SI/SIBI/HI/AVH expressed. gross cognitive impairment. Diagnostics Vital Signs (24Hr): Vital Signs - 24 hr 05/29/23 20:53 05/30/23 08:10 Temperature 97.8 F 987.0 F H Pulse Rate 71 56 Respiratory Rate 18 Blood Pressure 132/62 118/59 L Pulse Oximetry 98 95 Oxygen Delivery Method Room Air Room Air BMI result Body Mass Index 30.0 Labs 04/08/23 09:08 05/27/23 09:36 Labs: Laboratory Results - last 48 hr 05/28/23 05/28/23 05/29/23 17:33 20:51 08:13 POC Glucose 166 H 250 H 124 H 05/29/23 05/29/23 05/29/23 12:42 17:35 20:14 POC Glucose 206 H 241 H 227 H 05/30/23 05/30/23 08:01 12:26 POC Glucose 144 H 128 H Imaging Radiology Impressions: ITS Impressions Brain MRI 04/03/23 15:30 IMPRESSION: No acute infarct, mass lesion, intracranial hemorrhage, or evidence of hydrocephalus. Mild nonspecific T2/FLAIR hyperintensity in the cerebral white matter and danny presumably on the basis of chronic microangiopathy. Medications Medications Current Medications Acetaminophen (Acetaminophen 325 Mg Tablet) 650 mg PO Q6H PRN PRN Reason: Headache/Pain Mild Scale (1-3) Last Admin: 05/06/23 20:10 Dose: 650 mg Al Hydroxide/Mg Hydroxide (Magnesium Hydrox/Alum Hydrox 30 Ml Oral.Susp) 30 ml PO Q6H PRN PRN Reason: Heartburn/Nausea Atorvastatin Calcium (Atorvastatin Calcium 40 Mg Tablet) 40 mg PO DAILY [facility] Last Admin: 05/30/23 08:38 Dose: 40 mg Dextrose (Dextrose 50 % 25 Gm/50 Ml Syringe) 25 gm IVPUSH Q15M PRN; Protocol PRN Reason: per Hypoglycemia Standing Ord. Donepezil HCl (Donepezil Hcl 5 Mg Tablet) 5 mg PO DAILY [facility] Last Admin: 05/30/23 08:38 Dose: 5 mg Empagliflozin (Empagliflozin 25 Mg Tablet) 25 mg PO DAILY [facility] Last Admin: 05/30/23 08:38 Dose: 25 mg Famotidine (Famotidine 20 Mg Tablet) 20 mg PO DAILY [facility] Last Admin: 05/30/23 08:38 Dose: 20 mg Glucose (Glucose Gel 15 Gm Gel..Gram.) 15 gm PO Q15M PRN; Protocol PRN Reason: per Hypoglycemia Standing Ord. Haloperidol (Haloperidol 1 Mg Tablet) 4 mg PO BEDTIME [facility] Last Admin: 05/29/23 20:57 Dose: 4 mg Insulin Glargine (Insulin Glargine,Hum.Rec.Anlog 100 Unit/Ml 10 Ml Vial) 10 unit SUBCUT DAILY [facility] Last Admin: 05/30/23 09:11 Dose: 10 unit Insulin Human Lispro (Insulin Lispro 100 Unit/Ml 3 Ml Vial) 0 unit SUBCUT QIDACHS [facility]; Protocol Last Admin: 05/30/23 13:03 Dose: Not Given Magnesium Hydroxide (Milk Of Magnesia 30 Ml Oral.Susp) 30 ml PO DAILY PRN PRN Reason: Constipation Memantine (Memantine Hcl 5 Mg Tablet) 5 mg PO BID [facility] Last Admin: 05/30/23 08:38 Dose: 5 mg Metformin HCl (Metformin Hcl 1,000 Mg Tablet) 1,000 mg PO BID [facility] Last Admin: 05/30/23 08:38 Dose: 1,000 mg Olanzapine (Olanzapine 2.5 Mg Tablet) 2.5 mg PO Q4H PRN PRN Reason: anxiety/agitation Last Admin: 04/29/23 17:17 Dose: 2.5 mg Omeprazole (Omeprazole 20 Mg Capsule.Dr) 20 mg PO DAILY [facility] Last Admin: 05/30/23 08:38 Dose: 20 mg Prednisone (Prednisone 10 Mg Tablet) 10 mg PO BEDTIME [facility] Last Admin: 05/29/23 20:58 Dose: 10 mg Prednisone (Prednisone 10 Mg Tablet) 10 mg PO DAILY [facility] Last Admin: 05/30/23 08:38 Dose: 10 mg Sertraline HCl (Sertraline Hcl 50 Mg Tablet) 50 mg PO DAILY [facility] Last Admin: 05/30/23 08:38 Dose: 50 mg Trazodone HCl (Trazodone Hcl 50 Mg Tablet) 50 mg PO BEDTIME MRX1 PRN PRN Reason: Insomnia Last Admin: 05/16/23 20:42 Dose: 50 mg Allergies Allergies Allergy/AdvReac Type Severity Reaction Status Date / Time No Known Allergies Allergy Verified 03/23/23 18:13 Assessment & Plan Assessment & Plan (1) Dementia: Status: Acute Code(s): F03.90 - Unspecified dementia, unspecified severity, without behavioral disturbance, psychotic disturbance, mood disturbance, and anxiety Assessment and Plan: 57 years old woman with somewhat rapidly progressing dementia or symptoms of dementia with CSF protein of 88 but otherwise no definite clue about her diagnosis. I discussed the case with neurology service at [facility] and they suggested that the workup has been appropriate and thorough and it was not clear if any further investigations were needed. Also, they did not have beds available for transfer According to their experience, this level of CSF protein could be seen and degenerative disorders but could also be seen in some type of spine pathology, which we have not investigated. In any case, high CSF protein without elevation of cells and without any significant brain lesions on MRI, does not suggest malignancy or vasculitis type of pathology. At this time, after discussing the case with the neurologist in [place], my recommendation is to treat her for degenerative dementia appearing in young age. Some CSF tests are pending which may confirm this notion. PET scan can also help. On the other hand, further CSF analysis and investigations for vasculitis like brain biopsy are not warranted. As far as treatment of dementia is concerned, it is symptomatic. I would start with donepezil 5 mg daily and after a week would add memantine 5 mg twice a day. These are the 2 types of medicines available at this time. Finally, her placement could be an issue as she would not be able to live independently Plan 05/05/23 Pt with gross disorganization b sister give hx of more gradual deterioration neuro note reviewed chart reviewed start aricept some csf results pending consider pet if available ?05/07/2023: No changes to current treatment plan.? Treatment team working on complex disposition which may include instituted living in [place] 05/08 continue tx. 05/09 continue tx. 05/10:? neuro believes Dx more likely dementia at this point, consulted with [facility] neuro who informed him protein of 88 may sometimes be seen in dementia or spinal disorders and that w/u thus far here had been thorough and adequate.? plan to treat as dementia for now.? neuro rec starting donepezil and 1 week later memantine.? donepezil started 5 days ago, memantine scheduled to be started in 3 days.? 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 per review of [email or web address], their recommended taper for this pt's duration of therapy and daily dose is to reduce by 5 mg/day every 1-2 weeks.? as her time on steroids has been relatively short, we would proceed with the more aggressive taper.? in any event, dosing to be reduced by 5 mg/day as of today. 05/11: all labs results in, positives are for elevated CSF protein/albumin and pattern of CSF protein c/w alzheimer's dementia. continue induction on cholinesterase inhibitor, pednisone taper, work on dispo planning. 05/12: no change in presentation. discharge planning aggressively underway. start memantine tomorrow. currently planning for discharge monday. 05/13: memantine started today. decrease zyprexa at HS from 5 mg to 2.5 mg in attempt to decrease overall sedation. plan to decrease prednisone by 5 mg/day on monday. 05/14: continue current mgmt. decrease prednisone by 5 mg/day as of tomorrow morning. dispo planning underway. 05/15: continue current mgmt. family meeting tomorrow with pt's daughter and HCP, bakari. 05/16: family mtg held. SW looking into rest homes, family to pursue involving extended family for a place for pt to stay. FSBS elevated, prednisone taper ongoing, SSI being used. 05/17: no change in mgmt. met with jigna ACKERMAN and MEKA bunch to discuss dispo options. rest home is not an option, STR does not appear to be likely to be an option but is being pursued today. awaiting word from daughter on option to DC to brother's home. will need custodial care daily for DM mgmt until no longer requiring SSI, however. per report, her insurance does not cover VNA. 05/18: stable presentation. requesting new MoCA and ACLS as pt's cognition seems to have improved slightly since treatment for AD began. 05/19: stable presentation. daughter working on dispo options. ACLS unchanged from prior. T/C transfer to [facility] today. continue prednisone taper monday. 05/20 Less agitated. No med changes today. 05/21: prednisone taper in process, consider transfer to the medical center 05/22/2023 Hospitalist consult regarding hyperglycemia consider stopping olanzapine and changing to antipsychotic if needed lowered tendency to increase blood sugars. Discharge planning AFTER DISCUSSION WITH MARGARITA PEREZ THE PATIENT WAS PLACED LONG-ACTING INSULIN GLARGINE 05/23: FSBS trending down. continue current mgmt. T/C change to typical anti- psychotic. case d/w Dr. Trotter. 05/24: stable. DCed zyprexa and started haldol 2 mg QHS. completed review with insurance company . continue [facility]. 05/25: increase HS haldol to 4 mg, otherwise continue current mgmt. stable presentation. 05/26: no change in presentation. continue current mgmt. 05/27: no change in presentation. continue current mgmt. 05/28: no change in presentation. continue current mgmt. 05/29: no change, continue. 05/30: no change, continue. Reason for continued inpatient stay Substantial Risk for: inability to function Time Spent With Patient Time: Total time managing care of this patient today ____ minutes.
[2023-05-30 17:42] LABS: Glucose, Whole Blood 195 mg/dL (60-115)
[2023-05-30] MEDS: Insulin Lispro 100 UNIT/ML 3 ML VIAL SUBCUT ×2 (17:52→20:24)
[2023-05-30 19:58] LABS: Glucose, Whole Blood 260 mg/dL (60-115)
[2023-05-30 20:00] VITALS: BP 117/60; PULSE 63; RESP 18; TEMP 36.9; O2SAT 96
[2023-05-30] MEDS: HaloperidoL 1 MG TABLET 4 MG PO (20:23)
[2023-05-31 08:09] VITALS: PULSE 69; RESP 18; TEMP 35.8; O2SAT 96
[2023-05-31] MEDS: Famotidine 20 MG TABLET PO (08:10)
[2023-05-31] MEDS: predniSONE 10 MG TABLET PO ×2 (08:10→20:53)
[2023-05-31] MEDS: metFORMIN HCl 1,000 MG TABLET 1000 MG PO ×2 (08:10→20:53)
[2023-05-31] MEDS: Sertraline HCL 50 MG TABLET PO (08:10)
[2023-05-31] MEDS: Donepezil HCl 5 MG TABLET PO (08:10)
[2023-05-31] MEDS: Atorvastatin Calcium 40 MG TABLET PO (08:10)
[2023-05-31] MEDS: Omeprazole 20 MG CAPSULE.DR PO (08:10)
[2023-05-31] MEDS: Empagliflozin 25 MG TABLET PO (08:10)
[2023-05-31] MEDS: Memantine HCl 5 MG TABLET PO ×2 (08:10→20:53)
[2023-05-31 08:35] LABS: Glucose, Whole Blood 128 mg/dL (60-115)
[2023-05-31] MEDS: Insulin Glargine,Hum.rec.anlog 100 UNIT/ML 10 ML VIAL 10 UNIT SUBCUT (09:10)
--- NOTE | 2023-05-31 12:39 | HO.PSYCHPN ---
Subjective Subjective Date of Service: 05/31/23 Reason For Visit: hallucinations confusion Interim History: sleeping late morning. denies any problems, no questions or complaints. per staff, reporting mild dep/anx. sleeping well. eating well. POC 260 last NOC, otherwise below 200 yesterday. Mental Status Exam Mental Status Exam Narrative: calm, cooperative, diminutive. disheveled. general PMR. fair eye contact, speech nml rate, soft, decr prosody, decr amount. thoughts linear/relevant interchange; paucity of thought. affect constricted, hypo-intense, non-labile. no SI/SIBI/HI/AVH expressed. gross cognitive impairment. Diagnostics Vital Signs (24Hr): Vital Signs - 24 hr 05/30/23 20:00 05/31/23 08:09 Temperature 98.4 F 96.5 F L Pulse Rate 63 69 Respiratory Rate 18 18 Blood Pressure 117/60 Pulse Oximetry 96 96 Oxygen Delivery Method Room Air Room Air BMI result Body Mass Index 30.0 Labs 04/08/23 09:08 05/27/23 09:36 Labs: Laboratory Results - last 48 hr 05/29/23 05/29/23 05/29/23 12:42 17:35 20:14 POC Glucose 206 H 241 H 227 H 05/30/23 05/30/23 05/30/23 08:01 12:26 17:30 POC Glucose 144 H 128 H 195 H 05/30/23 05/31/23 19:47 08:07 POC Glucose 260 H 128 H Imaging Radiology Impressions: ITS Impressions Brain MRI 04/03/23 15:30 IMPRESSION: No acute infarct, mass lesion, intracranial hemorrhage, or evidence of hydrocephalus. Mild nonspecific T2/FLAIR hyperintensity in the cerebral white matter and danny presumably on the basis of chronic microangiopathy. Medications Medications Current Medications Acetaminophen (Acetaminophen 325 Mg Tablet) 650 mg PO Q6H PRN PRN Reason: Headache/Pain Mild Scale (1-3) Last Admin: 05/06/23 20:10 Dose: 650 mg Al Hydroxide/Mg Hydroxide (Magnesium Hydrox/Alum Hydrox 30 Ml Oral.Susp) 30 ml PO Q6H PRN PRN Reason: Heartburn/Nausea Atorvastatin Calcium (Atorvastatin Calcium 40 Mg Tablet) 40 mg PO DAILY [facility] Last Admin: 05/31/23 08:10 Dose: 40 mg Dextrose (Dextrose 50 % 25 Gm/50 Ml Syringe) 25 gm IVPUSH Q15M PRN; Protocol PRN Reason: per Hypoglycemia Standing Ord. Donepezil HCl (Donepezil Hcl 5 Mg Tablet) 5 mg PO DAILY [facility] Last Admin: 05/31/23 08:10 Dose: 5 mg Empagliflozin (Empagliflozin 25 Mg Tablet) 25 mg PO DAILY [facility] Last Admin: 05/31/23 08:10 Dose: 25 mg Famotidine (Famotidine 20 Mg Tablet) 20 mg PO DAILY [facility] Last Admin: 05/31/23 08:10 Dose: 20 mg Glucose (Glucose Gel 15 Gm Gel..Gram.) 15 gm PO Q15M PRN; Protocol PRN Reason: per Hypoglycemia Standing Ord. Haloperidol (Haloperidol 1 Mg Tablet) 4 mg PO BEDTIME [facility] Last Admin: 05/30/23 20:23 Dose: 4 mg Insulin Glargine (Insulin Glargine,Hum.Rec.Anlog 100 Unit/Ml 10 Ml Vial) 10 unit SUBCUT DAILY [facility] Last Admin: 05/31/23 09:10 Dose: 10 unit Insulin Human Lispro (Insulin Lispro 100 Unit/Ml 3 Ml Vial) 0 unit SUBCUT QIDACHS [facility]; Protocol Last Admin: 05/31/23 08:15 Dose: Not Given Magnesium Hydroxide (Milk Of Magnesia 30 Ml Oral.Susp) 30 ml PO DAILY PRN PRN Reason: Constipation Memantine (Memantine Hcl 5 Mg Tablet) 5 mg PO BID [facility] Last Admin: 05/31/23 08:10 Dose: 5 mg Metformin HCl (Metformin Hcl 1,000 Mg Tablet) 1,000 mg PO BID [facility] Last Admin: 05/31/23 08:10 Dose: 1,000 mg Olanzapine (Olanzapine 2.5 Mg Tablet) 2.5 mg PO Q4H PRN PRN Reason: anxiety/agitation Last Admin: 04/29/23 17:17 Dose: 2.5 mg Omeprazole (Omeprazole 20 Mg Capsule.Dr) 20 mg PO DAILY [facility] Last Admin: 05/31/23 08:10 Dose: 20 mg Prednisone (Prednisone 10 Mg Tablet) 10 mg PO BEDTIME [facility] Last Admin: 05/30/23 20:24 Dose: 10 mg Prednisone (Prednisone 10 Mg Tablet) 10 mg PO DAILY [facility] Last Admin: 05/31/23 08:10 Dose: 10 mg Sertraline HCl (Sertraline Hcl 50 Mg Tablet) 50 mg PO DAILY [facility] Last Admin: 05/31/23 08:10 Dose: 50 mg Trazodone HCl (Trazodone Hcl 50 Mg Tablet) 50 mg PO BEDTIME MRX1 PRN PRN Reason: Insomnia Last Admin: 05/16/23 20:42 Dose: 50 mg Allergies Allergies Allergy/AdvReac Type Severity Reaction Status Date / Time No Known Allergies Allergy Verified 03/23/23 18:13 Assessment & Plan Assessment & Plan (1) Dementia: Status: Acute Code(s): F03.90 - Unspecified dementia, unspecified severity, without behavioral disturbance, psychotic disturbance, mood disturbance, and anxiety Assessment and Plan: 57 years old woman with somewhat rapidly progressing dementia or symptoms of dementia with CSF protein of 88 but otherwise no definite clue about her diagnosis. I discussed the case with neurology service at [facility] and they suggested that the workup has been appropriate and thorough and it was not clear if any further investigations were needed. Also, they did not have beds available for transfer According to their experience, this level of CSF protein could be seen and degenerative disorders but could also be seen in some type of spine pathology, which we have not investigated. In any case, high CSF protein without elevation of cells and without any significant brain lesions on MRI, does not suggest malignancy or vasculitis type of pathology. At this time, after discussing the case with the neurologist in [place], my recommendation is to treat her for degenerative dementia appearing in young age. Some CSF tests are pending which may confirm this notion. PET scan can also help. On the other hand, further CSF analysis and investigations for vasculitis like brain biopsy are not warranted. As far as treatment of dementia is concerned, it is symptomatic. I would start with donepezil 5 mg daily and after a week would add memantine 5 mg twice a day. These are the 2 types of medicines available at this time. Finally, her placement could be an issue as she would not be able to live independently Plan 05/05/23 Pt with gross disorganization b sister give hx of more gradual deterioration neuro note reviewed chart reviewed start aricept some csf results pending consider pet if available ?05/07/2023: No changes to current treatment plan.? Treatment team working on complex disposition which may include instituted living in [place] 05/08 continue tx. 05/09 continue tx. 05/10:? neuro believes Dx more likely dementia at this point, consulted with [facility] neuro who informed him protein of 88 may sometimes be seen in dementia or spinal disorders and that w/u thus far here had been thorough and adequate.? plan to treat as dementia for now.? neuro rec starting donepezil and 1 week later memantine.? donepezil started 5 days ago, memantine scheduled to be started in 3 days.? 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 per review of [employer], their recommended taper for this pt's duration of therapy and daily dose is to reduce by 5 mg/day every 1-2 weeks.? as her time on steroids has been relatively short, we would proceed with the more aggressive taper.? in any event, dosing to be reduced by 5 mg/day as of today. 05/11: all labs results in, positives are for elevated CSF protein/albumin and pattern of CSF protein c/w alzheimer's dementia. continue induction on cholinesterase inhibitor, pednisone taper, work on dispo planning. 05/12: no change in presentation. discharge planning aggressively underway. start memantine tomorrow. currently planning for discharge monday. 05/13: memantine started today. decrease zyprexa at HS from 5 mg to 2.5 mg in attempt to decrease overall sedation. plan to decrease prednisone by 5 mg/day on monday. 05/14: continue current mgmt. decrease prednisone by 5 mg/day as of tomorrow morning. dispo planning underway. 05/15: continue current mgmt. family meeting tomorrow with pt's daughter and HCP, bakari. 05/16: family mtg held. SW looking into rest homes, family to pursue involving extended family for a place for pt to stay. FSBS elevated, prednisone taper ongoing, SSI being used. 05/17: no change in mgmt. met with jigna ACKERMAN and MEKA bunch to discuss dispo options. rest home is not an option, STR does not appear to be likely to be an option but is being pursued today. awaiting word from daughter on option to DC to brother's home. will need residential care daily for DM mgmt until no longer requiring SSI, however. per report, her insurance does not cover VNA. 05/18: stable presentation. requesting new MoCA and ACLS as pt's cognition seems to have improved slightly since treatment for AD began. 05/19: stable presentation. daughter working on dispo options. ACLS unchanged from prior. T/C transfer to [facility] today. continue prednisone taper monday. 05/20 Less agitated. No med changes today. 05/21: prednisone taper in process, consider transfer to [facility] 05/22/2023 Hospitalist consult regarding hyperglycemia consider stopping olanzapine and changing to antipsychotic if needed lowered tendency to increase blood sugars. Discharge planning AFTER DISCUSSION WITH MARGARITA PEREZ THE PATIENT WAS PLACED LONG-ACTING INSULIN GLARGINE 05/23: FSBS trending down. continue current mgmt. T/C change to typical anti-psychotic. case d/w Dr. Trotter. 05/24: stable. DCed zyprexa and started haldol 2 mg QHS. completed review with insurance company MD. continue to seek placement at long-term care facility. 05/25: increase HS haldol to 4 mg, otherwise continue current mgmt. stable presentation. 05/26: no change in presentation. continue current mgmt. 05/27: no change in presentation. continue current mgmt. 05/28: no change in presentation. continue current mgmt. 05/29: no change, continue. 05/30: no change, continue. 05/31: FSBS trending better, recently mostly below 200. otherwise no changes. continue current mgmt. Reason for continued inpatient stay Substantial Risk for: inability to function Time Spent With Patient Time: Total time managing care of this patient today ____ minutes.
[2023-05-31 12:43] LABS: Glucose, Whole Blood 143 mg/dL (60-115)
[2023-05-31 17:42] LABS: Glucose, Whole Blood 154 mg/dL (60-115)
[2023-05-31] MEDS: Insulin Lispro 100 UNIT/ML 3 ML VIAL SUBCUT ×2 (17:49→20:51)
[2023-05-31 19:40] VITALS: BP 121/68; PULSE 66; RESP 18; TEMP 36.5; O2SAT 96
[2023-05-31 19:53] LABS: Glucose, Whole Blood 206 mg/dL (60-115)
[2023-05-31] MEDS: HaloperidoL 1 MG TABLET 4 MG PO (20:53)
[2023-06-01 06:00] VITALS: BP 132/84; PULSE 66; RESP 18; TEMP 36.7; O2SAT 97
[2023-06-01 09:37] LABS: Glucose, Whole Blood 94 mg/dL (60-115)
[2023-06-01] MEDS: Donepezil HCl 5 MG TABLET PO (09:45)
[2023-06-01] MEDS: metFORMIN HCl 1,000 MG TABLET 1000 MG PO ×2 (09:45→20:52)
[2023-06-01] MEDS: Atorvastatin Calcium 40 MG TABLET PO (09:45)
[2023-06-01] MEDS: Insulin Glargine,Hum.rec.anlog 100 UNIT/ML 10 ML VIAL 10 UNIT SUBCUT (09:45)
[2023-06-01] MEDS: predniSONE 10 MG TABLET PO ×2 (09:45→20:52)
[2023-06-01] MEDS: Empagliflozin 25 MG TABLET PO (09:45)
[2023-06-01] MEDS: Omeprazole 20 MG CAPSULE.DR PO (09:45)
[2023-06-01] MEDS: Famotidine 20 MG TABLET PO (09:45)
[2023-06-01] MEDS: Memantine HCl 5 MG TABLET PO ×2 (09:45→20:52)
[2023-06-01] MEDS: Sertraline HCL 50 MG TABLET PO (09:45)
[2023-06-01 13:05] LABS: Glucose, Whole Blood 90 mg/dL (60-115)
--- NOTE | 2023-06-01 13:54 | HO.PSYCHPN ---
Subjective Subjective Date of Service: 06/01/23 Reason For Visit: hallucinations confusion Interim History: no change in presentation. no complaints or requests. per staff, no issues. FSBS 128, 143, 154, 206 in the past 24H. Mental Status Exam Mental Status Exam Narrative: calm, cooperative, diminutive. disheveled. general PMR. fair eye contact, speech nml rate, soft, decr prosody, decr amount. thoughts linear/relevant interchange; paucity of thought. affect constricted, hypo-intense, non-labile. no SI/SIBI/HI/AVH expressed. gross cognitive impairment. Diagnostics Vital Signs (24Hr): Vital Signs - 24 hr 05/31/23 19:40 06/01/23 06:00 Temperature 97.7 F 98.1 F Pulse Rate 66 66 Respiratory Rate 18 18 Blood Pressure 121/68 132/84 Pulse Oximetry 96 97 Oxygen Delivery Method Room Air Room Air BMI result Body Mass Index 30.0 Labs 04/08/23 09:08 05/27/23 09:36 Labs: Laboratory Results - last 48 hr 05/30/23 05/30/23 05/31/23 17:30 19:47 08:07 POC Glucose 195 H 260 H 128 H 05/31/23 05/31/23 05/31/23 12:39 17:37 19:46 POC Glucose 143 H 154 H 206 H 06/01/23 06/01/23 09:33 12:48 POC Glucose 94 90 Imaging Radiology Impressions: ITS Impressions Brain MRI 04/03/23 15:30 IMPRESSION: No acute infarct, mass lesion, intracranial hemorrhage, or evidence of hydrocephalus. Mild nonspecific T2/FLAIR hyperintensity in the cerebral white matter and danny presumably on the basis of chronic microangiopathy. Medications Medications Current Medications Acetaminophen (Acetaminophen 325 Mg Tablet) 650 mg PO Q6H PRN PRN Reason: Headache/Pain Mild Scale (1-3) Last Admin: 05/06/23 20:10 Dose: 650 mg Al Hydroxide/Mg Hydroxide (Magnesium Hydrox/Alum Hydrox 30 Ml Oral.Susp) 30 ml PO Q6H PRN PRN Reason: Heartburn/Nausea Atorvastatin Calcium (Atorvastatin Calcium 40 Mg Tablet) 40 mg PO DAILY [facility] Last Admin: 06/01/23 09:45 Dose: 40 mg Dextrose (Dextrose 50 % 25 Gm/50 Ml Syringe) 25 gm IVPUSH Q15M PRN; Protocol PRN Reason: per Hypoglycemia Standing Ord. Donepezil HCl (Donepezil Hcl 5 Mg Tablet) 5 mg PO DAILY [facility] Last Admin: 06/01/23 09:45 Dose: 5 mg Empagliflozin (Empagliflozin 25 Mg Tablet) 25 mg PO DAILY [facility] Last Admin: 06/01/23 09:45 Dose: 25 mg Famotidine (Famotidine 20 Mg Tablet) 20 mg PO DAILY [facility] Last Admin: 06/01/23 09:45 Dose: 20 mg Glucose (Glucose Gel 15 Gm Gel..Gram.) 15 gm PO Q15M PRN; Protocol PRN Reason: per Hypoglycemia Standing Ord. Haloperidol (Haloperidol 1 Mg Tablet) 4 mg PO BEDTIME [facility] Last Admin: 05/31/23 20:53 Dose: 4 mg Insulin Glargine (Insulin Glargine,Hum.Rec.Anlog 100 Unit/Ml 10 Ml Vial) 10 unit SUBCUT DAILY [facility] Last Admin: 06/01/23 09:45 Dose: 10 unit Insulin Human Lispro (Insulin Lispro 100 Unit/Ml 3 Ml Vial) 0 unit SUBCUT QIDACHS [facility]; Protocol Last Admin: 06/01/23 13:09 Dose: Not Given Magnesium Hydroxide (Milk Of Magnesia 30 Ml Oral.Susp) 30 ml PO DAILY PRN PRN Reason: Constipation Memantine (Memantine Hcl 5 Mg Tablet) 5 mg PO BID [facility] Last Admin: 06/01/23 09:45 Dose: 5 mg Metformin HCl (Metformin Hcl 1,000 Mg Tablet) 1,000 mg PO BID [facility] Last Admin: 06/01/23 09:45 Dose: 1,000 mg Olanzapine (Olanzapine 2.5 Mg Tablet) 2.5 mg PO Q4H PRN PRN Reason: anxiety/agitation Last Admin: 04/29/23 17:17 Dose: 2.5 mg Omeprazole (Omeprazole 20 Mg Capsule.Dr) 20 mg PO DAILY [facility] Last Admin: 06/01/23 09:45 Dose: 20 mg Prednisone (Prednisone 10 Mg Tablet) 10 mg PO BEDTIME [facility] Last Admin: 05/31/23 20:53 Dose: 10 mg Prednisone (Prednisone 10 Mg Tablet) 10 mg PO DAILY [facility] Last Admin: 06/01/23 09:45 Dose: 10 mg Sertraline HCl (Sertraline Hcl 50 Mg Tablet) 50 mg PO DAILY [facility] Last Admin: 06/01/23 09:45 Dose: 50 mg Trazodone HCl (Trazodone Hcl 50 Mg Tablet) 50 mg PO BEDTIME MRX1 PRN PRN Reason: Insomnia Last Admin: 05/16/23 20:42 Dose: 50 mg Allergies Allergies Allergy/AdvReac Type Severity Reaction Status Date / Time No Known Allergies Allergy Verified 03/23/23 18:13 Assessment & Plan Assessment & Plan (1) Dementia: Status: Acute Code(s): F03.90 - Unspecified dementia, unspecified severity, without behavioral disturbance, psychotic disturbance, mood disturbance, and anxiety Assessment and Plan: 57 years old woman with somewhat rapidly progressing dementia or symptoms of dementia with CSF protein of 88 but otherwise no definite clue about her diagnosis. I discussed the case with neurology service at [facility] and they suggested that the workup has been appropriate and thorough and it was not clear if any further investigations were needed. Also, they did not have beds available for transfer According to their experience, this level of CSF protein could be seen and degenerative disorders but could also be seen in some type of spine pathology, which we have not investigated. In any case, high CSF protein without elevation of cells and without any significant brain lesions on MRI, does not suggest malignancy or vasculitis type of pathology. At this time, after discussing the case with the neurologist in [place], my recommendation is to treat her for degenerative dementia appearing in young age. Some CSF tests are pending which may confirm this notion. PET scan can also help. On the other hand, further CSF analysis and investigations for vasculitis like brain biopsy are not warranted. As far as treatment of dementia is concerned, it is symptomatic. I would start with donepezil 5 mg daily and after a week would add memantine 5 mg twice a day. These are the 2 types of medicines available at this time. Finally, her placement could be an issue as she would not be able to live independently Plan 05/05/23 Pt with gross disorganization b sister give hx of more gradual deterioration neuro note reviewed chart reviewed start aricept some csf results pending consider pet if available ?05/07/2023: No changes to current treatment plan.? Treatment team working on complex disposition which may include instituted living in [place] 05/08 continue tx. 05/09 continue tx. 05/10:? neuro believes Dx more likely dementia at this point, consulted with [facility] who informed him protein of 88 may sometimes be seen in dementia or spinal disorders and that w/u thus far here had been thorough and adequate.? plan to treat as dementia for now.? neuro rec starting donepezil and 1 week later memantine.? donepezil started 5 days ago, memantine scheduled to be started in 3 days.? 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 per review of [employer], their recommended taper for this pt's duration of therapy and daily dose is to reduce by 5 mg/day every 1-2 weeks.? as her time on steroids has been relatively short, we would proceed with the more aggressive taper.? in any event, dosing to be reduced by 5 mg/day as of today. 05/11: all labs results in, positives are for elevated CSF protein/albumin and pattern of CSF protein c/w alzheimer's dementia. continue induction on cholinesterase inhibitor, pednisone taper, work on dispo planning. 05/12: no change in presentation. discharge planning aggressively underway. start memantine tomorrow. currently planning for discharge monday. 05/13: memantine started today. decrease zyprexa at HS from 5 mg to 2.5 mg in attempt to decrease overall sedation. plan to decrease prednisone by 5 mg/day on monday. 05/14: continue current mgmt. decrease prednisone by 5 mg/day as of tomorrow morning. dispo planning underway. 05/15: continue current mgmt. family meeting tomorrow with pt's daughter and HCP, bakari. 05/16: family mtg held. SW looking into rest homes, family to pursue involving extended family for a place for pt to stay. FSBS elevated, prednisone taper ongoing, SSI being used. 05/17: no change in mgmt. met with jigna ACKERMAN and MEKA bunch to discuss dispo options. rest home is not an option, STR does not appear to be likely to be an option but is being pursued today. awaiting word from daughter on option to DC to brother's home. will need detention care daily for DM mgmt until no longer requiring SSI, however. per report, her insurance does not cover VNA. 05/18: stable presentation. requesting new MoCA and ACLS as pt's cognition seems to have improved slightly since treatment for AD began. 05/19: stable presentation. daughter working on dispo options. ACLS unchanged from prior. T/C transfer to [facility] today. continue prednisone taper monday. 05/20 Less agitated. No med changes today. 05/21: prednisone taper in process, consider transfer to [facility] 05/22/2023 Hospitalist consult regarding hyperglycemia consider stopping olanzapine and changing to antipsychotic if needed lowered tendency to increase blood sugars. Discharge planning AFTER DISCUSSION WITH MARGARITA PEREZ THE PATIENT WAS PLACED LONG-ACTING INSULIN GLARGINE 05/23: FSBS trending down. continue current mgmt. T/C change to typical anti-psychotic. case d/w Dr. Trotter. 05/24: stable. DCed zyprexa and started haldol 2 mg QHS. completed review with insurance company . continue to seek placement at care home care facility. 05/25: increase HS haldol to 4 mg, otherwise continue current mgmt. stable presentation. 05/26: no change in presentation. continue current mgmt. 05/27: no change in presentation. continue current mgmt. 05/28: no change in presentation. continue current mgmt. 05/29: no change, continue. 05/30: no change, continue. 05/31: FSBS trending better, recently mostly below 200. otherwise no changes. continue current mgmt. 06/01: FSBS trending better, recently mostly below 200. otherwise no changes. continue current mgmt. daughter has not returned any of 's calls for the past week. Reason for continued inpatient stay Substantial Risk for: inability to function Time Spent With Patient Time: Total time managing care of this patient today ____ minutes.
[2023-06-01 16:16] LABS: Glucose, Whole Blood 121 mg/dL (60-115)
[2023-06-01 19:56] LABS: Glucose, Whole Blood 233 mg/dL (60-115)
[2023-06-01 20:45] VITALS: BP 121/65; PULSE 65; RESP 16; TEMP 36.3; O2SAT 97
[2023-06-01] MEDS: HaloperidoL 1 MG TABLET 4 MG PO (20:53)
[2023-06-01] MEDS: Insulin Lispro 100 UNIT/ML 3 ML VIAL SUBCUT (20:57)
[2023-06-02 08:15] VITALS: BP 111/65; PULSE 70; RESP 18; TEMP 36.4; O2SAT 96
[2023-06-02 08:17] LABS: Glucose, Whole Blood 219 mg/dL (60-115)
[2023-06-02] MEDS: Insulin Lispro 100 UNIT/ML 3 ML VIAL SUBCUT ×4 (08:56→21:15)
[2023-06-02] MEDS: Famotidine 20 MG TABLET PO (08:57)
[2023-06-02] MEDS: Insulin Glargine,Hum.rec.anlog 100 UNIT/ML 10 ML VIAL 10 UNIT SUBCUT (08:57)
[2023-06-02] MEDS: metFORMIN HCl 1,000 MG TABLET 1000 MG PO ×2 (08:58→21:13)
[2023-06-02] MEDS: Empagliflozin 25 MG TABLET PO (08:58)
[2023-06-02] MEDS: Atorvastatin Calcium 40 MG TABLET PO (08:58)
[2023-06-02] MEDS: Omeprazole 20 MG CAPSULE.DR PO (08:58)
[2023-06-02] MEDS: Memantine HCl 5 MG TABLET PO ×2 (08:58→21:12)
[2023-06-02] MEDS: Sertraline HCL 50 MG TABLET PO (08:58)
[2023-06-02] MEDS: predniSONE 10 MG TABLET PO ×2 (08:58→21:13)
[2023-06-02] MEDS: Donepezil HCl 5 MG TABLET PO (08:58)
[2023-06-02 12:59] LABS: Glucose, Whole Blood 154 mg/dL (60-115)
--- NOTE | 2023-06-02 13:28 | P.PNPSI_ITS ---
Subjective Subjective Date of Service: 06/02/23 Reason For Visit: hallucinations confusion Interim History: no change in presentation. per staff, FSBS trending down. no issues. Mental Status Exam Mental Status Exam Narrative: calm, cooperative, diminutive. disheveled. general PMR. fair eye contact, speech nml rate, soft, decr prosody, decr amount. thoughts linear/relevant interchange; paucity of thought. affect constricted, hypo-intense, non-labile. no SI/SIBI/HI/AVH expressed. gross cognitive impairment. Diagnostics Vital Signs (24Hr): Vital Signs - 24 hr 06/01/23 20:45 06/02/23 08:15 Temperature 97.4 F 97.5 F Pulse Rate 65 70 Respiratory Rate 16 18 Blood Pressure 121/65 111/65 Pulse Oximetry 97 96 Oxygen Delivery Method Room Air Room Air BMI result Body Mass Index 30.0 Labs 04/08/23 09:08 05/27/23 09:36 Labs: Laboratory Results - last 48 hr 05/31/23 05/31/23 06/01/23 17:37 19:46 09:33 POC Glucose 154 H 206 H 94 06/01/23 06/01/23 06/01/23 12:48 16:09 19:43 POC Glucose 90 121 H 233 H 06/02/23 06/02/23 08:09 12:56 POC Glucose 219 H 154 H Imaging Radiology Impressions: ITS Impressions Brain MRI 04/03/23 15:30 IMPRESSION: No acute infarct, mass lesion, intracranial hemorrhage, or evidence of hydrocephalus. Mild nonspecific T2/FLAIR hyperintensity in the cerebral white matter and danny presumably on the basis of chronic microangiopathy. Medications Medications Current Medications Acetaminophen (Acetaminophen 325 Mg Tablet) 650 mg PO Q6H PRN PRN Reason: Headache/Pain Mild Scale (1-3) Last Admin: 05/06/23 20:10 Dose: 650 mg Al Hydroxide/Mg Hydroxide (Magnesium Hydrox/Alum Hydrox 30 Ml Oral.Susp) 30 ml PO Q6H PRN PRN Reason: Heartburn/Nausea Atorvastatin Calcium (Atorvastatin Calcium 40 Mg Tablet) 40 mg PO DAILY [facility] Last Admin: 06/02/23 08:58 Dose: 40 mg Dextrose (Dextrose 50 % 25 Gm/50 Ml Syringe) 25 gm IVPUSH Q15M PRN; Protocol PRN Reason: per Hypoglycemia Standing Ord. Donepezil HCl (Donepezil Hcl 5 Mg Tablet) 5 mg PO DAILY [facility] Last Admin: 06/02/23 08:58 Dose: 5 mg Empagliflozin (Empagliflozin 25 Mg Tablet) 25 mg PO DAILY [facility] Last Admin: 06/02/23 08:58 Dose: 25 mg Famotidine (Famotidine 20 Mg Tablet) 20 mg PO DAILY [facility] Last Admin: 06/02/23 08:57 Dose: 20 mg Glucose (Glucose Gel 15 Gm Gel..Gram.) 15 gm PO Q15M PRN; Protocol PRN Reason: per Hypoglycemia Standing Ord. Haloperidol (Haloperidol 1 Mg Tablet) 4 mg PO BEDTIME [facility] Last Admin: 06/01/23 20:53 Dose: 4 mg Insulin Glargine (Insulin Glargine,Hum.Rec.Anlog 100 Unit/Ml 10 Ml Vial) 8 unit SUBCUT DAILY [facility] Insulin Human Lispro (Insulin Lispro 100 Unit/Ml 3 Ml Vial) 0 unit SUBCUT QIDACHS [facility]; Protocol Last Admin: 06/02/23 13:04 Dose: 2 unit Magnesium Hydroxide (Milk Of Magnesia 30 Ml Oral.Susp) 30 ml PO DAILY PRN PRN Reason: Constipation Memantine (Memantine Hcl 5 Mg Tablet) 5 mg PO BID [facility] Last Admin: 06/02/23 08:58 Dose: 5 mg Metformin HCl (Metformin Hcl 1,000 Mg Tablet) 1,000 mg PO BID [facility] Last Admin: 06/02/23 08:58 Dose: 1,000 mg Olanzapine (Olanzapine 2.5 Mg Tablet) 2.5 mg PO Q4H PRN PRN Reason: anxiety/agitation Last Admin: 04/29/23 17:17 Dose: 2.5 mg Omeprazole (Omeprazole 20 Mg Capsule.Dr) 20 mg PO DAILY [facility] Last Admin: 06/02/23 08:58 Dose: 20 mg Prednisone (Prednisone 10 Mg Tablet) 10 mg PO BEDTIME [facility] Stop: 06/05/23 20:59 Last Admin: 06/01/23 20:52 Dose: 10 mg Prednisone (Prednisone 10 Mg Tablet) 10 mg PO DAILY [facility] Last Admin: 06/02/23 08:58 Dose: 10 mg Prednisone (Prednisone 5 Mg Tablet) 5 mg PO BEDTIME [facility] Stop: 06/12/23 10:28 Sertraline HCl (Sertraline Hcl 50 Mg Tablet) 50 mg PO DAILY [facility] Last Admin: 06/02/23 08:58 Dose: 50 mg Trazodone HCl (Trazodone Hcl 50 Mg Tablet) 50 mg PO BEDTIME MRX1 PRN PRN Reason: Insomnia Last Admin: 05/16/23 20:42 Dose: 50 mg Allergies Allergies Allergy/AdvReac Type Severity Reaction Status Date / Time No Known Allergies Allergy Verified 03/23/23 18:13 Assessment & Plan Assessment & Plan (1) Dementia: Status: Acute Code(s): F03.90 - Unspecified dementia, unspecified severity, without behavioral disturbance, psychotic disturbance, mood disturbance, and anxiety Assessment and Plan: 57 years old woman with somewhat rapidly progressing dementia or symptoms of dementia with CSF protein of 88 but otherwise no definite clue about her diagnosis. I discussed the case with neurology service at [facility] and they suggested that the workup has been appropriate and thorough and it was not clear if any further investigations were needed. Also, they did not have beds available for transfer According to their experience, this level of CSF protein could be seen and degenerative disorders but could also be seen in some type of spine pathology, which we have not investigated. In any case, high CSF protein without elevation of cells and without any significant brain lesions on MRI, does not suggest malignancy or vasculitis type of pathology. At this time, after discussing the case with the neurologist in [place], my recommendation is to treat her for degenerative dementia appearing in young age. Some CSF tests are pending which may confirm this notion. PET scan can also help. On the other hand, further CSF analysis and investigations for vasculitis like brain biopsy are not warranted. As far as treatment of dementia is concerned, it is symptomatic. I would start with donepezil 5 mg daily and after a week would add memantine 5 mg twice a day. These are the 2 types of medicines available at this time. Finally, her placement could be an issue as she would not be able to live independently Plan 05/05/23 Pt with gross disorganization b sister give hx of more gradual deterioration neuro note reviewed chart reviewed start aricept some csf results pending consider pet if available ?05/07/2023: No changes to current treatment plan.? Treatment team working on complex disposition which may include instituted living in [place] 05/08 continue tx. 05/09 continue tx. 05/10:? neuro believes Dx more likely dementia at this point, consulted with [place] neuro who informed him protein of 88 may sometimes be seen in dementia or spinal disorders and that w/u thus far here had been thorough and adequate.? plan to treat as dementia for now.? neuro rec starting donepezil and 1 week later memantine.? donepezil started 5 days ago, memantine scheduled to be started in 3 days.? 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 per review of [employer], their recommended taper for this pt's duration of therapy and daily dose is to reduce by 5 mg/day every 1-2 weeks.? as her time on steroids has been relatively short, we would proceed with the more aggressive taper.? in any event, dosing to be reduced by 5 mg/day as of today. 05/11: all labs results in, positives are for elevated CSF protein/albumin and pattern of CSF protein c/w alzheimer's dementia. continue induction on cholin esterase inhibitor, pednisone taper, work on dispo planning. 05/12: no change in presentation. discharge planning aggressively underway. start memantine tomorrow. currently planning for discharge monday. 05/13: memantine started today. decrease zyprexa at HS from 5 mg to 2.5 mg in attempt to decrease overall sedation. plan to decrease prednisone by 5 mg/day on monday. 05/14: continue current mgmt. decrease prednisone by 5 mg/day as of tomorrow morning. dispo planning underway. 05/15: continue current mgmt. family meeting tomorrow with pt's daughter and HCP, bakari. 05/16: family mtg held. MEKA looking into rest homes, family to pursue involving extended family for a place for pt to stay. FSBS elevated, prednisone taper ongoing, SSI being used. 05/17: no change in mgmt. met with jigna ACKERMAN and MEKA bunch to discuss dispo options. rest home is not an option, STR does not appear to be likely to be an option but is being pursued today. awaiting word from daughter on option to DC to brother's home. will need senior living care daily for DM mgmt until no longer requiring SSI, however. per report, her insurance does not cover VNA. 05/18: stable presentation. requesting new MoCA and ACLS as pt's cognition seems to have improved slightly since treatment for AD began. 05/19: stable presentation. daughter working on dispo options. ACLS unchanged from prior. T/C transfer to [facility] today. continue prednisone taper monday. 05/20 Less agitated. No med changes today. 05/21: prednisone taper in process, consider transfer to [facility] 05/22/2023 Hospitalist consult regarding hyperglycemia consider stopping olanzapine and changing to antipsychotic if needed lowered tendency to increase blood sugars. Discharge planning AFTER DISCUSSION WITH MARGARITA PEREZ THE PATIENT WAS PLACED LONG-ACTING INSULIN GLARGINE 05/23: FSBS trending down. continue current mgmt. T/C change to typical anti- psychotic. case d/w Dr. Trotter. 05/24: stable. DCed zyprexa and started haldol 2 mg QHS. completed review with insurance company . [facility]. 05/25: increase HS haldol to 4 mg, otherwise continue current mgmt. stable presentation. 05/26: no change in presentation. continue current mgmt. 05/27: no change in presentation. continue current mgmt. 05/28: no change in presentation. continue current mgmt. 05/29: no change, continue. 05/30: no change, continue. 05/31: FSBS trending better, recently mostly below 200. otherwise no changes. continue current mgmt. 06/01: FSBS trending better, recently mostly below 200. otherwise no changes. continue current mgmt. daughter has not returned any of 's calls for the past week. 06/02: decrease glargine from 10 units daily to 8 units daily as pt's FSBS have started to come under 100. decrease prednisone this monday and the following monday (orders written). pending placement and getting off of insulin. Reason for continued inpatient stay Substantial Risk for: inability to function and rapid decompensation Time Spent With Patient Time: Total time managing care of this patient today ____ minutes.
[2023-06-02 17:00] LABS: Glucose, Whole Blood 193 mg/dL (60-115)
[2023-06-02 21:01] VITALS: BP 112/55; PULSE 66; RESP 16; TEMP 36.4; O2SAT 96
[2023-06-02 21:03] LABS: Glucose, Whole Blood 241 mg/dL (60-115)
[2023-06-02] MEDS: HaloperidoL 1 MG TABLET 4 MG PO (21:13)
[2023-06-03 08:35] LABS: Glucose, Whole Blood 104 mg/dL (60-115)
[2023-06-03 09:08] VITALS: BP 141/65; PULSE 71; RESP 18; TEMP 35.6; O2SAT 96
[2023-06-03] MEDS: Famotidine 20 MG TABLET PO (09:09)
[2023-06-03] MEDS: Atorvastatin Calcium 40 MG TABLET PO (09:09)
[2023-06-03] MEDS: Sertraline HCL 50 MG TABLET PO (09:09)
[2023-06-03] MEDS: predniSONE 10 MG TABLET PO ×2 (09:09→20:59)
[2023-06-03] MEDS: Donepezil HCl 5 MG TABLET PO (09:09)
[2023-06-03] MEDS: Empagliflozin 25 MG TABLET PO (09:09)
[2023-06-03] MEDS: Omeprazole 20 MG CAPSULE.DR PO (09:09)
[2023-06-03] MEDS: Memantine HCl 5 MG TABLET PO ×2 (09:09→20:59)
[2023-06-03] MEDS: metFORMIN HCl 1,000 MG TABLET 1000 MG PO ×2 (09:09→20:59)
[2023-06-03] MEDS: Insulin Glargine,Hum.rec.anlog 100 UNIT/ML 10 ML VIAL 8 UNIT SUBCUT (09:10)
--- NOTE | 2023-06-03 11:28 | P.PNPSI_ITS ---
Subjective Subjective Date of Service: 06/03/23 Reason For Visit: hallucinations confusion Interim History: The nursing staff reported the patient had been isolative most of the time in her renal eating well. She denies anxiety tree hallucinations and visual hallucinations but she still confused. According to the staff she is not coming out with psychotic symptoms in the afternoon like before. On interview the patient was in her bed, isolative and denies new symptoms. Mental Status Exam Mental Status Exam Patient Appearance: Appropriate Patient Orientation: Person Level of Consciousness: Awake Patient Behavior: Guarded and Passive Mood Description: Withdrawn Affect Description: Blunted Patient Cognition Impaired: Yes Ability to Follow Directions: Good Speech Pattern: Clear Hallucinations: None Delusions: Not Present Thought Process: Slowed Thinking Thought Content: positive for [place] of Content Judgement: Poor Diagnostics Vital Signs (24Hr): Vital Signs - 24 hr 06/02/23 21:01 06/03/23 09:08 Temperature 97.6 F 96.0 F L Pulse Rate 66 71 Respiratory Rate 16 18 Blood Pressure 112/55 L 141/65 H Pulse Oximetry 96 96 Oxygen Delivery Method Room Air Room Air BMI result Body Mass Index 30.0 Labs 04/08/23 09:08 05/27/23 09:36 Labs: Laboratory Results - last 48 hr 06/01/23 06/01/23 06/01/23 12:48 16:09 19:43 POC Glucose 90 121 H 233 H 06/02/23 06/02/23 06/02/23 08:09 12:56 16:56 POC Glucose 219 H 154 H 193 H 06/02/23 06/03/23 20:57 08:29 POC Glucose 241 H 104 Imaging Radiology Impressions: ITS Impressions Brain MRI 04/03/23 15:30 IMPRESSION: No acute infarct, mass lesion, intracranial hemorrhage, or evidence of hydrocephalus. Mild nonspecific T2/FLAIR hyperintensity in the cerebral white matter and danny presumably on the basis of chronic microangiopathy. Medications Medications Current Medications Acetaminophen (Acetaminophen 325 Mg Tablet) 650 mg PO Q6H PRN PRN Reason: Headache/Pain Mild Scale (1-3) Last Admin: 05/06/23 20:10 Dose: 650 mg Al Hydroxide/Mg Hydroxide (Magnesium Hydrox/Alum Hydrox 30 Ml Oral.Susp) 30 ml PO Q6H PRN PRN Reason: Heartburn/Nausea Atorvastatin Calcium (Atorvastatin Calcium 40 Mg Tablet) 40 mg PO DAILY [facility] Last Admin: 06/03/23 09:09 Dose: 40 mg Dextrose (Dextrose 50 % 25 Gm/50 Ml Syringe) 25 gm IVPUSH Q15M PRN; Protocol PRN Reason: per Hypoglycemia Standing Ord. Donepezil HCl (Donepezil Hcl 5 Mg Tablet) 5 mg PO DAILY [facility] Last Admin: 06/03/23 09:09 Dose: 5 mg Empagliflozin (Empagliflozin 25 Mg Tablet) 25 mg PO DAILY [facility] Last Admin: 06/03/23 09:09 Dose: 25 mg Famotidine (Famotidine 20 Mg Tablet) 20 mg PO DAILY [facility] Last Admin: 06/03/23 09:09 Dose: 20 mg Glucose (Glucose Gel 15 Gm Gel..Gram.) 15 gm PO Q15M PRN; Protocol PRN Reason: per Hypoglycemia Standing Ord. Haloperidol (Haloperidol 1 Mg Tablet) 4 mg PO BEDTIME [facility] Last Admin: 06/02/23 21:13 Dose: 4 mg Insulin Glargine (Insulin Glargine,Hum.Rec.Anlog 100 Unit/Ml 10 Ml Vial) 8 unit SUBCUT DAILY [facility] Last Admin: 06/03/23 09:10 Dose: 8 unit Insulin Human Lispro (Insulin Lispro 100 Unit/Ml 3 Ml Vial) 0 unit SUBCUT QIDACHS [facility]; Protocol Last Admin: 06/03/23 09:31 Dose: Not Given Magnesium Hydroxide (Milk Of Magnesia 30 Ml Oral.Susp) 30 ml PO DAILY PRN PRN Reason: Constipation Memantine (Memantine Hcl 5 Mg Tablet) 5 mg PO BID [facility] Last Admin: 06/03/23 09:09 Dose: 5 mg Metformin HCl (Metformin Hcl 1,000 Mg Tablet) 1,000 mg PO BID [facility] Last Admin: 06/03/23 09:09 Dose: 1,000 mg Olanzapine (Olanzapine 2.5 Mg Tablet) 2.5 mg PO Q4H PRN PRN Reason: anxiety/agitation Last Admin: 04/29/23 17:17 Dose: 2.5 mg Omeprazole (Omeprazole 20 Mg Capsule.Dr) 20 mg PO DAILY [facility] Last Admin: 06/03/23 09:09 Dose: 20 mg Prednisone (Prednisone 10 Mg Tablet) 10 mg PO BEDTIME [facility] Stop: 06/05/23 20:59 Last Admin: 06/02/23 21:13 Dose: 10 mg Prednisone (Prednisone 10 Mg Tablet) 10 mg PO DAILY [facility] Last Admin: 06/03/23 09:09 Dose: 10 mg Prednisone (Prednisone 5 Mg Tablet) 5 mg PO BEDTIME [facility] Stop: 06/12/23 10:28 Sertraline HCl (Sertraline Hcl 50 Mg Tablet) 50 mg PO DAILY [facility]EN Last Admin: 06/03/23 09:09 Dose: 50 mg Trazodone HCl (Trazodone Hcl 50 Mg Tablet) 50 mg PO BEDTIME MRX1 PRN PRN Reason: Insomnia Last Admin: 05/16/23 20:42 Dose: 50 mg Allergies Allergies Allergy/AdvReac Type Severity Reaction Status Date / Time No Known Allergies Allergy Verified 03/23/23 18:13 Assessment & Plan Assessment & Plan (1) Dementia: Status: Acute Code(s): F03.90 - Unspecified dementia, unspecified severity, without behavioral disturbance, psychotic disturbance, mood disturbance, and anxiety Assessment and Plan: 57 years old woman with somewhat rapidly progressing dementia or symptoms of dementia with CSF protein of 88 but otherwise no definite clue about her jimbo gnosis. I discussed the case with neurology service at [facility] and they suggested that the workup has been appropriate and thorough and it was not clear if any further investigations were needed. Also, they did not have beds available for transfer According to their experience, this level of CSF protein could be seen and degenerative disorders but could also be seen in some type of spine pathology, which we have not investigated. In any case, high CSF protein without elevation of cells and without any significant brain lesions on MRI, does not suggest malignancy or vasculitis type of pathology. At this time, after discussing the case with the neurologist in [place], my recommendation is to treat her for degenerative dementia appearing in young age. Some CSF tests are pending which may confirm this notion. PET scan can also help. On the other hand, further CSF analysis and investigations for vasculitis like brain biopsy are not warranted. As far as treatment of dementia is concerned, it is symptomatic. I would start with donepezil 5 mg daily and after a week would add memantine 5 mg twice a day. These are the 2 types of medicines available at this time. Finally, her placement could be an issue as she would not be able to live independently Plan 05/05/23 Pt with gross disorganization b sister give hx of more gradual deterioration neuro note reviewed chart reviewed start aricept some csf results pending consider pet if available ?05/07/2023: No changes to current treatment plan.? Treatment team working on complex disposition which may include instituted living in [place] 05/08 continue tx. 05/09 continue tx. 05/10:? neuro believes Dx more likely dementia at this point, consulted with [facility] neuro who informed him protein of 88 may sometimes be seen in dementia or spinal disorders and that w/u thus far here had been thorough and adequate.? plan to treat as dementia for now.? neuro rec starting donepezil and 1 week later memantine.? donepezil started 5 days ago, memantine scheduled to be started in 3 days.? 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 per review of [facility], their recommended taper for this pt's duration of therapy and daily dose is to reduce by 5 mg/day every 1-2 weeks.? as her time on steroids has been relatively short, we would proceed with the more aggressive taper.? in any event, dosing to be reduced by 5 mg/day as of today. 05/11: all labs results in, positives are for elevated CSF protein/albumin and pattern of CSF protein c/w alzheimer's dementia. continue induction on cholinesterase inhibitor, pednisone taper, work on dispo planning. 05/12: no change in presentation. discharge planning aggressively underway. start memantine tomorrow. currently planning for discharge monday. 05/13: memantine started today. decrease zyprexa at HS from 5 mg to 2.5 mg in attempt to decrease overall sedation. plan to decrease prednisone by 5 mg/day on monday. 05/14: continue current mgmt. decrease prednisone by 5 mg/day as of tomorrow m avi. dispo planning underway. 05/15: continue current mgmt. family meeting tomorrow with pt's daughter and HCP, bakari. 05/16: family mtg held. SW looking into rest homes, family to pursue involving extended family for a place for pt to stay. FSBS elevated, prednisone taper ongoing, SSI being used. 05/17: no change in mgmt. met with [facility]CKERMAN and [facility] bunch to discuss dispo options. rest home is not an option, STR does not appear to be likely to be an option but is being pursued today. awaiting word from daughter on option to DC to brother's home. will need nursing home care daily for DM mgmt until no longer requiring SSI, however. per report, her insurance does not cover VNA. 05/18: stable presentation. requesting new MoCA and ACLS as pt's cognition seems to have improved slightly since treatment for AD began. 05/19: stable presentation. daughter working on dispo options. ACLS unchanged from prior. T/C transfer to [facility] today. continue prednisone taper monday. 05/20 Less agitated. No med changes today. 05/21: prednisone taper in process, consider transfer to [facility] 05/22/2023 Hospitalist consult regarding hyperglycemia consider stopping olanzapine and changing to antipsychotic if needed lowered tendency to increase blood sugars. Discharge planning AFTER DISCUSSION WITH MARGARITA PEREZ THE PATIENT WAS PLACED LONG-ACTING INSULIN GLARGINE 05/23: FSBS trending down. continue current mgmt. T/C change to typical anti- psychotic. case d/w Dr. Trotter. 05/24: stable. DCed zyprexa and started haldol 2 mg QHS. completed review with insurance company . continue [facility]. 05/25: increase HS haldol to 4 mg, otherwise continue current mgmt. stable presentation. 05/26: no change in presentation. continue current mgmt. 05/27: no change in presentation. continue current mgmt. 05/28: no change in presentation. continue current mgmt. 05/29: no change, continue. 05/30: no change, continue. 05/31: FSBS trending better, recently mostly below 200. otherwise no changes. continue current mgmt. 06/01: FSBS trending better, recently mostly below 200. otherwise no changes. continue current mgmt. daughter has not returned any of 's calls for the past week. 06/02: decrease glargine from 10 units daily to 8 units daily as pt's FSBS have started to come under 100. decrease prednisone this monday and the following monday (orders written). pending placement and getting off of insulin. 06/03 keep same treatment Reason for continued inpatient stay Substantial Risk for: inability to function, rapid decompensation and med/psych decompensation Time Spent With Patient Time: Total time managing care of this patient today __20__ minutes.
[2023-06-03 12:27] LABS: Glucose, Whole Blood 167 mg/dL (60-115)
[2023-06-03] MEDS: Insulin Lispro 100 UNIT/ML 3 ML VIAL SUBCUT ×3 (12:48→21:00)
[2023-06-03 17:48] LABS: Glucose, Whole Blood 181 mg/dL (60-115)
[2023-06-03 20:30] VITALS: BP 136/65; PULSE 60; RESP 16; TEMP 36.3; O2SAT 97
[2023-06-03 20:48] LABS: Glucose, Whole Blood 210 mg/dL (60-115)
[2023-06-03] MEDS: HaloperidoL 1 MG TABLET 4 MG PO (21:00)
[2023-06-04 07:49] LABS: Creatinine Clr Calc Pharmacy 86.1; Estimated Glomerular Filt Rate > 60
[2023-06-04] MEDS: Insulin Glargine,Hum.rec.anlog 100 UNIT/ML 10 ML VIAL 8 UNIT SUBCUT (08:42)
[2023-06-04 08:54] LABS: Glucose, Whole Blood 138 mg/dL (60-115)
[2023-06-04 09:06] VITALS: BP 119/69; PULSE 68; RESP 18; TEMP 36.1; O2SAT 97
[2023-06-04] MEDS: Memantine HCl 5 MG TABLET PO ×2 (09:07→21:28)
[2023-06-04] MEDS: Donepezil HCl 5 MG TABLET PO (09:07)
[2023-06-04] MEDS: Omeprazole 20 MG CAPSULE.DR PO (09:07)
[2023-06-04] MEDS: Empagliflozin 25 MG TABLET PO (09:07)
[2023-06-04] MEDS: Famotidine 20 MG TABLET PO (09:07)
[2023-06-04] MEDS: Sertraline HCL 50 MG TABLET PO (09:07)
[2023-06-04] MEDS: Atorvastatin Calcium 40 MG TABLET PO (09:07)
[2023-06-04] MEDS: predniSONE 10 MG TABLET PO ×2 (09:08→21:28)
[2023-06-04] MEDS: metFORMIN HCl 1,000 MG TABLET 1000 MG PO ×2 (09:08→21:28)
--- NOTE | 2023-06-04 10:39 | P.PNPSI_ITS ---
Subjective Subjective Date of Service: 06/04/23 Reason For Visit: hallucinations confusion Interim History: The nursing staff reported the patient has been isolative most of the time in her room, compliant with treatment. On interview the patient denies new symptoms isolative oriented to self only. Her for fasting blood sugars have been in the normal range. Waiting for placement. Mental Status Exam Mental Status Exam Patient Appearance: Well Grooomed Patient Orientation: Person Level of Consciousness: Awake Patient Behavior: Passive Mood Description: Calm Affect Description: Constricted Patient Cognition Impaired: Yes Ability to Follow Directions: Fair Speech Pattern: Clear Hallucinations: None Delusions: Not Present Thought Process: Evasive and Slowed Thinking Thought Content: positive for [place] Judgement: Poor Diagnostics Vital Signs (24Hr): Vital Signs - 24 hr 06/03/23 20:30 06/04/23 09:06 Temperature 97.4 F 97.0 F Pulse Rate 60 68 Respiratory Rate 16 18 Blood Pressure 136/65 119/69 Pulse Oximetry 97 97 Oxygen Delivery Method Room Air Room Air BMI result Body Mass Index 30.0 Labs 04/08/23 09:08 06/04/23 07:23 Labs: Laboratory Results - last 48 hr 06/02/23 06/02/23 06/02/23 12:56 16:56 20:57 Creatinine Estim Creat Clear Calc Estimated GFR POC Glucose 154 H 193 H 241 H 06/03/23 06/03/23 06/03/23 08:29 12:23 17:44 Creatinine Estim Creat Clear Calc Estimated GFR POC Glucose 104 167 H 181 H 06/03/23 06/04/23 06/04/23 20:44 07:23 08:41 Creatinine 0.68 Estim Creat Clear Calc 86.1 Estimated GFR > 60 POC Glucose 210 H 138 H Imaging Radiology Impressions: ITS Impressions Brain MRI 04/03/23 15:30 IMPRESSION: No acute infarct, mass lesion, intracranial hemorrhage, or evidence of hydrocephalus. Mild nonspecific T2/FLAIR hyperintensity in the cerebral white matter and danny presumably on the basis of chronic microangiopathy. Medications Medications Current Medications Acetaminophen (Acetaminophen 325 Mg Tablet) 650 mg PO Q6H PRN PRN Reason: Headache/Pain Mild Scale (1-3) Last Admin: 05/06/23 20:10 Dose: 650 mg Al Hydroxide/Mg Hydroxide (Magnesium Hydrox/Alum Hydrox 30 Ml Oral.Susp) 30 ml PO Q6H PRN PRN Reason: Heartburn/Nausea Atorvastatin Calcium (Atorvastatin Calcium 40 Mg Tablet) 40 mg PO DAILY [facility] Last Admin: 06/04/23 09:07 Dose: 40 mg Dextrose (Dextrose 50 % 25 Gm/50 Ml Syringe) 25 gm IVPUSH Q15M PRN; Protocol PRN Reason: per Hypoglycemia Standing Ord. Donepezil HCl (Donepezil Hcl 5 Mg Tablet) 5 mg PO DAILY [facility] Last Admin: 06/04/23 09:07 Dose: 5 mg Empagliflozin (Empagliflozin 25 Mg Tablet) 25 mg PO DAILY [facility] Last Admin: 06/04/23 09:07 Dose: 25 mg Famotidine (Famotidine 20 Mg Tablet) 20 mg PO DAILY [facility] Last Admin: 06/04/23 09:07 Dose: 20 mg Glucose (Glucose Gel 15 Gm Gel..Gram.) 15 gm PO Q15M PRN; Protocol PRN Reason: per Hypoglycemia Standing Ord. Haloperidol (Haloperidol 1 Mg Tablet) 4 mg PO BEDTIME [facility] Last Admin: 06/03/23 21:00 Dose: 4 mg Insulin Glargine (Insulin Glargine,Hum.Rec.Anlog 100 Unit/Ml 10 Ml Vial) 8 unit SUBCUT DAILY [facility] Last Admin: 06/04/23 08:42 Dose: 8 unit Insulin Human Lispro (Insulin Lispro 100 Unit/Ml 3 Ml Vial) 0 unit SUBCUT QIDACHS [facility]; Protocol Last Admin: 06/04/23 09:10 Dose: Not Given Magnesium Hydroxide (Milk Of Magnesia 30 Ml Oral.Susp) 30 ml PO DAILY PRN PRN Reason: Constipation Memantine (Memantine Hcl 5 Mg Tablet) 5 mg PO BID [facility] Last Admin: 06/04/23 09:07 Dose: 5 mg Metformin HCl (Metformin Hcl 1,000 Mg Tablet) 1,000 mg PO BID [facility] Last Admin: 06/04/23 09:08 Dose: 1,000 mg Olanzapine (Olanzapine 2.5 Mg Tablet) 2.5 mg PO Q4H PRN PRN Reason: anxiety/agitation Last Admin: 04/29/23 17:17 Dose: 2.5 mg Omeprazole (Omeprazole 20 Mg Capsule.Dr) 20 mg PO DAILY [facility] Last Admin: 06/04/23 09:07 Dose: 20 mg Prednisone (Prednisone 10 Mg Tablet) 10 mg PO BEDTIME [facility] Stop: 06/05/23 20:59 Last Admin: 06/03/23 20:59 Dose: 10 mg Prednisone (Prednisone 10 Mg Tablet) 10 mg PO DAILY [facility] Last Admin: 06/04/23 09:08 Dose: 10 mg Prednisone (Prednisone 5 Mg Tablet) 5 mg PO BEDTIME [facility] Stop: 06/12/23 10:28 Sertraline HCl (Sertraline Hcl 50 Mg Tablet) 50 mg PO DAILY [facility] Last Admin: 06/04/23 09:07 Dose: 50 mg Trazodone HCl (Trazodone Hcl 50 Mg Tablet) 50 mg PO BEDTIME MRX1 PRN PRN Reason: Insomnia Last Admin: 05/16/23 20:42 Dose: 50 mg Allergies Allergies Allergy/AdvReac Type Severity Reaction Status Date / Time No Known Allergies Allergy Verified 03/23/23 18:13 Assessment & Plan Assessment & Plan (1) Dementia: Status: Acute Code(s): F03.90 - Unspecified dementia, unspecified severity, without behavioral disturbance, psychotic disturbance, mood disturbance, and anxiety Assessment and Plan: 57 years old woman with somewhat rapidly progressing dementia or symptoms of dementia with CSF protein of 88 but otherwise no definite clue about her diagnosis. I discussed the case with neurology service at [facility] and they suggested that the workup has been appropriate and thorough and it was not clear if any further investigations were needed. Also, they did not have beds available for transfer According to their experience, this level of CSF protein could be seen and degenerative disorders but could also be seen in some type of spine pathology, which we have not investigated. In any case, high CSF protein without elevation of cells and without any significant brain lesions on MRI, does not suggest malignancy or vasculitis type of pathology. At this time, after discussing the case with the neurologist in [place], my recommendation is to treat her for degenerative dementia appearing in young age. Some CSF tests are pending which may confirm this notion. PET scan can also help. On the other hand, further CSF analysis and investigations for vasculitis like brain biopsy are not warranted. As far as treatment of dementia is concerned, it is symptomatic. I would start with donepezil 5 mg daily and after a week would add memantine 5 mg twice a day. These are the 2 types of medicines available at this time. Finally, her placement could be an issue as she would not be able to live independently Plan 05/05/23 Pt with gross disorganization b sister give hx of more gradual deterioration neuro note reviewed chart reviewed start aricept some csf results pending consider pet if available ?05/07/2023: No changes to current treatment plan.? Treatment team working on complex disposition which may include instituted living in [place] 05/08 continue tx. 05/09 continue tx. 05/10:? neuro believes Dx more likely dementia at this point, consulted with [facility] who informed him protein of 88 may sometimes be seen in dementia or spinal disorders and that w/u thus far here had been thorough and adequate.? plan to treat as dementia for now.? neuro rec starting donepezil and 1 week later memantine.? donepezil started 5 days ago, memantine scheduled to be started in 3 days.? 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 per review of [facility], their recommended taper for this pt's duration of therapy and daily dose is to reduce by 5 mg/day every 1-2 weeks.? as her time on steroids has been relatively short, we would proceed with the more aggressive taper.? in any event, dosing to be reduced by 5 mg/day as of today. 05/11: all labs results in, positives are for elevated CSF protein/albumin and pattern of CSF protein c/w alzheimer's dementia. continue induction on cholinesterase inhibitor, pednisone taper, work on dispo planning. 05/12: no change in presentation. discharge planning aggressively underway. start memantine tomorrow. currently planning for discharge monday. 05/13: memantine started today. decrease zyprexa at HS from 5 mg to 2.5 mg in attempt to decrease overall sedation. plan to decrease prednisone by 5 mg/day on monday. 05/14: continue current mgmt. decrease prednisone by 5 mg/day as of tomorrow morning. dispo planning underway. 05/15: continue current mgmt. family meeting tomorrow with pt's daughter and HCP, bakari. 05/16: family mtg held. SW looking into rest homes, family to pursue involving extended family for a place for pt to stay. FSBS elevated, prednisone taper o ngoing, SSI being used. 05/17: no change in mgmt. met with [facility] ACKERMAN and [facility] bunch to discuss dispo options. rest home is not an option, STR does not appear to be likely to be an option but is being pursued today. awaiting word from daughter on option to DC to brother's home. will need [facility] care daily for DM mgmt until no longer requiring SSI, however. per report, her insurance does not cover VNA. 05/18: stable presentation. requesting new MoCA and ACLS as pt's cognition seems to have improved slightly since treatment for AD began. 05/19: stable presentation. daughter working on dispo options. ACLS unchanged from prior. T/C transfer to [facility] today. continue prednisone taper monday. 05/20 Less agitated. No med changes today. 05/21: prednisone taper in process, [facility]23 Hospitalist consult regarding hyperglycemia consider stopping olanzapine and changing to antipsychotic if needed lowered tendency to increase blood sugars. Discharge planning AFTER DISCUSSION WITH MARGARITA PEREZ THE PATIENT WAS PLACED LONG-ACTING INSULIN GLARGINE 05/23: FSBS trending down. continue current mgmt. T/C change to typical anti- psychotic. case d/w Dr. Trotter. 05/24: stable. DCed zyprexa and started haldol 2 mg QHS. completed review with insurance company . [facility]. 05/25: increase HS haldol to 4 mg, otherwise continue current mgmt. stable presentation. 05/26: no change in presentation. continue current mgmt. 05/27: no change in presentation. continue current mgmt. 05/28: no change in presentation. continue current mgmt. 05/29: no change, continue. 05/30: no change, continue. 05/31: FSBS trending better, recently mostly below 200. otherwise no changes. continue current mgmt. 06/01: FSBS trending better, recently mostly below 200. otherwise no changes. continue current mgmt. daughter has not returned any of 's calls for the past week. 06/02: decrease glargine from 10 units daily to 8 units daily as pt's FSBS have started to come under 100. decrease prednisone this monday and the following monday (orders written). pending placement and getting off of insulin. 06/03 keep same treatment. 06/04 keep same treatment Reason for continued inpatient stay Substantial Risk for: inability to function, rapid decompensation and med/psych decompensation Time Spent With Patient Time: Total time managing care of this patient today __20__ minutes.
[2023-06-04 12:28] LABS: Glucose, Whole Blood 108 mg/dL (60-115)
[2023-06-04 17:36] LABS: Glucose, Whole Blood 188 mg/dL (60-115)
[2023-06-04] MEDS: Insulin Lispro 100 UNIT/ML 3 ML VIAL SUBCUT ×2 (17:41→21:26)
[2023-06-04 20:20] VITALS: BP 134/65; PULSE 64; RESP 18; TEMP 36.7; O2SAT 94
[2023-06-04 20:27] LABS: Glucose, Whole Blood 217 mg/dL (60-115)
[2023-06-04] MEDS: HaloperidoL 1 MG TABLET 4 MG PO (21:27)
[2023-06-05 06:00] VITALS: BP 109/56; PULSE 68; RESP 16; TEMP 36.4; O2SAT 97
[2023-06-05 08:45] LABS: Glucose, Whole Blood 116 mg/dL (60-115)
[2023-06-05] MEDS: Donepezil HCl 5 MG TABLET PO (09:03)
[2023-06-05] MEDS: Atorvastatin Calcium 40 MG TABLET PO (09:03)
[2023-06-05] MEDS: Sertraline HCL 50 MG TABLET PO (09:03)
[2023-06-05] MEDS: metFORMIN HCl 1,000 MG TABLET 1000 MG PO ×2 (09:03→21:31)
[2023-06-05] MEDS: Empagliflozin 25 MG TABLET PO (09:03)
[2023-06-05] MEDS: Omeprazole 20 MG CAPSULE.DR PO (09:03)
[2023-06-05] MEDS: Famotidine 20 MG TABLET PO (09:03)
[2023-06-05] MEDS: Memantine HCl 5 MG TABLET PO ×2 (09:03→21:30)
[2023-06-05] MEDS: predniSONE 10 MG TABLET PO (09:03)
[2023-06-05] MEDS: Insulin Glargine,Hum.rec.anlog 100 UNIT/ML 10 ML VIAL 8 UNIT SUBCUT (09:08)
[2023-06-05 12:42] LABS: Glucose, Whole Blood 89 mg/dL (60-115)
--- NOTE | 2023-06-05 14:26 | HO.PSYCHPN ---
Subjective Subjective Date of Service: 06/05/23 Reason For Visit: hallucinations confusion Subjective Notes: Conditional Voluntary Healthcare Proxy: Yes Medical Problems Affecting Mental Status: Yes Interim History: Patient case reviewed in treatment team chart reviewed patient seen. Patient somewhat withdrawn anxious dysphoric. To this point no clear discharge plan Medication Compliance: Yes Review of Systems Managing diabetes with insulin on sliding scale Mental Status Exam Mental Status Exam Patient Appearance: Well Grooomed Patient Orientation: Person Level of Consciousness: Awake Patient Behavior: Appropriate and Passive Mood Description: Calm Affect Description: Constricted Patient Cognition Impaired: Yes Ability to Follow Directions: Fair Speech Pattern: Clear Hallucinations: None Delusions: Not Present Thought Process: Evasive and Slowed Thinking Thought Content: positive for [place] Judgement: Poor Diagnostics Vital Signs (24Hr): Vital Signs - 24 hr 06/04/23 20:20 06/05/23 06:00 Temperature 98.0 F 97.6 F Pulse Rate 64 68 Respiratory Rate 18 16 Blood Pressure 134/65 109/56 L Pulse Oximetry 94 97 Oxygen Delivery Method Room Air Room Air BMI result Body Mass Index 30.0 Labs 04/08/23 09:08 06/04/23 07:23 Labs: Laboratory Results - last 48 hr 06/03/23 06/03/23 06/04/23 17:44 20:44 07:23 Creatinine 0.68 Estim Creat Clear Calc 86.1 Estimated GFR > 60 POC Glucose 181 H 210 H 06/04/23 06/04/23 06/04/23 08:41 12:22 17:33 Creatinine Estim Creat Clear Calc Estimated GFR POC Glucose 138 H 108 188 H 06/04/23 06/05/23 06/05/23 20:18 08:41 12:36 Creatinine Estim Creat Clear Calc Estimated GFR POC Glucose 217 H 116 H 89 Imaging Radiology Impressions: ITS Impressions Brain MRI 04/03/23 15:30 IMPRESSION: No acute infarct, mass lesion, intracranial hemorrhage, or evidence of hydrocephalus. Mild nonspecific T2/FLAIR hyperintensity in the cerebral white matter and danny presumably on the basis of chronic microangiopathy. Medications Medications Current Medications Acetaminophen (Acetaminophen 325 Mg Tablet) 650 mg PO Q6H PRN PRN Reason: Headache/Pain Mild Scale (1-3) Last Admin: 05/06/23 20:10 Dose: 650 mg Al Hydroxide/Mg Hydroxide (Magnesium Hydrox/Alum Hydrox 30 Ml Oral.Susp) 30 ml PO Q6H PRN PRN Reason: Heartburn/Nausea Atorvastatin Calcium (Atorvastatin Calcium 40 Mg Tablet) 40 mg PO DAILY ON LICENSE OF [facility] Last Admin: 06/05/23 09:03 Dose: 40 mg Dextrose (Dextrose 50 % 25 Gm/50 Ml Syringe) 25 gm IVPUSH Q15M PRN; Protocol PRN Reason: per Hypoglycemia Standing Ord. Donepezil HCl (Donepezil Hcl 5 Mg Tablet) 5 mg PO DAILY ON LICENSE OF [facility] Last Admin: 06/05/23 09:03 Dose: 5 mg Empagliflozin (Empagliflozin 25 Mg Tablet) 25 mg PO DAILY ON LICENSE OF [facility] Last Admin: 06/05/23 09:03 Dose: 25 mg Famotidine (Famotidine 20 Mg Tablet) 20 mg PO DAILY ON LICENSE OF [facility] Last Admin: 06/05/23 09:03 Dose: 20 mg Glucose (Glucose Gel 15 Gm Gel..Gram.) 15 gm PO Q15M PRN; Protocol PRN Reason: per Hypoglycemia Standing Ord. Haloperidol (Haloperidol 1 Mg Tablet) 4 mg PO BEDTIME ON LICENSE OF [facility] Last Admin: 06/04/23 21:27 Dose: 4 mg Insulin Glargine (Insulin Glargine,Hum.Rec.Anlog 100 Unit/Ml 10 Ml Vial) 8 unit SUBCUT DAILY ON LICENSE OF [facility] Last Admin: 06/05/23 09:08 Dose: 8 unit Insulin Human Lispro (Insulin Lispro 100 Unit/Ml 3 Ml Vial) 0 unit SUBCUT QIDACHS ON LICENSE OF [facility]; Protocol Last Admin: 06/05/23 12:40 Dose: Not Given Magnesium Hydroxide (Milk Of Magnesia 30 Ml Oral.Susp) 30 ml PO DAILY PRN PRN Reason: Constipation Memantine (Memantine Hcl 5 Mg Tablet) 5 mg PO BID ON LICENSE OF [facility] Last Admin: 06/05/23 09:03 Dose: 5 mg Metformin HCl (Metformin Hcl 1,000 Mg Tablet) 1,000 mg PO BID ON LICENSE OF [facility] Last Admin: 06/05/23 09:03 Dose: 1,000 mg Olanzapine (Olanzapine 2.5 Mg Tablet) 2.5 mg PO Q4H PRN PRN Reason: anxiety/agitation Last Admin: 04/29/23 17:17 Dose: 2.5 mg Omeprazole (Omeprazole 20 Mg Capsule.Dr) 20 mg PO DAILY ON LICENSE OF [facility] Last Admin: 06/05/23 09:03 Dose: 20 mg Prednisone (Prednisone 10 Mg Tablet) 10 mg PO BEDTIME [facility] Stop: 06/05/23 20:59 Last Admin: 06/04/23 21:28 Dose: 10 mg Prednisone (Prednisone 10 Mg Tablet) 10 mg PO DAILY [facility] Last Admin: 06/05/23 09:03 Dose: 10 mg Prednisone (Prednisone 5 Mg Tablet) 5 mg PO BEDTIME [facility] Stop: 06/12/23 10:28 Last Admin: 06/05/23 12:30 Dose: Not Given Sertraline HCl (Sertraline Hcl 50 Mg Tablet) 50 mg PO DAILY [facility] Last Admin: 06/05/23 09:03 Dose: 50 mg Trazodone HCl (Trazodone Hcl 50 Mg Tablet) 50 mg PO BEDTIME MRX1 PRN PRN Reason: Insomnia Last Admin: 05/16/23 20:42 Dose: 50 mg Allergies Allergies Allergy/AdvReac Type Severity Reaction Status Date / Time No Known Allergies Allergy Verified 03/23/23 18:13 Assessment & Plan Assessment & Plan (1) Dementia: Status: Acute Code(s): F03.90 - Unspecified dementia, unspecified severity, without behavioral disturbance, psychotic disturbance, mood disturbance, and anxiety Assessment and Plan: 57 years old woman with somewhat rapidly progressing dementia or symptoms of dementia with CSF protein of 88 but otherwise no definite clue about her diagnosis. I discussed the case with neurology service at [facility] and they suggested that the workup has been appropriate and thorough and it was not clear if any further investigations were needed. Also, they did not have beds available for transfer According to their experience, this level of CSF protein could be seen and degenerative disorders but could also be seen in some type of spine pathology, which we have not investigated. In any case, high CSF protein without elevation of cells and without any significant brain lesions on MRI, does not suggest malignancy or vasculitis type of pathology. At this time, after discussing the case with the neurologist in [place], my recommendation is to treat her for degenerative dementia appearing in young age. Some CSF tests are pending which may confirm this notion. PET scan can also help. On the other hand, further CSF analysis and investigations for vasculitis like brain biopsy are not warranted. As far as treatment of dementia is concerned, it is symptomatic. I would start with donepezil 5 mg daily and after a week would add memantine 5 mg twice a day. These are the 2 types of medicines available at this time. Finally, her placement could be an issue as she would not be able to live independently Plan 05/05/23 Pt with gross disorganization b sister give hx of more gradual deterioration neuro note reviewed chart reviewed start aricept some csf results pending consider pet if available ?05/07/2023: No changes to current treatment plan.? Treatment team working on complex disposition which may include instituted living in [place] 05/08 continue tx. 05/09 continue tx. 05/10:? neuro believes Dx more likely dementia at this point, consulted with [place] neuro who informed him protein of 88 may sometimes be seen in dementia or spinal disorders and that w/u thus far here had been thorough and adequate.? plan to treat as dementia for now.? neuro rec starting donepezil and 1 week later memantine.? donepezil started 5 days ago, memantine scheduled to be started in 3 days.? 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 per review of [employer], their recommended taper for this pt's duration of therapy and daily dose is to reduce by 5 mg/day every 1-2 weeks.? as her time on steroids has been relatively short, we would proceed with the more aggressive taper.? in any event, dosing to be reduced by 5 mg/day as of today. 05/11: all labs results in, positives are for elevated CSF protein/albumin and pattern of CSF protein c/w alzheimer's dementia. continue induction on cholinesterase inhibitor, pednisone taper, work on dispo planning. 05/12: no change in presentation. discharge planning aggressively underway. start memantine tomorrow. currently planning for discharge monday. 05/13: memantine started today. decrease zyprexa at HS from 5 mg to 2.5 mg in attempt to decrease overall sedation. plan to decrease prednisone by 5 mg/day on monday. 05/14: continue current mgmt. decrease prednisone by 5 mg/day as of tomorrow morning. dispo planning underway. 05/15: continue current mgmt. family meeting tomorrow with pt's daughter and HCP, bakari. 05/16: family mtg held. SW looking into rest homes, family to pursue involving extended family for a place for pt to stay. FSBS elevated, prednisone taper ongoing, SSI being used. 05/17: no change in mgmt. met with jigna ACKERMAN and MEKA bunch to discuss dispo options. rest home is not an option, STR does not appear to be likely to be an option but is being pursued today. awaiting word from daughter on option to DC to brother's home. will need long term care daily for DM mgmt until no longer requiring SSI, however. per report, her insurance does not cover VNA. 05/18: stable presentation. requesting new MoCA and ACLS as pt's cognition seems to have improved slightly since treatment for AD began. 05/19: stable presentation. daughter working on dispo options. ACLS unchanged from prior. T/C transfer to [facility] today. continue prednisone taper monday. 05/20 Less agitated. No med changes today. 05/21: prednisone taper in process, consider transfer to [facility] 05/22/2023 Hospitalist consult regarding hyperglycemia consider stopping olanzapine and changing to antipsychotic if needed lowered tendency to increase blood sugars. Discharge planning AFTER DISCUSSION WITH MARGARITA PEREZ THE PATIENT WAS PLACED LONG-ACTING INSULIN GLARGINE 05/23: FSBS trending down. continue current mgmt. T/C change to typical anti-psychotic. case d/w Dr. Trotter. 05/24: stable. DCed zyprexa and started haldol 2 mg QHS. completed review with insurance company . continue to seek placement at [facility]. 05/25: increase HS haldol to 4 mg, otherwise continue current mgmt. stable presentation. 05/26: no change in presentation. continue current mgmt. 05/27: no change in presentation. continue current mgmt. 05/28: no change in presentation. continue current mgmt. 05/29: no change, continue. 05/30: no change, continue. 05/31: FSBS trending better, recently mostly below 200. otherwise no changes. continue current mgmt. 06/01: FSBS trending better, recently mostly below 200. otherwise no changes. continue current mgmt. daughter has not returned any of MEKA's calls for the past week. 06/02: decrease glargine from 10 units daily to 8 units daily as pt's FSBS have started to come under 100. decrease prednisone this monday and the following monday (orders written). pending placement and getting off of insulin. 06/03 keep same treatment. 06/04 keep same treatment 06/05/23 Pt seen cont tx plan Reason for continued inpatient stay Substantial Risk for: inability to function and rapid decompensation Time Spent With Patient Time: Total time managing care of this patient today ____ minutes.
[2023-06-05 17:47] LABS: Glucose, Whole Blood 173 mg/dL (60-115)
[2023-06-05] MEDS: Insulin Lispro 100 UNIT/ML 3 ML VIAL SUBCUT ×2 (17:55→21:30)
[2023-06-05 18:00] VITALS: BP 128/67; PULSE 60; RESP 18; TEMP 36.3; O2SAT 97
[2023-06-05 21:09] LABS: Glucose, Whole Blood 249 mg/dL (60-115)
[2023-06-05] MEDS: HaloperidoL 1 MG TABLET 4 MG PO (21:30)
[2023-06-05] MEDS: predniSONE 5 MG TABLET PO (21:31)
[2023-06-06 08:45] VITALS: BP 107/55; PULSE 59; RESP 16; TEMP 36.4; O2SAT 96
[2023-06-06 08:49] LABS: Glucose, Whole Blood 87 mg/dL (60-115)
[2023-06-06] MEDS: Atorvastatin Calcium 40 MG TABLET PO (08:55)
[2023-06-06] MEDS: Empagliflozin 25 MG TABLET PO (08:55)
[2023-06-06] MEDS: Omeprazole 20 MG CAPSULE.DR PO (08:55)
[2023-06-06] MEDS: metFORMIN HCl 1,000 MG TABLET 1000 MG PO ×2 (08:55→21:26)
[2023-06-06] MEDS: Insulin Glargine,Hum.rec.anlog 100 UNIT/ML 10 ML VIAL 8 UNIT SUBCUT (08:55)
[2023-06-06] MEDS: Memantine HCl 5 MG TABLET PO ×2 (08:55→21:26)
[2023-06-06] MEDS: Donepezil HCl 5 MG TABLET PO (08:56)
[2023-06-06] MEDS: predniSONE 10 MG TABLET PO (08:56)
[2023-06-06] MEDS: Famotidine 20 MG TABLET PO (08:56)
[2023-06-06] MEDS: Sertraline HCL 50 MG TABLET PO (08:56)
[2023-06-06 12:39] LABS: Glucose, Whole Blood 154 mg/dL (60-115)
[2023-06-06] MEDS: Insulin Lispro 100 UNIT/ML 3 ML VIAL SUBCUT ×3 (12:43→21:29)
--- NOTE | 2023-06-06 15:10 | PC.NURSE ---
Report given to S1 STELLA Soliman. Jessy was brought to S1 in w/c with belongings and chart by this RN at 06/06/23 at 1540.
--- NOTE | 2023-06-06 16:22 | P.PNPSI_ITS ---
Subjective Subjective Date of Service: 06/06/23 Reason For Visit: hallucinations confusion Subjective Notes: Conditional Voluntary Healthcare Proxy: Yes Interim History: Patient remains on prednisone taper has insulin coverage. Some dysphoria and anxiety regarding seeing people be discharged. At other times not aware of where she is what is happening to her. Plan for transfer to [facility] which has more structure Medication Compliance: Yes Mental Status Exam Mental Status Exam Patient Appearance: Well Grooomed and Appropriate Patient Orientation: Person and Situation Level of Consciousness: Awake and Appropriate Patient Behavior: Guarded and Passive Mood Description: Withdrawn Affect Description: Constricted Patient Cognition Impaired: Yes Ability to Follow Directions: Good Speech Pattern: Clear Hallucinations: None Delusions: Not Present Thought Process: Distracted and Slowed Thinking Thought Content: positive for [place], positive for Poverty of Content and positive for Thought Blocking Judgement: Fair Diagnostics Vital Signs (24Hr): Vital Signs - 24 hr 06/05/23 18:00 06/06/23 08:45 Temperature 97.3 F 97.6 F Pulse Rate 60 59 Respiratory Rate 18 16 Blood Pressure 128/67 107/55 L Pulse Oximetry 97 96 Oxygen Delivery Method Room Air Room Air BMI result Body Mass Index 30.0 Labs 04/08/23 09:08 06/04/23 07:23 Labs: Laboratory Results - last 48 hr 06/04/23 06/04/23 06/05/23 17:33 20:18 08:41 POC Glucose 188 H 217 H 116 H 06/05/23 06/05/23 06/05/23 12:36 17:43 21:00 POC Glucose 89 173 H 249 H 06/06/23 06/06/23 08:43 12:35 POC Glucose 87 154 H Imaging Radiology Impressions: ITS Impressions Brain MRI 04/03/23 15:30 IMPRESSION: No acute infarct, mass lesion, intracranial hemorrhage, or evidence of hydrocephalus. Mild nonspecific T2/FLAIR hyperintensity in the cerebral white matter and danny presumably on the basis of chronic microangiopathy. Medications Medications Current Medications Acetaminophen (Acetaminophen 325 Mg Tablet) 650 mg PO Q6H PRN PRN Reason: Headache/Pain Mild Scale (1-3) Last Admin: 05/06/23 20:10 Dose: 650 mg Al Hydroxide/Mg Hydroxide (Magnesium Hydrox/Alum Hydrox 30 Ml Oral.Susp) 30 ml PO Q6H PRN PRN Reason: Heartburn/Nausea Atorvastatin Calcium (Atorvastatin Calcium 40 Mg Tablet) 40 mg PO DAILY [facility] Last Admin: 06/06/23 08:55 Dose: 40 mg Dextrose (Dextrose 50 % 25 Gm/50 Ml Syringe) 25 gm IVPUSH Q15M PRN; Protocol PRN Reason: per Hypoglycemia Standing Ord. Donepezil HCl (Donepezil Hcl 5 Mg Tablet) 5 mg PO DAILY [facility] Last Admin: 06/06/23 08:56 Dose: 5 mg Empagliflozin (Empagliflozin 25 Mg Tablet) 25 mg PO DAILY [facility] Last Admin: 06/06/23 08:55 Dose: 25 mg Famotidine (Famotidine 20 Mg Tablet) 20 mg PO DAILY [facility] Last Admin: 06/06/23 08:56 Dose: 20 mg Glucose (Glucose Gel 15 Gm Gel..Gram.) 15 gm PO Q15M PRN; Protocol PRN Reason: per Hypoglycemia Standing Ord. Haloperidol (Haloperidol 1 Mg Tablet) 4 mg PO BEDTIME [facility] Last Admin: 06/05/23 21:30 Dose: 4 mg Insulin Glargine (Insulin Glargine,Hum.Rec.Anlog 100 Unit/Ml 10 Ml Vial) 8 unit SUBCUT DAILY [facility] Last Admin: 06/06/23 08:55 Dose: 8 unit Insulin Human Lispro (Insulin Lispro 100 Unit/Ml 3 Ml Vial) 0 unit SUBCUT QIDACHS [facility]; Protocol Last Admin: 06/06/23 12:43 Dose: 2 unit Magnesium Hydroxide (Milk Of Magnesia 30 Ml Oral.Susp) 30 ml PO DAILY PRN PRN Reason: Constipation Memantine (Memantine Hcl 5 Mg Tablet) 5 mg PO BID [facility] Last Admin: 06/06/23 08:55 Dose: 5 mg Metformin HCl (Metformin Hcl 1,000 Mg Tablet) 1,000 mg PO BID [facility] Last Admin: 06/06/23 08:55 Dose: 1,000 mg Olanzapine (Olanzapine 2.5 Mg Tablet) 2.5 mg PO Q4H PRN PRN Reason: anxiety/agitation Last Admin: 04/29/23 17:17 Dose: 2.5 mg Omeprazole (Omeprazole 20 Mg Capsule.Dr) 20 mg PO DAILY [facility] Last Admin: 06/06/23 08:55 Dose: 20 mg Prednisone (Prednisone 10 Mg Tablet) 10 mg PO DAILY [facility] Last Admin: 06/06/23 08:56 Dose: 10 mg Prednisone (Prednisone 5 Mg Tablet) 5 mg PO BEDTIME [facility] Stop: 06/12/23 10:28 Last Admin: 06/05/23 21:31 Dose: 5 mg Sertraline HCl (Sertraline Hcl 50 Mg Tablet) 50 mg PO DAILY [facility] Last Admin: 06/06/23 08:56 Dose: 50 mg Trazodone HCl (Trazodone Hcl 50 Mg Tablet) 50 mg PO BEDTIME MRX1 PRN PRN Reason: Insomnia Last Admin: 05/16/23 20:42 Dose: 50 mg Allergies Allergies Allergy/AdvReac Type Severity Reaction Status Date / Time No Known Allergies Allergy Verified 03/23/23 18:13 Assessment & Plan Assessment & Plan (1) Dementia: Status: Acute Code(s): F03.90 - Unspecified dementia, unspecified severity, without behavioral disturbance, psychotic disturbance, mood disturbance, and anxiety Assessment and Plan: 57 years old woman with somewhat rapidly progressing dementia or symptoms of dementia with CSF protein of 88 but otherwise no definite clue about her diagnosis. I discussed the case with neurology service at [facility] and they suggested that the workup has been appropriate and thorough and it was not clear if any further investigations were needed. Also, they did not have beds available for transfer According to their experience, this level of CSF protein could be seen and degenerative disorders but could also be seen in some type of spine pathology, which we have not investigated. In any case, high CSF protein without elevation of cells and without any significant brain lesions on MRI, does not suggest malignancy or vasculitis type of pathology. At this time, aft er discussing the case with the neurologist in [place], my recommendation is to treat her for degenerative dementia appearing in young age. Some CSF tests are pending which may confirm this notion. PET scan can also help. On the other hand, further CSF analysis and investigations for vasculitis like brain biopsy are not warranted. As far as treatment of dementia is concerned, it is symptomatic. I would start with donepezil 5 mg daily and after a week would add memantine 5 mg twice a day. These are the 2 types of medicines available at this time. Finally, her placement could be an issue as she would not be able to live independently Plan 05/05/23 Pt with gross disorganization b sister give hx of more gradual deterioration neuro note reviewed chart reviewed start aricept some csf results pending consider pet if available ?05/07/2023: No changes to current treatment plan.? Treatment team working on complex disposition which may include instituted living in [place] 05/08 continue tx. 05/09 continue tx. 05/10:? neuro believes Dx more likely dementia at this point, consulted with [place] neuro who informed him protein of 88 may sometimes be seen in dementia or spinal disorders and that w/u thus far here had been thorough and adequate.? plan to treat as dementia for now.? neuro rec starting donepezil and 1 week later memantine.? donepezil started 5 days ago, memantine scheduled to be started in 3 days.? 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 per review of [email or web address], their recommended taper for this pt's duration of therapy and daily dose is to reduce by 5 mg/day every 1-2 weeks.? as her time on steroids has been relatively short, we would proceed with the more aggressive taper.? in any event, dosing to be reduced by 5 mg/day as of today. 05/11: all labs results in, positives are for elevated CSF protein/albumin and pattern of CSF protein c/w alzheimer's dementia. continue induction on cholinesterase inhibitor, pednisone taper, work on dispo planning. 05/12: no change in presentation. discharge planning aggressively underway. start memantine tomorrow. currently planning for discharge monday. 05/13: memantine started today. decrease zyprexa at HS from 5 mg to 2.5 mg in attempt to decrease overall sedation. plan to decrease prednisone by 5 mg/day on monday. 05/14: continue current mgmt. decrease prednisone by 5 mg/day as of tomorrow morning. dispo planning underway. 05/15: continue current mgmt. family meeting tomorrow with pt's daughter and HCP, bakari. 05/16: family mtg held. SW looking into rest homes, family to pursue involving extended family for a place for pt to stay. FSBS elevated, prednisone taper ongoing, SSI being used. 05/17: no change in mgmt. met with [facility] and [facility]KA bunch to discuss dispo options. rest home is not an option, STR does not appear to be likely to be an option but is being pursued today. awaiting word from daughter on option to DC to brother's home. will need [facility] care daily for DM mgmt until no longer requiring SSI, however. per report, her insurance does not cover VNA. 05/18: stable presentation. requesting new MoCA and ACLS as pt's cognition seems to have improved slightly since treatment for AD began. 05/19: stable presentation. daughter working on dispo options. ACLS unchanged from prior. T/C transfer to [facility] today. continue prednisone taper monday. 05/20 Less agitated. No med changes today. 05/21: prednisone taper in process, consider transfer to [facility] 05/22/2023 Hospitalist consult regarding hyperglycemia consider stopping olanzapine and changing to antipsychotic if needed lowered tendency to increase blood sugars. Discharge planning AFTER DISCUSSION WITH MARGARITA PEREZ THE PATIENT WAS PLACED LONG-ACTING INSULIN GLARGINE 05/23: FSBS trending down. continue current mgmt. T/C change to typical anti- psychotic. case d/w Dr. Trotter. 05/24: stable. DCed zyprexa and started haldol 2 mg QHS. completed review with insurance company . continue [facility] at [facility]. 05/25: increase HS haldol to 4 mg, otherwise continue current mgmt. stable presentation. 05/26: no change in presentation. continue current mgmt. 05/27: no change in presentation. continue current mgmt. 05/28: no change in presentation. continue current mgmt. 05/29: no change, continue. 05/30: no change, continue. 05/31: FSBS trending better, recently mostly below 200. otherwise no changes. continue current mgmt. 06/01: FSBS trending better, recently mostly below 200. otherwise no changes. continue current mgmt. daughter has not returned any of 's calls for the past week. 06/02: decrease glargine from 10 units daily to 8 units daily as pt's FSBS have started to come under 100. decrease prednisone this monday and the following monday (orders written). pending placement and getting off of insulin. 06/03 keep same treatment. 06/04 keep same treatment 06/05/23 Pt seen cont tx plan 06/06/2023 Consider increase [facility] transfer to [facility] for more supervision and structured care. Discharge planning would benefit from eventual locked assisted living if possible case reviewed extensively with social Work there has been difficulty coordinating with healthcare proxy Reason for continued inpatient stay Substantial Risk for: inability to function, rapid decompensation and med/psych decompensation Time Spent With Patient Time: Total time managing care of this patient today ____ minutes.
[2023-06-06 16:42] LABS: Glucose, Whole Blood 192 mg/dL (60-115)
--- NOTE | 2023-06-06 17:08 | PC.ADMIT ---
Patient transferred today from M3 via wheelchair to room 181-1 at 1547. 1630 blood sugar 192 with Lispro 2 units given sub q for coverage. Patient quiet and cooperative, oriented to person and place only.
--- NOTE | 2023-06-06 18:30 | PC.NURSE ---
Patient ate 90% of supper and drank 480 cc with supper.
[2023-06-06 19:00] VITALS: BP 110/61; PULSE 78; RESP 18; TEMP 36.8; O2SAT 95
[2023-06-06 20:33] LABS: Glucose, Whole Blood 176 mg/dL (60-115)
[2023-06-06] MEDS: traZODone HCL 50 MG TABLET PO (21:26)
[2023-06-06] MEDS: HaloperidoL 1 MG TABLET 4 MG PO (21:26)
[2023-06-06] MEDS: predniSONE 5 MG TABLET PO (21:26)
[2023-06-07 07:46] LABS: Glucose, Whole Blood 136 mg/dL (60-115)
[2023-06-07 08:23] VITALS: BP 122/64; PULSE 64; RESP 18; TEMP 36.4; O2SAT 97
[2023-06-07] MEDS: Memantine HCl 5 MG TABLET PO ×2 (08:43→20:18)
[2023-06-07] MEDS: Atorvastatin Calcium 40 MG TABLET PO (08:43)
[2023-06-07] MEDS: metFORMIN HCl 1,000 MG TABLET 1000 MG PO ×2 (08:43→20:18)
[2023-06-07] MEDS: Omeprazole 20 MG CAPSULE.DR PO (08:43)
[2023-06-07] MEDS: Empagliflozin 25 MG TABLET PO (08:44)
[2023-06-07] MEDS: Donepezil HCl 5 MG TABLET PO (08:44)
[2023-06-07] MEDS: Sertraline HCL 50 MG TABLET PO (08:44)
[2023-06-07] MEDS: Famotidine 20 MG TABLET PO (08:44)
[2023-06-07] MEDS: Insulin Glargine,Hum.rec.anlog 100 UNIT/ML 10 ML VIAL 8 UNIT SUBCUT (08:44)
[2023-06-07] MEDS: predniSONE 10 MG TABLET PO (08:44)
[2023-06-07 11:42] LABS: Glucose, Whole Blood 170 mg/dL (60-115)
[2023-06-07] MEDS: Insulin Lispro 100 UNIT/ML 3 ML VIAL SUBCUT ×3 (11:43→21:16)
--- NOTE | 2023-06-07 13:17 | HO.PSYCHPN ---
Subjective Subjective Date of Service: 06/07/23 Reason For Visit: hallucinations confusion Subjective Notes: Conditional Voluntary Interim History: The nursing staff reported the patient was transferred yesterday from . She remains quiet and cooperative she had been out for dinner but she remains most of the time isolative in her room. She states that she feels safe in this unit. She has been independent in her activities of daily life. The social science manager reported that she had been referred to [facility] and waiting for from the financial clearance. On interview the patient remains pleasantly confused. Mental Status Exam Mental Status Exam Patient Appearance: Appropriate Patient Orientation: Person and Situation Level of Consciousness: Awake Patient Behavior: Guarded and Passive Mood Description: Withdrawn Affect Description: Constricted Patient Cognition Impaired: Yes Ability to Follow Directions: Good Speech Pattern: Appropriate Hallucinations: None Delusions: Not Present Thought Process: Linear Thought Content: positive for Circumstantial Judgement: Fair Diagnostics Vital Signs (24Hr): Vital Signs - 24 hr 06/06/23 19:00 06/07/23 08:23 Temperature 98.2 F 97.6 F Pulse Rate 78 64 Respiratory Rate 18 18 Blood Pressure 110/61 122/64 Pulse Oximetry 95 97 Oxygen Delivery Method Room Air Room Air BMI result Body Mass Index 30.0 Labs 04/08/23 09:08 06/04/23 07:23 Labs: Laboratory Results - last 48 hr 06/05/23 06/05/23 06/06/23 17:43 21:00 08:43 POC Glucose 173 H 249 H 87 06/06/23 06/06/23 06/06/23 12:35 16:30 20:23 POC Glucose 154 H 192 H 176 H 06/07/23 06/07/23 07:38 11:34 POC Glucose 136 H 170 H Imaging Radiology Impressions: ITS Impressions Brain MRI 04/03/23 15:30 IMPRESSION: No acute infarct, mass lesion, intracranial hemorrhage, or evidence of hydrocephalus. Mild nonspecific T2/FLAIR hyperintensity in the cerebral white matter and danny presumably on the basis of chronic microangiopathy. Medications Medications Current Medications Acetaminophen (Acetaminophen 325 Mg Tablet) 650 mg PO Q6H PRN PRN Reason: Headache/Pain Mild Scale (1-3) Last Admin: 05/06/23 20:10 Dose: 650 mg Al Hydroxide/Mg Hydroxide (Magnesium Hydrox/Alum Hydrox 30 Ml Oral.Susp) 30 ml PO Q6H PRN PRN Reason: Heartburn/Nausea Atorvastatin Calcium (Atorvastatin Calcium 40 Mg Tablet) 40 mg PO DAILY [facility] Last Admin: 06/07/23 08:43 Dose: 40 mg Dextrose (Dextrose 50 % 25 Gm/50 Ml Syringe) 25 gm IVPUSH Q15M PRN; Protocol PRN Reason: per Hypoglycemia Standing Ord. Donepezil HCl (Donepezil Hcl 10 Mg Tablet) 10 mg PO BEDTIME [facility] Empagliflozin (Empagliflozin 25 Mg Tablet) 25 mg PO DAILY [facility] Last Admin: 06/07/23 08:44 Dose: 25 mg Famotidine (Famotidine 20 Mg Tablet) 20 mg PO DAILY [facility] Last Admin: 06/07/23 08:44 Dose: 20 mg Glucose (Glucose Gel 15 Gm Gel..Gram.) 15 gm PO Q15M PRN; Protocol PRN Reason: per Hypoglycemia Standing Ord. Haloperidol (Haloperidol 1 Mg Tablet) 4 mg PO BEDTIME [facility] Last Admin: 06/06/23 21:26 Dose: 4 mg Insulin Glargine (Insulin Glargine,Hum.Rec.Anlog 100 Unit/Ml 10 Ml Vial) 8 unit SUBCUT DAILY [facility] Last Admin: 06/07/23 08:44 Dose: 8 unit Insulin Human Lispro (Insulin Lispro 100 Unit/Ml 3 Ml Vial) 0 unit SUBCUT QIDACHS [facility]; Protocol Last Admin: 06/07/23 11:43 Dose: 2 unit Magnesium Hydroxide (Milk Of Magnesia 30 Ml Oral.Susp) 30 ml PO DAILY PRN PRN Reason: Constipation Memantine (Memantine Hcl 5 Mg Tablet) 5 mg PO BID [facility] Last Admin: 06/07/23 08:43 Dose: 5 mg Metformin HCl (Metformin Hcl 1,000 Mg Tablet) 1,000 mg PO BID [facility] Last Admin: 06/07/23 08:43 Dose: 1,000 mg Olanzapine (Olanzapine 2.5 Mg Tablet) 2.5 mg PO Q4H PRN PRN Reason: anxiety/agitation Last Admin: 04/29/23 17:17 Dose: 2.5 mg Omeprazole (Omeprazole 20 Mg Capsule.Dr) 20 mg PO DAILY [facility] Last Admin: 06/07/23 08:43 Dose: 20 mg Prednisone (Prednisone 10 Mg Tablet) 10 mg PO DAILY [facility] Last Admin: 06/07/23 08:44 Dose: 10 mg Prednisone (Prednisone 5 Mg Tablet) 5 mg PO BEDTIME [facility] Stop: 06/12/23 10:28 Last Admin: 06/06/23 21:26 Dose: 5 mg Sertraline HCl (Sertraline Hcl 50 Mg Tablet) 50 mg PO DAILY [facility] Last Admin: 06/07/23 08:44 Dose: 50 mg Trazodone HCl (Trazodone Hcl 50 Mg Tablet) 50 mg PO BEDTIME MRX1 PRN PRN Reason: Insomnia Last Admin: 06/06/23 21:26 Dose: 50 mg Allergies Allergies Allergy/AdvReac Type Severity Reaction Status Date / Time No Known Allergies Allergy Verified 03/23/23 18:13 Assessment & Plan Assessment & Plan (1) Dementia: Status: Acute Code(s): F03.90 - Unspecified dementia, unspecified severity, without behavioral disturbance, psychotic disturbance, mood disturbance, and anxiety Assessment and Plan: 57 years old woman with somewhat rapidly progressing dementia or symptoms of dementia with CSF protein of 88 but otherwise no definite clue about her diagnosis. I discussed the case with neurology service at [facility] and they suggested that the workup has been appropriate and thorough and it was not clear if any further investigations were needed. Also, they did not have beds available for transfer According to their experience, this level of CSF protein could be seen and degenerative disorders but could also be seen in some type of spine pathology, which we have not investigated. In any case, high CSF protein without elevation of cells and without any significant brain lesions on MRI, does not suggest malignancy or vasculitis type of pathology. At this time, after discussing the case with the neurologist in [place], my recommendation is to treat her for degenerative dementia appearing in young age. Some CSF tests are pending which may confirm this notion. PET scan can also help. On the other hand, further CSF analysis and investigations for vasculitis like brain biopsy are not warranted. As far as treatment of dementia is concerned, it is symptomatic. I would start with donepezil 5 mg daily and after a week would add memantine 5 mg twice a day. These are the 2 types of medicines available at this time. Finally, her placement could be an issue as she would not be able to live independently Plan 05/05/23 Pt with gross disorganization b sister give hx of more gradual deterioration neuro note reviewed chart reviewed start aricept some csf results pending consider pet if available ?05/07/2023: No changes to current treatment plan.? Treatment team working on complex disposition which may include instituted living in [place] 05/08 continue tx. 05/09 continue tx. 05/10:? neuro believes Dx more likely dementia at this point, consulted with [facility] who informed him protein of 88 may sometimes be seen in dementia or spinal disorders and that w/u thus far here had been thorough and adequate.? plan to treat as dementia for now.? neuro rec starting donepezil and 1 week later memantine.? donepezil started 5 days ago, memantine scheduled to be started in 3 days.? 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 per review of [employer], their recommended taper for this pt's duration of therapy and daily dose is to reduce by 5 mg/day every 1-2 weeks.? as her time on steroids has been relatively short, we would proceed with the more aggressive taper.? in any event, dosing to be reduced by 5 mg/day as of today. 05/11: all labs results in, positives are for elevated CSF protein/albumin and pattern of CSF protein c/w alzheimer's dementia. continue induction on cholinesterase inhibitor, pednisone taper, work on dispo planning. 05/12: no change in presentation. discharge planning aggressively underway. start memantine tomorrow. currently planning for discharge monday. 05/13: memantine started today. decrease zyprexa at HS from 5 mg to 2.5 mg in attempt to decrease overall sedation. plan to decrease prednisone by 5 mg/day on monday. 05/14: continue current mgmt. decrease prednisone by 5 mg/day as of tomorrow morning. dispo planning underway. 05/15: continue current mgmt. family meeting tomorrow with pt's daughter and HCP, bakari. 05/16: family mtg held. SW looking into rest homes, family to pursue involving extended family for a place for pt to stay. FSBS elevated, prednisone taper ongoing, SSI being used. 05/17: no change in mgmt. met with jigna ACKERMAN and MEKA bunch to discuss dispo options. rest home is not an option, STR does not appear to be likely to be an option but is being pursued today. awaiting word from daughter on option to DC to brother's home. will need prison care daily for DM mgmt until no longer requiring SSI, however. per report, her insurance does not cover VNA. 05/18: stable presentation. requesting new MoCA and ACLS as pt's cognition seems to have improved slightly since treatment for AD began. 05/19: stable presentation. daughter working on dispo options. ACLS unchanged from prior. T/C transfer to [facility] today. continue prednisone taper monday. 05/20 Less agitated. No med changes today. 05/21: prednisone taper in process, consider transfer to [facility] 05/22/2023 Hospitalist consult regarding hyperglycemia consider stopping olanzapine and changing to antipsychotic if needed lowered tendency to increase blood sugars. Discharge planning AFTER DISCUSSION WITH MARGARITA PEREZ THE PATIENT WAS PLACED LONG-ACTING INSULIN GLARGINE 05/23: FSBS trending down. continue current mgmt. T/C change to typical anti-psychotic. case d/w Dr. Trotter. 05/24: stable. DCed zyprexa and started haldol 2 mg QHS. completed review with insurance company . continue to seek placement at prison care facility. 05/25: increase HS haldol to 4 mg, otherwise continue current mgmt. stable presentation. 05/26: no change in presentation. continue current mgmt. 05/27: no change in presentation. continue current mgmt. 05/28: no change in presentation. continue current mgmt. 05/29: no change, continue. 05/30: no change, continue. 05/31: FSBS trending better, recently mostly below 200. otherwise no changes. continue current mgmt. 06/01: FSBS trending better, recently mostly below 200. otherwise no changes. continue current mgmt. daughter has not returned any of 's calls for the past week. 06/02: decrease glargine from 10 units daily to 8 units daily as pt's FSBS have started to come under 100. decrease prednisone this monday and the following monday (orders written). pending placement and getting off of insulin. 06/03 keep same treatment. 06/04 keep same treatment 06/05/23 Pt seen cont tx plan Plan 1. Continue with prednisone taper. 2. Increase Aricept up to 10 mg p.o. q.h.s. today. 3. We will keep on Namenda 5 mg p.o. b.i.d. with a goal to increase it up to 10 mg by of lost 4. 4. Discharged to prison facility when financially cleared. Reason for continued inpatient stay Substantial Risk for: inability to function, rapid decompensation and med/psych decompensation Time Spent With Patient Time: Total time managing care of this patient today __20__ minutes.
[2023-06-07 16:31] LABS: Glucose, Whole Blood 171 mg/dL (60-115)
[2023-06-07 18:00] VITALS: BP 131/62; PULSE 74; RESP 18; TEMP 36.6; O2SAT 97
[2023-06-07 19:57] LABS: Glucose, Whole Blood 236 mg/dL (60-115)
[2023-06-07] MEDS: HaloperidoL 1 MG TABLET 4 MG PO (20:17)
[2023-06-07] MEDS: predniSONE 5 MG TABLET PO (20:18)
[2023-06-07] MEDS: Donepezil HCl 10 MG TABLET PO (20:18)
[2023-06-08 06:00] VITALS: BP 170/83; PULSE 67; RESP 16; O2SAT 95
[2023-06-08 07:00] VITALS: BMI 29.8
[2023-06-08 07:39] LABS: Glucose, Whole Blood 113 mg/dL (60-115)
[2023-06-08] MEDS: Insulin Glargine,Hum.rec.anlog 100 UNIT/ML 10 ML VIAL 8 UNIT SUBCUT (09:08)
[2023-06-08] MEDS: Atorvastatin Calcium 40 MG TABLET PO (09:09)
[2023-06-08] MEDS: Famotidine 20 MG TABLET PO (09:09)
[2023-06-08] MEDS: Sertraline HCL 50 MG TABLET PO (09:10)
[2023-06-08] MEDS: Empagliflozin 25 MG TABLET PO (09:10)
[2023-06-08] MEDS: metFORMIN HCl 1,000 MG TABLET 1000 MG PO ×2 (09:10→21:05)
[2023-06-08] MEDS: Memantine HCl 5 MG TABLET PO ×2 (09:10→21:05)
[2023-06-08] MEDS: predniSONE 10 MG TABLET PO (09:10)
[2023-06-08] MEDS: Omeprazole 20 MG CAPSULE.DR PO (09:10)
[2023-06-08 11:41] LABS: Glucose, Whole Blood 116 mg/dL (60-115)
--- NOTE | 2023-06-08 12:40 | HO.PSYCHPN ---
Subjective Subjective Date of Service: 06/08/23 Reason For Visit: hallucinations confusion Subjective Notes: Conditional Voluntary Interim History: The nursing staff reported the patient has been pleasant, oriented to self only anxious at times but easily redirectable. She slept well last night. The executive secretary social welfare reported that they are going to start the guardianship paperwork but her daughter is not responding. He will [facility] her but she had not been financially clear. The occupational therapist reported that her affect had been brighter in groups. On interview the patient is confused, easily redirectable pleasant. Mental Status Exam Mental Status Exam Patient Appearance: Well Grooomed Patient Orientation: Person and Situation Level of Consciousness: Awake and Appropriate Patient Behavior: Guarded and Passive Mood Description: Withdrawn Affect Description: Constricted Patient Cognition Impaired: Yes Ability to Follow Directions: Good Speech Pattern: Clear Hallucinations: None Delusions: Not Present Thought Process: Linear Thought Content: positive for Circumstantial Judgement: Fair Diagnostics Vital Signs (24Hr): Vital Signs - 24 hr 06/07/23 18:00 06/08/23 06:00 Temperature 98 F Pulse Rate 74 67 Respiratory Rate 18 16 Blood Pressure 131/62 170/83 H Pulse Oximetry 97 95 Oxygen Delivery Method Room Air Room Air BMI result Body Mass Index 30.0 Labs 04/08/23 09:08 06/04/23 07:23 Labs: Laboratory Results - last 48 hr 06/06/23 06/06/23 06/06/23 12:35 16:30 20:23 POC Glucose 154 H 192 H 176 H 06/07/23 06/07/23 06/07/23 07:38 11:34 16:23 POC Glucose 136 H 170 H 171 H 06/07/23 06/08/23 06/08/23 19:53 07:35 11:33 POC Glucose 236 H 113 116 H Imaging Radiology Impressions: ITS Impressions Brain MRI 04/03/23 15:30 IMPRESSION: No acute infarct, mass lesion, intracranial hemorrhage, or evidence of hydrocephalus. Mild nonspecific T2/FLAIR hyperintensity in the cerebral white matter and danny presumably on the basis of chronic microangiopathy. Medications Medications Current Medications Acetaminophen (Acetaminophen 325 Mg Tablet) 650 mg PO Q6H PRN PRN Reason: Headache/Pain Mild Scale (1-3) Last Admin: 05/06/23 20:10 Dose: 650 mg Al Hydroxide/Mg Hydroxide (Magnesium Hydrox/Alum Hydrox 30 Ml Oral.Susp) 30 ml PO Q6H PRN PRN Reason: Heartburn/Nausea Atorvastatin Calcium (Atorvastatin Calcium 40 Mg Tablet) 40 mg PO DAILY [facility] Last Admin: 06/08/23 09:09 Dose: 40 mg Dextrose (Dextrose 50 % 25 Gm/50 Ml Syringe) 25 gm IVPUSH Q15M PRN; Protocol PRN Reason: per Hypoglycemia Standing Ord. Donepezil HCl (Donepezil Hcl 10 Mg Tablet) 10 mg PO BEDTIME [facility] Last Admin: 06/07/23 20:18 Dose: 10 mg Empagliflozin (Empagliflozin 25 Mg Tablet) 25 mg PO DAILY [facility] Last Admin: 06/08/23 09:10 Dose: 25 mg Famotidine (Famotidine 20 Mg Tablet) 20 mg PO DAILY [facility] Last Admin: 06/08/23 09:09 Dose: 20 mg Glucose (Glucose Gel 15 Gm Gel..Gram.) 15 gm PO Q15M PRN; Protocol PRN Reason: per Hypoglycemia Standing Ord. Haloperidol (Haloperidol 1 Mg Tablet) 4 mg PO BEDTIME [facility] Last Admin: 06/07/23 20:17 Dose: 4 mg Insulin Glargine (Insulin Glargine,Hum.Rec.Anlog 100 Unit/Ml 10 Ml Vial) 8 unit SUBCUT DAILY [facility] Last Admin: 06/08/23 09:08 Dose: 8 unit Insulin Human Lispro (Insulin Lispro 100 Unit/Ml 3 Ml Vial) 0 unit SUBCUT QIDACHS [facility]; Protocol Last Admin: 06/08/23 12:14 Dose: Not Given Magnesium Hydroxide (Milk Of Magnesia 30 Ml Oral.Susp) 30 ml PO DAILY PRN PRN Reason: Constipation Memantine (Memantine Hcl 5 Mg Tablet) 5 mg PO BID [facility] Last Admin: 06/08/23 09:10 Dose: 5 mg Metformin HCl (Metformin Hcl 1,000 Mg Tablet) 1,000 mg PO BID [facility] Last Admin: 06/08/23 09:10 Dose: 1,000 mg Olanzapine (Olanzapine 2.5 Mg Tablet) 2.5 mg PO Q4H PRN PRN Reason: anxiety/agitation Last Admin: 04/29/23 17:17 Dose: 2.5 mg Omeprazole (Omeprazole 20 Mg Capsule.Dr) 20 mg PO DAILY [facility] Last Admin: 06/08/23 09:10 Dose: 20 mg Prednisone (Prednisone 10 Mg Tablet) 10 mg PO DAILY [facility] Last Admin: 06/08/23 09:10 Dose: 10 mg Prednisone (Prednisone 5 Mg Tablet) 5 mg PO BEDTIME [facility] Stop: 06/12/23 10:28 Last Admin: 06/07/23 20:18 Dose: 5 mg Sertraline HCl (Sertraline Hcl 50 Mg Tablet) 50 mg PO DAILY [facility] Last Admin: 06/08/23 09:10 Dose: 50 mg Trazodone HCl (Trazodone Hcl 50 Mg Tablet) 50 mg PO BEDTIME [facility]X1 PRN PRN Reason: Insomnia Last Admin: 06/06/23 21:26 Dose: 50 mg Allergies Allergies Allergy/AdvReac Type Severity Reaction Status Date / Time No Known Allergies Allergy Verified 03/23/23 18:13 Assessment & Plan Assessment & Plan (1) Dementia: Status: Acute Code(s): F03.90 - Unspecified dementia, unspecified severity, without behavioral disturbance, psychotic disturbance, mood disturbance, and anxiety Assessment and Plan: 57 years old woman with somewhat rapidly progressing dementia or symptoms of dementia with CSF protein of 88 but otherwise no definite clue about her diagnosis. I discussed the case with neurology service at [facility] and they suggested that the workup has been appropriate and thorough and it was not clear if any further investigations were needed. Also, they did not have beds available for transfer According to their experience, this level of CSF protein could be seen and degenerative disorders but could also be seen in some type of spine pathology, which we have not investigated. In any case, high CSF protein without elevation of cells and without any significant brain lesions on MRI, does not suggest malignancy or vasculitis type of pathology. At this time, after discussing the case with the neurologist in [place], my recommendation is to treat her for degenerative dementia appearing in young age. Some CSF tests are pending which may confirm this notion. PET scan can also help. On the other hand, further CSF analysis and investigations for vasculitis like brain biopsy are not warranted. As far as treatment of dementia is concerned, it is symptomatic. I would start with donepezil 5 mg daily and after a week would add memantine 5 mg twice a day. These are the 2 types of medicines available at this time. Finally, her placement could be an issue as she would not be able to live independently Plan 05/05/23 Pt with gross disorganization b sister give hx of more gradual deterioration neuro note reviewed chart reviewed start aricept some csf results pending consider pet if available ?05/07/2023: No changes to current treatment plan.? Treatment team working on complex disposition which may include instituted living in [place] 05/08 continue tx. 05/09 continue tx. 05/10:? neuro believes Dx more likely dementia at this point, consulted with [facility] neuro who informed him protein of 88 may sometimes be seen in dementia or spinal disorders and that w/u thus far here had been thorough and adequate.? plan to treat as dementia for now.? neuro rec starting donepezil and 1 week later memantine.? donepezil started 5 days ago, memantine scheduled to be started in 3 days.? 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 per review of [employer], their recommended taper for this pt's duration of therapy and daily dose is to reduce by 5 mg/day every 1-2 weeks.? as her time on steroids has been relatively short, we would proceed with the more aggressive taper.? in any event, dosing to be reduced by 5 mg/day as of today. 05/11: all labs results in, positives are for elevated CSF protein/albumin and pattern of CSF protein c/w alzheimer's dementia. continue induction on cholinesterase inhibitor, pednisone taper, work on dispo planning. 05/12: no change in presentation. discharge planning aggressively underway. start memantine tomorrow. currently planning for discharge monday. 05/13: memantine started today. decrease zyprexa at HS from 5 mg to 2.5 mg in attempt to decrease overall sedation. plan to decrease prednisone by 5 mg/day on monday. 05/14: continue current mgmt. decrease prednisone by 5 mg/day as of tomorrow morning. dispo planning underway. 05/15: continue current mgmt. family meeting tomorrow with pt's daughter and HCP, bakari. 05/16: family mtg held. SW looking into rest homes, family to pursue involving extended family for a place for pt to stay. FSBS elevated, prednisone taper ongoing, SSI being used. 05/17: no change in mgmt. met with jigna ACKERMAN and MEKA bunch to discuss dispo options. rest home is not an option, STR does not appear to be likely to be an option but is being pursued today. awaiting word from daughter on option to DC to brother's home. will need alf care daily for DM mgmt until no longer requiring SSI, however. per report, her insurance does not cover VNA. 05/18: stable presentation. requesting new MoCA and ACLS as pt's cognition seems to have improved slightly since treatment for AD began. 05/19: stable presentation. daughter working on dispo options. ACLS unchanged from prior. T/C transfer to [facility] today. continue prednisone taper monday. 05/20 Less agitated. No med changes today. 05/21: prednisone taper in process, consider transfer to [facility] 05/22/2023 Hospitalist consult regarding hyperglycemia consider stopping olanzapine and changing to antipsychotic if needed lowered tendency to increase blood sugars. Discharge planning AFTER DISCUSSION WITH MARGARITA PEREZ THE PATIENT WAS PLACED LONG-ACTING INSULIN GLARGINE 05/23: FSBS trending down. continue current mgmt. T/C change to typical anti-psychotic. case d/w Dr. Trotter. 05/24: stable. DCed zyprexa and started haldol 2 mg QHS. completed review with insurance [employer] MD. [facility]. 05/25: increase HS haldol to 4 mg, otherwise continue current mgmt. stable presentation. 05/26: no change in presentation. continue current mgmt. 05/27: no change in presentation. continue current mgmt. 05/28: no change in presentation. continue current mgmt. 05/29: no change, continue. 05/30: no change, continue. 05/31: FSBS trending better, recently mostly below 200. otherwise no changes. continue current mgmt. 06/01: FSBS trending better, recently mostly below 200. otherwise no changes. continue current mgmt. daughter has not returned any of 's calls for the past week. 06/02: decrease glargine from 10 units daily to 8 units daily as pt's FSBS have started to come under 100. decrease prednisone this monday and the following monday (orders written). pending placement and getting off of insulin. 06/03 keep same treatment. 06/04 keep same treatment 06/05/23 Pt seen cont tx plan Plan 1. Continue with prednisone taper. 2. Increase Aricept up to 10 mg p.o. q.h.s. today. 3. We will keep on Namenda 5 mg p.o. b.i.d. with a goal to increase it up to 10 mg next week. 4. Discharged to alf facility when financially cleared. Reason for continued inpatient stay Substantial Risk for: inability to function, rapid decompensation and med/psych decompensation Time Spent With Patient Time: Total time managing care of this patient today __20__ minutes.
[2023-06-08 16:27] LABS: Glucose, Whole Blood 154 mg/dL (60-115)
[2023-06-08] MEDS: Insulin Lispro 100 UNIT/ML 3 ML VIAL SUBCUT (16:42)
[2023-06-08 20:23] VITALS: BP 115/58; PULSE 74; RESP 18; TEMP 36.3; O2SAT 94
[2023-06-08 20:24] LABS: Glucose, Whole Blood 130 mg/dL (60-115)
[2023-06-08] MEDS: predniSONE 5 MG TABLET PO (21:05)
[2023-06-08] MEDS: HaloperidoL 1 MG TABLET 4 MG PO (21:05)
[2023-06-08] MEDS: Donepezil HCl 10 MG TABLET PO (21:05)
[2023-06-09 06:00] VITALS: BP 135/73; PULSE 70; RESP 16; O2SAT 97
[2023-06-09 07:52] LABS: Glucose, Whole Blood 98 mg/dL (60-115)
[2023-06-09] MEDS: predniSONE 10 MG TABLET PO (09:01)
[2023-06-09] MEDS: Omeprazole 20 MG CAPSULE.DR PO (09:01)
[2023-06-09] MEDS: Famotidine 20 MG TABLET PO (09:01)
[2023-06-09] MEDS: Atorvastatin Calcium 40 MG TABLET PO (09:01)
[2023-06-09] MEDS: Insulin Glargine,Hum.rec.anlog 100 UNIT/ML 10 ML VIAL 8 UNIT SUBCUT (09:01)
[2023-06-09] MEDS: Sertraline HCL 50 MG TABLET PO (09:01)
[2023-06-09] MEDS: Empagliflozin 25 MG TABLET PO (09:02)
[2023-06-09] MEDS: metFORMIN HCl 1,000 MG TABLET 1000 MG PO ×2 (09:02→21:06)
--- NOTE | 2023-06-09 10:57 | HO.PSYCHPN ---
Subjective Subjective Date of Service: 06/09/23 Reason For Visit: hallucinations confusion Subjective Notes: Conditional Voluntary Interim History: The nursing staff reported patient had been common cooperative social with good appetite. She had been fully compliant with medications. On interview the patient denies new symptoms she looks confused but very pleasant. We are increasing Namenda up to 10 mg p.o. b.i.d. to target dementia. Mental Status Exam Mental Status Exam Patient Appearance: Well Grooomed and Appropriate Patient Orientation: Person and Situation Level of Consciousness: Awake and Appropriate Patient Behavior: Guarded and Passive Mood Description: Withdrawn Affect Description: Constricted Patient Cognition Impaired: Yes Ability to Follow Directions: Good Speech Pattern: Clear Hallucinations: None Delusions: Not Present Thought Process: Distracted and Slowed Thinking Thought Content: positive for [place], positive for Poverty of Content and positive for Thought Blocking Judgement: Fair Diagnostics Vital Signs (24Hr): Vital Signs - 24 hr 06/08/23 20:23 06/09/23 06:00 Temperature 97.4 F Pulse Rate 74 70 Respiratory Rate 18 16 Blood Pressure 115/58 L 135/73 Pulse Oximetry 94 97 Oxygen Delivery Method Room Air Room Air BMI result Body Mass Index 29.8 Labs 04/08/23 09:08 06/04/23 07:23 Labs: Laboratory Results - last 48 hr 06/07/23 06/07/23 06/07/23 11:34 16:23 19:53 POC Glucose 170 H 171 H 236 H 06/08/23 06/08/23 06/08/23 07:35 11:33 16:20 POC Glucose 113 116 H 154 H 06/08/23 06/09/23 19:49 07:44 POC Glucose 130 H 98 Imaging Radiology Impressions: ITS Impressions Brain MRI 04/03/23 15:30 IMPRESSION: No acute infarct, mass lesion, intracranial hemorrhage, or evidence of hydrocephalus. Mild nonspecific T2/FLAIR hyperintensity in the cerebral white matter and danny presumably on the basis of chronic microangiopathy. Medications Medications Current Medications Acetaminophen (Acetaminophen 325 Mg Tablet) 650 mg PO Q6H PRN PRN Reason: Headache/Pain Mild Scale (1-3) Last Admin: 05/06/23 20:10 Dose: 650 mg Al Hydroxide/Mg Hydroxide (Magnesium Hydrox/Alum Hydrox 30 Ml Oral.Susp) 30 ml PO Q6H PRN PRN Reason: Heartburn/Nausea Atorvastatin Calcium (Atorvastatin Calcium 40 Mg Tablet) 40 mg PO DAILY [facility] Last Admin: 06/09/23 09:01 Dose: 40 mg Dextrose (Dextrose 50 % 25 Gm/50 Ml Syringe) 25 gm IVPUSH Q15M PRN; Protocol PRN Reason: per Hypoglycemia Standing Ord. Donepezil HCl (Donepezil Hcl 10 Mg Tablet) 10 mg PO BEDTIME [facility] Last Admin: 06/08/23 21:05 Dose: 10 mg Empagliflozin (Empagliflozin 25 Mg Tablet) 25 mg PO DAILY [facility] Last Admin: 06/09/23 09:02 Dose: 25 mg Famotidine (Famotidine 20 Mg Tablet) 20 mg PO DAILY [facility] Last Admin: 06/09/23 09:01 Dose: 20 mg Glucose (Glucose Gel 15 Gm Gel..Gram.) 15 gm PO Q15M PRN; Protocol PRN Reason: per Hypoglycemia Standing Ord. Haloperidol (Haloperidol 1 Mg Tablet) 4 mg PO BEDTIME [facility] Last Admin: 06/08/23 21:05 Dose: 4 mg Insulin Glargine (Insulin Glargine,Hum.Rec.Anlog 100 Unit/Ml 10 Ml Vial) 8 unit SUBCUT DAILY [facility] Last Admin: 06/09/23 09:01 Dose: 8 unit Insulin Human Lispro (Insulin Lispro 100 Unit/Ml 3 Ml Vial) 0 unit SUBCUT QIDACHS [facility]; Protocol Last Admin: 06/09/23 09:00 Dose: Not Given Magnesium Hydroxide (Milk Of Magnesia 30 Ml Oral.Susp) 30 ml PO DAILY PRN PRN Reason: Constipation Memantine (Memantine Hcl 10 Mg Tablet) 10 mg PO BID [facility] Metformin HCl (Metformin Hcl 1,000 Mg Tablet) 1,000 mg PO BID [facility] Last Admin: 06/09/23 09:02 Dose: 1,000 mg Olanzapine (Olanzapine 2.5 Mg Tablet) 2.5 mg PO Q4H PRN PRN Reason: anxiety/agitation Last Admin: 04/29/23 17:17 Dose: 2.5 mg Omeprazole (Omeprazole 20 Mg Capsule.Dr) 20 mg PO DAILY [facility] Last Admin: 06/09/23 09:01 Dose: 20 mg Prednisone (Prednisone 10 Mg Tablet) 10 mg PO DAILY [facility] Last Admin: 06/09/23 09:01 Dose: 10 mg Prednisone (Prednisone 5 Mg Tablet) 5 mg PO BEDTIME [facility] Stop: 06/12/23 10:28 Last Admin: 06/08/23 21:05 Dose: 5 mg Sertraline HCl (Sertraline Hcl 50 Mg Tablet) 50 mg PO DAILY [facility] Last Admin: 06/09/23 09:01 Dose: 50 mg Trazodone HCl (Trazodone Hcl 50 Mg Tablet) 50 mg PO BEDTIME MRX1 PRN PRN Reason: Insomnia Last Admin: 06/06/23 21:26 Dose: 50 mg Allergies Allergies Allergy/AdvReac Type Severity Reaction Status Date / Time No Known Allergies Allergy Verified 03/23/23 18:13 Assessment & Plan Assessment & Plan (1) Dementia: Status: Acute Code(s): F03.90 - Unspecified dementia, unspecified severity, without behavioral disturbance, psychotic disturbance, mood disturbance, and anxiety Assessment and Plan: 57 years old woman with somewhat rapidly progressing dementia or symptoms of dementia with CSF protein of 88 but otherwise no definite clue about her diagnosis. I discussed the case with neurology service at [facility] and they suggested that the workup has been appropriate and thorough and it was not clear if any further investigations were needed. Also, they did not have beds available for transfer According to their experience, this level of CSF protein could be seen and degenerative disorders but could also be seen in some type of spine pathology, which we have not investigated. In any case, high CSF protein without elevation of cells and without any significant brain lesions on MRI, does not suggest malignancy or vasculitis type of pathology. At this time, after discussing the case with the neurologist in [place], my recommendation is to treat her for degenerative dementia appearing in young age. Some CSF tests are pending which may confirm this notion. PET scan can also help. On the other hand, further CSF analysis and investigations for vasculitis like brain biopsy are not warranted. As far as treatment of dementia is concerned, it is symptomatic. I would start with donepezil 5 mg daily and after a week would add memantine 5 mg twice a day. These are the 2 types of medicines available at this time. Finally, her placement could be an issue as she would not be able to live independently Plan 05/05/23 Pt with gross disorganization b sister give hx of more gradual deterioration neuro note reviewed chart reviewed start aricept some csf results pending consider pet if available ?05/07/2023: No changes to current treatment plan.? Treatment team working on complex disposition which may include instituted living in [place] 05/08 continue tx. 05/09 continue tx. 05/10:? neuro believes Dx more likely dementia at this point, consulted with [place] [facility] who informed him protein of 88 may sometimes be seen in dementia or spinal disorders and that w/u thus far here had been thorough and adequate.? plan to treat as dementia for now.? neuro rec starting donepezil and 1 week later memantine.? donepezil started 5 days ago, memantine scheduled to be started in 3 days.? 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 per review of [facility], their recommended taper for this pt's duration of therapy and daily dose is to reduce by 5 mg/day every 1-2 weeks.? as her time on steroids has been relatively short, we would proceed with the more aggressive taper.? in any event, dosing to be reduced by 5 mg/day as of today. 05/11: all labs results in, positives are for elevated CSF protein/albumin and pattern of CSF protein c/w alzheimer's dementia. continue induction on cholinesterase inhibitor, pednisone taper, work on dispo planning. 05/12: no change in presentation. discharge planning aggressively underway. start memantine tomorrow. currently planning for discharge monday. 05/13: memantine started today. decrease zyprexa at HS from 5 mg to 2.5 mg in attempt to decrease overall sedation. plan to decrease prednisone by 5 mg/day on monday. 05/14: continue current mgmt. decrease prednisone by 5 mg/day as of tomorrow morning. dispo planning underway. 05/15: continue current mgmt. family meeting tomorrow with pt's daughter and HCP, bakari. 05/16: family mtg held. SW looking into rest homes, family to pursue involving extended family for a place for pt to stay. FSBS elevated, prednisone taper ongoing, SSI being used. 05/17: no change in mgmt. met with jigna ACKERMAN and MEKA bunch to discuss dispo options. rest home is not an option, STR does not appear to be likely to be an option but is being pursued today. awaiting word from daughter on option to DC to brother's home. will need residential care daily for DM mgmt until no longer requiring SSI, however. per report, her insurance does not cover VNA. 05/18: stable presentation. requesting new MoCA and ACLS as pt's cognition seems to have improved slightly since treatment for AD began. 05/19: stable presentation. daughter working on dispo options. ACLS unchanged from prior. T/C transfer to [facility] today. continue prednisone taper monday. 05/20 Less agitated. No med changes today. 05/21: prednisone taper in process, consider transfer to [facility] 05/22/2023 Hospitalist consult regarding hyperglycemia consider stopping olanzapine and changing to antipsychotic if needed lowered tendency to increase blood sugars. Discharge planning AFTER DISCUSSION WITH MARGARITA PEREZ THE PATIENT WAS PLACED LONG-ACTING INSULIN GLARGINE 05/23: FSBS trending down. continue current mgmt. T/C change to typical anti-psychotic. case d/w Dr. Trotter. 05/24: stable. DCed zyprexa and started haldol 2 mg QHS. completed review with insurance company . [facility]. 05/25: increase HS haldol to 4 mg, otherwise continue current mgmt. stable presentation. 05/26: no change in presentation. continue current mgmt. 05/27: no change in presentation. continue current mgmt. 05/28: no change in presentation. continue current mgmt. 05/29: no change, continue. 05/30: no change, continue. 05/31: FSBS trending better, recently mostly below 200. otherwise no changes. continue current mgmt. 06/01: FSBS trending better, recently mostly below 200. otherwise no changes. continue current mgmt. daughter has not returned any of 's calls for the past week. 06/02: decrease glargine from 10 units daily to 8 units daily as pt's FSBS have started to come under 100. decrease prednisone this monday and the following monday (orders written). pending placement and getting off of insulin. 06/03 keep same treatment. 06/04 keep same treatment 06/05/23 Pt seen cont tx plan Plan 1. Continue with prednisone taper. 2. Increase Aricept up to 10 mg p.o. q.h.s. today. 3. We will keep on Namenda 5 mg p.o. b.i.d. with a goal to increase it up to 10 mg on June 09. Discharged to residential facility when financially cleared. Reason for continued inpatient stay Substantial Risk for: inability to function, rapid decompensation and med/psych decompensation Time Spent With Patient Time: Total time managing care of this patient today __20__ minutes.
[2023-06-09 11:40] LABS: Glucose, Whole Blood 145 mg/dL (60-115)
[2023-06-09] MEDS: Memantine HCl 10 MG TABLET PO ×2 (11:47→21:06)
[2023-06-09 16:27] LABS: Glucose, Whole Blood 184 mg/dL (60-115)
[2023-06-09] MEDS: Insulin Lispro 100 UNIT/ML 3 ML VIAL SUBCUT (16:37)
[2023-06-09 20:26] LABS: Glucose, Whole Blood 137 mg/dL (60-115)
[2023-06-09 21:01] VITALS: BP 143/70; PULSE 70; RESP 18; TEMP 36.6; O2SAT 97
[2023-06-09] MEDS: HaloperidoL 1 MG TABLET 4 MG PO (21:05)
[2023-06-09] MEDS: predniSONE 5 MG TABLET PO (21:06)
[2023-06-09] MEDS: Donepezil HCl 10 MG TABLET PO (21:06)
[2023-06-10 07:39] LABS: Anion Gap 17 (12-20); Blood Urea Nitrogen 15 mg/dL (9-16); Calcium 8.6 mg/dL (8.4-10.2); Carbon Dioxide 24 mmol/L (22-29); Chloride 106 mmol/L (96-108); Creatinine Clr Calc Pharmacy 95.7; Estimated Glomerular Filt Rate > 60; Glucose Random 119 mg/dL (60-115); Potassium 3.6 mmol/L (3.3-5.1); Sodium 143 mmol/L (135-145)
[2023-06-10 07:51] LABS: Glucose, Whole Blood 116 mg/dL (60-115)
[2023-06-10 08:49] VITALS: BP 104/52; PULSE 71; RESP 15; TEMP 36.6; O2SAT 95
[2023-06-10] MEDS: Insulin Glargine,Hum.rec.anlog 100 UNIT/ML 10 ML VIAL 8 UNIT SUBCUT (08:50)
[2023-06-10] MEDS: Atorvastatin Calcium 40 MG TABLET PO (08:51)
[2023-06-10] MEDS: metFORMIN HCl 1,000 MG TABLET 1000 MG PO ×2 (08:51→20:28)
[2023-06-10] MEDS: Omeprazole 20 MG CAPSULE.DR PO (08:51)
[2023-06-10] MEDS: predniSONE 10 MG TABLET PO (08:51)
[2023-06-10] MEDS: Sertraline HCL 50 MG TABLET PO (08:51)
[2023-06-10] MEDS: Memantine HCl 10 MG TABLET PO ×2 (08:51→20:28)
[2023-06-10] MEDS: Famotidine 20 MG TABLET PO (08:51)
[2023-06-10] MEDS: Empagliflozin 25 MG TABLET PO (08:51)
[2023-06-10 11:27] LABS: Glucose, Whole Blood 145 mg/dL (60-115)
--- NOTE | 2023-06-10 11:39 | HO.PSYCHPN ---
Subjective Subjective Date of Service: 06/10/23 Reason For Visit: hallucinations confusion Subjective Notes: Conditional Voluntary Interim History: Patient was seen and discussed in rounds today. Records and plans were reviewed. She has been doing fairly well and has been stable. Continues to be withdrawn and confused. Blood sugars have been within range and her blood pressure has been within range. No complaints or side effects. No changes were made today. No behavioral problems. Review of Systems Review of Systems No seizure or similar episode no stroke-like symptoms Yes all other systems are reviewed and are negative and Unobtainable due to mental status Constitutional: Reports as per HPI, Denies chills, Denies fatigue, Denies fever(s) and Denies headache(s) Denies headache(s) Cardiovascular: Denies chest pain and Denies dyspnea Respiratory: Denies cough and Denies dyspnea Gastrointestinal: Denies abdominal pain, Denies constipation and Denies vomiting Denies headache(s) and Denies focal weakness Psychiatric: Denies auditory hallucinations, Reports hallucinations (Per the patient's daughter. Patient denies this), Denies tactile hallucinations and Denies suicidal ideation Endocrine: Denies fatigue Mental Status Exam Mental Status Exam Patient Appearance: Well Grooomed and Appropriate Patient Orientation: Person and Situation Level of Consciousness: Awake and Appropriate Patient Behavior: Guarded and Passive Mood Description: Withdrawn Affect Description: Constricted Patient Cognition Impaired: Yes Ability to Follow Directions: Good Speech Pattern: Clear Hallucinations: None Delusions: Not Present Thought Process: Distracted and Slowed Thinking Thought Content: positive for [place], positive for Poverty of Content and positive for Thought Blocking Judgement: Fair Diagnostics Vital Signs (24Hr): Vital Signs - 24 hr 06/09/23 21:01 06/10/23 08:49 Temperature 97.8 F 97.8 F Pulse Rate 70 71 Respiratory Rate 18 15 Blood Pressure 143/70 H 104/52 L Pulse Oximetry 97 95 Oxygen Delivery Method Room Air Room Air BMI result Body Mass Index 29.8 Labs 04/08/23 09:08 06/10/23 07:20 Labs: Laboratory Results - last 48 hr 06/08/23 06/08/23 06/08/23 11:33 16:20 19:49 Sodium Potassium Chloride Carbon Dioxide Anion Gap BUN Creatinine Estim Creat Clear Calc Estimated GFR POC Glucose 116 H 154 H 130 H Random Glucose Calcium 06/09/23 06/09/23 06/09/23 07:44 11:34 16:22 Sodium Potassium Chloride Carbon Dioxide Anion Gap BUN Creatinine Estim Creat Clear Calc Estimated GFR POC Glucose 98 145 H 184 H Random Glucose Calcium 06/09/23 06/10/23 06/10/23 20:14 07:20 07:45 Sodium 143 Potassium 3.6 D Chloride 106 Carbon Dioxide 24 Anion Gap 17 BUN 15 Creatinine 0.61 Estim Creat Clear Calc 95.7 Estimated GFR > 60 POC Glucose 137 H 116 H Random Glucose 119 H Calcium 8.6 D 06/10/23 11:22 Sodium Potassium Chloride Carbon Dioxide Anion Gap BUN Creatinine Estim Creat Clear Calc Estimated GFR POC Glucose 145 H Random Glucose Calcium Imaging Radiology Impressions: ITS Impressions Brain MRI 04/03/23 15:30 IMPRESSION: No acute infarct, mass lesion, intracranial hemorrhage, or evidence of hydrocephalus. Mild nonspecific T2/FLAIR hyperintensity in the cerebral white matter and danny presumably on the basis of chronic microangiopathy. Medications Medications Current Medications Acetaminophen (Acetaminophen 325 Mg Tablet) 650 mg PO Q6H PRN PRN Reason: Headache/Pain Mild Scale (1-3) Last Admin: 05/06/23 20:10 Dose: 650 mg Al Hydroxide/Mg Hydroxide (Magnesium Hydrox/Alum Hydrox 30 Ml Oral.Susp) 30 ml PO Q6H PRN PRN Reason: Heartburn/Nausea Atorvastatin Calcium (Atorvastatin Calcium 40 Mg Tablet) 40 mg PO DAILY [facility] Last Admin: 06/10/23 08:51 Dose: 40 mg Dextrose (Dextrose 50 % 25 Gm/50 Ml Syringe) 25 gm IVPUSH Q15M PRN; Protocol PRN Reason: per Hypoglycemia Standing Ord. Donepezil HCl (Donepezil Hcl 10 Mg Tablet) 10 mg PO BEDTIME [facility] Last Admin: 06/09/23 21:06 Dose: 10 mg Empagliflozin (Empagliflozin 25 Mg Tablet) 25 mg PO DAILY [facility] Last Admin: 06/10/23 08:51 Dose: 25 mg Famotidine (Famotidine 20 Mg Tablet) 20 mg PO DAILY [facility] Last Admin: 06/10/23 08:51 Dose: 20 mg Glucose (Glucose Gel 15 Gm Gel..Gram.) 15 gm PO Q15M PRN; Protocol PRN Reason: per Hypoglycemia Standing Ord. Haloperidol (Haloperidol 1 Mg Tablet) 4 mg PO BEDTIME [facility] Last Admin: 06/09/23 21:05 Dose: 4 mg Insulin Glargine (Insulin Glargine,Hum.Rec.Anlog 100 Unit/Ml 10 Ml Vial) 8 unit SUBCUT DAILY [facility] Last Admin: 06/10/23 08:50 Dose: 8 unit Insulin Human Lispro (Insulin Lispro 100 Unit/Ml 3 Ml Vial) 0 unit SUBCUT QIDACHS [facility]; Protocol Last Admin: 06/10/23 11:29 Dose: Not Given Magnesium Hydroxide (Milk Of Magnesia 30 Ml Oral.Susp) 30 ml PO DAILY PRN PRN Reason: Constipation Memantine (Memantine Hcl 10 Mg Tablet) 10 mg PO BID [facility] Last Admin: 06/10/23 08:51 Dose: 10 mg Metformin HCl (Metformin Hcl 1,000 Mg Tablet) 1,000 mg PO BID [facility] Last Admin: 06/10/23 08:51 Dose: 1,000 mg Olanzapine (Olanzapine 2.5 Mg Tablet) 2.5 mg PO Q4H PRN PRN Reason: anxiety/agitation Last Admin: 04/29/23 17:17 Dose: 2.5 mg Omeprazole (Omeprazole 20 Mg Capsule.Dr) 20 mg PO DAILY [facility] Last Admin: 06/10/23 08:51 Dose: 20 mg Prednisone (Prednisone 10 Mg Tablet) 10 mg PO DAILY [facility] Last Admin: 06/10/23 08:51 Dose: 10 mg Prednisone (Prednisone 5 Mg Tablet) 5 mg PO BEDTIME [facility] Stop: 06/12/23 10:28 Last Admin: 06/09/23 21:06 Dose: 5 mg Sertraline HCl (Sertraline Hcl 50 Mg Tablet) 50 mg PO DAILY [facility] Last Admin: 06/10/23 08:51 Dose: 50 mg Trazodone HCl (Trazodone Hcl 50 Mg Tablet) 50 mg PO BEDTIME MRX1 PRN PRN Reason: Insomnia Last Admin: 06/06/23 21:26 Dose: 50 mg Allergies Allergies Allergy/AdvReac Type Severity Reaction Status Date / Time No Known Allergies Allergy Verified 03/23/23 18:13 Assessment & Plan Assessment & Plan (1) Dementia: Status: Acute Code(s): F03.90 - Unspecified dementia, unspecified severity, without behavioral disturbance, psychotic disturbance, mood disturbance, and anxiety Assessment and Plan: 57 years old woman with somewhat rapidly progressing dementia or symptoms of dementia with CSF protein of 88 but otherwise no definite clue about her diagnosis. I discussed the case with neurology service at [facility] and they suggested that the workup has been appropriate and thorough and it was not clear if any further investigations were needed. Also, they did not have beds available for transfer According to their experience, this level of CSF protein could be seen and degenerative disorders but could also be seen in some type of spine pathology, which we have not investigated. In any case, high CSF protein without elevation of cells and without any significant brain lesions on MRI, does not suggest malignancy or vasculitis type of pathology. At this time, after discussing the case with the neurologist in [place], my recommendation is to treat her for degenerative dementia appearing in young age. Some CSF tests are pending which may confirm this notion. PET scan can also help. On the other hand, further CSF analysis and investigations for vasculitis like brain biopsy are not warranted. As far as treatment of dementia is concerned, it is symptomatic. I would start with donepezil 5 mg daily and after a week would add memantine 5 mg twice a day. These are the 2 types of medicines available at this time. Finally, her placement could be an issue as she would not be able to live independently Plan 05/05/23 Pt with gross disorganization b sister give hx of more gradual deterioration neuro note reviewed chart reviewed start aricept some csf results pending consider pet if available ?05/07/2023: No changes to current treatment plan.? Treatment team working on complex disposition which may include instituted living in [place] 05/08 continue tx. 05/09 continue tx. 05/10:? neuro believes Dx more likely dementia at this point, consulted with [place] neuro who informed him protein of 88 may sometimes be seen in dementia or spinal disorders and that w/u thus far here had been thorough and adequate.? plan to treat as dementia for now.? neuro rec starting donepezil and 1 week later memantine.? donepezil started 5 days ago, memantine scheduled to be started in 3 days.? 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 per review of [facility], their recommended taper for this pt's duration of therapy and daily dose is to reduce by 5 mg/day every 1-2 weeks.? as her time on steroids has been relatively short, we would proceed with the more aggressive taper.? in any event, dosing to be reduced by 5 mg/day as of today. 05/11: all labs results in, positives are for elevated CSF protein/albumin and pattern of CSF protein c/w alzheimer's dementia. continue induction on cholinesterase inhibitor, pednisone taper, work on dispo planning. 05/12: no change in presentation. discharge planning aggressively underway. start memantine tomorrow. currently planning for discharge monday. 05/13: memantine started today. decrease zyprexa at HS from 5 mg to 2.5 mg in attempt to decrease overall sedation. plan to decrease prednisone by 5 mg/day on monday. 05/14: continue current mgmt. decrease prednisone by 5 mg/day as of tomorrow morning. dispo planning underway. 05/15: continue current mgmt. family meeting tomorrow with pt's daughter and HCP, bakari. 05/16: family mtg held. SW looking into rest homes, family to pursue involving extended family for a place for pt to stay. FSBS elevated, prednisone taper ongoing, SSI being used. 05/17: no change in mgmt. met with jigna SW and MEKA bunch to discuss dispo options. rest home is not an option, STR does not appear to be likely to be an option but is being pursued today. awaiting word from daughter on option to DC to brother's home. will need halfway care daily for DM mgmt until no longer requiring SSI, however. per report, her insurance does not cover VNA. 05/18: stable presentation. requesting new MoCA and ACLS as pt's cognition seems to have improved slightly since treatment for AD began. 05/19: stable presentation. daughter working on dispo options. ACLS unchanged from prior. T/C transfer to [facility] today. continue prednisone taper monday. 05/20 Less agitated. No med changes today. 05/21: prednisone taper in process, consider transfer to [facility] 05/22/2023 Hospitalist consult regarding hyperglycemia consider stopping olanzapine and changing to antipsychotic if needed lowered tendency to increase blood sugars. Discharge planning AFTER DISCUSSION WITH MARGARITA PEREZ THE PATIENT WAS PLACED LONG-ACTING INSULIN GLARGINE 05/23: FSBS trending down. continue current mgmt. T/C change to typical anti-psychotic. case d/w Dr. Trotter. 05/24: stable. DCed zyprexa and started haldol 2 mg QHS. completed review with insurance company . continue [facility]. 05/25: increase HS haldol to 4 mg, otherwise continue current mgmt. stable presentation. 05/26: no change in presentation. continue current mgmt. 05/27: no change in presentation. continue current mgmt. 05/28: no change in presentation. continue current mgmt. 05/29: no change, continue. 05/30: no change, continue. 05/31: FSBS trending better, recently mostly below 200. otherwise no changes. continue current mgmt. 06/01: FSBS trending better, recently mostly below 200. otherwise no changes. continue current mgmt. daughter has not returned any of 's calls for the past week. 06/02: decrease glargine from 10 units daily to 8 units daily as pt's FSBS have started to come under 100. decrease prednisone this monday and the following monday (orders written). pending placement and getting off of insulin. 06/03 keep same treatment. 06/04 keep same treatment 06/05/23 Pt seen cont tx plan 06/10: Continue current regimen and plans Plan 1. Continue with prednisone taper. 2. Increase Aricept up to 10 mg p.o. q.h.s. today. 3. We will keep on Namenda 5 mg p.o. b.i.d. with a goal to increase it up to 10 mg on June 09 4. Discharged to halfway facility when financially cleared. Reason for continued inpatient stay Substantial Risk for: inability to function Time Spent With Patient Time: Total time managing care of this patient today ____ minutes.
[2023-06-10 16:33] LABS: Glucose, Whole Blood 158 mg/dL (60-115)
[2023-06-10] MEDS: Insulin Lispro 100 UNIT/ML 3 ML VIAL SUBCUT (16:46)
[2023-06-10 19:35] VITALS: BP 113/58; PULSE 80; RESP 16; TEMP 36.2; O2SAT 96
[2023-06-10 20:18] LABS: Glucose, Whole Blood 147 mg/dL (60-115)
[2023-06-10] MEDS: HaloperidoL 1 MG TABLET 4 MG PO (20:26)
[2023-06-10] MEDS: Donepezil HCl 10 MG TABLET PO (20:27)
[2023-06-10] MEDS: predniSONE 5 MG TABLET PO (20:28)
[2023-06-11] MEDS: predniSONE 10 MG TABLET PO (10:13)
[2023-06-11] MEDS: Famotidine 20 MG TABLET PO (10:14)
[2023-06-11] MEDS: Sertraline HCL 50 MG TABLET PO (10:14)
[2023-06-11] MEDS: Insulin Glargine,Hum.rec.anlog 100 UNIT/ML 10 ML VIAL 8 UNIT SUBCUT (10:14)
[2023-06-11] MEDS: Atorvastatin Calcium 40 MG TABLET PO (10:14)
[2023-06-11] MEDS: Empagliflozin 25 MG TABLET PO (10:14)
[2023-06-11] MEDS: Omeprazole 20 MG CAPSULE.DR PO (10:14)
[2023-06-11] MEDS: metFORMIN HCl 1,000 MG TABLET 1000 MG PO ×2 (10:14→21:47)
[2023-06-11] MEDS: Memantine HCl 10 MG TABLET PO ×2 (10:14→21:47)
[2023-06-11 10:26] VITALS: BP 157/80; PULSE 73; RESP 16; TEMP 36.9; O2SAT 96
--- NOTE | 2023-06-11 11:34 | P.PNPSI_ITS ---
Subjective Subjective Date of Service: 06/11/23 Reason For Visit: hallucinations confusion Subjective Notes: Conditional Voluntary Interim History: Patient was seen and discussed in rounds today. Records and plans were reviewed. She has been stable and is doing well. She is attending some groups. She had an episode of incontinence. She has had no behavioral issues. Blood sugars have been steady. No complaints or side effects. Eating and sleeping well. No changes were made. Review of Systems Review of Systems Yes all other systems are reviewed and are negative Mental Status Exam Mental Status Exam Patient Appearance: Well Grooomed and Appropriate Patient Orientation: Person and Situation Level of Consciousness: Awake and Appropriate Patient Behavior: Guarded and Passive Mood Description: Withdrawn Affect Description: Constricted Patient Cognition Impaired: Yes Ability to Follow Directions: Good Speech Pattern: Clear Hallucinations: None Delusions: Not Present Thought Process: Distracted and Slowed Thinking Thought Content: positive for [place], positive for Poverty of Content and positive for Thought Blocking Judgement: Fair Diagnostics Vital Signs (24Hr): Vital Signs - 24 hr 06/10/23 19:35 06/11/23 10:26 Temperature 97.2 F 98.5 F Pulse Rate 80 73 Respiratory Rate 16 16 Blood Pressure 113/58 L 157/80 H Pulse Oximetry 96 96 Oxygen Delivery Method Room Air Room Air BMI result Body Mass Index 29.8 Labs 04/08/23 09:08 06/10/23 07:20 Labs: Laboratory Results - last 48 hr 06/09/23 06/09/23 06/09/23 11:34 16:22 20:14 Sodium Potassium Chloride Carbon Dioxide Anion Gap BUN Creatinine Estim Creat Clear Calc Estimated GFR POC Glucose 145 H 184 H 137 H Random Glucose Calcium 06/10/23 06/10/23 06/10/23 07:20 07:45 11:22 Sodium 143 Potassium 3.6 D Chloride 106 Carbon Dioxide 24 Anion Gap 17 BUN 15 Creatinine 0.61 Estim Creat Clear Calc 95.7 Estimated GFR > 60 POC Glucose 116 H 145 H Random Glucose 119 H Calcium 8.6 D 06/10/23 06/10/23 16:28 20:12 Sodium Potassium Chloride Carbon Dioxide Anion Gap BUN Creatinine Estim Creat Clear Calc Estimated GFR POC Glucose 158 H 147 H Random Glucose Calcium Imaging Radiology Impressions: ITS Impressions Brain MRI 04/03/23 15:30 IMPRESSION: No acute infarct, mass lesion, intracranial hemorrhage, or evidence of hydrocephalus. Mild nonspecific T2/FLAIR hyperintensity in the cerebral white matter and danny presumably on the basis of chronic microangiopathy. Medications Medications Current Medications Acetaminophen (Acetaminophen 325 Mg Tablet) 650 mg PO Q6H PRN PRN Reason: Headache/Pain Mild Scale (1-3) Last Admin: 05/06/23 20:10 Dose: 650 mg Al Hydroxide/Mg Hydroxide (Magnesium Hydrox/Alum Hydrox 30 Ml Oral.Susp) 30 ml PO Q6H PRN PRN Reason: Heartburn/Nausea Atorvastatin Calcium (Atorvastatin Calcium 40 Mg Tablet) 40 mg PO DAILY [facility] Last Admin: 06/11/23 10:14 Dose: 40 mg Dextrose (Dextrose 50 % 25 Gm/50 Ml Syringe) 25 gm IVPUSH Q15M PRN; Protocol PRN Reason: per Hypoglycemia Standing Ord. Donepezil HCl (Donepezil Hcl 10 Mg Tablet) 10 mg PO BEDTIME [facility] Last Admin: 06/10/23 20:27 Dose: 10 mg Empagliflozin (Empagliflozin 25 Mg Tablet) 25 mg PO DAILY [facility] Last Admin: 06/11/23 10:14 Dose: 25 mg Famotidine (Famotidine 20 Mg Tablet) 20 mg PO DAILY [facility] Last Admin: 06/11/23 10:14 Dose: 20 mg Glucose (Glucose Gel 15 Gm Gel..Gram.) 15 gm PO Q15M PRN; Protocol PRN Reason: per Hypoglycemia Standing Ord. Haloperidol (Haloperidol 1 Mg Tablet) 4 mg PO BEDTIME [facility] Last Admin: 06/10/23 20:26 Dose: 4 mg Insulin Glargine (Insulin Glargine,Hum.Rec.Anlog 100 Unit/Ml 10 Ml Vial) 8 unit SUBCUT DAILY [facility] Last Admin: 06/11/23 10:14 Dose: 8 unit Insulin Human Lispro (Insulin Lispro 100 Unit/Ml 3 Ml Vial) 0 unit SUBCUT QIDACHS [facility]; Protocol Last Admin: 06/11/23 09:51 Dose: Not Given Magnesium Hydroxide (Milk Of Magnesia 30 Ml Oral.Susp) 30 ml PO DAILY PRN PRN Reason: Constipation Memantine (Memantine Hcl 10 Mg Tablet) 10 mg PO BID [facility] Last Admin: 06/11/23 10:14 Dose: 10 mg Metformin HCl (Metformin Hcl 1,000 Mg Tablet) 1,000 mg PO BID [facility] Last Admin: 06/11/23 10:14 Dose: 1,000 mg Olanzapine (Olanzapine 2.5 Mg Tablet) 2.5 mg PO Q4H PRN PRN Reason: anxiety/agitation Last Admin: 04/29/23 17:17 Dose: 2.5 mg Omeprazole (Omeprazole 20 Mg Capsule.Dr) 20 mg PO DAILY [facility] Last Admin: 06/11/23 10:14 Dose: 20 mg Prednisone (Prednisone 10 Mg Tablet) 10 mg PO DAILY [facility] Last Admin: 06/11/23 10:13 Dose: 10 mg Prednisone (Prednisone 5 Mg Tablet) 5 mg PO BEDTIME [facility] Stop: 06/12/23 10:28 Last Admin: 06/10/23 20:28 Dose: 5 mg Sertraline HCl (Sertraline Hcl 50 Mg Tablet) 50 mg PO DAILY [facility] Last Admin: 06/11/23 10:14 Dose: 50 mg Trazodone HCl (Trazodone Hcl 50 Mg Tablet) 50 mg PO BEDTIME [facility]X1 PRN PRN Reason: Insomnia Last Admin: 06/06/23 21:26 Dose: 50 mg Allergies Allergies Allergy/AdvReac Type Severity Reaction Status Date / Time No Known Allergies Allergy Verified 03/23/23 18:13 Assessment & Plan Assessment & Plan (1) Dementia: Status: Acute Code(s): F03.90 - Unspecified dementia, unspecified severity, without behavioral di sturbance, psychotic disturbance, mood disturbance, and anxiety Assessment and Plan: 57 years old woman with somewhat rapidly progressing dementia or symptoms of dementia with CSF protein of 88 but otherwise no definite clue about her diagnosis. I discussed the case with neurology service at [facility] and they suggested that the workup has been appropriate and thorough and it was not clear if any further investigations were needed. Also, they did not have beds available for transfer According to their experience, this level of CSF protein could be seen and degenerative disorders but could also be seen in some type of spine pathology, which we have not investigated. In any case, high CSF protein without elevation of cells and without any significant brain lesions on MRI, does not suggest malignancy or vasculitis type of pathology. At this time, after discussing the case with the neurologist in [place], my recommendation is to treat her for degenerative dementia appearing in young age. Some CSF tests are pending which may confirm this notion. PET scan can also help. On the other hand, further CSF analysis and investigations for vasculitis like brain biopsy are not warranted. As far as treatment of dementia is concerned, it is symptomatic. I would start with donepezil 5 mg daily and after a week would add memantine 5 mg twice a day. These are the 2 types of medicines available at this time. Finally, her placement could be an issue as she would not be able to live independently Plan 05/05/23 Pt with gross disorganization b sister give hx of more gradual deterioration neuro note reviewed chart reviewed start aricept some csf results pending consider pet if available ?05/07/2023: No changes to current treatment plan.? Treatment team working on complex disposition which may include instituted living in [place] 05/08 continue tx. 05/09 continue tx. 05/10:? neuro believes Dx more likely dementia at this point, consulted with [place] [facility] who informed him protein of 88 may sometimes be seen in dementia or spinal disorders and that w/u thus far here had been thorough and adequate.? plan to treat as dementia for now.? neuro rec starting donepezil and 1 week later memantine.? donepezil started 5 days ago, memantine scheduled to be started in 3 days.? 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 per review of [email or web address], their recommended taper for this pt's duration of therapy and daily dose is to reduce by 5 mg/day every 1-2 weeks.? as her time on steroids has been relatively short, we would proceed with the more aggressive taper.? in any event, dosing to be reduced by 5 mg/day as of today. 05/11: all labs results in, positives are for elevated CSF protein/albumin and pattern of CSF protein c/w alzheimer's dementia. continue induction on cholinesterase inhibitor, pednisone taper, work on dispo planning. 05/12: no change in presentation. discharge planning aggressively underway. start memantine tomorrow. currently planning for discharge monday. 05/13: memantine started today. decrease zyprexa at HS from 5 mg to 2.5 mg in attempt to decrease overall sedation. plan to decrease prednisone by 5 mg/day on monday. 05/14: continue current mgmt. decrease prednisone by 5 mg/day as of tomorrow morning. dispo planning underway. 05/15: continue current mgmt. family meeting tomorrow with pt's daughter and HCP, bakari. 05/16: family mtg held. SW looking into rest homes, family to pursue involving extended family for a place for pt to stay. FSBS elevated, prednisone taper ongoing, SSI being used. 05/17: no change in mgmt. met with jigna ACKERMAN and MEKA bunch to discuss dispo options. rest home is not an option, STR does not appear to be likely to be an option but is being pursued today. awaiting word from daughter on option to DC to brother[facility] home. will need [facility] care daily for DM mgmt until no longer requiring SSI, however. per report, her insurance does not cover VNA. 05/18: stable presentation. requesting new MoCA and ACLS as pt's cognition seems to have improved slightly since treatment for AD began. 05/19: stable presentation. daughter working on dispo options. ACLS unchanged from prior. T/C transfer to [facility] today. continue prednisone taper monday. 05/20 Less agitated. No med changes today. 05/21: prednisone taper in process, consider transfer to [facility] 05/22/2023 Hospitalist consult regarding hyperglycemia consider stopping olanzapine and changing to antipsychotic if needed lowered tendency to increase blood sugars. Discharge planning AFTER DISCUSSION WITH MARGARITA PEREZ THE PATIENT WAS PLACED LONG-ACTING INSULIN GLARGINE 05/23: FSBS trending down. continue current mgmt. T/C change to typical anti- psychotic. case d/w Dr. Trotter. 05/24: stable. DCed zyprexa and started haldol 2 mg QHS. completed review with insurance company . [facility]. 05/25: increase HS haldol to 4 mg, otherwise continue current mgmt. stable presentation. 05/26: no change in presentation. continue current mgmt. 05/27: no change in presentation. continue current mgmt. 05/28: no change in presentation. continue current mgmt. 05/29: no change, continue. 05/30: no change, continue. 05/31: FSBS trending better, recently mostly below 200. otherwise no changes. continue current mgmt. 06/01: FSBS trending better, recently mostly below 200. otherwise no changes. continue current mgmt. daughter has not returned any of SW's calls for the past week. 06/02: decrease glargine from 10 units daily to 8 units daily as pt's FSBS have started to come under 100. decrease prednisone this monday and the following monday (orders written). pending placement and getting off of insulin. 06/03 keep same treatment. 06/04 keep same treatment 06/05/23 Pt seen cont tx plan 06/10: Continue current regimen and plans 06/11:Continue current plans and regimen Plan 1. Continue with prednisone taper. 2. Increase Aricept up to 10 mg p.o. q.h.s. today. 3. We will keep on Namenda 5 mg p.o. b.i.d. with a goal to increase it up to 10 mg on June 09 4. Discharged to [facility] when financially cleared. Reason for continued inpatient stay Substantial Risk for: inability to function Time Spent With Patient Time: Total time managing care of this patient today ____ minutes.
[2023-06-11 16:20] LABS: Glucose, Whole Blood 149 mg/dL (60-115)
[2023-06-11 18:00] VITALS: BP 129/60; PULSE 62; RESP 18; TEMP 36.8; O2SAT 94
[2023-06-11 20:12] LABS: Glucose, Whole Blood 146 mg/dL (60-115)
[2023-06-11] MEDS: HaloperidoL 1 MG TABLET 4 MG PO (21:46)
[2023-06-11] MEDS: Donepezil HCl 10 MG TABLET PO (21:47)
[2023-06-11] MEDS: predniSONE 5 MG TABLET PO (21:47)
[2023-06-12 07:37] LABS: Glucose, Whole Blood 101 mg/dL (60-115)
[2023-06-12 07:55] VITALS: BP 162/71; PULSE 61; RESP 18; TEMP 36.2; O2SAT 96
[2023-06-12] MEDS: Omeprazole 20 MG CAPSULE.DR PO (08:46)
[2023-06-12] MEDS: Memantine HCl 10 MG TABLET PO ×2 (08:46→21:10)
[2023-06-12] MEDS: Atorvastatin Calcium 40 MG TABLET PO (08:46)
[2023-06-12] MEDS: Sertraline HCL 50 MG TABLET PO (08:46)
[2023-06-12] MEDS: predniSONE 10 MG TABLET PO (08:46)
[2023-06-12] MEDS: Famotidine 20 MG TABLET PO (08:46)
[2023-06-12] MEDS: metFORMIN HCl 1,000 MG TABLET 1000 MG PO ×2 (08:46→21:10)
[2023-06-12] MEDS: Insulin Glargine,Hum.rec.anlog 100 UNIT/ML 10 ML VIAL 8 UNIT SUBCUT (08:46)
[2023-06-12] MEDS: Empagliflozin 25 MG TABLET PO (08:46)
[2023-06-12 11:31] LABS: Glucose, Whole Blood 137 mg/dL (60-115)
--- NOTE | 2023-06-12 14:43 | HO.PSYCHPN ---
Subjective Subjective Date of Service: 06/12/23 Reason For Visit: hallucinations confusion Subjective Notes: Conditional Voluntary Interim History: The nursing staff reported the patient had been cooperative and pleasant, very confused and set at times but easily redirectable. The occupational therapist reported that she participates well in groups but it is constant redirection due to his poor short-term memory. On interview the patient denies new symptoms pleasantly confused, awaiting for placement. Mental Status Exam Mental Status Exam Patient Appearance: Well Grooomed and Appropriate Patient Orientation: Person and Situation Level of Consciousness: Awake and Appropriate Patient Behavior: Guarded and Passive Mood Description: Withdrawn Affect Description: Constricted Patient Cognition Impaired: Yes Ability to Follow Directions: Good Speech Pattern: Clear Hallucinations: None Delusions: Not Present Thought Process: Distracted Thought Content: positive for Circumstantial Judgement: Fair Diagnostics Vital Signs (24Hr): Vital Signs - 24 hr 06/11/23 18:00 06/12/23 07:55 Temperature 98.2 F 97.1 F Pulse Rate 62 61 Respiratory Rate 18 18 Blood Pressure 129/60 162/71 H Pulse Oximetry 94 96 Oxygen Delivery Method Room Air Room Air BMI result Body Mass Index 29.8 Labs 04/08/23 09:08 06/10/23 07:20 Labs: Laboratory Results - last 48 hr 06/10/23 06/10/23 06/11/23 16:28 20:12 16:14 POC Glucose 158 H 147 H 149 H 06/11/23 06/12/23 06/12/23 20:00 07:29 11:19 POC Glucose 146 H 101 137 H Imaging Radiology Impressions: ITS Impressions Brain MRI 04/03/23 15:30 IMPRESSION: No acute infarct, mass lesion, intracranial hemorrhage, or evidence of hydrocephalus. Mild nonspecific T2/FLAIR hyperintensity in the cerebral white matter and danny presumably on the basis of chronic microangiopathy. Medications Medications Current Medications Acetaminophen (Acetaminophen 325 Mg Tablet) 650 mg PO Q6H PRN PRN Reason: Headache/Pain Mild Scale (1-3) Last Admin: 05/06/23 20:10 Dose: 650 mg Al Hydroxide/Mg Hydroxide (Magnesium Hydrox/Alum Hydrox 30 Ml Oral.Susp) 30 ml PO Q6H PRN PRN Reason: Heartburn/Nausea Atorvastatin Calcium (Atorvastatin Calcium 40 Mg Tablet) 40 mg PO DAILY [facility] Last Admin: 06/12/23 08:46 Dose: 40 mg Dextrose (Dextrose 50 % 25 Gm/50 Ml Syringe) 25 gm IVPUSH Q15M PRN; Protocol PRN Reason: per Hypoglycemia Standing Ord. Donepezil HCl (Donepezil Hcl 10 Mg Tablet) 10 mg PO BEDTIME [facility] Last Admin: 06/11/23 21:47 Dose: 10 mg Empagliflozin (Empagliflozin 25 Mg Tablet) 25 mg PO DAILY [facility] Last Admin: 06/12/23 08:46 Dose: 25 mg Famotidine (Famotidine 20 Mg Tablet) 20 mg PO DAILY [facility] Last Admin: 06/12/23 08:46 Dose: 20 mg Glucose (Glucose Gel 15 Gm Gel..Gram.) 15 gm PO Q15M PRN; Protocol PRN Reason: per Hypoglycemia Standing Ord. Haloperidol (Haloperidol 1 Mg Tablet) 4 mg PO BEDTIME [facility] Last Admin: 06/11/23 21:46 Dose: 4 mg Insulin Glargine (Insulin Glargine,Hum.Rec.Anlog 100 Unit/Ml 10 Ml Vial) 8 unit SUBCUT DAILY [facility] Last Admin: 06/12/23 08:46 Dose: 8 unit Insulin Human Lispro (Insulin Lispro 100 Unit/Ml 3 Ml Vial) 0 unit SUBCUT QIDACHS [facility]; Protocol Last Admin: 06/12/23 11:29 Dose: Not Given Magnesium Hydroxide (Milk Of Magnesia 30 Ml Oral.Susp) 30 ml PO DAILY PRN PRN Reason: Constipation Memantine (Memantine Hcl 10 Mg Tablet) 10 mg PO BID [facility] Last Admin: 06/12/23 08:46 Dose: 10 mg Metformin HCl (Metformin Hcl 1,000 Mg Tablet) 1,000 mg PO BID [facility] Last Admin: 06/12/23 08:46 Dose: 1,000 mg Olanzapine (Olanzapine 2.5 Mg Tablet) 2.5 mg PO Q4H PRN PRN Reason: anxiety/agitation Last Admin: 04/29/23 17:17 Dose: 2.5 mg Omeprazole (Omeprazole 20 Mg Capsule.Dr) 20 mg PO DAILY [facility] Last Admin: 06/12/23 08:46 Dose: 20 mg Prednisone (Prednisone 10 Mg Tablet) 10 mg PO DAILY [facility] Last Admin: 06/12/23 08:46 Dose: 10 mg Sertraline HCl (Sertraline Hcl 50 Mg Tablet) 50 mg PO DAILY [facility] Last Admin: 06/12/23 08:46 Dose: 50 mg Trazodone HCl (Trazodone Hcl 50 Mg Tablet) 50 mg PO BEDTIME MRX1 PRN PRN Reason: Insomnia Last Admin: 06/06/23 21:26 Dose: 50 mg Allergies Allergies Allergy/AdvReac Type Severity Reaction Status Date / Time No Known Allergies Allergy Verified 03/23/23 18:13 Assessment & Plan Assessment & Plan (1) Dementia: Status: Acute Code(s): F03.90 - Unspecified dementia, unspecified severity, without behavioral disturbance, psychotic disturbance, mood disturbance, and anxiety Assessment and Plan: 57 years old woman with somewhat rapidly progressing dementia or symptoms of dementia with CSF protein of 88 but otherwise no definite clue about her diagnosis. I discussed the case with neurology service at [facility] and they suggested that the workup has been appropriate and thorough and it was not clear if any further investigations were needed. Also, they did not have beds available for transfer According to their experience, this level of CSF protein could be seen and degenerative disorders but could also be seen in some type of spine pathology, which we have not investigated. In any case, high CSF protein without elevation of cells and without any significant brain lesions on MRI, does not suggest malignancy or vasculitis type of pathology. At this time, after discussing the case with the neurologist in [place], my recommendation is to treat her for degenerative dementia appearing in young age. Some CSF tests are pending which may confirm this notion. PET scan can also help. On the other hand, further CSF analysis and investigations for vasculitis like brain biopsy are not warranted. As far as treatment of dementia is concerned, it is symptomatic. I would start with donepezil 5 mg daily and after a week would add memantine 5 mg twice a day. These are the 2 types of medicines available at this time. Finally, her placement could be an issue as she would not be able to live independently Plan 05/05/23 Pt with gross disorganization b sister give hx of more gradual deterioration neuro note reviewed chart reviewed start aricept some csf results pending consider pet if available ?05/07/2023: No changes to current treatment plan.? Treatment team working on complex disposition which may include instituted living in [place] 05/08 continue tx. 05/09 continue tx. 05/10:? neuro believes Dx more likely dementia at this point, consulted with [place] [facility] who informed him protein of 88 may sometimes be seen in dementia or spinal disorders and that w/u thus far here had been thorough and adequate.? plan to treat as dementia for now.? neuro rec starting donepezil and 1 week later memantine.? donepezil started 5 days ago, memantine scheduled to be started in 3 days.? 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 per review of [employer], their recommended taper for this pt's duration of therapy and daily dose is to reduce by 5 mg/day every 1-2 weeks.? as her time on steroids has been relatively short, we would proceed with the more aggressive taper.? in any event, dosing to be reduced by 5 mg/day as of today. 05/11: all labs results in, positives are for elevated CSF protein/albumin and pattern of CSF protein c/w alzheimer's dementia. continue induction on cholinesterase inhibitor, pednisone taper, work on dispo planning. 05/12: no change in presentation. discharge planning aggressively underway. start memantine tomorrow. currently planning for discharge monday. 05/13: memantine started today. decrease zyprexa at HS from 5 mg to 2.5 mg in attempt to decrease overall sedation. plan to decrease prednisone by 5 mg/day on monday. 05/14: continue current mgmt. decrease prednisone by 5 mg/day as of tomorrow morning. dispo planning underway. 05/15: continue current mgmt. family meeting tomorrow with pt's daughter and HCP, bakari. 05/16: family mtg held. SW looking into rest homes, family to pursue involving extended family for a place for pt to stay. FSBS elevated, prednisone taper ongoing, SSI being used. 05/17: no change in mgmt. met with [facility] and [facility] bunch to discuss dispo options. rest home is not an option, STR does not appear to be likely to be an option but is being pursued today. awaiting word from daughter on option to DC to brother's home. will need nursing home care daily for DM mgmt until no longer requiring SSI, however. per report, her insurance does not cover VNA. 05/18: stable presentation. requesting new MoCA and ACLS as pt's cognition seems to have improved slightly since treatment for AD began. 05/19: stable presentation. daughter working on dispo options. ACLS unchanged from prior. T/C transfer to [facility] today. continue prednisone taper monday. 05/20 Less agitated. No med changes today. 05/21: prednisone taper in process, consider transfer to [facility] 05/22/2023 Hospitalist consult regarding hyperglycemia consider stopping olanzapine and changing to antipsychotic if needed lowered tendency to increase blood sugars. Discharge planning AFTER DISCUSSION WITH MARGARITA PEREZ THE PATIENT WAS PLACED LONG-ACTING INSULIN GLARGINE 05/23: FSBS trending down. continue current mgmt. T/C change to typical anti-psychotic. case d/w Dr. Trotter. 05/24: stable. DCed zyprexa and started haldol 2 mg QHS. completed review with insurance company . continue to seek placement [facility]. 05/25: increase HS haldol to 4 mg, otherwise continue current mgmt. stable presentation. 05/26: no change in presentation. continue current mgmt. 05/27: no change in presentation. continue current mgmt. 05/28: no change in presentation. continue current mgmt. 05/29: no change, continue. 05/30: no change, continue. 05/31: FSBS trending better, recently mostly below 200. otherwise no changes. continue current mgmt. 06/01: FSBS trending better, recently mostly below 200. otherwise no changes. continue current mgmt. daughter has not returned any of 's calls for the past week. 06/02: decrease glargine from 10 units daily to 8 units daily as pt's FSBS have started to come under 100. decrease prednisone this monday and the following monday (orders written). pending placement and getting off of insulin. 06/03 keep same treatment. 06/04 keep same treatment 06/05/23 Pt seen cont tx plan 06/06/2023 Consider increase Namenda transfer to [facility] for more supervision and structured care. Discharge planning would benefit from eventual locked assisted living if possible case reviewed extensively with social Work there has been difficulty coordinating with healthcare proxy Plan 1. Continue with Aricept 10 mg p.o. q.h.s., Namenda 10 mg p.o. b.i.d. to target dementia. 2. Waiting for placement Reason for continued inpatient stay Substantial Risk for: inability to function, rapid decompensation and med/psych decompensation Time Spent With Patient Time: Total time managing care of this patient today _20___ minutes.
[2023-06-12 16:13] LABS: Glucose, Whole Blood 220 mg/dL (60-115)
[2023-06-12] MEDS: Insulin Lispro 100 UNIT/ML 3 ML VIAL SUBCUT ×2 (16:50→21:11)
[2023-06-12 18:00] VITALS: BP 101/56; PULSE 65; RESP 18; TEMP 36.9; O2SAT 95
[2023-06-12 20:35] LABS: Glucose, Whole Blood 241 mg/dL (60-115)
[2023-06-12] MEDS: HaloperidoL 1 MG TABLET 4 MG PO (21:10)
[2023-06-12] MEDS: Donepezil HCl 10 MG TABLET PO (21:10)
[2023-06-12] MEDS: traZODone HCL 50 MG TABLET PO (21:31)
[2023-06-13 07:42] LABS: Glucose, Whole Blood 104 mg/dL (60-115)
[2023-06-13 08:09] VITALS: BP 142/78; PULSE 74; RESP 20; TEMP 36.2; O2SAT 97
[2023-06-13] MEDS: Omeprazole 20 MG CAPSULE.DR PO (08:22)
[2023-06-13] MEDS: metFORMIN HCl 1,000 MG TABLET 1000 MG PO ×2 (08:22→22:08)
[2023-06-13] MEDS: predniSONE 10 MG TABLET PO (08:22)
[2023-06-13] MEDS: Famotidine 20 MG TABLET PO (08:22)
[2023-06-13] MEDS: Insulin Glargine,Hum.rec.anlog 100 UNIT/ML 10 ML VIAL 8 UNIT SUBCUT (08:22)
[2023-06-13] MEDS: Empagliflozin 25 MG TABLET PO (08:22)
[2023-06-13] MEDS: Atorvastatin Calcium 40 MG TABLET PO (08:22)
[2023-06-13] MEDS: Memantine HCl 10 MG TABLET PO ×2 (08:22→22:08)
[2023-06-13] MEDS: Sertraline HCL 50 MG TABLET PO (08:22)
[2023-06-13 11:33] LABS: Glucose, Whole Blood 159 mg/dL (60-115)
[2023-06-13] MEDS: Insulin Lispro 100 UNIT/ML 3 ML VIAL SUBCUT ×3 (11:46→16:59)
--- NOTE | 2023-06-13 13:29 | P.PNPSI_ITS ---
Subjective Subjective Date of Service: 06/13/23 Reason For Visit: hallucinations confusion Subjective Notes: Conditional Voluntary Interim History: The nursing staff reported the patient had been confused overnight she could not find her own bedroom. She denies suicidal or homicidal thoughts denies psychotic symptoms. The staff noticed that last night she was more confused than usual. The social media strategist reported that the guardian will be needed for placement since the healthcare proxy has not been able to return the calls and her was been placed on a [address] [employer]. On interview the patient is pleasantly confused, easily redirectable, waiting for placement. Mental Status Exam Mental Status Exam Patient Appearance: Appropriate Patient Orientation: Person and Situation Level of Consciousness: Awake and Appropriate Patient Behavior: Guarded and Passive Mood Description: Calm Affect Description: Constricted Patient Cognition Impaired: Yes Ability to Follow Directions: Good Speech Pattern: Clear Hallucinations: None Delusions: Not Present Thought Process: Distracted and Linear Thought Content: positive for [place] and positive for Poverty of Content Judgement: Fair Diagnostics Vital Signs (24Hr): Vital Signs - 24 hr 06/12/23 18:00 06/13/23 08:09 Temperature 98.4 F 97.2 F Pulse Rate 65 74 Respiratory Rate 18 20 Blood Pressure 101/56 L 142/78 H Pulse Oximetry 95 97 Oxygen Delivery Method Room Air Room Air BMI result Body Mass Index 29.8 Labs 04/08/23 09:08 06/10/23 07:20 Labs: Laboratory Results - last 48 hr 06/11/23 06/11/23 06/12/23 16:14 20:00 07:29 POC Glucose 149 H 146 H 101 06/12/23 06/12/23 06/12/23 11:19 16:06 20:18 POC Glucose 137 H 220 H 241 H 06/13/23 06/13/23 07:37 11:29 POC Glucose 104 159 H Imaging Radiology Impressions: ITS Impressions Brain MRI 04/03/23 15:30 IMPRESSION: No acute infarct, mass lesion, intracranial hemorrhage, or evidence of hydrocephalus. Mild nonspecific T2/FLAIR hyperintensity in the cerebral white matter and danny presumably on the basis of chronic microangiopathy. Medications Medications Current Medications Acetaminophen (Acetaminophen 325 Mg Tablet) 650 mg PO Q6H PRN PRN Reason: Headache/Pain Mild Scale (1-3) Last Admin: 05/06/23 20:10 Dose: 650 mg Al Hydroxide/Mg Hydroxide (Magnesium Hydrox/Alum Hydrox 30 Ml Oral.Susp) 30 ml PO Q6H PRN PRN Reason: Heartburn/Nausea Atorvastatin Calcium (Atorvastatin Calcium 40 Mg Tablet) 40 mg PO DAILY [facility] Last Admin: 06/13/23 08:22 Dose: 40 mg Dextrose (Dextrose 50 % 25 Gm/50 Ml Syringe) 25 gm IVPUSH Q15M PRN; Protocol PRN Reason: per Hypoglycemia Standing Ord. Donepezil HCl (Donepezil Hcl 10 Mg Tablet) 10 mg PO BEDTIME [facility] Last Admin: 06/12/23 21:10 Dose: 10 mg Empagliflozin (Empagliflozin 25 Mg Tablet) 25 mg PO DAILY [facility] Last Admin: 06/13/23 08:22 Dose: 25 mg Famotidine (Famotidine 20 Mg Tablet) 20 mg PO DAILY [facility] Last Admin: 06/13/23 08:22 Dose: 20 mg Glucose (Glucose Gel 15 Gm Gel..Gram.) 15 gm PO Q15M PRN; Protocol PRN Reason: per Hypoglycemia Standing Ord. Haloperidol (Haloperidol 1 Mg Tablet) 4 mg PO BEDTIME [facility] Last Admin: 06/12/23 21:10 Dose: 4 mg Insulin Glargine (Insulin Glargine,Hum.Rec.Anlog 100 Unit/Ml 10 Ml Vial) 8 unit SUBCUT DAILY [facility] Last Admin: 06/13/23 08:22 Dose: 8 unit Insulin Human Lispro (Insulin Lispro 100 Unit/Ml 3 Ml Vial) 0 unit SUBCUT QIDACHS [facility]; Protocol Last Admin: 06/13/23 11:48 Dose: 2 unit Magnesium Hydroxide (Milk Of Magnesia 30 Ml Oral.Susp) 30 ml PO DAILY PRN PRN Reason: Constipation Memantine (Memantine Hcl 10 Mg Tablet) 10 mg PO BID [facility] Last Admin: 06/13/23 08:22 Dose: 10 mg Metformin HCl (Metformin Hcl 1,000 Mg Tablet) 1,000 mg PO BID [facility] Last Admin: 06/13/23 08:22 Dose: 1,000 mg Olanzapine (Olanzapine 2.5 Mg Tablet) 2.5 mg PO Q4H PRN PRN Reason: anxiety/agitation Last Admin: 04/29/23 17:17 Dose: 2.5 mg Omeprazole (Omeprazole 20 Mg Capsule.Dr) 20 mg PO DAILY [facility] Last Admin: 06/13/23 08:22 Dose: 20 mg Prednisone (Prednisone 10 Mg Tablet) 10 mg PO DAILY [facility] Last Admin: 06/13/23 08:22 Dose: 10 mg Sertraline HCl (Sertraline Hcl 50 Mg Tablet) 50 mg PO DAILY [facility] Last Admin: 06/13/23 08:22 Dose: 50 mg Trazodone HCl (Trazodone Hcl 50 Mg Tablet) 50 mg PO BEDTIME MRX1 PRN PRN Reason: Insomnia Last Admin: 06/12/23 21:31 Dose: 50 mg Allergies Allergies Allergy/AdvReac Type Severity Reaction Status Date / Time No Known Allergies Allergy Verified 03/23/23 18:13 Assessment & Plan Assessment & Plan (1) Dementia: Status: Acute Code(s): F03.90 - Unspecified dementia, unspecified severity, without behavioral disturbance, psychotic disturbance, mood disturbance, and anxiety Assessment and Plan: 57 years old woman with somewhat rapidly progressing dementia or symptoms of dementia with CSF protein of 88 but otherwise no definite clue about her diagnosis. I discussed the case with neurology service at [facility] and they suggested that the workup has been appropriate and thorough and it was not clear if any further investigations were needed. Also, they did not have beds available for transfer According to their experience, this level of CSF protein could be seen and degenerative disorders but could also be seen in some type of spine pathology, which we have not investigated. In any case, high CSF protein without elevation of cells and without any significant brain lesions on MRI, does not suggest malignancy or vasculitis type of pathology. At this time, after discussing the case with the neurologist in [place], my recommendation is to treat her for degenerative dementia appearing in young age. Some CSF tests are pending which may confirm this notion. PET scan can also help. On the other hand, further CSF analysis and investigations for vasculitis like brain biopsy are not warranted. As far as treatment of dementia is concerned, it is symptomatic. I would start with donepezil 5 mg daily and after a week would add memantine 5 mg twice a day. These are the 2 types of medicines available at this time. Finally, her placement could be an issue as she would not be able to live independently Plan 05/05/23 Pt with gross disorganization b sister give hx of more gradual deterioration neuro note reviewed chart reviewed start aricept some csf results pending consider pet if available ?05/07/2023: No changes to current treatment plan.? Treatment team working on complex disposition which may include instituted living in [place] 05/08 continue tx. 05/09 continue tx. 05/10:? neuro believes Dx more likely dementia at this point, consulted with [place] neuro who informed him protein of 88 may sometimes be seen in dementia or spinal disorders and that w/u thus far here had been thorough and adequate.? plan to t reat as dementia for now.? neuro rec starting donepezil and 1 week later memantine.? donepezil started 5 days ago, memantine scheduled to be started in 3 days.? 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 per review of [employer], their recommended taper for this pt's duration of therapy and daily dose is to reduce by 5 mg/day every 1-2 weeks.? as her time on steroids has been relatively short, we would proceed with the more aggressive taper.? in any event, dosing to be reduced by 5 mg/day as of today. 05/11: all labs results in, positives are for elevated CSF protein/albumin and pattern of CSF protein c/w alzheimer's dementia. continue induction on cholinesterase inhibitor, pednisone taper, work on dispo planning. 05/12: no change in presentation. discharge planning aggressively underway. start memantine tomorrow. currently planning for discharge monday. 05/13: memantine started today. decrease zyprexa at HS from 5 mg to 2.5 mg in att empt to decrease overall sedation. plan to decrease prednisone by 5 mg/day on monday. 05/14: continue current mgmt. decrease prednisone by 5 mg/day as of tomorrow morning. dispo planning underway. 05/15: continue current mgmt. family meeting tomorrow with pt's daughter and HCP, bakari. 05/16: family mtg held. SW looking into rest homes, family to pursue involving extended family for a place for pt to stay. FSBS elevated, prednisone taper ongoing, SSI being used. 05/17: no change in mgmt. met with [facility] to discuss dispo options. rest home is not an option, STR does not appear to be likely to be an option but is being pursued today. awaiting word from daughter on option to DC to brother's home. will need prison care daily for DM mgmt until no longer requiring SSI, however. per report, her insurance does not cover VNA. 05/18: stable presentation. requesting new MoCA and ACLS as pt's cognition seems to have improved slightly since treatment for AD began. 05/19: stable presentation. daughter working on dispo options. ACLS unchanged from prior. T/C transfer to [facility] today. continue prednisone taper monday. 05/20 Less agitated. No med changes today. 05/21: prednisone taper in process, [facility] 05/22/2023 Hospitalist consult regarding hyperglycemia consider stopping olanzapine and changing to antipsychotic if needed lowered tendency to increase blood sugars. Discharge planning AFTER DISCUSSION WITH MARGARITA PEREZ THE PATIENT WAS PLACED LONG-ACTING INSULIN GLARGINE 05/23: FSBS trending down. continue current mgmt. T/C change to typical anti- psychotic. case d/w Dr. Trotter. 05/24: stable. DCed zyprexa and started haldol 2 mg QHS. completed review with insurance company . continue to [facility]. 05/25: increase HS haldol to 4 mg, otherwise continue current mgmt. stable presentation. 05/26: no change in presentation. continue current mgmt. 05/27: no change in presentation. continue current mgmt. 05/28: no change in presentation. continue current mgmt. 05/29: no change, continue. 05/30: no change, continue. 05/31: FSBS trending better, recently mostly below 200. otherwise no changes. continue current mgmt. 06/01: FSBS trending better, recently mostly below 200. otherwise no changes. continue current mgmt. daughter has not returned any of 's calls for the past week. 06/02: decrease glargine from 10 units daily to 8 units daily as pt's FSBS have started to come under 100. decrease prednisone this monday and the following monday (orders written). pending placement and getting off of insulin. 06/03 keep same treatment. 06/04 keep same treatment 06/05/23 Pt seen cont tx plan 06/06/2023 Consider increase Namenda transfer to [facility] for more supervision and structured care. Discharge planning would benefit from eventual locked assisted living if possible case reviewed extensively with social Work there has been difficulty coordinating with healthcare proxy Plan 1. Continue with Aricept 10 mg p.o. q.h.s., Namenda 10 mg p.o. b.i.d. to target dementia. 2. Waiting for placement Reason for continued inpatient stay Substantial Risk for: inability to function, rapid decompensation and med/psych decompensation Time Spent With Patient Time: Total time managing care of this patient today __20__ minutes.
[2023-06-13 16:12] LABS: Glucose, Whole Blood 151 mg/dL (60-115)
[2023-06-13 18:00] VITALS: BP 119/58; PULSE 68; RESP 17; TEMP 36.1; O2SAT 96
[2023-06-13 20:01] LABS: Glucose, Whole Blood 119 mg/dL (60-115)
[2023-06-13] MEDS: HaloperidoL 1 MG TABLET 4 MG PO (22:07)
[2023-06-13] MEDS: Donepezil HCl 10 MG TABLET PO (22:08)
[2023-06-14 07:33] LABS: Glucose, Whole Blood 82 mg/dL (60-115)
[2023-06-14 08:31] VITALS: BP 147/67; PULSE 69; RESP 19; TEMP 36.7; O2SAT 99
[2023-06-14] MEDS: Sertraline HCL 50 MG TABLET PO (08:32)
[2023-06-14] MEDS: Omeprazole 20 MG CAPSULE.DR PO (08:33)
[2023-06-14] MEDS: Memantine HCl 10 MG TABLET PO ×2 (08:33→20:40)
[2023-06-14] MEDS: metFORMIN HCl 1,000 MG TABLET 1000 MG PO ×2 (08:33→20:40)
[2023-06-14] MEDS: predniSONE 10 MG TABLET PO (08:33)
[2023-06-14] MEDS: Atorvastatin Calcium 40 MG TABLET PO (08:33)
[2023-06-14] MEDS: Empagliflozin 25 MG TABLET PO (08:33)
[2023-06-14] MEDS: Insulin Glargine,Hum.rec.anlog 100 UNIT/ML 10 ML VIAL 8 UNIT SUBCUT (08:34)
[2023-06-14] MEDS: Famotidine 20 MG TABLET PO (08:34)
--- NOTE | 2023-06-14 10:17 | HO.PSYCHPN ---
Subjective Subjective Date of Service: 06/14/23 Reason For Visit: hallucinations confusion Subjective Notes: Conditional Voluntary Interim History: The nursing staff reports no changes in her mental status she was seen in the common areas on mealtime. The occupational therapist reported that she is more withdrawn on groups. The neonatal social worker reported that we could not contact her healthcare proxy and it seems that she had been abandoned in the hospital. Where filing for guardianship at this point. On interview the patient remains pleasantly confused but dysphoric. I discussed with her the possibility of increasing Zoloft to target depression. She agreed on the plan but she looks pleasantly confused Mental Status Exam Mental Status Exam Patient Appearance: Well Grooomed and Appropriate Patient Orientation: Person and Situation Level of Consciousness: Awake and Appropriate Patient Behavior: Guarded and Passive Mood Description: Calm Affect Description: Constricted Patient Cognition Impaired: Yes Ability to Follow Directions: Good Speech Pattern: Clear Hallucinations: None Delusions: Not Present Thought Process: Distracted and Slowed Thinking Thought Content: positive for [place] and positive for Poverty of Content Judgement: Fair Diagnostics Vital Signs (24Hr): Vital Signs - 24 hr 06/13/23 18:00 06/14/23 08:31 Temperature 96.9 F 98.1 F Pulse Rate 68 69 Respiratory Rate 17 19 Blood Pressure 119/58 L 147/67 H Pulse Oximetry 96 99 Oxygen Delivery Method Room Air BMI result Body Mass Index 29.8 Labs 04/08/23 09:08 06/10/23 07:20 Labs: Laboratory Results - last 48 hr 06/12/23 06/12/23 06/12/23 11:19 16:06 20:18 POC Glucose 137 H 220 H 241 H 06/13/23 06/13/23 06/13/23 07:37 11:29 16:04 POC Glucose 104 159 H 151 H 06/13/23 06/14/23 19:50 07:21 POC Glucose 119 H 82 Imaging Radiology Impressions: ITS Impressions Brain MRI 04/03/23 15:30 IMPRESSION: No acute infarct, mass lesion, intracranial hemorrhage, or evidence of hydrocephalus. Mild nonspecific T2/FLAIR hyperintensity in the cerebral white matter and danny presumably on the basis of chronic microangiopathy. Medications Medications Current Medications Acetaminophen (Acetaminophen 325 Mg Tablet) 650 mg PO Q6H PRN PRN Reason: Headache/Pain Mild Scale (1-3) Last Admin: 05/06/23 20:10 Dose: 650 mg Al Hydroxide/Mg Hydroxide (Magnesium Hydrox/Alum Hydrox 30 Ml Oral.Susp) 30 ml PO Q6H PRN PRN Reason: Heartburn/Nausea Atorvastatin Calcium (Atorvastatin Calcium 40 Mg Tablet) 40 mg PO DAILY [facility] Last Admin: 06/14/23 08:33 Dose: 40 mg Dextrose (Dextrose 50 % 25 Gm/50 Ml Syringe) 25 gm IVPUSH Q15M PRN; Protocol PRN Reason: per Hypoglycemia Standing Ord. Donepezil HCl (Donepezil Hcl 10 Mg Tablet) 10 mg PO BEDTIME [facility] Last Admin: 06/13/23 22:08 Dose: 10 mg Empagliflozin (Empagliflozin 25 Mg Tablet) 25 mg PO DAILY [facility] Last Admin: 06/14/23 08:33 Dose: 25 mg Famotidine (Famotidine 20 Mg Tablet) 20 mg PO DAILY [facility] Last Admin: 06/14/23 08:34 Dose: 20 mg Glucose (Glucose Gel 15 Gm Gel..Gram.) 15 gm PO Q15M PRN; Protocol PRN Reason: per Hypoglycemia Standing Ord. Haloperidol (Haloperidol 1 Mg Tablet) 4 mg PO BEDTIME [facility] Last Admin: 06/13/23 22:07 Dose: 4 mg Insulin Glargine (Insulin Glargine,Hum.Rec.Anlog 100 Unit/Ml 10 Ml Vial) 8 unit SUBCUT DAILY [facility] Last Admin: 06/14/23 08:34 Dose: 8 unit Insulin Human Lispro (Insulin Lispro 100 Unit/Ml 3 Ml Vial) 0 unit SUBCUT QIDACHS [facility]; Protocol Last Admin: 06/14/23 08:34 Dose: Not Given Magnesium Hydroxide (Milk Of Magnesia 30 Ml Oral.Susp) 30 ml PO DAILY PRN PRN Reason: Constipation Memantine (Memantine Hcl 10 Mg Tablet) 10 mg PO BID [facility] Last Admin: 06/14/23 08:33 Dose: 10 mg Metformin HCl (Metformin Hcl 1,000 Mg Tablet) 1,000 mg PO BID [facility] Last Admin: 06/14/23 08:33 Dose: 1,000 mg Olanzapine (Olanzapine 2.5 Mg Tablet) 2.5 mg PO Q4H PRN PRN Reason: anxiety/agitation Last Admin: 04/29/23 17:17 Dose: 2.5 mg Omeprazole (Omeprazole 20 Mg Capsule.Dr) 20 mg PO DAILY [facility] Last Admin: 06/14/23 08:33 Dose: 20 mg Prednisone (Prednisone 10 Mg Tablet) 10 mg PO DAILY [facility] Last Admin: 06/14/23 08:33 Dose: 10 mg Sertraline HCl (Sertraline Hcl 100 Mg Tablet) 100 mg PO DAILY [facility] Last Admin: 06/14/23 09:35 Dose: Not Given Trazodone HCl (Trazodone Hcl 50 Mg Tablet) 50 mg PO BEDTIME MRX1 PRN PRN Reason: Insomnia Last Admin: 06/12/23 21:31 Dose: 50 mg Allergies Allergies Allergy/AdvReac Type Severity Reaction Status Date / Time No Known Allergies Allergy Verified 03/23/23 18:13 Assessment & Plan Assessment & Plan (1) Dementia: Status: Acute Code(s): F03.90 - Unspecified dementia, unspecified severity, without behavioral disturbance, psychotic disturbance, mood disturbance, and anxiety Assessment and Plan: 57 years old woman with somewhat rapidly progressing dementia or symptoms of dementia with CSF protein of 88 but otherwise no definite clue about her diagnosis. I discussed the case with neurology service at [facility] and they suggested that the workup has been appropriate and thorough and it was not clear if any further investigations were needed. Also, they did not have beds available for transfer According to their experience, this level of CSF protein could be seen and degenerative disorders but could also be seen in some type of spine pathology, which we have not investigated. In any case, high CSF protein without elevation of cells and without any significant brain lesions on MRI, does not suggest malignancy or vasculitis type of pathology. At this time, after discussing the case with the neurologist in [place], my recommendation is to treat her for degenerative dementia appearing in young age. Some CSF tests are pending which may confirm this notion. PET scan can also help. On the other hand, further CSF analysis and investigations for vasculitis like brain biopsy are not warranted. As far as treatment of dementia is concerned, it is symptomatic. I would start with donepezil 5 mg daily and after a week would add memantine 5 mg twice a day. These are the 2 types of medicines available at this time. Finally, her placement could be an issue as she would not be able to live independently Plan 05/05/23 Pt with gross disorganization b sister give hx of more gradual deterioration neuro note reviewed chart reviewed start aricept some csf results pending consider pet if available ?05/07/2023: No changes to current treatment plan.? Treatment team working on complex disposition which may include instituted living in [place] 05/08 continue tx. 05/09 continue tx. 05/10:? neuro believes Dx more likely dementia at this point, consulted with [place] neuro who informed him protein of 88 may sometimes be seen in dementia or spinal disorders and that w/u thus far here had been thorough and adequate.? plan to treat as dementia for now.? neuro rec starting donepezil and 1 week later memantine.? donepezil started 5 days ago, memantine scheduled to be started in 3 days.? 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 per review of [employer], their recommended taper for this pt's duration of therapy and daily dose is to reduce by 5 mg/day every 1-2 weeks.? as her time on steroids has been relatively short, we would proceed with the more aggressive taper.? in any event, dosing to be reduced by 5 mg/day as of today. 05/11: all labs results in, positives are for elevated CSF protein/albumin and pattern of CSF protein c/w alzheimer's dementia. continue induction on cholinesterase inhibitor, pednisone taper, work on dispo planning. 05/12: no change in presentation. discharge planning aggressively underway. start memantine tomorrow. currently planning for discharge monday. 05/13: memantine started today. decrease zyprexa at HS from 5 mg to 2.5 mg in attempt to decrease overall sedation. plan to decrease prednisone by 5 mg/day on monday. 05/14: continue current mgmt. decrease prednisone by 5 mg/day as of tomorrow morning. dispo planning underway. 05/15: continue current mgmt. family meeting tomorrow with pt's daughter and HCP, bakari. 05/16: family mtg held. SW looking into rest homes, family to pursue involving extended family for a place for pt to stay. FSBS elevated, prednisone taper ongoing, SSI being used. 05/17: no change in mgmt. met with [facility] to discuss dispo options. rest home is not an option, STR does not appear to be likely to be an option but is being pursued today. awaiting word from daughter on option to DC to brother's home. will need [facility] care daily for DM mgmt until no longer requiring SSI, however. per report, her insurance does not cover VNA. 05/18: stable presentation. requesting new MoCA and ACLS as pt's cognition seems to have improved slightly since treatment for AD began. 05/19: stable presentation. daughter working on dispo options. ACLS unchanged from prior. T/C transfer to [facility] today. continue prednisone taper monday. 05/20 Less agitated. No med changes today. 05/21: prednisone taper in process, [facility]23 Hospitalist consult regarding hyperglycemia consider stopping olanzapine and changing to antipsychotic if needed lowered tendency to increase blood sugars. Discharge planning AFTER DISCUSSION WITH MARGARITA PEREZ THE PATIENT WAS PLACED LONG-ACTING INSULIN GLARGINE 05/23: FSBS trending down. continue current mgmt. T/C change to typical anti-psychotic. case d/w Dr. Trotter. 05/24: stable. DCed zyprexa and started haldol 2 mg QHS. completed review with insurance [employer] . [facility]. 05/25: increase HS haldol to 4 mg, otherwise continue current mgmt. stable presentation. 05/26: no change in presentation. continue current mgmt. 05/27: no change in presentation. continue current mgmt. 05/28: no change in presentation. continue current mgmt. 05/29: no change, continue. 05/30: no change, continue. 05/31: FSBS trending better, recently mostly below 200. otherwise no changes. continue current mgmt. 06/01: FSBS trending better, recently mostly below 200. otherwise no changes. continue current mgmt. daughter has not returned any of 's calls for the past week. 06/02: decrease glargine from 10 units daily to 8 units daily as pt's FSBS have started to come under 100. decrease prednisone this monday and the following monday (orders written). pending placement and getting off of insulin. 06/03 keep same treatment. 06/04 keep same treatment 06/05/23 Pt seen cont tx plan 06/06/2023 Consider increase Namenda transfer to [facility] for more supervision and structured care. Discharge planning would benefit from eventual locked assisted living if possible case reviewed extensively with social Work there has been difficulty coordinating with healthcare proxy Plan 1. Continue with Aricept 10 mg p.o. q.h.s., Namenda 10 mg p.o. b.i.d. to target dementia. 2. Increase all of up to 100 mg p.o. daily on June 14. 3. Waiting for placement Reason for continued inpatient stay Substantial Risk for: inability to function, rapid decompensation and med/psych decompensation Time Spent With Patient Time: Total time managing care of this patient today _20___ minutes.
[2023-06-14 11:31] LABS: Glucose, Whole Blood 181 mg/dL (60-115)
[2023-06-14] MEDS: Insulin Lispro 100 UNIT/ML 3 ML VIAL SUBCUT (11:52)
[2023-06-14 16:42] LABS: Glucose, Whole Blood 136 mg/dL (60-115)
[2023-06-14 19:40] VITALS: BP 116/58; PULSE 68; RESP 18; TEMP 36.8; O2SAT 97
[2023-06-14 20:03] LABS: Glucose, Whole Blood 146 mg/dL (60-115)
[2023-06-14] MEDS: Donepezil HCl 10 MG TABLET PO (20:40)
[2023-06-14] MEDS: HaloperidoL 1 MG TABLET 4 MG PO (20:41)
[2023-06-15 07:00] VITALS: BMI 28.9
[2023-06-15 07:50] LABS: Glucose, Whole Blood 92 mg/dL (60-115)
[2023-06-15] MEDS: Insulin Glargine,Hum.rec.anlog 100 UNIT/ML 10 ML VIAL 8 UNIT SUBCUT (08:34)
[2023-06-15] MEDS: Famotidine 20 MG TABLET PO (08:35)
[2023-06-15] MEDS: metFORMIN HCl 1,000 MG TABLET 1000 MG PO ×2 (08:35→20:38)
[2023-06-15] MEDS: Omeprazole 20 MG CAPSULE.DR PO (08:35)
[2023-06-15] MEDS: Empagliflozin 25 MG TABLET PO (08:35)
[2023-06-15] MEDS: Memantine HCl 10 MG TABLET PO ×2 (08:35→20:38)
[2023-06-15] MEDS: Atorvastatin Calcium 40 MG TABLET PO (08:35)
[2023-06-15] MEDS: predniSONE 10 MG TABLET PO (08:36)
[2023-06-15] MEDS: Sertraline HCL 100 MG TABLET PO (08:36)
[2023-06-15 09:03] VITALS: BP 144/69; PULSE 70; RESP 18; TEMP 36.8; O2SAT 97
[2023-06-15 11:37] LABS: Glucose, Whole Blood 115 mg/dL (60-115)
--- NOTE | 2023-06-15 12:57 | P.PNPSI_ITS ---
Subjective Subjective Date of Service: 06/15/23 Reason For Visit: hallucinations confusion Subjective Notes: Conditional Voluntary Guardianship: Yes (Guardianship paperwork was filed today) Interim History: The nursing staff reported the patient had been pleasant and cooperative, she had been attended to groups but she is severely confused. On interview the patient denies new symptoms waiting for placement. Today we filed the paperwork for guardianship. Practically, she had been abandoned in the hospital since we cannot contact her healthcare proxy and her has being sent on a Section 35. No changes in her mental status waiting for placement. Mental Status Exam Mental Status Exam Patient Appearance: Well Grooomed and Appropriate Patient Orientation: Person and Situation Level of Consciousness: Awake and Appropriate Patient Behavior: Guarded and Passive Mood Description: Calm Affect Description: Constricted Patient Cognition Impaired: Yes Ability to Follow Directions: Good Speech Pattern: Clear Hallucinations: None Delusions: Not Present Thought Process: Distracted Thought Content: positive for [place] and positive for Poverty of Content Judgement: Poor Diagnostics Vital Signs (24Hr): Vital Signs - 24 hr 06/14/23 19:40 06/15/23 09:03 Temperature 98.2 F 98.3 F Pulse Rate 68 70 Respiratory Rate 18 18 Blood Pressure 116/58 L 144/69 H Pulse Oximetry 97 97 Oxygen Delivery Method Room Air Room Air BMI result Body Mass Index 28.9 Labs 04/08/23 09:08 06/10/23 07:20 Labs: Laboratory Results - last 48 hr 06/13/23 06/13/23 06/14/23 16:04 19:50 07:21 POC Glucose 151 H 119 H 82 06/14/23 06/14/23 06/14/23 11:25 16:32 19:55 POC Glucose 181 H 136 H 146 H 06/15/23 06/15/23 07:45 11:28 POC Glucose 92 115 Imaging Radiology Impressions: ITS Impressions Brain MRI 04/03/23 15:30 IMPRESSION: No acute infarct, mass lesion, intracranial hemorrhage, or evidence of hydrocephalus. Mild nonspecific T2/FLAIR hyperintensity in the cerebral white matter and danny presumably on the basis of chronic microangiopathy. Medications Medications Current Medications Acetaminophen (Acetaminophen 325 Mg Tablet) 650 mg PO Q6H PRN PRN Reason: Headache/Pain Mild Scale (1-3) Last Admin: 05/06/23 20:10 Dose: 650 mg Al Hydroxide/Mg Hydroxide (Magnesium Hydrox/Alum Hydrox 30 Ml Oral.Susp) 30 ml PO Q6H PRN PRN Reason: Heartburn/Nausea Atorvastatin Calcium (Atorvastatin Calcium 40 Mg Tablet) 40 mg PO DAILY [facility] Last Admin: 06/15/23 08:35 Dose: 40 mg Dextrose (Dextrose 50 % 25 Gm/50 Ml Syringe) 25 gm IVPUSH Q15M PRN; Protocol PRN Reason: per Hypoglycemia Standing Ord. Donepezil HCl (Donepezil Hcl 10 Mg Tablet) 10 mg PO BEDTIME [facility] Last Admin: 06/14/23 20:40 Dose: 10 mg Empagliflozin (Empagliflozin 25 Mg Tablet) 25 mg PO DAILY [facility] Last Admin: 06/15/23 08:35 Dose: 25 mg Famotidine (Famotidine 20 Mg Tablet) 20 mg PO DAILY [facility] Last Admin: 06/15/23 08:35 Dose: 20 mg Glucose (Glucose Gel 15 Gm Gel..Gram.) 15 gm PO Q15M PRN; Protocol PRN Reason: per Hypoglycemia Standing Ord. Haloperidol (Haloperidol 1 Mg Tablet) 4 mg PO BEDTIME [facility] Last Admin: 06/14/23 20:41 Dose: 4 mg Insulin Glargine (Insulin Glargine,Hum.Rec.Anlog 100 Unit/Ml 10 Ml Vial) 8 unit SUBCUT DAILY [facility] Last Admin: 06/15/23 08:34 Dose: 8 unit Insulin Human Lispro (Insulin Lispro 100 Unit/Ml 3 Ml Vial) 0 unit SUBCUT QIDACHS [facility]; Protocol Last Admin: 06/15/23 11:42 Dose: Not Given Magnesium Hydroxide (Milk Of Magnesia 30 Ml Oral.Susp) 30 ml PO DAILY PRN PRN Reason: Constipation Memantine (Memantine Hcl 10 Mg Tablet) 10 mg PO BID [facility] Last Admin: 06/15/23 08:35 Dose: 10 mg Metformin HCl (Metformin Hcl 1,000 Mg Tablet) 1,000 mg PO BID [facility] Last Admin: 06/15/23 08:35 Dose: 1,000 mg Olanzapine (Olanzapine 2.5 Mg Tablet) 2.5 mg PO Q4H PRN PRN Reason: anxiety/agitation Last Admin: 04/29/23 17:17 Dose: 2.5 mg Omeprazole (Omeprazole 20 Mg Capsule.Dr) 20 mg PO DAILY [facility] Last Admin: 06/15/23 08:35 Dose: 20 mg Prednisone (Prednisone 10 Mg Tablet) 10 mg PO DAILY [facility] Last Admin: 06/15/23 08:36 Dose: 10 mg Sertraline HCl (Sertraline Hcl 100 Mg Tablet) 100 mg PO DAILY [facility] Last Admin: 06/15/23 08:36 Dose: 100 mg Trazodone HCl (Trazodone Hcl 50 Mg Tablet) 50 mg PO BEDTIME MRX1 PRN PRN Reason: Insomnia Last Admin: 06/12/23 21:31 Dose: 50 mg Allergies Allergies Allergy/AdvReac Type Severity Reaction Status Date / Time No Known Allergies Allergy Verified 03/23/23 18:13 Assessment & Plan Assessment & Plan (1) Dementia: Status: Acute Code(s): F03.90 - Unspecified dementia, unspecified severity, without behavioral disturbance, psychotic disturbance, mood disturbance, and anxiety Assessment and Plan: 57 years old woman with somewhat rapidly progressing dementia or symptoms of dementia with CSF protein of 88 but otherwise no definite clue about her diagnosis. I discussed the case with neurology service at [facility] and they suggested that the workup has been appropriate and thorough and it was not clear if any further investigations were needed. Also, they did not have beds available for transfer According to their experience, this level of CSF protein could be seen and degenerative disorders but could also be seen in some type of spine pathology, which we have not investigated. In any case, high CSF protein without elevation of cells and without any significant brain lesions on MRI, does not suggest malignancy or vasculitis type of pathology. At this time, after discussing the case with the neurologist in [place], my recommendation is to treat her for degenerative dementia appearing in young age. Some CSF tests are pending which may confirm this notion. PET scan can also help. On the other hand, further CSF analysis and investigations for vasculitis like brain biopsy are not warranted. As far as treatment of dementia is concerned, it is symptomatic. I would start with donepezil 5 mg daily and after a week would add memantine 5 mg twice a day. These are the 2 types of medicines available at this time. Finally, her placement could be an issue as she would not be able to live independently Plan 05/05/23 Pt with gross disorganization b sister give hx of more gradual deterioration n euro note reviewed chart reviewed start aricept some csf results pending consider pet if available ?05/07/2023: No changes to current treatment plan.? Treatment team working on complex disposition which may include instituted living in [place] 05/08 continue tx. 05/09 continue tx. 05/10:? neuro believes Dx more likely dementia at this point, consulted with [facility] who informed him protein of 88 may sometimes be seen in dementia or spinal disorders and that w/u thus far here had been thorough and adequate.? plan to treat as dementia for now.? neuro rec starting donepezil and 1 week later meman gladys.? donepezil started 5 days ago, memantine scheduled to be started in 3 days.? 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 per review of [facility], their recommended taper for this pt's duration of therapy and daily dose is to reduce by 5 mg/day every 1-2 weeks.? as her time on steroids has been relatively short, we would proceed with the more aggressive taper.? in any event, dosing to be reduced by 5 mg/day as of today. 05/11: all labs results in, positives are for elevated CSF protein/albumin and pattern of CSF protein c/w alzheimer's dementia. continue induction on cholinesterase inhibitor, pednisone taper, work on dispo planning. 05/12: no change in presentation. discharge planning aggressively underway. start memantine tomorrow. currently planning for discharge monday. 05/13: memantine started today. decrease zyprexa at HS from 5 mg to 2.5 mg in attempt to decrease overall sedation. plan to decrease prednisone by 5 mg/day on monday. 05/14: continue current mgmt. decrease prednisone by 5 mg/day as of tomorrow morning. dispo planning underway. 05/15: continue current mgmt. family meeting tomorrow with pt's daughter and HC bakari Hernandez. 05/16: family mtg held. SW looking into rest homes, family to pursue involving extended family for a place for pt to stay. FSBS elevated, prednisone taper ongoing, SSI being used. 05/17: no change in mgmt. met with [facility] and [facility] bunch to discuss dispo options. rest home is not an option, STR does not appear to be likely to be an option but is being pursued today. awaiting word from daughter on option to DC to brother's home. will need [facility] care daily for DM mgmt until no longer requiring SSI, however. per report, her insurance does not cover VNA. 05/18: stable presentation. requesting new MoCA and ACLS as pt's cognition seems to have improved slightly since treatment for AD began. 05/19: stable presentation. daughter working on dispo options. ACLS unchanged from prior. T/C transfer to [facility] today. continue prednisone taper monday. 05/20 Less agitated. No med changes today. 05/21: prednisone taper in process, consider transfer to [facility] 05/22/2023 Hospitalist consult regarding hyperglycemia consider stopping olanzapine and changing to antipsychotic if needed lowered tendency to increase blood sugars. Discharge planning AFTER DISCUSSION WITH MARGARITA PEREZ THE PATIENT WAS PLACED LONG-ACTING INSULIN GLARGINE 05/23: FSBS trending down. continue current mgmt. T/C change to typical anti- psychotic. case d/w Dr. Trotter. 05/24: stable. DCed zyprexa and started haldol 2 mg QHS. completed review with insurance company . [facility] 05/25: increase HS haldol to 4 mg, otherwise continue current mgmt. stable presentation. 05/26: no change in presentation. continue current mgmt. 05/27: no change in presentation. continue current mgmt. 05/28: no change in presentation. continue current mgmt. 05/29: no change, continue. 05/30: no change, continue. 05/31: FSBS trending better, recently mostly below 200. otherwise no changes. continue current mgmt. 06/01: FSBS trending better, recently mostly below 200. otherwise no changes. continue current mgmt. daughter has not returned any of 's calls for the past week. 06/02: decrease glargine from 10 units daily to 8 units daily as pt's FSBS have started to come under 100. decrease prednisone this monday and the following monday (orders written). pending placement and getting off of insulin. 06/03 keep same treatment. 06/04 keep same treatment 06/05/23 Pt seen cont tx plan 06/06/2023 Consider increase Namenda transfer to [facility] for more supervision and structured care. Discharge planning would benefit from eventual locked assisted living if possible case reviewed extensively with social Work there has been difficulty coordinating with healthcare proxy Plan 1. Continue with Aricept 10 mg p.o. q.h.s., Namenda 10 mg p.o. b.i.d. to target dementia. 2. Increase all of up to 100 mg p.o. daily on June 14. 3. Waiting for placement. 4. Filing for guardianship. Reason for continued inpatient stay Substantial Risk for: inability to function, rapid decompensation and med/psych decompensation Time Spent With Patient Time: Total time managing care of this patient today __20__ minutes.
[2023-06-15 16:32] LABS: Glucose, Whole Blood 135 mg/dL (60-115)
[2023-06-15 20:06] VITALS: BP 128/69; PULSE 72; RESP 18; TEMP 36.8; O2SAT 97
[2023-06-15 20:26] LABS: Glucose, Whole Blood 108 mg/dL (60-115)
[2023-06-15] MEDS: Donepezil HCl 10 MG TABLET PO (20:38)
[2023-06-15] MEDS: HaloperidoL 1 MG TABLET 4 MG PO (20:38)
[2023-06-16 08:00] VITALS: BP 146/67; PULSE 70; RESP 16; TEMP 36.4; O2SAT 96
[2023-06-16 08:03] LABS: Glucose, Whole Blood 78 mg/dL (60-115)
[2023-06-16] MEDS: Insulin Glargine,Hum.rec.anlog 100 UNIT/ML 10 ML VIAL 8 UNIT SUBCUT (08:50)
[2023-06-16] MEDS: Omeprazole 20 MG CAPSULE.DR PO (08:51)
[2023-06-16] MEDS: Famotidine 20 MG TABLET PO (08:51)
[2023-06-16] MEDS: Atorvastatin Calcium 40 MG TABLET PO (08:51)
[2023-06-16] MEDS: Empagliflozin 25 MG TABLET PO (08:52)
[2023-06-16] MEDS: predniSONE 10 MG TABLET PO (08:52)
[2023-06-16] MEDS: metFORMIN HCl 1,000 MG TABLET 1000 MG PO ×2 (08:52→20:59)
[2023-06-16] MEDS: Sertraline HCL 100 MG TABLET PO (08:52)
[2023-06-16] MEDS: Memantine HCl 10 MG TABLET PO ×2 (08:52→20:59)
[2023-06-16 11:53] LABS: Glucose, Whole Blood 144 mg/dL (60-115)
--- NOTE | 2023-06-16 12:54 | P.PNPSI_ITS ---
Subjective Subjective Date of Service: 06/16/23 Reason For Visit: hallucinations confusion Subjective Notes: Conditional Voluntary Interim History: The nursing staff reported no changes in her mental status she had been quiet, cooperative with flat affect. She slept well last night. We filed for guardianship and the process has started. On interview the patient denies new symptoms pleasant and cooperative. Very confused. Mental Status Exam Mental Status Exam Patient Appearance: Well Grooomed and Appropriate Patient Orientation: Person and Situation Level of Consciousness: Awake and Appropriate Patient Behavior: Cooperative and Passive Mood Description: Withdrawn Affect Description: Constricted Patient Cognition Impaired: Yes Ability to Follow Directions: Good Speech Pattern: Clear Hallucinations: None Delusions: Not Present Thought Process: Linear Thought Content: positive for Circumstantial Judgement: Fair Diagnostics Vital Signs (24Hr): Vital Signs - 24 hr 06/15/23 20:06 06/16/23 08:00 Temperature 98.3 F 97.6 F Pulse Rate 72 70 Respiratory Rate 18 16 Blood Pressure 128/69 146/67 H Pulse Oximetry 97 96 Oxygen Delivery Method Room Air Room Air BMI result Body Mass Index 28.9 Labs 04/08/23 09:08 06/10/23 07:20 Labs: Laboratory Results - last 48 hr 06/14/23 06/14/23 06/15/23 16:32 19:55 07:45 POC Glucose 136 H 146 H 92 06/15/23 06/15/23 06/15/23 11:28 16:23 20:19 POC Glucose 115 135 H 108 06/16/23 06/16/23 07:56 11:48 POC Glucose 78 144 H Imaging Radiology Impressions: ITS Impressions Brain MRI 04/03/23 15:30 IMPRESSION: No acute infarct, mass lesion, intracranial hemorrhage, or evidence of hydrocephalus. Mild nonspecific T2/FLAIR hyperintensity in the cerebral white matter and danny presumably on the basis of chronic microangiopathy. Medications Medications Current Medications Acetaminophen (Acetaminophen 325 Mg Tablet) 650 mg PO Q6H PRN PRN Reason: Headache/Pain Mild Scale (1-3) Last Admin: 05/06/23 20:10 Dose: 650 mg Al Hydroxide/Mg Hydroxide (Magnesium Hydrox/Alum Hydrox 30 Ml Oral.Susp) 30 ml PO Q6H PRN PRN Reason: Heartburn/Nausea Atorvastatin Calcium (Atorvastatin Calcium 40 Mg Tablet) 40 mg PO DAILY [facility] Last Admin: 06/16/23 08:51 Dose: 40 mg Dextrose (Dextrose 50 % 25 Gm/50 Ml Syringe) 25 gm IVPUSH Q15M PRN; Protocol PRN Reason: per Hypoglycemia Standing Ord. Donepezil HCl (Donepezil Hcl 10 Mg Tablet) 10 mg PO BEDTIME [facility] Last Admin: 06/15/23 20:38 Dose: 10 mg Empagliflozin (Empagliflozin 25 Mg Tablet) 25 mg PO DAILY [facility] Last Admin: 06/16/23 08:52 Dose: 25 mg Famotidine (Famotidine 20 Mg Tablet) 20 mg PO DAILY [facility] Last Admin: 06/16/23 08:51 Dose: 20 mg Glucose (Glucose Gel 15 Gm Gel..Gram.) 15 gm PO Q15M PRN; Protocol PRN Reason: per Hypoglycemia Standing Ord. Haloperidol (Haloperidol 1 Mg Tablet) 4 mg PO BEDTIME [facility] Last Admin: 06/15/23 20:38 Dose: 4 mg Insulin Glargine (Insulin Glargine,Hum.Rec.Anlog 100 Unit/Ml 10 Ml Vial) 8 unit SUBCUT DAILY [facility] Last Admin: 06/16/23 08:50 Dose: 8 unit Insulin Human Lispro (Insulin Lispro 100 Unit/Ml 3 Ml Vial) 0 unit SUBCUT QIDACHS [facility]; Protocol Last Admin: 06/16/23 11:56 Dose: Not Given Magnesium Hydroxide (Milk Of Magnesia 30 Ml Oral.Susp) 30 ml PO DAILY PRN PRN Reason: Constipation Memantine (Memantine Hcl 10 Mg Tablet) 10 mg PO BID [facility] Last Admin: 06/16/23 08:52 Dose: 10 mg Metformin HCl (Metformin Hcl 1,000 Mg Tablet) 1,000 mg PO BID [facility] Last Admin: 06/16/23 08:52 Dose: 1,000 mg Olanzapine (Olanzapine 2.5 Mg Tablet) 2.5 mg PO Q4H PRN PRN Reason: anxiety/agitation Last Admin: 04/29/23 17:17 Dose: 2.5 mg Omeprazole (Omeprazole 20 Mg Capsule.Dr) 20 mg PO DAILY [facility] Last Admin: 06/16/23 08:51 Dose: 20 mg Prednisone (Prednisone 10 Mg Tablet) 10 mg PO DAILY [facility] Last Admin: 06/16/23 08:52 Dose: 10 mg Sertraline HCl (Sertraline Hcl 100 Mg Tablet) 100 mg PO DAILY [facility] Last Admin: 06/16/23 08:52 Dose: 100 mg Trazodone HCl (Trazodone Hcl 50 Mg Tablet) 50 mg PO BEDTIME MRX1 PRN PRN Reason: Insomnia Last Admin: 06/12/23 21:31 Dose: 50 mg Allergies Allergies Allergy/AdvReac Type Severity Reaction Status Date / Time No Known Allergies Allergy Verified 03/23/23 18:13 Assessment & Plan Assessment & Plan (1) Dementia: Status: Acute Code(s): F03.90 - Unspecified dementia, unspecified severity, without behavioral disturbance, psychotic disturbance, mood disturbance, and anxiety Assessment and Plan: 57 years old woman with somewhat rapidly progressing dementia or symptoms of dementia with CSF protein of 88 but otherwise no definite clue about her diagn osis. I discussed the case with neurology service at [facility] and they suggested that the workup has been appropriate and thorough and it was not clear if any further investigations were needed. Also, they did not have beds available for transfer According to their experience, this level of CSF protein could be seen and degenerative disorders but could also be seen in some type of spine pathology, which we have not investigated. In any case, high CSF protein without elevation of cells and without any significant brain lesions on MRI, does not suggest malignancy or vasculitis type of pathology. At this time, after discussing the case with the neurologist in [place], my recommendation is to treat her for degenerative dementia appearing in young age. Some CSF tests are pending which may confirm this notion. PET scan can also help. On the other hand, further CSF analysis and investigations for vasculitis like brain biopsy are not warranted. As far as treatment of dementia is concerned, it is symptomatic. I would start with donepezil 5 mg daily and after a week would add memantine 5 mg twice a day. These are the 2 types of medicines available at this time. Finally, her placement could be an issue as she would not be able to live independently Plan 05/05/23 Pt with gross disorganization b sister give hx of more gradual deterioration neuro note reviewed chart reviewed start aricept some csf results pending consider pet if available ?05/07/2023: No changes to current treatment plan.? Treatment team working on complex disposition which may include instituted living in [place] 05/08 continue tx. 05/09 continue tx. 05/10:? neuro believes Dx more likely dementia at this point, consulted with [place] neuro who informed him protein of 88 may sometimes be seen in dementia or spinal disorders and that w/u thus far here had been thorough and adequate.? plan to treat as dementia for now.? neuro rec starting donepezil and 1 week later memantine.? donepezil started 5 days ago, memantine scheduled to be started in 3 days.? 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 per review of [facility], their recommended taper for this pt's duration of therapy and daily dose is to reduce by 5 mg/day every 1-2 weeks.? as her time on steroids has been relatively short, we would proceed with the more aggressive taper.? in any event, dosing to be reduced by 5 mg/day as of today. 05/11: all labs results in, positives are for elevated CSF protein/albumin and pattern of CSF protein c/w alzheimer's dementia. continue induction on cholinesterase inhibitor, pednisone taper, work on dispo planning. 05/12: no change in presentation. discharge planning aggressively underway. start memantine tomorrow. currently planning for discharge monday. 05/13: memantine started today. decrease zyprexa at HS from 5 mg to 2.5 mg in attempt to decrease overall sedation. plan to decrease prednisone by 5 mg/day on monday. 05/14: continue current mgmt. decrease prednisone by 5 mg/day as of tomorrow mor shawna. dispo planning underway. 05/15: continue current mgmt. family meeting tomorrow with pt's daughter and HCP, bakari. 05/16: family mtg held. [facility] looking into rest homes, family to pursue involving extended family for a place for pt to stay. FSBS elevated, prednisone taper ongoing, SSI being used. 05/17: no change in mgmt. met with [facility] and [facility] bunch to discuss dispo options. rest home is not an option, STR does not appear to be likely to be an option but is being pursued today. awaiting word from daughter on option to DC to brother's home. will need custodial care daily for DM mgmt until no longer requiring SSI, however. per report, her insurance does not cover VNA. 05/18: stable presentation. requesting new MoCA and ACLS as pt's cognition seems to have improved slightly since treatment for AD began. 05/19: stable presentation. daughter working on dispo options. ACLS unchanged from prior. T/C transfer to [facility] today. continue prednisone taper monday. 05/20 Less agitated. No med changes today. 05/21: prednisone taper in process, consider transfer to [facility] 05/22/2023 Hospitalist consult regarding hyperglycemia consider stopping olanzapine and changing to antipsychotic if needed lowered tendency to increase blood sugars. Discharge planning AFTER DISCUSSION WITH MARGARITA PEREZ THE PATIENT WAS PLACED LONG-ACTING INSULIN GLARGINE 05/23: FSBS trending down. continue current mgmt. T/C change to typical anti- psychotic. case d/w Dr. Trotter. 05/24: stable. DCed zyprexa and started haldol 2 mg QHS. completed review with insurance company . continue to seek placement at group home care facility. 05/25: increase HS haldol to 4 mg, otherwise continue current mgmt. stable presentation. 05/26: no change in presentation. continue current mgmt. 05/27: no change in presentation. continue current mgmt. 05/28: no change in presentation. continue current mgmt. 05/29: no change, continue. 05/30: no change, continue. 05/31: FSBS trending better, recently mostly below 200. otherwise no changes. continue current mgmt. 06/01: FSBS trending better, recently mostly below 200. otherwise no changes. continue current mgmt. daughter has not returned any of 's calls for the past week. 06/02: decrease glargine from 10 units daily to 8 units daily as pt's FSBS have started to come under 100. decrease prednisone this monday and the following monday (orders written). pending placement and getting off of insulin. 06/03 keep same treatment. 06/04 keep same treatment 06/05/23 Pt seen cont tx plan 06/06/2023 Consider increase Namenda transfer to [facility] for more supervision and structured care. Discharge planning would benefit from eventual locked assisted living if possible case reviewed extensively with social Work there has been difficulty coordinating with healthcare proxy Plan 1. Continue with Aricept 10 mg p.o. q.h.s., Namenda 10 mg p.o. b.i.d. to target dementia. 2. Increase all of up to 100 mg p.o. daily on June 14. 3. Waiting for placement. 4. Filing for guardianship. Reason for continued inpatient stay Substantial Risk for: inability to function, rapid decompensation and med/psych decompensation Time Spent With Patient Time: Total time managing care of this patient today __20__ minutes.
[2023-06-16 16:45] LABS: Glucose, Whole Blood 145 mg/dL (60-115)
[2023-06-16 19:45] VITALS: BP 114/55; PULSE 74; RESP 18; TEMP 37.1; O2SAT 97
[2023-06-16 20:04] LABS: Glucose, Whole Blood 159 mg/dL (60-115)
[2023-06-16] MEDS: HaloperidoL 1 MG TABLET 4 MG PO (20:58)
[2023-06-16] MEDS: Donepezil HCl 10 MG TABLET PO (20:59)
[2023-06-16] MEDS: Insulin Lispro 100 UNIT/ML 3 ML VIAL SUBCUT (21:02)
[2023-06-17 07:45] LABS: Glucose, Whole Blood 92 mg/dL (60-115)
[2023-06-17 07:46] LABS: Creatinine Clr Calc Pharmacy 82.3; Estimated Glomerular Filt Rate > 60
[2023-06-17 07:59] VITALS: BP 139/82; PULSE 68; RESP 18; TEMP 36.8; O2SAT 96
--- NOTE | 2023-06-17 08:00 | HO.PSYCHPN ---
Subjective Subjective Date of Service: 06/17/23 Reason For Visit: hallucinations confusion Subjective Notes: Conditional Voluntary Interim History: The nursing staff reported the patient has been compliant with medications and meals, she has been cooperative with care quiet but with poor interaction with peers. She slept well last night and apparently she could have been defecated in the basket. On interview the patient remains pleasantly confused, easily redirectable. Mental Status Exam Mental Status Exam Patient Appearance: Well Grooomed and Appropriate Patient Orientation: Person and Situation Level of Consciousness: Awake and Appropriate Patient Behavior: Guarded and Passive Mood Description: Calm Affect Description: Constricted Patient Cognition Impaired: Yes Ability to Follow Directions: Good Speech Pattern: Clear Hallucinations: None Delusions: Not Present Thought Process: Distracted, Evasive and Slowed Thinking Thought Content: positive for [place] and positive for Poverty of Content Judgement: Poor Diagnostics Vital Signs (24Hr): Vital Signs - 24 hr 06/16/23 19:45 Temperature 98.7 F Pulse Rate 74 Respiratory Rate 18 Blood Pressure 114/55 L Pulse Oximetry 97 Oxygen Delivery Method Room Air BMI result Body Mass Index 28.9 Labs 04/08/23 09:08 06/17/23 07:26 Labs: Laboratory Results - last 48 hr 06/15/23 06/15/23 06/15/23 11:28 16:23 20:19 Creatinine Estim Creat Clear Calc Estimated GFR POC Glucose 115 135 H 108 06/16/23 06/16/23 06/16/23 07:56 11:48 16:41 Creatinine Estim Creat Clear Calc Estimated GFR POC Glucose 78 144 H 145 H 06/16/23 06/17/23 06/17/23 19:59 07:26 07:40 Creatinine 0.70 Estim Creat Clear Calc 82.3 Estimated GFR > 60 POC Glucose 159 H 92 Imaging Radiology Impressions: ITS Impressions Brain MRI 04/03/23 15:30 IMPRESSION: No acute infarct, mass lesion, intracranial hemorrhage, or evidence of hydrocephalus. Mild nonspecific T2/FLAIR hyperintensity in the cerebral white matter and danny presumably on the basis of chronic microangiopathy. Medications Medications Current Medications Acetaminophen (Acetaminophen 325 Mg Tablet) 650 mg PO Q6H PRN PRN Reason: Headache/Pain Mild Scale (1-3) Last Admin: 05/06/23 20:10 Dose: 650 mg Al Hydroxide/Mg Hydroxide (Magnesium Hydrox/Alum Hydrox 30 Ml Oral.Susp) 30 ml PO Q6H PRN PRN Reason: Heartburn/Nausea Atorvastatin Calcium (Atorvastatin Calcium 40 Mg Tablet) 40 mg PO DAILY [facility] Last Admin: 06/16/23 08:51 Dose: 40 mg Dextrose (Dextrose 50 % 25 Gm/50 Ml Syringe) 25 gm IVPUSH Q15M PRN; Protocol PRN Reason: per Hypoglycemia Standing Ord. Donepezil HCl (Donepezil Hcl 10 Mg Tablet) 10 mg PO BEDTIME [facility] Last Admin: 06/16/23 20:59 Dose: 10 mg Empagliflozin (Empagliflozin 25 Mg Tablet) 25 mg PO DAILY [facility] Last Admin: 06/16/23 08:52 Dose: 25 mg Famotidine (Famotidine 20 Mg Tablet) 20 mg PO DAILY [facility] Last Admin: 06/16/23 08:51 Dose: 20 mg Glucose (Glucose Gel 15 Gm Gel..Gram.) 15 gm PO Q15M PRN; Protocol PRN Reason: per Hypoglycemia Standing Ord. Haloperidol (Haloperidol 1 Mg Tablet) 4 mg PO BEDTIME [facility] Last Admin: 06/16/23 20:58 Dose: 4 mg Insulin Glargine (Insulin Glargine,Hum.Rec.Anlog 100 Unit/Ml 10 Ml Vial) 8 unit SUBCUT DAILY [facility] Last Admin: 06/16/23 08:50 Dose: 8 unit Insulin Human Lispro (Insulin Lispro 100 Unit/Ml 3 Ml Vial) 0 unit SUBCUT QIDACHS [facility]; Protocol Last Admin: 06/16/23 21:02 Dose: 2 unit Magnesium Hydroxide (Milk Of Magnesia 30 Ml Oral.Susp) 30 ml PO DAILY PRN PRN Reason: Constipation Memantine (Memantine Hcl 10 Mg Tablet) 10 mg PO BID [facility] Last Admin: 06/16/23 20:59 Dose: 10 mg Metformin HCl (Metformin Hcl 1,000 Mg Tablet) 1,000 mg PO BID [facility] Last Admin: 06/16/23 20:59 Dose: 1,000 mg Olanzapine (Olanzapine 2.5 Mg Tablet) 2.5 mg PO Q4H PRN PRN Reason: anxiety/agitation Last Admin: 04/29/23 17:17 Dose: 2.5 mg Omeprazole (Omeprazole 20 Mg Capsule.Dr) 20 mg PO DAILY [facility] Last Admin: 06/16/23 08:51 Dose: 20 mg Prednisone (Prednisone 10 Mg Tablet) 10 mg PO DAILY [facility] Last Admin: 06/16/23 08:52 Dose: 10 mg Sertraline HCl (Sertraline Hcl 100 Mg Tablet) 100 mg PO DAILY [facility] Last Admin: 06/16/23 08:52 Dose: 100 mg Trazodone HCl (Trazodone Hcl 50 Mg Tablet) 50 mg PO BEDTIME MRX1 PRN PRN Reason: Insomnia Last Admin: 06/12/23 21:31 Dose: 50 mg Allergies Allergies Allergy/AdvReac Type Severity Reaction Status Date / Time No Known Allergies Allergy Verified 03/23/23 18:13 Assessment & Plan Assessment & Plan (1) Dementia: Status: Acute Code(s): F03.90 - Unspecified dementia, unspecified severity, without behavioral disturbance, psychotic disturbance, mood disturbance, and anxiety Assessment and Plan: 57 years old woman with somewhat rapidly progressing dementia or symptoms of dementia with CSF protein of 88 but otherwise no definite clue about her diagnosis. I discussed the case with neurology service at [facility] and they suggested that the workup has been appropriate and thorough and it was not clear if any further investigations were needed. Also, they did not have beds available for transfer According to their experience, this level of CSF protein could be seen and degenerative disorders but could also be seen in some type of spine pathology, which we have not investigated. In any case, high CSF protein without elevation of cells and without any significant brain lesions on MRI, does not suggest malignancy or vasculitis type of pathology. At this time, after discussing the case with the neurologist in [place], my recommendation is to treat her for degenerative dementia appearing in young age. Some CSF tests are pending which may confirm this notion. PET scan can also help. On the other hand, further CSF analysis and investigations for vasculitis like brain biopsy are not warranted. As far as treatment of dementia is concerned, it is symptomatic. I would start with donepezil 5 mg daily and after a week would add memantine 5 mg twice a day. These are the 2 types of medicines available at this time. Finally, her placement could be an issue as she would not be able to live independently Plan 05/05/23 Pt with gross disorganization b sister give hx of more gradual deterioration neuro note reviewed chart reviewed start aricept some csf results pending consider pet if available ?05/07/2023: No changes to current treatment plan.? Treatment team working on complex disposition which may include instituted living in [place] 05/08 continue tx. 05/09 continue tx. 05/10:? neuro believes Dx more likely dementia at this point, consulted with [place] neuro who informed him protein of 88 may sometimes be seen in dementia or spinal disorders and that w/u thus far here had been thorough and adequate.? plan to treat as dementia for now.? neuro rec starting donepezil and 1 week later memantine.? donepezil started 5 days ago, memantine scheduled to be started in 3 days.? 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 per review of [employer], their recommended taper for this pt's duration of therapy and daily dose is to reduce by 5 mg/day every 1-2 weeks.? as her time on steroids has been relatively short, we would proceed with the more aggressive taper.? in any event, dosing to be reduced by 5 mg/day as of today. 05/11: all labs results in, positives are for elevated CSF protein/albumin and pattern of CSF protein c/w alzheimer's dementia. continue induction on cholinesterase inhibitor, pednisone taper, work on dispo planning. 05/12: no change in presentation. discharge planning aggressively underway. start memantine tomorrow. currently planning for discharge monday. 05/13: memantine started today. decrease zyprexa at HS from 5 mg to 2.5 mg in attempt to decrease overall sedation. plan to decrease prednisone by 5 mg/day on monday. 05/14: continue current mgmt. decrease prednisone by 5 mg/day as of tomorrow morning. dispo planning underway. 05/15: continue current mgmt. family meeting tomorrow with pt's daughter and HCP, bakari. 05/16: family mtg held. SW looking into rest homes, family to pursue involving extended family for a place for pt to stay. FSBS elevated, prednisone taper ongoing, SSI being used. 05/17: no change in mgmt. met with [facility] to discuss dispo options. rest home is not an option, STR does not appear to be likely to be an option but is being pursued today. awaiting word from daughter on option to DC to brother's home. will need correction care daily for DM mgmt until no longer requiring SSI, however. per report, her insurance does not cover VNA. 05/18: stable presentation. requesting new MoCA and ACLS as pt's cognition seems to have improved slightly since treatment for AD began. 05/19: stable presentation. daughter working on dispo options. ACLS unchanged from prior. T/C transfer to [facility] today. continue prednisone taper monday. 05/20 Less agitated. No med changes today. 05/21: prednisone taper in process, consider transfer to [facility] 05/22/2023 Hospitalist consult regarding hyperglycemia consider stopping olanzapine and changing to antipsychotic if needed lowered tendency to increase blood sugars. Discharge planning AFTER DISCUSSION WITH MARGARITA PEREZ THE PATIENT WAS PLACED LONG-ACTING INSULIN GLARGINE 05/23: FSBS trending down. continue current mgmt. T/C change to typical anti-psychotic. case d/w Dr. Trotter. 05/24: stable. DCed zyprexa and started haldol 2 mg QHS. completed review with insurance company . continue to [facility] placement at [facility]. 05/25: increase HS haldol to 4 mg, otherwise continue current mgmt. stable presentation. 05/26: no change in presentation. continue current mgmt. 05/27: no change in presentation. continue current mgmt. 05/28: no change in presentation. continue current mgmt. 05/29: no change, continue. 05/30: no change, continue. 05/31: FSBS trending better, recently mostly below 200. otherwise no changes. continue current mgmt. 06/01: FSBS trending better, recently mostly below 200. otherwise no changes. continue current mgmt. daughter has not returned any of 's calls for the past week. 06/02: decrease glargine from 10 units daily to 8 units daily as pt's FSBS have started to come under 100. decrease prednisone this monday and the following monday (orders written). pending placement and getting off of insulin. 06/03 keep same treatment. 06/04 keep same treatment 06/05/23 Pt seen cont tx plan 06/06/2023 Consider increase Namenda transfer to [facility] for more supervision and structured care. Discharge planning would benefit from eventual locked assisted living if possible case reviewed extensively with social Work there has been difficulty coordinating with healthcare proxy Plan 1. Continue with Aricept 10 mg p.o. q.h.s., Namenda 10 mg p.o. b.i.d. to target dementia. 2. Increase all of up to 100 mg p.o. daily on June 14. 3. Waiting for placement. 4. Filing for guardianship. Reason for continued inpatient stay Substantial Risk for: inability to function, rapid decompensation and med/psych decompensation Time Spent With Patient Time: Total time managing care of this patient today __20__ minutes.
[2023-06-17] MEDS: Insulin Glargine,Hum.rec.anlog 100 UNIT/ML 10 ML VIAL 8 UNIT SUBCUT (09:01)
[2023-06-17] MEDS: Empagliflozin 25 MG TABLET PO (09:02)
[2023-06-17] MEDS: metFORMIN HCl 1,000 MG TABLET 1000 MG PO ×2 (09:02→20:44)
[2023-06-17] MEDS: predniSONE 10 MG TABLET PO (09:02)
[2023-06-17] MEDS: Memantine HCl 10 MG TABLET PO ×2 (09:02→20:44)
[2023-06-17] MEDS: Atorvastatin Calcium 40 MG TABLET PO (09:02)
[2023-06-17] MEDS: Omeprazole 20 MG CAPSULE.DR PO (09:02)
[2023-06-17] MEDS: Famotidine 20 MG TABLET PO (09:02)
[2023-06-17] MEDS: Sertraline HCL 100 MG TABLET PO (09:02)
[2023-06-17 11:31] LABS: Glucose, Whole Blood 122 mg/dL (60-115)
[2023-06-17 16:25] LABS: Glucose, Whole Blood 107 mg/dL (60-115)
[2023-06-17 18:00] VITALS: BP 114/86; PULSE 66; RESP 18; TEMP 36.8; O2SAT 97
[2023-06-17 20:01] LABS: Glucose, Whole Blood 209 mg/dL (60-115)
[2023-06-17] MEDS: Insulin Lispro 100 UNIT/ML 3 ML VIAL SUBCUT (20:40)
[2023-06-17] MEDS: HaloperidoL 1 MG TABLET 4 MG PO (20:44)
[2023-06-17] MEDS: Donepezil HCl 10 MG TABLET PO (20:44)
[2023-06-18 06:59] LABS: Glucose, Whole Blood 103 mg/dL (60-115)
[2023-06-18 07:53] VITALS: BP 138/66; PULSE 73; RESP 20; TEMP 36.2; O2SAT 98
[2023-06-18] MEDS: Memantine HCl 10 MG TABLET PO ×2 (08:18→20:29)
[2023-06-18] MEDS: Insulin Glargine,Hum.rec.anlog 100 UNIT/ML 10 ML VIAL 8 UNIT SUBCUT (08:18)
[2023-06-18] MEDS: Famotidine 20 MG TABLET PO (08:18)
[2023-06-18] MEDS: Atorvastatin Calcium 40 MG TABLET PO (08:18)
[2023-06-18] MEDS: Sertraline HCL 100 MG TABLET PO (08:18)
[2023-06-18] MEDS: Omeprazole 20 MG CAPSULE.DR PO (08:18)
[2023-06-18] MEDS: metFORMIN HCl 1,000 MG TABLET 1000 MG PO ×2 (08:18→20:28)
[2023-06-18] MEDS: predniSONE 10 MG TABLET PO (08:18)
[2023-06-18] MEDS: Empagliflozin 25 MG TABLET PO (08:18)
--- NOTE | 2023-06-18 09:42 | P.PNPSI_ITS ---
Subjective Subjective Date of Service: 06/18/23 Reason For Visit: hallucinations confusion Subjective Notes: Conditional Voluntary Interim History: The nursing staff reported the patient has solar it to self, she has delayed responses and she participating in some groups. She had being flat in affect withdrawn but she slept well last night his fasting blood sugars was 103 today in the morning. On interview the patient is pleasantly confused, with no changes in her mental status. Waiting for placement. Mental Status Exam Mental Status Exam Patient Appearance: Well Grooomed and Appropriate Patient Orientation: Person and Situation Level of Consciousness: Awake and Appropriate Patient Behavior: Guarded and Passive Mood Description: Withdrawn Affect Description: Constricted Patient Cognition Impaired: Yes Ability to Follow Directions: Good Speech Pattern: Clear Hallucinations: None Delusions: Not Present Thought Process: Distracted and Slowed Thinking Thought Content: positive for [place] and positive for Thought Blocking Judgement: Fair Diagnostics Vital Signs (24Hr): Vital Signs - 24 hr 06/17/23 18:00 06/18/23 07:53 Temperature 98.2 F 97.2 F Pulse Rate 66 73 Respiratory Rate 18 20 Blood Pressure 114/86 138/66 Pulse Oximetry 97 98 Oxygen Delivery Method Room Air Room Air BMI result Body Mass Index 28.9 Labs 04/08/23 09:08 06/17/23 07:26 Labs: Laboratory Results - last 48 hr 06/16/23 06/16/23 06/16/23 11:48 16:41 19:59 Creatinine Estim Creat Clear Calc Estimated GFR POC Glucose 144 H 145 H 159 H 06/17/23 06/17/23 06/17/23 07:26 07:40 11:24 Creatinine 0.70 Estim Creat Clear Calc 82.3 Estimated GFR > 60 POC Glucose 92 122 H 06/17/23 06/17/23 06/18/23 16:20 19:39 06:55 Creatinine Estim Creat Clear Calc Estimated GFR POC Glucose 107 209 H 103 Imaging Radiology Impressions: ITS Impressions Brain MRI 04/03/23 15:30 IMPRESSION: No acute infarct, mass lesion, intracranial hemorrhage, or evidence of hydrocephalus. Mild nonspecific T2/FLAIR hyperintensity in the cerebral white matter and danny presumably on the basis of chronic microangiopathy. Medications Medications Current Medications Acetaminophen (Acetaminophen 325 Mg Tablet) 650 mg PO Q6H PRN PRN Reason: Headache/Pain Mild Scale (1-3) Last Admin: 05/06/23 20:10 Dose: 650 mg Al Hydroxide/Mg Hydroxide (Magnesium Hydrox/Alum Hydrox 30 Ml Oral.Susp) 30 ml PO Q6H PRN PRN Reason: Heartburn/Nausea Atorvastatin Calcium (Atorvastatin Calcium 40 Mg Tablet) 40 mg PO DAILY [facility] Last Admin: 06/18/23 08:18 Dose: 40 mg Dextrose (Dextrose 50 % 25 Gm/50 Ml Syringe) 25 gm IVPUSH Q15M PRN; Protocol PRN Reason: per Hypoglycemia Standing Ord. Donepezil HCl (Donepezil Hcl 10 Mg Tablet) 10 mg PO BEDTIME [facility] Last Admin: 06/17/23 20:44 Dose: 10 mg Empagliflozin (Empagliflozin 25 Mg Tablet) 25 mg PO DAILY [facility] Last Admin: 06/18/23 08:18 Dose: 25 mg Famotidine (Famotidine 20 Mg Tablet) 20 mg PO DAILY [facility] Last Admin: 06/18/23 08:18 Dose: 20 mg Glucose (Glucose Gel 15 Gm Gel..Gram.) 15 gm PO Q15M PRN; Protocol PRN Reason: per Hypoglycemia Standing Ord. Haloperidol (Haloperidol 1 Mg Tablet) 4 mg PO BEDTIME [facility] Last Admin: 06/17/23 20:44 Dose: 4 mg Insulin Glargine (Insulin Glargine,Hum.Rec.Anlog 100 Unit/Ml 10 Ml Vial) 8 unit SUBCUT DAILY [facility] Last Admin: 06/18/23 08:18 Dose: 8 unit Insulin Human Lispro (Insulin Lispro 100 Unit/Ml 3 Ml Vial) 0 unit SUBCUT QIDACHS [facility]; Protocol Last Admin: 06/18/23 08:19 Dose: Not Given Magnesium Hydroxide (Milk Of Magnesia 30 Ml Oral.Susp) 30 ml PO DAILY PRN PRN Reason: Constipation Memantine (Memantine Hcl 10 Mg Tablet) 10 mg PO BID [facility] Last Admin: 06/18/23 08:18 Dose: 10 mg Metformin HCl (Metformin Hcl 1,000 Mg Tablet) 1,000 mg PO BID [facility] Last Admin: 06/18/23 08:18 Dose: 1,000 mg Olanzapine (Olanzapine 2.5 Mg Tablet) 2.5 mg PO Q4H PRN PRN Reason: anxiety/agitation Last Admin: 04/29/23 17:17 Dose: 2.5 mg Omeprazole (Omeprazole 20 Mg Capsule.Dr) 20 mg PO DAILY [facility] Last Admin: 06/18/23 08:18 Dose: 20 mg Prednisone (Prednisone 10 Mg Tablet) 10 mg PO DAILY [facility] Last Admin: 06/18/23 08:18 Dose: 10 mg Sertraline HCl (Sertraline Hcl 100 Mg Tablet) 100 mg PO DAILY [facility] Last Admin: 06/18/23 08:18 Dose: 100 mg Trazodone HCl (Trazodone Hcl 50 Mg Tablet) 50 mg PO BEDTIME MRX1 PRN PRN Reason: Insomnia Last Admin: 06/12/23 21:31 Dose: 50 mg Allergies Allergies Allergy/AdvReac Type Severity Reaction Status Date / Time No Known Allergies Allergy Verified 03/23/23 18:13 Assessment & Plan Assessment & Plan (1) Dementia: Status: Acute Code(s): F03.90 - Unspecified dementia, unspecified severity, without behavioral disturbance, psychotic disturbance, mood disturbance, and anxiety Assessment and Plan: 57 years old woman with somewhat rapidly progressing dementia or symptoms of dementia with CSF protein of 88 but otherwise no definite clue about her diagnosis. I discussed the case with neurology service at [facility] and they suggested that the workup has been appropriate and thorough and it was not clear if any further investigations were needed. Also, they did not have beds available for transfer According to their experience, this level of CSF protein could be seen and degenerative disorders but could also be seen in some type of spine pathology, which we have not investigated. In any case, high CSF protein without elevation of cells and without any significant brain lesions on MRI, [place] s not suggest malignancy or vasculitis type of pathology. At this time, after discussing the case with the neurologist in [place], my recommendation is to treat her for degenerative dementia appearing in young age. Some CSF tests are pending which may confirm this notion. PET scan can also help. On the other hand, further CSF analysis and investigations for vasculitis like brain biopsy are not warranted. As far as treatment of dementia is concerned, it is symptomatic. I would start with donepezil 5 mg daily and after a week would add memantine 5 mg twice a day. These are the 2 types of medicines available at this time. Finally, her placement could be an issue as she would not be able to live independently Plan 05/05/23 Pt with gross disorganization b sister give hx of more gradual deterioration neuro note reviewed chart reviewed start aricept some csf results pending consider pet if available ?05/07/2023: No changes to current treatment plan.? Treatment team working on complex disposition which may include instituted living in [place] 05/08 continue tx. 05/09 continue tx. 05/10:? neuro believes Dx more likely dementia at this point, consulted with [place] neuro who informed him protein of 88 may sometimes be seen in dementia or spinal disorders and that w/u thus far here had been thorough and adequate.? plan to treat as dementia for now.? neuro rec starting donepezil and 1 week later memantine.? donepezil started 5 days ago, memantine scheduled to be started in 3 days.? 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 per review of [employer], their recommended taper for this pt's duration of therapy and daily dose is to reduce by 5 mg/day every 1-2 weeks.? as her time on steroids has been relatively short, we would proceed with the more aggressive taper.? in any event, dosing to be reduced by 5 mg/day as of today. 05/11: all labs results in, positives are for elevated CSF protein/albumin and pattern of CSF protein c/w alzheimer's dementia. continue induction on cholinesterase inhibitor, pednisone taper, work on dispo planning. 05/12: no change in presentation. discharge planning aggressively underway. start memantine tomorrow. currently planning for discharge monday. 05/13: memantine started today. decrease zyprexa at HS from 5 mg to 2.5 mg in attempt to decrease overall sedation. plan to decrease prednisone by 5 mg/day on monday. 05/14: continue current mgmt. decrease prednisone by 5 mg/day as of tomorrow morning. dispo planning underway. 05/15: continue current mgmt. family meeting tomorrow with pt's daughter and HCP, bakari. 05/16: family mtg held. SW looking into rest homes, family to pursue involving extended family for a place for pt to stay. FSBS elevated, prednisone taper ongoing, SSI being used. 05/17: no change in mgmt. met with [facility] to discuss dispo options. rest home is not an option, STR does not appear to be likely to be an option but is being pursued today. awaiting word from daughter on option to DC to brother's home. will need jail care daily for DM mgmt until no longer requiring SSI, however. per report, her insurance does not cover VNA. 05/18: stable presentation. requesting new MoCA and ACLS as pt's cognition seems to have improved slightly since treatment for AD began. 05/19: stable presentation. daughter working on dispo options. ACLS unchanged from prior. T/C transfer to [facility] today. continue prednisone taper monday. 05/20 Less agitated. No med changes today. 05/21: prednisone taper in process, consider transfer to [facility] 05/22/2023 Hospitalist consult regarding hyperglycemia consider stopping olanzapine and changing to antipsychotic if needed lowered tendency to increase blood sugars. Discharge planning AFTER DISCUSSION WITH MARGARITA PEREZ THE PATIENT WAS PLACED LONG-ACTING INSULIN GLARGINE 05/23: FSBS trending down. continue current mgmt. T/C change to typical anti- psychotic. case d/w Dr. Trotter. 05/24: stable. DCed zyprexa and started haldol 2 mg QHS. completed review with insurance [employer] . continue to seek placement at shelter care facility. 05/25: increase HS haldol to 4 mg, otherwise continue current mgmt. stable presentation. 05/26: no change in presentation. continue current mgmt. 05/27: no change in presentation. continue current mgmt. 05/28: no change in presentation. continue current mgmt. 05/29: no change, continue. 05/30: no change, continue. 05/31: FSBS trending better, recently mostly below 200. otherwise no changes. continue current mgmt. 06/01: FSBS trending better, recently mostly below 200. otherwise no changes. continue current mgmt. daughter has not returned any of 's calls for the past week. 06/02: decrease glargine from 10 units daily to 8 units daily as pt's FSBS have started to come under 100. decrease prednisone this monday and the following monday (orders written). pending placement and getting off of insulin. 06/03 keep same treatment. 06/04 keep same treatment 06/05/23 Pt seen cont tx plan 06/06/2023 Consider increase Namenda transfer to [facility] for more supervision and structured care. Discharge planning would benefit from eventual locked assisted living if possible case reviewed extensively with social Work there has been difficulty coordinating with healthcare proxy Plan 1. Continue with Aricept 10 mg p.o. q.h.s., Namenda 10 mg p.o. b.i.d. to target dementia. 2. Increase all of up to 100 mg p.o. daily on June 14. 3. Waiting for placement. 4. Filing for guardianship. Reason for continued inpatient stay Substantial Risk for: inability to function, rapid decompensation and med/psych decompensation Time Spent With Patient Time: Total time managing care of this patient today _20___ minutes.
[2023-06-18 11:08] LABS: Glucose, Whole Blood 145 mg/dL (60-115)
[2023-06-18 16:12] LABS: Glucose, Whole Blood 106 mg/dL (60-115)
[2023-06-18 18:59] VITALS: BP 135/68; PULSE 67; RESP 18; TEMP 37.1; O2SAT 98
[2023-06-18] MEDS: HaloperidoL 1 MG TABLET 4 MG PO (20:25)
[2023-06-18] MEDS: Donepezil HCl 10 MG TABLET PO (20:28)
[2023-06-18 20:43] LABS: Glucose, Whole Blood 125 mg/dL (60-115)
[2023-06-19 07:55] LABS: Glucose, Whole Blood 110 mg/dL (60-115)
[2023-06-19 08:20] VITALS: BP 131/66; PULSE 78; RESP 18; TEMP 37; O2SAT 96
[2023-06-19] MEDS: Omeprazole 20 MG CAPSULE.DR PO (09:05)
[2023-06-19] MEDS: Atorvastatin Calcium 40 MG TABLET PO (09:05)
[2023-06-19] MEDS: metFORMIN HCl 1,000 MG TABLET 1000 MG PO ×2 (09:06→20:26)
[2023-06-19] MEDS: Empagliflozin 25 MG TABLET PO (09:06)
[2023-06-19] MEDS: Memantine HCl 10 MG TABLET PO ×2 (09:06→20:26)
[2023-06-19] MEDS: Sertraline HCL 100 MG TABLET PO (09:06)
[2023-06-19] MEDS: predniSONE 10 MG TABLET PO (09:07)
[2023-06-19] MEDS: Insulin Glargine,Hum.rec.anlog 100 UNIT/ML 10 ML VIAL 8 UNIT SUBCUT (09:07)
[2023-06-19] MEDS: Famotidine 20 MG TABLET PO (09:07)
--- NOTE | 2023-06-19 11:11 | HO.PSYCHPN ---
Subjective Subjective Date of Service: 06/19/23 Reason For Visit: hallucinations confusion Subjective Notes: Conditional Voluntary Interim History: The nursing staff reported the patient had been alert all in oriented to herself she naps in the afternoon and her point of cares had been within normal limits. She slept well. The healthcare social worker reported that a ladle operator call us back regarding the guardianship. Apparently she has property and her healthcare proxy has not answer back, her has being [employer] and he is not available. On interview the patient is pleasantly confused. Mental Status Exam Mental Status Exam Patient Appearance: Well Grooomed and Appropriate Patient Orientation: Person and Situation Level of Consciousness: Awake and Appropriate Patient Behavior: Guarded and Passive Mood Description: Withdrawn Affect Description: Constricted Patient Cognition Impaired: Yes Ability to Follow Directions: Good Speech Pattern: Clear Hallucinations: None Delusions: Not Present Thought Process: Distracted Thought Content: positive for [place] and positive for Poverty of Content Judgement: Fair Diagnostics Vital Signs (24Hr): Vital Signs - 24 hr 06/18/23 18:59 06/19/23 08:20 Temperature 98.8 F 98.6 F Pulse Rate 67 78 Respiratory Rate 18 18 Blood Pressure 135/68 131/66 Pulse Oximetry 98 96 Oxygen Delivery Method Room Air Room Air BMI result Body Mass Index 28.9 Labs 04/08/23 09:08 06/17/23 07:26 Labs: Laboratory Results - last 48 hr 06/17/23 06/17/23 06/17/23 11:24 16:20 19:39 POC Glucose 122 H 107 209 H 06/18/23 06/18/23 06/18/23 06:55 11:01 16:08 POC Glucose 103 145 H 106 06/18/23 06/19/23 20:32 07:48 POC Glucose 125 H 110 Imaging Radiology Impressions: ITS Impressions Brain MRI 04/03/23 15:30 IMPRESSION: No acute infarct, mass lesion, intracranial hemorrhage, or evidence of hydrocephalus. Mild nonspecific T2/FLAIR hyperintensity in the cerebral white matter and danny presumably on the basis of chronic microangiopathy. Medications Medications Current Medications Acetaminophen (Acetaminophen 325 Mg Tablet) 650 mg PO Q6H PRN PRN Reason: Headache/Pain Mild Scale (1-3) Last Admin: 05/06/23 20:10 Dose: 650 mg Al Hydroxide/Mg Hydroxide (Magnesium Hydrox/Alum Hydrox 30 Ml Oral.Susp) 30 ml PO Q6H PRN PRN Reason: Heartburn/Nausea Atorvastatin Calcium (Atorvastatin Calcium 40 Mg Tablet) 40 mg PO DAILY [facility] Last Admin: 06/19/23 09:05 Dose: 40 mg Dextrose (Dextrose 50 % 25 Gm/50 Ml Syringe) 25 gm IVPUSH Q15M PRN; Protocol PRN Reason: per Hypoglycemia Standing Ord. Donepezil HCl (Donepezil Hcl 10 Mg Tablet) 10 mg PO BEDTIME [facility] Last Admin: 06/18/23 20:28 Dose: 10 mg Empagliflozin (Empagliflozin 25 Mg Tablet) 25 mg PO DAILY [facility] Last Admin: 06/19/23 09:06 Dose: 25 mg Famotidine (Famotidine 20 Mg Tablet) 20 mg PO DAILY [facility] Last Admin: 06/19/23 09:07 Dose: 20 mg Glucose (Glucose Gel 15 Gm Gel..Gram.) 15 gm PO Q15M PRN; Protocol PRN Reason: per Hypoglycemia Standing Ord. Haloperidol (Haloperidol 1 Mg Tablet) 4 mg PO BEDTIME [facility] Last Admin: 06/18/23 20:25 Dose: 4 mg Insulin Glargine (Insulin Glargine,Hum.Rec.Anlog 100 Unit/Ml 10 Ml Vial) 8 unit SUBCUT DAILY [facility] Last Admin: 06/19/23 09:07 Dose: 8 unit Insulin Human Lispro (Insulin Lispro 100 Unit/Ml 3 Ml Vial) 0 unit SUBCUT QIDACHS [facility]; Protocol Last Admin: 06/19/23 09:04 Dose: Not Given Magnesium Hydroxide (Milk Of Magnesia 30 Ml Oral.Susp) 30 ml PO DAILY PRN PRN Reason: Constipation Memantine (Memantine Hcl 10 Mg Tablet) 10 mg PO BID [facility] Last Admin: 06/19/23 09:06 Dose: 10 mg Metformin HCl (Metformin Hcl 1,000 Mg Tablet) 1,000 mg PO BID [facility] Last Admin: 06/19/23 09:06 Dose: 1,000 mg Olanzapine (Olanzapine 2.5 Mg Tablet) 2.5 mg PO Q4H PRN PRN Reason: anxiety/agitation Last Admin: 04/29/23 17:17 Dose: 2.5 mg Omeprazole (Omeprazole 20 Mg Capsule.Dr) 20 mg PO DAILY [facility] Last Admin: 06/19/23 09:05 Dose: 20 mg Prednisone (Prednisone 10 Mg Tablet) 10 mg PO DAILY [facility] Last Admin: 06/19/23 09:07 Dose: 10 mg Sertraline HCl (Sertraline Hcl 100 Mg Tablet) 100 mg PO DAILY [facility] Last Admin: 06/19/23 09:06 Dose: 100 mg Trazodone HCl (Trazodone Hcl 50 Mg Tablet) 50 mg PO BEDTIME MRX1 PRN PRN Reason: Insomnia Last Admin: 06/12/23 21:31 Dose: 50 mg Allergies Allergies Allergy/AdvReac Type Severity Reaction Status Date / Time No Known Allergies Allergy Verified 03/23/23 18:13 Assessment & Plan Assessment & Plan (1) Dementia: Status: Acute Code(s): F03.90 - Unspecified dementia, unspecified severity, without behavioral disturbance, psychotic disturbance, mood disturbance, and anxiety Assessment and Plan: 57 years old woman with somewhat rapidly progressing dementia or symptoms of dementia with CSF protein of 88 but otherwise no definite clue about her diagnosis. I discussed the case with neurology service at [facility] and they suggested that the workup has been appropriate and thorough and it was not clear if any further investigations were needed. Also, they did not have beds available for transfer According to their experience, this level of CSF protein could be seen and degenerative disorders but could also be seen in some type of spine pathology, which we have not investigated. In any case, high CSF protein without elevation of cells and without any significant brain lesions on MRI, does not suggest malignancy or vasculitis type of pathology. At this time, after discussing the case with the neurologist in [place], my recommendation is to treat her for degenerative dementia appearing in young age. Some CSF tests are pending which may confirm this notion. PET scan can also help. On the other hand, further CSF analysis and investigations for vasculitis like brain biopsy are not warranted. As far as treatment of dementia is concerned, it is symptomatic. I would start with donepezil 5 mg daily and after a week would add memantine 5 mg twice a day. These are the 2 types of medicines available at this time. Finally, her placement could be an issue as she would not be able to live independently Plan 05/05/23 Pt with gross disorganization b sister give hx of more gradual deterioration neuro note reviewed chart reviewed start aricept some csf results pending consider pet if available ?05/07/2023: No changes to current treatment plan.? Treatment team working on complex disposition which may include instituted living in [place] 05/08 continue tx. 05/09 continue tx. 05/10:? neuro believes Dx more likely dementia at this point, consulted with [place] neuro who informed him protein of 88 may sometimes be seen in dementia or spinal disorders and that w/u thus far here had been thorough and adequate.? plan to treat as dementia for now.? neuro rec starting donepezil and 1 week later memantine.? donepezil started 5 days ago, memantine scheduled to be started in 3 days.? 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 per review of [facility], their recommended taper for this pt's duration of therapy and daily dose is to reduce by 5 mg/day every 1-2 weeks.? as her time on steroids has been relatively short, we would proceed with the more aggressive taper.? in any event, dosing to be reduced by 5 mg/day as of today. 05/11: all labs results in, positives are for elevated CSF protein/albumin and pattern of CSF protein c/w alzheimer's dementia. continue induction on cholinesterase inhibitor, pednisone taper, work on dispo planning. 05/12: no change in presentation. discharge planning aggressively underway. start memantine tomorrow. currently planning for discharge monday. 05/13: memantine started today. decrease zyprexa at HS from 5 mg to 2.5 mg in attempt to decrease overall sedation. plan to decrease prednisone by 5 mg/day on monday. 05/14: continue current mgmt. decrease prednisone by 5 mg/day as of tomorrow morning. dispo planning underway. 05/15: continue current mgmt. family meeting tomorrow with pt's daughter and HCP, bakari. 05/16: family mtg held. SW looking into rest homes, family to pursue involving extended family for a place for pt to stay. FSBS elevated, prednisone taper ongoing, SSI being used. 05/17: no change in mgmt. met with [facility] to discuss dispo options. rest home is not an option, STR does not appear to be likely to be an option but is being pursued today. awaiting word from daughter on option to DC to brother's home. will need snf care daily for DM mgmt until no longer requiring SSI, however. per report, her insurance does not cover VNA. 05/18: stable presentation. requesting new MoCA and ACLS as pt's cognition seems to have improved slightly since treatment for AD began. 05/19: stable presentation. daughter working on dispo options. ACLS unchanged from prior. T/C transfer to [facility] today. continue prednisone taper monday. 05/20 Less agitated. No med changes today. 05/21: prednisone taper in process, consider transfer to [facility] 05/22/2023 Hospitalist consult regarding hyperglycemia consider stopping olanzapine and changing to antipsychotic if needed lowered tendency to increase blood sugars. Discharge planning AFTER DISCUSSION WITH MARGARITA PEREZ THE PATIENT WAS PLACED LONG-ACTING INSULIN GLARGINE 05/23: FSBS trending down. continue current mgmt. T/C change to typical anti-psychotic. case d/w Dr. Trotter. 05/24: stable. DCed zyprexa and started haldol 2 mg QHS. completed review with insurance company . continue to seek placement at [facility]. 05/25: increase HS haldol to 4 mg, otherwise continue current mgmt. stable presentation. 05/26: no change in presentation. continue current mgmt. 05/27: no change in presentation. continue current mgmt. 05/28: no change in presentation. continue current mgmt. 05/29: no change, continue. 05/30: no change, continue. 05/31: FSBS trending better, recently mostly below 200. otherwise no changes. continue current mgmt. 06/01: FSBS trending better, recently mostly below 200. otherwise no changes. continue current mgmt. daughter has not returned any of 's calls for the past week. 06/02: decrease glargine from 10 units daily to 8 units daily as pt's FSBS have started to come under 100. decrease prednisone this monday and the following monday (orders written). pending placement and getting off of insulin. 06/03 keep same treatment. 06/04 keep same treatment 06/05/23 Pt seen cont tx plan 06/06/2023 Consider increase Namenda transfer to [facility] for more supervision and structured care. Discharge planning would benefit from eventual locked assisted living if possible case reviewed extensively with social Work there has been difficulty coordinating with healthcare proxy Plan 1. Continue with Aricept 10 mg p.o. q.h.s., Namenda 10 mg p.o. b.i.d. to target dementia. 2. Increase all of up to 100 mg p.o. daily on June 14. 3. Waiting for placement. 4. Filing for guardianship. Reason for continued inpatient stay Substantial Risk for: inability to function, rapid decompensation and med/psych decompensation Time Spent With Patient Time: Total time managing care of this patient today _20___ minutes.
[2023-06-19 11:34] LABS: Glucose, Whole Blood 157 mg/dL (60-115)
[2023-06-19] MEDS: Insulin Lispro 100 UNIT/ML 3 ML VIAL SUBCUT ×3 (11:53→20:56)
[2023-06-19 16:18] LABS: Glucose, Whole Blood 173 mg/dL (60-115)
[2023-06-19 18:00] VITALS: BP 117/69; PULSE 66; RESP 17; TEMP 36.4; O2SAT 96
[2023-06-19] MEDS: Donepezil HCl 10 MG TABLET PO (20:26)
[2023-06-19] MEDS: traZODone HCL 50 MG TABLET PO (20:26)
[2023-06-19] MEDS: HaloperidoL 1 MG TABLET 4 MG PO (20:26)
[2023-06-19 21:22] LABS: Glucose, Whole Blood 243 mg/dL (60-115)
[2023-06-20 07:47] LABS: Glucose, Whole Blood 91 mg/dL (60-115)
[2023-06-20 08:10] VITALS: BP 128/79; PULSE 84; RESP 18; TEMP 37.1; O2SAT 96
[2023-06-20] MEDS: Insulin Glargine,Hum.rec.anlog 100 UNIT/ML 10 ML VIAL 8 UNIT SUBCUT (08:32)
[2023-06-20] MEDS: Famotidine 20 MG TABLET PO (08:32)
[2023-06-20] MEDS: metFORMIN HCl 1,000 MG TABLET 1000 MG PO ×2 (08:33→19:48)
[2023-06-20] MEDS: predniSONE 10 MG TABLET PO (08:33)
[2023-06-20] MEDS: Atorvastatin Calcium 40 MG TABLET PO (08:33)
[2023-06-20] MEDS: Memantine HCl 10 MG TABLET PO ×2 (08:33→19:48)
[2023-06-20] MEDS: Omeprazole 20 MG CAPSULE.DR PO (08:33)
[2023-06-20] MEDS: Empagliflozin 25 MG TABLET PO (08:34)
[2023-06-20] MEDS: Sertraline HCL 100 MG TABLET PO (08:34)
[2023-06-20 11:27] LABS: Glucose, Whole Blood 145 mg/dL (60-115)
--- NOTE | 2023-06-20 12:21 | HO.PSYCHPN ---
Subjective Subjective Date of Service: 06/20/23 Reason For Visit: hallucinations confusion Subjective Notes: Conditional Voluntary Interim History: The nursing staff reported the patient had being in her bed all night, she denies suicidal or homicidal ideation but she looks despondent. On interview the patient is confused with delayed responses but no changes in her mental status. Waiting for placement. Mental Status Exam Mental Status Exam Patient Appearance: Appropriate Patient Orientation: Person and Situation Level of Consciousness: Awake and Appropriate Patient Behavior: Guarded and Passive Mood Description: Calm Affect Description: Constricted Patient Cognition Impaired: Yes Ability to Follow Directions: Good Speech Pattern: Clear Hallucinations: None Delusions: Not Present Thought Process: Linear Thought Content: positive for Circum[place] Judgement: Fair Diagnostics Vital Signs (24Hr): Vital Signs - 24 hr 06/19/23 18:00 06/20/23 08:10 Temperature 97.6 F 98.7 F Pulse Rate 66 84 Respiratory Rate 17 18 Blood Pressure 117/69 128/79 Pulse Oximetry 96 96 Oxygen Delivery Method Room Air Room Air BMI result Body Mass Index 28.9 Labs 04/08/23 09:08 06/17/23 07:26 Labs: Laboratory Results - last 48 hr 06/18/23 06/18/23 06/19/23 16:08 20:32 07:48 POC Glucose 106 125 H 110 06/19/23 06/19/23 06/19/23 11:29 16:11 20:39 POC Glucose 157 H 173 H 243 H 06/20/23 06/20/23 07:37 11:17 POC Glucose 91 145 H Imaging Radiology Impressions: ITS Impressions Brain MRI 04/03/23 15:30 IMPRESSION: No acute infarct, mass lesion, intracranial hemorrhage, or evidence of hydrocephalus. Mild nonspecific T2/FLAIR hyperintensity in the cerebral white matter and danny presumably on the basis of chronic microangiopathy. Medications Medications Current Medications Acetaminophen (Acetaminophen 325 Mg Tablet) 650 mg PO Q6H PRN PRN Reason: Headache/Pain Mild Scale (1-3) Last Admin: 05/06/23 20:10 Dose: 650 mg Al Hydroxide/Mg Hydroxide (Magnesium Hydrox/Alum Hydrox 30 Ml Oral.Susp) 30 ml PO Q6H PRN PRN Reason: Heartburn/Nausea Atorvastatin Calcium (Atorvastatin Calcium 40 Mg Tablet) 40 mg PO DAILY [facility] Last Admin: 06/20/23 08:33 Dose: 40 mg Dextrose (Dextrose 50 % 25 Gm/50 Ml Syringe) 25 gm IVPUSH Q15M PRN; Protocol PRN Reason: per Hypoglycemia Standing Ord. Donepezil HCl (Donepezil Hcl 10 Mg Tablet) 10 mg PO BEDTIME [facility] Last Admin: 06/19/23 20:26 Dose: 10 mg Empagliflozin (Empagliflozin 25 Mg Tablet) 25 mg PO DAILY [facility] Last Admin: 06/20/23 08:34 Dose: 25 mg Famotidine (Famotidine 20 Mg Tablet) 20 mg PO DAILY [facility] Last Admin: 06/20/23 08:32 Dose: 20 mg Glucose (Glucose Gel 15 Gm Gel..Gram.) 15 gm PO Q15M PRN; Protocol PRN Reason: per Hypoglycemia Standing Ord. Haloperidol (Haloperidol 1 Mg Tablet) 4 mg PO BEDTIME [facility] Last Admin: 06/19/23 20:26 Dose: 4 mg Insulin Glargine (Insulin Glargine,Hum.Rec.Anlog 100 Unit/Ml 10 Ml Vial) 8 unit SUBCUT DAILY [facility] Last Admin: 06/20/23 08:32 Dose: 8 unit Insulin Human Lispro (Insulin Lispro 100 Unit/Ml 3 Ml Vial) 0 unit SUBCUT QIDACHS [facility]; Protocol Last Admin: 06/20/23 11:30 Dose: Not Given Magnesium Hydroxide (Milk Of Magnesia 30 Ml Oral.Susp) 30 ml PO DAILY PRN PRN Reason: Constipation Memantine (Memantine Hcl 10 Mg Tablet) 10 mg PO BID [facility] Last Admin: 06/20/23 08:33 Dose: 10 mg Metformin HCl (Metformin Hcl 1,000 Mg Tablet) 1,000 mg PO BID [facility] Last Admin: 06/20/23 08:33 Dose: 1,000 mg Olanzapine (Olanzapine 2.5 Mg Tablet) 2.5 mg PO Q4H PRN PRN Reason: anxiety/agitation Last Admin: 04/29/23 17:17 Dose: 2.5 mg Omeprazole (Omeprazole 20 Mg Capsule.Dr) 20 mg PO DAILY [facility] Last Admin: 06/20/23 08:33 Dose: 20 mg Prednisone (Prednisone 10 Mg Tablet) 10 mg PO DAILY [facility] Last Admin: 06/20/23 08:33 Dose: 10 mg Sertraline HCl (Sertraline Hcl 100 Mg Tablet) 100 mg PO DAILY [facility] Last Admin: 06/20/23 08:34 Dose: 100 mg Trazodone HCl (Trazodone Hcl 50 Mg Tablet) 50 mg PO BEDTIME MRX1 PRN PRN Reason: Insomnia Last Admin: 06/19/23 20:26 Dose: 50 mg Allergies Allergies Allergy/AdvReac Type Severity Reaction Status Date / Time No Known Allergies Allergy Verified 03/23/23 18:13 Assessment & Plan Assessment & Plan (1) Dementia: Status: Acute Code(s): F03.90 - Unspecified dementia, unspecified severity, without behavioral disturbance, psychotic disturbance, mood disturbance, and anxiety Assessment and Plan: 57 years old woman with somewhat rapidly progressing dementia or symptoms of dementia with CSF protein of 88 but otherwise no definite clue about her diagnosis. I discussed the case with neurology service at [facility] and they suggested that the workup has been appropriate and thorough and it was not clear if any further investigations were needed. Also, they did not have beds available for transfer According to their experience, this level of CSF protein could be seen and degenerative disorders but could also be seen in some type of spine pathology, which we have not investigated. In any case, high CSF protein without elevation of cells and without any significant brain lesions on MRI, does not suggest malignancy or vasculitis type of pathology. At this time, after discussing the case with the neurologist in [place], my recommendation is to treat her for degenerative dementia appearing in young age. Some CSF tests are pending which may confirm this notion. PET scan can also help. On the other hand, further CSF analysis and investigations for vasculitis like brain biopsy are not warranted. As far as treatment of dementia is concerned, it is symptomatic. I would start with donepezil 5 mg daily and after a week would add memantine 5 mg twice a day. These are the 2 types of medicines available at this time. Finally, her placement could be an issue as she would not be able to live independently Plan 05/05/23 Pt with gross disorganization b sister give hx of more gradual deterioration neuro note reviewed chart reviewed start aricept some csf results pending consider pet if available ?05/07/2023: No changes to current treatment plan.? Treatment team working on complex disposition which may include instituted living in [place] 05/08 continue tx. 05/09 continue tx. 05/10:? neuro believes Dx more likely dementia at this point, consulted with [place] neuro who informed him protein of 88 may sometimes be seen in dementia or spinal disorders and that w/u thus far here had been thorough and adequate.? plan to treat as dementia for now.? neuro rec starting donepezil and 1 week later memantine.? donepezil started 5 days ago, memantine scheduled to be started in 3 days.? 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 per review of [facility], their recommended taper for this pt's duration of therapy and daily dose is to reduce by 5 mg/day every 1-2 weeks.? as her time on steroids has been relatively short, we would proceed with the more aggressive taper.? in any event, dosing to be reduced by 5 mg/day as of today. 05/11: all labs results in, positives are for elevated CSF protein/albumin and pattern of CSF protein c/w alzheimer's dementia. continue induction on cholinesterase inhibitor, pednisone taper, work on dispo planning. 05/12: no change in presentation. discharge planning aggressively underway. start memantine tomorrow. currently planning for discharge monday. 05/13: memantine started today. decrease zyprexa at HS from 5 mg to 2.5 mg in attempt to decrease overall sedation. plan to decrease prednisone by 5 mg/day on monday. 05/14: continue current mgmt. decrease prednisone by 5 mg/day as of tomorrow morning. dispo planning underway. 05/15: continue current mgmt. family meeting tomorrow with pt's daughter and HCP, bakari. 05/16: family mtg held. SW looking into rest homes, family to pursue involving extended family for a place for pt to stay. FSBS elevated, prednisone taper ongoing, SSI being used. 05/17: no change in mgmt. met with [facility] to discuss dispo options. rest home is not an option, STR does not appear to be likely to be an option but is being pursued today. awaiting word from daughter on option to DC to brother's home. will need longterm care daily for DM mgmt until no longer requiring SSI, however. per report, her insurance does not cover VNA. 05/18: stable presentation. requesting new MoCA and ACLS as pt's cognition seems to have improved slightly since treatment for AD began. 05/19: stable presentation. daughter working on dispo options. ACLS unchanged from prior. T/C [facility] to [facility] today. continue prednisone taper monday. 05/20 Less agitated. No med changes today. 05/21: prednisone taper in process, [facility] 05/22/2023 Hospitalist consult regarding hyperglycemia consider stopping olanzapine and changing to antipsychotic if needed lowered tendency to increase blood sugars. Discharge planning AFTER DISCUSSION WITH MARGARITA PEREZ THE PATIENT WAS PLACED LONG-ACTING INSULIN GLARGINE 05/23: FSBS trending down. continue current mgmt. T/C change to typical anti-psychotic. case d/w Dr. Trotter. 05/24: stable. DCed zyprexa and started haldol 2 mg QHS. completed review with insurance company . [facility]. 05/25: increase HS haldol to 4 mg, otherwise continue current mgmt. stable presentation. 05/26: no change in presentation. continue current mgmt. 05/27: no change in presentation. continue current mgmt. 05/28: no change in presentation. continue current mgmt. 05/29: no change, continue. 05/30: no change, continue. 05/31: FSBS trending better, recently mostly below 200. otherwise no changes. continue current mgmt. 06/01: FSBS trending better, recently mostly below 200. otherwise no changes. continue current mgmt. daughter has not returned any of 's calls for the past week. 06/02: decrease glargine from 10 units daily to 8 units daily as pt's FSBS have started to come under 100. decrease prednisone this monday and the following monday (orders written). pending placement and getting off of insulin. 06/03 keep same treatment. 06/04 keep same treatment 06/05/23 Pt seen cont tx plan 06/06/2023 Consider increase Namenda transfer to [facility] for more supervision and structured care. Discharge planning would benefit from eventual locked assisted living if possible case reviewed extensively with social Work there has been difficulty coordinating with healthcare proxy Plan 1. Continue with Aricept 10 mg p.o. q.h.s., Namenda 10 mg p.o. b.i.d. to target dementia. 2. Increase all of up to 100 mg p.o. daily on June 14. 3. Waiting for placement. 4. Filing for guardianship. Reason for continued inpatient stay Substantial Risk for: inability to function, rapid decompensation and med/psych decompensation Time Spent With Patient Time: Total time managing care of this patient today __20__ minutes.
[2023-06-20 16:37] LABS: Glucose, Whole Blood 115 mg/dL (60-115)
[2023-06-20 18:00] VITALS: BP 133/61; PULSE 78; RESP 18; TEMP 37; O2SAT 96
[2023-06-20] MEDS: HaloperidoL 1 MG TABLET 4 MG PO (19:48)
[2023-06-20] MEDS: Donepezil HCl 10 MG TABLET PO (19:48)
[2023-06-20 20:52] LABS: Glucose, Whole Blood 223 mg/dL (60-115)
[2023-06-20] MEDS: Insulin Lispro 100 UNIT/ML 3 ML VIAL SUBCUT (20:55)
[2023-06-21 07:22] LABS: Glucose, Whole Blood 101 mg/dL (60-115)
[2023-06-21] MEDS: Sertraline HCL 100 MG TABLET PO (08:02)
[2023-06-21] MEDS: Insulin Glargine,Hum.rec.anlog 100 UNIT/ML 10 ML VIAL 8 UNIT SUBCUT (08:02)
[2023-06-21] MEDS: Famotidine 20 MG TABLET PO (08:02)
[2023-06-21] MEDS: predniSONE 10 MG TABLET PO (08:02)
[2023-06-21] MEDS: Omeprazole 20 MG CAPSULE.DR PO (08:02)
[2023-06-21] MEDS: metFORMIN HCl 1,000 MG TABLET 1000 MG PO ×2 (08:03→20:15)
[2023-06-21] MEDS: Atorvastatin Calcium 40 MG TABLET PO (08:03)
[2023-06-21] MEDS: Memantine HCl 10 MG TABLET PO ×2 (08:03→20:15)
[2023-06-21] MEDS: Empagliflozin 25 MG TABLET PO (08:03)
[2023-06-21 08:11] VITALS: BP 110/59; PULSE 65; RESP 18; TEMP 36.5; O2SAT 92
[2023-06-21 11:40] LABS: Glucose, Whole Blood 168 mg/dL (60-115)
[2023-06-21] MEDS: Insulin Lispro 100 UNIT/ML 3 ML VIAL SUBCUT ×3 (11:42→20:15)
--- NOTE | 2023-06-21 12:21 | P.PNPSI_ITS ---
Subjective Subjective Date of Service: 06/21/23 Reason For Visit: hallucinations confusion Subjective Notes: Conditional Voluntary Interim History: The nursing staff reported the patient had been compliant with treatment her appetite is less than before. No changes in her mental status pleasantly confused. On interview the patient denies new symptoms, waiting for placement. We already have file for guardianship since her healthcare proxy has not answered back and her is in a [place] [employer] right now. Mental Status Exam Mental Status Exam Patient Appearance: Well Grooomed and Appropriate Patient Orientation: Person and Situation Level of Consciousness: Awake and Appropriate Patient Behavior: Guarded and Passive Mood Description: Withdrawn Affect Description: Constricted Patient Cognition Impaired: Yes Ability to Follow Directions: Good Speech Pattern: Clear Hallucinations: None Delusions: Not Present Thought Process: Distracted Thought Content: positive for [place] and positive for Poverty of Content Judgement: Fair Diagnostics Vital Signs (24Hr): Vital Signs - 24 hr 06/20/23 18:00 06/21/23 08:11 Temperature 98.6 F 97.7 F Pulse Rate 78 65 Respiratory Rate 18 18 Blood Pressure 133/61 110/59 L Pulse Oximetry 96 92 Oxygen Delivery Method Room Air BMI result Body Mass Index 28.9 Labs 04/08/23 09:08 06/17/23 07:26 Labs: Laboratory Results - last 48 hr 06/19/23 06/19/23 06/20/23 16:11 20:39 07:37 POC Glucose 173 H 243 H 91 06/20/23 06/20/23 06/20/23 11:17 16:33 19:38 POC Glucose 145 H 115 223 H 06/21/23 06/21/23 07:15 11:37 POC Glucose 101 168 H Imaging Radiology Impressions: ITS Impressions Brain MRI 04/03/23 15:30 IMPRESSION: No acute infarct, mass lesion, intracranial hemorrhage, or evidence of hydrocephalus. Mild nonspecific T2/FLAIR hyperintensity in the cerebral white matter and danny presumably on the basis of chronic microangiopathy. Medications Medications Current Medications Acetaminophen (Acetaminophen 325 Mg Tablet) 650 mg PO Q6H PRN PRN Reason: Headache/Pain Mild Scale (1-3) Last Admin: 05/06/23 20:10 Dose: 650 mg Al Hydroxide/Mg Hydroxide (Magnesium Hydrox/Alum Hydrox 30 Ml Oral.Susp) 30 ml PO Q6H PRN PRN Reason: Heartburn/Nausea Atorvastatin Calcium (Atorvastatin Calcium 40 Mg Tablet) 40 mg PO DAILY [facility] Last Admin: 06/21/23 08:03 Dose: 40 mg Dextrose (Dextrose 50 % 25 Gm/50 Ml Syringe) 25 gm IVPUSH Q15M PRN; Protocol PRN Reason: per Hypoglycemia Standing Ord. Donepezil HCl (Donepezil Hcl 10 Mg Tablet) 10 mg PO BEDTIME [facility] Last Admin: 06/20/23 19:48 Dose: 10 mg Empagliflozin (Empagliflozin 25 Mg Tablet) 25 mg PO DAILY [facility] Last Admin: 06/21/23 08:03 Dose: 25 mg Famotidine (Famotidine 20 Mg Tablet) 20 mg PO DAILY [facility] Last Admin: 06/21/23 08:02 Dose: 20 mg Glucose (Glucose Gel 15 Gm Gel..Gram.) 15 gm PO Q15M PRN; Protocol PRN Reason: per Hypoglycemia Standing Ord. Haloperidol (Haloperidol 1 Mg Tablet) 4 mg PO BEDTIME [facility] Last Admin: 06/20/23 19:48 Dose: 4 mg Insulin Glargine (Insulin Glargine,Hum.Rec.Anlog 100 Unit/Ml 10 Ml Vial) 8 unit SUBCUT DAILY [facility] Last Admin: 06/21/23 08:02 Dose: 8 unit Insulin Human Lispro (Insulin Lispro 100 Unit/Ml 3 Ml Vial) 0 unit SUBCUT QIDACHS [facility]; Protocol Last Admin: 06/21/23 11:42 Dose: 2 unit Magnesium Hydroxide (Milk Of Magnesia 30 Ml Oral.Susp) 30 ml PO DAILY PRN PRN Reason: Constipation Memantine (Memantine Hcl 10 Mg Tablet) 10 mg PO BID [facility] Last Admin: 06/21/23 08:03 Dose: 10 mg Metformin HCl (Metformin Hcl 1,000 Mg Tablet) 1,000 mg PO BID [facility] Last Admin: 06/21/23 08:03 Dose: 1,000 mg Olanzapine (Olanzapine 2.5 Mg Tablet) 2.5 mg PO Q4H PRN PRN Reason: anxiety/agitation Last Admin: 04/29/23 17:17 Dose: 2.5 mg Omeprazole (Omeprazole 20 Mg Capsule.Dr) 20 mg PO DAILY [facility] Last Admin: 06/21/23 08:02 Dose: 20 mg Prednisone (Prednisone 10 Mg Tablet) 10 mg PO DAILY [facility] Last Admin: 06/21/23 08:02 Dose: 10 mg Sertraline HCl (Sertraline Hcl 100 Mg Tablet) 100 mg PO DAILY [facility] Last Admin: 06/21/23 08:02 Dose: 100 mg Trazodone HCl (Trazodone Hcl 50 Mg Tablet) 50 mg PO BEDTIME MRX1 PRN PRN Reason: Insomnia Last Admin: 06/19/23 20:26 Dose: 50 mg Allergies Allergies Allergy/AdvReac Type Severity Reaction Status Date / Time No Known Allergies Allergy Verified 03/23/23 18:13 Assessment & Plan Assessment & Plan (1) Dementia: Status: Acute Code(s): F03.90 - Unspecified dementia, unspecified severity, without behavioral disturbance, psychotic disturbance, mood disturbance, and anxiety Assessment and Plan: 57 years old woman with somewhat rapidly progressing dementia or symptoms of dementia with CSF protein of 88 but otherwise no definite clue about her diagnosis. I discussed the case with neurology service at [facility] and they suggested that the workup has been appropriate and thorough and it was not clear if any further investigations were needed. Also, they did not have beds available for transfer According to their experience, this level of CSF protein could be seen and degenerative disorders but could also be seen in some type of spine pathology, which we have not investigated. In any case, high CSF protein without elevation of cells and without any significant brain lesions on MRI, does not suggest malignancy or vasculitis type of pathology. At this time, after discussing the case with the neurologist in [place], my recommendation is to treat her for degenerative dementia appearing in young age. Some CSF tests are pending which may confirm this notion. PET scan can also help. On the other hand, further CSF analysis and investigations for vasculitis like brain biopsy are not warranted. As far as treatment of dementia is concerned, it is symptomatic. I would start with donepezil 5 mg daily and after a week would add memantine 5 mg twice a day. These are the 2 types of medicines available at this time. Finally, her placement could be an issue as she would not be able to live independently Plan 05/05/23 Pt with gross disorganization b sister give hx of more gradual deterioration neuro note reviewed chart reviewed start aricept some csf results pending consider pet if available ?05/07/2023: No changes to current treatment plan.? Treatment team working on complex disposition which may include instituted living in [place] 05/08 continue tx. 05/09 continue tx. 05/10:? neuro believes Dx more likely dementia at this point, consulted with [facility] who informed him protein of 88 may sometimes be seen in dementia or spinal disorders and that w/u thus far here had been thorough and adequate.? plan to treat as dementia for now.? neuro rec starting donepezil and 1 week later memantine.? donepezil started 5 days ago, memantine scheduled to be started in 3 days.? 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 per review of [employer] their recommended taper for this pt's duration of therapy and daily dose is to reduce by 5 mg/day every 1-2 weeks.? as her time on steroids has been relatively short, we would proceed with the more aggressive taper.? in any event, dosing to be reduced by 5 mg/day as of today. 05/11: all labs results in, positives are for elevated CSF protein/albumin and pattern of CSF protein c/w alzheimer's dementia. continue induction on cholinesterase inhibitor, pednisone taper, work on dispo planning. 05/12: no change in presentation. discharge planning aggressively underway. start memantine tomorrow. currently planning for discharge monday. 05/13: memantine started today. decrease zyprexa at HS from 5 mg to 2.5 mg in attempt to decrease overall sedation. plan to decrease prednisone by 5 mg/day on monday. 05/14: continue current mgmt. decrease prednisone by 5 mg/day as of tomorrow morning. dispo planning underway. 05/15: continue current mgmt. family meeting tomorrow with pt's daughter and HCP, bakari. 05/16: family mtg held. SW looking into rest homes, family to pursue involving extended family for a place for pt to stay. FSBS elevated, prednisone taper ongoing, SSI being used. 05/17: no change in mgmt. met with [facility] to discuss dispo options. rest home is not an option, STR does not appear to be likely to be an option but is being pursued today. awaiting word from daughter on option to DC to brother's home. will need group home care daily for DM mgmt until no longer requiring SSI, however. per report, her insurance does not cover VNA. 05/18: stable presentation. requesting new MoCA and ACLS as pt's cognition seems to have improved slightly since treatment for AD began. 05/19: stable presentation. daughter working on dispo options. ACLS unchanged from prior. T/C transfer to [facility] today. continue prednisone taper monday. 05/20 Less agitated. No med changes today. 05/21: prednisone taper in process, consider transfer to [facility] 05/22/2023 Hospitalist consult regarding hyperglycemia consider stopping olanzapine and changing to antipsychotic if needed lowered tendency to increase blood sugars. Discharge planning AFTER DISCUSSION WITH MARGARITA PEREZ THE PATIENT WAS PLACED LONG-ACTING INSULIN GLARGINE 05/23: FSBS trending down. continue current mgmt. T/C change to typical anti- psychotic. case d/w Dr. Trotter. 05/24: stable. DCed zyprexa and started haldol 2 mg QHS. completed review with insurance company MD. [facility]. 05/25: increase HS haldol to 4 mg, otherwise continue current mgmt. stable presentation. 05/26: no change in presentation. continue current mgmt. 05/27: no change in presentation. continue current mgmt. 05/28: no change in presentation. continue current mgmt. 05/29: no change, continue. 05/30: no change, continue. 05/31: FSBS trending better, recently mostly below 200. otherwise no changes. continue current mgmt. 06/01: FSBS trending better, recently mostly below 200. otherwise no changes. continue current mgmt. daughter has not returned any of 's calls for the past week. 06/02: decrease glargine from 10 units daily to 8 units daily as pt's FSBS have started to come under 100. decrease prednisone this monday and the following monday (orders written). pending placement and getting off of insulin. 06/03 keep same treatment. 06/04 keep same treatment 06/05/23 Pt seen cont tx plan 06/06/2023 Consider increase Nam[facility] transfer to [facility] for more supervision and structured care. Discharge planning would benefit from eventual locked assisted living if possible case reviewed extensively with social Work there has been difficulty coordinating with healthcare proxy Plan 1. Continue with Aricept 10 mg p.o. q.h.s., Namenda 10 mg p.o. b.i.d. to target dementia. 2. Increase all of up to 100 mg p.o. daily on June 14. 3. Waiting for placement. 4. Filing for guardianship. Reason for continued inpatient stay Substantial Risk for: inability to function, rapid decompensation and med/psych decompensation Time Spent With Patient Time: Total time managing care of this patient today __20__ minutes.
[2023-06-21 16:47] LABS: Glucose, Whole Blood 152 mg/dL (60-115)
[2023-06-21 19:32] LABS: Glucose, Whole Blood 176 mg/dL (60-115)
[2023-06-21 19:40] VITALS: BP 112/59; PULSE 69; RESP 18; TEMP 36.5; O2SAT 96
[2023-06-21] MEDS: Donepezil HCl 10 MG TABLET PO (20:15)
[2023-06-21] MEDS: HaloperidoL 1 MG TABLET 4 MG PO (20:15)
[2023-06-22 06:55] LABS: Glucose, Whole Blood 93 mg/dL (60-115)
[2023-06-22 07:00] VITALS: BMI 28.9
[2023-06-22 08:01] VITALS: BP 118/69; PULSE 80; RESP 14; TEMP 37.1; O2SAT 95
[2023-06-22] MEDS: Empagliflozin 25 MG TABLET PO (08:05)
[2023-06-22] MEDS: Sertraline HCL 100 MG TABLET PO (08:05)
[2023-06-22] MEDS: predniSONE 10 MG TABLET PO (08:05)
[2023-06-22] MEDS: metFORMIN HCl 1,000 MG TABLET 1000 MG PO ×2 (08:05→20:39)
[2023-06-22] MEDS: Famotidine 20 MG TABLET PO (08:05)
[2023-06-22] MEDS: Memantine HCl 10 MG TABLET PO ×2 (08:05→20:40)
[2023-06-22] MEDS: Atorvastatin Calcium 40 MG TABLET PO (08:05)
[2023-06-22] MEDS: Omeprazole 20 MG CAPSULE.DR PO (08:05)
[2023-06-22] MEDS: Insulin Glargine,Hum.rec.anlog 100 UNIT/ML 10 ML VIAL 8 UNIT SUBCUT (08:57)
--- NOTE | 2023-06-22 12:35 | HO.PSYCHPN ---
Subjective Subjective Date of Service: 06/22/23 Reason For Visit: hallucinations confusion Subjective Notes: Conditional Voluntary Healthcare Proxy: Yes Interim History: Per nursing, pt had episode of incontinence while in the bathroom as she did not recognize the toilet. Pt reports she is good. She denies any physical concern. No recollection about coming from the unit upstairs, or who long she has been here or the month. She denies SI/HI. No behavioral concerns. Medication Compliance: Yes Review of Systems Review of Systems No seizure or similar episode no stroke-like symptoms Yes all other systems are reviewed and are negative and Unobtainable due to mental status Constitutional: Reports as per HPI, Denies chills, Denies fatigue, Denies fever(s) and Denies headache(s) Denies headache(s) Cardiovascular: Denies chest pain and Denies dyspnea Respiratory: Denies cough and Denies dyspnea Gastrointestinal: Denies abdominal pain, Denies constipation and Denies vomiting Denies headache(s) and Denies focal weakness Psychiatric: Denies auditory hallucinations, Reports hallucinations (Per the patient's daughter. Patient denies this), Denies tactile hallucinations and Denies suicidal ideation Endocrine: Denies fatigue Mental Status Exam Mental Status Exam Patient Appearance: Well Grooomed and Appropriate Patient Orientation: Person and Situation Level of Consciousness: Awake and Appropriate Patient Behavior: Guarded and Passive Mood Description: Withdrawn Affect Description: Constricted Patient Cognition Impaired: Yes Ability to Follow Directions: Good Speech Pattern: Clear Memory Description: Working Impaired Diagnostics Vital Signs (24Hr): Vital Signs - 24 hr 06/21/23 19:40 06/22/23 08:01 Temperature 97.7 F 98.8 F Pulse Rate 69 80 Respiratory Rate 18 14 Blood Pressure 112/59 L 118/69 Pulse Oximetry 96 95 Oxygen Delivery Method Room Air Room Air BMI result Body Mass Index 28.9 Labs 04/08/23 09:08 06/17/23 07:26 Labs: Laboratory Results - last 48 hr 06/20/23 06/20/23 06/21/23 16:33 19:38 07:15 POC Glucose 115 223 H 101 06/21/23 06/21/23 06/21/23 11:37 16:42 19:26 POC Glucose 168 H 152 H 176 H 06/22/23 06:39 POC Glucose 93 Imaging Radiology Impressions: ITS Impressions Brain MRI 04/03/23 15:30 IMPRESSION: No acute infarct, mass lesion, intracranial hemorrhage, or evidence of hydrocephalus. Mild nonspecific T2/FLAIR hyperintensity in the cerebral white matter and danny presumably on the basis of chronic microangiopathy. Medications Medications Current Medications Acetaminophen (Acetaminophen 325 Mg Tablet) 650 mg PO Q6H PRN PRN Reason: Headache/Pain Mild Scale (1-3) Last Admin: 05/06/23 20:10 Dose: 650 mg Al Hydroxide/Mg Hydroxide (Magnesium Hydrox/Alum Hydrox 30 Ml Oral.Susp) 30 ml PO Q6H PRN PRN Reason: Heartburn/Nausea Atorvastatin Calcium (Atorvastatin Calcium 40 Mg Tablet) 40 mg PO DAILY [facility] Last Admin: 06/22/23 08:05 Dose: 40 mg Dextrose (Dextrose 50 % 25 Gm/50 Ml Syringe) 25 gm IVPUSH Q15M PRN; Protocol PRN Reason: per Hypoglycemia Standing Ord. Donepezil HCl (Donepezil Hcl 10 Mg Tablet) 10 mg PO BEDTIME [facility] Last Admin: 06/21/23 20:15 Dose: 10 mg Empagliflozin (Empagliflozin 25 Mg Tablet) 25 mg PO DAILY [facility] Last Admin: 06/22/23 08:05 Dose: 25 mg Famotidine (Famotidine 20 Mg Tablet) 20 mg PO DAILY [facility] Last Admin: 06/22/23 08:05 Dose: 20 mg Glucose (Glucose Gel 15 Gm Gel..Gram.) 15 gm PO Q15M PRN; Protocol PRN Reason: per Hypoglycemia Standing Ord. Haloperidol (Haloperidol 1 Mg Tablet) 4 mg PO BEDTIME [facility] Last Admin: 06/21/23 20:15 Dose: 4 mg Insulin Glargine (Insulin Glargine,Hum.Rec.Anlog 100 Unit/Ml 10 Ml Vial) 8 unit SUBCUT DAILY [facility] Last Admin: 06/22/23 08:57 Dose: 8 unit Insulin Human Lispro (Insulin Lispro 100 Unit/Ml 3 Ml Vial) 0 unit SUBCUT QIDACHS [facility]; Protocol Last Admin: 06/22/23 08:18 Dose: Not Given Magnesium Hydroxide (Milk Of Magnesia 30 Ml Oral.Susp) 30 ml PO DAILY PRN PRN Reason: Constipation Memantine (Memantine Hcl 10 Mg Tablet) 10 mg PO BID [facility] Last Admin: 06/22/23 08:05 Dose: 10 mg Metformin HCl (Metformin Hcl 1,000 Mg Tablet) 1,000 mg PO BID [facility] Last Admin: 06/22/23 08:05 Dose: 1,000 mg Olanzapine (Olanzapine 2.5 Mg Tablet) 2.5 mg PO Q4H PRN PRN Reason: anxiety/agitation Last Admin: 04/29/23 17:17 Dose: 2.5 mg Omeprazole (Omeprazole 20 Mg Capsule.Dr) 20 mg PO DAILY [facility] Last Admin: 06/22/23 08:05 Dose: 20 mg Prednisone (Prednisone 10 Mg Tablet) 10 mg PO DAILY [facility] Last Admin: 06/22/23 08:05 Dose: 10 mg Sertraline HCl (Sertraline Hcl 100 Mg Tablet) 100 mg PO DAILY [facility] Last Admin: 06/22/23 08:05 Dose: 100 mg Trazodone HCl (Trazodone Hcl 50 Mg Tablet) 50 mg PO BEDTIME MRX1 PRN PRN Reason: Insomnia Last Admin: 06/19/23 20:26 Dose: 50 mg Allergies Allergies Allergy/AdvReac Type Severity Reaction Status Date / Time No Known Allergies Allergy Verified 03/23/23 18:13 Assessment & Plan Assessment & Plan (1) Dementia: Status: Acute Code(s): F03.90 - Unspecified dementia, unspecified severity, without behavioral disturbance, psychotic disturbance, mood disturbance, and anxiety Assessment and Plan: 57 years old woman with somewhat rapidly progressing dementia or symptoms of dementia with CSF protein of 88 but otherwise no definite clue about her diagnosis. I discussed the case with neurology service at [facility] and they suggested that the workup has been appropriate and thorough and it was not clear if any further investigations were needed. Also, they did not have beds available for transfer According to their experience, this level of CSF protein could be seen and degenerative disorders but could also be seen in some type of spine pathology, which we have not investigated. In any case, high CSF protein without elevation of cells and without any significant brain lesions on MRI, does not suggest malignancy or vasculitis type of pathology. At this time, after discussing the case with the neurologist in [place], my recommendation is to treat her for degenerative dementia appearing in young age. Some CSF tests are pending which may confirm this notion. PET scan can also help. On the other hand, further CSF analysis and investigations for vasculitis like brain biopsy are not warranted. As far as treatment of dementia is concerned, it is symptomatic. I would start with donepezil 5 mg daily and after a week would add memantine 5 mg twice a day. These are the 2 types of medicines available at this time. Finally, her placement could be an issue as she would not be able to live independently Plan 05/05/23 Pt with gross disorganization b sister give hx of more gradual deterioration neuro note reviewed chart reviewed start aricept some csf results pending consider pet if available ?05/07/2023: No changes to current treatment plan.? Treatment team working on complex disposition which may include instituted living in [place] 05/08 continue tx. 05/09 continue tx. 05/10:? neuro believes Dx more likely dementia at this point, consulted with [place] neuro who informed him protein of 88 may sometimes be seen in dementia or spinal disorders and that w/u thus far here had been thorough and adequate.? plan to treat as dementia for now.? neuro rec starting donepezil and 1 week later memantine.? donepezil started 5 days ago, memantine scheduled to be started in 3 days.? 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 per review of [employer], their recommended taper for this pt's duration of therapy and daily dose is to reduce by 5 mg/day every 1-2 weeks.? as her time on steroids has been relatively short, we would proceed with the more aggressive taper.? in any event, dosing to be reduced by 5 mg/day as of today. 05/11: all labs results in, positives are for elevated CSF protein/albumin and pattern of CSF protein c/w alzheimer's dementia. continue induction on cholinesterase inhibitor, pednisone taper, work on dispo planning. 05/12: no change in presentation. discharge planning aggressively underway. start memantine tomorrow. currently planning for discharge monday. 05/13: memantine started today. decrease zyprexa at HS from 5 mg to 2.5 mg in attempt to decrease overall sedation. plan to decrease prednisone by 5 mg/day on monday. 05/14: continue current mgmt. decrease prednisone by 5 mg/day as of tomorrow morning. dispo planning underway. 05/15: continue current mgmt. family meeting tomorrow with pt's daughter and HCP, bakari. 05/16: family mtg held. SW looking into rest homes, family to pursue involving extended family for a place for pt to stay. FSBS elevated, prednisone taper ongoing, SSI being used. 05/17: no change in mgmt. met with [facility] to discuss dispo options. rest home is not an option, STR does not appear to be likely to be an option but is being pursued today. awaiting word from daughter on option to DC to brother's home. will need shelter care daily for DM mgmt until no longer requiring SSI, however. per report, her insurance does not cover VNA. 05/18: stable presentation. requesting new MoCA and ACLS as pt's cognition seems to have improved slightly since treatment for AD began. 05/19: stable presentation. daughter working on dispo options. ACLS unchanged from prior. T/C transfer to [facility] today. continue prednisone taper monday. 05/20 Less agitated. No med changes today. 05/21: prednisone taper in process, consider transfer to [facility] 05/22/2023 Hospitalist consult regarding hyperglycemia consider stopping olanzapine and changing to antipsychotic if needed lowered tendency to increase blood sugars. Discharge planning AFTER DISCUSSION WITH MARGARITA PEREZ THE PATIENT WAS PLACED LONG-ACTING INSULIN GLARGINE 05/23: FSBS trending down. continue current mgmt. T/C change to typical anti-psychotic. case d/w Dr. Trotter. 05/24: stable. DCed zyprexa and started haldol 2 mg QHS. completed review with insurance company . continue to seek placement at assisted care facility. 05/25: increase HS haldol to 4 mg, otherwise continue current mgmt. stable presentation. 05/26: no change in presentation. continue current mgmt. 05/27: no change in presentation. continue current mgmt. 05/28: no change in presentation. continue current mgmt. 05/29: no change, continue. 05/30: no change, continue. 05/31: FSBS trending better, recently mostly below 200. otherwise no changes. continue current mgmt. 06/01: FSBS trending better, recently mostly below 200. otherwise no changes. continue current mgmt. daughter has not returned any of SW's calls for the past week. 06/02: decrease glargine from 10 units daily to 8 units daily as pt's FSBS have started to come under 100. decrease prednisone this monday and the following monday (orders written). pending placement and getting off of insulin. 06/03 keep same treatment. 06/04 keep same treatment 06/05/23 Pt seen cont tx plan 06/06/2023 Consider increase Namenda transfer to [facility] for more supervision and structured care. Discharge planning would benefit from eventual locked assisted living if possible case reviewed extensively with social Work there has been difficulty coordinating with healthcare proxy Plan 1. Continue with Aricept 10 mg p.o. q.h.s., Namenda 10 mg p.o. b.i.d. to target dementia. 2. Increase all of up to 100 mg p.o. daily on June 14. 3. Waiting for placement. 4. Filing for guardianship. 06/22 continue tx. Reason for continued inpatient stay Substantial Risk for: inability to function Time Spent With Patient Time: Total time managing care of this patient today ____ minutes.
[2023-06-22 16:13] LABS: Glucose, Whole Blood 187 mg/dL (60-115)
[2023-06-22] MEDS: Insulin Lispro 100 UNIT/ML 3 ML VIAL SUBCUT ×2 (16:35→20:38)
[2023-06-22 18:00] VITALS: BP 153/72; PULSE 75; RESP 16; TEMP 36.2; O2SAT 96
[2023-06-22 20:24] LABS: Glucose, Whole Blood 160 mg/dL (60-115)
[2023-06-22] MEDS: HaloperidoL 1 MG TABLET 4 MG PO (20:39)
[2023-06-22] MEDS: Donepezil HCl 10 MG TABLET PO (20:40)
[2023-06-23 06:57] LABS: Glucose, Whole Blood 111 mg/dL (60-115)
--- NOTE | 2023-06-23 07:58 | HO.PSYCHPN ---
Subjective Subjective Date of Service: 06/23/23 Reason For Visit: hallucinations confusion Subjective Notes: Conditional Voluntary Interim History: The nursing staff reported the patient had been alert oriented to self she answers with only yes or no questions she had been minimal participating even though pleasant and cooperative fully compliant with treatment. On interview the patient is pleasantly confused no new symptoms, waiting for placement. We have filed for guardianship since her healthcare proxy is not answering back and her is out on a Section 35. Mental Status Exam Mental Status Exam Patient Appearance: Well Grooomed and Appropriate Patient Orientation: Person Level of Consciousness: Awake and Disoriented Patient Behavior: Cooperative and Passive Mood Description: Withdrawn Affect Description: Constricted Patient Cognition Impaired: Yes Ability to Follow Directions: Good Speech Pattern: Clear Hallucinations: None Delusions: Not Present Thought Process: Distracted and Slowed Thinking Thought Content: positive for [place] and positive for Thought Blocking Judgement: Poor Diagnostics Vital Signs (24Hr): Vital Signs - 24 hr 06/22/23 08:01 06/22/23 18:00 Temperature 98.8 F 97.1 F Pulse Rate 80 75 Respiratory Rate 14 16 Blood Pressure 118/69 153/72 H Pulse Oximetry 95 96 Oxygen Delivery Method Room Air Room Air BMI result Body Mass Index 28.9 Labs 04/08/23 09:08 06/17/23 07:26 Labs: Laboratory Results - last 48 hr 06/21/23 06/21/23 06/21/23 11:37 16:42 19:26 POC Glucose 168 H 152 H 176 H 06/22/23 06/22/23 06/22/23 06:39 16:00 20:17 POC Glucose 93 187 H 160 H 06/23/23 06:45 POC Glucose 111 Imaging Radiology Impressions: ITS Impressions Brain MRI 04/03/23 15:30 IMPRESSION: No acute infarct, mass lesion, intracranial hemorrhage, or evidence of hydrocephalus. Mild nonspecific T2/FLAIR hyperintensity in the cerebral white matter and danny presumably on the basis of chronic microangiopathy. Medications Medications Current Medications Acetaminophen (Acetaminophen 325 Mg Tablet) 650 mg PO Q6H PRN PRN Reason: Headache/Pain Mild Scale (1-3) Last Admin: 05/06/23 20:10 Dose: 650 mg Al Hydroxide/Mg Hydroxide (Magnesium Hydrox/Alum Hydrox 30 Ml Oral.Susp) 30 ml PO Q6H PRN PRN Reason: Heartburn/Nausea Atorvastatin Calcium (Atorvastatin Calcium 40 Mg Tablet) 40 mg PO DAILY [facility] Last Admin: 06/22/23 08:05 Dose: 40 mg Dextrose (Dextrose 50 % 25 Gm/50 Ml Syringe) 25 gm IVPUSH Q15M PRN; Protocol PRN Reason: per Hypoglycemia Standing Ord. Donepezil HCl (Donepezil Hcl 10 Mg Tablet) 10 mg PO BEDTIME [facility] Last Admin: 06/22/23 20:40 Dose: 10 mg Empagliflozin (Empagliflozin 25 Mg Tablet) 25 mg PO DAILY [facility] Last Admin: 06/22/23 08:05 Dose: 25 mg Famotidine (Famotidine 20 Mg Tablet) 20 mg PO DAILY [facility] Last Admin: 06/22/23 08:05 Dose: 20 mg Glucose (Glucose Gel 15 Gm Gel..Gram.) 15 gm PO Q15M PRN; Protocol PRN Reason: per Hypoglycemia Standing Ord. Haloperidol (Haloperidol 1 Mg Tablet) 4 mg PO BEDTIME [facility] Last Admin: 06/22/23 20:39 Dose: 4 mg Insulin Glargine (Insulin Glargine,Hum.Rec.Anlog 100 Unit/Ml 10 Ml Vial) 8 unit SUBCUT DAILY [facility] Last Admin: 06/22/23 08:57 Dose: 8 unit Insulin Human Lispro (Insulin Lispro 100 Unit/Ml 3 Ml Vial) 0 unit SUBCUT QIDACHS [facility]; Protocol Last Admin: 06/22/23 20:38 Dose: 2 unit Magnesium Hydroxide (Milk Of Magnesia 30 Ml Oral.Susp) 30 ml PO DAILY PRN PRN Reason: Constipation Memantine (Memantine Hcl 10 Mg Tablet) 10 mg PO BID [facility] Last Admin: 06/22/23 20:40 Dose: 10 mg Metformin HCl (Metformin Hcl 1,000 Mg Tablet) 1,000 mg PO BID [facility] Last Admin: 06/22/23 20:39 Dose: 1,000 mg Olanzapine (Olanzapine 2.5 Mg Tablet) 2.5 mg PO Q4H PRN PRN Reason: anxiety/agitation Last Admin: 04/29/23 17:17 Dose: 2.5 mg Omeprazole (Omeprazole 20 Mg Capsule.Dr) 20 mg PO DAILY [facility] Last Admin: 06/22/23 08:05 Dose: 20 mg Prednisone (Prednisone 10 Mg Tablet) 10 mg PO DAILY [facility] Last Admin: 06/22/23 08:05 Dose: 10 mg Sertraline HCl (Sertraline Hcl 100 Mg Tablet) 100 mg PO DAILY [facility] Last Admin: 06/22/23 08:05 Dose: 100 mg Trazodone HCl (Trazodone Hcl 50 Mg Tablet) 50 mg PO BEDTIME MRX1 PRN PRN Reason: Insomnia Last Admin: 06/19/23 20:26 Dose: 50 mg Allergies Allergies Allergy/AdvReac Type Severity Reaction Status Date / Time No Known Allergies Allergy Verified 03/23/23 18:13 Assessment & Plan Assessment & Plan (1) Dementia: Status: Acute Code(s): F03.90 - Unspecified dementia, unspecified severity, without behavioral disturbance, psychotic disturbance, mood disturbance, and anxiety Assessment and Plan: 57 years old woman with somewhat rapidly progressing dementia or symptoms of dementia with CSF protein of 88 but otherwise no definite clue about her diagnosis. I discussed the case with neurology service at [facility] and they suggested that the workup has been appropriate and thorough and it was not clear if any further investigations were needed. Also, they did not have beds available for transfer According to their experience, this level of CSF protein could be seen and degenerative disorders but could also be seen in some type of spine pathology, which we have not investigated. In any case, high CSF protein without elevation of cells and without any significant brain lesions on MRI, does not suggest malignancy or vasculitis type of pathology. At this time, after discussing the case with the neurologist in [place], my recommendation is to treat her for degenerative dementia appearing in young age. Some CSF tests are pending which may confirm this notion. PET scan can also help. On the other hand, further CSF analysis and investigations for vasculitis like brain biopsy are not warranted. As far as treatment of dementia is concerned, it is symptomatic. I would start with donepezil 5 mg daily and after a week would add memantine 5 mg twice a day. These are the 2 types of medicines available at this time. Finally, her placement could be an issue as she would not be able to live independently Plan 05/05/23 Pt with gross disorganization b sister give hx of more gradual deterioration neuro note reviewed chart reviewed start aricept some csf results pending consider pet if available ?05/07/2023: No changes to current treatment plan.? Treatment team working on complex disposition which may include instituted living in [place] 05/08 continue tx. 05/09 continue tx. 05/10:? neuro believes Dx more likely dementia at this point, consulted with [facility] [facility] who informed him protein of 88 may sometimes be seen in dementia or spinal disorders and that w/u thus far here had been thorough and adequate.? plan to treat as dementia for now.? neuro rec starting donepezil and 1 week later memantine.? donepezil started 5 days ago, memantine scheduled to be started in 3 days.? 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 per review of [employer], their recommended taper for this pt's duration of therapy and daily dose is to reduce by 5 mg/day every 1-2 weeks.? as her time on steroids has been relatively short, we would proceed with the more aggressive taper.? in any event, dosing to be reduced by 5 mg/day as of today. 05/11: all labs results in, positives are for elevated CSF protein/albumin and pattern of CSF protein c/w alzheimer's dementia. continue induction on cholinesterase inhibitor, pednisone taper, work on dispo planning. 05/12: no change in presentation. discharge planning aggressively underway. start memantine tomorrow. currently planning for discharge monday. 05/13: memantine started today. decrease zyprexa at HS from 5 mg to 2.5 mg in attempt to decrease overall sedation. plan to decrease prednisone by 5 mg/day on monday. 05/14: continue current mgmt. decrease prednisone by 5 mg/day as of tomorrow morning. dispo planning underway. 05/15: continue current mgmt. family meeting tomorrow with pt's daughter and HCP, bakari. 05/16: family mtg held. SW looking into rest homes, family to pursue involving extended family for a place for pt to stay. FSBS elevated, prednisone taper ongoing, SSI being used. 05/17: no change in mgmt. met with [facility] to discuss dispo options. rest home is not an option, STR does not appear to be likely to be an option but is being pursued today. awaiting word from daughter on option to DC to brother's home. will need nursing home care daily for DM mgmt until no longer requiring SSI, however. per report, her insurance does not cover VNA. 05/18: stable presentation. requesting new MoCA and ACLS as pt's cognition seems to have improved slightly since treatment for AD began. 05/19: stable presentation. daughter working on dispo options. ACLS unchanged from prior. T/C transfer to [facility] today. continue prednisone taper monday. 05/20 Less agitated. No med changes today. 05/21: prednisone taper in process, consider transfer to [facility] 05/22/2023 Hospitalist consult regarding hyperglycemia consider stopping olanzapine and changing to antipsychotic if needed lowered tendency to increase blood sugars. Discharge planning AFTER DISCUSSION WITH MARGARITA PEREZ THE PATIENT WAS PLACED LONG-ACTING INSULIN GLARGINE 05/23: FSBS trending down. continue current mgmt. T/C change to typical anti-psychotic. case d/w Dr. Trotter. 05/24: stable. DCed zyprexa and started haldol 2 mg QHS. completed review with insurance company . continue to seek placement at correction care facility. 05/25: increase HS haldol to 4 mg, otherwise continue current mgmt. stable presentation. 05/26: no change in presentation. continue current mgmt. 05/27: no change in presentation. continue current mgmt. 05/28: no change in presentation. continue current mgmt. 05/29: no change, continue. 05/30: no change, continue. 05/31: FSBS trending better, recently mostly below 200. otherwise no changes. continue current mgmt. 06/01: FSBS trending better, recently mostly below 200. otherwise no changes. continue current mgmt. daughter has not returned any of 's calls for the past week. 06/02: decrease glargine from 10 units daily to 8 units daily as pt's FSBS have started to come under 100. decrease prednisone this monday and the following monday (orders written). pending placement and getting off of insulin. 06/03 keep same treatment. 06/04 keep same treatment 06/05/23 Pt seen cont tx plan 06/06/2023 Consider increase Namenda transfer to [facility] for more supervision and structured care. Discharge planning would benefit from eventual locked assisted living if possible case reviewed extensively with social Work there has been difficulty coordinating with healthcare proxy Plan 1. Continue with Aricept 10 mg p.o. q.h.s., Namenda 10 mg p.o. b.i.d. to target dementia. 2. Increase all of up to 100 mg p.o. daily on June 14. 3. Waiting for placement. 4. Filing for guardianship. Reason for continued inpatient stay Substantial Risk for: inability to function, rapid decompensation and med/psych decompensation Time Spent With Patient Time: Total time managing care of this patient today __20__ minutes.
[2023-06-23 08:00] VITALS: BP 133/69; PULSE 74; RESP 20; TEMP 37.1; O2SAT 95
[2023-06-23] MEDS: Insulin Glargine,Hum.rec.anlog 100 UNIT/ML 10 ML VIAL 8 UNIT SUBCUT (08:04)
[2023-06-23] MEDS: Famotidine 20 MG TABLET PO (08:05)
[2023-06-23] MEDS: metFORMIN HCl 1,000 MG TABLET 1000 MG PO ×2 (08:05→20:22)
[2023-06-23] MEDS: predniSONE 10 MG TABLET PO (08:05)
[2023-06-23] MEDS: Memantine HCl 10 MG TABLET PO ×2 (08:06→20:22)
[2023-06-23] MEDS: Sertraline HCL 100 MG TABLET PO (08:06)
[2023-06-23] MEDS: Empagliflozin 25 MG TABLET PO (08:06)
[2023-06-23] MEDS: Atorvastatin Calcium 40 MG TABLET PO (08:07)
[2023-06-23] MEDS: Omeprazole 20 MG CAPSULE.DR PO (08:07)
[2023-06-23 11:31] LABS: Glucose, Whole Blood 116 mg/dL (60-115)
[2023-06-23] MEDS: Loperamide HCl 2 MG CAPSULE 4 MG PO (12:03)
[2023-06-23] MEDS: Loperamide HCl 2 MG CAPSULE PO (14:52)
[2023-06-23 16:33] LABS: Glucose, Whole Blood 122 mg/dL (60-115)
[2023-06-23 18:00] VITALS: BP 112/56; PULSE 69; RESP 18; TEMP 37.2; O2SAT 92
[2023-06-23] MEDS: HaloperidoL 1 MG TABLET 4 MG PO (20:21)
[2023-06-23] MEDS: Donepezil HCl 10 MG TABLET PO (20:21)
[2023-06-23 20:35] LABS: Glucose, Whole Blood 172 mg/dL (60-115)
[2023-06-23] MEDS: Insulin Lispro 100 UNIT/ML 3 ML VIAL SUBCUT (20:39)
[2023-06-24 07:32] LABS: Estimated Glomerular Filt Rate > 60
[2023-06-24 08:19] VITALS: BP 140/62; PULSE 66; RESP 16; TEMP 36.9; O2SAT 93
[2023-06-24] MEDS: Sertraline HCL 100 MG TABLET PO (08:21)
[2023-06-24] MEDS: Famotidine 20 MG TABLET PO (08:21)
[2023-06-24] MEDS: Omeprazole 20 MG CAPSULE.DR PO (08:21)
[2023-06-24] MEDS: Atorvastatin Calcium 40 MG TABLET PO (08:21)
[2023-06-24] MEDS: metFORMIN HCl 1,000 MG TABLET 1000 MG PO ×2 (08:21→20:28)
[2023-06-24] MEDS: Memantine HCl 10 MG TABLET PO ×2 (08:21→20:28)
[2023-06-24] MEDS: Empagliflozin 25 MG TABLET PO (08:21)
[2023-06-24] MEDS: predniSONE 10 MG TABLET PO (08:21)
[2023-06-24] MEDS: Insulin Glargine,Hum.rec.anlog 100 UNIT/ML 10 ML VIAL 8 UNIT SUBCUT (08:21)
[2023-06-24 10:21] LABS: Glucose, Whole Blood 104 mg/dL (60-115)
[2023-06-24 11:32] LABS: Glucose, Whole Blood 163 mg/dL (60-115)
[2023-06-24] MEDS: Insulin Lispro 100 UNIT/ML 3 ML VIAL SUBCUT ×3 (11:34→20:35)
--- NOTE | 2023-06-24 15:21 | P.PNPSI_ITS ---
Subjective Subjective Date of Service: 06/24/23 Reason For Visit: hallucinations confusion Interim History: seen seated alone or walking the barrow with a pained expression on her face. 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 no complaints, no requests. per staff, POC 104, 169. slept well. calm, pleasant. oriented to self only. Mental Status Exam Mental Status Exam Narrative: calm, cooperative, diminutive. disheveled. general PMR. fair eye contact, speech nml rate, soft, decr prosody, decr amount. thoughts linear/relevant interchange; paucity of thought. affect constricted, hypo-intense, non-labile. no SI/SIBI/HI/AVH expressed. gross cognitive impairment. Diagnostics Vital Signs (24Hr): Vital Signs - 24 hr 06/23/23 18:00 06/24/23 08:19 Temperature 98.9 F 98.5 F Pulse Rate 69 66 Respiratory Rate 18 16 Blood Pressure 112/56 L 140/62 H Pulse Oximetry 92 93 Oxygen Delivery Method Room Air Room Air BMI result Body Mass Index 28.9 Labs 04/08/23 09:08 06/24/23 07:10 Labs: Laboratory Results - last 48 hr 06/22/23 06/22/23 06/23/23 16:00 20:17 06:45 Creatinine Estim Creat Clear Calc Estimated GFR POC Glucose 187 H 160 H 111 06/23/23 06/23/23 06/23/23 11:25 16:28 20:30 Creatinine Estim Creat Clear Calc Estimated GFR POC Glucose 116 H 122 H 172 H 06/24/23 06/24/23 06/24/23 07:10 07:23 11:27 Creatinine 0.71 Estim Creat Clear Calc 81.0 Estimated GFR > 60 POC Glucose 104 163 H Imaging Radiology Impressions: ITS Impressions Brain MRI 04/03/23 15:30 IMPRESSION: No acute infarct, mass lesion, intracranial hemorrhage, or evidence of hydrocephalus. Mild nonspecific T2/FLAIR hyperintensity in the cerebral white matter and danny presumably on the basis of chronic microangiopathy. Medications Medications Current Medications Acetaminophen (Acetaminophen 325 Mg Tablet) 650 mg PO Q6H PRN PRN Reason: Headache/Pain Mild Scale (1-3) Last Admin: 05/06/23 20:10 Dose: 650 mg Al Hydroxide/Mg Hydroxide (Magnesium Hydrox/Alum Hydrox 30 Ml Oral.Susp) 30 ml PO Q6H PRN PRN Reason: Heartburn/Nausea Atorvastatin Calcium (Atorvastatin Calcium 40 Mg Tablet) 40 mg PO DAILY [facility] Last Admin: 06/24/23 08:21 Dose: 40 mg Dextrose (Dextrose 50 % 25 Gm/50 Ml Syringe) 25 gm IVPUSH Q15M PRN; Protocol PRN Reason: per Hypoglycemia Standing Ord. Donepezil HCl (Donepezil Hcl 10 Mg Tablet) 10 mg PO BEDTIME [facility] Last Admin: 06/23/23 20:21 Dose: 10 mg Empagliflozin (Empagliflozin 25 Mg Tablet) 25 mg PO DAILY [facility] Last Admin: 06/24/23 08:21 Dose: 25 mg Famotidine (Famotidine 20 Mg Tablet) 20 mg PO DAILY [facility] Last Admin: 06/24/23 08:21 Dose: 20 mg Glucose (Glucose Gel 15 Gm Gel..Gram.) 15 gm PO Q15M PRN; Protocol PRN Reason: per Hypoglycemia Standing Ord. Haloperidol (Haloperidol 1 Mg Tablet) 4 mg PO BEDTIME [facility] Last Admin: 06/23/23 20:21 Dose: 4 mg Insulin Glargine (Insulin Glargine,Hum.Rec.Anlog 100 Unit/Ml 10 Ml Vial) 8 unit SUBCUT DAILY [facility] Last Admin: 06/24/23 08:21 Dose: 8 unit Insulin Human Lispro (Insulin Lispro 100 Unit/Ml 3 Ml Vial) 0 unit SUBCUT QIDACHS [facility]; Protocol Last Admin: 06/24/23 11:34 Dose: 2 unit Loperamide HCl (Loperamide Hcl 2 Mg Capsule) 2 mg PO Q6H PRN PRN Reason: Loose Stool Last Admin: 06/23/23 14:52 Dose: 2 mg Magnesium Hydroxide (Milk Of Magnesia 30 Ml Oral.Susp) 30 ml PO DAILY PRN PRN Reason: Constipation Memantine (Memantine Hcl 10 Mg Tablet) 10 mg PO BID [facility] Last Admin: 06/24/23 08:21 Dose: 10 mg Metformin HCl (Metformin Hcl 1,000 Mg Tablet) 1,000 mg PO BID [facility] Last Admin: 06/24/23 08:21 Dose: 1,000 mg Olanzapine (Olanzapine 2.5 Mg Tablet) 2.5 mg PO Q4H PRN PRN Reason: anxiety/agitation Last Admin: 04/29/23 17:17 Dose: 2.5 mg Omeprazole (Omeprazole 20 Mg Capsule.) 20 mg PO DAILY [facility] Last Admin: 06/24/23 08:21 Dose: 20 mg Prednisone (Prednisone 10 Mg Tablet) 10 mg PO DAILY [facility] Last Admin: 06/24/23 08:21 Dose: 10 mg Sertraline HCl (Sertraline Hcl 100 Mg Tablet) 100 mg PO DAILY [facility] Last Admin: 06/24/23 08:21 Dose: 100 mg Trazodone HCl (Trazodone Hcl 50 Mg Tablet) 50 mg PO BEDTIME MRX1 PRN PRN Reason: Insomnia Last Admin: 06/19/23 20:26 Dose: 50 mg Allergies Allergies Allergy/AdvReac Type Severity Reaction Status Date / Time No Known Allergies Allergy Verified 03/23/23 18:13 Assessment & Plan Assessment & Plan (1) Dementia: Status: Acute Code(s): F03.90 - Unspecified dementia, unspecified severity, without behavioral disturbance, psychotic disturbance, mood disturbance, and anxiety Assessment and Plan: 57 years old woman with somewhat rapidly progressing dementia or symptoms of dementia with CSF protein of 88 but otherwise no definite clue about her diagnosis. I discussed the case with neurology service at [facility] and they suggested that the workup has been appropriate and thorough and it was not clear if any further investigations were needed. Also, they did not have beds a vailable for transfer According to their experience, this level of CSF protein could be seen and degenerative disorders but could also be seen in some type of spine pathology, which we have not investigated. In any case, high CSF protein without elevation of cells and without any significant brain lesions on MRI, does not suggest malignancy or vasculitis type of pathology. At this time, after discussing the case with the neurologist in [place], my recommendation is to treat her for degenerative dementia appearing in young age. Some CSF tests are pending which may confirm this notion. PET scan can also help. On the other hand, further CSF analysis and investigations for vasculitis like brain biopsy are not warranted. As far as treatment of dementia is concerned, it is symptomatic. I would start with donepezil 5 mg daily and after a week would add memantine 5 mg twice a day. These are the 2 types of medicines available at this time. Finally, her placement could be an issue as she would not be able to live independently Plan 05/05/23 Pt with gross disorganization b sister give hx of more gradual deterioration neuro note reviewed chart reviewed start aricept some csf results pending consider pet if available ?05/07/2023: No changes to current treatment plan.? Treatment team working on complex disposition which may include instituted living in [place] 05/08 continue tx. 05/09 continue tx. 05/10:? neuro believes Dx more likely dementia at this point, consulted with [place] neuro who informed him protein of 88 may sometimes be seen in dementia or spinal disorders and that w/u thus far here had been thorough and adequate.? plan to treat as dementia for now.? neuro rec starting donepezil and 1 week later memantine.? donepezil started 5 days ago, memantine scheduled to be started in 3 days.? 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 per review of [employer], their recommended taper for this pt's duration of therapy and daily dose is to reduce by 5 mg/day every 1-2 weeks.? as her time on steroids has been relatively short, we would proceed with the more aggressive taper.? in any event, dosing to be reduced by 5 mg/day as of today. 05/11: all labs results in, positives are for elevated CSF protein/albumin and pattern of CSF protein c/w alzheimer's dementia. continue induction on cholinesterase inhibitor, pednisone taper, work on dispo planning. 05/12: no change in presentation. discharge planning aggressively underway. start memantine tomorrow. currently planning for discharge monday. 05/13: memantine started today. decrease zyprexa at HS from 5 mg to 2.5 mg in a ttempt to decrease overall sedation. plan to decrease prednisone by 5 mg/day on monday. 05/14: continue current mgmt. decrease prednisone by 5 mg/day as of tomorrow morning. dispo planning underway. 05/15: continue current mgmt. family meeting tomorrow with pt's daughter and HCP, bakari. 05/16: family mtg held. SW looking into rest homes, family to pursue involving extended family for a place for pt to stay. FSBS elevated, prednisone taper ongoing, SSI being used. 05/17: no change in mgmt. met with [facility] to discuss dispo options. rest home is not an option, STR does not appear to be likely to be an option but is being pursued today. awaiting word from daughter on option to DC to brother's home. will need group home care daily for DM mgmt until no longer requiring SSI, however. per report, her insurance does not cover VNA. 05/18: stable presentation. requesting new MoCA and ACLS as pt's cognition seems to have improved slightly since treatment for AD began. 05/19: stable presentation. daughter working on dispo options. ACLS unchanged from prior. T[facility]C [facility] today. continue prednisone taper monday. 05/20 Less agitated. No med changes today. 05/21: prednisone taper in process, consider transfer to [facility] 05/22/2023 Hospitalist consult regarding hyperglycemia consider stopping olanzapine and changing to antipsychotic if needed lowered tendency to increase blood sugars. Discharge planning AFTER DISCUSSION WITH MARGARITA PEREZ THE PATIENT WAS PLACED LONG-ACTING INSULIN GLARGINE 05/23: FSBS trending down. continue current mgmt. T/C change to typical anti- psychotic. case d/w Dr. Trotter. 05/24: stable. DCed zyprexa and started haldol 2 mg QHS. completed review with insurance company . continue to seek placement at [facility]. 05/25: increase HS haldol to 4 mg, otherwise continue current mgmt. stable presentation. 05/26: no change in presentation. continue current mgmt. 05/27: no change in presentation. continue current mgmt. 05/28: no change in presentation. continue current mgmt. 05/29: no change, continue. 05/30: no change, continue. 05/31: FSBS trending better, recently mostly below 200. otherwise no changes. continue current mgmt. 06/01: FSBS trending better, recently mostly below 200. otherwise no changes. continue current mgmt. daughter has not returned any of 's calls for the past week. 06/02: decrease glargine from 10 units daily to 8 units daily as pt's FSBS have started to come under 100. decrease prednisone this monday and the following monday (orders written). pending placement and getting off of insulin. 06/03 keep same treatment. 06/04 keep same treatment 06/05/23 Pt seen cont tx plan 06/06/2023 Consider increase Namenda transfer to [facility] for more supervision and structured care. Discharge planning would benefit from eventual locked assisted living if possible case reviewed extensively with social Work there has been difficulty coordinating with healthcare proxy Plan 1. Continue with Aricept 10 mg p.o. q.h.s., Namenda 10 mg p.o. b.i.d. to target dementia. 2. Increase all of up to 100 mg p.o. daily on June 14. 3. Waiting for placement. 4. Filing for guardianship. 06/24: continue current mgmt. steady decline in fxn. Reason for continued inpatient stay Substantial Risk for: inability to function Time Spent With Patient Time: Total time managing care of this patient today ____ minutes.
[2023-06-24 16:35] LABS: Glucose, Whole Blood 167 mg/dL (60-115)
[2023-06-24 20:20] VITALS: BP 112/55; PULSE 68; RESP 16; TEMP 36.5; O2SAT 97
[2023-06-24] MEDS: Donepezil HCl 10 MG TABLET PO (20:28)
[2023-06-24] MEDS: HaloperidoL 1 MG TABLET 4 MG PO (20:28)
[2023-06-24 20:51] LABS: Glucose, Whole Blood 212 mg/dL (60-115)
[2023-06-25 07:04] LABS: Glucose, Whole Blood 99 mg/dL (60-115)
[2023-06-25 07:04] LABS: Glucose, Whole Blood 109 mg/dL (60-115)
[2023-06-25 08:06] VITALS: BP 127/66; PULSE 70; RESP 16; TEMP 36.8; O2SAT 95
[2023-06-25] MEDS: Insulin Glargine,Hum.rec.anlog 100 UNIT/ML 10 ML VIAL 8 UNIT SUBCUT (08:07)
[2023-06-25] MEDS: Sertraline HCL 100 MG TABLET PO (08:08)
[2023-06-25] MEDS: metFORMIN HCl 1,000 MG TABLET 1000 MG PO ×2 (08:08→21:09)
[2023-06-25] MEDS: Famotidine 20 MG TABLET PO (08:08)
[2023-06-25] MEDS: predniSONE 10 MG TABLET PO (08:08)
[2023-06-25] MEDS: Empagliflozin 25 MG TABLET PO (08:08)
[2023-06-25] MEDS: Omeprazole 20 MG CAPSULE.DR PO (08:08)
[2023-06-25] MEDS: Atorvastatin Calcium 40 MG TABLET PO (08:08)
[2023-06-25] MEDS: Memantine HCl 10 MG TABLET PO ×2 (08:08→21:09)
--- NOTE | 2023-06-25 10:39 | P.PNPSI_ITS ---
Subjective Subjective Date of Service: 06/25/23 Reason For Visit: hallucinations confusion Interim History: no change in presentation. no requests or complaints. per staff, POC 109 today. refused bfast. no diarrhea. slept. Mental Status Exam Mental Status Exam Narrative: calm, cooperative, diminutive. disheveled. general PMR. fair eye contact, speech nml rate, soft, decr prosody, decr amount. thoughts linear/relevant; paucity of thought. affect constricted, hypo-intense, non-labile. no SI/SIBI/HI/AVH expressed. gross cognitive impairment. Diagnostics Vital Signs (24Hr): Vital Signs - 24 hr 06/24/23 20:20 06/25/23 08:06 Temperature 97.7 F 98.2 F Pulse Rate 68 70 Respiratory Rate 16 16 Blood Pressure 112/55 L 127/66 Pulse Oximetry 97 95 Oxygen Delivery Method Room Air Room Air BMI result Body Mass Index 28.9 Labs 04/08/23 09:08 06/24/23 07:10 Labs: Laboratory Results - last 48 hr 06/23/23 06/23/23 06/23/23 11:25 16:28 20:30 Creatinine Estim Creat Clear Calc Estimated GFR POC Glucose 116 H 122 H 172 H 06/24/23 06/24/23 06/24/23 07:10 07:23 11:27 Creatinine 0.71 Estim Creat Clear Calc 81.0 Estimated GFR > 60 POC Glucose 104 163 H 06/24/23 06/24/23 06/25/23 16:31 20:26 06:12 Creatinine Estim Creat Clear Calc Estimated GFR POC Glucose 167 H 212 H 99 06/25/23 06:57 Creatinine Estim Creat Clear Calc Estimated GFR POC Glucose 109 Imaging Radiology Impressions: ITS Impressions Brain MRI 04/03/23 15:30 IMPRESSION: No acute infarct, mass lesion, intracranial hemorrhage, or evidence of hydrocephalus. Mild nonspecific T2/FLAIR hyperintensity in the cerebral white matter and danny presumably on the basis of chronic microangiopathy. Medications Medications Current Medications Acetaminophen (Acetaminophen 325 Mg Tablet) 650 mg PO Q6H PRN PRN Reason: Headache/Pain Mild Scale (1-3) Last Admin: 05/06/23 20:10 Dose: 650 mg Al Hydroxide/Mg Hydroxide (Magnesium Hydrox/Alum Hydrox 30 Ml Oral.Susp) 30 ml PO Q6H PRN PRN Reason: Heartburn/Nausea Atorvastatin Calcium (Atorvastatin Calcium 40 Mg Tablet) 40 mg PO DAILY ON LICENSE OF [facility] Last Admin: 06/25/23 08:08 Dose: 40 mg Dextrose (Dextrose 50 % 25 Gm/50 Ml Syringe) 25 gm IVPUSH Q15M PRN; Protocol PRN Reason: per Hypoglycemia Standing Ord. Donepezil HCl (Donepezil Hcl 10 Mg Tablet) 10 mg PO BEDTIME ON LICENSE OF [facility] Last Admin: 06/24/23 20:28 Dose: 10 mg Empagliflozin (Empagliflozin 25 Mg Tablet) 25 mg PO DAILY ON LICENSE OF [facility] Last Admin: 06/25/23 08:08 Dose: 25 mg Famotidine (Famotidine 20 Mg Tablet) 20 mg PO DAILY ON LICENSE OF [facility] Last Admin: 06/25/23 08:08 Dose: 20 mg Glucose (Glucose Gel 15 Gm Gel..Gram.) 15 gm PO Q15M PRN; Protocol PRN Reason: per Hypoglycemia Standing Ord. Haloperidol (Haloperidol 1 Mg Tablet) 4 mg PO BEDTIME ON LICENSE OF [facility] Last Admin: 06/24/23 20:28 Dose: 4 mg Insulin Glargine (Insulin Glargine,Hum.Rec.Anlog 100 Unit/Ml 10 Ml Vial) 8 unit SUBCUT DAILY ON LICENSE OF [facility] Last Admin: 06/25/23 08:07 Dose: 8 unit Insulin Human Lispro (Insulin Lispro 100 Unit/Ml 3 Ml Vial) 0 unit SUBCUT QIDACHS ON LICENSE OF [facility]; Protocol Last Admin: 06/25/23 08:08 Dose: Not Given Loperamide HCl (Loperamide Hcl 2 Mg Capsule) 2 mg PO Q6H PRN PRN Reason: Loose Stool Last Admin: 06/23/23 14:52 Dose: 2 mg Magnesium Hydroxide (Milk Of Magnesia 30 Ml Oral.Susp) 30 ml PO DAILY PRN PRN Reason: Constipation Memantine (Memantine Hcl 10 Mg Tablet) 10 mg PO BID ON LICENSE OF [facility] Last Admin: 06/25/23 08:08 Dose: 10 mg Metformin HCl (Metformin Hcl 1,000 Mg Tablet) 1,000 mg PO BID ON LICENSE OF [facility] Last Admin: 06/25/23 08:08 Dose: 1,000 mg Olanzapine (Olanzapine 2.5 Mg Tablet) 2.5 mg PO Q4H PRN PRN Reason: anxiety/agitation Last Admin: 04/29/23 17:17 Dose: 2.5 mg Omeprazole (Omeprazole 20 Mg Capsule.Dr) 20 mg PO DAILY ON LICENSE OF [facility] Last Admin: 06/25/23 08:08 Dose: 20 mg Prednisone (Prednisone 10 Mg Tablet) 10 mg PO DAILY ON LICENSE OF [facility] Last Admin: 06/25/23 08:08 Dose: 10 mg Sertraline HCl (Sertraline Hcl 100 Mg Tablet) 100 mg PO DAILY ON LICENSE OF [facility] Last Admin: 06/25/23 08:08 Dose: 100 mg Trazodone HCl (Trazodone Hcl 50 Mg Tablet) 50 mg PO BEDTIME MRX1 PRN PRN Reason: Insomnia Last Admin: 06/19/23 20:26 Dose: 50 mg Allergies Allergies Allergy/AdvReac Type Severity Reaction Status Date / Time No Known Allergies Allergy Verified 03/23/23 18:13 Assessment & Plan Assessment & Plan (1) Dementia: Status: Acute Code(s): F03.90 - Unspecified dementia, unspecified severity, without behavioral d isturbance, psychotic disturbance, mood disturbance, and anxiety Assessment and Plan: 57 years old woman with somewhat rapidly progressing dementia or symptoms of dementia with CSF protein of 88 but otherwise no definite clue about her diagnosis. I discussed the case with neurology service at [facility] and they suggested that the workup has been appropriate and thorough and it was not clear if any further investigations were needed. Also, they did not have beds available for transfer According to their experience, this level of CSF protein could be seen and degenerative disorders but could also be seen in some type of spine pathology, which we have not investigated. In any case, high CSF protein without elevation of cells and without any significant brain lesions on MRI, does not suggest malignancy or vasculitis type of pathology. At this time, after discussing the case with the neurologist in [place], my recommendation is to treat her for degenerative dementia appearing in young age. Some CSF tests are pending which may confirm this notion. PET scan can also help. On the other hand, further CSF analysis and investigations for vasculitis like brain biopsy are not warranted. As far as treatment of dementia is concerned, it is symptomatic. I would start with donepezil 5 mg daily and after a week would add memantine 5 mg twice a day. These are the 2 types of medicines available at this time. Finally, her placement could be an issue as she would not be able to live independently Plan 05/05/23 Pt with gross disorganization b sister give hx of more gradual deterioration neuro note reviewed chart reviewed start aricept some csf results pending consider pet if available ?05/07/2023: No changes to current treatment plan.? Treatment team working on complex disposition which may include instituted living in [place] 05/08 continue tx. 05/09 continue tx. 05/10:? neuro believes Dx more likely dementia at this point, consulted with [place] neuro who informed him protein of 88 may sometimes be seen in dementia or spinal disorders and that w/u thus far here had been thorough and adequate.? plan to treat as dementia for now.? neuro rec starting donepezil and 1 week later memantine.? donepezil started 5 days ago, memantine scheduled to be started in 3 days.? 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 per review of [facility], their recommended taper for this pt's duration of therapy and daily dose is to reduce by 5 mg/day every 1-2 weeks.? as her time on steroids has been relatively short, we would proceed with the more aggressive taper.? in any event, dosing to be reduced by 5 mg/day as of today. 05/11: all labs results in, positives are for elevated CSF protein/albumin and pattern of CSF protein c/w alzheimer's dementia. continue induction on cholinesterase inhibitor, pednisone taper, work on dispo planning. 05/12: no change in presentation. discharge planning aggressively underway. start memantine tomorrow. currently planning for discharge monday. 05/13: memantine started today. decrease zyprexa at HS from 5 mg to 2.5 mg in attempt to decrease overall sedation. plan to decrease prednisone by 5 mg/day on monday. 05/14: continue current mgmt. decrease prednisone by 5 mg/day as of tomorrow morning. dispo planning underway. 05/15: continue current mgmt. family meeting tomorrow with pt's daughter and HCP, bakari. 05/16: family mtg held. SW looking into rest homes, family to pursue involving extended family for a place for pt to stay. FSBS elevated, prednisone taper ongoing, SSI being used. 05/17: no change in mgmt. met with [facility] to discuss dispo options. rest home is not an option, STR does not appear to be likely to be an option but is being pursued today. awaiting word from daughter on option to DC to brother's home. will need halfway care daily for DM mgmt until no longer requiring SSI, however. per report, her insurance does not cover VNA. 05/18: stable presentation. requesting new MoCA and ACLS as pt's cognition seems to have improved slightly since treatment for AD began. 05/19: stable presentation. daughter working on dispo options. ACLS unchanged from prior. T/C transfer to [facility] today. continue prednisone taper monday. 05/20 Less agitated. No med changes today. 05/21: prednisone taper in process, consider transfer to [facility] 05/22/2023 Hospitalist consult regarding hyperglycemia consider stopping olanzapine and changing to antipsychotic if needed lowered tendency to increase blood sugars. Discharge planning AFTER DISCUSSION WITH MARGARITA PEREZ THE PATIENT WAS PLACED LONG-ACTING INSULIN GLARGINE 05/23: FSBS trending down. continue current mgmt. T/C change to typical anti- psychotic. case d/w Dr. Trotter. 05/24: stable. DCed zyprexa and started haldol 2 mg QHS. completed review with insurance company . continue to [facility]. 05/25: increase HS haldol to 4 mg, otherwise continue current mgmt. stable presentation. 05/26: no change in presentation. continue current mgmt. 05/27: no change in presentation. continue current mgmt. 05/28: no change in presentation. continue current mgmt. 05/29: no change, continue. 05/30: no change, continue. 05/31: FSBS trending better, recently mostly below 200. otherwise no changes. continue current mgmt. 06/01: FSBS trending better, recently mostly below 200. otherwise no changes. continue current mgmt. daughter has not returned any of 's calls for the past week. 06/02: decrease glargine from 10 units daily to 8 units daily as pt's FSBS have started to come under 100. decrease prednisone this monday and the following monday (orders written). pending placement and getting off of insulin. 06/03 keep same treatment. 06/04 keep same treatment 06/05/23 Pt seen cont tx plan 06/06/2023 Consider increase Namenda transfer to [facility] for more supervision and structured care. Discharge planning would benefit from eventual locked assisted living if possible case reviewed extensively with social Work there has been difficulty coordinating with healthcare proxy Plan 1. Continue with Aricept 10 mg p.o. q.h.s., Namenda 10 mg p.o. b.i.d. to target dementia. 2. Increase all of up to 100 mg p.o. daily on June 14. 3. Waiting for placement. 4. Filing for guardianship. 06/24: continue current mgmt. steady decline in fxn. 06/25: stable presentation. continue current mgmt. Reason for continued inpatient stay Substantial Risk for: inability to function Time Spent With Patient Time: Total time managing care of this patient today ____ minutes.
[2023-06-25 11:34] LABS: Glucose, Whole Blood 136 mg/dL (60-115)
[2023-06-25 16:54] LABS: Glucose, Whole Blood 143 mg/dL (60-115)
[2023-06-25 18:00] VITALS: BP 120/66; PULSE 62; RESP 18; TEMP 36.9; O2SAT 95
[2023-06-25 20:10] LABS: Glucose, Whole Blood 188 mg/dL (60-115)
[2023-06-25] MEDS: Insulin Lispro 100 UNIT/ML 3 ML VIAL SUBCUT (21:07)
[2023-06-25] MEDS: Donepezil HCl 10 MG TABLET PO (21:09)
[2023-06-25] MEDS: HaloperidoL 1 MG TABLET 4 MG PO (21:09)
[2023-06-26 06:59] LABS: Glucose, Whole Blood 100 mg/dL (60-115)
[2023-06-26 08:05] VITALS: BP 136/66; PULSE 63; RESP 18; TEMP 36.9; O2SAT 96
[2023-06-26] MEDS: Insulin Glargine,Hum.rec.anlog 100 UNIT/ML 10 ML VIAL 8 UNIT SUBCUT (08:14)
[2023-06-26] MEDS: Memantine HCl 10 MG TABLET PO ×2 (08:15→20:23)
[2023-06-26] MEDS: predniSONE 10 MG TABLET PO (08:15)
[2023-06-26] MEDS: Omeprazole 20 MG CAPSULE.DR PO (08:15)
[2023-06-26] MEDS: metFORMIN HCl 1,000 MG TABLET 1000 MG PO ×2 (08:15→20:23)
[2023-06-26] MEDS: Sertraline HCL 100 MG TABLET PO (08:16)
[2023-06-26] MEDS: Famotidine 20 MG TABLET PO (08:16)
[2023-06-26] MEDS: Empagliflozin 25 MG TABLET PO (08:16)
[2023-06-26] MEDS: Atorvastatin Calcium 40 MG TABLET PO (08:16)
--- NOTE | 2023-06-26 11:01 | HO.PSYCHPN ---
Subjective Subjective Date of Service: 06/26/23 Reason For Visit: hallucinations confusion Subjective Notes: Conditional Voluntary Interim History: The nursing staff reported the patient did not have breakfast yesterday. She needed help for her ADL less and she slept well last night. She has court hearing for this Monday for guardianship. On interview the patient is pleasantly confused, denies new symptoms, waiting for placement. Mental Status Exam Mental Status Exam Patient Appearance: Well Grooomed and Appropriate Patient Orientation: Person and Situation Level of Consciousness: Awake and Appropriate Patient Behavior: Guarded and Passive Mood Description: Calm and Withdrawn Affect Description: Constricted Patient Cognition Impaired: Yes Ability to Follow Directions: Good Speech Pattern: Clear Hallucinations: None Delusions: Not Present Thought Process: Distracted and Slowed Thinking Thought Content: positive for [place] and positive for Perseveration Judgement: Fair Diagnostics Vital Signs (24Hr): Vital Signs - 24 hr 06/25/23 18:00 06/26/23 08:05 Temperature 98.4 F 98.5 F Pulse Rate 62 63 Respiratory Rate 18 18 Blood Pressure 120/66 136/66 Pulse Oximetry 95 96 Oxygen Delivery Method Room Air Room Air BMI result Body Mass Index 28.9 Labs 04/08/23 09:08 06/24/23 07:10 Labs: Laboratory Results - last 48 hr 06/24/23 06/24/23 06/24/23 11:27 16:31 20:26 POC Glucose 163 H 167 H 212 H 06/25/23 06/25/23 06/25/23 06:12 06:57 11:29 POC Glucose 99 109 136 H 06/25/23 06/25/23 06/26/23 16:32 20:04 06:50 POC Glucose 143 H 188 H 100 Imaging Radiology Impressions: ITS Impressions Brain MRI 04/03/23 15:30 IMPRESSION: No acute infarct, mass lesion, intracranial hemorrhage, or evidence of hydrocephalus. Mild nonspecific T2/FLAIR hyperintensity in the cerebral white matter and danny presumably on the basis of chronic microangiopathy. Medications Medications Current Medications Acetaminophen (Acetaminophen 325 Mg Tablet) 650 mg PO Q6H PRN PRN Reason: Headache/Pain Mild Scale (1-3) Last Admin: 05/06/23 20:10 Dose: 650 mg Al Hydroxide/Mg Hydroxide (Magnesium Hydrox/Alum Hydrox 30 Ml Oral.Susp) 30 ml PO Q6H PRN PRN Reason: Heartburn/Nausea Atorvastatin Calcium (Atorvastatin Calcium 40 Mg Tablet) 40 mg PO DAILY [facility] Last Admin: 06/26/23 08:16 Dose: 40 mg Dextrose (Dextrose 50 % 25 Gm/50 Ml Syringe) 25 gm IVPUSH Q15M PRN; Protocol PRN Reason: per Hypoglycemia Standing Ord. Donepezil HCl (Donepezil Hcl 10 Mg Tablet) 10 mg PO BEDTIME [facility] Last Admin: 06/25/23 21:09 Dose: 10 mg Empagliflozin (Empagliflozin 25 Mg Tablet) 25 mg PO DAILY [facility] Last Admin: 06/26/23 08:16 Dose: 25 mg Famotidine (Famotidine 20 Mg Tablet) 20 mg PO DAILY [facility] Last Admin: 06/26/23 08:16 Dose: 20 mg Glucose (Glucose Gel 15 Gm Gel..Gram.) 15 gm PO Q15M PRN; Protocol PRN Reason: per Hypoglycemia Standing Ord. Haloperidol (Haloperidol 1 Mg Tablet) 4 mg PO BEDTIME [facility] Last Admin: 06/25/23 21:09 Dose: 4 mg Insulin Glargine (Insulin Glargine,Hum.Rec.Anlog 100 Unit/Ml 10 Ml Vial) 8 unit SUBCUT DAILY [facility] Last Admin: 06/26/23 08:14 Dose: 8 unit Insulin Human Lispro (Insulin Lispro 100 Unit/Ml 3 Ml Vial) 0 unit SUBCUT QIDACHS [facility]; Protocol Last Admin: 06/26/23 08:14 Dose: Not Given Loperamide HCl (Loperamide Hcl 2 Mg Capsule) 2 mg PO Q6H PRN PRN Reason: Loose Stool Last Admin: 06/23/23 14:52 Dose: 2 mg Magnesium Hydroxide (Milk Of Magnesia 30 Ml Oral.Susp) 30 ml PO DAILY PRN PRN Reason: Constipation Memantine (Memantine Hcl 10 Mg Tablet) 10 mg PO BID [facility] Last Admin: 06/26/23 08:15 Dose: 10 mg Metformin HCl (Metformin Hcl 1,000 Mg Tablet) 1,000 mg PO BID [facility] Last Admin: 06/26/23 08:15 Dose: 1,000 mg Olanzapine (Olanzapine 2.5 Mg Tablet) 2.5 mg PO Q4H PRN PRN Reason: anxiety/agitation Last Admin: 04/29/23 17:17 Dose: 2.5 mg Omeprazole (Omeprazole 20 Mg Capsule.Dr) 20 mg PO DAILY [facility] Last Admin: 06/26/23 08:15 Dose: 20 mg Prednisone (Prednisone 10 Mg Tablet) 10 mg PO DAILY [facility] Last Admin: 06/26/23 08:15 Dose: 10 mg Sertraline HCl (Sertraline Hcl 100 Mg Tablet) 100 mg PO DAILY [facility] Last Admin: 06/26/23 08:16 Dose: 100 mg Trazodone HCl (Trazodone Hcl 50 Mg Tablet) 50 mg PO BEDTIME MRX1 PRN PRN Reason: Insomnia Last Admin: 06/19/23 20:26 Dose: 50 mg Allergies Allergies Allergy/AdvReac Type Severity Reaction Status Date / Time No Known Allergies Allergy Verified 03/23/23 18:13 Assessment & Plan Assessment & Plan (1) Dementia: Status: Acute Code(s): F03.90 - Unspecified dementia, unspecified severity, without behavioral disturbance, psychotic disturbance, mood disturbance, and anxiety Assessment and Plan: 57 years old woman with somewhat rapidly progressing dementia or symptoms of dementia with CSF protein of 88 but otherwise no definite clue about her diagnosis. I discussed the case with neurology service at [facility] and they suggested that the workup has been appropriate and thorough and it was not clear if any further investigations were needed. Also, they did not have beds available for transfer According to their experience, this level of CSF protein could be seen and degenerative disorders but could also be seen in some type of spine pathology, which we have not investigated. In any case, high CSF protein without elevation of cells and without any significant brain lesions on MRI, does not suggest malignancy or vasculitis type of pathology. At this time, after discussing the case with the neurologist in [place], my recommendation is to treat her for degenerative dementia appearing in young age. Some CSF tests are pending which may confirm this notion. PET scan can also help. On the other hand, further CSF analysis and investigations for vasculitis like brain biopsy are not warranted. As far as treatment of dementia is concerned, it is symptomatic. I would start with donepezil 5 mg daily and after a week would add memantine 5 mg twice a day. These are the 2 types of medicines available at this time. Finally, her placement could be an issue as she would not be able to live independently Plan 05/05/23 Pt with gross disorganization b sister give hx of more gradual deterioration neuro note reviewed chart reviewed start aricept some csf results pending consider pet if available ?05/07/2023: No changes to current treatment plan.? Treatment team working on complex disposition which may include instituted living in [place] 05/08 continue tx. 05/09 continue tx. 05/10:? neuro believes Dx more likely dementia at this point, consulted with [place] neuro who informed him protein of 88 may sometimes be seen in dementia or spinal disorders and that w/u thus far here had been thorough and adequate.? plan to treat as dementia for now.? neuro rec starting donepezil and 1 week later memantine.? donepezil started 5 days ago, memantine scheduled to be started in 3 days.? 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 per review of [employer] [facility], their recommended taper for this pt's duration of therapy and daily dose is to reduce by 5 mg/day every 1-2 weeks.? as her time on steroids has been relatively short, we would proceed with the more aggressive taper.? in any event, dosing to be reduced by 5 mg/day as of today. 05/11: all labs results in, positives are for elevated CSF protein/albumin and pattern of CSF protein c/w alzheimer's dementia. continue induction on cholinesterase inhibitor, pednisone taper, work on dispo planning. 05/12: no change in presentation. discharge planning aggressively underway. start memantine tomorrow. currently planning for discharge monday. 05/13: memantine started today. decrease zyprexa at HS from 5 mg to 2.5 mg in attempt to decrease overall sedation. plan to decrease prednisone by 5 mg/day on monday. 05/14: continue current mgmt. decrease prednisone by 5 mg/day as of tomorrow morning. dispo planning underway. 05/15: continue current mgmt. family meeting tomorrow with pt's daughter and HCP, bakari. 05/16: family mtg held. SW looking into rest homes, family to pursue involving extended family for a place for pt to stay. FSBS elevated, prednisone taper ongoing, SSI being used. 05/17: no change in mgmt. met with [facility] to discuss dispo options. rest home is not an option, STR does not appear to be likely to be an option but is being pursued today. awaiting word from daughter on option to DC to brother's home. will need snf care daily for DM mgmt until no longer requiring SSI, however. per report, her insurance does not cover VNA. 05/18: stable presentation. requesting new MoCA and ACLS as pt's cognition seems to have improved slightly since treatment for AD began. 05/19: stable presentation. daughter working on dispo options. ACLS unchanged from prior. T/C [facility] to [facility] today. continue prednisone taper monday. 05/20 Less agitated. No med changes today. 05/21: prednisone taper in process, consider transfer to [facility] 05/22/2023 Hospitalist consult regarding hyperglycemia consider stopping olanzapine and changing to antipsychotic if needed lowered tendency to increase blood sugars. Discharge planning AFTER DISCUSSION WITH MARGARITA PEREZ THE PATIENT WAS PLACED LONG-ACTING INSULIN GLARGINE 05/23: FSBS trending down. continue current mgmt. T/C change to typical anti-psychotic. case d/w Dr. Trotter. 05/24: stable. DCed zyprexa and started haldol 2 mg QHS. completed review with insurance company . continue to [facility]. 05/25: increase HS haldol to 4 mg, otherwise continue current mgmt. stable presentation. 05/26: no change in presentation. continue current mgmt. 05/27: no change in presentation. continue current mgmt. 05/28: no change in presentation. continue current mgmt. 05/29: no change, continue. 05/30: no change, continue. 05/31: FSBS trending better, recently mostly below 200. otherwise no changes. continue current mgmt. 06/01: FSBS trending better, recently mostly below 200. otherwise no changes. continue current mgmt. daughter has not returned any of 's calls for the past week. 06/02: decrease glargine from 10 units daily to 8 units daily as pt's FSBS have started to come under 100. decrease prednisone this monday and the following monday (orders written). pending placement and getting off of insulin. 06/03 keep same treatment. 06/04 keep same treatment 06/05/23 Pt seen cont tx plan 06/06/2023 Consider increase Namenda transfer to [facility] for more supervision and structured care. Discharge planning would benefit from eventual locked assisted living if possible case reviewed extensively with social Work there has been difficulty coordinating with healthcare proxy Plan 1. Continue with Aricept 10 mg p.o. q.h.s., Namenda 10 mg p.o. b.i.d. to target dementia. 2. Increase all of up to 100 mg p.o. daily on June 14. 3. Waiting for placement. 4. Filing for guardianship. Court hearing for next Monday. Reason for continued inpatient stay Substantial Risk for: inability to function, rapid decompensation and med/psych decompensation Time Spent With Patient Time: Total time managing care of this patient today _20___ minutes.
[2023-06-26 11:50] LABS: Glucose, Whole Blood 158 mg/dL (60-115)
[2023-06-26] MEDS: Insulin Lispro 100 UNIT/ML 3 ML VIAL SUBCUT ×3 (11:52→20:22)
[2023-06-26 16:39] LABS: Glucose, Whole Blood 164 mg/dL (60-115)
[2023-06-26 18:00] VITALS: BP 115/59; PULSE 70; RESP 18; TEMP 36.8; O2SAT 94
[2023-06-26] MEDS: HaloperidoL 1 MG TABLET 4 MG PO (20:23)
[2023-06-26] MEDS: Donepezil HCl 10 MG TABLET PO (20:23)
[2023-06-27 00:21] LABS: Glucose, Whole Blood 191 mg/dL (60-115)
[2023-06-27 06:47] LABS: Glucose, Whole Blood 102 mg/dL (60-115)
[2023-06-27 08:00] VITALS: BP 139/68; PULSE 72; RESP 18; TEMP 36.4; O2SAT 95
[2023-06-27] MEDS: Memantine HCl 10 MG TABLET PO ×2 (08:26→20:39)
[2023-06-27] MEDS: Omeprazole 20 MG CAPSULE.DR PO (08:26)
[2023-06-27] MEDS: metFORMIN HCl 1,000 MG TABLET 1000 MG PO ×2 (08:26→20:39)
[2023-06-27] MEDS: Atorvastatin Calcium 40 MG TABLET PO (08:26)
[2023-06-27] MEDS: Insulin Glargine,Hum.rec.anlog 100 UNIT/ML 10 ML VIAL 8 UNIT SUBCUT (08:26)
[2023-06-27] MEDS: predniSONE 10 MG TABLET PO (08:26)
[2023-06-27] MEDS: Empagliflozin 25 MG TABLET PO (08:27)
[2023-06-27] MEDS: Sertraline HCL 100 MG TABLET PO (08:27)
[2023-06-27] MEDS: Famotidine 20 MG TABLET PO (08:27)
[2023-06-27 11:32] LABS: Glucose, Whole Blood 147 mg/dL (60-115)
--- NOTE | 2023-06-27 13:17 | P.PNPSI_ITS ---
Subjective Subjective Date of Service: 06/27/23 Reason For Visit: hallucinations confusion Subjective Notes: Conditional Voluntary Interim History: The nursing staff reported the patient ate 50% of her meals, she had been pleasantly confused, easily redirectable. On interview the patient denies new symptoms, waiting for placement. Mental Status Exam Mental Status Exam Patient Appearance: Well Grooomed and Appropriate Patient Orientation: Person and Situation Level of Consciousness: Awake Patient Behavior: Guarded and Passive Mood Description: Calm Affect Description: Blunted Patient Cognition Impaired: Yes Ability to Follow Directions: Good Speech Pattern: Clear Hallucinations: None Delusions: Not Present Thought Process: Illogical and Distracted Thought Content: positive for [place] and positive for Poverty of Content Judgement: Poor Diagnostics Vital Signs (24Hr): Vital Signs - 24 hr 06/26/23 18:00 06/27/23 08:00 Temperature 98.3 F 97.5 F Pulse Rate 70 72 Respiratory Rate 18 18 Blood Pressure 115/59 L 139/68 Pulse Oximetry 94 95 Oxygen Delivery Method Room Air Room Air BMI result Body Mass Index 28.9 Labs 04/08/23 09:08 06/24/23 07:10 Labs: Laboratory Results - last 48 hr 06/25/23 06/25/23 06/26/23 16:32 20:04 06:50 POC Glucose 143 H 188 H 100 06/26/23 06/26/23 06/26/23 11:45 16:34 19:49 POC Glucose 158 H 164 H 191 H 06/27/23 06/27/23 06:33 11:27 POC Glucose 102 147 H Imaging Radiology Impressions: ITS Impressions Brain MRI 04/03/23 15:30 IMPRESSION: No acute infarct, mass lesion, intracranial hemorrhage, or evidence of hydrocephalus. Mild nonspecific T2/FLAIR hyperintensity in the cerebral white matter and danny presumably on the basis of chronic microangiopathy. Medications Medications Current Medications Acetaminophen (Acetaminophen 325 Mg Tablet) 650 mg PO Q6H PRN PRN Reason: Headache/Pain Mild Scale (1-3) Last Admin: 05/06/23 20:10 Dose: 650 mg Al Hydroxide/Mg Hydroxide (Magnesium Hydrox/Alum Hydrox 30 Ml Oral.Susp) 30 ml PO Q6H PRN PRN Reason: Heartburn/Nausea Atorvastatin Calcium (Atorvastatin Calcium 40 Mg Tablet) 40 mg PO DAILY BEN Last Admin: 06/27/23 08:26 Dose: 40 mg Dextrose (Dextrose 50 % 25 Gm/50 Ml Syringe) 25 gm IVPUSH Q15M PRN; Protocol PRN Reason: per Hypoglycemia Standing Ord. Donepezil HCl (Donepezil Hcl 10 Mg Tablet) 10 mg PO BEDTIME [facility] Last Admin: 06/26/23 20:23 Dose: 10 mg Empagliflozin (Empagliflozin 25 Mg Tablet) 25 mg PO DAILY [facility] Last Admin: 06/27/23 08:27 Dose: 25 mg Famotidine (Famotidine 20 Mg Tablet) 20 mg PO DAILY [facility] Last Admin: 06/27/23 08:27 Dose: 20 mg Glucose (Glucose Gel 15 Gm Gel..Gram.) 15 gm PO Q15M PRN; Protocol PRN Reason: per Hypoglycemia Standing Ord. Haloperidol (Haloperidol 1 Mg Tablet) 4 mg PO BEDTIME [facility] Last Admin: 06/26/23 20: Dose: 4 mg Insulin Glargine (Insulin Glargine,Hum.Rec.Anlog 100 Unit/Ml 10 Ml Vial) 8 unit SUBCUT DAILY [facility] Last Admin: 06/27/23 08:26 Dose: 8 unit Insulin Human Lispro (Insulin Lispro 100 Unit/Ml 3 Ml Vial) 0 unit SUBCUT QIDACHS [facility]; Protocol Last Admin: 06/27/23 11:33 Dose: Not Given Loperamide HCl (Loperamide Hcl 2 Mg Capsule) 2 mg PO Q6H PRN PRN Reason: Loose Stool Last Admin: 06/23/23 14:52 Dose: 2 mg Magnesium Hydroxide (Milk Of Magnesia 30 Ml Oral.Susp) 30 ml PO DAILY PRN PRN Reason: Constipation Memantine (Memantine Hcl 10 Mg Tablet) 10 mg PO BID [facility] Last Admin: 06/27/23 08:26 Dose: 10 mg Metformin HCl (Metformin Hcl 1,000 Mg Tablet) 1,000 mg PO BID [facility] Last Admin: 06/27/23 08:26 Dose: 1,000 mg Olanzapine (Olanzapine 2.5 Mg Tablet) 2.5 mg PO Q4H PRN PRN Reason: anxiety/agitation Last Admin: 04/29/23 17:17 Dose: 2.5 mg Omeprazole (Omeprazole 20 Mg Capsule.Dr) 20 mg PO DAILY [facility] Last Admin: 06/27/23 08:26 Dose: 20 mg Prednisone (Prednisone 10 Mg Tablet) 10 mg PO DAILY [facility] Last Admin: 06/27/23 08:26 Dose: 10 mg Sertraline HCl (Sertraline Hcl 100 Mg Tablet) 100 mg PO DAILY BEN Last Admin: 06/27/23 08:27 Dose: 100 mg Trazodone HCl (Trazodone Hcl 50 Mg Tablet) 50 mg PO BEDTIME MRX1 PRN PRN Reason: Insomnia Last Admin: 06/19/23 20:26 Dose: 50 mg Allergies Allergies Allergy/AdvReac Type Severity Reaction Status Date / Time No Known Allergies Allergy Verified 03/23/23 18:13 Assessment & Plan Assessment & Plan (1) Dementia: Status: Acute Code(s): F03.90 - Unspecified dementia, unspecified severity, without behavioral disturbance, psychotic disturbance, mood disturbance, and anxiety Assessment and Plan: 57 years old woman with somewhat rapidly progressing dementia or symptoms of dementia with CSF protein of 88 but otherwise no definite clue about her diagnosis. I discussed the case with neurology service at [facility] and they suggested that the workup has been appropriate and thorough and it was not clear if any further investigations were needed. Also, they did not have beds available for transfer According to their experience, this level of CSF protein could be seen and degenerative disorders but could also be seen in some type of spine pathology, which we have not investigated. In any case, high CSF protein without elevation of cells and without any significant brain lesions on MRI, does not suggest malignancy or vasculitis type of pathology. At this time, after discussing the case with the neurologist in [place], my recommendation is to treat her for degenerative dementia appearing in young age. Some CSF tests are pending which may confirm this notion. PET scan can also help. On the other hand, further CSF analysis and investigations for vasculitis like brain biopsy are not warranted. As far as treatment of dementia is concerned, it is symptomatic. I would start with donepezil 5 mg daily and after a week would add memantine 5 mg twice a day. These are the 2 types of medicines available at this time. Finally, her placement could be an issue as she would not be able to live independently Plan 05/05/23 Pt with gross disorganization b sister give hx of more gradual deterioration neuro note reviewed chart reviewed start aricept some csf results pending consider pet if available ?05/07/2023: No changes to current treatment plan.? Treatment team working on complex disposition which may include instituted living in [place] 05/08 continue tx. 05/09 continue tx. 05/10:? neuro believes Dx more likely dementia at this point, consulted with [place] neuro who informed him protein of 88 may sometimes be seen in dementia or spinal disorders and that w/u thus far here had been thorough and adequate.? plan to treat as dementia for now.? neuro rec starting donepezil and 1 week later memantine.? donepezil started 5 days ago, memantine scheduled to be started in 3 days.? 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 per review of [employer], their recommended taper for this pt's duration of therapy and daily dose is to reduce by 5 mg/day every 1-2 weeks.? as her time on steroids has been relatively short, we would proceed with the more aggressive taper.? in any event, dosing to be reduced by 5 mg/day as of today. 05/11: all labs results in, positives are for elevated CSF protein/albumin and pattern of CSF protein c/w alzheimer's dementia. continue induction on cholinesterase inhibitor, pednisone taper, work on dispo planning. 05/12: no change in presentation. discharge planning aggressively underway. start memantine tomorrow. currently planning for discharge monday. 05/13: memantine started today. decrease zyprexa at HS from 5 mg to 2.5 mg in attempt to decrease overall sedation. plan to decrease prednisone by 5 mg/day on monday. 05/14: continue current mgmt. decrease prednisone by 5 mg/day as of tomorrow morning. dispo planning underway. 05/15: continue current mgmt. family meeting tomorrow with pt's daughter and HCP, bakari. 05/16: family mtg held. SW looking into rest homes, family to pursue involving extended family for a place for pt to stay. FSBS elevated, prednisone taper ongoing, SSI being used. 05/17: no change in mgmt. met with [facility] to discuss dispo options. rest home is not an option, STR does not appear to be likely to be an option but is being pursued today. awaiting word from daughter on option to DC to brother's home. will need custodial care daily for DM mgmt until no longer requiring SSI, however. per report, her insurance does not cover VNA. 05/18: stable presentation. requesting new MoCA and ACLS as pt's cognition seems to have improved slightly since treatment for AD began. 05/19: stable presentation. daughter working on dispo options. ACLS unchanged from prior. T/C transfer to [facility] today. continue prednisone taper monday. 05/20 Less agitated. No med changes today. 05/21: prednisone taper in process, [facility]23 Hospitalist consult regarding hyperglycemia consider stopping olanzapine and changing to antipsychotic if needed lowered tendency to increase blood sugars. Discharge planning AFTER DISCUSSION WITH MARGARITA EPREZ THE PATIENT WAS PLACED LONG-ACTING INSULIN GLARGINE 05/23: FSBS trending down. continue current mgmt. T/C change to typical anti- psychotic. case d/w Dr. Trotter. 05/24: stable. DCed zyprexa and started haldol 2 mg QHS. completed review with insurance company . continue to [facility]. 05/25: increase HS haldol to 4 mg, otherwise continue current mgmt. stable presentation. 05/26: no change in presentation. continue current mgmt. 05/27: no change in presentation. continue current mgmt. 05/28: no change in presentation. continue current mgmt. 05/29: no change, continue. 05/30: no change, continue. 05/31: FSBS trending better, recently mostly below 200. otherwise no changes. continue current mgmt. 06/01: FSBS trending better, recently mostly below 200. otherwise no changes. continue current mgmt. daughter has not returned any of 's calls for the past week. 06/02: decrease glargine from 10 units daily to 8 units daily as pt's FSBS have started to come under 100. decrease prednisone this monday and the following monday (orders written). pending placement and getting off of insulin. 06/03 keep same treatment. 06/04 keep same treatment 06/05/23 Pt seen cont tx plan 06/06/2023 Consider increase Namenda transfer to [facility] for more supervision and structured care. Discharge planning would benefit from eventual locked assisted living if possible case reviewed extensively with social Work there has been difficulty coordinating with healthcare proxy Plan 1. Continue with Aricept 10 mg p.o. q.h.s., Namenda 10 mg p.o. b.i.d. to target dementia. 2. Increase all of up to 100 mg p.o. daily on June 14. 3. Waiting for placement. 4. Filing for guardianship. Court hearing for next Monday. Reason for continued inpatient stay Substantial Risk for: inability to function, rapid decompensation and med/psych decompensation Time Spent With Patient Time: Total time managing care of this patient today __20__ minutes.
[2023-06-27 16:23] LABS: Glucose, Whole Blood 153 mg/dL (60-115)
[2023-06-27 18:00] VITALS: BP 139/65; PULSE 74; TEMP 36.4; O2SAT 92
[2023-06-27 20:34] LABS: Glucose, Whole Blood 177 mg/dL (60-115)
[2023-06-27] MEDS: HaloperidoL 1 MG TABLET 4 MG PO (20:38)
[2023-06-27] MEDS: Donepezil HCl 10 MG TABLET PO (20:38)
[2023-06-27] MEDS: Insulin Lispro 100 UNIT/ML 3 ML VIAL SUBCUT (20:42)
[2023-06-28 06:28] LABS: Glucose, Whole Blood 87 mg/dL (60-115)
[2023-06-28 09:04] VITALS: BP 110/59; PULSE 68; RESP 16; TEMP 36.2; O2SAT 95
[2023-06-28] MEDS: metFORMIN HCl 1,000 MG TABLET 1000 MG PO ×2 (09:06→20:56)
[2023-06-28] MEDS: Insulin Glargine,Hum.rec.anlog 100 UNIT/ML 10 ML VIAL 8 UNIT SUBCUT (09:06)
[2023-06-28] MEDS: Atorvastatin Calcium 40 MG TABLET PO (09:06)
[2023-06-28] MEDS: Empagliflozin 25 MG TABLET PO (09:06)
[2023-06-28] MEDS: Omeprazole 20 MG CAPSULE.DR PO (09:06)
[2023-06-28] MEDS: Sertraline HCL 100 MG TABLET PO (09:06)
[2023-06-28] MEDS: Famotidine 20 MG TABLET PO (09:06)
[2023-06-28] MEDS: predniSONE 10 MG TABLET PO (09:06)
[2023-06-28] MEDS: Memantine HCl 10 MG TABLET PO ×2 (09:50→20:56)
[2023-06-28 11:20] LABS: Glucose, Whole Blood 121 mg/dL (60-115)
--- NOTE | 2023-06-28 13:21 | HO.PSYCHPN ---
Subjective Subjective Date of Service: 06/28/23 Reason For Visit: hallucinations confusion Subjective Notes: Conditional Voluntary Interim History: The nursing staff reported no changes in her mental status, she slept 6 hours last night. The occupational therapist reported that she participates but she needs to be encouraged adult. The staff has noticed that she looks sedated in the morning. On interview the patient denies new symptoms denies hallucinations aware taper her Haldol up to 2 mg p.o. q.h.s. today. Mental Status Exam Mental Status Exam Patient Appearance: Well Grooomed and Appropriate Patient Orientation: Person and Situation Level of Consciousness: Awake Patient Behavior: Guarded and Cooperative Mood Description: Withdrawn Affect Description: Constricted Patient Cognition Impaired: Yes Ability to Follow Directions: Good Speech Pattern: Clear Hallucinations: None Delusions: Not Present Thought Process: Slowed Thinking Thought Content: positive for [place], positive for Poverty of Content and positive for Thought Blocking Judgement: Poor Diagnostics Vital Signs (24Hr): Vital Signs - 24 hr 06/27/23 18:00 06/28/23 09:04 Temperature 97.6 F 97.2 F Pulse Rate 74 68 Respiratory Rate 16 Blood Pressure 139/65 110/59 L Pulse Oximetry 92 95 Oxygen Delivery Method Room Air Room Air BMI result Body Mass Index 28.9 Labs 04/08/23 09:08 06/24/23 07:10 Labs: Laboratory Results - last 48 hr 06/26/23 06/26/23 06/27/23 16:34 19:49 06:33 POC Glucose 164 H 191 H 102 06/27/23 06/27/23 06/27/23 11:27 16:04 20:24 POC Glucose 147 H 153 H 177 H 06/28/23 06/28/23 06:15 11:15 POC Glucose 87 121 H Imaging Radiology Impressions: ITS Impressions Brain MRI 04/03/23 15:30 IMPRESSION: No acute infarct, mass lesion, intracranial hemorrhage, or evidence of hydrocephalus. Mild nonspecific T2/FLAIR hyperintensity in the cerebral white matter and danny presumably on the basis of chronic microangiopathy. Medications Medications Current Medications Acetaminophen (Acetaminophen 325 Mg Tablet) 650 mg PO Q6H PRN PRN Reason: Headache/Pain Mild Scale (1-3) Last Admin: 05/06/23 20:10 Dose: 650 mg Al Hydroxide/Mg Hydroxide (Magnesium Hydrox/Alum Hydrox 30 Ml Oral.Susp) 30 ml PO Q6H PRN PRN Reason: Heartburn/Nausea Atorvastatin Calcium (Atorvastatin Calcium 40 Mg Tablet) 40 mg PO DAILY [facility] Last Admin: 06/28/23 09:06 Dose: 40 mg Dextrose (Dextrose 50 % 25 Gm/50 Ml Syringe) 25 gm IVPUSH Q15M PRN; Protocol PRN Reason: per Hypoglycemia Standing Ord. Donepezil HCl (Donepezil Hcl 10 Mg Tablet) 10 mg PO BEDTIME [facility] Last Admin: 06/27/23 20:38 Dose: 10 mg Empagliflozin (Empagliflozin 25 Mg Tablet) 25 mg PO DAILY [facility] Last Admin: 06/28/23 09:06 Dose: 25 mg Famotidine (Famotidine 20 Mg Tablet) 20 mg PO DAILY [facility] Last Admin: 06/28/23 09:06 Dose: 20 mg Glucose (Glucose Gel 15 Gm Gel..Gram.) 15 gm PO Q15M PRN; Protocol PRN Reason: per Hypoglycemia Standing Ord. Haloperidol (Haloperidol 1 Mg Tablet) 2 mg PO BEDTIME [facility] Insulin Glargine (Insulin Glargine,Hum.Rec.Anlog 100 Unit/Ml 10 Ml Vial) 8 unit SUBCUT DAILY [facility] Last Admin: 06/28/23 09:06 Dose: 8 unit Insulin Human Lispro (Insulin Lispro 100 Unit/Ml 3 Ml Vial) 0 unit SUBCUT QIDACHS [facility]; Protocol Last Admin: 06/28/23 09:16 Dose: Not Given Loperamide HCl (Loperamide Hcl 2 Mg Capsule) 2 mg PO Q6H PRN PRN Reason: Loose Stool Last Admin: 06/23/23 14:52 Dose: 2 mg Magnesium Hydroxide (Milk Of Magnesia 30 Ml Oral.Susp) 30 ml PO DAILY PRN PRN Reason: Constipation Memantine (Memantine Hcl 10 Mg Tablet) 10 mg PO BID [facility] Last Admin: 06/28/23 09:50 Dose: 10 mg Metformin HCl (Metformin Hcl 1,000 Mg Tablet) 1,000 mg PO BID [facility] Last Admin: 06/28/23 09:06 Dose: 1,000 mg Olanzapine (Olanzapine 2.5 Mg Tablet) 2.5 mg PO Q4H PRN PRN Reason: anxiety/agitation Last Admin: 04/29/23 17:17 Dose: 2.5 mg Omeprazole (Omeprazole 20 Mg Capsule.Dr) 20 mg PO DAILY [facility] Last Admin: 06/28/23 09:06 Dose: 20 mg Prednisone (Prednisone 10 Mg Tablet) 10 mg PO DAILY [facility] Last Admin: 06/28/23 09:06 Dose: 10 mg Sertraline HCl (Sertraline Hcl 100 Mg Tablet) 100 mg PO DAILY BEN Last Admin: 06/28/23 09:06 Dose: 100 mg Trazodone HCl (Trazodone Hcl 50 Mg Tablet) 50 mg PO BEDTIME MRX1 PRN PRN Reason: Insomnia Last Admin: 06/19/23 20:26 Dose: 50 mg Allergies Allergies Allergy/AdvReac Type Severity Reaction Status Date / Time No Known Allergies Allergy Verified 03/23/23 18:13 Assessment & Plan Assessment & Plan (1) Dementia: Status: Acute Code(s): F03.90 - Unspecified dementia, unspecified severity, without behavioral disturbance, psychotic disturbance, mood disturbance, and anxiety Assessment and Plan: 57 years old woman with somewhat rapidly progressing dementia or symptoms of dementia with CSF protein of 88 but otherwise no definite clue about her diagnosis. I discussed the case with neurology service at [facility] and they suggested that the workup has been appropriate and thorough and it was not clear if any further investigations were needed. Also, they did not have beds available for transfer According to their experience, this level of CSF protein could be seen and degenerative disorders but could also be seen in some type of spine pathology, which we have not investigated. In any case, high CSF protein without elevation of cells and without any significant brain lesions on MRI, does not suggest malignancy or vasculitis type of pathology. At this time, after discussing the case with the neurologist in [place], my recommendation is to treat her for degenerative dementia appearing in young age. Some CSF tests are pending which may confirm this notion. PET scan can also help. On the other hand, further CSF analysis and investigations for vasculitis like brain biopsy are not warranted. As far as treatment of dementia is concerned, it is symptomatic. I would start with donepezil 5 mg daily and after a week would add memantine 5 mg twice a day. These are the 2 types of medicines available at this time. Finally, her placement could be an issue as she would not be able to live independently Plan 05/05/23 Pt with gross disorganization b sister give hx of more gradual deterioration neuro note reviewed chart reviewed start aricept some csf results pending consider pet if available ?05/07/2023: No changes to current treatment plan.? Treatment team working on complex disposition which may include instituted living in [place] 05/08 continue tx. 05/09 continue tx. 05/10:? neuro believes Dx more likely dementia at this point, consulted with [place] neuro who informed him protein of 88 may sometimes be seen in dementia or spinal disorders and that w/u thus far here had been thorough and adequate.? plan to treat as dementia for now.? neuro rec starting donepezil and 1 week later memantine.? donepezil started 5 days ago, memantine scheduled to be started in 3 days.? 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 per review of [employer], their recommended taper for this pt's duration of therapy and daily dose is to reduce by 5 mg/day every 1-2 weeks.? as her time on steroids has been relatively short, we would proceed with the more aggressive taper.? in any event, dosing to be reduced by 5 mg/day as of today. 05/11: all labs results in, positives are for elevated CSF protein/albumin and pattern of CSF protein c/w alzheimer's dementia. continue induction on cholinesterase inhibitor, pednisone taper, work on dispo planning. 05/12: no change in presentation. discharge planning aggressively underway. start memantine tomorrow. currently planning for discharge monday. 05/13: memantine started today. decrease zyprexa at HS from 5 mg to 2.5 mg in attempt to decrease overall sedation. plan to decrease prednisone by 5 mg/day on monday. 05/14: continue current mgmt. decrease prednisone by 5 mg/day as of tomorrow morning. dispo planning underway. 05/15: continue current mgmt. family meeting tomorrow with pt's daughter and HCP, bakari. 05/16: family mtg held. SW looking into rest homes, family to pursue involving extended family for a place for pt to stay. FSBS elevated, prednisone taper ongoing, SSI being used. 05/17: no change in mgmt. met with [facility] to discuss dispo options. rest home is not an option, STR does not appear to be likely to be an option but is being pursued today. awaiting word from daughter on option to DC to brother's home. will need group home care daily for DM mgmt until no longer requiring SSI, however. per report, her insurance does not cover VNA. 05/18: stable presentation. requesting new MoCA and ACLS as pt's cognition seems to have improved slightly since treatment for AD began. 05/19: stable presentation. daughter working on dispo options. ACLS unchanged from prior. T/C transfer to [facility] today. continue prednisone taper monday. 05/20 Less agitated. No med changes today. 05/21: prednisone taper in process, consider transfer to [facility] 05/22/2023 Hospitalist consult regarding hyperglycemia consider stopping olanzapine and changing to antipsychotic if needed lowered tendency to increase blood sugars. Discharge planning AFTER DISCUSSION WITH MARGARITA PEREZ THE PATIENT WAS PLACED LONG-ACTING INSULIN GLARGINE 05/23: FSBS trending down. continue current mgmt. T/C change to typical anti-psychotic. case d/w Dr. Trotter. 05/24: stable. DCed zyprexa and started haldol 2 mg QHS. completed review with insurance [employer] . continue to seek placement at shelter care facility. 05/25: increase HS haldol to 4 mg, otherwise continue current mgmt. stable presentation. 05/26: no change in presentation. continue current mgmt. 05/27: no change in presentation. continue current mgmt. 05/28: no change in presentation. continue current mgmt. 05/29: no change, continue. 05/30: no change, continue. 05/31: FSBS trending better, recently mostly below 200. otherwise no changes. continue current mgmt. 06/01: FSBS trending better, recently mostly below 200. otherwise no changes. continue current mgmt. daughter has not returned any of 's calls for the past week. 06/02: decrease glargine from 10 units daily to 8 units daily as pt's FSBS have started to come under 100. decrease prednisone this monday and the following monday (orders written). pending placement and getting off of insulin. 06/03 keep same treatment. 06/04 keep same treatment 06/05/23 Pt seen cont tx plan 06/06/2023 Consider increase Namenda transfer to [facility] for more supervision and structured care. Discharge planning would benefit from eventual locked assisted living if possible case reviewed extensively with social Work there has been difficulty coordinating with healthcare proxy Plan 1. Continue with Aricept 10 mg p.o. q.h.s., Namenda 10 mg p.o. b.i.d. to target dementia. 2. Increase all of up to 100 mg p.o. daily on June 14. 3. Waiting for placement. 4. Filing for guardianship. Court hearing for next Monday. 5. We will lower Haldol to 2 mg p.o. q.h.s. on June 28. Reason for continued inpatient stay Substantial Risk for: inability to function, rapid decompensation and med/psych decompensation Time Spent With Patient Time: Total time managing care of this patient today _20___ minutes.
[2023-06-28 16:36] LABS: Glucose, Whole Blood 133 mg/dL (60-115)
[2023-06-28 18:00] VITALS: BP 124/73; PULSE 65; RESP 16; TEMP 37; O2SAT 96
[2023-06-28] MEDS: Donepezil HCl 10 MG TABLET PO (20:55)
[2023-06-28] MEDS: HaloperidoL 1 MG TABLET 2 MG PO (20:56)
[2023-06-28 21:24] LABS: Glucose, Whole Blood 123 mg/dL (60-115)
[2023-06-29 06:00] VITALS: BP 122/72; PULSE 62; RESP 18; TEMP 37.1; O2SAT 97
[2023-06-29 06:44] LABS: Glucose, Whole Blood 95 mg/dL (60-115)
[2023-06-29 07:00] VITALS: BMI 28.7
[2023-06-29] MEDS: Omeprazole 20 MG CAPSULE.DR PO (09:37)
[2023-06-29] MEDS: Atorvastatin Calcium 40 MG TABLET PO (09:37)
[2023-06-29] MEDS: metFORMIN HCl 1,000 MG TABLET 1000 MG PO ×2 (09:37→20:30)
[2023-06-29] MEDS: Insulin Glargine,Hum.rec.anlog 100 UNIT/ML 10 ML VIAL 8 UNIT SUBCUT (09:37)
[2023-06-29] MEDS: Sertraline HCL 100 MG TABLET PO (09:37)
[2023-06-29] MEDS: predniSONE 10 MG TABLET PO (09:37)
[2023-06-29] MEDS: Famotidine 20 MG TABLET PO (09:37)
[2023-06-29] MEDS: Memantine HCl 10 MG TABLET PO ×2 (09:37→20:30)
[2023-06-29] MEDS: Empagliflozin 25 MG TABLET PO (09:37)
--- NOTE | 2023-06-29 11:16 | HO.PSYCHPN ---
Subjective Subjective Date of Service: 06/29/23 Reason For Visit: hallucinations confusion Subjective Notes: Conditional Voluntary Interim History: The nursing staff reported the patient had been wandering the unit, with flat affect pleasant and cooperative. She slept 7 hours. The staff has noticed that she is mostly sedated in the morning and she awakes more in the afternoon attends to groups. She needs constant redirection in the groups. On interview the patient denies new symptoms pleasantly confused, waiting for placement. Mental Status Exam Mental Status Exam Patient Appearance: Appropriate Patient Orientation: Person Level of Consciousness: Awake and Appropriate Patient Behavior: Cooperative and Passive Mood Description: Calm Affect Description: Blunted Patient Cognition Impaired: Yes Ability to Follow Directions: Good Speech Pattern: Clear Hallucinations: None Delusions: Not Present Thought Process: Distracted and Slowed Thinking Thought Content: positive for Poverty of Content Judgement: Poor Diagnostics Vital Signs (24Hr): Vital Signs - 24 hr 06/28/23 18:00 06/29/23 06:00 Temperature 98.6 F 98.7 F Pulse Rate 65 62 Respiratory Rate 16 18 Blood Pressure 124/73 122/72 Pulse Oximetry 96 97 Oxygen Delivery Method Room Air Room Air BMI result Body Mass Index 28.9 Labs 04/08/23 09:08 06/24/23 07:10 Labs: Laboratory Results - last 48 hr 06/27/23 06/27/23 06/27/23 11:27 16:04 20:24 POC Glucose 147 H 153 H 177 H 06/28/23 06/28/23 06/28/23 06:15 11:15 16:31 POC Glucose 87 121 H 133 H 06/28/23 06/29/23 20:54 06:39 POC Glucose 123 H 95 Imaging Radiology Impressions: ITS Impressions Brain MRI 04/03/23 15:30 IMPRESSION: No acute infarct, mass lesion, intracranial hemorrhage, or evidence of hydrocephalus. Mild nonspecific T2/FLAIR hyperintensity in the cerebral white matter and danny presumably on the basis of chronic microangiopathy. Medications Medications Current Medications Acetaminophen (Acetaminophen 325 Mg Tablet) 650 mg PO Q6H PRN PRN Reason: Headache/Pain Mild Scale (1-3) Last Admin: 05/06/23 20:10 Dose: 650 mg Al Hydroxide/Mg Hydroxide (Magnesium Hydrox/Alum Hydrox 30 Ml Oral.Susp) 30 ml PO Q6H PRN PRN Reason: Heartburn/Nausea Atorvastatin Calcium (Atorvastatin Calcium 40 Mg Tablet) 40 mg PO DAILY [facility] Last Admin: 06/29/23 09:37 Dose: 40 mg Dextrose (Dextrose 50 % 25 Gm/50 Ml Syringe) 25 gm IVPUSH Q15M PRN; Protocol PRN Reason: per Hypoglycemia Standing Ord. Donepezil HCl (Donepezil Hcl 10 Mg Tablet) 10 mg PO BEDTIME [facility] Last Admin: 06/28/23 20:55 Dose: 10 mg Empagliflozin (Empagliflozin 25 Mg Tablet) 25 mg PO DAILY [facility] Last Admin: 06/29/23 09:37 Dose: 25 mg Famotidine (Famotidine 20 Mg Tablet) 20 mg PO DAILY [facility] Last Admin: 06/29/23 09:37 Dose: 20 mg Glucose (Glucose Gel 15 Gm Gel..Gram.) 15 gm PO Q15M PRN; Protocol PRN Reason: per Hypoglycemia Standing Ord. Haloperidol (Haloperidol 1 Mg Tablet) 2 mg PO BEDTIME [facility] Last Admin: 06/28/23 20:56 Dose: 2 mg Insulin Glargine (Insulin Glargine,Hum.Rec.Anlog 100 Unit/Ml 10 Ml Vial) 8 unit SUBCUT DAILY [facility] Last Admin: 06/29/23 09:37 Dose: 8 unit Insulin Human Lispro (Insulin Lispro 100 Unit/Ml 3 Ml Vial) 0 unit SUBCUT QIDACHS [facility]; Protocol Last Admin: 06/29/23 09:38 Dose: Not Given Loperamide HCl (Loperamide Hcl 2 Mg Capsule) 2 mg PO Q6H PRN PRN Reason: Loose Stool Last Admin: 06/23/23 14:52 Dose: 2 mg Magnesium Hydroxide (Milk Of Magnesia 30 Ml Oral.Susp) 30 ml PO DAILY PRN PRN Reason: Constipation Memantine (Memantine Hcl 10 Mg Tablet) 10 mg PO BID [facility] Last Admin: 06/29/23 09:37 Dose: 10 mg Metformin HCl (Metformin Hcl 1,000 Mg Tablet) 1,000 mg PO BID [facility] Last Admin: 06/29/23 09:37 Dose: 1,000 mg Olanzapine (Olanzapine 2.5 Mg Tablet) 2.5 mg PO Q4H PRN PRN Reason: anxiety/agitation Last Admin: 04/29/23 17:17 Dose: 2.5 mg Omeprazole (Omeprazole 20 Mg Capsule.Dr) 20 mg PO DAILY [facility] Last Admin: 06/29/23 09:37 Dose: 20 mg Prednisone (Prednisone 10 Mg Tablet) 10 mg PO DAILY [facility] Last Admin: 06/29/23 09:37 Dose: 10 mg Sertraline HCl (Sertraline Hcl 100 Mg Tablet) 100 mg PO DAILY [facility] Last Admin: 06/29/23 09:37 Dose: 100 mg Trazodone HCl (Trazodone Hcl 50 Mg Tablet) 50 mg PO BEDTIME MRX1 PRN PRN Reason: Insomnia Last Admin: 06/19/23 20:26 Dose: 50 mg Allergies Allergies Allergy/AdvReac Type Severity Reaction Status Date / Time No Known Allergies Allergy Verified 03/23/23 18:13 Assessment & Plan Assessment & Plan (1) Dementia: Status: Acute Code(s): F03.90 - Unspecified dementia, unspecified severity, without behavioral disturbance, psychotic disturbance, mood disturbance, and anxiety Assessment and Plan: 57 years old woman with somewhat rapidly progressing dementia or symptoms of dementia with CSF protein of 88 but otherwise no definite clue about her diagnosis. I discussed the case with neurology service at [facility] and they suggested that the workup has been appropriate and thorough and it was not clear if any further investigations were needed. Also, they did not have beds available for transfer According to their experience, this level of CSF protein could be seen and degenerative disorders but could also be seen in some type of spine pathology, which we have not investigated. In any case, high CSF protein without elevation of cells and without any significant brain lesions on MRI, does not suggest malignancy or vasculitis type of pathology. At this time, after discussing the case with the neurologist in [place], my recommendation is to treat her for degenerative dementia appearing in young age. Some CSF tests are pending which may confirm this notion. PET scan can also help. On the other hand, further CSF analysis and investigations for vasculitis like brain biopsy are not warranted. As far as treatment of dementia is concerned, it is symptomatic. I would start with donepezil 5 mg daily and after a week would add memantine 5 mg twice a day. These are the 2 types of medicines available at this time. Finally, her placement could be an issue as she would not be able to live independently Plan 05/05/23 Pt with gross disorganization b sister give hx of more gradual deterioration neuro note reviewed chart reviewed start aricept some csf results pending consider pet if available ?05/07/2023: No changes to current treatment plan.? Treatment team working on complex disposition which may include instituted living in [place] 05/08 continue tx. 05/09 continue tx. 05/10:? neuro believes Dx more likely dementia at this point, consulted with [place] [facility] who informed him protein of 88 may sometimes be seen in dementia or spinal disorders and that w/u thus far here had been thorough and adequate.? plan to treat as dementia for now.? neuro rec starting donepezil and 1 week later memantine.? donepezil started 5 days ago, memantine scheduled to be started in 3 days.? 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 per review of [facility], their recommended taper for this pt's duration of therapy and daily dose is to reduce by 5 mg/day every 1-2 weeks.? as her time on steroids has been relatively short, we would proceed with the more aggressive taper.? in any event, dosing to be reduced by 5 mg/day as of today. 05/11: all labs results in, positives are for elevated CSF protein/albumin and pattern of CSF protein c/w alzheimer's dementia. continue induction on cholinesterase inhibitor, pednisone taper, work on dispo planning. 05/12: no change in presentation. discharge planning aggressively underway. start memantine tomorrow. currently planning for discharge monday. 05/13: memantine started today. decrease zyprexa at HS from 5 mg to 2.5 mg in attempt to decrease overall sedation. plan to decrease prednisone by 5 mg/day on monday. 05/14: continue current mgmt. decrease prednisone by 5 mg/day as of tomorrow morning. dispo planning underway. 05/15: continue current mgmt. family meeting tomorrow with pt's daughter and HCP, bakari. 05/16: family mtg held. SW looking into rest homes, family to pursue involving extended family for a place for pt to stay. FSBS elevated, prednisone taper ongoing, SSI being used. 05/17: no change in mgmt. met with [facility] to discuss dispo options. rest home is not an option, STR does not appear to be likely to be an option but is being pursued today. awaiting word from daughter on option to DC to brother's home. will need snf care daily for DM mgmt until no longer requiring SSI, however. per report, her insurance does not cover VNA. 05/18: stable presentation. requesting new MoCA and ACLS as pt's cognition seems to have improved slightly since treatment for AD began. 05/19: stable presentation. daughter working on dispo options. ACLS unchanged from prior. T/C transfer to [facility] today. continue prednisone taper monday. 05/20 Less agitated. No med changes today. 05/21: prednisone taper in process, consider transfer to [facility] 05/22/2023 Hospitalist consult regarding hyperglycemia consider stopping olanzapine and changing to antipsychotic if needed lowered tendency to increase blood sugars. Discharge planning AFTER DISCUSSION WITH MARGARITA PEREZ THE PATIENT WAS PLACED LONG-ACTING INSULIN GLARGINE 05/23: FSBS trending down. continue current mgmt. T/C change to typical anti-psychotic. case d/w Dr. Trotter. 05/24: stable. DCed zyprexa and started haldol 2 mg QHS. completed review with insurance [employer] . continue to seek placement at [facility]. 05/25: increase HS haldol to 4 mg, otherwise continue current mgmt. stable presentation. 05/26: no change in presentation. continue current mgmt. 05/27: no change in presentation. continue current mgmt. 05/28: no change in presentation. continue current mgmt. 05/29: no change, continue. 05/30: no change, continue. 05/31: FSBS trending better, recently mostly below 200. otherwise no changes. continue current mgmt. 06/01: FSBS trending better, recently mostly below 200. otherwise no changes. continue current mgmt. daughter has not returned any of 's calls for the past week. 06/02: decrease glargine from 10 units daily to 8 units daily as pt's FSBS have started to come under 100. decrease prednisone this monday and the following monday (orders written). pending placement and getting off of insulin. 06/03 keep same treatment. 06/04 keep same treatment 06/05/23 Pt seen cont tx plan 06/06/2023 Consider increase Namenda transfer to [facility] for more supervision and structured care. Discharge planning would benefit from eventual locked assisted living if possible case reviewed extensively with social Work there has been difficulty coordinating with healthcare proxy Plan 1. Continue with Aricept 10 mg p.o. q.h.s., Namenda 10 mg p.o. b.i.d. to target dementia. 2. Increase all of up to 100 mg p.o. daily on June 14. 3. Waiting for placement. 4. Filing for guardianship. Court hearing for next Monday. 5. We will lower Haldol to 2 mg p.o. q.h.s. on June 28. Reason for continued inpatient stay Substantial Risk for: inability to function, rapid decompensation and med/psych decompensation Time Spent With Patient Time: Total time managing care of this patient today __20__ minutes.
[2023-06-29 11:24] LABS: Glucose, Whole Blood 173 mg/dL (60-115)
[2023-06-29] MEDS: Insulin Lispro 100 UNIT/ML 3 ML VIAL SUBCUT ×2 (11:38→20:28)
[2023-06-29 16:20] LABS: Glucose, Whole Blood 128 mg/dL (60-115)
[2023-06-29 20:00] VITALS: BP 133/60; PULSE 73; RESP 20; TEMP 36.6; O2SAT 98
[2023-06-29 20:04] LABS: Glucose, Whole Blood 209 mg/dL (60-115)
[2023-06-29] MEDS: Donepezil HCl 10 MG TABLET PO (20:30)
[2023-06-29] MEDS: HaloperidoL 1 MG TABLET 2 MG PO (20:30)
[2023-06-30 06:54] LABS: Glucose, Whole Blood 85 mg/dL (60-115)
[2023-06-30 08:44] VITALS: BP 136/76; PULSE 78; RESP 16; TEMP 36.7; O2SAT 94
[2023-06-30 11:15] LABS: Glucose, Whole Blood 186 mg/dL (60-115)
--- NOTE | 2023-06-30 11:38 | P.PNPSI_ITS ---
Subjective Subjective Date of Service: 06/30/23 Reason For Visit: hallucinations confusion Subjective Notes: Conditional Voluntary Interim History: The nursing staff reported the patient has been pleasant, wandering in the unit. The long term care social worker reported that hearing for the guardianship is today. Today, we stop the prednisone since she ready finished the taper of this medication. On interview the patient is confused pleasant but with a blunted affect and abulia. Mental Status Exam Mental Status Exam Patient Appearance: Appropriate Patient Orientation: Person and Situation Level of Consciousness: Awake and Appropriate Patient Behavior: Guarded and Passive Mood Description: Calm Affect Description: Blunted Patient Cognition Impaired: Yes Ability to Follow Directions: Good Speech Pattern: Clear Hallucinations: None Delusions: Not Present Thought Process: Distracted and Slowed Thinking Thought Content: positive for [place] and positive for Poverty of Content Judgement: Fair Diagnostics Vital Signs (24Hr): Vital Signs - 24 hr 06/29/23 20:00 06/30/23 08:44 Temperature 97.9 F 98.1 F Pulse Rate 73 78 Respiratory Rate 20 16 Blood Pressure 133/60 136/76 Pulse Oximetry 98 94 Oxygen Delivery Method Room Air Room Air BMI result Body Mass Index 28.7 Labs 04/08/23 09:08 06/24/23 07:10 Labs: Laboratory Results - last 48 hr 06/28/23 06/28/23 06/29/23 16:31 20:54 06:39 POC Glucose 133 H 123 H 95 06/29/23 06/29/23 06/29/23 11:17 16:14 19:59 POC Glucose 173 H 128 H 209 H 06/30/23 06/30/23 06:22 11:11 POC Glucose 85 186 H Imaging Radiology Impressions: ITS Impressions Brain MRI 04/03/23 15:30 IMPRESSION: No acute infarct, mass lesion, intracranial hemorrhage, or evidence of hydrocephalus. Mild nonspecific T2/FLAIR hyperintensity in the cerebral white matter and danny presumably on the basis of chronic microangiopathy. Medications Medications Current Medications Acetaminophen (Acetaminophen 325 Mg Tablet) 650 mg PO Q6H PRN PRN Reason: Headache/Pain Mild Scale (1-3) Last Admin: 05/06/23 20:10 Dose: 650 mg Al Hydroxide/Mg Hydroxide (Magnesium Hydrox/Alum Hydrox 30 Ml Oral.Susp) 30 ml PO Q6H PRN PRN Reason: Heartburn/Nausea Atorvastatin Calcium (Atorvastatin Calcium 40 Mg Tablet) 40 mg PO DAILY [facility] Last Admin: 06/29/23 09:37 Dose: 40 mg Dextrose (Dextrose 50 % 25 Gm/50 Ml Syringe) 25 gm IVPUSH Q15M PRN; Protocol PRN Reason: per Hypoglycemia Standing Ord. Donepezil HCl (Donepezil Hcl 10 Mg Tablet) 10 mg PO BEDTIME [facility] Last Admin: 06/29/23 20:30 Dose: 10 mg Empagliflozin (Empagliflozin 25 Mg Tablet) 25 mg PO DAILY [facility] Last Admin: 06/29/23 09:37 Dose: 25 mg Famotidine (Famotidine 20 Mg Tablet) 20 mg PO DAILY [facility] Last Admin: 06/29/23 09:37 Dose: 20 mg Glucose (Glucose Gel 15 Gm Gel..Gram.) 15 gm PO Q15M PRN; Protocol PRN Reason: per Hypoglycemia Standing Ord. Haloperidol (Haloperidol 1 Mg Tablet) 2 mg PO BEDTIME [facility] Last Admin: 06/29/23 20:30 Dose: 2 mg Insulin Glargine (Insulin Glargine,Hum.Rec.Anlog 100 Unit/Ml 10 Ml Vial) 8 unit SUBCUT DAILY [facility] Last Admin: 06/29/23 09:37 Dose: 8 unit Insulin Human Lispro (Insulin Lispro 100 Unit/Ml 3 Ml Vial) 0 unit SUBCUT QIDACHS [facility]; Protocol Last Admin: 06/30/23 08:56 Dose: Not Given Loperamide HCl (Loperamide Hcl 2 Mg Capsule) 2 mg PO Q6H PRN PRN Reason: Loose Stool Last Admin: 06/23/23 14:52 Dose: 2 mg Magnesium Hydroxide (Milk Of Magnesia 30 Ml Oral.Susp) 30 ml PO DAILY PRN PRN Reason: Constipation Memantine (Memantine Hcl 10 Mg Tablet) 10 mg PO BID [facility] Last Admin: 06/29/23 20:30 Dose: 10 mg Metformin HCl (Metformin Hcl 1,000 Mg Tablet) 1,000 mg PO BID [facility] Last Admin: 06/29/23 20:30 Dose: 1,000 mg Olanzapine (Olanzapine 2.5 Mg Tablet) 2.5 mg PO Q4H PRN PRN Reason: anxiety/agitation Last Admin: 04/29/23 17:17 Dose: 2.5 mg Omeprazole (Omeprazole 20 Mg Capsule.Dr) 20 mg PO DAILY [facility] Last Admin: 06/29/23 09:37 Dose: 20 mg Sertraline HCl (Sertraline Hcl 100 Mg Tablet) 100 mg PO DAILY [facility] Last Admin: 06/29/23 09:37 Dose: 100 mg Trazodone HCl (Trazodone Hcl 50 Mg Tablet) 50 mg PO BEDTIME MRX1 PRN PRN Reason: Insomnia Last Admin: 06/19/23 20:26 Dose: 50 mg Allergies Allergies Allergy/AdvReac Type Severity Reaction Status Date / Time No Known Allergies Allergy Verified 03/23/23 18:13 Assessment & Plan Assessment & Plan (1) Dementia: Status: Acute Code(s): F03.90 - Unspecified dementia, unspecified severity, without behavioral disturbance, psychotic disturbance, mood disturbance, and anxiety Assessment and Plan: 57 years old woman with somewhat rapidly progressing dementia or symptoms of dementia with CSF protein of 88 but otherwise no definite clue about her diagnosis. I discussed the case with neurology service at [facility] and they suggested that the workup has been appropriate and thorough and it was not clear if any further investigations were needed. Also, they did not have beds available for transfer According to their experience, this level of CSF protein could be seen and degenerative disorders but could also be seen in some type of spine pathology, which we have not investigated. In any case, high CSF protein without elevation of cells and without any significant brain lesions on MRI, does not suggest malignancy or vasculitis type of pathology. At this time, after discussing the case with the neurologist in [place], my recommendation is to treat her for degenerative dementia appearing in young age. Some CSF tests are pending which may confirm this notion. PET scan can also help. On the other hand, further CSF analysis and investigations for vasculitis like brain biopsy are not warranted. As far as treatment of dementia is concerned, it is symptomatic. I would start with donepezil 5 mg daily and after a week would add memantine 5 mg twice a day. These are the 2 types of medicines available at this time. Finally, her placement could be an issue as she would not be able to live independently Plan 05/05/23 Pt with gross disorganization b sister give hx of more gradual deterioration neuro note reviewed chart reviewed start aricept some csf results pending consider pet if available ?05/07/2023: No changes to current treatment plan.? Treatment team working on complex disposition which may include instituted living in [place] 05/08 continue tx. 05/09 continue tx. 05/10:? neuro believes Dx more likely dementia at this point, consulted with [place] neuro who informed him protein of 88 may sometimes be seen in dementia or spinal disorders and that w/u thus far here had been thorough and adequate.? plan to treat as dementia for now.? neuro rec starting donepezil and 1 week later memantine.? donepezil started 5 days ago, memantine scheduled to be started in 3 days.? 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 per review of [facility], their recommended taper for this pt's duration of therapy and daily dose is to reduce by 5 mg/day every 1-2 weeks.? as her time on steroids has been relatively short, we would proceed with the more aggressive taper.? in any event, dosing to be reduced by 5 mg/day as of today. 05/11: all labs results in, positives are for elevated CSF protein/albumin and pattern of CSF protein c/w alzheimer's dementia. continue induction on cholinesterase inhibitor, pednisone taper, work on dispo planning. 05/12: no change in presentation. discharge planning aggressively underway. start memantine tomorrow. currently planning for discharge monday. 05/13: memantine started today. decrease zyprexa at HS from 5 mg to 2.5 mg in attempt to decrease overall sedation. plan to decrease prednisone by 5 mg/day on monday. 05/14: continue current mgmt. decrease prednisone by 5 mg/day as of tomorrow morning. dispo planning underway. 05/15: continue current mgmt. family meeting tomorrow with pt's daughter and HCP, bakari. 05/16: family mtg held. SW looking into rest homes, family to pursue involving extended family for a place for pt to stay. FSBS elevated, prednisone taper ongoing, SSI being used. 05/17: no change in mgmt. met with [facility] to discuss dispo options. rest home is not an option, STR does not appear to be likely to be an option but is being pursued today. awaiting word from daughter on option to DC to brother's home. will need snf care daily for DM mgmt until no longer requiring SSI, however. per report, her insurance does not cover VNA. 05/18: stable presentation. requesting new MoCA and ACLS as pt's cognition seems to have improved slightly since treatment for AD began. 05/19: stable presentation. daughter working on dispo options. ACLS unchanged from prior. T/C transfer to [facility] today. continue prednisone taper monday. 05/20 Less agitated. No med changes today. 05/21: prednisone taper in process, [facility] 05/22/2023 Hospitalist consult regarding hyperglycemia consider stopping olanzapine and changing to antipsychotic if needed lowered tendency to increase blood sugars. Discharge planning AFTER DISCUSSION WITH MARGARITA PEREZ THE PATIENT WAS PLACED LONG-ACTING INSULIN GLARGINE 05/23: FSBS trending down. continue current mgmt. T/C change to typical anti- psychotic. case d/w Dr. Trotter. 05/24: stable. DCed zyprexa and started haldol 2 mg QHS. completed review with insurance company MD. continue to seek placement at [facility]. 05/25: increase HS haldol to 4 mg, otherwise continue current mgmt. stable presentation. 05/26: no change in presentation. continue current mgmt. 05/27: no change in presentation. continue current mgmt. 05/28: no change in presentation. continue current mgmt. 05/29: no change, continue. 05/30: no change, continue. 05/31: FSBS trending better, recently mostly below 200. otherwise no changes. continue current mgmt. 06/01: FSBS trending better, recently mostly below 200. otherwise no changes. continue current mgmt. daughter has not returned any of 's calls for the past week. 06/02: decrease glargine from 10 units daily to 8 units daily as pt's FSBS have started to come under 100. decrease prednisone this monday and the following monday (orders written). pending placement and getting off of insulin. 06/03 keep same treatment. 06/04 keep same treatment 06/05/23 Pt seen cont tx plan 06/06/2023 Consider increase Namenda transfer to [facility] for more supervision and structured care. Discharge planning would benefit from eventual locked assisted living if possible case reviewed extensively with social Work there has been difficulty coordinating with healthcare proxy Plan 1. Continue with Aricept 10 mg p.o. q.h.s., Namenda 10 mg p.o. b.i.d. to target dementia. 2. Increase all of up to 100 mg p.o. daily on June 14. 3. Waiting for placement. 4. Filing for guardianship. Court hearing for next Monday. 5. We will lower Haldol to 2 mg p.o. q.h.s. on June 28. 6. Corticoids discontinued on June 30 Reason for continued inpatient stay Substantial Risk for: inability to function, rapid decompensation and med/psych decompensation Time Spent With Patient Time: Total time managing care of this patient today __20__ minutes.
[2023-06-30] MEDS: Insulin Lispro 100 UNIT/ML 3 ML VIAL SUBCUT ×2 (12:30→20:45)
[2023-06-30] MEDS: Insulin Glargine,Hum.rec.anlog 100 UNIT/ML 10 ML VIAL 8 UNIT SUBCUT (12:42)
[2023-06-30] MEDS: Omeprazole 20 MG CAPSULE.DR PO (12:44)
[2023-06-30] MEDS: metFORMIN HCl 1,000 MG TABLET 1000 MG PO ×2 (12:44→20:46)
[2023-06-30] MEDS: Atorvastatin Calcium 40 MG TABLET PO (12:44)
[2023-06-30] MEDS: Sertraline HCL 100 MG TABLET PO (12:44)
[2023-06-30] MEDS: Famotidine 20 MG TABLET PO (12:44)
[2023-06-30] MEDS: Memantine HCl 10 MG TABLET PO ×2 (12:45→20:46)
[2023-06-30] MEDS: Empagliflozin 25 MG TABLET PO (12:46)
[2023-06-30 16:34] LABS: Glucose, Whole Blood 81 mg/dL (60-115)
[2023-06-30 18:00] VITALS: BP 128/70; PULSE 75; RESP 18; TEMP 36.8; O2SAT 97
[2023-06-30] MEDS: Acetaminophen 325 MG TABLET 650 MG PO (18:55)
[2023-06-30 19:42] LABS: Glucose, Whole Blood 189 mg/dL (60-115)
[2023-06-30] MEDS: HaloperidoL 1 MG TABLET 2 MG PO (20:46)
[2023-06-30] MEDS: Donepezil HCl 10 MG TABLET PO (20:46)
[2023-07-01 06:58] LABS: Glucose, Whole Blood 94 mg/dL (60-115)
[2023-07-01 07:23] LABS: Creatinine Clr Calc Pharmacy 92.5; Estimated Glomerular Filt Rate > 60
[2023-07-01 08:02] VITALS: BP 156/75; PULSE 73; RESP 18; TEMP 36; O2SAT 96
[2023-07-01] MEDS: Famotidine 20 MG TABLET PO (08:44)
[2023-07-01] MEDS: Insulin Glargine,Hum.rec.anlog 100 UNIT/ML 10 ML VIAL 8 UNIT SUBCUT (08:44)
[2023-07-01] MEDS: metFORMIN HCl 1,000 MG TABLET 1000 MG PO ×2 (08:44→20:37)
[2023-07-01] MEDS: Sertraline HCL 100 MG TABLET PO (08:44)
[2023-07-01] MEDS: Omeprazole 20 MG CAPSULE.DR PO (08:44)
[2023-07-01] MEDS: Atorvastatin Calcium 40 MG TABLET PO (08:44)
[2023-07-01] MEDS: Memantine HCl 10 MG TABLET PO ×2 (08:44→20:37)
[2023-07-01] MEDS: Empagliflozin 25 MG TABLET PO (08:44)
[2023-07-01 11:26] LABS: Glucose, Whole Blood 81 mg/dL (60-115)
[2023-07-01] MEDS: Loperamide HCl 2 MG CAPSULE PO (14:44)
[2023-07-01 16:15] LABS: Glucose, Whole Blood 118 mg/dL (60-115)
[2023-07-01] MEDS: Acetaminophen 325 MG TABLET 650 MG PO (17:34)
--- NOTE | 2023-07-01 17:50 | P.PNPSI_ITS ---
Subjective Subjective Date of Service: 07/01/23 Reason For Visit: hallucinations confusion Guardianship: Yes ( Temporary granted a 03/25/2023) Interim History: met with patient. Discussed with Nursing. Overall clear cognitive impairment and requires lots of prompting. noted temporary guarded guardianship granted on 06/30/2023. in hallway. Isolative. No overt concerns. Reported wanting to make sure she got her medications. Denies feeling depressed or unsafe. Sleep has been okay. Medication Compliance: Yes Side effects from medications: No Attending Groups: Intermittent Mental Status Exam Mental Status Exam Narrative: Does require lots of prompting around basic activities. Patient Appearance: Appropriate Patient Orientation: Person and Situation Level of Consciousness: Awake and Appropriate Patient Behavior: Guarded and Passive Mood Description: Calm Affect Description: Blunted Patient Cognition Impaired: Yes Ability to Follow Directions: Good Speech Pattern: Clear Hallucinations: None Delusions: Not Present Thought Process: Distracted and Slowed Thinking Thought Content: positive for [place] and positive for Poverty of Content Judgement: Fair Diagnostics Vital Signs (24Hr): Vital Signs - 24 hr 06/30/23 18:00 07/01/23 08:02 Temperature 98.3 F 96.8 F Pulse Rate 75 73 Respiratory Rate 18 18 Blood Pressure 128/70 156/75 H Pulse Oximetry 97 96 Oxygen Delivery Method Room Air Room Air BMI result Body Mass Index 28.7 Labs 04/08/23 09:08 07/01/23 06:24 Labs: Laboratory Results - last 48 hr 06/29/23 06/30/23 06/30/23 19:59 06:22 11:11 Creatinine Estim Creat Clear Calc Estimated GFR POC Glucose 209 H 85 186 H 06/30/23 06/30/23 07/01/23 16:30 19:37 06:24 Creatinine 0.62 Estim Creat Clear Calc 92.5 Estimated GFR > 60 POC Glucose 81 189 H 07/01/23 07/01/23 07/01/23 06:43 11:21 16:09 Creatinine Estim Creat Clear Calc Estimated GFR POC Glucose 94 81 118 H Imaging Radiology Impressions: ITS Impressions Brain MRI 04/03/23 15:30 IMPRESSION: No acute infarct, mass lesion, intracranial hemorrhage, or evidence of hydrocephalus. Mild nonspecific T2/FLAIR hyperintensity in the cerebral white matter and danny presumably on the basis of chronic microangiopathy. Medications Medications Current Medications Acetaminophen (Acetaminophen 325 Mg Tablet) 650 mg PO Q6H PRN PRN Reason: Headache/Pain Mild Scale (1-3) Last Admin: 07/01/23 17:34 Dose: 650 mg Al Hydroxide/Mg Hydroxide (Magnesium Hydrox/Alum Hydrox 30 Ml Oral.Susp) 30 ml PO Q6H PRN PRN Reason: Heartburn/Nausea Atorvastatin Calcium (Atorvastatin Calcium 40 Mg Tablet) 40 mg PO DAILY [facility] Last Admin: 07/01/23 08:44 Dose: 40 mg Dextrose (Dextrose 50 % 25 Gm/50 Ml Syringe) 25 gm IVPUSH Q15M PRN; Protocol PRN Reason: per Hypoglycemia Standing Ord. Donepezil HCl (Donepezil Hcl 10 Mg Tablet) 10 mg PO BEDTIME [facility] Last Admin: 06/30/23 20:46 Dose: 10 mg Empagliflozin (Empagliflozin 25 Mg Tablet) 25 mg PO DAILY [facility] Last Admin: 07/01/23 08:44 Dose: 25 mg Famotidine (Famotidine 20 Mg Tablet) 20 mg PO DAILY [facility] Last Admin: 07/01/23 08:44 Dose: 20 mg Glucose (Glucose Gel 15 Gm Gel..Gram.) 15 gm PO Q15M PRN; Protocol PRN Reason: per Hypoglycemia Standing Ord. Haloperidol (Haloperidol 1 Mg Tablet) 2 mg PO BEDTIME [facility] Last Admin: 06/30/23 20:46 Dose: 2 mg Insulin Glargine (Insulin Glargine,Hum.Rec.Anlog 100 Unit/Ml 10 Ml Vial) 8 unit SUBCUT DAILY [facility] Last Admin: 07/01/23 08:44 Dose: 8 unit Insulin Human Lispro (Insulin Lispro 100 Unit/Ml 3 Ml Vial) 0 unit SUBCUT QIDACHS [facility]; Protocol Last Admin: 07/01/23 16:22 Dose: Not Given Loperamide HCl (Loperamide Hcl 2 Mg Capsule) 2 mg PO Q6H PRN PRN Reason: Loose Stool Last Admin: 07/01/23 14:44 Dose: 2 mg Magnesium Hydroxide (Milk Of Magnesia 30 Ml Oral.Susp) 30 ml PO DAILY PRN PRN Reason: Constipation Memantine (Memantine Hcl 10 Mg Tablet) 10 mg PO BID [facility] Last Admin: 07/01/23 08:44 Dose: 10 mg Metformin HCl (Metformin Hcl 1,000 Mg Tablet) 1,000 mg PO BID [facility] Last Admin: 07/01/23 08:44 Dose: 1,000 mg Olanzapine (Olanzapine 2.5 Mg Tablet) 2.5 mg PO Q4H PRN PRN Reason: anxiety/agitation Last Admin: 04/29/23 17:17 Dose: 2.5 mg Omeprazole (Omeprazole 20 Mg Capsule.Dr) 20 mg PO DAILY [facility] Last Admin: 07/01/23 08:44 Dose: 20 mg Sertraline HCl (Sertraline Hcl 100 Mg Tablet) 100 mg PO DAILY [facility] Last Admin: 07/01/23 08:44 Dose: 100 mg Trazodone HCl (Trazodone Hcl 50 Mg Tablet) 50 mg PO BEDTIME [facility]X1 PRN PRN Reason: Insomnia Last Admin: 06/19/23 20:26 Dose: 50 mg Allergies Allergies Allergy/AdvReac Type Severity Reaction Status Date / Time No Known Allergies Allergy Verified 03/23/23 18:13 Assessment & Plan Assessment & Plan (1) Dementia: Status: Acute Code(s): F03.90 - Unspecified dementia, unspecified severity, without behavioral disturbance, psychotic disturbance, mood disturbance, and anxiety Assessment and Plan: 57 years old woman with somewhat rapidly progressing dementia or symptoms of dementia with CSF protein of 88 but otherwise no definite clue about her diagnosis. I discussed the case with neurology service at [facility] and they suggested that the workup has been appropriate and thorough and it was not clear if any further investigations were needed. Also, they did not have beds available for transfer According to their experience, this level of CSF protein could be seen and degenerative disorders but could also be seen in some type of spine pathology, which we have not investigated. In any case, high CSF protein without elevation of cells and without any significant brain lesions on MRI, does not suggest malignancy or vasculitis type of pathology. At this time, after discussing the case with the neurologist in [place], my recommendation is to treat her for degenerative dementia appearing in young age. Some CSF tests are pending which may confirm this notion. PET scan can also help. On the other hand, further CSF analysis and investigations for vasculitis like brain biopsy are not warranted. As far as treatment of dementia is concerned, it is symptomatic. I would start with donepezil 5 mg daily and after a week would add memantine 5 mg twice a day. These are the 2 types of medicines available at this time. Finally, her placement could be an issue as she would not be able to live independently Plan 6/30/23 Pt with gross disorganization b sister give hx of more gradual deterioration neuro note reviewed chart reviewed start aricept some csf results pending consider pet if available ?05/07/2023: No changes to current treatment plan.? Treatment team working on complex disposition which may include instituted living in [place] 05/08 continue tx. 05/09 continue tx. 05/10:? neuro believes Dx more likely dementia at this point, consulted with [place] [facility] who informed him protein of 88 may sometimes be seen in dementia or spinal disorders and that w/u thus far here had been thorough and adequate.? plan to treat as dementia for now.? neuro rec starting donepezil and 1 week later memantine.? donepezil started 5 days ago, memantine scheduled to be started in 3 days.? 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 per review of [employer], their recommended taper for this pt's duration of therapy and daily dose is to reduce by 5 mg/day every 1-2 weeks.? as her time on steroids has been relatively short, we would proceed with the more aggressive taper.? in any event, dosing to be reduced by 5 mg/day as of today. 05/11: all labs results in, positives are for elevated CSF protein/albumin and pattern of CSF protein c/w alzheimer's dementia. continue induction on cholinesterase inhibitor, pednisone taper, work on dispo planning. 05/12: no change in presentation. discharge planning aggressively underway. start memantine tomorrow. currently planning for discharge monday. 05/13: memantine started today. decrease zyprexa at HS from 5 mg to 2.5 mg in attempt to decrease overall sedation. plan to decrease prednisone by 5 mg/day on monday. 05/14: continue current mgmt. decrease prednisone by 5 mg/day as of tomorrow morning. dispo planning underway. 05/15: continue current mgmt. family meeting tomorrow with pt's daughter and HCP, bakari. 05/16: family mtg held. SW looking into rest homes, family to pursue involving extended family for a place for pt to stay. FSBS elevated, prednisone taper ongoing, SSI being used. 05/17: no change in mgmt. met with [facility] and [facility] to discuss dispo options. rest home is not an option, STR does not appear to be likely to be an option but is being pursued today. awaiting word from daughter on option to DC to brother's home. will need intermediate care daily for DM mgmt until no longer requiring SSI, however. per report, her insurance does not cover VNA. 05/18: stable presentation. requesting new MoCA and ACLS as pt's cognition seems to have improved slightly since treatment for AD began. 05/19: stable presentation. daughter working on dispo options. ACLS unchanged from prior. T/C transfer to [facility] today. continue prednisone taper monday. 05/20 Less agitated. No med changes today. 05/21: prednisone taper in process, consider transfer to [facility] 05/22/2023 Hospitalist consult regarding hyperglycemia consider stopping olanzapine and changing to antipsychotic if needed lowered tendency to increase blood sugars. Discharge planning AFTER DISCUSSION WITH MARGARITA PEREZ THE PATIENT WAS PLACED LONG-ACTING INSULIN GLARGINE 05/23: FSBS trending down. continue current mgmt. T/C change to typical anti- psychotic. case d/w Dr. Trotter. 05/24: stable. DCed zyprexa and started haldol 2 mg QHS. completed review with insurance company . continue to seek placement at senior care care facility. 05/25: increase HS haldol to 4 mg, otherwise continue current mgmt. stable presentation. 05/26: no change in presentation. continue current mgmt. 05/27: no change in presentation. continue current mgmt. 05/28: no change in presentation. continue current mgmt. 05/29: no change, continue. 05/30: no change, continue. 05/31: FSBS trending better, recently mostly below 200. otherwise no changes. continue current mgmt. 06/01: FSBS trending better, recently mostly below 200. otherwise no changes. continue current mgmt. daughter has not returned any of MEKA's calls for the past week. 06/02: decrease glargine from 10 units daily to 8 units daily as pt's FSBS have started to come under 100. decrease prednisone this monday and the following monday (orders written). pending placement and getting off of insulin. 06/03 keep same treatment. 7/30 keep same treatment 06/05/23 Pt seen cont tx plan 06/06/2023 Consider increase Namenda transfer to [facility] for more supervision and structured care. Discharge planning would benefit from eventual locked assisted living if possible case reviewed extensively with social Work there has been difficulty coordinating with healthcare proxy Plan 1. Continue with Aricept 10 mg p.o. q.h.s., Namenda 10 mg p.o. b.i.d. to target dementia. 2. Increase all of up to 100 mg p.o. daily on June 14. 3. Waiting for placement. 4. Filing for guardianship. Court hearing for next Monday. 5. We will lower Haldol to 2 mg p.o. q.h.s. on June 28. 6. Corticoids discontinued on June 30 07/01/2023: Temporary guardianship granted on 06/30/2023. Otherwise no changes to current plan Reason for continued inpatient stay Substantial Risk for: inability to function Time Spent With Patient Time: Total time managing care of this patient today ____ minutes.
[2023-07-01 18:00] VITALS: BP 118/59; PULSE 70; RESP 18; TEMP 36.7; O2SAT 94
[2023-07-01 19:58] LABS: Glucose, Whole Blood 207 mg/dL (60-115)
[2023-07-01] MEDS: Insulin Lispro 100 UNIT/ML 3 ML VIAL SUBCUT (20:36)
[2023-07-01] MEDS: Donepezil HCl 10 MG TABLET PO (20:37)
[2023-07-01] MEDS: HaloperidoL 1 MG TABLET 2 MG PO (20:37)
[2023-07-02] MEDS: traZODone HCL 50 MG TABLET PO ×2 (02:37→20:41)
[2023-07-02] MEDS: OLANZapine 2.5 MG TABLET PO (02:37)
[2023-07-02 06:46] LABS: Glucose, Whole Blood 89 mg/dL (60-115)
[2023-07-02] MEDS: Acetaminophen 325 MG TABLET 650 MG PO ×2 (07:45→15:20)
[2023-07-02 08:01] VITALS: BP 149/79; PULSE 76; RESP 16; TEMP 36.2; O2SAT 98
[2023-07-02 11:22] LABS: Glucose, Whole Blood 125 mg/dL (60-115)
[2023-07-02] MEDS: metFORMIN HCl 1,000 MG TABLET 1000 MG PO ×2 (11:56→20:40)
[2023-07-02] MEDS: Sertraline HCL 100 MG TABLET PO (11:56)
[2023-07-02] MEDS: Omeprazole 20 MG CAPSULE.DR PO (11:56)
[2023-07-02] MEDS: Atorvastatin Calcium 40 MG TABLET PO (11:56)
[2023-07-02] MEDS: Famotidine 20 MG TABLET PO (11:57)
[2023-07-02] MEDS: Empagliflozin 25 MG TABLET PO (11:57)
[2023-07-02] MEDS: Memantine HCl 10 MG TABLET PO ×2 (11:57→20:40)
[2023-07-02] MEDS: Ibuprofen 600 MG TABLET PO ×2 (12:14→20:39)
--- NOTE | 2023-07-02 12:24 | HO.PSYCHPN ---
Subjective Subjective Date of Service: 07/02/23 Reason For Visit: hallucinations confusion Interim History: met with patient. Discussed with Nursing. Overall clear cognitive impairment and requires lots of prompting. noted temporary guarded guardianship granted on 06/30/2023. In day area. Fairly presented. in day area. 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 Reports having a headache. Did not eat breakfast today. More perseverative today. Sleep was broken last night. Blood sugar 89 and insulin held Review of Systems Review of Systems headache Mental Status Exam Mental Status Exam Narrative: In day area. Fairy presented. Minimal engagement. Diagnostics Vital Signs (24Hr): Vital Signs - 24 hr 07/01/23 18:00 07/02/23 08:01 Temperature 98.1 F 97.1 F Pulse Rate 70 76 Respiratory Rate 18 16 Blood Pressure 118/59 L 149/79 H Pulse Oximetry 94 98 Oxygen Delivery Method Room Air Room Air BMI result Body Mass Index 28.7 Labs 04/08/23 09:08 07/01/23 06:24 Labs: Laboratory Results - last 48 hr 06/30/23 06/30/23 07/01/23 16:30 19:37 06:24 Creatinine 0.62 Estim Creat Clear Calc 92.5 Estimated GFR > 60 POC Glucose 81 189 H 07/01/23 07/01/23 07/01/23 06:43 11:21 16:09 Creatinine Estim Creat Clear Calc Estimated GFR POC Glucose 94 81 118 H 07/01/23 07/02/23 07/02/23 19:48 06:36 11:17 Creatinine Estim Creat Clear Calc Estimated GFR POC Glucose 207 H 89 125 H Imaging Radiology Impressions: ITS Impressions Brain MRI 04/03/23 15:30 IMPRESSION: No acute infarct, mass lesion, intracranial hemorrhage, or evidence of hydrocephalus. Mild nonspecific T2/FLAIR hyperintensity in the cerebral white matter and danny presumably on the basis of chronic microangiopathy. Medications Medications Current Medications Acetaminophen (Acetaminophen 325 Mg Tablet) 650 mg PO Q6H PRN PRN Reason: Headache/Pain Mild Scale (1-3) Last Admin: 07/02/23 07:45 Dose: 650 mg Al Hydroxide/Mg Hydroxide (Magnesium Hydrox/Alum Hydrox 30 Ml Oral.Susp) 30 ml PO Q6H PRN PRN Reason: Heartburn/Nausea Atorvastatin Calcium (Atorvastatin Calcium 40 Mg Tablet) 40 mg PO DAILY [facility] Last Admin: 07/02/23 11:56 Dose: 40 mg Dextrose (Dextrose 50 % 25 Gm/50 Ml Syringe) 25 gm IVPUSH Q15M PRN; Protocol PRN Reason: per Hypoglycemia Standing Ord. Donepezil HCl (Donepezil Hcl 10 Mg Tablet) 10 mg PO BEDTIME [facility] Last Admin: 07/01/23 20:37 Dose: 10 mg Empagliflozin (Empagliflozin 25 Mg Tablet) 25 mg PO DAILY [facility] Last Admin: 07/02/23 11:57 Dose: 25 mg Famotidine (Famotidine 20 Mg Tablet) 20 mg PO DAILY [facility] Last Admin: 07/02/23 11:57 Dose: 20 mg Glucose (Glucose Gel 15 Gm Gel..Gram.) 15 gm PO Q15M PRN; Protocol PRN Reason: per Hypoglycemia Standing Ord. Haloperidol (Haloperidol 1 Mg Tablet) 2 mg PO BEDTIME [facility] Last Admin: 07/01/23 20:37 Dose: 2 mg Ibuprofen (Ibuprofen 600 Mg Tablet) 600 mg PO Q6H PRN PRN Reason: pain not relieved by tylenol Last Admin: 07/02/23 12:14 Dose: 600 mg Insulin Glargine (Insulin Glargine,Hum.Rec.Anlog 100 Unit/Ml 10 Ml Vial) 8 unit SUBCUT DAILY [facility] Last Admin: 07/02/23 08:50 Dose: Not Given Insulin Human Lispro (Insulin Lispro 100 Unit/Ml 3 Ml Vial) 0 unit SUBCUT QIDACHS [facility]; Protocol Last Admin: 07/02/23 11:30 Dose: Not Given Loperamide HCl (Loperamide Hcl 2 Mg Capsule) 2 mg PO Q6H PRN PRN Reason: Loose Stool Last Admin: 07/01/23 14:44 Dose: 2 mg Magnesium Hydroxide (Milk Of Magnesia 30 Ml Oral.Susp) 30 ml PO DAILY PRN PRN Reason: Constipation Memantine (Memantine Hcl 10 Mg Tablet) 10 mg PO BID [facility] Last Admin: 07/02/23 11:57 Dose: 10 mg Metformin HCl (Metformin Hcl 1,000 Mg Tablet) 1,000 mg PO BID [facility] Last Admin: 07/02/23 11:56 Dose: 1,000 mg Olanzapine (Olanzapine 2.5 Mg Tablet) 2.5 mg PO Q4H PRN PRN Reason: anxiety/agitation Last Admin: 07/02/23 02:37 Dose: 2.5 mg Omeprazole (Omeprazole 20 Mg Capsule.) 20 mg PO DAILY [facility] Last Admin: 07/02/23 11:56 Dose: 20 mg Sertraline HCl (Sertraline Hcl 100 Mg Tablet) 100 mg PO DAILY [facility] Last Admin: 07/02/23 11:56 Dose: 100 mg Trazodone HCl (Trazodone Hcl 50 Mg Tablet) 50 mg PO BEDTIME MRX1 PRN PRN Reason: Insomnia Last Admin: 07/02/23 02:37 Dose: 50 mg Allergies Allergies Allergy/AdvReac Type Severity Reaction Status Date / Time No Known Allergies Allergy Verified 03/23/23 18:13 Assessment & Plan Assessment & Plan (1) Dementia: Status: Acute Code(s): F03.90 - Unspecified dementia, unspecified severity, without behavioral disturbance, psychotic disturbance, mood disturbance, and anxiety Assessment and Plan: 57 years old woman with somewhat rapidly progressing dementia or symptoms of dementia with CSF protein of 88 but otherwise no definite clue about her diagnosis. I discussed the case with neurology service at [facility] and they suggested that the workup has been appropriate and thorough and it was not clear if any further investigations were needed. Also, they did not have beds available for transfer According to their experience, this level of CSF protein could be seen and degenerative disorders but could also be seen in some type of spine pathology, which we have not investigated. In any case, high CSF protein without elevation of cells and without any significant brain lesions on MRI, does not suggest malignancy or vasculitis type of pathology. At this time, after discussing the case with the neurologist in [place], my recommendation is to treat her for degenerative dementia appearing in young age. Some CSF tests are pending which may confirm this notion. PET scan can also help. On the other hand, further CSF analysis and investigations for vasculitis like brain biopsy are not warranted. As far as treatment of dementia is concerned, it is symptomatic. I would start with donepezil 5 mg daily and after a week would add memantine 5 mg twice a day. These are the 2 types of medicines available at this time. Finally, her placement could be an issue as she would not be able to live independently Plan 05/05/23 Pt with gross disorganization b sister give hx of more gradual deterioration neuro note reviewed chart reviewed start aricept some csf results pending consider pet if available ?05/07/2023: No changes to current treatment plan.? Treatment team working on complex disposition which may include instituted living in [place] 05/08 continue tx. 05/09 continue tx. 05/10:? neuro believes Dx more likely dementia at this point, consulted with [place] neuro who informed him protein of 88 may sometimes be seen in dementia or spinal disorders and that w/u thus far here had been thorough and adequate.? plan to treat as dementia for now.? neuro rec starting donepezil and 1 week later memantine.? donepezil started 5 days ago, memantine scheduled to be started in 3 days.? 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 per review of [employer], their recommended taper for this pt's duration of therapy and daily dose is to reduce by 5 mg/day every 1-2 weeks.? as her time on steroids has been relatively short, we would proceed with the more aggressive taper.? in any event, dosing to be reduced by 5 mg/day as of today. 05/11: all labs results in, positives are for elevated CSF protein/albumin and pattern of CSF protein c/w alzheimer's dementia. continue induction on cholinesterase inhibitor, pednisone taper, work on dispo planning. 05/12: no change in presentation. discharge planning aggressively underway. start memantine tomorrow. currently planning for discharge monday. 05/13: memantine started today. decrease zyprexa at HS from 5 mg to 2.5 mg in attempt to decrease overall sedation. plan to decrease prednisone by 5 mg/day on monday. 05/14: continue current mgmt. decrease prednisone by 5 mg/day as of tomorrow morning. dispo planning underway. 05/15: continue current mgmt. family meeting tomorrow with pt's daughter and HCP, bakari. 05/16: family mtg held. SW looking into rest homes, family to pursue involving extended family for a place for pt to stay. FSBS elevated, prednisone taper ongoing, SSI being used. 05/17: no change in mgmt. met with [facility] and [facility] bunch to discuss dispo options. rest home is not an option, STR does not appear to be likely to be an option but is being pursued today. awaiting word from daughter on option to DC to brother's home. will need intermediate care daily for DM mgmt until no longer requiring SSI, however. per report, her insurance does not cover VNA. 05/18: stable presentation. requesting new MoCA and ACLS as pt's cognition seems to have improved slightly since treatment for AD began. 05/19: stable presentation. daughter working on dispo options. ACLS unchanged from prior. T/C transfer to [facility] today. continue prednisone taper monday. 05/20 Less agitated. No med changes today. 05/21: prednisone taper in process, [facility]23 Hospitalist consult regarding hyperglycemia consider stopping olanzapine and changing to antipsychotic if needed lowered tendency to increase blood sugars. Discharge planning AFTER DISCUSSION WITH MARGARITA PEREZ THE PATIENT WAS PLACED LONG-ACTING INSULIN GLARGINE 05/23: FSBS trending down. continue current mgmt. T/C change to typical anti-psychotic. case d/w Dr. Trotter. 05/24: stable. DCed zyprexa and started haldol 2 mg QHS. completed review with insurance [employer] . [facility]. 05/25: increase HS haldol to 4 mg, otherwise continue current mgmt. stable presentation. 05/26: no change in presentation. continue current mgmt. 05/27: no change in presentation. continue current mgmt. 05/28: no change in presentation. continue current mgmt. 05/29: no change, continue. 05/30: no change, continue. 05/31: FSBS trending better, recently mostly below 200. otherwise no changes. continue current mgmt. 06/01: FSBS trending better, recently mostly below 200. otherwise no changes. continue current mgmt. daughter has not returned any of 's calls for the past week. 06/02: decrease glargine from 10 units daily to 8 units daily as pt's FSBS have started to come under 100. decrease prednisone this monday and the following monday (orders written). pending placement and getting off of insulin. 06/03 keep same treatment. 06/04 keep same treatment 06/05/23 Pt seen cont tx plan 06/06/2023 Consider increase Namenda transfer to [facility] for more supervision and structured care. Discharge planning would benefit from eventual locked assisted living if possible case reviewed extensively with social Work there has been difficulty coordinating with healthcare proxy Plan 1. Continue with Aricept 10 mg p.o. q.h.s., Namenda 10 mg p.o. b.i.d. to target dementia. 2. Increase all of up to 100 mg p.o. daily on June 14. 3. Waiting for placement. 4. Filing for guardianship. Court hearing for next Monday. 5. We will lower Haldol to 2 mg p.o. q.h.s. on June 28. 6. Corticoids discontinued on June 30 07/02/2023: Temporary guardianship granted on 06/30/2023. Otherwise no changes to current plan Reason for continued inpatient stay Substantial Risk for: inability to function Time Spent With Patient Time: Total time managing care of this patient today ____ minutes.
[2023-07-02 16:40] LABS: Glucose, Whole Blood 173 mg/dL (60-115)
[2023-07-02] MEDS: Insulin Lispro 100 UNIT/ML 3 ML VIAL SUBCUT ×2 (16:43→21:28)
[2023-07-02 18:00] VITALS: BP 133/79; PULSE 73; RESP 18; TEMP 35.8; O2SAT 96
[2023-07-02] MEDS: Donepezil HCl 10 MG TABLET PO (20:39)
[2023-07-02] MEDS: HaloperidoL 1 MG TABLET 2 MG PO (20:40)
[2023-07-02 21:25] LABS: Glucose, Whole Blood 187 mg/dL (60-115)
[2023-07-03 06:35] LABS: Glucose, Whole Blood 89 mg/dL (60-115)
[2023-07-03] MEDS: Acetaminophen 325 MG TABLET 650 MG PO (06:46)
[2023-07-03 09:45] VITALS: BP 119/65; PULSE 80; RESP 20; TEMP 36.9; O2SAT 95
[2023-07-03] MEDS: Atorvastatin Calcium 40 MG TABLET PO (09:47)
[2023-07-03] MEDS: metFORMIN HCl 1,000 MG TABLET 1000 MG PO ×2 (09:47→21:05)
[2023-07-03] MEDS: Sertraline HCL 100 MG TABLET PO (09:47)
[2023-07-03] MEDS: Omeprazole 20 MG CAPSULE.DR PO (09:47)
[2023-07-03] MEDS: Insulin Glargine,Hum.rec.anlog 100 UNIT/ML 10 ML VIAL 8 UNIT SUBCUT (09:47)
[2023-07-03] MEDS: Memantine HCl 10 MG TABLET PO ×2 (09:48→21:05)
[2023-07-03] MEDS: Famotidine 20 MG TABLET PO (09:48)
[2023-07-03] MEDS: Empagliflozin 25 MG TABLET PO (09:48)
[2023-07-03 11:42] LABS: Glucose, Whole Blood 77 mg/dL (60-115)
[2023-07-03 16:39] LABS: Glucose, Whole Blood 86 mg/dL (60-115)
--- NOTE | 2023-07-03 17:06 | HO.PSYCHPN ---
Subjective Subjective Date of Service: 07/03/23 Reason For Visit: hallucinations confusion Guardianship: Yes Interim History: PATIENT HAVING DIFFICULTY WITH AMBULATION REVIEWED WITH NURSING DIFFICULTY KEEPING HER HEAD UP. THIS APPEARS TO BE A NEW SYMPTOM Medication Compliance: Yes Mental Status Exam Mental Status Exam Narrative: PATIENT SEEN SITTING ON THE FLOOR MUCH OF DAY. SOMEWHAT FLAT PASSIVE HER NAME COMPLAINS OF WEAKNESS FEELING LIKE SHE CAN NOT STAND UP NO CLEAR COMPLAINT PAIN DIFFICULTY HOLDING HER HEAD UP MOVING ALL EXTREMITIES Diagnostics Vital Signs (24Hr): Vital Signs - 24 hr 07/02/23 18:00 07/03/23 09:45 Temperature 96.5 F L 98.5 F Pulse Rate 73 80 Respiratory Rate 18 20 Blood Pressure 133/79 119/65 Pulse Oximetry 96 95 Oxygen Delivery Method Room Air Room Air BMI result Body Mass Index 28.7 Labs 04/08/23 09:08 07/01/23 06:24 Labs: Laboratory Results - last 48 hr 07/01/23 07/02/23 07/02/23 19:48 06:36 11:17 POC Glucose 207 H 89 125 H 07/02/23 07/02/23 07/03/23 16:34 21:20 06:09 POC Glucose 173 H 187 H 89 07/03/23 07/03/23 11:37 16:18 POC Glucose 77 86 Imaging Radiology Impressions: ITS Impressions Brain MRI 04/03/23 15:30 IMPRESSION: No acute infarct, mass lesion, intracranial hemorrhage, or evidence of hydrocephalus. Mild nonspecific T2/FLAIR hyperintensity in the cerebral white matter and danny presumably on the basis of chronic microangiopathy. Medications Medications Current Medications Acetaminophen (Acetaminophen 325 Mg Tablet) 650 mg PO Q6H PRN PRN Reason: Headache/Pain Mild Scale (1-3) Last Admin: 07/03/23 06:46 Dose: 650 mg Al Hydroxide/Mg Hydroxide (Magnesium Hydrox/Alum Hydrox 30 Ml Oral.Susp) 30 ml PO Q6H PRN PRN Reason: Heartburn/Nausea Atorvastatin Calcium (Atorvastatin Calcium 40 Mg Tablet) 40 mg PO DAILY [facility] Last Admin: 07/03/23 09:47 Dose: 40 mg Dextrose (Dextrose 50 % 25 Gm/50 Ml Syringe) 25 gm IVPUSH Q15M PRN; Protocol PRN Reason: per Hypoglycemia Standing Ord. Donepezil HCl (Donepezil Hcl 10 Mg Tablet) 10 mg PO BEDTIME [facility] Last Admin: 07/02/23 20:39 Dose: 10 mg Empagliflozin (Empagliflozin 25 Mg Tablet) 25 mg PO DAILY [facility] Last Admin: 07/03/23 09:48 Dose: 25 mg Famotidine (Famotidine 20 Mg Tablet) 20 mg PO DAILY [facility] Last Admin: 07/03/23 09:48 Dose: 20 mg Glucose (Glucose Gel 15 Gm Gel..Gram.) 15 gm PO Q15M PRN; Protocol PRN Reason: per Hypoglycemia Standing Ord. Haloperidol (Haloperidol 1 Mg Tablet) 2 mg PO BEDTIME [facility] Last Admin: 07/02/23 20:40 Dose: 2 mg Ibuprofen (Ibuprofen 600 Mg Tablet) 600 mg PO Q6H PRN PRN Reason: pain not relieved by tylenol Last Admin: 07/02/23 20:39 Dose: 600 mg Insulin Glargine (Insulin Glargine,Hum.Rec.Anlog 100 Unit/Ml 10 Ml Vial) 8 unit SUBCUT DAILY [facility] Last Admin: 07/03/23 09:47 Dose: 8 unit Insulin Human Lispro (Insulin Lispro 100 Unit/Ml 3 Ml Vial) 0 unit SUBCUT QIDAS [facility]; Protocol Last Admin: 07/03/23 16:55 Dose: Not Given Loperamide HCl (Loperamide Hcl 2 Mg Capsule) 2 mg PO Q6H PRN PRN Reason: Loose Stool Last Admin: 07/01/23 14:44 Dose: 2 mg Magnesium Hydroxide (Milk Of Magnesia 30 Ml Oral.Susp) 30 ml PO DAILY PRN PRN Reason: Constipation Memantine (Memantine Hcl 10 Mg Tablet) 10 mg PO BID [facility] Last Admin: 07/03/23 09:48 Dose: 10 mg Metformin HCl (Metformin Hcl 1,000 Mg Tablet) 1,000 mg PO BID [facility] Last Admin: 07/03/23 09:47 Dose: 1,000 mg Olanzapine (Olanzapine 2.5 Mg Tablet) 2.5 mg PO Q4H PRN PRN Reason: anxiety/agitation Last Admin: 07/02/23 02:37 Dose: 2.5 mg Omeprazole (Omeprazole 20 Mg Capsule.Dr) 20 mg PO DAILY [facility] Last Admin: 07/03/23 09:47 Dose: 20 mg Sertraline HCl (Sertraline Hcl 100 Mg Tablet) 100 mg PO DAILY [facility] Last Admin: 07/03/23 09:47 Dose: 100 mg Trazodone HCl (Trazodone Hcl 50 Mg Tablet) 50 mg PO BEDTIME MRX1 PRN PRN Reason: Insomnia Last Admin: 07/02/23 20:41 Dose: 50 mg Allergies Allergies Allergy/AdvReac Type Severity Reaction Status Date / Time No Known Allergies Allergy Verified 03/23/23 18:13 Assessment & Plan Assessment & Plan (1) Dementia: Status: Acute Code(s): F03.90 - Unspecified dementia, unspecified severity, without behavioral disturbance, psychotic disturbance, mood disturbance, and anxiety Assessment and Plan: 57 years old woman with somewhat rapidly progressing dementia or symptoms of dementia with CSF protein of 88 but otherwise no definite clue about her diagnosis. I discussed the case with neurology service at [facility] and they suggested that the workup has been appropriate and thorough and it was not clear if any further investigations were needed. Also, they did not have beds available for transfer According to their experience, this level of CSF protein could be seen and degenerative disorders but could also be seen in some type of spine pathology, which we have not investigated. In any case, high CSF protein without elevation of cells and without any significant brain lesions on MRI, does not suggest malignancy or vasculitis type of pathology. At this time, after discussing the case with the neurologist in [place], my recommendation is to treat her for degenerative dementia appearing in young age. Some CSF tests are pending which may confirm this notion. PET scan can also help. On the other hand, further CSF analysis and investigations for vasculitis like brain biopsy are not warranted. As far as treatment of dementia is concerned, it is symptomatic. I would start with donepezil 5 mg daily and after a week would add memantine 5 mg twice a day. These are the 2 types of medicines available at this time. Finally, her placement could be an issue as she would not be able to live independently Plan 05/05/23 Pt with gross disorganization b sister give hx of more gradual deterioration neuro note reviewed chart reviewed start aricept some csf results pending consider pet if available ?05/07/2023: No changes to current treatment plan.? Treatment team working on complex disposition which may include instituted living in [place] 05/08 continue tx. 05/09 continue tx. 05/10:? neuro believes Dx more likely dementia at this point, consulted with [facility] neuro who informed him protein of 88 may sometimes be seen in dementia or spinal disorders and that w/u thus far here had been thorough and adequate.? plan to treat as dementia for now.? neuro rec starting donepezil and 1 week later memantine.? donepezil started 5 days ago, memantine scheduled to be started in 3 days.? 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 per review of [employer], their recommended taper for this pt's duration of therapy and daily dose is to reduce by 5 mg/day every 1-2 weeks.? as her time on steroids has been relatively short, we would proceed with the more aggressive taper.? in any event, dosing to be reduced by 5 mg/day as of today. 05/11: all labs results in, positives are for elevated CSF protein/albumin and pattern of CSF protein c/w alzheimer's dementia. continue induction on cholinesterase inhibitor, pednisone taper, work on dispo planning. 05/12: no change in presentation. discharge planning aggressively underway. start memantine tomorrow. currently planning for discharge monday. 05/13: memantine started today. decrease zyprexa at HS from 5 mg to 2.5 mg in attempt to decrease overall sedation. plan to decrease prednisone by 5 mg/day on monday. 05/14: continue current mgmt. decrease prednisone by 5 mg/day as of tomorrow morning. dispo planning underway. 05/15: continue current mgmt. family meeting tomorrow with pt's daughter and HCP, bakari. 05/16: family mtg held. SW looking into rest homes, family to pursue involving extended family for a place for pt to stay. FSBS elevated, prednisone taper ongoing, SSI being used. 05/17: no change in mgmt. met with [facility] to discuss dispo options. rest home is not an option, STR does not appear to be likely to be an option but is being pursued today. awaiting word from daughter on option to DC to brother's home. will need longterm care daily for DM mgmt until no longer requiring SSI, however. per report, her insurance does not cover VNA. 05/18: stable presentation. requesting new MoCA and ACLS as pt's cognition seems to have improved slightly since treatment for AD began. 7/14: stable presentation. daughter working on dispo options. ACLS unchanged from prior. T/C transfer to [facility] today. continue prednisone taper monday. 05/20 Less agitated. No med changes today. 05/21: prednisone taper in process, consider transfer to [facility] 05/22/2023 Hospitalist consult regarding hyperglycemia consider stopping olanzapine and changing to antipsychotic if needed lowered tendency to increase blood sugars. Discharge planning AFTER DISCUSSION WITH MARGARITA PEREZ THE PATIENT WAS PLACED LONG-ACTING INSULIN GLARGINE 05/23: FSBS trending down. continue current mgmt. T/C change to typical anti-psychotic. case d/w Dr. Trotter. 05/24: stable. DCed zyprexa and started haldol 2 mg QHS. completed review with insurance company . continue to seek placement at [facility]. 05/25: increase HS haldol to 4 mg, otherwise continue current mgmt. stable presentation. 05/26: no change in presentation. continue current mgmt. 05/27: no change in presentation. continue current mgmt. 05/28: no change in presentation. continue current mgmt. 05/29: no change, continue. 05/30: no change, continue. 05/31: FSBS trending better, recently mostly below 200. otherwise no changes. continue current mgmt. 06/01: FSBS trending better, recently mostly below 200. otherwise no changes. continue current mgmt. daughter has not returned any of 's calls for the past week. 06/02: decrease glargine from 10 units daily to 8 units daily as pt's FSBS have started to come under 100. decrease prednisone this monday and the following monday (orders written). pending placement and getting off of insulin. 06/03 keep same treatment. 06/04 keep same treatment 06/05/23 Pt seen cont tx plan 06/06/2023 Consider increase Namenda transfer to [facility] for more supervision and structured care. Discharge planning would benefit from eventual locked assisted living if possible case reviewed extensively with social Work there has been difficulty coordinating with healthcare proxy Plan 1. Continue with Aricept 10 mg p.o. q.h.s., Namenda 10 mg p.o. b.i.d. to target dementia. 2. Increase all of up to 100 mg p.o. daily on June 14. 3. Waiting for placement. 4. Filing for guardianship. Court hearing for next Monday. 5. We will lower Haldol to 2 mg p.o. q.h.s. on June 28. 6. Corticoids discontinued on June 30 07/02/2023: Temporary guardianship granted on 06/30/2023. Otherwise no changes to current plan 07/03/2023 PATIENT SITTING ON THE FLOOR STATING SHE CAN NOT GET UP DIFFICULTY HOLDING HER HEAD UP SHE DID HAVE BEHAVIOR LIKE THIS EARLY ON IN THE HOSPITAL ADMISSION A T FEELS MAY BE A HEAD DROP SYNDROME ASSOCIATED WITH DEMENTIA CHECK LABS UA HOSPITALIST CONSULT IF NO IMPROVEMENT NEURO CONSULT PATIENT SHOULD REMAIN ON ONE-TO-ONE FOR NOW FALL RISK Reason for continued inpatient stay Substantial Risk for: rapid decompensation and med/psych decompensation Time Spent With Patient Time: Total time managing care of this patient today ____ minutes.
--- NOTE | 2023-07-03 18:03 | PC.NURSE ---
Pt observed sitting on floor 3x this shift. When asked why she was sitting on floor stated, I do that when I do not feel strong enough to stand. I think it is better than falling. Staff report that pt placed self on floor multiple times yesterday as well. Dr Trotter informed, pt placed on 1:1 observation for safety. Hospitalist consult ordered for inability to keep head/neck upward; Roxi Cloud PA up for consult.
[2023-07-03 18:23] LABS: MANUAL DIFF FLAG NO
[2023-07-03 18:33] LABS: Basophils Percent Auto 0.3 % (0-2); Eosinophils Absolute Auto 0.2 X10*3/uL (0.0-0.4); Eosinophils Percent Auto 1.8 % (0-4); Hematocrit 44.2 % (37.0-47.0); Hemoglobin 14.1 g/dl (12.0-16.0); Imm Gran Abs Auto 0.05 X10*3/uL (0.00-0.03); Imm Gran Pct Auto 0.5 % (0.0-0.4); Lymphocytes Absolute Auto 1.2 X10*3/uL (1.2-4.9); Lymphocytes Percent Auto 12.6 % (20-40); Mean Corpuscular HGB Conc 31.9 g/dl (31.0-35.0); Mean Corpuscular Hemoglobin 27.5 pg (27.0-33.0); Mean Corpuscular Volume 86.3 fL (80.0-98.0); Mean Platelet Volume 9.9 fL (9.4-12.3); Monocytes Absolute Auto 0.7 X10*3/uL (0.1-1.2); Neutrophils Absolute Auto 7.7 x10*3/uL (2.0-8.3); Neutrophils Percent Auto 77.8 % (45-73); Platelet Count 275 X10*3/uL (160-400); Red Blood Count 5.12 X10*6/uL (4.20-5.50); White Blood Count 9.8 X10*3/uL (4.8-10.8)
[2023-07-03 19:04] LABS: Alanine Aminotransferase 22 U/L (0-31); Albumin Level 3.6 g/dL (3.5-5.0); Alkaline Phosphatase 69 U/L (39-117); Anion Gap 15 (12-20); Aspartate Amino Transferase 29 U/L (5-31); Bilirubin Total 0.4 mg/dL (0.0-1.0); Blood Urea Nitrogen 12 mg/dL (9-16); Calcium 9.1 mg/dL (8.4-10.2); Carbon Dioxide 28 mmol/L (22-29); Chloride 103 mmol/L (96-108); Creatinine Clr Calc Pharmacy 89.6; Estimated Glomerular Filt Rate > 60; Glucose Random 95 mg/dL (60-115); Potassium 3.1 mmol/L (3.3-5.1); Sodium 143 mmol/L (135-145)
--- NOTE | 2023-07-03 19:16 | PM.EVENT ---
Event Note Date of Service: 07/03/23 Event Note: 58-year-old female with history of type 2 diabetes, GERD, unspecified dementia, depression admitted to Psychiatry consult placed to hospitalist service for evaluation of generalized weakness and bilateral neck pain. The patient reports the symptoms have been going on for about 3 weeks. Psychiatry staff has noted patient consistently with neck in flexion. Patient states that neck feels heavy with pain bilaterally. No neck stiffness, headache, sore throat. She has been reporting she feels so weak that she has been sitting on the floor so as not to fall. Denies any trauma. No unilateral weakness or paresthesias. On exam, patient has 4/5 strength in the bilateral upper extremities, 5/5 strength in the bilateral lower extremities, negative pronator drift. No cerebellar ataxia noted. There is no midline tenderness the cervical spine but there is bilateral paraspinal tenderness. She is noted to have neck in flexion. OT has recommended neurology consult to evaluate for neck drop. Plan: -will check CT cervical spine -per OT, recommend placing neurology consult for further evaluation of neck drop and general weakness Time Spent With Patient Time: Total time managing care of this patient today ____ minutes.
[2023-07-03 20:15] VITALS: BP 124/59; PULSE 73; TEMP 37.3; O2SAT 93
[2023-07-03 20:16] LABS: Glucose, Whole Blood 92 mg/dL (60-115)
[2023-07-03] MEDS: traZODone HCL 50 MG TABLET PO (21:05)
[2023-07-03] MEDS: HaloperidoL 1 MG TABLET 2 MG PO (21:05)
[2023-07-03] MEDS: Donepezil HCl 10 MG TABLET PO (21:05)
[2023-07-04 06:46] LABS: Glucose, Whole Blood 75 mg/dL (60-115)
[2023-07-04 08:06] LABS: Appearance Urine Cloudy; Color Urine Yellow; Glucose Urine UA >=1000 mg/dL (Negative); Leukocyte Esterase Urine Moderate (2+) (Negative); Nitrite Urine Positive (Negative); PH 5.5 (5.0-9.0); Specific Gravity - Urine 1.025 (1.005-1.025); UMIC TRIGGER UACC YES; Urine Blood Trace (Negative); Urine Ketones 15 mg/dL (Negative); Urine Protein Trace mg/dL (Neg-Trace)
[2023-07-04 08:20] VITALS: BP 144/69; PULSE 89; RESP 20; TEMP 37.2; O2SAT 94
[2023-07-04] MEDS: Atorvastatin Calcium 40 MG TABLET PO (08:22)
[2023-07-04] MEDS: Memantine HCl 10 MG TABLET PO ×2 (08:22→19:53)
[2023-07-04] MEDS: Empagliflozin 25 MG TABLET PO (08:23)
[2023-07-04] MEDS: Omeprazole 20 MG CAPSULE.DR PO (08:23)
[2023-07-04] MEDS: Famotidine 20 MG TABLET PO (08:23)
[2023-07-04] MEDS: metFORMIN HCl 1,000 MG TABLET 1000 MG PO ×2 (08:23→19:53)
[2023-07-04] MEDS: Sertraline HCL 100 MG TABLET PO (08:23)
[2023-07-04] MEDS: Insulin Glargine,Hum.rec.anlog 100 UNIT/ML 10 ML VIAL 8 UNIT SUBCUT (08:27)
[2023-07-04 08:28] LABS: Bacteria Urine 4+ (None Seen); Hyaline Casts Urine 0-2 /LPF (0-2); RBC Urine 0-2 /HPF (0-2); UACC Culture Trigger YES; WBC Clumps Urine Present; WBC Urine >50 /HPF (0-5)
--- NOTE | 2023-07-04 10:09 | HO.PSYCHPN ---
Subjective Subjective Date of Service: 06/27/23 Reason For Visit: hallucinations confusion Guardianship: Yes Medical Problems Affecting Mental Status: Yes Interim History: Patient is withdrawn at times ambulation has improved Richard wagner added cervical spine films unremarkable neuro consult order labs unremarkable Medication Compliance: Yes Review of Systems Acute medical concerns: Yes Fatigue some degree of weakness difficulty keeping her neck up Mental Status Exam Mental Status Exam Narrative: Does require lots of prompting around basic activities. Patient Appearance: Fatigued Patient Orientation: Person Level of Consciousness: Awake Patient Behavior: Guarded and Passive Mood Description: Calm and Apprehensive Affect Description: Blunted Patient Cognition Impaired: Yes Ability to Follow Directions: Fair Speech Pattern: Clear Hallucinations: None Delusions: Not Present Thought Process: Distracted and Slowed Thinking Thought Content: positive for [place] and positive for Poverty of Content Abnormal Motor Activity Signs and Symptoms: Psychomotor Retardation Judgement: Fair Diagnostics Vital Signs (24Hr): Vital Signs - 24 hr 07/03/23 20:15 07/04/23 08:20 Temperature 99.1 F 99.0 F Pulse Rate 73 89 Respiratory Rate 20 Blood Pressure 124/59 L 144/69 H Pulse Oximetry 93 94 Oxygen Delivery Method Room Air Room Air BMI result Body Mass Index 28.7 Labs 07/03/23 18:16 07/03/23 18:16 Labs: Laboratory Results - last 48 hr 07/02/23 07/02/23 07/02/23 11:17 16:34 21:20 WBC RBC Hgb Hct MCV MCH MCHC RDW Plt Count MPV Immature Gran % (Auto) Neut % (Auto) Lymph % (Auto) [place] % (Auto) Eos % (Auto) Baso % (Auto) Lymph # (Auto) [place] # (Auto) Eos # (Auto) Baso # (Auto) Abs Immat Gran (auto) Absolute Neuts (auto) Absolute Nucleated RBC Nucleated RBC % (auto) Sodium Potassium Chloride Carbon Dioxide Anion Gap BUN Creatinine Estim Creat Clear Calc Estimated GFR POC Glucose 125 H 173 H 187 H Random Glucose Calcium Total Bilirubin AST ALT Alkaline Phosphatase Total Protein Albumin Urine Color Urine Appearance Urine pH Ur Specific [place] Urine Protein Urine Glucose (UA) Urine Ketones Urine Blood Urine Nitrite Ur Leukocyte Esterase Urine RBC Urine WBC Urine WBC Clumps Ur Squamous Epith Cells Urine Bacteria Hyaline Casts 07/03/23 07/03/23 07/03/23 06:09 11:37 16:18 WBC RBC Hgb Hct MCV MCH MCHC RDW Plt Count MPV Immature Gran % (Auto) Neut % (Auto) Lymph % (Auto) [place] % (Auto) Eos % (Auto) Baso % (Auto) Lymph # (Auto) [place] # (Auto) Eos # (Auto) Baso # (Auto) Abs Immat Gran (auto) Absolute Neuts (auto) Absolute Nucleated RBC Nucleated RBC % (auto) Sodium Potassium Chloride Carbon Dioxide Anion Gap BUN Creatinine Estim Creat Clear Calc Estimated GFR POC Glucose 89 77 86 Random Glucose Calcium Total Bilirubin AST ALT Alkaline Phosphatase Total Protein Albumin Urine Color Urine Appearance Urine pH Ur Specific [place] Urine Protein Urine Glucose (UA) Urine Ketones Urine Blood Urine Nitrite Ur Leukocyte Esterase Urine RBC Urine WBC Urine WBC Clumps Ur Squamous Epith Cells Urine Bacteria Hyaline Casts 07/03/23 07/03/23 07/03/23 18:16 18:16 20:12 WBC 9.8 RBC 5.12 Hgb 14.1 Hct 44.2 MCV 86.3 MCH 27.5 MCHC 31.9 RDW 14.0 Plt Count 275 D MPV 9.9 Immature Gran % (Auto) 0.5 H Neut % (Auto) 77.8 H Lymph % (Auto) 12.6 L [place] % (Auto) 7.0 Eos % (Auto) 1.8 Baso % (Auto) 0.3 Lymph # (Auto) 1.2 [place] # (Auto) 0.7 Eos # (Auto) 0.2 Baso # (Auto) 0.0 Abs Immat Gran (auto) 0.05 H Absolute Neuts (auto) 7.7 Absolute Nucleated RBC 0.000 Nucleated RBC % (auto) 0.0 Sodium 143 Potassium 3.1 L Chloride 103 Carbon Dioxide 28 Anion Gap 15 BUN 12 Creatinine 0.64 Estim Creat Clear Calc 89.6 Estimated GFR > 60 POC Glucose 92 Random Glucose 95 Calcium 9.1 Total Bilirubin 0.4 AST 29 ALT 22 Alkaline Phosphatase 69 Total Protein 6.0 L Albumin 3.6 Urine Color Urine Appearance Urine pH Ur Specific [place] Urine Protein Urine Glucose (UA) Urine Ketones Urine Blood Urine Nitrite Ur Leukocyte Esterase Urine RBC Urine WBC Urine WBC Clumps Ur Squamous Epith Cells Urine Bacteria Hyaline Casts 07/04/23 07/04/23 06:39 07:50 WBC RBC Hgb Hct MCV MCH MCHC RDW Plt Count MPV Immature Gran % (Auto) Neut % (Auto) Lymph % (Auto) [place] % (Auto) Eos % (Auto) Baso % (Auto) Lymph # (Auto) [place] # (Auto) Eos # (Auto) Baso # (Auto) Abs Immat Gran (auto) Absolute Neuts (auto) Absolute Nucleated RBC Nucleated RBC % (auto) Sodium Potassium Chloride Carbon Dioxide Anion Gap BUN Creatinine Estim Creat Clear Calc Estimated GFR POC Glucose 75 Random Glucose Calcium Total Bilirubin AST ALT Alkaline Phosphatase Total Protein Albumin Urine Color Yellow Urine Appearance Cloudy Urine pH 5.5 Ur Specific [place] 1.025 Urine Protein Trace Urine Glucose (UA) >=1000 H Urine Ketones 15 Urine Blood Trace H Urine Nitrite Positive H Ur Leukocyte Esterase Moderate (2+) H Urine RBC 0-2 Urine WBC >50 H Urine WBC Clumps Present Ur Squamous Epith Cells 3-5 Urine Bacteria 4+ Hyaline Casts 0-2 Imaging Radiology Impressions: ITS Impressions Brain MRI 04/03/23 15:30 IMPRESSION: No acute infarct, mass lesion, intracranial hemorrhage, or evidence of hydrocephalus. Mild nonspecific T2/FLAIR hyperintensity in the cerebral white matter and danny presumably on the basis of chronic microangiopathy. Cervical Spine CT 07/03/23 20:12 IMPRESSION: No acute findings within the cervical spine. The cervical central canal is not well assessed on this CT due to artifact. If weakness persists, a cervical spine MRI would be more sensitive in assessment. Medications Medications Current Medications Acetaminophen (Acetaminophen 325 Mg Tablet) 650 mg PO Q6H PRN PRN Reason: Headache/Pain Mild Scale (1-3) Last Admin: 07/03/23 06:46 Dose: 650 mg Al Hydroxide/Mg Hydroxide (Magnesium Hydrox/Alum Hydrox 30 Ml Oral.Susp) 30 ml PO Q6H PRN PRN Reason: Heartburn/Nausea Atorvastatin Calcium (Atorvastatin Calcium 40 Mg Tablet) 40 mg PO DAILY [facility] Last Admin: 07/04/23 08:22 Dose: 40 mg Dextrose (Dextrose 50 % 25 Gm/50 Ml Syringe) 25 gm IVPUSH Q15M PRN; Protocol PRN Reason: per Hypoglycemia Standing Ord. Donepezil HCl (Donepezil Hcl 10 Mg Tablet) 10 mg PO BEDTIME [facility] Last Admin: 07/03/23 21:05 Dose: 10 mg Empagliflozin (Empagliflozin 25 Mg Tablet) 25 mg PO DAILY [facility] Last Admin: 07/04/23 08:23 Dose: 25 mg Famotidine (Famotidine 20 Mg Tablet) 20 mg PO DAILY [facility] Last Admin: 07/04/23 08:23 Dose: 20 mg Glucose (Glucose Gel 15 Gm Gel..Gram.) 15 gm PO Q15M PRN; Protocol PRN Reason: per Hypoglycemia Standing Ord. Haloperidol (Haloperidol 1 Mg Tablet) 2 mg PO BEDTIME [facility] Last Admin: 07/03/23 21:05 Dose: 2 mg Ibuprofen (Ibuprofen 600 Mg Tablet) 600 mg PO Q6H PRN PRN Reason: pain not relieved by tylenol Last Admin: 07/02/23 20:39 Dose: 600 mg Insulin Glargine (Insulin Glargine,Hum.Rec.Anlog 100 Unit/Ml 10 Ml Vial) 8 unit SUBCUT DAILY [facility] Last Admin: 07/04/23 08:27 Dose: 8 unit Insulin Human Lispro (Insulin Lispro 100 Unit/Ml 3 Ml Vial) 0 unit SUBCUT QIDACHS [facility]; Protocol Last Admin: 07/04/23 08:22 Dose: Not Given Loperamide HCl (Loperamide Hcl 2 Mg Capsule) 2 mg PO Q6H PRN PRN Reason: Loose Stool Last Admin: 07/01/23 14:44 Dose: 2 mg Magnesium Hydroxide (Milk Of Magnesia 30 Ml Oral.Susp) 30 ml PO DAILY PRN PRN Reason: Constipation Memantine (Memantine Hcl 10 Mg Tablet) 10 mg PO BID [facility] Last Admin: 07/04/23 08:22 Dose: 10 mg Metformin HCl (Metformin Hcl 1,000 Mg Tablet) 1,000 mg PO BID [facility] Last Admin: 07/04/23 08:23 Dose: 1,000 mg Olanzapine (Olanzapine 2.5 Mg Tablet) 2.5 mg PO Q4H PRN PRN Reason: anxiety/agitation Last Admin: 07/02/23 02:37 Dose: 2.5 mg Omeprazole (Omeprazole 20 Mg Capsule.Dr) 20 mg PO DAILY [facility] Last Admin: 07/04/23 08:23 Dose: 20 mg Sertraline HCl (Sertraline Hcl 100 Mg Tablet) 100 mg PO DAILY [facility] Last Admin: 07/04/23 08:23 Dose: 100 mg Trazodone HCl (Trazodone Hcl 50 Mg Tablet) 50 mg PO BEDTIME MRX1 PRN PRN Reason: Insomnia Last Admin: 07/03/23 21:05 Dose: 50 mg Allergies Allergies Allergy/AdvReac Type Severity Reaction Status Date / Time No Known Allergies Allergy Verified 03/23/23 18:13 Assessment & Plan Assessment & Plan (1) Dementia: Status: Acute Code(s): F03.90 - Unspecified dementia, unspecified severity, without behavioral disturbance, psychotic disturbance, mood disturbance, and anxiety Assessment and Plan: 57 years old woman with somewhat rapidly progressing dementia or symptoms of dementia with CSF protein of 88 but otherwise no definite clue about her diagnosis. I discussed the case with neurology service at [facility] and they suggested that the workup has been appropriate and thorough and it was not clear if any further investigations were needed. Also, they did not have beds available for transfer According to their experience, this level of CSF protein could be seen and degenerative disorders but could also be seen in some type of spine pathology, which we have not investigated. In any case, high CSF protein without elevation of cells and without any significant brain lesions on MRI, does not suggest malignancy or vasculitis type of pathology. At this time, after discussing the case with the neurologist in [place], my recommendation is to treat her for degenerative dementia appearing in young age. Some CSF tests are pending which may confirm this notion. PET scan can also help. On the other hand, further CSF analysis and investigations for vasculitis like brain biopsy are not warranted. As far as treatment of dementia is concerned, it is symptomatic. I would start with donepezil 5 mg daily and after a week would add memantine 5 mg twice a day. These are the 2 types of medicines available at this time. Finally, her placement could be an issue as she would not be able to live independently Plan 05/05/23 Pt with gross disorganization b sister give hx of more gradual deterioration neuro note reviewed chart reviewed start aricept some csf results pending consider pet if available ?05/07/2023: No changes to current treatment plan.? Treatment team working on complex disposition which may include instituted living in [place] 05/08 continue tx. 05/09 continue tx. 05/10:? neuro believes Dx more likely dementia at this point, consulted with [facility] who informed him protein of 88 may sometimes be seen in dementia or spinal disorders and that w/u thus far here had been thorough and adequate.? plan to treat as dementia for now.? neuro rec starting donepezil and 1 week later memantine.? donepezil started 5 days ago, memantine scheduled to be started in 3 days.? 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 per review of [facility], their recommended taper for this pt's duration of therapy and daily dose is to reduce by 5 mg/day every 1-2 weeks.? as her time on steroids has been relatively short, we would proceed with the more aggressive taper.? in any event, dosing to be reduced by 5 mg/day as of today. 05/11: all labs results in, positives are for elevated CSF protein/albumin and pattern of CSF protein c/w alzheimer's dementia. continue induction on cholinesterase inhibitor, pednisone taper, work on dispo planning. 05/12: no change in presentation. discharge planning aggressively underway. start memantine tomorrow. currently planning for discharge monday. 05/13: memantine started today. decrease zyprexa at HS from 5 mg to 2.5 mg in attempt to decrease overall sedation. plan to decrease prednisone by 5 mg/day on monday. 05/14: continue current mgmt. decrease prednisone by 5 mg/day as of tomorrow morning. dispo planning underway. 05/15: continue current mgmt. family meeting tomorrow with pt's daughter and HCP, bakari. 05/16: family mtg held. SW looking into rest homes, family to pursue involving extended family for a place for pt to stay. FSBS elevated, prednisone taper ongoing, SSI being used. 05/17: no change in mgmt. met with [facility] to discuss dispo options. rest home is not an option, STR does not appear to be likely to be an option but is being pursued today. awaiting word from daughter on option to DC to brother's home. will need penitentiary care daily for DM mgmt until no longer requiring SSI, however. per report, her insurance does not cover VNA. 05/18: stable presentation. requesting new MoCA and ACLS as pt's cognition seems to have improved slightly since treatment for AD began. 05/19: stable presentation. daughter working on dispo options. ACLS unchanged from prior. T/C transfer to [facility] today. continue prednisone taper monday. 05/20 Less agitated. No med changes today. 05/21: prednisone taper in process, consider transfer to [facility] 05/22/2023 Hospitalist consult regarding hyperglycemia consider stopping olanzapine and changing to antipsychotic if needed lowered tendency to increase blood sugars. Discharge planning AFTER DISCUSSION WITH MARGARITA PEREZ THE PATIENT WAS PLACED LONG-ACTING INSULIN GLARGINE 05/23: FSBS trending down. continue current mgmt. T/C change to typical anti-psychotic. case d/w Dr. Trotter. 05/24: stable. DCed zyprexa and started haldol 2 mg QHS. completed review with insurance company . continue to seek placement [facility]. 05/25: increase HS haldol to 4 mg, otherwise continue current mgmt. stable presentation. 05/26: no change in presentation. continue current mgmt. 05/27: no change in presentation. continue current mgmt. 05/28: no change in presentation. continue current mgmt. 05/29: no change, continue. 05/30: no change, continue. 05/31: FSBS trending better, recently mostly below 200. otherwise no changes. continue current mgmt. 06/01: FSBS trending better, recently mostly below 200. otherwise no changes. continue current mgmt. daughter has not returned any of 's calls for the past week. 06/02: decrease glargine from 10 units daily to 8 units daily as pt's FSBS have started to come under 100. decrease prednisone this monday and the following monday (orders written). pending placement and getting off of insulin. 06/03 keep same treatment. 06/04 keep same treatment 06/05/23 Pt seen cont tx plan 06/06/2023 Consider increase Namenda transfer to [facility] for more supervision and structured care. Discharge planning would benefit from eventual locked assisted living if possible case reviewed extensively with social Work there has been difficulty coordinating with healthcare proxy Plan 1. Continue with Aricept 10 mg p.o. q.h.s., Namenda 10 mg p.o. b.i.d. to target dementia. 2. Increase all of up to 100 mg p.o. daily on June 14. 3. Waiting for placement. 4. Filing for guardianship. Court hearing for next Monday. 5. We will lower Haldol to 2 mg p.o. q.h.s. on June 28. 6. Corticoids discontinued on June 30 07/02/2023: Temporary guardianship granted on 06/30/2023. Otherwise no changes to current plan 07/03/2023 PATIENT SITTING ON THE FLOOR STATING SHE CAN NOT GET UP DIFFICULTY HOLDING HER HEAD UP SHE DID HAVE BEHAVIOR LIKE THIS EARLY ON IN THE HOSPITAL ADMISSION A T FEELS MAY BE A HEAD DROP SYNDROME ASSOCIATED WITH DEMENTIA CHECK LABS UA HOSPITALIST CONSULT IF NO IMPROVEMENT NEURO CONSULT PATIENT SHOULD REMAIN ON ONE-TO-ONE FOR NOW FALL RISK 07/04/2023 Neuro consult remains on one-to-one improved ambulation today unclear etiology for neck weakness a Informed Consent: does not understand Reason for continued inpatient stay Substantial Risk for: inability to function and rapid decompensation Time Spent With Patient Time: Total time managing care of this patient today ____ minutes.
[2023-07-04 11:35] LABS: Glucose, Whole Blood 76 mg/dL (60-115)
[2023-07-04] MEDS: Potassium Chloride ER 20 MEQ TAB.ER.PRT PO ×2 (12:56→19:52)
[2023-07-04] MEDS: Acetaminophen 325 MG TABLET 650 MG PO (16:32)
[2023-07-04 18:00] VITALS: BP 142/64; PULSE 73; RESP 18; TEMP 36.7; O2SAT 92
[2023-07-04] MEDS: Donepezil HCl 10 MG TABLET PO (19:52)
[2023-07-04] MEDS: HaloperidoL 1 MG TABLET 2 MG PO (19:52)
[2023-07-04 20:11] LABS: Glucose, Whole Blood 99 mg/dL (60-115)
[2023-07-04 20:56] LABS: Glucose, Whole Blood 102 mg/dL (60-115)
[2023-07-05 07:54] LABS: Glucose, Whole Blood 80 mg/dL (60-115)
[2023-07-05 08:00] VITALS: BP 141/74; PULSE 79; RESP 16; TEMP 36.9; O2SAT 96
[2023-07-05] MEDS: Empagliflozin 25 MG TABLET PO (08:48)
[2023-07-05] MEDS: Sertraline HCL 100 MG TABLET PO (08:48)
[2023-07-05] MEDS: metFORMIN HCl 1,000 MG TABLET 1000 MG PO (08:48)
[2023-07-05] MEDS: Famotidine 20 MG TABLET PO (08:48)
[2023-07-05] MEDS: Omeprazole 20 MG CAPSULE.DR PO (08:49)
[2023-07-05] MEDS: Atorvastatin Calcium 40 MG TABLET PO (08:49)
[2023-07-05] MEDS: Potassium Chloride ER 20 MEQ TAB.ER.PRT PO ×2 (08:49→20:23)
[2023-07-05] MEDS: Memantine HCl 10 MG TABLET PO ×2 (08:49→20:24)
[2023-07-05 08:59] LABS: Anion Gap 11 (12-20); Blood Urea Nitrogen 12 mg/dL (9-16); Calcium 8.9 mg/dL (8.4-10.2); Carbon Dioxide 29 mmol/L (22-29); Chloride 106 mmol/L (96-108); Creatinine Clr Calc Pharmacy 92.5; Estimated Glomerular Filt Rate > 60; Glucose Random 87 mg/dL (60-115); Potassium 3.4 mmol/L (3.3-5.1); Sodium 143 mmol/L (135-145)
[2023-07-05 09:01] LABS: Magnesium 1.3 mg/dL (1.6-2.6)
[2023-07-05] MEDS: Magnesium Oxide 400 MG TABLET PO ×3 (09:20→18:34)
[2023-07-05 11:52] LABS: Glucose, Whole Blood 126 mg/dL (60-115)
--- NOTE | 2023-07-05 13:08 | MHC.CLN ---
NUTRITION DIET=DIABETIC 1800 KCAL. RECENT PO APPEARS POOR. SUPPLEMENT CHANGED FROM GLUCERNA TID TO ENSURE MAX PROTEIN TID. SUPPLEMENT IS LOWER IN CARBOHYDRATE. PROVIDES 450 KCALS, 90 G PROTEIN. MONITOR WEEKLY FOR INTAKE.
[2023-07-05 14:46] LABS: Anion Gap 16 (12-20); Carbon Dioxide 25 mmol/L (22-29); Chloride 105 mmol/L (96-108); Potassium 3.7 mmol/L (3.3-5.1); Sodium 142 mmol/L (135-145)
[2023-07-05 14:56] LABS: Magnesium 1.2 mg/dL (1.6-2.6)
--- NOTE | 2023-07-05 15:49 | PM.EVENT ---
Event Note Date of Service: 07/05/23 Event Note: Pt with hypomagnesemia 1.3 this morning, K 3.4. Given 800mg mag oxide this am and KCl 20meq PO. On recheck, Mag 1.2, K 3.7. Pt is not having any diarrhea. Will check EKG. Give addl 800mg mag oxide now. Will continue to monitor. Hold metformin as this can cause low magnesium levels. Also stop omeprazole. (Received both doses this am). Time Spent With Patient Time: Total time managing care of this patient today ____ minutes.
--- NOTE | 2023-07-05 15:50 | ECG_ITS ---
Test Reason : HYPOMAGNESEMIA Blood Pressure : / mmHG Vent. Rate : 079 BPM Atrial Rate : 079 BPM P-R Int : 148 ms QRS Dur : 078 ms QT Int : 408 ms P-R-T Axes : 044 -13 023 degrees QTc Int : 467 ms Normal sinus rhythm Normal ECG When compared with ECG of 23-MAR-2023 22:50, No significant change was found Referred By: Roxi Cloud Electronically Signed By:DONOVAN MCKEE
[2023-07-05] MEDS: Magnesium Oxide 400 MG TABLET 800 MG PO ×2 (15:52→21:16)
--- NOTE | 2023-07-05 16:27 | PC.NURSE ---
Patient with critical Magnesium level of 1.3. Dr Trotter was immidiatelly notified. New order from Dr Aldrich for Magnesium Oxide 400mg po. Medication was given. Then a new order from dr Aldrich for Magnesium sulfate through IV which was cancelled by MD and another dose of Magnesium Oxide 400mg po ordered. Magnesium level 1.2. Dr Aldrich and dr Trotter notified. New order from Roxi Cloud to hold Metformin and for another Magnesium Oxide 800mg po and ECG Stat. ECG results sent to Dr Trotter and Roxi Cloud (normal sinus rhythm, normal ECG).
[2023-07-05 16:31] LABS: Glucose, Whole Blood 117 mg/dL (60-115)
--- NOTE | 2023-07-05 19:31 | P.PNPSI_ITS ---
Subjective Subjective Date of Service: 07/05/23 Reason For Visit: hallucinations confusion Interim History: Patient seen psychiatric follow-up has low magnesium consult coordinate with hospitalist service. Patient's mood is anxious somewhat constricted somewhat apathetic. Magnesium levels low 1.3 1.2 Review of Systems low mg Mental Status Exam Mental Status Exam Narrative: Does require lots of prompting around basic activities. Patient Appearance: Fatigued Patient Orientation: Person Level of Consciousness: Awake Patient Behavior: Guarded and Passive Mood Description: Calm and Apprehensive Affect Description: Blunted Patient Cognition Impaired: Yes Ability to Follow Directions: Fair Speech Pattern: Clear Hallucinations: None Delusions: Not Present Thought Process: Distracted and Slowed Thinking Thought Content: positive for Dwarf and positive for Poverty of Content Abnormal Motor Activity Signs and Symptoms: Psychomotor Retardation Judgement: Fair Diagnostics Vital Signs (24Hr): Vital Signs - 24 hr 07/05/23 08:00 Temperature 98.5 F Pulse Rate 79 Respiratory Rate 16 Blood Pressure 141/74 H Pulse Oximetry 96 Oxygen Delivery Method Room Air BMI result Body Mass Index 28.7 Labs 07/03/23 18:16 07/05/23 13:55 Labs: Laboratory Results - last 48 hr 07/03/23 07/04/23 07/04/23 20:12 06:39 07:50 Sodium Potassium Chloride Carbon Dioxide Anion Gap BUN Creatinine Estim Creat Clear Calc Estimated GFR POC Glucose 92 75 Random Glucose Calcium Magnesium Urine Color Yellow Urine Appearance Cloudy Urine pH 5.5 Ur Specific [place] 1.025 Urine Protein Trace Urine Glucose (UA) >=1000 H Urine Ketones 15 Urine Blood Trace H Urine Nitrite Positive H Ur Leukocyte Esterase Moderate (2+) H Urine RBC 0-2 Urine WBC >50 H Urine WBC Clumps Present Ur Squamous Epith Cells 3-5 Urine Bacteria 4+ Hyaline Casts 0-2 07/04/23 07/04/23 07/04/23 11:30 16:18 20:51 Sodium Potassium Chloride Carbon Dioxide Anion Gap BUN Creatinine Estim Creat Clear Calc Estimated GFR POC Glucose 76 99 102 Random Glucose Calcium Magnesium Urine Color Urine Appearance Urine pH Ur Specific [place] Urine Protein Urine Glucose (UA) Urine Ketones Urine Blood Urine Nitrite Ur Leukocyte Esterase Urine RBC Urine WBC Urine WBC Clumps Ur Squamous Epith Cells Urine Bacteria Hyaline Casts 07/05/23 07/05/23 07/05/23 07:50 07:59 11:36 Sodium 143 Potassium 3.4 Chloride 106 Carbon Dioxide 29 Anion Gap 11 L BUN 12 Creatinine 0.62 Estim Creat Clear Calc 92.5 Estimated GFR > 60 POC Glucose 80 126 H Random Glucose 87 Calcium 8.9 Magnesium 1.3 L* Urine Color Urine Appearance Urine pH Ur Specific [place] Urine Protein Urine Glucose (UA) Urine Ketones Urine Blood Urine Nitrite Ur Leukocyte Esterase Urine RBC Urine WBC Urine WBC Clumps Ur Squamous Epith Cells Urine Bacteria Hyaline Casts 07/05/23 07/05/23 13:55 16:25 Sodium 142 Potassium 3.7 Chloride 105 Carbon Dioxide 25 Anion Gap 16 BUN Creatinine Estim Creat Clear Calc Estimated GFR POC Glucose 117 H Random Glucose Calcium Magnesium 1.2 L* Urine Color Urine Appearance Urine pH Ur Specific [place] Urine Protein Urine Glucose (UA) Urine Ketones Urine Blood Urine Nitrite Ur Leukocyte Esterase Urine RBC Urine WBC Urine WBC Clumps Ur Squamous Epith Cells Urine Bacteria Hyaline Casts Imaging Radiology Impressions: ITS Impressions Brain MRI 04/03/23 15:30 IMPRESSION: No acute infarct, mass lesion, intracranial hemorrhage, or evidence of hydrocephalus. Mild nonspecific T2/FLAIR hyperintensity in the cerebral white matter and danny presumably on the basis of chronic microangiopathy. Cervical Spine CT 07/03/23 20:12 IMPRESSION: No acute findings within the cervical spine. The cervical central canal is not well assessed on this CT due to artifact. If weakness persists, a cervical spine MRI would be more sensitive in assessment. Medications Medications Current Medications Acetaminophen (Acetaminophen 325 Mg Tablet) 650 mg PO Q6H PRN PRN Reason: Headache/Pain Mild Scale (1-3) Last Admin: 07/04/23 16:32 Dose: 650 mg Al Hydroxide/Mg Hydroxide (Magnesium Hydrox/Alum Hydrox 30 Ml Oral.Susp) 30 ml PO Q6H PRN PRN Reason: Heartburn/Nausea Atorvastatin Calcium (Atorvastatin Calcium 40 Mg Tablet) 40 mg PO DAILY [facility] Last Admin: 07/05/23 08:49 Dose: 40 mg Dextrose (Dextrose 50 % 25 Gm/50 Ml Syringe) 25 gm IVPUSH Q15M PRN; Protocol PRN Reason: per Hypoglycemia Standing Ord. Donepezil HCl (Donepezil Hcl 10 Mg Tablet) 10 mg PO BEDTIME [facility] Last Admin: 07/04/23 19:52 Dose: 10 mg Empagliflozin (Empagliflozin 25 Mg Tablet) 25 mg PO DAILY [facility] Last Admin: 07/05/23 08:48 Dose: 25 mg Famotidine (Famotidine 20 Mg Tablet) 20 mg PO DAILY [facility] Last Admin: 07/05/23 08:48 Dose: 20 mg Glucose (Glucose Gel 15 Gm Gel..Gram.) 15 gm PO Q15M PRN; Protocol PRN Reason: per Hypoglycemia Standing Ord. Haloperidol (Haloperidol 1 Mg Tablet) 2 mg PO BEDTIME [facility] Last Admin: 07/04/23 19:52 Dose: 2 mg Ibuprofen (Ibuprofen 600 Mg Tablet) 600 mg PO Q6H PRN PRN Reason: pain not relieved by tylenol Last Admin: 07/02/23 20:39 Dose: 600 mg Insulin Glargine (Insulin Glargine,Hum.Rec.Anlog 100 Unit/Ml 10 Ml Vial) 6 unit SUBCUT DAILY [facility] Last Admin: 07/05/23 09:17 Dose: Not Given Insulin Human Lispro (Insulin Lispro 100 Unit/Ml 3 Ml Vial) 0 unit SUBCUT QIDACHS [facility]; Protocol Last Admin: 07/05/23 16:41 Dose: Not Given Loperamide HCl (Loperamide Hcl 2 Mg Capsule) 2 mg PO Q6H PRN PRN Reason: Loose Stool Last Admin: 07/01/23 14:44 Dose: 2 mg Magnesium Hydroxide (Milk Of Magnesia 30 Ml Oral.Susp) 30 ml PO DAILY PRN PRN Reason: Constipation Magnesium Oxide (Magnesium Oxide 400 Mg Tablet) [facility] Last Admin: 07/05/23 18:34 Dose: 400 mg Memantine (Memantine Hcl 10 Mg Tablet) 10 mg PO BID [facility] Last Admin: 07/05/23 08:49 Dose: 10 mg Metformin HCl (Metformin Hcl 1,000 Mg Tablet) 1,000 mg PO BID [facility] Last Admin: 07/05/23 08:48 Dose: 1,000 mg Olanzapine (Olanzapine 2.5 Mg Tablet) 2.5 mg PO Q4H PRN PRN Reason: anxiety/agitation Last Admin: 07/02/23 02:37 Dose: 2.5 mg Potassium Chloride (Potassium Chloride Er 20 Meq Tab.Er.Prt) 20 meq PO BID [facility] Stop: 07/07/23 09:00 Last Admin: 07/05/23 08:49 Dose: 20 meq Sertraline HCl (Sertraline Hcl 100 Mg Tablet) 100 mg PO DAILY [facility] Last Admin: 07/05/23 08:48 Dose: 100 mg Trazodone HCl (Trazodone Hcl 50 Mg Tablet) 50 mg PO BEDTIME MRX1 PRN PRN Reason: Insomnia Last Admin: 07/03/23 21:05 Dose: 50 mg Allergies Allergies Allergy/AdvReac Type Severity Reaction Status Date / Time No Known Allergies Allergy Verified 03/23/23 18:13 Assessment & Plan Assessment & Plan (1) Alzheimer's dementia: Status: Acute Code(s): G30.9 - Alzheimer's disease, unspecified; F02.80 - Dementia in other diseases classified elsewhere, unspecified severity, without behavioral disturbance, psychotic disturbance, mood disturbance, and anxiety Assessment and Plan: 58 years old woman with relative young age onset at Alzheimer dementia but overall clinical picture is affected by significant depression, which continues to be the predominant feature of for clinical picture. Conventional dementia medicines such as donepezil or memantine can be tried but usually do not make significant difference. I would suggest memantine 10 mg twice a day and donepezil 10 mg daily. Recently a new dementia at drug for Alzheimer was approved but only for relatively mild dementia or mild cognitive impairment type of patients. She would not qualify for that drug. My recommendation is to consider electroconvulsive therapy for depression if that was not a consideration before. Plan Patient with low magnesium met result discontinued core needing care with hospitalist team given p.o. magnesium monitor levels neuro consult Reason for continued inpatient stay Substantial Risk for: inability to function, rapid decompensation and med/psych decompensation Time Spent With Patient Time: Total time managing care of this patient today ____ minutes.
[2023-07-05 19:50] VITALS: BP 134/71; PULSE 77; RESP 16; TEMP 36.4; O2SAT 95
[2023-07-05] MEDS: HaloperidoL 1 MG TABLET 2 MG PO (20:23)
[2023-07-05] MEDS: Donepezil HCl 10 MG TABLET PO (20:24)
[2023-07-05 20:48] LABS: Magnesium 1.2 mg/dL (1.6-2.6)
[2023-07-05 20:51] LABS: Glucose, Whole Blood 130 mg/dL (60-115)
--- NOTE | 2023-07-05 20:56 | PC.NURSE ---
Labs called in with critical Magnesium level of 1.2. Dr Trotter notified by texting.
--- NOTE | 2023-07-05 21:08 | PC.NURSE ---
Dr Trotter texted back, EKG normal, will repeat labs in am.
--- NOTE | 2023-07-05 21:28 | PC.NURSE ---
New order from [facility] for additional Magnesium 800mg po one time only. Labs tomorrow morning.
[2023-07-06] MEDS: traZODone HCL 50 MG TABLET PO (00:17)
[2023-07-06] MEDS: Acetaminophen 325 MG TABLET 650 MG PO (00:17)
[2023-07-06] MEDS: OLANZapine 2.5 MG TABLET PO (00:17)
[2023-07-06 06:53] LABS: Glucose, Whole Blood 106 mg/dL (60-115)
[2023-07-06 08:41] LABS: Anion Gap 14 (12-20); Blood Urea Nitrogen 10 mg/dL (9-16); Calcium 8.7 mg/dL (8.4-10.2); Carbon Dioxide 27 mmol/L (22-29); Chloride 104 mmol/L (96-108); Creatinine Clr Calc Pharmacy 98.9; Estimated Glomerular Filt Rate > 60; Glucose Random 92 mg/dL (60-115); Magnesium 1.5 mg/dL (1.6-2.6); Potassium 3.6 mmol/L (3.3-5.1); Sodium 141 mmol/L (135-145)
--- NOTE | 2023-07-06 09:27 | PC.NURSE ---
Dr. Trotter notified of magnesium level of 1.5.
[2023-07-06 10:30] VITALS: BP 143/83; PULSE 85; RESP 18; TEMP 36.4; O2SAT 95
--- NOTE | 2023-07-06 10:33 | PC.NURSE ---
Jessy was awake until 0300 and allowed to sleep through breakfast. Morning POC [address] Trotter notified and instructed to hold 0900 Lantus.
--- NOTE | 2023-07-06 11:00 | PC.NURSE ---
Preliminary urine culture positive for gram negative rods; MD Trotter notified.
[2023-07-06 11:25] LABS: Glucose, Whole Blood 109 mg/dL (60-115)
[2023-07-06] MEDS: Empagliflozin 25 MG TABLET PO (11:31)
[2023-07-06] MEDS: Ibuprofen 600 MG TABLET PO (11:31)
[2023-07-06] MEDS: Famotidine 20 MG TABLET PO (11:31)
[2023-07-06] MEDS: Potassium Chloride ER 20 MEQ TAB.ER.PRT PO ×2 (11:31→20:47)
[2023-07-06] MEDS: Atorvastatin Calcium 40 MG TABLET PO (11:31)
[2023-07-06] MEDS: Sertraline HCL 100 MG TABLET PO (11:32)
[2023-07-06] MEDS: Magnesium Oxide 400 MG TABLET PO ×3 (11:32→17:03)
[2023-07-06] MEDS: Memantine HCl 10 MG TABLET PO ×2 (11:32→20:47)
--- NOTE | 2023-07-06 11:57 | PM.EVENT ---
Event Note Date of Service: 07/06/23 Event Note: Follow-up for patient with hypomagnesesmia. Patient's magnesium improved to 1.5 to day, up from 1.2. Patient's omeprazole and metformin have been held. Will continue Mag ox p.o. 400 mg b.i.d. and will add additional Mag-Ox 400 mg p.o. x1 dose. Given patient is not experiencing diarrhea, metformin use likely non contributory to low magnesium. Will restart metformin. Will recheck Mag in 2-3 days, and if Mag remains low will check urine Mag level and get Nephrology consult. Time Spent With Patient Time: Total time managing care of this patient today ____ minutes.
[2023-07-06 16:37] LABS: Glucose, Whole Blood 113 mg/dL (60-115)
--- NOTE | 2023-07-06 16:59 | HO.PSYCHPN ---
Subjective Subjective Date of Service: 07/06/23 Reason For Visit: hallucinations confusion Subjective Notes: Section 8 Interim History: Patient requires one-to-one difficulty with gait somewhat flat apathetic her difficulty keeping her head held erect magnesium being corrected Medication Compliance: Yes Review of Systems Acute medical concerns: Yes Hypo magnesium Mental Status Exam Mental Status Exam Patient Appearance: Fatigued Diagnostics Vital Signs (24Hr): Vital Signs - 24 hr 07/05/23 19:50 07/06/23 10:30 Temperature 97.6 F 97.5 F Pulse Rate 77 85 Respiratory Rate 16 18 Blood Pressure 134/71 143/83 H Pulse Oximetry 95 95 Oxygen Delivery Method Room Air Room Air BMI result Body Mass Index 28.7 Labs 07/03/23 18:16 07/06/23 08:05 Labs: Laboratory Results - last 48 hr 07/04/23 07/04/23 07/05/23 16:18 20:51 07:50 Sodium Potassium Chloride Carbon Dioxide Anion Gap BUN Creatinine Estim Creat Clear Calc Estimated GFR POC Glucose 99 102 80 Random Glucose Calcium Magnesium 07/05/23 07/05/23 07/05/23 07:59 11:36 13:55 Sodium 143 142 Potassium 3.4 3.7 Chloride 106 105 Carbon Dioxide 29 25 Anion Gap 11 L 16 BUN 12 Creatinine 0.62 Estim Creat Clear Calc 92.5 Estimated GFR > 60 POC Glucose 126 H Random Glucose 87 Calcium 8.9 Magnesium 1.3 L* 1.2 L* 07/05/23 07/05/23 07/05/23 16:25 20:14 20:44 Sodium Potassium Chloride Carbon Dioxide Anion Gap BUN Creatinine Estim Creat Clear Calc Estimated GFR POC Glucose 117 H 130 H Random Glucose Calcium Magnesium 1.2 L* 07/06/23 07/06/23 07/06/23 06:47 08:05 11:21 Sodium 141 Potassium 3.6 Chloride 104 Carbon Dioxide 27 Anion Gap 14 BUN 10 Creatinine 0.58 Estim Creat Clear Calc 98.9 Estimated GFR > 60 POC Glucose 106 109 Random Glucose 92 Calcium 8.7 Magnesium 1.5 L 07/06/23 16:32 Sodium Potassium Chloride Carbon Dioxide Anion Gap BUN Creatinine Estim Creat Clear Calc Estimated GFR POC Glucose 113 Random Glucose Calcium Magnesium Imaging Radiology Impressions: ITS Impressions Brain MRI 04/03/23 15:30 IMPRESSION: No acute infarct, mass lesion, intracranial hemorrhage, or evidence of hydrocephalus. Mild nonspecific T2/FLAIR hyperintensity in the cerebral white matter and danny presumably on the basis of chronic microangiopathy. Cervical Spine CT 07/03/23 20:12 IMPRESSION: No acute findings within the cervical spine. The cervical central canal is not well assessed on this CT due to artifact. If weakness persists, a cervical spine MRI would be more sensitive in assessment. Medications Medications Current Medications Acetaminophen (Acetaminophen 325 Mg Tablet) 650 mg PO Q6H PRN PRN Reason: Headache/Pain Mild Scale (1-3) Last Admin: 07/06/23 00:17 Dose: 650 mg Al Hydroxide/Mg Hydroxide (Magnesium Hydrox/Alum Hydrox 30 Ml Oral.Susp) 30 ml PO Q6H PRN PRN Reason: Heartburn/Nausea Atorvastatin Calcium (Atorvastatin Calcium 40 Mg Tablet) 40 mg PO DAILY [facility] Last Admin: 07/06/23 11:31 Dose: 40 mg Dextrose (Dextrose 50 % 25 Gm/50 Ml Syringe) 25 gm IVPUSH Q15M PRN; Protocol PRN Reason: per Hypoglycemia Standing Ord. Donepezil HCl (Donepezil Hcl 10 Mg Tablet) 10 mg PO BEDTIME [facility] Last Admin: 07/05/23 20:24 Dose: 10 mg Empagliflozin (Empagliflozin 25 Mg Tablet) 25 mg PO DAILY [facility] Last Admin: 07/06/23 11:31 Dose: 25 mg Famotidine (Famotidine 20 Mg Tablet) 20 mg PO DAILY [facility] Last Admin: 07/06/23 11:31 Dose: 20 mg Glucose (Glucose Gel 15 Gm Gel..Gram.) 15 gm PO Q15M PRN; Protocol PRN Reason: per Hypoglycemia Standing Ord. Haloperidol (Haloperidol 1 Mg Tablet) 2 mg PO BEDTIME [facility] Last Admin: 07/05/23 20:23 Dose: 2 mg Ibuprofen (Ibuprofen 600 Mg Tablet) 600 mg PO Q6H PRN PRN Reason: pain not relieved by tylenol Last Admin: 07/06/23 11:31 Dose: 600 mg Insulin Glargine (Insulin Glargine,Hum.Rec.Anlog 100 Unit/Ml 10 Ml Vial) 6 unit SUBCUT DAILY [facility] Last Admin: 07/06/23 10:33 Dose: Not Given Insulin Human Lispro (Insulin Lispro 100 Unit/Ml 3 Ml Vial) 0 unit SUBCUT QIDACHS [facility]; Protocol Last Admin: 07/06/23 16:36 Dose: Not Given Loperamide HCl (Loperamide Hcl 2 Mg Capsule) 2 mg PO Q6H PRN PRN Reason: Loose Stool Last Admin: 07/01/23 14:44 Dose: 2 mg Magnesium Hydroxide (Milk Of Magnesia 30 Ml Oral.Susp) 30 ml PO DAILY PRN PRN Reason: Constipation Magn[facility] Ox[facility] ([facility] Mg [facility]t) [facility] Last Admin: 07/06/23 11:32 Dose: 400 mg Memantine (Memantine Hcl 10 Mg Tablet) 10 mg PO BID [facility] Last Admin: 07/06/23 11:32 Dose: 10 mg Metformin HCl (Metformin Hcl 1,000 Mg Tablet) 1,000 mg PO BID [facility] Last Admin: 07/05/23 08:48 Dose: 1,000 mg Olanzapine (Olanzapine 2.5 Mg Tablet) 2.5 mg PO Q4H PRN PRN Reason: anxiety/agitation Last Admin: 07/06/23 00:17 Dose: 2.5 mg Potassium Chloride (Potassium Chloride Er 20 Meq Tab.Er.Prt) 20 meq PO BID [facility] Stop: 07/07/23 09:00 Last Admin: 07/06/23 11:31 Dose: 20 meq Sertraline HCl (Sertraline Hcl 100 Mg Tablet) 100 mg PO DAILY [facility] Last Admin: 07/06/23 11:32 Dose: 100 mg Trazodone HCl (Trazodone Hcl 50 Mg Tablet) 50 mg PO BEDTIME MRX1 PRN PRN Reason: Insomnia Last Admin: 07/06/23 00:17 Dose: 50 mg Allergies Allergies Allergy/AdvReac Type Severity Reaction Status Date / Time No Known Allergies Allergy Verified 03/23/23 18:13 Assessment & Plan Assessment & Plan (1) Alzheimer's dementia: Status: Acute Code(s): G30.9 - Alzheimer's disease, unspecified; F02.80 - Dementia in other diseases classified elsewhere, unspecified severity, without behavioral disturbance, psychotic disturbance, mood disturbance, and anxiety Assessment and Plan: 58 years old woman with relative young age onset at Alzheimer dementia but overall clinical picture is affected by significant depression, which continues to be the predominant feature of for clinical picture. Conventional dementia medicines such as donepezil or memantine can be tried but usually do not make significant difference. I would suggest memantine 10 mg twice a day and donepezil 10 mg daily. Recently a new dementia at drug for Alzheimer was approved but only for relatively mild dementia or mild cognitive impairment type of patients. She would not qualify for that drug. My recommendation is to consider electroconvulsive therapy for depression if that was not a consideration before. Plan Patient with low magnesium met result discontinued core needing care with hospitalist team given p.o. magnesium monitor levels neuro consult Patient educated on: diagnosis Informed Consent: does not understand Reason for continued inpatient stay Substantial Risk for: inability to function and rapid decompensation Time Spent With Patient Time: Total time managing care of this patient today ____ minutes.
[2023-07-06 17:19] VITALS: BMI 28.4
[2023-07-06 18:00] VITALS: BP 137/72; PULSE 76; RESP 16; TEMP 36.5; O2SAT 96
[2023-07-06 19:57] LABS: Glucose, Whole Blood 172 mg/dL (60-115)
[2023-07-06] MEDS: metFORMIN HCl 1,000 MG TABLET 1000 MG PO (20:47)
[2023-07-06] MEDS: HaloperidoL 1 MG TABLET 2 MG PO (20:47)
[2023-07-06] MEDS: Donepezil HCl 10 MG TABLET PO (20:47)
[2023-07-06] MEDS: Insulin Lispro 100 UNIT/ML 3 ML VIAL SUBCUT (20:49)
[2023-07-07 06:26] LABS: Glucose, Whole Blood 142 mg/dL (60-115)
[2023-07-07 07:49] VITALS: BP 142/85; PULSE 85; RESP 18; TEMP 36.2; O2SAT 98
[2023-07-07] MEDS: Famotidine 20 MG TABLET PO (08:15)
[2023-07-07] MEDS: Memantine HCl 10 MG TABLET PO ×2 (08:16→20:34)
[2023-07-07] MEDS: Empagliflozin 25 MG TABLET PO (08:16)
[2023-07-07] MEDS: metFORMIN HCl 1,000 MG TABLET 1000 MG PO ×2 (08:16→20:34)
[2023-07-07] MEDS: Insulin Glargine,Hum.rec.anlog 100 UNIT/ML 10 ML VIAL 6 UNIT SUBCUT (08:16)
[2023-07-07] MEDS: Atorvastatin Calcium 40 MG TABLET PO (08:16)
[2023-07-07] MEDS: Magnesium Oxide 400 MG TABLET PO ×2 (08:16→16:20)
[2023-07-07] MEDS: Sertraline HCL 100 MG TABLET PO (08:16)
[2023-07-07] MEDS: Potassium Chloride ER 20 MEQ TAB.ER.PRT PO (08:16)
[2023-07-07] MEDS: Ibuprofen 600 MG TABLET PO ×2 (08:17→16:19)
[2023-07-07 11:39] LABS: Glucose, Whole Blood 194 mg/dL (60-115)
[2023-07-07] MEDS: levoFLOXacin 500 MG TABLET PO (11:59)
[2023-07-07] MEDS: Insulin Lispro 100 UNIT/ML 3 ML VIAL SUBCUT (11:59)
[2023-07-07 16:27] LABS: Glucose, Whole Blood 115 mg/dL (60-115)
[2023-07-07 18:00] VITALS: BP 120/72; PULSE 98; RESP 16; TEMP 37; O2SAT 96
[2023-07-07] MEDS: HaloperidoL 1 MG TABLET 2 MG PO (20:34)
[2023-07-07] MEDS: Donepezil HCl 10 MG TABLET PO (20:34)
[2023-07-07 21:18] LABS: Glucose, Whole Blood 150 mg/dL (60-115)
[2023-07-08] MEDS: Acetaminophen 325 MG TABLET 650 MG PO ×2 (04:08→16:04)
[2023-07-08] MEDS: OLANZapine 2.5 MG TABLET PO (04:18)
[2023-07-08 06:18] LABS: Glucose, Whole Blood 136 mg/dL (60-115)
[2023-07-08] MEDS: Insulin Glargine,Hum.rec.anlog 100 UNIT/ML 10 ML VIAL 6 UNIT SUBCUT ×3 (09:24→10:03)
[2023-07-08] MEDS: Empagliflozin 25 MG TABLET PO (10:25)
[2023-07-08] MEDS: Famotidine 20 MG TABLET PO (10:25)
[2023-07-08] MEDS: Atorvastatin Calcium 40 MG TABLET PO (10:25)
[2023-07-08] MEDS: metFORMIN HCl 1,000 MG TABLET 1000 MG PO ×2 (10:26→20:35)
[2023-07-08] MEDS: Sertraline HCL 100 MG TABLET PO (10:27)
[2023-07-08] MEDS: Memantine HCl 10 MG TABLET PO ×2 (10:27→20:35)
[2023-07-08] MEDS: Magnesium Oxide 400 MG TABLET PO ×2 (10:30→17:01)
[2023-07-08 11:23] LABS: Glucose, Whole Blood 118 mg/dL (60-115)
[2023-07-08 11:43] LABS: Anion Gap 14 (12-20); Blood Urea Nitrogen 15 mg/dL (9-16); Carbon Dioxide 24 mmol/L (22-29); Chloride 108 mmol/L (96-108); Estimated Glomerular Filt Rate > 60; Glucose Random 116 mg/dL (60-115); Magnesium 1.6 mg/dL (1.6-2.6); Potassium 4.3 mmol/L (3.3-5.1); Sodium 142 mmol/L (135-145)
--- NOTE | 2023-07-08 12:58 | P.PNPSI_ITS ---
Subjective Subjective Date of Service: 07/08/23 Reason For Visit: hallucinations confusion Subjective Notes: Section 8 Interim History: Patient was seen and discussed in rounds today. Records and plans were reviewed. She continues to be on one-to-one for safety. In neurology consult has been put in. She is declining fairly rapidly. She is being treated for U TI. She is taking medications when encouragement. She has been irritable at times. Review of Systems Review of Systems Yes Unobtainable due to mental status Mental Status Exam Mental Status Exam Narrative: Unable to examine because she was not waking up enough to respond Diagnostics Vital Signs (24Hr): Vital Signs - 24 hr 07/07/23 18:00 Temperature 98.6 F Pulse Rate 98 Respiratory Rate 16 Blood Pressure 120/72 Pulse Oximetry 96 Oxygen Delivery Method Room Air BMI result Body Mass Index 28.4 Labs 07/03/23 18:16 07/08/23 07:54 Labs: Laboratory Results - last 48 hr 07/06/23 07/06/23 07/07/23 16:32 19:48 06:15 Sodium Potassium Chloride Carbon Dioxide Anion Gap BUN Creatinine Estim Creat Clear Calc Estimated GFR POC Glucose 113 172 H 142 H Random Glucose Calcium Magnesium 07/07/23 07/07/23 07/07/23 11:34 16:22 21:11 Sodium Potassium Chloride Carbon Dioxide Anion Gap BUN Creatinine Estim Creat Clear Calc Estimated GFR POC Glucose 194 H 115 150 H Random Glucose Calcium Magnesium 07/08/23 07/08/23 07/08/23 06:10 07:54 11:19 Sodium 142 Potassium 4.3 Chloride 108 Carbon Dioxide 24 Anion Gap 14 BUN 15 Creatinine 0.60 Estim Creat Clear Calc 95.0 Estimated GFR > 60 POC Glucose 136 H 118 H Random Glucose 116 H Calcium 9.0 Magnesium 1.6 Imaging Radiology Impressions: ITS Impressions Brain MRI 04/03/23 15:30 IMPRESSION: No acute infarct, mass lesion, intracranial hemorrhage, or evidence of hydrocephalus. Mild nonspecific T2/FLAIR hyperintensity in the cerebral white matter and danny presumably on the basis of chronic microangiopathy. Cervical Spine CT 07/03/23 20:12 IMPRESSION: No acute findings within the cervical spine. The cervical central canal is not well assessed on this CT due to artifact. If weakness persists, a cervical spine MRI would be more sensitive in assessment. Medications Medications Current Medications Acetaminophen (Acetaminophen 325 Mg Tablet) 650 mg PO Q6H PRN PRN Reason: Headache/Pain Mild Scale (1-3) Last Admin: 07/08/23 04:08 Dose: 650 mg Al Hydroxide/Mg Hydroxide (Magnesium Hydrox/Alum Hydrox 30 Ml Oral.Susp) 30 ml PO Q6H PRN PRN Reason: Heartburn/Nausea Atorvastatin Calcium (Atorvastatin Calcium 40 Mg Tablet) 40 mg PO DAILY [facility] Last Admin: 07/08/23 10:25 Dose: 40 mg Dextrose (Dextrose 50 % 25 Gm/50 Ml Syringe) 25 gm IVPUSH Q15M PRN; Protocol PRN Reason: per Hypoglycemia Standing Ord. Donepezil HCl (Donepezil Hcl 10 Mg Tablet) 10 mg PO BEDTIME [facility] Last Admin: 07/07/23 20:34 Dose: 10 mg Empagliflozin (Empagliflozin 25 Mg Tablet) 25 mg PO DAILY [facility] Last Admin: 07/08/23 10:25 Dose: 25 mg Famotidine (Famotidine 20 Mg Tablet) 20 mg PO DAILY [facility] Last Admin: 07/08/23 10:25 Dose: 20 mg Glucose (Glucose Gel 15 Gm Gel..Gram.) 15 gm PO Q15M PRN; Protocol PRN Reason: per Hypoglycemia Standing Ord. Haloperidol (Haloperidol 1 Mg Tablet) 2 mg PO BEDTIME [facility] Last Admin: 07/07/23 20:34 Dose: 2 mg Ibuprofen (Ibuprofen 600 Mg Tablet) 600 mg PO Q6H PRN PRN Reason: pain not relieved by tylenol Last Admin: 07/07/23 16:19 Dose: 600 mg Insulin Glargine (Insulin Glargine,Hum.Rec.Anlog 100 Unit/Ml 10 Ml Vial) 6 unit SUBCUT DAILY [facility] Last Admin: 07/08/23 10:03 Dose: 6 unit Insulin Human Lispro (Insulin Lispro 100 Unit/Ml 3 Ml Vial) 0 unit SUBCUT QIDACHS [facility]; Protocol Last Admin: 07/08/23 10:04 Dose: Not Given Levofloxacin (Levofloxacin 500 Mg Tablet) 500 mg PO Q24H [facility] Stop: 07/14/23 11:29 Last Admin: 07/07/23 11:59 Dose: 500 mg Loperamide HCl (Loperamide Hcl 2 Mg Capsule) 2 mg PO Q6H PRN PRN Reason: Loose Stool Last Admin: 07/01/23 14:44 Dose: 2 mg Magnesium Hydroxide (Milk Of Magnesia 30 Ml Oral.Susp) 30 ml PO DAILY PRN PRN Reason: Constipation Magnesium Oxide ([facility] 400 Mg [facility]t) [facility] Last Admin: 07/08/23 10:30 Dose: 400 mg Memantine (Memantine Hcl 10 Mg Tablet) 10 mg PO BID [facility] Last Admin: 07/08/23 10:27 Dose: 10 mg Metformin HCl (Metformin Hcl 1,000 Mg Tablet) 1,000 mg PO BID [facility] Last Admin: 07/08/23 10:26 Dose: 1,000 mg Olanzapine (Olanzapine 2.5 Mg Tablet) 2.5 mg PO Q4H PRN PRN Reason: anxiety/agitation Last Admin: 07/08/23 04:18 Dose: 2.5 mg Sertraline HCl (Sertraline Hcl 100 Mg Tablet) 100 mg PO DAILY [facility] Last Admin: 07/08/23 10:27 Dose: 100 mg Trazodone HCl (Trazodone Hcl 50 Mg Tablet) 50 mg PO BEDTIME MRX1 PRN PRN Reason: Insomnia Last Admin: 07/06/23 00:17 Dose: 50 mg Allergies Allergies Allergy/AdvReac Type Severity Reaction Status Date / Time No Known Allergies Allergy Verified 03/23/23 18:13 Assessment & Plan Assessment & Plan (1) Alzheimer's dementia: Status: Acute Code(s): G30.9 - Alzheimer's disease, unspecified; F02.80 - Dementia in other diseases classified elsewhere, unspecified severity, without behavioral disturbance, psychotic disturbance, mood disturbance, and anxiety Assessment and Plan: 58 years old woman with relative young age onset at Alzheimer dementia but overall clinical picture is affected by significant depression, which continues to be the predominant feature of for clinical picture. Conventional dementia m edicines such as donepezil or memantine can be tried but usually do not make significant difference. I would suggest memantine 10 mg twice a day and donepezil 10 mg daily. Recently a new dementia at drug for Alzheimer was approved but only for relatively mild dementia or mild cognitive impairment type of patients. She would not qualify for that drug. My recommendation is to consider electroconvulsive therapy for depression if that was not a consideration before. 07/08: Continue current plans and regimen Plan Patient with low magnesium met result discontinued core needing care with hospitalist team given p.o. magnesium monitor levels neuro consult Reason for continued inpatient stay Substantial Risk for: inability to function Time Spent With Patient Time: Total time managing care of this patient today ____ minutes.
[2023-07-08] MEDS: levoFLOXacin 500 MG TABLET PO (12:59)
[2023-07-08 16:16] LABS: Glucose, Whole Blood 136 mg/dL (60-115)
[2023-07-08 18:00] VITALS: BP 114/56; PULSE 75; RESP 18; TEMP 36.3; O2SAT 93
[2023-07-08] MEDS: Donepezil HCl 10 MG TABLET PO (20:34)
[2023-07-08] MEDS: HaloperidoL 1 MG TABLET 2 MG PO (20:35)
[2023-07-08 21:31] LABS: Glucose, Whole Blood 101 mg/dL (60-115)
[2023-07-08] MEDS: Ibuprofen 600 MG TABLET PO (22:20)
[2023-07-08] MEDS: traZODone HCL 50 MG TABLET PO (23:18)
[2023-07-09 06:47] LABS: Glucose, Whole Blood 111 mg/dL (60-115)
--- NOTE | 2023-07-09 10:55 | P.PNPSI_ITS ---
Subjective Subjective Date of Service: 07/09/23 Reason For Visit: hallucinations confusion Subjective Notes: Section 8 Interim History: Patient was seen and discussed in rounds today. Records and plans were reviewed. She she continues to be very isolative, pretty much in bed all the time with one-to-one observation. She is eating adequately. No complaints or side effects. Continues to be very compromised. No changes were made Review of Systems Review of Systems Yes Unobtainable due to mental status Mental Status Exam Mental Status Exam Narrative: Unable to examine because she was not waking up enough to respond Diagnostics Vital Signs (24Hr): Vital Signs - 24 hr 07/08/23 18:00 Temperature 97.3 F Pulse Rate 75 Respiratory Rate 18 Blood Pressure 114/56 L Pulse Oximetry 93 Oxygen Delivery Method Room Air BMI result Body Mass Index 28.4 Labs 07/03/23 18:16 07/08/23 07:54 Labs: Laboratory Results - last 48 hr 07/07/23 07/07/23 07/07/23 11:34 16:22 21:11 Sodium Potassium Chloride Carbon Dioxide Anion Gap BUN Creatinine Estim Creat Clear Calc Estimated GFR POC Glucose 194 H 115 150 H Random Glucose Calcium Magnesium 07/08/23 07/08/23 07/08/23 06:10 07:54 11:19 Sodium 142 Potassium 4.3 Chloride 108 Carbon Dioxide 24 Anion Gap 14 BUN 15 Creatinine 0.60 Estim Creat Clear Calc 95.0 Estimated GFR > 60 POC Glucose 136 H 118 H Random Glucose 116 H Calcium 9.0 Magnesium 1.6 07/08/23 07/08/23 07/09/23 16:04 21:26 06:31 Sodium Potassium Chloride Carbon Dioxide Anion Gap BUN Creatinine Estim Creat Clear Calc Estimated GFR POC Glucose 136 H 101 111 Random Glucose Calcium Magnesium Imaging Radiology Impressions: ITS Impressions Brain MRI 04/03/23 15:30 IMPRESSION: No acute infarct, mass lesion, intracranial hemorrhage, or evidence of hydrocephalus. Mild nonspecific T2/FLAIR hyperintensity in the cerebral white matter and dnany presumably on the basis of chronic microangiopathy. Cervical Spine CT 07/03/23 20:12 IMPRESSION: No acute findings within the cervical spine. The cervical central canal is not well assessed on this CT due to artifact. If weakness persists, a cervical spine MRI would be more sensitive in assessment. Medications Medications Current Medications Acetaminophen (Acetaminophen 325 Mg Tablet) 650 mg PO Q6H PRN PRN Reason: Headache/Pain Mild Scale (1-3) Last Admin: 07/08/23 16:04 Dose: 650 mg Al Hydroxide/Mg Hydroxide (Magnesium Hydrox/Alum Hydrox 30 Ml Oral.Susp) 30 ml PO Q6H PRN PRN Reason: Heartburn/Nausea Atorvastatin Calcium (Atorvastatin Calcium 40 Mg Tablet) 40 mg PO DAILY [facility] Last Admin: 07/08/23 10:25 Dose: 40 mg Dextrose (Dextrose 50 % 25 Gm/50 Ml Syringe) 25 gm IVPUSH Q15M PRN; Protocol PRN Reason: per Hypoglycemia Standing Ord. Donepezil HCl (Donepezil Hcl 10 Mg Tablet) 10 mg PO BEDTIME [facility] Last Admin: 07/08/23 20:34 Dose: 10 mg Empagliflozin (Empagliflozin 25 Mg Tablet) 25 mg PO DAILY [facility] Last Admin: 07/08/23 10:25 Dose: 25 mg Famotidine (Famotidine 20 Mg Tablet) 20 mg PO DAILY [facility] Last Admin: 07/08/23 10:25 Dose: 20 mg Glucose (Glucose Gel 15 Gm Gel..Gram.) 15 gm PO Q15M PRN; Protocol PRN Reason: per Hypoglycemia Standing Ord. Haloperidol (Haloperidol 1 Mg Tablet) 2 mg PO BEDTIME [facility] Last Admin: 07/08/23 20:35 Dose: 2 mg Ibuprofen (Ibuprofen 600 Mg Tablet) 600 mg PO Q6H PRN PRN Reason: pain not relieved by tylenol Last Admin: 07/08/23 22:20 Dose: 600 mg Insulin Glargine (Insulin Glargine,Hum.Rec.Anlog 100 Unit/Ml 10 Ml Vial) 6 unit SUBCUT DAILY [facility] Last Admin: 07/08/23 10:03 Dose: 6 unit Insulin Human Lispro (Insulin Lispro 100 Unit/Ml 3 Ml Vial) 0 unit SUBCUT QIDACHS [facility]; Protocol Last Admin: 07/09/23 06:33 Dose: Not Given Levofloxacin (Levofloxacin 500 Mg Tablet) 500 mg PO Q24H [facility] Stop: 07/14/23 11:29 Last Admin: 07/08/23 12:59 Dose: 500 mg Loperamide HCl (Loperamide Hcl 2 Mg Capsule) 2 mg PO Q6H PRN PRN Reason: Loose Stool Last Admin: 07/01/23 14:44 Dose: 2 mg Magnesium Hydroxide (Milk Of Magnesia 30 Ml Oral.Susp) 30 ml PO DAILY PRN PRN Reason: Constipation Magnesium Oxide (Magnesium Oxide 400 Mg Tablet) [facility] Last Admin: 07/08/23 17:01 Dose: 400 mg Memantine (Memantine Hcl 10 Mg Tablet) 10 mg PO BID [facility] Last Admin: 07/08/23 20:35 Dose: 10 mg Metformin HCl (Metformin Hcl 1,000 Mg Tablet) 1,000 mg PO BID [facility] Last Admin: 07/08/23 20:35 Dose: 1,000 mg Olanzapine (Olanzapine 2.5 Mg Tablet) 2.5 mg PO Q4H PRN PRN Reason: anxiety/agitation Last Admin: 07/08/23 04:18 Dose: 2.5 mg Sertraline HCl (Sertraline Hcl 100 Mg Tablet) 100 mg PO DAILY [facility] Last Admin: 07/08/23 10:27 Dose: 100 mg Trazodone HCl (Trazodone Hcl 50 Mg Tablet) 50 mg PO BEDTIME MRX1 PRN PRN Reason: Insomnia Last Admin: 07/08/23 23:18 Dose: 50 mg Allergies Allergies Allergy/AdvReac Type Severity Reaction Status Date / Time No Known Allergies Allergy Verified 03/23/23 18:13 Assessment & Plan Assessment & Plan (1) Alzheimer's dementia: Status: Acute Code(s): G30.9 - Alzheimer's disease, unspecified; F02.80 - Dementia in other diseases classified elsewhere, unspecified severity, without behavioral disturbance, psychotic disturbance, mood disturbance, and anxiety Assessment and Plan: 58 years old woman with relative young age onset at Alzheimer dementia but overall clinical picture is affected by significant depression, which continues to be the predominant feature of for clinical picture. Conventional dementia medicines such as donepezil or memantine can be tried but usually do not make significant difference. I would suggest memantine 10 mg twice a day and donepezil 10 mg daily. Recently a new dementia at drug for Alzheimer was approved but only for relatively mild dementia or mild cognitive impairment type of patients. She would not qualify for that drug. My recommendation is to consider electroconvulsive therapy for depression if that was not a consideration before. 07/08: Continue current plans and regimen 07/09: Continue current plans and regimen Plan Patient with low magnesium met result discontinued core needing care with hospitalist team given p.o. magnesium monitor levels neuro consult Reason for continued inpatient stay Substantial Risk for: inability to function Time Spent With Patient Time: Total time managing care of this patient today ____ minutes.
[2023-07-09 11:04] VITALS: BP 126/80; PULSE 78; RESP 16; TEMP 36.2; O2SAT 97
[2023-07-09] MEDS: Insulin Glargine,Hum.rec.anlog 100 UNIT/ML 10 ML VIAL 6 UNIT SUBCUT (11:05)
[2023-07-09] MEDS: Sertraline HCL 100 MG TABLET PO (11:06)
[2023-07-09] MEDS: Empagliflozin 25 MG TABLET PO (11:06)
[2023-07-09] MEDS: Famotidine 20 MG TABLET PO (11:06)
[2023-07-09] MEDS: Magnesium Oxide 400 MG TABLET PO ×2 (11:06→18:59)
[2023-07-09] MEDS: Memantine HCl 10 MG TABLET PO ×2 (11:06→19:43)
[2023-07-09] MEDS: Atorvastatin Calcium 40 MG TABLET PO (11:06)
[2023-07-09] MEDS: metFORMIN HCl 1,000 MG TABLET 1000 MG PO ×2 (11:06→19:43)
[2023-07-09 11:27] LABS: Glucose, Whole Blood 166 mg/dL (60-115)
[2023-07-09] MEDS: Insulin Lispro 100 UNIT/ML 3 ML VIAL SUBCUT ×2 (11:30→20:39)
[2023-07-09] MEDS: levoFLOXacin 500 MG TABLET PO (11:31)
[2023-07-09 16:29] LABS: Glucose, Whole Blood 114 mg/dL (60-115)
[2023-07-09 18:00] VITALS: BP 114/75; PULSE 91; RESP 18; TEMP 37.1; O2SAT 94
[2023-07-09] MEDS: HaloperidoL 1 MG TABLET 2 MG PO (19:43)
[2023-07-09] MEDS: Donepezil HCl 10 MG TABLET PO (19:43)
[2023-07-09] MEDS: Acetaminophen 325 MG TABLET 650 MG PO (19:43)
[2023-07-09 20:37] LABS: Glucose, Whole Blood 158 mg/dL (60-115)
[2023-07-09] MEDS: traZODone HCL 50 MG TABLET PO (22:03)
[2023-07-10 06:00] VITALS: BP 135/78; PULSE 80; TEMP 36.7; O2SAT 97
[2023-07-10 06:30] LABS: Glucose, Whole Blood 254 mg/dL (60-115)
[2023-07-10] MEDS: Insulin Glargine,Hum.rec.anlog 100 UNIT/ML 10 ML VIAL 6 UNIT SUBCUT (08:17)
[2023-07-10] MEDS: Insulin Lispro 100 UNIT/ML 3 ML VIAL SUBCUT ×2 (08:17→16:11)
[2023-07-10] MEDS: Magnesium Oxide 400 MG TABLET PO ×2 (08:18→17:39)
[2023-07-10] MEDS: Empagliflozin 25 MG TABLET PO (08:18)
[2023-07-10] MEDS: Memantine HCl 10 MG TABLET PO ×2 (08:18→20:14)
[2023-07-10] MEDS: metFORMIN HCl 1,000 MG TABLET 1000 MG PO ×2 (08:18→20:14)
[2023-07-10] MEDS: Famotidine 20 MG TABLET PO (08:18)
[2023-07-10] MEDS: Atorvastatin Calcium 40 MG TABLET PO (08:18)
[2023-07-10] MEDS: Sertraline HCL 100 MG TABLET PO (08:18)
--- NOTE | 2023-07-10 09:58 | HO.PSYCHPN ---
Subjective Subjective Date of Service: 07/10/23 Reason For Visit: hallucinations confusion Subjective Notes: Section 8 Interim History: Patient was seen and discussed in rounds today. Records and plans were reviewed. She has been mostly in bed and on one-to-one observation as a fall risk. She has been having daily headaches with good response to Tylenol but the nurses were wondering about the frequency. She continues to be confused. Very little verbal output. No complaints. No changes were made Review of Systems Review of Systems Daily headaches Yes Unobtainable due to mental status Mental Status Exam Mental Status Exam Narrative: Unable to examine because she was not waking up enough to respond Diagnostics Vital Signs (24Hr): Vital Signs - 24 hr 07/09/23 11:04 07/09/23 18:00 Temperature 97.2 F 98.7 F Pulse Rate 78 91 Respiratory Rate 16 18 Blood Pressure 126/80 114/75 Pulse Oximetry 97 94 Oxygen Delivery Method Room Air Room Air BMI result Body Mass Index 28.4 Labs 07/03/23 18:16 07/08/23 07:54 Labs: Laboratory Results - last 48 hr 07/08/23 07/08/23 07/08/23 07:54 11:19 16:04 Sodium 142 Potassium 4.3 Chloride 108 Carbon Dioxide 24 Anion Gap 14 BUN 15 Creatinine 0.60 Estim Creat Clear Calc 95.0 Estimated GFR > 60 POC Glucose 118 H 136 H Random Glucose 116 H Calcium 9.0 Magnesium 1.6 07/08/23 07/09/23 07/09/23 21:26 06:31 11:23 Sodium Potassium Chloride Carbon Dioxide Anion Gap BUN Creatinine Estim Creat Clear Calc Estimated GFR POC Glucose 101 111 166 H Random Glucose Calcium Magnesium 07/09/23 07/09/23 07/10/23 16:23 20:26 06:23 Sodium Potassium Chloride Carbon Dioxide Anion Gap BUN Creatinine Estim Creat Clear Calc Estimated GFR POC Glucose 114 158 H 254 H Random Glucose Calcium Magnesium Imaging Radiology Impressions: ITS Impressions Brain MRI 04/03/23 15:30 IMPRESSION: No acute infarct, mass lesion, intracranial hemorrhage, or evidence of hydrocephalus. Mild nonspecific T2/FLAIR hyperintensity in the cerebral white matter and danny presumably on the basis of chronic microangiopathy. Cervical Spine CT 07/03/23 20:12 IMPRESSION: No acute findings within the cervical spine. The cervical central canal is not well assessed on this CT due to artifact. If weakness persists, a cervical spine MRI would be more sensitive in assessment. Medications Medications Current Medications Acetaminophen (Acetaminophen 325 Mg Tablet) 650 mg PO Q6H PRN PRN Reason: Headache/Pain Mild Scale (1-3) Last Admin: 07/09/23 19:43 Dose: 650 mg Al Hydroxide/Mg Hydroxide (Magnesium Hydrox/Alum Hydrox 30 Ml Oral.Susp) 30 ml PO Q6H PRN PRN Reason: Heartburn/Nausea Atorvastatin Calcium (Atorvastatin Calcium 40 Mg Tablet) 40 mg PO DAILY [facility] Last Admin: 07/10/23 08:18 Dose: 40 mg Dextrose (Dextrose 50 % 25 Gm/50 Ml Syringe) 25 gm IVPUSH Q15M PRN; Protocol PRN Reason: per Hypoglycemia Standing Ord. Donepezil HCl (Donepezil Hcl 10 Mg Tablet) 10 mg PO BEDTIME [facility] Last Admin: 07/09/23 19:43 Dose: 10 mg Empagliflozin (Empagliflozin 25 Mg Tablet) 25 mg PO DAILY [facility] Last Admin: 07/10/23 08:18 Dose: 25 mg Famotidine (Famotidine 20 Mg Tablet) 20 mg PO DAILY [facility] Last Admin: 07/10/23 08:18 Dose: 20 mg Glucose (Glucose Gel 15 Gm Gel..Gram.) 15 gm PO Q15M PRN; Protocol PRN Reason: per Hypoglycemia Standing Ord. Haloperidol (Haloperidol 1 Mg Tablet) 2 mg PO BEDTIME [facility] Last Admin: 07/09/23 19:43 Dose: 2 mg Ibuprofen (Ibuprofen 600 Mg Tablet) 600 mg PO Q6H PRN PRN Reason: pain not relieved by tylenol Last Admin: 07/08/23 22:20 Dose: 600 mg Insulin Glargine (Insulin Glargine,Hum.Rec.Anlog 100 Unit/Ml 10 Ml Vial) 6 unit SUBCUT DAILY [facility] Last Admin: 07/10/23 08:17 Dose: 6 unit Insulin Human Lispro (Insulin Lispro 100 Unit/Ml 3 Ml Vial) 0 unit SUBCUT QIDACHS [facility]; Protocol Last Admin: 07/10/23 08:17 Dose: 6 unit Levofloxacin (Levofloxacin 500 Mg Tablet) 500 mg PO Q24H [facility] Stop: 07/14/23 11:29 Last Admin: 07/09/23 11:31 Dose: 500 mg Loperamide HCl (Loperamide Hcl 2 Mg Capsule) 2 mg PO Q6H PRN PRN Reason: Loose Stool Last Admin: 07/01/23 14:44 Dose: 2 mg Magnesium Hydroxide (Milk Of Magnesia 30 Ml Oral.Susp) 30 ml PO DAILY PRN PRN Reason: Constipation Magnesium Oxide (Magnesium [facility] 400 Mg Tablet) [facility] Last Admin: 07/10/23 08:18 Dose: 400 mg Memantine (Memantine Hcl 10 Mg Tablet) 10 mg PO BID [facility] Last Admin: 07/10/23 08:18 Dose: 10 mg Metformin HCl (Metformin Hcl 1,000 Mg Tablet) 1,000 mg PO BID [facility] Last Admin: 07/10/23 08:18 Dose: 1,000 mg Olanzapine (Olanzapine 2.5 Mg Tablet) 2.5 mg PO Q4H PRN PRN Reason: anxiety/agitation Last Admin: 07/08/23 04:18 Dose: 2.5 mg Sertraline HCl (Sertraline Hcl 100 Mg Tablet) 100 mg PO DAILY [facility] Last Admin: 07/10/23 08:18 Dose: 100 mg Trazodone HCl (Trazodone Hcl 50 Mg Tablet) 50 mg PO BEDTIME MRX1 PRN PRN Reason: Insomnia Last Admin: 07/09/23 22:03 Dose: 50 mg Allergies Allergies Allergy/AdvReac Type Severity Reaction Status Date / Time No Known Allergies Allergy Verified 03/23/23 18:13 Assessment & Plan Assessment & Plan (1) Alzheimer's dementia: Status: Acute Code(s): G30.9 - Alzheimer's disease, unspecified; F02.80 - Dementia in other diseases classified elsewhere, unspecified severity, without behavioral disturbance, psychotic disturbance, mood disturbance, and anxiety Assessment and Plan: 58 years old woman with relative young age onset at Alzheimer dementia but overall clinical picture is affected by significant depression, which continues to be the predominant feature of for clinical picture. Conventional dementia medicines such as donepezil or memantine can be tried but usually do not make significant difference. I would suggest memantine 10 mg twice a day and donepezil 10 mg daily. Recently a new dementia at drug for Alzheimer was approved but only for relatively mild dementia or mild cognitive impairment type of patients. She would not qualify for that drug. My recommendation is to consider electroconvulsive therapy for depression if that was not a consideration before. 07/08: Continue current plans and regimen 07/09: Continue current plans and regimen 07/10: Continue current plans and regimen Plan Patient with low magnesium met result discontinued core needing care with hospitalist team given p.o. magnesium monitor levels neuro consult Reason for continued inpatient stay Substantial Risk for: inability to function Time Spent With Patient Time: Total time managing care of this patient today ____ minutes.
[2023-07-10 11:23] LABS: Glucose, Whole Blood 110 mg/dL (60-115)
[2023-07-10] MEDS: levoFLOXacin 500 MG TABLET PO (11:31)
[2023-07-10] MEDS: Acetaminophen 325 MG TABLET 650 MG PO ×2 (13:18→22:22)
[2023-07-10] MEDS: Ibuprofen 600 MG TABLET PO (14:54)
[2023-07-10 15:57] LABS: Glucose, Whole Blood 154 mg/dL (60-115)
[2023-07-10 18:00] VITALS: BP 129/72; PULSE 81; TEMP 36.8; O2SAT 96
[2023-07-10 19:51] LABS: Glucose, Whole Blood 123 mg/dL (60-115)
[2023-07-10] MEDS: HaloperidoL 1 MG TABLET 2 MG PO (20:14)
[2023-07-10] MEDS: Donepezil HCl 10 MG TABLET PO (20:14)
[2023-07-10] MEDS: traZODone HCL 50 MG TABLET PO (22:19)
[2023-07-11 06:43] LABS: Glucose, Whole Blood 95 mg/dL (60-115)
[2023-07-11 07:45] LABS: Glucose, Whole Blood 110 mg/dL (60-115)
[2023-07-11 08:13] LABS: Anion Gap 10 (12-20); Blood Urea Nitrogen 11 mg/dL (9-16); Calcium 9.1 mg/dL (8.4-10.2); Carbon Dioxide 27 mmol/L (22-29); Chloride 107 mmol/L (96-108); Creatinine Clr Calc Pharmacy 83.8; Estimated Glomerular Filt Rate > 60; Glucose Random 108 mg/dL (60-115); Magnesium 1.8 mg/dL (1.6-2.6); Potassium 3.9 mmol/L (3.3-5.1); Sodium 140 mmol/L (135-145)
[2023-07-11 08:17] VITALS: BP 120/61; PULSE 68; RESP 16; TEMP 36.9; O2SAT 93
[2023-07-11] MEDS: Insulin Glargine,Hum.rec.anlog 100 UNIT/ML 10 ML VIAL 6 UNIT SUBCUT (11:13)
[2023-07-11] MEDS: Magnesium Oxide 400 MG TABLET PO ×2 (11:13→16:49)
[2023-07-11] MEDS: Atorvastatin Calcium 40 MG TABLET PO (11:13)
[2023-07-11] MEDS: Memantine HCl 10 MG TABLET PO ×2 (11:13→20:54)
[2023-07-11] MEDS: Empagliflozin 25 MG TABLET PO (11:13)
[2023-07-11] MEDS: Sertraline HCL 100 MG TABLET PO (11:13)
[2023-07-11] MEDS: metFORMIN HCl 1,000 MG TABLET 1000 MG PO ×2 (11:13→20:53)
[2023-07-11] MEDS: Famotidine 20 MG TABLET PO (11:13)
[2023-07-11] MEDS: Acetaminophen 325 MG TABLET 650 MG PO (11:22)
[2023-07-11 11:35] LABS: Glucose, Whole Blood 121 mg/dL (60-115)
[2023-07-11] MEDS: levoFLOXacin 500 MG TABLET PO (12:46)
--- NOTE | 2023-07-11 14:01 | P.PNPSI_ITS ---
Subjective Subjective Date of Service: 07/11/23 Reason For Visit: hallucinations confusion Subjective Notes: Conditional Voluntary Interim History: The nursing staff reported the patient has been cheerful and interactive with staff. The occupational therapist reported that she has been more engageable a little more in groups. On interview the patient was on her bed, pleasantly confused easily redirectable. Waiting for placement. Mental Status Exam Mental Status Exam Patient Appearance: Well Grooomed and Appropriate Patient Orientation: Person Level of Consciousness: Awake Patient Behavior: Guarded and Passive Mood Description: Withdrawn Affect Description: Calm and Constricted Patient Cognition Impaired: Yes Ability to Follow Directions: Good Speech Pattern: Clear Hallucinations: None Delusions: Not Present Thought Process: Linear Thought Content: positive for Circumstantial Judgement: Poor Diagnostics Vital Signs (24Hr): Vital Signs - 24 hr 07/10/23 18:00 07/11/23 08:17 Temperature 98.3 F 98.4 F Pulse Rate 81 68 Respiratory Rate 16 Blood Pressure 129/72 120/61 Pulse Oximetry 96 93 Oxygen Delivery Method Room Air Room Air BMI result Body Mass Index 28.4 Labs 07/03/23 18:16 07/11/23 07:54 Labs: Laboratory Results - last 48 hr 07/09/23 07/09/23 07/10/23 16:23 20:26 06:23 Sodium Potassium Chloride Carbon Dioxide Anion Gap BUN Creatinine Estim Creat Clear Calc Estimated GFR POC Glucose 114 158 H 254 H Random Glucose Calcium Magnesium 07/10/23 07/10/23 07/10/23 11:10 15:52 19:42 Sodium Potassium Chloride Carbon Dioxide Anion Gap BUN Creatinine Estim Creat Clear Calc Estimated GFR POC Glucose 110 154 H 123 H Random Glucose Calcium Magnesium 07/11/23 07/11/23 07/11/23 06:31 07:41 07:54 Sodium 140 Potassium 3.9 Chloride 107 Carbon Dioxide 27 Anion Gap 10 L BUN 11 Creatinine 0.68 Estim Creat Clear Calc 83.8 Estimated GFR > 60 POC Glucose 95 110 Random Glucose 108 Calcium 9.1 Magnesium 1.8 07/11/23 11:30 Sodium Potassium Chloride Carbon Dioxide Anion Gap BUN Creatinine Estim Creat Clear Calc Estimated GFR POC Glucose 121 H Random Glucose Calcium Magnesium Imaging Radiology Impressions: ITS Impressions Brain MRI 04/03/23 15:30 IMPRESSION: No acute infarct, mass lesion, intracranial hemorrhage, or evidence of hydrocephalus. Mild nonspecific T2/FLAIR hyperintensity in the cerebral white matter and danny presumably on the basis of chronic microangiopathy. Cervical Spine CT 07/03/23 20:12 IMPRESSION: No acute findings within the cervical spine. The cervical central canal is not well assessed on this CT due to artifact. If weakness persists, a cervical spine MRI would be more sensitive in assessment. Medications Medications Current Medications Acetaminophen (Acetaminophen 325 Mg Tablet) 650 mg PO Q6H PRN PRN Reason: Headache/Pain Mild Scale (1-3) Last Admin: 07/11/23 11:22 Dose: 650 mg Al Hydroxide/Mg Hydroxide (Magnesium Hydrox/Alum Hydrox 30 Ml Oral.Susp) 30 ml PO Q6H PRN PRN Reason: Heartburn/Nausea Atorvastatin Calcium (Atorvastatin Calcium 40 Mg Tablet) 40 mg PO DAILY [facility] Last Admin: 07/11/23 11:13 Dose: 40 mg Dextrose (Dextrose 50 % 25 Gm/50 Ml Syringe) 25 gm IVPUSH Q15M PRN; Protocol PRN Reason: per Hypoglycemia Standing Ord. Donepezil HCl (Donepezil Hcl 10 Mg Tablet) 10 mg PO BEDTIME [facility] Last Admin: 07/10/23 20:14 Dose: 10 mg Empagliflozin (Empagliflozin 25 Mg Tablet) 25 mg PO DAILY [facility] Last Admin: 07/11/23 11:13 Dose: 25 mg Famotidine (Famotidine 20 Mg Tablet) 20 mg PO DAILY [facility] Last Admin: 07/11/23 11:13 Dose: 20 mg Glucose (Glucose Gel 15 Gm Gel..Gram.) 15 gm PO Q15M PRN; Protocol PRN Reason: per Hypoglycemia Standing Ord. Haloperidol (Haloperidol 1 Mg Tablet) 2 mg PO BEDTIME [facility] Last Admin: 07/10/23 20:14 Dose: 2 mg Ibuprofen (Ibuprofen 600 Mg Tablet) 600 mg PO Q6H PRN PRN Reason: pain not relieved by tylenol Last Admin: 07/10/23 14:54 Dose: 600 mg Insulin Glargine (Insulin Glargine,Hum.Rec.Anlog 100 Unit/Ml 10 Ml Vial) 6 unit SUBCUT DAILY [facility] Last Admin: 07/11/23 11:13 Dose: 6 unit Insulin Human Lispro (Insulin Lispro 100 Unit/Ml 3 Ml Vial) 0 unit SUBCUT QIDACHS [facility]; Protocol Last Admin: 07/11/23 11:33 Dose: Not Given Levofloxacin (Levofloxacin 500 Mg Tablet) 500 mg PO Q24H [facility] Stop: 07/14/23 11:29 Last Admin: 07/11/23 12:46 Dose: 500 mg Loperamide HCl (Loperamide Hcl 2 Mg Capsule) 2 mg PO Q6H PRN PRN Reason: Loose Stool Last Admin: 07/01/23 14:44 Dose: 2 mg Magnesium Hydroxide (Milk Of Magnesia 30 Ml Oral.Susp) 30 ml PO DAILY PRN PRN Reason: Constipation Magnesium Oxide ([facility] 400 Mg Tablet) [facility] Last Admin: 07/11/23 11:13 Dose: 400 mg Memantine (Memantine Hcl 10 Mg Tablet) 10 mg PO BID [facility] Last Admin: 07/11/23 11:13 Dose: 10 mg Metformin HCl (Metformin Hcl 1,000 Mg Tablet) 1,000 mg PO BID [facility] Last Admin: 07/11/23 11:13 Dose: 1,000 mg Olanzapine (Olanzapine 2.5 Mg Tablet) 2.5 mg PO Q4H PRN PRN Reason: anxiety/agitation Last Admin: 07/08/23 04:18 Dose: 2.5 mg Sertraline HCl (Sertraline Hcl 100 Mg Tablet) 100 mg PO DAILY [facility] Last Admin: 07/11/23 11:13 Dose: 100 mg Trazodone HCl (Trazodone Hcl 50 Mg Tablet) 50 mg PO BEDTIME MRX1 PRN PRN Reason: Insomnia Last Admin: 07/10/23 22:19 Dose: 50 mg Allergies Allergies Allergy/AdvReac Type Severity Reaction Status Date / Time No Known Allergies Allergy Verified 03/23/23 18:13 Assessment & Plan Assessment & Plan (1) Alzheimer's dementia: Status: Acute Code(s): G30.9 - Alzheimer's disease, unspecified; F02.80 - Dementia in other diseases classified elsewhere, unspecified severity, without behavioral disturbance, psychotic disturbance, mood disturbance, and anxiety Assessment and Plan: 58 years old woman with relative young age onset at Alzheimer dementia but overall clinical picture is affected by significant depression, which continues to be the predominant feature of for clinical picture. Conventional dementia medicines such as donepezil or memantine can be tried but usually do not make significant difference. I would suggest memantine 10 mg twice a day and donepezil 10 mg daily. Recently a new dementia at drug for Alzheimer was ap proved but only for relatively mild dementia or mild cognitive impairment type of patients. She would not qualify for that drug. Plan 1. Continue same treatment. 2. Waiting for placement. Plan Patient with low magnesium met result discontinued core needing care with hospitalist team given p.o. magnesium monitor levels neuro consult Reason for continued inpatient stay Substantial Risk for: inability to function, rapid decompensation and med/psych decompensation Time Spent With Patient Time: Total time managing care of this patient today __20__ minutes.
[2023-07-11 16:43] LABS: Glucose, Whole Blood 80 mg/dL (60-115)
[2023-07-11 18:00] VITALS: BP 112/65; PULSE 77; RESP 18; TEMP 36.2; O2SAT 95
[2023-07-11] MEDS: HaloperidoL 1 MG TABLET 2 MG PO (20:53)
[2023-07-11] MEDS: traZODone HCL 50 MG TABLET PO (20:53)
[2023-07-11] MEDS: Donepezil HCl 10 MG TABLET PO (20:53)
[2023-07-11 21:10] LABS: Glucose, Whole Blood 171 mg/dL (60-115)
[2023-07-11] MEDS: Insulin Lispro 100 UNIT/ML 3 ML VIAL SUBCUT (21:20)
[2023-07-12] MEDS: Ibuprofen 600 MG TABLET PO ×2 (00:06→09:50)
[2023-07-12] MEDS: Acetaminophen 325 MG TABLET 650 MG PO ×2 (00:07→11:49)
[2023-07-12] MEDS: traZODone HCL 50 MG TABLET PO (00:08)
[2023-07-12] MEDS: OLANZapine 2.5 MG TABLET PO (00:08)
[2023-07-12 06:30] LABS: Glucose, Whole Blood 105 mg/dL (60-115)
[2023-07-12 09:42] VITALS: BP 141/74; PULSE 86; RESP 16; TEMP 36.6; O2SAT 96
[2023-07-12] MEDS: Empagliflozin 25 MG TABLET PO (09:48)
[2023-07-12] MEDS: metFORMIN HCl 1,000 MG TABLET 1000 MG PO ×2 (09:48→20:19)
[2023-07-12] MEDS: Atorvastatin Calcium 40 MG TABLET PO (09:48)
[2023-07-12] MEDS: Memantine HCl 10 MG TABLET PO ×2 (09:48→20:19)
[2023-07-12] MEDS: Sertraline HCL 100 MG TABLET PO (09:48)
[2023-07-12] MEDS: Magnesium Oxide 400 MG TABLET PO ×2 (09:48→16:55)
[2023-07-12] MEDS: Famotidine 20 MG TABLET PO (09:49)
[2023-07-12] MEDS: Insulin Glargine,Hum.rec.anlog 100 UNIT/ML 10 ML VIAL 6 UNIT SUBCUT (09:52)
--- NOTE | 2023-07-12 11:19 | P.PNPSI_ITS ---
Subjective Subjective Date of Service: 07/12/23 Reason For Visit: hallucinations confusion Subjective Notes: Conditional Voluntary Interim History: The nursing staff reported that she has stating her bed most of the time, she complained of a headache and took Tylenol. She remains on one-to-one for safety. The staff has noticed no changes in her mental status. On interview the patient remains pleasantly confused, waiting for placement. Mental Status Exam Mental Status Exam Patient Appearance: Well Grooomed and Appropriate Patient Orientation: Person and Situation Level of Consciousness: Awake and Appropriate Patient Behavior: Guarded and Passive Mood Description: Withdrawn Affect Description: Constricted Patient Cognition Impaired: Yes Ability to Follow Directions: Good Speech Pattern: Clear Hallucinations: None Delusions: Not Present Thought Process: Distracted and Evasive Thought Content: positive for [place] and positive for Poverty of Content Judgement: Fair Diagnostics Vital Signs (24Hr): Vital Signs - 24 hr 07/11/23 18:00 07/12/23 09:42 Temperature 97.1 F 97.9 F Pulse Rate 77 86 Respiratory Rate 18 16 Blood Pressure 112/65 141/74 H Pulse Oximetry 95 96 Oxygen Delivery Method Room Air Room Air BMI result Body Mass Index 28.4 Labs 07/03/23 18:16 07/11/23 07:54 Labs: Laboratory Results - last 48 hr 07/10/23 07/10/23 07/10/23 11:10 15:52 19:42 Sodium Potassium Chloride Carbon Dioxide Anion Gap BUN Creatinine Estim Creat Clear Calc Estimated GFR POC Glucose 110 154 H 123 H Random Glucose Calcium Magnesium 07/11/23 07/11/23 07/11/23 06:31 07:41 07:54 Sodium 140 Potassium 3.9 Chloride 107 Carbon Dioxide 27 Anion Gap 10 L BUN 11 Creatinine 0.68 Estim Creat Clear Calc 83.8 Estimated GFR > 60 POC Glucose 95 110 Random Glucose 108 Calcium 9.1 Magnesium 1.8 07/11/23 07/11/23 07/11/23 11:30 16:36 21:05 Sodium Potassium Chloride Carbon Dioxide Anion Gap BUN Creatinine Estim Creat Clear Calc Estimated GFR POC Glucose 121 H 80 171 H Random Glucose Calcium Magnesium 07/12/23 06:22 Sodium Potassium Chloride Carbon Dioxide Anion Gap BUN Creatinine Estim Creat Clear Calc Estimated GFR POC Glucose 105 Random Glucose Calcium Magnesium Imaging Radiology Impressions: ITS Impressions Brain MRI 04/03/23 15:30 IMPRESSION: No acute infarct, mass lesion, intracranial hemorrhage, or evidence of hydrocephalus. Mild nonspecific T2/FLAIR hyperintensity in the cerebral white matter and danny presumably on the basis of chronic microangiopathy. Cervical Spine CT 07/03/23 20:12 IMPRESSION: No acute findings within the cervical spine. The cervical central canal is not well assessed on this CT due to artifact. If weakness persists, a cervical spine MRI would be more sensitive in assessment. Medications Medications Current Medications Acetaminophen (Acetaminophen 325 Mg Tablet) 650 mg PO Q6H PRN PRN Reason: Headache/Pain Mild Scale (1-3) Last Admin: 07/12/23 00:07 Dose: 650 mg Al Hydroxide/Mg Hydroxide (Magnesium Hydrox/Alum Hydrox 30 Ml Oral.Susp) 30 ml PO Q6H PRN PRN Reason: Heartburn/Nausea Atorvastatin Calcium (Atorvastatin Calcium 40 Mg Tablet) 40 mg PO DAILY [facility] Last Admin: 07/12/23 09:48 Dose: 40 mg Dextrose (Dextrose 50 % 25 Gm/50 Ml Syringe) 25 gm IVPUSH Q15M PRN; Protocol PRN Reason: per Hypoglycemia Standing Ord. Donepezil HCl (Donepezil Hcl 10 Mg Tablet) 10 mg PO BEDTIME [facility] Last Admin: 07/11/23 20:53 Dose: 10 mg Empagliflozin (Empagliflozin 25 Mg Tablet) 25 mg PO DAILY [facility] Last Admin: 07/12/23 09:48 Dose: 25 mg Famotidine (Famotidine 20 Mg Tablet) 20 mg PO DAILY [facility] Last Admin: 07/12/23 09:49 Dose: 20 mg Glucose (Glucose Gel 15 Gm Gel..Gram.) 15 gm PO Q15M PRN; Protocol PRN Reason: per Hypoglycemia Standing Ord. Haloperidol (Haloperidol 1 Mg Tablet) 2 mg PO BEDTIME [facility] Last Admin: 07/11/23 20:53 Dose: 2 mg Ibuprofen (Ibuprofen 600 Mg Tablet) 600 mg PO Q6H PRN PRN Reason: pain not relieved by tylenol Last Admin: 07/12/23 09:50 Dose: 600 mg Insulin Glargine (Insulin Glargine,Hum.Rec.Anlog 100 Unit/Ml 10 Ml Vial) 6 unit SUBCUT DAILY [facility] Last Admin: 07/12/23 09:52 Dose: 6 unit Insulin Human Lispro (Insulin Lispro 100 Unit/Ml 3 Ml Vial) 0 unit SUBCUT QIDACHS [facility]; Protocol Last Admin: 07/12/23 07:57 Dose: Not Given Levofloxacin (Levofloxacin 500 Mg Tablet) 500 mg PO Q24H [facility] Stop: 07/14/23 11:29 Last Admin: 07/11/23 12:46 Dose: 500 mg Loperamide HCl (Loperamide Hcl 2 Mg Capsule) 2 mg PO Q6H PRN PRN Reason: Loose Stool Last Admin: 07/01/23 14:44 Dose: 2 mg Magnesium Hydroxide (Milk Of Magnesia 30 Ml Oral.Susp) 30 ml PO DAILY PRN PRN Reason: Constipation Magnesium Oxide (Magnesium Oxide 400 Mg Tablet) 400 mg PO BIDPC [facility] Last Admin: 07/12/23 09:48 Dose: 400 mg Memantine (Memantine Hcl 10 Mg Tablet) 10 mg PO BID [facility] Last Admin: 07/12/23 09:48 Dose: 10 mg Metformin HCl (Metformin Hcl 1,000 Mg Tablet) 1,000 mg PO BID [facility] Last Admin: 07/12/23 09:48 Dose: 1,000 mg Olanzapine (Olanzapine 2.5 Mg Tablet) 2.5 mg PO Q4H PRN PRN Reason: anxiety/agitation Last Admin: 07/12/23 00:08 Dose: 2.5 mg Sertraline HCl (Sertraline Hcl 100 Mg Tablet) 100 mg PO DAILY [facility] Last Admin: 07/12/23 09:48 Dose: 100 mg Trazodone HCl (Trazodone Hcl 50 Mg Tablet) 50 mg PO BEDTIME MRX1 PRN PRN Reason: Insomnia Last Admin: 07/12/23 00:08 Dose: 50 mg Allergies Allergies Allergy/AdvReac Type Severity Reaction Status Date / Time No Known Allergies Allergy Verified 03/23/23 18:13 Assessment & Plan Assessment & Plan (1) Alzheimer's dementia: Status: Acute Code(s): G30.9 - Alzheimer's disease, unspecified; F02.80 - Dementia in other diseases classified elsewhere, unspecified severity, without behavioral disturbance, psychotic disturbance, mood disturbance, and anxiety Assessment and Plan: 58 years old woman with relative young age onset at Alzheimer dementia but overall clinical picture is affected by significant depression, which continues to be the predominant feature of for clinical picture. Conventional dementia medicines such as donepezil or memantine can be tried but usually do not make significant difference. I would suggest memantine 10 mg twice a day and d onepezil 10 mg daily. Recently a new dementia at drug for Alzheimer was approved but only for relatively mild dementia or mild cognitive impairment type of patients. She would not qualify for that drug. Plan 1. Continue same treatment. 2. Waiting for placement. Plan Patient with low magnesium met result discontinued core needing care with hosp italist team given p.o. magnesium monitor levels neuro consult Reason for continued inpatient stay Substantial Risk for: inability to function, rapid decompensation and med/psych decompensation Time Spent With Patient Time: Total time managing care of this patient today _20___ minutes.
[2023-07-12 11:30] LABS: Glucose, Whole Blood 273 mg/dL (60-115)
[2023-07-12] MEDS: Insulin Lispro 100 UNIT/ML 3 ML VIAL SUBCUT ×2 (11:49→20:18)
[2023-07-12] MEDS: levoFLOXacin 500 MG TABLET PO (11:49)
[2023-07-12 16:36] LABS: Glucose, Whole Blood 119 mg/dL (60-115)
[2023-07-12 20:00] LABS: Glucose, Whole Blood 151 mg/dL (60-115)
[2023-07-12 20:17] VITALS: BP 103/50; PULSE 84; RESP 18; TEMP 36.6; O2SAT 95
[2023-07-12] MEDS: HaloperidoL 1 MG TABLET 2 MG PO (20:18)
[2023-07-12] MEDS: Donepezil HCl 10 MG TABLET PO (20:19)
[2023-07-13] MEDS: OLANZapine 2.5 MG TABLET PO (00:01)
[2023-07-13] MEDS: traZODone HCL 50 MG TABLET PO ×2 (00:02→20:15)
[2023-07-13 07:00] VITALS: BMI 28.1
[2023-07-13 08:36] LABS: Glucose, Whole Blood 122 mg/dL (60-115)
[2023-07-13 08:48] VITALS: BP 137/66; PULSE 99; RESP 16; TEMP 37.2; O2SAT 95
[2023-07-13] MEDS: Sertraline HCL 100 MG TABLET PO (08:50)
[2023-07-13] MEDS: Magnesium Oxide 400 MG TABLET PO ×2 (08:50→17:35)
[2023-07-13] MEDS: Memantine HCl 10 MG TABLET PO ×2 (08:50→20:15)
[2023-07-13] MEDS: metFORMIN HCl 1,000 MG TABLET 1000 MG PO ×2 (08:51→20:16)
[2023-07-13] MEDS: Famotidine 20 MG TABLET PO (08:51)
[2023-07-13] MEDS: Empagliflozin 25 MG TABLET PO (08:51)
[2023-07-13] MEDS: Atorvastatin Calcium 40 MG TABLET PO (08:51)
[2023-07-13] MEDS: Insulin Glargine,Hum.rec.anlog 100 UNIT/ML 10 ML VIAL 6 UNIT SUBCUT (08:51)
[2023-07-13 11:28] LABS: Glucose, Whole Blood 132 mg/dL (60-115)
[2023-07-13] MEDS: levoFLOXacin 500 MG TABLET PO (11:42)
--- NOTE | 2023-07-13 14:06 | P.PNPSI_ITS ---
Subjective Subjective Date of Service: 07/13/23 Reason For Visit: hallucinations confusion Subjective Notes: Conditional Voluntary Interim History: The nursing staff reported that the patient has been hypoactive, sleeping in the afternoon at times, no changes on her mental status. The nephrology social worker reported no changes, her daughter has not contacted us yet. On interview, the patient is pleasantly confused, waiting for placement. Mental Status Exam Mental Status Exam Patient Appearance: Well Grooomed Patient Orientation: Person and Situation Level of Consciousness: Awake and Appropriate Patient Behavior: Guarded and Passive Mood Description: Withdrawn Affect Description: Constricted Patient Cognition Impaired: Yes Ability to Follow Directions: Good Speech Pattern: Impoverished Hallucinations: None Delusions: Not Present Thought Process: Distracted and Slowed Thinking Thought Content: positive for [place], positive for Poverty of Content and positive for Thought Blocking Judgement: Poor Diagnostics Vital Signs (24Hr): Vital Signs - 24 hr 07/12/23 20:17 07/13/23 08:48 Temperature 97.8 F 98.9 F Pulse Rate 84 99 Respiratory Rate 18 16 Blood Pressure 103/50 L 137/66 Pulse Oximetry 95 95 Oxygen Delivery Method Room Air Room Air BMI result Body Mass Index 28.1 Labs 07/03/23 18:16 07/11/23 07:54 Labs: Laboratory Results - last 48 hr 07/11/23 07/11/23 07/12/23 16:36 21:05 06:22 POC Glucose 80 171 H 105 07/12/23 07/12/23 07/12/23 11:26 16:29 19:48 POC Glucose 273 H 119 H 151 H 07/13/23 07/13/23 08:30 11:18 POC Glucose 122 H 132 H Imaging Radiology Impressions: ITS Impressions Brain MRI 04/03/23 15:30 IMPRESSION: No acute infarct, mass lesion, intracranial hemorrhage, or evidence of hydrocephalus. Mild nonspecific T2/FLAIR hyperintensity in the cerebral white matter and danny presumably on the basis of chronic microangiopathy. Cervical Spine CT 07/03/23 20:12 IMPRESSION: No acute findings within the cervical spine. The cervical central canal is not well assessed on this CT due to artifact. If weakness persists, a cervical spine MRI would be more sensitive in assessment. Medications Medications Current Medications Acetaminophen (Acetaminophen 325 Mg Tablet) 650 mg PO Q6H PRN PRN Reason: Headache/Pain Mild Scale (1-3) Last Admin: 07/12/23 11:49 Dose: 650 mg Al Hydroxide/Mg Hydroxide (Magnesium Hydrox/Alum Hydrox 30 Ml Oral.Susp) 30 ml PO Q6H PRN PRN Reason: Heartburn/Nausea Atorvastatin Calcium (Atorvastatin Calcium 40 Mg Tablet) 40 mg PO DAILY [facility] Last Admin: 07/13/23 08:51 Dose: 40 mg Dextrose (Dextrose 50 % 25 Gm/50 Ml Syringe) 25 gm IVPUSH Q15M PRN; Protocol PRN Reason: per Hypoglycemia Standing Ord. Donepezil HCl (Donepezil Hcl 10 Mg Tablet) 10 mg PO BEDTIME [facility] Last Admin: 07/12/23 20:19 Dose: 10 mg Empagliflozin (Empagliflozin 25 Mg Tablet) 25 mg PO DAILY [facility] Last Admin: 07/13/23 08:51 Dose: 25 mg Famotidine (Famotidine 20 Mg Tablet) 20 mg PO DAILY [facility] Last Admin: 07/13/23 08:51 Dose: 20 mg Glucose (Glucose Gel 15 Gm Gel..Gram.) 15 gm PO Q15M PRN; Protocol PRN Reason: per Hypoglycemia Standing Ord. Haloperidol (Haloperidol 1 Mg Tablet) 2 mg PO BEDTIME [facility] Last Admin: 07/12/23 20:18 Dose: 2 mg Ibuprofen (Ibuprofen 600 Mg Tablet) 600 mg PO Q6H PRN PRN Reason: pain not relieved by tylenol Last Admin: 07/12/23 09:50 Dose: 600 mg Insulin Glargine (Insulin Glargine,Hum.Rec.Anlog 100 Unit/Ml 10 Ml Vial) 6 unit SUBCUT DAILY [facility] Last Admin: 07/13/23 08:51 Dose: 6 unit Insulin Human Lispro (Insulin Lispro 100 Unit/Ml 3 Ml Vial) 0 unit SUBCUT QIDACHS [facility]; Protocol Last Admin: 07/13/23 11:29 Dose: Not Given Levofloxacin (Levofloxacin 500 Mg Tablet) 500 mg PO Q24H [facility] Stop: 07/14/23 11:29 Last Admin: 07/13/23 11:42 Dose: 500 mg Loperamide HCl (Loperamide Hcl 2 Mg Capsule) 2 mg PO Q6H PRN PRN Reason: Loose Stool Last Admin: 07/01/23 14:44 Dose: 2 mg Magnesium Hydroxide (Milk Of Magnesia 30 Ml Oral.Susp) 30 ml PO DAILY PRN PRN Reason: Constipation Magn[facility] Oxide ([facility] 400 Mg [facility] Last Admin: 07/13/23 08:50 Dose: 400 mg Memantine (Memantine Hcl 10 Mg Tablet) 10 mg PO BID [facility] Last Admin: 07/13/23 08:50 Dose: 10 mg Metformin HCl (Metformin Hcl 1,000 Mg Tablet) 1,000 mg PO BID [facility] Last Admin: 07/13/23 08:51 Dose: 1,000 mg Olanzapine (Olanzapine 2.5 Mg Tablet) 2.5 mg PO Q4H PRN PRN Reason: anxiety/agitation Last Admin: 07/13/23 00:01 Dose: 2.5 mg Sertraline HCl (Sertraline Hcl 100 Mg Tablet) 100 mg PO DAILY [facility] Last Admin: 07/13/23 08:50 Dose: 100 mg Trazodone HCl (Trazodone Hcl 50 Mg Tablet) 50 mg PO BEDTIME MRX1 PRN PRN Reason: Insomnia Last Admin: 07/13/23 00:02 Dose: 50 mg Allergies Allergies Allergy/AdvReac Type Severity Reaction Status Date / Time No Known Allergies Allergy Verified 03/23/23 18:13 Assessment & Plan Assessment & Plan (1) Alzheimer's dementia: Status: Acute Code(s): G30.9 - Alzheimer's disease, unspecified; F02.80 - Dementia in other diseases classified elsewhere, unspecified severity, without behavioral disturbance, psychotic disturbance, mood disturbance, and anxiety Assessment and Plan: 58 years old woman with relative young age onset at Alzheimer dementia but overall clinical picture is affected by significant depression, which continues to be the predominant feature of for clinical picture. Conventional dementia medicines such as donepezil or memantine can be tried but usually do not make significant difference. I would suggest memantine 10 mg twice a day and donepezil 10 mg daily. Recently a new dementia at drug for Alzheimer was approved but only for relatively mild dementia or mild cognitive impairment type of patients. She would not qualify for that drug. Plan 1. Continue same treatment. 2. Waiting for placement. Plan Patient with low magnesium met result discontinued core needing care with hospitalist team given p.o. magnesium monitor levels neuro consult Reason for continued inpatient stay Substantial Risk for: inability to function, rapid decompensation and med/psych decompensation Time Spent With Patient Time: Total time managing care of this patient today __20__ minutes.
[2023-07-13 16:40] LABS: Glucose, Whole Blood 135 mg/dL (60-115)
[2023-07-13 18:00] VITALS: BP 147/79; PULSE 104; RESP 18; TEMP 36.8; O2SAT 96
[2023-07-13 20:05] LABS: Glucose, Whole Blood 148 mg/dL (60-115)
[2023-07-13] MEDS: Donepezil HCl 10 MG TABLET PO (20:15)
[2023-07-13] MEDS: Acetaminophen 325 MG TABLET 650 MG PO (20:15)
[2023-07-13] MEDS: HaloperidoL 1 MG TABLET 2 MG PO (20:16)
[2023-07-14 06:38] LABS: Glucose, Whole Blood 117 mg/dL (60-115)
[2023-07-14 07:55] VITALS: BP 116/65; PULSE 81; RESP 18; TEMP 36.1; O2SAT 96
[2023-07-14] MEDS: Sertraline HCL 100 MG TABLET PO (10:33)
[2023-07-14] MEDS: Empagliflozin 25 MG TABLET PO (10:33)
[2023-07-14] MEDS: Memantine HCl 10 MG TABLET PO ×2 (10:33→20:17)
[2023-07-14] MEDS: Atorvastatin Calcium 40 MG TABLET PO (10:33)
[2023-07-14] MEDS: Famotidine 20 MG TABLET PO (10:33)
[2023-07-14] MEDS: metFORMIN HCl 1,000 MG TABLET 1000 MG PO ×2 (10:33→20:16)
[2023-07-14] MEDS: Magnesium Oxide 400 MG TABLET PO ×2 (10:33→17:18)
[2023-07-14] MEDS: Insulin Glargine,Hum.rec.anlog 100 UNIT/ML 10 ML VIAL 6 UNIT SUBCUT (10:34)
--- NOTE | 2023-07-14 11:11 | HO.PSYCHPN ---
Subjective Subjective Date of Service: 07/14/23 Reason For Visit: hallucinations confusion Subjective Notes: Conditional Voluntary Interim History: The nursing staff reported the patient had been more visible in the afternoon. Remains most of the time in her room pleasantly confused easily redirectable. On interview the patient denies new symptoms, where change in her level of observation to close observation. Waiting for placement. Mental Status Exam Mental Status Exam Patient Appearance: Appropriate Patient Orientation: Person and Situation Level of Consciousness: Awake and Appropriate Patient Behavior: Guarded and Passive Mood Description: Withdrawn Affect Description: Constricted Patient Cognition Impaired: Yes Ability to Follow Directions: Good Speech Pattern: Clear Hallucinations: None Delusions: Not Present Thought Process: Distracted, Evasive and Slowed Thinking Thought Content: positive for Poverty of Content Judgement: Poor Diagnostics Vital Signs (24Hr): Vital Signs - 24 hr 07/13/23 18:00 07/14/23 07:55 Temperature 98.2 F 96.9 F Pulse Rate 104 H 81 Respiratory Rate 18 18 Blood Pressure 147/79 H 116/65 Pulse Oximetry 96 96 Oxygen Delivery Method Room Air Room Air BMI result Body Mass Index 28.1 Labs 07/03/23 18:16 07/11/23 07:54 Labs: Laboratory Results - last 48 hr 07/12/23 07/12/23 07/12/23 11:26 16:29 19:48 POC Glucose 273 H 119 H 151 H 07/13/23 07/13/23 07/13/23 08:30 11:18 16:35 POC Glucose 122 H 132 H 135 H 07/13/23 07/14/23 19:33 06:29 POC Glucose 148 H 117 H Imaging Radiology Impressions: ITS Impressions Brain MRI 04/03/23 15:30 IMPRESSION: No acute infarct, mass lesion, intracranial hemorrhage, or evidence of hydrocephalus. Mild nonspecific T2/FLAIR hyperintensity in the cerebral white matter and danny presumably on the basis of chronic microangiopathy. Cervical Spine CT 07/03/23 20:12 IMPRESSION: No acute findings within the cervical spine. The cervical central canal is not well assessed on this CT due to artifact. If weakness persists, a cervical spine MRI would be more sensitive in assessment. Medications Medications Current Medications Acetaminophen (Acetaminophen 325 Mg Tablet) 650 mg PO Q6H PRN PRN Reason: Headache/Pain Mild Scale (1-3) Last Admin: 07/13/23 20:15 Dose: 650 mg Al Hydroxide/Mg Hydroxide (Magnesium Hydrox/Alum Hydrox 30 Ml Oral.Susp) 30 ml PO Q6H PRN PRN Reason: Heartburn/Nausea Atorvastatin Calcium (Atorvastatin Calcium 40 Mg Tablet) 40 mg PO DAILY [facility] Last Admin: 07/14/23 10:33 Dose: 40 mg Dextrose (Dextrose 50 % 25 Gm/50 Ml Syringe) 25 gm IVPUSH Q15M PRN; Protocol PRN Reason: per Hypoglycemia Standing Ord. Donepezil HCl (Donepezil Hcl 10 Mg Tablet) 10 mg PO BEDTIME [facility] Last Admin: 07/13/23 20:15 Dose: 10 mg Empagliflozin (Empagliflozin 25 Mg Tablet) 25 mg PO DAILY [facility] Last Admin: 07/14/23 10:33 Dose: 25 mg Famotidine (Famotidine 20 Mg Tablet) 20 mg PO DAILY [facility] Last Admin: 07/14/23 10:33 Dose: 20 mg Glucose (Glucose Gel 15 Gm Gel..Gram.) 15 gm PO Q15M PRN; Protocol PRN Reason: per Hypoglycemia Standing Ord. Haloperidol (Haloperidol 1 Mg Tablet) 2 mg PO BEDTIME [facility] Last Admin: 07/13/23 20:16 Dose: 2 mg Ibuprofen (Ibuprofen 600 Mg Tablet) 600 mg PO Q6H PRN PRN Reason: pain not relieved by tylenol Last Admin: 07/12/23 09:50 Dose: 600 mg Insulin Glargine (Insulin Glargine,Hum.Rec.Anlog 100 Unit/Ml 10 Ml Vial) 6 unit SUBCUT DAILY [facility] Last Admin: 07/14/23 10:34 Dose: 6 unit Insulin Human Lispro (Insulin Lispro 100 Unit/Ml 3 Ml Vial) 0 unit SUBCUT QIDACHS [facility]; Protocol Last Admin: 07/14/23 07:36 Dose: Not Given Levofloxacin (Levofloxacin 500 Mg Tablet) 500 mg PO Q24H [facility] Stop: 07/14/23 11:29 Last Admin: 07/13/23 11:42 Dose: 500 mg Loperamide HCl (Loperamide Hcl 2 Mg Capsule) 2 mg PO Q6H PRN PRN Reason: Loose Stool Last Admin: 07/01/23 14:44 Dose: 2 mg Magnesium Hydroxide (Milk Of Magnesia 30 Ml Oral.Susp) 30 ml PO DAILY PRN PRN Reason: Constipation Magnesium Oxide (Magnesium Oxide 400 Mg Tablet) 400 mg PO BIDPC [facility] Last Admin: 07/14/23 10:33 Dose: 400 mg Memantine (Memantine Hcl 10 Mg Tablet) 10 mg PO BID [facility] Last Admin: 07/14/23 10:33 Dose: 10 mg Metformin HCl (Metformin Hcl 1,000 Mg Tablet) 1,000 mg PO BID [facility] Last Admin: 07/14/23 10:33 Dose: 1,000 mg Olanzapine (Olanzapine 2.5 Mg Tablet) 2.5 mg PO Q4H PRN PRN Reason: anxiety/agitation Last Admin: 07/13/23 00:01 Dose: 2.5 mg Sertraline HCl (Sertraline Hcl 100 Mg Tablet) 100 mg PO DAILY [facility] Last Admin: 07/14/23 10:33 Dose: 100 mg Trazodone HCl (Trazodone Hcl 50 Mg Tablet) 50 mg PO BEDTIME MRX1 PRN PRN Reason: Insomnia Last Admin: 07/13/23 20:15 Dose: 50 mg Allergies Allergies Allergy/AdvReac Type Severity Reaction Status Date / Time No Known Allergies Allergy Verified 03/23/23 18:13 Assessment & Plan Assessment & Plan (1) Alzheimer's dementia: Status: Acute Code(s): G30.9 - Alzheimer's disease, unspecified; F02.80 - Dementia in other diseases classified elsewhere, unspecified severity, without behavioral disturbance, psychotic disturbance, mood disturbance, and anxiety Assessment and Plan: 58 years old woman with relative young age onset at Alzheimer dementia but overall clinical picture is affected by significant depression, which continues to be the predominant feature of for clinical picture. Conventional dementia medicines such as donepezil or memantine can be tried but usually do not make significant difference. I would suggest memantine 10 mg twice a day and donepezil 10 mg daily. Recently a new dementia at drug for Alzheimer was approved but only for relatively mild dementia or mild cognitive impairment type of patients. She would not qualify for that drug. Plan 1. Continue same treatment. 2. Waiting for placement. Plan Patient with low magnesium met result discontinued core needing care with hospitalist team given p.o. magnesium monitor levels neuro consult Reason for continued inpatient stay Substantial Risk for: inability to function, rapid decompensation and med/psych decompensation Time Spent With Patient Time: Total time managing care of this patient today __20__ minutes.
[2023-07-14 11:17] LABS: Glucose, Whole Blood 190 mg/dL (60-115)
[2023-07-14] MEDS: Insulin Lispro 100 UNIT/ML 3 ML VIAL SUBCUT ×2 (12:06→17:17)
[2023-07-14 16:25] LABS: Glucose, Whole Blood 170 mg/dL (60-115)
[2023-07-14 19:40] VITALS: BP 137/73; PULSE 87; RESP 18; TEMP 36.6; O2SAT 97
[2023-07-14] MEDS: Acetaminophen 325 MG TABLET 650 MG PO (20:16)
[2023-07-14] MEDS: HaloperidoL 1 MG TABLET 2 MG PO (20:17)
[2023-07-14] MEDS: Donepezil HCl 10 MG TABLET PO (20:17)
[2023-07-14 20:32] LABS: Glucose, Whole Blood 104 mg/dL (60-115)
[2023-07-15 06:52] LABS: Glucose, Whole Blood 100 mg/dL (60-115)
[2023-07-15 07:02] LABS: Creatinine Clr Calc Pharmacy 87.2; Estimated Glomerular Filt Rate > 60
[2023-07-15 07:52] VITALS: BP 123/67; PULSE 84; RESP 18; TEMP 36.2; O2SAT 95
[2023-07-15] MEDS: Empagliflozin 25 MG TABLET PO (09:05)
[2023-07-15] MEDS: metFORMIN HCl 1,000 MG TABLET 1000 MG PO ×2 (09:05→20:15)
[2023-07-15] MEDS: Famotidine 20 MG TABLET PO (09:05)
[2023-07-15] MEDS: Sertraline HCL 100 MG TABLET PO (09:05)
[2023-07-15] MEDS: Memantine HCl 10 MG TABLET PO ×2 (09:06→20:15)
[2023-07-15] MEDS: Atorvastatin Calcium 40 MG TABLET PO (09:06)
[2023-07-15] MEDS: Magnesium Oxide 400 MG TABLET PO ×2 (09:06→16:49)
[2023-07-15] MEDS: Insulin Glargine,Hum.rec.anlog 100 UNIT/ML 10 ML VIAL 6 UNIT SUBCUT (09:06)
[2023-07-15] MEDS: Loperamide HCl 2 MG CAPSULE PO (11:14)
[2023-07-15 11:29] LABS: Glucose, Whole Blood 128 mg/dL (60-115)
--- NOTE | 2023-07-15 15:13 | P.PNPSI_ITS ---
Subjective Subjective Date of Service: 07/15/23 Reason For Visit: hallucinations confusion Subjective Notes: Conditional Voluntary Healthcare Proxy: Yes Interim History: met patient. Discussed with Nursing. Overall slept well. Pleasant and brighter. Still needs cuing. With editorial writer reported feeling okay and safe. No psychosis evident. Clear cognitive impairment already established and noted. Medication Compliance: Yes Side effects from medications: No Attending Groups: Intermittent Review of Systems Acute medical concerns: No Review of Systems Review of Systems Unremarkable Mental Status Exam Mental Status Exam Narrative: Does require lots of prompting around basic activities. Patient Appearance: Appropriate Patient Orientation: Person and Situation Patient Behavior: Guarded and Passive Mood Description: Calm Affect Description: Blunted Patient Cognition Impaired: Yes Ability to Follow Directions: Good Speech Pattern: Clear Hallucinations: None Delusions: Not Present Thought Process: Distracted and Slowed Thinking Thought Content: positive for [place] and positive for Poverty of Content Judgement: Fair Diagnostics Vital Signs (24Hr): Vital Signs - 24 hr 07/14/23 19:40 07/15/23 07:52 Temperature 97.8 F 97.2 F Pulse Rate 87 84 Respiratory Rate 18 18 Blood Pressure 137/73 123/67 Pulse Oximetry 97 95 Oxygen Delivery Method Room Air Room Air BMI result Body Mass Index 28.1 Labs 07/03/23 18:16 07/15/23 06:36 Labs: Laboratory Results - last 48 hr 07/13/23 07/13/23 07/14/23 16:35 19:33 06:29 Creatinine Estim Creat Clear Calc Estimated GFR POC Glucose 135 H 148 H 117 H 07/14/23 07/14/23 07/14/23 11:12 16:22 20:12 Creatinine Estim Creat Clear Calc Estimated GFR POC Glucose 190 H 170 H 104 07/15/23 07/15/23 07/15/23 06:36 06:42 11:17 Creatinine 0.65 Estim Creat Clear Calc 87.2 Estimated GFR > 60 POC Glucose 100 128 H Imaging Radiology Impressions: ITS Impressions Brain MRI 04/03/23 15:30 IMPRESSION: No acute infarct, mass lesion, intracranial hemorrhage, or evidence of hydrocephalus. Mild nonspecific T2/FLAIR hyperintensity in the cerebral white matter and danny presumably on the basis of chronic microangiopathy. Cervical Spine CT 07/03/23 20:12 IMPRESSION: No acute findings within the cervical spine. The cervical central canal is not well assessed on this CT due to artifact. If weakness persists, a cervical spine MRI would be more sensitive in assessment. Medications Medications Current Medications Acetaminophen (Acetaminophen 325 Mg Tablet) 650 mg PO Q6H PRN PRN Reason: Headache/Pain Mild Scale (1-3) Last Admin: 07/14/23 20:16 Dose: 650 mg Al Hydroxide/Mg Hydroxide (Magnesium Hydrox/Alum Hydrox 30 Ml Oral.Susp) 30 ml PO Q6H PRN PRN Reason: Heartburn/Nausea Atorvastatin Calcium (Atorvastatin Calcium 40 Mg Tablet) 40 mg PO DAILY [facility] Last Admin: 07/15/23 09:06 Dose: 40 mg Dextrose (Dextrose 50 % 25 Gm/50 Ml Syringe) 25 gm IVPUSH Q15M PRN; Protocol PRN Reason: per Hypoglycemia Standing Ord. Donepezil HCl (Donepezil Hcl 10 Mg Tablet) 10 mg PO BEDTIME [facility] Last Admin: 07/14/23 20:17 Dose: 10 mg Empagliflozin (Empagliflozin 25 Mg Tablet) 25 mg PO DAILY [facility] Last Admin: 07/15/23 09:05 Dose: 25 mg Famotidine (Famotidine 20 Mg Tablet) 20 mg PO DAILY [facility] Last Admin: 07/15/23 09:05 Dose: 20 mg Glucose (Glucose Gel 15 Gm Gel..Gram.) 15 gm PO Q15M PRN; Protocol PRN Reason: per Hypoglycemia Standing Ord. Haloperidol (Haloperidol 1 Mg Tablet) 2 mg PO BEDTIME [facility] Last Admin: 07/14/23 20:17 Dose: 2 mg Ibuprofen (Ibuprofen 600 Mg Tablet) 600 mg PO Q6H PRN PRN Reason: pain not relieved by tylenol Last Admin: 07/12/23 09:50 Dose: 600 mg Insulin Glargine (Insulin Glargine,Hum.Rec.Anlog 100 Unit/Ml 10 Ml Vial) 6 unit SUBCUT DAILY [facility] Last Admin: 07/15/23 09:06 Dose: 6 unit Insulin Human Lispro (Insulin Lispro 100 Unit/Ml 3 Ml Vial) 0 unit SUBCUT QIDACHS [facility]; Protocol Last Admin: 07/15/23 11:32 Dose: Not Given Loperamide HCl (Loperamide Hcl 2 Mg Capsule) 2 mg PO Q6H PRN PRN Reason: Loose Stool Last Admin: 07/15/23 11:14 Dose: 2 mg Magnesium Hydroxide (Milk Of Magnesia 30 Ml Oral.Susp) 30 ml PO DAILY PRN PRN Reason: Constipation [facility] ([facility] Last Admin: 07/15/23 09:06 Dose: 400 mg Memantine (Memantine Hcl 10 Mg Tablet) 10 mg PO BID [facility] Last Admin: 07/15/23 09:06 Dose: 10 mg Metformin HCl (Metformin Hcl 1,000 Mg Tablet) 1,000 mg PO BID [facility] Last Admin: 07/15/23 09:05 Dose: 1,000 mg Olanzapine (Olanzapine 2.5 Mg Tablet) 2.5 mg PO Q4H PRN PRN Reason: anxiety/agitation Last Admin: 07/13/23 00:01 Dose: 2.5 mg Sertraline HCl (Sertraline Hcl 100 Mg Tablet) 100 mg PO DAILY [facility] Last Admin: 07/15/23 09:05 Dose: 100 mg Trazodone HCl (Trazodone Hcl 50 Mg Tablet) 50 mg PO BEDTIME MRX1 PRN PRN Reason: Insomnia Last Admin: 07/13/23 20:15 Dose: 50 mg Allergies Allergies Allergy/AdvReac Type Severity Reaction Status Date / Time No Known Allergies Allergy Verified 03/23/23 18:13 Assessment & Plan Assessment & Plan (1) Alzheimer's dementia: Status: Acute Code(s): G30.9 - Alzheimer's disease, unspecified; F02.80 - Dementia in other diseases classified elsewhere, unspecified severity, without behavioral disturbance, psychotic disturbance, mood disturbance, and anxiety Assessment and Plan: 58 years old woman with relative young age onset at Alzheimer dementia but overall clinical picture is affected by significant depression, which continues to be the predominant feature of for clinical picture. Conventional dementia medicines such as donepezil or memantine can be tried but usually do not make significant difference. I would suggest memantine 10 mg twice a day and donepezil 10 mg daily. Recently a new dementia at drug for Alzheimer was approved but only for relatively mild dementia or mild cognitive impairment type of patients. She would not qualify for that drug. Plan 1. Continue same treatment. 2. Waiting for placement. 07/15/2023: No changes to current plan Plan Patient with low magnesium met result discontinued core needing care with hospitalist team given p.o. magnesium monitor levels neuro consult Reason for continued inpatient stay Substantial Risk for: inability to function Time Spent With Patient Time: Total time managing care of this patient today ____ minutes.
[2023-07-15 16:25] LABS: Glucose, Whole Blood 140 mg/dL (60-115)
[2023-07-15] MEDS: Ibuprofen 600 MG TABLET PO (16:45)
[2023-07-15 18:00] VITALS: BP 125/80; PULSE 76; RESP 16; TEMP 36.4; O2SAT 97
[2023-07-15] MEDS: HaloperidoL 1 MG TABLET 2 MG PO (20:15)
[2023-07-15] MEDS: Donepezil HCl 10 MG TABLET PO (20:15)
[2023-07-15 20:32] LABS: Glucose, Whole Blood 163 mg/dL (60-115)
[2023-07-15] MEDS: Insulin Lispro 100 UNIT/ML 3 ML VIAL SUBCUT (21:00)
[2023-07-16 06:34] LABS: Glucose, Whole Blood 101 mg/dL (60-115)
[2023-07-16 08:05] VITALS: BP 154/82; PULSE 76; RESP 20; TEMP 36.6; O2SAT 98
[2023-07-16] MEDS: Memantine HCl 10 MG TABLET PO ×2 (08:51→20:13)
[2023-07-16] MEDS: Atorvastatin Calcium 40 MG TABLET PO (08:51)
[2023-07-16] MEDS: Famotidine 20 MG TABLET PO (08:51)
[2023-07-16] MEDS: metFORMIN HCl 1,000 MG TABLET 1000 MG PO ×2 (08:51→20:13)
[2023-07-16] MEDS: Insulin Glargine,Hum.rec.anlog 100 UNIT/ML 10 ML VIAL 6 UNIT SUBCUT (08:51)
[2023-07-16] MEDS: Magnesium Oxide 400 MG TABLET PO ×2 (08:51→17:24)
[2023-07-16] MEDS: Empagliflozin 25 MG TABLET PO (08:51)
[2023-07-16] MEDS: Sertraline HCL 100 MG TABLET PO (08:51)
[2023-07-16 11:29] LABS: Glucose, Whole Blood 107 mg/dL (60-115)
[2023-07-16] MEDS: Ibuprofen 600 MG TABLET PO (15:35)
--- NOTE | 2023-07-16 15:38 | HO.PSYCHPN ---
Subjective Subjective Date of Service: 07/16/23 Reason For Visit: hallucinations confusion Interim History: No management issues. Brighter and more engaged. In community. Reported feeling safe and okay. Clear cognitive impairment already established and noted. Medication Compliance: Yes Side effects from medications: No Attending Groups: Intermittent Review of Systems Acute medical concerns: No Review of Systems Review of Systems Unremarkable Mental Status Exam Mental Status Exam Narrative: Does require lots of prompting around basic activities. Patient Appearance: Appropriate Patient Orientation: Person and Situation Level of Consciousness: Awake and Appropriate Patient Behavior: Guarded and Passive Mood Description: Calm Affect Description: Blunted Patient Cognition Impaired: Yes Ability to Follow Directions: Good Speech Pattern: Clear Diagnostics Vital Signs (24Hr): Vital Signs - 24 hr 07/15/23 18:00 07/16/23 08:05 Temperature 97.5 F 97.8 F Pulse Rate 76 76 Respiratory Rate 16 20 Blood Pressure 125/80 154/82 H Pulse Oximetry 97 98 Oxygen Delivery Method Room Air Room Air BMI result Body Mass Index 28.1 Labs 07/03/23 18:16 07/15/23 06:36 Labs: Laboratory Results - last 48 hr 07/14/23 07/14/23 07/15/23 16:22 20:12 06:36 Creatinine 0.65 Estim Creat Clear Calc 87.2 Estimated GFR > 60 POC Glucose 170 H 104 07/15/23 07/15/23 07/15/23 06:42 11:17 16:21 Creatinine Estim Creat Clear Calc Estimated GFR POC Glucose 100 128 H 140 H 07/15/23 07/16/23 07/16/23 20:12 06:20 11:17 Creatinine Estim Creat Clear Calc Estimated GFR POC Glucose 163 H 101 107 Imaging Radiology Impressions: ITS Impressions Brain MRI 04/03/23 15:30 IMPRESSION: No acute infarct, mass lesion, intracranial hemorrhage, or evidence of hydrocephalus. Mild nonspecific T2/FLAIR hyperintensity in the cerebral white matter and danny presumably on the basis of chronic microangiopathy. Cervical Spine CT 07/03/23 20:12 IMPRESSION: No acute findings within the cervical spine. The cervical central canal is not well assessed on this CT due to artifact. If weakness persists, a cervical spine MRI would be more sensitive in assessment. Medications Medications Current Medications Acetaminophen (Acetaminophen 325 Mg Tablet) 650 mg PO Q6H PRN PRN Reason: Headache/Pain Mild Scale (1-3) Last Admin: 07/14/23 20:16 Dose: 650 mg Al Hydroxide/Mg Hydroxide (Magnesium Hydrox/Alum Hydrox 30 Ml Oral.Susp) 30 ml PO Q6H PRN PRN Reason: Heartburn/Nausea Atorvastatin Calcium (Atorvastatin Calcium 40 Mg Tablet) 40 mg PO DAILY [facility] Last Admin: 07/16/23 08:51 Dose: 40 mg Dextrose (Dextrose 50 % 25 Gm/50 Ml Syringe) 25 gm IVPUSH Q15M PRN; Protocol PRN Reason: per Hypoglycemia Standing Ord. Donepezil HCl (Donepezil Hcl 10 Mg Tablet) 10 mg PO BEDTIME [facility] Last Admin: 07/15/23 20:15 Dose: 10 mg Empagliflozin (Empagliflozin 25 Mg Tablet) 25 mg PO DAILY [facility] Last Admin: 07/16/23 08:51 Dose: 25 mg Famotidine (Famotidine 20 Mg Tablet) 20 mg PO DAILY [facility] Last Admin: 07/16/23 08:51 Dose: 20 mg Glucose (Glucose Gel 15 Gm Gel..Gram.) 15 gm PO Q15M PRN; Protocol PRN Reason: per Hypoglycemia Standing Ord. Haloperidol (Haloperidol 1 Mg Tablet) 2 mg PO BEDTIME [facility] Last Admin: 07/15/23 20:15 Dose: 2 mg Ibuprofen (Ibuprofen 600 Mg Tablet) 600 mg PO Q6H PRN PRN Reason: pain not relieved by tylenol Last Admin: 07/16/23 15:35 Dose: 600 mg Insulin Glargine (Insulin Glargine,Hum.Rec.Anlog 100 Unit/Ml 10 Ml Vial) 6 unit SUBCUT DAILY [facility] Last Admin: 07/16/23 08:51 Dose: 6 unit Insulin Human Lispro (Insulin Lispro 100 Unit/Ml 3 Ml Vial) 0 unit SUBCUT QIDACHS [facility]; Protocol Last Admin: 07/16/23 11:19 Dose: Not Given Loperamide HCl (Loperamide Hcl 2 Mg Capsule) 2 mg PO Q6H PRN PRN Reason: Loose Stool Last Admin: 07/15/23 11:14 Dose: 2 mg Magnesium Hydroxide (Milk Of Magnesia 30 Ml Oral.Susp) 30 ml PO DAILY PRN PRN Reason: Constipation Magnesium Oxide (Magnesium Oxide 400 Mg Tablet) 400 mg PO BIDPC [facility] Last Admin: 07/16/23 08:51 Dose: 400 mg Memantine (Memantine Hcl 10 Mg Tablet) 10 mg PO BID [facility] Last Admin: 07/16/23 08:51 Dose: 10 mg Metformin HCl (Metformin Hcl 1,000 Mg Tablet) 1,000 mg PO BID [facility] Last Admin: 07/16/23 08:51 Dose: 1,000 mg Olanzapine (Olanzapine 2.5 Mg Tablet) 2.5 mg PO Q4H PRN PRN Reason: anxiety/agitation Last Admin: 07/13/23 00:01 Dose: 2.5 mg Sertraline HCl (Sertraline Hcl 100 Mg Tablet) 100 mg PO DAILY [facility] Last Admin: 07/16/23 08:51 Dose: 100 mg Trazodone HCl (Trazodone Hcl 50 Mg Tablet) 50 mg PO BEDTIME MRX1 PRN PRN Reason: Insomnia Last Admin: 07/13/23 20:15 Dose: 50 mg Allergies Allergies Allergy/AdvReac Type Severity Reaction Status Date / Time No Known Allergies Allergy Verified 03/23/23 18:13 Assessment & Plan Assessment & Plan (1) Alzheimer's dementia: Status: Acute Code(s): G30.9 - Alzheimer's disease, unspecified; F02.80 - Dementia in other diseases classified elsewhere, unspecified severity, without behavioral disturbance, psychotic disturbance, mood disturbance, and anxiety Assessment and Plan: 58 years old woman with relative young age onset at Alzheimer dementia but overall clinical picture is affected by significant depression, which continues to be the predominant feature of for clinical picture. Conventional dementia medicines such as donepezil or memantine can be tried but usually do not make significant difference. I would suggest memantine 10 mg twice a day and donepezil 10 mg daily. Recently a new dementia at drug for Alzheimer was approved but only for relatively mild dementia or mild cognitive impairment type of patients. She would not qualify for that drug. Plan 1. Continue same treatment. 2. Waiting for placement. 07/16/2023: No changes to current plan Plan Patient with low magnesium met result discontinued core needing care with hospitalist team given p.o. magnesium monitor levels neuro consult Reason for continued inpatient stay Substantial Risk for: inability to function Time Spent With Patient Time: Total time managing care of this patient today ____ minutes.
[2023-07-16 16:33] LABS: Glucose, Whole Blood 115 mg/dL (60-115)
[2023-07-16] MEDS: Acetaminophen 325 MG TABLET 650 MG PO (17:24)
[2023-07-16 18:00] VITALS: BP 137/79; PULSE 76; RESP 18; TEMP 36.9; O2SAT 97
[2023-07-16] MEDS: Donepezil HCl 10 MG TABLET PO (20:13)
[2023-07-16] MEDS: HaloperidoL 1 MG TABLET 2 MG PO (20:13)
[2023-07-16] MEDS: Insulin Lispro 100 UNIT/ML 3 ML VIAL SUBCUT (20:29)
[2023-07-16 21:06] LABS: Glucose, Whole Blood 211 mg/dL (60-115)
[2023-07-17 07:55] VITALS: BP 136/81; PULSE 72; RESP 20; TEMP 36.8; O2SAT 95
[2023-07-17] MEDS: Insulin Glargine,Hum.rec.anlog 100 UNIT/ML 10 ML VIAL 6 UNIT SUBCUT (07:55)
[2023-07-17] MEDS: Famotidine 20 MG TABLET PO (07:56)
[2023-07-17] MEDS: Magnesium Oxide 400 MG TABLET PO ×2 (07:56→16:56)
[2023-07-17] MEDS: metFORMIN HCl 1,000 MG TABLET 1000 MG PO ×2 (07:57→20:06)
[2023-07-17] MEDS: Empagliflozin 25 MG TABLET PO (07:57)
[2023-07-17] MEDS: Sertraline HCL 100 MG TABLET PO (07:57)
[2023-07-17] MEDS: Atorvastatin Calcium 40 MG TABLET PO (07:57)
[2023-07-17] MEDS: Memantine HCl 10 MG TABLET PO ×2 (07:58→20:06)
[2023-07-17 11:12] LABS: Glucose, Whole Blood 95 mg/dL (60-115)
[2023-07-17 11:13] LABS: Glucose, Whole Blood 137 mg/dL (60-115)
--- NOTE | 2023-07-17 15:13 | HO.PSYCHPN ---
Subjective Subjective Date of Service: 07/17/23 Reason For Visit: hallucinations confusion Subjective Notes: Conditional Voluntary Interim History: The nursing staff reported no changes in her mental status, she slept 8 hours she remains hypoactive but easily redirectable. On interview the patient denies new symptoms, waiting for placement. Mental Status Exam Mental Status Exam Patient Appearance: Appropriate Patient Orientation: Person and Situation Level of Consciousness: Awake and Appropriate Patient Behavior: Guarded and Passive Mood Description: Withdrawn Affect Description: Calm Patient Cognition Impaired: Yes Ability to Follow Directions: Good Speech Pattern: Clear Hallucinations: None Delusions: Not Present Thought Process: Distracted and Slowed Thinking Thought Content: positive for [place] and positive for Poverty of Content Judgement: Poor Diagnostics Vital Signs (24Hr): Vital Signs - 24 hr 07/16/23 18:00 07/17/23 07:55 Temperature 98.4 F 98.3 F Pulse Rate 76 72 Respiratory Rate 18 20 Blood Pressure 137/79 136/81 Pulse Oximetry 97 95 Oxygen Delivery Method Room Air Room Air BMI result Body Mass Index 28.1 Labs 07/03/23 18:16 07/15/23 06:36 Labs: Laboratory Results - last 48 hr 07/15/23 07/15/23 07/16/23 16:21 20:12 06:20 POC Glucose 140 H 163 H 101 07/16/23 07/16/23 07/16/23 11:17 16:23 20:19 POC Glucose 107 115 211 H 07/17/23 07/17/23 06:40 11:03 POC Glucose 95 137 H Imaging Radiology Impressions: ITS Impressions Brain MRI 04/03/23 15:30 IMPRESSION: No acute infarct, mass lesion, intracranial hemorrhage, or evidence of hydrocephalus. Mild nonspecific T2/FLAIR hyperintensity in the cerebral white matter and danny presumably on the basis of chronic microangiopathy. Cervical Spine CT 07/03/23 20:12 IMPRESSION: No acute findings within the cervical spine. The cervical central canal is not well assessed on this CT due to artifact. If weakness persists, a cervical spine MRI would be more sensitive in assessment. Medications Medications Current Medications Acetaminophen (Acetaminophen 325 Mg Tablet) 650 mg PO Q6H PRN PRN Reason: Headache/Pain Mild Scale (1-3) Last Admin: 07/16/23 17:24 Dose: 650 mg Al Hydroxide/Mg Hydroxide (Magnesium Hydrox/Alum Hydrox 30 Ml Oral.Susp) 30 ml PO Q6H PRN PRN Reason: Heartburn/Nausea Atorvastatin Calcium (Atorvastatin Calcium 40 Mg Tablet) 40 mg PO DAILY [facility] Last Admin: 07/17/23 07:57 Dose: 40 mg Dextrose (Dextrose 50 % 25 Gm/50 Ml Syringe) 25 gm IVPUSH Q15M PRN; Protocol PRN Reason: per Hypoglycemia Standing Ord. Donepezil HCl (Donepezil Hcl 10 Mg Tablet) 10 mg PO BEDTIME [facility] Last Admin: 07/16/23 20:13 Dose: 10 mg Empagliflozin (Empagliflozin 25 Mg Tablet) 25 mg PO DAILY [facility] Last Admin: 07/17/23 07:57 Dose: 25 mg Famotidine (Famotidine 20 Mg Tablet) 20 mg PO DAILY [facility] Last Admin: 07/17/23 07:56 Dose: 20 mg Glucose (Glucose Gel 15 Gm Gel..Gram.) 15 gm PO Q15M PRN; Protocol PRN Reason: per Hypoglycemia Standing Ord. Haloperidol (Haloperidol 1 Mg Tablet) 2 mg PO BEDTIME [facility] Last Admin: 07/16/23 20:13 Dose: 2 mg Ibuprofen (Ibuprofen 600 Mg Tablet) 600 mg PO Q6H PRN PRN Reason: pain not relieved by tylenol Last Admin: 07/16/23 15:35 Dose: 600 mg Insulin Glargine (Insulin Glargine,Hum.Rec.Anlog 100 Unit/Ml 10 Ml Vial) 6 unit SUBCUT DAILY [facility] Last Admin: 07/17/23 07:55 Dose: 6 unit Insulin Human Lispro (Insulin Lispro 100 Unit/Ml 3 Ml Vial) 0 unit SUBCUT QIDACHS [facility]; Protocol Last Admin: 07/17/23 11:15 Dose: Not Given Loperamide HCl (Loperamide Hcl 2 Mg Capsule) 2 mg PO Q6H PRN PRN Reason: Loose Stool Last Admin: 07/15/23 11:14 Dose: 2 mg Magnesium Hydroxide (Milk Of Magnesia 30 Ml Oral.Susp) 30 ml PO DAILY PRN PRN Reason: Constipation [facility] ([facility] Last Admin: 07/17/23 07:56 Dose: 400 mg Memantine (Memantine Hcl 10 Mg Tablet) 10 mg PO BID [facility] Last Admin: 07/17/23 07:58 Dose: 10 mg Metformin HCl (Metformin Hcl 1,000 Mg Tablet) 1,000 mg PO BID [facility] Last Admin: 07/17/23 07:57 Dose: 1,000 mg Olanzapine (Olanzapine 2.5 Mg Tablet) 2.5 mg PO Q4H PRN PRN Reason: anxiety/agitation Last Admin: 07/13/23 00:01 Dose: 2.5 mg Sertraline HCl (Sertraline Hcl 100 Mg Tablet) 100 mg PO DAILY [facility] Last Admin: 07/17/23 07:57 Dose: 100 mg Trazodone HCl (Trazodone Hcl 50 Mg Tablet) 50 mg PO BEDTIME MRX1 PRN PRN Reason: Insomnia Last Admin: 07/13/23 20:15 Dose: 50 mg Allergies Allergies Allergy/AdvReac Type Severity Reaction Status Date / Time No Known Allergies Allergy Verified 03/23/23 18:13 Assessment & Plan Assessment & Plan (1) Alzheimer's dementia: Status: Acute Code(s): G30.9 - Alzheimer's disease, unspecified; F02.80 - Dementia in other diseases classified elsewhere, unspecified severity, without behavioral disturbance, psychotic disturbance, mood disturbance, and anxiety Assessment and Plan: 58 years old woman with relative young age onset at Alzheimer dementia but overall clinical picture is affected by significant depression, which continues to be the predominant feature of for clinical picture. Conventional dementia medicines such as donepezil or memantine can be tried but usually do not make significant difference. I would suggest memantine 10 mg twice a day and donepezil 10 mg daily. Recently a new dementia at drug for Alzheimer was approved but only for relatively mild dementia or mild cognitive impairment type of patients. She would not qualify for that drug. Plan 1. Continue same treatment. 2. Waiting for placement. Plan Patient with low magnesium met result discontinued core needing care with hospitalist team given p.o. magnesium monitor levels neuro consult Reason for continued inpatient stay Substantial Risk for: inability to function, rapid decompensation and med/psych decompensation Time Spent With Patient Time: Total time managing care of this patient today ___20_ minutes.
[2023-07-17] MEDS: Acetaminophen 325 MG TABLET 650 MG PO (15:57)
[2023-07-17] MEDS: Ibuprofen 600 MG TABLET PO (15:58)
[2023-07-17 16:32] LABS: Glucose, Whole Blood 138 mg/dL (60-115)
[2023-07-17 18:00] VITALS: BP 142/72; PULSE 78; RESP 18; TEMP 36.6; O2SAT 98
[2023-07-17] MEDS: Insulin Lispro 100 UNIT/ML 3 ML VIAL SUBCUT (20:06)
[2023-07-17] MEDS: Donepezil HCl 10 MG TABLET PO (20:06)
[2023-07-17] MEDS: HaloperidoL 1 MG TABLET 2 MG PO (20:06)
[2023-07-18 00:12] LABS: Glucose, Whole Blood 216 mg/dL (60-115)
[2023-07-18 06:34] LABS: Glucose, Whole Blood 91 mg/dL (60-115)
[2023-07-18 08:00] VITALS: BP 149/72; PULSE 69; RESP 16; TEMP 36.3; O2SAT 96
[2023-07-18] MEDS: Insulin Glargine,Hum.rec.anlog 100 UNIT/ML 10 ML VIAL 6 UNIT SUBCUT (08:34)
[2023-07-18] MEDS: Empagliflozin 25 MG TABLET PO (08:35)
[2023-07-18] MEDS: Memantine HCl 10 MG TABLET PO ×2 (08:35→19:48)
[2023-07-18] MEDS: Famotidine 20 MG TABLET PO (08:35)
[2023-07-18] MEDS: Atorvastatin Calcium 40 MG TABLET PO (08:35)
[2023-07-18] MEDS: Sertraline HCL 100 MG TABLET PO (08:35)
[2023-07-18] MEDS: Magnesium Oxide 400 MG TABLET PO ×2 (08:35→18:44)
[2023-07-18] MEDS: metFORMIN HCl 1,000 MG TABLET 1000 MG PO ×2 (08:35→19:49)
[2023-07-18] MEDS: Acetaminophen 325 MG TABLET 650 MG PO (10:07)
[2023-07-18 11:27] LABS: Glucose, Whole Blood 196 mg/dL (60-115)
[2023-07-18] MEDS: Insulin Lispro 100 UNIT/ML 3 ML VIAL SUBCUT (11:28)
--- NOTE | 2023-07-18 11:44 | P.PNPSI_ITS ---
Subjective Subjective Date of Service: 07/18/23 Reason For Visit: hallucinations confusion Subjective Notes: Conditional Voluntary Interim History: The nursing staff reported no changes in her mental status. Neurology has faxed his previous consultation to put it in the chart. On interview the patient pleasantly confused, waiting for placement. Mental Status Exam Mental Status Exam Patient Appearance: Appropriate Patient Orientation: Person Level of Consciousness: Awake Patient Behavior: Guarded and Passive Mood Description: Withdrawn Affect Description: Blunted Patient Cognition Impaired: Yes Ability to Follow Directions: Good Speech Pattern: Clear Hallucinations: None Delusions: Not Present Thought Process: Distracted Thought Content: positive for Poverty of Content Judgement: Poor Diagnostics Vital Signs (24Hr): Vital Signs - 24 hr 07/17/23 18:00 07/18/23 08:00 Temperature 97.8 F 97.3 F Pulse Rate 78 69 Respiratory Rate 18 16 Blood Pressure 142/72 H 149/72 H Pulse Oximetry 98 96 Oxygen Delivery Method Room Air Room Air BMI result Body Mass Index 28.1 Labs 07/03/23 18:16 07/15/23 06:36 Labs: Laboratory Results - last 48 hr 07/16/23 07/16/23 07/17/23 16:23 20:19 06:40 POC Glucose 115 211 H 95 07/17/23 07/17/23 07/17/23 11:03 16:12 19:28 POC Glucose 137 H 138 H 216 H 07/18/23 07/18/23 06:29 11:20 POC Glucose 91 196 H Imaging Radiology Impressions: ITS Impressions Brain MRI 04/03/23 15:30 IMPRESSION: No acute infarct, mass lesion, intracranial hemorrhage, or evidence of hydrocephalus. Mild nonspecific T2/FLAIR hyperintensity in the cerebral white matter and danny presumably on the basis of chronic microangiopathy. Cervical Spine CT 07/03/23 20:12 IMPRESSION: No acute findings within the cervical spine. The cervical central canal is not well assessed on this CT due to artifact. If weakness persists, a cervical spine MRI would be more sensitive in assessment. Medications Medications Current Medications Acetaminophen (Acetaminophen 325 Mg Tablet) 650 mg PO Q6H PRN PRN Reason: Headache/Pain Mild Scale (1-3) Last Admin: 07/18/23 10:07 Dose: 650 mg Al Hydroxide/Mg Hydroxide (Magnesium Hydrox/Alum Hydrox 30 Ml Oral.Susp) 30 ml PO Q6H PRN PRN Reason: Heartburn/Nausea Atorvastatin Calcium (Atorvastatin Calcium 40 Mg Tablet) 40 mg PO DAILY [facility] Last Admin: 07/18/23 08:35 Dose: 40 mg Dextrose (Dextrose 50 % 25 Gm/50 Ml Syringe) 25 gm IVPUSH Q15M PRN; Protocol PRN Reason: per Hypoglycemia Standing Ord. Donepezil HCl (Donepezil Hcl 10 Mg Tablet) 10 mg PO BEDTIME [facility] Last Admin: 07/17/23 20:06 Dose: 10 mg Empagliflozin (Empagliflozin 25 Mg Tablet) 25 mg PO DAILY [facility] Last Admin: 07/18/23 08:35 Dose: 25 mg Famotidine (Famotidine 20 Mg Tablet) 20 mg PO DAILY [facility] Last Admin: 07/18/23 08:35 Dose: 20 mg Glucose (Glucose Gel 15 Gm Gel..Gram.) 15 gm PO Q15M PRN; Protocol PRN Reason: per Hypoglycemia Standing Ord. Haloperidol (Haloperidol 1 Mg Tablet) 2 mg PO BEDTIME [facility] Last Admin: 07/17/23 20:06 Dose: 2 mg Ibuprofen (Ibuprofen 600 Mg Tablet) 600 mg PO Q6H PRN PRN Reason: pain not relieved by tylenol Last Admin: 07/17/23 15:58 Dose: 600 mg Insulin Glargine (Insulin Glargine,Hum.Rec.Anlog 100 Unit/Ml 10 Ml Vial) 6 unit SUBCUT DAILY [facility] Last Admin: 07/18/23 08:34 Dose: 6 unit Insulin Human Lispro (Insulin Lispro 100 Unit/Ml 3 Ml Vial) 0 unit SUBCUT QIDACHS [facility]; Protocol Last Admin: 07/18/23 11:28 Dose: 2 unit Loperamide HCl (Loperamide Hcl 2 Mg Capsule) 2 mg PO Q6H PRN PRN Reason: Loose Stool Last Admin: 07/15/23 11:14 Dose: 2 mg Magnesium Hydroxide (Milk Of Magnesia 30 Ml Oral.Susp) 30 ml PO DAILY PRN PRN Reason: Constipation [facility] ([facility] 400 Mg Tablet) [facility] Last Admin: 07/18/23 08:35 Dose: 400 mg Memantine (Memantine Hcl 10 Mg Tablet) 10 mg PO BID [facility] Last Admin: 07/18/23 08:35 Dose: 10 mg Metformin HCl (Metformin Hcl 1,000 Mg Tablet) 1,000 mg PO BID [facility] Last Admin: 07/18/23 08:35 Dose: 1,000 mg Olanzapine (Olanzapine 2.5 Mg Tablet) 2.5 mg PO Q4H PRN PRN Reason: anxiety/agitation Last Admin: 07/13/23 00:01 Dose: 2.5 mg Sertraline HCl (Sertraline Hcl 100 Mg Tablet) 100 mg PO DAILY [facility] Last Admin: 07/18/23 08:35 Dose: 100 mg Trazodone HCl (Trazodone Hcl 50 Mg Tablet) 50 mg PO BEDTIME MRX1 PRN PRN Reason: Insomnia Last Admin: 07/13/23 20:15 Dose: 50 mg Allergies Allergies Allergy/AdvReac Type Severity Reaction Status Date / Time No Known Allergies Allergy Verified 03/23/23 18:13 Assessment & Plan Assessment & Plan (1) Alzheimer's dementia: Status: Acute Code(s): G30.9 - Alzheimer's disease, unspecified; F02.80 - Dementia in other diseases classified elsewhere, unspecified severity, without behavioral disturbance, psychotic disturbance, mood disturbance, and anxiety Assessment and Plan: 58 years old woman with relative young age onset at Alzheimer dementia but overall clinical picture is affected by significant depression, which continues to be the predominant feature of for clinical picture. Conventional dementia medicines such as donepezil or memantine can be tried but usually do not make significant difference. I would suggest memantine 10 mg twice a day and donepezil 10 mg daily. Recently a new dementia at drug for Alzheimer was approved but only for relatively mild dementia or mild cognitive impairment type of patients. She would not qualify for that drug. Plan 1. Continue same treatment. 2. Waiting for placement. Plan Patient with low magnesium met result discontinued core needing care with hospitalist team given p.o. magnesium monitor levels neuro consult Reason for continued inpatient stay Substantial Risk for: inability to function, rapid decompensation and med/psych decompensation Time Spent With Patient Time: Total time managing care of this patient today _20___ minutes.
[2023-07-18] MEDS: Ibuprofen 600 MG TABLET PO (12:38)
[2023-07-18 16:30] LABS: Glucose, Whole Blood 93 mg/dL (60-115)
[2023-07-18 18:00] VITALS: BP 130/67; PULSE 73; RESP 16; TEMP 37; O2SAT 100
[2023-07-18] MEDS: HaloperidoL 1 MG TABLET 2 MG PO (19:48)
[2023-07-18] MEDS: Donepezil HCl 10 MG TABLET PO (19:48)
[2023-07-18 21:04] LABS: Glucose, Whole Blood 149 mg/dL (60-115)
[2023-07-18 21:04] LABS: Glucose, Whole Blood 121 mg/dL (60-115)
[2023-07-19 06:40] LABS: Glucose, Whole Blood 87 mg/dL (60-115)
[2023-07-19 09:50] VITALS: BP 143/82; PULSE 65; RESP 18; TEMP 37.1; O2SAT 95
[2023-07-19] MEDS: Sertraline HCL 100 MG TABLET PO (09:53)
[2023-07-19] MEDS: Memantine HCl 10 MG TABLET PO ×2 (09:53→20:26)
[2023-07-19] MEDS: Atorvastatin Calcium 40 MG TABLET PO (09:53)
[2023-07-19] MEDS: Famotidine 20 MG TABLET PO (09:53)
[2023-07-19] MEDS: Empagliflozin 25 MG TABLET PO (09:53)
[2023-07-19] MEDS: Insulin Glargine,Hum.rec.anlog 100 UNIT/ML 10 ML VIAL 6 UNIT SUBCUT (09:53)
[2023-07-19] MEDS: metFORMIN HCl 1,000 MG TABLET 1000 MG PO ×2 (09:53→20:26)
[2023-07-19] MEDS: Magnesium Oxide 400 MG TABLET PO ×2 (09:53→17:39)
[2023-07-19 11:34] LABS: Glucose, Whole Blood 188 mg/dL (60-115)
[2023-07-19 11:40] LABS: Glucose, Whole Blood 194 mg/dL (60-115)
[2023-07-19] MEDS: Insulin Lispro 100 UNIT/ML 3 ML VIAL SUBCUT ×2 (11:49→20:27)
--- NOTE | 2023-07-19 13:00 | MHC.CLN ---
F/U DIET=DIABETIC 1800 KCAL. ENSURE MAX PROTEIN TID PROVIDES 450 KCALS, 90 G PROTEIN. VARIABLE INTAKE. ATE 100% AT BREAKFAST TODAY AND 25% AT LUNCH. SHOWS SIGNIFICANT WEIGHT LOSS X 3 MONTHS, -10%. FOLLOW WEEKLY FOR INTAKE AND WEIGHT.
--- NOTE | 2023-07-19 14:57 | P.PNPSI_ITS ---
Subjective Subjective Date of Service: 07/19/23 Reason For Visit: hallucinations confusion Subjective Notes: Conditional Voluntary Interim History: The nursing staff reported no changes in her mental status she remains extremely confused but easily redirectable. On interview the patient denies new symptoms. Mental Status Exam Mental Status Exam Patient Appearance: Well Grooomed and Appropriate Patient Orientation: Person Level of Consciousness: Awake Patient Behavior: Passive Mood Description: Calm Affect Description: Blunted Patient Cognition Impaired: Yes Ability to Follow Directions: Good Speech Pattern: Clear Hallucinations: None Delusions: Not Present Thought Process: Slowed Thinking Thought Content: positive for [place] and positive for Poverty of Content Judgement: Poor Diagnostics Vital Signs (24Hr): Vital Signs - 24 hr 07/18/23 18:00 07/19/23 09:50 Temperature 98.6 F 98.7 F Pulse Rate 73 65 Respiratory Rate 16 18 Blood Pressure 130/67 143/82 H Pulse Oximetry 100 95 Oxygen Delivery Method Room Air Room Air BMI result Body Mass Index 28.1 Labs 07/03/23 18:16 07/15/23 06:36 Labs: Laboratory Results - last 48 hr 07/17/23 07/17/23 07/18/23 16:12 19:28 06:29 POC Glucose 138 H 216 H 91 07/18/23 07/18/23 07/18/23 11:20 16:26 19:47 POC Glucose 196 H 93 149 H 07/18/23 07/19/23 07/19/23 20:58 06:33 11:27 POC Glucose 121 H 87 188 H 07/19/23 11:36 POC Glucose 194 H Imaging Radiology Impressions: ITS Impressions Brain MRI 04/03/23 15:30 IMPRESSION: No acute infarct, mass lesion, intracranial hemorrhage, or evidence of hydrocephalus. Mild nonspecific T2/FLAIR hyperintensity in the cerebral white matter and danny presumably on the basis of chronic microangiopathy. Cervical Spine CT 07/03/23 20:12 IMPRESSION: No acute findings within the cervical spine. The cervical central canal is not well assessed on this CT due to artifact. If weakness persists, a cervical spine MRI would be more sensitive in assessment. Medications Medications Current Medications Acetaminophen (Acetaminophen 325 Mg Tablet) 650 mg PO Q6H PRN PRN Reason: Headache/Pain Mild Scale (1-3) Last Admin: 07/18/23 10:07 Dose: 650 mg Al Hydroxide/Mg Hydroxide (Magnesium Hydrox/Alum Hydrox 30 Ml Oral.Susp) 30 ml PO Q6H PRN PRN Reason: Heartburn/Nausea Atorvastatin Calcium (Atorvastatin Calcium 40 Mg Tablet) 40 mg PO DAILY [facility] Last Admin: 07/19/23 09:53 Dose: 40 mg Dextrose (Dextrose 50 % 25 Gm/50 Ml Syringe) 25 gm IVPUSH Q15M PRN; Protocol PRN Reason: per Hypoglycemia Standing Ord. Donepezil HCl (Donepezil Hcl 10 Mg Tablet) 10 mg PO BEDTIME [facility] Last Admin: 07/18/23 19:48 Dose: 10 mg Empagliflozin (Empagliflozin 25 Mg Tablet) 25 mg PO DAILY [facility] Last Admin: 07/19/23 09:53 Dose: 25 mg Famotidine (Famotidine 20 Mg Tablet) 20 mg PO DAILY [facility] Last Admin: 07/19/23 09:53 Dose: 20 mg Glucose (Glucose Gel 15 Gm Gel..Gram.) 15 gm PO Q15M PRN; Protocol PRN Reason: per Hypoglycemia Standing Ord. Haloperidol (Haloperidol 1 Mg Tablet) 2 mg PO BEDTIME [facility] Last Admin: 07/18/23 19:48 Dose: 2 mg Ibuprofen (Ibuprofen 600 Mg Tablet) 600 mg PO Q6H PRN PRN Reason: pain not relieved by tylenol Last Admin: 07/18/23 12:38 Dose: 600 mg Insulin Glargine (Insulin Glargine,Hum.Rec.Anlog 100 Unit/Ml 10 Ml Vial) 6 unit SUBCUT DAILY [facility] Last Admin: 07/19/23 09:53 Dose: 6 unit Insulin Human Lispro (Insulin Lispro 100 Unit/Ml 3 Ml Vial) 0 unit SUBCUT QIDAS [facility]; Protocol Last Admin: 07/19/23 11:49 Dose: 2 unit Loperamide HCl (Loperamide Hcl 2 Mg Capsule) 2 mg PO Q6H PRN PRN Reason: Loose Stool Last Admin: 07/15/23 11:14 Dose: 2 mg Magnesium Hydroxide (Milk Of Magnesia 30 Ml Oral.Susp) 30 ml PO DAILY PRN PRN Reason: Constipation Magnesium Oxide ([facility] 400 Mg Tablet) [facility] Last Admin: 07/19/23 09:53 Dose: 400 mg Memantine (Memantine Hcl 10 Mg Tablet) 10 mg PO BID [facility] Last Admin: 07/19/23 09:53 Dose: 10 mg Metformin HCl (Metformin Hcl 1,000 Mg Tablet) 1,000 mg PO BID [facility] Last Admin: 07/19/23 09:53 Dose: 1,000 mg Olanzapine (Olanzapine 2.5 Mg Tablet) 2.5 mg PO Q4H PRN PRN Reason: anxiety/agitation Last Admin: 07/13/23 00:01 Dose: 2.5 mg Sertraline HCl (Sertraline Hcl 100 Mg Tablet) 100 mg PO DAILY [facility] Last Admin: 07/19/23 09:53 Dose: 100 mg Trazodone HCl (Trazodone Hcl 50 Mg Tablet) 50 mg PO BEDTIME MRX1 PRN PRN Reason: Insomnia Last Admin: 07/13/23 20:15 Dose: 50 mg Allergies Allergies Allergy/AdvReac Type Severity Reaction Status Date / Time No Known Allergies Allergy Verified 03/23/23 18:13 Assessment & Plan Assessment & Plan (1) Alzheimer's dementia: Status: Acute Code(s): G30.9 - Alzheimer's disease, unspecified; F02.80 - Dementia in other diseases classified elsewhere, unspecified severity, without behavioral disturbance, psychotic disturbance, mood disturbance, and anxiety Assessment and Plan: 58 years old woman with relative young age onset at Alzheimer dementia but overall clinical picture is affected by significant depression, which continues to be the predominant feature of for clinical picture. Conventional dementia medicines such as donepezil or memantine can be tried but usually do not make significant difference. I would suggest memantine 10 mg twice a day and donepezil 10 mg daily. Recently a new dementia at drug for Alzheimer was approved but only for relatively mild dementia or mild cognitive impairment type of patients. She would not qualify for that drug. Plan 1. Continue same treatment. 2. Waiting for placement. Plan Patient with low magnesium met result discontinued core needing care with hospitalist team given p.o. magnesium monitor levels neuro consult Reason for continued inpatient stay Substantial Risk for: inability to function, rapid decompensation and med/psych decompensation Time Spent With Patient Time: Total time managing care of this patient today _20___ minutes.
[2023-07-19 16:39] LABS: Glucose, Whole Blood 96 mg/dL (60-115)
[2023-07-19 19:45] VITALS: BP 148/78; PULSE 80; RESP 18; TEMP 36.1; O2SAT 98
[2023-07-19 19:58] LABS: Glucose, Whole Blood 197 mg/dL (60-115)
[2023-07-19] MEDS: Donepezil HCl 10 MG TABLET PO (20:26)
[2023-07-19] MEDS: HaloperidoL 1 MG TABLET 2 MG PO (20:26)
[2023-07-19] MEDS: Acetaminophen 325 MG TABLET 650 MG PO (23:21)
[2023-07-19] MEDS: traZODone HCL 50 MG TABLET PO (23:21)
[2023-07-20 06:39] LABS: Glucose, Whole Blood 95 mg/dL (60-115)
[2023-07-20 07:00] VITALS: BMI 27.7
[2023-07-20 08:01] VITALS: BP 148/73; PULSE 68; RESP 18; TEMP 36.2; O2SAT 97
[2023-07-20] MEDS: Magnesium Oxide 400 MG TABLET PO ×2 (11:15→16:52)
[2023-07-20] MEDS: Sertraline HCL 100 MG TABLET PO (11:15)
[2023-07-20] MEDS: Memantine HCl 10 MG TABLET PO ×2 (11:15→20:31)
[2023-07-20] MEDS: Famotidine 20 MG TABLET PO (11:15)
[2023-07-20] MEDS: metFORMIN HCl 1,000 MG TABLET 1000 MG PO ×2 (11:15→20:22)
[2023-07-20 11:16] LABS: Glucose, Whole Blood 119 mg/dL (60-115)
[2023-07-20] MEDS: Empagliflozin 25 MG TABLET PO (11:16)
[2023-07-20] MEDS: Atorvastatin Calcium 40 MG TABLET PO (11:16)
[2023-07-20] MEDS: Insulin Glargine,Hum.rec.anlog 100 UNIT/ML 10 ML VIAL 6 UNIT SUBCUT (11:16)
--- NOTE | 2023-07-20 11:47 | HO.PSYCHPN ---
Subjective Subjective Date of Service: 07/20/23 Reason For Visit: hallucinations confusion Subjective Notes: Conditional Voluntary Interim History: The nursing staff reported the patient had been compliant with treatment, she slept 8 hours no changes in her behavior. The occupational therapist reported that today is came in the neck collar. The patient had been placing her head down all the time it seems that there is some motor problem. On interview the patient is pleasantly confused no new symptoms. Mental Status Exam Mental Status Exam Patient Appearance: Appropriate Patient Orientation: Person Level of Consciousness: Awake Patient Behavior: Guarded and Passive Mood Description: Withdrawn Affect Description: Blunted Patient Cognition Impaired: Yes Ability to Follow Directions: Good Speech Pattern: Clear Hallucinations: None Delusions: Not Present Thought Process: Illogical and Distracted Thought Content: positive for [place], positive for Poverty of Content and positive for Thought Blocking Judgement: Poor Diagnostics Vital Signs (24Hr): Vital Signs - 24 hr 07/19/23 19:45 07/20/23 08:01 Temperature 97.0 F 97.1 F Pulse Rate 80 68 Respiratory Rate 18 18 Blood Pressure 148/78 H 148/73 H Pulse Oximetry 98 97 Oxygen Delivery Method Room Air Room Air BMI result Body Mass Index 28.1 Labs 07/03/23 18:16 07/15/23 06:36 Labs: Laboratory Results - last 48 hr 07/18/23 07/18/23 07/18/23 16:26 19:47 20:58 POC Glucose 93 149 H 121 H 07/19/23 07/19/23 07/19/23 06:33 11:27 11:36 POC Glucose 87 188 H 194 H 07/19/23 07/19/23 07/20/23 16:25 19:54 06:21 POC Glucose 96 197 H 95 07/20/23 11:11 POC Glucose 119 H Imaging Radiology Impressions: ITS Impressions Brain MRI 04/03/23 15:30 IMPRESSION: No acute infarct, mass lesion, intracranial hemorrhage, or evidence of hydrocephalus. Mild nonspecific T2/FLAIR hyperintensity in the cerebral white matter and danny presumably on the basis of chronic microangiopathy. Cervical Spine CT 07/03/23 20:12 IMPRESSION: No acute findings within the cervical spine. The cervical central canal is not well assessed on this CT due to artifact. If weakness persists, a cervical spine MRI would be more sensitive in assessment. Medications Medications Current Medications Acetaminophen (Acetaminophen 325 Mg Tablet) 650 mg PO Q6H PRN PRN Reason: Headache/Pain Mild Scale (1-3) Last Admin: 07/19/23 23:21 Dose: 650 mg Al Hydroxide/Mg Hydroxide (Magnesium Hydrox/Alum Hydrox 30 Ml Oral.Susp) 30 ml PO Q6H PRN PRN Reason: Heartburn/Nausea Atorvastatin Calcium (Atorvastatin Calcium 40 Mg Tablet) 40 mg PO DAILY [facility] Last Admin: 07/20/23 11:16 Dose: 40 mg Dextrose (Dextrose 50 % 25 Gm/50 Ml Syringe) 25 gm IVPUSH Q15M PRN; Protocol PRN Reason: per Hypoglycemia Standing Ord. Donepezil HCl (Donepezil Hcl 10 Mg Tablet) 10 mg PO BEDTIME [facility] Last Admin: 07/19/23 20:26 Dose: 10 mg Empagliflozin (Empagliflozin 25 Mg Tablet) 25 mg PO DAILY [facility] Last Admin: 07/20/23 11:16 Dose: 25 mg Famotidine (Famotidine 20 Mg Tablet) 20 mg PO DAILY [facility] Last Admin: 07/20/23 11:15 Dose: 20 mg Glucose (Glucose Gel 15 Gm Gel..Gram.) 15 gm PO Q15M PRN; Protocol PRN Reason: per Hypoglycemia Standing Ord. Haloperidol (Haloperidol 1 Mg Tablet) 2 mg PO BEDTIME [facility] Last Admin: 07/19/23 20:26 Dose: 2 mg Ibuprofen (Ibuprofen 600 Mg Tablet) 600 mg PO Q6H PRN PRN Reason: pain not relieved by tylenol Last Admin: 07/18/23 12:38 Dose: 600 mg Insulin Glargine (Insulin Glargine,Hum.Rec.Anlog 100 Unit/Ml 10 Ml Vial) 6 unit SUBCUT DAILY [facility] Last Admin: 07/20/23 11:16 Dose: 6 unit Insulin Human Lispro (Insulin Lispro 100 Unit/Ml 3 Ml Vial) 0 unit SUBCUT QIDACHS [facility]; Protocol Last Admin: 07/20/23 11:23 Dose: Not Given Loperamide HCl (Loperamide Hcl 2 Mg Capsule) 2 mg PO Q6H PRN PRN Reason: Loose Stool Last Admin: 07/15/23 11:14 Dose: 2 mg Magnesium Hydroxide (Milk Of Magnesia 30 Ml Oral.Susp) 30 ml PO DAILY PRN PRN Reason: Constipation Magnesium Oxide (Magnesium Oxide 400 Mg Tablet) 400 mg PO BIDPC [facility] Last Admin: 07/20/23 11:15 Dose: 400 mg Memantine (Memantine Hcl 10 Mg Tablet) 10 mg PO BID [facility] Last Admin: 07/20/23 11:15 Dose: 10 mg Metformin HCl (Metformin Hcl 1,000 Mg Tablet) 1,000 mg PO BID [facility] Last Admin: 07/20/23 11:15 Dose: 1,000 mg Olanzapine (Olanzapine 2.5 Mg Tablet) 2.5 mg PO Q4H PRN PRN Reason: anxiety/agitation Last Admin: 07/13/23 00:01 Dose: 2.5 mg Sertraline HCl (Sertraline Hcl 100 Mg Tablet) 100 mg PO DAILY [facility] Last Admin: 07/20/23 11:15 Dose: 100 mg Trazodone HCl (Trazodone Hcl 50 Mg Tablet) 50 mg PO BEDTIME MRX1 PRN PRN Reason: Insomnia Last Admin: 07/19/23 23:21 Dose: 50 mg Allergies Allergies Allergy/AdvReac Type Severity Reaction Status Date / Time No Known Allergies Allergy Verified 03/23/23 18:13 Assessment & Plan Assessment & Plan (1) Alzheimer's dementia: Status: Acute Code(s): G30.9 - Alzheimer's disease, unspecified; F02.80 - Dementia in other diseases classified elsewhere, unspecified severity, without behavioral disturbance, psychotic disturbance, mood disturbance, and anxiety Assessment and Plan: 58 years old woman with relative young age onset at Alzheimer dementia but overall clinical picture is affected by significant depression, which continues to be the predominant feature of for clinical picture. Conventional dementia medicines such as donepezil or memantine can be tried but usually do not make significant difference. I would suggest memantine 10 mg twice a day and donepezil 10 mg daily. Recently a new dementia at drug for Alzheimer was approved but only for relatively mild dementia or mild cognitive impairment type of patients. She would not qualify for that drug. Plan 1. Continue same treatment. 2. Waiting for placement. Plan Patient with low magnesium met result discontinued core needing care with hospitalist team given p.o. magnesium monitor levels neuro consult Reason for continued inpatient stay Substantial Risk for: inability to function, rapid decompensation and med/psych decompensation Time Spent With Patient Time: Total time managing care of this patient today __20__ minutes.
[2023-07-20] MEDS: Ibuprofen 600 MG TABLET PO (13:56)
[2023-07-20 16:34] LABS: Glucose, Whole Blood 158 mg/dL (60-115)
[2023-07-20] MEDS: Insulin Lispro 100 UNIT/ML 3 ML VIAL SUBCUT ×2 (16:51→20:31)
[2023-07-20 19:35] VITALS: BP 143/92; PULSE 68; RESP 18; TEMP 36.6; O2SAT 96
[2023-07-20] MEDS: Donepezil HCl 10 MG TABLET PO (20:22)
[2023-07-20 20:23] LABS: Glucose, Whole Blood 176 mg/dL (60-115)
[2023-07-20] MEDS: Acetaminophen 325 MG TABLET 650 MG PO (20:23)
[2023-07-20] MEDS: HaloperidoL 1 MG TABLET 2 MG PO (20:23)
[2023-07-21 05:41] LABS: Glucose, Whole Blood 115 mg/dL (60-115)
[2023-07-21 09:36] VITALS: BP 159/66; PULSE 71; RESP 20; TEMP 35.7; O2SAT 96
[2023-07-21] MEDS: Magnesium Oxide 400 MG TABLET PO ×2 (09:43→16:59)
[2023-07-21] MEDS: Memantine HCl 10 MG TABLET PO ×2 (09:44→21:16)
[2023-07-21] MEDS: metFORMIN HCl 1,000 MG TABLET 1000 MG PO ×2 (09:44→21:16)
[2023-07-21] MEDS: Famotidine 20 MG TABLET PO (09:44)
[2023-07-21] MEDS: Atorvastatin Calcium 40 MG TABLET PO (09:44)
[2023-07-21] MEDS: Empagliflozin 25 MG TABLET PO (09:44)
[2023-07-21] MEDS: Sertraline HCL 100 MG TABLET PO (09:44)
[2023-07-21] MEDS: Insulin Glargine,Hum.rec.anlog 100 UNIT/ML 10 ML VIAL 6 UNIT SUBCUT (09:45)
[2023-07-21] MEDS: Ibuprofen 600 MG TABLET PO (09:47)
[2023-07-21 11:35] LABS: Glucose, Whole Blood 176 mg/dL (60-115)
[2023-07-21] MEDS: Insulin Lispro 100 UNIT/ML 3 ML VIAL SUBCUT ×2 (11:42→21:14)
--- NOTE | 2023-07-21 15:38 | HO.PSYCHPN ---
Subjective Subjective Date of Service: 07/21/23 Reason For Visit: hallucinations confusion Subjective Notes: Conditional Voluntary Interim History: The nursing staff reported no changes in her mental status. The occupational therapist brought today holders of her head could be hold in a normal position. The patient reported that it is working for her. On interview the patient denies new symptoms pleasantly confused chronically demented. Waiting for placement. Mental Status Exam Mental Status Exam Patient Appearance: Well Grooomed and Appropriate Patient Orientation: Person and Situation Level of Consciousness: Awake and Appropriate Patient Behavior: Guarded and Passive Mood Description: Withdrawn Affect Description: Constricted Patient Cognition Impaired: Yes Ability to Follow Directions: Good Speech Pattern: Clear Hallucinations: None Delusions: Not Present Thought Process: Distracted and Evasive Thought Content: positive for [place] and positive for Poverty of Content Judgement: Fair Diagnostics Vital Signs (24Hr): Vital Signs - 24 hr 07/20/23 19:35 07/21/23 09:36 Temperature 97.8 F 96.2 F L Pulse Rate 68 71 Respiratory Rate 18 20 Blood Pressure 143/92 H 159/66 H Pulse Oximetry 96 96 Oxygen Delivery Method Room Air Room Air BMI result Body Mass Index 27.7 Labs 07/03/23 18:16 07/15/23 06:36 Labs: Laboratory Results - last 48 hr 07/19/23 07/19/23 07/20/23 16:25 19:54 06:21 POC Glucose 96 197 H 95 07/20/23 07/20/23 07/20/23 11:11 16:26 19:39 POC Glucose 119 H 158 H 176 H 07/21/23 07/21/23 05:38 11:26 POC Glucose 115 176 H Imaging Radiology Impressions: ITS Impressions Brain MRI 04/03/23 15:30 IMPRESSION: No acute infarct, mass lesion, intracranial hemorrhage, or evidence of hydrocephalus. Mild nonspecific T2/FLAIR hyperintensity in the cerebral white matter and danny presumably on the basis of chronic microangiopathy. Cervical Spine CT 07/03/23 20:12 IMPRESSION: No acute findings within the cervical spine. The cervical central canal is not well assessed on this CT due to artifact. If weakness persists, a cervical spine MRI would be more sensitive in assessment. Medications Medications Current Medications Acetaminophen (Acetaminophen 325 Mg Tablet) 650 mg PO Q6H PRN PRN Reason: Headache/Pain Mild Scale (1-3) Last Admin: 07/20/23 20:23 Dose: 650 mg Al Hydroxide/Mg Hydroxide (Magnesium Hydrox/Alum Hydrox 30 Ml Oral.Susp) 30 ml PO Q6H PRN PRN Reason: Heartburn/Nausea Atorvastatin Calcium (Atorvastatin Calcium 40 Mg Tablet) 40 mg PO DAILY [facility] Last Admin: 07/21/23 09:44 Dose: 40 mg Dextrose (Dextrose 50 % 25 Gm/50 Ml Syringe) 25 gm IVPUSH Q15M PRN; Protocol PRN Reason: per Hypoglycemia Standing Ord. Donepezil HCl (Donepezil Hcl 10 Mg Tablet) 10 mg PO BEDTIME [facility] Last Admin: 07/20/23 20:22 Dose: 10 mg Empagliflozin (Empagliflozin 25 Mg Tablet) 25 mg PO DAILY [facility] Last Admin: 07/21/23 09:44 Dose: 25 mg Famotidine (Famotidine 20 Mg Tablet) 20 mg PO DAILY [facility] Last Admin: 07/21/23 09:44 Dose: 20 mg Glucose (Glucose Gel 15 Gm Gel..Gram.) 15 gm PO Q15M PRN; Protocol PRN Reason: per Hypoglycemia Standing Ord. Haloperidol (Haloperidol 1 Mg Tablet) 2 mg PO BEDTIME [facility] Last Admin: 07/20/23 20:23 Dose: 2 mg Ibuprofen (Ibuprofen 600 Mg Tablet) 600 mg PO Q6H PRN PRN Reason: pain not relieved by tylenol Last Admin: 07/21/23 09:47 Dose: 600 mg Insulin Glargine (Insulin Glargine,Hum.Rec.Anlog 100 Unit/Ml 10 Ml Vial) 6 unit SUBCUT DAILY [facility] Last Admin: 07/21/23 09:45 Dose: 6 unit Insulin Human Lispro (Insulin Lispro 100 Unit/Ml 3 Ml Vial) 0 unit SUBCUT QIDACHS [facility]; Protocol Last Admin: 07/21/23 11:42 Dose: 2 unit Loperamide HCl (Loperamide Hcl 2 Mg Capsule) 2 mg PO Q6H PRN PRN Reason: Loose Stool Last Admin: 07/15/23 11:14 Dose: 2 mg Magnesium Hydroxide (Milk Of Magnesia 30 Ml Oral.Susp) 30 ml PO DAILY PRN PRN Reason: Constipation Magn[facility] ([facility] 400 Mg [facility]t) [facility] Last Admin: 07/21/23 09:43 Dose: 400 mg Memantine (Memantine Hcl 10 Mg Tablet) 10 mg PO BID [facility] Last Admin: 07/21/23 09:44 Dose: 10 mg Metformin HCl (Metformin Hcl 1,000 Mg Tablet) 1,000 mg PO BID [facility] Last Admin: 07/21/23 09:44 Dose: 1,000 mg Olanzapine (Olanzapine 2.5 Mg Tablet) 2.5 mg PO Q4H PRN PRN Reason: anxiety/agitation Last Admin: 07/13/23 00:01 Dose: 2.5 mg Sertraline HCl (Sertraline Hcl 100 Mg Tablet) 100 mg PO DAILY [facility] Last Admin: 07/21/23 09:44 Dose: 100 mg Trazodone HCl (Trazodone Hcl 50 Mg Tablet) 50 mg PO BEDTIME MRX1 PRN PRN Reason: Insomnia Last Admin: 07/19/23 23:21 Dose: 50 mg Allergies Allergies Allergy/AdvReac Type Severity Reaction Status Date / Time No Known Allergies Allergy Verified 03/23/23 18:13 Assessment & Plan Assessment & Plan (1) Alzheimer's dementia: Status: Acute Code(s): G30.9 - Alzheimer's disease, unspecified; F02.80 - Dementia in other diseases classified elsewhere, unspecified severity, without behavioral disturbance, psychotic disturbance, mood disturbance, and anxiety Assessment and Plan: 58 years old woman with relative young age onset at Alzheimer dementia but overall clinical picture is affected by significant depression, which continues to be the predominant feature of for clinical picture. Conventional dementia medicines such as donepezil or memantine can be tried but usually do not make significant difference. I would suggest memantine 10 mg twice a day and donepezil 10 mg daily. Recently a new dementia at drug for Alzheimer was approved but only for relatively mild dementia or mild cognitive impairment type of patients. She would not qualify for that drug. Plan 1. Continue same treatment. 2. Waiting for placement. Plan Patient with low magnesium met result discontinued core needing care with hospitalist team given p.o. magnesium monitor levels neuro consult Reason for continued inpatient stay Substantial Risk for: inability to function, rapid decompensation and med/psych decompensation Time Spent With Patient Time: Total time managing care of this patient today _20 ___ minutes.
[2023-07-21 16:52] LABS: Glucose, Whole Blood 105 mg/dL (60-115)
[2023-07-21 20:15] VITALS: BP 142/65; PULSE 78; RESP 16; TEMP 36.2; O2SAT 98
[2023-07-21 20:18] LABS: Glucose, Whole Blood 213 mg/dL (60-115)
[2023-07-21] MEDS: Donepezil HCl 10 MG TABLET PO (21:17)
[2023-07-21] MEDS: HaloperidoL 1 MG TABLET 2 MG PO (21:17)
[2023-07-21 22:35] LABS: Glucose, Whole Blood 185 mg/dL (60-115)
[2023-07-22 06:48] LABS: Glucose, Whole Blood 104 mg/dL (60-115)
[2023-07-22 08:05] LABS: Creatinine Clr Calc Pharmacy 97.2; Estimated Glomerular Filt Rate > 60
[2023-07-22 08:47] VITALS: BP 144/78; PULSE 74; RESP 16; TEMP 36.6; O2SAT 96
[2023-07-22] MEDS: Atorvastatin Calcium 40 MG TABLET PO (08:57)
[2023-07-22] MEDS: Magnesium Oxide 400 MG TABLET PO ×2 (08:57→18:37)
[2023-07-22] MEDS: Memantine HCl 10 MG TABLET PO ×2 (08:57→21:09)
[2023-07-22] MEDS: metFORMIN HCl 1,000 MG TABLET 1000 MG PO ×2 (08:57→21:09)
[2023-07-22] MEDS: Insulin Glargine,Hum.rec.anlog 100 UNIT/ML 10 ML VIAL 6 UNIT SUBCUT (08:58)
[2023-07-22] MEDS: Famotidine 20 MG TABLET PO (08:58)
[2023-07-22] MEDS: Sertraline HCL 100 MG TABLET PO (08:58)
[2023-07-22] MEDS: Empagliflozin 25 MG TABLET PO (08:58)
[2023-07-22 11:25] LABS: Glucose, Whole Blood 97 mg/dL (60-115)
[2023-07-22] MEDS: Acetaminophen 325 MG TABLET 650 MG PO (15:48)
[2023-07-22 16:27] LABS: Glucose, Whole Blood 118 mg/dL (60-115)
[2023-07-22 18:00] VITALS: BP 134/67; PULSE 72; RESP 16; TEMP 36.8; O2SAT 96
--- NOTE | 2023-07-22 20:01 | P.PNPSI_ITS ---
Subjective Subjective Date of Service: 07/22/23 Reason For Visit: hallucinations confusion Subjective Notes: Conditional Voluntary Interim History: Pt slept through the night. Pt reports neck pain but states is better. poverty of thought no interaction with peers. walks on her own. Review of Systems Review of Systems Unremarkable Yes all other systems are reviewed and are negative and Unobtainable due to mental status Constitutional: Reports as per HPI, Denies chills, Denies fatigue, Denies fever(s) and Denies headache(s) Denies headache(s) Cardiovascular: Denies chest pain and Denies dyspnea Respiratory: Denies cough and Denies dyspnea Gastrointestinal: Denies abdominal pain, Denies constipation and Denies vomiting Denies headache(s) and Denies focal weakness Psychiatric: Denies auditory hallucinations, Reports hallucinations (Per the patient's daughter. Patient denies this), Denies tactile hallucinations and Denies suicidal ideation Endocrine: Denies fatigue Mental Status Exam Mental Status Exam Patient Appearance: Well Grooomed and Appropriate Patient Orientation: Person and Situation Level of Consciousness: Awake and Appropriate Patient Behavior: Guarded and Passive Mood Description: Withdrawn Affect Description: Constricted Patient Cognition Impaired: Yes Ability to Follow Directions: Good Speech Pattern: Clear Memory Description: Working Impaired Diagnostics Vital Signs (24Hr): Vital Signs - 24 hr 07/21/23 20:15 07/22/23 08:47 Temperature 97.2 F 97.8 F Pulse Rate 78 74 Respiratory Rate 16 16 Blood Pressure 142/65 H 144/78 H Pulse Oximetry 98 96 Oxygen Delivery Method Room Air Room Air BMI result Body Mass Index 27.7 Labs 07/03/23 18:16 07/22/23 07:46 Labs: Laboratory Results - last 48 hr 07/20/23 07/21/23 07/21/23 19:39 05:38 11:26 Creatinine Estim Creat Clear Calc Estimated GFR POC Glucose 176 H 115 176 H 07/21/23 07/21/23 07/21/23 16:33 19:57 21:09 Creatinine Estim Creat Clear Calc Estimated GFR POC Glucose 105 213 H 185 H 07/22/23 07/22/23 07/22/23 06:41 07:46 11:15 Creatinine 0.58 Estim Creat Clear Calc 97.2 Estimated GFR > 60 POC Glucose 104 97 07/22/23 16:22 Creatinine Estim Creat Clear Calc Estimated GFR POC Glucose 118 H Imaging Radiology Impressions: ITS Impressions Brain MRI 04/03/23 15:30 IMPRESSION: No acute infarct, mass lesion, intracranial hemorrhage, or evidence of hydrocephalus. Mild nonspecific T2/FLAIR hyperintensity in the cerebral white matter and danny presumably on the basis of chronic microangiopathy. Cervical Spine CT 07/03/23 20:12 IMPRESSION: No acute findings within the cervical spine. The cervical central canal is not well assessed on this CT due to artifact. If weakness persists, a cervical spine MRI would be more sensitive in assessment. Medications Medications Current Medications Acetaminophen (Acetaminophen 325 Mg Tablet) 650 mg PO Q6H PRN PRN Reason: Headache/Pain Mild Scale (1-3) Last Admin: 07/22/23 15:48 Dose: 650 mg Al Hydroxide/Mg Hydroxide (Magnesium Hydrox/Alum Hydrox 30 Ml Oral.Susp) 30 ml PO Q6H PRN PRN Reason: Heartburn/Nausea Atorvastatin Calcium (Atorvastatin Calcium 40 Mg Tablet) 40 mg PO DAILY [facility] Last Admin: 07/22/23 08:57 Dose: 40 mg Dextrose (Dextrose 50 % 25 Gm/50 Ml Syringe) 25 gm IVPUSH Q15M PRN; Protocol PRN Reason: per Hypoglycemia Standing Ord. Donepezil HCl (Donepezil Hcl 10 Mg Tablet) 10 mg PO BEDTIME [facility] Last Admin: 07/21/23 21:17 Dose: 10 mg Empagliflozin (Empagliflozin 25 Mg Tablet) 25 mg PO DAILY [facility] Last Admin: 07/22/23 08:58 Dose: 25 mg Famotidine (Famotidine 20 Mg Tablet) 20 mg PO DAILY [facility] Last Admin: 07/22/23 08:58 Dose: 20 mg Glucose (Glucose Gel 15 Gm Gel..Gram.) 15 gm PO Q15M PRN; Protocol PRN Reason: per Hypoglycemia Standing Ord. Haloperidol (Haloperidol 1 Mg Tablet) 2 mg PO BEDTIME [facility] Last Admin: 07/21/23 21:17 Dose: 2 mg Ibuprofen (Ibuprofen 600 Mg Tablet) 600 mg PO Q6H PRN PRN Reason: pain not relieved by tylenol Last Admin: 07/21/23 09:47 Dose: 600 mg Insulin Glargine (Insulin Glargine,Hum.Rec.Anlog 100 Unit/Ml 10 Ml Vial) 6 unit SUBCUT DAILY [facility] Last Admin: 07/22/23 08:58 Dose: 6 unit Insulin Human Lispro (Insulin Lispro 100 Unit/Ml 3 Ml Vial) 0 unit SUBCUT QIDACHS [facility]; Protocol Last Admin: 07/22/23 18:41 Dose: Not Given Loperamide HCl (Loperamide Hcl 2 Mg Capsule) 2 mg PO Q6H PRN PRN Reason: Loose Stool Last Admin: 07/15/23 11:14 Dose: 2 mg Magnesium Hydroxide (Milk Of Magnesia 30 Ml Oral.Susp) 30 ml PO DAILY PRN PRN Reason: Constipation Magnesium Oxide (Magnesium [facility]ide 400 Mg Tablet) [facility] Last Admin: 07/22/23 18:37 Dose: 400 mg Memantine (Memantine Hcl 10 Mg Tablet) 10 mg PO BID [facility] Last Admin: 07/22/23 08:57 Dose: 10 mg Metformin HCl (Metformin Hcl 1,000 Mg Tablet) 1,000 mg PO BID [facility] Last Admin: 07/22/23 08:57 Dose: 1,000 mg Olanzapine (Olanzapine 2.5 Mg Tablet) 2.5 mg PO Q4H PRN PRN Reason: anxiety/agitation Last Admin: 07/13/23 00:01 Dose: 2.5 mg Sertraline HCl (Sertraline Hcl 100 Mg Tablet) 100 mg PO DAILY [facility] Last Admin: 07/22/23 08:58 Dose: 100 mg Trazodone HCl (Trazodone Hcl 50 Mg Tablet) 50 mg PO BEDTIME MRX1 PRN PRN Reason: Insomnia Last Admin: 07/19/23 23:21 Dose: 50 mg Allergies Allergies Allergy/AdvReac Type Severity Reaction Status Date / Time No Known Allergies Allergy Verified 03/23/23 18:13 Assessment & Plan Assessment & Plan (1) Alzheimer's dementia: Status: Acute Code(s): G30.9 - Alzheimer's disease, unspecified; F02.80 - Dementia in other diseases classified elsewhere, unspecified severity, without behavioral disturbance, psychotic disturbance, mood disturbance, and anxiety Assessment and Plan: 58 years old woman with relative young age onset at Alzheimer dementia but overall clinical picture is affected by significant depression, which continues to be the predominant feature of for clinical picture. Conventional dementia medicines such as donepezil or memantine can be tried but usually do not make significant difference. I would suggest memantine 10 mg twice a day and donepezil 10 mg daily. Recently a new dementia at drug for Alzheimer was approved but only for relatively mild dementia or mild cognitive impairment type of patients. She would not qualify for that drug. Plan 1. Continue same treatment. 2. Waiting for placement. Plan Patient with low magnesium met result discontinued core needing care with hospitalist team given p.o. magnesium monitor levels neuro consult Reason for continued inpatient stay Substantial Risk for: inability to function Time Spent With Patient Time: Total time managing care of this patient today ____ minutes.
[2023-07-22 21:05] LABS: Glucose, Whole Blood 104 mg/dL (60-115)
[2023-07-22] MEDS: Donepezil HCl 10 MG TABLET PO (21:09)
[2023-07-22] MEDS: HaloperidoL 1 MG TABLET 2 MG PO (21:09)
--- NOTE | 2023-07-22 23:17 | PC.NURSE ---
Assumed care of patient 19:00 07/22. See assessments for full details. Handoff report given 23:00.
[2023-07-23 06:16] LABS: Glucose, Whole Blood 99 mg/dL (60-115)
[2023-07-23 08:45] VITALS: BP 134/60; PULSE 72; RESP 20; TEMP 36.2; O2SAT 96
[2023-07-23] MEDS: Insulin Glargine,Hum.rec.anlog 100 UNIT/ML 10 ML VIAL 6 UNIT SUBCUT (08:46)
[2023-07-23] MEDS: Famotidine 20 MG TABLET PO (08:47)
[2023-07-23] MEDS: Magnesium Oxide 400 MG TABLET PO ×2 (08:47→16:53)
[2023-07-23] MEDS: Memantine HCl 10 MG TABLET PO ×2 (08:47→21:08)
[2023-07-23] MEDS: Sertraline HCL 100 MG TABLET PO (08:47)
[2023-07-23] MEDS: Empagliflozin 25 MG TABLET PO (08:47)
[2023-07-23] MEDS: metFORMIN HCl 1,000 MG TABLET 1000 MG PO ×2 (08:48→21:08)
[2023-07-23] MEDS: Atorvastatin Calcium 40 MG TABLET PO (08:48)
[2023-07-23 11:35] LABS: Glucose, Whole Blood 245 mg/dL (60-115)
[2023-07-23] MEDS: Insulin Lispro 100 UNIT/ML 3 ML VIAL SUBCUT (11:41)
[2023-07-23] MEDS: Acetaminophen 325 MG TABLET 650 MG PO (16:52)
[2023-07-23 16:53] LABS: Glucose, Whole Blood 112 mg/dL (60-115)
[2023-07-23 18:00] VITALS: BP 128/62; PULSE 69; RESP 18; TEMP 36.2; O2SAT 97
--- NOTE | 2023-07-23 20:14 | HO.PSYCHPN ---
Subjective Subjective Date of Service: 07/23/23 Reason For Visit: hallucinations confusion Interim History: Pt slept through the night. Pt reports headache- given tylenol. poverty of thought no interaction with peers. walks on her own. No combative behaviors. Review of Systems Review of Systems Unremarkable Yes all other systems are reviewed and are negative and Unobtainable due to mental status Constitutional: Reports as per HPI, Denies chills, Denies fatigue, Denies fever(s) and Denies headache(s) Denies headache(s) Cardiovascular: Denies chest pain and Denies dyspnea Respiratory: Denies cough and Denies dyspnea Gastrointestinal: Denies abdominal pain, Denies constipation and Denies vomiting Denies headache(s) and Denies focal weakness Psychiatric: Denies auditory hallucinations, Reports hallucinations (Per the patient's daughter. Patient denies this), Denies tactile hallucinations and Denies suicidal ideation Endocrine: Denies fatigue Mental Status Exam Mental Status Exam Patient Appearance: Well Grooomed and Appropriate Patient Orientation: Person and Situation Level of Consciousness: Awake and Appropriate Patient Behavior: Guarded and Passive Mood Description: Withdrawn Affect Description: Constricted Patient Cognition Impaired: Yes Ability to Follow Directions: Good Speech Pattern: Clear Memory Description: Working Impaired Diagnostics Vital Signs (24Hr): Vital Signs - 24 hr 07/23/23 08:45 Temperature 97.2 F Pulse Rate 72 Respiratory Rate 20 Blood Pressure 134/60 Pulse Oximetry 96 Oxygen Delivery Method Room Air BMI result Body Mass Index 27.7 Labs 07/03/23 18:16 07/22/23 07:46 Labs: Laboratory Results - last 48 hr 07/21/23 07/21/23 07/22/23 19:57 21:09 06:41 Creatinine Estim Creat Clear Calc Estimated GFR POC Glucose 213 H 185 H 104 07/22/23 07/22/23 07/22/23 07:46 11:15 16:22 Creatinine 0.58 Estim Creat Clear Calc 97.2 Estimated GFR > 60 POC Glucose 97 118 H 07/22/23 07/23/23 07/23/23 21:01 06:11 11:25 Creatinine Estim Creat Clear Calc Estimated GFR POC Glucose 104 99 245 H 07/23/23 16:43 Creatinine Estim Creat Clear Calc Estimated GFR POC Glucose 112 Imaging Radiology Impressions: ITS Impressions Brain MRI 04/03/23 15:30 IMPRESSION: No acute infarct, mass lesion, intracranial hemorrhage, or evidence of hydrocephalus. Mild nonspecific T2/FLAIR hyperintensity in the cerebral white matter and danny presumably on the basis of chronic microangiopathy. Cervical Spine CT 07/03/23 20:12 IMPRESSION: No acute findings within the cervical spine. The cervical central canal is not well assessed on this CT due to artifact. If weakness persists, a cervical spine MRI would be more sensitive in assessment. Medications Medications Current Medications Acetaminophen (Acetaminophen 325 Mg Tablet) 650 mg PO Q6H PRN PRN Reason: Headache/Pain Mild Scale (1-3) Last Admin: 07/23/23 16:52 Dose: 650 mg Al Hydroxide/Mg Hydroxide (Magnesium Hydrox/Alum Hydrox 30 Ml Oral.Susp) 30 ml PO Q6H PRN PRN Reason: Heartburn/Nausea Atorvastatin Calcium (Atorvastatin Calcium 40 Mg Tablet) 40 mg PO DAILY [facility] Last Admin: 07/23/23 08:48 Dose: 40 mg Dextrose (Dextrose 50 % 25 Gm/50 Ml Syringe) 25 gm IVPUSH Q15M PRN; Protocol PRN Reason: per Hypoglycemia Standing Ord. Donepezil HCl (Donepezil Hcl 10 Mg Tablet) 10 mg PO BEDTIME [facility] Last Admin: 07/22/23 21:09 Dose: 10 mg Empagliflozin (Empagliflozin 25 Mg Tablet) 25 mg PO DAILY [facility] Last Admin: 07/23/23 08:47 Dose: 25 mg Famotidine (Famotidine 20 Mg Tablet) 20 mg PO DAILY [facility] Last Admin: 07/23/23 08:47 Dose: 20 mg Glucose (Glucose Gel 15 Gm Gel..Gram.) 15 gm PO Q15M PRN; Protocol PRN Reason: per Hypoglycemia Standing Ord. Haloperidol (Haloperidol 1 Mg Tablet) 2 mg PO BEDTIME [facility] Last Admin: 07/22/23 21:09 Dose: 2 mg Ibuprofen (Ibuprofen 600 Mg Tablet) 600 mg PO Q6H PRN PRN Reason: pain not relieved by tylenol Last Admin: 07/21/23 09:47 Dose: 600 mg Insulin Glargine (Insulin Glargine,Hum.Rec.Anlog 100 Unit/Ml 10 Ml Vial) 6 unit SUBCUT DAILY [facility] Last Admin: 07/23/23 08:46 Dose: 6 unit Insulin Human Lispro (Insulin Lispro 100 Unit/Ml 3 Ml Vial) 0 unit SUBCUT QIDACHS [facility]; Protocol Last Admin: 07/23/23 16:53 Dose: Not Given Loperamide HCl (Loperamide Hcl 2 Mg Capsule) 2 mg PO Q6H PRN PRN Reason: Loose Stool Last Admin: 07/15/23 11:14 Dose: 2 mg Magnesium Hydroxide (Milk Of Magnesia 30 Ml Oral.Susp) 30 ml PO DAILY PRN PRN Reason: Constipation [facility] Last Admin: 07/23/23 16:53 Dose: 400 mg Memantine (Memantine Hcl 10 Mg Tablet) 10 mg PO BID [facility] Last Admin: 07/23/23 08:47 Dose: 10 mg Metformin HCl (Metformin Hcl 1,000 Mg Tablet) 1,000 mg PO BID [facility] Last Admin: 07/23/23 08:48 Dose: 1,000 mg Olanzapine (Olanzapine 2.5 Mg Tablet) 2.5 mg PO Q4H PRN PRN Reason: anxiety/agitation Last Admin: 07/13/23 00:01 Dose: 2.5 mg Sertraline HCl (Sertraline Hcl 100 Mg Tablet) 100 mg PO DAILY [facility] Last Admin: 07/23/23 08:47 Dose: 100 mg Trazodone HCl (Trazodone Hcl 50 Mg Tablet) 50 mg PO BEDTIME MRX1 PRN PRN Reason: Insomnia Last Admin: 07/19/23 23:21 Dose: 50 mg Allergies Allergies Allergy/AdvReac Type Severity Reaction Status Date / Time No Known Allergies Allergy Verified 03/23/23 18:13 Assessment & Plan Assessment & Plan (1) Alzheimer's dementia: Status: Acute Code(s): G30.9 - Alzheimer's disease, unspecified; F02.80 - Dementia in other diseases classified elsewhere, unspecified severity, without behavioral disturbance, psychotic disturbance, mood disturbance, and anxiety Assessment and Plan: 58 years old woman with relative young age onset at Alzheimer dementia but overall clinical picture is affected by significant depression, which continues to be the predominant feature of for clinical picture. Conventional dementia medicines such as donepezil or memantine can be tried but usually do not make significant difference. I would suggest memantine 10 mg twice a day and donepezil 10 mg daily. Recently a new dementia at drug for Alzheimer was approved but only for relatively mild dementia or mild cognitive impairment type of patients. She would not qualify for that drug. Plan 1. Continue same treatment. 2. Waiting for placement. Plan Patient with low magnesium met result discontinued core needing care with hospitalist team given p.o. magnesium monitor levels neuro consult Reason for continued inpatient stay Substantial Risk for: inability to function Time Spent With Patient Time: Total time managing care of this patient today ____ minutes.
[2023-07-23 20:19] LABS: Glucose, Whole Blood 136 mg/dL (60-115)
[2023-07-23] MEDS: HaloperidoL 1 MG TABLET 2 MG PO (21:08)
[2023-07-23] MEDS: Donepezil HCl 10 MG TABLET PO (21:08)
[2023-07-23] MEDS: traZODone HCL 50 MG TABLET PO (21:10)
[2023-07-23] MEDS: Ibuprofen 600 MG TABLET PO (21:10)
[2023-07-24 05:43] LABS: Glucose, Whole Blood 98 mg/dL (60-115)
[2023-07-24] MEDS: Insulin Glargine,Hum.rec.anlog 100 UNIT/ML 10 ML VIAL 6 UNIT SUBCUT (10:24)
[2023-07-24] MEDS: Empagliflozin 25 MG TABLET PO (11:22)
[2023-07-24] MEDS: Magnesium Oxide 400 MG TABLET PO ×2 (11:22→17:50)
[2023-07-24] MEDS: Memantine HCl 10 MG TABLET PO ×2 (11:22→20:10)
[2023-07-24] MEDS: metFORMIN HCl 1,000 MG TABLET 1000 MG PO ×2 (11:23→20:10)
[2023-07-24] MEDS: Atorvastatin Calcium 40 MG TABLET PO (11:23)
[2023-07-24] MEDS: Famotidine 20 MG TABLET PO (11:23)
[2023-07-24] MEDS: Sertraline HCL 100 MG TABLET PO (11:23)
[2023-07-24 11:34] LABS: Glucose, Whole Blood 96 mg/dL (60-115)
--- NOTE | 2023-07-24 13:11 | HO.PSYCHPN ---
Subjective Subjective Date of Service: 07/24/23 Reason For Visit: hallucinations confusion Subjective Notes: Conditional Voluntary Interim History: The nursing staff reported no changes in her mental status, she had been wearing her collar. She slept well last night. On interview the patient is pleasantly confused, waiting for placement. Mental Status Exam Mental Status Exam Patient Appearance: Appropriate Patient Orientation: Person Level of Consciousness: Awake Patient Behavior: Guarded and Passive Mood Description: Withdrawn Affect Description: Blunted Patient Cognition Impaired: Yes Ability to Follow Directions: Good Speech Pattern: Clear Hallucinations: None Delusions: Not Present Thought Process: Distracted and Slowed Thinking Thought Content: positive for [place] and positive for Poverty of Content Judgement: Poor Diagnostics Vital Signs (24Hr): Vital Signs - 24 hr 07/23/23 18:00 Temperature 97.2 F Pulse Rate 69 Respiratory Rate 18 Blood Pressure 128/62 Pulse Oximetry 97 Oxygen Delivery Method Room Air BMI result Body Mass Index 27.7 Labs 07/03/23 18:16 07/22/23 07:46 Labs: Laboratory Results - last 48 hr 07/22/23 07/22/23 07/23/23 16:22 21:01 06:11 POC Glucose 118 H 104 99 07/23/23 07/23/23 07/23/23 11:25 16:43 20:09 POC Glucose 245 H 112 136 H 07/24/23 07/24/23 05:35 11:31 POC Glucose 98 96 Imaging Radiology Impressions: ITS Impressions Brain MRI 04/03/23 15:30 IMPRESSION: No acute infarct, mass lesion, intracranial hemorrhage, or evidence of hydrocephalus. Mild nonspecific T2/FLAIR hyperintensity in the cerebral white matter and danny presumably on the basis of chronic microangiopathy. Cervical Spine CT 07/03/23 20:12 IMPRESSION: No acute findings within the cervical spine. The cervical central canal is not well assessed on this CT due to artifact. If weakness persists, a cervical spine MRI would be more sensitive in assessment. Medications Medications Current Medications Acetaminophen (Acetaminophen 325 Mg Tablet) 650 mg PO Q6H PRN PRN Reason: Headache/Pain Mild Scale (1-3) Last Admin: 07/23/23 16:52 Dose: 650 mg Al Hydroxide/Mg Hydroxide (Magnesium Hydrox/Alum Hydrox 30 Ml Oral.Susp) 30 ml PO Q6H PRN PRN Reason: Heartburn/Nausea Atorvastatin Calcium (Atorvastatin Calcium 40 Mg Tablet) 40 mg PO DAILY BEN Last Admin: 07/24/23 11:23 Dose: 40 mg Dextrose (Dextrose 50 % 25 Gm/50 Ml Syringe) 25 gm IVPUSH Q15M PRN; Protocol PRN Reason: per Hypoglycemia Standing Ord. Donepezil HCl (Donepezil Hcl 10 Mg Tablet) 10 mg PO BEDTIME [facility] Last Admin: 07/23/23 21:08 Dose: 10 mg Empagliflozin (Empagliflozin 25 Mg Tablet) 25 mg PO DAILY [facility] Last Admin: 07/24/23 11:22 Dose: 25 mg Famotidine (Famotidine 20 Mg Tablet) 20 mg PO DAILY [facility] Last Admin: 07/24/23 11:23 Dose: 20 mg Glucose (Glucose Gel 15 Gm Gel..Gram.) 15 gm PO Q15M PRN; Protocol PRN Reason: per Hypoglycemia Standing Ord. Haloperidol (Haloperidol 1 Mg Tablet) 2 mg PO BEDTIME [facility] Last Admin: 07/23/23 21:08 Dose: 2 mg Ibuprofen (Ibuprofen 600 Mg Tablet) 600 mg PO Q6H PRN PRN Reason: pain not relieved by tylenol Last Admin: 07/23/23 21:10 Dose: 600 mg Insulin Glargine (Insulin Glargine,Hum.Rec.Anlog 100 Unit/Ml 10 Ml Vial) 6 unit SUBCUT DAILY [facility] Last Admin: 07/24/23 10:24 Dose: 6 unit Insulin Human Lispro (Insulin Lispro 100 Unit/Ml 3 Ml Vial) 0 unit SUBCUT QIDACHS [facility]; Protocol Last Admin: 07/24/23 12:49 Dose: Not Given Loperamide HCl (Loperamide Hcl 2 Mg Capsule) 2 mg PO Q6H PRN PRN Reason: Loose Stool Last Admin: 07/15/23 11:14 Dose: 2 mg Magnesium Hydroxide (Milk Of Magnesia 30 Ml Oral.Susp) 30 ml PO DAILY PRN PRN Reason: Constipation Magnesium Oxide (Magnesium Oxide 400 Mg Tablet) [facility] Last Admin: 07/24/23 11:22 Dose: 400 mg Memantine (Memantine Hcl 10 Mg Tablet) 10 mg PO BID [facility] Last Admin: 07/24/23 11:22 Dose: 10 mg Metformin HCl (Metformin Hcl 1,000 Mg Tablet) 1,000 mg PO BID [facility] Last Admin: 07/24/23 11:23 Dose: 1,000 mg Olanzapine (Olanzapine 2.5 Mg Tablet) 2.5 mg PO Q4H PRN PRN Reason: anxiety/agitation Last Admin: 07/13/23 00:01 Dose: 2.5 mg Sertraline HCl (Sertraline Hcl 100 Mg Tablet) 100 mg PO DAILY BEN Last Admin: 07/24/23 11:23 Dose: 100 mg Trazodone HCl (Trazodone Hcl 50 Mg Tablet) 50 mg PO BEDTIME MRX1 PRN PRN Reason: Insomnia Last Admin: 07/23/23 21:10 Dose: 50 mg Allergies Allergies Allergy/AdvReac Type Severity Reaction Status Date / Time No Known Allergies Allergy Verified 03/23/23 18:13 Assessment & Plan Assessment & Plan (1) Alzheimer's dementia: Status: Acute Code(s): G30.9 - Alzheimer's disease, unspecified; F02.80 - Dementia in other diseases classified elsewhere, unspecified severity, without behavioral disturbance, psychotic disturbance, mood disturbance, and anxiety Assessment and Plan: 58 years old woman with relative young age onset at Alzheimer dementia but overall clinical picture is affected by significant depression, which continues to be the predominant feature of for clinical picture. Conventional dementia medicines such as donepezil or memantine can be tried but usually do not make significant difference. I would suggest memantine 10 mg twice a day and donepezil 10 mg daily. Recently a new dementia at drug for Alzheimer was approved but only for relatively mild dementia or mild cognitive impairment type of patients. She would not qualify for that drug. Plan 1. Continue same treatment. 2. Waiting for placement. Plan Patient with low magnesium met result discontinued core needing care with hospitalist team given p.o. magnesium monitor levels neuro consult Reason for continued inpatient stay Substantial Risk for: inability to function, rapid decompensation and med/psych decompensation Time Spent With Patient Time: Total time managing care of this patient today ___20_ minutes.
[2023-07-24 16:20] LABS: Glucose, Whole Blood 113 mg/dL (60-115)
[2023-07-24 18:00] VITALS: BP 122/60; PULSE 67; RESP 17; TEMP 36.6; O2SAT 98
[2023-07-24] MEDS: Acetaminophen 325 MG TABLET 650 MG PO (18:57)
[2023-07-24 19:53] LABS: Glucose, Whole Blood 144 mg/dL (60-115)
[2023-07-24] MEDS: Donepezil HCl 10 MG TABLET PO (20:09)
[2023-07-24] MEDS: HaloperidoL 1 MG TABLET 2 MG PO (20:10)
[2023-07-25 06:29] LABS: Glucose, Whole Blood 93 mg/dL (60-115)
[2023-07-25 08:00] VITALS: BP 149/70; PULSE 80; RESP 16; TEMP 36.9; O2SAT 96
[2023-07-25] MEDS: Famotidine 20 MG TABLET PO (09:34)
[2023-07-25] MEDS: Sertraline HCL 100 MG TABLET PO (09:34)
[2023-07-25] MEDS: Memantine HCl 10 MG TABLET PO ×2 (09:34→20:39)
[2023-07-25] MEDS: Magnesium Oxide 400 MG TABLET PO ×2 (09:34→18:43)
[2023-07-25] MEDS: Atorvastatin Calcium 40 MG TABLET PO (09:34)
[2023-07-25] MEDS: Empagliflozin 25 MG TABLET PO (09:35)
[2023-07-25] MEDS: metFORMIN HCl 1,000 MG TABLET 1000 MG PO ×2 (09:35→20:40)
[2023-07-25] MEDS: Insulin Glargine,Hum.rec.anlog 100 UNIT/ML 10 ML VIAL 6 UNIT SUBCUT (09:42)
[2023-07-25 11:33] LABS: Glucose, Whole Blood 142 mg/dL (60-115)
--- NOTE | 2023-07-25 13:41 | P.PNPSI_ITS ---
Subjective Subjective Date of Service: 07/25/23 Reason For Visit: hallucinations confusion Subjective Notes: Conditional Voluntary Interim History: The nursing staff reported no changes in her mental status. She is compliant with treatment she slept well. On interview the patient denies new symptoms, waiting for placement. Mental Status Exam Mental Status Exam Patient Appearance: Appropriate Patient Orientation: Person Level of Consciousness: Awake and Appropriate Patient Behavior: Guarded and Passive Mood Description: Withdrawn Affect Description: Constricted Patient Cognition Impaired: Yes Ability to Follow Directions: Fair Speech Pattern: Clear Hallucinations: None Delusions: Not Present Thought Process: Distracted and Slowed Thinking Thought Content: positive for [place] and positive for Poverty of Content Judgement: Fair Diagnostics Vital Signs (24Hr): Vital Signs - 24 hr 07/24/23 18:00 07/25/23 08:00 Temperature 97.8 F 98.4 F Pulse Rate 67 80 Respiratory Rate 17 16 Blood Pressure 122/60 149/70 H Pulse Oximetry 98 96 Oxygen Delivery Method Room Air Room Air BMI result Body Mass Index 27.7 Labs 07/03/23 18:16 07/22/23 07:46 Labs: Laboratory Results - last 48 hr 07/23/23 07/23/23 07/24/23 16:43 20:09 05:35 POC Glucose 112 136 H 98 07/24/23 07/24/23 07/24/23 11:31 16:16 19:50 POC Glucose 96 113 144 H 07/25/23 07/25/23 06:23 11:30 POC Glucose 93 142 H Imaging Radiology Impressions: ITS Impressions Brain MRI 04/03/23 15:30 IMPRESSION: No acute infarct, mass lesion, intracranial hemorrhage, or evidence of hydrocephalus. Mild nonspecific T2/FLAIR hyperintensity in the cerebral white matter and danny presumably on the basis of chronic microangiopathy. Cervical Spine CT 07/03/23 20:12 IMPRESSION: No acute findings within the cervical spine. The cervical central canal is not well assessed on this CT due to artifact. If weakness persists, a cervical spine MRI would be more sensitive in assessment. Medications Medications Current Medications Acetaminophen (Acetaminophen 325 Mg Tablet) 650 mg PO Q6H PRN PRN Reason: Headache/Pain Mild Scale (1-3) Last Admin: 07/24/23 18:57 Dose: 650 mg Al Hydroxide/Mg Hydroxide (Magnesium Hydrox/Alum Hydrox 30 Ml Oral.Susp) 30 ml PO Q6H PRN PRN Reason: Heartburn/Nausea Atorvastatin Calcium (Atorvastatin Calcium 40 Mg Tablet) 40 mg PO DAILY [facility] Last Admin: 07/25/23 09:34 Dose: 40 mg Dextrose (Dextrose 50 % 25 Gm/50 Ml Syringe) 25 gm IVPUSH Q15M PRN; Protocol PRN Reason: per Hypoglycemia Standing Ord. Donepezil HCl (Donepezil Hcl 10 Mg Tablet) 10 mg PO BEDTIME [facility] Last Admin: 07/24/23 20:09 Dose: 10 mg Empagliflozin (Empagliflozin 25 Mg Tablet) 25 mg PO DAILY [facility] Last Admin: 07/25/23 09:35 Dose: 25 mg Famotidine (Famotidine 20 Mg Tablet) 20 mg PO DAILY [facility] Last Admin: 07/25/23 09:34 Dose: 20 mg Glucose (Glucose Gel 15 Gm Gel..Gram.) 15 gm PO Q15M PRN; Protocol PRN Reason: per Hypoglycemia Standing Ord. Haloperidol (Haloperidol 1 Mg Tablet) 2 mg PO BEDTIME [facility] Last Admin: 07/24/23 20:10 Dose: 2 mg Ibuprofen (Ibuprofen 600 Mg Tablet) 600 mg PO Q6H PRN PRN Reason: pain not relieved by tylenol Last Admin: 07/23/23 21:10 Dose: 600 mg Insulin Glargine (Insulin Glargine,Hum.Rec.Anlog 100 Unit/Ml 10 Ml Vial) 6 unit SUBCUT DAILY [facility] Last Admin: 07/25/23 09:42 Dose: 6 unit Insulin Human Lispro (Insulin Lispro 100 Unit/Ml 3 Ml Vial) 0 unit SUBCUT QIDACHS [facility]; Protocol Last Admin: 07/25/23 11:31 Dose: Not Given Loperamide HCl (Loperamide Hcl 2 Mg Capsule) 2 mg PO Q6H PRN PRN Reason: Loose Stool Last Admin: 07/15/23 11:14 Dose: 2 mg Magnesium Hydroxide (Milk Of Magnesia 30 Ml Oral.Susp) 30 ml PO DAILY PRN PRN Reason: Constipation Magn[facility] Ox[facility] ([facility] 400 Mg [facility]t) [facility] Last Admin: 07/25/23 09:34 Dose: 400 mg Memantine (Memantine Hcl 10 Mg Tablet) 10 mg PO BID [facility] Last Admin: 07/25/23 09:34 Dose: 10 mg Metformin HCl (Metformin Hcl 1,000 Mg Tablet) 1,000 mg PO BID [facility] Last Admin: 07/25/23 09:35 Dose: 1,000 mg Olanzapine (Olanzapine 2.5 Mg Tablet) 2.5 mg PO Q4H PRN PRN Reason: anxiety/agitation Last Admin: 07/13/23 00:01 Dose: 2.5 mg Sertraline HCl (Sertraline Hcl 100 Mg Tablet) 100 mg PO DAILY [facility] Last Admin: 07/25/23 09:34 Dose: 100 mg Trazodone HCl (Trazodone Hcl 50 Mg Tablet) 50 mg PO BEDTIME MRX1 PRN PRN Reason: Insomnia Last Admin: 07/23/23 21:10 Dose: 50 mg Allergies Allergies Allergy/AdvReac Type Severity Reaction Status Date / Time No Known Allergies Allergy Verified 03/23/23 18:13 Assessment & Plan Assessment & Plan (1) Alzheimer's dementia: Status: Acute Code(s): G30.9 - Alzheimer's disease, unspecified; F02.80 - Dementia in other diseases classified elsewhere, unspecified severity, without behavioral disturbance, psychotic disturbance, mood disturbance, and anxiety Assessment and Plan: 58 years old woman with relative young age onset at Alzheimer dementia but overall clinical picture is affected by significant depression, which continues to be the predominant feature of for clinical picture. Conventional dementia medicines such as donepezil or memantine can be tried but usually do not make significant difference. I would suggest memantine 10 mg twice a day and donepezil 10 mg daily. Recently a new dementia at drug for Alzheimer was approved but only for relatively mild dementia or mild cognitive impairment type of patients. She would not qualify for that drug. Plan 1. Continue same treatment. 2. Waiting for placement. Plan Patient with low magnesium met result discontinued core needing care with hospitalist team given p.o. magnesium monitor levels neuro consult Reason for continued inpatient stay Substantial Risk for: inability to function, rapid decompensation and med/psych decompensation Time Spent With Patient Time: Total time managing care of this patient today __20__ minutes.
[2023-07-25 16:36] LABS: Glucose, Whole Blood 110 mg/dL (60-115)
[2023-07-25] MEDS: Acetaminophen 325 MG TABLET 650 MG PO (16:54)
[2023-07-25 19:00] VITALS: BP 139/59; PULSE 67; RESP 18; TEMP 36.3; O2SAT 96
[2023-07-25] MEDS: HaloperidoL 1 MG TABLET 2 MG PO (20:38)
[2023-07-25] MEDS: Donepezil HCl 10 MG TABLET PO (20:39)
[2023-07-25 21:32] LABS: Glucose, Whole Blood 110 mg/dL (60-115)
[2023-07-26 06:10] LABS: Glucose, Whole Blood 102 mg/dL (60-115)
[2023-07-26 08:34] VITALS: BP 146/76; PULSE 76; RESP 14; TEMP 37.4; O2SAT 97
[2023-07-26] MEDS: Insulin Glargine,Hum.rec.anlog 100 UNIT/ML 10 ML VIAL 6 UNIT SUBCUT (10:04)
[2023-07-26] MEDS: Magnesium Oxide 400 MG TABLET PO ×2 (10:06→17:25)
[2023-07-26] MEDS: Empagliflozin 25 MG TABLET PO (10:06)
[2023-07-26] MEDS: Memantine HCl 10 MG TABLET PO ×2 (10:07→20:18)
[2023-07-26] MEDS: Famotidine 20 MG TABLET PO (10:07)
[2023-07-26] MEDS: Sertraline HCL 100 MG TABLET PO (10:07)
[2023-07-26] MEDS: Atorvastatin Calcium 40 MG TABLET PO (10:07)
[2023-07-26] MEDS: metFORMIN HCl 1,000 MG TABLET 1000 MG PO ×2 (10:07→20:18)
[2023-07-26 11:33] LABS: Glucose, Whole Blood 130 mg/dL (60-115)
--- NOTE | 2023-07-26 12:41 | P.PNPSI_ITS ---
Subjective Subjective Date of Service: 07/26/23 Reason For Visit: hallucinations confusion Subjective Notes: Conditional Voluntary Interim History: The nursing staff reported the patient had been fully compliant with treatment, no changes in her mental status. On interview the patient is pleasantly confused, waiting for placement. Mental Status Exam Mental Status Exam Patient Appearance: Well Grooomed and Appropriate Patient Orientation: Person and Situation Level of Consciousness: Awake and Appropriate Patient Behavior: Guarded and Passive Mood Description: Withdrawn Affect Description: Blunted Patient Cognition Impaired: Yes Ability to Follow Directions: Good Speech Pattern: Clear Hallucinations: None Delusions: Not Present Thought Process: Distracted and Evasive Thought Content: positive for [place] and positive for Poverty of Content Judgement: Poor Diagnostics Vital Signs (24Hr): Vital Signs - 24 hr 07/25/23 19:00 07/26/23 08:34 Temperature 97.3 F 99.4 F Pulse Rate 67 76 Respiratory Rate 18 14 Blood Pressure 139/59 L 146/76 H Pulse Oximetry 96 97 Oxygen Delivery Method Room Air Room Air BMI result Body Mass Index 27.7 Labs 07/03/23 18:16 07/22/23 07:46 Labs: Laboratory Results - last 48 hr 07/24/23 07/24/23 07/25/23 16:16 19:50 06:23 POC Glucose 113 144 H 93 07/25/23 07/25/23 07/25/23 11:30 16:33 21:26 POC Glucose 142 H 110 110 07/26/23 07/26/23 06:05 11:27 POC Glucose 102 130 H Imaging Radiology Impressions: ITS Impressions Brain MRI 04/03/23 15:30 IMPRESSION: No acute infarct, mass lesion, intracranial hemorrhage, or evidence of hydrocephalus. Mild nonspecific T2/FLAIR hyperintensity in the cerebral white matter and danny presumably on the basis of chronic microangiopathy. Cervical Spine CT 07/03/23 20:12 IMPRESSION: No acute findings within the cervical spine. The cervical central canal is not well assessed on this CT due to artifact. If weakness persists, a cervical spine MRI would be more sensitive in assessment. Medications Medications Current Medications Acetaminophen (Acetaminophen 325 Mg Tablet) 650 mg PO Q6H PRN PRN Reason: Headache/Pain Mild Scale (1-3) Last Admin: 07/25/23 16:54 Dose: 650 mg Al Hydroxide/Mg Hydroxide (Magnesium Hydrox/Alum Hydrox 30 Ml Oral.Susp) 30 ml PO Q6H PRN PRN Reason: Heartburn/Nausea Atorvastatin Calcium (Atorvastatin Calcium 40 Mg Tablet) 40 mg PO DAILY [facility] Last Admin: 07/26/23 10:07 Dose: 40 mg Dextrose (Dextrose 50 % 25 Gm/50 Ml Syringe) 25 gm IVPUSH Q15M PRN; Protocol PRN Reason: per Hypoglycemia Standing Ord. Donepezil HCl (Donepezil Hcl 10 Mg Tablet) 10 mg PO BEDTIME [facility] Last Admin: 07/25/23 20:39 Dose: 10 mg Empagliflozin (Empagliflozin 25 Mg Tablet) 25 mg PO DAILY [facility] Last Admin: 07/26/23 10:06 Dose: 25 mg Famotidine (Famotidine 20 Mg Tablet) 20 mg PO DAILY [facility] Last Admin: 07/26/23 10:07 Dose: 20 mg Glucose (Glucose Gel 15 Gm Gel..Gram.) 15 gm PO Q15M PRN; Protocol PRN Reason: per Hypoglycemia Standing Ord. Haloperidol (Haloperidol 1 Mg Tablet) 2 mg PO BEDTIME [facility] Last Admin: 07/25/23 20:38 Dose: 2 mg Ibuprofen (Ibuprofen 600 Mg Tablet) 600 mg PO Q6H PRN PRN Reason: pain not relieved by tylenol Last Admin: 07/23/23 21:10 Dose: 600 mg Insulin Glargine (Insulin Glargine,Hum.Rec.Anlog 100 Unit/Ml 10 Ml Vial) 6 unit SUBCUT DAILY [facility] Last Admin: 07/26/23 10:04 Dose: 6 unit Insulin Human Lispro (Insulin Lispro 100 Unit/Ml 3 Ml Vial) 0 unit SUBCUT QIDACHS [facility]; Protocol Last Admin: 07/26/23 10:07 Dose: Not Given Loperamide HCl (Loperamide Hcl 2 Mg Capsule) 2 mg PO Q6H PRN PRN Reason: Loose Stool Last Admin: 07/15/23 11:14 Dose: 2 mg Magnesium Hydroxide (Milk Of Magnesia 30 Ml Oral.Susp) 30 ml PO DAILY PRN PRN Reason: Constipation Magnesium Oxide (Magnesium Oxide 400 Mg Tablet) [facility] Last Admin: 07/26/23 10:06 Dose: 400 mg Memantine (Memantine Hcl 10 Mg Tablet) 10 mg PO BID [facility] Last Admin: 07/26/23 10:07 Dose: 10 mg Metformin HCl (Metformin Hcl 1,000 Mg Tablet) 1,000 mg PO BID [facility] Last Admin: 07/26/23 10:07 Dose: 1,000 mg Olanzapine (Olanzapine 2.5 Mg Tablet) 2.5 mg PO Q4H PRN PRN Reason: anxiety/agitation Last Admin: 07/13/23 00:01 Dose: 2.5 mg Sertraline HCl (Sertraline Hcl 100 Mg Tablet) 100 mg PO DAILY [facility] Last Admin: 07/26/23 10:07 Dose: 100 mg Trazodone HCl (Trazodone Hcl 50 Mg Tablet) 50 mg PO BEDTIME MRX1 PRN PRN Reason: Insomnia Last Admin: 07/23/23 21:10 Dose: 50 mg Allergies Allergies Allergy/AdvReac Type Severity Reaction Status Date / Time No Known Allergies Allergy Verified 03/23/23 18:13 Assessment & Plan Assessment & Plan (1) Alzheimer's dementia: Status: Acute Code(s): G30.9 - Alzheimer's disease, unspecified; F02.80 - Dementia in other diseases classified elsewhere, unspecified severity, without behavioral disturbance, psychotic disturbance, mood disturbance, and anxiety Assessment and Plan: 58 years old woman with relative young age onset at Alzheimer dementia but overall clinical picture is affected by significant depression, which continues to be the predominant feature of for clinical picture. Conventional dementia medicines such as donepezil or memantine can be tried but usually do not make significant difference. I would suggest memantine 10 mg twice a day and donepezil 10 mg daily. Recently a new dementia at drug for Alzheimer was approved but only for relatively mild dementia or mild cognitive impairment type of patients. She would not qualify for that drug. Plan 1. Continue same treatment. 2. Waiting for placement. Plan Patient with low magnesium met result discontinued core needing care with hospitalist team given p.o. magnesium monitor levels neuro consult Reason for continued inpatient stay Substantial Risk for: inability to function, rapid decompensation and med/psych decompensation Time Spent With Patient Time: Total time managing care of this patient today __20__ minutes.
[2023-07-26 14:25] VITALS: BMI 27.7
[2023-07-26 16:41] LABS: Glucose, Whole Blood 97 mg/dL (60-115)
[2023-07-26 20:00] VITALS: BP 141/73; PULSE 67; RESP 16; TEMP 35.8; O2SAT 99
[2023-07-26 20:15] LABS: Glucose, Whole Blood 113 mg/dL (60-115)
[2023-07-26] MEDS: HaloperidoL 1 MG TABLET 2 MG PO (20:17)
[2023-07-26] MEDS: traZODone HCL 50 MG TABLET PO (20:17)
[2023-07-26] MEDS: Donepezil HCl 10 MG TABLET PO (20:18)
[2023-07-27 06:00] VITALS: BP 128/84; PULSE 68; RESP 16; TEMP 36.8; O2SAT 95
[2023-07-27 06:26] LABS: Glucose, Whole Blood 83 mg/dL (60-115)
[2023-07-27] MEDS: Empagliflozin 25 MG TABLET PO (08:27)
[2023-07-27] MEDS: Memantine HCl 10 MG TABLET PO ×2 (08:27→20:20)
[2023-07-27] MEDS: Magnesium Oxide 400 MG TABLET PO ×2 (08:27→16:38)
[2023-07-27] MEDS: Sertraline HCL 100 MG TABLET PO (08:27)
[2023-07-27] MEDS: Atorvastatin Calcium 40 MG TABLET PO (08:27)
[2023-07-27] MEDS: metFORMIN HCl 1,000 MG TABLET 1000 MG PO ×2 (08:27→20:20)
[2023-07-27] MEDS: Famotidine 20 MG TABLET PO (08:28)
[2023-07-27 11:44] LABS: Glucose, Whole Blood 90 mg/dL (60-115)
[2023-07-27 14:48] VITALS: BMI 27.5
--- NOTE | 2023-07-27 14:54 | P.PNPSI_ITS ---
Subjective Subjective Date of Service: 07/27/23 Reason For Visit: hallucinations confusion Subjective Notes: Conditional Voluntary Interim History: The nursing staff reported no changes in her mental status she slept well. On interview no changes in her mental status, waiting for placement. Mental Status Exam Mental Status Exam Patient Appearance: Well Grooomed and Appropriate Patient Orientation: Person Level of Consciousness: Awake Patient Behavior: Guarded Mood Description: Calm Affect Description: Blunted Patient Cognition Impaired: Yes Ability to Follow Directions: Good Speech Pattern: Clear Hallucinations: None Delusions: Not Present Thought Content: positive for [place] and positive for Poverty of Content Judgement: Poor Diagnostics Vital Signs (24Hr): Vital Signs - 24 hr 07/26/23 20:00 07/27/23 06:00 Temperature 96.5 F L 98.2 F Pulse Rate 67 68 Respiratory Rate 16 16 Blood Pressure 141/73 H 128/84 Pulse Oximetry 99 95 Oxygen Delivery Method Room Air Room Air BMI result Body Mass Index 27.5 Labs 07/03/23 18:16 07/22/23 07:46 Labs: Laboratory Results - last 48 hr 07/25/23 07/25/23 07/26/23 16:33 21:26 06:05 POC Glucose 110 110 102 07/26/23 07/26/23 07/26/23 11:27 16:29 20:05 POC Glucose 130 H 97 113 07/27/23 07/27/23 06:21 11:36 POC Glucose 83 90 Imaging Radiology Impressions: ITS Impressions Brain MRI 04/03/23 15:30 IMPRESSION: No acute infarct, mass lesion, intracranial hemorrhage, or evidence of hydrocephalus. Mild nonspecific T2/FLAIR hyperintensity in the cerebral white matter and danny presumably on the basis of chronic microangiopathy. Cervical Spine CT 07/03/23 20:12 IMPRESSION: No acute findings within the cervical spine. The cervical central canal is not well assessed on this CT due to artifact. If weakness persists, a cervical spine MRI would be more sensitive in assessment. Medications Medications Current Medications Acetaminophen (Acetaminophen 325 Mg Tablet) 650 mg PO Q6H PRN PRN Reason: Headache/Pain Mild Scale (1-3) Last Admin: 07/25/23 16:54 Dose: 650 mg Al Hydroxide/Mg Hydroxide (Magnesium Hydrox/Alum Hydrox 30 Ml Oral.Susp) 30 ml PO Q6H PRN PRN Reason: Heartburn/Nausea Atorvastatin Calcium (Atorvastatin Calcium 40 Mg Tablet) 40 mg PO DAILY [facility] Last Admin: 07/27/23 08:27 Dose: 40 mg Dextrose (Dextrose 50 % 25 Gm/50 Ml Syringe) 25 gm IVPUSH Q15M PRN; Protocol PRN Reason: per Hypoglycemia Standing Ord. Donepezil HCl (Donepezil Hcl 10 Mg Tablet) 10 mg PO BEDTIME [facility] Last Admin: 07/26/23 20:18 Dose: 10 mg Empagliflozin (Empagliflozin 25 Mg Tablet) 25 mg PO DAILY [facility] Last Admin: 07/27/23 08:27 Dose: 25 mg Famotidine (Famotidine 20 Mg Tablet) 20 mg PO DAILY [facility] Last Admin: 07/27/23 08:28 Dose: 20 mg Glucose (Glucose Gel 15 Gm Gel..Gram.) 15 gm PO Q15M PRN; Protocol PRN Reason: per Hypoglycemia Standing Ord. Haloperidol (Haloperidol 1 Mg Tablet) 2 mg PO BEDTIME [facility] Last Admin: 07/26/23 20:17 Dose: 2 mg Ibuprofen (Ibuprofen 600 Mg Tablet) 600 mg PO Q6H PRN PRN Reason: pain not relieved by tylenol Last Admin: 07/23/23 21:10 Dose: 600 mg Insulin Glargine (Insulin Glargine,Hum.Rec.Anlog 100 Unit/Ml 10 Ml Vial) 6 unit SUBCUT DAILY [facility] Last Admin: 07/27/23 08:28 Dose: Not Given Insulin Human Lispro (Insulin Lispro 100 Unit/Ml 3 Ml Vial) 0 unit SUBCUT QIDACHS [facility]; Protocol Last Admin: 07/27/23 12:12 Dose: Not Given Loperamide HCl (Loperamide Hcl 2 Mg Capsule) 2 mg PO Q6H PRN PRN Reason: Loose Stool Last Admin: 07/15/23 11:14 Dose: 2 mg Magnesium Hydroxide (Milk Of Magnesia 30 Ml Oral.Susp) 30 ml PO DAILY PRN PRN Reason: Constipation Magnesium Ox[facility] ([facility] 400 Mg [facility]t) [facility] Last Admin: 07/27/23 08:27 Dose: 400 mg Memantine (Memantine Hcl 10 Mg Tablet) 10 mg PO BID [facility] Last Admin: 07/27/23 08:27 Dose: 10 mg Metformin HCl (Metformin Hcl 1,000 Mg Tablet) 1,000 mg PO BID [facility] Last Admin: 07/27/23 08:27 Dose: 1,000 mg Olanzapine (Olanzapine 2.5 Mg Tablet) 2.5 mg PO Q4H PRN PRN Reason: anxiety/agitation Last Admin: 07/13/23 00:01 Dose: 2.5 mg Sertraline HCl (Sertraline Hcl 100 Mg Tablet) 100 mg PO DAILY [facility] Last Admin: 07/27/23 08:27 Dose: 100 mg Trazodone HCl (Trazodone Hcl 50 Mg Tablet) 50 mg PO BEDTIME MRX1 PRN PRN Reason: Insomnia Last Admin: 07/26/23 20:17 Dose: 50 mg Allergies Allergies Allergy/AdvReac Type Severity Reaction Status Date / Time No Known Allergies Allergy Verified 03/23/23 18:13 Assessment & Plan Assessment & Plan (1) Alzheimer's dementia: Status: Acute Code(s): G30.9 - Alzheimer's disease, unspecified; F02.80 - Dementia in other diseases classified elsewhere, unspecified severity, without behavioral disturbance, psychotic disturbance, mood disturbance, and anxiety Assessment and Plan: 58 years old woman with relative young age onset at Alzheimer dementia but overall clinical picture is affected by significant depression, which continues to be the predominant feature of for clinical picture. Conventional dementia medicines such as donepezil or memantine can be tried but usually do not make significant difference. I would suggest memantine 10 mg twice a day and donepezil 10 mg daily. Recently a new dementia at drug for Alzheimer was approved but only for relatively mild dementia or mild cognitive impairment type of patients. She would not qualify for that drug. Plan 1. Continue same treatment. 2. Waiting for placement. Plan Patient with low magnesium met result discontinued core needing care with hospitalist team given p.o. magnesium monitor levels neuro consult Reason for continued inpatient stay Substantial Risk for: inability to function, rapid decompensation and med/psych decompensation Time Spent With Patient Time: Total time managing care of this patient today _20___ minutes.
[2023-07-27 16:31] LABS: Glucose, Whole Blood 96 mg/dL (60-115)
[2023-07-27 20:01] LABS: Glucose, Whole Blood 141 mg/dL (60-115)
[2023-07-27 20:10] VITALS: BP 140/67; PULSE 75; RESP 17; TEMP 36.2; O2SAT 97
[2023-07-27] MEDS: HaloperidoL 1 MG TABLET 2 MG PO (20:20)
[2023-07-27] MEDS: traZODone HCL 50 MG TABLET PO (20:20)
[2023-07-27] MEDS: Donepezil HCl 10 MG TABLET PO (20:20)
[2023-07-28 06:52] LABS: Glucose, Whole Blood 82 mg/dL (60-115)
[2023-07-28 07:55] VITALS: BP 120/66; PULSE 66; RESP 18; TEMP 36.4; O2SAT 98
[2023-07-28 08:52] LABS: Creatinine Clr Calc Pharmacy 85.2; Estimated Glomerular Filt Rate > 60
[2023-07-28] MEDS: Memantine HCl 10 MG TABLET PO ×2 (09:25→20:23)
[2023-07-28] MEDS: Magnesium Oxide 400 MG TABLET PO ×2 (09:25→16:51)
[2023-07-28] MEDS: Famotidine 20 MG TABLET PO (09:25)
[2023-07-28] MEDS: metFORMIN HCl 1,000 MG TABLET 1000 MG PO ×2 (09:25→20:22)
[2023-07-28] MEDS: Empagliflozin 25 MG TABLET PO (09:26)
[2023-07-28] MEDS: Atorvastatin Calcium 40 MG TABLET PO (09:26)
[2023-07-28] MEDS: Sertraline HCL 100 MG TABLET PO (09:26)
[2023-07-28 11:24] LABS: Glucose, Whole Blood 91 mg/dL (60-115)
--- NOTE | 2023-07-28 14:13 | HO.PSYCHPN ---
Subjective Subjective Date of Service: 07/28/23 Reason For Visit: hallucinations confusion Subjective Notes: Conditional Voluntary Interim History: The nursing staff reported the patient had been compliant with treatment denies suicidality or hallucinations. The occupational therapist reported that she is not wearing the collar at times because it feels uncomfortable. The social sciences chair reported that her daughter called the for several months and as for more information. On interview the patient denies new symptoms pleasantly confused, we decided to lower her Haldol to 1 mg p.o. q.h.s. since the patient had not been psychotic and stable with a lower dose of Haldol for several weeks. Mental Status Exam Mental Status Exam Patient Appearance: Appropriate Patient Orientation: Person and Situation Level of Consciousness: Awake and Appropriate Patient Behavior: Guarded and Passive Mood Description: Withdrawn Affect Description: Constricted Patient Cognition Impaired: Yes Ability to Follow Directions: Fair Speech Pattern: Clear Hallucinations: None Delusions: Not Present Thought Process: Distracted and Slowed Thinking Thought Content: positive for Poverty of Content Judgement: Fair Diagnostics Vital Signs (24Hr): Vital Signs - 24 hr 07/27/23 20:10 07/28/23 07:55 Temperature 97.1 F 97.6 F Pulse Rate 75 66 Respiratory Rate 17 18 Blood Pressure 140/67 H 120/66 Pulse Oximetry 97 98 Oxygen Delivery Method Room Air Room Air BMI result Body Mass Index 27.5 Labs 07/03/23 18:16 07/28/23 08:27 Labs: Laboratory Results - last 48 hr 07/26/23 07/26/23 07/27/23 16:29 20:05 06:21 Creatinine Estim Creat Clear Calc Estimated GFR POC Glucose 97 113 83 07/27/23 07/27/23 07/27/23 11:36 16:16 19:36 Creatinine Estim Creat Clear Calc Estimated GFR POC Glucose 90 96 141 H 07/28/23 07/28/23 07/28/23 06:32 08:27 11:21 Creatinine 0.66 Estim Creat Clear Calc 85.2 Estimated GFR > 60 POC Glucose 82 91 Imaging Radiology Impressions: ITS Impressions Brain MRI 04/03/23 15:30 IMPRESSION: No acute infarct, mass lesion, intracranial hemorrhage, or evidence of hydrocephalus. Mild nonspecific T2/FLAIR hyperintensity in the cerebral white matter and danny presumably on the basis of chronic microangiopathy. Cervical Spine CT 07/03/23 20:12 IMPRESSION: No acute findings within the cervical spine. The cervical central canal is not well assessed on this CT due to artifact. If weakness persists, a cervical spine MRI would be more sensitive in assessment. Medications Medications Current Medications Acetaminophen (Acetaminophen 325 Mg Tablet) 650 mg PO Q6H PRN PRN Reason: Headache/Pain Mild Scale (1-3) Last Admin: 07/25/23 16:54 Dose: 650 mg Al Hydroxide/Mg Hydroxide (Magnesium Hydrox/Alum Hydrox 30 Ml Oral.Susp) 30 ml PO Q6H PRN PRN Reason: Heartburn/Nausea Atorvastatin Calcium (Atorvastatin Calcium 40 Mg Tablet) 40 mg PO DAILY [facility] Last Admin: 07/28/23 09:26 Dose: 40 mg Dextrose (Dextrose 50 % 25 Gm/50 Ml Syringe) 25 gm IVPUSH Q15M PRN; Protocol PRN Reason: per Hypoglycemia Standing Ord. Donepezil HCl (Donepezil Hcl 10 Mg Tablet) 10 mg PO BEDTIME [facility] Last Admin: 07/27/23 20:20 Dose: 10 mg Empagliflozin (Empagliflozin 25 Mg Tablet) 25 mg PO DAILY [facility] Last Admin: 07/28/23 09:26 Dose: 25 mg Famotidine (Famotidine 20 Mg Tablet) 20 mg PO DAILY [facility] Last Admin: 07/28/23 09:25 Dose: 20 mg Glucose (Glucose Gel 15 Gm Gel..Gram.) 15 gm PO Q15M PRN; Protocol PRN Reason: per Hypoglycemia Standing Ord. Haloperidol (Haloperidol 1 Mg Tablet) 1 mg PO BEDTIME [facility] Ibuprofen (Ibuprofen 600 Mg Tablet) 600 mg PO Q6H PRN PRN Reason: pain not relieved by tylenol Last Admin: 07/23/23 21:10 Dose: 600 mg Insulin Glargine (Insulin Glargine,Hum.Rec.Anlog 100 Unit/Ml 10 Ml Vial) 6 unit SUBCUT DAILY [facility] Last Admin: 07/28/23 08:56 Dose: Not Given Insulin Human Lispro (Insulin Lispro 100 Unit/Ml 3 Ml Vial) 0 unit SUBCUT QIDACHS [facility]; Protocol Last Admin: 07/28/23 11:28 Dose: Not Given Loperamide HCl (Loperamide Hcl 2 Mg Capsule) 2 mg PO Q6H PRN PRN Reason: Loose Stool Last Admin: 07/15/23 11:14 Dose: 2 mg Magnesium Hydroxide (Milk Of Magnesia 30 Ml Oral.Susp) 30 ml PO DAILY PRN PRN Reason: Constipation Magnesium Oxide ([facility] 400 Mg Tablet) [facility] Last Admin: 07/28/23 09:25 Dose: 400 mg Memantine (Memantine Hcl 10 Mg Tablet) 10 mg PO BID [facility] Last Admin: 07/28/23 09:25 Dose: 10 mg Metformin HCl (Metformin Hcl 1,000 Mg Tablet) 1,000 mg PO BID [facility] Last Admin: 07/28/23 09:25 Dose: 1,000 mg Olanzapine (Olanzapine 2.5 Mg Tablet) 2.5 mg PO Q4H PRN PRN Reason: anxiety/agitation Last Admin: 07/13/23 00:01 Dose: 2.5 mg Sertraline HCl (Sertraline Hcl 100 Mg Tablet) 100 mg PO DAILY [facility] Last Admin: 07/28/23 09:26 Dose: 100 mg Trazodone HCl (Trazodone Hcl 50 Mg Tablet) 50 mg PO BEDTIME MRX1 PRN PRN Reason: Insomnia Last Admin: 07/27/23 20:20 Dose: 50 mg Allergies Allergies Allergy/AdvReac Type Severity Reaction Status Date / Time No Known Allergies Allergy Verified 03/23/23 18:13 Assessment & Plan Assessment & Plan (1) Alzheimer's dementia: Status: Acute Code(s): G30.9 - Alzheimer's disease, unspecified; F02.80 - Dementia in other diseases classified elsewhere, unspecified severity, without behavioral disturbance, psychotic disturbance, mood disturbance, and anxiety Assessment and Plan: 58 years old woman with relative young age onset at Alzheimer dementia but overall clinical picture is affected by significant depression, which continues to be the predominant feature of for clinical picture. Conventional dementia medicines such as donepezil or memantine can be tried but usually do not make significant difference. I would suggest memantine 10 mg twice a day and donepezil 10 mg daily. Recently a new dementia at drug for Alzheimer was approved but only for relatively mild dementia or mild cognitive impairment type of patients. She would not qualify for that drug. Plan 1. Continue same treatment. 2. Waiting for placement. 3. Lower Haldol to 1 mg p.o. q.h.s. on July 28 Plan Patient with low magnesium met result discontinued core needing care with hospitalist team given p.o. magnesium monitor levels neuro consult Reason for continued inpatient stay Substantial Risk for: inability to function, rapid decompensation and med/psych decompensation Time Spent With Patient Time: Total time managing care of this patient today __20__ minutes.
[2023-07-28 16:19] LABS: Glucose, Whole Blood 81 mg/dL (60-115)
[2023-07-28 19:40] VITALS: BP 129/67; PULSE 75; RESP 16; TEMP 36.7; O2SAT 99
[2023-07-28 19:51] LABS: Glucose, Whole Blood 170 mg/dL (60-115)
[2023-07-28] MEDS: Donepezil HCl 10 MG TABLET PO (20:22)
[2023-07-28] MEDS: Acetaminophen 325 MG TABLET 650 MG PO (20:23)
[2023-07-28] MEDS: HaloperidoL 1 MG TABLET PO (20:23)
[2023-07-28] MEDS: Insulin Lispro 100 UNIT/ML 3 ML VIAL SUBCUT (20:24)
[2023-07-29 06:19] LABS: Glucose, Whole Blood 89 mg/dL (60-115)
[2023-07-29 08:00] VITALS: BP 135/72; PULSE 70; RESP 16; TEMP 36.4; O2SAT 96
--- NOTE | 2023-07-29 08:20 | P.PNPSI_ITS ---
Subjective Subjective Date of Service: 07/29/23 Reason For Visit: hallucinations confusion Subjective Notes: Conditional Voluntary Interim History: The nursing staff reported the patient slept well last night, she has been medication and meal compliant. Her remains isolative at times. On interview the patient denies new symptoms, waiting for placement. Mental Status Exam Mental Status Exam Patient Appearance: Appropriate Patient Orientation: Person Level of Consciousness: Awake and Appropriate Patient Behavior: Guarded and Passive Mood Description: Withdrawn Affect Description: Constricted Patient Cognition Impaired: Yes Ability to Follow Directions: Good Speech Pattern: Clear Hallucinations: None Delusions: Not Present Thought Process: Distracted Thought Content: positive for [place] and positive for Poverty of Content Judgement: Poor Diagnostics Vital Signs (24Hr): Vital Signs - 24 hr 07/28/23 19:40 Temperature 98.0 F Pulse Rate 75 Respiratory Rate 16 Blood Pressure 129/67 Pulse Oximetry 99 Oxygen Delivery Method Room Air BMI result Body Mass Index 27.5 Labs 07/03/23 18:16 07/28/23 08:27 Labs: Laboratory Results - last 48 hr 07/27/23 07/27/23 07/27/23 11:36 16:16 19:36 Creatinine Estim Creat Clear Calc Estimated GFR POC Glucose 90 96 141 H 07/28/23 07/28/23 07/28/23 06:32 08:27 11:21 Creatinine 0.66 Estim Creat Clear Calc 85.2 Estimated GFR > 60 POC Glucose 82 91 07/28/23 07/28/23 07/29/23 16:15 19:47 06:14 Creatinine Estim Creat Clear Calc Estimated GFR POC Glucose 81 170 H 89 Imaging Radiology Impressions: ITS Impressions Brain MRI 04/03/23 15:30 IMPRESSION: No acute infarct, mass lesion, intracranial hemorrhage, or evidence of hydrocephalus. Mild nonspecific T2/FLAIR hyperintensity in the cerebral white matter and danny presumably on the basis of chronic microangiopathy. Cervical Spine CT 07/03/23 20:12 IMPRESSION: No acute findings within the cervical spine. The cervical central canal is not well assessed on this CT due to artifact. If weakness persists, a cervical spine MRI would be more sensitive in assessment. Medications Medications Current Medications Acetaminophen (Acetaminophen 325 Mg Tablet) 650 mg PO Q6H PRN PRN Reason: Headache/Pain Mild Scale (1-3) Last Admin: 07/28/23 20:23 Dose: 650 mg Al Hydroxide/Mg Hydroxide (Magnesium Hydrox/Alum Hydrox 30 Ml Oral.Susp) 30 ml PO Q6H PRN PRN Reason: Heartburn/Nausea Atorvastatin Calcium (Atorvastatin Calcium 40 Mg Tablet) 40 mg PO DAILY [facility] Last Admin: 07/28/23 09:26 Dose: 40 mg Dextrose (Dextrose 50 % 25 Gm/50 Ml Syringe) 25 gm IVPUSH Q15M PRN; Protocol PRN Reason: per Hypoglycemia Standing Ord. Donepezil HCl (Donepezil Hcl 10 Mg Tablet) 10 mg PO BEDTIME [facility] Last Admin: 07/28/23 20:22 Dose: 10 mg Empagliflozin (Empagliflozin 25 Mg Tablet) 25 mg PO DAILY [facility] Last Admin: 07/28/23 09:26 Dose: 25 mg Famotidine (Famotidine 20 Mg Tablet) 20 mg PO DAILY [facility] Last Admin: 07/28/23 09:25 Dose: 20 mg Glucose (Glucose Gel 15 Gm Gel..Gram.) 15 gm PO Q15M PRN; Protocol PRN Reason: per Hypoglycemia Standing Ord. Haloperidol (Haloperidol 1 Mg Tablet) 1 mg PO BEDTIME [facility] Last Admin: 07/28/23 20:23 Dose: 1 mg Ibuprofen (Ibuprofen 600 Mg Tablet) 600 mg PO Q6H PRN PRN Reason: pain not relieved by tylenol Last Admin: 07/23/23 21:10 Dose: 600 mg Insulin Glargine (Insulin Glargine,Hum.Rec.Anlog 100 Unit/Ml 10 Ml Vial) 6 unit SUBCUT DAILY [facility] Last Admin: 07/28/23 08:56 Dose: Not Given Insulin Human Lispro (Insulin Lispro 100 Unit/Ml 3 Ml Vial) 0 unit SUBCUT QIDACHS [facility]; Protocol Last Admin: 07/28/23 20:24 Dose: 2 unit Loperamide HCl (Loperamide Hcl 2 Mg Capsule) 2 mg PO Q6H PRN PRN Reason: Loose Stool Last Admin: 07/15/23 11:14 Dose: 2 mg Magnesium Hydroxide (Milk Of Magnesia 30 Ml Oral.Susp) 30 ml PO DAILY PRN PRN Reason: Constipation Magnesium Ox[facility] ([facility] 400 Mg [facility]t) [facility] Last Admin: 07/28/23 16:51 Dose: 400 mg Memantine (Memantine Hcl 10 Mg Tablet) 10 mg PO BID [facility] Last Admin: 09/22/23 20:23 Dose: 10 mg Metformin HCl (Metformin Hcl 1,000 Mg Tablet) 1,000 mg PO BID [facility] Last Admin: 07/28/23 20:22 Dose: 1,000 mg Olanzapine (Olanzapine 2.5 Mg Tablet) 2.5 mg PO Q4H PRN PRN Reason: anxiety/agitation Last Admin: 07/13/23 00:01 Dose: 2.5 mg Sertraline HCl (Sertraline Hcl 100 Mg Tablet) 100 mg PO DAILY [facility] Last Admin: 07/28/23 09:26 Dose: 100 mg Trazodone HCl (Trazodone Hcl 50 Mg Tablet) 50 mg PO BEDTIME MRX1 PRN PRN Reason: Insomnia Last Admin: 07/27/23 20:20 Dose: 50 mg Allergies Allergies Allergy/AdvReac Type Severity Reaction Status Date / Time No Known Allergies Allergy Verified 03/23/23 18:13 Assessment & Plan Assessment & Plan (1) Alzheimer's dementia: Status: Acute Code(s): G30.9 - Alzheimer's disease, unspecified; F02.80 - Dementia in other diseases classified elsewhere, unspecified severity, without behavioral disturbance, psychotic disturbance, mood disturbance, and anxiety Assessment and Plan: 58 years old woman with relative young age onset at Alzheimer dementia but overall clinical picture is affected by significant depression, which continues to be the predominant feature of for clinical picture. Conventional dementia medicines such as donepezil or memantine can be tried but usually do not make significant difference. I would suggest memantine 10 mg twice a day and donepezil 10 mg daily. Recently a new dementia at drug for Alzheimer was approved but only for relatively mild dementia or mild cognitive impairment type of patients. She would not qualify for that drug. Plan 1. Continue same treatment. 2. Waiting for placement. 3. Lower Haldol to 1 mg p.o. q.h.s. on July 28 Plan Patient with low magnesium met result discontinued core needing care with hospitalist team given p.o. magnesium monitor levels neuro consult Reason for continued inpatient stay Substantial Risk for: inability to function, rapid decompensation and med/psych decompensation Time Spent With Patient Time: Total time managing care of this patient today _20___ minutes.
[2023-07-29] MEDS: Insulin Glargine,Hum.rec.anlog 100 UNIT/ML 10 ML VIAL 6 UNIT SUBCUT (08:42)
[2023-07-29] MEDS: Magnesium Oxide 400 MG TABLET PO ×2 (08:44→17:10)
[2023-07-29] MEDS: Famotidine 20 MG TABLET PO (08:44)
[2023-07-29] MEDS: Empagliflozin 25 MG TABLET PO (08:44)
[2023-07-29] MEDS: metFORMIN HCl 1,000 MG TABLET 1000 MG PO ×2 (08:44→21:03)
[2023-07-29] MEDS: Sertraline HCL 100 MG TABLET PO (08:44)
[2023-07-29] MEDS: Memantine HCl 10 MG TABLET PO ×2 (08:44→21:03)
[2023-07-29] MEDS: Atorvastatin Calcium 40 MG TABLET PO (08:44)
[2023-07-29 11:34] LABS: Glucose, Whole Blood 106 mg/dL (60-115)
[2023-07-29 18:00] VITALS: BP 155/80; PULSE 80; RESP 18; TEMP 36.7; O2SAT 97
[2023-07-29 20:06] LABS: Glucose, Whole Blood 122 mg/dL (60-115)
[2023-07-29] MEDS: traZODone HCL 50 MG TABLET PO (21:03)
[2023-07-29] MEDS: HaloperidoL 1 MG TABLET PO (21:03)
[2023-07-29] MEDS: Donepezil HCl 10 MG TABLET PO (21:03)
[2023-07-30 07:19] LABS: Glucose, Whole Blood 90 mg/dL (60-115)
[2023-07-30 08:00] VITALS: BP 139/67; PULSE 66; RESP 16; TEMP 36.9; O2SAT 98
--- NOTE | 2023-07-30 09:07 | P.PNPSI_ITS ---
Subjective Subjective Date of Service: 07/30/23 Reason For Visit: hallucinations confusion Subjective Notes: Conditional Voluntary Interim History: The nursing staff reported the patient had been compliant with medication, slept well still confused. On interview the patient denies new symptoms, very cognitively impaired. Waiting for placement. Mental Status Exam Mental Status Exam Patient Appearance: Appropriate Patient Orientation: Person Level of Consciousness: Awake Patient Behavior: Guarded and Passive Mood Description: Withdrawn Affect Description: Constricted Patient Cognition Impaired: Yes Ability to Follow Directions: Good Speech Pattern: Clear Hallucinations: None Delusions: Not Present Thought Process: Distracted Thought Content: positive for [place] and positive for Poverty of Content Judgement: Fair Diagnostics Vital Signs (24Hr): Vital Signs - 24 hr 07/29/23 18:00 Temperature 98.0 F Pulse Rate 80 Respiratory Rate 18 Blood Pressure 155/80 H Pulse Oximetry 97 Oxygen Delivery Method Room Air BMI result Body Mass Index 27.5 Labs 07/03/23 18:16 07/28/23 08:27 Labs: Laboratory Results - last 48 hr 07/28/23 07/28/23 07/28/23 11:21 16:15 19:47 POC Glucose 91 81 170 H 07/29/23 07/29/23 07/29/23 06:14 11:30 19:37 POC Glucose 89 106 122 H 07/30/23 07:16 POC Glucose 90 Imaging Radiology Impressions: ITS Impressions Brain MRI 04/03/23 15:30 IMPRESSION: No acute infarct, mass lesion, intracranial hemorrhage, or evidence of hydrocephalus. Mild nonspecific T2/FLAIR hyperintensity in the cerebral white matter and danny presumably on the basis of chronic microangiopathy. Cervical Spine CT 07/03/23 20:12 IMPRESSION: No acute findings within the cervical spine. The cervical central canal is not well assessed on this CT due to artifact. If weakness persists, a cervical spine MRI would be more sensitive in assessment. Medications Medications Current Medications Acetaminophen (Acetaminophen 325 Mg Tablet) 650 mg PO Q6H PRN PRN Reason: Headache/Pain Mild Scale (1-3) Last Admin: 07/28/23 20:23 Dose: 650 mg Al Hydroxide/Mg Hydroxide (Magnesium Hydrox/Alum Hydrox 30 Ml Oral.Susp) 30 ml PO Q6H PRN PRN Reason: Heartburn/Nausea Atorvastatin Calcium (Atorvastatin Calcium 40 Mg Tablet) 40 mg PO DAILY [facility] Last Admin: 07/29/23 08:44 Dose: 40 mg Donepezil HCl (Donepezil Hcl 10 Mg Tablet) 10 mg PO BEDTIME [facility] Last Admin: 07/29/23 21:03 Dose: 10 mg Empagliflozin (Empagliflozin 25 Mg Tablet) 25 mg PO DAILY [facility] Last Admin: 07/29/23 08:44 Dose: 25 mg Famotidine (Famotidine 20 Mg Tablet) 20 mg PO DAILY [facility] Last Admin: 07/29/23 08:44 Dose: 20 mg Haloperidol (Haloperidol 1 Mg Tablet) 1 mg PO BEDTIME [facility] Last Admin: 07/29/23 21:03 Dose: 1 mg Ibuprofen (Ibuprofen 600 Mg Tablet) 600 mg PO Q6H PRN PRN Reason: pain not relieved by tylenol Last Admin: 07/23/23 21:10 Dose: 600 mg Insulin Glargine (Insulin Glargine,Hum.Rec.Anlog 100 Unit/Ml 10 Ml Vial) 6 unit SUBCUT DAILY [facility] Last Admin: 07/29/23 08:42 Dose: 6 unit Loperamide HCl (Loperamide Hcl 2 Mg Capsule) 2 mg PO Q6H PRN PRN Reason: Loose Stool Last Admin: 07/15/23 11:14 Dose: 2 mg Magnesium Hydroxide (Milk Of Magnesia 30 Ml Oral.Susp) 30 ml PO DAILY PRN PRN Reason: Constipation Magnesium Oxide ([facility] 400 Mg [facility]t) [facility] Last Admin: 07/29/23 17:10 Dose: 400 mg Memantine (Memantine Hcl 10 Mg Tablet) 10 mg PO BID [facility] Last Admin: 07/29/23 21:03 Dose: 10 mg Metformin HCl (Metformin Hcl 1,000 Mg Tablet) 1,000 mg PO BID [facility] Last Admin: 07/29/23 21:03 Dose: 1,000 mg Olanzapine (Olanzapine 2.5 Mg Tablet) 2.5 mg PO Q4H PRN PRN Reason: anxiety/agitation Last Admin: 07/13/23 00:01 Dose: 2.5 mg Sertraline HCl (Sertraline Hcl 100 Mg Tablet) 100 mg PO DAILY [facility] Last Admin: 07/29/23 08:44 Dose: 100 mg Trazodone HCl (Trazodone Hcl 50 Mg Tablet) 50 mg PO BEDTIME MRX1 PRN PRN Reason: Insomnia Last Admin: 07/29/23 21:03 Dose: 50 mg Allergies Allergies Allergy/AdvReac Type Severity Reaction Status Date / Time No Known Allergies Allergy Verified 03/23/23 18:13 Assessment & Plan Assessment & Plan (1) Alzheimer's dementia: Status: Acute Code(s): G30.9 - Alzheimer's disease, unspecified; F02.80 - Dementia in other diseases classified elsewhere, unspecified severity, without behavioral disturbance, psychotic disturbance, mood disturbance, and anxiety Assessment and Plan: 58 years old woman with relative young age onset at Alzheimer dementia but overall clinical picture is affected by significant depression, which continues to be the predominant feature of for clinical picture. Conventional dementia medicines such as donepezil or memantine can be tried but usually do not make significant difference. I would suggest memantine 10 mg twice a day and donepezil 10 mg daily. Recently a new dementia at drug for Alzheimer was approved but only for relatively mild dementia or mild cognitive impairment type of patients. She would not qualify for that drug. Plan 1. Continue same treatment. 2. Waiting for placement. 3. Lower Haldol to 1 mg p.o. q.h.s. on July 28 Plan Patient with low magnesium met result discontinued core needing care with hospitalist team given p.o. magnesium monitor levels neuro consult Reason for continued inpatient stay Substantial Risk for: inability to function, rapid decompensation and med/psych decompensation Time Spent With Patient Time: Total time managing care of this patient today __20__ minutes.
[2023-07-30] MEDS: Insulin Glargine,Hum.rec.anlog 100 UNIT/ML 10 ML VIAL 6 UNIT SUBCUT (10:51)
[2023-07-30] MEDS: Magnesium Oxide 400 MG TABLET PO ×2 (10:52→17:03)
[2023-07-30] MEDS: Famotidine 20 MG TABLET PO (10:52)
[2023-07-30] MEDS: Empagliflozin 25 MG TABLET PO (10:52)
[2023-07-30] MEDS: Atorvastatin Calcium 40 MG TABLET PO (10:52)
[2023-07-30] MEDS: Sertraline HCL 100 MG TABLET PO (10:52)
[2023-07-30] MEDS: Memantine HCl 10 MG TABLET PO ×2 (10:52→20:37)
[2023-07-30] MEDS: metFORMIN HCl 1,000 MG TABLET 1000 MG PO ×2 (10:52→20:37)
[2023-07-30 11:36] LABS: Glucose, Whole Blood 113 mg/dL (60-115)
[2023-07-30 16:21] LABS: Glucose, Whole Blood 111 mg/dL (60-115)
[2023-07-30 18:00] VITALS: BP 124/69; PULSE 78; RESP 17; TEMP 36.6; O2SAT 97
[2023-07-30] MEDS: traZODone HCL 50 MG TABLET PO (20:37)
[2023-07-30] MEDS: Donepezil HCl 10 MG TABLET PO (20:37)
[2023-07-30] MEDS: HaloperidoL 1 MG TABLET PO (20:37)
[2023-07-30 21:25] LABS: Glucose, Whole Blood 185 mg/dL (60-115)
[2023-07-31 06:54] LABS: Glucose, Whole Blood 100 mg/dL (60-115)
[2023-07-31 07:45] VITALS: BP 141/72; PULSE 77; RESP 18; TEMP 36.7; O2SAT 96
[2023-07-31] MEDS: Memantine HCl 10 MG TABLET PO ×2 (08:57→20:45)
[2023-07-31] MEDS: Magnesium Oxide 400 MG TABLET PO ×2 (08:57→16:42)
[2023-07-31] MEDS: metFORMIN HCl 1,000 MG TABLET 1000 MG PO ×2 (08:57→20:45)
[2023-07-31] MEDS: Empagliflozin 25 MG TABLET PO (08:57)
[2023-07-31] MEDS: Atorvastatin Calcium 40 MG TABLET PO (08:57)
[2023-07-31] MEDS: Famotidine 20 MG TABLET PO (08:57)
[2023-07-31] MEDS: Sertraline HCL 100 MG TABLET PO (08:57)
[2023-07-31] MEDS: Insulin Glargine,Hum.rec.anlog 100 UNIT/ML 10 ML VIAL 6 UNIT SUBCUT (09:29)
--- NOTE | 2023-07-31 12:07 | P.PNPSI_ITS ---
Subjective Subjective Date of Service: 07/31/23 Reason For Visit: hallucinations confusion Subjective Notes: Conditional Voluntary Interim History: The nursing staff reported the patient had been medication and meal compliant, she shower with flat affect and she was seen in the common areas. The addiction social worker reported that her contact the team a for several weeks. On interview no changes in mental status, waiting for placement. Mental Status Exam Mental Status Exam Patient Appearance: Appropriate Patient Orientation: Person Level of Consciousness: Awake and Appropriate Patient Behavior: Guarded and Passive Mood Description: Withdrawn Affect Description: Constricted Patient Cognition Impaired: Yes Ability to Follow Directions: Fair Speech Pattern: Clear Hallucinations: None Delusions: Not Present Thought Process: Distracted and Slowed Thinking Thought Content: positive for [place], positive for [place] and positive for Poverty of Content Judgement: Poor Diagnostics Vital Signs (24Hr): Vital Signs - 24 hr 07/30/23 18:00 07/31/23 07:45 Temperature 97.8 F 98.1 F Pulse Rate 78 77 Respiratory Rate 17 18 Blood Pressure 124/69 141/72 H Pulse Oximetry 97 96 Oxygen Delivery Method Room Air Room Air BMI result Body Mass Index 27.5 Labs 07/03/23 18:16 07/28/23 08:27 Labs: Laboratory Results - last 48 hr 07/29/23 07/30/23 07/30/23 19:37 07:16 11:33 POC Glucose 122 H 90 113 07/30/23 07/30/23 07/31/23 16:16 21:02 06:41 POC Glucose 111 185 H 100 Imaging Radiology Impressions: ITS Impressions Brain MRI 04/03/23 15:30 IMPRESSION: No acute infarct, mass lesion, intracranial hemorrhage, or evidence of hydrocephalus. Mild nonspecific T2/FLAIR hyperintensity in the cerebral white matter and danny presumably on the basis of chronic microangiopathy. Cervical Spine CT 07/03/23 20:12 IMPRESSION: No acute findings within the cervical spine. The cervical central canal is not well assessed on this CT due to artifact. If weakness persists, a cervical spine MRI would be more sensitive in assessment. Medications Medications Current Medications Acetaminophen (Acetaminophen 325 Mg Tablet) 650 mg PO Q6H PRN PRN Reason: Headache/Pain Mild Scale (1-3) Last Admin: 07/28/23 20:23 Dose: 650 mg Al Hydroxide/Mg Hydroxide (Magnesium Hydrox/Alum Hydrox 30 Ml Oral.Susp) 30 ml PO Q6H PRN PRN Reason: Heartburn/Nausea Atorvastatin Calcium (Atorvastatin Calcium 40 Mg Tablet) 40 mg PO DAILY [facility] Last Admin: 07/31/23 08:57 Dose: 40 mg Donepezil HCl (Donepezil Hcl 10 Mg Tablet) 10 mg PO BEDTIME [facility] Last Admin: 07/30/23 20:37 Dose: 10 mg Empagliflozin (Empagliflozin 25 Mg Tablet) 25 mg PO DAILY [facility] Last Admin: 07/31/23 08:57 Dose: 25 mg Famotidine (Famotidine 20 Mg Tablet) 20 mg PO DAILY [facility] Last Admin: 07/31/23 08:57 Dose: 20 mg Haloperidol (Haloperidol 1 Mg Tablet) 1 mg PO BEDTIME [facility] Last Admin: 07/30/23 20:37 Dose: 1 mg Ibuprofen (Ibuprofen 600 Mg Tablet) 600 mg PO Q6H PRN PRN Reason: pain not relieved by tylenol Last Admin: 07/23/23 21:10 Dose: 600 mg Insulin Glargine (Insulin Glargine,Hum.Rec.Anlog 100 Unit/Ml 10 Ml Vial) 6 unit SUBCUT DAILY [facility] Last Admin: 07/31/23 09:29 Dose: 6 unit Loperamide HCl (Loperamide Hcl 2 Mg Capsule) 2 mg PO Q6H PRN PRN Reason: Loose Stool Last Admin: 07/15/23 11:14 Dose: 2 mg Magnesium Hydroxide (Milk Of Magnesia 30 Ml Oral.Susp) 30 ml PO DAILY PRN PRN Reason: Constipation Magnesium Oxide (Magnesium Oxide 400 Mg Tablet) [facility] Last Admin: 07/31/23 08:57 Dose: 400 mg Memantine (Memantine Hcl 10 Mg Tablet) 10 mg PO BID [facility] Last Admin: 07/31/23 08:57 Dose: 10 mg Metformin HCl (Metformin Hcl 1,000 Mg Tablet) 1,000 mg PO BID [facility] Last Admin: 07/31/23 08:57 Dose: 1,000 mg Olanzapine (Olanzapine 2.5 Mg Tablet) 2.5 mg PO Q4H PRN PRN Reason: anxiety/agitation Last Admin: 07/13/23 00:01 Dose: 2.5 mg Sertraline HCl (Sertraline Hcl 100 Mg Tablet) 100 mg PO DAILY [facility] Last Admin: 07/31/23 08:57 Dose: 100 mg Trazodone HCl (Trazodone Hcl 50 Mg Tablet) 50 mg PO BEDTIME MRX1 PRN PRN Reason: Insomnia Last Admin: 07/30/23 20:37 Dose: 50 mg Allergies Allergies Allergy/AdvReac Type Severity Reaction Status Date / Time No Known Allergies Allergy Verified 03/23/23 18:13 Assessment & Plan Assessment & Plan (1) Alzheimer's dementia: Status: Acute Code(s): G30.9 - Alzheimer's disease, unspecified; F02.80 - Dementia in other diseases classified elsewhere, unspecified severity, without behavioral disturbance, psychotic disturbance, mood disturbance, and anxiety Assessment and Plan: 58 years old woman with relative young age onset at Alzheimer dementia but overall clinical picture is affected by significant depression, which continues to be the predominant feature of for clinical picture. Conventional dementia medicines such as donepezil or memantine can be tried but usually do not make significant difference. I would suggest memantine 10 mg twice a day and donepezil 10 mg daily. Recently a new dementia at drug for Alzheimer was approved but only for relatively mild dementia or mild cognitive impairment type of patients. She would not qualify for that drug. Plan 1. Continue same treatment. 2. Waiting for placement. 3. Lower Haldol to 1 mg p.o. q.h.s. on July 28 Plan Patient with low magnesium met result discontinued core needing care with hospitalist team given p.o. magnesium monitor levels neuro consult Reason for continued inpatient stay Substantial Risk for: inability to function, rapid decompensation and med/psych decompensation Time Spent With Patient Time: Total time managing care of this patient today __20__ minutes.
[2023-07-31 18:00] VITALS: BP 122/68; PULSE 68; RESP 16; TEMP 36; O2SAT 95
[2023-07-31] MEDS: Donepezil HCl 10 MG TABLET PO (20:45)
[2023-07-31] MEDS: HaloperidoL 1 MG TABLET PO (20:46)
[2023-08-01 08:00] VITALS: BP 137/77; PULSE 82; RESP 16; TEMP 36.4; O2SAT 96
[2023-08-01] MEDS: Insulin Glargine,Hum.rec.anlog 100 UNIT/ML 10 ML VIAL 6 UNIT SUBCUT (08:40)
[2023-08-01] MEDS: Empagliflozin 25 MG TABLET PO (08:41)
[2023-08-01] MEDS: Memantine HCl 10 MG TABLET PO ×2 (08:41→20:34)
[2023-08-01] MEDS: metFORMIN HCl 1,000 MG TABLET 1000 MG PO ×2 (08:41→20:34)
[2023-08-01] MEDS: Famotidine 20 MG TABLET PO (08:41)
[2023-08-01] MEDS: Magnesium Oxide 400 MG TABLET PO ×2 (08:41→17:14)
[2023-08-01] MEDS: Atorvastatin Calcium 40 MG TABLET PO (08:41)
[2023-08-01] MEDS: Sertraline HCL 100 MG TABLET PO (08:41)
--- NOTE | 2023-08-01 09:50 | P.PNPSI_ITS ---
Subjective Subjective Date of Service: 08/01/23 Reason For Visit: hallucinations confusion Subjective Notes: Conditional Voluntary Interim History: Nursing staff reported no changes in her mental status, she had been fully compliant with treatment she slept well. The occupational therapist reported that the caller that we use since her head has dropped helps her partially. On interview the patient denies new symptoms, waiting for placement. Mental Status Exam Mental Status Exam Patient Appearance: Appropriate Patient Orientation: Person Level of Consciousness: Awake Patient Behavior: Dependent and Cooperative Mood Description: Withdrawn Affect Description: Blunted Patient Cognition Impaired: Yes Ability to Follow Directions: Good Speech Pattern: Clear Hallucinations: None Delusions: Not Present Thought Process: Distracted and Slowed Thinking Thought Content: positive for [place] and positive for Poverty of Content Judgement: Fair Diagnostics Vital Signs (24Hr): Vital Signs - 24 hr 07/31/23 18:00 08/01/23 08:00 Temperature 96.8 F 97.6 F Pulse Rate 68 82 Respiratory Rate 16 16 Blood Pressure 122/68 137/77 Pulse Oximetry 95 96 Oxygen Delivery Method Room Air Room Air BMI result Body Mass Index 27.5 Labs 07/03/23 18:16 07/28/23 08:27 Labs: Laboratory Results - last 48 hr 07/30/23 07/30/23 07/30/23 11:33 16:16 21:02 POC Glucose 113 111 185 H 07/31/23 06:41 POC Glucose 100 Imaging Radiology Impressions: ITS Impressions Brain MRI 04/03/23 15:30 IMPRESSION: No acute infarct, mass lesion, intracranial hemorrhage, or evidence of hydrocephalus. Mild nonspecific T2/FLAIR hyperintensity in the cerebral white matter and danny presumably on the basis of chronic microangiopathy. Cervical Spine CT 07/03/23 20:12 IMPRESSION: No acute findings within the cervical spine. The cervical central canal is not well assessed on this CT due to artifact. If weakness persists, a cervical spine MRI would be more sensitive in assessment. Medications Medications Current Medications Acetaminophen (Acetaminophen 325 Mg Tablet) 650 mg PO Q6H PRN PRN Reason: Headache/Pain Mild Scale (1-3) Last Admin: 07/28/23 20:23 Dose: 650 mg Al Hydroxide/Mg Hydroxide (Magnesium Hydrox/Alum Hydrox 30 Ml Oral.Susp) 30 ml PO Q6H PRN PRN Reason: Heartburn/Nausea Atorvastatin Calcium (Atorvastatin Calcium 40 Mg Tablet) 40 mg PO DAILY [facility] Last Admin: 08/01/23 08:41 Dose: 40 mg Donepezil HCl (Donepezil Hcl 10 Mg Tablet) 10 mg PO BEDTIME [facility] Last Admin: 07/31/23 20:45 Dose: 10 mg Empagliflozin (Empagliflozin 25 Mg Tablet) 25 mg PO DAILY [facility] Last Admin: 08/01/23 08:41 Dose: 25 mg Famotidine (Famotidine 20 Mg Tablet) 20 mg PO DAILY [facility] Last Admin: 08/01/23 08:41 Dose: 20 mg Haloperidol (Haloperidol 1 Mg Tablet) 1 mg PO BEDTIME [facility] Last Admin: 07/31/23 20:46 Dose: 1 mg Ibuprofen (Ibuprofen 600 Mg Tablet) 600 mg PO Q6H PRN PRN Reason: pain not relieved by tylenol Last Admin: 07/23/23 21:10 Dose: 600 mg Insulin Glargine (Insulin Glargine,Hum.Rec.Anlog 100 Unit/Ml 10 Ml Vial) 6 unit SUBCUT DAILY [facility] Last Admin: 08/01/23 08:40 Dose: 6 unit Loperamide HCl (Loperamide Hcl 2 Mg Capsule) 2 mg PO Q6H PRN PRN Reason: Loose Stool Last Admin: 07/15/23 11:14 Dose: 2 mg Magnesium Hydroxide (Milk Of Magnesia 30 Ml Oral.Susp) 30 ml PO DAILY PRN PRN Reason: Constipation Magnesium Oxide (Magnesium Oxide 400 Mg Tablet) [facility] Last Admin: 08/01/23 08:41 Dose: 400 mg Memantine (Memantine Hcl 10 Mg Tablet) 10 mg PO BID [facility] Last Admin: 08/01/23 08:41 Dose: 10 mg Metformin HCl (Metformin Hcl 1,000 Mg Tablet) 1,000 mg PO BID [facility] Last Admin: 08/01/23 08:41 Dose: 1,000 mg Olanzapine (Olanzapine 2.5 Mg Tablet) 2.5 mg PO Q4H PRN PRN Reason: anxiety/agitation Last Admin: 07/13/23 00:01 Dose: 2.5 mg Sertraline HCl (Sertraline Hcl 100 Mg Tablet) 100 mg PO DAILY [facility] Last Admin: 08/01/23 08:41 Dose: 100 mg Trazodone HCl (Trazodone Hcl 50 Mg Tablet) 50 mg PO BEDTIME MRX1 PRN PRN Reason: Insomnia Last Admin: 07/30/23 20:37 Dose: 50 mg Allergies Allergies Allergy/AdvReac Type Severity Reaction Status Date / Time No Known Allergies Allergy Verified 03/23/23 18:13 Assessment & Plan Assessment & Plan (1) Alzheimer's dementia: Status: Acute Code(s): G30.9 - Alzheimer's disease, unspecified; F02.80 - Dementia in other diseases classified elsewhere, unspecified severity, without behavioral disturbance, psychotic disturbance, mood disturbance, and anxiety Assessment and Plan: 58 years old woman with relative young age onset at Alzheimer dementia but overall clinical picture is affected by significant depression, which continues to be the predominant feature of for clinical picture. Conventional dementia medicines such as donepezil or memantine can be tried but usually do not make significant difference. I would suggest memantine 10 mg twice a day and donepezil 10 mg daily. Recently a new dementia at drug for Alzheimer was approved but only for relatively mild dementia or mild cognitive impairment type of patients. She would not qualify for that drug. Plan 1. Continue same treatment. 2. Waiting for placement. 3. Lower Haldol to 1 mg p.o. q.h.s. on July 28 Plan Patient with low magnesium met result discontinued core needing care with hospitalist team given p.o. magnesium monitor levels neuro consult Reason for continued inpatient stay Substantial Risk for: inability to function, rapid decompensation and med/psych decompensation Time Spent With Patient Time: Total time managing care of this patient today __20__ minutes.
[2023-08-01 18:00] VITALS: BP 134/79; PULSE 96; RESP 17; TEMP 36.6; O2SAT 96
[2023-08-01] MEDS: Donepezil HCl 10 MG TABLET PO (20:34)
[2023-08-01] MEDS: HaloperidoL 1 MG TABLET PO (20:34)
[2023-08-01] MEDS: traZODone HCL 50 MG TABLET PO (20:34)
[2023-08-01 21:52] LABS: Glucose, Whole Blood 115 mg/dL (60-115)
[2023-08-02 08:21] VITALS: BP 144/73; PULSE 84; RESP 16; TEMP 37.2; O2SAT 96
[2023-08-02] MEDS: Famotidine 20 MG TABLET PO (09:04)
[2023-08-02] MEDS: Memantine HCl 10 MG TABLET PO ×2 (09:04→20:39)
[2023-08-02] MEDS: Magnesium Oxide 400 MG TABLET PO ×2 (09:04→17:09)
[2023-08-02] MEDS: Empagliflozin 25 MG TABLET PO (09:04)
[2023-08-02] MEDS: metFORMIN HCl 1,000 MG TABLET 1000 MG PO ×2 (09:04→20:39)
[2023-08-02] MEDS: Atorvastatin Calcium 40 MG TABLET PO (09:04)
[2023-08-02] MEDS: Sertraline HCL 100 MG TABLET PO (09:04)
[2023-08-02] MEDS: Insulin Glargine,Hum.rec.anlog 100 UNIT/ML 10 ML VIAL 6 UNIT SUBCUT (09:15)
--- NOTE | 2023-08-02 14:03 | MHC.CLN ---
F/U DIET=DIABETIC 1800 KCAL. ENSURE MAX PROTEIN TID PROVIDES 450 KCALS, 90 G PROTEIN. INTAKE CONTINUES VARIABLE. TODAY, DID NOT EAT BREAKFAST, ATE 45% OF LUNCH. FOLLOW WEEKLY FOR INTAKE AND WEIGHT.
--- NOTE | 2023-08-02 14:35 | HO.PSYCHPN ---
Subjective Subjective Date of Service: 08/02/23 Reason For Visit: hallucinations confusion Subjective Notes: Conditional Voluntary Interim History: The nursing staff reported no changes in her mental status, she had been fully compliant with treatment. She remains confused at times wandering the unit easily redirectable. On interview the patient denies new symptoms, waiting for placement. Mental Status Exam Mental Status Exam Patient Appearance: Appropriate Patient Orientation: Person and Situation Level of Consciousness: Awake and Appropriate Patient Behavior: Guarded and Passive Mood Description: Withdrawn Affect Description: Constricted Patient Cognition Impaired: Yes Ability to Follow Directions: Good Speech Pattern: Clear Hallucinations: None Delusions: Not Present Thought Process: Distracted Thought Content: positive for [place] and positive for Poverty of Content Judgement: Fair Diagnostics Vital Signs (24Hr): Vital Signs - 24 hr 08/01/23 18:00 08/02/23 08:21 Temperature 97.8 F 98.9 F Pulse Rate 96 84 Respiratory Rate 17 16 Blood Pressure 134/79 144/73 H Pulse Oximetry 96 96 Oxygen Delivery Method Room Air Room Air BMI result Body Mass Index 27.5 Labs 07/03/23 18:16 07/28/23 08:27 Labs: Laboratory Results - last 48 hr 08/01/23 20:39 POC Glucose 115 Imaging Radiology Impressions: ITS Impressions Brain MRI 04/03/23 15:30 IMPRESSION: No acute infarct, mass lesion, intracranial hemorrhage, or evidence of hydrocephalus. Mild nonspecific T2/FLAIR hyperintensity in the cerebral white matter and danny presumably on the basis of chronic microangiopathy. Cervical Spine CT 07/03/23 20:12 IMPRESSION: No acute findings within the cervical spine. The cervical central canal is not well assessed on this CT due to artifact. If weakness persists, a cervical spine MRI would be more sensitive in assessment. Medications Medications Current Medications Acetaminophen (Acetaminophen 325 Mg Tablet) 650 mg PO Q6H PRN PRN Reason: Headache/Pain Mild Scale (1-3) Last Admin: 07/28/23 20:23 Dose: 650 mg Al Hydroxide/Mg Hydroxide (Magnesium Hydrox/Alum Hydrox 30 Ml Oral.Susp) 30 ml PO Q6H PRN PRN Reason: Heartburn/Nausea Atorvastatin Calcium (Atorvastatin Calcium 40 Mg Tablet) 40 mg PO DAILY [facility] Last Admin: 08/02/23 09:04 Dose: 40 mg Donepezil HCl (Donepezil Hcl 10 Mg Tablet) 10 mg PO BEDTIME [facility] Last Admin: 08/01/23 20:34 Dose: 10 mg Empagliflozin (Empagliflozin 25 Mg Tablet) 25 mg PO DAILY [facility] Last Admin: 08/02/23 09:04 Dose: 25 mg Famotidine (Famotidine 20 Mg Tablet) 20 mg PO DAILY [facility] Last Admin: 08/02/23 09:04 Dose: 20 mg Haloperidol (Haloperidol 1 Mg Tablet) 1 mg PO BEDTIME [facility] Last Admin: 08/01/23 20:34 Dose: 1 mg Ibuprofen (Ibuprofen 600 Mg Tablet) 600 mg PO Q6H PRN PRN Reason: pain not relieved by tylenol Last Admin: 07/23/23 21:10 Dose: 600 mg Insulin Glargine (Insulin Glargine,Hum.Rec.Anlog 100 Unit/Ml 10 Ml Vial) 6 unit SUBCUT DAILY [facility] Last Admin: 08/02/23 09:15 Dose: 6 unit Loperamide HCl (Loperamide Hcl 2 Mg Capsule) 2 mg PO Q6H PRN PRN Reason: Loose Stool Last Admin: 07/15/23 11:14 Dose: 2 mg Magnesium Hydroxide (Milk Of Magnesia 30 Ml Oral.Susp) 30 ml PO DAILY PRN PRN Reason: Constipation Magnesium Oxide ([facility] 400 Mg Tablet) [facility] Last Admin: 08/02/23 09:04 Dose: 400 mg Memantine (Memantine Hcl 10 Mg Tablet) 10 mg PO BID [facility] Last Admin: 08/02/23 09:04 Dose: 10 mg Metformin HCl (Metformin Hcl 1,000 Mg Tablet) 1,000 mg PO BID [facility] Last Admin: 08/02/23 09:04 Dose: 1,000 mg Olanzapine (Olanzapine 2.5 Mg Tablet) 2.5 mg PO Q4H PRN PRN Reason: anxiety/agitation Last Admin: 07/13/23 00:01 Dose: 2.5 mg Sertraline HCl (Sertraline Hcl 100 Mg Tablet) 100 mg PO DAILY [facility] Last Admin: 08/02/23 09:04 Dose: 100 mg Trazodone HCl (Trazodone Hcl 50 Mg Tablet) 50 mg PO BEDTIME MRX1 PRN PRN Reason: Insomnia Last Admin: 08/01/23 20:34 Dose: 50 mg Allergies Allergies Allergy/AdvReac Type Severity Reaction Status Date / Time No Known Allergies Allergy Verified 03/23/23 18:13 Assessment & Plan Assessment & Plan (1) Alzheimer's dementia: Status: Acute Code(s): G30.9 - Alzheimer's disease, unspecified; F02.80 - Dementia in other diseases classified elsewhere, unspecified severity, without behavioral disturbance, psychotic disturbance, mood disturbance, and anxiety Assessment and Plan: 58 years old woman with relative young age onset at Alzheimer dementia but overall clinical picture is affected by significant depression, which continues to be the predominant feature of for clinical picture. Conventional dementia medicines such as donepezil or memantine can be tried but usually do not make significant difference. I would suggest memantine 10 mg twice a day and donepezil 10 mg daily. Recently a new dementia at drug for Alzheimer was approved but only for relatively mild dementia or mild cognitive impairment type of patients. She would not qualify for that drug. Plan 1. Continue same treatment. 2. Waiting for placement. 3. Lower Haldol to 1 mg p.o. q.h.s. on July 28 Plan Patient with low magnesium met result discontinued core needing care with hospitalist team given p.o. magnesium monitor levels neuro consult Reason for continued inpatient stay Substantial Risk for: inability to function, rapid decompensation and med/psych decompensation Time Spent With Patient Time: Total time managing care of this patient today __20__ minutes.
[2023-08-02 18:00] VITALS: BP 127/85; PULSE 79; RESP 18; TEMP 37.1; O2SAT 97
[2023-08-02] MEDS: HaloperidoL 1 MG TABLET PO (20:39)
[2023-08-02] MEDS: Donepezil HCl 10 MG TABLET PO (20:39)
[2023-08-03 07:00] VITALS: BMI 26.4
[2023-08-03 09:30] VITALS: BP 144/73; PULSE 78; RESP 17; TEMP 36.1; O2SAT 95
[2023-08-03] MEDS: Memantine HCl 10 MG TABLET PO ×2 (09:53→20:04)
[2023-08-03] MEDS: Magnesium Oxide 400 MG TABLET PO ×2 (09:53→18:23)
[2023-08-03] MEDS: Atorvastatin Calcium 40 MG TABLET PO (09:53)
[2023-08-03] MEDS: Famotidine 20 MG TABLET PO (09:53)
[2023-08-03] MEDS: metFORMIN HCl 1,000 MG TABLET 1000 MG PO ×2 (09:53→20:04)
[2023-08-03] MEDS: Empagliflozin 25 MG TABLET PO (09:54)
[2023-08-03] MEDS: Sertraline HCL 100 MG TABLET PO (09:54)
[2023-08-03] MEDS: Insulin Glargine,Hum.rec.anlog 100 UNIT/ML 10 ML VIAL 6 UNIT SUBCUT (10:02)
--- NOTE | 2023-08-03 15:26 | HO.PSYCHPN ---
Subjective Subjective Date of Service: 08/03/23 Reason For Visit: hallucinations confusion Subjective Notes: Conditional Voluntary Interim History: The nursing staff reported no changes in her mental status, compliant with treatment. Interview denies new symptoms. Mental Status Exam Mental Status Exam Patient Appearance: Appropriate Patient Orientation: Person and Situation Level of Consciousness: Awake and Appropriate Patient Behavior: Appropriate Mood Description: Constricted Affect Description: Calm Patient Cognition Impaired: Yes Ability to Follow Directions: Good Speech Pattern: Clear Hallucinations: None Delusions: Not Present Thought Process: Distracted and Evasive Thought Content: positive for [place] and positive for Poverty of Content Judgement: Poor Diagnostics Vital Signs (24Hr): Vital Signs - 24 hr 08/02/23 18:00 08/03/23 09:30 Temperature 98.7 F 97 F Pulse Rate 79 78 Respiratory Rate 18 17 Blood Pressure 127/85 144/73 H Pulse Oximetry 97 95 Oxygen Delivery Method Room Air Room Air BMI result Body Mass Index 27.5 Labs 07/03/23 18:16 07/28/23 08:27 Labs: Laboratory Results - last 48 hr 08/01/23 20:39 POC Glucose 115 Imaging Radiology Impressions: ITS Impressions Brain MRI 04/03/23 15:30 IMPRESSION: No acute infarct, mass lesion, intracranial hemorrhage, or evidence of hydrocephalus. Mild nonspecific T2/FLAIR hyperintensity in the cerebral white matter and danny presumably on the basis of chronic microangiopathy. Cervical Spine CT 07/03/23 20:12 IMPRESSION: No acute findings within the cervical spine. The cervical central canal is not well assessed on this CT due to artifact. If weakness persists, a cervical spine MRI would be more sensitive in assessment. Medications Medications Current Medications Acetaminophen (Acetaminophen 325 Mg Tablet) 650 mg PO Q6H PRN PRN Reason: Headache/Pain Mild Scale (1-3) Last Admin: 07/28/23 20:23 Dose: 650 mg Al Hydroxide/Mg Hydroxide (Magnesium Hydrox/Alum Hydrox 30 Ml Oral.Susp) 30 ml PO Q6H PRN PRN Reason: Heartburn/Nausea Atorvastatin Calcium (Atorvastatin Calcium 40 Mg Tablet) 40 mg PO DAILY [facility] Last Admin: 08/03/23 09:53 Dose: 40 mg Donepezil HCl (Donepezil Hcl 10 Mg Tablet) 10 mg PO BEDTIME [facility] Last Admin: 08/02/23 20:39 Dose: 10 mg Empagliflozin (Empagliflozin 25 Mg Tablet) 25 mg PO DAILY [facility] Last Admin: 08/03/23 09:54 Dose: 25 mg Famotidine (Famotidine 20 Mg Tablet) 20 mg PO DAILY [facility] Last Admin: 08/03/23 09:53 Dose: 20 mg Haloperidol (Haloperidol 1 Mg Tablet) 1 mg PO BEDTIME [facility] Last Admin: 08/02/23 20:39 Dose: 1 mg Ibuprofen (Ibuprofen 600 Mg Tablet) 600 mg PO Q6H PRN PRN Reason: pain not relieved by tylenol Last Admin: 07/23/23 21:10 Dose: 600 mg Insulin Glargine (Insulin Glargine,Hum.Rec.Anlog 100 Unit/Ml 10 Ml Vial) 6 unit SUBCUT DAILY [facility] Last Admin: 08/03/23 10:02 Dose: 6 unit Loperamide HCl (Loperamide Hcl 2 Mg Capsule) 2 mg PO Q6H PRN PRN Reason: Loose Stool Last Admin: 07/15/23 11:14 Dose: 2 mg Magnesium Hydroxide (Milk Of Magnesia 30 Ml Oral.Susp) 30 ml PO DAILY PRN PRN Reason: Constipation [facility]esium [facility] ([facility] 400 Mg [facility] Last Admin: 08/03/23 09:53 Dose: 400 mg Memantine (Memantine Hcl 10 Mg Tablet) 10 mg PO BID [facility] Last Admin: 08/03/23 09:53 Dose: 10 mg Metformin HCl (Metformin Hcl 1,000 Mg Tablet) 1,000 mg PO BID [facility] Last Admin: 08/03/23 09:53 Dose: 1,000 mg Olanzapine (Olanzapine 2.5 Mg Tablet) 2.5 mg PO Q4H PRN PRN Reason: anxiety/agitation Last Admin: 07/13/23 00:01 Dose: 2.5 mg Sertraline HCl (Sertraline Hcl 100 Mg Tablet) 100 mg PO DAILY [facility] Last Admin: 08/03/23 09:54 Dose: 100 mg Trazodone HCl (Trazodone Hcl 50 Mg Tablet) 50 mg PO BEDTIME MRX1 PRN PRN Reason: Insomnia Last Admin: 08/01/23 20:34 Dose: 50 mg Allergies Allergies Allergy/AdvReac Type Severity Reaction Status Date / Time No Known Allergies Allergy Verified 03/23/23 18:13 Assessment & Plan Assessment & Plan (1) Alzheimer's dementia: Status: Acute Code(s): G30.9 - Alzheimer's disease, unspecified; F02.80 - Dementia in other diseases classified elsewhere, unspecified severity, without behavioral disturbance, psychotic disturbance, mood disturbance, and anxiety Assessment and Plan: 58 years old woman with relative young age onset at Alzheimer dementia but overall clinical picture is affected by significant depression, which continues to be the predominant feature of for clinical picture. Conventional dementia medicines such as donepezil or memantine can be tried but usually do not make significant difference. I would suggest memantine 10 mg twice a day and donepezil 10 mg daily. Recently a new dementia at drug for Alzheimer was approved but only for relatively mild dementia or mild cognitive impairment type of patients. She would not qualify for that drug. Plan 1. Continue same treatment. 2. Waiting for placement. 3. Lower Haldol to 1 mg p.o. q.h.s. on July 28 Plan Patient with low magnesium met result discontinued core needing care with hospitalist team given p.o. magnesium monitor levels neuro consult Reason for continued inpatient stay Substantial Risk for: inability to function, rapid decompensation and med/psych decompensation Time Spent With Patient Time: Total time managing care of this patient today __20__ minutes.
[2023-08-03 18:00] VITALS: BP 117/56; PULSE 69; RESP 17; TEMP 36.4; O2SAT 97
[2023-08-03] MEDS: Loperamide HCl 2 MG CAPSULE PO (18:41)
[2023-08-03] MEDS: Donepezil HCl 10 MG TABLET PO (20:04)
[2023-08-03] MEDS: traZODone HCL 50 MG TABLET PO (20:04)
[2023-08-03] MEDS: HaloperidoL 1 MG TABLET PO (20:04)
[2023-08-03] MEDS: Acetaminophen 325 MG TABLET 650 MG PO (20:07)
[2023-08-04 07:30] VITALS: BP 136/74; PULSE 72; RESP 18; TEMP 36.3; O2SAT 95
[2023-08-04 08:19] LABS: Estimated Glomerular Filt Rate > 60
[2023-08-04] MEDS: Insulin Glargine,Hum.rec.anlog 100 UNIT/ML 10 ML VIAL 6 UNIT SUBCUT (09:47)
[2023-08-04] MEDS: Empagliflozin 25 MG TABLET PO (09:48)
[2023-08-04] MEDS: Atorvastatin Calcium 40 MG TABLET PO (09:48)
[2023-08-04] MEDS: Sertraline HCL 100 MG TABLET PO (09:48)
[2023-08-04] MEDS: Magnesium Oxide 400 MG TABLET PO ×2 (09:48→17:51)
[2023-08-04] MEDS: metFORMIN HCl 1,000 MG TABLET 1000 MG PO ×2 (09:48→20:31)
[2023-08-04] MEDS: Memantine HCl 10 MG TABLET PO ×2 (10:22→20:32)
[2023-08-04] MEDS: Famotidine 20 MG TABLET PO (10:22)
[2023-08-04 11:26] LABS: Glucose, Whole Blood 109 mg/dL (60-115)
--- NOTE | 2023-08-04 13:27 | HO.PSYCHPN ---
Subjective Subjective Date of Service: 08/04/23 Reason For Visit: hallucinations confusion Subjective Notes: Conditional Voluntary Interim History: The nursing staff reported the patient had been compliant with treatment no changes in her mental status. On interview the patient denies new symptoms, waiting for placement. Mental Status Exam Mental Status Exam Patient Appearance: Appropriate Patient Orientation: Person Level of Consciousness: Awake and Appropriate Patient Behavior: Guarded and Passive Mood Description: Withdrawn Affect Description: Blunted Patient Cognition Impaired: Yes Ability to Follow Directions: Fair Speech Pattern: Clear Hallucinations: None Delusions: Not Present Thought Process: Distracted and Slowed Thinking Thought Content: positive for [place] and positive for Poverty of Content Judgement: Fair Diagnostics Vital Signs (24Hr): Vital Signs - 24 hr 08/03/23 18:00 Temperature 97.5 F Pulse Rate 69 Respiratory Rate 17 Blood Pressure 117/56 L Pulse Oximetry 97 Oxygen Delivery Method Room Air BMI result Body Mass Index 26.4 Labs 07/03/23 18:16 08/04/23 07:58 Labs: Laboratory Results - last 48 hr 08/04/23 08/04/23 07:58 09:04 Hold Purple Top SEE NOTE Creatinine 0.68 Estim Creat Clear Calc 81.0 Estimated GFR > 60 POC Glucose 109 Imaging Radiology Impressions: ITS Impressions Brain MRI 04/03/23 15:30 IMPRESSION: No acute infarct, mass lesion, intracranial hemorrhage, or evidence of hydrocephalus. Mild nonspecific T2/FLAIR hyperintensity in the cerebral white matter and danny presumably on the basis of chronic microangiopathy. Cervical Spine CT 07/03/23 20:12 IMPRESSION: No acute findings within the cervical spine. The cervical central canal is not well assessed on this CT due to artifact. If weakness persists, a cervical spine MRI would be more sensitive in assessment. Medications Medications Current Medications Acetaminophen (Acetaminophen 325 Mg Tablet) 650 mg PO Q6H PRN PRN Reason: Headache/Pain Mild Scale (1-3) Last Admin: 08/03/23 20:07 Dose: 650 mg Al Hydroxide/Mg Hydroxide (Magnesium Hydrox/Alum Hydrox 30 Ml Oral.Susp) 30 ml PO Q6H PRN PRN Reason: Heartburn/Nausea Atorvastatin Calcium (Atorvastatin Calcium 40 Mg Tablet) 40 mg PO DAILY [facility] Last Admin: 08/04/23 09:48 Dose: 40 mg Donepezil HCl (Donepezil Hcl 10 Mg Tablet) 10 mg PO BEDTIME [facility] Last Admin: 08/03/23 20:04 Dose: 10 mg Empagliflozin (Empagliflozin 25 Mg Tablet) 25 mg PO DAILY [facility] Last Admin: 08/04/23 09:48 Dose: 25 mg Famotidine (Famotidine 20 Mg Tablet) 20 mg PO DAILY [facility] Last Admin: 08/04/23 10:22 Dose: 20 mg Haloperidol (Haloperidol 1 Mg Tablet) 1 mg PO BEDTIME [facility] Last Admin: 08/03/23 20:04 Dose: 1 mg Ibuprofen (Ibuprofen 600 Mg Tablet) 600 mg PO Q6H PRN PRN Reason: pain not relieved by tylenol Last Admin: 07/23/23 21:10 Dose: 600 mg Insulin Glargine (Insulin Glargine,Hum.Rec.Anlog 100 Unit/Ml 10 Ml Vial) 6 unit SUBCUT DAILY [facility] Last Admin: 08/04/23 09:47 Dose: 6 unit Loperamide HCl (Loperamide Hcl 2 Mg Capsule) 2 mg PO Q6H PRN PRN Reason: Loose Stool Last Admin: 07/15/23 11:14 Dose: 2 mg Magnesium Hydroxide (Milk Of Magnesia 30 Ml Oral.Susp) 30 ml PO DAILY PRN PRN Reason: Constipation [facility] ([facility] 400 Mg [facility] Last Admin: 08/04/23 09:48 Dose: 400 mg Memantine (Memantine Hcl 10 Mg Tablet) 10 mg PO BID [facility] Last Admin: 08/04/23 10:22 Dose: 10 mg Metformin HCl (Metformin Hcl 1,000 Mg Tablet) 1,000 mg PO BID [facility] Last Admin: 08/04/23 09:48 Dose: 1,000 mg Olanzapine (Olanzapine 2.5 Mg Tablet) 2.5 mg PO Q4H PRN PRN Reason: anxiety/agitation Last Admin: 07/13/23 00:01 Dose: 2.5 mg Sertraline HCl (Sertraline Hcl 100 Mg Tablet) 100 mg PO DAILY [facility] Last Admin: 08/04/23 09:48 Dose: 100 mg Trazodone HCl (Trazodone Hcl 50 Mg Tablet) 50 mg PO BEDTIME MRX1 PRN PRN Reason: Insomnia Last Admin: 08/03/23 20:04 Dose: 50 mg Allergies Allergies Allergy/AdvReac Type Severity Reaction Status Date / Time No Known Allergies Allergy Verified 03/23/23 18:13 Assessment & Plan Assessment & Plan (1) Alzheimer's dementia: Status: Acute Code(s): G30.9 - Alzheimer's disease, unspecified; F02.80 - Dementia in other diseases classified elsewhere, unspecified severity, without behavioral disturbance, psychotic disturbance, mood disturbance, and anxiety Assessment and Plan: 58 years old woman with relative young age onset at Alzheimer dementia but overall clinical picture is affected by significant depression, which continues to be the predominant feature of for clinical picture. Conventional dementia medicines such as donepezil or memantine can be tried but usually do not make significant difference. I would suggest memantine 10 mg twice a day and donepezil 10 mg daily. Recently a new dementia at drug for Alzheimer was approved but only for relatively mild dementia or mild cognitive impairment type of patients. She would not qualify for that drug. Plan 1. Continue same treatment. 2. Waiting for placement. 3. Lower Haldol to 1 mg p.o. q.h.s. on July 28 Plan Patient with low magnesium met result discontinued core needing care with hospitalist team given p.o. magnesium monitor levels neuro consult Reason for continued inpatient stay Substantial Risk for: inability to function, rapid decompensation and med/psych decompensation Time Spent With Patient Time: Total time managing care of this patient today __20__ minutes.
[2023-08-04 18:00] VITALS: BP 134/80; PULSE 77; RESP 16; TEMP 36.9; O2SAT 95
[2023-08-04] MEDS: Donepezil HCl 10 MG TABLET PO (20:32)
[2023-08-04] MEDS: HaloperidoL 1 MG TABLET PO (20:33)
[2023-08-05 08:05] VITALS: BP 135/67; PULSE 91; RESP 18; TEMP 36.2; O2SAT 96
[2023-08-05] MEDS: Magnesium Oxide 400 MG TABLET PO ×2 (08:47→17:32)
[2023-08-05] MEDS: Insulin Glargine,Hum.rec.anlog 100 UNIT/ML 10 ML VIAL 6 UNIT SUBCUT (08:47)
[2023-08-05] MEDS: Empagliflozin 25 MG TABLET PO (08:48)
[2023-08-05] MEDS: Atorvastatin Calcium 40 MG TABLET PO (08:48)
[2023-08-05] MEDS: metFORMIN HCl 1,000 MG TABLET 1000 MG PO ×2 (08:48→20:47)
[2023-08-05] MEDS: Memantine HCl 10 MG TABLET PO ×2 (08:48→20:48)
[2023-08-05] MEDS: Sertraline HCL 100 MG TABLET PO (08:48)
[2023-08-05] MEDS: Famotidine 20 MG TABLET PO (08:48)
--- NOTE | 2023-08-05 12:00 | HO.PSYCHPN ---
Subjective Subjective Date of Service: 08/05/23 Reason For Visit: hallucinations confusion Interim History: calm, cooperative. walking the halls with neck flexed, wearing neck brace. vague, slowed. no complaints or requests. per staff, no change in presentation. needs to be cued to eat or just fed by staff, incontinent of bowel/bladder. Mental Status Exam Mental Status Exam Patient Appearance: Appropriate Patient Orientation: Person Level of Consciousness: Awake and Appropriate Patient Behavior: Guarded and Passive Mood Description: Withdrawn Affect Description: Blunted Patient Cognition Impaired: Yes Ability to Follow Directions: Fair Speech Pattern: Clear Hallucinations: None Delusions: Not Present Thought Process: Distracted and Slowed Thinking Thought Content: positive for [place] and positive for Poverty of Content Judgement: Fair Diagnostics Vital Signs (24Hr): Vital Signs - 24 hr 08/04/23 18:00 08/05/23 08:05 Temperature 98.5 F 97.2 F Pulse Rate 77 91 Respiratory Rate 16 18 Blood Pressure 134/80 135/67 Pulse Oximetry 95 96 Oxygen Delivery Method Room Air Room Air BMI result Body Mass Index 26.4 Labs 07/03/23 18:16 08/04/23 07:58 Labs: Laboratory Results - last 48 hr 08/04/23 08/04/23 07:58 09:04 Hold Purple Top SEE NOTE Creatinine 0.68 Estim Creat Clear Calc 81.0 Estimated GFR > 60 POC Glucose 109 Imaging Radiology Impressions: ITS Impressions Brain MRI 04/03/23 15:30 IMPRESSION: No acute infarct, mass lesion, intracranial hemorrhage, or evidence of hydrocephalus. Mild nonspecific T2/FLAIR hyperintensity in the cerebral white matter and danny presumably on the basis of chronic microangiopathy. Cervical Spine CT 07/03/23 20:12 IMPRESSION: No acute findings within the cervical spine. The cervical central canal is not well assessed on this CT due to artifact. If weakness persists, a cervical spine MRI would be more sensitive in assessment. Medications Medications Current Medications Acetaminophen (Acetaminophen 325 Mg Tablet) 650 mg PO Q6H PRN PRN Reason: Headache/Pain Mild Scale (1-3) Last Admin: 08/03/23 20:07 Dose: 650 mg Al Hydroxide/Mg Hydroxide (Magnesium Hydrox/Alum Hydrox 30 Ml Oral.Susp) 30 ml PO Q6H PRN PRN Reason: Heartburn/Nausea Atorvastatin Calcium (Atorvastatin Calcium 40 Mg Tablet) 40 mg PO DAILY [facility] Last Admin: 08/05/23 08:48 Dose: 40 mg Donepezil HCl (Donepezil Hcl 10 Mg Tablet) 10 mg PO BEDTIME [facility] Last Admin: 08/04/23 20:32 Dose: 10 mg Empagliflozin (Empagliflozin 25 Mg Tablet) 25 mg PO DAILY [facility] Last Admin: 08/05/23 08:48 Dose: 25 mg Famotidine (Famotidine 20 Mg Tablet) 20 mg PO DAILY [facility] Last Admin: 08/05/23 08:48 Dose: 20 mg Haloperidol (Haloperidol 1 Mg Tablet) 1 mg PO BEDTIME [facility] Last Admin: 08/04/23 20:33 Dose: 1 mg Ibuprofen (Ibuprofen 600 Mg Tablet) 600 mg PO Q6H PRN PRN Reason: pain not relieved by tylenol Last Admin: 07/23/23 21:10 Dose: 600 mg Insulin Glargine (Insulin Glargine,Hum.Rec.Anlog 100 Unit/Ml 10 Ml Vial) 6 unit SUBCUT DAILY [facility] Last Admin: 08/05/23 08:47 Dose: 6 unit Loperamide HCl (Loperamide Hcl 2 Mg Capsule) 2 mg PO Q6H PRN PRN Reason: Loose Stool Last Admin: 07/15/23 11:14 Dose: 2 mg Magnesium Hydroxide (Milk Of Magnesia 30 Ml Oral.Susp) 30 ml PO DAILY PRN PRN Reason: Constipation Magnesium Oxide (Magnesium Oxide 400 Mg Tablet) 400 mg PO BIDPC [facility] Last Admin: 08/05/23 08:47 Dose: 400 mg Memantine (Memantine Hcl 10 Mg Tablet) 10 mg PO BID [facility] Last Admin: 08/05/23 08:48 Dose: 10 mg Metformin HCl (Metformin Hcl 1,000 Mg Tablet) 1,000 mg PO BID [facility] Last Admin: 08/05/23 08:48 Dose: 1,000 mg Olanzapine (Olanzapine 2.5 Mg Tablet) 2.5 mg PO Q4H PRN PRN Reason: anxiety/agitation Last Admin: 07/13/23 00:01 Dose: 2.5 mg Sertraline HCl (Sertraline Hcl 100 Mg Tablet) 100 mg PO DAILY [facility] Last Admin: 08/05/23 08:48 Dose: 100 mg Trazodone HCl (Trazodone Hcl 50 Mg Tablet) 50 mg PO BEDTIME MRX1 PRN PRN Reason: Insomnia Last Admin: 08/03/23 20:04 Dose: 50 mg Allergies Allergies Allergy/AdvReac Type Severity Reaction Status Date / Time No Known Allergies Allergy Verified 03/23/23 18:13 Assessment & Plan Assessment & Plan (1) Alzheimer's dementia: Status: Acute Code(s): G30.9 - Alzheimer's disease, unspecified; F02.80 - Dementia in other diseases classified elsewhere, unspecified severity, without behavioral disturbance, psychotic disturbance, mood disturbance, and anxiety Assessment and Plan: 58 years old woman with relative young age onset at Alzheimer dementia but overall clinical picture is affected by significant depression, which continues to be the predominant feature of for clinical picture. Conventional dementia medicines such as donepezil or memantine can be tried but usually do not make significant difference. I would suggest memantine 10 mg twice a day and donepezil 10 mg daily. Recently a new dementia at drug for Alzheimer was approved but only for relatively mild dementia or mild cognitive impairment type of patients. She would not qualify for that drug. Plan 1. Continue same treatment. 2. Waiting for placement. 3. Lower Haldol to 1 mg p.o. q.h.s. on July 2808/05: rapidly progressive dementia. continue current mgmt. Plan Patient with low magnesium met result discontinued core needing care with hospitalist team given p.o. magnesium monitor levels neuro consult Reason for continued inpatient stay Substantial Risk for: harm to self, inability to function and rapid decompensation Time Spent With Patient Time: Total time managing care of this patient today ____ minutes.
[2023-08-05 18:00] VITALS: BP 124/75; PULSE 75; RESP 16; TEMP 36.8; O2SAT 94
[2023-08-05] MEDS: Donepezil HCl 10 MG TABLET PO (20:48)
[2023-08-05] MEDS: HaloperidoL 1 MG TABLET PO (20:48)
[2023-08-05] MEDS: traZODone HCL 50 MG TABLET PO (20:48)
[2023-08-06 09:03] VITALS: BP 121/58; PULSE 72; RESP 16; TEMP 36.7; O2SAT 95
[2023-08-06] MEDS: Sertraline HCL 100 MG TABLET PO (09:06)
[2023-08-06] MEDS: Famotidine 20 MG TABLET PO (09:06)
[2023-08-06] MEDS: Atorvastatin Calcium 40 MG TABLET PO (09:06)
[2023-08-06] MEDS: Memantine HCl 10 MG TABLET PO ×2 (09:06→21:13)
[2023-08-06] MEDS: Empagliflozin 25 MG TABLET PO (09:06)
[2023-08-06] MEDS: Magnesium Oxide 400 MG TABLET PO ×2 (09:06→17:36)
[2023-08-06] MEDS: metFORMIN HCl 1,000 MG TABLET 1000 MG PO ×2 (09:06→21:13)
[2023-08-06] MEDS: Insulin Glargine,Hum.rec.anlog 100 UNIT/ML 10 ML VIAL 6 UNIT SUBCUT (09:11)
--- NOTE | 2023-08-06 11:21 | P.PNPSI_ITS ---
Subjective Subjective Date of Service: 08/06/23 Reason For Visit: hallucinations confusion Interim History: no change in presentation. quiet, withdrawn, neck flexed with brace on. per staff, no changes or notable events or behaviors. Mental Status Exam Mental Status Exam Patient Appearance: Appropriate Patient Orientation: Person Level of Consciousness: Awake and Appropriate Patient Behavior: Guarded and Passive Mood Description: Withdrawn Affect Description: Blunted Patient Cognition Impaired: Yes Ability to Follow Directions: Fair Speech Pattern: Clear Hallucinations: None Delusions: Not Present Thought Process: Distracted and Slowed Thinking Thought Content: positive for [place] and positive for Poverty of Content Judgement: Fair Diagnostics Vital Signs (24Hr): Vital Signs - 24 hr 08/05/23 18:00 08/06/23 09:03 Temperature 98.3 F 98.0 F Pulse Rate 75 72 Respiratory Rate 16 16 Blood Pressure 124/75 121/58 L Pulse Oximetry 94 95 Oxygen Delivery Method Room Air Room Air BMI result Body Mass Index 26.4 Labs 07/03/23 18:16 08/04/23 07:58 Labs: Laboratory Results - last 48 hr 08/04/23 09:04 POC Glucose 109 Imaging Radiology Impressions: ITS Impressions Brain MRI 04/03/23 15:30 IMPRESSION: No acute infarct, mass lesion, intracranial hemorrhage, or evidence of hydrocephalus. Mild nonspecific T2/FLAIR hyperintensity in the cerebral white matter and danny presumably on the basis of chronic microangiopathy. Cervical Spine CT 07/03/23 20:12 IMPRESSION: No acute findings within the cervical spine. The cervical central canal is not well assessed on this CT due to artifact. If weakness persists, a cervical spine MRI would be more sensitive in assessment. Medications Medications Current Medications Acetaminophen (Acetaminophen 325 Mg Tablet) 650 mg PO Q6H PRN PRN Reason: Headache/Pain Mild Scale (1-3) Last Admin: 08/03/23 20:07 Dose: 650 mg Al Hydroxide/Mg Hydroxide (Magnesium Hydrox/Alum Hydrox 30 Ml Oral.Susp) 30 ml PO Q6H PRN PRN Reason: Heartburn/Nausea Atorvastatin Calcium (Atorvastatin Calcium 40 Mg Tablet) 40 mg PO DAILY [facility] Last Admin: 08/06/23 09:06 Dose: 40 mg Donepezil HCl (Donepezil Hcl 10 Mg Tablet) 10 mg PO BEDTIME [facility] Last Admin: 08/05/23 20:48 Dose: 10 mg Empagliflozin (Empagliflozin 25 Mg Tablet) 25 mg PO DAILY [facility] Last Admin: 08/06/23 09:06 Dose: 25 mg Famotidine (Famotidine 20 Mg Tablet) 20 mg PO DAILY [facility] Last Admin: 08/06/23 09:06 Dose: 20 mg Haloperidol (Haloperidol 1 Mg Tablet) 1 mg PO BEDTIME [facility] Last Admin: 08/05/23 20:48 Dose: 1 mg Ibuprofen (Ibuprofen 600 Mg Tablet) 600 mg PO Q6H PRN PRN Reason: pain not relieved by tylenol Last Admin: 07/23/23 21:10 Dose: 600 mg Insulin Glargine (Insulin Glargine,Hum.Rec.Anlog 100 Unit/Ml 10 Ml Vial) 6 unit SUBCUT DAILY [facility] Last Admin: 08/06/23 09:11 Dose: 6 unit Loperamide HCl (Loperamide Hcl 2 Mg Capsule) 2 mg PO Q6H PRN PRN Reason: Loose Stool Last Admin: 07/15/23 11:14 Dose: 2 mg Magnesium Hydroxide (Milk Of Magnesia 30 Ml Oral.Susp) 30 ml PO DAILY PRN PRN Reason: Constipation [facility] ([facility] Mg [facility] Last Admin: 08/06/23 09:06 Dose: 400 mg Memantine (Memantine Hcl 10 Mg Tablet) 10 mg PO BID [facility] Last Admin: 08/06/23 09:06 Dose: 10 mg Metformin HCl (Metformin Hcl 1,000 Mg Tablet) 1,000 mg PO BID [facility] Last Admin: 08/06/23 09:06 Dose: 1,000 mg Olanzapine (Olanzapine 2.5 Mg Tablet) 2.5 mg PO Q4H PRN PRN Reason: anxiety/agitation Last Admin: 07/13/23 00:01 Dose: 2.5 mg Sertraline HCl (Sertraline Hcl 100 Mg Tablet) 100 mg PO DAILY [facility] Last Admin: 08/06/23 09:06 Dose: 100 mg Trazodone HCl (Trazodone Hcl 50 Mg Tablet) 50 mg PO BEDTIME MRX1 PRN PRN Reason: Insomnia Last Admin: 08/05/23 20:48 Dose: 50 mg Allergies Allergies Allergy/AdvReac Type Severity Reaction Status Date / Time No Known Allergies Allergy Verified 03/23/23 18:13 Assessment & Plan Assessment & Plan (1) Alzheimer's dementia: Status: Acute Code(s): G30.9 - Alzheimer's disease, unspecified; F02.80 - Dementia in other diseases classified elsewhere, unspecified severity, without behavioral disturbance, psychotic disturbance, mood disturbance, and anxiety Assessment and Plan: 58 years old woman with relative young age onset at Alzheimer dementia but overall clinical picture is affected by significant depression, which continues to be the predominant feature of for clinical picture. Conventional dementia medicines such as donepezil or memantine can be tried but usually do not make significant difference. I would suggest memantine 10 mg twice a day and donepezil 10 mg daily. Recently a new dementia at drug for Alzheimer was approved but only for relatively mild dementia or mild cognitive impairment type of patients. She would not qualify for that drug. Plan 1. Continue same treatment. 2. Waiting for placement. 3. Lower Haldol to 1 mg p.o. q.h.s. on July 2808/05: rapidly progressive dementia. continue current mgmt. 08/06: rapidly progressive dementia. no change in presentation. continue current mgmt. Plan Patient with low magnesium met result discontinued core needing care with hospitalist team given p.o. magnesium monitor levels neuro consult Reason for continued inpatient stay Substantial Risk for: inability to function and rapid decompensation Time Spent With Patient Time: Total time managing care of this patient today ____ minutes.
[2023-08-06 18:00] VITALS: BP 141/78; PULSE 80; RESP 18; TEMP 36.3; O2SAT 98
[2023-08-06] MEDS: Donepezil HCl 10 MG TABLET PO (21:13)
[2023-08-06] MEDS: HaloperidoL 1 MG TABLET PO (21:13)
[2023-08-07 07:53] VITALS: BP 141/61; PULSE 70; RESP 18; TEMP 36.1; O2SAT 94
[2023-08-07] MEDS: Insulin Glargine,Hum.rec.anlog 100 UNIT/ML 10 ML VIAL 6 UNIT SUBCUT (08:07)
[2023-08-07] MEDS: Empagliflozin 25 MG TABLET PO (08:07)
[2023-08-07] MEDS: Memantine HCl 10 MG TABLET PO ×2 (08:07→21:10)
[2023-08-07] MEDS: Magnesium Oxide 400 MG TABLET PO ×2 (08:07→16:48)
[2023-08-07] MEDS: metFORMIN HCl 1,000 MG TABLET 1000 MG PO ×2 (08:07→21:10)
[2023-08-07] MEDS: Sertraline HCL 100 MG TABLET PO (08:07)
[2023-08-07] MEDS: Famotidine 20 MG TABLET PO (08:07)
[2023-08-07] MEDS: Atorvastatin Calcium 40 MG TABLET PO (08:07)
[2023-08-07] MEDS: Loperamide HCl 2 MG CAPSULE PO (14:48)
--- NOTE | 2023-08-07 16:53 | P.PNPSI_ITS ---
Subjective Subjective Date of Service: 08/07/23 Reason For Visit: hallucinations confusion Subjective Notes: Conditional Voluntary Interim History: The nursing staff reported no changes in her mental status, compliant with treatment. The social work professor reported the guardian is trying to reach the previous employer of the patient to get benefits. On interview the patient denies new symptoms, waiting for placement. Mental Status Exam Mental Status Exam Patient Appearance: Appropriate Patient Orientation: Person and Situation Level of Consciousness: Awake and Appropriate Patient Behavior: Guarded and Passive Mood Description: Withdrawn Affect Description: Constricted Patient Cognition Impaired: Yes Ability to Follow Directions: Good Speech Pattern: Clear Hallucinations: None Delusions: Not Present Thought Process: Distracted and Evasive Thought Content: positive for [place] and positive for Poverty of Content Judgement: Fair Diagnostics Vital Signs (24Hr): Vital Signs - 24 hr 08/06/23 18:00 08/07/23 07:53 Temperature 97.4 F 96.9 F Pulse Rate 80 70 Respiratory Rate 18 18 Blood Pressure 141/78 H 141/61 H Pulse Oximetry 98 94 Oxygen Delivery Method Room Air Room Air BMI result Body Mass Index 26.4 Labs 07/03/23 18:16 08/04/23 07:58 Imaging Radiology Impressions: ITS Impressions Brain MRI 04/03/23 15:30 IMPRESSION: No acute infarct, mass lesion, intracranial hemorrhage, or evidence of hydrocephalus. Mild nonspecific T2/FLAIR hyperintensity in the cerebral white matter and danny presumably on the basis of chronic microangiopathy. Cervical Spine CT 07/03/23 20:12 IMPRESSION: No acute findings within the cervical spine. The cervical central canal is not well assessed on this CT due to artifact. If weakness persists, a cervical spine MRI would be more sensitive in assessment. Medications Medications Current Medications Acetaminophen (Acetaminophen 325 Mg Tablet) 650 mg PO Q6H PRN PRN Reason: Headache/Pain Mild Scale (1-3) Last Admin: 08/03/23 20:07 Dose: 650 mg Al Hydroxide/Mg Hydroxide (Magnesium Hydrox/Alum Hydrox 30 Ml Oral.Susp) 30 ml PO Q6H PRN PRN Reason: Heartburn/Nausea Atorvastatin Calcium (Atorvastatin Calcium 40 Mg Tablet) 40 mg PO DAILY [facility] Last Admin: 08/07/23 08:07 Dose: 40 mg Donepezil HCl (Donepezil Hcl 10 Mg Tablet) 10 mg PO BEDTIME [facility] Last Admin: 08/06/23 21:13 Dose: 10 mg Empagliflozin (Empagliflozin 25 Mg Tablet) 25 mg PO DAILY [facility] Last Admin: 08/07/23 08:07 Dose: 25 mg Famotidine (Famotidine 20 Mg Tablet) 20 mg PO DAILY [facility] Last Admin: 08/07/23 08:07 Dose: 20 mg Haloperidol (Haloperidol 1 Mg Tablet) 1 mg PO BEDTIME [facility] Last Admin: 08/06/23 21:13 Dose: 1 mg Ibuprofen (Ibuprofen 600 Mg Tablet) 600 mg PO Q6H PRN PRN Reason: pain not relieved by tylenol Last Admin: 07/23/23 21:10 Dose: 600 mg Insulin Glargine (Insulin Glargine,Hum.Rec.Anlog 100 Unit/Ml 10 Ml Vial) 6 unit SUBCUT DAILY [facility] Last Admin: 08/07/23 08:07 Dose: 6 unit Loperamide HCl (Loperamide Hcl 2 Mg Capsule) 2 mg PO Q6H PRN PRN Reason: Loose Stool Last Admin: 08/07/23 14:48 Dose: 2 mg Magnesium Hydroxide (Milk Of Magnesia 30 Ml Oral.Susp) 30 ml PO DAILY PRN PRN Reason: Constipation Magnesium Oxide ([facility] 400 Mg [facility]t) [facility] Last Admin: 08/07/23 16:48 Dose: 400 mg Memantine (Memantine Hcl 10 Mg Tablet) 10 mg PO BID [facility] Last Admin: 08/07/23 08:07 Dose: 10 mg Metformin HCl (Metformin Hcl 1,000 Mg Tablet) 1,000 mg PO BID [facility] Last Admin: 08/07/23 08:07 Dose: 1,000 mg Olanzapine (Olanzapine 2.5 Mg Tablet) 2.5 mg PO Q4H PRN PRN Reason: anxiety/agitation Last Admin: 07/13/23 00:01 Dose: 2.5 mg Sertraline HCl (Sertraline Hcl 100 Mg Tablet) 100 mg PO DAILY [facility] Last Admin: 08/07/23 08:07 Dose: 100 mg Trazodone HCl (Trazodone Hcl 50 Mg Tablet) 50 mg PO BEDTIME MRX1 PRN PRN Reason: Insomnia Last Admin: 08/05/23 20:48 Dose: 50 mg Allergies Allergies Allergy/AdvReac Type Severity Reaction Status Date / Time No Known Allergies Allergy Verified 03/23/23 18:13 Assessment & Plan Assessment & Plan (1) Alzheimer's dementia: Status: Acute Code(s): G30.9 - Alzheimer's disease, unspecified; F02.80 - Dementia in other diseases classified elsewhere, unspecified severity, without behavioral disturbance, psychotic disturbance, mood disturbance, and anxiety Assessment and Plan: 58 years old woman with relative young age onset at Alzheimer dementia but overall clinical picture is affected by significant depression, which continues to be the predominant feature of for clinical picture. Conventional dementia medicines such as donepezil or memantine can be tried but usually do not make significant difference. I would suggest memantine 10 mg twice a day and donepezil 10 mg daily. Recently a new dementia at drug for Alzheimer was approved but only for relatively mild dementia or mild cognitive impairment type of patients. She would not qualify for that drug. Plan 1. Continue same treatment. 2. Waiting for placement. 3. Lower Haldol to 1 mg p.o. q.h.s. on July 28 Plan Patient with low magnesium met result discontinued core needing care with hospitalist team given p.o. magnesium monitor levels neuro consult Reason for continued inpatient stay Substantial Risk for: inability to function, rapid decompensation and med/psych decompensation Time Spent With Patient Time: Total time managing care of this patient today __20__ minutes.
[2023-08-07 18:00] VITALS: BP 137/73; PULSE 79; RESP 16; TEMP 36.4; O2SAT 97
[2023-08-07] MEDS: HaloperidoL 1 MG TABLET PO (21:10)
[2023-08-07] MEDS: Donepezil HCl 10 MG TABLET PO (21:10)
[2023-08-07] MEDS: Ibuprofen 600 MG TABLET PO (21:10)
[2023-08-08] MEDS: traZODone HCL 50 MG TABLET PO (02:18)
[2023-08-08 08:01] VITALS: BP 131/66; PULSE 70; RESP 18; TEMP 36.5; O2SAT 95
[2023-08-08] MEDS: Insulin Glargine,Hum.rec.anlog 100 UNIT/ML 10 ML VIAL 6 UNIT SUBCUT (12:00)
[2023-08-08] MEDS: metFORMIN HCl 1,000 MG TABLET 1000 MG PO ×2 (12:00→20:35)
[2023-08-08] MEDS: Empagliflozin 25 MG TABLET PO (12:00)
[2023-08-08] MEDS: Sertraline HCL 100 MG TABLET PO (12:01)
[2023-08-08] MEDS: Famotidine 20 MG TABLET PO (12:01)
[2023-08-08] MEDS: Atorvastatin Calcium 40 MG TABLET PO (12:01)
[2023-08-08] MEDS: Memantine HCl 10 MG TABLET PO ×2 (12:01→20:35)
[2023-08-08] MEDS: Magnesium Oxide 400 MG TABLET PO ×2 (12:01→18:37)
--- NOTE | 2023-08-08 13:01 | HO.PSYCHPN ---
Subjective Subjective Date of Service: 08/08/23 Reason For Visit: hallucinations confusion Subjective Notes: Conditional Voluntary Interim History: The nursing staff reported the patient had been compliant with treatment no changes in her mental status. On interview the patient remains as usual, pleasantly confused, waiting for placement. Mental Status Exam Mental Status Exam Patient Appearance: Well Grooomed and Appropriate Patient Orientation: Person and Situation Level of Consciousness: Awake and Appropriate Patient Behavior: Guarded and Passive Mood Description: Withdrawn Affect Description: Constricted Patient Cognition Impaired: Yes Ability to Follow Directions: Good Speech Pattern: Clear Hallucinations: None Delusions: Not Present Thought Process: Distracted Thought Content: positive for [place] and positive for Poverty of Content Judgement: Fair Diagnostics Vital Signs (24Hr): Vital Signs - 24 hr 08/07/23 18:00 08/08/23 08:01 Temperature 97.6 F 97.7 F Pulse Rate 79 70 Respiratory Rate 16 18 Blood Pressure 137/73 131/66 Pulse Oximetry 97 95 Oxygen Delivery Method Room Air Room Air BMI result Body Mass Index 26.4 Labs 07/03/23 18:16 08/04/23 07:58 Imaging Radiology Impressions: ITS Impressions Brain MRI 04/03/23 15:30 IMPRESSION: No acute infarct, mass lesion, intracranial hemorrhage, or evidence of hydrocephalus. Mild nonspecific T2/FLAIR hyperintensity in the cerebral white matter and danny presumably on the basis of chronic microangiopathy. Cervical Spine CT 07/03/23 20:12 IMPRESSION: No acute findings within the cervical spine. The cervical central canal is not well assessed on this CT due to artifact. If weakness persists, a cervical spine MRI would be more sensitive in assessment. Medications Medications Current Medications Acetaminophen (Acetaminophen 325 Mg Tablet) 650 mg PO Q6H PRN PRN Reason: Headache/Pain Mild Scale (1-3) Last Admin: 08/03/23 20:07 Dose: 650 mg Al Hydroxide/Mg Hydroxide (Magnesium Hydrox/Alum Hydrox 30 Ml Oral.Susp) 30 ml PO Q6H PRN PRN Reason: Heartburn/Nausea Atorvastatin Calcium (Atorvastatin Calcium 40 Mg Tablet) 40 mg PO DAILY [facility] Last Admin: 08/08/23 12:01 Dose: 40 mg Donepezil HCl (Donepezil Hcl 10 Mg Tablet) 10 mg PO BEDTIME [facility] Last Admin: 08/07/23 21:10 Dose: 10 mg Empagliflozin (Empagliflozin 25 Mg Tablet) 25 mg PO DAILY [facility] Last Admin: 08/08/23 12:00 Dose: 25 mg Famotidine (Famotidine 20 Mg Tablet) 20 mg PO DAILY [facility] Last Admin: 08/08/23 12:01 Dose: 20 mg Haloperidol (Haloperidol 1 Mg Tablet) 1 mg PO BEDTIME [facility] Last Admin: 08/07/23 21:10 Dose: 1 mg Ibuprofen (Ibuprofen 600 Mg Tablet) 600 mg PO Q6H PRN PRN Reason: pain not relieved by tylenol Last Admin: 08/07/23 21:10 Dose: 600 mg Insulin Glargine (Insulin Glargine,Hum.Rec.Anlog 100 Unit/Ml 10 Ml Vial) 6 unit SUBCUT DAILY [facility] Last Admin: 08/08/23 12:00 Dose: 6 unit Loperamide HCl (Loperamide Hcl 2 Mg Capsule) 2 mg PO Q6H PRN PRN Reason: Loose Stool Last Admin: 08/07/23 14:48 Dose: 2 mg Magnesium Hydroxide (Milk Of Magnesia 30 Ml Oral.Susp) 30 ml PO DAILY PRN PRN Reason: Constipation Magnesium Oxide (Magnesium [facility]ide 400 Mg Tablet) [facility] Last Admin: 08/08/23 12:01 Dose: 400 mg Memantine (Memantine Hcl 10 Mg Tablet) 10 mg PO BID [facility] Last Admin: 08/08/23 12:01 Dose: 10 mg Metformin HCl (Metformin Hcl 1,000 Mg Tablet) 1,000 mg PO BID [facility] Last Admin: 08/08/23 12:00 Dose: 1,000 mg Olanzapine (Olanzapine 2.5 Mg Tablet) 2.5 mg PO Q4H PRN PRN Reason: anxiety/agitation Last Admin: 07/13/23 00:01 Dose: 2.5 mg Sertraline HCl (Sertraline Hcl 100 Mg Tablet) 100 mg PO DAILY [facility] Last Admin: 08/08/23 12:01 Dose: 100 mg Trazodone HCl (Trazodone Hcl 50 Mg Tablet) 50 mg PO BEDTIME MRX1 PRN PRN Reason: Insomnia Last Admin: 08/08/23 02:18 Dose: 50 mg Allergies Allergies Allergy/AdvReac Type Severity Reaction Status Date / Time No Known Allergies Allergy Verified 03/23/23 18:13 Assessment & Plan Assessment & Plan (1) Alzheimer's dementia: Status: Acute Code(s): G30.9 - Alzheimer's disease, unspecified; F02.80 - Dementia in other diseases classified elsewhere, unspecified severity, without behavioral disturbance, psychotic disturbance, mood disturbance, and anxiety Assessment and Plan: 58 years old woman with relative young age onset at Alzheimer dementia but overall clinical picture is affected by significant depression, which continues to be the predominant feature of for clinical picture. Conventional dementia medicines such as donepezil or memantine can be tried but usually do not make significant difference. I would suggest memantine 10 mg twice a day and donepezil 10 mg daily. Recently a new dementia at drug for Alzheimer was approved but only for relatively mild dementia or mild cognitive impairment type of patients. She would not qualify for that drug. Plan 1. Continue same treatment. 2. Waiting for placement. 3. Lower Haldol to 1 mg p.o. q.h.s. on July 28 Plan Patient with low magnesium met result discontinued core needing care with hospitalist team given p.o. magnesium monitor levels neuro consult Reason for continued inpatient stay Substantial Risk for: inability to function, rapid decompensation and med/psych decompensation Time Spent With Patient Time: Total time managing care of this patient today __20__ minutes.
[2023-08-08 20:08] VITALS: BP 115/74; PULSE 78; RESP 18; TEMP 36.2; O2SAT 97
[2023-08-08] MEDS: Donepezil HCl 10 MG TABLET PO (20:35)
[2023-08-08] MEDS: HaloperidoL 1 MG TABLET PO (20:36)
[2023-08-09 06:00] VITALS: BP 141/73; PULSE 78; RESP 18; TEMP 36.3; O2SAT 97
[2023-08-09] MEDS: Empagliflozin 25 MG TABLET PO (08:58)
[2023-08-09] MEDS: Famotidine 20 MG TABLET PO (08:58)
[2023-08-09] MEDS: Atorvastatin Calcium 40 MG TABLET PO (08:58)
[2023-08-09] MEDS: Insulin Glargine,Hum.rec.anlog 100 UNIT/ML 10 ML VIAL 6 UNIT SUBCUT (08:58)
[2023-08-09] MEDS: Memantine HCl 10 MG TABLET PO ×2 (08:58→19:59)
[2023-08-09] MEDS: Sertraline HCL 100 MG TABLET PO (08:58)
[2023-08-09] MEDS: Magnesium Oxide 400 MG TABLET PO ×2 (08:58→17:16)
[2023-08-09] MEDS: metFORMIN HCl 1,000 MG TABLET 1000 MG PO ×2 (08:58→19:59)
--- NOTE | 2023-08-09 14:48 | MHC.CLN ---
F/U DIET=DIABETIC 1800 KCAL. ENSURE MAX PROTEIN TID PROVIDES 450 KCALS, 90 G PROTEIN. INTAKE CONTINUES VARIABLE, USUALLY 25-50%. CONTINUE TO ENCOURAGE INTAKE ABLE. FOLLOW WEEKLY FOR INTAKE AND WEIGHT.
--- NOTE | 2023-08-09 15:01 | HO.PSYCHPN ---
Subjective Subjective Date of Service: 08/09/23 Reason For Visit: hallucinations confusion Subjective Notes: Conditional Voluntary Interim History: The nursing staff reported no changes in her mental status compliant with treatment. Yesterday she took a shower. On interview the patient denies new symptoms advanced dementia, waiting for placement. Mental Status Exam Mental Status Exam Patient Appearance: Well Grooomed and Appropriate Patient Orientation: Person and Situation Level of Consciousness: Awake and Appropriate Patient Behavior: Guarded and Passive Mood Description: Withdrawn Affect Description: Constricted Patient Cognition Impaired: Yes Ability to Follow Directions: Good Speech Pattern: Clear Hallucinations: None Delusions: Not Present Thought Process: Illogical and Distracted Thought Content: positive for [place] and positive for Poverty of Content Judgement: Fair Diagnostics Vital Signs (24Hr): Vital Signs - 24 hr 08/08/23 20:08 08/09/23 06:00 Temperature 97.1 F 97.4 F Pulse Rate 78 78 Respiratory Rate 18 18 Blood Pressure 115/74 141/73 H Pulse Oximetry 97 97 Oxygen Delivery Method Room Air Room Air BMI result Body Mass Index 26.4 Labs 07/03/23 18:16 08/04/23 07:58 Imaging Radiology Impressions: ITS Impressions Brain MRI 04/03/23 15:30 IMPRESSION: No acute infarct, mass lesion, intracranial hemorrhage, or evidence of hydrocephalus. Mild nonspecific T2/FLAIR hyperintensity in the cerebral white matter and danny presumably on the basis of chronic microangiopathy. Cervical Spine CT 07/03/23 20:12 IMPRESSION: No acute findings within the cervical spine. The cervical central canal is not well assessed on this CT due to artifact. If weakness persists, a cervical spine MRI would be more sensitive in assessment. Medications Medications Current Medications Acetaminophen (Acetaminophen 325 Mg Tablet) 650 mg PO Q6H PRN PRN Reason: Headache/Pain Mild Scale (1-3) Last Admin: 08/03/23 20:07 Dose: 650 mg Al Hydroxide/Mg Hydroxide (Magnesium Hydrox/Alum Hydrox 30 Ml Oral.Susp) 30 ml PO Q6H PRN PRN Reason: Heartburn/Nausea Atorvastatin Calcium (Atorvastatin Calcium 40 Mg Tablet) 40 mg PO DAILY [facility] Last Admin: 08/09/23 08:58 Dose: 40 mg Donepezil HCl (Donepezil Hcl 10 Mg Tablet) 10 mg PO BEDTIME [facility] Last Admin: 08/08/23 20:35 Dose: 10 mg Empagliflozin (Empagliflozin 25 Mg Tablet) 25 mg PO DAILY [facility] Last Admin: 08/09/23 08:58 Dose: 25 mg Famotidine (Famotidine 20 Mg Tablet) 20 mg PO DAILY [facility] Last Admin: 08/09/23 08:58 Dose: 20 mg Haloperidol (Haloperidol 1 Mg Tablet) 1 mg PO BEDTIME [facility] Last Admin: 08/08/23 20:36 Dose: 1 mg Ibuprofen (Ibuprofen 600 Mg Tablet) 600 mg PO Q6H PRN PRN Reason: pain not relieved by tylenol Last Admin: 08/07/23 21:10 Dose: 600 mg Insulin Glargine (Insulin Glargine,Hum.Rec.Anlog 100 Unit/Ml 10 Ml Vial) 6 unit SUBCUT DAILY [facility] Last Admin: 08/09/23 08:58 Dose: 6 unit Loperamide HCl (Loperamide Hcl 2 Mg Capsule) 2 mg PO Q6H PRN PRN Reason: Loose Stool Last Admin: 08/07/23 14:48 Dose: 2 mg Magnesium Hydroxide (Milk Of Magnesia 30 Ml Oral.Susp) 30 ml PO DAILY PRN PRN Reason: Constipation Magnesium Oxide ([facility] 400 Mg Tablet) [facility] Last Admin: 08/09/23 08:58 Dose: 400 mg Memantine (Memantine Hcl 10 Mg Tablet) 10 mg PO BID [facility] Last Admin: 08/09/23 08:58 Dose: 10 mg Metformin HCl (Metformin Hcl 1,000 Mg Tablet) 1,000 mg PO BID [facility] Last Admin: 08/09/23 08:58 Dose: 1,000 mg Olanzapine (Olanzapine 2.5 Mg Tablet) 2.5 mg PO Q4H PRN PRN Reason: anxiety/agitation Last Admin: 07/13/23 00:01 Dose: 2.5 mg Sertraline HCl (Sertraline Hcl 100 Mg Tablet) 100 mg PO DAILY [facility] Last Admin: 08/09/23 08:58 Dose: 100 mg Trazodone HCl (Trazodone Hcl 50 Mg Tablet) 50 mg PO BEDTIME MRX1 PRN PRN Reason: Insomnia Last Admin: 08/08/23 02:18 Dose: 50 mg Allergies Allergies Allergy/AdvReac Type Severity Reaction Status Date / Time No Known Allergies Allergy Verified 03/23/23 18:13 Assessment & Plan Assessment & Plan (1) Alzheimer's dementia: Status: Acute Code(s): G30.9 - Alzheimer's disease, unspecified; F02.80 - Dementia in other diseases classified elsewhere, unspecified severity, without behavioral disturbance, psychotic disturbance, mood disturbance, and anxiety Assessment and Plan: 58 years old woman with relative young age onset at Alzheimer dementia but overall clinical picture is affected by significant depression, which continues to be the predominant feature of for clinical picture. Conventional dementia medicines such as donepezil or memantine can be tried but usually do not make significant difference. I would suggest memantine 10 mg twice a day and donepezil 10 mg daily. Recently a new dementia at drug for Alzheimer was approved but only for relatively mild dementia or mild cognitive impairment type of patients. She would not qualify for that drug. Plan 1. Continue same treatment. 2. Waiting for placement. 3. Lower Haldol to 1 mg p.o. q.h.s. on July 28 Plan Patient with low magnesium met result discontinued core needing care with hospitalist team given p.o. magnesium monitor levels neuro consult Reason for continued inpatient stay Substantial Risk for: inability to function, rapid decompensation and med/psych decompensation Time Spent With Patient Time: Total time managing care of this patient today __20__ minutes.
[2023-08-09 18:00] VITALS: BP 143/87; PULSE 94; RESP 16; TEMP 35.6; O2SAT 96
[2023-08-09] MEDS: Donepezil HCl 10 MG TABLET PO (19:59)
[2023-08-09] MEDS: HaloperidoL 1 MG TABLET PO (19:59)
[2023-08-09 20:21] LABS: Glucose, Whole Blood 144 mg/dL (60-115)
[2023-08-10 07:00] VITALS: BMI 26.6
[2023-08-10 07:49] LABS: Creatinine Clr Calc Pharmacy 96.6; Estimated Glomerular Filt Rate > 60
[2023-08-10 08:36] VITALS: BP 137/75; PULSE 78; RESP 16; TEMP 36.4; O2SAT 97
[2023-08-10] MEDS: Empagliflozin 25 MG TABLET PO (08:37)
[2023-08-10] MEDS: Famotidine 20 MG TABLET PO (08:37)
[2023-08-10] MEDS: Insulin Glargine,Hum.rec.anlog 100 UNIT/ML 10 ML VIAL 6 UNIT SUBCUT (08:38)
[2023-08-10] MEDS: metFORMIN HCl 1,000 MG TABLET 1000 MG PO ×2 (08:38→20:51)
[2023-08-10] MEDS: Magnesium Oxide 400 MG TABLET PO ×2 (08:38→18:57)
[2023-08-10] MEDS: Sertraline HCL 100 MG TABLET PO (08:38)
[2023-08-10] MEDS: Memantine HCl 10 MG TABLET PO ×2 (08:38→20:51)
[2023-08-10] MEDS: Atorvastatin Calcium 40 MG TABLET PO (08:38)
--- NOTE | 2023-08-10 14:09 | HO.PSYCHPN ---
Subjective Subjective Date of Service: 08/10/23 Reason For Visit: hallucinations confusion Subjective Notes: Conditional Voluntary Interim History: The nursing staff reported no changes in her mental status. She was with her head down and the had dropped has been noticeable for several wants due to hear worsening of cognitive impairment. The social welfare clerk reported that she was referred to [facility] and the guardian is looking for his assets. On interview the patient denies new symptoms, still confused but redirectable. Mental Status Exam Mental Status Exam Patient Appearance: Appropriate Patient Orientation: Person Level of Consciousness: Awake and Appropriate Patient Behavior: Guarded and Passive Mood Description: Withdrawn Affect Description: Constricted Patient Cognition Impaired: Yes Ability to Follow Directions: Good Speech Pattern: Clear Hallucinations: None Delusions: Not Present Thought Process: Linear Thought Content: positive for [place] and positive for Poverty of Content Judgement: Fair Diagnostics Vital Signs (24Hr): Vital Signs - 24 hr 08/09/23 18:00 08/10/23 08:36 Temperature 96.1 F L 97.5 F Pulse Rate 94 78 Respiratory Rate 16 16 Blood Pressure 143/87 H 137/75 Pulse Oximetry 96 97 Oxygen Delivery Method Room Air Room Air BMI result Body Mass Index 26.6 Labs 07/03/23 18:16 08/10/23 07:30 Labs: Laboratory Results - last 48 hr 08/09/23 08/10/23 19:47 07:30 Hold Purple Top SEE NOTE Creatinine 0.57 Estim Creat Clear Calc 96.6 Estimated GFR > 60 POC Glucose 144 H Imaging Radiology Impressions: ITS Impressions Brain MRI 04/03/23 15:30 IMPRESSION: No acute infarct, mass lesion, intracranial hemorrhage, or evidence of hydrocephalus. Mild nonspecific T2/FLAIR hyperintensity in the cerebral white matter and danny presumably on the basis of chronic microangiopathy. Cervical Spine CT 07/03/23 20:12 IMPRESSION: No acute findings within the cervical spine. The cervical central canal is not well assessed on this CT due to artifact. If weakness persists, a cervical spine MRI would be more sensitive in assessment. Medications Medications Current Medications Acetaminophen (Acetaminophen 325 Mg Tablet) 650 mg PO Q6H PRN PRN Reason: Headache/Pain Mild Scale (1-3) Last Admin: 08/03/23 20:07 Dose: 650 mg Al Hydroxide/Mg Hydroxide (Magnesium Hydrox/Alum Hydrox 30 Ml Oral.Susp) 30 ml PO Q6H PRN PRN Reason: Heartburn/Nausea Atorvastatin Calcium (Atorvastatin Calcium 40 Mg Tablet) 40 mg PO DAILY [facility] Last Admin: 08/10/23 08:38 Dose: 40 mg Donepezil HCl (Donepezil Hcl 10 Mg Tablet) 10 mg PO BEDTIME [facility] Last Admin: 08/09/23 19:59 Dose: 10 mg Empagliflozin (Empagliflozin 25 Mg Tablet) 25 mg PO DAILY [facility] Last Admin: 08/10/23 08:37 Dose: 25 mg Famotidine (Famotidine 20 Mg Tablet) 20 mg PO DAILY [facility] Last Admin: 08/10/23 08:37 Dose: 20 mg Haloperidol (Haloperidol 1 Mg Tablet) 1 mg PO BEDTIME [facility] Last Admin: 08/09/23 19:59 Dose: 1 mg Ibuprofen (Ibuprofen 600 Mg Tablet) 600 mg PO Q6H PRN PRN Reason: pain not relieved by tylenol Last Admin: 08/07/23 21:10 Dose: 600 mg Insulin Glargine (Insulin Glargine,Hum.Rec.Anlog 100 Unit/Ml 10 Ml Vial) 6 unit SUBCUT DAILY [facility] Last Admin: 08/10/23 08:38 Dose: 6 unit Loperamide HCl (Loperamide Hcl 2 Mg Capsule) 2 mg PO Q6H PRN PRN Reason: Loose Stool Last Admin: 08/07/23 14:48 Dose: 2 mg Magnesium Hydroxide (Milk Of Magnesia 30 Ml Oral.Susp) 30 ml PO DAILY PRN PRN Reason: Constipation Magnesium Oxide (Magnesium Oxide 400 Mg Tablet) [facility] Last Admin: 08/10/23 08:38 Dose: 400 mg Memantine (Memantine Hcl 10 Mg Tablet) 10 mg PO BID [facility] Last Admin: 08/10/23 08:38 Dose: 10 mg Metformin HCl (Metformin Hcl 1,000 Mg Tablet) 1,000 mg PO BID [facility] Last Admin: 08/10/23 08:38 Dose: 1,000 mg Olanzapine (Olanzapine 2.5 Mg Tablet) 2.5 mg PO Q4H PRN PRN Reason: anxiety/agitation Last Admin: 07/13/23 00:01 Dose: 2.5 mg Sertraline HCl (Sertraline Hcl 100 Mg Tablet) 100 mg PO DAILY [facility] Last Admin: 08/10/23 08:38 Dose: 100 mg Trazodone HCl (Trazodone Hcl 50 Mg Tablet) 50 mg PO BEDTIME MRX1 PRN PRN Reason: Insomnia Last Admin: 08/08/23 02:18 Dose: 50 mg Allergies Allergies Allergy/AdvReac Type Severity Reaction Status Date / Time No Known Allergies Allergy Verified 03/23/23 18:13 Assessment & Plan Assessment & Plan (1) Alzheimer's dementia: Status: Acute Code(s): G30.9 - Alzheimer's disease, unspecified; F02.80 - Dementia in other diseases classified elsewhere, unspecified severity, without behavioral disturbance, psychotic disturbance, mood disturbance, and anxiety Assessment and Plan: 58 years old woman with relative young age onset at Alzheimer dementia but overall clinical picture is affected by significant depression, which continues to be the predominant feature of for clinical picture. Conventional dementia medicines such as donepezil or memantine can be tried but usually do not make significant difference. I would suggest memantine 10 mg twice a day and donepezil 10 mg daily. Recently a new dementia at drug for Alzheimer was approved but only for relatively mild dementia or mild cognitive impairment type of patients. She would not qualify for that drug. Plan 1. Continue same treatment. 2. Waiting for placement. 3. Lower Haldol to 1 mg p.o. q.h.s. on July 28 Plan Patient with low magnesium met result discontinued core needing care with hospitalist team given p.o. magnesium monitor levels neuro consult Reason for continued inpatient stay Substantial Risk for: inability to function, rapid decompensation and med/psych decompensation Time Spent With Patient Time: Total time managing care of this patient today __20__ minutes.
[2023-08-10 20:30] VITALS: BP 115/56; PULSE 66; RESP 18; TEMP 36.3; O2SAT 96
[2023-08-10] MEDS: Donepezil HCl 10 MG TABLET PO (20:51)
[2023-08-10] MEDS: HaloperidoL 1 MG TABLET PO (20:51)
[2023-08-11 07:52] VITALS: BP 132/66; PULSE 67; RESP 18; TEMP 36.4; O2SAT 94
[2023-08-11] MEDS: Magnesium Oxide 400 MG TABLET PO ×2 (08:22→17:11)
[2023-08-11] MEDS: metFORMIN HCl 1,000 MG TABLET 1000 MG PO ×2 (08:22→21:03)
[2023-08-11] MEDS: Memantine HCl 10 MG TABLET PO ×2 (08:22→21:03)
[2023-08-11] MEDS: Sertraline HCL 100 MG TABLET PO (08:22)
[2023-08-11] MEDS: Atorvastatin Calcium 40 MG TABLET PO (08:22)
[2023-08-11] MEDS: Famotidine 20 MG TABLET PO (08:22)
[2023-08-11] MEDS: Empagliflozin 25 MG TABLET PO (08:22)
[2023-08-11] MEDS: Insulin Glargine,Hum.rec.anlog 100 UNIT/ML 10 ML VIAL 6 UNIT SUBCUT (08:26)
--- NOTE | 2023-08-11 09:28 | HO.PSYCHPN ---
Subjective Subjective Date of Service: 08/11/23 Reason For Visit: hallucinations confusion Interim History: Met with patient; discussed with team Patient lying in bed with eyes closed. She said that she is not too bad today... Though she can not really articulate why that is or what is better. Patient remains with her eyes closed while talking. She says she is sleeping well; denies any SI or HI or AVH. Staff reports no change in presentation; not taking meds, not eating that much Mental Status Exam Mental Status Exam Patient Appearance: Appropriate Patient Orientation: Person Level of Consciousness: Awake and Appropriate Patient Behavior: Guarded, Passive and Poor Eye Contact Behavior Comments: Eyes remain closed Mood Description: Withdrawn Affect Description: Constricted Patient Cognition Impaired: Yes Ability to Follow Directions: Fair Speech Pattern: Clear Hallucinations: None Delusions: Not Present Thought Process: Goal Oriented Thought Content: positive for [place] and positive for Poverty of Content Judgement and Insight: Impaired Diagnostics Vital Signs (24Hr): Vital Signs - 24 hr 08/10/23 20:30 08/11/23 07:52 Temperature 97.3 F 97.6 F Pulse Rate 66 67 Respiratory Rate 18 18 Blood Pressure 115/56 L 132/66 Pulse Oximetry 96 94 Oxygen Delivery Method Room Air Room Air BMI result Body Mass Index 26.6 Labs 07/03/23 18:16 08/10/23 07:30 Labs: Laboratory Results - last 48 hr 08/09/23 08/10/23 19:47 07:30 Hold Purple Top SEE NOTE Creatinine 0.57 Estim Creat Clear Calc 96.6 Estimated GFR > 60 POC Glucose 144 H Imaging Radiology Impressions: ITS Impressions Brain MRI 04/03/23 15:30 IMPRESSION: No acute infarct, mass lesion, intracranial hemorrhage, or evidence of hydrocephalus. Mild nonspecific T2/FLAIR hyperintensity in the cerebral white matter and danny presumably on the basis of chronic microangiopathy. Cervical Spine CT 07/03/23 20:12 IMPRESSION: No acute findings within the cervical spine. The cervical central canal is not well assessed on this CT due to artifact. If weakness persists, a cervical spine MRI would be more sensitive in assessment. Medications Medications Current Medications Acetaminophen (Acetaminophen 325 Mg Tablet) 650 mg PO Q6H PRN PRN Reason: Headache/Pain Mild Scale (1-3) Last Admin: 08/03/23 20:07 Dose: 650 mg Al Hydroxide/Mg Hydroxide (Magnesium Hydrox/Alum Hydrox 30 Ml Oral.Susp) 30 ml PO Q6H PRN PRN Reason: Heartburn/Nausea Atorvastatin Calcium (Atorvastatin Calcium 40 Mg Tablet) 40 mg PO DAILY [facility] Last Admin: 08/11/23 08:22 Dose: 40 mg Donepezil HCl (Donepezil Hcl 10 Mg Tablet) 10 mg PO BEDTIME [facility] Last Admin: 08/10/23 20:51 Dose: 10 mg Empagliflozin (Empagliflozin 25 Mg Tablet) 25 mg PO DAILY [facility] Last Admin: 08/11/23 08:22 Dose: 25 mg Famotidine (Famotidine 20 Mg Tablet) 20 mg PO DAILY [facility] Last Admin: 08/11/23 08:22 Dose: 20 mg Haloperidol (Haloperidol 1 Mg Tablet) 1 mg PO BEDTIME [facility] Last Admin: 08/10/23 20:51 Dose: 1 mg Ibuprofen (Ibuprofen 600 Mg Tablet) 600 mg PO Q6H PRN PRN Reason: pain not relieved by tylenol Last Admin: 08/07/23 21:10 Dose: 600 mg Insulin Glargine (Insulin Glargine,Hum.Rec.Anlog 100 Unit/Ml 10 Ml Vial) 6 unit SUBCUT DAILY [facility] Last Admin: 08/11/23 08:26 Dose: 6 unit Loperamide HCl (Loperamide Hcl 2 Mg Capsule) 2 mg PO Q6H PRN PRN Reason: Loose Stool Last Admin: 08/07/23 14:48 Dose: 2 mg Magnesium Hydroxide (Milk Of Magnesia 30 Ml Oral.Susp) 30 ml PO DAILY PRN PRN Reason: Constipation Magnesium Oxide ([facility] 400 Mg Tablet) [facility] Last Admin: 08/11/23 08:22 Dose: 400 mg Memantine (Memantine Hcl 10 Mg Tablet) 10 mg PO BID [facility] Last Admin: 08/11/23 08:22 Dose: 10 mg Metformin HCl (Metformin Hcl 1,000 Mg Tablet) 1,000 mg PO BID [facility] Last Admin: 08/11/23 08:22 Dose: 1,000 mg Olanzapine (Olanzapine 2.5 Mg Tablet) 2.5 mg PO Q4H PRN PRN Reason: anxiety/agitation Last Admin: 07/13/23 00:01 Dose: 2.5 mg Sertraline HCl (Sertraline Hcl 100 Mg Tablet) 100 mg PO DAILY [facility] Last Admin: 08/11/23 08:22 Dose: 100 mg Trazodone HCl (Trazodone Hcl 50 Mg Tablet) 50 mg PO BEDTIME MRX1 PRN PRN Reason: Insomnia Last Admin: 08/08/23 02:18 Dose: 50 mg Allergies Allergies Allergy/AdvReac Type Severity Reaction Status Date / Time No Known Allergies Allergy Verified 03/23/23 18:13 Assessment & Plan Assessment & Plan (1) Alzheimer's dementia: Status: Acute Code(s): G30.9 - Alzheimer's disease, unspecified; F02.80 - Dementia in other diseases classified elsewhere, unspecified severity, without behavioral disturbance, psychotic disturbance, mood disturbance, and anxiety Assessment and Plan: 58 years old woman with relative young age onset at Alzheimer dementia but overall clinical picture is affected by significant depression, which continues to be the predominant feature of for clinical picture. Conventional dementia medicines such as donepezil or memantine can be tried but usually do not make significant difference. I would suggest memantine 10 mg twice a day and donepezil 10 mg daily. Recently a new dementia at drug for Alzheimer was approved but only for relatively mild dementia or mild cognitive impairment type of patients. She would not qualify for that drug. 08/11 continue current treatment plan Plan 1. Continue same treatment. 2. Waiting for placement. 3. Lower Haldol to 1 mg p.o. q.h.s. on July 28 Plan Patient with low magnesium met result discontinued core needing care with hospitalist team given p.o. magnesium monitor levels neuro consult Patient educated on: diagnosis Informed Consent: further education needed Reason for continued inpatient stay Substantial Risk for: inability to function Time Spent With Patient Time: Total time managing care of this patient today ____ minutes.
[2023-08-11 18:00] VITALS: BP 138/74; PULSE 76; RESP 18; TEMP 36.6; O2SAT 95
[2023-08-11] MEDS: HaloperidoL 1 MG TABLET PO (21:03)
[2023-08-11] MEDS: Donepezil HCl 10 MG TABLET PO (21:03)
[2023-08-11] MEDS: traZODone HCL 50 MG TABLET PO (21:03)
[2023-08-12 08:33] VITALS: BP 112/53; PULSE 60; RESP 14; TEMP 36.8; O2SAT 93
[2023-08-12] MEDS: Insulin Glargine,Hum.rec.anlog 100 UNIT/ML 10 ML VIAL 6 UNIT SUBCUT (08:34)
[2023-08-12] MEDS: Memantine HCl 10 MG TABLET PO ×2 (09:54→20:14)
[2023-08-12] MEDS: Sertraline HCL 100 MG TABLET PO (09:54)
[2023-08-12] MEDS: Atorvastatin Calcium 40 MG TABLET PO (09:54)
[2023-08-12] MEDS: metFORMIN HCl 1,000 MG TABLET 1000 MG PO ×2 (09:54→20:14)
[2023-08-12] MEDS: Famotidine 20 MG TABLET PO (09:55)
[2023-08-12] MEDS: Empagliflozin 25 MG TABLET PO (09:55)
[2023-08-12] MEDS: Magnesium Oxide 400 MG TABLET PO (09:55)
--- NOTE | 2023-08-12 12:35 | HO.PSYCHPN ---
Subjective Subjective Date of Service: 08/12/23 Reason For Visit: hallucinations confusion Interim History: Met with patient; discussed with team Patient reports she is feeling well. She has no complaints. She is seen walking the barrow with her head down. She speaks softly. She has no complaints. She reports no side effects with her medications. Denies SI/HI. She has minimal interaction with others. She is compliant with care. Review of Systems Review of Systems Unremarkable Yes all other systems are reviewed and are negative and Unobtainable due to mental status Constitutional: Reports as per HPI, Denies chills, Denies fatigue, Denies fever(s) and Denies headache(s) Denies headache(s) Cardiovascular: Denies chest pain and Denies dyspnea Respiratory: Denies cough and Denies dyspnea Gastrointestinal: Denies abdominal pain, Denies constipation and Denies vomiting Denies headache(s) and Denies focal weakness Psychiatric: Denies auditory hallucinations, Reports hallucinations (Per the patient's daughter. Patient denies this), Denies tactile hallucinations and Denies suicidal ideation Endocrine: Denies fatigue Mental Status Exam Mental Status Exam Narrative: Does require lots of prompting around basic activities. Patient Appearance: Appropriate Patient Orientation: Person Level of Consciousness: Awake and Appropriate Patient Behavior: Guarded, Passive and Poor Eye Contact Behavior Comments: Eyes remain closed Mood Description: Withdrawn Affect Description: Constricted Patient Cognition Impaired: Yes Ability to Follow Directions: Fair Speech Pattern: Clear Memory Description: Working Impaired Diagnostics Vital Signs (24Hr): Vital Signs - 24 hr 08/11/23 18:00 08/12/23 08:33 Temperature 97.8 F 98.3 F Pulse Rate 76 60 Respiratory Rate 18 14 Blood Pressure 138/74 112/53 L Pulse Oximetry 95 93 Oxygen Delivery Method Room Air Room Air BMI result Body Mass Index 26.6 Labs 07/03/23 18:16 08/10/23 07:30 Imaging Radiology Impressions: ITS Impressions Brain MRI 04/03/23 15:30 IMPRESSION: No acute infarct, mass lesion, intracranial hemorrhage, or evidence of hydrocephalus. Mild nonspecific T2/FLAIR hyperintensity in the cerebral white matter and danny presumably on the basis of chronic microangiopathy. Cervical Spine CT 07/03/23 20:12 IMPRESSION: No acute findings within the cervical spine. The cervical central canal is not well assessed on this CT due to artifact. If weakness persists, a cervical spine MRI would be more sensitive in assessment. Medications Medications Current Medications Acetaminophen (Acetaminophen 325 Mg Tablet) 650 mg PO Q6H PRN PRN Reason: Headache/Pain Mild Scale (1-3) Last Admin: 08/03/23 20:07 Dose: 650 mg Al Hydroxide/Mg Hydroxide (Magnesium Hydrox/Alum Hydrox 30 Ml Oral.Susp) 30 ml PO Q6H PRN PRN Reason: Heartburn/Nausea Atorvastatin Calcium (Atorvastatin Calcium 40 Mg Tablet) 40 mg PO DAILY [facility] Last Admin: 08/12/23 09:54 Dose: 40 mg Donepezil HCl (Donepezil Hcl 10 Mg Tablet) 10 mg PO BEDTIME [facility] Last Admin: 08/11/23 21:03 Dose: 10 mg Empagliflozin (Empagliflozin 25 Mg Tablet) 25 mg PO DAILY [facility] Last Admin: 08/12/23 09:55 Dose: 25 mg Famotidine (Famotidine 20 Mg Tablet) 20 mg PO DAILY [facility] Last Admin: 08/12/23 09:55 Dose: 20 mg Haloperidol (Haloperidol 1 Mg Tablet) 1 mg PO BEDTIME [facility] Last Admin: 08/11/23 21:03 Dose: 1 mg Ibuprofen (Ibuprofen 600 Mg Tablet) 600 mg PO Q6H PRN PRN Reason: pain not relieved by tylenol Last Admin: 08/07/23 21:10 Dose: 600 mg Insulin Glargine (Insulin Glargine,Hum.Rec.Anlog 100 Unit/Ml 10 Ml Vial) 6 unit SUBCUT DAILY [facility] Last Admin: 08/12/23 08:34 Dose: 6 unit Loperamide HCl (Loperamide Hcl 2 Mg Capsule) 2 mg PO Q6H PRN PRN Reason: Loose Stool Last Admin: 08/07/23 14:48 Dose: 2 mg Magnesium Hydroxide (Milk Of Magnesia 30 Ml Oral.Susp) 30 ml PO DAILY PRN PRN Reason: Constipation Magnesium Oxide (Magnesium [facility]ide 400 Mg Tablet) [facility] Last Admin: 08/12/23 09:55 Dose: 400 mg Memantine (Memantine Hcl 10 Mg Tablet) 10 mg PO BID [facility] Last Admin: 08/12/23 09:54 Dose: 10 mg Metformin HCl (Metformin Hcl 1,000 Mg Tablet) 1,000 mg PO BID [facility] Last Admin: 08/12/23 09:54 Dose: 1,000 mg Olanzapine (Olanzapine 2.5 Mg Tablet) 2.5 mg PO Q4H PRN PRN Reason: anxiety/agitation Last Admin: 07/13/23 00:01 Dose: 2.5 mg Sertraline HCl (Sertraline Hcl 100 Mg Tablet) 100 mg PO DAILY [facility] Last Admin: 08/12/23 09:54 Dose: 100 mg Trazodone HCl (Trazodone Hcl 50 Mg Tablet) 50 mg PO BEDTIME MRX1 PRN PRN Reason: Insomnia Last Admin: 08/11/23 21:03 Dose: 50 mg Allergies Allergies Allergy/AdvReac Type Severity Reaction Status Date / Time No Known Allergies Allergy Verified 03/23/23 18:13 Assessment & Plan Assessment & Plan (1) Alzheimer's dementia: Status: Acute Code(s): G30.9 - Alzheimer's disease, unspecified; F02.80 - Dementia in other diseases classified elsewhere, unspecified severity, without behavioral disturbance, psychotic disturbance, mood disturbance, and anxiety Assessment and Plan: 58 years old woman with relative young age onset at Alzheimer dementia but overall clinical picture is affected by significant depression, which continues to be the predominant feature of for clinical picture. Conventional dementia medicines such as donepezil or memantine can be tried but usually do not make significant difference. I would suggest memantine 10 mg twice a day and donepezil 10 mg daily. Recently a new dementia at drug for Alzheimer was approved but only for relatively mild dementia or mild cognitive impairment type of patients. She would not qualify for that drug. 08/11 continue current treatment plan Plan 1. Continue same treatment. 2. Waiting for placement. 3. Lower Haldol to 1 mg p.o. q.h.s. on July 2808/12: Continue treatment plan as is. Plan Patient with low magnesium met result discontinued core needing care with hospitalist team given p.o. magnesium monitor levels neuro consult Reason for continued inpatient stay Substantial Risk for: inability to function and rapid decompensation Time Spent With Patient Time: Total time managing care of this patient today ____ minutes.
[2023-08-12 19:35] VITALS: BP 113/58; PULSE 65; RESP 16; TEMP 36.8; O2SAT 97
[2023-08-12] MEDS: HaloperidoL 1 MG TABLET PO (20:14)
[2023-08-12] MEDS: Donepezil HCl 10 MG TABLET PO (20:14)
[2023-08-13 09:04] VITALS: BP 109/69; PULSE 80; RESP 14; TEMP 36.6; O2SAT 97
[2023-08-13] MEDS: Empagliflozin 25 MG TABLET PO (09:07)
[2023-08-13] MEDS: Memantine HCl 10 MG TABLET PO ×2 (09:08→20:30)
[2023-08-13] MEDS: Sertraline HCL 100 MG TABLET PO (09:08)
[2023-08-13] MEDS: Insulin Glargine,Hum.rec.anlog 100 UNIT/ML 10 ML VIAL 6 UNIT SUBCUT (09:08)
[2023-08-13] MEDS: Famotidine 20 MG TABLET PO (09:08)
[2023-08-13] MEDS: Atorvastatin Calcium 40 MG TABLET PO (09:08)
--- NOTE | 2023-08-13 19:08 | HO.PSYCHPN ---
Subjective Subjective Date of Service: 08/13/23 Reason For Visit: hallucinations confusion Interim History: Met with patient; discussed with team Patient reports she is feeling well. She has no complaints. She is seen walking the barrow with her head down. She speaks softly. She has no complaints. She reports no side effects with her medications. Denies SI/HI. She has minimal interaction with others. She is compliant with care. Review of Systems Review of Systems Unremarkable Yes all other systems are reviewed and are negative and Unobtainable due to mental status Constitutional: Reports as per HPI, Denies chills, Denies fatigue, Denies fever(s) and Denies headache(s) Denies headache(s) Cardiovascular: Denies chest pain and Denies dyspnea Respiratory: Denies cough and Denies dyspnea Gastrointestinal: Denies abdominal pain, Denies constipation and Denies vomiting Denies headache(s) and Denies focal weakness Psychiatric: Denies auditory hallucinations, Reports hallucinations (Per the patient's daughter. Patient denies this), Denies tactile hallucinations and Denies suicidal ideation Endocrine: Denies fatigue Mental Status Exam Mental Status Exam Narrative: Does require lots of prompting around basic activities. Patient Appearance: Appropriate Patient Orientation: Person Level of Consciousness: Awake and Appropriate Patient Behavior: Guarded, Passive and Poor Eye Contact Behavior Comments: Eyes remain closed Mood Description: Withdrawn Affect Description: Constricted Patient Cognition Impaired: Yes Ability to Follow Directions: Fair Speech Pattern: Clear Memory Description: Working Impaired Diagnostics Vital Signs (24Hr): Vital Signs - 24 hr 08/12/23 19:35 08/13/23 09:04 Temperature 98.2 F 97.9 F Pulse Rate 65 80 Respiratory Rate 16 14 Blood Pressure 113/58 L 109/69 Pulse Oximetry 97 97 Oxygen Delivery Method Room Air Room Air BMI result Body Mass Index 26.6 Labs 07/03/23 18:16 08/10/23 07:30 Imaging Radiology Impressions: ITS Impressions Brain MRI 04/03/23 15:30 IMPRESSION: No acute infarct, mass lesion, intracranial hemorrhage, or evidence of hydrocephalus. Mild nonspecific T2/FLAIR hyperintensity in the cerebral white matter and danny presumably on the basis of chronic microangiopathy. Cervical Spine CT 07/03/23 20:12 IMPRESSION: No acute findings within the cervical spine. The cervical central canal is not well assessed on this CT due to artifact. If weakness persists, a cervical spine MRI would be more sensitive in assessment. Medications Medications Current Medications Acetaminophen (Acetaminophen 325 Mg Tablet) 650 mg PO Q6H PRN PRN Reason: Headache/Pain Mild Scale (1-3) Last Admin: 08/03/23 20:07 Dose: 650 mg Al Hydroxide/Mg Hydroxide (Magnesium Hydrox/Alum Hydrox 30 Ml Oral.Susp) 30 ml PO Q6H PRN PRN Reason: Heartburn/Nausea Atorvastatin Calcium (Atorvastatin Calcium 40 Mg Tablet) 40 mg PO DAILY [facility] Last Admin: 08/13/23 09:08 Dose: 40 mg Donepezil HCl (Donepezil Hcl 10 Mg Tablet) 10 mg PO BEDTIME [facility] Last Admin: 08/12/23 20:14 Dose: 10 mg Empagliflozin (Empagliflozin 25 Mg Tablet) 25 mg PO DAILY [facility] Last Admin: 08/13/23 09:07 Dose: 25 mg Famotidine (Famotidine 20 Mg Tablet) 20 mg PO DAILY [facility] Last Admin: 08/13/23 09:08 Dose: 20 mg Haloperidol (Haloperidol 1 Mg Tablet) 1 mg PO BEDTIME [facility] Last Admin: 08/12/23 20:14 Dose: 1 mg Ibuprofen (Ibuprofen 600 Mg Tablet) 600 mg PO Q6H PRN PRN Reason: pain not relieved by tylenol Last Admin: 08/07/23 21:10 Dose: 600 mg Insulin Glargine (Insulin Glargine,Hum.Rec.Anlog 100 Unit/Ml 10 Ml Vial) 6 unit SUBCUT DAILY [facility] Last Admin: 08/13/23 09:08 Dose: 6 unit Loperamide HCl (Loperamide Hcl 2 Mg Capsule) 2 mg PO Q6H PRN PRN Reason: Loose Stool Last Admin: 08/07/23 14:48 Dose: 2 mg Magnesium Hydroxide (Milk Of Magnesia 30 Ml Oral.Susp) 30 ml PO DAILY PRN PRN Reason: Constipation Magnesium Oxide (Magnesium [facility]ide 400 Mg Tablet) [facility] Last Admin: 08/13/23 16:18 Dose: 400 mg Memantine (Memantine Hcl 10 Mg Tablet) 10 mg PO BID [facility] Last Admin: 08/13/23 09:08 Dose: 10 mg Metformin HCl (Metformin Hcl 1,000 Mg Tablet) 1,000 mg PO BID [facility] Last Admin: 08/13/23 09:07 Dose: 1,000 mg Olanzapine (Olanzapine 2.5 Mg Tablet) 2.5 mg PO Q4H PRN PRN Reason: anxiety/agitation Last Admin: 07/13/23 00:01 Dose: 2.5 mg Sertraline HCl (Sertraline Hcl 100 Mg Tablet) 100 mg PO DAILY [facility] Last Admin: 08/13/23 09:08 Dose: 100 mg Trazodone HCl (Trazodone Hcl 50 Mg Tablet) 50 mg PO BEDTIME MRX1 PRN PRN Reason: Insomnia Last Admin: 08/13/23 02:07 Dose: 50 mg Allergies Allergies Allergy/AdvReac Type Severity Reaction Status Date / Time No Known Allergies Allergy Verified 03/23/23 18:13 Assessment & Plan Assessment & Plan (1) Alzheimer's dementia: Status: Acute Code(s): G30.9 - Alzheimer's disease, unspecified; F02.80 - Dementia in other diseases classified elsewhere, unspecified severity, without behavioral disturbance, psychotic disturbance, mood disturbance, and anxiety Assessment and Plan: 58 years old woman with relative young age onset at Alzheimer dementia but overall clinical picture is affected by significant depression, which continues to be the predominant feature of for clinical picture. Conventional dementia medicines such as donepezil or memantine can be tried but usually do not make significant difference. I would suggest memantine 10 mg twice a day and donepezil 10 mg daily. Recently a new dementia at drug for Alzheimer was approved but only for relatively mild dementia or mild cognitive impairment type of patients. She would not qualify for that drug. 08/11 continue current treatment plan Plan 1. Continue same treatment. 2. Waiting for placement. 3. Lower Haldol to 1 mg p.o. q.h.s. on July 2808/12: Continue treatment plan as is. 08/13: Continue treatment plan. Plan Patient with low magnesium met result discontinued core needing care with hospitalist team given p.o. magnesium monitor levels neuro consult Reason for continued inpatient stay Substantial Risk for: inability to function and rapid decompensation Time Spent With Patient Time: Total time managing care of this patient today ____ minutes.
[2023-08-13 19:35] VITALS: BP 127/69; PULSE 82; RESP 16; TEMP 36.6; O2SAT 97
[2023-08-13] MEDS: Donepezil HCl 10 MG TABLET PO (20:30)
[2023-08-13] MEDS: HaloperidoL 1 MG TABLET PO (20:31)
[2023-08-14 08:38] VITALS: BP 164/96; PULSE 60; RESP 16; TEMP 36.4; O2SAT 96
[2023-08-14] MEDS: Famotidine 20 MG TABLET PO (08:40)
[2023-08-14] MEDS: Memantine HCl 10 MG TABLET PO ×2 (08:40→20:31)
[2023-08-14] MEDS: Sertraline HCL 100 MG TABLET PO (08:40)
[2023-08-14] MEDS: Insulin Glargine,Hum.rec.anlog 100 UNIT/ML 10 ML VIAL 6 UNIT SUBCUT (08:40)
--- NOTE | 2023-08-14 15:13 | HO.PSYCHPN ---
Subjective Subjective Date of Service: 08/14/23 Reason For Visit: hallucinations confusion Interim History: Patient was seen and discussed in rounds today. Records and plans were reviewed. She has been stable, pleasant. Compliant with medications. No complaints or side effects. Eating and sleeping well Review of Systems Review of Systems Yes all other systems are reviewed and are negative Mental Status Exam Mental Status Exam Narrative: Does require lots of prompting around basic activities. Patient Appearance: Appropriate Patient Orientation: Person Level of Consciousness: Awake and Appropriate Patient Behavior: Guarded, Passive and Poor Eye Contact Behavior Comments: Eyes remain closed Mood Description: Withdrawn Affect Description: Constricted Patient Cognition Impaired: Yes Ability to Follow Directions: Fair Speech Pattern: Clear Memory Description: Working Impaired Diagnostics Vital Signs (24Hr): Vital Signs - 24 hr 08/13/23 19:35 08/14/23 08:38 Temperature 97.8 F 97.6 F Pulse Rate 82 60 Respiratory Rate 16 16 Blood Pressure 127/69 164/96 H Pulse Oximetry 97 96 Oxygen Delivery Method Room Air Room Air BMI result Body Mass Index 26.6 Labs 07/03/23 18:16 08/10/23 07:30 Imaging Radiology Impressions: ITS Impressions Brain MRI 04/03/23 15:30 IMPRESSION: No acute infarct, mass lesion, intracranial hemorrhage, or evidence of hydrocephalus. Mild nonspecific T2/FLAIR hyperintensity in the cerebral white matter and danny presumably on the basis of chronic microangiopathy. Cervical Spine CT 07/03/23 20:12 IMPRESSION: No acute findings within the cervical spine. The cervical central canal is not well assessed on this CT due to artifact. If weakness persists, a cervical spine MRI would be more sensitive in assessment. Medications Medications Current Medications Acetaminophen (Acetaminophen 325 Mg Tablet) 650 mg PO Q6H PRN PRN Reason: Headache/Pain Mild Scale (1-3) Last Admin: 08/03/23 20:07 Dose: 650 mg Al Hydroxide/Mg Hydroxide (Magnesium Hydrox/Alum Hydrox 30 Ml Oral.Susp) 30 ml PO Q6H PRN PRN Reason: Heartburn/Nausea Atorvastatin Calcium (Atorvastatin Calcium 40 Mg Tablet) 40 mg PO DAILY [facility] Last Admin: 08/14/23 08:40 Dose: 40 mg Donepezil HCl (Donepezil Hcl 10 Mg Tablet) 10 mg PO BEDTIME [facility]EN Last Admin: 08/13/23 20:30 Dose: 10 mg Empagliflozin (Empagliflozin 25 Mg Tablet) 25 mg PO DAILY [facility] Last Admin: 08/14/23 08:40 Dose: 25 mg Famotidine (Famotidine 20 Mg Tablet) 20 mg PO DAILY [facility] Last Admin: 08/14/23 08:40 Dose: 20 mg Haloperidol (Haloperidol 1 Mg Tablet) 1 mg PO BEDTIME [facility] Last Admin: 08/13/23 20:31 Dose: 1 mg Ibuprofen (Ibuprofen 600 Mg Tablet) 600 mg PO Q6H PRN PRN Reason: pain not relieved by tylenol Last Admin: 08/07/23 21:10 Dose: 600 mg Insulin Glargine (Insulin Glargine,Hum.Rec.Anlog 100 Unit/Ml 10 Ml Vial) 6 unit SUBCUT DAILY [facility] Last Admin: 08/14/23 08:40 Dose: 6 unit Loperamide HCl (Loperamide Hcl 2 Mg Capsule) 2 mg PO Q6H PRN PRN Reason: Loose Stool Last Admin: 08/07/23 14:48 Dose: 2 mg Magnesium Hydroxide (Milk Of Magnesia 30 Ml Oral.Susp) 30 ml PO DAILY PRN PRN Reason: Constipation Magnesium Oxide (Magnesium [facility]ide 400 Mg Tablet) [facility] Last Admin: 08/14/23 08:40 Dose: 400 mg Memantine (Memantine Hcl 10 Mg Tablet) 10 mg PO BID [facility] Last Admin: 08/14/23 08:40 Dose: 10 mg Metformin HCl (Metformin Hcl 1,000 Mg Tablet) 1,000 mg PO BID [facility] Last Admin: 08/14/23 08:40 Dose: 1,000 mg Olanzapine (Olanzapine 2.5 Mg Tablet) 2.5 mg PO Q4H PRN PRN Reason: anxiety/agitation Last Admin: 07/13/23 00:01 Dose: 2.5 mg Sertraline HCl (Sertraline Hcl 100 Mg Tablet) 100 mg PO DAILY [facility] Last Admin: 08/14/23 08:40 Dose: 100 mg Trazodone HCl (Trazodone Hcl 50 Mg Tablet) 50 mg PO BEDTIME MRX1 PRN PRN Reason: Insomnia Last Admin: 08/13/23 20:30 Dose: 50 mg Allergies Allergies Allergy/AdvReac Type Severity Reaction Status Date / Time No Known Allergies Allergy Verified 03/23/23 18:13 Assessment & Plan Assessment & Plan (1) Alzheimer's dementia: Status: Acute Code(s): G30.9 - Alzheimer's disease, unspecified; F02.80 - Dementia in other diseases classified elsewhere, unspecified severity, without behavioral disturbance, psychotic disturbance, mood disturbance, and anxiety Assessment and Plan: 58 years old woman with relative young age onset at Alzheimer dementia but overall clinical picture is affected by significant depression, which continues to be the predominant feature of for clinical picture. Conventional dementia medicines such as donepezil or memantine can be tried but usually do not make significant difference. I would suggest memantine 10 mg twice a day and donepezil 10 mg daily. Recently a new dementia at drug for Alzheimer was approved but only for relatively mild dementia or mild cognitive impairment type of patients. She would not qualify for that drug. 08/11 continue current treatment plan Plan 1. Continue same treatment. 2. Waiting for placement. 3. Lower Haldol to 1 mg p.o. q.h.s. on July 2808/12: Continue treatment plan as is. 08/13: Continue treatment plan. Plan Patient with low magnesium met result discontinued core needing care with hospitalist team given p.o. magnesium monitor levels neuro consult Reason for continued inpatient stay Substantial Risk for: med/psych decompensation Time Spent With Patient Time: Total time managing care of this patient today ____ minutes.
[2023-08-14 20:05] VITALS: BP 132/73; PULSE 75; RESP 18; TEMP 36.7; O2SAT 97
[2023-08-14] MEDS: HaloperidoL 1 MG TABLET PO (20:31)
[2023-08-15 09:50] VITALS: BP 117/65; PULSE 73; TEMP 36.4; O2SAT 97
[2023-08-15] MEDS: Sertraline HCL 100 MG TABLET PO (09:51)
[2023-08-15] MEDS: Memantine HCl 10 MG TABLET PO ×2 (09:51→20:22)
[2023-08-15] MEDS: Famotidine 20 MG TABLET PO (09:51)
[2023-08-15] MEDS: Insulin Glargine,Hum.rec.anlog 100 UNIT/ML 10 ML VIAL 6 UNIT SUBCUT (09:54)
--- NOTE | 2023-08-15 12:12 | HO.PSYCHPN ---
Subjective Subjective Date of Service: 08/15/23 Reason For Visit: hallucinations confusion Subjective Notes: Conditional Voluntary Interim History: The nursing staff reported the patient had been visible in the unit, wandering pleasant, with good p.o. intake. Last night he slept 5 hours. On interview the patient is confused but redirectable no changes in her mental status. Waiting for placement. Mental Status Exam Mental Status Exam Patient Appearance: Appropriate Patient Orientation: Person Level of Consciousness: Awake Patient Behavior: Guarded and Passive Mood Description: Withdrawn Affect Description: Constricted Patient Cognition Impaired: Yes Ability to Follow Directions: Good Speech Pattern: Clear Hallucinations: None Delusions: Not Present Thought Process: Distracted and Slowed Thinking Thought Content: positive for [place], positive for Circumstantial and positive for Poverty of Content Judgement: Fair Diagnostics Vital Signs (24Hr): Vital Signs - 24 hr 08/14/23 20:05 08/15/23 09:50 Temperature 98.1 F 97.5 F Pulse Rate 75 73 Respiratory Rate 18 Blood Pressure 132/73 117/65 Pulse Oximetry 97 97 Oxygen Delivery Method Room Air Room Air BMI result Body Mass Index 26.6 Labs 07/03/23 18:16 08/10/23 07:30 Imaging Radiology Impressions: ITS Impressions Brain MRI 04/03/23 15:30 IMPRESSION: No acute infarct, mass lesion, intracranial hemorrhage, or evidence of hydrocephalus. Mild nonspecific T2/FLAIR hyperintensity in the cerebral white matter and danny presumably on the basis of chronic microangiopathy. Cervical Spine CT 07/03/23 20:12 IMPRESSION: No acute findings within the cervical spine. The cervical central canal is not well assessed on this CT due to artifact. If weakness persists, a cervical spine MRI would be more sensitive in assessment. Medications Medications Current Medications Acetaminophen (Acetaminophen 325 Mg Tablet) 650 mg PO Q6H PRN PRN Reason: Headache/Pain Mild Scale (1-3) Last Admin: 08/03/23 20:07 Dose: 650 mg Al Hydroxide/Mg Hydroxide (Magnesium Hydrox/Alum Hydrox 30 Ml Oral.Susp) 30 ml PO Q6H PRN PRN Reason: Heartburn/Nausea Atorvastatin Calcium (Atorvastatin Calcium 40 Mg Tablet) 40 mg PO DAILY [facility] Last Admin: 08/15/23 09:51 Dose: 40 mg Donepezil HCl (Donepezil Hcl 10 Mg Tablet) 10 mg PO BEDTIME [facility] Last Admin: 08/14/23 20:31 Dose: 10 mg Empagliflozin (Empagliflozin 25 Mg Tablet) 25 mg PO DAILY [facility] Last Admin: 08/15/23 09:51 Dose: 25 mg Famotidine (Famotidine 20 Mg Tablet) 20 mg PO DAILY [facility] Last Admin: 08/15/23 09:51 Dose: 20 mg Haloperidol (Haloperidol 1 Mg Tablet) 1 mg PO BEDTIME [facility] Last Admin: 08/14/23 20:31 Dose: 1 mg Ibuprofen (Ibuprofen 600 Mg Tablet) 600 mg PO Q6H PRN PRN Reason: pain not relieved by tylenol Last Admin: 08/07/23 21:10 Dose: 600 mg Insulin Glargine (Insulin Glargine,Hum.Rec.Anlog 100 Unit/Ml 10 Ml Vial) 6 unit SUBCUT DAILY [facility] Last Admin: 08/15/23 09:54 Dose: 6 unit Loperamide HCl (Loperamide Hcl 2 Mg Capsule) 2 mg PO Q6H PRN PRN Reason: Loose Stool Last Admin: 08/07/23 14:48 Dose: 2 mg Magnesium Hydroxide (Milk Of Magnesia 30 Ml Oral.Susp) 30 ml PO DAILY PRN PRN Reason: Constipation Magnesium Oxide (Magnesium [facility] 400 Mg Tablet) [facility] Last Admin: 08/15/23 09:51 Dose: 400 mg Memantine (Memantine Hcl 10 Mg Tablet) 10 mg PO BID [facility] Last Admin: 08/15/23 09:51 Dose: 10 mg Metformin HCl (Metformin Hcl 1,000 Mg Tablet) 1,000 mg PO BID [facility] Last Admin: 08/15/23 09:51 Dose: 1,000 mg Olanzapine (Olanzapine 2.5 Mg Tablet) 2.5 mg PO Q4H PRN PRN Reason: anxiety/agitation Last Admin: 07/13/23 00:01 Dose: 2.5 mg Sertraline HCl (Sertraline Hcl 100 Mg Tablet) 100 mg PO DAILY [facility] Last Admin: 08/15/23 09:51 Dose: 100 mg Trazodone HCl (Trazodone Hcl 50 Mg Tablet) 50 mg PO BEDTIME MRX1 PRN PRN Reason: Insomnia Last Admin: 08/13/23 20:30 Dose: 50 mg Allergies Allergies Allergy/AdvReac Type Severity Reaction Status Date / Time No Known Allergies Allergy Verified 03/23/23 18:13 Assessment & Plan Assessment & Plan (1) Alzheimer's dementia: Status: Acute Code(s): G30.9 - Alzheimer's disease, unspecified; F02.80 - Dementia in other diseases classified elsewhere, unspecified severity, without behavioral disturbance, psychotic disturbance, mood disturbance, and anxiety Assessment and Plan: 58 years old woman with relative young age onset at Alzheimer dementia but overall clinical picture is affected by significant depression, which continues to be the predominant feature of for clinical picture. Conventional dementia medicines such as donepezil or memantine can be tried but usually do not make significant difference. I would suggest memantine 10 mg twice a day and donepezil 10 mg daily. Recently a new dementia at drug for Alzheimer was approved but only for relatively mild dementia or mild cognitive impairment type of patients. She would not qualify for that drug. 08/11 continue current treatment plan Plan 1. Continue same treatment. 2. Waiting for placement. 3. Lower Haldol to 1 mg p.o. q.h.s. on July 28 Plan Patient with low magnesium met result discontinued core needing care with hospitalist team given p.o. magnesium monitor levels neuro consult Reason for continued inpatient stay Substantial Risk for: inability to function, rapid decompensation and med/psych decompensation Time Spent With Patient Time: Total time managing care of this patient today ___20_ minutes.
[2023-08-15 18:00] VITALS: BP 127/68; PULSE 76; RESP 17; TEMP 36.4; O2SAT 96
[2023-08-15] MEDS: HaloperidoL 1 MG TABLET PO (20:22)
[2023-08-16] MEDS: Acetaminophen 325 MG TABLET 650 MG PO ×2 (06:57→21:30)
[2023-08-16 08:36] VITALS: BP 120/71; PULSE 59; RESP 16; TEMP 36.5; O2SAT 97
[2023-08-16] MEDS: Famotidine 20 MG TABLET PO (09:10)
[2023-08-16] MEDS: Memantine HCl 10 MG TABLET PO ×2 (09:10→20:16)
[2023-08-16] MEDS: Sertraline HCL 100 MG TABLET PO (09:10)
[2023-08-16] MEDS: Insulin Glargine,Hum.rec.anlog 100 UNIT/ML 10 ML VIAL 6 UNIT SUBCUT (09:15)
--- NOTE | 2023-08-16 14:10 | MHC.CLN ---
F/U DIET=DIABETIC 1800 KCAL. ENSURE MAX PROTEIN TID PROVIDES 450 KCALS, 90 G PROTEIN. INTAKE CONTINUES VARIABLE. DID NOT EAT BREAKFAST TODAY, ATE 50% LUNCH. CONTINUE TO ENCOURAGE INTAKE ABLE. FOLLOW WEEKLY FOR INTAKE AND WEIGHT.
--- NOTE | 2023-08-16 15:36 | HO.PSYCHPN ---
Subjective Subjective Date of Service: 08/16/23 Reason For Visit: hallucinations confusion Subjective Notes: Conditional Voluntary Interim History: The nursing staff reported the patient woke up at 06:00 o'clock in the morning with back pain and took Tylenol with for improvement. The social service worker is waiting for the [facility] facility financial clearance. On interview the patient denies new symptoms, waiting for placement. Mental Status Exam Mental Status Exam Patient Appearance: Appropriate Patient Orientation: Person and Situation Level of Consciousness: Awake and Appropriate Patient Behavior: Guarded and Passive Mood Description: Calm Affect Description: Constricted Patient Cognition Impaired: Yes Ability to Follow Directions: Good Speech Pattern: Clear Hallucinations: None Delusions: Not Present Thought Process: Linear Thought Content: positive for Circumstantial Judgement: Poor Diagnostics Vital Signs (24Hr): Vital Signs - 24 hr 08/15/23 18:00 08/16/23 08:36 Temperature 97.5 F 97.7 F Pulse Rate 76 59 Respiratory Rate 17 16 Blood Pressure 127/68 120/71 Pulse Oximetry 96 97 Oxygen Delivery Method Room Air Room Air BMI result Body Mass Index 26.6 Labs 07/03/23 18:16 08/17/23 07:54 Imaging Radiology Impressions: ITS Impressions Brain MRI 04/03/23 15:30 IMPRESSION: No acute infarct, mass lesion, intracranial hemorrhage, or evidence of hydrocephalus. Mild nonspecific T2/FLAIR hyperintensity in the cerebral white matter and danny presumably on the basis of chronic microangiopathy. Cervical Spine CT 07/03/23 20:12 IMPRESSION: No acute findings within the cervical spine. The cervical central canal is not well assessed on this CT due to artifact. If weakness persists, a cervical spine MRI would be more sensitive in assessment. Medications Medications Current Medications Acetaminophen (Acetaminophen 325 Mg Tablet) 650 mg PO Q6H PRN PRN Reason: Headache/Pain Mild Scale (1-3) Last Admin: 08/16/23 06:57 Dose: 650 mg Al Hydroxide/Mg Hydroxide (Magnesium Hydrox/Alum Hydrox 30 Ml Oral.Susp) 30 ml PO Q6H PRN PRN Reason: Heartburn/Nausea Atorvastatin Calcium (Atorvastatin Calcium 40 Mg Tablet) 40 mg PO DAILY [facility] Last Admin: 08/16/23 09:10 Dose: 40 mg Donepezil HCl (Donepezil Hcl 10 Mg Tablet) 10 mg PO BEDTIME [facility] Last Admin: 08/15/23 20:22 Dose: 10 mg Empagliflozin (Empagliflozin 25 Mg Tablet) 25 mg PO DAILY [facility] Last Admin: 08/16/23 09:09 Dose: 25 mg Famotidine (Famotidine 20 Mg Tablet) 20 mg PO DAILY [facility] Last Admin: 08/16/23 09:10 Dose: 20 mg Haloperidol (Haloperidol 1 Mg Tablet) 1 mg PO BEDTIME [facility] Last Admin: 08/15/23 20:22 Dose: 1 mg Ibuprofen (Ibuprofen 600 Mg Tablet) 600 mg PO Q6H PRN PRN Reason: pain not relieved by tylenol Last Admin: 08/07/23 21:10 Dose: 600 mg Insulin Glargine (Insulin Glargine,Hum.Rec.Anlog 100 Unit/Ml 10 Ml Vial) 6 unit SUBCUT DAILY [facility] Last Admin: 08/16/23 09:15 Dose: 6 unit Loperamide HCl (Loperamide Hcl 2 Mg Capsule) 2 mg PO Q6H PRN PRN Reason: Loose Stool Last Admin: 08/07/23 14:48 Dose: 2 mg Magnesium Hydroxide (Milk Of Magnesia 30 Ml Oral.Susp) 30 ml PO DAILY PRN PRN Reason: Constipation Magnesium Oxide ([facility] 400 Mg [facility]t) [facility] Last Admin: 08/16/23 09:10 Dose: 400 mg Memantine (Memantine Hcl 10 Mg Tablet) 10 mg PO BID [facility] Last Admin: 08/16/23 09:10 Dose: 10 mg Metformin HCl (Metformin Hcl 1,000 Mg Tablet) 1,000 mg PO BID [facility] Last Admin: 08/16/23 09:10 Dose: 1,000 mg Olanzapine (Olanzapine 2.5 Mg Tablet) 2.5 mg PO Q4H PRN PRN Reason: anxiety/agitation Last Admin: 07/13/23 00:01 Dose: 2.5 mg Sertraline HCl (Sertraline Hcl 100 Mg Tablet) 100 mg PO DAILY [facility] Last Admin: 08/16/23 09:10 Dose: 100 mg Trazodone HCl (Trazodone Hcl 50 Mg Tablet) 50 mg PO BEDTIME MRX1 PRN PRN Reason: Insomnia Last Admin: 08/15/23 22:16 Dose: 50 mg Allergies Allergies Allergy/AdvReac Type Severity Reaction Status Date / Time No Known Allergies Allergy Verified 03/23/23 18:13 Assessment & Plan Assessment & Plan (1) Alzheimer's dementia: Status: Acute Code(s): G30.9 - Alzheimer's disease, unspecified; F02.80 - Dementia in other diseases classified elsewhere, unspecified severity, without behavioral disturbance, psychotic disturbance, mood disturbance, and anxiety Assessment and Plan: 58 years old woman with relative young age onset at Alzheimer dementia but overall clinical picture is affected by significant depression, which continues to be the predominant feature of for clinical picture. Conventional dementia medicines such as donepezil or memantine can be tried but usually do not make significant difference. I would suggest memantine 10 mg twice a day and donepezil 10 mg daily. Recently a new dementia at drug for Alzheimer was approved but only for relatively mild dementia or mild cognitive impairment type of patients. She would not qualify for that drug. 08/11 continue current treatment plan Plan 1. Continue same treatment. 2. Waiting for placement. 3. Lower Haldol to 1 mg p.o. q.h.s. on July 28. On August 17 we decided to discontinue Haldol since there are no psychotic symptoms. Plan Patient with low magnesium met result discontinued core needing care with hospitalist team given p.o. magnesium monitor levels neuro consult Reason for continued inpatient stay Substantial Risk for: inability to function, rapid decompensation and med/psych decompensation Time Spent With Patient Time: Total time managing care of this patient today __20__ minutes.
[2023-08-16] MEDS: Magnesium Oxide 400 MG TABLET PO (17:30)
[2023-08-16 18:00] VITALS: BP 140/67; PULSE 74; RESP 18; TEMP 36.8; O2SAT 98
[2023-08-16] MEDS: HaloperidoL 1 MG TABLET PO (20:16)
[2023-08-16] MEDS: Donepezil HCl 10 MG TABLET PO (20:16)
[2023-08-16] MEDS: metFORMIN HCl 1,000 MG TABLET 1000 MG PO (20:17)
[2023-08-16] MEDS: traZODone HCL 50 MG TABLET PO (21:30)
[2023-08-17 07:00] VITALS: BMI 26.4
[2023-08-17 08:00] VITALS: BP 109/67; PULSE 80; RESP 18; TEMP 37; O2SAT 97
[2023-08-17 08:26] LABS: Creatinine Clr Calc Pharmacy 92.1; Estimated Glomerular Filt Rate > 60
[2023-08-17] MEDS: Insulin Glargine,Hum.rec.anlog 100 UNIT/ML 10 ML VIAL 6 UNIT SUBCUT (08:32)
[2023-08-17] MEDS: metFORMIN HCl 1,000 MG TABLET 1000 MG PO ×2 (08:32→20:26)
[2023-08-17] MEDS: Magnesium Oxide 400 MG TABLET PO ×2 (08:33→16:30)
[2023-08-17] MEDS: Atorvastatin Calcium 40 MG TABLET PO (08:33)
[2023-08-17] MEDS: Memantine HCl 10 MG TABLET PO ×2 (08:33→20:26)
[2023-08-17] MEDS: Famotidine 20 MG TABLET PO (08:33)
[2023-08-17] MEDS: Empagliflozin 25 MG TABLET PO (08:34)
[2023-08-17] MEDS: Sertraline HCL 100 MG TABLET PO (08:34)
--- NOTE | 2023-08-17 09:04 | HO.PSYCHPN ---
Subjective Subjective Date of Service: 08/17/23 Reason For Visit: hallucinations confusion Subjective Notes: Conditional Voluntary Interim History: The nursing staff reported no changes in her mental status, interacting minimally with peers and staff. On interview the patient denies new symptoms, waiting for placement. Mental Status Exam Mental Status Exam Patient Appearance: Appropriate Patient Orientation: Person and Situation Level of Consciousness: Awake and Appropriate Patient Behavior: Guarded and Passive Mood Description: Withdrawn Affect Description: Constricted Patient Cognition Impaired: Yes Ability to Follow Directions: Good Speech Pattern: Clear Hallucinations: None Delusions: Not Present Thought Process: Distracted and Linear Thought Content: positive for [place] and positive for Poverty of Content Judgement: Fair Diagnostics Vital Signs (24Hr): Vital Signs - 24 hr 08/16/23 18:00 08/17/23 08:00 Temperature 98.2 F 98.6 F Pulse Rate 74 80 Respiratory Rate 18 18 Blood Pressure 140/67 H 109/67 Pulse Oximetry 98 97 Oxygen Delivery Method Room Air Room Air BMI result Body Mass Index 26.6 Labs 07/03/23 18:16 08/17/23 07:54 Labs: Laboratory Results - last 48 hr 08/17/23 07:54 Creatinine 0.60 Estim Creat Clear Calc 92.1 Estimated GFR > 60 Imaging Radiology Impressions: ITS Impressions Brain MRI 04/03/23 15:30 IMPRESSION: No acute infarct, mass lesion, intracranial hemorrhage, or evidence of hydrocephalus. Mild nonspecific T2/FLAIR hyperintensity in the cerebral white matter and danny presumably on the basis of chronic microangiopathy. Cervical Spine CT 07/03/23 20:12 IMPRESSION: No acute findings within the cervical spine. The cervical central canal is not well assessed on this CT due to artifact. If weakness persists, a cervical spine MRI would be more sensitive in assessment. Medications Medications Current Medications Acetaminophen (Acetaminophen 325 Mg Tablet) 650 mg PO Q6H PRN PRN Reason: Headache/Pain Mild Scale (1-3) Last Admin: 08/16/23 21:30 Dose: 650 mg Al Hydroxide/Mg Hydroxide (Magnesium Hydrox/Alum Hydrox 30 Ml Oral.Susp) 30 ml PO Q6H PRN PRN Reason: Heartburn/Nausea Atorvastatin Calcium (Atorvastatin Calcium 40 Mg Tablet) 40 mg PO DAILY [facility] Last Admin: 08/17/23 08:33 Dose: 40 mg Donepezil HCl (Donepezil Hcl 10 Mg Tablet) 10 mg PO BEDTIME [facility] Last Admin: 10/11/23 20:16 Dose: 10 mg Empagliflozin (Empagliflozin 25 Mg Tablet) 25 mg PO DAILY [facility] Last Admin: 08/17/23 08:34 Dose: 25 mg Famotidine (Famotidine 20 Mg Tablet) 20 mg PO DAILY [facility] Last Admin: 08/17/23 08:33 Dose: 20 mg Haloperidol (Haloperidol 1 Mg Tablet) 1 mg PO BEDTIME [facility] Last Admin: 08/16/23 20:16 Dose: 1 mg Ibuprofen (Ibuprofen 600 Mg Tablet) 600 mg PO Q6H PRN PRN Reason: pain not relieved by tylenol Last Admin: 08/07/23 21:10 Dose: 600 mg Insulin Glargine (Insulin Glargine,Hum.Rec.Anlog 100 Unit/Ml 10 Ml Vial) 6 unit SUBCUT DAILY [facility] Last Admin: 08/17/23 08:32 Dose: 6 unit Loperamide HCl (Loperamide Hcl 2 Mg Capsule) 2 mg PO Q6H PRN PRN Reason: Loose Stool Last Admin: 08/07/23 14:48 Dose: 2 mg Magnesium Hydroxide (Milk Of Magnesia 30 Ml Oral.Susp) 30 ml PO DAILY PRN PRN Reason: Constipation Magnesium Oxide (Magnesium Oxide 400 Mg Tablet) 400 mg PO BIDPC [facility] Last Admin: 08/17/23 08:33 Dose: 400 mg Memantine (Memantine Hcl 10 Mg Tablet) 10 mg PO BID [facility] Last Admin: 08/17/23 08:33 Dose: 10 mg Metformin HCl (Metformin Hcl 1,000 Mg Tablet) 1,000 mg PO BID [facility] Last Admin: 08/17/23 08:32 Dose: 1,000 mg Olanzapine (Olanzapine 2.5 Mg Tablet) 2.5 mg PO Q4H PRN PRN Reason: anxiety/agitation Last Admin: 07/13/23 00:01 Dose: 2.5 mg Sertraline HCl (Sertraline Hcl 100 Mg Tablet) 100 mg PO DAILY [facility] Last Admin: 08/17/23 08:34 Dose: 100 mg Trazodone HCl (Trazodone Hcl 50 Mg Tablet) 50 mg PO BEDTIME MRX1 PRN PRN Reason: Insomnia Last Admin: 08/16/23 21:30 Dose: 50 mg Allergies Allergies Allergy/AdvReac Type Severity Reaction Status Date / Time No Known Allergies Allergy Verified 05/18/23 18:13 Assessment & Plan Assessment & Plan (1) Alzheimer's dementia: Status: Acute Code(s): G30.9 - Alzheimer's disease, unspecified; F02.80 - Dementia in other diseases classified elsewhere, unspecified severity, without behavioral disturbance, psychotic disturbance, mood disturbance, and anxiety Assessment and Plan: 58 years old woman with relative young age onset at Alzheimer dementia but overall clinical picture is affected by significant depression, which continues to be the predominant feature of for clinical picture. Conventional dementia medicines such as donepezil or memantine can be tried but usually do not make significant difference. I would suggest memantine 10 mg twice a day and donepezil 10 mg daily. Recently a new dementia at drug for Alzheimer was approved but only for relatively mild dementia or mild cognitive impairment type of patients. She would not qualify for that drug. 08/11 continue current treatment plan Plan 1. Continue same treatment. 2. Waiting for placement. 3. Lower Haldol to 1 mg p.o. q.h.s. on July 28. August 17 we discontinue Haldol at night Plan Patient with low magnesium met result discontinued core needing care with hospitalist team given p.o. magnesium monitor levels neuro consult Reason for continued inpatient stay Substantial Risk for: inability to function, rapid decompensation and med/psych decompensation Time Spent With Patient Time: Total time managing care of this patient today _20___ minutes.
[2023-08-17 19:30] VITALS: BP 144/70; PULSE 71; RESP 18; TEMP 36.7; O2SAT 97
[2023-08-17] MEDS: Donepezil HCl 10 MG TABLET PO (20:26)
[2023-08-17] MEDS: traZODone HCL 50 MG TABLET PO (20:26)
--- NOTE | 2023-08-18 09:04 | HO.PSYCHPN ---
Subjective Subjective Date of Service: 08/18/23 Reason For Visit: hallucinations confusion Subjective Notes: Conditional Voluntary Interim History: The nursing staff reported the patient had been flat, wandering the unit participating minimally in groups. Today we will have the hearing for the permanent guardianship of the patient. The manager social work tried to contact her daughter but she is not responding. On interview the patient reports that she is doing fine pleasantly confused. Today on team we discussed that lack of energy and the fronto temporal symptoms the patient has so we decided to add a low dose of Adderall. Mental Status Exam Mental Status Exam Patient Appearance: Appropriate Patient Orientation: Person Level of Consciousness: Awake Patient Behavior: Passive Mood Description: Calm Affect Description: Blunted Patient Cognition Impaired: Yes Ability to Follow Directions: Good Speech Pattern: Clear Hallucinations: None Delusions: Not Present Thought Process: Evasive and Slowed Thinking Thought Content: positive for [place] and positive for Thought Blocking Judgement: Poor Diagnostics Vital Signs (24Hr): Vital Signs - 24 hr 08/17/23 19:30 Temperature 98.1 F Pulse Rate 71 Respiratory Rate 18 Blood Pressure 144/70 H Pulse Oximetry 97 Oxygen Delivery Method Room Air BMI result Body Mass Index 26.4 Labs 07/03/23 18:16 08/17/23 07:54 Labs: Laboratory Results - last 48 hr 08/17/23 07:54 Creatinine 0.60 Estim Creat Clear Calc 92.1 Estimated GFR > 60 Imaging Radiology Impressions: ITS Impressions Brain MRI 04/03/23 15:30 IMPRESSION: No acute infarct, mass lesion, intracranial hemorrhage, or evidence of hydrocephalus. Mild nonspecific T2/FLAIR hyperintensity in the cerebral white matter and danny presumably on the basis of chronic microangiopathy. Cervical Spine CT 07/03/23 20:12 IMPRESSION: No acute findings within the cervical spine. The cervical central canal is not well assessed on this CT due to artifact. If weakness persists, a cervical spine MRI would be more sensitive in assessment. Medications Medications Current Medications Acetaminophen (Acetaminophen 325 Mg Tablet) 650 mg PO Q6H PRN PRN Reason: Headache/Pain Mild Scale (1-3) Last Admin: 08/16/23 21:30 Dose: 650 mg Al Hydroxide/Mg Hydroxide (Magnesium Hydrox/Alum Hydrox 30 Ml Oral.Susp) 30 ml PO Q6H PRN PRN Reason: Heartburn/Nausea Atorvastatin Calcium (Atorvastatin Calcium 40 Mg Tablet) 40 mg PO DAILY [facility] Last Admin: 08/17/23 08:33 Dose: 40 mg Donepezil HCl (Donepezil Hcl 10 Mg Tablet) 10 mg PO BEDTIME [facility] Last Admin: 08/17/23 20:26 Dose: 10 mg Empagliflozin (Empagliflozin 25 Mg Tablet) 25 mg PO DAILY [facility] Last Admin: 08/17/23 08:34 Dose: 25 mg Famotidine (Famotidine 20 Mg Tablet) 20 mg PO DAILY [facility] Last Admin: 08/17/23 08:33 Dose: 20 mg Ibuprofen (Ibuprofen 600 Mg Tablet) 600 mg PO Q6H PRN PRN Reason: pain not relieved by tylenol Last Admin: 08/07/23 21:10 Dose: 600 mg Insulin Glargine (Insulin Glargine,Hum.Rec.Anlog 100 Unit/Ml 10 Ml Vial) 6 unit SUBCUT DAILY [facility] Last Admin: 08/17/23 08:32 Dose: 6 unit Loperamide HCl (Loperamide Hcl 2 Mg Capsule) 2 mg PO Q6H PRN PRN Reason: Loose Stool Last Admin: 08/07/23 14:48 Dose: 2 mg Magnesium Hydroxide (Milk Of Magnesia 30 Ml Oral.Susp) 30 ml PO DAILY PRN PRN Reason: Constipation Magnesium Oxide (Magnesium Oxide 400 Mg Tablet) [facility] Last Admin: 08/17/23 16:30 Dose: 400 mg Memantine (Memantine Hcl 10 Mg Tablet) 10 mg PO BID [facility] Last Admin: 08/17/23 20:26 Dose: 10 mg Metformin HCl (Metformin Hcl 1,000 Mg Tablet) 1,000 mg PO BID [facility] Last Admin: 08/17/23 20:26 Dose: 1,000 mg Olanzapine (Olanzapine 2.5 Mg Tablet) 2.5 mg PO Q4H PRN PRN Reason: anxiety/agitation Last Admin: 07/13/23 00:01 Dose: 2.5 mg Sertraline HCl (Sertraline Hcl 100 Mg Tablet) 100 mg PO DAILY [facility] Last Admin: 08/17/23 08:34 Dose: 100 mg Trazodone HCl (Trazodone Hcl 50 Mg Tablet) 50 mg PO BEDTIME MRX1 PRN PRN Reason: Insomnia Last Admin: 08/17/23 20:26 Dose: 50 mg Allergies Allergies Allergy/AdvReac Type Severity Reaction Status Date / Time No Known Allergies Allergy Verified 03/23/23 18:13 Assessment & Plan Assessment & Plan (1) Alzheimer's dementia: Status: Acute Code(s): G30.9 - Alzheimer's disease, unspecified; F02.80 - Dementia in other diseases classified elsewhere, unspecified severity, without behavioral disturbance, psychotic disturbance, mood disturbance, and anxiety Assessment and Plan: 58 years old woman with relative young age onset at Alzheimer dementia but overall clinical picture is affected by significant depression, which continues to be the predominant feature of for clinical picture. Conventional dementia medicines such as donepezil or memantine can be tried but usually do not make significant difference. I would suggest memantine 10 mg twice a day and donepezil 10 mg daily. Recently a new dementia at drug for Alzheimer was approved but only for relatively mild dementia or mild cognitive impairment type of patients. She would not qualify for that drug. 08/11 continue current treatment plan Plan 1. Continue same treatment. 2. Waiting for placement. 3. Lower Haldol to 1 mg p.o. q.h.s. on July 28. August 17 we discontinue Haldol at night. 4. August 18 we decided to add a low dose of Adderall 5 mg p.o. b.i.d. to target her hypoactivity. Plan Patient with low magnesium met result discontinued core needing care with hospitalist team given p.o. magnesium monitor levels neuro consult Reason for continued inpatient stay Substantial Risk for: inability to function, rapid decompensation and med/psych decompensation Time Spent With Patient Time: Total time managing care of this patient today ___20_ minutes.
[2023-08-18] MEDS: Insulin Glargine,Hum.rec.anlog 100 UNIT/ML 10 ML VIAL 6 UNIT SUBCUT (10:02)
[2023-08-18] MEDS: Magnesium Oxide 400 MG TABLET PO ×2 (10:02→17:49)
[2023-08-18] MEDS: Atorvastatin Calcium 40 MG TABLET PO (10:02)
[2023-08-18] MEDS: Memantine HCl 10 MG TABLET PO ×2 (10:02→21:35)
[2023-08-18] MEDS: Famotidine 20 MG TABLET PO (10:02)
[2023-08-18] MEDS: Empagliflozin 25 MG TABLET PO (10:02)
[2023-08-18] MEDS: metFORMIN HCl 1,000 MG TABLET 1000 MG PO ×2 (10:02→21:36)
[2023-08-18] MEDS: Sertraline HCL 100 MG TABLET PO (10:02)
[2023-08-18 10:05] VITALS: BP 126/78; PULSE 76; RESP 18; TEMP 36.8; O2SAT 96
[2023-08-18] MEDS: Amphetamine Mixed Salts 10 MG TABLET 5 MG PO (17:49)
[2023-08-18 18:00] VITALS: BP 114/61; PULSE 62; RESP 16; TEMP 36.3; O2SAT 96
[2023-08-18] MEDS: Donepezil HCl 10 MG TABLET PO (21:35)
[2023-08-18] MEDS: traZODone HCL 50 MG TABLET PO (21:36)
[2023-08-19 08:10] VITALS: BP 124/69; PULSE 67; RESP 18; TEMP 36.8; O2SAT 96
[2023-08-19] MEDS: Insulin Glargine,Hum.rec.anlog 100 UNIT/ML 10 ML VIAL 6 UNIT SUBCUT (09:26)
[2023-08-19] MEDS: Amphetamine Mixed Salts 10 MG TABLET 5 MG PO ×2 (09:26→17:02)
[2023-08-19] MEDS: Atorvastatin Calcium 40 MG TABLET PO (09:27)
[2023-08-19] MEDS: Magnesium Oxide 400 MG TABLET PO ×2 (09:28→17:02)
[2023-08-19] MEDS: metFORMIN HCl 1,000 MG TABLET 1000 MG PO ×2 (09:28→20:37)
[2023-08-19] MEDS: Sertraline HCL 100 MG TABLET PO (09:28)
[2023-08-19] MEDS: Memantine HCl 10 MG TABLET PO ×2 (09:28→20:38)
[2023-08-19] MEDS: Empagliflozin 25 MG TABLET PO (09:28)
[2023-08-19] MEDS: Famotidine 20 MG TABLET PO (09:28)
--- NOTE | 2023-08-19 15:41 | PC.NURSE ---
pt with diarrhea x2, yellow with foul odor, received new orders for stool cultures per Dr Sanchez
--- NOTE | 2023-08-19 16:15 | P.PNPSI_ITS ---
Subjective Subjective Date of Service: 08/19/23 Reason For Visit: hallucinations confusion Subjective Notes: Conditional Voluntary Healthcare Proxy: Yes Guardianship: Yes Interim History: overall patient no significant changes. Incontinent of stool. Denies depression. No agitation. No overt psychosis. Medication Compliance: Yes Side effects from medications: No Attending Groups: No Review of Systems Acute medical concerns: No Review of Systems Review of Systems Yes Unobtainable due to mental status Mental Status Exam Mental Status Exam Narrative: Hospital clothing. Poor self-care. Needs lots of cuing. Cognition consistent with establish dementia. No SI. No HI. No agitation or psychosis. Insight and judgment poor Diagnostics Vital Signs (24Hr): Vital Signs - 24 hr 08/18/23 18:00 08/19/23 08:10 Temperature 97.3 F 98.2 F Pulse Rate 62 67 Respiratory Rate 16 18 Blood Pressure 114/61 124/69 Pulse Oximetry 96 96 Oxygen Delivery Method Room Air Room Air BMI result Body Mass Index 26.4 Labs 07/03/23 18:16 08/17/23 07:54 Imaging Radiology Impressions: ITS Impressions Brain MRI 04/03/23 15:30 IMPRESSION: No acute infarct, mass lesion, intracranial hemorrhage, or evidence of hydrocephalus. Mild nonspecific T2/FLAIR hyperintensity in the cerebral white matter and danny presumably on the basis of chronic microangiopathy. Cervical Spine CT 07/03/23 20:12 IMPRESSION: No acute findings within the cervical spine. The cervical central canal is not well assessed on this CT due to artifact. If weakness persists, a cervical spine MRI would be more sensitive in assessment. Medications Medications Current Medications Acetaminophen (Acetaminophen 325 Mg Tablet) 650 mg PO Q6H PRN PRN Reason: Headache/Pain Mild Scale (1-3) Last Admin: 08/16/23 21:30 Dose: 650 mg Al Hydroxide/Mg Hydroxide (Magnesium Hydrox/Alum Hydrox 30 Ml Oral.Susp) 30 ml PO Q6H PRN PRN Reason: Heartburn/Nausea Amphetamine/Dextroamphetamine (Amphetamine Mixed Salts 10 Mg Tablet) 5 mg PO BID@0800,1700 [facility] Last Admin: 08/19/23 09:26 Dose: 5 mg Atorvastatin Calcium (Atorvastatin Calcium 40 Mg Tablet) 40 mg PO DAILY [facility] Last Admin: 08/19/23 09:27 Dose: 40 mg Donepezil HCl (Donepezil Hcl 10 Mg Tablet) 10 mg PO BEDTIME [facility] Last Admin: 10/13/23 21:35 Dose: 10 mg Empagliflozin (Empagliflozin 25 Mg Tablet) 25 mg PO DAILY [facility] Last Admin: 08/19/23 09:28 Dose: 25 mg Famotidine (Famotidine 20 Mg Tablet) 20 mg PO DAILY [facility] Last Admin: 08/19/23 09:28 Dose: 20 mg Ibuprofen (Ibuprofen 600 Mg Tablet) 600 mg PO Q6H PRN PRN Reason: pain not relieved by tylenol Last Admin: 08/07/23 21:10 Dose: 600 mg Insulin Glargine (Insulin Glargine,Hum.Rec.Anlog 100 Unit/Ml 10 Ml Vial) 6 unit SUBCUT DAILY [facility] Last Admin: 08/19/23 09:26 Dose: 6 unit Loperamide HCl (Loperamide Hcl 2 Mg Capsule) 2 mg PO Q6H PRN PRN Reason: Loose Stool Last Admin: 08/07/23 14:48 Dose: 2 mg Magnesium Hydroxide (Milk Of Magnesia 30 Ml Oral.Susp) 30 ml PO DAILY PRN PRN Reason: Constipation Magnesium Oxide (Magnesium [facility] 400 Mg Tablet) [facility] Last Admin: 08/19/23 09:28 Dose: 400 mg Memantine (Memantine Hcl 10 Mg Tablet) 10 mg PO BID [facility] Last Admin: 08/19/23 09:28 Dose: 10 mg Metformin HCl (Metformin Hcl 1,000 Mg Tablet) 1,000 mg PO BID [facility] Last Admin: 08/19/23 09:28 Dose: 1,000 mg Olanzapine (Olanzapine 2.5 Mg Tablet) 2.5 mg PO Q4H PRN PRN Reason: anxiety/agitation Last Admin: 07/13/23 00:01 Dose: 2.5 mg Sertraline HCl (Sertraline Hcl 100 Mg Tablet) 100 mg PO DAILY [facility] Last Admin: 08/19/23 09:28 Dose: 100 mg Trazodone HCl (Trazodone Hcl 50 Mg Tablet) 50 mg PO BEDTIME MRX1 PRN PRN Reason: Insomnia Last Admin: 08/18/23 21:36 Dose: 50 mg Allergies Allergies Allergy/AdvReac Type Severity Reaction Status Date / Time No Known Allergies Allergy Verified 03/23/23 18:13 Assessment & Plan Assessment & Plan (1) Alzheimer's dementia: Status: Acute Code(s): G30.9 - Alzheimer's disease, unspecified; F02.80 - Dementia in other diseases classified elsewhere, unspecified severity, without behavioral disturbance, psychotic disturbance, mood disturbance, and anxiety Assessment and Plan: 58 years old woman with relative young age onset at Alzheimer dementia but overall clinical picture is affected by significant depression, which continues to be the predominant feature of for clinical picture. Conventional dementia medicines such as donepezil or memantine can be tried but usually do not make significant difference. I would suggest memantine 10 mg twice a day and donepezil 10 mg daily. Recently a new dementia at drug for Alzheimer was approved but only for relatively mild dementia or mild cognitive impairment type of patients. She would not qualify for that drug. 08/11 continue current treatment plan Plan 1. Continue same treatment. 2. Waiting for placement. 3. Lower Haldol to 1 mg p.o. q.h.s. on July 28. August 17 we discontinue Haldol at night. 4. August 18 we decided to add a low dose of Adderall 5 mg p.o. b.i.d. to target her hypoactivity. 08/19/2023: No changes to current plan Plan Patient with low magnesium met result discontinued core needing care with hospitalist team given p.o. magnesium monitor levels neuro consult Reason for continued inpatient stay Substantial Risk for: inability to function Time Spent With Patient Time: Total time managing care of this patient today ____ minutes.
[2023-08-19 18:00] VITALS: BP 130/79; PULSE 74; RESP 16; TEMP 36.6; O2SAT 97
[2023-08-19] MEDS: traZODone HCL 50 MG TABLET PO (20:38)
[2023-08-19] MEDS: Donepezil HCl 10 MG TABLET PO (20:38)
[2023-08-20 08:00] VITALS: BP 139/89; PULSE 86; RESP 16; TEMP 36.7; O2SAT 96
[2023-08-20] MEDS: Atorvastatin Calcium 40 MG TABLET PO (08:45)
[2023-08-20] MEDS: Memantine HCl 10 MG TABLET PO ×2 (08:45→19:47)
[2023-08-20] MEDS: Amphetamine Mixed Salts 10 MG TABLET 5 MG PO ×2 (08:45→16:23)
[2023-08-20] MEDS: Magnesium Oxide 400 MG TABLET PO ×2 (08:45→16:23)
[2023-08-20] MEDS: Sertraline HCL 100 MG TABLET PO (08:46)
[2023-08-20] MEDS: metFORMIN HCl 1,000 MG TABLET 1000 MG PO ×2 (08:46→19:47)
[2023-08-20] MEDS: Famotidine 20 MG TABLET PO (08:46)
[2023-08-20] MEDS: Empagliflozin 25 MG TABLET PO (08:46)
[2023-08-20] MEDS: Insulin Glargine,Hum.rec.anlog 100 UNIT/ML 10 ML VIAL 6 UNIT SUBCUT (08:47)
[2023-08-20 12:08] LABS: CDiff Gene PCR NEGATIVE (Negative)
--- NOTE | 2023-08-20 14:22 | HO.PSYCHPN ---
Subjective Subjective Date of Service: 08/20/23 Reason For Visit: hallucinations confusion Interim History: overall patient no significant changes. Enjoyed visit from sister. Incontinence. Denies depression. No agitation. No overt psychosis. Medication Compliance: Yes Side effects from medications: No Attending Groups: Intermittent Review of Systems Acute medical concerns: No Review of Systems Review of Systems Unremarkable Mental Status Exam Mental Status Exam Narrative: Hospital clothing. Poor self-care. Needs lots of cuing. Cognition consistent with establish dementia. No SI. No HI. No agitation or psychosis. Insight and judgment poor Diagnostics Vital Signs (24Hr): Vital Signs - 24 hr 08/19/23 18:00 08/20/23 08:00 Temperature 97.9 F 98.1 F Pulse Rate 74 86 Respiratory Rate 16 16 Blood Pressure 130/79 139/89 Pulse Oximetry 97 96 Oxygen Delivery Method Room Air Room Air BMI result Body Mass Index 26.4 Labs 07/03/23 18:16 08/17/23 07:54 Labs: Laboratory Results - last 48 hr 08/20/23 08:30 C. difficile Tox B Gene NEGATIVE Imaging Radiology Impressions: ITS Impressions Brain MRI 04/03/23 15:30 IMPRESSION: No acute infarct, mass lesion, intracranial hemorrhage, or evidence of hydrocephalus. Mild nonspecific T2/FLAIR hyperintensity in the cerebral white matter and danny presumably on the basis of chronic microangiopathy. Cervical Spine CT 07/03/23 20:12 IMPRESSION: No acute findings within the cervical spine. The cervical central canal is not well assessed on this CT due to artifact. If weakness persists, a cervical spine MRI would be more sensitive in assessment. Medications Medications Current Medications Acetaminophen (Acetaminophen 325 Mg Tablet) 650 mg PO Q6H PRN PRN Reason: Headache/Pain Mild Scale (1-3) Last Admin: 08/16/23 21:30 Dose: 650 mg Al Hydroxide/Mg Hydroxide (Magnesium Hydrox/Alum Hydrox 30 Ml Oral.Susp) 30 ml PO Q6H PRN PRN Reason: Heartburn/Nausea Amphetamine/Dextroamphetamine (Amphetamine Mixed Salts 10 Mg Tablet) 5 mg PO BID@0800,1700 [facility] Last Admin: 08/20/23 08:45 Dose: 5 mg Atorvastatin Calcium (Atorvastatin Calcium 40 Mg Tablet) 40 mg PO DAILY [facility] Last Admin: 08/20/23 08:45 Dose: 40 mg Donepezil HCl (Donepezil Hcl 10 Mg Tablet) 10 mg PO BEDTIME [facility] Last Admin: 08/19/23 20:38 Dose: 10 mg Empagliflozin (Empagliflozin 25 Mg Tablet) 25 mg PO DAILY [facility] Last Admin: 08/20/23 08:46 Dose: 25 mg Famotidine (Famotidine 20 Mg Tablet) 20 mg PO DAILY [facility] Last Admin: 08/20/23 08:46 Dose: 20 mg Ibuprofen (Ibuprofen 600 Mg Tablet) 600 mg PO Q6H PRN PRN Reason: pain not relieved by tylenol Last Admin: 08/07/23 21:10 Dose: 600 mg Insulin Glargine (Insulin Glargine,Hum.Rec.Anlog 100 Unit/Ml 10 Ml Vial) 6 unit SUBCUT DAILY [facility] Last Admin: 08/20/23 08:47 Dose: 6 unit Loperamide HCl (Loperamide Hcl 2 Mg Capsule) 2 mg PO Q6H PRN PRN Reason: Loose Stool Last Admin: 08/07/23 14:48 Dose: 2 mg Magnesium Hydroxide (Milk Of Magnesia 30 Ml Oral.Susp) 30 ml PO DAILY PRN PRN Reason: Constipation Magnesium Oxide (Magnesium [facility]ide 400 Mg Tablet) [facility] Last Admin: 08/20/23 08:45 Dose: 400 mg Memantine (Memantine Hcl 10 Mg Tablet) 10 mg PO BID [facility] Last Admin: 08/20/23 08:45 Dose: 10 mg Metformin HCl (Metformin Hcl 1,000 Mg Tablet) 1,000 mg PO BID [facility] Last Admin: 08/20/23 08:46 Dose: 1,000 mg Olanzapine (Olanzapine 2.5 Mg Tablet) 2.5 mg PO Q4H PRN PRN Reason: anxiety/agitation Last Admin: 07/13/23 00:01 Dose: 2.5 mg Sertraline HCl (Sertraline Hcl 100 Mg Tablet) 100 mg PO DAILY [facility] Last Admin: 08/20/23 08:46 Dose: 100 mg Trazodone HCl (Trazodone Hcl 50 Mg Tablet) 50 mg PO BEDTIME MRX1 PRN PRN Reason: Insomnia Last Admin: 08/19/23 20:38 Dose: 50 mg Allergies Allergies Allergy/AdvReac Type Severity Reaction Status Date / Time No Known Allergies Allergy Verified 03/23/23 18:13 Assessment & Plan Assessment & Plan (1) Alzheimer's dementia: Status: Acute Code(s): G30.9 - Alzheimer's disease, unspecified; F02.80 - Dementia in other diseases classified elsewhere, unspecified severity, without behavioral disturbance, psychotic disturbance, mood disturbance, and anxiety Assessment and Plan: 58 years old woman with relative young age onset at Alzheimer dementia but overall clinical picture is affected by significant depression, which continues to be the predominant feature of for clinical picture. Conventional dementia medicines such as donepezil or memantine can be tried but usually do not make significant difference. I would suggest memantine 10 mg twice a day and donepezil 10 mg daily. Recently a new dementia at drug for Alzheimer was approved but only for relatively mild dementia or mild cognitive impairment type of patients. She would not qualify for that drug. 08/11 continue current treatment plan Plan 1. Continue same treatment. 2. Waiting for placement. 3. Lower Haldol to 1 mg p.o. q.h.s. on July 28. August 17 we discontinue Haldol at night. 4. August 18 we decided to add a low dose of Adderall 5 mg p.o. b.i.d. to target her hypoactivity. 08/20/2023: No changes to current plan. C Diff negative Plan Patient with low magnesium met result discontinued core needing care with hospitalist team given p.o. magnesium monitor levels neuro consult Reason for continued inpatient stay Substantial Risk for: inability to function Time Spent With Patient Time: Total time managing care of this patient today ____ minutes.
[2023-08-20 18:00] VITALS: BP 148/67; PULSE 81; RESP 17; TEMP 36.4; O2SAT 97
[2023-08-20] MEDS: Donepezil HCl 10 MG TABLET PO (19:47)
[2023-08-21] MEDS: Sertraline HCL 100 MG TABLET PO (08:30)
[2023-08-21] MEDS: Insulin Glargine,Hum.rec.anlog 100 UNIT/ML 10 ML VIAL 6 UNIT SUBCUT (08:30)
[2023-08-21] MEDS: metFORMIN HCl 1,000 MG TABLET 1000 MG PO ×2 (08:30→20:07)
[2023-08-21] MEDS: Empagliflozin 25 MG TABLET PO (08:30)
[2023-08-21] MEDS: Memantine HCl 10 MG TABLET PO ×2 (08:30→20:07)
[2023-08-21] MEDS: Famotidine 20 MG TABLET PO (08:30)
[2023-08-21] MEDS: Amphetamine Mixed Salts 10 MG TABLET 5 MG PO ×2 (08:30→17:08)
[2023-08-21] MEDS: Atorvastatin Calcium 40 MG TABLET PO (08:30)
[2023-08-21 09:51] VITALS: BP 117/63; PULSE 84; RESP 16; TEMP 36.5; O2SAT 97
--- NOTE | 2023-08-21 14:11 | P.PNPSI_ITS ---
Subjective Subjective Date of Service: 08/21/23 Reason For Visit: hallucinations confusion Subjective Notes: Conditional Voluntary Interim History: The nursing staff reported the patient does not have any changes in his mental status she had been negative to constant deep easily. She slept well last night. According to the nutrition, she lost between 3-4 kg in the last months. On interview the patient denies new symptoms, waiting for placement. Mental Status Exam Mental Status Exam Patient Appearance: Appropriate Patient Orientation: Person Level of Consciousness: Awake Patient Behavior: Guarded and Passive Mood Description: Withdrawn Affect Description: Constricted Patient Cognition Impaired: Yes Ability to Follow Directions: Good Speech Pattern: Clear Hallucinations: None Delusions: Not Present Thought Process: Distracted and Slowed Thinking Thought Content: positive for [place] and positive for [place] of Content Judgement: Poor Diagnostics Vital Signs (24Hr): Vital Signs - 24 hr 08/20/23 18:00 08/21/23 09:51 Temperature 97.6 F 97.7 F Pulse Rate 81 84 Respiratory Rate 17 16 Blood Pressure 148/67 H 117/63 Pulse Oximetry 97 97 Oxygen Delivery Method Room Air Room Air BMI result Body Mass Index 26.4 Labs 07/03/23 18:16 08/17/23 07:54 Labs: Laboratory Results - last 48 hr 08/20/23 08:30 C. difficile Tox B Gene NEGATIVE Imaging Radiology Impressions: ITS Impressions Brain MRI 04/03/23 15:30 IMPRESSION: No acute infarct, mass lesion, intracranial hemorrhage, or evidence of hydrocephalus. Mild nonspecific T2/FLAIR hyperintensity in the cerebral white matter and danny presumably on the basis of chronic microangiopathy. Cervical Spine CT 07/03/23 20:12 IMPRESSION: No acute findings within the cervical spine. The cervical central canal is not well assessed on this CT due to artifact. If weakness persists, a cervical spine MRI would be more sensitive in assessment. Medications Medications Current Medications Acetaminophen (Acetaminophen 325 Mg Tablet) 650 mg PO Q6H PRN PRN Reason: Headache/Pain Mild Scale (1-3) Last Admin: 08/16/23 21:30 Dose: 650 mg Al Hydroxide/Mg Hydroxide (Magnesium Hydrox/Alum Hydrox 30 Ml Oral.Susp) 30 ml PO Q6H PRN PRN Reason: Heartburn/Nausea Amphetamine/Dextroamphetamine (Amphetamine Mixed Salts 10 Mg Tablet) 5 mg PO BID@0800,1700 [facility] Last Admin: 08/21/23 08:30 Dose: 5 mg Atorvastatin Calcium (Atorvastatin Calcium 40 Mg Tablet) 40 mg PO DAILY [facility] Last Admin: 08/21/23 08:30 Dose: 40 mg Donepezil HCl (Donepezil Hcl 10 Mg Tablet) 10 mg PO BEDTIME [facility] Last Admin: 08/20/23 19:47 Dose: 10 mg Empagliflozin (Empagliflozin 25 Mg Tablet) 25 mg PO DAILY [facility] Last Admin: 08/21/23 08:30 Dose: 25 mg Famotidine (Famotidine 20 Mg Tablet) 20 mg PO DAILY [facility] Last Admin: 08/21/23 08:30 Dose: 20 mg Ibuprofen (Ibuprofen 600 Mg Tablet) 600 mg PO Q6H PRN PRN Reason: pain not relieved by tylenol Last Admin: 08/07/23 21:10 Dose: 600 mg Insulin Glargine (Insulin Glargine,Hum.Rec.Anlog 100 Unit/Ml 10 Ml Vial) 6 unit SUBCUT DAILY [facility] Last Admin: 08/21/23 08:30 Dose: 6 unit Loperamide HCl (Loperamide Hcl 2 Mg Capsule) 2 mg PO Q6H PRN PRN Reason: Loose Stool Last Admin: 08/07/23 14:48 Dose: 2 mg Magnesium Hydroxide (Milk Of Magnesia 30 Ml Oral.Susp) 30 ml PO DAILY PRN PRN Reason: Constipation Magnesium Oxide ([facility]esium [facility] 400 Mg Tablet) [facility] Last Admin: 08/20/23 16:23 Dose: 400 mg Memantine (Memantine Hcl 10 Mg Tablet) 10 mg PO BID [facility] Last Admin: 08/21/23 08:30 Dose: 10 mg Metformin HCl (Metformin Hcl 1,000 Mg Tablet) 1,000 mg PO BID [facility] Last Admin: 08/21/23 08:30 Dose: 1,000 mg Olanzapine (Olanzapine 2.5 Mg Tablet) 2.5 mg PO Q4H PRN PRN Reason: anxiety/agitation Last Admin: 07/13/23 00:01 Dose: 2.5 mg Sertraline HCl (Sertraline Hcl 100 Mg Tablet) 100 mg PO DAILY [facility] Last Admin: 08/21/23 08:30 Dose: 100 mg Trazodone HCl (Trazodone Hcl 50 Mg Tablet) 50 mg PO BEDTIME MRX1 PRN PRN Reason: Insomnia Last Admin: 08/19/23 20:38 Dose: 50 mg Allergies Allergies Allergy/AdvReac Type Severity Reaction Status Date / Time No Known Allergies Allergy Verified 03/23/23 18:13 Assessment & Plan Assessment & Plan (1) Alzheimer's dementia: Status: Acute Code(s): G30.9 - Alzheimer's disease, unspecified; F02.80 - Dementia in other diseases classified elsewhere, unspecified severity, without behavioral disturbance, psychotic disturbance, mood disturbance, and anxiety Assessment and Plan: 58 years old woman with relative young age onset at Alzheimer dementia but overall clinical picture is affected by significant depression, which continues to be the predominant feature of for clinical picture. Conventional dementia medicines such as donepezil or memantine can be tried but usually do not make significant difference. I would suggest memantine 10 mg twice a day and donepezil 10 mg daily. Recently a new dementia at drug for Alzheimer was approved but only for relatively mild dementia or mild cognitive impairment type of patients. She would not qualify for that drug. 08/11 continue current treatment plan Plan 1. Continue same treatment. 2. Waiting for placement. 3. Lower Haldol to 1 mg p.o. q.h.s. on July 28. August 17 we discontinue Haldol at night. 4. August 18 we decided to add a low dose of Adderall 5 mg p.o. b.i.d. to target her hypoactivity. Plan Patient with low magnesium met result discontinued core needing care with hospitalist team given p.o. magnesium monitor levels neuro consult Reason for continued inpatient stay Substantial Risk for: inability to function, rapid decompensation and med/psych decompensation Time Spent With Patient Time: Total time managing care of this patient today __20__ minutes.
--- NOTE | 2023-08-21 16:48 | PC.NURSE ---
PT BEGAN LISTING TO THE RIGHT WHILE WALKING. THIS NURSE REPORTED THIS INFORMATION TO DR. BOOTH VIA [facility]. NO OTHER NEUROLOGICAL SYMPTOMS OBSERVED OR REPORTED. PT DENIED NOTICING THIS CHANGE.
[2023-08-21] MEDS: Magnesium Oxide 400 MG TABLET PO ×2 (17:00→17:09)
[2023-08-21 18:00] VITALS: BP 136/66; PULSE 76; RESP 18; TEMP 36.2; O2SAT 94
[2023-08-21] MEDS: Donepezil HCl 10 MG TABLET PO (20:07)
[2023-08-21] MEDS: OLANZapine 2.5 MG TABLET PO (21:30)
[2023-08-21] MEDS: traZODone HCL 50 MG TABLET PO (21:30)
[2023-08-22 08:00] VITALS: BP 132/79; PULSE 82; RESP 16; TEMP 36.4; O2SAT 97
[2023-08-22] MEDS: Memantine HCl 10 MG TABLET PO ×2 (09:39→21:09)
[2023-08-22] MEDS: Amphetamine Mixed Salts 10 MG TABLET 5 MG PO ×2 (09:39→16:44)
[2023-08-22] MEDS: Famotidine 20 MG TABLET PO (09:39)
[2023-08-22] MEDS: Magnesium Oxide 400 MG TABLET PO ×2 (09:40→16:44)
[2023-08-22] MEDS: metFORMIN HCl 1,000 MG TABLET 1000 MG PO ×2 (09:40→21:09)
[2023-08-22] MEDS: Sertraline HCL 100 MG TABLET PO (09:40)
[2023-08-22] MEDS: Empagliflozin 25 MG TABLET PO (09:40)
[2023-08-22] MEDS: Atorvastatin Calcium 40 MG TABLET PO (09:40)
[2023-08-22] MEDS: Insulin Glargine,Hum.rec.anlog 100 UNIT/ML 10 ML VIAL 6 UNIT SUBCUT (09:41)
--- NOTE | 2023-08-22 13:45 | HO.PSYCHPN ---
Subjective Subjective Date of Service: 08/22/23 Reason For Visit: hallucinations confusion Subjective Notes: Conditional Voluntary Interim History: The nursing staff reported the patient had been wandering in the unit pacing, the staff has noticed that his affect looks a little brighter. The social services technician reported that the main barrier for discharge is financial constraints. On interview the patient denies new symptoms, waiting for placement. Mental Status Exam Mental Status Exam Patient Appearance: Appropriate Patient Orientation: Person and Situation Level of Consciousness: Awake Patient Behavior: Cooperative and Passive Mood Description: Calm Affect Description: Constricted Patient Cognition Impaired: Yes Ability to Follow Directions: Good Speech Pattern: Clear Hallucinations: None Delusions: Not Present Thought Process: Distracted and Slowed Thinking Thought Content: positive for [place] and positive for Poverty of Content Judgement: Fair Diagnostics Vital Signs (24Hr): Vital Signs - 24 hr 08/21/23 18:00 08/22/23 08:00 Temperature 97.1 F 97.5 F Pulse Rate 76 82 Respiratory Rate 18 16 Blood Pressure 136/66 132/79 Pulse Oximetry 94 97 Oxygen Delivery Method Room Air Room Air BMI result Body Mass Index 26.4 Labs 07/03/23 18:16 08/17/23 07:54 Imaging Radiology Impressions: ITS Impressions Brain MRI 04/03/23 15:30 IMPRESSION: No acute infarct, mass lesion, intracranial hemorrhage, or evidence of hydrocephalus. Mild nonspecific T2/FLAIR hyperintensity in the cerebral white matter and danny presumably on the basis of chronic microangiopathy. Cervical Spine CT 07/03/23 20:12 IMPRESSION: No acute findings within the cervical spine. The cervical central canal is not well assessed on this CT due to artifact. If weakness persists, a cervical spine MRI would be more sensitive in assessment. Medications Medications Current Medications Acetaminophen (Acetaminophen 325 Mg Tablet) 650 mg PO Q6H PRN PRN Reason: Headache/Pain Mild Scale (1-3) Last Admin: 08/16/23 21:30 Dose: 650 mg Al Hydroxide/Mg Hydroxide (Magnesium Hydrox/Alum Hydrox 30 Ml Oral.Susp) 30 ml PO Q6H PRN PRN Reason: Heartburn/Nausea Amphetamine/Dextroamphetamine (Amphetamine Mixed Salts 10 Mg Tablet) 5 mg PO BID@0800,1700 [facility] Last Admin: 08/22/23 09:39 Dose: 5 mg Atorvastatin Calcium (Atorvastatin Calcium 40 Mg Tablet) 40 mg PO DAILY [facility] Last Admin: 08/22/23 09:40 Dose: 40 mg Donepezil HCl (Donepezil Hcl 10 Mg Tablet) 10 mg PO BEDTIME [facility] Last Admin: 08/21/23 20:07 Dose: 10 mg Empagliflozin (Empagliflozin 25 Mg Tablet) 25 mg PO DAILY [facility] Last Admin: 08/22/23 09:40 Dose: 25 mg Famotidine (Famotidine 20 Mg Tablet) 20 mg PO DAILY [facility] Last Admin: 08/22/23 09:39 Dose: 20 mg Ibuprofen (Ibuprofen 600 Mg Tablet) 600 mg PO Q6H PRN PRN Reason: pain not relieved by tylenol Last Admin: 08/07/23 21:10 Dose: 600 mg Insulin Glargine (Insulin Glargine,Hum.Rec.Anlog 100 Unit/Ml 10 Ml Vial) 6 unit SUBCUT DAILY [facility] Last Admin: 08/22/23 09:41 Dose: 6 unit Loperamide HCl (Loperamide Hcl 2 Mg Capsule) 2 mg PO Q6H PRN PRN Reason: Loose Stool Last Admin: 08/07/23 14:48 Dose: 2 mg Magnesium Hydroxide (Milk Of Magnesia 30 Ml Oral.Susp) 30 ml PO DAILY PRN PRN Reason: Constipation Magnesium Oxide ([facility] 400 Mg Tablet) [facility] Last Admin: 08/22/23 09:40 Dose: 400 mg Memantine (Memantine Hcl 10 Mg Tablet) 10 mg PO BID [facility] Last Admin: 08/22/23 09:39 Dose: 10 mg Metformin HCl (Metformin Hcl 1,000 Mg Tablet) 1,000 mg PO BID [facility] Last Admin: 08/22/23 09:40 Dose: 1,000 mg Olanzapine (Olanzapine 2.5 Mg Tablet) 2.5 mg PO Q4H PRN PRN Reason: anxiety/agitation Last Admin: 08/21/23 21:30 Dose: 2.5 mg Sertraline HCl (Sertraline Hcl 100 Mg Tablet) 100 mg PO DAILY [facility] Last Admin: 08/22/23 09:40 Dose: 100 mg Trazodone HCl (Trazodone Hcl 50 Mg Tablet) 50 mg PO BEDTIME MRX1 PRN PRN Reason: Insomnia Last Admin: 08/21/23 21:30 Dose: 50 mg Allergies Allergies Allergy/AdvReac Type Severity Reaction Status Date / Time No Known Allergies Allergy Verified 03/23/23 18:13 Assessment & Plan Assessment & Plan (1) Alzheimer's dementia: Status: Acute Code(s): G30.9 - Alzheimer's disease, unspecified; F02.80 - Dementia in other diseases classified elsewhere, unspecified severity, without behavioral disturbance, psychotic disturbance, mood disturbance, and anxiety Assessment and Plan: 58 years old woman with relative young age onset at Alzheimer dementia but overall clinical picture is affected by significant depression, which continues to be the predominant feature of for clinical picture. Conventional dementia medicines such as donepezil or memantine can be tried but usually do not make significant difference. I would suggest memantine 10 mg twice a day and donepezil 10 mg daily. Recently a new dementia at drug for Alzheimer was approved but only for relatively mild dementia or mild cognitive impairment type of patients. She would not qualify for that drug. 08/11 continue current treatment plan Plan 1. Continue same treatment. 2. Waiting for placement. 3. Lower Haldol to 1 mg p.o. q.h.s. on July 28. August 17 we discontinue Haldol at night. 4. August 18 we decided to add a low dose of Adderall 5 mg p.o. b.i.d. to target her hypoactivity. Plan Patient with low magnesium met result discontinued core needing care with hospitalist team given p.o. magnesium monitor levels neuro consult Reason for continued inpatient stay Substantial Risk for: inability to function, rapid decompensation and med/psych decompensation Time Spent With Patient Time: Total time managing care of this patient today __20__ minutes.
[2023-08-22 18:00] VITALS: BP 126/78; PULSE 76; RESP 16; TEMP 36.5; O2SAT 97
[2023-08-22] MEDS: OLANZapine 2.5 MG TABLET PO (21:09)
[2023-08-22] MEDS: Acetaminophen 325 MG TABLET 650 MG PO (21:09)
[2023-08-22] MEDS: traZODone HCL 50 MG TABLET PO (21:09)
[2023-08-22] MEDS: Donepezil HCl 10 MG TABLET PO (21:09)
--- NOTE | 2023-08-23 07:55 | P.PNPSI_ITS ---
Subjective Subjective Date of Service: 08/23/23 Reason For Visit: hallucinations confusion Subjective Notes: Conditional Voluntary Interim History: The nursing staff reported the patient slept well last night, she had been fully compliant with treatment. The occupational therapist reported that she goes to groups but her port is patient is minimally but it seems that she has a little more sociable. On interview the patient remains confused, cooperative and pleasant, easily redirectable. Vital signs are stable. No evidence of tachycardia or hypertension with the addition of Adderall. Mental Status Exam Mental Status Exam Patient Appearance: Appropriate Patient Orientation: Person Level of Consciousness: Awake Patient Behavior: Guarded and Passive Mood Description: Withdrawn Affect Description: Blunted Patient Cognition Impaired: Yes Ability to Follow Directions: Good Speech Pattern: Clear Hallucinations: None Delusions: Not Present Thought Process: Distracted and Slowed Thinking Thought Content: positive for [place] and positive for Poverty of Content Judgement: Poor Diagnostics Vital Signs (24Hr): Vital Signs - 24 hr 08/22/23 08:00 08/22/23 18:00 Temperature 97.5 F 97.7 F Pulse Rate 82 76 Respiratory Rate 16 16 Blood Pressure 132/79 126/78 Pulse Oximetry 97 97 Oxygen Delivery Method Room Air Room Air BMI result Body Mass Index 26.4 Labs 07/03/23 18:16 08/17/23 07:54 Imaging Radiology Impressions: ITS Impressions Brain MRI 04/03/23 15:30 IMPRESSION: No acute infarct, mass lesion, intracranial hemorrhage, or evidence of hydrocephalus. Mild nonspecific T2/FLAIR hyperintensity in the cerebral white matter and danny presumably on the basis of chronic microangiopathy. Cervical Spine CT 07/03/23 20:12 IMPRESSION: No acute findings within the cervical spine. The cervical central canal is not well assessed on this CT due to artifact. If weakness persists, a cervical spine MRI would be more sensitive in assessment. Medications Medications Current Medications Acetaminophen (Acetaminophen 325 Mg Tablet) 650 mg PO Q6H PRN PRN Reason: Headache/Pain Mild Scale (1-3) Last Admin: 08/22/23 21:09 Dose: 650 mg Al Hydroxide/Mg Hydroxide (Magnesium Hydrox/Alum Hydrox 30 Ml Oral.Susp) 30 ml PO Q6H PRN PRN Reason: Heartburn/Nausea Amphetamine/Dextroamphetamine (Amphetamine Mixed Salts 10 Mg Tablet) 5 mg PO BID@0800,1700 [facility] Last Admin: 08/22/23 16:44 Dose: 5 mg Atorvastatin Calcium (Atorvastatin Calcium 40 Mg Tablet) 40 mg PO DAILY [facility] Last Admin: 08/22/23 09:40 Dose: 40 mg Donepezil HCl (Donepezil Hcl 10 Mg Tablet) 10 mg PO BEDTIME [facility] Last Admin: 08/22/23 21:09 Dose: 10 mg Empagliflozin (Empagliflozin 25 Mg Tablet) 25 mg PO DAILY [facility] Last Admin: 08/22/23 09:40 Dose: 25 mg Famotidine (Famotidine 20 Mg Tablet) 20 mg PO DAILY [facility] Last Admin: 08/22/23 09:39 Dose: 20 mg Ibuprofen (Ibuprofen 600 Mg Tablet) 600 mg PO Q6H PRN PRN Reason: pain not relieved by tylenol Last Admin: 08/07/23 21:10 Dose: 600 mg Insulin Glargine (Insulin Glargine,Hum.Rec.Anlog 100 Unit/Ml 10 Ml Vial) 6 unit SUBCUT DAILY [facility] Last Admin: 08/22/23 09:41 Dose: 6 unit Loperamide HCl (Loperamide Hcl 2 Mg Capsule) 2 mg PO Q6H PRN PRN Reason: Loose Stool Last Admin: 08/07/23 14:48 Dose: 2 mg Magnesium Hydroxide (Milk Of Magnesia 30 Ml Oral.Susp) 30 ml PO DAILY PRN PRN Reason: Constipation Magnesium Oxide (Magnesium [facility]ide 400 Mg Tablet) [facility] Last Admin: 08/22/23 16:44 Dose: 400 mg Memantine (Memantine Hcl 10 Mg Tablet) 10 mg PO BID [facility] Last Admin: 08/22/23 21:09 Dose: 10 mg Metformin HCl (Metformin Hcl 1,000 Mg Tablet) 1,000 mg PO BID [facility] Last Admin: 08/22/23 21:09 Dose: 1,000 mg Olanzapine (Olanzapine 2.5 Mg Tablet) 2.5 mg PO Q4H PRN PRN Reason: anxiety/agitation Last Admin: 08/22/23 21:09 Dose: 2.5 mg Sertraline HCl (Sertraline Hcl 100 Mg Tablet) 100 mg PO DAILY [facility] Last Admin: 08/22/23 09:40 Dose: 100 mg Trazodone HCl (Trazodone Hcl 50 Mg Tablet) 50 mg PO BEDTIME MRX1 PRN PRN Reason: Insomnia Last Admin: 08/22/23 21:09 Dose: 50 mg Allergies Allergies Allergy/AdvReac Type Severity Reaction Status Date / Time No Known Allergies Allergy Verified 03/23/23 18:13 Assessment & Plan Assessment & Plan (1) Alzheimer's dementia: Status: Acute Code(s): G30.9 - Alzheimer's disease, unspecified; F02.80 - Dementia in other diseases classified elsewhere, unspecified severity, without behavioral disturbance, psychotic disturbance, mood disturbance, and anxiety Assessment and Plan: 58 years old woman with relative young age onset at Alzheimer dementia but overall clinical picture is affected by significant depression, which continues to be the predominant feature of for clinical picture. Conventional dementia medicines such as donepezil or memantine can be tried but usually do not make significant difference. I would suggest memantine 10 mg twice a day and donepezil 10 mg daily. Recently a new dementia at drug for Alzheimer was approved but only for relatively mild dementia or mild cognitive impairment type of patients. She would not qualify for that drug. 08/11 continue current treatment plan Plan 1. Continue same treatment. 2. Waiting for placement. 3. Lower Haldol to 1 mg p.o. q.h.s. on July 28. August 17 we discontinue Haldol at night. 4. August 18 we decided to add a low dose of Adderall 5 mg p.o. b.i.d. to target her hypoactivity. So far, had been a modest improvement of her hypoactive.. Plan Patient with low magnesium met result discontinued core needing care with hospitalist team given p.o. magnesium monitor levels neuro consult Reason for continued inpatient stay Substantial Risk for: inability to function, rapid decompensation and med/psych decompensation Time Spent With Patient Time: Total time managing care of this patient today __20__ minutes.
[2023-08-23] MEDS: Memantine HCl 10 MG TABLET PO ×2 (11:50→20:02)
[2023-08-23] MEDS: Famotidine 20 MG TABLET PO (11:50)
[2023-08-23] MEDS: Sertraline HCL 100 MG TABLET PO (11:50)
[2023-08-23] MEDS: Empagliflozin 25 MG TABLET PO (11:50)
[2023-08-23] MEDS: metFORMIN HCl 1,000 MG TABLET 1000 MG PO ×2 (11:50→20:02)
[2023-08-23] MEDS: Magnesium Oxide 400 MG TABLET PO ×2 (11:51→17:05)
[2023-08-23] MEDS: Amphetamine Mixed Salts 10 MG TABLET 5 MG PO ×2 (11:57→17:05)
[2023-08-23] MEDS: Atorvastatin Calcium 40 MG TABLET PO (11:58)
[2023-08-23] MEDS: Insulin Glargine,Hum.rec.anlog 100 UNIT/ML 10 ML VIAL 6 UNIT SUBCUT (11:58)
[2023-08-23 12:13] VITALS: BP 120/59; PULSE 72; RESP 18; TEMP 36.3; O2SAT 97
--- NOTE | 2023-08-23 14:08 | MHC.CLN ---
F/U DIET=DIABETIC 1800 KCAL. ENSURE MAX PROTEIN TID PROVIDES 450 KCALS, 90 G PROTEIN. INTAKE CONTINUES VARIABLE. CONTINUE TO ENCOURAGE INTAKE ABLE. WEIGHT APPEARS STABLE X 3 WEEKS. FOLLOW WEEKLY FOR INTAKE AND WEIGHT.
[2023-08-23] MEDS: traZODone HCL 50 MG TABLET PO (20:02)
[2023-08-23] MEDS: Donepezil HCl 10 MG TABLET PO (20:02)
[2023-08-24 07:00] VITALS: BMI 26.4
[2023-08-24 08:13] LABS: Creatinine Clr Calc Pharmacy 96.7; Estimated Glomerular Filt Rate > 60
[2023-08-24 10:02] VITALS: BP 137/66; PULSE 77; RESP 16; TEMP 36.2; O2SAT 96
[2023-08-24] MEDS: metFORMIN HCl 1,000 MG TABLET 1000 MG PO ×2 (10:10→20:21)
[2023-08-24] MEDS: Sertraline HCL 100 MG TABLET PO (10:10)
[2023-08-24] MEDS: Famotidine 20 MG TABLET PO (10:10)
[2023-08-24] MEDS: Amphetamine Mixed Salts 10 MG TABLET 5 MG PO (10:10)
[2023-08-24] MEDS: Memantine HCl 10 MG TABLET PO ×2 (10:10→20:21)
[2023-08-24] MEDS: Magnesium Oxide 400 MG TABLET PO ×2 (10:10→17:00)
[2023-08-24] MEDS: Empagliflozin 25 MG TABLET PO (10:10)
[2023-08-24] MEDS: Atorvastatin Calcium 40 MG TABLET PO (10:10)
[2023-08-24] MEDS: Insulin Glargine,Hum.rec.anlog 100 UNIT/ML 10 ML VIAL 6 UNIT SUBCUT (10:21)
--- NOTE | 2023-08-24 14:12 | P.PNPSI_ITS ---
Subjective Subjective Date of Service: 08/24/23 Reason For Visit: hallucinations confusion Subjective Notes: Conditional Voluntary Interim History: The nursing staff reported the patient had been Gerardo more active since Adderall was started. Still severely cognitively impaired. On interview the patient meds new symptoms, waiting for placement. On team we decided to increase Adderall to target her lack of activity. Mental Status Exam Mental Status Exam Patient Appearance: Appropriate Patient Orientation: Person Level of Consciousness: Awake and Disoriented Patient Behavior: Appropriate, Guarded and Passive Mood Description: Calm Affect Description: Blunted Patient Cognition Impaired: Yes Ability to Follow Directions: Fair Speech Pattern: Appropriate Hallucinations: None Delusions: Not Present Thought Process: Distracted Thought Content: positive for [place], positive for Poverty of Content and positive for Thought Blocking Judgement: Poor Diagnostics Vital Signs (24Hr): Vital Signs - 24 hr 08/24/23 10:02 Temperature 97.2 F Pulse Rate 77 Respiratory Rate 16 Blood Pressure 137/66 Pulse Oximetry 96 Oxygen Delivery Method Room Air BMI result Body Mass Index 26.4 Labs 07/03/23 18:16 08/24/23 07:52 Labs: Laboratory Results - last 48 hr 08/24/23 07:52 Creatinine 0.57 Estim Creat Clear Calc 96.7 Estimated GFR > 60 Imaging Radiology Impressions: ITS Impressions Brain MRI 04/03/23 15:30 IMPRESSION: No acute infarct, mass lesion, intracranial hemorrhage, or evidence of hydrocephalus. Mild nonspecific T2/FLAIR hyperintensity in the cerebral white matter and danny presumably on the basis of chronic microangiopathy. Cervical Spine CT 07/03/23 20:12 IMPRESSION: No acute findings within the cervical spine. The cervical central canal is not well assessed on this CT due to artifact. If weakness persists, a cervical spine MRI would be more sensitive in assessment. Medications Medications Current Medications Acetaminophen (Acetaminophen 325 Mg Tablet) 650 mg PO Q6H PRN PRN Reason: Headache/Pain Mild Scale (1-3) Last Admin: 08/22/23 21:09 Dose: 650 mg Al Hydroxide/Mg Hydroxide (Magnesium Hydrox/Alum Hydrox 30 Ml Oral.Susp) 30 ml PO Q6H PRN PRN Reason: Heartburn/Nausea Amphetamine/Dextroamphetamine (Amphetamine Mixed Salts 10 Mg Tablet) 5 mg PO BID@0800,1700 [facility] Last Admin: 08/24/23 10:10 Dose: 5 mg Atorvastatin Calcium (Atorvastatin Calcium 40 Mg Tablet) 40 mg PO DAILY [facility] Last Admin: 08/24/23 10:10 Dose: 40 mg Donepezil HCl (Donepezil Hcl 10 Mg Tablet) 10 mg PO BEDTIME [facility] Last Admin: 08/23/23 20:02 Dose: 10 mg Empagliflozin (Empagliflozin 25 Mg Tablet) 25 mg PO DAILY [facility] Last Admin: 08/24/23 10:10 Dose: 25 mg Famotidine (Famotidine 20 Mg Tablet) 20 mg PO DAILY [facility] Last Admin: 08/24/23 10:10 Dose: 20 mg Ibuprofen (Ibuprofen 600 Mg Tablet) 600 mg PO Q6H PRN PRN Reason: pain not relieved by tylenol Last Admin: 08/07/23 21:10 Dose: 600 mg Insulin Glargine (Insulin Glargine,Hum.Rec.Anlog 100 Unit/Ml 10 Ml Vial) 6 unit SUBCUT DAILY [facility] Last Admin: 08/24/23 10:21 Dose: 6 unit Loperamide HCl (Loperamide Hcl 2 Mg Capsule) 2 mg PO Q6H PRN PRN Reason: Loose Stool Last Admin: 08/07/23 14:48 Dose: 2 mg Magnesium Hydroxide (Milk Of Magnesia 30 Ml Oral.Susp) 30 ml PO DAILY PRN PRN Reason: Constipation Magnesium Oxide ([facility] 400 Mg [facility]t) [facility] Last Admin: 08/24/23 10:10 Dose: 400 mg Memantine (Memantine Hcl 10 Mg Tablet) 10 mg PO BID [facility] Last Admin: 08/24/23 10:10 Dose: 10 mg Metformin HCl (Metformin Hcl 1,000 Mg Tablet) 1,000 mg PO BID [facility] Last Admin: 08/24/23 10:10 Dose: 1,000 mg Olanzapine (Olanzapine 2.5 Mg Tablet) 2.5 mg PO Q4H PRN PRN Reason: anxiety/agitation Last Admin: 08/22/23 21:09 Dose: 2.5 mg Sertraline HCl (Sertraline Hcl 100 Mg Tablet) 100 mg PO DAILY [facility] Last Admin: 08/24/23 10:10 Dose: 100 mg Trazodone HCl (Trazodone Hcl 50 Mg Tablet) 50 mg PO BEDTIME MRX1 PRN PRN Reason: Insomnia Last Admin: 08/23/23 20:02 Dose: 50 mg Allergies Allergies Allergy/AdvReac Type Severity Reaction Status Date / Time No Known Allergies Allergy Verified 03/23/23 18:13 Assessment & Plan Assessment & Plan (1) Alzheimer's dementia: Status: Acute Code(s): G30.9 - Alzheimer's disease, unspecified; F02.80 - Dementia in other diseases classified elsewhere, unspecified severity, without behavioral disturbance, psychotic disturbance, mood disturbance, and anxiety Assessment and Plan: August 24 58 years old woman with relative young age onset at Alzheimer dementia but overall clinical picture is affected by significant depression, which continues to be the predominant feature of for clinical picture. Conventional dementia medicines such as donepezil or memantine can be tried but usually do not make significant difference. I would suggest memantine 10 mg twice a day and donepezil 10 mg daily. Recently a new dementia at drug for Alzheimer was approved but only for relatively mild dementia or mild cognitive impairment type of patients. She would not qualify for that drug. 08/11 continue current treatment plan Plan 1. Continue same treatment. 2. Waiting for placement. 3. Lower Haldol to 1 mg p.o. q.h.s. on July 28. August 17 we discontinue Haldol at night. 4. August 18 we decided to add a low dose of Adderall 5 mg p.o. b.i.d. to target her hypoactivity. So far, had been a modest improvement of her hypoactive so we increase other up to 10 mg p.o. b.i.d. on August 24. Plan Patient with low magnesium met result discontinued core needing care with hospitalist team given p.o. magnesium monitor levels neuro consult Reason for continued inpatient stay Substantial Risk for: inability to function, rapid decompensation and med/psych decompensation Time Spent With Patient Time: Total time managing care of this patient today __20__ minutes.
[2023-08-24] MEDS: Amphetamine Mixed Salts 10 MG TABLET PO (17:00)
[2023-08-24 19:52] VITALS: BP 107/60; PULSE 82; RESP 16; TEMP 36.3; O2SAT 97
[2023-08-24] MEDS: Donepezil HCl 10 MG TABLET PO (20:21)
[2023-08-24] MEDS: traZODone HCL 50 MG TABLET PO (20:21)
[2023-08-25 12:21] VITALS: BP 124/67; PULSE 75; RESP 16; TEMP 36.2; O2SAT 98
[2023-08-25] MEDS: Memantine HCl 10 MG TABLET PO ×2 (12:29→20:39)
[2023-08-25] MEDS: Amphetamine Mixed Salts 10 MG TABLET PO ×2 (12:29→17:53)
[2023-08-25] MEDS: Famotidine 20 MG TABLET PO (12:29)
[2023-08-25] MEDS: metFORMIN HCl 1,000 MG TABLET 1000 MG PO ×2 (12:29→20:38)
[2023-08-25] MEDS: Sertraline HCL 100 MG TABLET PO (12:29)
[2023-08-25] MEDS: Atorvastatin Calcium 40 MG TABLET PO (12:29)
[2023-08-25] MEDS: Magnesium Oxide 400 MG TABLET PO ×2 (12:29→17:53)
[2023-08-25] MEDS: Empagliflozin 25 MG TABLET PO (12:29)
[2023-08-25] MEDS: Insulin Glargine,Hum.rec.anlog 100 UNIT/ML 10 ML VIAL 6 UNIT SUBCUT (12:29)
--- NOTE | 2023-08-25 12:57 | P.PNPSI_ITS ---
Subjective Subjective Date of Service: 08/25/23 Reason For Visit: hallucinations confusion Subjective Notes: Conditional Voluntary Interim History: The nursing staff reported the patient had been pleasant on approach, wandering the unit confused at times. The occupational therapist reported that yesterday she was less engageable. On interview the patient denies new symptoms, waiting for placement. Mental Status Exam Mental Status Exam Patient Appearance: Well Grooomed Patient Orientation: Person Level of Consciousness: Awake Patient Behavior: Guarded and Suspicious Mood Description: Withdrawn Affect Description: Constricted Patient Cognition Impaired: Yes Ability to Follow Directions: Good Speech Pattern: Clear Hallucinations: None Delusions: Not Present Thought Process: Distracted and Slowed Thinking Thought Content: positive for Poverty of Content Judgement: Poor Diagnostics Vital Signs (24Hr): Vital Signs - 24 hr 08/24/23 19:52 08/25/23 12:21 Temperature 97.4 F 97.1 F Pulse Rate 82 75 Respiratory Rate 16 16 Blood Pressure 107/60 124/67 Pulse Oximetry 97 98 Oxygen Delivery Method Room Air Room Air BMI result Body Mass Index 26.4 Labs 07/03/23 18:16 08/24/23 07:52 Labs: Laboratory Results - last 48 hr 08/24/23 07:52 Creatinine 0.57 Estim Creat Clear Calc 96.7 Estimated GFR > 60 Imaging Radiology Impressions: ITS Impressions Brain MRI 04/03/23 15:30 IMPRESSION: No acute infarct, mass lesion, intracranial hemorrhage, or evidence of hydrocephalus. Mild nonspecific T2/FLAIR hyperintensity in the cerebral white matter and danny presumably on the basis of chronic microangiopathy. Cervical Spine CT 07/03/23 20:12 IMPRESSION: No acute findings within the cervical spine. The cervical central canal is not well assessed on this CT due to artifact. If weakness persists, a cervical spine MRI would be more sensitive in assessment. Medications Medications Current Medications Acetaminophen (Acetaminophen 325 Mg Tablet) 650 mg PO Q6H PRN PRN Reason: Headache/Pain Mild Scale (1-3) Last Admin: 08/22/23 21:09 Dose: 650 mg Al Hydroxide/Mg Hydroxide (Magnesium Hydrox/Alum Hydrox 30 Ml Oral.Susp) 30 ml PO Q6H PRN PRN Reason: Heartburn/Nausea Amphetamine/Dextroamphetamine (Amphetamine Mixed Salts 10 Mg Tablet) 10 mg PO BID@0800,1700 [facility] Last Admin: 08/25/23 12:29 Dose: 10 mg Atorvastatin Calcium (Atorvastatin Calcium 40 Mg Tablet) 40 mg PO DAILY [facility] Last Admin: 08/25/23 12:29 Dose: 40 mg Donepezil HCl (Donepezil Hcl 10 Mg Tablet) 10 mg PO BEDTIME [facility] Last Admin: 08/24/23 20:21 Dose: 10 mg Empagliflozin (Empagliflozin 25 Mg Tablet) 25 mg PO DAILY [facility] Last Admin: 08/25/23 12:29 Dose: 25 mg Famotidine (Famotidine 20 Mg Tablet) 20 mg PO DAILY [facility] Last Admin: 08/25/23 12:29 Dose: 20 mg Ibuprofen (Ibuprofen 600 Mg Tablet) 600 mg PO Q6H PRN PRN Reason: pain not relieved by tylenol Last Admin: 08/07/23 21:10 Dose: 600 mg Insulin Glargine (Insulin Glargine,Hum.Rec.Anlog 100 Unit/Ml 10 Ml Vial) 6 unit SUBCUT DAILY [facility] Last Admin: 08/25/23 12:29 Dose: 6 unit Loperamide HCl (Loperamide Hcl 2 Mg Capsule) 2 mg PO Q6H PRN PRN Reason: Loose Stool Last Admin: 08/07/23 14:48 Dose: 2 mg Magnesium Hydroxide (Milk Of Magnesia 30 Ml Oral.Susp) 30 ml PO DAILY PRN PRN Reason: Constipation Magnesium Oxide (Magnesium Oxide 400 Mg Tablet) [facility] Last Admin: 08/25/23 12:29 Dose: 400 mg Memantine (Memantine Hcl 10 Mg Tablet) 10 mg PO BID [facility] Last Admin: 08/25/23 12:29 Dose: 10 mg Metformin HCl (Metformin Hcl 1,000 Mg Tablet) 1,000 mg PO BID [facility] Last Admin: 08/25/23 12:29 Dose: 1,000 mg Olanzapine (Olanzapine 2.5 Mg Tablet) 2.5 mg PO Q4H PRN PRN Reason: anxiety/agitation Last Admin: 08/22/23 21:09 Dose: 2.5 mg Sertraline HCl (Sertraline Hcl 100 Mg Tablet) 100 mg PO DAILY [facility] Last Admin: 08/25/23 12:29 Dose: 100 mg Trazodone HCl (Trazodone Hcl 50 Mg Tablet) 50 mg PO BEDTIME MRX1 PRN PRN Reason: Insomnia Last Admin: 08/24/23 20:21 Dose: 50 mg Allergies Allergies Allergy/AdvReac Type Severity Reaction Status Date / Time No Known Allergies Allergy Verified 03/23/23 18:13 Assessment & Plan Assessment & Plan (1) Alzheimer's dementia: Status: Acute Code(s): G30.9 - Alzheimer's disease, unspecified; F02.80 - Dementia in other diseases classified elsewhere, unspecified severity, without behavioral disturbance, psychotic disturbance, mood disturbance, and anxiety Assessment and Plan: August 24 58 years old woman with relative young age onset at Alzheimer dementia but overall clinical picture is affected by significant depression, which continues to be the predominant feature of for clinical picture. Conventional dementia medicines such as donepezil or memantine can be tried but usually do not make significant difference. I would suggest memantine 10 mg twice a day and donepezil 10 mg daily. Recently a new dementia at drug for Alzheimer was approved but only for relatively mild dementia or mild cognitive impairment type of patients. She would not qualify for that drug. 08/11 continue current treatment plan Plan 1. Continue same treatment. 2. Waiting for placement. 3. Lower Haldol to 1 mg p.o. q.h.s. on July 28. August 17 we discontinue Haldol at night. 4. August 18 we decided to add a low dose of Adderall 5 mg p.o. b.i.d. to target her hypoactivity. So far, had been a modest improvement of her hypoactive so we increase other up to 10 mg p.o. b.i.d. on August 24. Plan Patient with low magnesium met result discontinued core needing care with hospitalist team given p.o. magnesium monitor levels neuro consult Reason for continued inpatient stay Substantial Risk for: inability to function, rapid decompensation and med/psych decompensation Time Spent With Patient Time: Total time managing care of this patient today __20__ minutes.
[2023-08-25 18:00] VITALS: BP 136/60; PULSE 92; RESP 16; TEMP 35.8; O2SAT 98
[2023-08-25] MEDS: traZODone HCL 50 MG TABLET PO (20:38)
[2023-08-25] MEDS: Donepezil HCl 10 MG TABLET PO (20:39)
[2023-08-26 08:00] VITALS: BP 136/74; PULSE 78; RESP 18; TEMP 36.6; O2SAT 96
[2023-08-26] MEDS: Empagliflozin 25 MG TABLET PO (08:17)
[2023-08-26] MEDS: Famotidine 20 MG TABLET PO (08:17)
[2023-08-26] MEDS: Memantine HCl 10 MG TABLET PO ×2 (08:17→20:40)
[2023-08-26] MEDS: Atorvastatin Calcium 40 MG TABLET PO (08:17)
[2023-08-26] MEDS: Amphetamine Mixed Salts 10 MG TABLET PO ×2 (08:17→16:45)
[2023-08-26] MEDS: Sertraline HCL 100 MG TABLET PO (08:17)
[2023-08-26] MEDS: metFORMIN HCl 1,000 MG TABLET 1000 MG PO ×2 (08:17→20:40)
[2023-08-26] MEDS: Insulin Glargine,Hum.rec.anlog 100 UNIT/ML 10 ML VIAL 6 UNIT SUBCUT (08:18)
[2023-08-26] MEDS: Magnesium Oxide 400 MG TABLET PO ×2 (08:18→16:45)
[2023-08-26 18:00] VITALS: BP 138/73; PULSE 87; TEMP 36.6; O2SAT 97
[2023-08-26] MEDS: Donepezil HCl 10 MG TABLET PO (20:39)
[2023-08-26] MEDS: traZODone HCL 50 MG TABLET PO (20:39)
--- NOTE | 2023-08-27 00:16 | P.PNPSI_ITS ---
Subjective Subjective Date of Service: 08/26/23 Reason For Visit: hallucinations confusion Interim History: Patient come cooperative in no distress improved with stimulant Medication Compliance: Yes Mental Status Exam Mental Status Exam Patient Appearance: Well Grooomed Patient Orientation: Person Level of Consciousness: Awake Patient Behavior: Guarded and Suspicious Mood Description: Withdrawn Affect Description: Constricted Patient Cognition Impaired: Yes Ability to Follow Directions: Good Speech Pattern: Clear Hallucinations: None Delusions: Not Present Thought Process: Distracted and Slowed Thinking Thought Content: positive for Poverty of Content Judgement: Poor Diagnostics Vital Signs (24Hr): Vital Signs - 24 hr 08/26/23 08:00 08/26/23 18:00 Temperature 97.8 F 97.9 F Pulse Rate 78 87 Respiratory Rate 18 Blood Pressure 136/74 138/73 Pulse Oximetry 96 97 Oxygen Delivery Method Room Air Room Air BMI result Body Mass Index 26.4 Labs 07/03/23 18:16 08/24/23 07:52 Imaging Radiology Impressions: ITS Impressions Brain MRI 04/03/23 15:30 IMPRESSION: No acute infarct, mass lesion, intracranial hemorrhage, or evidence of hydrocephalus. Mild nonspecific T2/FLAIR hyperintensity in the cerebral white matter and danny presumably on the basis of chronic microangiopathy. Cervical Spine CT 07/03/23 20:12 IMPRESSION: No acute findings within the cervical spine. The cervical central canal is not well assessed on this CT due to artifact. If weakness persists, a cervical spine MRI would be more sensitive in assessment. Medications Medications Current Medications Acetaminophen (Acetaminophen 325 Mg Tablet) 650 mg PO Q6H PRN PRN Reason: Headache/Pain Mild Scale (1-3) Last Admin: 08/22/23 21:09 Dose: 650 mg Al Hydroxide/Mg Hydroxide (Magnesium Hydrox/Alum Hydrox 30 Ml Oral.Susp) 30 ml PO Q6H PRN PRN Reason: Heartburn/Nausea Amphetamine/Dextroamphetamine (Amphetamine Mixed Salts 10 Mg Tablet) 10 mg PO BID@0800,1700 [facility] Last Admin: 08/26/23 16:45 Dose: 10 mg Atorvastatin Calcium (Atorvastatin Calcium 40 Mg Tablet) 40 mg PO DAILY [facility] Last Admin: 08/26/23 08:17 Dose: 40 mg Donepezil HCl (Donepezil Hcl 10 Mg Tablet) 10 mg PO BEDTIME [facility] Last Admin: 08/26/23 20:39 Dose: 10 mg Empagliflozin (Empagliflozin 25 Mg Tablet) 25 mg PO DAILY [facility] Last Admin: 08/26/23 08:17 Dose: 25 mg Famotidine (Famotidine 20 Mg Tablet) 20 mg PO DAILY [facility] Last Admin: 08/26/23 08:17 Dose: 20 mg Ibuprofen (Ibuprofen 600 Mg Tablet) 600 mg PO Q6H PRN PRN Reason: pain not relieved by tylenol Last Admin: 08/07/23 21:10 Dose: 600 mg Insulin Glargine (Insulin Glargine,Hum.Rec.Anlog 100 Unit/Ml 10 Ml Vial) 6 unit SUBCUT DAILY [facility] Last Admin: 08/26/23 08:18 Dose: 6 unit Loperamide HCl (Loperamide Hcl 2 Mg Capsule) 2 mg PO Q6H PRN PRN Reason: Loose Stool Last Admin: 08/07/23 14:48 Dose: 2 mg Magnesium Hydroxide (Milk Of Magnesia 30 Ml Oral.Susp) 30 ml PO DAILY PRN PRN Reason: Constipation Magnesium Oxide (Magn[facility] 400 Mg Tablet) [facility] Last Admin: 08/26/23 16:45 Dose: 400 mg Memantine (Memantine Hcl 10 Mg Tablet) 10 mg PO BID [facility] Last Admin: 08/26/23 20:40 Dose: 10 mg Metformin HCl (Metformin Hcl 1,000 Mg Tablet) 1,000 mg PO BID [facility] Last Admin: 08/26/23 20:40 Dose: 1,000 mg Olanzapine (Olanzapine 2.5 Mg Tablet) 2.5 mg PO Q4H PRN PRN Reason: anxiety/agitation Last Admin: 08/22/23 21:09 Dose: 2.5 mg Sertraline HCl (Sertraline Hcl 100 Mg Tablet) 100 mg PO DAILY [facility] Last Admin: 08/26/23 08:17 Dose: 100 mg Trazodone HCl (Trazodone Hcl 50 Mg Tablet) 50 mg PO BEDTIME MRX1 PRN PRN Reason: Insomnia Last Admin: 08/26/23 20:39 Dose: 50 mg Allergies Allergies Allergy/AdvReac Type Severity Reaction Status Date / Time No Known Allergies Allergy Verified 03/23/23 18:13 Assessment & Plan Assessment & Plan (1) Alzheimer's dementia: Status: Acute Code(s): G30.9 - Alzheimer's disease, unspecified; F02.80 - Dementia in other diseases classified elsewhere, unspecified severity, without behavioral disturbance, psychotic disturbance, mood disturbance, and anxiety Assessment and Plan: August 24 58 years old woman with relative young age onset at Alzheimer dementia but overall clinical picture is affected by significant depression, which continues to be the predominant feature of for clinical picture. Conventional dementia medicines such as donepezil or memantine can be tried but usually do not make significant difference. I would suggest memantine 10 mg twice a day and donepezil 10 mg daily. Recently a new dementia at drug for Alzheimer was approved but only for relatively mild dementia or mild cognitive impairment type of patients. She would not qualify for that drug. 08/11 continue current treatment plan Plan 1. Continue same treatment. 2. Waiting for placement. 3. Lower Haldol to 1 mg p.o. q.h.s. on July 28. August 17 we discontinue Haldol at night. 4. August 18 we decided to add a low dose of Adderall 5 mg p.o. b.i.d. to target her hypoactivity. So far, had been a modest improvement of her hypoactive so we increase other up to 10 mg p.o. b.i.d. on August 24. Plan Continue plan of care Reason for continued inpatient stay Substantial Risk for: inability to function Time Spent With Patient Time: Total time managing care of this patient today ____ minutes.
[2023-08-27 07:55] VITALS: BP 133/63; PULSE 73; RESP 18; TEMP 36.8; O2SAT 98
[2023-08-27] MEDS: Amphetamine Mixed Salts 10 MG TABLET PO ×2 (08:11→16:43)
[2023-08-27] MEDS: Empagliflozin 25 MG TABLET PO (08:11)
[2023-08-27] MEDS: Famotidine 20 MG TABLET PO (08:12)
[2023-08-27] MEDS: Insulin Glargine,Hum.rec.anlog 100 UNIT/ML 10 ML VIAL 6 UNIT SUBCUT (08:12)
[2023-08-27] MEDS: Magnesium Oxide 400 MG TABLET PO ×2 (08:12→16:43)
[2023-08-27] MEDS: Atorvastatin Calcium 40 MG TABLET PO (08:12)
[2023-08-27] MEDS: Sertraline HCL 100 MG TABLET PO (08:12)
[2023-08-27] MEDS: metFORMIN HCl 1,000 MG TABLET 1000 MG PO ×2 (08:12→20:18)
[2023-08-27] MEDS: Memantine HCl 10 MG TABLET PO ×2 (08:12→20:18)
[2023-08-27 18:00] VITALS: BP 124/60; PULSE 86; RESP 18; TEMP 36.6; O2SAT 98
[2023-08-27] MEDS: Donepezil HCl 10 MG TABLET PO (20:18)
[2023-08-27] MEDS: Acetaminophen 325 MG TABLET 650 MG PO (21:54)
--- NOTE | 2023-08-28 00:28 | HO.PSYCHPN ---
Subjective Subjective Date of Service: 08/27/23 Reason For Visit: hallucinations confusion Interim History: Patient's case reviewed with the treatment team patient seen patient seems more alert improved ambulation mood more so stable spontaneously smiling hung affect discharge planning has been problematic Medication Compliance: Yes Mental Status Exam Mental Status Exam Patient Appearance: Well Grooomed Patient Orientation: Person Level of Consciousness: Awake Patient Behavior: Cooperative and Passive Mood Description: Calm Affect Description: Constricted Patient Cognition Impaired: Yes Ability to Follow Directions: Good Speech Pattern: Clear Hallucinations: None Delusions: Not Present Thought Process: Distracted and Linear Thought Content: positive for [place] and positive for Poverty of Content Judgement: Poor Diagnostics Vital Signs (24Hr): Vital Signs - 24 hr 08/27/23 07:55 08/27/23 18:00 Temperature 98.2 F 97.8 F Pulse Rate 73 86 Respiratory Rate 18 18 Blood Pressure 133/63 124/60 Pulse Oximetry 98 98 Oxygen Delivery Method Room Air Room Air BMI result Body Mass Index 26.4 Labs 07/03/23 18:16 08/24/23 07:52 Imaging Radiology Impressions: ITS Impressions Brain MRI 04/03/23 15:30 IMPRESSION: No acute infarct, mass lesion, intracranial hemorrhage, or evidence of hydrocephalus. Mild nonspecific T2/FLAIR hyperintensity in the cerebral white matter and danny presumably on the basis of chronic microangiopathy. Cervical Spine CT 07/03/23 20:12 IMPRESSION: No acute findings within the cervical spine. The cervical central canal is not well assessed on this CT due to artifact. If weakness persists, a cervical spine MRI would be more sensitive in assessment. Medications Medications Current Medications Acetaminophen (Acetaminophen 325 Mg Tablet) 650 mg PO Q6H PRN PRN Reason: Headache/Pain Mild Scale (1-3) Last Admin: 08/27/23 21:54 Dose: 650 mg Al Hydroxide/Mg Hydroxide (Magnesium Hydrox/Alum Hydrox 30 Ml Oral.Susp) 30 ml PO Q6H PRN PRN Reason: Heartburn/Nausea Amphetamine/Dextroamphetamine (Amphetamine Mixed Salts 10 Mg Tablet) 10 mg PO BID@0800,1700 [facility] Last Admin: 08/27/23 16:43 Dose: 10 mg Atorvastatin Calcium (Atorvastatin Calcium 40 Mg Tablet) 40 mg PO DAILY [facility] Last Admin: 08/27/23 08:12 Dose: 40 mg Donepezil HCl (Donepezil Hcl 10 Mg Tablet) 10 mg PO BEDTIME [facility] Last Admin: 08/27/23 20:18 Dose: 10 mg Empagliflozin (Empagliflozin 25 Mg Tablet) 25 mg PO DAILY [facility] Last Admin: 08/27/23 08:11 Dose: 25 mg Famotidine (Famotidine 20 Mg Tablet) 20 mg PO DAILY [facility] Last Admin: 08/27/23 08:12 Dose: 20 mg Ibuprofen (Ibuprofen 600 Mg Tablet) 600 mg PO Q6H PRN PRN Reason: pain not relieved by tylenol Last Admin: 08/07/23 21:10 Dose: 600 mg Insulin Glargine (Insulin Glargine,Hum.Rec.Anlog 100 Unit/Ml 10 Ml Vial) 6 unit SUBCUT DAILY [facility] Last Admin: 08/27/23 08:12 Dose: 6 unit Loperamide HCl (Loperamide Hcl 2 Mg Capsule) 2 mg PO Q6H PRN PRN Reason: Loose Stool Last Admin: 08/07/23 14:48 Dose: 2 mg Magnesium Hydroxide (Milk Of Magnesia 30 Ml Oral.Susp) 30 ml PO DAILY PRN PRN Reason: Constipation Magnesium Oxide ([facility] 400 Mg Tablet) [facility] Last Admin: 08/27/23 16:43 Dose: 400 mg Memantine (Memantine Hcl 10 Mg Tablet) 10 mg PO BID [facility] Last Admin: 08/27/23 20:18 Dose: 10 mg Metformin HCl (Metformin Hcl 1,000 Mg Tablet) 1,000 mg PO BID [facility] Last Admin: 08/27/23 20:18 Dose: 1,000 mg Olanzapine (Olanzapine 2.5 Mg Tablet) 2.5 mg PO Q4H PRN PRN Reason: anxiety/agitation Last Admin: 08/22/23 21:09 Dose: 2.5 mg Sertraline HCl (Sertraline Hcl 100 Mg Tablet) 100 mg PO DAILY [facility] Last Admin: 08/27/23 08:12 Dose: 100 mg Trazodone HCl (Trazodone Hcl 50 Mg Tablet) 50 mg PO BEDTIME MRX1 PRN PRN Reason: Insomnia Last Admin: 08/26/23 20:39 Dose: 50 mg Allergies Allergies Allergy/AdvReac Type Severity Reaction Status Date / Time No Known Allergies Allergy Verified 03/23/23 18:13 Assessment & Plan Assessment & Plan (1) Alzheimer's dementia: Status: Acute Code(s): G30.9 - Alzheimer's disease, unspecified; F02.80 - Dementia in other diseases classified elsewhere, unspecified severity, without behavioral disturbance, psychotic disturbance, mood disturbance, and anxiety Assessment and Plan: August 24 58 years old woman with relative young age onset at Alzheimer dementia but overall clinical picture is affected by significant depression, which continues to be the predominant feature of for clinical picture. Conventional dementia medicines such as donepezil or memantine can be tried but usually do not make significant difference. I would suggest memantine 10 mg twice a day and donepezil 10 mg daily. Recently a new dementia at drug for Alzheimer was approved but only for relatively mild dementia or mild cognitive impairment type of patients. She would not qualify for that drug. 08/11 continue current treatment plan Plan 1. Continue same treatment. 2. Waiting for placement. 3. Lower Haldol to 1 mg p.o. q.h.s. on July 28. August 17 we discontinue Haldol at night. 4. August 18 we decided to add a low dose of Adderall 5 mg p.o. b.i.d. to target her hypoactivity. So far, had been a modest improvement of her hypoactive so we increase other up to 10 mg p.o. b.i.d. on August 24. Plan Continue plan of care 08/27/2023 Patient seems to be responding to current treatment continue discharge planning Reason for continued inpatient stay Substantial Risk for: inability to function and rapid decompensation Time Spent With Patient Time: Total time managing care of this patient today ____ minutes.
[2023-08-28 08:00] VITALS: BP 118/68; PULSE 71; RESP 18; TEMP 36.6; O2SAT 94
[2023-08-28] MEDS: Famotidine 20 MG TABLET PO (08:27)
[2023-08-28] MEDS: Atorvastatin Calcium 40 MG TABLET PO (08:27)
[2023-08-28] MEDS: Magnesium Oxide 400 MG TABLET PO ×2 (08:28→16:55)
[2023-08-28] MEDS: Empagliflozin 25 MG TABLET PO (08:28)
[2023-08-28] MEDS: metFORMIN HCl 1,000 MG TABLET 1000 MG PO ×2 (08:28→20:22)
[2023-08-28] MEDS: Sertraline HCL 100 MG TABLET PO (08:28)
[2023-08-28] MEDS: Memantine HCl 10 MG TABLET PO ×2 (08:28→20:22)
[2023-08-28] MEDS: Amphetamine Mixed Salts 10 MG TABLET PO ×2 (08:28→16:55)
[2023-08-28] MEDS: Insulin Glargine,Hum.rec.anlog 100 UNIT/ML 10 ML VIAL 6 UNIT SUBCUT (08:31)
--- NOTE | 2023-08-28 11:23 | P.PNPSI_ITS ---
Subjective Subjective Date of Service: 08/28/23 Reason For Visit: hallucinations confusion Subjective Notes: Conditional Voluntary Interim History: The nursing staff reported the patient slept 7 hours she had been compliant with treatment no major changes in her mental status. The occupational therapist reported that her affect is slightly brighter since we started adult. On interview the patient denies new symptoms, waiting for placement. Mental Status Exam Mental Status Exam Patient Appearance: Well Grooomed and Appropriate Patient Orientation: Person and Situation Level of Consciousness: Awake and Appropriate Patient Behavior: Guarded and Passive Mood Description: Withdrawn Affect Description: Blunted Patient Cognition Impaired: Yes Ability to Follow Directions: Good Speech Pattern: Clear Hallucinations: None Delusions: Not Present Thought Process: Distracted, Evasive and Slowed Thinking Thought Content: positive for [place] and positive for Poverty of Content Judgement: Fair Diagnostics Vital Signs (24Hr): Vital Signs - 24 hr 08/27/23 18:00 Temperature 97.8 F Pulse Rate 86 Respiratory Rate 18 Blood Pressure 124/60 Pulse Oximetry 98 Oxygen Delivery Method Room Air BMI result Body Mass Index 26.4 Labs 07/03/23 18:16 08/24/23 07:52 Imaging Radiology Impressions: ITS Impressions Brain MRI 04/03/23 15:30 IMPRESSION: No acute infarct, mass lesion, intracranial hemorrhage, or evidence of hydrocephalus. Mild nonspecific T2/FLAIR hyperintensity in the cerebral white matter and danny presumably on the basis of chronic microangiopathy. Cervical Spine CT 07/03/23 20:12 IMPRESSION: No acute findings within the cervical spine. The cervical central canal is not well assessed on this CT due to artifact. If weakness persists, a cervical spine MRI would be more sensitive in assessment. Medications Medications Current Medications Acetaminophen (Acetaminophen 325 Mg Tablet) 650 mg PO Q6H PRN PRN Reason: Headache/Pain Mild Scale (1-3) Last Admin: 08/27/23 21:54 Dose: 650 mg Al Hydroxide/Mg Hydroxide (Magnesium Hydrox/Alum Hydrox 30 Ml Oral.Susp) 30 ml PO Q6H PRN PRN Reason: Heartburn/Nausea Amphetamine/Dextroamphetamine (Amphetamine Mixed Salts 10 Mg Tablet) 10 mg PO BID@0800,1700 [facility] Last Admin: 08/28/23 08:28 Dose: 10 mg Atorvastatin Calcium (Atorvastatin Calcium 40 Mg Tablet) 40 mg PO DAILY [facility] Last Admin: 08/28/23 08:27 Dose: 40 mg Donepezil HCl (Donepezil Hcl 10 Mg Tablet) 10 mg PO BEDTIME [facility] Last Admin: 08/27/23 20:18 Dose: 10 mg Empagliflozin (Empagliflozin 25 Mg Tablet) 25 mg PO DAILY [facility] Last Admin: 08/28/23 08:28 Dose: 25 mg Famotidine (Famotidine 20 Mg Tablet) 20 mg PO DAILY [facility] Last Admin: 08/28/23 08:27 Dose: 20 mg Ibuprofen (Ibuprofen 600 Mg Tablet) 600 mg PO Q6H PRN PRN Reason: pain not relieved by tylenol Last Admin: 08/07/23 21:10 Dose: 600 mg Insulin Glargine (Insulin Glargine,Hum.Rec.Anlog 100 Unit/Ml 10 Ml Vial) 6 unit SUBCUT DAILY [facility] Last Admin: 08/28/23 08:31 Dose: 6 unit Loperamide HCl (Loperamide Hcl 2 Mg Capsule) 2 mg PO Q6H PRN PRN Reason: Loose Stool Last Admin: 08/07/23 14:48 Dose: 2 mg Magnesium Hydroxide (Milk Of Magnesia 30 Ml Oral.Susp) 30 ml PO DAILY PRN PRN Reason: Constipation Magnesium Oxide (Magnesium [facility]ide 400 Mg Tablet) [facility] Last Admin: 08/28/23 08:28 Dose: 400 mg Memantine (Memantine Hcl 10 Mg Tablet) 10 mg PO BID [facility] Last Admin: 08/28/23 08:28 Dose: 10 mg Metformin HCl (Metformin Hcl 1,000 Mg Tablet) 1,000 mg PO BID [facility] Last Admin: 08/28/23 08:28 Dose: 1,000 mg Olanzapine (Olanzapine 2.5 Mg Tablet) 2.5 mg PO Q4H PRN PRN Reason: anxiety/agitation Last Admin: 08/22/23 21:09 Dose: 2.5 mg Sertraline HCl (Sertraline Hcl 100 Mg Tablet) 100 mg PO DAILY [facility] Last Admin: 08/28/23 08:28 Dose: 100 mg Trazodone HCl (Trazodone Hcl 50 Mg Tablet) 50 mg PO BEDTIME MRX1 PRN PRN Reason: Insomnia Last Admin: 08/26/23 20:39 Dose: 50 mg Allergies Allergies Allergy/AdvReac Type Severity Reaction Status Date / Time No Known Allergies Allergy Verified 03/23/23 18:13 Assessment & Plan Assessment & Plan (1) Alzheimer's dementia: Status: Acute Code(s): G30.9 - Alzheimer's disease, unspecified; F02.80 - Dementia in other diseases classified elsewhere, unspecified severity, without behavioral disturbance, psychotic disturbance, mood disturbance, and anxiety Assessment and Plan: August 24 58 years old woman with relative young age onset at Alzheimer dementia but overall clinical picture is affected by significant depression, which continues to be the predominant feature of for clinical picture. Conventional dementia medicines such as donepezil or memantine can be tried but usually do not make significant difference. I would suggest memantine 10 mg twice a day and donepezil 10 mg daily. Recently a new dementia at drug for Alzheimer was approved but only for relatively mild dementia or mild cognitive impairment type of patients. She would not qualify for that drug. 08/11 continue current treatment plan Plan 1. Continue same treatment. 2. Waiting for placement. 3. Lower Haldol to 1 mg p.o. q.h.s. on July 28. August 17 we discontinue Haldol at night. 4. August 18 we decided to add a low dose of Adderall 5 mg p.o. b.i.d. to target her hypoactivity. So far, had been a modest improvement of her hypoactive so we increase other up to 10 mg p.o. b.i.d. on August 24. Plan Continue plan of care Reason for continued inpatient stay Substantial Risk for: inability to function, rapid decompensation and med/psych decompensation Time Spent With Patient Time: Total time managing care of this patient today __20__ minutes.
[2023-08-28 19:40] VITALS: BP 120/65; PULSE 84; RESP 16; TEMP 37.1; O2SAT 99
[2023-08-28] MEDS: traZODone HCL 50 MG TABLET PO (20:22)
[2023-08-28] MEDS: Donepezil HCl 10 MG TABLET PO (20:22)
[2023-08-29 08:50] VITALS: BP 122/60; PULSE 82; RESP 18; TEMP 36.8; O2SAT 98
[2023-08-29] MEDS: Magnesium Oxide 400 MG TABLET PO ×2 (10:26→16:31)
[2023-08-29] MEDS: Atorvastatin Calcium 40 MG TABLET PO (10:26)
[2023-08-29] MEDS: Amphetamine Mixed Salts 10 MG TABLET PO ×2 (10:26→16:31)
[2023-08-29] MEDS: Empagliflozin 25 MG TABLET PO (10:26)
[2023-08-29] MEDS: Memantine HCl 10 MG TABLET PO ×2 (10:26→20:16)
[2023-08-29] MEDS: Famotidine 20 MG TABLET PO (10:26)
[2023-08-29] MEDS: Insulin Glargine,Hum.rec.anlog 100 UNIT/ML 10 ML VIAL 6 UNIT SUBCUT (10:27)
[2023-08-29] MEDS: metFORMIN HCl 1,000 MG TABLET 1000 MG PO ×2 (10:27→20:16)
[2023-08-29] MEDS: Sertraline HCL 100 MG TABLET PO (10:27)
--- NOTE | 2023-08-29 12:09 | P.PNPSI_ITS ---
Subjective Subjective Date of Service: 08/29/23 Reason For Visit: hallucinations confusion Subjective Notes: Conditional Voluntary Interim History: The nursing staff reported the patient had been compliant with treatment, no changes in her mental status. The delinquency prevention social worker reported the guardian is looking for his financial clearance. On interview the patient denies new symptoms, waiting for placement. Mental Status Exam Mental Status Exam Patient Appearance: Well Grooomed Patient Orientation: Person Level of Consciousness: Awake Patient Behavior: Cooperative and Passive Mood Description: Calm Affect Description: Constricted Patient Cognition Impaired: Yes Ability to Follow Directions: Good Speech Pattern: Clear Hallucinations: None Delusions: Not Present Thought Process: Distracted and Linear Thought Content: positive for [employer] and positive for Poverty of Content Judgement: Poor Diagnostics Vital Signs (24Hr): Vital Signs - 24 hr 08/28/23 19:40 08/29/23 08:50 Temperature 98.8 F 98.2 F Pulse Rate 84 82 Respiratory Rate 16 18 Blood Pressure 120/65 122/60 Pulse Oximetry 99 98 Oxygen Delivery Method Room Air Room Air BMI result Body Mass Index 26.4 Labs 07/03/23 18:16 08/24/23 07:52 Imaging Radiology Impressions: ITS Impressions Brain MRI 04/03/23 15:30 IMPRESSION: No acute infarct, mass lesion, intracranial hemorrhage, or evidence of hydrocephalus. Mild nonspecific T2/FLAIR hyperintensity in the cerebral white matter and danny presumably on the basis of chronic microangiopathy. Cervical Spine CT 07/03/23 20:12 IMPRESSION: No acute findings within the cervical spine. The cervical central canal is not well assessed on this CT due to artifact. If weakness persists, a cervical spine MRI would be more sensitive in assessment. Medications Medications Current Medications Acetaminophen (Acetaminophen 325 Mg Tablet) 650 mg PO Q6H PRN PRN Reason: Headache/Pain Mild Scale (1-3) Last Admin: 08/27/23 21:54 Dose: 650 mg Al Hydroxide/Mg Hydroxide (Magnesium Hydrox/Alum Hydrox 30 Ml Oral.Susp) 30 ml PO Q6H PRN PRN Reason: Heartburn/Nausea Amphetamine/Dextroamphetamine (Amphetamine Mixed Salts 10 Mg Tablet) 10 mg PO BID@0800,1700 [facility] Last Admin: 08/29/23 10:26 Dose: 10 mg Atorvastatin Calcium (Atorvastatin Calcium 40 Mg Tablet) 40 mg PO DAILY [facility] Last Admin: 08/29/23 10:26 Dose: 40 mg Donepezil HCl (Donepezil Hcl 10 Mg Tablet) 10 mg PO BEDTIME [facility] Last Admin: 08/28/23 20:22 Dose: 10 mg Empagliflozin (Empagliflozin 25 Mg Tablet) 25 mg PO DAILY [facility] Last Admin: 08/29/23 10:26 Dose: 25 mg Famotidine (Famotidine 20 Mg Tablet) 20 mg PO DAILY [facility] Last Admin: 08/29/23 10:26 Dose: 20 mg Ibuprofen (Ibuprofen 600 Mg Tablet) 600 mg PO Q6H PRN PRN Reason: pain not relieved by tylenol Last Admin: 08/07/23 21:10 Dose: 600 mg Insulin Glargine (Insulin Glargine,Hum.Rec.Anlog 100 Unit/Ml 10 Ml Vial) 6 unit SUBCUT DAILY [facility] Last Admin: 08/29/23 10:27 Dose: 6 unit Loperamide HCl (Loperamide Hcl 2 Mg Capsule) 2 mg PO Q6H PRN PRN Reason: Loose Stool Last Admin: 08/07/23 14:48 Dose: 2 mg Magnesium Hydroxide (Milk Of Magnesia 30 Ml Oral.Susp) 30 ml PO DAILY PRN PRN Reason: Constipation Magnesium Oxide (Magnesium [facility] 400 Mg Tablet) [facility] Last Admin: 08/29/23 10:26 Dose: 400 mg Memantine (Memantine Hcl 10 Mg Tablet) 10 mg PO BID [facility] Last Admin: 08/29/23 10:26 Dose: 10 mg Metformin HCl (Metformin Hcl 1,000 Mg Tablet) 1,000 mg PO BID [facility] Last Admin: 08/29/23 10:27 Dose: 1,000 mg Olanzapine (Olanzapine 2.5 Mg Tablet) 2.5 mg PO Q4H PRN PRN Reason: anxiety/agitation Last Admin: 08/22/23 21:09 Dose: 2.5 mg Sertraline HCl (Sertraline Hcl 100 Mg Tablet) 100 mg PO DAILY [facility] Last Admin: 08/29/23 10:27 Dose: 100 mg Trazodone HCl (Trazodone Hcl 50 Mg Tablet) 50 mg PO BEDTIME MRX1 PRN PRN Reason: Insomnia Last Admin: 08/28/23 20:22 Dose: 50 mg Allergies Allergies Allergy/AdvReac Type Severity Reaction Status Date / Time No Known Allergies Allergy Verified 03/23/23 18:13 Assessment & Plan Assessment & Plan (1) Alzheimer's dementia: Status: Acute Code(s): G30.9 - Alzheimer's disease, unspecified; F02.80 - Dementia in other diseases classified elsewhere, unspecified severity, without behavioral disturbance, psychotic disturbance, mood disturbance, and anxiety Assessment and Plan: August 24 58 years old woman with relative young age onset at Alzheimer dementia but overall clinical picture is affected by significant depression, which continues to be the predominant feature of for clinical picture. Conventional dementia medicines such as donepezil or memantine can be tried but usually do not make significant difference. I would suggest memantine 10 mg twice a day and donepezil 10 mg daily. Recently a new dementia at drug for Alzheimer was approved but only for relatively mild dementia or mild cognitive impairment type of patients. She would not qualify for that drug. 08/11 continue current treatment plan Plan 1. Continue same treatment. 2. Waiting for placement. 3. Lower Haldol to 1 mg p.o. q.h.s. on July 28. August 17 we discontinue Haldol at night. 4. August 18 we decided to add a low dose of Adderall 5 mg p.o. b.i.d. to target her hypoactivity. So far, had been a modest improvement of her hypoactive so we increase other up to 10 mg p.o. b.i.d. on August 24. Plan Continue plan of care Reason for continued inpatient stay Substantial Risk for: inability to function, rapid decompensation and med/psych decompensation Time Spent With Patient Time: Total time managing care of this patient today __20__ minutes.
[2023-08-29 20:10] VITALS: BP 145/69; PULSE 88; RESP 16; TEMP 36.7; O2SAT 98
[2023-08-29] MEDS: Donepezil HCl 10 MG TABLET PO (20:16)
[2023-08-29] MEDS: traZODone HCL 50 MG TABLET PO (20:16)
[2023-08-29] MEDS: Acetaminophen 325 MG TABLET 650 MG PO (22:42)
[2023-08-30 08:32] VITALS: BP 140/63; PULSE 65; RESP 16; TEMP 36.3; O2SAT 97
[2023-08-30] MEDS: metFORMIN HCl 1,000 MG TABLET 1000 MG PO ×2 (08:32→21:15)
[2023-08-30] MEDS: Atorvastatin Calcium 40 MG TABLET PO (08:33)
[2023-08-30] MEDS: Sertraline HCL 100 MG TABLET PO (08:33)
[2023-08-30] MEDS: Magnesium Oxide 400 MG TABLET PO ×2 (08:33→16:26)
[2023-08-30] MEDS: Memantine HCl 10 MG TABLET PO ×2 (08:33→21:15)
[2023-08-30] MEDS: Famotidine 20 MG TABLET PO (08:33)
[2023-08-30] MEDS: Amphetamine Mixed Salts 10 MG TABLET PO ×2 (08:33→16:26)
[2023-08-30] MEDS: Empagliflozin 25 MG TABLET PO (08:33)
[2023-08-30] MEDS: Insulin Glargine,Hum.rec.anlog 100 UNIT/ML 10 ML VIAL 6 UNIT SUBCUT (08:38)
--- NOTE | 2023-08-30 14:46 | MHC.CLN ---
F/U DIET=DIABETIC 1800 KCAL. ENSURE MAX PROTEIN TID PROVIDES 450 KCALS, 90 G PROTEIN. ATE 100% AT BREAKFAST AND LUNCH TODAY. FOLLOW WEEKLY FOR INTAKE AND WEIGHT.
--- NOTE | 2023-08-30 15:53 | P.PNPSI_ITS ---
Subjective Subjective Date of Service: 08/30/23 Reason For Visit: hallucinations confusion Interim History: Patient continues to relatively stable has shown improvement Medication Compliance: Yes Mental Status Exam Mental Status Exam Patient Appearance: Well Grooomed Patient Orientation: Person Level of Consciousness: Awake Patient Behavior: Cooperative and Passive Mood Description: Calm Affect Description: Constricted Patient Cognition Impaired: Yes Ability to Follow Directions: Good Speech Pattern: Clear Hallucinations: None Delusions: Not Present Thought Process: Distracted and Linear Thought Content: positive for [place] and positive for Poverty of Content Judgement: Poor Diagnostics Vital Signs (24Hr): Vital Signs - 24 hr 08/29/23 20:10 08/30/23 08:32 Temperature 98.0 F 97.4 F Pulse Rate 88 65 Respiratory Rate 16 16 Blood Pressure 145/69 H 140/63 H Pulse Oximetry 98 97 Oxygen Delivery Method Room Air Room Air BMI result Body Mass Index 26.4 Labs 07/03/23 18:16 08/24/23 07:52 Imaging Radiology Impressions: ITS Impressions Brain MRI 04/03/23 15:30 IMPRESSION: No acute infarct, mass lesion, intracranial hemorrhage, or evidence of hydrocephalus. Mild nonspecific T2/FLAIR hyperintensity in the cerebral white matter and danny presumably on the basis of chronic microangiopathy. Cervical Spine CT 07/03/23 20:12 IMPRESSION: No acute findings within the cervical spine. The cervical central canal is not well assessed on this CT due to artifact. If weakness persists, a cervical spine MRI would be more sensitive in assessment. Medications Medications Current Medications Acetaminophen (Acetaminophen 325 Mg Tablet) 650 mg PO Q6H PRN PRN Reason: Headache/Pain Mild Scale (1-3) Last Admin: 08/29/23 22:42 Dose: 650 mg Al Hydroxide/Mg Hydroxide (Magnesium Hydrox/Alum Hydrox 30 Ml Oral.Susp) 30 ml PO Q6H PRN PRN Reason: Heartburn/Nausea Amphetamine/Dextroamphetamine (Amphetamine Mixed Salts 10 Mg Tablet) 10 mg PO BID@0800,1700 [facility] Last Admin: 08/30/23 08:33 Dose: 10 mg Atorvastatin Calcium (Atorvastatin Calcium 40 Mg Tablet) 40 mg PO DAILY [facility] Last Admin: 08/30/23 08:33 Dose: 40 mg Donepezil HCl (Donepezil Hcl 10 Mg Tablet) 10 mg PO BEDTIME [facility] Last Admin: 08/29/23 20:16 Dose: 10 mg Empagliflozin (Empagliflozin 25 Mg Tablet) 25 mg PO DAILY [facility] Last Admin: 08/30/23 08:33 Dose: 25 mg Famotidine (Famotidine 20 Mg Tablet) 20 mg PO DAILY [facility] Last Admin: 08/30/23 08:33 Dose: 20 mg Ibuprofen (Ibuprofen 600 Mg Tablet) 600 mg PO Q6H PRN PRN Reason: pain not relieved by tylenol Last Admin: 08/07/23 21:10 Dose: 600 mg Insulin Glargine (Insulin Glargine,Hum.Rec.Anlog 100 Unit/Ml 10 Ml Vial) 6 unit SUBCUT DAILY [facility] Last Admin: 08/30/23 08:38 Dose: 6 unit Loperamide HCl (Loperamide Hcl 2 Mg Capsule) 2 mg PO Q6H PRN PRN Reason: Loose Stool Last Admin: 08/07/23 14:48 Dose: 2 mg Magnesium Hydroxide (Milk Of Magnesia 30 Ml Oral.Susp) 30 ml PO DAILY PRN PRN Reason: Constipation Magnesium Oxide (Magn[facility] 400 Mg Tablet) [facility] Last Admin: 08/30/23 08:33 Dose: 400 mg Memantine (Memantine Hcl 10 Mg Tablet) 10 mg PO BID [facility] Last Admin: 08/30/23 08:33 Dose: 10 mg Metformin HCl (Metformin Hcl 1,000 Mg Tablet) 1,000 mg PO BID [facility] Last Admin: 08/30/23 08:32 Dose: 1,000 mg Olanzapine (Olanzapine 2.5 Mg Tablet) 2.5 mg PO Q4H PRN PRN Reason: anxiety/agitation Last Admin: 08/22/23 21:09 Dose: 2.5 mg Sertraline HCl (Sertraline Hcl 100 Mg Tablet) 100 mg PO DAILY [facility] Last Admin: 08/30/23 08:33 Dose: 100 mg Trazodone HCl (Trazodone Hcl 50 Mg Tablet) 50 mg PO BEDTIME MRX1 PRN PRN Reason: Insomnia Last Admin: 08/29/23 20:16 Dose: 50 mg Allergies Allergies Allergy/AdvReac Type Severity Reaction Status Date / Time No Known Allergies Allergy Verified 03/23/23 18:13 Assessment & Plan Assessment & Plan (1) Alzheimer's dementia: Status: Acute Code(s): G30.9 - Alzheimer's disease, unspecified; F02.80 - Dementia in other diseases classified elsewhere, unspecified severity, without behavioral disturbance, psychotic disturbance, mood disturbance, and anxiety Assessment and Plan: August 24 58 years old woman with relative young age onset at Alzheimer dementia but overall clinical picture is affected by significant depression, which continues to be the predominant feature of for clinical picture. Conventional dementia medicines such as donepezil or memantine can be tried but usually do not make significant difference. I would suggest memantine 10 mg twice a day and donepezil 10 mg daily. Recently a new dementia at drug for Alzheimer was approved but only for relatively mild dementia or mild cognitive impairment type of patients. She would not qualify for that drug. 08/11 continue current treatment plan Plan 1. Continue same treatment. 2. Waiting for placement. 3. Lower Haldol to 1 mg p.o. q.h.s. on July 28. August 17 we discontinue Haldol at night. 4. August 18 we decided to add a low dose of Adderall 5 mg p.o. b.i.d. to target her hypoactivity. So far, had been a modest improvement of her hypoactive so we increase other up to 10 mg p.o. b.i.d. on August 24. Plan 08/30/2023 Continue plan of care discharge planning Reason for continued inpatient stay Substantial Risk for: med/psych decompensation Time Spent With Patient Time: Total time managing care of this patient today ____ minutes.
[2023-08-30 18:00] VITALS: BP 134/68; PULSE 86; RESP 16; TEMP 36.8; O2SAT 98
[2023-08-30] MEDS: traZODone HCL 50 MG TABLET PO (21:15)
[2023-08-30] MEDS: Ibuprofen 600 MG TABLET PO (21:15)
[2023-08-30] MEDS: Donepezil HCl 10 MG TABLET PO (21:16)
[2023-08-31 07:00] VITALS: BMI 26.2
[2023-08-31 08:00] VITALS: BP 124/71; PULSE 72; RESP 18; TEMP 36.7; O2SAT 96
[2023-08-31 08:10] LABS: Creatinine Clr Calc Pharmacy 94.9; Estimated Glomerular Filt Rate > 60
[2023-08-31] MEDS: Empagliflozin 25 MG TABLET PO (08:42)
[2023-08-31] MEDS: Insulin Glargine,Hum.rec.anlog 100 UNIT/ML 10 ML VIAL 6 UNIT SUBCUT (08:42)
[2023-08-31] MEDS: Magnesium Oxide 400 MG TABLET PO ×2 (08:42→17:01)
[2023-08-31] MEDS: metFORMIN HCl 1,000 MG TABLET 1000 MG PO ×2 (08:42→21:38)
[2023-08-31] MEDS: Memantine HCl 10 MG TABLET PO ×2 (08:42→21:38)
[2023-08-31] MEDS: Atorvastatin Calcium 40 MG TABLET PO (08:42)
[2023-08-31] MEDS: Famotidine 20 MG TABLET PO (08:42)
[2023-08-31] MEDS: Amphetamine Mixed Salts 10 MG TABLET PO ×2 (08:42→17:01)
[2023-08-31] MEDS: Sertraline HCL 100 MG TABLET PO (08:42)
--- NOTE | 2023-08-31 16:03 | P.PNPSI_ITS ---
Subjective Subjective Date of Service: 08/31/23 Reason For Visit: hallucinations confusion Subjective Notes: Conditional Voluntary Interim History: The nursing staff reported the patient had been slightly more brighter and active in the unit. On interview the patient denies new symptoms, waiting for placement. Mental Status Exam Mental Status Exam Patient Appearance: Appropriate Patient Orientation: Person and Situation Level of Consciousness: Awake and Appropriate Patient Behavior: Guarded and Passive Mood Description: Withdrawn Affect Description: Constricted Patient Cognition Impaired: Yes Ability to Follow Directions: Good Speech Pattern: Clear Hallucinations: None Delusions: Not Present Thought Process: Distracted and Slowed Thinking Thought Content: positive for [place] and positive for Circumstantial Judgement: Fair Diagnostics Vital Signs (24Hr): Vital Signs - 24 hr 08/30/23 18:00 08/31/23 08:00 Temperature 98.3 F 98.1 F Pulse Rate 86 72 Respiratory Rate 16 18 Blood Pressure 134/68 124/71 Pulse Oximetry 98 96 Oxygen Delivery Method Room Air Room Air BMI result Body Mass Index 26.2 Labs 07/03/23 18:16 08/31/23 07:43 Labs: Laboratory Results - last 48 hr 08/31/23 07:43 Creatinine 0.58 Estim Creat Clear Calc 94.9 Estimated GFR > 60 Imaging Radiology Impressions: ITS Impressions Brain MRI 04/03/23 15:30 IMPRESSION: No acute infarct, mass lesion, intracranial hemorrhage, or evidence of hydrocephalus. Mild nonspecific T2/FLAIR hyperintensity in the cerebral white matter and danny presumably on the basis of chronic microangiopathy. Cervical Spine CT 07/03/23 20:12 IMPRESSION: No acute findings within the cervical spine. The cervical central canal is not well assessed on this CT due to artifact. If weakness persists, a cervical spine MRI would be more sensitive in assessment. Medications Medications Current Medications Acetaminophen (Acetaminophen 325 Mg Tablet) 650 mg PO Q6H PRN PRN Reason: Headache/Pain Mild Scale (1-3) Last Admin: 08/29/23 22:42 Dose: 650 mg Al Hydroxide/Mg Hydroxide (Magnesium Hydrox/Alum Hydrox 30 Ml Oral.Susp) 30 ml PO Q6H PRN PRN Reason: Heartburn/Nausea Amphetamine/Dextroamphetamine (Amphetamine Mixed Salts 10 Mg Tablet) 10 mg PO BID@0800,1700 [facility] Last Admin: 08/31/23 08:42 Dose: 10 mg Atorvastatin Calcium (Atorvastatin Calcium 40 Mg Tablet) 40 mg PO DAILY [facility] Last Admin: 08/31/23 08:42 Dose: 40 mg Donepezil HCl (Donepezil Hcl 10 Mg Tablet) 10 mg PO BEDTIME [facility] Last Admin: 08/30/23 21:16 Dose: 10 mg Empagliflozin (Empagliflozin 25 Mg Tablet) 25 mg PO DAILY [facility] Last Admin: 08/31/23 08:42 Dose: 25 mg Famotidine (Famotidine 20 Mg Tablet) 20 mg PO DAILY [facility] Last Admin: 08/31/23 08:42 Dose: 20 mg Ibuprofen (Ibuprofen 600 Mg Tablet) 600 mg PO Q6H PRN PRN Reason: pain not relieved by tylenol Last Admin: 08/30/23 21:15 Dose: 600 mg Insulin Glargine (Insulin Glargine,Hum.Rec.Anlog 100 Unit/Ml 10 Ml Vial) 6 unit SUBCUT DAILY [facility] Last Admin: 08/31/23 08:42 Dose: 6 unit Loperamide HCl (Loperamide Hcl 2 Mg Capsule) 2 mg PO Q6H PRN PRN Reason: Loose Stool Last Admin: 08/07/23 14:48 Dose: 2 mg Magnesium Hydroxide (Milk Of Magnesia 30 Ml Oral.Susp) 30 ml PO DAILY PRN PRN Reason: Constipation Magnesium Oxide ([facility] 400 Mg [facility]t) [facility] Last Admin: 08/31/23 08:42 Dose: 400 mg Memantine (Memantine Hcl 10 Mg Tablet) 10 mg PO BID [facility] Last Admin: 08/31/23 08:42 Dose: 10 mg Metformin HCl (Metformin Hcl 1,000 Mg Tablet) 1,000 mg PO BID [facility] Last Admin: 08/31/23 08:42 Dose: 1,000 mg Olanzapine (Olanzapine 2.5 Mg Tablet) 2.5 mg PO Q4H PRN PRN Reason: anxiety/agitation Last Admin: 08/22/23 21:09 Dose: 2.5 mg Sertraline HCl (Sertraline Hcl 100 Mg Tablet) 100 mg PO DAILY [facility] Last Admin: 08/31/23 08:42 Dose: 100 mg Trazodone HCl (Trazodone Hcl 50 Mg Tablet) 50 mg PO BEDTIME MRX1 PRN PRN Reason: Insomnia Last Admin: 08/30/23 21:15 Dose: 50 mg Allergies Allergies Allergy/AdvReac Type Severity Reaction Status Date / Time No Known Allergies Allergy Verified 03/23/23 18:13 Assessment & Plan Assessment & Plan (1) Alzheimer's dementia: Status: Acute Code(s): G30.9 - Alzheimer's disease, unspecified; F02.80 - Dementia in other diseases classified elsewhere, unspecified severity, without behavioral disturbance, psychotic disturbance, mood disturbance, and anxiety Assessment and Plan: August 24 58 years old woman with relative young age onset at Alzheimer dementia but overall clinical picture is affected by significant depression, which continues to be the predominant feature of for clinical picture. Conventional dementia medicines such as donepezil or memantine can be tried but usually do not make significant difference. I would suggest memantine 10 mg twice a day and donepezil 10 mg daily. Recently a new dementia at drug for Alzheimer was approved but only for relatively mild dementia or mild cognitive impairment type of patients. She would not qualify for that drug. 08/11 continue current treatment plan Plan 1. Continue same treatment. 2. Waiting for placement. 3. Lower Haldol to 1 mg p.o. q.h.s. on July 28. August 17 we discontinue Haldol at night. 4. August 18 we decided to add a low dose of Adderall 5 mg p.o. b.i.d. to target her hypoactivity. So far, had been a modest improvement of her hypoactive so we increase other up to 10 mg p.o. b.i.d. on August 24. Plan Continue with same treatment, waiting for placement Reason for continued inpatient stay Substantial Risk for: inability to function, rapid decompensation and med/psych decompensation Time Spent With Patient Time: Total time managing care of this patient today __20__ minutes.
[2023-08-31 18:00] VITALS: BP 128/60; PULSE 82; RESP 16; TEMP 36.3; O2SAT 96
[2023-08-31] MEDS: Acetaminophen 325 MG TABLET 650 MG PO (21:38)
[2023-08-31] MEDS: Donepezil HCl 10 MG TABLET PO (21:39)
[2023-08-31] MEDS: traZODone HCL 50 MG TABLET PO (21:39)
[2023-09-01 06:00] VITALS: BP 126/59; PULSE 70; RESP 16; TEMP 36.1; O2SAT 98
[2023-09-01] MEDS: metFORMIN HCl 1,000 MG TABLET 1000 MG PO ×2 (08:27→21:50)
[2023-09-01] MEDS: Famotidine 20 MG TABLET PO (08:28)
[2023-09-01] MEDS: Magnesium Oxide 400 MG TABLET PO ×2 (08:28→16:55)
[2023-09-01] MEDS: Sertraline HCL 100 MG TABLET PO (08:28)
[2023-09-01] MEDS: Amphetamine Mixed Salts 10 MG TABLET PO ×2 (08:28→16:55)
[2023-09-01] MEDS: Memantine HCl 10 MG TABLET PO ×2 (08:28→21:49)
[2023-09-01] MEDS: Empagliflozin 25 MG TABLET PO (08:29)
[2023-09-01] MEDS: Insulin Glargine,Hum.rec.anlog 100 UNIT/ML 10 ML VIAL 6 UNIT SUBCUT (08:29)
[2023-09-01] MEDS: Atorvastatin Calcium 40 MG TABLET PO (08:29)
--- NOTE | 2023-09-01 11:59 | HO.PSYCHPN ---
Subjective Subjective Date of Service: 09/01/23 Reason For Visit: hallucinations confusion Subjective Notes: Conditional Voluntary Interim History: The nursing staff reported the patient had being brighter, still disoriented at times. On interview the patient denies new symptoms, waiting for placement. Mental Status Exam Mental Status Exam Patient Appearance: Appropriate Patient Orientation: Person Level of Consciousness: Awake Patient Behavior: Guarded and Passive Mood Description: Withdrawn Affect Description: Constricted Patient Cognition Impaired: Yes Ability to Follow Directions: Good Speech Pattern: Clear Hallucinations: None Delusions: Not Present Thought Process: Distracted and Linear Thought Content: positive for [place] and positive for Circumstantial Judgement: Poor Diagnostics Vital Signs (24Hr): Vital Signs - 24 hr 08/31/23 18:00 09/01/23 06:00 Temperature 97.4 F 97.0 F Pulse Rate 82 70 Respiratory Rate 16 16 Blood Pressure 128/60 126/59 L Pulse Oximetry 96 98 Oxygen Delivery Method Room Air Room Air BMI result Body Mass Index 26.2 Labs 07/03/23 18:16 08/31/23 07:43 Labs: Laboratory Results - last 48 hr 08/31/23 07:43 Creatinine 0.58 Estim Creat Clear Calc 94.9 Estimated GFR > 60 Imaging Radiology Impressions: ITS Impressions Brain MRI 04/03/23 15:30 IMPRESSION: No acute infarct, mass lesion, intracranial hemorrhage, or evidence of hydrocephalus. Mild nonspecific T2/FLAIR hyperintensity in the cerebral white matter and danny presumably on the basis of chronic microangiopathy. Cervical Spine CT 07/03/23 20:12 IMPRESSION: No acute findings within the cervical spine. The cervical central canal is not well assessed on this CT due to artifact. If weakness persists, a cervical spine MRI would be more sensitive in assessment. Medications Medications Current Medications Acetaminophen (Acetaminophen 325 Mg Tablet) 650 mg PO Q6H PRN PRN Reason: Headache/Pain Mild Scale (1-3) Last Admin: 08/31/23 21:38 Dose: 650 mg Al Hydroxide/Mg Hydroxide (Magnesium Hydrox/Alum Hydrox 30 Ml Oral.Susp) 30 ml PO Q6H PRN PRN Reason: Heartburn/Nausea Amphetamine/Dextroamphetamine (Amphetamine Mixed Salts 10 Mg Tablet) 10 mg PO BID@0800,1700 [facility] Last Admin: 09/01/23 08:28 Dose: 10 mg Atorvastatin Calcium (Atorvastatin Calcium 40 Mg Tablet) 40 mg PO DAILY [facility] Last Admin: 09/01/23 08:29 Dose: 40 mg Donepezil HCl (Donepezil Hcl 10 Mg Tablet) 10 mg PO BEDTIME [facility] Last Admin: 08/31/23 21:39 Dose: 10 mg Empagliflozin (Empagliflozin 25 Mg Tablet) 25 mg PO DAILY [facility] Last Admin: 09/01/23 08:29 Dose: 25 mg Famotidine (Famotidine 20 Mg Tablet) 20 mg PO DAILY [facility] Last Admin: 09/01/23 08:28 Dose: 20 mg Ibuprofen (Ibuprofen 600 Mg Tablet) 600 mg PO Q6H PRN PRN Reason: pain not relieved by tylenol Last Admin: 08/30/23 21:15 Dose: 600 mg Insulin Glargine (Insulin Glargine,Hum.Rec.Anlog 100 Unit/Ml 10 Ml Vial) 6 unit SUBCUT DAILY [facility] Last Admin: 09/01/23 08:29 Dose: 6 unit Loperamide HCl (Loperamide Hcl 2 Mg Capsule) 2 mg PO Q6H PRN PRN Reason: Loose Stool Last Admin: 08/07/23 14:48 Dose: 2 mg Magnesium Hydroxide (Milk Of Magnesia 30 Ml Oral.Susp) 30 ml PO DAILY PRN PRN Reason: Constipation Magnesium Oxide ([facility] 400 Mg Tablet) [facility] Last Admin: 09/01/23 08:28 Dose: 400 mg Memantine (Memantine Hcl 10 Mg Tablet) 10 mg PO BID [facility] Last Admin: 09/01/23 08:28 Dose: 10 mg Metformin HCl (Metformin Hcl 1,000 Mg Tablet) 1,000 mg PO BID [facility] Last Admin: 09/01/23 08:27 Dose: 1,000 mg Olanzapine (Olanzapine 2.5 Mg Tablet) 2.5 mg PO Q4H PRN PRN Reason: anxiety/agitation Last Admin: 08/22/23 21:09 Dose: 2.5 mg Sertraline HCl (Sertraline Hcl 100 Mg Tablet) 100 mg PO DAILY [facility] Last Admin: 09/01/23 08:28 Dose: 100 mg Trazodone HCl (Trazodone Hcl 50 Mg Tablet) 50 mg PO BEDTIME MRX1 PRN PRN Reason: Insomnia Last Admin: 08/31/23 21:39 Dose: 50 mg Allergies Allergies Allergy/AdvReac Type Severity Reaction Status Date / Time No Known Allergies Allergy Verified 03/23/23 18:13 Assessment & Plan Assessment & Plan (1) Alzheimer's dementia: Status: Acute Code(s): G30.9 - Alzheimer's disease, unspecified; F02.80 - Dementia in other diseases classified elsewhere, unspecified severity, without behavioral disturbance, psychotic disturbance, mood disturbance, and anxiety Assessment and Plan: August 24 58 years old woman with relative young age onset at Alzheimer dementia but overall clinical picture is affected by significant depression, which continues to be the predominant feature of for clinical picture. Conventional dementia medicines such as donepezil or memantine can be tried but usually do not make significant difference. I would suggest memantine 10 mg twice a day and donepezil 10 mg daily. Recently a new dementia at drug for Alzheimer was approved but only for relatively mild dementia or mild cognitive impairment type of patients. She would not qualify for that drug. 08/11 continue current treatment plan Plan 1. Continue same treatment. 2. Waiting for placement. 3. Lower Haldol to 1 mg p.o. q.h.s. on July 28. August 17 we discontinue Haldol at night. 4. August 18 we decided to add a low dose of Adderall 5 mg p.o. b.i.d. to target her hypoactivity. So far, had been a modest improvement of her hypoactive so we increase other up to 10 mg p.o. b.i.d. on August 24. Plan Continue with same treatment, waiting for placement Reason for continued inpatient stay Substantial Risk for: inability to function, rapid decompensation and med/psych decompensation Time Spent With Patient Time: Total time managing care of this patient today __20__ minutes.
[2023-09-01 18:00] VITALS: BP 133/78; PULSE 85; RESP 18; TEMP 36.1; O2SAT 99
[2023-09-01] MEDS: Donepezil HCl 10 MG TABLET PO (21:50)
[2023-09-01] MEDS: traZODone HCL 50 MG TABLET PO (21:50)
[2023-09-02 08:00] VITALS: BP 132/78; PULSE 82; RESP 18; TEMP 36.6; O2SAT 98
[2023-09-02] MEDS: Empagliflozin 25 MG TABLET PO (09:36)
[2023-09-02] MEDS: Insulin Glargine,Hum.rec.anlog 100 UNIT/ML 10 ML VIAL 6 UNIT SUBCUT (09:36)
[2023-09-02] MEDS: Amphetamine Mixed Salts 10 MG TABLET PO ×2 (09:36→16:40)
[2023-09-02] MEDS: Memantine HCl 10 MG TABLET PO ×2 (09:36→21:45)
[2023-09-02] MEDS: Famotidine 20 MG TABLET PO (09:36)
[2023-09-02] MEDS: Magnesium Oxide 400 MG TABLET PO ×2 (09:37→16:40)
[2023-09-02] MEDS: Sertraline HCL 100 MG TABLET PO (09:37)
[2023-09-02] MEDS: Atorvastatin Calcium 40 MG TABLET PO (09:37)
[2023-09-02] MEDS: metFORMIN HCl 1,000 MG TABLET 1000 MG PO ×2 (09:37→21:45)
--- NOTE | 2023-09-02 12:02 | P.PNPSI_ITS ---
Subjective Subjective Date of Service: 09/02/23 Reason For Visit: hallucinations confusion Subjective Notes: Conditional Voluntary Interim History: Patient was seen and discussed in rounds today. Records and plans were reviewed. She has been doing a little better and has been a little brighter. She is eating and sleeping adequately. Says pacing and wandering. No changes were made today Review of Systems Review of Systems Yes Unobtainable due to mental status Mental Status Exam Mental Status Exam Patient Appearance: Appropriate Patient Orientation: Person Level of Consciousness: Awake Patient Behavior: Guarded and Passive Mood Description: Withdrawn Affect Description: Constricted Patient Cognition Impaired: Yes Ability to Follow Directions: Good Speech Pattern: Clear Hallucinations: None Delusions: Not Present Thought Process: Distracted and Linear Thought Content: positive for [place] and positive for Circumstantial Judgement: Poor Diagnostics Vital Signs (24Hr): Vital Signs - 24 hr 09/01/23 18:00 09/02/23 08:00 Temperature 96.9 F 97.9 F Pulse Rate 85 82 Respiratory Rate 18 18 Blood Pressure 133/78 132/78 Pulse Oximetry 99 98 Oxygen Delivery Method Room Air Room Air BMI result Body Mass Index 26.2 Labs 07/03/23 18:16 08/31/23 07:43 Imaging Radiology Impressions: ITS Impressions Brain MRI 04/03/23 15:30 IMPRESSION: No acute infarct, mass lesion, intracranial hemorrhage, or evidence of hydrocephalus. Mild nonspecific T2/FLAIR hyperintensity in the cerebral white matter and danny presumably on the basis of chronic microangiopathy. Cervical Spine CT 07/03/23 20:12 IMPRESSION: No acute findings within the cervical spine. The cervical central canal is not well assessed on this CT due to artifact. If weakness persists, a cervical spine MRI would be more sensitive in assessment. Medications Medications Current Medications Acetaminophen (Acetaminophen 325 Mg Tablet) 650 mg PO Q6H PRN PRN Reason: Headache/Pain Mild Scale (1-3) Last Admin: 08/31/23 21:38 Dose: 650 mg Al Hydroxide/Mg Hydroxide (Magnesium Hydrox/Alum Hydrox 30 Ml Oral.Susp) 30 ml PO Q6H PRN PRN Reason: Heartburn/Nausea Amphetamine/Dextroamphetamine (Amphetamine Mixed Salts 10 Mg Tablet) 10 mg PO BID@0800,1700 [facility] Last Admin: 09/02/23 09:36 Dose: 10 mg Atorvastatin Calcium (Atorvastatin Calcium 40 Mg Tablet) 40 mg PO DAILY [facility] Last Admin: 09/02/23 09:37 Dose: 40 mg Donepezil HCl (Donepezil Hcl 10 Mg Tablet) 10 mg PO BEDTIME [facility] Last Admin: 09/01/23 21:50 Dose: 10 mg Empagliflozin (Empagliflozin 25 Mg Tablet) 25 mg PO DAILY [facility] Last Admin: 09/02/23 09:36 Dose: 25 mg Famotidine (Famotidine 20 Mg Tablet) 20 mg PO DAILY [facility] Last Admin: 09/02/23 09:36 Dose: 20 mg Ibuprofen (Ibuprofen 600 Mg Tablet) 600 mg PO Q6H PRN PRN Reason: pain not relieved by tylenol Last Admin: 08/30/23 21:15 Dose: 600 mg Insulin Glargine (Insulin Glargine,Hum.Rec.Anlog 100 Unit/Ml 10 Ml Vial) 6 unit SUBCUT DAILY [facility] Last Admin: 09/02/23 09:36 Dose: 6 unit Loperamide HCl (Loperamide Hcl 2 Mg Capsule) 2 mg PO Q6H PRN PRN Reason: Loose Stool Last Admin: 08/07/23 14:48 Dose: 2 mg Magnesium Hydroxide (Milk Of Magnesia 30 Ml Oral.Susp) 30 ml PO DAILY PRN PRN Reason: Constipation Magn[facility] ([facility] 400 Mg Tablet) [facility] Last Admin: 09/02/23 09:37 Dose: 400 mg Memantine (Memantine Hcl 10 Mg Tablet) 10 mg PO BID [facility] Last Admin: 09/02/23 09:36 Dose: 10 mg Metformin HCl (Metformin Hcl 1,000 Mg Tablet) 1,000 mg PO BID [facility] Last Admin: 09/02/23 09:37 Dose: 1,000 mg Olanzapine (Olanzapine 2.5 Mg Tablet) 2.5 mg PO Q4H PRN PRN Reason: anxiety/agitation Last Admin: 08/22/23 21:09 Dose: 2.5 mg Sertraline HCl (Sertraline Hcl 100 Mg Tablet) 100 mg PO DAILY [facility] Last Admin: 09/02/23 09:37 Dose: 100 mg Trazodone HCl (Trazodone Hcl 50 Mg Tablet) 50 mg PO BEDTIME MRX1 PRN PRN Reason: Insomnia Last Admin: 09/01/23 21:50 Dose: 50 mg Allergies Allergies Allergy/AdvReac Type Severity Reaction Status Date / Time No Known Allergies Allergy Verified 03/23/23 18:13 Assessment & Plan Assessment & Plan (1) Alzheimer's dementia: Status: Acute Code(s): G30.9 - Alzheimer's disease, unspecified; F02.80 - Dementia in other diseases classified elsewhere, unspecified severity, without behavioral disturbance, psychotic disturbance, mood disturbance, and anxiety Assessment and Plan: August 24 58 years old woman with relative young age onset at Alzheimer dementia but overall clinical picture is affected by significant depression, which continues to be the predominant feature of for clinical picture. Conventional dementia medicines such as donepezil or memantine can be tried but usually do not make significant difference. I would suggest memantine 10 mg twice a day and donepezil 10 mg daily. Recently a new dementia at drug for Alzheimer was approved but only for relatively mild dementia or mild cognitive impairment type of patients. She would not qualify for that drug. 08/11 continue current treatment plan Plan 1. Continue same treatment. 2. Waiting for placement. 3. Lower Haldol to 1 mg p.o. q.h.s. on July 28. August 17 we discontinue Haldol at night. 4. August 18 we decided to add a low dose of Adderall 5 mg p.o. b.i.d. to target her hypoactivity. So far, had been a modest improvement of her hypoactive so we increase other up to 10 mg p.o. b.i.d. on August 24. 09/02: Continue current plans and regimen Plan Continue with same treatment, waiting for placement Reason for continued inpatient stay Substantial Risk for: inability to function Time Spent With Patient Time: Total time managing care of this patient today ____ minutes.
[2023-09-02 18:00] VITALS: BP 141/68; PULSE 77; RESP 18; TEMP 36.6; O2SAT 99
[2023-09-02] MEDS: traZODone HCL 50 MG TABLET PO (21:44)
[2023-09-02] MEDS: Ibuprofen 600 MG TABLET PO (21:44)
[2023-09-02] MEDS: Donepezil HCl 10 MG TABLET PO (21:45)
[2023-09-03 08:29] VITALS: BP 130/71; PULSE 72; RESP 16; TEMP 37.3; O2SAT 97
[2023-09-03] MEDS: Insulin Glargine,Hum.rec.anlog 100 UNIT/ML 10 ML VIAL 6 UNIT SUBCUT (08:30)
[2023-09-03] MEDS: Memantine HCl 10 MG TABLET PO ×2 (08:31→20:53)
[2023-09-03] MEDS: Empagliflozin 25 MG TABLET PO (08:31)
[2023-09-03] MEDS: Atorvastatin Calcium 40 MG TABLET PO (08:31)
[2023-09-03] MEDS: Magnesium Oxide 400 MG TABLET PO ×2 (08:31→17:17)
[2023-09-03] MEDS: Sertraline HCL 100 MG TABLET PO (08:31)
[2023-09-03] MEDS: metFORMIN HCl 1,000 MG TABLET 1000 MG PO ×2 (08:31→20:53)
[2023-09-03] MEDS: Amphetamine Mixed Salts 10 MG TABLET PO ×2 (08:31→17:17)
[2023-09-03] MEDS: Famotidine 20 MG TABLET PO (08:31)
--- NOTE | 2023-09-03 10:13 | HO.PSYCHPN ---
Subjective Subjective Date of Service: 09/03/23 Reason For Visit: hallucinations confusion Subjective Notes: Conditional Voluntary Interim History: Patient was seen and discussed in rounds today. Records and plans were reviewed. She continues to be doing a little better specially since the addition of Adderall. She is not to interactive. Eating and sleeping adequately. No complaints and side effects reported. No changes were made today Review of Systems Review of Systems Yes Unobtainable due to mental status Mental Status Exam Mental Status Exam Patient Appearance: Appropriate Patient Orientation: Person Level of Consciousness: Awake Patient Behavior: Guarded and Passive Mood Description: Withdrawn Affect Description: Constricted Patient Cognition Impaired: Yes Ability to Follow Directions: Good Speech Pattern: Clear Hallucinations: None Delusions: Not Present Thought Process: Distracted and Linear Thought Content: positive for [place] and positive for Circumstantial Judgement: Poor Diagnostics Vital Signs (24Hr): Vital Signs - 24 hr 09/02/23 18:00 09/03/23 08:29 Temperature 97.9 F 99.1 F Pulse Rate 77 72 Respiratory Rate 18 16 Blood Pressure 141/68 H 130/71 Pulse Oximetry 99 97 Oxygen Delivery Method Room Air Room Air BMI result Body Mass Index 26.2 Labs 07/03/23 18:16 08/31/23 07:43 Imaging Radiology Impressions: ITS Impressions Brain MRI 04/03/23 15:30 IMPRESSION: No acute infarct, mass lesion, intracranial hemorrhage, or evidence of hydrocephalus. Mild nonspecific T2/FLAIR hyperintensity in the cerebral white matter and danny presumably on the basis of chronic microangiopathy. Cervical Spine CT 07/03/23 20:12 IMPRESSION: No acute findings within the cervical spine. The cervical central canal is not well assessed on this CT due to artifact. If weakness persists, a cervical spine MRI would be more sensitive in assessment. Medications Medications Current Medications Acetaminophen (Acetaminophen 325 Mg Tablet) 650 mg PO Q6H PRN PRN Reason: Headache/Pain Mild Scale (1-3) Last Admin: 08/31/23 21:38 Dose: 650 mg Al Hydroxide/Mg Hydroxide (Magnesium Hydrox/Alum Hydrox 30 Ml Oral.Susp) 30 ml PO Q6H PRN PRN Reason: Heartburn/Nausea Amphetamine/Dextroamphetamine (Amphetamine Mixed Salts 10 Mg Tablet) 10 mg PO BID@0800,1700 [facility] Last Admin: 09/03/23 08:31 Dose: 10 mg Atorvastatin Calcium (Atorvastatin Calcium 40 Mg Tablet) 40 mg PO DAILY [facility] Last Admin: 09/03/23 08:31 Dose: 40 mg Donepezil HCl (Donepezil Hcl 10 Mg Tablet) 10 mg PO BEDTIME [facility] Last Admin: 09/02/23 21:45 Dose: 10 mg Empagliflozin (Empagliflozin 25 Mg Tablet) 25 mg PO DAILY [facility] Last Admin: 09/03/23 08:31 Dose: 25 mg Famotidine (Famotidine 20 Mg Tablet) 20 mg PO DAILY [facility] Last Admin: 09/03/23 08:31 Dose: 20 mg Ibuprofen (Ibuprofen 600 Mg Tablet) 600 mg PO Q6H PRN PRN Reason: pain not relieved by tylenol Last Admin: 09/02/23 21:44 Dose: 600 mg Insulin Glargine (Insulin Glargine,Hum.Rec.Anlog 100 Unit/Ml 10 Ml Vial) 6 unit SUBCUT DAILY [facility] Last Admin: 09/03/23 08:30 Dose: 6 unit Loperamide HCl (Loperamide Hcl 2 Mg Capsule) 2 mg PO Q6H PRN PRN Reason: Loose Stool Last Admin: 08/07/23 14:48 Dose: 2 mg Magnesium Hydroxide (Milk Of Magnesia 30 Ml Oral.Susp) 30 ml PO DAILY PRN PRN Reason: Constipation Magnesium Oxide (Magnesium Oxide 400 Mg Tablet) [facility] Last Admin: 09/03/23 08:31 Dose: 400 mg Memantine (Memantine Hcl 10 Mg Tablet) 10 mg PO BID [facility] Last Admin: 09/03/23 08:31 Dose: 10 mg Metformin HCl (Metformin Hcl 1,000 Mg Tablet) 1,000 mg PO BID [facility] Last Admin: 09/03/23 08:31 Dose: 1,000 mg Olanzapine (Olanzapine 2.5 Mg Tablet) 2.5 mg PO Q4H PRN PRN Reason: anxiety/agitation Last Admin: 08/22/23 21:09 Dose: 2.5 mg Sertraline HCl (Sertraline Hcl 100 Mg Tablet) 100 mg PO DAILY [facility] Last Admin: 09/03/23 08:31 Dose: 100 mg Trazodone HCl (Trazodone Hcl 50 Mg Tablet) 50 mg PO BEDTIME MRX1 PRN PRN Reason: Insomnia Last Admin: 09/02/23 21:44 Dose: 50 mg Allergies Allergies Allergy/AdvReac Type Severity Reaction Status Date / Time No Known Allergies Allergy Verified 03/23/23 18:13 Assessment & Plan Assessment & Plan (1) Alzheimer's dementia: Status: Acute Code(s): G30.9 - Alzheimer's disease, unspecified; F02.80 - Dementia in other diseases classified elsewhere, unspecified severity, without behavioral disturbance, psychotic disturbance, mood disturbance, and anxiety Assessment and Plan: August 24 58 years old woman with relative young age onset at Alzheimer dementia but overall clinical picture is affected by significant depression, which continues to be the predominant feature of for clinical picture. Conventional dementia medicines such as donepezil or memantine can be tried but usually do not make significant difference. I would suggest memantine 10 mg twice a day and donepezil 10 mg daily. Recently a new dementia at drug for Alzheimer was approved but only for relatively mild dementia or mild cognitive impairment type of patients. She would not qualify for that drug. 08/11 continue current treatment plan Plan 1. Continue same treatment. 2. Waiting for placement. 3. Lower Haldol to 1 mg p.o. q.h.s. on July 28. August 17 we discontinue Haldol at night. 4. August 18 we decided to add a low dose of Adderall 5 mg p.o. b.i.d. to target her hypoactivity. So far, had been a modest improvement of her hypoactive so we increase other up to 10 mg p.o. b.i.d. on August 24. 09/02: Continue current plans and regimen Plan Continue with same treatment, waiting for placement Reason for continued inpatient stay Substantial Risk for: inability to function Time Spent With Patient Time: Total time managing care of this patient today ____ minutes.
[2023-09-03 18:00] VITALS: BP 135/63; PULSE 80; RESP 18; TEMP 36.3; O2SAT 98
[2023-09-03] MEDS: Donepezil HCl 10 MG TABLET PO (20:53)
[2023-09-03] MEDS: traZODone HCL 50 MG TABLET PO (20:53)
[2023-09-04] MEDS: OLANZapine 2.5 MG TABLET PO (00:20)
[2023-09-04 06:00] VITALS: BP 124/76; PULSE 74; RESP 16; TEMP 36.4; O2SAT 97
[2023-09-04 07:56] LABS: MANUAL DIFF FLAG NO
[2023-09-04 08:02] LABS: Basophils Percent Auto 0.3 % (0-2); Eosinophils Absolute Auto 0.2 X10*3/uL (0.0-0.4); Eosinophils Percent Auto 2.7 % (0-4); Hematocrit 42.5 % (37.0-47.0); Hemoglobin 13.3 g/dl (12.0-16.0); Imm Gran Abs Auto 0.02 X10*3/uL (0.00-0.03); Imm Gran Pct Auto 0.3 % (0.0-0.4); Lymphocytes Percent Auto 28.1 % (20-40); Mean Corpuscular HGB Conc 31.3 g/dl (31.0-35.0); Mean Corpuscular Hemoglobin 26.4 pg (27.0-33.0); Mean Corpuscular Volume 84.3 fL (80.0-98.0); Mean Platelet Volume 9.9 fL (9.4-12.3); Monocytes Absolute Auto 0.5 X10*3/uL (0.1-1.2); Monocytes Percent Auto 6.8 % (2-11); Neutrophils Absolute Auto 4.3 x10*3/uL (2.0-8.3); Neutrophils Percent Auto 61.8 % (45-73); Platelet Count 307 X10*3/uL (160-400); Red Blood Count 5.04 X10*6/uL (4.20-5.50); Red Cell Distribution Width 13.7 % (11.0-16.0)
[2023-09-04] MEDS: Insulin Glargine,Hum.rec.anlog 100 UNIT/ML 10 ML VIAL 6 UNIT SUBCUT (08:16)
[2023-09-04] MEDS: metFORMIN HCl 1,000 MG TABLET 1000 MG PO ×2 (08:17→21:36)
[2023-09-04] MEDS: Famotidine 20 MG TABLET PO (08:17)
[2023-09-04] MEDS: Empagliflozin 25 MG TABLET PO (08:17)
[2023-09-04] MEDS: Memantine HCl 10 MG TABLET PO ×2 (08:17→21:36)
[2023-09-04] MEDS: Sertraline HCL 100 MG TABLET PO (08:17)
[2023-09-04] MEDS: Magnesium Oxide 400 MG TABLET PO ×2 (08:17→16:52)
[2023-09-04] MEDS: Amphetamine Mixed Salts 10 MG TABLET PO ×2 (08:17→16:52)
[2023-09-04] MEDS: Atorvastatin Calcium 40 MG TABLET PO (08:17)
[2023-09-04 08:22] LABS: Alanine Aminotransferase 19 U/L (0-31); Alkaline Phosphatase 83 U/L (39-117); Anion Gap 14 (12-20); Aspartate Amino Transferase 22 U/L (5-31); Bilirubin Direct 0.1 mg/dL (0.0-0.5); Bilirubin Total 0.4 mg/dL (0.0-1.0); Blood Urea Nitrogen 15 mg/dL (9-16); Calcium 10.3 mg/dL (8.4-10.2); Carbon Dioxide 27 mmol/L (22-29); Chloride 106 mmol/L (96-108); Estimated Glomerular Filt Rate > 60; Glucose Random 101 mg/dL (60-115); Potassium 3.7 mmol/L (3.3-5.1); Sodium 143 mmol/L (135-145); Total Protein 6.5 g/dL (6.5-8.0)
[2023-09-04 08:29] LABS: Estimated Average Glucose 120 mg/dL; Hemoglobin A1c % 5.8 % (<6.0)
[2023-09-04 08:36] LABS: Thyroid Stimulating Hormone 2.24 uIU/mL (0.32-4.0)
--- NOTE | 2023-09-04 11:50 | P.PNPSI_ITS ---
Subjective Subjective Date of Service: 09/04/23 Reason For Visit: hallucinations confusion Subjective Notes: Conditional Voluntary Interim History: the nursing staff reported the patient had been compliant with treatment, no changes in her mental status. On interview the patient denies new symptoms, waiting for placement. Mental Status Exam Mental Status Exam Patient Appearance: Well Grooomed and Appropriate Patient Orientation: Person and Situation Level of Consciousness: Awake and Appropriate Patient Behavior: Guarded and Passive Mood Description: Withdrawn Affect Description: Constricted Patient Cognition Impaired: Yes Ability to Follow Directions: Good Speech Pattern: Clear Hallucinations: None Delusions: Not Present Thought Process: Linear Thought Content: positive for Circumstantial Judgement: Fair Diagnostics Vital Signs (24Hr): Vital Signs - 24 hr 09/03/23 18:00 09/04/23 06:00 Temperature 97.4 F 97.6 F Pulse Rate 80 74 Respiratory Rate 18 16 Blood Pressure 135/63 124/76 Pulse Oximetry 98 97 Oxygen Delivery Method Room Air Room Air BMI result Body Mass Index 26.2 Labs 09/04/23 07:52 09/04/23 07:52 Labs: Laboratory Results - last 48 hr 09/04/23 07:52 WBC 7.0 RBC 5.04 Hgb 13.3 Hct 42.5 MCV 84.3 MCH 26.4 L MCHC 31.3 RDW 13.7 Plt Count 307 MPV 9.9 Immature Gran % (Auto) 0.3 Neut % (Auto) 61.8 Lymph % (Auto) 28.1 [place] % (Auto) 6.8 Eos % (Auto) 2.7 Baso % (Auto) 0.3 Lymph # (Auto) 2.0 [place] # (Auto) 0.5 Eos # (Auto) 0.2 Baso # (Auto) 0.0 Abs Immat Gran (auto) 0.02 Absolute Neuts (auto) 4.3 Absolute Nucleated RBC 0.000 Nucleated RBC % (auto) 0.0 Sodium 143 Potassium 3.7 Chloride 106 Carbon Dioxide 27 Anion Gap 14 BUN 15 Creatinine 0.61 Estim Creat Clear Calc 90.0 Estimated GFR > 60 Random Glucose 101 Estimat Average Glucose 120 Hemoglobin A1c % 5.8 Calcium 10.3 H D Total Bilirubin 0.4 Direct Bilirubin 0.1 AST 22 ALT 19 Alkaline Phosphatase 83 Total Protein 6.5 Albumin 4.0 TSH 2.24 Imaging Radiology Impressions: ITS Impressions Brain MRI 04/03/23 15:30 IMPRESSION: No acute infarct, mass lesion, intracranial hemorrhage, or evidence of hydrocephalus. Mild nonspecific T2/FLAIR hyperintensity in the cerebral white matter and danny presumably on the basis of chronic microangiopathy. Cervical Spine CT 07/03/23 20:12 IMPRESSION: No acute findings within the cervical spine. The cervical central canal is not well assessed on this CT due to artifact. If weakness persists, a cervical spine MRI would be more sensitive in assessment. Medications Medications Current Medications Acetaminophen (Acetaminophen 325 Mg Tablet) 650 mg PO Q6H PRN PRN Reason: Headache/Pain Mild Scale (1-3) Last Admin: 08/31/23 21:38 Dose: 650 mg Al Hydroxide/Mg Hydroxide (Magnesium Hydrox/Alum Hydrox 30 Ml Oral.Susp) 30 ml PO Q6H PRN PRN Reason: Heartburn/Nausea Amphetamine/Dextroamphetamine (Amphetamine Mixed Salts 10 Mg Tablet) 10 mg PO BID@0800,1700 [facility] Last Admin: 09/04/23 08:17 Dose: 10 mg Atorvastatin Calcium (Atorvastatin Calcium 40 Mg Tablet) 40 mg PO DAILY [facility] Last Admin: 09/04/23 08:17 Dose: 40 mg Donepezil HCl (Donepezil Hcl 10 Mg Tablet) 10 mg PO BEDTIME [facility] Last Admin: 09/03/23 20:53 Dose: 10 mg Empagliflozin (Empagliflozin 25 Mg Tablet) 25 mg PO DAILY [facility] Last Admin: 09/04/23 08:17 Dose: 25 mg Famotidine (Famotidine 20 Mg Tablet) 20 mg PO DAILY [facility] Last Admin: 09/04/23 08:17 Dose: 20 mg Ibuprofen (Ibuprofen 600 Mg Tablet) 600 mg PO Q6H PRN PRN Reason: pain not relieved by tylenol Last Admin: 09/02/23 21:44 Dose: 600 mg Insulin Glargine (Insulin Glargine,Hum.Rec.Anlog 100 Unit/Ml 10 Ml Vial) 6 unit SUBCUT DAILY [facility] Last Admin: 09/04/23 08:16 Dose: 6 unit Loperamide HCl (Loperamide Hcl 2 Mg Capsule) 2 mg PO Q6H PRN PRN Reason: Loose Stool Last Admin: 08/07/23 14:48 Dose: 2 mg Magnesium Hydroxide (Milk Of Magnesia 30 Ml Oral.Susp) 30 ml PO DAILY PRN PRN Reason: Constipation Magnesium Oxide ([facility]esium Oxide 400 Mg Tablet) [facility] Last Admin: 09/04/23 08:17 Dose: 400 mg Memantine (Memantine Hcl 10 Mg Tablet) 10 mg PO BID [facility] Last Admin: 09/04/23 08:17 Dose: 10 mg Metformin HCl (Metformin Hcl 1,000 Mg Tablet) 1,000 mg PO BID [facility] Last Admin: 09/04/23 08:17 Dose: 1,000 mg Olanzapine (Olanzapine 2.5 Mg Tablet) 2.5 mg PO Q4H PRN PRN Reason: anxiety/agitation Last Admin: 09/04/23 00:20 Dose: 2.5 mg Sertraline HCl (Sertraline Hcl 100 Mg Tablet) 100 mg PO DAILY [facility] Last Admin: 09/04/23 08:17 Dose: 100 mg Trazodone HCl (Trazodone Hcl 50 Mg Tablet) 50 mg PO BEDTIME MRX1 PRN PRN Reason: Insomnia Last Admin: 09/03/23 20:53 Dose: 50 mg Allergies Allergies Allergy/AdvReac Type Severity Reaction Status Date / Time No Known Allergies Allergy Verified 03/23/23 18:13 Assessment & Plan Assessment & Plan (1) Alzheimer's dementia: Status: Acute Code(s): G30.9 - Alzheimer's disease, unspecified; F02.80 - Dementia in other diseases classified elsewhere, unspecified severity, without behavioral disturbance, psychotic disturbance, mood disturbance, and anxiety Assessment and Plan: August 24 58 years old woman with relative young age onset at Alzheimer dementia but overall clinical picture is affected by significant depression, which continues to be the predominant feature of for clinical picture. Conventional dementia medicines such as donepezil or memantine can be tried but usually do not make significant difference. I would suggest memantine 10 mg twice a day and donepezil 10 mg daily. Recently a new dementia at drug for Alzheimer was approved but only for relatively mild dementia or mild cognitive impairment type of patients. She would not qualify for that drug. 08/11 continue current treatment plan Plan 1. Continue same treatment. 2. Waiting for placement. 3. Lower Haldol to 1 mg p.o. q.h.s. on July 28. August 17 we discontinue Haldol at night. 4. August 18 we decided to add a low dose of Adderall 5 mg p.o. b.i.d. to target her hypoactivity. So far, had been a modest improvement of her hypoactive so we increase other up to 10 mg p.o. b.i.d. on August 24. Plan Continue with same treatment, waiting for placement Reason for continued inpatient stay Substantial Risk for: inability to function, rapid decompensation and med/psych decompensation Time Spent With Patient Time: Total time managing care of this patient today __20__ minutes.
[2023-09-04 18:00] VITALS: BP 121/72; PULSE 83; RESP 16; TEMP 36.3; O2SAT 98
[2023-09-04] MEDS: traZODone HCL 50 MG TABLET PO (21:37)
[2023-09-04] MEDS: Donepezil HCl 10 MG TABLET PO (21:37)
[2023-09-05 06:00] VITALS: BP 133/66; PULSE 66; RESP 18; TEMP 36.3; O2SAT 98
[2023-09-05 08:15] LABS: Creatinine Clr Calc Pharmacy 91.5; Estimated Glomerular Filt Rate > 60
[2023-09-05] MEDS: metFORMIN HCl 1,000 MG TABLET 1000 MG PO ×2 (08:35→22:04)
[2023-09-05] MEDS: Sertraline HCL 100 MG TABLET PO (08:35)
[2023-09-05] MEDS: Memantine HCl 10 MG TABLET PO ×2 (08:35→22:04)
[2023-09-05] MEDS: Magnesium Oxide 400 MG TABLET PO ×2 (08:35→17:19)
[2023-09-05] MEDS: Empagliflozin 25 MG TABLET PO (08:35)
[2023-09-05] MEDS: Amphetamine Mixed Salts 10 MG TABLET PO ×2 (08:35→17:19)
[2023-09-05] MEDS: Famotidine 20 MG TABLET PO (08:35)
[2023-09-05] MEDS: Insulin Glargine,Hum.rec.anlog 100 UNIT/ML 10 ML VIAL 6 UNIT SUBCUT (08:35)
[2023-09-05] MEDS: Atorvastatin Calcium 40 MG TABLET PO (08:35)
--- NOTE | 2023-09-05 15:39 | HO.PSYCHPN ---
Subjective Subjective Date of Service: 09/05/23 Reason For Visit: hallucinations confusion Subjective Notes: Conditional Voluntary Interim History: The nursing staff reported the patient had been compliant with treatment, no new symptoms. The occupational therapist reported that yesterday she was crying, confused stating that that on know where to go. On interview the patient denies new symptoms she is pleasantly confused, easily redirectable. Waiting for placement. Mental Status Exam Mental Status Exam Patient Appearance: Appropriate Patient Orientation: Person and Situation Level of Consciousness: Awake and Appropriate Patient Behavior: Guarded and Passive Mood Description: Withdrawn Affect Description: Constricted Patient Cognition Impaired: Yes Ability to Follow Directions: Good Speech Pattern: Clear Hallucinations: None Delusions: Not Present Thought Process: Linear and Slowed Thinking Thought Content: positive for [place] and positive for Poverty of Content Judgement: Fair Diagnostics Vital Signs (24Hr): Vital Signs - 24 hr 09/04/23 18:00 09/05/23 06:00 Temperature 97.3 F 97.3 F Pulse Rate 83 66 Respiratory Rate 16 18 Blood Pressure 121/72 133/66 Pulse Oximetry 98 98 Oxygen Delivery Method Room Air Room Air BMI result Body Mass Index 26.2 Labs 09/04/23 07:52 09/05/23 07:55 Labs: Laboratory Results - last 48 hr 09/04/23 09/05/23 07:52 07:55 WBC 7.0 RBC 5.04 Hgb 13.3 Hct 42.5 MCV 84.3 MCH 26.4 L MCHC 31.3 RDW 13.7 Plt Count 307 MPV 9.9 Immature Gran % (Auto) 0.3 Neut % (Auto) 61.8 Lymph % (Auto) 28.1 [place] % (Auto) 6.8 Eos % (Auto) 2.7 Baso % (Auto) 0.3 Lymph # (Auto) 2.0 [place] # (Auto) 0.5 Eos # (Auto) 0.2 Baso # (Auto) 0.0 Abs Immat Gran (auto) 0.02 Absolute Neuts (auto) 4.3 Absolute Nucleated RBC 0.000 Nucleated RBC % (auto) 0.0 Sodium 143 Potassium 3.7 Chloride 106 Carbon Dioxide 27 Anion Gap 14 BUN 15 Creatinine 0.61 0.60 Estim Creat Clear Calc 90.0 91.5 Estimated GFR > 60 > 60 Random Glucose 101 Estimat Average Glucose 120 Hemoglobin A1c % 5.8 Calcium 10.3 H D Total Bilirubin 0.4 Direct Bilirubin 0.1 AST 22 ALT 19 Alkaline Phosphatase 83 Total Protein 6.5 Albumin 4.0 TSH 2.24 Imaging Radiology Impressions: ITS Impressions Brain MRI 04/03/23 15:30 IMPRESSION: No acute infarct, mass lesion, intracranial hemorrhage, or evidence of hydrocephalus. Mild nonspecific T2/FLAIR hyperintensity in the cerebral white matter and danny presumably on the basis of chronic microangiopathy. Cervical Spine CT 07/03/23 20:12 IMPRESSION: No acute findings within the cervical spine. The cervical central canal is not well assessed on this CT due to artifact. If weakness persists, a cervical spine MRI would be more sensitive in assessment. Medications Medications Current Medications Acetaminophen (Acetaminophen 325 Mg Tablet) 650 mg PO Q6H PRN PRN Reason: Headache/Pain Mild Scale (1-3) Last Admin: 08/31/23 21:38 Dose: 650 mg Al Hydroxide/Mg Hydroxide (Magnesium Hydrox/Alum Hydrox 30 Ml Oral.Susp) 30 ml PO Q6H PRN PRN Reason: Heartburn/Nausea Amphetamine/Dextroamphetamine (Amphetamine Mixed Salts 10 Mg Tablet) 10 mg PO BID@0800,1700 [facility] Last Admin: 09/05/23 08:35 Dose: 10 mg Atorvastatin Calcium (Atorvastatin Calcium 40 Mg Tablet) 40 mg PO DAILY [facility] Last Admin: 09/05/23 08:35 Dose: 40 mg Donepezil HCl (Donepezil Hcl 10 Mg Tablet) 10 mg PO BEDTIME [facility] Last Admin: 09/04/23 21:37 Dose: 10 mg Empagliflozin (Empagliflozin 25 Mg Tablet) 25 mg PO DAILY [facility] Last Admin: 09/05/23 08:35 Dose: 25 mg Famotidine (Famotidine 20 Mg Tablet) 20 mg PO DAILY [facility] Last Admin: 09/05/23 08:35 Dose: 20 mg Ibuprofen (Ibuprofen 600 Mg Tablet) 600 mg PO Q6H PRN PRN Reason: pain not relieved by tylenol Last Admin: 09/02/23 21:44 Dose: 600 mg Insulin Glargine (Insulin Glargine,Hum.Rec.Anlog 100 Unit/Ml 10 Ml Vial) 6 unit SUBCUT DAILY [facility] Last Admin: 09/05/23 08:35 Dose: 6 unit Loperamide HCl (Loperamide Hcl 2 Mg Capsule) 2 mg PO Q6H PRN PRN Reason: Loose Stool Last Admin: 08/07/23 14:48 Dose: 2 mg Magnesium Hydroxide (Milk Of Magnesia 30 Ml Oral.Susp) 30 ml PO DAILY PRN PRN Reason: Constipation Magnesium Oxide (Magnesium Oxide 400 Mg Tablet) 400 mg PO BIDPC [facility] Last Admin: 09/05/23 08:35 Dose: 400 mg Memantine (Memantine Hcl 10 Mg Tablet) 10 mg PO BID [facility] Last Admin: 09/05/23 08:35 Dose: 10 mg Metformin HCl (Metformin Hcl 1,000 Mg Tablet) 1,000 mg PO BID [facility] Last Admin: 09/05/23 08:35 Dose: 1,000 mg Olanzapine (Olanzapine 2.5 Mg Tablet) 2.5 mg PO Q4H PRN PRN Reason: anxiety/agitation Last Admin: 09/04/23 00:20 Dose: 2.5 mg Sertraline HCl (Sertraline Hcl 100 Mg Tablet) 100 mg PO DAILY [facility] Last Admin: 09/05/23 08:35 Dose: 100 mg Trazodone HCl (Trazodone Hcl 50 Mg Tablet) 50 mg PO BEDTIME MRX1 PRN PRN Reason: Insomnia Last Admin: 09/04/23 21:37 Dose: 50 mg Allergies Allergies Allergy/AdvReac Type Severity Reaction Status Date / Time No Known Allergies Allergy Verified 03/23/23 18:13 Assessment & Plan Assessment & Plan (1) Alzheimer's dementia: Status: Acute Code(s): G30.9 - Alzheimer's disease, unspecified; F02.80 - Dementia in other diseases classified elsewhere, unspecified severity, without behavioral disturbance, psychotic disturbance, mood disturbance, and anxiety Assessment and Plan: August 24 58 years old woman with relative young age onset at Alzheimer dementia but overall clinical picture is affected by significant depression, which continues to be the predominant feature of for clinical picture. Conventional dementia medicines such as donepezil or memantine can be tried but usually do not make significant difference. I would suggest memantine 10 mg twice a day and donepezil 10 mg daily. Recently a new dementia at drug for Alzheimer was approved but only for relatively mild dementia or mild cognitive impairment type of patients. She would not qualify for that drug. 08/11 continue current treatment plan Plan 1. Continue same treatment. 2. Waiting for placement. 3. Lower Haldol to 1 mg p.o. q.h.s. on July 28. August 17 we discontinue Haldol at night. . August 18 we decided to add a low dose of Adderall 5 mg p.o. b.i.d. to target her hypoactivity. So far, had been a modest improvement of her hypoactive so we increase other up to 10 mg p.o. b.i.d. on August 24. Plan Continue with same treatment, waiting for placement Reason for continued inpatient stay Substantial Risk for: inability to function, rapid decompensation and med/psych decompensation Time Spent With Patient Time: Total time managing care of this patient today __20__ minutes.
[2023-09-05 18:00] VITALS: BP 158/67; PULSE 75; RESP 18; TEMP 36.3; O2SAT 97
[2023-09-05] MEDS: traZODone HCL 50 MG TABLET PO (22:04)
[2023-09-05] MEDS: Ibuprofen 600 MG TABLET PO (22:04)
[2023-09-06 11:50] VITALS: BP 160/70; PULSE 74; RESP 18; TEMP 36.6; O2SAT 95
[2023-09-06] MEDS: Amphetamine Mixed Salts 10 MG TABLET PO ×2 (11:52→17:19)
[2023-09-06] MEDS: Atorvastatin Calcium 40 MG TABLET PO (11:52)
[2023-09-06] MEDS: Empagliflozin 25 MG TABLET PO (11:52)
[2023-09-06] MEDS: Sertraline HCL 100 MG TABLET PO (11:52)
[2023-09-06] MEDS: Famotidine 20 MG TABLET PO (11:52)
[2023-09-06] MEDS: Memantine HCl 10 MG TABLET PO ×2 (11:52→21:45)
[2023-09-06] MEDS: metFORMIN HCl 1,000 MG TABLET 1000 MG PO ×2 (11:52→21:45)
[2023-09-06] MEDS: Magnesium Oxide 400 MG TABLET PO ×2 (11:52→17:19)
[2023-09-06] MEDS: Insulin Glargine,Hum.rec.anlog 100 UNIT/ML 10 ML VIAL 6 UNIT SUBCUT (11:53)
--- NOTE | 2023-09-06 12:21 | P.PNPSI_ITS ---
Subjective Subjective Date of Service: 09/06/23 Reason For Visit: hallucinations confusion Subjective Notes: Conditional Voluntary Interim History: The nursing staff reported the patient had been compliant with treatment, she was seen in the common areas interacting superficially with peers and staff. On interview the patient denies new symptoms, waiting for placement. Mental Status Exam Mental Status Exam Patient Appearance: Appropriate Patient Orientation: Person Level of Consciousness: Awake Patient Behavior: Guarded and Passive Mood Description: Withdrawn Affect Description: Constricted Patient Cognition Impaired: Yes Ability to Follow Directions: Good Speech Pattern: Clear Hallucinations: None Delusions: Not Present Thought Process: Distracted and Slowed Thinking Thought Content: positive for [place] and positive for Poverty of Content Judgement: Poor Diagnostics Vital Signs (24Hr): Vital Signs - 24 hr 09/05/23 18:00 Temperature 97.4 F Pulse Rate 75 Respiratory Rate 18 Blood Pressure 158/67 H Pulse Oximetry 97 Oxygen Delivery Method Room Air BMI result Body Mass Index 26.2 Labs 09/04/23 07:52 09/05/23 07:55 Labs: Laboratory Results - last 48 hr 09/05/23 07:55 Creatinine 0.60 Estim Creat Clear Calc 91.5 Estimated GFR > 60 Imaging Radiology Impressions: ITS Impressions Brain MRI 04/03/23 15:30 IMPRESSION: No acute infarct, mass lesion, intracranial hemorrhage, or evidence of hydrocephalus. Mild nonspecific T2/FLAIR hyperintensity in the cerebral white matter and danny presumably on the basis of chronic microangiopathy. Cervical Spine CT 07/03/23 20:12 IMPRESSION: No acute findings within the cervical spine. The cervical central canal is not well assessed on this CT due to artifact. If weakness persists, a cervical spine MRI would be more sensitive in assessment. Medications Medications Current Medications Acetaminophen (Acetaminophen 325 Mg Tablet) 650 mg PO Q6H PRN PRN Reason: Headache/Pain Mild Scale (1-3) Last Admin: 08/31/23 21:38 Dose: 650 mg Al Hydroxide/Mg Hydroxide (Magnesium Hydrox/Alum Hydrox 30 Ml Oral.Susp) 30 ml PO Q6H PRN PRN Reason: Heartburn/Nausea Amphetamine/Dextroamphetamine (Amphetamine Mixed Salts 10 Mg Tablet) 10 mg PO BID@0800,1700 [facility] Last Admin: 09/06/23 11:52 Dose: 10 mg Atorvastatin Calcium (Atorvastatin Calcium 40 Mg Tablet) 40 mg PO DAILY [facility] Last Admin: 09/06/23 11:52 Dose: 40 mg Empagliflozin (Empagliflozin 25 Mg Tablet) 25 mg PO DAILY [facility] Last Admin: 09/06/23 11:52 Dose: 25 mg Famotidine (Famotidine 20 Mg Tablet) 20 mg PO DAILY [facility] Last Admin: 09/06/23 11:52 Dose: 20 mg Ibuprofen (Ibuprofen 600 Mg Tablet) 600 mg PO Q6H PRN PRN Reason: pain not relieved by tylenol Last Admin: 09/05/23 22:04 Dose: 600 mg Insulin Glargine (Insulin Glargine,Hum.Rec.Anlog 100 Unit/Ml 10 Ml Vial) 6 unit SUBCUT DAILY [facility] Last Admin: 09/06/23 11:53 Dose: 6 unit Loperamide HCl (Loperamide Hcl 2 Mg Capsule) 2 mg PO Q6H PRN PRN Reason: Loose Stool Last Admin: 08/07/23 14:48 Dose: 2 mg Magnesium Hydroxide (Milk Of Magnesia 30 Ml Oral.Susp) 30 ml PO DAILY PRN PRN Reason: Constipation [facility] Ox[facility] ([facility] 400 Mg [facility]t) [facility] Last Admin: 09/06/23 11:52 Dose: 400 mg Memantine (Memantine Hcl 10 Mg Tablet) 10 mg PO BID [facility] Last Admin: 09/06/23 11:52 Dose: 10 mg Metformin HCl (Metformin Hcl 1,000 Mg Tablet) 1,000 mg PO BID [facility] Last Admin: 09/06/23 11:52 Dose: 1,000 mg Olanzapine (Olanzapine 2.5 Mg Tablet) 2.5 mg PO Q4H PRN PRN Reason: anxiety/agitation Last Admin: 09/04/23 00:20 Dose: 2.5 mg Sertraline HCl (Sertraline Hcl 100 Mg Tablet) 100 mg PO DAILY [facility] Last Admin: 09/06/23 11:52 Dose: 100 mg Trazodone HCl (Trazodone Hcl 50 Mg Tablet) 50 mg PO BEDTIME MRX1 PRN PRN Reason: Insomnia Last Admin: 09/05/23 22:04 Dose: 50 mg Allergies Allergies Allergy/AdvReac Type Severity Reaction Status Date / Time No Known Allergies Allergy Verified 03/23/23 18:13 Assessment & Plan Assessment & Plan (1) Alzheimer's dementia: Status: Acute Code(s): G30.9 - Alzheimer's disease, unspecified; F02.80 - Dementia in other diseases classified elsewhere, unspecified severity, without behavioral disturbance, psychotic disturbance, mood disturbance, and anxiety Assessment and Plan: August 24 58 years old woman with relative young age onset at Alzheimer dementia but overall clinical picture is affected by significant depression, which continues to be the predominant feature of for clinical picture. Conventional dementia medicines such as donepezil or memantine can be tried but usually do not make significant difference. I would suggest memantine 10 mg twice a day and donepezil 10 mg daily. Recently a new dementia at drug for Alzheimer was approved but only for relatively mild dementia or mild cognitive impairment type of patients. She would not qualify for that drug. 08/11 continue current treatment plan Plan 1. Continue same treatment. 2. Waiting for placement. 3. Lower Haldol to 1 mg p.o. q.h.s. on July 28. August 17 we discontinue Haldol at night. 4. August 18 we decided to add a low dose of Adderall 5 mg p.o. b.i.d. to target her hypoactivity. So far, had been a modest improvement of her hypoactive so we increase other up to 10 mg p.o. b.i.d. on August 24. Plan Continue with same treatment, waiting for placement Reason for continued inpatient stay Substantial Risk for: inability to function, rapid decompensation and med/psych decompensation Time Spent With Patient Time: Total time managing care of this patient today __20__ minutes.
--- NOTE | 2023-09-06 15:19 | MHC.CLN ---
F/U DIET=DIABETIC 1800 KCAL. ENSURE MAX PROTEIN TID PROVIDES 450 KCALS, 90 G PROTEIN. WEIGHT STABLE X [address] TO MONITOR WEEKLY.
[2023-09-06 18:00] VITALS: BP 123/62; PULSE 70; RESP 18; TEMP 36.6; O2SAT 98
[2023-09-06] MEDS: traZODone HCL 50 MG TABLET PO (21:45)
[2023-09-07 07:20] LABS: Creatinine Clr Calc Pharmacy 88.6; Estimated Glomerular Filt Rate > 60
[2023-09-07 08:15] VITALS: BP 128/70; PULSE 68; RESP 16; TEMP 37.2; O2SAT 96
[2023-09-07] MEDS: Insulin Glargine,Hum.rec.anlog 100 UNIT/ML 10 ML VIAL 6 UNIT SUBCUT (08:17)
[2023-09-07] MEDS: Famotidine 20 MG TABLET PO (08:19)
[2023-09-07] MEDS: Atorvastatin Calcium 40 MG TABLET PO (08:19)
[2023-09-07] MEDS: metFORMIN HCl 1,000 MG TABLET 1000 MG PO ×2 (08:19→20:13)
[2023-09-07] MEDS: Empagliflozin 25 MG TABLET PO (08:19)
[2023-09-07] MEDS: Sertraline HCL 100 MG TABLET PO (08:19)
[2023-09-07] MEDS: Memantine HCl 10 MG TABLET PO ×2 (08:19→20:13)
[2023-09-07] MEDS: Magnesium Oxide 400 MG TABLET PO ×2 (08:19→16:42)
[2023-09-07] MEDS: Amphetamine Mixed Salts 10 MG TABLET PO ×2 (08:19→16:42)
[2023-09-07] MEDS: Sertraline HCL 50 MG TABLET 150 MG PO (12:04)
--- NOTE | 2023-09-07 13:34 | P.PNPSI_ITS ---
Subjective Subjective Date of Service: 09/07/23 Reason For Visit: hallucinations confusion Subjective Notes: Conditional Voluntary Interim History: The nursing staff reported the patient had been pleasant, compliant with treatment. Yesterday I spoke with her and she was crying. She was unable to verbalize why she was sad. The social work specialist reported that he spoke with the guardian that or knee and they are going to try to get an application for an title meds. On interview the patient denies new symptoms we discussed increase the Zoloft up to 150 mg a day. Mental Status Exam Mental Status Exam Patient Appearance: Well Grooomed and Appropriate Patient Orientation: Person and Situation Level of Consciousness: Awake and Appropriate Patient Behavior: Guarded and Passive Mood Description: Withdrawn Affect Description: Constricted Patient Cognition Impaired: Yes Ability to Follow Directions: Good Speech Pattern: Clear Hallucinations: None Delusions: Not Present Thought Process: Distracted and Evasive Thought Content: positive for [place] and positive for Poverty of Content Judgement: Fair Diagnostics Vital Signs (24Hr): Vital Signs - 24 hr 09/06/23 18:00 09/07/23 08:15 Temperature 97.8 F 99.0 F Pulse Rate 70 68 Respiratory Rate 18 16 Blood Pressure 123/62 128/70 Pulse Oximetry 98 96 Oxygen Delivery Method Room Air Room Air BMI result Body Mass Index 26.2 Labs 09/04/23 07:52 09/07/23 06:45 Labs: Laboratory Results - last 48 hr 09/07/23 06:45 Creatinine 0.62 Estim Creat Clear Calc 88.6 Estimated GFR > 60 Imaging Radiology Impressions: ITS Impressions Brain MRI 04/03/23 15:30 IMPRESSION: No acute infarct, mass lesion, intracranial hemorrhage, or evidence of hydrocephalus. Mild nonspecific T2/FLAIR hyperintensity in the cerebral white matter and danny presumably on the basis of chronic microangiopathy. Cervical Spine CT 07/03/23 20:12 IMPRESSION: No acute findings within the cervical spine. The cervical central canal is not well assessed on this CT due to artifact. If weakness persists, a cervical spine MRI would be more sensitive in assessment. Medications Medications Current Medications Acetaminophen (Acetaminophen 325 Mg Tablet) 650 mg PO Q6H PRN PRN Reason: Headache/Pain Mild Scale (1-3) Last Admin: 08/31/23 21:38 Dose: 650 mg Al Hydroxide/Mg Hydroxide (Magnesium Hydrox/Alum Hydrox 30 Ml Oral.Susp) 30 ml PO Q6H PRN PRN Reason: Heartburn/Nausea Amphetamine/Dextroamphetamine (Amphetamine Mixed Salts 10 Mg Tablet) 10 mg PO BID@0800,1700 [facility] Last Admin: 09/07/23 08:19 Dose: 10 mg Atorvastatin Calcium (Atorvastatin Calcium 40 Mg Tablet) 40 mg PO DAILY [facility] Last Admin: 09/07/23 08:19 Dose: 40 mg Empagliflozin (Empagliflozin 25 Mg Tablet) 25 mg PO DAILY [facility] Last Admin: 09/07/23 08:19 Dose: 25 mg Famotidine (Famotidine 20 Mg Tablet) 20 mg PO DAILY [facility] Last Admin: 09/07/23 08:19 Dose: 20 mg Ibuprofen (Ibuprofen 600 Mg Tablet) 600 mg PO Q6H PRN PRN Reason: pain not relieved by tylenol Last Admin: 09/05/23 22:04 Dose: 600 mg Insulin Glargine (Insulin Glargine,Hum.Rec.Anlog 100 Unit/Ml 10 Ml Vial) 6 unit SUBCUT DAILY [facility] Last Admin: 09/07/23 08:17 Dose: 6 unit Loperamide HCl (Loperamide Hcl 2 Mg Capsule) 2 mg PO Q6H PRN PRN Reason: Loose Stool Last Admin: 08/07/23 14:48 Dose: 2 mg Magnesium Hydroxide (Milk Of Magnesia 30 Ml Oral.Susp) 30 ml PO DAILY PRN PRN Reason: Constipation Magnesium Oxide (Magnesium Oxide 400 Mg Tablet) [facility] Last Admin: 09/07/23 08:19 Dose: 400 mg Memantine (Memantine Hcl 10 Mg Tablet) 10 mg PO BID [facility] Last Admin: 09/07/23 08:19 Dose: 10 mg Metformin HCl (Metformin Hcl 1,000 Mg Tablet) 1,000 mg PO BID [facility] Last Admin: 09/07/23 08:19 Dose: 1,000 mg Olanzapine (Olanzapine 2.5 Mg Tablet) 2.5 mg PO Q4H PRN PRN Reason: anxiety/agitation Last Admin: 09/04/23 00:20 Dose: 2.5 mg Sertraline HCl (Sertraline Hcl 50 Mg Tablet) 150 mg PO DAILY [facility] Last Admin: 09/07/23 12:04 Dose: 50 mg Trazodone HCl (Trazodone Hcl 50 Mg Tablet) 50 mg PO BEDTIME MRX1 PRN PRN Reason: Insomnia Last Admin: 09/06/23 21:45 Dose: 50 mg Allergies Allergies Allergy/AdvReac Type Severity Reaction Status Date / Time No Known Allergies Allergy Verified 03/23/23 18:13 Assessment & Plan Assessment & Plan (1) Alzheimer's dementia: Status: Acute Code(s): G30.9 - Alzheimer's disease, unspecified; F02.80 - Dementia in other diseases classified elsewhere, unspecified severity, without behavioral disturbance, psychotic disturbance, mood disturbance, and anxiety Assessment and Plan: August 24 58 years old woman with relative young age onset at Alzheimer dementia but overall clinical picture is affected by significant depression, which continues to be the predominant feature of for clinical picture. Conventional dementia medicines such as donepezil or memantine can be tried but usually do not make significant difference. I would suggest memantine 10 mg twice a day and donepezil 10 mg daily. Recently a new dementia at drug for Alzheimer was approved but only for relatively mild dementia or mild cognitive impairment type of patients. She would not qualify for that drug. 08/11 continue current treatment plan Plan 1. Continue same treatment. 2. Waiting for placement. 3. Lower Haldol to 1 mg p.o. q.h.s. on July 28. August 17 we discontinue Haldol at night. 4. August 18 we decided to add a low dose of Adderall 5 mg p.o. b.i.d. to target her hypoactivity. So far, had been a modest improvement of her hypoactive so we increase other up to 10 mg p.o. b.i.d. on August 24. 5. Increase Zoloft up to 150 mg p.o. q.a.m. Plan Continue with same treatment, waiting for placement Reason for continued inpatient stay Substantial Risk for: inability to function, rapid decompensation and med/psych decompensation Time Spent With Patient Time: Total time managing care of this patient today __20__ minutes.
[2023-09-07 19:35] VITALS: BP 131/70; PULSE 79; RESP 16; TEMP 36.4; O2SAT 96
[2023-09-07] MEDS: traZODone HCL 50 MG TABLET PO (20:13)
[2023-09-08 08:50] VITALS: BP 123/64; PULSE 68; RESP 18; TEMP 36.8; O2SAT 94
[2023-09-08] MEDS: Atorvastatin Calcium 40 MG TABLET PO (08:54)
[2023-09-08] MEDS: Magnesium Oxide 400 MG TABLET PO ×2 (08:54→17:06)
[2023-09-08] MEDS: Amphetamine Mixed Salts 10 MG TABLET PO ×2 (08:54→17:06)
[2023-09-08] MEDS: Sertraline HCL 50 MG TABLET 150 MG PO (08:54)
[2023-09-08] MEDS: Empagliflozin 25 MG TABLET PO (08:54)
[2023-09-08] MEDS: Famotidine 20 MG TABLET PO (08:54)
[2023-09-08] MEDS: Memantine HCl 10 MG TABLET PO ×2 (08:55→20:53)
[2023-09-08] MEDS: metFORMIN HCl 1,000 MG TABLET 1000 MG PO ×2 (08:55→20:53)
[2023-09-08] MEDS: Insulin Glargine,Hum.rec.anlog 100 UNIT/ML 10 ML VIAL 6 UNIT SUBCUT (08:59)
--- NOTE | 2023-09-08 14:11 | HO.PSYCHPN ---
Subjective Subjective Date of Service: 09/08/23 Reason For Visit: hallucinations confusion Subjective Notes: Conditional Voluntary Interim History: The nursing staff reported the patient had been compliant with treatment, she was seen a little dysphoric. Confused but easily redirectable. On interview the patient denies new symptoms, waiting for placement. Mental Status Exam Mental Status Exam Patient Appearance: Well Grooomed and Appropriate Patient Orientation: Person and Situation Level of Consciousness: Awake and Appropriate Patient Behavior: Guarded and Passive Mood Description: Withdrawn Affect Description: Constricted Patient Cognition Impaired: Yes Ability to Follow Directions: Good Speech Pattern: Clear Hallucinations: None Delusions: Not Present Thought Process: Distracted and Slowed Thinking Thought Content: positive for [place] and positive for Poverty of Content Judgement: Poor Diagnostics Vital Signs (24Hr): Vital Signs - 24 hr 09/07/23 19:35 09/08/23 08:50 Temperature 97.5 F 98.2 F Pulse Rate 79 68 Respiratory Rate 16 18 Blood Pressure 131/70 123/64 Pulse Oximetry 96 94 Oxygen Delivery Method Room Air Room Air BMI result Body Mass Index 26.2 Labs 09/04/23 07:52 09/07/23 06:45 Labs: Laboratory Results - last 48 hr 09/07/23 06:45 Creatinine 0.62 Estim Creat Clear Calc 88.6 Estimated GFR > 60 Imaging Radiology Impressions: ITS Impressions Brain MRI 04/03/23 15:30 IMPRESSION: No acute infarct, mass lesion, intracranial hemorrhage, or evidence of hydrocephalus. Mild nonspecific T2/FLAIR hyperintensity in the cerebral white matter and danny presumably on the basis of chronic microangiopathy. Cervical Spine CT 07/03/23 20:12 IMPRESSION: No acute findings within the cervical spine. The cervical central canal is not well assessed on this CT due to artifact. If weakness persists, a cervical spine MRI would be more sensitive in assessment. Medications Medications Current Medications Acetaminophen (Acetaminophen 325 Mg Tablet) 650 mg PO Q6H PRN PRN Reason: Headache/Pain Mild Scale (1-3) Last Admin: 08/31/23 21:38 Dose: 650 mg Al Hydroxide/Mg Hydroxide (Magnesium Hydrox/Alum Hydrox 30 Ml Oral.Susp) 30 ml PO Q6H PRN PRN Reason: Heartburn/Nausea Amphetamine/Dextroamphetamine (Amphetamine Mixed Salts 10 Mg Tablet) 10 mg PO BID@0800,1700 [facility] Last Admin: 09/08/23 08:54 Dose: 10 mg Atorvastatin Calcium (Atorvastatin Calcium 40 Mg Tablet) 40 mg PO DAILY [facility] Last Admin: 09/08/23 08:54 Dose: 40 mg Empagliflozin (Empagliflozin 25 Mg Tablet) 25 mg PO DAILY [facility] Last Admin: 09/08/23 08:54 Dose: 25 mg Famotidine (Famotidine 20 Mg Tablet) 20 mg PO DAILY [facility] Last Admin: 09/08/23 08:54 Dose: 20 mg Ibuprofen (Ibuprofen 600 Mg Tablet) 600 mg PO Q6H PRN PRN Reason: pain not relieved by tylenol Last Admin: 09/05/23 22:04 Dose: 600 mg Insulin Glargine (Insulin Glargine,Hum.Rec.Anlog 100 Unit/Ml 10 Ml Vial) 6 unit SUBCUT DAILY [facility] Last Admin: 09/08/23 08:59 Dose: 6 unit Loperamide HCl (Loperamide Hcl 2 Mg Capsule) 2 mg PO Q6H PRN PRN Reason: Loose Stool Last Admin: 08/07/23 14:48 Dose: 2 mg Magnesium Hydroxide (Milk Of Magnesia 30 Ml Oral.Susp) 30 ml PO DAILY PRN PRN Reason: Constipation Magnesium Oxide ([facility] 400 Mg Tablet) [facility] Last Admin: 09/08/23 08:54 Dose: 400 mg Memantine (Memantine Hcl 10 Mg Tablet) 10 mg PO BID [facility] Last Admin: 09/08/23 08:55 Dose: 10 mg Metformin HCl (Metformin Hcl 1,000 Mg Tablet) 1,000 mg PO BID [facility] Last Admin: 09/08/23 08:55 Dose: 1,000 mg Olanzapine (Olanzapine 2.5 Mg Tablet) 2.5 mg PO Q4H PRN PRN Reason: anxiety/agitation Last Admin: 09/04/23 00:20 Dose: 2.5 mg Sertraline HCl (Sertraline Hcl 50 Mg Tablet) 150 mg PO DAILY [facility] Last Admin: 09/08/23 08:54 Dose: 150 mg Trazodone HCl (Trazodone Hcl 50 Mg Tablet) 50 mg PO BEDTIME MRX1 PRN PRN Reason: Insomnia Last Admin: 09/07/23 20:13 Dose: 50 mg Allergies Allergies Allergy/AdvReac Type Severity Reaction Status Date / Time No Known Allergies Allergy Verified 03/23/23 18:13 Assessment & Plan Assessment & Plan (1) Alzheimer's dementia: Status: Acute Code(s): G30.9 - Alzheimer's disease, unspecified; F02.80 - Dementia in other diseases classified elsewhere, unspecified severity, without behavioral disturbance, psychotic disturbance, mood disturbance, and anxiety Assessment and Plan: August 24 58 years old woman with relative young age onset at Alzheimer dementia but overall clinical picture is affected by significant depression, which continues to be the predominant feature of for clinical picture. Conventional dementia medicines such as donepezil or memantine can be tried but usually do not make significant difference. I would suggest memantine 10 mg twice a day and donepezil 10 mg daily. Recently a new dementia at drug for Alzheimer was approved but only for relatively mild dementia or mild cognitive impairment type of patients. She would not qualify for that drug. 08/11 continue current treatment plan Plan 1. Continue same treatment. 2. Waiting for placement. 3. Lower Haldol to 1 mg p.o. q.h.s. on July 28. August 17 we discontinue Haldol at night. 4. August 18 we decided to add a low dose of Adderall 5 mg p.o. b.i.d. to target her hypoactivity. So far, had been a modest improvement of her hypoactive so we increase other up to 10 mg p.o. b.i.d. on August 24. 5. Increase Zoloft up to 150 mg p.o. q.a.m. Plan Continue with same treatment, waiting for placement Reason for continued inpatient stay Substantial Risk for: inability to function, rapid decompensation and med/psych decompensation Time Spent With Patient Time: Total time managing care of this patient today __20__ minutes.
[2023-09-08 18:00] VITALS: BP 116/72; PULSE 81; RESP 16; TEMP 36.9; O2SAT 96
[2023-09-08] MEDS: traZODone HCL 50 MG TABLET PO (20:53)
--- NOTE | 2023-09-09 09:15 | HO.PSYCHPN ---
Subjective Subjective Date of Service: 09/09/23 Reason For Visit: hallucinations confusion Subjective Notes: Conditional Voluntary Interim History: The nursing staff reported the patient had been compliant with treatment remains with poor eye contact, wandering confused in the unit, easily redirectable. Interview the patient denies new symptoms, waiting for placement. Mental Status Exam Mental Status Exam Patient Appearance: Appropriate Patient Orientation: Person Level of Consciousness: Awake and Appropriate Patient Behavior: Guarded and Passive Mood Description: Withdrawn Affect Description: Blunted Patient Cognition Impaired: Yes Ability to Follow Directions: Good Speech Pattern: Clear Hallucinations: None Delusions: Not Present Thought Process: Distracted and Slowed Thinking Thought Content: positive for [place], positive for [place] and positive for Thought Blocking Judgement: Poor Diagnostics Vital Signs (24Hr): Vital Signs - 24 hr 09/08/23 18:00 Temperature 98.4 F Pulse Rate 81 Respiratory Rate 16 Blood Pressure 116/72 Pulse Oximetry 96 Oxygen Delivery Method Room Air BMI result Body Mass Index 26.2 Labs 09/04/23 07:52 09/07/23 06:45 Imaging Radiology Impressions: ITS Impressions Brain MRI 04/03/23 15:30 IMPRESSION: No acute infarct, mass lesion, intracranial hemorrhage, or evidence of hydrocephalus. Mild nonspecific T2/FLAIR hyperintensity in the cerebral white matter and danny presumably on the basis of chronic microangiopathy. Cervical Spine CT 07/03/23 20:12 IMPRESSION: No acute findings within the cervical spine. The cervical central canal is not well assessed on this CT due to artifact. If weakness persists, a cervical spine MRI would be more sensitive in assessment. Medications Medications Current Medications Acetaminophen (Acetaminophen 325 Mg Tablet) 650 mg PO Q6H PRN PRN Reason: Headache/Pain Mild Scale (1-3) Last Admin: 08/31/23 21:38 Dose: 650 mg Al Hydroxide/Mg Hydroxide (Magnesium Hydrox/Alum Hydrox 30 Ml Oral.Susp) 30 ml PO Q6H PRN PRN Reason: Heartburn/Nausea Amphetamine/Dextroamphetamine (Amphetamine Mixed Salts 10 Mg Tablet) 10 mg PO BID@0800,1700 [facility] Last Admin: 09/08/23 17:06 Dose: 10 mg Atorvastatin Calcium (Atorvastatin Calcium 40 Mg Tablet) 40 mg PO DAILY [facility] Last Admin: 09/08/23 08:54 Dose: 40 mg Empagliflozin (Empagliflozin 25 Mg Tablet) 25 mg PO DAILY [facility] Last Admin: 09/08/23 08:54 Dose: 25 mg Famotidine (Famotidine 20 Mg Tablet) 20 mg PO DAILY [facility] Last Admin: 09/08/23 08:54 Dose: 20 mg Ibuprofen (Ibuprofen 600 Mg Tablet) 600 mg PO Q6H PRN PRN Reason: pain not relieved by tylenol Last Admin: 09/05/23 22:04 Dose: 600 mg Insulin Glargine (Insulin Glargine,Hum.Rec.Anlog 100 Unit/Ml 10 Ml Vial) 6 unit SUBCUT DAILY [facility] Last Admin: 09/08/23 08:59 Dose: 6 unit Loperamide HCl (Loperamide Hcl 2 Mg Capsule) 2 mg PO Q6H PRN PRN Reason: Loose Stool Last Admin: 08/07/23 14:48 Dose: 2 mg Magnesium Hydroxide (Milk Of Magnesia 30 Ml Oral.Susp) 30 ml PO DAILY PRN PRN Reason: Constipation [facility] ([facility] Last Admin: 09/08/23 17:06 Dose: 400 mg Memantine (Memantine Hcl 10 Mg Tablet) 10 mg PO BID [facility] Last Admin: 09/08/23 20:53 Dose: 10 mg Metformin HCl (Metformin Hcl 1,000 Mg Tablet) 1,000 mg PO BID [facility] Last Admin: 09/08/23 20:53 Dose: 1,000 mg Olanzapine (Olanzapine 2.5 Mg Tablet) 2.5 mg PO Q4H PRN PRN Reason: anxiety/agitation Last Admin: 09/04/23 00:20 Dose: 2.5 mg Sertraline HCl (Sertraline Hcl 50 Mg Tablet) 150 mg PO DAILY [facility] Last Admin: 09/08/23 08:54 Dose: 150 mg Trazodone HCl (Trazodone Hcl 50 Mg Tablet) 50 mg PO BEDTIME MRX1 PRN PRN Reason: Insomnia Last Admin: 09/08/23 20:53 Dose: 50 mg Allergies Allergies Allergy/AdvReac Type Severity Reaction Status Date / Time No Known Allergies Allergy Verified 03/23/23 18:13 Assessment & Plan Assessment & Plan (1) Alzheimer's dementia: Status: Acute Code(s): G30.9 - Alzheimer's disease, unspecified; F02.80 - Dementia in other diseases classified elsewhere, unspecified severity, without behavioral disturbance, psychotic disturbance, mood disturbance, and anxiety Assessment and Plan: October 19 58 years old woman with relative young age onset at Alzheimer dementia but overall clinical picture is affected by significant depression, which continues to be the predominant feature of for clinical picture. Conventional dementia medicines such as donepezil or memantine can be tried but usually do not make significant difference. I would suggest memantine 10 mg twice a day and donepezil 10 mg daily. Recently a new dementia at drug for Alzheimer was approved but only for relatively mild dementia or mild cognitive impairment type of patients. She would not qualify for that drug. 08/11 continue current treatment plan Plan 1. Continue same treatment. 2. Waiting for placement. 3. Lower Haldol to 1 mg p.o. q.h.s. on July 28. August 17 we discontinue Haldol at night. 4. August 18 we decided to add a low dose of Adderall 5 mg p.o. b.i.d. to target her hypoactivity. So far, had been a modest improvement of her hypoactive so we increase other up to 10 mg p.o. b.i.d. on August 24. 5. Increase Zoloft up to 150 mg p.o. q.a.m. Plan Continue with same treatment, waiting for placement Reason for continued inpatient stay Substantial Risk for: inability to function, rapid decompensation and med/psych decompensation Time Spent With Patient Time: Total time managing care of this patient today __20__ minutes.
[2023-09-09 09:18] VITALS: BP 137/64; PULSE 59; RESP 14; TEMP 37; O2SAT 93
[2023-09-09] MEDS: Empagliflozin 25 MG TABLET PO (09:26)
[2023-09-09] MEDS: Amphetamine Mixed Salts 10 MG TABLET PO ×2 (09:26→17:27)
[2023-09-09] MEDS: metFORMIN HCl 1,000 MG TABLET 1000 MG PO ×2 (09:26→21:02)
[2023-09-09] MEDS: Memantine HCl 10 MG TABLET PO ×2 (09:26→21:02)
[2023-09-09] MEDS: Magnesium Oxide 400 MG TABLET PO ×2 (09:26→17:27)
[2023-09-09] MEDS: Famotidine 20 MG TABLET PO (09:26)
[2023-09-09] MEDS: Atorvastatin Calcium 40 MG TABLET PO (09:26)
[2023-09-09] MEDS: Sertraline HCL 50 MG TABLET 150 MG PO (09:26)
[2023-09-09] MEDS: Insulin Glargine,Hum.rec.anlog 100 UNIT/ML 10 ML VIAL 6 UNIT SUBCUT (09:31)
[2023-09-09 18:00] VITALS: BP 138/69; PULSE 73; RESP 16; TEMP 36.2; O2SAT 99
[2023-09-09] MEDS: traZODone HCL 50 MG TABLET PO (21:02)
[2023-09-09] MEDS: Ibuprofen 600 MG TABLET PO (21:02)
[2023-09-10 08:00] VITALS: BP 114/56; PULSE 70; RESP 18; TEMP 36.2; O2SAT 95
[2023-09-10] MEDS: Memantine HCl 10 MG TABLET PO ×2 (08:22→20:46)
[2023-09-10] MEDS: metFORMIN HCl 1,000 MG TABLET 1000 MG PO ×2 (08:22→20:46)
[2023-09-10] MEDS: Amphetamine Mixed Salts 10 MG TABLET PO ×2 (08:22→16:58)
[2023-09-10] MEDS: Famotidine 20 MG TABLET PO (08:22)
[2023-09-10] MEDS: Empagliflozin 25 MG TABLET PO (08:23)
[2023-09-10] MEDS: Magnesium Oxide 400 MG TABLET PO ×2 (08:23→16:58)
[2023-09-10] MEDS: Atorvastatin Calcium 40 MG TABLET PO (08:23)
[2023-09-10] MEDS: Insulin Glargine,Hum.rec.anlog 100 UNIT/ML 10 ML VIAL 6 UNIT SUBCUT (08:23)
[2023-09-10] MEDS: Sertraline HCL 50 MG TABLET 150 MG PO (08:23)
--- NOTE | 2023-09-10 10:19 | P.PNPSI_ITS ---
Subjective Subjective Date of Service: 09/10/23 Reason For Visit: hallucinations confusion Subjective Notes: Conditional Voluntary Interim History: The nursing staff reported the patient had been compliant with treatment, no changes in her mental status, wandering the unit. Yesterday her sister came and visited her. On interview the patient denies new symptoms, waiting for placement. Mental Status Exam Mental Status Exam Patient Appearance: Appropriate Patient Orientation: Person Level of Consciousness: Awake and Appropriate Patient Behavior: Guarded and Passive Mood Description: Withdrawn Affect Description: Constricted Patient Cognition Impaired: Yes Ability to Follow Directions: Good Speech Pattern: Clear Hallucinations: None Delusions: Not Present Thought Process: Distracted, Evasive and Slowed Thinking Thought Content: positive for [place] and positive for Poverty of Content Judgement: Fair Diagnostics Vital Signs (24Hr): Vital Signs - 24 hr 09/09/23 18:00 09/10/23 08:00 Temperature 97.2 F 97.2 F Pulse Rate 73 70 Respiratory Rate 16 18 Blood Pressure 138/69 114/56 L Pulse Oximetry 99 95 Oxygen Delivery Method Room Air Room Air BMI result Body Mass Index 26.2 Labs 09/04/23 07:52 09/07/23 06:45 Imaging Radiology Impressions: ITS Impressions Brain MRI 04/03/23 15:30 IMPRESSION: No acute infarct, mass lesion, intracranial hemorrhage, or evidence of hydrocephalus. Mild nonspecific T2/FLAIR hyperintensity in the cerebral white matter and danny presumably on the basis of chronic microangiopathy. Cervical Spine CT 07/03/23 20:12 IMPRESSION: No acute findings within the cervical spine. The cervical central canal is not well assessed on this CT due to artifact. If weakness persists, a cervical spine MRI would be more sensitive in assessment. Medications Medications Current Medications Acetaminophen (Acetaminophen 325 Mg Tablet) 650 mg PO Q6H PRN PRN Reason: Headache/Pain Mild Scale (1-3) Last Admin: 08/31/23 21:38 Dose: 650 mg Al Hydroxide/Mg Hydroxide (Magnesium Hydrox/Alum Hydrox 30 Ml Oral.Susp) 30 ml PO Q6H PRN PRN Reason: Heartburn/Nausea Amphetamine/Dextroamphetamine (Amphetamine Mixed Salts 10 Mg Tablet) 10 mg PO BID@0800,1700 [facility] Last Admin: 09/10/23 08:22 Dose: 10 mg Atorvastatin Calcium (Atorvastatin Calcium 40 Mg Tablet) 40 mg PO DAILY [facility] Last Admin: 09/10/23 08:23 Dose: 40 mg Empagliflozin (Empagliflozin 25 Mg Tablet) 25 mg PO DAILY [facility] Last Admin: 09/10/23 08:23 Dose: 25 mg Famotidine (Famotidine 20 Mg Tablet) 20 mg PO DAILY [facility] Last Admin: 09/10/23 08:22 Dose: 20 mg Ibuprofen (Ibuprofen 600 Mg Tablet) 600 mg PO Q6H PRN PRN Reason: pain not relieved by tylenol Last Admin: 09/09/23 21:02 Dose: 600 mg Insulin Glargine (Insulin Glargine,Hum.Rec.Anlog 100 Unit/Ml 10 Ml Vial) 6 unit SUBCUT DAILY [facility] Last Admin: 09/10/23 08:23 Dose: 6 unit Loperamide HCl (Loperamide Hcl 2 Mg Capsule) 2 mg PO Q6H PRN PRN Reason: Loose Stool Last Admin: 08/07/23 14:48 Dose: 2 mg Magnesium Hydroxide (Milk Of Magnesia 30 Ml Oral.Susp) 30 ml PO DAILY PRN PRN Reason: Constipation Magnesium Oxide (Magnesium [facility]ide 400 Mg Tablet) [facility] Last Admin: 09/10/23 08:23 Dose: 400 mg Memantine (Memantine Hcl 10 Mg Tablet) 10 mg PO BID [facility] Last Admin: 09/10/23 08:22 Dose: 10 mg Metformin HCl (Metformin Hcl 1,000 Mg Tablet) 1,000 mg PO BID [facility] Last Admin: 09/10/23 08:22 Dose: 1,000 mg Olanzapine (Olanzapine 2.5 Mg Tablet) 2.5 mg PO Q4H PRN PRN Reason: anxiety/agitation Last Admin: 09/04/23 00:20 Dose: 2.5 mg Sertraline HCl (Sertraline Hcl 50 Mg Tablet) 150 mg PO DAILY [facility] Last Admin: 09/10/23 08:23 Dose: 150 mg Trazodone HCl (Trazodone Hcl 50 Mg Tablet) 50 mg PO BEDTIME MRX1 PRN PRN Reason: Insomnia Last Admin: 09/09/23 21:02 Dose: 50 mg Allergies Allergies Allergy/AdvReac Type Severity Reaction Status Date / Time No Known Allergies Allergy Verified 03/23/23 18:13 Assessment & Plan Assessment & Plan (1) Alzheimer's dementia: Status: Acute Code(s): G30.9 - Alzheimer's disease, unspecified; F02.80 - Dementia in other diseases classified elsewhere, unspecified severity, without behavioral disturbance, psychotic disturbance, mood disturbance, and anxiety Assessment and Plan: August 24 58 years old woman with relative young age onset at Alzheimer dementia but overall clinical picture is affected by significant depression, which continues to be the predominant feature of for clinical picture. Conventional dementia medicines such as donepezil or memantine can be tried but usually do not make significant difference. I would suggest memantine 10 mg twice a day and donepezil 10 mg daily. Recently a new dementia at drug for Alzheimer was approved but only for relatively mild dementia or mild cognitive impairment type of patients. She would not qualify for that drug. 08/11 continue current treatment plan Plan 1. Continue same treatment. 2. Waiting for placement. 3. Lower Haldol to 1 mg p.o. q.h.s. on July 28. August 17 we discontinue Haldol at night. 4. August 18 we decided to add a low dose of Adderall 5 mg p.o. b.i.d. to target her hypoactivity. So far, had been a modest improvement of her hypoactive so we increase other up to 10 mg p.o. b.i.d. on August 24. 5. Increase Zoloft up to 150 mg p.o. q.a.m. Plan Continue with same treatment, waiting for placement Reason for continued inpatient stay Substantial Risk for: inability to function, rapid decompensation and med/psych decompensation Time Spent With Patient Time: Total time managing care of this patient today __20__ minutes.
[2023-09-10 18:00] VITALS: BP 117/64; PULSE 79; RESP 20; TEMP 36.3; O2SAT 98
[2023-09-10 20:58] LABS: Glucose, Whole Blood 163 mg/dL (60-115)
[2023-09-11 07:55] VITALS: BP 120/56; PULSE 74; RESP 18; TEMP 36.2; O2SAT 100
[2023-09-11] MEDS: Sertraline HCL 50 MG TABLET 150 MG PO (09:06)
[2023-09-11] MEDS: Atorvastatin Calcium 40 MG TABLET PO (09:07)
[2023-09-11] MEDS: Magnesium Oxide 400 MG TABLET PO ×2 (09:07→16:38)
[2023-09-11] MEDS: Memantine HCl 10 MG TABLET PO ×2 (09:07→20:59)
[2023-09-11] MEDS: metFORMIN HCl 1,000 MG TABLET 1000 MG PO ×2 (09:07→20:59)
[2023-09-11] MEDS: Amphetamine Mixed Salts 10 MG TABLET PO ×2 (09:08→16:39)
[2023-09-11] MEDS: Famotidine 20 MG TABLET PO (09:08)
[2023-09-11] MEDS: Insulin Glargine,Hum.rec.anlog 100 UNIT/ML 10 ML VIAL 6 UNIT SUBCUT (09:08)
[2023-09-11] MEDS: Empagliflozin 25 MG TABLET PO (09:08)
--- NOTE | 2023-09-11 14:38 | HO.PSYCHPN ---
Subjective Subjective Date of Service: 09/11/23 Reason For Visit: hallucinations confusion Subjective Notes: Conditional Voluntary Interim History: The nursing staff reported the patient had been pleasantly confused compliant with treatment. Today on interview the patient ask about discharge and explained her that we are applying for that. She looks male awake alert. Mental Status Exam Mental Status Exam Patient Appearance: Well Grooomed and Appropriate Patient Orientation: Person and Situation Level of Consciousness: Awake and Appropriate Patient Behavior: Guarded and Passive Mood Description: Withdrawn Affect Description: Constricted Patient Cognition Impaired: Yes Ability to Follow Directions: Good Speech Pattern: Clear Hallucinations: None Delusions: Not Present Thought Process: Distracted Thought Content: positive for [place] and positive for Poverty of Content Judgement: Poor Diagnostics Vital Signs (24Hr): Vital Signs - 24 hr 09/10/23 18:00 09/11/23 07:55 Temperature 97.3 F 97.2 F Pulse Rate 79 74 Respiratory Rate 20 18 Blood Pressure 117/64 120/56 L Pulse Oximetry 98 100 Oxygen Delivery Method Room Air Room Air BMI result Body Mass Index 26.2 Labs 09/04/23 07:52 09/07/23 06:45 Labs: Laboratory Results - last 48 hr 09/10/23 20:39 POC Glucose 163 H Imaging Radiology Impressions: ITS Impressions Brain MRI 04/03/23 15:30 IMPRESSION: No acute infarct, mass lesion, intracranial hemorrhage, or evidence of hydrocephalus. Mild nonspecific T2/FLAIR hyperintensity in the cerebral white matter and danny presumably on the basis of chronic microangiopathy. Cervical Spine CT 07/03/23 20:12 IMPRESSION: No acute findings within the cervical spine. The cervical central canal is not well assessed on this CT due to artifact. If weakness persists, a cervical spine MRI would be more sensitive in assessment. Medications Medications Current Medications Acetaminophen (Acetaminophen 325 Mg Tablet) 650 mg PO Q6H PRN PRN Reason: Headache/Pain Mild Scale (1-3) Last Admin: 08/31/23 21:38 Dose: 650 mg Al Hydroxide/Mg Hydroxide (Magnesium Hydrox/Alum Hydrox 30 Ml Oral.Susp) 30 ml PO Q6H PRN PRN Reason: Heartburn/Nausea Amphetamine/Dextroamphetamine (Amphetamine Mixed Salts 10 Mg Tablet) 10 mg PO BID@0800,1700 [facility] Last Admin: 09/11/23 09:08 Dose: 10 mg Atorvastatin Calcium (Atorvastatin Calcium 40 Mg Tablet) 40 mg PO DAILY [facility] Last Admin: 09/11/23 09:07 Dose: 40 mg Empagliflozin (Empagliflozin 25 Mg Tablet) 25 mg PO DAILY [facility] Last Admin: 09/11/23 09:08 Dose: 25 mg Famotidine (Famotidine 20 Mg Tablet) 20 mg PO DAILY [facility] Last Admin: 09/11/23 09:08 Dose: 20 mg Ibuprofen (Ibuprofen 600 Mg Tablet) 600 mg PO Q6H PRN PRN Reason: pain not relieved by tylenol Last Admin: 09/09/23 21:02 Dose: 600 mg Insulin Glargine (Insulin Glargine,Hum.Rec.Anlog 100 Unit/Ml 10 Ml Vial) 6 unit SUBCUT DAILY [facility] Last Admin: 09/11/23 09:08 Dose: 6 unit Loperamide HCl (Loperamide Hcl 2 Mg Capsule) 2 mg PO Q6H PRN PRN Reason: Loose Stool Last Admin: 08/07/23 14:48 Dose: 2 mg Magnesium Hydroxide (Milk Of Magnesia 30 Ml Oral.Susp) 30 ml PO DAILY PRN PRN Reason: Constipation Magnesium Oxide ([facility] 400 Mg Tablet) [facility] Last Admin: 09/11/23 09:07 Dose: 400 mg Memantine (Memantine Hcl 10 Mg Tablet) 10 mg PO BID [facility] Last Admin: 09/11/23 09:07 Dose: 10 mg Metformin HCl (Metformin Hcl 1,000 Mg Tablet) 1,000 mg PO BID [facility] Last Admin: 09/11/23 09:07 Dose: 1,000 mg Olanzapine (Olanzapine 2.5 Mg Tablet) 2.5 mg PO Q4H PRN PRN Reason: anxiety/agitation Last Admin: 09/04/23 00:20 Dose: 2.5 mg Sertraline HCl (Sertraline Hcl 50 Mg Tablet) 150 mg PO DAILY [facility] Last Admin: 09/11/23 09:06 Dose: 150 mg Trazodone HCl (Trazodone Hcl 50 Mg Tablet) 50 mg PO BEDTIME MRX1 PRN PRN Reason: Insomnia Last Admin: 09/09/23 21:02 Dose: 50 mg Allergies Allergies Allergy/AdvReac Type Severity Reaction Status Date / Time No Known Allergies Allergy Verified 03/23/23 18:13 Assessment & Plan Assessment & Plan (1) Alzheimer's dementia: Status: Acute Code(s): G30.9 - Alzheimer's disease, unspecified; F02.80 - Dementia in other diseases classified elsewhere, unspecified severity, without behavioral disturbance, psychotic disturbance, mood disturbance, and anxiety Assessment and Plan: August 24 58 years old woman with relative young age onset at Alzheimer dementia but overall clinical picture is affected by significant depression, which continues to be the predominant feature of for clinical picture. Conventional dementia medicines such as donepezil or memantine can be tried but usually do not make significant difference. I would suggest memantine 10 mg twice a day and donepezil 10 mg daily. Recently a new dementia at drug for Alzheimer was approved but only for relatively mild dementia or mild cognitive impairment type of patients. She would not qualify for that drug. 08/11 continue current treatment plan Plan 1. Continue same treatment. 2. Waiting for placement. 3. Lower Haldol to 1 mg p.o. q.h.s. on July 28. August 17 we discontinue Haldol at night. 4. August 18 we decided to add a low dose of Adderall 5 mg p.o. b.i.d. to target her hypoactivity. So far, had been a modest improvement of her hypoactive so we increase other up to 10 mg p.o. b.i.d. on August 24. 5. Increase Zoloft up to 150 mg p.o. q.a.m. Plan Continue with same treatment, waiting for placement Reason for continued inpatient stay Substantial Risk for: inability to function, rapid decompensation and med/psych decompensation Time Spent With Patient Time: Total time managing care of this patient today __20__ minutes.
[2023-09-12 11:40] VITALS: BP 103/70; PULSE 73; RESP 16; TEMP 36.8; O2SAT 97
[2023-09-12] MEDS: Famotidine 20 MG TABLET PO (11:41)
[2023-09-12] MEDS: Magnesium Oxide 400 MG TABLET PO ×2 (11:41→16:54)
[2023-09-12] MEDS: Amphetamine Mixed Salts 10 MG TABLET PO ×2 (11:42→16:54)
[2023-09-12] MEDS: metFORMIN HCl 1,000 MG TABLET 1000 MG PO ×2 (11:42→20:19)
[2023-09-12] MEDS: Atorvastatin Calcium 40 MG TABLET PO (11:42)
[2023-09-12] MEDS: Memantine HCl 10 MG TABLET PO ×2 (11:42→20:19)
[2023-09-12] MEDS: Empagliflozin 25 MG TABLET PO (11:42)
[2023-09-12] MEDS: Insulin Glargine,Hum.rec.anlog 100 UNIT/ML 10 ML VIAL 6 UNIT SUBCUT (11:42)
[2023-09-12] MEDS: Sertraline HCL 50 MG TABLET 150 MG PO (11:42)
--- NOTE | 2023-09-12 11:54 | PC.NURSE ---
THIS NURSE OBSERVED THIS PT LISTING TO THE LEFT. NO OTHER NEUROLOGICAL CONCERNS NOTED. CONCERN REPORTED TO DR. BOOTH VIA TIGER TEXT, AT [id number] TODAY.
--- NOTE | 2023-09-12 12:18 | HO.PSYCHPN ---
Subjective Subjective Date of Service: 09/12/23 Reason For Visit: hallucinations confusion Subjective Notes: Conditional Voluntary Interim History: The nursing staff reported the patient had been compliant with treatment, she is more awake and alert, pacing in the community. The hospital social worker reported that she has trying to get financial clearance so she can be transfer. On interview the patient denies new symptoms more pleasant and awake and alert. Mental Status Exam Mental Status Exam Patient Appearance: Well Grooomed and Appropriate Patient Orientation: Person and Situation Level of Consciousness: Awake and Appropriate Patient Behavior: Guarded and Passive Mood Description: Withdrawn Affect Description: Constricted Patient Cognition Impaired: Yes Ability to Follow Directions: Good Speech Pattern: Clear Hallucinations: None Delusions: Paranoid Ideation Thought Process: Linear Thought Content: positive for Circumstantial Judgement: Poor Diagnostics Vital Signs (24Hr): Vital Signs - 24 hr 09/12/23 11:40 Temperature 98.2 F Pulse Rate 73 Respiratory Rate 16 Blood Pressure 103/70 Pulse Oximetry 97 Oxygen Delivery Method Room Air BMI result Body Mass Index 26.2 Labs 09/04/23 07:52 09/07/23 06:45 Labs: Laboratory Results - last 48 hr 09/10/23 20:39 POC Glucose 163 H Imaging Radiology Impressions: ITS Impressions Brain MRI 04/03/23 15:30 IMPRESSION: No acute infarct, mass lesion, intracranial hemorrhage, or evidence of hydrocephalus. Mild nonspecific T2/FLAIR hyperintensity in the cerebral white matter and danny presumably on the basis of chronic microangiopathy. Cervical Spine CT 07/03/23 20:12 IMPRESSION: No acute findings within the cervical spine. The cervical central canal is not well assessed on this CT due to artifact. If weakness persists, a cervical spine MRI would be more sensitive in assessment. Medications Medications Current Medications Acetaminophen (Acetaminophen 325 Mg Tablet) 650 mg PO Q6H PRN PRN Reason: Headache/Pain Mild Scale (1-3) Last Admin: 08/31/23 21:38 Dose: 650 mg Al Hydroxide/Mg Hydroxide (Magnesium Hydrox/Alum Hydrox 30 Ml Oral.Susp) 30 ml PO Q6H PRN PRN Reason: Heartburn/Nausea Amphetamine/Dextroamphetamine (Amphetamine Mixed Salts 10 Mg Tablet) 10 mg PO BID@0800,1700 [facility] Last Admin: 09/12/23 11:42 Dose: 10 mg Atorvastatin Calcium (Atorvastatin Calcium 40 Mg Tablet) 40 mg PO DAILY [facility] Last Admin: 09/12/23 11:42 Dose: 40 mg Empagliflozin (Empagliflozin 25 Mg Tablet) 25 mg PO DAILY [facility] Last Admin: 09/12/23 11:42 Dose: 25 mg Famotidine (Famotidine 20 Mg Tablet) 20 mg PO DAILY [facility] Last Admin: 09/12/23 11:41 Dose: 20 mg Ibuprofen (Ibuprofen 600 Mg Tablet) 600 mg PO Q6H PRN PRN Reason: pain not relieved by tylenol Last Admin: 09/09/23 21:02 Dose: 600 mg Insulin Glargine (Insulin Glargine,Hum.Rec.Anlog 100 Unit/Ml 10 Ml Vial) 6 unit SUBCUT DAILY [facility] Last Admin: 09/12/23 11:42 Dose: 6 unit Loperamide HCl (Loperamide Hcl 2 Mg Capsule) 2 mg PO Q6H PRN PRN Reason: Loose Stool Last Admin: 08/07/23 14:48 Dose: 2 mg Magnesium Hydroxide (Milk Of Magnesia 30 Ml Oral.Susp) 30 ml PO DAILY PRN PRN Reason: Constipation Magnesium Oxide ([facility] 400 Mg Tablet) [facility] Last Admin: 09/12/23 11:41 Dose: 400 mg Memantine (Memantine Hcl 10 Mg Tablet) 10 mg PO BID [facility] Last Admin: 09/12/23 11:42 Dose: 10 mg Metformin HCl (Metformin Hcl 1,000 Mg Tablet) 1,000 mg PO BID [facility] Last Admin: 09/12/23 11:42 Dose: 1,000 mg Olanzapine (Olanzapine 2.5 Mg Tablet) 2.5 mg PO Q4H PRN PRN Reason: anxiety/agitation Last Admin: 09/04/23 00:20 Dose: 2.5 mg Sertraline HCl (Sertraline Hcl 50 Mg Tablet) 150 mg PO DAILY [facility] Last Admin: 09/12/23 11:42 Dose: 150 mg Trazodone HCl (Trazodone Hcl 50 Mg Tablet) 50 mg PO BEDTIME MRX1 PRN PRN Reason: Insomnia Last Admin: 09/09/23 21:02 Dose: 50 mg Allergies Allergies Allergy/AdvReac Type Severity Reaction Status Date / Time No Known Allergies Allergy Verified 03/23/23 18:13 Assessment & Plan Assessment & Plan (1) Alzheimer's dementia: Status: Acute Code(s): G30.9 - Alzheimer's disease, unspecified; F02.80 - Dementia in other diseases classified elsewhere, unspecified severity, without behavioral disturbance, psychotic disturbance, mood disturbance, and anxiety Assessment and Plan: August 24 58 years old woman with relative young age onset at Alzheimer dementia but overall clinical picture is affected by significant depression, which continues to be the predominant feature of for clinical picture. Conventional dementia medicines such as donepezil or memantine can be tried but usually do not make significant difference. I would suggest memantine 10 mg twice a day and donepezil 10 mg daily. Recently a new dementia at drug for Alzheimer was approved but only for relatively mild dementia or mild cognitive impairment type of patients. She would not qualify for that drug. 08/11 continue current treatment plan Plan 1. Continue same treatment. 2. Waiting for placement. 3. Lower Haldol to 1 mg p.o. q.h.s. on July 28. August 17 we discontinue Haldol at night. 4. August 18 we decided to add a low dose of Adderall 5 mg p.o. b.i.d. to target her hypoactivity. So far, had been a modest improvement of her hypoactive so we increase other up to 10 mg p.o. b.i.d. on August 24. 5. Increase Zoloft up to 150 mg p.o. q.a.m. Plan Continue with same treatment, waiting for placement Reason for continued inpatient stay Substantial Risk for: inability to function, rapid decompensation and med/psych decompensation Time Spent With Patient Time: Total time managing care of this patient today __20__ minutes.
[2023-09-12 19:35] VITALS: BP 126/78; PULSE 73; RESP 16; TEMP 36.2; O2SAT 98
[2023-09-12] MEDS: traZODone HCL 50 MG TABLET PO (20:19)
[2023-09-13 08:17] VITALS: BP 123/90; PULSE 73; RESP 15; TEMP 36.8; O2SAT 96
[2023-09-13] MEDS: Insulin Glargine,Hum.rec.anlog 100 UNIT/ML 10 ML VIAL 6 UNIT SUBCUT (08:19)
[2023-09-13] MEDS: Atorvastatin Calcium 40 MG TABLET PO (08:20)
[2023-09-13] MEDS: Acetaminophen 325 MG TABLET 650 MG PO ×2 (08:21→20:45)
[2023-09-13] MEDS: Magnesium Oxide 400 MG TABLET PO ×2 (08:21→16:57)
[2023-09-13] MEDS: Sertraline HCL 50 MG TABLET 150 MG PO (08:21)
[2023-09-13] MEDS: Memantine HCl 10 MG TABLET PO ×2 (08:21→20:45)
[2023-09-13] MEDS: Famotidine 20 MG TABLET PO (08:21)
[2023-09-13] MEDS: metFORMIN HCl 1,000 MG TABLET 1000 MG PO ×2 (08:21→20:45)
[2023-09-13] MEDS: Empagliflozin 25 MG TABLET PO (08:21)
[2023-09-13] MEDS: Amphetamine Mixed Salts 10 MG TABLET PO ×2 (08:21→16:57)
[2023-09-13 11:11] VITALS: BP 119/66; PULSE 75; RESP 16; TEMP 36.4; O2SAT 97
[2023-09-13 11:48] VITALS: BP 126/65
[2023-09-13 11:50] LABS: Glucose, Whole Blood 123 mg/dL (60-115)
[2023-09-13 18:00] VITALS: BP 131/71; PULSE 77; RESP 16; TEMP 36.3; O2SAT 96
--- NOTE | 2023-09-13 19:04 | PC.NURSE ---
THIS PT WAS IN GROUP ROOM AND HAD A WITNESSED FALL. OT STAFF WAS ABLE TO BREAK THE FALL, AND PREVENT PT FROM HITTING HER HEAD. PT WAS AROUND A LARGE BOARD AND GOT TO CLOSE TO IT. PT DENIED ANY PAIN OR CONCERNS. VSS AND BG STABLE AT THIS TIME, CHECKED DIRECTLY AFTER FALL. PROVIDER WAS NOTIFIED IN PERSON SHE WAS ON THE UNIT AT THE TIME OF THE FALL.
[2023-09-13] MEDS: traZODone HCL 50 MG TABLET PO ×2 (20:46→23:03)
--- NOTE | 2023-09-13 22:20 | P.PNPSI_ITS ---
Subjective Subjective Date of Service: 09/13/23 Reason For Visit: hallucinations confusion Subjective Notes: Conditional Voluntary Interim History: The nursing staff reported the patient had been compliant with treatment, she is more awake and alert, pacing in the community. Seems common cooperative Medication Compliance: Yes Mental Status Exam Mental Status Exam Patient Appearance: Well Grooomed and Appropriate Patient Orientation: Person and Situation Level of Consciousness: Awake and Appropriate Patient Behavior: Guarded and Passive Mood Description: Withdrawn Affect Description: Constricted Patient Cognition Impaired: Yes Ability to Follow Directions: Good Speech Pattern: Clear Hallucinations: None Delusions: Paranoid Ideation Thought Process: Linear Thought Content: positive for Circumstantial Judgement: Poor Diagnostics Vital Signs (24Hr): Vital Signs - 24 hr 09/13/23 08:17 09/13/23 11:11 09/13/23 11:48 Temperature 98.3 F 97.6 F Pulse Rate 73 75 Respiratory Rate 15 16 Blood Pressure 123/90 H 119/66 126/65 Pulse Oximetry 96 97 Oxygen Delivery Method Room Air Room Air BMI result Body Mass Index 26.2 Labs 09/04/23 07:52 09/07/23 06:45 Labs: Laboratory Results - last 48 hr 09/13/23 11:18 POC Glucose 123 H Imaging Radiology Impressions: ITS Impressions Brain MRI 04/03/23 15:30 IMPRESSION: No acute infarct, mass lesion, intracranial hemorrhage, or evidence of hydrocephalus. Mild nonspecific T2/FLAIR hyperintensity in the cerebral white matter and danny presumably on the basis of chronic microangiopathy. Cervical Spine CT 07/03/23 20:12 IMPRESSION: No acute findings within the cervical spine. The cervical central canal is not well assessed on this CT due to artifact. If weakness persists, a cervical spine MRI would be more sensitive in assessment. Medications Medications Current Medications Acetaminophen (Acetaminophen 325 Mg Tablet) 650 mg PO Q6H PRN PRN Reason: Headache/Pain Mild Scale (1-3) Last Admin: 09/13/23 20:45 Dose: 650 mg Al Hydroxide/Mg Hydroxide (Magnesium Hydrox/Alum Hydrox 30 Ml Oral.Susp) 30 ml PO Q6H PRN PRN Reason: Heartburn/Nausea Amphetamine/Dextroamphetamine (Amphetamine Mixed Salts 10 Mg Tablet) 10 mg PO BID@0800,1700 [facility] Last Admin: 09/13/23 16:57 Dose: 10 mg Atorvastatin Calcium (Atorvastatin Calcium 40 Mg Tablet) 40 mg PO DAILY [facility] Last Admin: 09/13/23 08:20 Dose: 40 mg Empagliflozin (Empagliflozin 25 Mg Tablet) 25 mg PO DAILY [facility] Last Admin: 09/13/23 08:21 Dose: 25 mg Famotidine (Famotidine 20 Mg Tablet) 20 mg PO DAILY [facility] Last Admin: 09/13/23 08:21 Dose: 20 mg Ibuprofen (Ibuprofen 600 Mg Tablet) 600 mg PO Q6H PRN PRN Reason: pain not relieved by tylenol Last Admin: 09/09/23 21:02 Dose: 600 mg Insulin Glargine (Insulin Glargine,Hum.Rec.Anlog 100 Unit/Ml 10 Ml Vial) 6 unit SUBCUT DAILY [facility] Last Admin: 09/13/23 08:19 Dose: 6 unit Loperamide HCl (Loperamide Hcl 2 Mg Capsule) 2 mg PO Q6H PRN PRN Reason: Loose Stool Last Admin: 08/07/23 14:48 Dose: 2 mg Magnesium Hydroxide (Milk Of Magnesia 30 Ml Oral.Susp) 30 ml PO DAILY PRN PRN Reason: Constipation Magnesium Oxide ([facility] 400 Mg Tablet) [facility] Last Admin: 09/13/23 16:57 Dose: 400 mg Memantine (Memantine Hcl 10 Mg Tablet) 10 mg PO BID [facility] Last Admin: 09/13/23 20:45 Dose: 10 mg Metformin HCl (Metformin Hcl 1,000 Mg Tablet) 1,000 mg PO BID [facility] Last Admin: 09/13/23 20:45 Dose: 1,000 mg Olanzapine (Olanzapine 2.5 Mg Tablet) 2.5 mg PO Q4H PRN PRN Reason: anxiety/agitation Last Admin: 09/04/23 00:20 Dose: 2.5 mg Sertraline HCl (Sertraline Hcl 50 Mg Tablet) 150 mg PO DAILY [facility] Last Admin: 09/13/23 08:21 Dose: 150 mg Trazodone HCl (Trazodone Hcl 50 Mg Tablet) 50 mg PO BEDTIME MRX1 PRN PRN Reason: Insomnia Last Admin: 09/13/23 20:46 Dose: 50 mg Allergies Allergies Allergy/AdvReac Type Severity Reaction Status Date / Time No Known Allergies Allergy Verified 03/23/23 18:13 Assessment & Plan Assessment & Plan (1) Alzheimer's dementia: Status: Acute Code(s): G30.9 - Alzheimer's disease, unspecified; F02.80 - Dementia in other diseases classified elsewhere, unspecified severity, without behavioral disturbance, psychotic disturbance, mood disturbance, and anxiety Assessment and Plan: August 24 58 years old woman with relative young age onset at Alzheimer dementia but overall clinical picture is affected by significant depression, which continues to be the predominant feature of for clinical picture. Conventional dementia medicines such as donepezil or memantine can be tried but usually do not make significant difference. I would suggest memantine 10 mg twice a day and donepezil 10 mg daily. Recently a new dementia at drug for Alzheimer was approved but only for relatively mild dementia or mild cognitive impairment type of patients. She would not qualify for that drug. 08/11 continue current treatment plan Plan 1. Continue same treatment. 2. Waiting for placement. 3. Lower Haldol to 1 mg p.o. q.h.s. on July 28. August 17 we discontinue Haldol at night. 4. August 18 we decided to add a low dose of Adderall 5 mg p.o. b.i.d. to target her hypoactivity. So far, had been a modest improvement of her hypoactive so we increase other up to 10 mg p.o. b.i.d. on August 24. 5. Increase Zoloft up to 150 mg p.o. q.a.m. 09/13/2023 Patient seems more alert engaged Plan Continue with same treatment, waiting for placement Reason for continued inpatient stay Substantial Risk for: inability to function and rapid decompensation Time Spent With Patient Time: Total time managing care of this patient today ____ minutes.
[2023-09-13] MEDS: OLANZapine 2.5 MG TABLET PO (23:03)
[2023-09-14 07:00] VITALS: BMI 26.4
[2023-09-14 08:22] LABS: Creatinine Clr Calc Pharmacy 91.5; Estimated Glomerular Filt Rate > 60
[2023-09-14 08:31] VITALS: BP 124/68; PULSE 77; RESP 16; TEMP 37.2; O2SAT 95
[2023-09-14] MEDS: Amphetamine Mixed Salts 10 MG TABLET PO ×2 (08:42→17:00)
[2023-09-14] MEDS: Memantine HCl 10 MG TABLET PO ×2 (08:42→20:23)
[2023-09-14] MEDS: metFORMIN HCl 1,000 MG TABLET 1000 MG PO ×2 (08:42→20:23)
[2023-09-14] MEDS: Atorvastatin Calcium 40 MG TABLET PO (08:42)
[2023-09-14] MEDS: Magnesium Oxide 400 MG TABLET PO ×2 (08:42→17:00)
[2023-09-14] MEDS: Empagliflozin 25 MG TABLET PO (08:42)
[2023-09-14] MEDS: Sertraline HCL 50 MG TABLET 150 MG PO (08:42)
[2023-09-14] MEDS: Famotidine 20 MG TABLET PO (08:42)
[2023-09-14] MEDS: Insulin Glargine,Hum.rec.anlog 100 UNIT/ML 10 ML VIAL 6 UNIT SUBCUT (08:47)
--- NOTE | 2023-09-14 14:04 | HO.PSYCHPN ---
Subjective Subjective Date of Service: 09/14/23 Reason For Visit: hallucinations confusion Subjective Notes: Conditional Voluntary Interim History: The nursing staff reported the patient had been compliant with treatment, she looks a little more active. Yesterday she fell in 1 of the group straight The social scientist reported they did more referrals to snf facilities. On interview the patient denies new symptoms, waiting for placement. Mental Status Exam Mental Status Exam Patient Appearance: Appropriate Patient Orientation: Person Level of Consciousness: Awake Patient Behavior: Guarded and Passive Mood Description: Withdrawn Affect Description: Constricted Patient Cognition Impaired: Yes Ability to Follow Directions: Good Speech Pattern: Clear Hallucinations: None Delusions: Not Present Thought Process: Distracted and Linear Thought Content: positive for [place] and positive for Poverty of Content Judgement: Poor Diagnostics Vital Signs (24Hr): Vital Signs - 24 hr 09/13/23 18:00 09/14/23 08:31 Temperature 97.3 F 98.9 F Pulse Rate 77 77 Respiratory Rate 16 16 Blood Pressure 131/71 124/68 Pulse Oximetry 96 95 Oxygen Delivery Method Room Air Room Air BMI result Body Mass Index 26.4 Labs 09/04/23 07:52 09/14/23 07:58 Labs: Laboratory Results - last 48 hr 09/13/23 09/14/23 11:18 07:58 Creatinine 0.60 Estim Creat Clear Calc 91.5 Estimated GFR > 60 POC Glucose 123 H Imaging Radiology Impressions: ITS Impressions Brain MRI 04/03/23 15:30 IMPRESSION: No acute infarct, mass lesion, intracranial hemorrhage, or evidence of hydrocephalus. Mild nonspecific T2/FLAIR hyperintensity in the cerebral white matter and danny presumably on the basis of chronic microangiopathy. Cervical Spine CT 07/03/23 20:12 IMPRESSION: No acute findings within the cervical spine. The cervical central canal is not well assessed on this CT due to artifact. If weakness persists, a cervical spine MRI would be more sensitive in assessment. Medications Medications Current Medications Acetaminophen (Acetaminophen 325 Mg Tablet) 650 mg PO Q6H PRN PRN Reason: Headache/Pain Mild Scale (1-3) Last Admin: 09/13/23 20:45 Dose: 650 mg Al Hydroxide/Mg Hydroxide (Magnesium Hydrox/Alum Hydrox 30 Ml Oral.Susp) 30 ml PO Q6H PRN PRN Reason: Heartburn/Nausea Amphetamine/Dextroamphetamine (Amphetamine Mixed Salts 10 Mg Tablet) 10 mg PO BID@0800,1700 [facility] Last Admin: 09/14/23 08:42 Dose: 10 mg Atorvastatin Calcium (Atorvastatin Calcium 40 Mg Tablet) 40 mg PO DAILY [facility] Last Admin: 09/14/23 08:42 Dose: 40 mg Empagliflozin (Empagliflozin 25 Mg Tablet) 25 mg PO DAILY [facility] Last Admin: 09/14/23 08:42 Dose: 25 mg Famotidine (Famotidine 20 Mg Tablet) 20 mg PO DAILY [facility] Last Admin: 09/14/23 08:42 Dose: 20 mg Ibuprofen (Ibuprofen 600 Mg Tablet) 600 mg PO Q6H PRN PRN Reason: pain not relieved by tylenol Last Admin: 09/09/23 21:02 Dose: 600 mg Insulin Glargine (Insulin Glargine,Hum.Rec.Anlog 100 Unit/Ml 10 Ml Vial) 6 unit SUBCUT DAILY [facility] Last Admin: 09/14/23 08:47 Dose: 6 unit Loperamide HCl (Loperamide Hcl 2 Mg Capsule) 2 mg PO Q6H PRN PRN Reason: Loose Stool Last Admin: 08/07/23 14:48 Dose: 2 mg Magnesium Hydroxide (Milk Of Magnesia 30 Ml Oral.Susp) 30 ml PO DAILY PRN PRN Reason: Constipation [facility] Ox[facility] ([facility] 400 Mg [facility]t) [facility] Last Admin: 09/14/23 08:42 Dose: 400 mg Memantine (Memantine Hcl 10 Mg Tablet) 10 mg PO BID [facility] Last Admin: 09/14/23 08:42 Dose: 10 mg Metformin HCl (Metformin Hcl 1,000 Mg Tablet) 1,000 mg PO BID [facility] Last Admin: 09/14/23 08:42 Dose: 1,000 mg Olanzapine (Olanzapine 2.5 Mg Tablet) 2.5 mg PO Q4H PRN PRN Reason: anxiety/agitation Last Admin: 09/13/23 23:03 Dose: 2.5 mg Sertraline HCl (Sertraline Hcl 50 Mg Tablet) 150 mg PO DAILY [facility] Last Admin: 09/14/23 08:42 Dose: 150 mg Trazodone HCl (Trazodone Hcl 50 Mg Tablet) 50 mg PO BEDTIME MRX1 PRN PRN Reason: Insomnia Last Admin: 09/13/23 23:03 Dose: 50 mg Allergies Allergies Allergy/AdvReac Type Severity Reaction Status Date / Time No Known Allergies Allergy Verified 03/23/23 18:13 Assessment & Plan Assessment & Plan (1) Alzheimer's dementia: Status: Acute Code(s): G30.9 - Alzheimer's disease, unspecified; F02.80 - Dementia in other diseases classified elsewhere, unspecified severity, without behavioral disturbance, psychotic disturbance, mood disturbance, and anxiety Assessment and Plan: August 24 58 years old woman with relative young age onset at Alzheimer dementia but overall clinical picture is affected by significant depression, which continues to be the predominant feature of for clinical picture. Conventional dementia medicines such as donepezil or memantine can be tried but usually do not make significant difference. I would suggest memantine 10 mg twice a day and donepezil 10 mg daily. Recently a new dementia at drug for Alzheimer was approved but only for relatively mild dementia or mild cognitive impairment type of patients. She would not qualify for that drug. 08/11 continue current treatment plan Plan 1. Continue same treatment. 2. Waiting for placement. 3. Lower Haldol to 1 mg p.o. q.h.s. on July 28. August 17 we discontinue Haldol at night. 4. August 18 we decided to add a low dose of Adderall 5 mg p.o. b.i.d. to target her hypoactivity. So far, had been a modest improvement of her hypoactive so we increase other up to 10 mg p.o. b.i.d. on August 24. 5. Increase Zoloft up to 150 mg p.o. q.a.m. Plan Continue with same treatment, waiting for placement Reason for continued inpatient stay Substantial Risk for: inability to function, rapid decompensation and med/psych decompensation Time Spent With Patient Time: Total time managing care of this patient today __20__ minutes.
[2023-09-14 18:00] VITALS: BP 126/71; PULSE 75; RESP 16; TEMP 36.6; O2SAT 97
[2023-09-14] MEDS: traZODone HCL 50 MG TABLET PO (20:23)
[2023-09-14] MEDS: OLANZapine 2.5 MG TABLET PO (20:23)
[2023-09-15 09:21] VITALS: BP 121/72; PULSE 70; RESP 16; TEMP 37.1; O2SAT 93
[2023-09-15] MEDS: Atorvastatin Calcium 40 MG TABLET PO (09:25)
[2023-09-15] MEDS: Memantine HCl 10 MG TABLET PO ×2 (09:25→20:06)
[2023-09-15] MEDS: Famotidine 20 MG TABLET PO (09:25)
[2023-09-15] MEDS: metFORMIN HCl 1,000 MG TABLET 1000 MG PO ×2 (09:25→20:06)
[2023-09-15] MEDS: Magnesium Oxide 400 MG TABLET PO ×2 (09:25→17:31)
[2023-09-15] MEDS: Empagliflozin 25 MG TABLET PO (09:25)
[2023-09-15] MEDS: Insulin Glargine,Hum.rec.anlog 100 UNIT/ML 10 ML VIAL 6 UNIT SUBCUT (09:25)
[2023-09-15] MEDS: Amphetamine Mixed Salts 10 MG TABLET PO ×2 (09:25→17:31)
[2023-09-15] MEDS: Sertraline HCL 50 MG TABLET 150 MG PO (09:25)
--- NOTE | 2023-09-15 14:32 | P.PNPSI_ITS ---
Subjective Subjective Date of Service: 09/15/23 Reason For Visit: hallucinations confusion Subjective Notes: Conditional Voluntary Interim History: The nursing staff reported no changes in her mental status, fully compliant with treatment and medications. On interview the patient is pleasantly confused, wandering the unit. She looks more active since all was increased and added stimulants. Mental Status Exam Mental Status Exam Patient Appearance: Appropriate Patient Orientation: Person Level of Consciousness: Awake and Appropriate Patient Behavior: Guarded and Passive Mood Description: Withdrawn Affect Description: Constricted Patient Cognition Impaired: Yes Ability to Follow Directions: Good Speech Pattern: Clear Hallucinations: None Delusions: Not Present Thought Process: Distracted and Slowed Thinking Thought Content: positive for [place] and positive for Poverty of Content Judgement: Poor Diagnostics Vital Signs (24Hr): Vital Signs - 24 hr 09/14/23 18:00 09/15/23 09:21 Temperature 97.9 F 98.7 F Pulse Rate 75 70 Respiratory Rate 16 16 Blood Pressure 126/71 121/72 Pulse Oximetry 97 93 Oxygen Delivery Method Room Air Room Air BMI result Body Mass Index 26.4 Labs 09/04/23 07:52 09/14/23 07:58 Labs: Laboratory Results - last 48 hr 09/14/23 07:58 Creatinine 0.60 Estim Creat Clear Calc 91.5 Estimated GFR > 60 Imaging Radiology Impressions: ITS Impressions Brain MRI 04/03/23 15:30 IMPRESSION: No acute infarct, mass lesion, intracranial hemorrhage, or evidence of hydrocephalus. Mild nonspecific T2/FLAIR hyperintensity in the cerebral white matter and danny presumably on the basis of chronic microangiopathy. Cervical Spine CT 07/03/23 20:12 IMPRESSION: No acute findings within the cervical spine. The cervical central canal is not well assessed on this CT due to artifact. If weakness persists, a cervical spine MRI would be more sensitive in assessment. Medications Medications Current Medications Acetaminophen (Acetaminophen 325 Mg Tablet) 650 mg PO Q6H PRN PRN Reason: Headache/Pain Mild Scale (1-3) Last Admin: 09/13/23 20:45 Dose: 650 mg Al Hydroxide/Mg Hydroxide (Magnesium Hydrox/Alum Hydrox 30 Ml Oral.Susp) 30 ml PO Q6H PRN PRN Reason: Heartburn/Nausea Amphetamine/Dextroamphetamine (Amphetamine Mixed Salts 10 Mg Tablet) 10 mg PO BID@0800,1700 [facility] Last Admin: 09/15/23 09:25 Dose: 10 mg Atorvastatin Calcium (Atorvastatin Calcium 40 Mg Tablet) 40 mg PO DAILY [facility] Last Admin: 09/15/23 09:25 Dose: 40 mg Empagliflozin (Empagliflozin 25 Mg Tablet) 25 mg PO DAILY [facility] Last Admin: 09/15/23 09:25 Dose: 25 mg Famotidine (Famotidine 20 Mg Tablet) 20 mg PO DAILY [facility] Last Admin: 09/15/23 09:25 Dose: 20 mg Ibuprofen (Ibuprofen 600 Mg Tablet) 600 mg PO Q6H PRN PRN Reason: pain not relieved by tylenol Last Admin: 09/09/23 21:02 Dose: 600 mg Insulin Glargine (Insulin Glargine,Hum.Rec.Anlog 100 Unit/Ml 10 Ml Vial) 6 unit SUBCUT DAILY [facility] Last Admin: 09/15/23 09:25 Dose: 6 unit Loperamide HCl (Loperamide Hcl 2 Mg Capsule) 2 mg PO Q6H PRN PRN Reason: Loose Stool Last Admin: 08/07/23 14:48 Dose: 2 mg Magnesium Hydroxide (Milk Of Magnesia 30 Ml Oral.Susp) 30 ml PO DAILY PRN PRN Reason: Constipation Magnesium Oxide ([facility] 400 Mg Tablet) [facility] Last Admin: 09/15/23 09:25 Dose: 400 mg Memantine (Memantine Hcl 10 Mg Tablet) 10 mg PO BID [facility] Last Admin: 09/15/23 09:25 Dose: 10 mg Metformin HCl (Metformin Hcl 1,000 Mg Tablet) 1,000 mg PO BID [facility] Last Admin: 09/15/23 09:25 Dose: 1,000 mg Olanzapine (Olanzapine 2.5 Mg Tablet) 2.5 mg PO Q4H PRN PRN Reason: anxiety/agitation Last Admin: 09/14/23 20:23 Dose: 2.5 mg Sertraline HCl (Sertraline Hcl 50 Mg Tablet) 150 mg PO DAILY [facility] Last Admin: 09/15/23 09:25 Dose: 150 mg Trazodone HCl (Trazodone Hcl 50 Mg Tablet) 50 mg PO BEDTIME MRX1 PRN PRN Reason: Insomnia Last Admin: 09/14/23 20:23 Dose: 50 mg Allergies Allergies Allergy/AdvReac Type Severity Reaction Status Date / Time No Known Allergies Allergy Verified 03/23/23 18:13 Assessment & Plan Assessment & Plan (1) Alzheimer's dementia: Status: Acute Code(s): G30.9 - Alzheimer's disease, unspecified; F02.80 - Dementia in other diseases classified elsewhere, unspecified severity, without behavioral disturbance, psychotic disturbance, mood disturbance, and anxiety Assessment and Plan: August 24 58 years old woman with relative young age onset at Alzheimer dementia but overall clinical picture is affected by significant depression, which continues to be the predominant feature of for clinical picture. Conventional dementia medicines such as donepezil or memantine can be tried but usually do not make significant difference. I would suggest memantine 10 mg twice a day and donepezil 10 mg daily. Recently a new dementia at drug for Alzheimer was approved but only for relatively mild dementia or mild cognitive impairment type of patients. She would not qualify for that drug. 08/11 continue current treatment plan Plan 1. Continue same treatment. 2. Waiting for placement. 3. Lower Haldol to 1 mg p.o. q.h.s. on July 28. August 17 we discontinue Haldol at night. 4. August 18 we decided to add a low dose of Adderall 5 mg p.o. b.i.d. to target her hypoactivity. So far, had been a modest improvement of her hypoactive so we increase other up to 10 mg p.o. b.i.d. on August 24. 5. Increase Zoloft up to 150 mg p.o. q.a.m. Plan Continue with same treatment, waiting for placement Reason for continued inpatient stay Substantial Risk for: inability to function, rapid decompensation and med/psych decompensation Time Spent With Patient Time: Total time managing care of this patient today __20__ minutes.
[2023-09-15 18:00] VITALS: BP 133/65; PULSE 87; RESP 16; TEMP 35.5; O2SAT 96
[2023-09-15] MEDS: traZODone HCL 50 MG TABLET PO (20:07)
[2023-09-16 08:31] VITALS: BP 130/61; PULSE 80; RESP 17; TEMP 36.6; O2SAT 95
[2023-09-16] MEDS: Sertraline HCL 50 MG TABLET 150 MG PO (08:37)
[2023-09-16] MEDS: Atorvastatin Calcium 40 MG TABLET PO (08:37)
[2023-09-16] MEDS: Amphetamine Mixed Salts 10 MG TABLET PO ×2 (08:37→17:09)
[2023-09-16] MEDS: metFORMIN HCl 1,000 MG TABLET 1000 MG PO ×2 (08:37→20:46)
[2023-09-16] MEDS: Magnesium Oxide 400 MG TABLET PO ×2 (08:37→17:09)
[2023-09-16] MEDS: Famotidine 20 MG TABLET PO (08:37)
[2023-09-16] MEDS: Memantine HCl 10 MG TABLET PO ×2 (08:37→20:46)
[2023-09-16] MEDS: Empagliflozin 25 MG TABLET PO (08:37)
[2023-09-16] MEDS: Insulin Glargine,Hum.rec.anlog 100 UNIT/ML 10 ML VIAL 6 UNIT SUBCUT (08:42)
--- NOTE | 2023-09-16 11:47 | P.PNPSI_ITS ---
Subjective Subjective Date of Service: 09/16/23 Reason For Visit: hallucinations confusion Interim History: calm, cooperative. neck brace on. no complaints or requests. per staff, no change in presentation. taking meds. Mental Status Exam Mental Status Exam Patient Appearance: Appropriate Patient Orientation: Person Level of Consciousness: Awake and Appropriate Patient Behavior: Guarded and Passive Mood Description: Withdrawn Affect Description: Constricted Patient Cognition Impaired: Yes Ability to Follow Directions: Good Speech Pattern: Clear Hallucinations: None Delusions: Not Present Thought Process: Distracted and Slowed Thinking Thought Content: positive for [place] and positive for Poverty of Content Judgement: Poor Diagnostics Vital Signs (24Hr): Vital Signs - 24 hr 09/15/23 18:00 09/16/23 08:31 Temperature 95.9 F L 97.8 F Pulse Rate 87 80 Respiratory Rate 16 17 Blood Pressure 133/65 130/61 Pulse Oximetry 96 95 Oxygen Delivery Method Room Air Room Air BMI result Body Mass Index 26.4 Labs 09/04/23 07:52 09/14/23 07:58 Imaging Radiology Impressions: ITS Impressions Brain MRI 04/03/23 15:30 IMPRESSION: No acute infarct, mass lesion, intracranial hemorrhage, or evidence of hydrocephalus. Mild nonspecific T2/FLAIR hyperintensity in the cerebral white matter and danny presumably on the basis of chronic microangiopathy. Cervical Spine CT 07/03/23 20:12 IMPRESSION: No acute findings within the cervical spine. The cervical central canal is not well assessed on this CT due to artifact. If weakness persists, a cervical spine MRI would be more sensitive in assessment. Medications Medications Current Medications Acetaminophen (Acetaminophen 325 Mg Tablet) 650 mg PO Q6H PRN PRN Reason: Headache/Pain Mild Scale (1-3) Last Admin: 09/13/23 20:45 Dose: 650 mg Al Hydroxide/Mg Hydroxide (Magnesium Hydrox/Alum Hydrox 30 Ml Oral.Susp) 30 ml PO Q6H PRN PRN Reason: Heartburn/Nausea Amphetamine/Dextroamphetamine (Amphetamine Mixed Salts 10 Mg Tablet) 10 mg PO BID@0800,1700 [facility] Last Admin: 09/16/23 08:37 Dose: 10 mg Atorvastatin Calcium (Atorvastatin Calcium 40 Mg Tablet) 40 mg PO DAILY [facility] Last Admin: 09/16/23 08:37 Dose: 40 mg Empagliflozin (Empagliflozin 25 Mg Tablet) 25 mg PO DAILY [facility] Last Admin: 09/16/23 08:37 Dose: 25 mg Famotidine (Famotidine 20 Mg Tablet) 20 mg PO DAILY [facility] Last Admin: 09/16/23 08:37 Dose: 20 mg Ibuprofen (Ibuprofen 600 Mg Tablet) 600 mg PO Q6H PRN PRN Reason: pain not relieved by tylenol Last Admin: 09/09/23 21:02 Dose: 600 mg Insulin Glargine (Insulin Glargine,Hum.Rec.Anlog 100 Unit/Ml 10 Ml Vial) 6 unit SUBCUT DAILY [facility] Last Admin: 09/16/23 08:42 Dose: 6 unit Loperamide HCl (Loperamide Hcl 2 Mg Capsule) 2 mg PO Q6H PRN PRN Reason: Loose Stool Last Admin: 08/07/23 14:48 Dose: 2 mg Magnesium Hydroxide (Milk Of Magnesia 30 Ml Oral.Susp) 30 ml PO DAILY PRN PRN Reason: Constipation Magnesium Oxide ([facility] 400 Mg Tablet) [facility] Last Admin: 09/16/23 08:37 Dose: 400 mg Memantine (Memantine Hcl 10 Mg Tablet) 10 mg PO BID [facility] Last Admin: 09/16/23 08:37 Dose: 10 mg Metformin HCl (Metformin Hcl 1,000 Mg Tablet) 1,000 mg PO BID [facility] Last Admin: 09/16/23 08:37 Dose: 1,000 mg Olanzapine (Olanzapine 2.5 Mg Tablet) 2.5 mg PO Q4H PRN PRN Reason: anxiety/agitation Last Admin: 09/14/23 20:23 Dose: 2.5 mg Sertraline HCl (Sertraline Hcl 50 Mg Tablet) 150 mg PO DAILY [facility] Last Admin: 09/16/23 08:37 Dose: 150 mg Trazodone HCl (Trazodone Hcl 50 Mg Tablet) 50 mg PO BEDTIME MRX1 PRN PRN Reason: Insomnia Last Admin: 09/15/23 20:07 Dose: 50 mg Allergies Allergies Allergy/AdvReac Type Severity Reaction Status Date / Time No Known Allergies Allergy Verified 03/23/23 18:13 Assessment & Plan Assessment & Plan (1) Alzheimer's dementia: Status: Acute Code(s): G30.9 - Alzheimer's disease, unspecified; F02.80 - Dementia in other diseases classified elsewhere, unspecified severity, without behavioral disturbance, psychotic disturbance, mood disturbance, and anxiety Assessment and Plan: August 24 58 years old woman with relative young age onset at Alzheimer dementia but overall clinical picture is affected by significant depression, which continues to be the predominant feature of for clinical picture. Conventional dementia medicines such as donepezil or memantine can be tried but usually do not make significant difference. I would suggest memantine 10 mg twice a day and donepezil 10 mg daily. Recently a new dementia at drug for Alzheimer was approved but only for relatively mild dementia or mild cognitive impairment type of patients. She would not qualify for that drug. 08/11 continue current treatment plan Plan 1. Continue same treatment. 2. Waiting for placement. 3. Lower Haldol to 1 mg p.o. q.h.s. on July 28. August 17 we discontinue Haldol at night. 4. August 18 we decided to add a low dose of Adderall 5 mg p.o. b.i.d. to target her hypoactivity. So far, had been a modest improvement of her hypoactive so we increase other up to 10 mg p.o. b.i.d. on August 24. 5. Increase Zoloft up to 150 mg p.o. q.a.m. Plan Continue with same treatment, waiting for placement Reason for continued inpatient stay Substantial Risk for: inability to function and rapid decompensation Time Spent With Patient Time: Total time managing care of this patient today ____ minutes.
[2023-09-16] MEDS: traZODone HCL 50 MG TABLET PO (20:46)
[2023-09-17 08:32] VITALS: BP 148/65; PULSE 73; RESP 16; TEMP 36.9; O2SAT 96
[2023-09-17] MEDS: Magnesium Oxide 400 MG TABLET PO ×2 (08:35→16:32)
[2023-09-17] MEDS: Famotidine 20 MG TABLET PO (08:35)
[2023-09-17] MEDS: Empagliflozin 25 MG TABLET PO (08:35)
[2023-09-17] MEDS: Sertraline HCL 50 MG TABLET 150 MG PO (08:35)
[2023-09-17] MEDS: Amphetamine Mixed Salts 10 MG TABLET PO ×2 (08:35→16:32)
[2023-09-17] MEDS: Atorvastatin Calcium 40 MG TABLET PO (08:35)
[2023-09-17] MEDS: metFORMIN HCl 1,000 MG TABLET 1000 MG PO ×2 (08:35→19:49)
[2023-09-17] MEDS: Memantine HCl 10 MG TABLET PO ×2 (08:35→19:49)
[2023-09-17] MEDS: Insulin Glargine,Hum.rec.anlog 100 UNIT/ML 10 ML VIAL 6 UNIT SUBCUT (08:41)
--- NOTE | 2023-09-17 11:52 | HO.PSYCHPN ---
Subjective Subjective Date of Service: 09/17/23 Reason For Visit: hallucinations confusion Interim History: calm, cooperative. neck brace on. upset at mention of her daughter, says daughter won't talk to her. asks, get me out of here. per staff, no change in presentation. Mental Status Exam Mental Status Exam Patient Appearance: Appropriate Patient Orientation: Person Level of Consciousness: Awake and Appropriate Patient Behavior: Guarded and Passive Mood Description: Withdrawn Affect Description: Constricted Patient Cognition Impaired: Yes Ability to Follow Directions: Good Speech Pattern: Clear Hallucinations: None Delusions: Not Present Thought Process: Distracted and Slowed Thinking Thought Content: positive for [place] and positive for Poverty of Content Judgement: Poor Diagnostics Vital Signs (24Hr): Vital Signs - 24 hr 09/17/23 08:32 Temperature 98.4 F Pulse Rate 73 Respiratory Rate 16 Blood Pressure 148/65 H Pulse Oximetry 96 Oxygen Delivery Method Room Air BMI result Body Mass Index 26.4 Labs 09/04/23 07:52 09/14/23 07:58 Imaging Radiology Impressions: ITS Impressions Brain MRI 04/03/23 15:30 IMPRESSION: No acute infarct, mass lesion, intracranial hemorrhage, or evidence of hydrocephalus. Mild nonspecific T2/FLAIR hyperintensity in the cerebral white matter and danny presumably on the basis of chronic microangiopathy. Cervical Spine CT 07/03/23 20:12 IMPRESSION: No acute findings within the cervical spine. The cervical central canal is not well assessed on this CT due to artifact. If weakness persists, a cervical spine MRI would be more sensitive in assessment. Medications Medications Current Medications Acetaminophen (Acetaminophen 325 Mg Tablet) 650 mg PO Q6H PRN PRN Reason: Headache/Pain Mild Scale (1-3) Last Admin: 09/13/23 20:45 Dose: 650 mg Al Hydroxide/Mg Hydroxide (Magnesium Hydrox/Alum Hydrox 30 Ml Oral.Susp) 30 ml PO Q6H PRN PRN Reason: Heartburn/Nausea Amphetamine/Dextroamphetamine (Amphetamine Mixed Salts 10 Mg Tablet) 10 mg PO BID@0800,1700 [facility] Last Admin: 09/17/23 08:35 Dose: 10 mg Atorvastatin Calcium (Atorvastatin Calcium 40 Mg Tablet) 40 mg PO DAILY [facility] Last Admin: 09/17/23 08:35 Dose: 40 mg Empagliflozin (Empagliflozin 25 Mg Tablet) 25 mg PO DAILY [facility] Last Admin: 09/17/23 08:35 Dose: 25 mg Famotidine (Famotidine 20 Mg Tablet) 20 mg PO DAILY [facility] Last Admin: 09/17/23 08:35 Dose: 20 mg Ibuprofen (Ibuprofen 600 Mg Tablet) 600 mg PO Q6H PRN PRN Reason: pain not relieved by tylenol Last Admin: 09/09/23 21:02 Dose: 600 mg Insulin Glargine (Insulin Glargine,Hum.Rec.Anlog 100 Unit/Ml 10 Ml Vial) 6 unit SUBCUT DAILY [facility] Last Admin: 09/17/23 08:41 Dose: 6 unit Loperamide HCl (Loperamide Hcl 2 Mg Capsule) 2 mg PO Q6H PRN PRN Reason: Loose Stool Last Admin: 08/07/23 14:48 Dose: 2 mg Magnesium Hydroxide (Milk Of Magnesia 30 Ml Oral.Susp) 30 ml PO DAILY PRN PRN Reason: Constipation Magnesium Oxide (Magnesium Oxide 400 Mg Tablet) 400 mg PO BIDPC [facility] Last Admin: 09/17/23 08:35 Dose: 400 mg Memantine (Memantine Hcl 10 Mg Tablet) 10 mg PO BID [facility] Last Admin: 09/17/23 08:35 Dose: 10 mg Metformin HCl (Metformin Hcl 1,000 Mg Tablet) 1,000 mg PO BID [facility] Last Admin: 09/17/23 08:35 Dose: 1,000 mg Olanzapine (Olanzapine 2.5 Mg Tablet) 2.5 mg PO Q4H PRN PRN Reason: anxiety/agitation Last Admin: 09/14/23 20:23 Dose: 2.5 mg Sertraline HCl (Sertraline Hcl 50 Mg Tablet) 150 mg PO DAILY [facility] Last Admin: 09/17/23 08:35 Dose: 150 mg Trazodone HCl (Trazodone Hcl 50 Mg Tablet) 50 mg PO BEDTIME MRX1 PRN PRN Reason: Insomnia Last Admin: 09/16/23 20:46 Dose: 50 mg Allergies Allergies Allergy/AdvReac Type Severity Reaction Status Date / Time No Known Allergies Allergy Verified 03/23/23 18:13 Assessment & Plan Assessment & Plan (1) Alzheimer's dementia: Status: Acute Code(s): G30.9 - Alzheimer's disease, unspecified; F02.80 - Dementia in other diseases classified elsewhere, unspecified severity, without behavioral disturbance, psychotic disturbance, mood disturbance, and anxiety Assessment and Plan: August 24 58 years old woman with relative young age onset at Alzheimer dementia but overall clinical picture is affected by significant depression, which continues to be the predominant feature of for clinical picture. Conventional dementia medicines such as donepezil or memantine can be tried but usually do not make significant difference. I would suggest memantine 10 mg twice a day and donepezil 10 mg daily. Recently a new dementia at drug for Alzheimer was approved but only for relatively mild dementia or mild cognitive impairment type of patients. She would not qualify for that drug. 08/11 continue current treatment plan Plan 1. Continue same treatment. 2. Waiting for placement. 3. Lower Haldol to 1 mg p.o. q.h.s. on July 28. August 17 we discontinue Haldol at night. 4. August 18 we decided to add a low dose of Adderall 5 mg p.o. b.i.d. to target her hypoactivity. So far, had been a modest improvement of her hypoactive so we increase other up to 10 mg p.o. b.i.d. on August 24. 5. Increase Zoloft up to 150 mg p.o. q.a.m. Plan Continue with same treatment, waiting for placement Reason for continued inpatient stay Substantial Risk for: inability to function Time Spent With Patient Time: Total time managing care of this patient today ____ minutes.
[2023-09-17 18:00] VITALS: BP 117/72; PULSE 88; RESP 17; TEMP 37; O2SAT 96
[2023-09-17] MEDS: traZODone HCL 50 MG TABLET PO (19:49)
[2023-09-18 08:33] VITALS: BP 136/66; PULSE 79; RESP 16; TEMP 37; O2SAT 97
[2023-09-18] MEDS: Acetaminophen 325 MG TABLET 650 MG PO ×2 (09:03→23:42)
[2023-09-18] MEDS: Famotidine 20 MG TABLET PO (09:04)
[2023-09-18] MEDS: metFORMIN HCl 1,000 MG TABLET 1000 MG PO ×2 (09:04→20:50)
[2023-09-18] MEDS: Amphetamine Mixed Salts 10 MG TABLET PO ×2 (09:04→16:30)
[2023-09-18] MEDS: Magnesium Oxide 400 MG TABLET PO ×2 (09:04→16:30)
[2023-09-18] MEDS: Insulin Glargine,Hum.rec.anlog 100 UNIT/ML 10 ML VIAL 6 UNIT SUBCUT (09:04)
[2023-09-18] MEDS: Atorvastatin Calcium 40 MG TABLET PO (09:04)
[2023-09-18] MEDS: Sertraline HCL 50 MG TABLET 150 MG PO (09:04)
[2023-09-18] MEDS: Memantine HCl 10 MG TABLET PO ×2 (09:04→20:50)
[2023-09-18] MEDS: Empagliflozin 25 MG TABLET PO (09:04)
[2023-09-18] MEDS: Milk of Magnesia 30 ML ORAL.SUSP PO (12:20)
--- NOTE | 2023-09-18 12:59 | HO.PSYCHPN ---
Subjective Subjective Date of Service: 09/18/23 Reason For Visit: hallucinations confusion Subjective Notes: Conditional Voluntary Interim History: The nursing staff reported the patient had been compliant with treatment, no changes in her mental status. On interview the patient reports that she is doing fine confused but easily redirectable, waiting for placement. Mental Status Exam Mental Status Exam Patient Appearance: Appropriate Patient Orientation: Person Level of Consciousness: Awake and Appropriate Patient Behavior: Guarded and Passive Mood Description: Calm Affect Description: Blunted Patient Cognition Impaired: Yes Ability to Follow Directions: Good Speech Pattern: Impoverished Hallucinations: None Delusions: Not Present Thought Process: Distracted and Slowed Thinking Thought Content: positive for [place] and positive for Poverty of Content Judgement: Poor Diagnostics Vital Signs (24Hr): Vital Signs - 24 hr 09/17/23 18:00 09/18/23 08:33 Temperature 98.6 F 98.6 F Pulse Rate 88 79 Respiratory Rate 17 16 Blood Pressure 117/72 136/66 Pulse Oximetry 96 97 Oxygen Delivery Method Room Air Room Air BMI result Body Mass Index 26.4 Labs 09/04/23 07:52 09/14/23 07:58 Imaging Radiology Impressions: ITS Impressions Brain MRI 04/03/23 15:30 IMPRESSION: No acute infarct, mass lesion, intracranial hemorrhage, or evidence of hydrocephalus. Mild nonspecific T2/FLAIR hyperintensity in the cerebral white matter and danny presumably on the basis of chronic microangiopathy. Cervical Spine CT 07/03/23 20:12 IMPRESSION: No acute findings within the cervical spine. The cervical central canal is not well assessed on this CT due to artifact. If weakness persists, a cervical spine MRI would be more sensitive in assessment. Medications Medications Current Medications Acetaminophen (Acetaminophen 325 Mg Tablet) 650 mg PO Q6H PRN PRN Reason: Headache/Pain Mild Scale (1-3) Last Admin: 09/18/23 09:03 Dose: 650 mg Al Hydroxide/Mg Hydroxide (Magnesium Hydrox/Alum Hydrox 30 Ml Oral.Susp) 30 ml PO Q6H PRN PRN Reason: Heartburn/Nausea Amphetamine/Dextroamphetamine (Amphetamine Mixed Salts 10 Mg Tablet) 10 mg PO BID@0800,1700 [facility] Last Admin: 09/18/23 09:04 Dose: 10 mg Atorvastatin Calcium (Atorvastatin Calcium 40 Mg Tablet) 40 mg PO DAILY [facility] Last Admin: 09/18/23 09:04 Dose: 40 mg Empagliflozin (Empagliflozin 25 Mg Tablet) 25 mg PO DAILY [facility] Last Admin: 09/18/23 09:04 Dose: 25 mg Famotidine (Famotidine 20 Mg Tablet) 20 mg PO DAILY [facility] Last Admin: 09/18/23 09:04 Dose: 20 mg Ibuprofen (Ibuprofen 600 Mg Tablet) 600 mg PO Q6H PRN PRN Reason: pain not relieved by tylenol Last Admin: 09/09/23 21:02 Dose: 600 mg Insulin Glargine (Insulin Glargine,Hum.Rec.Anlog 100 Unit/Ml 10 Ml Vial) 6 unit SUBCUT DAILY [facility] Last Admin: 09/18/23 09:04 Dose: 6 unit Loperamide HCl (Loperamide Hcl 2 Mg Capsule) 2 mg PO Q6H PRN PRN Reason: Loose Stool Last Admin: 08/07/23 14:48 Dose: 2 mg Magnesium Hydroxide (Milk Of Magnesia 30 Ml Oral.Susp) 30 ml PO DAILY PRN PRN Reason: Constipation Last Admin: 09/18/23 12:20 Dose: 30 ml Magnesium Oxide (Magnesium Oxide 400 Mg Tablet) [facility] Last Admin: 09/18/23 09:04 Dose: 400 mg Memantine (Memantine Hcl 10 Mg Tablet) 10 mg PO BID [facility] Last Admin: 09/18/23 09:04 Dose: 10 mg Metformin HCl (Metformin Hcl 1,000 Mg Tablet) 1,000 mg PO BID [facility] Last Admin: 09/18/23 09:04 Dose: 1,000 mg Olanzapine (Olanzapine 2.5 Mg Tablet) 2.5 mg PO Q4H PRN PRN Reason: anxiety/agitation Last Admin: 09/14/23 20:23 Dose: 2.5 mg Sertraline HCl (Sertraline Hcl 50 Mg Tablet) 150 mg PO DAILY [facility] Last Admin: 09/18/23 09:04 Dose: 150 mg Trazodone HCl (Trazodone Hcl 50 Mg Tablet) 50 mg PO BEDTIME MRX1 PRN PRN Reason: Insomnia Last Admin: 09/17/23 19:49 Dose: 50 mg Allergies Allergies Allergy/AdvReac Type Severity Reaction Status Date / Time No Known Allergies Allergy Verified 03/23/23 18:13 Assessment & Plan Assessment & Plan (1) Alzheimer's dementia: Status: Acute Code(s): G30.9 - Alzheimer's disease, unspecified; F02.80 - Dementia in other diseases classified elsewhere, unspecified severity, without behavioral disturbance, psychotic disturbance, mood disturbance, and anxiety Assessment and Plan: August 24 58 years old woman with relative young age onset at Alzheimer dementia but overall clinical picture is affected by significant depression, which continues to be the predominant feature of for clinical picture. Conventional dementia medicines such as donepezil or memantine can be tried but usually do not make significant difference. I would suggest memantine 10 mg twice a day and donepezil 10 mg daily. Recently a new dementia at drug for Alzheimer was approved but only for relatively mild dementia or mild cognitive impairment type of patients. She would not qualify for that drug. 08/11 continue current treatment plan Plan 1. Continue same treatment. 2. Waiting for placement. 3. Lower Haldol to 1 mg p.o. q.h.s. on July 28. August 17 we discontinue Haldol at night. 4. August 18 we decided to add a low dose of Adderall 5 mg p.o. b.i.d. to target her hypoactivity. So far, had been a modest improvement of her hypoactive so we increase other up to 10 mg p.o. b.i.d. on August 24. 5. Increase Zoloft up to 150 mg p.o. q.a.m. Plan Continue with same treatment, waiting for placement Reason for continued inpatient stay Substantial Risk for: inability to function, rapid decompensation and med/psych decompensation Time Spent With Patient Time: Total time managing care of this patient today __20__ minutes.
[2023-09-18 18:00] VITALS: BP 123/69; PULSE 88; RESP 16; O2SAT 97
[2023-09-18] MEDS: traZODone HCL 50 MG TABLET PO ×2 (20:50→23:43)
[2023-09-18] MEDS: OLANZapine 2.5 MG TABLET PO (23:43)
[2023-09-19 08:43] VITALS: BP 116/66; PULSE 82; RESP 18; TEMP 36.6; O2SAT 96
[2023-09-19] MEDS: Famotidine 20 MG TABLET PO (08:46)
[2023-09-19] MEDS: Sertraline HCL 50 MG TABLET 150 MG PO (08:46)
[2023-09-19] MEDS: Empagliflozin 25 MG TABLET PO (08:46)
[2023-09-19] MEDS: Magnesium Oxide 400 MG TABLET PO ×2 (08:46→16:49)
[2023-09-19] MEDS: Amphetamine Mixed Salts 10 MG TABLET PO ×2 (08:47→16:49)
[2023-09-19] MEDS: Atorvastatin Calcium 40 MG TABLET PO (08:47)
[2023-09-19] MEDS: Memantine HCl 10 MG TABLET PO ×2 (08:47→21:34)
[2023-09-19] MEDS: Insulin Glargine,Hum.rec.anlog 100 UNIT/ML 10 ML VIAL 6 UNIT SUBCUT (08:47)
[2023-09-19] MEDS: metFORMIN HCl 1,000 MG TABLET 1000 MG PO ×2 (08:47→21:34)
--- NOTE | 2023-09-19 13:41 | P.PNPSI_ITS ---
Subjective Subjective Date of Service: 09/19/23 Reason For Visit: hallucinations confusion Subjective Notes: Conditional Voluntary Interim History: The nursing staff reported the patient had been pleasant, wandering the unit, no changes in her mental status. On interview the patient denies new symptoms, waiting for placement. Mental Status Exam Mental Status Exam Patient Appearance: Well Grooomed and Appropriate Patient Orientation: Person and Situation Level of Consciousness: Awake and Appropriate Patient Behavior: Guarded and Passive Mood Description: Calm Affect Description: Constricted Patient Cognition Impaired: Yes Ability to Follow Directions: Good Speech Pattern: Clear Hallucinations: None Delusions: Not Present Thought Process: Distracted and Evasive Thought Content: positive for [place] and positive for Poverty of Content Judgement: Fair Diagnostics Vital Signs (24Hr): Vital Signs - 24 hr 09/18/23 18:00 09/19/23 08:43 Temperature 98 F Pulse Rate 88 82 Respiratory Rate 16 18 Blood Pressure 123/69 116/66 Pulse Oximetry 97 96 Oxygen Delivery Method Room Air Room Air BMI result Body Mass Index 26.4 Labs 09/04/23 07:52 09/14/23 07:58 Imaging Radiology Impressions: ITS Impressions Brain MRI 04/03/23 15:30 IMPRESSION: No acute infarct, mass lesion, intracranial hemorrhage, or evidence of hydrocephalus. Mild nonspecific T2/FLAIR hyperintensity in the cerebral white matter and danny presumably on the basis of chronic microangiopathy. Cervical Spine CT 07/03/23 20:12 IMPRESSION: No acute findings within the cervical spine. The cervical central canal is not well assessed on this CT due to artifact. If weakness persists, a cervical spine MRI would be more sensitive in assessment. Medications Medications Current Medications Acetaminophen (Acetaminophen 325 Mg Tablet) 650 mg PO Q6H PRN PRN Reason: Headache/Pain Mild Scale (1-3) Last Admin: 09/18/23 23:42 Dose: 650 mg Al Hydroxide/Mg Hydroxide (Magnesium Hydrox/Alum Hydrox 30 Ml Oral.Susp) 30 ml PO Q6H PRN PRN Reason: Heartburn/Nausea Amphetamine/Dextroamphetamine (Amphetamine Mixed Salts 10 Mg Tablet) 10 mg PO BID@0800,1700 [facility] Last Admin: 09/19/23 08:47 Dose: 10 mg Atorvastatin Calcium (Atorvastatin Calcium 40 Mg Tablet) 40 mg PO DAILY [facility] Last Admin: 09/19/23 08:47 Dose: 40 mg Empagliflozin (Empagliflozin 25 Mg Tablet) 25 mg PO DAILY [facility] Last Admin: 09/19/23 08:46 Dose: 25 mg Famotidine (Famotidine 20 Mg Tablet) 20 mg PO DAILY [facility] Last Admin: 09/19/23 08:46 Dose: 20 mg Ibuprofen (Ibuprofen 600 Mg Tablet) 600 mg PO Q6H PRN PRN Reason: pain not relieved by tylenol Last Admin: 09/09/23 21:02 Dose: 600 mg Insulin Glargine (Insulin Glargine,Hum.Rec.Anlog 100 Unit/Ml 10 Ml Vial) 6 unit SUBCUT DAILY [facility] Last Admin: 09/19/23 08:47 Dose: 6 unit Loperamide HCl (Loperamide Hcl 2 Mg Capsule) 2 mg PO Q6H PRN PRN Reason: Loose Stool Last Admin: 08/07/23 14:48 Dose: 2 mg Magnesium Hydroxide (Milk Of Magnesia 30 Ml Oral.Susp) 30 ml PO DAILY PRN PRN Reason: Constipation Last Admin: 09/18/23 12:20 Dose: 30 ml Magnesium Oxide (Magn[facility] 400 Mg Tablet) [facility] Last Admin: 09/19/23 08:46 Dose: 400 mg Memantine (Memantine Hcl 10 Mg Tablet) 10 mg PO BID [facility] Last Admin: 09/19/23 08:47 Dose: 10 mg Metformin HCl (Metformin Hcl 1,000 Mg Tablet) 1,000 mg PO BID [facility] Last Admin: 09/19/23 08:47 Dose: 1,000 mg Olanzapine (Olanzapine 2.5 Mg Tablet) 2.5 mg PO Q4H PRN PRN Reason: anxiety/agitation Last Admin: 09/18/23 23:43 Dose: 2.5 mg Sertraline HCl (Sertraline Hcl 50 Mg Tablet) 150 mg PO DAILY [facility] Last Admin: 09/19/23 08:46 Dose: 150 mg Trazodone HCl (Trazodone Hcl 50 Mg Tablet) 50 mg PO BEDTIME MRX1 PRN PRN Reason: Insomnia Last Admin: 09/18/23 23:43 Dose: 50 mg Allergies Allergies Allergy/AdvReac Type Severity Reaction Status Date / Time No Known Allergies Allergy Verified 03/23/23 18:13 Assessment & Plan Assessment & Plan (1) Alzheimer's dementia: Status: Acute Code(s): G30.9 - Alzheimer's disease, unspecified; F02.80 - Dementia in other diseases classified elsewhere, unspecified severity, without behavioral disturbance, psychotic disturbance, mood disturbance, and anxiety Assessment and Plan: August 24 58 years old woman with relative young age onset at Alzheimer dementia but overall clinical picture is affected by significant depression, which continues to be the predominant feature of for clinical picture. Conventional dementia medicines such as donepezil or memantine can be tried but usually do not make significant difference. I would suggest memantine 10 mg twice a day and donepezil 10 mg daily. Recently a new dementia at drug for Alzheimer was approved but only for relatively mild dementia or mild cognitive impairment type of patients. She would not qualify for that drug. 08/11 continue current treatment plan Plan 1. Continue same treatment. 2. Waiting for placement. 3. Lower Haldol to 1 mg p.o. q.h.s. on July 28. August 17 we discontinue Haldol at night. 4. August 18 we decided to add a low dose of Adderall 5 mg p.o. b.i.d. to target her hypoactivity. So far, had been a modest improvement of her hypoactive so we increase other up to 10 mg p.o. b.i.d. on August 24. 5. Increase Zoloft up to 150 mg p.o. q.a.m. Plan Continue with same treatment, waiting for placement Reason for continued inpatient stay Substantial Risk for: inability to function, rapid decompensation and med/psych decompensation Time Spent With Patient Time: Total time managing care of this patient today __20__ minutes.
[2023-09-19] MEDS: bisacodyL 10 MG SUPP.RECT PR (17:27)
[2023-09-19 18:00] VITALS: BP 136/85; PULSE 94; RESP 16; TEMP 36.6; O2SAT 98
[2023-09-19] MEDS: Ibuprofen 600 MG TABLET PO (19:52)
[2023-09-19] MEDS: Acetaminophen 325 MG TABLET 650 MG PO (19:52)
[2023-09-19] MEDS: traZODone HCL 50 MG TABLET PO (21:34)
[2023-09-20 08:21] VITALS: BP 139/70; PULSE 75; RESP 16; TEMP 36.6; O2SAT 96
[2023-09-20] MEDS: Insulin Glargine,Hum.rec.anlog 100 UNIT/ML 10 ML VIAL 6 UNIT SUBCUT (08:26)
[2023-09-20] MEDS: metFORMIN HCl 1,000 MG TABLET 1000 MG PO ×2 (08:26→22:19)
[2023-09-20] MEDS: Amphetamine Mixed Salts 10 MG TABLET PO ×2 (08:26→16:56)
[2023-09-20] MEDS: Memantine HCl 10 MG TABLET PO ×2 (08:26→22:19)
[2023-09-20] MEDS: Sertraline HCL 50 MG TABLET 150 MG PO (08:26)
[2023-09-20] MEDS: Atorvastatin Calcium 40 MG TABLET PO (08:26)
[2023-09-20] MEDS: Empagliflozin 25 MG TABLET PO (08:26)
[2023-09-20] MEDS: Famotidine 20 MG TABLET PO (08:26)
[2023-09-20] MEDS: Magnesium Oxide 400 MG TABLET PO ×2 (08:26→16:56)
--- NOTE | 2023-09-20 14:06 | HO.PSYCHPN ---
Subjective Subjective Date of Service: 09/20/23 Reason For Visit: hallucinations confusion Subjective Notes: Conditional Voluntary Interim History: The nursing staff reported no changes in her mental status, compliant with treatment. On interview the patient denies new symptoms, waiting for placement. Mental Status Exam Mental Status Exam Patient Appearance: Well Grooomed and Appropriate Patient Orientation: Person and Situation Level of Consciousness: Awake and Appropriate Patient Behavior: Guarded and Passive Mood Description: Withdrawn Affect Description: Constricted Patient Cognition Impaired: Yes Ability to Follow Directions: Good Speech Pattern: Clear Hallucinations: None Delusions: Not Present Thought Process: Distracted and Slowed Thinking Thought Content: positive for [place] and positive for Poverty of Content Judgement: Fair Diagnostics Vital Signs (24Hr): Vital Signs - 24 hr 09/19/23 18:00 09/20/23 08:21 Temperature 98 F 97.9 F Pulse Rate 94 75 Respiratory Rate 16 16 Blood Pressure 136/85 139/70 Pulse Oximetry 98 96 Oxygen Delivery Method Room Air Room Air BMI result Body Mass Index 26.4 Labs 09/04/23 07:52 09/14/23 07:58 Imaging Radiology Impressions: ITS Impressions Brain MRI 04/03/23 15:30 IMPRESSION: No acute infarct, mass lesion, intracranial hemorrhage, or evidence of hydrocephalus. Mild nonspecific T2/FLAIR hyperintensity in the cerebral white matter and danny presumably on the basis of chronic microangiopathy. Cervical Spine CT 07/03/23 20:12 IMPRESSION: No acute findings within the cervical spine. The cervical central canal is not well assessed on this CT due to artifact. If weakness persists, a cervical spine MRI would be more sensitive in assessment. Medications Medications Current Medications Acetaminophen (Acetaminophen 325 Mg Tablet) 650 mg PO Q6H PRN PRN Reason: Headache/Pain Mild Scale (1-3) Last Admin: 09/19/23 19:52 Dose: 650 mg Al Hydroxide/Mg Hydroxide (Magnesium Hydrox/Alum Hydrox 30 Ml Oral.Susp) 30 ml PO Q6H PRN PRN Reason: Heartburn/Nausea Amphetamine/Dextroamphetamine (Amphetamine Mixed Salts 10 Mg Tablet) 10 mg PO BID@0800,1700 [facility] Last Admin: 09/20/23 08:26 Dose: 10 mg Atorvastatin Calcium (Atorvastatin Calcium 40 Mg Tablet) 40 mg PO DAILY [facility] Last Admin: 09/20/23 08:26 Dose: 40 mg Empagliflozin (Empagliflozin 25 Mg Tablet) 25 mg PO DAILY [facility] Last Admin: 09/20/23 08:26 Dose: 25 mg Famotidine (Famotidine 20 Mg Tablet) 20 mg PO DAILY [facility] Last Admin: 09/20/23 08:26 Dose: 20 mg Ibuprofen (Ibuprofen 600 Mg Tablet) 600 mg PO Q6H PRN PRN Reason: pain not relieved by tylenol Last Admin: 09/19/23 19:52 Dose: 600 mg Insulin Glargine (Insulin Glargine,Hum.Rec.Anlog 100 Unit/Ml 10 Ml Vial) 6 unit SUBCUT DAILY [facility] Last Admin: 09/20/23 08:26 Dose: 6 unit Loperamide HCl (Loperamide Hcl 2 Mg Capsule) 2 mg PO Q6H PRN PRN Reason: Loose Stool Last Admin: 08/07/23 14:48 Dose: 2 mg Magnesium Hydroxide (Milk Of Magnesia 30 Ml Oral.Susp) 30 ml PO DAILY PRN PRN Reason: Constipation Last Admin: 09/18/23 12:20 Dose: 30 ml [facility]esium Oxide ([facility] 400 Mg [facility]t) [facility] Last Admin: 09/20/23 08:26 Dose: 400 mg Memantine (Memantine Hcl 10 Mg Tablet) 10 mg PO BID [facility] Last Admin: 09/20/23 08:26 Dose: 10 mg Metformin HCl (Metformin Hcl 1,000 Mg Tablet) 1,000 mg PO BID [facility] Last Admin: 09/20/23 08:26 Dose: 1,000 mg Olanzapine (Olanzapine 2.5 Mg Tablet) 2.5 mg PO Q4H PRN PRN Reason: anxiety/agitation Last Admin: 09/18/23 23:43 Dose: 2.5 mg Sertraline HCl (Sertraline Hcl 50 Mg Tablet) 150 mg PO DAILY [facility] Last Admin: 09/20/23 08:26 Dose: 150 mg Trazodone HCl (Trazodone Hcl 50 Mg Tablet) 50 mg PO BEDTIME MRX1 PRN PRN Reason: Insomnia Last Admin: 09/19/23 21:34 Dose: 50 mg Allergies Allergies Allergy/AdvReac Type Severity Reaction Status Date / Time No Known Allergies Allergy Verified 03/23/23 18:13 Assessment & Plan Assessment & Plan (1) Alzheimer's dementia: Status: Acute Code(s): G30.9 - Alzheimer's disease, unspecified; F02.80 - Dementia in other diseases classified elsewhere, unspecified severity, without behavioral disturbance, psychotic disturbance, mood disturbance, and anxiety Assessment and Plan: August 24 58 years old woman with relative young age onset at Alzheimer dementia but overall clinical picture is affected by significant depression, which continues to be the predominant feature of for clinical picture. Conventional dementia medicines such as donepezil or memantine can be tried but usually do not make significant difference. I would suggest memantine 10 mg twice a day and donepezil 10 mg daily. Recently a new dementia at drug for Alzheimer was approved but only for relatively mild dementia or mild cognitive impairment type of patients. She would not qualify for that drug. 08/11 continue current treatment plan Plan 1. Continue same treatment. 2. Waiting for placement. 3. Lower Haldol to 1 mg p.o. q.h.s. on July 28. August 17 we discontinue Haldol at night. 4. August 18 we decided to add a low dose of Adderall 5 mg p.o. b.i.d. to target her hypoactivity. So far, had been a modest improvement of her hypoactive so we increase other up to 10 mg p.o. b.i.d. on August 24. 5. Increase Zoloft up to 150 mg p.o. q.a.m. Plan Continue with same treatment, waiting for placement Reason for continued inpatient stay Substantial Risk for: inability to function, rapid decompensation and med/psych decompensation Time Spent With Patient Time: Total time managing care of this patient today ___20_ minutes.
[2023-09-20] MEDS: Milk of Magnesia 30 ML ORAL.SUSP PO (15:31)
[2023-09-20 18:00] VITALS: BP 125/56; PULSE 76; RESP 18; TEMP 36.2; O2SAT 96
[2023-09-20] MEDS: bisacodyL 10 MG SUPP.RECT PR (18:30)
[2023-09-20] MEDS: Ibuprofen 600 MG TABLET PO (20:05)
[2023-09-20] MEDS: Docusate Sodium 100 MG CAPSULE PO (20:06)
[2023-09-20] MEDS: Acetaminophen 325 MG TABLET 650 MG PO (20:07)
[2023-09-20] MEDS: traZODone HCL 50 MG TABLET PO (22:19)
[2023-09-20] MEDS: Sodium Phosphate,Mono-Dibasic 133 ML ENEMA PR (22:20)
[2023-09-21 07:00] VITALS: BMI 26.5
[2023-09-21 08:31] VITALS: BP 118/61; PULSE 75; RESP 15; TEMP 36.4; O2SAT 96
[2023-09-21 08:31] LABS: Creatinine Clr Calc Pharmacy 98.4; Estimated Glomerular Filt Rate > 60
[2023-09-21] MEDS: Sertraline HCL 50 MG TABLET 150 MG PO (08:33)
[2023-09-21] MEDS: Docusate Sodium 100 MG CAPSULE PO ×2 (08:33→20:25)
[2023-09-21] MEDS: Famotidine 20 MG TABLET PO (08:33)
[2023-09-21] MEDS: Amphetamine Mixed Salts 10 MG TABLET PO ×2 (08:33→16:52)
[2023-09-21] MEDS: Empagliflozin 25 MG TABLET PO (08:33)
[2023-09-21] MEDS: Insulin Glargine,Hum.rec.anlog 100 UNIT/ML 10 ML VIAL 6 UNIT SUBCUT (08:33)
[2023-09-21] MEDS: metFORMIN HCl 1,000 MG TABLET 1000 MG PO ×2 (08:33→20:25)
[2023-09-21] MEDS: Atorvastatin Calcium 40 MG TABLET PO (08:33)
[2023-09-21] MEDS: Memantine HCl 10 MG TABLET PO ×2 (08:33→20:25)
[2023-09-21] MEDS: Magnesium Oxide 400 MG TABLET PO ×2 (08:33→16:51)
[2023-09-21] MEDS: Nystatin Cream 15 GM TUBE 1 APPL TOPICAL (12:57)
--- NOTE | 2023-09-21 16:43 | HO.PSYCHPN ---
Subjective Subjective Date of Service: 09/21/23 Reason For Visit: hallucinations confusion Subjective Notes: Conditional Voluntary Healthcare Proxy: Yes Guardianship: Yes Interim History: The nursing staff reported the patient had been pleasant, cooperative, wandering the unit. She met with the yarn spinner yesterday. On interview the patient denies new symptoms, pleasantly confused, waiting for placement. Mental Status Exam Mental Status Exam Patient Appearance: Appropriate Patient Orientation: Person Level of Consciousness: Awake and Appropriate Patient Behavior: Guarded and Passive Mood Description: Withdrawn Affect Description: Constricted Patient Cognition Impaired: Yes Ability to Follow Directions: Good Speech Pattern: Clear Hallucinations: None Delusions: Not Present Thought Process: Slowed Thinking Thought Content: positive for [place] and positive for Poverty of Content Judgement: Fair Diagnostics Vital Signs (24Hr): Vital Signs - 24 hr 09/20/23 18:00 09/21/23 08:31 Temperature 97.2 F 97.5 F Pulse Rate 76 75 Respiratory Rate 18 15 Blood Pressure 125/56 L 118/61 Pulse Oximetry 96 96 Oxygen Delivery Method Room Air Room Air BMI result Body Mass Index 26.5 Labs 09/04/23 07:52 09/21/23 08:01 Labs: Laboratory Results - last 48 hr 09/21/23 08:01 Creatinine 0.56 Estim Creat Clear Calc 98.4 Estimated GFR > 60 Imaging Radiology Impressions: ITS Impressions Brain MRI 04/03/23 15:30 IMPRESSION: No acute infarct, mass lesion, intracranial hemorrhage, or evidence of hydrocephalus. Mild nonspecific T2/FLAIR hyperintensity in the cerebral white matter and danny presumably on the basis of chronic microangiopathy. Cervical Spine CT 07/03/23 20:12 IMPRESSION: No acute findings within the cervical spine. The cervical central canal is not well assessed on this CT due to artifact. If weakness persists, a cervical spine MRI would be more sensitive in assessment. Medications Medications Current Medications Acetaminophen (Acetaminophen 325 Mg Tablet) 650 mg PO Q6H PRN PRN Reason: Headache/Pain Mild Scale (1-3) Last Admin: 09/20/23 20:07 Dose: 650 mg Al Hydroxide/Mg Hydroxide (Magnesium Hydrox/Alum Hydrox 30 Ml Oral.Susp) 30 ml PO Q6H PRN PRN Reason: Heartburn/Nausea Amphetamine/Dextroamphetamine (Amphetamine Mixed Salts 10 Mg Tablet) 10 mg PO BID@0800,1700 [facility] Last Admin: 09/21/23 08:33 Dose: 10 mg Atorvastatin Calcium (Atorvastatin Calcium 40 Mg Tablet) 40 mg PO DAILY [facility] Last Admin: 09/21/23 08:33 Dose: 40 mg Docusate Sodium (Docusate Sodium 100 Mg Capsule) 100 mg PO BID [facility] Last Admin: 09/21/23 08:33 Dose: 100 mg Empagliflozin (Empagliflozin 25 Mg Tablet) 25 mg PO DAILY [facility] Last Admin: 09/21/23 08:33 Dose: 25 mg Famotidine (Famotidine 20 Mg Tablet) 20 mg PO DAILY [facility] Last Admin: 09/21/23 08:33 Dose: 20 mg Ibuprofen (Ibuprofen 600 Mg Tablet) 600 mg PO Q6H PRN PRN Reason: pain not relieved by tylenol Last Admin: 09/20/23 20:05 Dose: 600 mg Insulin Glargine (Insulin Glargine,Hum.Rec.Anlog 100 Unit/Ml 10 Ml Vial) 6 unit SUBCUT DAILY [facility] Last Admin: 09/21/23 08:33 Dose: 6 unit Magnesium Hydroxide (Milk Of Magnesia 30 Ml Oral.Susp) 30 ml PO DAILY PRN PRN Reason: Constipation Last Admin: 09/20/23 15:31 Dose: 30 ml Magnesium Oxide (Magnesium Oxide 400 Mg Tablet) 400 mg PO BIDPC [facility] Last Admin: 09/21/23 08:33 Dose: 400 mg Memantine (Memantine Hcl 10 Mg Tablet) 10 mg PO BID [facility] Last Admin: 09/21/23 08:33 Dose: 10 mg Metformin HCl (Metformin Hcl 1,000 Mg Tablet) 1,000 mg PO BID [facility] Last Admin: 09/21/23 08:33 Dose: 1,000 mg Nystatin (Nystatin Cream 15 Gm Tube) 1 appl TOPICAL BID [facility]; Protocol Last Admin: 09/21/23 12:57 Dose: 1 appl Olanzapine (Olanzapine 2.5 Mg Tablet) 2.5 mg PO Q4H PRN PRN Reason: anxiety/agitation Last Admin: 09/18/23 23:43 Dose: 2.5 mg Senna (Sennosides 8.6 Mg Tablet) 17.2 mg PO BEDTIME [facility] Sertraline HCl (Sertraline Hcl 50 Mg Tablet) 150 mg PO DAILY [facility] Last Admin: 09/21/23 08:33 Dose: 150 mg Trazodone HCl (Trazodone Hcl 50 Mg Tablet) 50 mg PO BEDTIME MRX1 PRN PRN Reason: Insomnia Last Admin: 09/20/23 22:19 Dose: 50 mg Allergies Allergies Allergy/AdvReac Type Severity Reaction Status Date / Time No Known Allergies Allergy Verified 03/23/23 18:13 Assessment & Plan Assessment & Plan (1) Alzheimer's dementia: Status: Acute Code(s): G30.9 - Alzheimer's disease, unspecified; F02.80 - Dementia in other diseases classified elsewhere, unspecified severity, without behavioral disturbance, psychotic disturbance, mood disturbance, and anxiety Assessment and Plan: August 24 58 years old woman with relative young age onset at Alzheimer dementia but overall clinical picture is affected by significant depression, which continues to be the predominant feature of for clinical picture. Conventional dementia medicines such as donepezil or memantine can be tried but usually do not make significant difference. I would suggest memantine 10 mg twice a day and donepezil 10 mg daily. Recently a new dementia at drug for Alzheimer was approved but only for relatively mild dementia or mild cognitive impairment type of patients. She would not qualify for that drug. 08/11 continue current treatment plan Plan 1. Continue same treatment. 2. Waiting for placement. 3. Lower Haldol to 1 mg p.o. q.h.s. on July 28. August 17 we discontinue Haldol at night. 4. August 18 we decided to add a low dose of Adderall 5 mg p.o. b.i.d. to target her hypoactivity. So far, had been a modest improvement of her hypoactive so we increase other up to 10 mg p.o. b.i.d. on August 24. 5. Increase Zoloft up to 150 mg p.o. q.a.m. Plan Continue with same treatment, waiting for placement Reason for continued inpatient stay Substantial Risk for: inability to function, rapid decompensation and med/psych decompensation Time Spent With Patient Time: Total time managing care of this patient today __20__ minutes.
[2023-09-21 19:35] VITALS: BP 131/69; PULSE 83; RESP 18; TEMP 36.4; O2SAT 95
[2023-09-21] MEDS: Sennosides 8.6 MG TABLET 17.2 MG PO (20:25)
[2023-09-22 08:41] VITALS: BP 108/64; PULSE 73; RESP 15; TEMP 36.4; O2SAT 96
[2023-09-22] MEDS: Memantine HCl 10 MG TABLET PO ×2 (08:43→20:59)
[2023-09-22] MEDS: Amphetamine Mixed Salts 10 MG TABLET PO ×2 (08:43→16:31)
[2023-09-22] MEDS: Docusate Sodium 100 MG CAPSULE PO ×2 (08:43→21:00)
[2023-09-22] MEDS: Insulin Glargine,Hum.rec.anlog 100 UNIT/ML 10 ML VIAL 6 UNIT SUBCUT (08:43)
[2023-09-22] MEDS: Famotidine 20 MG TABLET PO (08:43)
[2023-09-22] MEDS: metFORMIN HCl 1,000 MG TABLET 1000 MG PO ×2 (08:43→21:01)
[2023-09-22] MEDS: Atorvastatin Calcium 40 MG TABLET PO (08:44)
[2023-09-22] MEDS: Magnesium Oxide 400 MG TABLET PO ×2 (08:44→16:31)
[2023-09-22] MEDS: Empagliflozin 25 MG TABLET PO (08:44)
[2023-09-22] MEDS: Sertraline HCL 50 MG TABLET 150 MG PO (08:44)
[2023-09-22] MEDS: Acetaminophen 325 MG TABLET 650 MG PO ×2 (10:02→16:31)
[2023-09-22] MEDS: Nystatin Cream 15 GM TUBE 1 APPL TOPICAL ×2 (13:32→21:27)
--- NOTE | 2023-09-22 13:42 | HO.PSYCHPN ---
Subjective Subjective Date of Service: 09/22/23 Reason For Visit: hallucinations confusion Subjective Notes: Conditional Voluntary Interim History: The nursing staff reported no changes in her mental status, fully compliant with treatment. On interview the patient denies new symptoms, waiting for placement. Mental Status Exam Mental Status Exam Patient Appearance: Well Grooomed Patient Orientation: Person Level of Consciousness: Awake and Appropriate Patient Behavior: Guarded and Passive Mood Description: Withdrawn Affect Description: Constricted Patient Cognition Impaired: Yes Ability to Follow Directions: Good Speech Pattern: Clear Hallucinations: None Delusions: Not Present Thought Process: Distracted Thought Content: positive for [place] and positive for Poverty of Content Judgement: Poor Diagnostics Vital Signs (24Hr): Vital Signs - 24 hr 09/21/23 19:35 09/22/23 08:41 Temperature 97.5 F 97.5 F Pulse Rate 83 73 Respiratory Rate 18 15 Blood Pressure 131/69 108/64 Pulse Oximetry 95 96 Oxygen Delivery Method Room Air Room Air BMI result Body Mass Index 26.5 Labs 09/04/23 07:52 09/21/23 08:01 Labs: Laboratory Results - last 48 hr 09/21/23 08:01 Creatinine 0.56 Estim Creat Clear Calc 98.4 Estimated GFR > 60 Imaging Radiology Impressions: ITS Impressions Brain MRI 04/03/23 15:30 IMPRESSION: No acute infarct, mass lesion, intracranial hemorrhage, or evidence of hydrocephalus. Mild nonspecific T2/FLAIR hyperintensity in the cerebral white matter and danny presumably on the basis of chronic microangiopathy. Cervical Spine CT 07/03/23 20:12 IMPRESSION: No acute findings within the cervical spine. The cervical central canal is not well assessed on this CT due to artifact. If weakness persists, a cervical spine MRI would be more sensitive in assessment. Medications Medications Current Medications Acetaminophen (Acetaminophen 325 Mg Tablet) 650 mg PO Q6H PRN PRN Reason: Headache/Pain Mild Scale (1-3) Last Admin: 09/22/23 10:02 Dose: 650 mg Al Hydroxide/Mg Hydroxide (Magnesium Hydrox/Alum Hydrox 30 Ml Oral.Susp) 30 ml PO Q6H PRN PRN Reason: Heartburn/Nausea Amphetamine/Dextroamphetamine (Amphetamine Mixed Salts 10 Mg Tablet) 10 mg PO BID@0800,1700 [facility] Last Admin: 09/22/23 08:43 Dose: 10 mg Atorvastatin Calcium (Atorvastatin Calcium 40 Mg Tablet) 40 mg PO DAILY [facility] Last Admin: 09/22/23 08:44 Dose: 40 mg Docusate Sodium (Docusate Sodium 100 Mg Capsule) 100 mg PO BID [facility] Last Admin: 09/22/23 08:43 Dose: 100 mg Empagliflozin (Empagliflozin 25 Mg Tablet) 25 mg PO DAILY [facility] Last Admin: 09/22/23 08:44 Dose: 25 mg Famotidine (Famotidine 20 Mg Tablet) 20 mg PO DAILY [facility] Last Admin: 09/22/23 08:43 Dose: 20 mg Ibuprofen (Ibuprofen 600 Mg Tablet) 600 mg PO Q6H PRN PRN Reason: pain not relieved by tylenol Last Admin: 09/20/23 20:05 Dose: 600 mg Insulin Glargine (Insulin Glargine,Hum.Rec.Anlog 100 Unit/Ml 10 Ml Vial) 6 unit SUBCUT DAILY [facility] Last Admin: 09/22/23 08:43 Dose: 6 unit Magnesium Hydroxide (Milk Of Magnesia 30 Ml Oral.Susp) 30 ml PO DAILY PRN PRN Reason: Constipation Last Admin: 09/20/23 15:31 Dose: 30 ml Magnesium Oxide (Magnesium Oxide 400 Mg Tablet) 400 mg PO BIDPC [facility] Last Admin: 09/22/23 08:44 Dose: 400 mg Memantine (Memantine Hcl 10 Mg Tablet) 10 mg PO BID [facility] Last Admin: 09/22/23 08:43 Dose: 10 mg Metformin HCl (Metformin Hcl 1,000 Mg Tablet) 1,000 mg PO BID [facility] Last Admin: 09/22/23 08:43 Dose: 1,000 mg Nystatin (Nystatin Cream 15 Gm Tube) 1 appl TOPICAL BID [facility]; Protocol Last Admin: 09/22/23 13:32 Dose: 1 appl Olanzapine (Olanzapine 2.5 Mg Tablet) 2.5 mg PO Q4H PRN PRN Reason: anxiety/agitation Last Admin: 09/18/23 23:43 Dose: 2.5 mg Senna (Sennosides 8.6 Mg Tablet) 17.2 mg PO BEDTIME [facility] Last Admin: 09/21/23 20:25 Dose: 17.2 mg Sertraline HCl (Sertraline Hcl 50 Mg Tablet) 150 mg PO DAILY [facility] Last Admin: 09/22/23 08:44 Dose: 150 mg Trazodone HCl (Trazodone Hcl 50 Mg Tablet) 50 mg PO BEDTIME MRX1 PRN PRN Reason: Insomnia Last Admin: 09/20/23 22:19 Dose: 50 mg Allergies Allergies Allergy/AdvReac Type Severity Reaction Status Date / Time No Known Allergies Allergy Verified 03/23/23 18:13 Assessment & Plan Assessment & Plan (1) Alzheimer's dementia: Status: Acute Code(s): G30.9 - Alzheimer's disease, unspecified; F02.80 - Dementia in other diseases classified elsewhere, unspecified severity, without behavioral disturbance, psychotic disturbance, mood disturbance, and anxiety Assessment and Plan: August 24 58 years old woman with relative young age onset at Alzheimer dementia but overall clinical picture is affected by significant depression, which continues to be the predominant feature of for clinical picture. Conventional dementia medicines such as donepezil or memantine can be tried but usually do not make significant difference. I would suggest memantine 10 mg twice a day and donepezil 10 mg daily. Recently a new dementia at drug for Alzheimer was approved but only for relatively mild dementia or mild cognitive impairment type of patients. She would not qualify for that drug. 08/11 continue current treatment plan Plan 1. Continue same treatment. 2. Waiting for placement. 3. Lower Haldol to 1 mg p.o. q.h.s. on July 28. August 17 we discontinue Haldol at night. 4. August 18 we decided to add a low dose of Adderall 5 mg p.o. b.i.d. to target her hypoactivity. So far, had been a modest improvement of her hypoactive so we increase other up to 10 mg p.o. b.i.d. on August 24. 5. Increase Zoloft up to 150 mg p.o. q.a.m. Plan Continue with same treatment, waiting for placement Reason for continued inpatient stay Substantial Risk for: inability to function, rapid decompensation and med/psych decompensation Time Spent With Patient Time: Total time managing care of this patient today __20__ minutes.
[2023-09-22 18:00] VITALS: BP 128/59; PULSE 77; RESP 16; TEMP 35.7; O2SAT 94
[2023-09-22] MEDS: traZODone HCL 50 MG TABLET PO (21:00)
[2023-09-22] MEDS: Sennosides 8.6 MG TABLET 17.2 MG PO (21:00)
[2023-09-23 08:27] VITALS: BP 139/77; PULSE 72; RESP 18; O2SAT 94
[2023-09-23] MEDS: Memantine HCl 10 MG TABLET PO ×2 (08:35→20:49)
[2023-09-23] MEDS: Atorvastatin Calcium 40 MG TABLET PO (08:35)
[2023-09-23] MEDS: metFORMIN HCl 1,000 MG TABLET 1000 MG PO ×2 (08:35→20:49)
[2023-09-23] MEDS: Famotidine 20 MG TABLET PO (08:35)
[2023-09-23] MEDS: Sertraline HCL 50 MG TABLET 150 MG PO (08:35)
[2023-09-23] MEDS: Magnesium Oxide 400 MG TABLET PO ×2 (08:35→16:42)
[2023-09-23] MEDS: Docusate Sodium 100 MG CAPSULE PO ×2 (08:35→20:49)
[2023-09-23] MEDS: Empagliflozin 25 MG TABLET PO (08:35)
[2023-09-23] MEDS: Amphetamine Mixed Salts 10 MG TABLET PO ×2 (08:35→16:42)
[2023-09-23] MEDS: Insulin Glargine,Hum.rec.anlog 100 UNIT/ML 10 ML VIAL 6 UNIT SUBCUT (08:38)
[2023-09-23] MEDS: Nystatin Cream 15 GM TUBE 1 APPL TOPICAL ×2 (14:20→20:49)
--- NOTE | 2023-09-23 17:11 | HO.PSYCHPN ---
Subjective Subjective Date of Service: 09/23/23 Reason For Visit: hallucinations confusion Interim History: The nursing staff reported no changes in her mental status, fully compliant with treatment. On interview the patient denies new symptoms, waiting for placement. Review of Systems Review of Systems Unremarkable Yes all other systems are reviewed and are negative and Unobtainable due to mental status Constitutional: Reports as per HPI, Denies chills, Denies fatigue, Denies fever(s) and Denies headache(s) Denies headache(s) Cardiovascular: Denies chest pain and Denies dyspnea Respiratory: Denies cough and Denies dyspnea Gastrointestinal: Denies abdominal pain, Denies constipation and Denies vomiting Denies headache(s) and Denies focal weakness Psychiatric: Denies auditory hallucinations, Reports hallucinations (Per the patient's daughter. Patient denies this), Denies tactile hallucinations and Denies suicidal ideation Endocrine: Denies fatigue Mental Status Exam Mental Status Exam Narrative: Hospital clothing. Poor self-care. Needs lots of cuing. Cognition consistent with establish dementia. No SI. No HI. No agitation or psychosis. Insight and judgment poor Patient Appearance: Well Grooomed Patient Orientation: Person Level of Consciousness: Awake and Appropriate Patient Behavior: Guarded and Passive Behavior Comments: Eyes remain closed Mood Description: Withdrawn Affect Description: Constricted Patient Cognition Impaired: Yes Ability to Follow Directions: Good Speech Pattern: Clear Memory Description: Working Impaired Diagnostics Vital Signs (24Hr): Vital Signs - 24 hr 09/22/23 18:00 09/23/23 08:27 Temperature 96.2 F L Pulse Rate 77 72 Respiratory Rate 16 18 Blood Pressure 128/59 L 139/77 Pulse Oximetry 94 94 Oxygen Delivery Method Room Air Room Air BMI result Body Mass Index 26.5 Labs 09/04/23 07:52 09/21/23 08:01 Imaging Radiology Impressions: ITS Impressions Brain MRI 04/03/23 15:30 IMPRESSION: No acute infarct, mass lesion, intracranial hemorrhage, or evidence of hydrocephalus. Mild nonspecific T2/FLAIR hyperintensity in the cerebral white matter and danny presumably on the basis of chronic microangiopathy. Cervical Spine CT 07/03/23 20:12 IMPRESSION: No acute findings within the cervical spine. The cervical central canal is not well assessed on this CT due to artifact. If weakness persists, a cervical spine MRI would be more sensitive in assessment. Medications Medications Current Medications Acetaminophen (Acetaminophen 325 Mg Tablet) 650 mg PO Q6H PRN PRN Reason: Headache/Pain Mild Scale (1-3) Last Admin: 09/22/23 16:31 Dose: 650 mg Al Hydroxide/Mg Hydroxide (Magnesium Hydrox/Alum Hydrox 30 Ml Oral.Susp) 30 ml PO Q6H PRN PRN Reason: Heartburn/Nausea Amphetamine/Dextroamphetamine (Amphetamine Mixed Salts 10 Mg Tablet) 10 mg PO BID@0800,1700 [facility] Last Admin: 09/23/23 16:42 Dose: 10 mg Atorvastatin Calcium (Atorvastatin Calcium 40 Mg Tablet) 40 mg PO DAILY [facility] Last Admin: 09/23/23 08:35 Dose: 40 mg Docusate Sodium (Docusate Sodium 100 Mg Capsule) 100 mg PO BID [facility] Last Admin: 09/23/23 08:35 Dose: 100 mg Empagliflozin (Empagliflozin 25 Mg Tablet) 25 mg PO DAILY [facility] Last Admin: 09/23/23 08:35 Dose: 25 mg Famotidine (Famotidine 20 Mg Tablet) 20 mg PO DAILY [facility] Last Admin: 09/23/23 08:35 Dose: 20 mg Ibuprofen (Ibuprofen 600 Mg Tablet) 600 mg PO Q6H PRN PRN Reason: pain not relieved by tylenol Last Admin: 09/20/23 20:05 Dose: 600 mg Insulin Glargine (Insulin Glargine,Hum.Rec.Anlog 100 Unit/Ml 10 Ml Vial) 6 unit SUBCUT DAILY [facility] Last Admin: 09/23/23 08:38 Dose: 6 unit Magnesium Hydroxide (Milk Of Magnesia 30 Ml Oral.Susp) 30 ml PO DAILY PRN PRN Reason: Constipation Last Admin: 09/20/23 15:31 Dose: 30 ml Magnesium Oxide ([facility] Last Admin: 09/23/23 16:42 Dose: 400 mg Memantine (Memantine Hcl 10 Mg Tablet) 10 mg PO BID [facility] Last Admin: 09/23/23 08:35 Dose: 10 mg Metformin HCl (Metformin Hcl 1,000 Mg Tablet) 1,000 mg PO BID [facility] Last Admin: 09/23/23 08:35 Dose: 1,000 mg Nystatin (Nystatin Cream 15 Gm Tube) 1 appl TOPICAL BID [facility]; Protocol Last Admin: 09/23/23 14:20 Dose: 1 appl Olanzapine (Olanzapine 2.5 Mg Tablet) 2.5 mg PO Q4H PRN PRN Reason: anxiety/agitation Last Admin: 09/18/23 23:43 Dose: 2.5 mg Senna (Sennosides 8.6 Mg Tablet) 17.2 mg PO BEDTIME [facility] Last Admin: 09/22/23 21:00 Dose: 17.2 mg Sertraline HCl (Sertraline Hcl 50 Mg Tablet) 150 mg PO DAILY [facility] Last Admin: 09/23/23 08:35 Dose: 150 mg Trazodone HCl (Trazodone Hcl 50 Mg Tablet) 50 mg PO BEDTIME MRX1 PRN PRN Reason: Insomnia Last Admin: 09/22/23 21:00 Dose: 50 mg Allergies Allergies Allergy/AdvReac Type Severity Reaction Status Date / Time No Known Allergies Allergy Verified 03/23/23 18:13 Assessment & Plan Assessment & Plan (1) Alzheimer's dementia: Status: Acute Code(s): G30.9 - Alzheimer's disease, unspecified; F02.80 - Dementia in other diseases classified elsewhere, unspecified severity, without behavioral disturbance, psychotic disturbance, mood disturbance, and anxiety Assessment and Plan: August 24 58 years old woman with relative young age onset at Alzheimer dementia but overall clinical picture is affected by significant depression, which continues to be the predominant feature of for clinical picture. Conventional dementia medicines such as donepezil or memantine can be tried but usually do not make significant difference. I would suggest memantine 10 mg twice a day and donepezil 10 mg daily. Recently a new dementia at drug for Alzheimer was approved but only for relatively mild dementia or mild cognitive impairment type of patients. She would not qualify for that drug. 08/11 continue current treatment plan Plan 1. Continue same treatment. 2. Waiting for placement. 3. Lower Haldol to 1 mg p.o. q.h.s. on July 28. August 17 we discontinue Haldol at night. 4. August 18 we decided to add a low dose of Adderall 5 mg p.o. b.i.d. to target her hypoactivity. So far, had been a modest improvement of her hypoactive so we increase other up to 10 mg p.o. b.i.d. on August 24. 5. Increase Zoloft up to 150 mg p.o. q.a.m. 09/23: Continue current management and treatment plan. Plan Continue with same treatment, waiting for placement Reason for continued inpatient stay Substantial Risk for: inability to function and rapid decompensation Time Spent With Patient Time: Total time managing care of this patient today ____ minutes.
[2023-09-23 18:00] VITALS: BP 126/69; PULSE 80; RESP 17; TEMP 36.6; O2SAT 98
[2023-09-23] MEDS: traZODone HCL 50 MG TABLET PO ×2 (20:49→22:58)
[2023-09-23] MEDS: Sennosides 8.6 MG TABLET 17.2 MG PO (20:49)
[2023-09-23] MEDS: OLANZapine 2.5 MG TABLET PO (22:58)
[2023-09-24] MEDS: Acetaminophen 325 MG TABLET 650 MG PO ×2 (01:03→21:02)
[2023-09-24 06:00] VITALS: BP 124/56; PULSE 67; RESP 18; TEMP 36.7; O2SAT 99
[2023-09-24] MEDS: Insulin Glargine,Hum.rec.anlog 100 UNIT/ML 10 ML VIAL 6 UNIT SUBCUT (08:20)
[2023-09-24] MEDS: Magnesium Oxide 400 MG TABLET PO ×2 (08:21→16:30)
[2023-09-24] MEDS: Empagliflozin 25 MG TABLET PO (08:21)
[2023-09-24] MEDS: Famotidine 20 MG TABLET PO (08:21)
[2023-09-24] MEDS: Memantine HCl 10 MG TABLET PO ×2 (08:21→21:01)
[2023-09-24] MEDS: Atorvastatin Calcium 40 MG TABLET PO (08:21)
[2023-09-24] MEDS: Amphetamine Mixed Salts 10 MG TABLET PO ×2 (08:21→16:30)
[2023-09-24] MEDS: Sertraline HCL 50 MG TABLET 150 MG PO (08:21)
[2023-09-24] MEDS: metFORMIN HCl 1,000 MG TABLET 1000 MG PO ×2 (08:21→21:15)
[2023-09-24] MEDS: Docusate Sodium 100 MG CAPSULE PO ×2 (08:21→21:01)
[2023-09-24] MEDS: Nystatin Cream 15 GM TUBE 1 APPL TOPICAL (08:25)
--- NOTE | 2023-09-24 15:57 | HO.PSYCHPN ---
Subjective Subjective Date of Service: 09/24/23 Reason For Visit: hallucinations confusion Interim History: The nursing staff reported no changes in her mental status, fully compliant with treatment. On interview the patient denies new symptoms, waiting for placement. Review of Systems Review of Systems Unremarkable Yes all other systems are reviewed and are negative and Unobtainable due to mental status Constitutional: Reports as per HPI, Denies chills, Denies fatigue, Denies fever(s) and Denies headache(s) Denies headache(s) Cardiovascular: Denies chest pain and Denies dyspnea Respiratory: Denies cough and Denies dyspnea Gastrointestinal: Denies abdominal pain, Denies constipation and Denies vomiting Denies headache(s) and Denies focal weakness Psychiatric: Denies auditory hallucinations, Reports hallucinations (Per the patient's daughter. Patient denies this), Denies tactile hallucinations and Denies suicidal ideation Endocrine: Denies fatigue Mental Status Exam Mental Status Exam Narrative: Hospital clothing. Poor self-care. Needs lots of cuing. Cognition consistent with establish dementia. No SI. No HI. No agitation or psychosis. Insight and judgment poor Patient Appearance: Well Grooomed Patient Orientation: Person Level of Consciousness: Awake and Appropriate Patient Behavior: Guarded and Passive Behavior Comments: Eyes remain closed Mood Description: Withdrawn Affect Description: Constricted Patient Cognition Impaired: Yes Ability to Follow Directions: Good Speech Pattern: Clear Memory Description: Working Impaired Diagnostics Vital Signs (24Hr): Vital Signs - 24 hr 09/23/23 18:00 09/24/23 06:00 Temperature 97.9 F 98.1 F Pulse Rate 80 67 Respiratory Rate 17 18 Blood Pressure 126/69 124/56 L Pulse Oximetry 98 99 Oxygen Delivery Method Room Air Room Air BMI result Body Mass Index 26.5 Labs 09/04/23 07:52 09/21/23 08:01 Imaging Radiology Impressions: ITS Impressions Brain MRI 04/03/23 15:30 IMPRESSION: No acute infarct, mass lesion, intracranial hemorrhage, or evidence of hydrocephalus. Mild nonspecific T2/FLAIR hyperintensity in the cerebral white matter and danny presumably on the basis of chronic microangiopathy. Cervical Spine CT 07/03/23 20:12 IMPRESSION: No acute findings within the cervical spine. The cervical central canal is not well assessed on this CT due to artifact. If weakness persists, a cervical spine MRI would be more sensitive in assessment. Medications Medications Current Medications Acetaminophen (Acetaminophen 325 Mg Tablet) 650 mg PO Q6H PRN PRN Reason: Headache/Pain Mild Scale (1-3) Last Admin: 09/24/23 01:03 Dose: 650 mg Al Hydroxide/Mg Hydroxide (Magnesium Hydrox/Alum Hydrox 30 Ml Oral.Susp) 30 ml PO Q6H PRN PRN Reason: Heartburn/Nausea Amphetamine/Dextroamphetamine (Amphetamine Mixed Salts 10 Mg Tablet) 10 mg PO BID@0800,1700 [facility] Last Admin: 09/24/23 08:21 Dose: 10 mg Atorvastatin Calcium (Atorvastatin Calcium 40 Mg Tablet) 40 mg PO DAILY [facility] Last Admin: 09/24/23 08:21 Dose: 40 mg Docusate Sodium (Docusate Sodium 100 Mg Capsule) 100 mg PO BID [facility] Last Admin: 09/24/23 08:21 Dose: 100 mg Empagliflozin (Empagliflozin 25 Mg Tablet) 25 mg PO DAILY [facility] Last Admin: 09/24/23 08:21 Dose: 25 mg Famotidine (Famotidine 20 Mg Tablet) 20 mg PO DAILY [facility] Last Admin: 09/24/23 08:21 Dose: 20 mg Ibuprofen (Ibuprofen 600 Mg Tablet) 600 mg PO Q6H PRN PRN Reason: pain not relieved by tylenol Last Admin: 09/20/23 20:05 Dose: 600 mg Insulin Glargine (Insulin Glargine,Hum.Rec.Anlog 100 Unit/Ml 10 Ml Vial) 6 unit SUBCUT DAILY [facility] Last Admin: 09/24/23 08:20 Dose: 6 unit Magnesium Hydroxide (Milk Of Magnesia 30 Ml Oral.Susp) 30 ml PO DAILY PRN PRN Reason: Constipation Last Admin: 09/20/23 15:31 Dose: 30 ml [facility] ([facility] Admin: 09/24/23 08:21 Dose: 400 mg Memantine (Memantine Hcl 10 Mg Tablet) 10 mg PO BID [facility] Last Admin: 09/24/23 08:21 Dose: 10 mg Metformin HCl (Metformin Hcl 1,000 Mg Tablet) 1,000 mg PO BID [facility] Last Admin: 09/24/23 08:21 Dose: 1,000 mg Nystatin (Nystatin Cream 15 Gm Tube) 1 appl TOPICAL BID [facility]; Protocol Last Admin: 09/24/23 08:25 Dose: 1 appl Olanzapine (Olanzapine 2.5 Mg Tablet) 2.5 mg PO Q4H PRN PRN Reason: anxiety/agitation Last Admin: 09/23/23 22:58 Dose: 2.5 mg Senna (Sennosides 8.6 Mg Tablet) 17.2 mg PO BEDTIME [facility] Last Admin: 09/23/23 20:49 Dose: 17.2 mg Sertraline HCl (Sertraline Hcl 50 Mg Tablet) 150 mg PO DAILY [facility] Last Admin: 09/24/23 08:21 Dose: 150 mg Trazodone HCl (Trazodone Hcl 50 Mg Tablet) 50 mg PO BEDTIME MRX1 PRN PRN Reason: Insomnia Last Admin: 09/23/23 22:58 Dose: 50 mg Allergies Allergies Allergy/AdvReac Type Severity Reaction Status Date / Time No Known Allergies Allergy Verified 03/23/23 18:13 Assessment & Plan Assessment & Plan (1) Alzheimer's dementia: Status: Acute Code(s): G30.9 - Alzheimer's disease, unspecified; F02.80 - Dementia in other diseases classified elsewhere, unspecified severity, without behavioral disturbance, psychotic disturbance, mood disturbance, and anxiety Assessment and Plan: August 24 58 years old woman with relative young age onset at Alzheimer dementia but overall clinical picture is affected by significant depression, which continues to be the predominant feature of for clinical picture. Conventional dementia medicines such as donepezil or memantine can be tried but usually do not make significant difference. I would suggest memantine 10 mg twice a day and donepezil 10 mg daily. Recently a new dementia at drug for Alzheimer was approved but only for relatively mild dementia or mild cognitive impairment type of patients. She would not qualify for that drug. 08/11 continue current treatment plan Plan 1. Continue same treatment. 2. Waiting for placement. 3. Lower Haldol to 1 mg p.o. q.h.s. on July 28. August 17 we discontinue Haldol at night. 4. August 18 we decided to add a low dose of Adderall 5 mg p.o. b.i.d. to target her hypoactivity. So far, had been a modest improvement of her hypoactive so we increase other up to 10 mg p.o. b.i.d. on August 24. 5. Increase Zoloft up to 150 mg p.o. q.a.m. 09/23: Continue current management and treatment plan. Plan Continue with same treatment, waiting for placement Reason for continued inpatient stay Substantial Risk for: inability to function, rapid decompensation and med/psych decompensation Time Spent With Patient Time: Total time managing care of this patient today ____ minutes.
[2023-09-24 18:00] VITALS: BP 99/50; PULSE 74; RESP 16; TEMP 36.8; O2SAT 97
[2023-09-24] MEDS: Mineral OiL enema 133 ML ENEMA PR (18:55)
[2023-09-25] MEDS: Sennosides 8.6 MG TABLET 17.2 MG PO ×2 (02:39→20:59)
[2023-09-25 08:00] VITALS: BP 131/65; PULSE 72; RESP 16; TEMP 36.7; O2SAT 95
[2023-09-25] MEDS: Sertraline HCL 50 MG TABLET 150 MG PO (08:52)
[2023-09-25] MEDS: Memantine HCl 10 MG TABLET PO ×2 (08:52→20:58)
[2023-09-25] MEDS: Atorvastatin Calcium 40 MG TABLET PO (08:52)
[2023-09-25] MEDS: metFORMIN HCl 1,000 MG TABLET 1000 MG PO ×2 (08:52→20:58)
[2023-09-25] MEDS: Docusate Sodium 100 MG CAPSULE PO ×2 (08:52→20:58)
[2023-09-25] MEDS: Magnesium Oxide 400 MG TABLET PO ×2 (08:52→16:22)
[2023-09-25] MEDS: Famotidine 20 MG TABLET PO (08:52)
[2023-09-25] MEDS: Amphetamine Mixed Salts 10 MG TABLET PO ×2 (08:52→16:22)
[2023-09-25] MEDS: Empagliflozin 25 MG TABLET PO (08:52)
[2023-09-25] MEDS: Insulin Glargine,Hum.rec.anlog 100 UNIT/ML 10 ML VIAL 6 UNIT SUBCUT (08:53)
--- NOTE | 2023-09-25 14:40 | P.PNPSI_ITS ---
Subjective Subjective Date of Service: 09/25/23 Reason For Visit: hallucinations confusion Subjective Notes: Conditional Voluntary Interim History: The nursing staff reported the patient had been compliant with treatment, she complained of constipation and over the weekend she had an enema. On interview the patient denies new symptoms, waiting for placement. The social science teacher reported she had been referred to several [facility] facilities and still waiting for a bed. Mental Status Exam Mental Status Exam Patient Appearance: Appropriate Patient Orientation: Person and Situation Level of Consciousness: Awake and Appropriate Patient Behavior: Guarded and Passive Mood Description: Withdrawn Affect Description: Constricted Patient Cognition Impaired: Yes Ability to Follow Directions: Good Speech Pattern: Clear Hallucinations: None Delusions: Not Present Thought Process: Distracted and Slowed Thinking Thought Content: positive for Circumstantial Judgement: Fair Diagnostics Vital Signs (24Hr): Vital Signs - 24 hr 09/24/23 18:00 09/25/23 08:00 Temperature 98.3 F 98.1 F Pulse Rate 74 72 Respiratory Rate 16 16 Blood Pressure 99/50 L 131/65 Pulse Oximetry 97 95 Oxygen Delivery Method Room Air Room Air BMI result Body Mass Index 26.5 Labs 09/04/23 07:52 09/21/23 08:01 Imaging Radiology Impressions: ITS Impressions Brain MRI 04/03/23 15:30 IMPRESSION: No acute infarct, mass lesion, intracranial hemorrhage, or evidence of hydrocephalus. Mild nonspecific T2/FLAIR hyperintensity in the cerebral white matter and danny presumably on the basis of chronic microangiopathy. Cervical Spine CT 07/03/23 20:12 IMPRESSION: No acute findings within the cervical spine. The cervical central canal is not well assessed on this CT due to artifact. If weakness persists, a cervical spine MRI would be more sensitive in assessment. Medications Medications Current Medications Acetaminophen (Acetaminophen 325 Mg Tablet) 650 mg PO Q6H PRN PRN Reason: Headache/Pain Mild Scale (1-3) Last Admin: 09/24/23 21:02 Dose: 650 mg Al Hydroxide/Mg Hydroxide (Magnesium Hydrox/Alum Hydrox 30 Ml Oral.Susp) 30 ml PO Q6H PRN PRN Reason: Heartburn/Nausea Amphetamine/Dextroamphetamine (Amphetamine Mixed Salts 10 Mg Tablet) 10 mg PO BID@0800,1700 [facility] Last Admin: 09/25/23 08:52 Dose: 10 mg Atorvastatin Calcium (Atorvastatin Calcium 40 Mg Tablet) 40 mg PO DAILY [facility] Last Admin: 09/25/23 08:52 Dose: 40 mg Docusate Sodium (Docusate Sodium 100 Mg Capsule) 100 mg PO BID [facility] Last Admin: 09/25/23 08:52 Dose: 100 mg Empagliflozin (Empagliflozin 25 Mg Tablet) 25 mg PO DAILY [facility] Last Admin: 09/25/23 08:52 Dose: 25 mg Famotidine (Famotidine 20 Mg Tablet) 20 mg PO DAILY [facility] Last Admin: 09/25/23 08:52 Dose: 20 mg Ibuprofen (Ibuprofen 600 Mg Tablet) 600 mg PO Q6H PRN PRN Reason: pain not relieved by tylenol Last Admin: 09/20/23 20:05 Dose: 600 mg Insulin Glargine (Insulin Glargine,Hum.Rec.Anlog 100 Unit/Ml 10 Ml Vial) 6 unit SUBCUT DAILY [facility] Last Admin: 09/25/23 08:53 Dose: 6 unit Magnesium Hydroxide (Milk Of Magnesia 30 Ml Oral.Susp) 30 ml PO DAILY PRN PRN Reason: Constipation Last Admin: 09/20/23 15:31 Dose: 30 ml Magnesium Oxide (Magnesium Oxide 400 Mg Tablet) 400 mg PO BIDPC [facility] Last Admin: 09/25/23 08:52 Dose: 400 mg Memantine (Memantine Hcl 10 Mg Tablet) 10 mg PO BID [facility] Last Admin: 09/25/23 08:52 Dose: 10 mg Metformin HCl (Metformin Hcl 1,000 Mg Tablet) 1,000 mg PO BID [facility] Last Admin: 09/25/23 08:52 Dose: 1,000 mg Nystatin (Nystatin Cream 15 Gm Tube) 1 appl TOPICAL BID [facility]; Protocol Last Admin: 09/25/23 09:34 Dose: Not Given Olanzapine (Olanzapine 2.5 Mg Tablet) 2.5 mg PO Q4H PRN PRN Reason: anxiety/agitation Last Admin: 09/23/23 22:58 Dose: 2.5 mg Senna (Sennosides 8.6 Mg Tablet) 17.2 mg PO BEDTIME [facility] Last Admin: 09/25/23 02:39 Dose: 17.2 mg Sertraline HCl (Sertraline Hcl 50 Mg Tablet) 150 mg PO DAILY [facility] Last Admin: 09/25/23 08:52 Dose: 150 mg Trazodone HCl (Trazodone Hcl 50 Mg Tablet) 50 mg PO BEDTIME MRX1 PRN PRN Reason: Insomnia Last Admin: 09/23/23 22:58 Dose: 50 mg Allergies Allergies Allergy/AdvReac Type Severity Reaction Status Date / Time No Known Allergies Allergy Verified 03/23/23 18:13 Assessment & Plan Assessment & Plan (1) Alzheimer's dementia: Status: Acute Code(s): G30.9 - Alzheimer's disease, unspecified; F02.80 - Dementia in other diseases classified elsewhere, unspecified severity, without behavioral disturbance, psychotic disturbance, mood disturbance, and anxiety Assessment and Plan: August 24 58 years old woman with relative young age onset at Alzheimer dementia but overall clinical picture is affected by significant depression, which continues to be the predominant feature of for clinical picture. Conventional dementia medicines such as donepezil or memantine can be tried but usually do not make significant difference. I would suggest memantine 10 mg twice a day and donepezil 10 mg daily. Recently a new dementia at drug for Alzheimer was approved but only for relatively mild dementia or mild cognitive impairment type of patients. She would not qualify for that drug. 08/11 continue current treatment plan Plan 1. Continue same treatment. 2. Waiting for placement. 3. Lower Haldol to 1 mg p.o. q.h.s. on July 28. August 17 we discontinue Haldol at night. 4. August 18 we decided to add a low dose of Adderall 5 mg p.o. b.i.d. to target her hypoactivity. So far, had been a modest improvement of her hypoactive so we increase other up to 10 mg p.o. b.i.d. on August 24. 5. Increase Zoloft up to 150 mg p.o. q.a.m. 09/23: Continue current management and treatment plan. Plan Continue with same treatment, waiting for placement Reason for continued inpatient stay Substantial Risk for: inability to function, rapid decompensation and med/psych decompensation Time Spent With Patient Time: Total time managing care of this patient today __20__ minutes.
[2023-09-25 18:00] VITALS: BP 132/60; PULSE 79; RESP 18; TEMP 36.9; O2SAT 97
[2023-09-25] MEDS: Nystatin Cream 15 GM TUBE 1 APPL TOPICAL (20:59)
[2023-09-25] MEDS: traZODone HCL 50 MG TABLET PO (22:59)
[2023-09-25] MEDS: OLANZapine 2.5 MG TABLET PO (22:59)
[2023-09-26 08:30] VITALS: BP 132/78; PULSE 80; RESP 18; TEMP 36.7; O2SAT 96
[2023-09-26] MEDS: Insulin Glargine,Hum.rec.anlog 100 UNIT/ML 10 ML VIAL 6 UNIT SUBCUT (08:38)
[2023-09-26] MEDS: Docusate Sodium 100 MG CAPSULE PO ×2 (08:38→20:58)
[2023-09-26] MEDS: Atorvastatin Calcium 40 MG TABLET PO (08:38)
[2023-09-26] MEDS: Sertraline HCL 50 MG TABLET 150 MG PO (08:38)
[2023-09-26] MEDS: Amphetamine Mixed Salts 10 MG TABLET PO ×2 (08:39→16:44)
[2023-09-26] MEDS: metFORMIN HCl 1,000 MG TABLET 1000 MG PO ×2 (08:39→20:58)
[2023-09-26] MEDS: Magnesium Oxide 400 MG TABLET PO ×2 (08:39→16:44)
[2023-09-26] MEDS: Empagliflozin 25 MG TABLET PO (08:39)
[2023-09-26] MEDS: Memantine HCl 10 MG TABLET PO ×2 (08:39→20:59)
[2023-09-26] MEDS: Famotidine 20 MG TABLET PO (08:39)
[2023-09-26] MEDS: Nystatin Cream 15 GM TUBE 1 APPL TOPICAL ×2 (08:44→20:58)
--- NOTE | 2023-09-26 16:16 | HO.PSYCHPN ---
Subjective Subjective Date of Service: 09/26/23 Reason For Visit: hallucinations confusion Subjective Notes: Conditional Voluntary Interim History: The nursing staff reported the patient had been flat, cooperative, wandering in the unit visible and she has attended groups. The social work assistant reported that she was seen and assessed by several senior care facilities waiting for response. On interview the patient denies new symptoms, waiting for placement. Mental Status Exam Mental Status Exam Patient Appearance: Well Grooomed and Appropriate Patient Orientation: Person and Situation Level of Consciousness: Awake and Appropriate Patient Behavior: Guarded and Passive Mood Description: Withdrawn Affect Description: Constricted Patient Cognition Impaired: Yes Ability to Follow Directions: Good Speech Pattern: Clear Hallucinations: None Delusions: Not Present Thought Process: Distracted and Evasive Thought Content: positive for Obsessional Thoughts and positive for Poverty of Content Judgement: Fair Diagnostics Vital Signs (24Hr): Vital Signs - 24 hr 09/25/23 18:00 09/26/23 08:30 Temperature 98.4 F 98.1 F Pulse Rate 79 80 Respiratory Rate 18 18 Blood Pressure 132/60 132/78 Pulse Oximetry 97 96 Oxygen Delivery Method Room Air Room Air BMI result Body Mass Index 26.5 Labs 09/04/23 07:52 09/21/23 08:01 Imaging Radiology Impressions: ITS Impressions Brain MRI 04/03/23 15:30 IMPRESSION: No acute infarct, mass lesion, intracranial hemorrhage, or evidence of hydrocephalus. Mild nonspecific T2/FLAIR hyperintensity in the cerebral white matter and danny presumably on the basis of chronic microangiopathy. Cervical Spine CT 07/03/23 20:12 IMPRESSION: No acute findings within the cervical spine. The cervical central canal is not well assessed on this CT due to artifact. If weakness persists, a cervical spine MRI would be more sensitive in assessment. Medications Medications Current Medications Amphetamine/Dextroamphetamine (Amphetamine Mixed Salts 10 Mg Tablet) 10 mg PO BID@0800,1700 [facility] Last Admin: 09/26/23 08:39 Dose: 10 mg Docusate Sodium (Docusate Sodium 100 Mg Capsule) 100 mg PO BID [facility] Last Admin: 09/26/23 08:38 Dose: 100 mg Ibuprofen (Ibuprofen 600 Mg Tablet) 600 mg PO Q6H PRN PRN Reason: pain not relieved by tylenol Last Admin: 09/20/23 20:05 Dose: 600 mg Insulin Glargine (Insulin Glargine,Hum.Rec.Anlog 100 Unit/Ml 10 Ml Vial) 6 unit SUBCUT DAILY [facility] Last Admin: 09/26/23 08:38 Dose: 6 unit Magnesium Oxide (Magnesium Oxide 400 Mg Tablet) 400 mg PO BIDPC [facility] Last Admin: 09/26/23 08:39 Dose: 400 mg Memantine (Memantine Hcl 10 Mg Tablet) 10 mg PO BID [facility] Last Admin: 09/26/23 08:39 Dose: 10 mg Metformin HCl (Metformin Hcl 1,000 Mg Tablet) 1,000 mg PO BID [facility] Last Admin: 09/26/23 08:39 Dose: 1,000 mg Nystatin (Nystatin Cream 15 Gm Tube) 1 appl TOPICAL BID [facility]; Protocol Last Admin: 09/26/23 08:44 Dose: 1 appl Olanzapine (Olanzapine 2.5 Mg Tablet) 2.5 mg PO Q4H PRN PRN Reason: anxiety/agitation Last Admin: 09/25/23 22:59 Dose: 2.5 mg Senna (Sennosides 8.6 Mg Tablet) 17.2 mg PO BEDTIME [facility] Last Admin: 09/25/23 20:59 Dose: 17.2 mg Sertraline HCl (Sertraline Hcl 50 Mg Tablet) 150 mg PO DAILY [facility] Last Admin: 09/26/23 08:38 Dose: 150 mg Allergies Allergies Allergy/AdvReac Type Severity Reaction Status Date / Time No Known Allergies Allergy Verified 03/23/23 18:13 Assessment & Plan Assessment & Plan (1) Alzheimer's dementia: Status: Acute Code(s): G30.9 - Alzheimer's disease, unspecified; F02.80 - Dementia in other diseases classified elsewhere, unspecified severity, without behavioral disturbance, psychotic disturbance, mood disturbance, and anxiety Assessment and Plan: August 24 58 years old woman with relative young age onset at Alzheimer dementia but overall clinical picture is affected by significant depression, which continues to be the predominant feature of for clinical picture. Conventional dementia medicines such as donepezil or memantine can be tried but usually do not make significant difference. I would suggest memantine 10 mg twice a day and donepezil 10 mg daily. Recently a new dementia at drug for Alzheimer was approved but only for relatively mild dementia or mild cognitive impairment type of patients. She would not qualify for that drug. 08/11 continue current treatment plan Plan 1. Continue same treatment. 2. Waiting for placement. 3. Lower Haldol to 1 mg p.o. q.h.s. on July 28. August 17 we discontinue Haldol at night. 4. August 18 we decided to add a low dose of Adderall 5 mg p.o. b.i.d. to target her hypoactivity. So far, had been a modest improvement of her hypoactive so we increase other up to 10 mg p.o. b.i.d. on August 24. 5. Increase Zoloft up to 150 mg p.o. q.a.m. 09/23: Continue current management and treatment plan. Plan Continue with same treatment, waiting for placement Reason for continued inpatient stay Substantial Risk for: inability to function, rapid decompensation and med/psych decompensation Time Spent With Patient Time: Total time managing care of this patient today __20__ minutes.
[2023-09-26 18:00] VITALS: BP 123/75; PULSE 82; RESP 17; TEMP 36.8; O2SAT 96
[2023-09-26] MEDS: OLANZapine 2.5 MG TABLET PO (20:59)
[2023-09-26] MEDS: Sennosides 8.6 MG TABLET 17.2 MG PO (20:59)
[2023-09-26] MEDS: Ibuprofen 600 MG TABLET PO (22:11)
[2023-09-27 09:55] VITALS: BP 110/70; PULSE 78; RESP 15; TEMP 36.8; O2SAT 96
[2023-09-27] MEDS: Insulin Glargine,Hum.rec.anlog 100 UNIT/ML 10 ML VIAL 6 UNIT SUBCUT (09:56)
[2023-09-27] MEDS: Memantine HCl 10 MG TABLET PO ×2 (09:57→20:40)
[2023-09-27] MEDS: Sertraline HCL 50 MG TABLET 150 MG PO (09:57)
[2023-09-27] MEDS: Magnesium Oxide 400 MG TABLET PO ×2 (09:57→17:51)
[2023-09-27] MEDS: Amphetamine Mixed Salts 10 MG TABLET PO ×2 (09:57→17:51)
[2023-09-27] MEDS: metFORMIN HCl 1,000 MG TABLET 1000 MG PO ×2 (09:57→20:41)
[2023-09-27] MEDS: Docusate Sodium 100 MG CAPSULE PO ×2 (09:57→20:40)
[2023-09-27] MEDS: Ibuprofen 600 MG TABLET PO (12:36)
[2023-09-27] MEDS: Nystatin Cream 15 GM TUBE 1 APPL TOPICAL ×2 (13:11→20:41)
--- NOTE | 2023-09-27 13:44 | P.PNPSI_ITS ---
Subjective Subjective Date of Service: 09/27/23 Reason For Visit: hallucinations confusion Subjective Notes: Conditional Voluntary Interim History: The nursing staff reported the patient had been pleasant, confused compliant with treatment. She was seen tearful and depressed in the evening. The social services designee reported that [facility] can take her but we need the financial clearance. On interview the patient denies new symptoms looks pleasantly confused, easily redirectable. Mental Status Exam Mental Status Exam Patient Appearance: Appropriate Patient Orientation: Person Level of Consciousness: Awake Patient Behavior: Guarded and Passive Mood Description: Withdrawn Affect Description: Calm Patient Cognition Impaired: Yes Ability to Follow Directions: Good Speech Pattern: Clear Hallucinations: None Delusions: Not Present Thought Process: Distracted and Slowed Thinking Thought Content: positive for [place] and positive for Poverty of Content Judgement: Poor Diagnostics Vital Signs (24Hr): Vital Signs - 24 hr 09/26/23 18:00 09/27/23 09:55 Temperature 98.3 F 98.2 F Pulse Rate 82 78 Respiratory Rate 17 15 Blood Pressure 123/75 110/70 Pulse Oximetry 96 96 Oxygen Delivery Method Room Air Room Air BMI result Body Mass Index 26.5 Labs 09/04/23 07:52 09/21/23 08:01 Imaging Radiology Impressions: ITS Impressions Brain MRI 04/03/23 15:30 IMPRESSION: No acute infarct, mass lesion, intracranial hemorrhage, or evidence of hydrocephalus. Mild nonspecific T2/FLAIR hyperintensity in the cerebral white matter and danny presumably on the basis of chronic microangiopathy. Cervical Spine CT 07/03/23 20:12 IMPRESSION: No acute findings within the cervical spine. The cervical central canal is not well assessed on this CT due to artifact. If weakness persists, a cervical spine MRI would be more sensitive in assessment. Medications Medications Current Medications Amphetamine/Dextroamphetamine (Amphetamine Mixed Salts 10 Mg Tablet) 10 mg PO BID@0800,1700 [facility] Last Admin: 09/27/23 09:57 Dose: 10 mg Docusate Sodium (Docusate Sodium 100 Mg Capsule) 100 mg PO BID [facility] Last Admin: 09/27/23 09:57 Dose: 100 mg Ibuprofen (Ibuprofen 600 Mg Tablet) 600 mg PO Q6H PRN PRN Reason: pain not relieved by tylenol Last Admin: 09/27/23 12:36 Dose: 600 mg Insulin Glargine (Insulin Glargine,Hum.Rec.Anlog 100 Unit/Ml 10 Ml Vial) 6 unit SUBCUT DAILY [facility] Last Admin: 09/27/23 09:56 Dose: 6 unit Magnesium Oxide (Magnesium Oxide 400 Mg Tablet) 400 mg PO BIDPC [facility] Last Admin: 09/27/23 09:57 Dose: 400 mg Memantine (Memantine Hcl 10 Mg Tablet) 10 mg PO BID [facility] Last Admin: 09/27/23 09:57 Dose: 10 mg Metformin HCl (Metformin Hcl 1,000 Mg Tablet) 1,000 mg PO BID [facility] Last Admin: 09/27/23 09:57 Dose: 1,000 mg Nystatin (Nystatin Cream 15 Gm Tube) 1 appl TOPICAL BID [facility]; Protocol Last Admin: 09/27/23 13:11 Dose: 1 appl Olanzapine (Olanzapine 2.5 Mg Tablet) 2.5 mg PO Q4H PRN PRN Reason: anxiety/agitation Last Admin: 09/26/23 20:59 Dose: 2.5 mg Senna (Sennosides 8.6 Mg Tablet) 17.2 mg PO BEDTIME [facility] Last Admin: 09/26/23 20:59 Dose: 17.2 mg Sertraline HCl (Sertraline Hcl 50 Mg Tablet) 150 mg PO DAILY [facility] Last Admin: 09/27/23 09:57 Dose: 150 mg Allergies Allergies Allergy/AdvReac Type Severity Reaction Status Date / Time No Known Allergies Allergy Verified 03/23/23 18:13 Assessment & Plan Assessment & Plan (1) Alzheimer's dementia: Status: Acute Code(s): G30.9 - Alzheimer's disease, unspecified; F02.80 - Dementia in other diseases classified elsewhere, unspecified severity, without behavioral disturbance, psychotic disturbance, mood disturbance, and anxiety Assessment and Plan: August 24 58 years old woman with relative young age onset at Alzheimer dementia but overall clinical picture is affected by significant depression, which continues to be the predominant feature of for clinical picture. Conventional dementia medicines such as donepezil or memantine can be tried but usually do not make significant difference. I would suggest memantine 10 mg twice a day and donepezil 10 mg daily. Recently a new dementia at drug for Alzheimer was approved but only for relatively mild dementia or mild cognitive impairment type of patients. She would not qualify for that drug. 08/11 continue current treatment plan Plan 1. Continue same treatment. 2. Waiting for placement. 3. Lower Haldol to 1 mg p.o. q.h.s. on July 28. August 17 we discontinue Haldol at night. 4. August 18 we decided to add a low dose of Adderall 5 mg p.o. b.i.d. to target her hypoactivity. So far, had been a modest improvement of her hypoactive so we increase other up to 10 mg p.o. b.i.d. on August 24. 5. Increase Zoloft up to 150 mg p.o. q.a.m. In August. We are going to increase up to 200 mg on September 27. Plan Continue with same treatment, waiting for placement Reason for continued inpatient stay Substantial Risk for: inability to function, rapid decompensation and med/psych decompensation Time Spent With Patient Time: Total time managing care of this patient today __20__ minutes.
[2023-09-27] MEDS: Sennosides 8.6 MG TABLET 17.2 MG PO (20:41)
[2023-09-27 20:56] VITALS: BP 142/75; PULSE 74; RESP 16; TEMP 36.4; O2SAT 96
[2023-09-28 06:00] VITALS: BP 109/65; PULSE 63; RESP 16; TEMP 36.8; O2SAT 94
[2023-09-28 07:00] VITALS: BMI 25.9
[2023-09-28] MEDS: Insulin Glargine,Hum.rec.anlog 100 UNIT/ML 10 ML VIAL 6 UNIT SUBCUT (08:10)
[2023-09-28] MEDS: Docusate Sodium 100 MG CAPSULE PO ×2 (08:11→20:23)
[2023-09-28] MEDS: Memantine HCl 10 MG TABLET PO ×2 (08:11→20:23)
[2023-09-28] MEDS: metFORMIN HCl 1,000 MG TABLET 1000 MG PO ×2 (08:11→20:22)
[2023-09-28] MEDS: Sertraline HCL 100 MG TABLET 200 MG PO (08:11)
[2023-09-28] MEDS: Magnesium Oxide 400 MG TABLET PO ×2 (08:11→16:38)
[2023-09-28] MEDS: Amphetamine Mixed Salts 10 MG TABLET PO ×2 (08:11→16:38)
[2023-09-28 08:24] LABS: Creatinine Clr Calc Pharmacy 96.9; Estimated Glomerular Filt Rate > 60
[2023-09-28] MEDS: Nystatin Cream 15 GM TUBE 1 APPL TOPICAL ×2 (10:30→20:26)
--- NOTE | 2023-09-28 11:14 | P.PNPSI_ITS ---
Subjective Subjective Date of Service: 09/28/23 Reason For Visit: hallucinations confusion Subjective Notes: Conditional Voluntary Interim History: the nursing staff reported no changes in her mental status, she remains confused but easily redirectable. On interview the patient denies new symptoms, waiting for placement no side effects with increase of Zoloft of up to 200 mg p.o. q.h.s. Mental Status Exam Mental Status Exam Patient Appearance: Appropriate Patient Orientation: Person and Situation Level of Consciousness: Awake and Appropriate Patient Behavior: Guarded and Passive Mood Description: Withdrawn Affect Description: Constricted Patient Cognition Impaired: Yes Ability to Follow Directions: Good Speech Pattern: Clear Hallucinations: None Delusions: Not Present Thought Process: Distracted Thought Content: positive for [place] and positive for Perseveration Judgement: Fair Diagnostics Vital Signs (24Hr): Vital Signs - 24 hr 09/27/23 20:56 09/28/23 06:00 Temperature 97.6 F 98.3 F Pulse Rate 74 63 Respiratory Rate 16 16 Blood Pressure 142/75 H 109/65 Pulse Oximetry 96 94 Oxygen Delivery Method Room Air Room Air BMI result Body Mass Index 25.9 Labs 09/04/23 07:52 09/28/23 07:21 Labs: Laboratory Results - last 48 hr 09/28/23 07:21 Creatinine 0.57 Estim Creat Clear Calc 96.9 Estimated GFR > 60 Imaging Radiology Impressions: ITS Impressions Brain MRI 04/03/23 15:30 IMPRESSION: No acute infarct, mass lesion, intracranial hemorrhage, or evidence of hydrocephalus. Mild nonspecific T2/FLAIR hyperintensity in the cerebral white matter and danny presumably on the basis of chronic microangiopathy. Cervical Spine CT 07/03/23 20:12 IMPRESSION: No acute findings within the cervical spine. The cervical central canal is not well assessed on this CT due to artifact. If weakness persists, a cervical spine MRI would be more sensitive in assessment. Medications Medications Current Medications Amphetamine/Dextroamphetamine (Amphetamine Mixed Salts 10 Mg Tablet) 10 mg PO BID@0800,1700 [facility]S AT [facility] Last Admin: 09/28/23 08:11 Dose: 10 mg Docusate Sodium (Docusate Sodium 100 Mg Capsule) 100 mg PO BID [facility] 234 [facility]S AT [facility] Last Admin: 09/28/23 08:11 Dose: 100 mg Ibuprofen (Ibuprofen 600 Mg Tablet) 600 mg PO Q6H PRN PRN Reason: pain not relieved by tylenol Last Admin: 09/27/23 12:36 Dose: 600 mg Insulin Glargine (Insulin Glargine,Hum.Rec.Anlog 100 Unit/Ml 10 Ml Vial) 6 unit SUBCUT DAILY [facility]S AT [facility] Last Admin: 09/28/23 08:10 Dose: 6 unit Magnesium Oxide (Magnesium Oxide 400 Mg Tablet) 400 mg PO BIDPC [facility] 234 BEDS AT [facility] Last Admin: 09/28/23 08:11 Dose: 400 mg Memantine (Memantine Hcl 10 Mg Tablet) 10 mg PO BID [facility] 234 B[facility]S AT [facility] Last Admin: 09/28/23 08:11 Dose: 10 mg Metformin HCl (Metformin Hcl 1,000 Mg Tablet) 1,000 mg PO BID [facility] 234 B[facility]S AT [facility] Last Admin: 09/28/23 08:11 Dose: 1,000 mg Nystatin (Nystatin Cream 15 Gm Tube) 1 appl TOPICAL BID [facility] 234 BEDS AT [facility]; Protocol Last Admin: 09/28/23 10:30 Dose: 1 appl Olanzapine (Olanzapine 2.5 Mg Tablet) 2.5 mg PO Q4H PRN PRN Reason: anxiety/agitation Last Admin: 09/26/23 20:59 Dose: 2.5 mg Senna (Sennosides 8.6 Mg Tablet) 17.2 mg PO BEDTIME [facility] 234 BEDS AT [facility] Last Admin: 09/27/23 20:41 Dose: 17.2 mg Sertraline HCl (Sertraline Hcl 100 Mg Tablet) 200 mg PO DAILY [facility] 234 BEDS AT [facility] Last Admin: 09/28/23 08:11 Dose: 200 mg Allergies Allergies Allergy/AdvReac Type Severity Reaction Status Date / Time No Known Allergies Allergy Verified 03/23/23 18:13 Assessment & Plan Assessment & Plan (1) Alzheimer's dementia: Status: Acute Code(s): G30.9 - Alzheimer's disease, unspecified; F02.80 - Dementia in other diseases classified elsewhere, unspecified severity, without behavioral disturbance, psychotic disturbance, mood disturbance, and anxiety Assessment and Plan: August 24 58 years old woman with relative young age onset at Alzheimer dementia but overall clinical picture is affected by significant depression, which continues to be the predominant feature of for clinical picture. Conventional dementia medicines such as donepezil or memantine can be tried but usually do not make significant difference. I would suggest memantine 10 mg twice a day and donepezil 10 mg daily. Recently a new dementia at drug for Alzheimer was approved but only for relatively mild dementia or mild cognitive impairment type of patients. She would not qualify for that drug. 08/11 continue current treatment plan Plan 1. Continue same treatment. 2. Waiting for placement. 3. Lower Haldol to 1 mg p.o. q.h.s. on July 28. August 17 we discontinue Haldol at night. 4. August 18 we decided to add a low dose of Adderall 5 mg p.o. b.i.d. to target her hypoactivity. So far, had been a modest improvement of her hypoactive so we increase other up to 10 mg p.o. b.i.d. on August 24. 5. Increase Zoloft up to 150 mg p.o. q.a.m. In August. We are going to increase up to 200 mg on September 27. Plan Continue with same treatment, waiting for placement Reason for continued inpatient stay Substantial Risk for: inability to function, rapid decompensation and med/psych decompensation Time Spent With Patient Time: Total time managing care of this patient today __20__ minutes.
[2023-09-28 18:00] VITALS: BP 124/66; PULSE 82; RESP 16; TEMP 36.3; O2SAT 97
[2023-09-28] MEDS: Sennosides 8.6 MG TABLET 17.2 MG PO (20:22)
[2023-09-29] MEDS: OLANZapine 2.5 MG TABLET PO (02:38)
[2023-09-29 08:00] VITALS: BP 128/66; PULSE 69; RESP 18; TEMP 36.3; O2SAT 97
[2023-09-29] MEDS: Memantine HCl 10 MG TABLET PO ×2 (08:14→20:51)
[2023-09-29] MEDS: metFORMIN HCl 1,000 MG TABLET 1000 MG PO ×2 (08:14→20:51)
[2023-09-29] MEDS: Sertraline HCL 100 MG TABLET 200 MG PO (08:15)
[2023-09-29] MEDS: Amphetamine Mixed Salts 10 MG TABLET PO ×2 (08:15→16:49)
[2023-09-29] MEDS: Insulin Glargine,Hum.rec.anlog 100 UNIT/ML 10 ML VIAL 6 UNIT SUBCUT (08:15)
[2023-09-29] MEDS: Docusate Sodium 100 MG CAPSULE PO ×2 (08:15→20:51)
[2023-09-29] MEDS: Magnesium Oxide 400 MG TABLET PO ×2 (08:15→17:34)
[2023-09-29] MEDS: Nystatin Cream 15 GM TUBE 1 APPL TOPICAL ×2 (09:01→20:54)
--- NOTE | 2023-09-29 12:56 | HO.PSYCHPN ---
Subjective Subjective Date of Service: 09/29/23 Reason For Visit: hallucinations confusion Subjective Notes: Conditional Voluntary Interim History: the nursing staff reported the patient had been compliant with treatment she had been upper last night and she needed Zyprexa p.r.n.. On interview the patient denies new symptoms pleasantly confused easily redirectable. Waiting for placement. Mental Status Exam Mental Status Exam Patient Appearance: Appropriate Patient Orientation: Person Level of Consciousness: Awake Patient Behavior: Cooperative Mood Description: Calm Affect Description: Constricted Patient Cognition Impaired: Yes Ability to Follow Directions: Good Speech Pattern: Clear Hallucinations: None Delusions: Not Present Thought Process: Distracted Thought Content: positive for [place] and positive for Circumstantial Judgement: Fair Diagnostics Vital Signs (24Hr): Vital Signs - 24 hr 09/28/23 18:00 09/29/23 08:00 Temperature 97.4 F 97.3 F Pulse Rate 82 69 Respiratory Rate 16 18 Blood Pressure 124/66 128/66 Pulse Oximetry 97 97 Oxygen Delivery Method Room Air Room Air BMI result Body Mass Index 25.9 Labs 09/04/23 07:52 09/28/23 07:21 Labs: Laboratory Results - last 48 hr 09/28/23 07:21 Creatinine 0.57 Estim Creat Clear Calc 96.9 Estimated GFR > 60 Imaging Radiology Impressions: ITS Impressions Brain MRI 04/03/23 15:30 IMPRESSION: No acute infarct, mass lesion, intracranial hemorrhage, or evidence of hydrocephalus. Mild nonspecific T2/FLAIR hyperintensity in the cerebral white matter and danny presumably on the basis of chronic microangiopathy. Cervical Spine CT 07/03/23 20:12 IMPRESSION: No acute findings within the cervical spine. The cervical central canal is not well assessed on this CT due to artifact. If weakness persists, a cervical spine MRI would be more sensitive in assessment. Medications Medications Current Medications Amphetamine/Dextroamphetamine (Amphetamine Mixed Salts 10 Mg Tablet) 10 mg PO BID@0800,1700 [facility] Last Admin: 09/29/23 08:15 Dose: 10 mg Docusate Sodium (Docusate Sodium 100 Mg Capsule) 100 mg PO BID [facility] Last Admin: 09/29/23 08:15 Dose: 100 mg Ibuprofen (Ibuprofen 600 Mg Tablet) 600 mg PO Q6H PRN PRN Reason: pain not relieved by tylenol Last Admin: 09/27/23 12:36 Dose: 600 mg Insulin Glargine (Insulin Glargine,Hum.Rec.Anlog 100 Unit/Ml 10 Ml Vial) 6 unit SUBCUT DAILY [facility] Last Admin: 09/29/23 08:15 Dose: 6 unit Magnesium Oxide (Magnesium Oxide 400 Mg Tablet) 400 mg PO BIDPC [facility] Last Admin: 09/29/23 08:15 Dose: 400 mg Memantine (Memantine Hcl 10 Mg Tablet) 10 mg PO BID [facility] Last Admin: 09/29/23 08:14 Dose: 10 mg Metformin HCl (Metformin Hcl 1,000 Mg Tablet) 1,000 mg PO BID [facility] Last Admin: 09/29/23 08:14 Dose: 1,000 mg Nystatin (Nystatin Cream 15 Gm Tube) 1 appl TOPICAL BID [facility]; Protocol Last Admin: 09/29/23 09:01 Dose: 1 appl Olanzapine (Olanzapine 2.5 Mg Tablet) 2.5 mg PO Q4H PRN PRN Reason: anxiety/agitation Last Admin: 09/29/23 02:38 Dose: 2.5 mg Senna (Sennosides 8.6 Mg Tablet) 17.2 mg PO BEDTIME [facility] Last Admin: 09/28/23 20:22 Dose: 17.2 mg Sertraline HCl (Sertraline Hcl 100 Mg Tablet) 200 mg PO DAILY [facility] Last Admin: 09/29/23 08:15 Dose: 200 mg Allergies Allergies Allergy/AdvReac Type Severity Reaction Status Date / Time No Known Allergies Allergy Verified 03/23/23 18:13 Assessment & Plan Assessment & Plan (1) Alzheimer's dementia: Status: Acute Code(s): G30.9 - Alzheimer's disease, unspecified; F02.80 - Dementia in other diseases classified elsewhere, unspecified severity, without behavioral disturbance, psychotic disturbance, mood disturbance, and anxiety Assessment and Plan: August 24 58 years old woman with relative young age onset at Alzheimer dementia but overall clinical picture is affected by significant depression, which continues to be the predominant feature of for clinical picture. Conventional dementia medicines such as donepezil or memantine can be tried but usually do not make significant difference. I would suggest memantine 10 mg twice a day and donepezil 10 mg daily. Recently a new dementia at drug for Alzheimer was approved but only for relatively mild dementia or mild cognitive impairment type of patients. She would not qualify for that drug. 08/11 continue current treatment plan Plan 1. Continue same treatment. 2. Waiting for placement. 3. Lower Haldol to 1 mg p.o. q.h.s. on July 28. August 17 we discontinue Haldol at night. 4. August 18 we decided to add a low dose of Adderall 5 mg p.o. b.i.d. to target her hypoactivity. So far, had been a modest improvement of her hypoactive so we increase other up to 10 mg p.o. b.i.d. on August 24. 5. Increase Zoloft up to 150 mg p.o. q.a.m. In August. We are going to increase up to 200 mg on September 27. Plan Continue with same treatment, waiting for placement Reason for continued inpatient stay Substantial Risk for: inability to function, rapid decompensation and med/psych decompensation Time Spent With Patient Time: Total time managing care of this patient today __20__ minutes.
[2023-09-29 19:42] VITALS: BP 122/65; PULSE 73; RESP 16; TEMP 36.6; O2SAT 96
[2023-09-29] MEDS: Sennosides 8.6 MG TABLET 17.2 MG PO (20:51)
--- NOTE | 2023-09-29 23:32 | PC.NURSE ---
Assumed care of patient 19:30. See assessments and eMAR for full details. Handoff report given 23:25.
[2023-09-30] MEDS: Ibuprofen 600 MG TABLET PO ×2 (02:06→09:12)
[2023-09-30 09:02] VITALS: BP 120/65; PULSE 71; RESP 16; TEMP 36.3; O2SAT 96
[2023-09-30] MEDS: Insulin Glargine,Hum.rec.anlog 100 UNIT/ML 10 ML VIAL 6 UNIT SUBCUT (09:04)
[2023-09-30] MEDS: metFORMIN HCl 1,000 MG TABLET 1000 MG PO ×2 (09:04→20:25)
[2023-09-30] MEDS: Memantine HCl 10 MG TABLET PO ×2 (09:04→20:25)
[2023-09-30] MEDS: Amphetamine Mixed Salts 10 MG TABLET PO (09:04)
[2023-09-30] MEDS: Sertraline HCL 100 MG TABLET 200 MG PO (09:04)
[2023-09-30] MEDS: Docusate Sodium 100 MG CAPSULE PO ×2 (09:04→20:26)
[2023-09-30] MEDS: Magnesium Oxide 400 MG TABLET PO (09:05)
--- NOTE | 2023-09-30 14:17 | HO.PSYCHPN ---
Subjective Subjective Date of Service: 09/30/23 Reason For Visit: hallucinations confusion Subjective Notes: Section 8 Interim History: Pt more agitated in evening asking to be discharged home and asking staff to let her go. She was yelling, which is uncharacteristic of her. She later asked RN to let her call family member, which she did with good effect. She does appear slightly more aware of her surroundings- assume thanks to adderall. She may also be more irritable due to it. No signs of psychosis or delusions. otherwise pt not oriented to place, situation, month or year. She reports intermittent episodes of headache. Review of Systems Review of Systems Unremarkable Yes all other systems are reviewed and are negative and Unobtainable due to mental status Constitutional: Reports as per HPI, Denies chills, Denies fatigue, Denies fever(s) and Denies headache(s) Denies headache(s) Cardiovascular: Denies chest pain and Denies dyspnea Respiratory: Denies cough and Denies dyspnea Gastrointestinal: Denies abdominal pain, Denies constipation and Denies vomiting Denies headache(s) and Denies focal weakness Psychiatric: Denies auditory hallucinations, Reports hallucinations (Per the patient's daughter. Patient denies this), Denies tactile hallucinations and Denies suicidal ideation Endocrine: Denies fatigue Mental Status Exam Mental Status Exam Patient Appearance: Appropriate Patient Orientation: Person Level of Consciousness: Awake Patient Behavior: Cooperative Behavior Comments: Eyes remain closed Mood Description: Calm Affect Description: Constricted Patient Cognition Impaired: Yes Ability to Follow Directions: Good Speech Pattern: Clear Memory Description: Working Impaired Diagnostics Vital Signs (24Hr): Vital Signs - 24 hr 09/29/23 19:42 09/30/23 09:02 Temperature 97.8 F 97.4 F Pulse Rate 73 71 Respiratory Rate 16 16 Blood Pressure 122/65 120/65 Pulse Oximetry 96 96 Oxygen Delivery Method Room Air Room Air BMI result Body Mass Index 25.9 Labs 09/04/23 07:52 09/28/23 07:21 Imaging Radiology Impressions: ITS Impressions Brain MRI 04/03/23 15:30 IMPRESSION: No acute infarct, mass lesion, intracranial hemorrhage, or evidence of hydrocephalus. Mild nonspecific T2/FLAIR hyperintensity in the cerebral white matter and danny presumably on the basis of chronic microangiopathy. Cervical Spine CT 07/03/23 20:12 IMPRESSION: No acute findings within the cervical spine. The cervical central canal is not well assessed on this CT due to artifact. If weakness persists, a cervical spine MRI would be more sensitive in assessment. Medications Medications Current Medications Amphetamine/Dextroamphetamine (Amphetamine Mixed Salts 10 Mg Tablet) 10 mg PO BID@0800,1700 [facility] Last Admin: 09/30/23 09:04 Dose: 10 mg Docusate Sodium (Docusate Sodium 100 Mg Capsule) 100 mg PO BID [facility] Last Admin: 09/30/23 09:04 Dose: 100 mg Insulin Glargine (Insulin Glargine,Hum.Rec.Anlog 100 Unit/Ml 10 Ml Vial) 6 unit SUBCUT DAILY [facility] Last Admin: 09/30/23 09:04 Dose: 6 unit Magnesium Oxide (Magnesium Oxide 400 Mg Tablet) 400 mg PO BIDPC [facility] Last Admin: 09/30/23 09:05 Dose: 400 mg Memantine (Memantine Hcl 10 Mg Tablet) 10 mg PO BID [facility] Last Admin: 09/30/23 09:04 Dose: 10 mg Metformin HCl (Metformin Hcl 1,000 Mg Tablet) 1,000 mg PO BID [facility] Last Admin: 09/30/23 09:04 Dose: 1,000 mg Nystatin (Nystatin Cream 15 Gm Tube) 1 appl TOPICAL BID [facility]; Protocol Last Admin: 09/30/23 13:31 Dose: Not Given Olanzapine (Olanzapine 2.5 Mg Tablet) 2.5 mg PO Q4H PRN PRN Reason: anxiety/agitation Last Admin: 09/29/23 02:38 Dose: 2.5 mg Senna (Sennosides 8.6 Mg Tablet) 17.2 mg PO BEDTIME [facility] Last Admin: 09/29/23 20:51 Dose: 17.2 mg Sertraline HCl (Sertraline Hcl 100 Mg Tablet) 200 mg PO DAILY [facility] Last Admin: 09/30/23 09:04 Dose: 200 mg Allergies Allergies Allergy/AdvReac Type Severity Reaction Status Date / Time No Known Allergies Allergy Verified 03/23/23 18:13 Assessment & Plan Assessment & Plan (1) Alzheimer's dementia: Status: Acute Code(s): G30.9 - Alzheimer's disease, unspecified; F02.80 - Dementia in other diseases classified elsewhere, unspecified severity, without behavioral disturbance, psychotic disturbance, mood disturbance, and anxiety Assessment and Plan: August 24 58 years old woman with relative young age onset at Alzheimer dementia but overall clinical picture is affected by significant depression, which continues to be the predominant feature of for clinical picture. Conventional dementia medicines such as donepezil or memantine can be tried but usually do not make significant difference. I would suggest memantine 10 mg twice a day and donepezil 10 mg daily. Recently a new dementia at drug for Alzheimer was approved but only for relatively mild dementia or mild cognitive impairment type of patients. She would not qualify for that drug. 08/11 continue current treatment plan Plan 1. Continue same treatment. 2. Waiting for placement. 3. Lower Haldol to 1 mg p.o. q.h.s. on July 28. August 17 we discontinue Haldol at night. 4. August 18 we decided to add a low dose of Adderall 5 mg p.o. b.i.d. to target her hypoactivity. So far, had been a modest improvement of her hypoactive so we increase other up to 10 mg p.o. b.i.d. on August 24. 5. Increase Zoloft up to 150 mg p.o. q.a.m. In August. We are going to increase up to 200 mg on September 27. Plan 09/30 Continue with same treatment, waiting for placement Reason for continued inpatient stay Substantial Risk for: inability to function Time Spent With Patient Time: Total time managing care of this patient today ____ minutes.
[2023-09-30] MEDS: OLANZapine 2.5 MG TABLET PO ×2 (16:53→20:25)
--- NOTE | 2023-09-30 16:56 | PC.NURSE ---
PT BECAME AGITATED AND WAS YELLING AND PACING. SHE WAS STATING THAT SHE WANTED TO LEAVE THE HOSPITAL AND GO HOME. PT GIVEN ZYPREXA 2.5MG-EFFICACY PENDING.
[2023-09-30 19:31] VITALS: BP 135/70; PULSE 72; RESP 16; TEMP 36.2; O2SAT 96
[2023-09-30] MEDS: Nystatin Cream 15 GM TUBE 1 APPL TOPICAL (20:26)
[2023-09-30] MEDS: Sennosides 8.6 MG TABLET 17.2 MG PO (20:26)
[2023-09-30 21:25] VITALS: RESP 16
[2023-10-01 08:10] VITALS: BP 127/70; PULSE 68; RESP 16; TEMP 36.6; O2SAT 96
[2023-10-01] MEDS: Docusate Sodium 100 MG CAPSULE PO ×2 (08:12→20:19)
[2023-10-01] MEDS: Sertraline HCL 100 MG TABLET 200 MG PO (08:12)
[2023-10-01] MEDS: metFORMIN HCl 1,000 MG TABLET 1000 MG PO ×2 (08:12→20:19)
[2023-10-01] MEDS: Amphetamine Mixed Salts 10 MG TABLET PO ×2 (08:12→17:30)
[2023-10-01] MEDS: Magnesium Oxide 400 MG TABLET PO ×2 (08:12→17:30)
[2023-10-01] MEDS: Memantine HCl 10 MG TABLET PO ×2 (08:13→20:19)
[2023-10-01] MEDS: Insulin Glargine,Hum.rec.anlog 100 UNIT/ML 10 ML VIAL 6 UNIT SUBCUT (08:17)
[2023-10-01] MEDS: Nystatin Cream 15 GM TUBE 1 APPL TOPICAL (11:01)
--- NOTE | 2023-10-01 16:28 | P.PNPSI_ITS ---
Subjective Subjective Date of Service: 10/01/23 Reason For Visit: hallucinations confusion Subjective Notes: Section 8 Interim History: Pt calmer, today. She slept through the night. She denies any physical concerns. No yelling today. Taking medications as prescribed. Review of Systems Review of Systems Unremarkable Yes all other systems are reviewed and are negative and Unobtainable due to mental status Constitutional: Reports as per HPI, Denies chills, Denies fatigue, Denies fever(s) and Denies headache(s) Denies headache(s) Cardiovascular: Denies chest pain and Denies dyspnea Respiratory: Denies cough and Denies dyspnea Gastrointestinal: Denies abdominal pain, Denies constipation and Denies vomiting Denies headache(s) and Denies focal weakness Psychiatric: Denies auditory hallucinations, Reports hallucinations (Per the patient's daughter. Patient denies this), Denies tactile hallucinations and Denies suicidal ideation Endocrine: Denies fatigue Mental Status Exam Mental Status Exam Patient Appearance: Appropriate Patient Orientation: Person Level of Consciousness: Awake Patient Behavior: Cooperative Behavior Comments: Eyes remain closed Mood Description: Calm Affect Description: Constricted Patient Cognition Impaired: Yes Ability to Follow Directions: Good Speech Pattern: Clear Memory Description: Working Impaired Diagnostics Vital Signs (24Hr): Vital Signs - 24 hr 09/30/23 19:31 09/30/23 21:25 10/01/23 08:10 Temperature 97.1 F 97.9 F Pulse Rate 72 68 Respiratory Rate 16 16 16 Blood Pressure 135/70 127/70 Pulse Oximetry 96 96 Oxygen Delivery Method Room Air Room Air BMI result Body Mass Index 25.9 Labs 09/04/23 07:52 09/28/23 07:21 Imaging Radiology Impressions: ITS Impressions Brain MRI 04/03/23 15:30 IMPRESSION: No acute infarct, mass lesion, intracranial hemorrhage, or evidence of hydrocephalus. Mild nonspecific T2/FLAIR hyperintensity in the cerebral white matter and danny presumably on the basis of chronic microangiopathy. Cervical Spine CT 07/03/23 20:12 IMPRESSION: No acute findings within the cervical spine. The cervical central canal is not well assessed on this CT due to artifact. If weakness persists, a cervical spine MRI would be more sensitive in assessment. Medications Medications Current Medications Amphetamine/Dextroamphetamine (Amphetamine Mixed Salts 10 Mg Tablet) 10 mg PO BID@0800,1700 [facility] Last Admin: 10/01/23 08:12 Dose: 10 mg Docusate Sodium (Docusate Sodium 100 Mg Capsule) 100 mg PO BID [facility] Last Admin: 10/01/23 08:12 Dose: 100 mg Insulin Glargine (Insulin Glargine,Hum.Rec.Anlog 100 Unit/Ml 10 Ml Vial) 6 unit SUBCUT DAILY [facility] Last Admin: 10/01/23 08:17 Dose: 6 unit Magnesium Oxide (Magnesium Oxide 400 Mg Tablet) 400 mg PO BIDPC [facility] Last Admin: 10/01/23 08:12 Dose: 400 mg Memantine (Memantine Hcl 10 Mg Tablet) 10 mg PO BID [facility] Last Admin: 10/01/23 08:13 Dose: 10 mg Metformin HCl (Metformin Hcl 1,000 Mg Tablet) 1,000 mg PO BID [facility] Last Admin: 10/01/23 08:12 Dose: 1,000 mg Nystatin (Nystatin Cream 15 Gm Tube) 1 appl TOPICAL BID [facility]; Protocol Last Admin: 10/01/23 11:01 Dose: 1 appl Olanzapine (Olanzapine 2.5 Mg Tablet) 2.5 mg PO Q4H PRN PRN Reason: anxiety/agitation Last Admin: 09/30/23 20:25 Dose: 2.5 mg Senna (Sennosides 8.6 Mg Tablet) 17.2 mg PO BEDTIME [facility] Last Admin: 09/30/23 20:26 Dose: 17.2 mg Sertraline HCl (Sertraline Hcl 100 Mg Tablet) 200 mg PO DAILY [facility] Last Admin: 10/01/23 08:12 Dose: 200 mg Allergies Allergies Allergy/AdvReac Type Severity Reaction Status Date / Time No Known Allergies Allergy Verified 03/23/23 18:13 Assessment & Plan Assessment & Plan (1) Alzheimer's dementia: Status: Acute Code(s): G30.9 - Alzheimer's disease, unspecified; F02.80 - Dementia in other diseases classified elsewhere, unspecified severity, without behavioral disturbance, psychotic disturbance, mood disturbance, and anxiety Assessment and Plan: August 24 58 years old woman with relative young age onset at Alzheimer dementia but overall clinical picture is affected by significant depression, which continues to be the predominant feature of for clinical picture. Conventional dementia medicines such as donepezil or memantine can be tried but usually do not make significant difference. I would suggest memantine 10 mg twice a day and donepezil 10 mg daily. Recently a new dementia at drug for Alzheimer was approved but only for relatively mild dementia or mild cognitive impairment type of patients. She would not qualify for that drug. 08/11 continue current treatment plan Plan 1. Continue same treatment. 2. Waiting for placement. 3. Lower Haldol to 1 mg p.o. q.h.s. on July 28. August 17 we discontinue Haldol at night. 4. August 18 we decided to add a low dose of Adderall 5 mg p.o. b.i.d. to target her hypoactivity. So far, had been a modest improvement of her hypoactive so we increase other up to 10 mg p.o. b.i.d. on August 24. 5. Increase Zoloft up to 150 mg p.o. q.a.m. In August. We are going to increase up to 200 mg on September 27. Plan 09/30 Continue with same treatment, waiting for placement 10/01 continue tx. Reason for continued inpatient stay Substantial Risk for: inability to function Time Spent With Patient Time: Total time managing care of this patient today ____ minutes.
[2023-10-01 18:00] VITALS: BP 119/58; PULSE 76; RESP 18; TEMP 36.9; O2SAT 97
[2023-10-01] MEDS: OLANZapine 2.5 MG TABLET PO (20:19)
[2023-10-01] MEDS: Sennosides 8.6 MG TABLET 17.2 MG PO (20:19)
[2023-10-01 21:07] LABS: Glucose, Whole Blood 159 mg/dL (60-115)
[2023-10-02 06:15] LABS: Glucose, Whole Blood 96 mg/dL (60-115)
[2023-10-02 08:15] VITALS: BP 126/57; PULSE 66; RESP 16; TEMP 36.8; O2SAT 96
[2023-10-02] MEDS: Sertraline HCL 100 MG TABLET 200 MG PO (08:30)
[2023-10-02] MEDS: metFORMIN HCl 1,000 MG TABLET 1000 MG PO ×2 (08:30→21:13)
[2023-10-02] MEDS: Insulin Glargine,Hum.rec.anlog 100 UNIT/ML 10 ML VIAL 6 UNIT SUBCUT (08:30)
[2023-10-02] MEDS: Magnesium Oxide 400 MG TABLET PO ×2 (08:30→17:11)
[2023-10-02] MEDS: Amphetamine Mixed Salts 10 MG TABLET PO ×2 (08:30→17:11)
[2023-10-02] MEDS: Memantine HCl 10 MG TABLET PO ×2 (08:30→21:13)
[2023-10-02] MEDS: Docusate Sodium 100 MG CAPSULE PO (08:30)
--- NOTE | 2023-10-02 13:39 | P.PNPSI_ITS ---
Subjective Subjective Date of Service: 10/02/23 Reason For Visit: hallucinations confusion Subjective Notes: Conditional Voluntary Interim History: The nursing staff reported the patient had been compliant with treatment she had been more awake and alert, she has called her family member over the phone. The clinical social work aide reported that she had been accepted clinically to [facility] but not financially cleared. On interview the patient denies new symptoms, waiting for placement. Mental Status Exam Mental Status Exam Patient Appearance: Appropriate Patient Orientation: Person Level of Consciousness: Awake and Appropriate Patient Behavior: Guarded and Passive Mood Description: Withdrawn Affect Description: Constricted Patient Cognition Impaired: Yes Ability to Follow Directions: Good Speech Pattern: Clear Hallucinations: None Delusions: Not Present Thought Process: Distracted Thought Content: positive for [place] and positive for Poverty of Content Judgement: Fair Diagnostics Vital Signs (24Hr): Vital Signs - 24 hr 10/01/23 18:00 10/02/23 08:15 Temperature 98.4 F 98.3 F Pulse Rate 76 66 Respiratory Rate 18 16 Blood Pressure 119/58 L 126/57 L Pulse Oximetry 97 96 Oxygen Delivery Method Room Air Room Air BMI result Body Mass Index 25.9 Labs 09/04/23 07:52 09/28/23 07:21 Labs: Laboratory Results - last 48 hr 10/01/23 10/02/23 20:18 05:41 POC Glucose 159 H 96 Imaging Radiology Impressions: ITS Impressions Brain MRI 04/03/23 15:30 IMPRESSION: No acute infarct, mass lesion, intracranial hemorrhage, or evidence of hydrocephalus. Mild nonspecific T2/FLAIR hyperintensity in the cerebral white matter and danny presumably on the basis of chronic microangiopathy. Cervical Spine CT 07/03/23 20:12 IMPRESSION: No acute findings within the cervical spine. The cervical central canal is not well assessed on this CT due to artifact. If weakness persists, a cervical spine MRI would be more sensitive in assessment. Medications Medications Current Medications Amphetamine/Dextroamphetamine (Amphetamine Mixed Salts 10 Mg Tablet) 10 mg PO BID@0800,1700 [facility] Last Admin: 10/02/23 08:30 Dose: 10 mg Docusate Sodium (Docusate Sodium 100 Mg Capsule) 100 mg PO BID [facility] Last Admin: 10/02/23 08:30 Dose: 100 mg Insulin Glargine (Insulin Glargine,Hum.Rec.Anlog 100 Unit/Ml 10 Ml Vial) 6 unit SUBCUT DAILY [facility] Last Admin: 10/02/23 08:30 Dose: 6 unit Magnesium Oxide (Magnesium Oxide 400 Mg Tablet) 400 mg PO BIDPC [facility] Last Admin: 10/02/23 08:30 Dose: 400 mg Memantine (Memantine Hcl 10 Mg Tablet) 10 mg PO BID [facility] Last Admin: 10/02/23 08:30 Dose: 10 mg Metformin HCl (Metformin Hcl 1,000 Mg Tablet) 1,000 mg PO BID [facility] Last Admin: 10/02/23 08:30 Dose: 1,000 mg Olanzapine (Olanzapine 2.5 Mg Tablet) 2.5 mg PO Q4H PRN PRN Reason: anxiety/agitation Last Admin: 10/01/23 20:19 Dose: 2.5 mg Senna (Sennosides 8.6 Mg Tablet) 17.2 mg PO BEDTIME [facility] Last Admin: 10/01/23 20:19 Dose: 17.2 mg Sertraline HCl (Sertraline Hcl 100 Mg Tablet) 200 mg PO DAILY [facility] Last Admin: 10/02/23 08:30 Dose: 200 mg Allergies Allergies Allergy/AdvReac Type Severity Reaction Status Date / Time No Known Allergies Allergy Verified 03/23/23 18:13 Assessment & Plan Assessment & Plan (1) Alzheimer's dementia: Status: Acute Code(s): G30.9 - Alzheimer's disease, unspecified; F02.80 - Dementia in other diseases classified elsewhere, unspecified severity, without behavioral disturbance, psychotic disturbance, mood disturbance, and anxiety Assessment and Plan: August 24 58 years old woman with relative young age onset at Alzheimer dementia but overall clinical picture is affected by significant depression, which continues to be the predominant feature of for clinical picture. Conventional dementia medicines such as donepezil or memantine can be tried but usually do not make significant difference. I would suggest memantine 10 mg twice a day and donepezil 10 mg daily. Recently a new dementia at drug for Alzheimer was approved but only for relatively mild dementia or mild cognitive impairment type of patients. She would not qualify for that drug. 08/11 continue current treatment plan Plan 1. Continue same treatment. 2. Waiting for placement. 3. Lower Haldol to 1 mg p.o. q.h.s. on July 28. August 17 we discontinue Haldol at night. 4. August 18 we decided to add a low dose of Adderall 5 mg p.o. b.i.d. to target her hypoactivity. So far, had been a modest improvement of her hypoactive so we increase other up to 10 mg p.o. b.i.d. on August 24. Increase Zoloft up to 150 mg p.o. q.a.m. In August. We are going to increase up to 200 mg on September 27. Plan Plan continue with same treatment Reason for continued inpatient stay Substantial Risk for: inability to function, rapid decompensation and med/psych decompensation Time Spent With Patient Time: Total time managing care of this patient today _20___ minutes.
[2023-10-02 20:15] VITALS: BP 124/64; PULSE 77; RESP 16; TEMP 36.1; O2SAT 96
[2023-10-02] MEDS: Sennosides 8.6 MG TABLET 17.2 MG PO (21:13)
[2023-10-03] MEDS: OLANZapine 2.5 MG TABLET PO (00:18)
[2023-10-03 08:00] VITALS: BP 123/65; PULSE 63; RESP 18; TEMP 36.8; O2SAT 95
[2023-10-03] MEDS: Insulin Glargine,Hum.rec.anlog 100 UNIT/ML 10 ML VIAL 6 UNIT SUBCUT (08:19)
[2023-10-03] MEDS: Magnesium Oxide 400 MG TABLET PO ×2 (08:20→17:13)
[2023-10-03] MEDS: Memantine HCl 10 MG TABLET PO ×2 (08:20→20:47)
[2023-10-03] MEDS: metFORMIN HCl 1,000 MG TABLET 1000 MG PO ×2 (08:20→20:47)
[2023-10-03] MEDS: Amphetamine Mixed Salts 10 MG TABLET PO ×2 (08:20→17:13)
[2023-10-03] MEDS: Sertraline HCL 100 MG TABLET 200 MG PO (08:20)
[2023-10-03] MEDS: Docusate Sodium 100 MG CAPSULE PO ×2 (08:21→20:47)
--- NOTE | 2023-10-03 12:06 | HO.PSYCHPN ---
Subjective Subjective Date of Service: 10/03/23 Reason For Visit: hallucinations confusion Subjective Notes: Conditional Voluntary Interim History: The nursing staff reported patient had been compliant with treatment, no changes in her mental status. Waiting for placement. The social sciences research scientist reported that [facility] already [facility] clinically but we are waiting for the financial clearance. Mental Status Exam Mental Status Exam Patient Appearance: Appropriate Patient Orientation: Person Level of Consciousness: Awake Patient Behavior: Guarded and Passive Mood Description: Withdrawn Affect Description: Constricted Patient Cognition Impaired: Yes Ability to Follow Directions: Good Speech Pattern: Clear Hallucinations: None Delusions: Not Present Thought Process: Distracted and Slowed Thinking Thought Content: positive for [place] Judgement: Poor Diagnostics Vital Signs (24Hr): Vital Signs - 24 hr 10/02/23 20:15 10/03/23 08:00 Temperature 96.9 F 98.2 F Pulse Rate 77 63 Respiratory Rate 16 18 Blood Pressure 124/64 123/65 Pulse Oximetry 96 95 Oxygen Delivery Method Room Air Room Air BMI result Body Mass Index 25.9 Labs 09/04/23 07:52 09/28/23 07:21 Labs: Laboratory Results - last 48 hr 10/01/23 10/02/23 20:18 05:41 POC Glucose 159 H 96 Imaging Radiology Impressions: ITS Impressions Brain MRI 04/03/23 15:30 IMPRESSION: No acute infarct, mass lesion, intracranial hemorrhage, or evidence of hydrocephalus. Mild nonspecific T2/FLAIR hyperintensity in the cerebral white matter and danny presumably on the basis of chronic microangiopathy. Cervical Spine CT 07/03/23 20:12 IMPRESSION: No acute findings within the cervical spine. The cervical central canal is not well assessed on this CT due to artifact. If weakness persists, a cervical spine MRI would be more sensitive in assessment. Medications Medications Current Medications Amphetamine/Dextroamphetamine (Amphetamine Mixed Salts 10 Mg Tablet) 10 mg PO BID@0800,1700 [facility] Last Admin: 10/03/23 08:20 Dose: 10 mg Docusate Sodium (Docusate Sodium 100 Mg Capsule) 100 mg PO BID [facility] Last Admin: 10/03/23 08:21 Dose: 100 mg Insulin Glargine (Insulin Glargine,Hum.Rec.Anlog 100 Unit/Ml 10 Ml Vial) 6 unit SUBCUT DAILY [facility] Last Admin: 10/03/23 08:19 Dose: 6 unit Magnesium Oxide (Magnesium Oxide 400 Mg Tablet) 400 mg PO BIDPC [facility] Last Admin: 10/03/23 08:20 Dose: 400 mg Memantine (Memantine Hcl 10 Mg Tablet) 10 mg PO BID [facility] Last Admin: 10/03/23 08:20 Dose: 10 mg Metformin HCl (Metformin Hcl 1,000 Mg Tablet) 1,000 mg PO BID [facility] Last Admin: 10/03/23 08:20 Dose: 1,000 mg Olanzapine (Olanzapine 2.5 Mg Tablet) 2.5 mg PO Q4H PRN PRN Reason: anxiety/agitation Last Admin: 10/03/23 00:18 Dose: 2.5 mg Senna (Sennosides 8.6 Mg Tablet) 17.2 mg PO BEDTIME [facility] Last Admin: 10/02/23 21:13 Dose: 17.2 mg Sertraline HCl (Sertraline Hcl 100 Mg Tablet) 200 mg PO DAILY [facility] Last Admin: 10/03/23 08:20 Dose: 200 mg Allergies Allergies Allergy/AdvReac Type Severity Reaction Status Date / Time No Known Allergies Allergy Verified 03/23/23 18:13 Assessment & Plan Assessment & Plan (1) Alzheimer's dementia: Status: Acute Code(s): G30.9 - Alzheimer's disease, unspecified; F02.80 - Dementia in other diseases classified elsewhere, unspecified severity, without behavioral disturbance, psychotic disturbance, mood disturbance, and anxiety Assessment and Plan: August 24 58 years old woman with relative young age onset at Alzheimer dementia but overall clinical picture is affected by significant depression, which continues to be the predominant feature of for clinical picture. Conventional dementia medicines such as donepezil or memantine can be tried but usually do not make significant difference. I would suggest memantine 10 mg twice a day and donepezil 10 mg daily. Recently a new dementia at drug for Alzheimer was approved but only for relatively mild dementia or mild cognitive impairment type of patients. She would not qualify for that drug. 08/11 continue current treatment plan Plan 1. Continue same treatment. 2. Waiting for placement. 3. Lower Haldol to 1 mg p.o. q.h.s. on July 28. August 17 we discontinue Haldol at night. 4. August 18 we decided to add a low dose of Adderall 5 mg p.o. b.i.d. to target her hypoactivity. So far, had been a modest improvement of her hypoactive so we increase other up to 10 mg p.o. b.i.d. on August 24. Increase Zoloft up to 150 mg p.o. q.a.m. In August. We are going to increase up to 200 mg on September 27. Plan Plan continue with same treatment Reason for continued inpatient stay Substantial Risk for: inability to function, rapid decompensation and med/psych decompensation Time Spent With Patient Time: Total time managing care of this patient today __20__ minutes.
[2023-10-03 18:00] VITALS: BP 135/63; PULSE 82; RESP 18; TEMP 36; O2SAT 96
[2023-10-03] MEDS: Sennosides 8.6 MG TABLET 17.2 MG PO (20:47)
[2023-10-04 08:00] VITALS: BP 132/74; PULSE 72; RESP 16; TEMP 35.8; O2SAT 96
[2023-10-04] MEDS: metFORMIN HCl 1,000 MG TABLET 1000 MG PO (08:26)
[2023-10-04] MEDS: Amphetamine Mixed Salts 10 MG TABLET PO ×2 (08:26→16:24)
[2023-10-04] MEDS: Docusate Sodium 100 MG CAPSULE PO ×2 (08:26→20:54)
[2023-10-04] MEDS: Magnesium Oxide 400 MG TABLET PO ×2 (08:26→16:24)
[2023-10-04] MEDS: Memantine HCl 10 MG TABLET PO ×2 (08:26→20:54)
[2023-10-04] MEDS: Sertraline HCL 100 MG TABLET 200 MG PO (08:26)
[2023-10-04] MEDS: Insulin Glargine,Hum.rec.anlog 100 UNIT/ML 10 ML VIAL 6 UNIT SUBCUT (08:27)
--- NOTE | 2023-10-04 12:44 | P.PNPSI_ITS ---
Subjective Subjective Date of Service: 10/04/23 Reason For Visit: hallucinations confusion Subjective Notes: Conditional Voluntary Interim History: the nursing staff reported the patient had been compliant with treatment, she had been seen in [facility]. Her sleep and appetite has gone back to normal. On interview the patient denies new symptoms, waiting for placement. Mental Status Exam Mental Status Exam Patient Appearance: Well Grooomed Patient Orientation: Person and Situation Level of Consciousness: Awake and Appropriate Patient Behavior: Guarded and Passive Mood Description: Withdrawn Affect Description: Calm Patient Cognition Impaired: Yes Ability to Follow Directions: Good Speech Pattern: Clear Hallucinations: None Delusions: Not Present Thought Process: Distracted and Slowed Thinking Thought Content: positive for [place] and positive for Poverty of Content Judgement: Fair Diagnostics Vital Signs (24Hr): Vital Signs - 24 hr 10/03/23 18:00 10/04/23 08:00 Temperature 96.8 F 96.5 F L Pulse Rate 82 72 Respiratory Rate 18 16 Blood Pressure 135/63 132/74 Pulse Oximetry 96 96 Oxygen Delivery Method Room Air Room Air BMI result Body Mass Index 25.9 Labs 09/04/23 07:52 09/28/23 07:21 Imaging Radiology Impressions: ITS Impressions Brain MRI 04/03/23 15:30 IMPRESSION: No acute infarct, mass lesion, intracranial hemorrhage, or evidence of hydrocephalus. Mild nonspecific T2/FLAIR hyperintensity in the cerebral white matter and danny presumably on the basis of chronic microangiopathy. Cervical Spine CT 07/03/23 20:12 IMPRESSION: No acute findings within the cervical spine. The cervical central canal is not well assessed on this CT due to artifact. If weakness persists, a cervical spine MRI would be more sensitive in assessment. Medications Medications Current Medications Amphetamine/Dextroamphetamine (Amphetamine Mixed Salts 10 Mg Tablet) 10 mg PO BID@0800,1700 [facility] Last Admin: 10/04/23 08:26 Dose: 10 mg Docusate Sodium (Docusate Sodium 100 Mg Capsule) 100 mg PO BID [facility] Last Admin: 10/04/23 08:26 Dose: 100 mg Insulin Glargine (Insulin Glargine,Hum.Rec.Anlog 100 Unit/Ml 10 Ml Vial) 6 unit SUBCUT DAILY [facility] Last Admin: 10/04/23 08:27 Dose: 6 unit Magnesium Oxide (Magnesium Oxide 400 Mg Tablet) 400 mg PO BIDPC [facility] Last Admin: 10/04/23 08:26 Dose: 400 mg Memantine (Memantine Hcl 10 Mg Tablet) 10 mg PO BID [facility] Last Admin: 10/04/23 08:26 Dose: 10 mg Olanzapine (Olanzapine 2.5 Mg Tablet) 2.5 mg PO Q4H PRN PRN Reason: anxiety/agitation Last Admin: 10/03/23 00:18 Dose: 2.5 mg Senna (Sennosides 8.6 Mg Tablet) 17.2 mg PO BEDTIME [facility] Last Admin: 10/03/23 20:47 Dose: 17.2 mg Sertraline HCl (Sertraline Hcl 100 Mg Tablet) 200 mg PO DAILY [facility] Last Admin: 10/04/23 08:26 Dose: 200 mg Allergies Allergies Allergy/AdvReac Type Severity Reaction Status Date / Time No Known Allergies Allergy Verified 03/23/23 18:13 Assessment & Plan Assessment & Plan (1) Alzheimer's dementia: Status: Acute Code(s): G30.9 - Alzheimer's disease, unspecified; F02.80 - Dementia in other diseases classified elsewhere, unspecified severity, without behavioral disturbance, psychotic disturbance, mood disturbance, and anxiety Assessment and Plan: August 24 58 years old woman with relative young age onset at Alzheimer dementia but overall clinical picture is affected by significant depression, which continues to be the predominant feature of for clinical picture. Conventional dementia medicines such as donepezil or memantine can be tried but usually do not make significant difference. I would suggest memantine 10 mg twice a day and donepezil 10 mg daily. Recently a new dementia at drug for Alzheimer was approved but only for relatively mild dementia or mild cognitive impairment type of patients. She would not qualify for that drug. 08/11 continue current treatment plan Plan 1. Continue same treatment. 2. Waiting for placement. 3. Lower Haldol to 1 mg p.o. q.h.s. on July 28. August 17 we discontinue Haldol at night. 4. August 18 we decided to add a low dose of Adderall 5 mg p.o. b.i.d. to target her hypoactivity. So far, had been a modest improvement of her hypoactive so we increase other up to 10 mg p.o. b.i.d. on August 24. 5. Increase Zoloft up to 150 mg p.o. q.a.m. In August. We are going to increase up to 200 mg on September 27. Plan Plan continue with same treatment Reason for continued inpatient stay Substantial Risk for: inability to function, rapid decompensation and med/psych decompensation Time Spent With Patient Time: Total time managing care of this patient today __20__ minutes.
[2023-10-04] MEDS: OLANZapine 2.5 MG TABLET PO ×2 (14:28→21:12)
[2023-10-04 20:20] VITALS: BP 122/58; PULSE 75; RESP 16; TEMP 36.2; O2SAT 96
[2023-10-04] MEDS: Sennosides 8.6 MG TABLET 17.2 MG PO (20:54)
[2023-10-05 07:00] VITALS: BMI 26.7
[2023-10-05 08:00] VITALS: BP 144/74; PULSE 77; RESP 16; TEMP 36.5; O2SAT 97
[2023-10-05] MEDS: Sertraline HCL 100 MG TABLET 200 MG PO (08:43)
[2023-10-05] MEDS: Docusate Sodium 100 MG CAPSULE PO ×2 (08:43→21:05)
[2023-10-05] MEDS: Memantine HCl 10 MG TABLET PO ×2 (08:43→21:05)
[2023-10-05] MEDS: Amphetamine Mixed Salts 10 MG TABLET PO (08:43)
[2023-10-05] MEDS: Magnesium Oxide 400 MG TABLET PO ×2 (08:44→16:39)
[2023-10-05] MEDS: Insulin Glargine,Hum.rec.anlog 100 UNIT/ML 10 ML VIAL 6 UNIT SUBCUT (08:44)
[2023-10-05 08:48] LABS: Creatinine Clr Calc Pharmacy 94.2; Estimated Glomerular Filt Rate > 60
--- NOTE | 2023-10-05 12:07 | P.PNPSI_ITS ---
Subjective Subjective Date of Service: 10/05/23 Reason For Visit: hallucinations confusion Subjective Notes: Conditional Voluntary Interim History: the nursing staff reported the patient had been cooperative pleasant, looks brighter but a little irritable. On interview the patient denies new symptoms, pleasantly confused, waiting for placement. Today on team we decided to lowered Adderall due to your increased irritability. Mental Status Exam Mental Status Exam Patient Appearance: Appropriate Patient Orientation: Person Level of Consciousness: Awake Patient Behavior: Guarded and Passive Mood Description: Calm Affect Description: Constricted Patient Cognition Impaired: Yes Ability to Follow Directions: Good Speech Pattern: Clear Hallucinations: None Delusions: Ideas of Reference Thought Process: Distracted and Slowed Thinking Thought Content: positive for [place] and positive for Poverty of Content Judgement: Poor Diagnostics Vital Signs (24Hr): Vital Signs - 24 hr 10/04/23 20:20 10/05/23 08:00 Temperature 97.1 F 97.7 F Pulse Rate 75 77 Respiratory Rate 16 16 Blood Pressure 122/58 L 144/74 H Pulse Oximetry 96 97 Oxygen Delivery Method Room Air Room Air BMI result Body Mass Index 25.9 Labs 09/04/23 07:52 10/05/23 08:28 Labs: Laboratory Results - last 48 hr 10/05/23 08:28 Creatinine 0.58 Estim Creat Clear Calc 94.2 Estimated GFR > 60 Imaging Radiology Impressions: ITS Impressions Brain MRI 04/03/23 15:30 IMPRESSION: No acute infarct, mass lesion, intracranial hemorrhage, or evidence of hydrocephalus. Mild nonspecific T2/FLAIR hyperintensity in the cerebral white matter and danny presumably on the basis of chronic microangiopathy. Cervical Spine CT 07/03/23 20:12 IMPRESSION: No acute findings within the cervical spine. The cervical central canal is not well assessed on this CT due to artifact. If weakness persists, a cervical spine MRI would be more sensitive in assessment. Medications Medications Current Medications Amphetamine/Dextroamphetamine (Amphetamine Mixed Salts 10 Mg Tablet) 5 mg PO BID@0800,1700 [facility] Docusate Sodium (Docusate Sodium 100 Mg Capsule) 100 mg PO BID [facility] Last Admin: 10/05/23 08:43 Dose: 100 mg Insulin Glargine (Insulin Glargine,Hum.Rec.Anlog 100 Unit/Ml 10 Ml Vial) 6 unit SUBCUT DAILY [facility] Last Admin: 10/05/23 08:44 Dose: 6 unit Magnesium Oxide (Magnesium Oxide 400 Mg Tablet) 400 mg PO BIDPC [facility] Last Admin: 10/05/23 08:44 Dose: 400 mg Memantine (Memantine Hcl 10 Mg Tablet) 10 mg PO BID [facility] Last Admin: 10/05/23 08:43 Dose: 10 mg Olanzapine (Olanzapine 2.5 Mg Tablet) 2.5 mg PO Q4H PRN PRN Reason: anxiety/agitation Last Admin: 10/04/23 21:12 Dose: 2.5 mg Senna (Sennosides 8.6 Mg Tablet) 17.2 mg PO BEDTIME [facility] Last Admin: 10/04/23 20:54 Dose: 17.2 mg Sertraline HCl (Sertraline Hcl 100 Mg Tablet) 200 mg PO DAILY [facility] Last Admin: 10/05/23 08:43 Dose: 200 mg Allergies Allergies Allergy/AdvReac Type Severity Reaction Status Date / Time No Known Allergies Allergy Verified 03/23/23 18:13 Assessment & Plan Assessment & Plan (1) Alzheimer's dementia: Status: Acute Code(s): G30.9 - Alzheimer's disease, unspecified; F02.80 - Dementia in other diseases classified elsewhere, unspecified severity, without behavioral disturbance, psychotic disturbance, mood disturbance, and anxiety Assessment and Plan: August 24 58 years old woman with relative young age onset at Alzheimer dementia but overall clinical picture is affected by significant depression, which continues to be the predominant feature of for clinical picture. Conventional dementia medicines such as donepezil or memantine can be tried but usually do not make significant difference. I would suggest memantine 10 mg twice a day and donepezil 10 mg daily. Recently a new dementia at drug for Alzheimer was approved but only for relatively mild dementia or mild cognitive impairment type of patients. She would not qualify for that drug. 08/11 continue current treatment plan Plan 1. Continue same treatment. 2. Waiting for placement. 3. Lower Haldol to 1 mg p.o. q.h.s. on July 28. August 17 we discontinue Haldol at night. 4. August 18 we decided to add a low dose of Adderall 5 mg p.o. b.i.d. to target her hypoactivity. So far, had been a modest improvement of her hypoactive so we increase other up to 10 mg p.o. b.i.d. on August 24. On October 05 we decided to lower calf 5 mg p.o. b.i.d. since the patient was less hypoactive and slightly irritable. 5. Increase Zoloft up to 150 mg p.o. q.a.m. In August. We are going to increase up to 200 mg on September 27. Plan Plan continue with same treatment Reason for continued inpatient stay Substantial Risk for: inability to function, rapid decompensation and med/psych decompensation Time Spent With Patient Time: Total time managing care of this patient today __20__ minutes.
[2023-10-05] MEDS: Amphetamine Mixed Salts 10 MG TABLET 5 MG PO (16:40)
[2023-10-05 18:00] VITALS: BP 133/61; PULSE 82; RESP 18; TEMP 36.6; O2SAT 97
[2023-10-05] MEDS: Sennosides 8.6 MG TABLET 17.2 MG PO (21:05)
[2023-10-05] MEDS: OLANZapine 2.5 MG TABLET PO (21:06)
[2023-10-06 09:16] VITALS: BP 131/70; PULSE 73; RESP 16; TEMP 37.3; O2SAT 96
[2023-10-06] MEDS: Sertraline HCL 100 MG TABLET 200 MG PO (09:20)
[2023-10-06] MEDS: Memantine HCl 10 MG TABLET PO ×2 (09:20→21:04)
[2023-10-06] MEDS: Amphetamine Mixed Salts 10 MG TABLET 5 MG PO ×2 (09:20→17:25)
[2023-10-06] MEDS: Magnesium Oxide 400 MG TABLET PO ×2 (09:23→17:25)
[2023-10-06] MEDS: Docusate Sodium 100 MG CAPSULE PO ×2 (09:23→21:05)
[2023-10-06] MEDS: Insulin Glargine,Hum.rec.anlog 100 UNIT/ML 10 ML VIAL 6 UNIT SUBCUT (09:31)
[2023-10-06] MEDS: bisacodyL 5 MG TABLET.DR 10 MG PO (12:11)
--- NOTE | 2023-10-06 12:44 | P.PNPSI_ITS ---
Subjective Subjective Date of Service: 10/06/23 Reason For Visit: hallucinations confusion Subjective Notes: Conditional Voluntary Interim History: The nursing staff reported the patient had been time, cooperative pleasantly confused easily redirectable. On interview the patient denies new symptoms, waiting for placement. Mental Status Exam Mental Status Exam Patient Appearance: Appropriate Patient Orientation: Person and Situation Level of Consciousness: Awake and Appropriate Patient Behavior: Guarded and Passive Mood Description: Withdrawn Affect Description: Constricted Patient Cognition Impaired: Yes Ability to Follow Directions: Good Speech Pattern: Clear Hallucinations: None Delusions: Not Present Thought Process: Distracted Thought Content: positive for [place] and positive for Poverty of Content Judgement: Poor Diagnostics Vital Signs (24Hr): Vital Signs - 24 hr 10/05/23 18:00 10/06/23 09:16 Temperature 97.9 F 99.1 F Pulse Rate 82 73 Respiratory Rate 18 16 Blood Pressure 133/61 131/70 Pulse Oximetry 97 96 Oxygen Delivery Method Room Air Room Air BMI result Body Mass Index 26.7 Labs 09/04/23 07:52 10/05/23 08:28 Labs: Laboratory Results - last 48 hr 10/05/23 08:28 Creatinine 0.58 Estim Creat Clear Calc 94.2 Estimated GFR > 60 Imaging Radiology Impressions: ITS Impressions Brain MRI 04/03/23 15:30 IMPRESSION: No acute infarct, mass lesion, intracranial hemorrhage, or evidence of hydrocephalus. Mild nonspecific T2/FLAIR hyperintensity in the cerebral white matter and danny presumably on the basis of chronic microangiopathy. Cervical Spine CT 07/03/23 20:12 IMPRESSION: No acute findings within the cervical spine. The cervical central canal is not well assessed on this CT due to artifact. If weakness persists, a cervical spine MRI would be more sensitive in assessment. Medications Medications Current Medications Amphetamine/Dextroamphetamine (Amphetamine Mixed Salts 10 Mg Tablet) 5 mg PO BID@0800,1700 [facility] Last Admin: 10/06/23 09:20 Dose: 5 mg Bisacodyl (Bisacodyl 5 Mg Tablet.Dr) 10 mg PO DAILY PRN PRN Reason: Constipation Last Admin: 10/06/23 12:11 Dose: 10 mg Docusate Sodium (Docusate Sodium 100 Mg Capsule) 100 mg PO BID [facility] Last Admin: 10/06/23 09:23 Dose: 100 mg Insulin Glargine (Insulin Glargine,Hum.Rec.Anlog 100 Unit/Ml 10 Ml Vial) 6 unit SUBCUT DAILY [facility] Last Admin: 10/06/23 09:31 Dose: 6 unit Magnesium Oxide (Magnesium Oxide 400 Mg Tablet) 400 mg PO BIDPC [facility] Last Admin: 10/06/23 09:23 Dose: 400 mg Memantine (Memantine Hcl 10 Mg Tablet) 10 mg PO BID [facility] Last Admin: 10/06/23 09:20 Dose: 10 mg Olanzapine (Olanzapine 2.5 Mg Tablet) 2.5 mg PO Q4H PRN PRN Reason: anxiety/agitation Last Admin: 10/05/23 21:06 Dose: 2.5 mg Senna (Sennosides 8.6 Mg Tablet) 17.2 mg PO BEDTIME [facility] Last Admin: 10/05/23 21:05 Dose: 17.2 mg Sertraline HCl (Sertraline Hcl 100 Mg Tablet) 200 mg PO DAILY [facility] Last Admin: 10/06/23 09:20 Dose: 200 mg Allergies Allergies Allergy/AdvReac Type Severity Reaction Status Date / Time No Known Allergies Allergy Verified 03/23/23 18:13 Assessment & Plan Assessment & Plan (1) Alzheimer's dementia: Status: Acute Code(s): G30.9 - Alzheimer's disease, unspecified; F02.80 - Dementia in other diseases classified elsewhere, unspecified severity, without behavioral disturbance, psychotic disturbance, mood disturbance, and anxiety Assessment and Plan: August 24 58 years old woman with relative young age onset at Alzheimer dementia but overall clinical picture is affected by significant depression, which continues to be the predominant feature of for clinical picture. Conventional dementia medicines such as donepezil or memantine can be tried but usually do not make significant difference. I would suggest memantine 10 mg twice a day and donepezil 10 mg daily. Recently a new dementia at drug for Alzheimer was approved but only for relatively mild dementia or mild cognitive impairment type of patients. She would not qualify for that drug. 08/11 continue current treatment plan Plan 1. Continue same treatment. 2. Waiting for placement. 3. Lower Haldol to 1 mg p.o. q.h.s. on July 28. August 17 we discontinue Haldol at night. 4. August 18 we decided to add a low dose of Adderall 5 mg p.o. b.i.d. to target her hypoactivity. So far, had been a modest improvement of her hypoactive so we increase other up to 10 mg p.o. b.i.d. on August 24. On October 05 we decided to lower calf 5 mg p.o. b.i.d. since the patient was less hypoactive and slightly irritable. 5. Increase Zoloft up to 150 mg p.o. q.a.m. In August. We are going to increase up to 200 mg on September 27. Plan Plan continue with same treatment Reason for continued inpatient stay Substantial Risk for: inability to function, rapid decompensation and med/psych decompensation Time Spent With Patient Time: Total time managing care of this patient today __20__ minutes.
[2023-10-06 18:00] VITALS: BP 124/70; PULSE 86; RESP 16; TEMP 36.3; O2SAT 96
[2023-10-06] MEDS: Sennosides 8.6 MG TABLET 17.2 MG PO (21:03)
[2023-10-06] MEDS: OLANZapine 2.5 MG TABLET PO (21:05)
[2023-10-06] MEDS: traZODone HCL 50 MG TABLET PO (23:42)
[2023-10-07 08:19] VITALS: BP 126/61; PULSE 66; RESP 18; TEMP 36.3; O2SAT 96
[2023-10-07] MEDS: Memantine HCl 10 MG TABLET PO ×2 (08:36→20:47)
[2023-10-07] MEDS: Magnesium Oxide 400 MG TABLET PO ×2 (08:36→17:15)
[2023-10-07] MEDS: Sertraline HCL 100 MG TABLET 200 MG PO (08:36)
[2023-10-07] MEDS: Docusate Sodium 100 MG CAPSULE PO ×2 (08:36→20:47)
[2023-10-07] MEDS: Amphetamine Mixed Salts 10 MG TABLET 5 MG PO ×2 (08:36→17:15)
[2023-10-07] MEDS: Insulin Glargine,Hum.rec.anlog 100 UNIT/ML 10 ML VIAL 6 UNIT SUBCUT (08:36)
--- NOTE | 2023-10-07 08:47 | P.PNPSI_ITS ---
Subjective Subjective Date of Service: 10/07/23 Reason For Visit: hallucinations confusion Interim History: Pt seen, reviewed with team. Alert, attentive, in milieu with peers. Team reports pt awaits placement. Medication Compliance: Yes Side effects from medications: No Attending Groups: Yes Review of Systems Acute medical concerns: No Mental Status Exam Mental Status Exam Patient Appearance: Appropriate Patient Orientation: Person and Situation Level of Consciousness: Awake and Appropriate Patient Behavior: Guarded and Passive Mood Description: Withdrawn Affect Description: Constricted Patient Cognition Impaired: Yes Ability to Follow Directions: Good Speech Pattern: Clear Hallucinations: None Delusions: Not Present Thought Process: Distracted Thought Content: positive for [place] and positive for Poverty of Content Judgement: Poor Diagnostics Vital Signs (24Hr): Vital Signs - 24 hr 10/06/23 09:16 10/06/23 18:00 10/07/23 08:19 Temperature 99.1 F 97.4 F 97.4 F Pulse Rate 73 86 66 Respiratory Rate 16 16 18 Blood Pressure 131/70 124/70 126/61 Pulse Oximetry 96 96 96 Oxygen Delivery Method Room Air Room Air Room Air BMI result Body Mass Index 26.7 Labs 09/04/23 07:52 10/05/23 08:28 Labs: Laboratory Results - last 48 hr 10/05/23 08:28 Creatinine 0.58 Estim Creat Clear Calc 94.2 Estimated GFR > 60 Imaging Radiology Impressions: ITS Impressions Brain MRI 04/03/23 15:30 IMPRESSION: No acute infarct, mass lesion, intracranial hemorrhage, or evidence of hydrocephalus. Mild nonspecific T2/FLAIR hyperintensity in the cerebral white matter and danny presumably on the basis of chronic microangiopathy. Cervical Spine CT 07/03/23 20:12 IMPRESSION: No acute findings within the cervical spine. The cervical central canal is not well assessed on this CT due to artifact. If weakness persists, a cervical spine MRI would be more sensitive in assessment. Medications Medications Current Medications Amphetamine/Dextroamphetamine (Amphetamine Mixed Salts 10 Mg Tablet) 5 mg PO BID@0800,1700 [facility] Last Admin: 10/07/23 08:36 Dose: 5 mg Bisacodyl (Bisacodyl 5 Mg Tablet.) 10 mg PO DAILY PRN PRN Reason: Constipation Last Admin: 10/06/23 12:11 Dose: 10 mg Docusate Sodium (Docusate Sodium 100 Mg Capsule) 100 mg PO BID [facility] Last Admin: 10/07/23 08:36 Dose: 100 mg Insulin Glargine (Insulin Glargine,Hum.Rec.Anlog 100 Unit/Ml 10 Ml Vial) 6 unit SUBCUT DAILY [facility] Last Admin: 10/07/23 08:36 Dose: 6 unit Magnesium Oxide (Magnesium Oxide 400 Mg Tablet) 400 mg PO BIDPC [facility] Last Admin: 10/07/23 08:36 Dose: 400 mg Memantine (Memantine Hcl 10 Mg Tablet) 10 mg PO BID [facility] Last Admin: 10/07/23 08:36 Dose: 10 mg Olanzapine (Olanzapine 2.5 Mg Tablet) 2.5 mg PO Q4H PRN PRN Reason: anxiety/agitation Last Admin: 10/06/23 21:05 Dose: 2.5 mg Senna (Sennosides 8.6 Mg Tablet) 17.2 mg PO BEDTIME [facility] Last Admin: 10/06/23 21:03 Dose: 17.2 mg Sertraline HCl (Sertraline Hcl 100 Mg Tablet) 200 mg PO DAILY [facility] Last Admin: 10/07/23 08:36 Dose: 200 mg Trazodone HCl (Trazodone Hcl 50 Mg Tablet) 50 mg PO BEDTIME [id number] PRN PRN Reason: Sleep Last Admin: 10/06/23 23:42 Dose: 50 mg Allergies Allergies Allergy/AdvReac Type Severity Reaction Status Date / Time No Known Allergies Allergy Verified 03/23/23 18:13 Assessment & Plan Assessment & Plan (1) Alzheimer's dementia: Status: Acute Code(s): G30.9 - Alzheimer's disease, unspecified; F02.80 - Dementia in other diseases classified elsewhere, unspecified severity, without behavioral disturbance, psychotic disturbance, mood disturbance, and anxiety Assessment and Plan: August 24 58 years old woman with relative young age onset at Alzheimer dementia but overall clinical picture is affected by significant depression, which continues to be the predominant feature of for clinical picture. Conventional dementia medicines such as donepezil or memantine can be tried but usually do not make significant difference. I would suggest memantine 10 mg twice a day and donepezil 10 mg daily. Recently a new dementia at drug for Alzheimer was approved but only for relatively mild dementia or mild cognitive impairment type of patients. She would not qualify for that drug. 08/11 continue current treatment plan Plan 1. Continue same treatment. 2. Waiting for placement. 3. Lower Haldol to 1 mg p.o. q.h.s. on July 28. August 17 we discontinue Haldol at night. 4. August 18 we decided to add a low dose of Adderall 5 mg p.o. b.i.d. to target her hypoactivity. So far, had been a modest improvement of her hypoactive so we increase other up to 10 mg p.o. b.i.d. on August 24. On October 05 we decided to lower calf 5 mg p.o. b.i.d. since the patient was less hypoactive and slightly irritable. 5. Increase Zoloft up to 150 mg p.o. q.a.m. In August. We are going to increase up to 200 mg on September 27. Plan Plan continue with same treatment 10/07/23 Continue current regime and plan of care. Informed Consent: does not understand Reason for continued inpatient stay Substantial Risk for: med/psych decompensation Time Spent With Patient Time: Total time managing care of this patient today ____ minutes.
[2023-10-07] MEDS: bisacodyL 5 MG TABLET.DR 10 MG PO (11:52)
[2023-10-07 18:00] VITALS: BP 134/65; PULSE 70; RESP 16; TEMP 36.1; O2SAT 96
[2023-10-07] MEDS: Sennosides 8.6 MG TABLET 17.2 MG PO (20:46)
[2023-10-08 08:00] VITALS: BP 140/76; PULSE 69; RESP 16; TEMP 36.5; O2SAT 97
[2023-10-08] MEDS: Insulin Glargine,Hum.rec.anlog 100 UNIT/ML 10 ML VIAL 6 UNIT SUBCUT (08:22)
[2023-10-08] MEDS: Amphetamine Mixed Salts 10 MG TABLET 5 MG PO ×2 (08:24→16:11)
[2023-10-08] MEDS: Sertraline HCL 100 MG TABLET 200 MG PO (08:24)
[2023-10-08] MEDS: Memantine HCl 10 MG TABLET PO ×2 (08:25→21:36)
[2023-10-08] MEDS: Docusate Sodium 100 MG CAPSULE PO ×2 (08:25→21:37)
[2023-10-08] MEDS: Magnesium Oxide 400 MG TABLET PO ×2 (08:25→16:12)
[2023-10-08] MEDS: bisacodyL 5 MG TABLET.DR 10 MG PO (08:25)
--- NOTE | 2023-10-08 14:28 | P.PNPSI_ITS ---
Subjective Subjective Date of Service: 10/08/23 Reason For Visit: hallucinations confusion Interim History: Pt was seen and discussed with the team today. She is struggling with constipation-mineral oil fleet ordered Team is talking with her about attempting more variety in her diet-currently chosing grilled cheese sandwiches often. Pt visable in the milieu, ambulatory, attentive and interactive. Medication Compliance: Yes Side effects from medications: No Attending Groups: Yes Review of Systems Acute medical concerns: No Medical Review of Systems: unchanged Review of Systems: constipation Mental Status Exam Mental Status Exam Patient Appearance: Appropriate Patient Orientation: Person and Situation Level of Consciousness: Awake and Appropriate Patient Behavior: Guarded and Passive Mood Description: Withdrawn Affect Description: Constricted Patient Cognition Impaired: Yes Ability to Follow Directions: Good Speech Pattern: Clear Hallucinations: None Delusions: Not Present Thought Process: Distracted Thought Content: positive for [place] and positive for Poverty of Content Judgement: Poor Diagnostics Vital Signs (24Hr): Vital Signs - 24 hr 10/07/23 18:00 10/08/23 08:00 Temperature 96.9 F 97.7 F Pulse Rate 70 69 Respiratory Rate 16 16 Blood Pressure 134/65 140/76 H Pulse Oximetry 96 97 Oxygen Delivery Method Room Air Room Air BMI result Body Mass Index 26.7 Labs 09/04/23 07:52 10/05/23 08:28 Imaging Radiology Impressions: ITS Impressions Brain MRI 04/03/23 15:30 IMPRESSION: No acute infarct, mass lesion, intracranial hemorrhage, or evidence of hydrocephalus. Mild nonspecific T2/FLAIR hyperintensity in the cerebral white matter and danny presumably on the basis of chronic microangiopathy. Cervical Spine CT 07/03/23 20:12 IMPRESSION: No acute findings within the cervical spine. The cervical central canal is not well assessed on this CT due to artifact. If weakness persists, a cervical spine MRI would be more sensitive in assessment. Medications Medications Current Medications Acetaminophen (Acetaminophen 325 Mg Tablet) 650 mg PO Q6H PRN PRN Reason: Pain, Mild (Pain Scale 1-3) Amphetamine/Dextroamphetamine (Amphetamine Mixed Salts 10 Mg Tablet) 5 mg PO BID@0800,1700 BEN Last Admin: 10/08/23 08:24 Dose: 5 mg Bisacodyl (Bisacodyl 5 Mg Tablet.Dr) 10 mg PO DAILY PRN PRN Reason: Constipation Last Admin: 10/08/23 08:25 Dose: 10 mg Docusate Sodium (Docusate Sodium 100 Mg Capsule) 100 mg PO BID [facility] Last Admin: 10/08/23 08:25 Dose: 100 mg Insulin Glargine (Insulin Glargine,Hum.Rec.Anlog 100 Unit/Ml 10 Ml Vial) 6 unit SUBCUT DAILY [facility] Last Admin: 10/08/23 08:22 Dose: 6 unit Magnesium Oxide (Magnesium Oxide 400 Mg Tablet) 400 mg PO BIDPC [facility] Last Admin: 10/08/23 08:25 Dose: 400 mg Memantine (Memantine Hcl 10 Mg Tablet) 10 mg PO BID [facility] Last Admin: 10/08/23 08:25 Dose: 10 mg Nystatin (Nystatin Cream 15 Gm Tube) 1 appl TOPICAL BID [facility]; Protocol Olanzapine (Olanzapine 2.5 Mg Tablet) 2.5 mg PO Q4H PRN PRN Reason: anxiety/agitation Last Admin: 10/06/23 21:05 Dose: 2.5 mg Senna (Sennosides 8.6 Mg Tablet) 17.2 mg PO BEDTIME [facility] Last Admin: 10/07/23 20:46 Dose: 17.2 mg Sertraline HCl (Sertraline Hcl 100 Mg Tablet) 200 mg PO DAILY [facility] Last Admin: 10/08/23 08:24 Dose: 200 mg Trazodone HCl (Trazodone Hcl 50 Mg Tablet) 50 mg PO BEDTIME MRX1 PRN PRN Reason: Sleep Last Admin: 10/06/23 23:42 Dose: 50 mg Allergies Allergies Allergy/AdvReac Type Severity Reaction Status Date / Time No Known Allergies Allergy Verified 03/23/23 18:13 Assessment & Plan Assessment & Plan (1) Alzheimer's dementia: Status: Acute Code(s): G30.9 - Alzheimer's disease, unspecified; F02.80 - Dementia in other diseases classified elsewhere, unspecified severity, without behavioral disturbance, psychotic disturbance, mood disturbance, and anxiety Assessment and Plan: August 24 58 years old woman with relative young age onset at Alzheimer dementia but overall clinical picture is affected by significant depression, which continues to be the predominant feature of for clinical picture. Conventional dementia medicines such as donepezil or memantine can be tried but usually do not make significant difference. I would suggest memantine 10 mg twice a day and donepezil 10 mg daily. Recently a new dementia at drug for Alzheimer was approved but only for relatively mild dementia or mild cognitive impairment type of patients. She would not qualify for that drug. 08/11 continue current treatment plan Plan 1. Continue same treatment. 2. Waiting for placement. 3. Lower Haldol to 1 mg p.o. q.h.s. on July 28. August 17 we discontinue Haldol at night. 4. August 18 we decided to add a low dose of Adderall 5 mg p.o. b.i.d. to target her hypoactivity. So far, had been a modest improvement of her hypoactive so we increase other up to 10 mg p.o. b.i.d. on August 24. On October 05 we decided to lower calf 5 mg p.o. b.i.d. since the patient was less hypoactive and slightly irritable. 5. Increase Zoloft up to 150 mg p.o. q.a.m. In August. We are going to increase up to 200 mg on September 27. Plan Plan continue with same treatment 10/07/23 Continue current regime and plan of care. 10/08/23 Continue current regime and plan of care. Pt agrees to trial some different food choices to assist with mgt of constipation. Informed Consent: further education needed Reason for continued inpatient stay Substantial Risk for: rapid decompensation Time Spent With Patient Time: Total time managing care of this patient today ____ minutes.
[2023-10-08] MEDS: Nystatin Cream 15 GM TUBE 1 APPL TOPICAL (15:51)
[2023-10-08] MEDS: Mineral OiL enema 133 ML ENEMA PR (15:51)
[2023-10-08 18:00] VITALS: BP 135/67; PULSE 95; RESP 16; TEMP 36.3; O2SAT 98
[2023-10-08] MEDS: Sennosides 8.6 MG TABLET 17.2 MG PO (21:37)
[2023-10-08] MEDS: traZODone HCL 50 MG TABLET PO (21:38)
[2023-10-08] MEDS: Acetaminophen 325 MG TABLET 650 MG PO (21:41)
[2023-10-09 08:21] LABS: Glucose, Whole Blood 165 mg/dL (60-115)
[2023-10-09 08:30] VITALS: BP 119/56; PULSE 69; RESP 16; TEMP 36.4; O2SAT 96
[2023-10-09] MEDS: Sertraline HCL 100 MG TABLET 200 MG PO (08:43)
[2023-10-09] MEDS: Amphetamine Mixed Salts 10 MG TABLET 5 MG PO ×2 (08:43→16:54)
[2023-10-09] MEDS: Docusate Sodium 100 MG CAPSULE PO ×2 (08:43→20:50)
[2023-10-09] MEDS: Magnesium Oxide 400 MG TABLET PO ×2 (08:43→16:54)
[2023-10-09] MEDS: Memantine HCl 10 MG TABLET PO ×2 (08:43→20:50)
[2023-10-09] MEDS: Insulin Glargine,Hum.rec.anlog 100 UNIT/ML 10 ML VIAL 6 UNIT SUBCUT (08:44)
--- NOTE | 2023-10-09 13:17 | HO.PSYCHPN ---
Subjective Subjective Date of Service: 10/09/23 Reason For Visit: hallucinations confusion Subjective Notes: Conditional Voluntary Interim History: The nursing staff reported the patient had been compliant with treatment, she slept 8 hours and she had been flat angry at times but easily redirectable. On interview the patient denies new symptoms, waiting for placement. Mental Status Exam Mental Status Exam Patient Appearance: Appropriate Patient Orientation: Person Level of Consciousness: Awake Patient Behavior: Guarded and Passive Mood Description: Withdrawn Affect Description: Constricted Patient Cognition Impaired: Yes Ability to Follow Directions: Good Speech Pattern: Clear Hallucinations: None Delusions: Not Present Thought Process: Distracted and Slowed Thinking Thought Content: positive for [place] and positive for Poverty of Content Judgement: Fair Diagnostics Vital Signs (24Hr): Vital Signs - 24 hr 10/08/23 18:00 10/09/23 08:30 Temperature 97.3 F 97.6 F Pulse Rate 95 69 Respiratory Rate 16 16 Blood Pressure 135/67 119/56 L Pulse Oximetry 98 96 Oxygen Delivery Method Room Air Room Air BMI result Body Mass Index 26.7 Labs 09/04/23 07:52 10/05/23 08:28 Labs: Laboratory Results - last 48 hr 10/09/23 08:17 POC Glucose 165 H Imaging Radiology Impressions: ITS Impressions Brain MRI 04/03/23 15:30 IMPRESSION: No acute infarct, mass lesion, intracranial hemorrhage, or evidence of hydrocephalus. Mild nonspecific T2/FLAIR hyperintensity in the cerebral white matter and danny presumably on the basis of chronic microangiopathy. Cervical Spine CT 07/03/23 20:12 IMPRESSION: No acute findings within the cervical spine. The cervical central canal is not well assessed on this CT due to artifact. If weakness persists, a cervical spine MRI would be more sensitive in assessment. Medications Medications Current Medications Acetaminophen (Acetaminophen 325 Mg Tablet) 650 mg PO Q6H PRN PRN Reason: Pain, Mild (Pain Scale 1-3) Last Admin: 10/08/23 21:41 Dose: 650 mg Amphetamine/Dextroamphetamine (Amphetamine Mixed Salts 10 Mg Tablet) 5 mg PO BID@0800,1700 [facility] Last Admin: 10/09/23 08:43 Dose: 5 mg Bisacodyl (Bisacodyl 5 Mg Tablet.) 10 mg PO DAILY PRN PRN Reason: Constipation Last Admin: 10/08/23 08:25 Dose: 10 mg Docusate Sodium (Docusate Sodium 100 Mg Capsule) 100 mg PO BID [facility] Last Admin: 10/09/23 08:43 Dose: 100 mg Insulin Glargine (Insulin Glargine,Hum.Rec.Anlog 100 Unit/Ml 10 Ml Vial) 6 unit SUBCUT DAILY [facility] Last Admin: 10/09/23 08:44 Dose: 6 unit Magnesium Oxide (Magnesium Oxide 400 Mg Tablet) 400 mg PO BIDPC [facility] Last Admin: 10/09/23 08:43 Dose: 400 mg Memantine (Memantine Hcl 10 Mg Tablet) 10 mg PO BID [facility] Last Admin: 10/09/23 08:43 Dose: 10 mg Nystatin (Nystatin Cream 15 Gm Tube) 1 appl TOPICAL BID [facility]; Protocol Last Admin: 10/09/23 11:32 Dose: Not Given Olanzapine (Olanzapine 2.5 Mg Tablet) 2.5 mg PO Q4H PRN PRN Reason: anxiety/agitation Last Admin: 10/06/23 21:05 Dose: 2.5 mg Senna (Sennosides 8.6 Mg Tablet) 17.2 mg PO BEDTIME [facility] Last Admin: 10/08/23 21:37 Dose: 17.2 mg Sertraline HCl (Sertraline Hcl 100 Mg Tablet) 200 mg PO DAILY [facility] Last Admin: 10/09/23 08:43 Dose: 200 mg Trazodone HCl (Trazodone Hcl 50 Mg Tablet) 50 mg PO BEDTIME MRX1 PRN PRN Reason: Sleep Last Admin: 10/08/23 21:38 Dose: 50 mg Allergies Allergies Allergy/AdvReac Type Severity Reaction Status Date / Time No Known Allergies Allergy Verified 03/23/23 18:13 Assessment & Plan Assessment & Plan (1) Alzheimer's dementia: Status: Acute Code(s): G30.9 - Alzheimer's disease, unspecified; F02.80 - Dementia in other diseases classified elsewhere, unspecified severity, without behavioral disturbance, psychotic disturbance, mood disturbance, and anxiety Assessment and Plan: August 24 58 years old woman with relative young age onset at Alzheimer dementia but overall clinical picture is affected by significant depression, which continues to be the predominant feature of for clinical picture. Conventional dementia medicines such as donepezil or memantine can be tried but usually do not make significant difference. I would suggest memantine 10 mg twice a day and donepezil 10 mg daily. Recently a new dementia at drug for Alzheimer was approved but only for relatively mild dementia or mild cognitive impairment type of patients. She would not qualify for that drug. 08/11 continue current treatment plan Plan 1. Continue same treatment. 2. Waiting for placement. 3. Lower Haldol to 1 mg p.o. q.h.s. on July 28. August 17 we discontinue Haldol at night. 4. August 18 we decided to add a low dose of Adderall 5 mg p.o. b.i.d. to target her hypoactivity. So far, had been a modest improvement of her hypoactive so we increase other up to 10 mg p.o. b.i.d. on August 24. On October 05 we decided to lower calf 5 mg p.o. b.i.d. since the patient was less hypoactive and slightly irritable. 5. Increase Zoloft up to 150 mg p.o. q.a.m. In August. We are going to increase up to 200 mg on September 27. Plan Plan continue with same treatment 10/07/23 Continue current regime and plan of care. 10/08/23 Continue current regime and plan of care. Pt agrees to trial some different food choices to assist with mgt of constipation. Reason for continued inpatient stay Substantial Risk for: inability to function, rapid decompensation and med/psych decompensation Time Spent With Patient Time: Total time managing care of this patient today _20___ minutes.
[2023-10-09 18:00] VITALS: BP 114/53; PULSE 70; RESP 17; TEMP 36.6; O2SAT 98
[2023-10-09 20:27] LABS: Glucose, Whole Blood 261 mg/dL (60-115)
[2023-10-09] MEDS: Sennosides 8.6 MG TABLET 17.2 MG PO (20:50)
[2023-10-09] MEDS: Nystatin Cream 15 GM TUBE 1 APPL TOPICAL (21:42)
[2023-10-10 07:00] LABS: Glucose, Whole Blood 136 mg/dL (60-115)
[2023-10-10 08:52] VITALS: BP 108/78; PULSE 78; RESP 15; TEMP 36.2; O2SAT 98
[2023-10-10] MEDS: Insulin Glargine,Hum.rec.anlog 100 UNIT/ML 10 ML VIAL 6 UNIT SUBCUT (08:54)
[2023-10-10] MEDS: Amphetamine Mixed Salts 10 MG TABLET 5 MG PO ×2 (08:54→18:01)
[2023-10-10] MEDS: Magnesium Oxide 400 MG TABLET PO ×2 (08:55→18:01)
[2023-10-10] MEDS: Memantine HCl 10 MG TABLET PO ×2 (08:56→20:52)
[2023-10-10] MEDS: Sertraline HCL 100 MG TABLET 200 MG PO (08:56)
[2023-10-10] MEDS: Docusate Sodium 100 MG CAPSULE PO ×2 (08:56→20:51)
--- NOTE | 2023-10-10 13:18 | HO.PSYCHPN ---
Subjective Subjective Date of Service: 10/10/23 Reason For Visit: hallucinations confusion Subjective Notes: Conditional Voluntary Interim History: The nursing staff reported the patient slept 8 hours, she had been eating well and fully compliant with treatment. The social media community manager reported that his sister called and was gather some information. We are going to inform the guardian who is the legally 1 to give decisions about the patient. On interview the patient is pleasantly confused, waiting for placement Mental Status Exam Mental Status Exam Patient Appearance: Well Grooomed and Appropriate Patient Orientation: Person Level of Consciousness: Awake and Appropriate Patient Behavior: Guarded and Passive Mood Description: Calm Affect Description: Blunted Patient Cognition Impaired: Yes Ability to Follow Directions: Good Speech Pattern: Clear Hallucinations: None Delusions: Not Present Thought Process: Distracted and Slowed Thinking Thought Content: positive for [place] and positive for Poverty of Content Judgement: Fair Diagnostics Vital Signs (24Hr): Vital Signs - 24 hr 10/09/23 18:00 10/10/23 08:52 Temperature 98 F 97.2 F Pulse Rate 70 78 Respiratory Rate 17 15 Blood Pressure 114/53 L 108/78 Pulse Oximetry 98 98 Oxygen Delivery Method Room Air Room Air BMI result Body Mass Index 26.7 Labs 09/04/23 07:52 10/05/23 08:28 Labs: Laboratory Results - last 48 hr 10/09/23 10/09/23 10/10/23 08:17 20:13 06:23 POC Glucose 165 H 261 H 136 H Imaging Radiology Impressions: ITS Impressions Brain MRI 04/03/23 15:30 IMPRESSION: No acute infarct, mass lesion, intracranial hemorrhage, or evidence of hydrocephalus. Mild nonspecific T2/FLAIR hyperintensity in the cerebral white matter and danny presumably on the basis of chronic microangiopathy. Cervical Spine CT 07/03/23 20:12 IMPRESSION: No acute findings within the cervical spine. The cervical central canal is not well assessed on this CT due to artifact. If weakness persists, a cervical spine MRI would be more sensitive in assessment. Medications Medications Current Medications Acetaminophen (Acetaminophen 325 Mg Tablet) 650 mg PO Q6H PRN PRN Reason: Pain, Mild (Pain Scale 1-3) Last Admin: 10/08/23 21:41 Dose: 650 mg Amphetamine/Dextroamphetamine (Amphetamine Mixed Salts 10 Mg Tablet) 5 mg PO BID@0800,1700 BEN Last Admin: 10/10/23 08:54 Dose: 5 mg Bisacodyl (Bisacodyl 5 Mg Tablet.Dr) 10 mg PO DAILY PRN PRN Reason: Constipation Last Admin: 10/08/23 08:25 Dose: 10 mg Docusate Sodium (Docusate Sodium 100 Mg Capsule) 100 mg PO BID [facility] Last Admin: 10/10/23 08:56 Dose: 100 mg Insulin Glargine (Insulin Glargine,Hum.Rec.Anlog 100 Unit/Ml 10 Ml Vial) 6 unit SUBCUT DAILY [facility] Last Admin: 10/10/23 08:54 Dose: 6 unit Magnesium Oxide (Magnesium Oxide 400 Mg Tablet) 400 mg PO BIDPC [facility] Last Admin: 10/10/23 08:55 Dose: 400 mg Memantine (Memantine Hcl 10 Mg Tablet) 10 mg PO BID [facility] Last Admin: 10/10/23 08:56 Dose: 10 mg Nystatin (Nystatin Cream 15 Gm Tube) 1 appl TOPICAL BID [facility]; Protocol Last Admin: 10/09/23 21:42 Dose: 1 appl Olanzapine (Olanzapine 2.5 Mg Tablet) 2.5 mg PO Q4H PRN PRN Reason: anxiety/agitation Last Admin: 10/06/23 21:05 Dose: 2.5 mg Senna (Sennosides 8.6 Mg Tablet) 17.2 mg PO BEDTIME [facility] Last Admin: 10/09/23 20:50 Dose: 17.2 mg Sertraline HCl (Sertraline Hcl 100 Mg Tablet) 200 mg PO DAILY [facility] Last Admin: 10/10/23 08:56 Dose: 200 mg Trazodone HCl (Trazodone Hcl 50 Mg Tablet) 50 mg PO BEDTIME MRX1 PRN PRN Reason: Sleep Last Admin: 10/08/23 21:38 Dose: 50 mg Allergies Allergies Allergy/AdvReac Type Severity Reaction Status Date / Time No Known Allergies Allergy Verified 03/23/23 18:13 Assessment & Plan Assessment & Plan (1) Alzheimer's dementia: Status: Acute Code(s): G30.9 - Alzheimer's disease, unspecified; F02.80 - Dementia in other diseases classified elsewhere, unspecified severity, without behavioral disturbance, psychotic disturbance, mood disturbance, and anxiety Assessment and Plan: August 24 58 years old woman with relative young age onset at Alzheimer dementia but overall clinical picture is affected by significant depression, which continues to be the predominant feature of for clinical picture. Conventional dementia medicines such as donepezil or memantine can be tried but usually do not make significant difference. I would suggest memantine 10 mg twice a day and donepezil 10 mg daily. Recently a new dementia at drug for Alzheimer was approved but only for relatively mild dementia or mild cognitive impairment type of patients. She would not qualify for that drug. 08/11 continue current treatment plan Plan 1. Continue same treatment. 2. Waiting for placement. 3. Lower Haldol to 1 mg p.o. q.h.s. on July 28. August 17 we discontinue Haldol at night. 4. August 18 we decided to add a low dose of Adderall 5 mg p.o. b.i.d. to target her hypoactivity. So far, had been a modest improvement of her hypoactive so we increase other up to 10 mg p.o. b.i.d. on August 24. On October 05 we decided to lower calf 5 mg p.o. b.i.d. since the patient was less hypoactive and slightly irritable. 5. Increase Zoloft up to 150 mg p.o. q.a.m. In August. We are going to increase up to 200 mg on September 27. Plan Plan continue with same treatment 10/07/23 Continue current regime and plan of care. 10/08/23 Continue current regime and plan of care. Pt agrees to trial some different food choices to assist with mgt of constipation. Reason for continued inpatient stay Substantial Risk for: inability to function, rapid decompensation and med/psych decompensation Time Spent With Patient Time: Total time managing care of this patient today __20__ minutes.
[2023-10-10 18:00] VITALS: BP 138/62; PULSE 69; RESP 16; TEMP 35.5; O2SAT 98
[2023-10-10 20:06] LABS: Glucose, Whole Blood 262 mg/dL (60-115)
[2023-10-10] MEDS: Sennosides 8.6 MG TABLET 17.2 MG PO (20:51)
[2023-10-10] MEDS: Nystatin Cream 15 GM TUBE 1 APPL TOPICAL (20:51)
[2023-10-10] MEDS: traZODone HCL 50 MG TABLET PO (23:46)
[2023-10-10] MEDS: OLANZapine 2.5 MG TABLET PO (23:46)
[2023-10-11 06:49] LABS: Glucose, Whole Blood 119 mg/dL (60-115)
[2023-10-11 08:44] VITALS: BP 92/58; PULSE 70; RESP 15; TEMP 36.6; O2SAT 98
[2023-10-11] MEDS: Amphetamine Mixed Salts 10 MG TABLET 5 MG PO ×2 (08:47→16:28)
[2023-10-11] MEDS: Insulin Glargine,Hum.rec.anlog 100 UNIT/ML 10 ML VIAL 6 UNIT SUBCUT (08:49)
[2023-10-11] MEDS: Magnesium Oxide 400 MG TABLET PO ×2 (08:49→16:28)
[2023-10-11] MEDS: Memantine HCl 10 MG TABLET PO ×2 (08:49→21:12)
[2023-10-11] MEDS: Sertraline HCL 100 MG TABLET 200 MG PO (08:49)
[2023-10-11] MEDS: Docusate Sodium 100 MG CAPSULE PO ×2 (08:49→21:12)
[2023-10-11 10:00] VITALS: BP 135/73
--- NOTE | 2023-10-11 11:25 | P.PNPSI_ITS ---
Subjective Subjective Date of Service: 10/11/23 Reason For Visit: hallucinations confusion Subjective Notes: Conditional Voluntary Interim History: The nursing staff reported the patient had been fully compliant with treatment she slept well last night. She had a large bowel movement yesterday. She took p.r.n. Zyprexa and trazodone at night. She had attending to groups and she looks more awake and alert. The vp digital marketing social media and crm reported that her daughter has not been responding to the guardian and she is ready to go to [facility] but there is no financial clearance. On interview the patient denies new symptoms pleasantly confused, waiting for placement Mental Status Exam Mental Status Exam Patient Appearance: Well Grooomed and Appropriate Patient Orientation: Person and Situation Level of Consciousness: Awake and Appropriate Patient Behavior: Guarded and Passive Mood Description: Withdrawn Affect Description: Calm Patient Cognition Impaired: Yes Ability to Follow Directions: Good Speech Pattern: Clear Hallucinations: None Delusions: Not Present Thought Process: Distracted and Slowed Thinking Thought Content: positive for [place] and positive for Poverty of Content Judgement: Poor Diagnostics Vital Signs (24Hr): Vital Signs - 24 hr 10/10/23 18:00 10/11/23 08:44 10/11/23 10:00 Temperature 96 F L 97.9 F Pulse Rate 69 70 Respiratory Rate 16 15 Blood Pressure 138/62 92/58 L 135/73 Pulse Oximetry 98 98 Oxygen Delivery Method Room Air Room Air BMI result Body Mass Index 26.7 Labs 09/04/23 07:52 10/05/23 08:28 Labs: Laboratory Results - last 48 hr 10/09/23 10/10/23 10/10/23 20:13 06:23 20:01 POC Glucose 261 H 136 H 262 H 10/11/23 06:20 POC Glucose 119 H Imaging Radiology Impressions: ITS Impressions Brain MRI 04/03/23 15:30 IMPRESSION: No acute infarct, mass lesion, intracranial hemorrhage, or evidence of hydrocephalus. Mild nonspecific T2/FLAIR hyperintensity in the cerebral white matter and danny presumably on the basis of chronic microangiopathy. Cervical Spine CT 07/03/23 20:12 IMPRESSION: No acute findings within the cervical spine. The cervical central canal is not well assessed on this CT due to artifact. If weakness persists, a cervical spine MRI would be more sensitive in assessment. Medications Medications Current Medications Acetaminophen (Acetaminophen 325 Mg Tablet) 650 mg PO Q6H PRN PRN Reason: Pain, Mild (Pain Scale 1-3) Last Admin: 10/08/23 21:41 Dose: 650 mg Amphetamine/Dextroamphetamine (Amphetamine Mixed Salts 10 Mg Tablet) 5 mg PO BID@0800,1700 [facility] Last Admin: 10/11/23 08:47 Dose: 5 mg Bisacodyl (Bisacodyl 5 Mg Tablet.Dr) 10 mg PO DAILY PRN PRN Reason: Constipation Last Admin: 10/08/23 08:25 Dose: 10 mg Docusate Sodium (Docusate Sodium 100 Mg Capsule) 100 mg PO BID [facility] Last Admin: 10/11/23 08:49 Dose: 100 mg Insulin Glargine (Insulin Glargine,Hum.Rec.Anlog 100 Unit/Ml 10 Ml Vial) 6 unit SUBCUT DAILY [facility] Last Admin: 10/11/23 08:49 Dose: 6 unit Magnesium Oxide (Magnesium Oxide 400 Mg Tablet) 400 mg PO BIDPC [facility] Last Admin: 10/11/23 08:49 Dose: 400 mg Memantine (Memantine Hcl 10 Mg Tablet) 10 mg PO BID [facility] Last Admin: 10/11/23 08:49 Dose: 10 mg Nystatin (Nystatin Cream 15 Gm Tube) 1 appl TOPICAL BID [facility]; Protocol Last Admin: 10/10/23 20:51 Dose: 1 appl Olanzapine (Olanzapine 2.5 Mg Tablet) 2.5 mg PO Q4H PRN PRN Reason: anxiety/agitation Last Admin: 10/10/23 23:46 Dose: 2.5 mg Senna (Sennosides 8.6 Mg Tablet) 17.2 mg PO BEDTIME [facility] Last Admin: 10/10/23 20:51 Dose: 17.2 mg Sertraline HCl (Sertraline Hcl 100 Mg Tablet) 200 mg PO DAILY [facility] Last Admin: 10/11/23 08:49 Dose: 200 mg Trazodone HCl (Trazodone Hcl 50 Mg Tablet) 50 mg PO BEDTIME MRX1 PRN PRN Reason: Sleep Last Admin: 10/10/23 23:46 Dose: 50 mg Allergies Allergies Allergy/AdvReac Type Severity Reaction Status Date / Time No Known Allergies Allergy Verified 03/23/23 18:13 Assessment & Plan Assessment & Plan (1) Alzheimer's dementia: Status: Acute Code(s): G30.9 - Alzheimer's disease, unspecified; F02.80 - Dementia in other diseases classified elsewhere, unspecified severity, without behavioral disturbance, psychotic disturbance, mood disturbance, and anxiety Assessment and Plan: August 24 58 years old woman with relative young age onset at Alzheimer dementia but overall clinical picture is affected by significant depression, which continues to be the predominant feature of for clinical picture. Conventional dementia medicines such as donepezil or memantine can be tried but usually do not make significant difference. I would suggest memantine 10 mg twice a day and donepezil 10 mg daily. Recently a new dementia at drug for Alzheimer was approved but only for relatively mild dementia or mild cognitive impairment type of patients. She would not qualify for that drug. Plan 1. Continue same treatment. 2. Waiting for placement. 3. Lower Haldol to 1 mg p.o. q.h.s. on July 28. August 17 we discontinue Haldol at night. 4. August 18 we decided to add a low dose of Adderall 5 mg p.o. b.i.d. to target her hypoactivity. So far, had been a modest improvement of her hypoactive so we increase other up to 10 mg p.o. b.i.d. on August 24. On October 05 we decided to lower calf 5 mg p.o. b.i.d. since the patient was less hypoactive and slightly irritable. 5. Increase Zoloft up to 150 mg p.o. q.a.m. In August. We are going to increase up to 200 mg on September 27. Plan Plan continue with same treatment Reason for continued inpatient stay Substantial Risk for: inability to function, rapid decompensation and med/psych decompensation Time Spent With Patient Time: Total time managing care of this patient today __20__ minutes.
[2023-10-11] MEDS: Nystatin Cream 15 GM TUBE 1 APPL TOPICAL ×2 (11:27→21:11)
--- NOTE | 2023-10-11 14:37 | MHC.CLN ---
F/U DIET=DIABETIC 1800 KCALS. SUPPLEMENT ENSURE MAX TID PROVIDES 450 KCALS, 90 G PROTEIN. USUALLY EATS WELL. PATIENT STATED THAT SHE WOULD LIKE TO CONTINUE RECEIVING SUPPLEMENT..
[2023-10-11 18:00] VITALS: BP 121/56; PULSE 75; RESP 16; TEMP 36.2; O2SAT 96
[2023-10-11 19:57] LABS: Glucose, Whole Blood 251 mg/dL (60-115)
[2023-10-11] MEDS: Sennosides 8.6 MG TABLET 17.2 MG PO (21:11)
[2023-10-11] MEDS: traZODone HCL 50 MG TABLET PO (21:12)
[2023-10-12 06:33] LABS: Glucose, Whole Blood 149 mg/dL (60-115)
[2023-10-12 07:00] VITALS: BMI 27.3
[2023-10-12] MEDS: Memantine HCl 10 MG TABLET PO ×2 (08:20→20:44)
[2023-10-12] MEDS: Sertraline HCL 100 MG TABLET 200 MG PO (08:20)
[2023-10-12] MEDS: Amphetamine Mixed Salts 10 MG TABLET 5 MG PO ×2 (08:20→16:42)
[2023-10-12] MEDS: Docusate Sodium 100 MG CAPSULE PO ×2 (08:20→20:44)
[2023-10-12] MEDS: Magnesium Oxide 400 MG TABLET PO ×2 (08:20→16:42)
[2023-10-12 08:29] VITALS: BP 105/51; PULSE 62; RESP 14; TEMP 36.8; O2SAT 98
[2023-10-12 08:35] LABS: Creatinine Clr Calc Pharmacy 82.6; Estimated Glomerular Filt Rate > 60
[2023-10-12] MEDS: Insulin Glargine,Hum.rec.anlog 100 UNIT/ML 10 ML VIAL 6 UNIT SUBCUT (08:35)
[2023-10-12 11:19] LABS: Glucose, Whole Blood 191 mg/dL (60-115)
[2023-10-12] MEDS: Nystatin Cream 15 GM TUBE 1 APPL TOPICAL ×2 (12:59→21:00)
--- NOTE | 2023-10-12 13:18 | P.PNPSI_ITS ---
Subjective Subjective Date of Service: 10/12/23 Reason For Visit: hallucinations confusion Subjective Notes: Conditional Voluntary Interim History: The nursing staff reported the patient looks brighter, she is not needing her brace on her neck. She slept well last night and she was fully compliant with treatment. On interview the patient denies new symptoms, waiting for placement. Mental Status Exam Mental Status Exam Patient Appearance: Well Grooomed and Appropriate Patient Orientation: Person and Situation Level of Consciousness: Awake and Appropriate Patient Behavior: Guarded and Passive Mood Description: Withdrawn Affect Description: Constricted Patient Cognition Impaired: Yes Ability to Follow Directions: Good Speech Pattern: Clear Hallucinations: None Delusions: Not Present Thought Process: Distracted and Slowed Thinking Thought Content: positive for [place] and positive for Poverty of Content Judgement: Fair Diagnostics Vital Signs (24Hr): Vital Signs - 24 hr 10/11/23 18:00 10/12/23 08:29 Temperature 97.2 F 98.3 F Pulse Rate 75 62 Respiratory Rate 16 14 Blood Pressure 121/56 L 105/51 L Pulse Oximetry 96 98 Oxygen Delivery Method Room Air Room Air BMI result Body Mass Index 27.3 Labs 09/04/23 07:52 10/12/23 08:18 Labs: Laboratory Results - last 48 hr 10/10/23 10/11/23 10/11/23 20:01 06:20 19:30 Creatinine Estim Creat Clear Calc Estimated GFR POC Glucose 262 H 119 H 251 H 10/12/23 10/12/23 10/12/23 06:14 08:18 11:03 Creatinine 0.67 Estim Creat Clear Calc 82.6 Estimated GFR > 60 POC Glucose 149 H 191 H Imaging Radiology Impressions: ITS Impressions Brain MRI 04/03/23 15:30 IMPRESSION: No acute infarct, mass lesion, intracranial hemorrhage, or evidence of hydrocephalus. Mild nonspecific T2/FLAIR hyperintensity in the cerebral white matter and danny presumably on the basis of chronic microangiopathy. Cervical Spine CT 07/03/23 20:12 IMPRESSION: No acute findings within the cervical spine. The cervical central canal is not well assessed on this CT due to artifact. If weakness persists, a cervical spine MRI would be more sensitive in assessment. Medications Medications Current Medications Acetaminophen (Acetaminophen 325 Mg Tablet) 650 mg PO Q6H PRN PRN Reason: Pain, Mild (Pain Scale 1-3) Last Admin: 10/08/23 21:41 Dose: 650 mg Amphetamine/Dextroamphetamine (Amphetamine Mixed Salts 10 Mg Tablet) 5 mg PO BID@0800,1700 [facility] Last Admin: 10/12/23 08:20 Dose: 5 mg Bisacodyl (Bisacodyl 5 Mg Tablet.Dr) 10 mg PO DAILY PRN PRN Reason: Constipation Last Admin: 10/08/23 08:25 Dose: 10 mg Docusate Sodium (Docusate Sodium 100 Mg Capsule) 100 mg PO BID [facility] Last Admin: 10/12/23 08:20 Dose: 100 mg Insulin Glargine (Insulin Glargine,Hum.Rec.Anlog 100 Unit/Ml 10 Ml Vial) 6 unit SUBCUT DAILY [facility] Last Admin: 10/12/23 08:35 Dose: 6 unit Magnesium Oxide (Magnesium Oxide 400 Mg Tablet) 400 mg PO BIDPC [facility] Last Admin: 10/12/23 08:20 Dose: 400 mg Memantine (Memantine Hcl 10 Mg Tablet) 10 mg PO BID [facility] Last Admin: 10/12/23 08:20 Dose: 10 mg Nystatin (Nystatin Cream 15 Gm Tube) 1 appl TOPICAL BID [facility]; Protocol Last Admin: 10/12/23 12:59 Dose: 1 appl Olanzapine (Olanzapine 2.5 Mg Tablet) 2.5 mg PO Q4H PRN PRN Reason: anxiety/agitation Last Admin: 10/10/23 23:46 Dose: 2.5 mg Senna (Sennosides 8.6 Mg Tablet) 17.2 mg PO BEDTIME [facility] Last Admin: 10/11/23 21:11 Dose: 17.2 mg Sertraline HCl (Sertraline Hcl 100 Mg Tablet) 200 mg PO DAILY [facility] Last Admin: 10/12/23 08:20 Dose: 200 mg Trazodone HCl (Trazodone Hcl 50 Mg Tablet) 50 mg PO BEDTIME MRX1 PRN PRN Reason: Sleep Last Admin: 10/11/23 21:12 Dose: 50 mg Allergies Allergies Allergy/AdvReac Type Severity Reaction Status Date / Time No Known Allergies Allergy Verified 03/23/23 18:13 Assessment & Plan Assessment & Plan (1) Alzheimer's dementia: Status: Acute Code(s): G30.9 - Alzheimer's disease, unspecified; F02.80 - Dementia in other diseases classified elsewhere, unspecified severity, without behavioral disturbance, psychotic disturbance, mood disturbance, and anxiety Assessment and Plan: August 24 58 years old woman with relative young age onset at Alzheimer dementia but overall clinical picture is affected by significant depression, which continues to be the predominant feature of for clinical picture. Conventional dementia medicines such as donepezil or memantine can be tried but usually do not make significant difference. I would suggest memantine 10 mg twice a day and donepezil 10 mg daily. Recently a new dementia at drug for Alzheimer was approved but only for relatively mild dementia or mild cognitive impairment type of patients. She would not qualify for that drug. Plan 1. Continue same treatment. 2. Waiting for placement. 3. Lower Haldol to 1 mg p.o. q.h.s. on July 28. August 17 we discontinue Haldol at night. 4. August 18 we decided to add a low dose of Adderall 5 mg p.o. b.i.d. to target her hypoactivity. So far, had been a modest improvement of her hypoactive so we increase other up to 10 mg p.o. b.i.d. on August 24. On October 05 we decided to lower calf 5 mg p.o. b.i.d. since the patient was less hypoactive and slightly irritable. 5. Increase Zoloft up to 150 mg p.o. q.a.m. In August. We are going to increase up to 200 mg on September 27. Plan Plan continue with same treatment Reason for continued inpatient stay Substantial Risk for: inability to function, rapid decompensation and med/psych decompensation Time Spent With Patient Time: Total time managing care of this patient today __20__ minutes.
[2023-10-12] MEDS: bisacodyL 5 MG TABLET.DR 10 MG PO (17:27)
[2023-10-12] MEDS: polyethylene glycoL 3350 17 GM POWD.PACK PO (17:43)
[2023-10-12] MEDS: Mineral OiL enema 133 ML ENEMA PR (17:58)
[2023-10-12 18:00] VITALS: BP 156/78; PULSE 75; RESP 16; TEMP 36.2; O2SAT 98
[2023-10-12 19:59] LABS: Glucose, Whole Blood 188 mg/dL (60-115)
[2023-10-12] MEDS: Sennosides 8.6 MG TABLET 17.2 MG PO (20:43)
[2023-10-12] MEDS: traZODone HCL 50 MG TABLET PO (20:44)
[2023-10-13] MEDS: OLANZapine 2.5 MG TABLET PO ×2 (03:45→22:36)
[2023-10-13 06:54] LABS: Glucose, Whole Blood 165 mg/dL (60-115)
--- NOTE | 2023-10-13 08:11 | HO.PSYCHPN ---
Subjective Subjective Date of Service: 10/13/23 Reason For Visit: hallucinations confusion Subjective Notes: Conditional Voluntary Interim History: The nursing staff reported the patient had been compliant with treatment. She was seen more alert and awake, she denies new symptoms. The staff has noticed that the patient complains periodically of constipation. We are going to review his bowel regiment today. On interview the patient is pleasantly confused, easily redirectable, waiting for placement. Today, her sister came and visited her. Mental Status Exam Mental Status Exam Patient Appearance: Well Grooomed and Appropriate Patient Orientation: Person and Situation Level of Consciousness: Awake and Appropriate Patient Behavior: Guarded and Passive Mood Description: Withdrawn Affect Description: Constricted Patient Cognition Impaired: Yes Ability to Follow Directions: Good Speech Pattern: Clear Hallucinations: None Delusions: Not Present Thought Process: Distracted and Slowed Thinking Thought Content: positive for [place] and positive for Poverty of Content Judgement: Fair Diagnostics Vital Signs (24Hr): Vital Signs - 24 hr 10/12/23 08:29 10/12/23 18:00 Temperature 98.3 F 97.2 F Pulse Rate 62 75 Respiratory Rate 14 16 Blood Pressure 105/51 L 156/78 H Pulse Oximetry 98 98 Oxygen Delivery Method Room Air Room Air BMI result Body Mass Index 27.3 Labs 09/04/23 07:52 10/12/23 08:18 Labs: Laboratory Results - last 48 hr 10/11/23 10/12/23 10/12/23 19:30 06:14 08:18 Creatinine 0.67 Estim Creat Clear Calc 82.6 Estimated GFR > 60 POC Glucose 251 H 149 H 10/12/23 10/12/23 10/13/23 11:03 19:39 06:20 Creatinine Estim Creat Clear Calc Estimated GFR POC Glucose 191 H 188 H 165 H Imaging Radiology Impressions: ITS Impressions Brain MRI 04/03/23 15:30 IMPRESSION: No acute infarct, mass lesion, intracranial hemorrhage, or evidence of hydrocephalus. Mild nonspecific T2/FLAIR hyperintensity in the cerebral white matter and danny presumably on the basis of chronic microangiopathy. Cervical Spine CT 07/03/23 20:12 IMPRESSION: No acute findings within the cervical spine. The cervical central canal is not well assessed on this CT due to artifact. If weakness persists, a cervical spine MRI would be more sensitive in assessment. Medications Medications Current Medications Acetaminophen (Acetaminophen 325 Mg Tablet) 650 mg PO Q6H PRN PRN Reason: Pain, Mild (Pain Scale 1-3) Last Admin: 10/08/23 21:41 Dose: 650 mg Amphetamine/Dextroamphetamine (Amphetamine Mixed Salts 10 Mg Tablet) 5 mg PO BID@0800,1700 [facility] Last Admin: 10/12/23 16:42 Dose: 5 mg Bisacodyl (Bisacodyl 5 Mg Tablet.Dr) 10 mg PO DAILY PRN PRN Reason: Constipation Last Admin: 10/12/23 17:27 Dose: 10 mg Docusate Sodium (Docusate Sodium 100 Mg Capsule) 100 mg PO BID [facility] Last Admin: 10/12/23 20:44 Dose: 100 mg Insulin Glargine (Insulin Glargine,Hum.Rec.Anlog 100 Unit/Ml 10 Ml Vial) 6 unit SUBCUT DAILY [facility] Last Admin: 10/12/23 08:35 Dose: 6 unit Magnesium Oxide (Magnesium Oxide 400 Mg Tablet) 400 mg PO BIDPC [facility] Last Admin: 10/12/23 16:42 Dose: 400 mg Memantine (Memantine Hcl 10 Mg Tablet) 10 mg PO BID [facility] Last Admin: 10/12/23 20:44 Dose: 10 mg Nystatin (Nystatin Cream 15 Gm Tube) 1 appl TOPICAL BID [facility]; Protocol Last Admin: 10/12/23 21:00 Dose: 1 appl Olanzapine (Olanzapine 2.5 Mg Tablet) 2.5 mg PO Q4H PRN PRN Reason: anxiety/agitation Last Admin: 10/13/23 03:45 Dose: 2.5 mg Polyethylene Glycol (Polyethylene Glycol 3350 17 Gm Powd.Pack) 17 gm PO DAILY [facility] Last Admin: 10/12/23 17:43 Dose: 17 gm Senna (Sennosides 8.6 Mg Tablet) 17.2 mg PO BEDTIME [facility] Last Admin: 10/12/23 20:43 Dose: 17.2 mg Sertraline HCl (Sertraline Hcl 100 Mg Tablet) 200 mg PO DAILY [facility] Last Admin: 10/12/23 08:20 Dose: 200 mg Trazodone HCl (Trazodone Hcl 50 Mg Tablet) 50 mg PO BEDTIME MRX1 PRN PRN Reason: Sleep Last Admin: 10/12/23 20:44 Dose: 50 mg Allergies Allergies Allergy/AdvReac Type Severity Reaction Status Date / Time No Known Allergies Allergy Verified 03/23/23 18:13 Assessment & Plan Assessment & Plan (1) Alzheimer's dementia: Status: Acute Code(s): G30.9 - Alzheimer's disease, unspecified; F02.80 - Dementia in other diseases classified elsewhere, unspecified severity, without behavioral disturbance, psychotic disturbance, mood disturbance, and anxiety Assessment and Plan: August 24 58 years old woman with relative young age onset at Alzheimer dementia but overall clinical picture is affected by significant depression, which continues to be the predominant feature of for clinical picture. Conventional dementia medicines such as donepezil or memantine can be tried but usually do not make significant difference. I would suggest memantine 10 mg twice a day and donepezil 10 mg daily. Recently a new dementia at drug for Alzheimer was approved but only for relatively mild dementia or mild cognitive impairment type of patients. She would not qualify for that drug. Plan 1. Continue same treatment. 2. Waiting for placement. 3. Lower Haldol to 1 mg p.o. q.h.s. on July 28. August 17 we discontinue Haldol at night. 4. August 18 we decided to add a low dose of Adderall 5 mg p.o. b.i.d. to target her hypoactivity. So far, had been a modest improvement of her hypoactive so we increase other up to 10 mg p.o. b.i.d. on August 24. On October 05 we decided to lower calf 5 mg p.o. b.i.d. since the patient was less hypoactive and slightly irritable. 5. Increase Zoloft up to 150 mg p.o. q.a.m. In August. We are going to increase up to 200 mg on September 27. Plan Plan continue with same treatment Reason for continued inpatient stay Substantial Risk for: inability to function, rapid decompensation and med/psych decompensation Time Spent With Patient Time: Total time managing care of this patient today __20__ minutes.
[2023-10-13 08:17] VITALS: BP 120/69; PULSE 66; RESP 16; TEMP 37; O2SAT 98
[2023-10-13] MEDS: Sertraline HCL 100 MG TABLET 200 MG PO (08:21)
[2023-10-13] MEDS: Magnesium Oxide 400 MG TABLET PO ×2 (08:21→17:00)
[2023-10-13] MEDS: Amphetamine Mixed Salts 10 MG TABLET 5 MG PO ×2 (08:21→17:00)
[2023-10-13] MEDS: Memantine HCl 10 MG TABLET PO ×2 (08:21→21:03)
[2023-10-13] MEDS: Docusate Sodium 100 MG CAPSULE PO ×2 (08:21→21:03)
[2023-10-13] MEDS: Insulin Glargine,Hum.rec.anlog 100 UNIT/ML 10 ML VIAL 6 UNIT SUBCUT (08:22)
[2023-10-13] MEDS: polyethylene glycoL 3350 17 GM POWD.PACK PO (08:22)
[2023-10-13] MEDS: Nystatin Cream 15 GM TUBE 1 APPL TOPICAL ×2 (15:46→21:02)
[2023-10-13 18:00] VITALS: BP 129/68; PULSE 74; RESP 18; TEMP 36.9; O2SAT 100
[2023-10-13 20:20] LABS: Glucose, Whole Blood 238 mg/dL (60-115)
[2023-10-13] MEDS: Sennosides 8.6 MG TABLET 17.2 MG PO (21:02)
[2023-10-13] MEDS: traZODone HCL 50 MG TABLET PO (22:36)
[2023-10-13] MEDS: bisacodyL 5 MG TABLET.DR 10 MG PO (23:19)
[2023-10-13] MEDS: Acetaminophen 325 MG TABLET 650 MG PO (23:20)
[2023-10-14] MEDS: bisacodyL 10 MG SUPP.RECT PR (02:32)
[2023-10-14 06:54] LABS: Glucose, Whole Blood 214 mg/dL (60-115)
[2023-10-14 08:53] VITALS: BP 124/76; PULSE 71; RESP 15; TEMP 36.6; O2SAT 98
[2023-10-14] MEDS: Amphetamine Mixed Salts 10 MG TABLET 5 MG PO ×2 (08:55→16:44)
[2023-10-14] MEDS: Docusate Sodium 100 MG CAPSULE PO ×2 (08:55→21:14)
[2023-10-14] MEDS: polyethylene glycoL 3350 17 GM POWD.PACK PO (08:55)
[2023-10-14] MEDS: Insulin Glargine,Hum.rec.anlog 100 UNIT/ML 10 ML VIAL 6 UNIT SUBCUT (09:01)
[2023-10-14] MEDS: Sertraline HCL 100 MG TABLET 200 MG PO (09:01)
[2023-10-14] MEDS: Magnesium Oxide 400 MG TABLET PO ×2 (09:02→16:44)
[2023-10-14] MEDS: Memantine HCl 10 MG TABLET PO ×2 (09:03→21:14)
--- NOTE | 2023-10-14 10:53 | P.PNPSI_ITS ---
Subjective Subjective Date of Service: 10/14/23 Reason For Visit: hallucinations confusion Subjective Notes: Conditional Voluntary Interim History: The nursing staff reported the patient had been compliant with treatment she was seen in the unit wandering, confused at times. Past times but yesterday at night she was complaining of constipation and pain, we are ordering sudden N Layla. On interview the patient denies new symptoms, waiting for placement. Mental Status Exam Mental Status Exam Patient Appearance: Well Grooomed Patient Orientation: Person and Situation Level of Consciousness: Awake and Appropriate Patient Behavior: Guarded and Passive Mood Description: Withdrawn Affect Description: Constricted Patient Cognition Impaired: Yes Ability to Follow Directions: Good Speech Pattern: Clear Hallucinations: None Delusions: Not Present Thought Process: Distracted and Linear Thought Content: positive for [place] and positive for Poverty of Content Judgement: Fair Diagnostics Vital Signs (24Hr): Vital Signs - 24 hr 10/13/23 18:00 10/14/23 08:53 Temperature 98.4 F 97.8 F Pulse Rate 74 71 Respiratory Rate 18 15 Blood Pressure 129/68 124/76 Pulse Oximetry 100 98 Oxygen Delivery Method Room Air Room Air BMI result Body Mass Index 27.3 Labs 09/04/23 07:52 10/12/23 08:18 Labs: Laboratory Results - last 48 hr 10/12/23 10/12/23 10/13/23 11:03 19:39 06:20 POC Glucose 191 H 188 H 165 H 10/13/23 10/14/23 20:03 06:24 POC Glucose 238 H 214 H Imaging Radiology Impressions: ITS Impressions Brain MRI 04/03/23 15:30 IMPRESSION: No acute infarct, mass lesion, intracranial hemorrhage, or evidence of hydrocephalus. Mild nonspecific T2/FLAIR hyperintensity in the cerebral white matter and danny presumably on the basis of chronic microangiopathy. Cervical Spine CT 07/03/23 20:12 IMPRESSION: No acute findings within the cervical spine. The cervical central canal is not well assessed on this CT due to artifact. If weakness persists, a cervical spine MRI would be more sensitive in assessment. Medications Medications Current Medications Acetaminophen (Acetaminophen 325 Mg Tablet) 650 mg PO Q6H PRN PRN Reason: Pain, Mild (Pain Scale 1-3) Last Admin: 10/13/23 23:20 Dose: 650 mg Amphetamine/Dextroamphetamine (Amphetamine Mixed Salts 10 Mg Tablet) 5 mg PO BID@0800,1700 [facility] Last Admin: 10/14/23 08:55 Dose: 5 mg Bisacodyl (Bisacodyl 5 Mg Tablet.Dr) 10 mg PO DAILY PRN PRN Reason: Constipation Last Admin: 10/13/23 23:19 Dose: 10 mg Docusate Sodium (Docusate Sodium 100 Mg Capsule) 100 mg PO BID [facility] Last Admin: 10/14/23 08:55 Dose: 100 mg Insulin Glargine (Insulin Glargine,Hum.Rec.Anlog 100 Unit/Ml 10 Ml Vial) 6 unit SUBCUT DAILY [facility] Last Admin: 10/14/23 09:01 Dose: 6 unit Magnesium Oxide (Magnesium Oxide 400 Mg Tablet) 400 mg PO BIDPC [facility] Last Admin: 10/14/23 09:02 Dose: 400 mg Memantine (Memantine Hcl 10 Mg Tablet) 10 mg PO BID [facility] Last Admin: 10/14/23 09:03 Dose: 10 mg Nystatin (Nystatin Cream 15 Gm Tube) 1 appl TOPICAL BID [facility]; Protocol Last Admin: 10/13/23 21:02 Dose: 1 appl Olanzapine (Olanzapine 2.5 Mg Tablet) 2.5 mg PO Q4H PRN PRN Reason: anxiety/agitation Last Admin: 10/13/23 22:36 Dose: 2.5 mg Polyethylene Glycol (Polyethylene Glycol 3350 17 Gm Powd.Pack) 17 gm PO DAILY [facility] Last Admin: 10/14/23 08:55 Dose: 17 gm Senna (Sennosides 8.6 Mg Tablet) 17.2 mg PO BEDTIME [facility] Last Admin: 10/13/23 21:02 Dose: 17.2 mg Sertraline HCl (Sertraline Hcl 100 Mg Tablet) 200 mg PO DAILY [facility] Last Admin: 10/14/23 09:01 Dose: 200 mg Trazodone HCl (Trazodone Hcl 50 Mg Tablet) 50 mg PO BEDTIME MRX1 PRN PRN Reason: Sleep Last Admin: 10/13/23 22:36 Dose: 50 mg Allergies Allergies Allergy/AdvReac Type Severity Reaction Status Date / Time No Known Allergies Allergy Verified 03/23/23 18:13 Assessment & Plan Assessment & Plan (1) Alzheimer's dementia: Status: Acute Code(s): G30.9 - Alzheimer's disease, unspecified; F02.80 - Dementia in other diseases classified elsewhere, unspecified severity, without behavioral disturbance, psychotic disturbance, mood disturbance, and anxiety Assessment and Plan: August 24 58 years old woman with relative young age onset at Alzheimer dementia but overall clinical picture is affected by significant depression, which continues to be the predominant feature of for clinical picture. Conventional dementia medicines such as donepezil or memantine can be tried but usually do not make significant difference. I would suggest memantine 10 mg twice a day and donepezil 10 mg daily. Recently a new dementia at drug for Alzheimer was approved but only for relatively mild dementia or mild cognitive impairment type of patients. She would not qualify for that drug. Plan 1. Continue same treatment. 2. Waiting for placement. 3. Lower Haldol to 1 mg p.o. q.h.s. on July 28. August 17 we discontinue Haldol at night. 4. August 18 we decided to add a low dose of Adderall 5 mg p.o. b.i.d. to target her hypoactivity. So far, had been a modest improvement of her hypoactive so we increase other up to 10 mg p.o. b.i.d. on August 24. On October 05 we decided to lower calf 5 mg p.o. b.i.d. since the patient was less hypoactive and slightly irritable. 5. Increase Zoloft up to 150 mg p.o. q.a.m. In August. We are going to increase up to 200 mg on September 27. 6. Bowel regiment added. Plan Plan continue with same treatment Reason for continued inpatient stay Substantial Risk for: inability to function, rapid decompensation and med/psych decompensation Time Spent With Patient Time: Total time managing care of this patient today __20__ minutes.
[2023-10-14] MEDS: Sodium Phosphate,Mono-Dibasic 133 ML ENEMA PR (17:56)
[2023-10-14 18:00] VITALS: BP 134/69; PULSE 79; RESP 18; TEMP 36.4; O2SAT 97
[2023-10-14 20:38] LABS: Glucose, Whole Blood 230 mg/dL (60-115)
[2023-10-14] MEDS: Sennosides 8.6 MG TABLET 17.2 MG PO (21:14)
[2023-10-14] MEDS: Lactulose 20 GM/30 ML SOLUTION PO (21:14)
[2023-10-14] MEDS: traZODone HCL 50 MG TABLET PO ×2 (21:14→22:37)
[2023-10-14] MEDS: Nystatin Cream 15 GM TUBE 1 APPL TOPICAL (21:50)
[2023-10-14] MEDS: OLANZapine 2.5 MG TABLET PO (22:37)
[2023-10-15 08:16] VITALS: BP 116/61; PULSE 68; RESP 15; TEMP 36.4; O2SAT 95
[2023-10-15] MEDS: polyethylene glycoL 3350 17 GM POWD.PACK PO (08:17)
[2023-10-15] MEDS: Amphetamine Mixed Salts 10 MG TABLET 5 MG PO ×2 (08:18→16:41)
[2023-10-15] MEDS: Magnesium Oxide 400 MG TABLET PO ×2 (08:19→16:42)
[2023-10-15] MEDS: Memantine HCl 10 MG TABLET PO ×2 (08:20→21:35)
[2023-10-15] MEDS: Docusate Sodium 100 MG CAPSULE PO ×2 (08:20→21:35)
[2023-10-15] MEDS: Sertraline HCL 100 MG TABLET 200 MG PO (08:20)
[2023-10-15] MEDS: Insulin Glargine,Hum.rec.anlog 100 UNIT/ML 10 ML VIAL 6 UNIT SUBCUT (08:22)
[2023-10-15] MEDS: Nystatin Cream 15 GM TUBE 1 APPL TOPICAL ×2 (08:23→21:33)
--- NOTE | 2023-10-15 10:52 | P.PNPSI_ITS ---
Subjective Subjective Date of Service: 10/15/23 Reason For Visit: hallucinations confusion Subjective Notes: Conditional Voluntary Interim History: The nursing staff reported the patient had been pleasant, pacing in the unit. She was seen in the evening crying stating that she was scared in is needed p.r.n. trazodone and Zyprexa. She slept 8 hours. She had a bowel movement yesterday after the N Layla. On interview the patient is pleasantly confused, waiting for placement. Mental Status Exam Mental Status Exam Patient Appearance: Well Grooomed and Appropriate Patient Orientation: Person Level of Consciousness: Awake and Appropriate Patient Behavior: Guarded Mood Description: Withdrawn Affect Description: Constricted Patient Cognition Impaired: Yes Ability to Follow Directions: Good Speech Pattern: Clear Hallucinations: None Delusions: Not Present Thought Process: Linear Thought Content: positive for Circumstantial Judgement: Fair Diagnostics Vital Signs (24Hr): Vital Signs - 24 hr 10/14/23 18:00 10/15/23 08:16 Temperature 97.6 F 97.5 F Pulse Rate 79 68 Respiratory Rate 18 15 Blood Pressure 134/69 116/61 Pulse Oximetry 97 95 Oxygen Delivery Method Room Air Room Air BMI result Body Mass Index 27.3 Labs 09/04/23 07:52 10/12/23 08:18 Labs: Laboratory Results - last 48 hr 10/13/23 10/14/23 10/14/23 20:03 06:24 20:17 POC Glucose 238 H 214 H 230 H Imaging Radiology Impressions: ITS Impressions Brain MRI 04/03/23 15:30 IMPRESSION: No acute infarct, mass lesion, intracranial hemorrhage, or evidence of hydrocephalus. Mild nonspecific T2/FLAIR hyperintensity in the cerebral white matter and danny presumably on the basis of chronic microangiopathy. Cervical Spine CT 07/03/23 20:12 IMPRESSION: No acute findings within the cervical spine. The cervical central canal is not well assessed on this CT due to artifact. If weakness persists, a cervical spine MRI would be more sensitive in assessment. Medications Medications Current Medications Acetaminophen (Acetaminophen 325 Mg Tablet) 650 mg PO Q6H PRN PRN Reason: Pain, Mild (Pain Scale 1-3) Last Admin: 10/13/23 23:20 Dose: 650 mg Amphetamine/Dextroamphetamine (Amphetamine Mixed Salts 10 Mg Tablet) 5 mg PO BID@0800,1700 [facility] Last Admin: 10/15/23 08:18 Dose: 5 mg Bisacodyl (Bisacodyl 5 Mg Tablet.Dr) 10 mg PO DAILY PRN PRN Reason: Constipation Last Admin: 10/13/23 23:19 Dose: 10 mg Docusate Sodium (Docusate Sodium 100 Mg Capsule) 100 mg PO BID [facility] 234 BEDS AT [facility] Last Admin: 10/15/23 08:20 Dose: 100 mg Insulin Glargine (Insulin Glargine,Hum.Rec.Anlog 100 Unit/Ml 10 Ml Vial) 6 unit SUBCUT DAILY [facility] 234 BEDS AT [facility] Last Admin: 10/15/23 08:22 Dose: 6 unit Lactulose (Lactulose 20 Gm/30 Ml Solution) 20 gm PO BID COUNTS INCLUDE 234 BEDS AT [facility] Last Admin: 10/15/23 08:18 Dose: Not Given Magnesium Oxide (Magnesium Oxide 400 Mg Tablet) 400 mg PO BIDPC COUNTS INCLUDE 234 BEDS AT THE [facility] Last Admin: 10/15/23 08:19 Dose: 400 mg Memantine (Memantine Hcl 10 Mg Tablet) 10 mg PO BID [facility]CLUDE 234 BEDS AT [facility] Last Admin: 10/15/23 08:20 Dose: 10 mg Nystatin (Nystatin Cream 15 Gm Tube) 1 appl TOPICAL BID [facility]CLUDE 234 BEDS AT [facility]; Protocol Last Admin: 10/15/23 08:23 Dose: 1 appl Olanzapine (Olanzapine 2.5 Mg Tablet) 2.5 mg PO Q4H PRN PRN Reason: anxiety/agitation Last Admin: 10/14/23 22:37 Dose: 2.5 mg Polyethylene Glycol (Polyethylene Glycol 3350 17 Gm Powd.Pack) 17 gm PO DAILY [facility]S [facility]CLUDE 234 BEDS AT [facility] Last Admin: 10/15/23 08:17 Dose: 17 gm Senna (Sennosides 8.6 Mg Tablet) 17.2 mg PO BEDTIME [facility]S INCLUDE 234 BEDS AT [facility] Last Admin: 10/14/23 21:14 Dose: 17.2 mg Sertraline HCl (Sertraline Hcl 100 Mg Tablet) 200 mg PO DAILY [facility]S [facility]CLUDE 234 BEDS AT [facility] Last Admin: 10/15/23 08:20 Dose: 200 mg Trazodone HCl (Trazodone Hcl 50 Mg Tablet) 50 mg PO BEDTIME MRX1 PRN PRN Reason: Sleep Last Admin: 10/14/23 22:37 Dose: 50 mg Allergies Allergies Allergy/AdvReac Type Severity Reaction Status Date / Time No Known Allergies Allergy Verified 03/23/23 18:13 Assessment & Plan Assessment & Plan (1) Alzheimer's dementia: Status: Acute Code(s): G30.9 - Alzheimer's disease, unspecified; F02.80 - Dementia in other diseases classified elsewhere, unspecified severity, without behavioral disturbance, psychotic disturbance, mood disturbance, and anxiety Assessment and Plan: August 24 58 years old woman with relative young age onset at Alzheimer dementia but overall clinical picture is affected by significant depression, which continues to be the predominant feature of for clinical picture. Conventional dementia medicines such as donepezil or memantine can be tried but usually do not make significant difference. I would suggest memantine 10 mg twice a day and donepezil 10 mg daily. Recently a new dementia at drug for Alzheimer was approved but only for relatively mild dementia or mild cognitive impairment type of patients. She would not qualify for that drug. Plan 1. Continue same treatment. 2. Waiting for placement. 3. Lower Haldol to 1 mg p.o. q.h.s. on July 28. August 17 we discontinue Haldol at night. 4. August 18 we decided to add a low dose of Adderall 5 mg p.o. b.i.d. to target her hypoactivity. So far, had been a modest improvement of her hypoactive so we increase other up to 10 mg p.o. b.i.d. on August 24. On October 05 we decided to lower calf 5 mg p.o. b.i.d. since the patient was less hypoactive and slightly irritable. 5. Increase Zoloft up to 150 mg p.o. q.a.m. In August. We are going to increase up to 200 mg on September 27. 6. Bowel regiment added. Plan Plan continue with same treatment Reason for continued inpatient stay Substantial Risk for: inability to function, rapid decompensation and med/psych decompensation Time Spent With Patient Time: Total time managing care of this patient today __20__ minutes.
[2023-10-15 11:24] LABS: Glucose, Whole Blood 175 mg/dL (60-115)
[2023-10-15 18:00] VITALS: BP 106/62; PULSE 87; RESP 18; TEMP 36.8; O2SAT 97
[2023-10-15] MEDS: Lactulose 20 GM/30 ML SOLUTION PO (21:34)
[2023-10-15] MEDS: traZODone HCL 50 MG TABLET PO (21:34)
[2023-10-15] MEDS: Sennosides 8.6 MG TABLET 17.2 MG PO (21:34)
[2023-10-15] MEDS: OLANZapine 2.5 MG TABLET PO (21:35)
[2023-10-16 06:25] LABS: Glucose, Whole Blood 139 mg/dL (60-115)
[2023-10-16 09:09] VITALS: BP 97/54; PULSE 73; RESP 15; TEMP 36.7; O2SAT 98
[2023-10-16] MEDS: Amphetamine Mixed Salts 10 MG TABLET 5 MG PO ×2 (09:12→17:27)
[2023-10-16] MEDS: Insulin Glargine,Hum.rec.anlog 100 UNIT/ML 10 ML VIAL 6 UNIT SUBCUT (09:12)
[2023-10-16] MEDS: Magnesium Oxide 400 MG TABLET PO ×2 (09:13→17:28)
[2023-10-16] MEDS: Sertraline HCL 100 MG TABLET 200 MG PO (09:13)
[2023-10-16] MEDS: polyethylene glycoL 3350 17 GM POWD.PACK PO (09:14)
[2023-10-16] MEDS: Docusate Sodium 100 MG CAPSULE PO ×2 (09:14→21:09)
[2023-10-16] MEDS: Memantine HCl 10 MG TABLET PO ×2 (09:14→21:09)
--- NOTE | 2023-10-16 14:27 | HO.PSYCHPN ---
Subjective Subjective Date of Service: 10/16/23 Reason For Visit: hallucinations confusion Subjective Notes: Conditional Voluntary Interim History: The nursing staff reported the patient had been more social, she slept 8 hours. The social sciences research scientist reported that [employer] will give us an answer disease week. On interview the patient remains confused but easily redirectable, waiting for placement. Mental Status Exam Mental Status Exam Patient Appearance: Well Grooomed and Appropriate Patient Orientation: Person and Situation Level of Consciousness: Awake and Appropriate Patient Behavior: Guarded and Passive Mood Description: Suspicious Affect Description: Constricted Patient Cognition Impaired: Yes Ability to Follow Directions: Good Speech Pattern: Clear Hallucinations: None Delusions: Not Present Thought Process: Linear Thought Content: positive for Circumstantial Judgement: Fair Diagnostics Vital Signs (24Hr): Vital Signs - 24 hr 10/15/23 18:00 10/16/23 09:09 Temperature 98.3 F 98.1 F Pulse Rate 87 73 Respiratory Rate 18 15 Blood Pressure 106/62 97/54 L Pulse Oximetry 97 98 Oxygen Delivery Method Room Air Room Air BMI result Body Mass Index 27.3 Labs 09/04/23 07:52 10/12/23 08:18 Labs: Laboratory Results - last 48 hr 10/14/23 10/15/23 10/16/23 20:17 11:17 06:18 POC Glucose 230 H 175 H 139 H Imaging Radiology Impressions: ITS Impressions Brain MRI 04/03/23 15:30 IMPRESSION: No acute infarct, mass lesion, intracranial hemorrhage, or evidence of hydrocephalus. Mild nonspecific T2/FLAIR hyperintensity in the cerebral white matter and danny presumably on the basis of chronic microangiopathy. Cervical Spine CT 07/03/23 20:12 IMPRESSION: No acute findings within the cervical spine. The cervical central canal is not well assessed on this CT due to artifact. If weakness persists, a cervical spine MRI would be more sensitive in assessment. Medications Medications Current Medications Acetaminophen (Acetaminophen 325 Mg Tablet) 650 mg PO Q6H PRN PRN Reason: Pain, Mild (Pain Scale 1-3) Last Admin: 10/13/23 23:20 Dose: 650 mg Amphetamine/Dextroamphetamine (Amphetamine Mixed Salts 10 Mg Tablet) 5 mg PO BID@0800,1700 [facility] Last Admin: 10/16/23 09:12 Dose: 5 mg Bisacodyl (Bisacodyl 5 Mg Tablet.Dr) 10 mg PO DAILY PRN PRN Reason: Constipation Last Admin: 10/13/23 23:19 Dose: 10 mg Docusate Sodium (Docusate Sodium 100 Mg Capsule) 100 mg PO BID [facility] Last Admin: 10/16/23 09:14 Dose: 100 mg Insulin Glargine (Insulin Glargine,Hum.Rec.Anlog 100 Unit/Ml 10 Ml Vial) 6 unit SUBCUT DAILY [facility] Last Admin: 10/16/23 09:12 Dose: 6 unit Magnesium Oxide (Magnesium Oxide 400 Mg Tablet) 400 mg PO BIDPC [facility] Last Admin: 10/16/23 09:13 Dose: 400 mg Memantine (Memantine Hcl 10 Mg Tablet) 10 mg PO BID [facility] Last Admin: 10/16/23 09:14 Dose: 10 mg Nystatin (Nystatin Cream 15 Gm Tube) 1 appl TOPICAL BID [facility]; Protocol Last Admin: 10/16/23 09:17 Dose: Not Given Olanzapine (Olanzapine 2.5 Mg Tablet) 2.5 mg PO Q4H PRN PRN Reason: anxiety/agitation Last Admin: 10/15/23 21:35 Dose: 2.5 mg Polyethylene Glycol (Polyethylene Glycol 3350 17 Gm Powd.Pack) 17 gm PO DAILY [facility] Last Admin: 10/16/23 09:14 Dose: 17 gm Senna (Sennosides 8.6 Mg Tablet) 17.2 mg PO BEDTIME [facility] Last Admin: 10/15/23 21:34 Dose: 17.2 mg Sertraline HCl (Sertraline Hcl 100 Mg Tablet) 200 mg PO DAILY [facility] Last Admin: 10/16/23 09:13 Dose: 200 mg Trazodone HCl (Trazodone Hcl 50 Mg Tablet) 50 mg PO BEDTIME MRX1 PRN PRN Reason: Sleep Last Admin: 10/15/23 21:34 Dose: 50 mg Allergies Allergies Allergy/AdvReac Type Severity Reaction Status Date / Time No Known Allergies Allergy Verified 03/23/23 18:13 Assessment & Plan Assessment & Plan (1) Alzheimer's dementia: Status: Acute Code(s): G30.9 - Alzheimer's disease, unspecified; F02.80 - Dementia in other diseases classified elsewhere, unspecified severity, without behavioral disturbance, psychotic disturbance, mood disturbance, and anxiety Assessment and Plan: August 24 58 years old woman with relative young age onset at Alzheimer dementia but overall clinical picture is affected by significant depression, which continues to be the predominant feature of for clinical picture. Conventional dementia medicines such as donepezil or memantine can be tried but usually do not make significant difference. I would suggest memantine 10 mg twice a day and donepezil 10 mg daily. Recently a new dementia at drug for Alzheimer was approved but only for relatively mild dementia or mild cognitive impairment type of patients. She would not qualify for that drug. Plan 1. Continue same treatment. 2. Waiting for placement. 3. Lower Haldol to 1 mg p.o. q.h.s. on July 28. August 17 we discontinue Haldol at night. 4. August 18 we decided to add a low dose of Adderall 5 mg p.o. b.i.d. to target her hypoactivity. So far, had been a modest improvement of her hypoactive so we increase other up to 10 mg p.o. b.i.d. on August 24. On October 05 we decided to lower calf 5 mg p.o. b.i.d. since the patient was less hypoactive and slightly irritable. 5. Increase Zoloft up to 150 mg p.o. q.a.m. In August. We are going to increase up to 200 mg on September 27. 6. Bowel regiment added. Plan Plan continue with same treatment Reason for continued inpatient stay Substantial Risk for: inability to function, rapid decompensation and med/psych decompensation Time Spent With Patient Time: Total time managing care of this patient today __20__ minutes.
[2023-10-16] MEDS: Acetaminophen 325 MG TABLET 650 MG PO (14:39)
[2023-10-16 18:00] VITALS: BP 119/66; PULSE 82; RESP 16; TEMP 36.3; O2SAT 95
[2023-10-16 20:05] LABS: Glucose, Whole Blood 294 mg/dL (60-115)
[2023-10-16] MEDS: OLANZapine 2.5 MG TABLET PO (21:08)
[2023-10-16] MEDS: traZODone HCL 50 MG TABLET PO (21:08)
[2023-10-16] MEDS: Sennosides 8.6 MG TABLET 17.2 MG PO (21:08)
[2023-10-16] MEDS: Nystatin Cream 15 GM TUBE 1 APPL TOPICAL (21:13)
[2023-10-17 06:32] LABS: Glucose, Whole Blood 181 mg/dL (60-115)
[2023-10-17 07:37] VITALS: BP 133/74; PULSE 68; RESP 16; TEMP 36.1; O2SAT 98
[2023-10-17] MEDS: Amphetamine Mixed Salts 10 MG TABLET 5 MG PO ×2 (08:26→17:05)
[2023-10-17] MEDS: Sertraline HCL 100 MG TABLET 200 MG PO (08:26)
[2023-10-17] MEDS: Magnesium Oxide 400 MG TABLET PO ×2 (08:26→17:05)
[2023-10-17] MEDS: Memantine HCl 10 MG TABLET PO ×2 (08:26→21:01)
[2023-10-17] MEDS: Docusate Sodium 100 MG CAPSULE PO ×2 (08:26→21:01)
[2023-10-17] MEDS: polyethylene glycoL 3350 17 GM POWD.PACK PO (08:26)
[2023-10-17] MEDS: Insulin Glargine,Hum.rec.anlog 100 UNIT/ML 10 ML VIAL 6 UNIT SUBCUT (08:28)
--- NOTE | 2023-10-17 11:54 | P.PNPSI_ITS ---
Subjective Subjective Date of Service: 10/17/23 Reason For Visit: hallucinations confusion Subjective Notes: Conditional Voluntary Interim History: The nursing staff reported no changes in her mental status. The social worker masters reported the [facility] has done and the assessment but there is no financial clearance at this point. On interview the patient denies new symptoms, waiting for placement. Mental Status Exam Mental Status Exam Patient Appearance: Well Grooomed and Appropriate Patient Orientation: Person and Situation Level of Consciousness: Awake and Appropriate Patient Behavior: Guarded and Passive Mood Description: Withdrawn Affect Description: Constricted Patient Cognition Impaired: Yes Ability to Follow Directions: Good Speech Pattern: Clear Hallucinations: None Delusions: Not Present Thought Process: Distracted Thought Content: positive for [place] and positive for Poverty of Content Judgement: Fair Diagnostics Vital Signs (24Hr): Vital Signs - 24 hr 10/16/23 18:00 10/17/23 07:37 Temperature 97.3 F 97.0 F Pulse Rate 82 68 Respiratory Rate 16 16 Blood Pressure 119/66 133/74 Pulse Oximetry 95 98 Oxygen Delivery Method Room Air Room Air BMI result Body Mass Index 27.3 Labs 09/04/23 07:52 10/12/23 08:18 Labs: Laboratory Results - last 48 hr 10/16/23 10/16/23 10/17/23 06:18 19:52 06:10 POC Glucose 139 H 294 H 181 H Imaging Radiology Impressions: ITS Impressions Brain MRI 04/03/23 15:30 IMPRESSION: No acute infarct, mass lesion, intracranial hemorrhage, or evidence of hydrocephalus. Mild nonspecific T2/FLAIR hyperintensity in the cerebral white matter and danny presumably on the basis of chronic microangiopathy. Cervical Spine CT 07/03/23 20:12 IMPRESSION: No acute findings within the cervical spine. The cervical central canal is not well assessed on this CT due to artifact. If weakness persists, a cervical spine MRI would be more sensitive in assessment. Medications Medications Current Medications Acetaminophen (Acetaminophen 325 Mg Tablet) 650 mg PO Q6H PRN PRN Reason: Pain, Mild (Pain Scale 1-3) Last Admin: 10/16/23 14:39 Dose: 650 mg Amphetamine/Dextroamphetamine (Amphetamine Mixed Salts 10 Mg Tablet) 5 mg PO BID@0800,1700 [facility] Last Admin: 10/17/23 08:26 Dose: 5 mg Bisacodyl (Bisacodyl 5 Mg Tablet.Dr) 10 mg PO DAILY PRN PRN Reason: Constipation Last Admin: 10/13/23 23:19 Dose: 10 mg Docusate Sodium (Docusate Sodium 100 Mg Capsule) 100 mg PO BID [facility] Last Admin: 10/17/23 08:26 Dose: 100 mg Insulin Glargine (Insulin Glargine,Hum.Rec.Anlog 100 Unit/Ml 10 Ml Vial) 6 unit SUBCUT DAILY [facility] Last Admin: 10/17/23 08:28 Dose: 6 unit Magnesium Oxide (Magnesium Oxide 400 Mg Tablet) 400 mg PO BIDPC [facility] Last Admin: 10/17/23 08:26 Dose: 400 mg Memantine (Memantine Hcl 10 Mg Tablet) 10 mg PO BID [facility] Last Admin: 10/17/23 08:26 Dose: 10 mg Nystatin (Nystatin Cream 15 Gm Tube) 1 appl TOPICAL BID [facility]; Protocol Last Admin: 10/17/23 08:34 Dose: 1 appl Olanzapine (Olanzapine 2.5 Mg Tablet) 2.5 mg PO Q4H PRN PRN Reason: anxiety/agitation Last Admin: 10/16/23 21:08 Dose: 2.5 mg Polyethylene Glycol (Polyethylene Glycol 3350 17 Gm Powd.Pack) 17 gm PO DAILY [facility] Last Admin: 10/17/23 08:26 Dose: 17 gm Senna (Sennosides 8.6 Mg Tablet) 17.2 mg PO BEDTIME [facility] Last Admin: 10/16/23 21:08 Dose: 17.2 mg Sertraline HCl (Sertraline Hcl 100 Mg Tablet) 200 mg PO DAILY [facility] Last Admin: 10/17/23 08:26 Dose: 200 mg Trazodone HCl (Trazodone Hcl 50 Mg Tablet) 50 mg PO BEDTIME MRX1 PRN PRN Reason: Sleep Last Admin: 10/16/23 21:08 Dose: 50 mg Allergies Allergies Allergy/AdvReac Type Severity Reaction Status Date / Time No Known Allergies Allergy Verified 03/23/23 18:13 Assessment & Plan Assessment & Plan (1) Alzheimer's dementia: Status: Acute Code(s): G30.9 - Alzheimer's disease, unspecified; F02.80 - Dementia in other diseases classified elsewhere, unspecified severity, without behavioral disturbance, psychotic disturbance, mood disturbance, and anxiety Assessment and Plan: August 24 58 years old woman with relative young age onset at Alzheimer dementia but overall clinical picture is affected by significant depression, which continues to be the predominant feature of for clinical picture. Conventional dementia medicines such as donepezil or memantine can be tried but usually do not make significant difference. I would suggest memantine 10 mg twice a day and donepezil 10 mg daily. Recently a new dementia at drug for Alzheimer was approved but only for relatively mild dementia or mild cognitive impairment type of patients. She would not qualify for that drug. Plan 1. Continue same treatment. 2. Waiting for placement. 3. Lower Haldol to 1 mg p.o. q.h.s. on July 28. August 17 we discontinue Haldol at night. 4. August 18 we decided to add a low dose of Adderall 5 mg p.o. b.i.d. to target her hypoactivity. So far, had been a modest improvement of her hypoactive so we increase other up to 10 mg p.o. b.i.d. on August 24. On October 05 we decided to lower calf 5 mg p.o. b.i.d. since the patient was less hypoactive and slightly irritable. 5. Increase Zoloft up to 150 mg p.o. q.a.m. In August. We are going to increase up to 200 mg on September 27. 6. Bowel regiment added. Plan Plan continue with same treatment Reason for continued inpatient stay Substantial Risk for: inability to function, rapid decompensation and med/psych decompensation Time Spent With Patient Time: Total time managing care of this patient today __20__ minutes.
[2023-10-17 18:00] VITALS: BP 119/67; PULSE 87; RESP 18; TEMP 36.4; O2SAT 98
[2023-10-17 20:02] LABS: Glucose, Whole Blood 276 mg/dL (60-115)
[2023-10-17] MEDS: Sennosides 8.6 MG TABLET 17.2 MG PO (21:02)
[2023-10-17] MEDS: Nystatin Cream 15 GM TUBE 1 APPL TOPICAL (21:02)
[2023-10-17] MEDS: OLANZapine 2.5 MG TABLET PO (23:08)
[2023-10-17] MEDS: traZODone HCL 50 MG TABLET PO (23:08)
[2023-10-18 06:44] LABS: Glucose, Whole Blood 162 mg/dL (60-115)
[2023-10-18 07:51] VITALS: BP 152/71; PULSE 72; RESP 16; TEMP 36.3; O2SAT 98
[2023-10-18] MEDS: Magnesium Oxide 400 MG TABLET PO ×2 (08:55→17:08)
[2023-10-18] MEDS: Memantine HCl 10 MG TABLET PO ×2 (08:55→19:54)
[2023-10-18] MEDS: Docusate Sodium 100 MG CAPSULE PO ×2 (08:55→19:54)
[2023-10-18] MEDS: Amphetamine Mixed Salts 10 MG TABLET 5 MG PO ×2 (08:55→17:08)
[2023-10-18] MEDS: Sertraline HCL 100 MG TABLET 200 MG PO (08:55)
[2023-10-18] MEDS: Insulin Glargine,Hum.rec.anlog 100 UNIT/ML 10 ML VIAL 6 UNIT SUBCUT (08:59)
[2023-10-18] MEDS: Nystatin Cream 15 GM TUBE 1 APPL TOPICAL (09:00)
[2023-10-18] MEDS: polyethylene glycoL 3350 17 GM POWD.PACK PO (09:06)
[2023-10-18 11:20] LABS: Glucose, Whole Blood 228 mg/dL (60-115)
--- NOTE | 2023-10-18 17:27 | HO.PSYCHPN ---
Subjective Subjective Date of Service: 10/18/23 Reason For Visit: hallucinations confusion Interim History: Met with patient; discussed with team Patient sitting in chair in the day room, head leaning over to 1 side, resting. When asked how she is doing she says that she has diabetes and that she takes meds for that. She asks if ad copy writer will be down here again. Staff reports no changes in behavior but seems to have more frequent lucid moments. Mental Status Exam Mental Status Exam Patient Appearance: Well Grooomed and Appropriate Patient Orientation: Person and Situation Level of Consciousness: Awake and Appropriate Patient Behavior: Passive Mood Description: Withdrawn Affect Description: Withdrawn Patient Cognition Impaired: Yes Ability to Follow Directions: Good Speech Pattern: Clear Hallucinations: None Delusions: Not Present Thought Process: Distracted Thought Content: positive for [place] and positive for Poverty of Content Judgement and Insight: impaired Diagnostics Vital Signs (24Hr): Vital Signs - 24 hr 10/17/23 18:00 10/18/23 07:51 Temperature 97.5 F 97.4 F Pulse Rate 87 72 Respiratory Rate 18 16 Blood Pressure 119/67 152/71 H Pulse Oximetry 98 98 Oxygen Delivery Method Room Air Room Air BMI result Body Mass Index 27.3 Labs 09/04/23 07:52 10/12/23 08:18 Labs: Laboratory Results - last 48 hr 10/16/23 10/17/23 10/17/23 19:52 06:10 19:42 POC Glucose 294 H 181 H 276 H 10/18/23 10/18/23 06:21 11:04 POC Glucose 162 H 228 H Imaging Radiology Impressions: ITS Impressions Brain MRI 04/03/23 15:30 IMPRESSION: No acute infarct, mass lesion, intracranial hemorrhage, or evidence of hydrocephalus. Mild nonspecific T2/FLAIR hyperintensity in the cerebral white matter and danny presumably on the basis of chronic microangiopathy. Cervical Spine CT 07/03/23 20:12 IMPRESSION: No acute findings within the cervical spine. The cervical central canal is not well assessed on this CT due to artifact. If weakness persists, a cervical spine MRI would be more sensitive in assessment. Medications Medications Current Medications Acetaminophen (Acetaminophen 325 Mg Tablet) 650 mg PO Q6H PRN PRN Reason: Pain, Mild (Pain Scale 1-3) Last Admin: 10/16/23 14:39 Dose: 650 mg Amphetamine/Dextroamphetamine (Amphetamine Mixed Salts 10 Mg Tablet) 5 mg PO BID@0800,1700 [facility] Last Admin: 10/18/23 17:08 Dose: 5 mg Bisacodyl (Bisacodyl 5 Mg Tablet.Dr) 10 mg PO DAILY PRN PRN Reason: Constipation Last Admin: 10/13/23 23:19 Dose: 10 mg Docusate Sodium (Docusate Sodium 100 Mg Capsule) 100 mg PO BID [facility] Last Admin: 10/18/23 08:55 Dose: 100 mg Insulin Glargine (Insulin Glargine,Hum.Rec.Anlog 100 Unit/Ml 10 Ml Vial) 6 unit SUBCUT DAILY [facility] Last Admin: 10/18/23 08:59 Dose: 6 unit Magnesium Oxide (Magnesium Oxide 400 Mg Tablet) 400 mg PO BIDPC [facility] Last Admin: 10/18/23 17:08 Dose: 400 mg Memantine (Memantine Hcl 10 Mg Tablet) 10 mg PO BID [facility] Last Admin: 10/18/23 08:55 Dose: 10 mg Nystatin (Nystatin Cream 15 Gm Tube) 1 appl TOPICAL BID [facility]; Protocol Last Admin: 10/18/23 09:00 Dose: 1 appl Olanzapine (Olanzapine 2.5 Mg Tablet) 2.5 mg PO Q4H PRN PRN Reason: anxiety/agitation Last Admin: 10/17/23 23:08 Dose: 2.5 mg Polyethylene Glycol (Polyethylene Glycol 3350 17 Gm Powd.Pack) 17 gm PO DAILY [facility] Last Admin: 10/18/23 09:06 Dose: 17 gm Senna (Sennosides 8.6 Mg Tablet) 17.2 mg PO BEDTIME [facility] Last Admin: 10/17/23 21:02 Dose: 17.2 mg Sertraline HCl (Sertraline Hcl 100 Mg Tablet) 200 mg PO DAILY [facility] Last Admin: 10/18/23 08:55 Dose: 200 mg Trazodone HCl (Trazodone Hcl 50 Mg Tablet) 50 mg PO BEDTIME MRX1 PRN PRN Reason: Sleep Last Admin: 10/17/23 23:08 Dose: 50 mg Allergies Allergies Allergy/AdvReac Type Severity Reaction Status Date / Time No Known Allergies Allergy Verified 03/23/23 18:13 Assessment & Plan Assessment & Plan (1) Alzheimer's dementia: Status: Acute Code(s): G30.9 - Alzheimer's disease, unspecified; F02.80 - Dementia in other diseases classified elsewhere, unspecified severity, without behavioral disturbance, psychotic disturbance, mood disturbance, and anxiety Assessment and Plan: August 24 58 years old woman with relative young age onset at Alzheimer dementia but overall clinical picture is affected by significant depression, which continues to be the predominant feature of for clinical picture. Conventional dementia medicines such as donepezil or memantine can be tried but usually do not make significant difference. I would suggest memantine 10 mg twice a day and donepezil 10 mg daily. Recently a new dementia at drug for Alzheimer was approved but only for relatively mild dementia or mild cognitive impairment type of patients. She would not qualify for that drug. 10/18 Patient sitting in chair in the day room, head leaning over to 1 side, resting. When asked how she is doing she says that she has diabetes and that she takes meds for that. She asks if ad copy writer will be down here again. Staff reports no changes in behavior but seems to have more frequent lucid moments. Plan 1. Continue same treatment. 2. Waiting for placement. 3. Lower Haldol to 1 mg p.o. q.h.s. on July 28. August 17 we discontinue Haldol at night. 4. August 18 we decided to add a low dose of Adderall 5 mg p.o. b.i.d. to target her hypoactivity. So far, had been a modest improvement of her hypoactive so we increase other up to 10 mg p.o. b.i.d. on August 24. On October 05 we decided to lower calf 5 mg p.o. b.i.d. since the patient was less hypoactive and slightly irritable. 5. Increase Zoloft up to 150 mg p.o. q.a.m. In August. We are going to increase up to 200 mg on September 27. 6. Bowel regiment added. Plan Plan continue with same treatment Reason for continued inpatient stay Substantial Risk for: inability to function Time Spent With Patient Time: Total time managing care of this patient today ____ minutes.
[2023-10-18 18:00] VITALS: BP 120/66; PULSE 80; RESP 16; TEMP 36.9; O2SAT 99
[2023-10-18] MEDS: Sennosides 8.6 MG TABLET 17.2 MG PO (19:53)
[2023-10-19] MEDS: traZODone HCL 50 MG TABLET PO (00:51)
[2023-10-19] MEDS: OLANZapine 2.5 MG TABLET PO (00:51)
[2023-10-19 06:23] LABS: Glucose, Whole Blood 164 mg/dL (60-115)
[2023-10-19 07:00] VITALS: BMI 27.1
[2023-10-19 08:17] LABS: Creatinine Clr Calc Pharmacy 81.1; Estimated Glomerular Filt Rate > 60
[2023-10-19 08:58] VITALS: BP 110/55; PULSE 76; RESP 15; TEMP 36.6; O2SAT 99
[2023-10-19] MEDS: Amphetamine Mixed Salts 10 MG TABLET 5 MG PO ×2 (09:00→17:11)
[2023-10-19] MEDS: Docusate Sodium 100 MG CAPSULE PO ×2 (09:01→20:18)
[2023-10-19] MEDS: Memantine HCl 10 MG TABLET PO ×2 (09:01→20:18)
[2023-10-19] MEDS: Sertraline HCL 100 MG TABLET 200 MG PO (09:01)
[2023-10-19] MEDS: Magnesium Oxide 400 MG TABLET PO ×2 (09:01→17:11)
[2023-10-19] MEDS: Insulin Glargine,Hum.rec.anlog 100 UNIT/ML 10 ML VIAL 6 UNIT SUBCUT (09:01)
[2023-10-19] MEDS: polyethylene glycoL 3350 17 GM POWD.PACK PO (09:02)
--- NOTE | 2023-10-19 15:28 | P.PNPSI_ITS ---
Subjective Subjective Date of Service: 10/19/23 Reason For Visit: hallucinations confusion Subjective Notes: Conditional Voluntary Interim History: The nursing staff reported the patient had been pleasant, cooperative confused wandering the unit, no changes in her mental status. The sr. social media & mobile manager reported that the main problem or barrier for discharge his financial clearance. We are going to file for conservatorship. On interview the patient denies new symptoms, waiting for placement. Mental Status Exam Mental Status Exam Patient Appearance: Appropriate Patient Orientation: Person and Situation Level of Consciousness: Awake and Appropriate Patient Behavior: Guarded and Passive Mood Description: Withdrawn Affect Description: Constricted Patient Cognition Impaired: Yes Ability to Follow Directions: Good Speech Pattern: Clear Hallucinations: None Delusions: Paranoid Ideation Thought Process: Distracted Thought Content: positive for [place] and positive for Poverty of Content Judgement: Fair Diagnostics Vital Signs (24Hr): Vital Signs - 24 hr 10/18/23 18:00 10/19/23 08:58 Temperature 98.4 F 97.8 F Pulse Rate 80 76 Respiratory Rate 16 15 Blood Pressure 120/66 110/55 L Pulse Oximetry 99 99 Oxygen Delivery Method Room Air Room Air BMI result Body Mass Index 27.1 Labs 09/04/23 07:52 10/19/23 07:54 Labs: Laboratory Results - last 48 hr 10/17/23 10/18/23 10/18/23 19:42 06:21 11:04 Creatinine Estim Creat Clear Calc Estimated GFR POC Glucose 276 H 162 H 228 H 10/19/23 10/19/23 05:49 07:54 Creatinine 0.69 Estim Creat Clear Calc 81.1 Estimated GFR > 60 POC Glucose 164 H Imaging Radiology Impressions: ITS Impressions Brain MRI 04/03/23 15:30 IMPRESSION: No acute infarct, mass lesion, intracranial hemorrhage, or evidence of hydrocephalus. Mild nonspecific T2/FLAIR hyperintensity in the cerebral white matter and danny presumably on the basis of chronic microangiopathy. Cervical Spine CT 07/03/23 20:12 IMPRESSION: No acute findings within the cervical spine. The cervical central canal is not well assessed on this CT due to artifact. If weakness persists, a cervical spine MRI would be more sensitive in assessment. Medications Medications Current Medications Acetaminophen (Acetaminophen 325 Mg Tablet) 650 mg PO Q6H PRN PRN Reason: Pain, Mild (Pain Scale 1-3) Last Admin: 10/16/23 14:39 Dose: 650 mg Amphetamine/Dextroamphetamine (Amphetamine Mixed Salts 10 Mg Tablet) 5 mg PO BID@0800,1700 [facility] Last Admin: 10/19/23 09:00 Dose: 5 mg Bisacodyl (Bisacodyl 5 Mg Tablet.Dr) 10 mg PO DAILY PRN PRN Reason: Constipation Last Admin: 10/13/23 23:19 Dose: 10 mg Docusate Sodium (Docusate Sodium 100 Mg Capsule) 100 mg PO BID [facility] Last Admin: 10/19/23 09:01 Dose: 100 mg Insulin Glargine (Insulin Glargine,Hum.Rec.Anlog 100 Unit/Ml 10 Ml Vial) 6 unit SUBCUT DAILY [facility] Last Admin: 10/19/23 09:01 Dose: 6 unit Magnesium Oxide (Magnesium Oxide 400 Mg Tablet) 400 mg PO BIDPC [facility] Last Admin: 10/19/23 09:01 Dose: 400 mg Memantine (Memantine Hcl 10 Mg Tablet) 10 mg PO BID [facility] Last Admin: 10/19/23 09:01 Dose: 10 mg Nystatin (Nystatin Cream 15 Gm Tube) 1 appl TOPICAL BID [facility]; Protocol Last Admin: 10/19/23 13:01 Dose: Not Given Olanzapine (Olanzapine 2.5 Mg Tablet) 2.5 mg PO Q4H PRN PRN Reason: anxiety/agitation Last Admin: 10/19/23 00:51 Dose: 2.5 mg Polyethylene Glycol (Polyethylene Glycol 3350 17 Gm Powd.Pack) 17 gm PO DAILY [facility] Last Admin: 10/19/23 09:02 Dose: 17 gm Senna (Sennosides 8.6 Mg Tablet) 17.2 mg PO BEDTIME [facility] Last Admin: 10/18/23 19:53 Dose: 17.2 mg Sertraline HCl (Sertraline Hcl 100 Mg Tablet) 200 mg PO DAILY [facility] Last Admin: 10/19/23 09:01 Dose: 200 mg Trazodone HCl (Trazodone Hcl 50 Mg Tablet) 50 mg PO BEDTIME MRX1 PRN PRN Reason: Sleep Last Admin: 10/19/23 00:51 Dose: 50 mg Allergies Allergies Allergy/AdvReac Type Severity Reaction Status Date / Time No Known Allergies Allergy Verified 03/23/23 18:13 Assessment & Plan Assessment & Plan (1) Alzheimer's dementia: Status: Acute Code(s): G30.9 - Alzheimer's disease, unspecified; F02.80 - Dementia in other diseases classified elsewhere, unspecified severity, without behavioral disturbance, psychotic disturbance, mood disturbance, and anxiety Assessment and Plan: August 24 58 years old woman with relative young age onset at Alzheimer dementia but overall clinical picture is affected by significant depression, which continues to be the predominant feature of for clinical picture. Conventional dementia medicines such as donepezil or memantine can be tried but usually do not make significant difference. I would suggest memantine 10 mg twice a day and donepezil 10 mg daily. Recently a new dementia at drug for Alzheimer was approved but only for relatively mild dementia or mild cognitive impairment type of patients. She would not qualify for that drug. 10/18 Patient sitting in chair in the day room, head leaning over to 1 side, resting. When asked how she is doing she says that she has diabetes and that she takes meds for that. She asks if designer/writer will be down here again. Staff reports no changes in behavior but seems to have more frequent lucid moments. Plan 1. Continue same treatment. 2. Waiting for placement. 3. Lower Haldol to 1 mg p.o. q.h.s. on July 28. August 17 we discontinue Haldol at night. 4. August 18 we decided to add a low dose of Adderall 5 mg p.o. b.i.d. to target her hypoactivity. So far, had been a modest improvement of her hypoactive so we increase other up to 10 mg p.o. b.i.d. on August 24. On October 05 we decided to lower calf 5 mg p.o. b.i.d. since the patient was less hypoactive and slightly irritable. 5. Increase Zoloft up to 150 mg p.o. q.a.m. In August. We are going to increase up to 200 mg on September 27. 6. Bowel regiment added. Plan Plan continue with same treatment Reason for continued inpatient stay Substantial Risk for: inability to function, rapid decompensation and med/psych decompensation Time Spent With Patient Time: Total time managing care of this patient today ___20_ minutes.
[2023-10-19 18:00] VITALS: BP 118/60; PULSE 78; RESP 18; TEMP 36.3; O2SAT 97
[2023-10-19] MEDS: Sennosides 8.6 MG TABLET 17.2 MG PO (20:18)
[2023-10-19] MEDS: Nystatin Cream 15 GM TUBE 1 APPL TOPICAL (22:39)
[2023-10-19 22:58] LABS: Glucose, Whole Blood 144 mg/dL (60-115)
[2023-10-20] MEDS: traZODone HCL 50 MG TABLET PO ×2 (02:54→20:11)
[2023-10-20] MEDS: OLANZapine 2.5 MG TABLET PO (02:54)
--- NOTE | 2023-10-20 08:21 | P.PNPSI_ITS ---
Subjective Subjective Date of Service: 10/20/23 Reason For Visit: hallucinations confusion Subjective Notes: Conditional Voluntary Interim History: The nursing staff reported the patient had been compliant with treatment, she had being crying yesterday worried about her situation. The staff reported that she slept poorly needed trazodone and Zyprexa at night p.r.n.. On interview the patient denies new symptoms pleasantly confused, easily redirectable, waiting for placement. Mental Status Exam Mental Status Exam Patient Appearance: Appropriate Patient Orientation: Person and Situation Level of Consciousness: Awake and Appropriate Patient Behavior: Guarded and Passive Mood Description: Withdrawn Affect Description: Constricted Patient Cognition Impaired: Yes Ability to Follow Directions: Good Speech Pattern: Clear Hallucinations: None Delusions: Not Present Thought Process: Distracted and Slowed Thinking Thought Content: positive for [place] and positive for Poverty of Content Judgement: Poor Diagnostics Vital Signs (24Hr): Vital Signs - 24 hr 10/19/23 08:58 10/19/23 18:00 Temperature 97.8 F 97.4 F Pulse Rate 76 78 Respiratory Rate 15 18 Blood Pressure 110/55 L 118/60 Pulse Oximetry 99 97 Oxygen Delivery Method Room Air Room Air BMI result Body Mass Index 27.1 Labs 09/04/23 07:52 10/19/23 07:54 Labs: Laboratory Results - last 48 hr 10/18/23 10/19/23 10/19/23 11:04 05:49 07:54 Creatinine 0.69 Estim Creat Clear Calc 81.1 Estimated GFR > 60 POC Glucose 228 H 164 H 10/19/23 22:52 Creatinine Estim Creat Clear Calc Estimated GFR POC Glucose 144 H Imaging Radiology Impressions: ITS Impressions Brain MRI 04/03/23 15:30 IMPRESSION: No acute infarct, mass lesion, intracranial hemorrhage, or evidence of hydrocephalus. Mild nonspecific T2/FLAIR hyperintensity in the cerebral white matter and danny presumably on the basis of chronic microangiopathy. Cervical Spine CT 07/03/23 20:12 IMPRESSION: No acute findings within the cervical spine. The cervical central canal is not well assessed on this CT due to artifact. If weakness persists, a cervical spine MRI would be more sensitive in assessment. Medications Medications Current Medications Acetaminophen (Acetaminophen 325 Mg Tablet) 650 mg PO Q6H PRN PRN Reason: Pain, Mild (Pain Scale 1-3) Last Admin: 10/16/23 14:39 Dose: 650 mg Amphetamine/Dextroamphetamine (Amphetamine Mixed Salts 10 Mg Tablet) 5 mg PO BID@0800,1700 [facility] Last Admin: 10/19/23 17:11 Dose: 5 mg Bisacodyl (Bisacodyl 5 Mg Tablet.Dr) 10 mg PO DAILY PRN PRN Reason: Constipation Last Admin: 10/13/23 23:19 Dose: 10 mg Docusate Sodium (Docusate Sodium 100 Mg Capsule) 100 mg PO BID [facility] Last Admin: 10/19/23 20:18 Dose: 100 mg Insulin Glargine (Insulin Glargine,Hum.Rec.Anlog 100 Unit/Ml 10 Ml Vial) 6 unit SUBCUT DAILY [facility] Last Admin: 10/19/23 09:01 Dose: 6 unit Magnesium Oxide (Magnesium Oxide 400 Mg Tablet) 400 mg PO BIDPC [facility] Last Admin: 10/19/23 17:11 Dose: 400 mg Memantine (Memantine Hcl 10 Mg Tablet) 10 mg PO BID [facility] Last Admin: 10/19/23 20:18 Dose: 10 mg Nystatin (Nystatin Cream 15 Gm Tube) 1 appl TOPICAL BID [facility]; Protocol Last Admin: 10/19/23 22:39 Dose: 1 appl Olanzapine (Olanzapine 2.5 Mg Tablet) 2.5 mg PO Q4H PRN PRN Reason: anxiety/agitation Last Admin: 10/20/23 02:54 Dose: 2.5 mg Polyethylene Glycol (Polyethylene Glycol 3350 17 Gm Powd.Pack) 17 gm PO DAILY [facility] Last Admin: 10/19/23 09:02 Dose: 17 gm Senna (Sennosides 8.6 Mg Tablet) 17.2 mg PO BEDTIME [facility] Last Admin: 10/19/23 20:18 Dose: 17.2 mg Sertraline HCl (Sertraline Hcl 100 Mg Tablet) 200 mg PO DAILY [facility] Last Admin: 10/19/23 09:01 Dose: 200 mg Trazodone HCl (Trazodone Hcl 50 Mg Tablet) 50 mg PO BEDTIME MRX1 PRN PRN Reason: Sleep Last Admin: 10/20/23 02:54 Dose: 50 mg Allergies Allergies Allergy/AdvReac Type Severity Reaction Status Date / Time No Known Allergies Allergy Verified 03/23/23 18:13 Assessment & Plan Assessment & Plan (1) Alzheimer's dementia: Status: Acute Code(s): G30.9 - Alzheimer's disease, unspecified; F02.80 - Dementia in other diseases classified elsewhere, unspecified severity, without behavioral disturbance, psychotic disturbance, mood disturbance, and anxiety Assessment and Plan: August 24 58 years old woman with relative young age onset at Alzheimer dementia but overall clinical picture is affected by significant depression, which continues to be the predominant feature of for clinical picture. Conventional dementia medicines such as donepezil or memantine can be tried but usually do not make significant difference. I would suggest memantine 10 mg twice a day and donepezil 10 mg daily. Recently a new dementia at drug for Alzheimer was approved but only for relatively mild dementia or mild cognitive impairment type of patients. She would not qualify for that drug. 10/18 Patient sitting in chair in the day room, head leaning over to 1 side, resting. When asked how she is doing she says that she has diabetes and that she takes meds for that. She asks if curriculum writer will be down here again. Staff reports no changes in behavior but seems to have more frequent lucid moments. Plan 1. Continue same treatment. 2. Waiting for placement. 3. Lower Haldol to 1 mg p.o. q.h.s. on July 28. August 17 we discontinue Haldol at night. 4. August 18 we decided to add a low dose of Adderall 5 mg p.o. b.i.d. to target her hypoactivity. So far, had been a modest improvement of her hypoactive so we increase other up to 10 mg p.o. b.i.d. on August 24. On October 05 we decided to lower calf 5 mg p.o. b.i.d. since the patient was less hypoactive and slightly irritable. 5. Increase Zoloft up to 150 mg p.o. q.a.m. In August. We are going to increase up to 200 mg on September 27. 6. Bowel regiment added. Plan Plan continue with same treatment Reason for continued inpatient stay Substantial Risk for: inability to function, rapid decompensation and med/psych decompensation Time Spent With Patient Time: Total time managing care of this patient today __20__ minutes.
[2023-10-20 08:48] VITALS: BP 106/53; PULSE 81; RESP 15; TEMP 36.2; O2SAT 98
[2023-10-20] MEDS: Insulin Glargine,Hum.rec.anlog 100 UNIT/ML 10 ML VIAL 6 UNIT SUBCUT (08:51)
[2023-10-20] MEDS: Memantine HCl 10 MG TABLET PO ×2 (08:52→20:12)
[2023-10-20] MEDS: Amphetamine Mixed Salts 10 MG TABLET 5 MG PO ×2 (08:52→17:24)
[2023-10-20] MEDS: polyethylene glycoL 3350 17 GM POWD.PACK PO (08:52)
[2023-10-20] MEDS: Magnesium Oxide 400 MG TABLET PO ×2 (08:52→17:24)
[2023-10-20] MEDS: Docusate Sodium 100 MG CAPSULE PO ×2 (08:52→20:12)
[2023-10-20] MEDS: Sertraline HCL 100 MG TABLET 200 MG PO (08:52)
[2023-10-20 11:37] LABS: Glucose, Whole Blood 216 mg/dL (60-115)
[2023-10-20 18:00] VITALS: BP 114/80; PULSE 80; RESP 17; TEMP 36.5; O2SAT 98
[2023-10-20] MEDS: Sennosides 8.6 MG TABLET 17.2 MG PO (20:12)
[2023-10-20 22:13] LABS: Glucose, Whole Blood 211 mg/dL (60-115)
[2023-10-21 06:48] LABS: Glucose, Whole Blood 151 mg/dL (60-115)
[2023-10-21 07:48] VITALS: BP 142/67; PULSE 68; RESP 18; TEMP 36.5; O2SAT 97
[2023-10-21] MEDS: Memantine HCl 10 MG TABLET PO ×2 (08:28→22:36)
[2023-10-21] MEDS: Magnesium Oxide 400 MG TABLET PO ×2 (08:28→17:07)
[2023-10-21] MEDS: Sertraline HCL 100 MG TABLET 200 MG PO (08:28)
[2023-10-21] MEDS: Docusate Sodium 100 MG CAPSULE PO ×2 (08:29→22:36)
[2023-10-21] MEDS: Amphetamine Mixed Salts 10 MG TABLET 5 MG PO ×2 (08:29→17:07)
[2023-10-21] MEDS: polyethylene glycoL 3350 17 GM POWD.PACK PO (08:29)
[2023-10-21] MEDS: Insulin Glargine,Hum.rec.anlog 100 UNIT/ML 10 ML VIAL 6 UNIT SUBCUT (08:29)
--- NOTE | 2023-10-21 17:00 | HO.PSYCHPN ---
Subjective Subjective Date of Service: 10/21/23 Reason For Visit: hallucinations confusion Interim History: The nursing staff reported the patient had been compliant with treatment. On interview the patient denies new symptoms pleasantly confused, easily redirectable, waiting for placement. Review of Systems Review of Systems Unremarkable Yes all other systems are reviewed and are negative and Unobtainable due to mental status Constitutional: Reports as per HPI, Denies chills, Denies fatigue, Denies fever(s) and Denies headache(s) Denies headache(s) Cardiovascular: Denies chest pain and Denies dyspnea Respiratory: Denies cough and Denies dyspnea Gastrointestinal: Denies abdominal pain, Denies constipation and Denies vomiting Denies headache(s) and Denies focal weakness Psychiatric: Denies auditory hallucinations, Reports hallucinations (Per the patient's daughter. Patient denies this), Denies tactile hallucinations and Denies suicidal ideation Endocrine: Denies fatigue Mental Status Exam Mental Status Exam Narrative: Hospital clothing. Poor self-care. Needs lots of cuing. Cognition consistent with establish dementia. No SI. No HI. No agitation or psychosis. Insight and judgment poor Patient Appearance: Appropriate Patient Orientation: Person and Situation Level of Consciousness: Awake and Appropriate Patient Behavior: Guarded and Passive Behavior Comments: Eyes remain closed Mood Description: Withdrawn Affect Description: Constricted Patient Cognition Impaired: Yes Ability to Follow Directions: Good Speech Pattern: Clear Memory Description: Working Impaired Diagnostics Vital Signs (24Hr): Vital Signs - 24 hr 10/20/23 18:00 10/21/23 07:48 Temperature 97.7 F 97.7 F Pulse Rate 80 68 Respiratory Rate 17 18 Blood Pressure 114/80 142/67 H Pulse Oximetry 98 97 Oxygen Delivery Method Room Air Room Air BMI result Body Mass Index 27.1 Labs 09/04/23 07:52 10/19/23 07:54 Labs: Laboratory Results - last 48 hr 10/19/23 10/20/23 10/20/23 22:52 11: 22:08 POC Glucose 144 H 216 H 211 H 10/21/23 06:06 POC Glucose 151 H Imaging Radiology Impressions: ITS Impressions Brain MRI 04/03/23 15:30 IMPRESSION: No acute infarct, mass lesion, intracranial hemorrhage, or evidence of hydrocephalus. Mild nonspecific T2/FLAIR hyperintensity in the cerebral white matter and danny presumably on the basis of chronic microangiopathy. Cervical Spine CT 07/03/23 20:12 IMPRESSION: No acute findings within the cervical spine. The cervical central canal is not well assessed on this CT due to artifact. If weakness persists, a cervical spine MRI would be more sensitive in assessment. Medications Medications Current Medications Acetaminophen (Acetaminophen 325 Mg Tablet) 650 mg PO Q6H PRN PRN Reason: Pain, Mild (Pain Scale 1-3) Last Admin: 10/16/23 14:39 Dose: 650 mg Amphetamine/Dextroamphetamine (Amphetamine Mixed Salts 10 Mg Tablet) 5 mg PO BID@0800,1700 [facility] Last Admin: 10/21/23 08:29 Dose: 5 mg Bisacodyl (Bisacodyl 5 Mg Tablet.Dr) 10 mg PO DAILY PRN PRN Reason: Constipation Last Admin: 10/13/23 23:19 Dose: 10 mg Docusate Sodium (Docusate Sodium 100 Mg Capsule) 100 mg PO BID [facility] Last Admin: 10/21/23 08:29 Dose: 100 mg Insulin Glargine (Insulin Glargine,Hum.Rec.Anlog 100 Unit/Ml 10 Ml Vial) 6 unit SUBCUT DAILY [facility] Last Admin: 10/21/23 08:29 Dose: 6 unit Magnesium Oxide (Magnesium Oxide 400 Mg Tablet) 400 mg PO BIDPC [facility] Last Admin: 10/21/23 08:28 Dose: 400 mg Memantine (Memantine Hcl 10 Mg Tablet) 10 mg PO BID [facility] Last Admin: 10/21/23 08:28 Dose: 10 mg Nystatin (Nystatin Cream 15 Gm Tube) 1 appl TOPICAL BID [facility]; Protocol Last Admin: 10/21/23 08:36 Dose: Not Given Olanzapine (Olanzapine 2.5 Mg Tablet) 2.5 mg PO Q4H PRN PRN Reason: anxiety/agitation Last Admin: 10/20/23 02:54 Dose: 2.5 mg Polyethylene Glycol (Polyethylene Glycol 3350 17 Gm Powd.Pack) 17 gm PO DAILY [facility] Last Admin: 10/21/23 08:29 Dose: 17 gm Senna (Sennosides 8.6 Mg Tablet) 17.2 mg PO BEDTIME [facility] Last Admin: 10/20/23 20:12 Dose: 17.2 mg Sertraline HCl (Sertraline Hcl 100 Mg Tablet) 200 mg PO DAILY [facility] Last Admin: 10/21/23 08:28 Dose: 200 mg Trazodone HCl (Trazodone Hcl 50 Mg Tablet) 50 mg PO BEDTIME MRX1 PRN PRN Reason: Sleep Last Admin: 10/20/23 20:11 Dose: 50 mg Allergies Allergies Allergy/AdvReac Type Severity Reaction Status Date / Time No Known Allergies Allergy Verified 03/23/23 18:13 Assessment & Plan Assessment & Plan (1) Alzheimer's dementia: Status: Acute Code(s): G30.9 - Alzheimer's disease, unspecified; F02.80 - Dementia in other diseases classified elsewhere, unspecified severity, without behavioral disturbance, psychotic disturbance, mood disturbance, and anxiety Assessment and Plan: August 24 58 years old woman with relative young age onset at Alzheimer dementia but overall clinical picture is affected by significant depression, which continues to be the predominant feature of for clinical picture. Conventional dementia medicines such as donepezil or memantine can be tried but usually do not make significant difference. I would suggest memantine 10 mg twice a day and donepezil 10 mg daily. Recently a new dementia at drug for Alzheimer was approved but only for relatively mild dementia or mild cognitive impairment type of patients. She would not qualify for that drug. 10/18 Patient sitting in chair in the day room, head leaning over to 1 side, resting. When asked how she is doing she says that she has diabetes and that she takes meds for that. She asks if television script writer will be down here again. Staff reports no changes in behavior but seems to have more frequent lucid moments. Plan 1. Continue same treatment. 2. Waiting for placement. 3. Lower Haldol to 1 mg p.o. q.h.s. on July 28. August 17 we discontinue Haldol at night. 4. August 18 we decided to add a low dose of Adderall 5 mg p.o. b.i.d. to target her hypoactivity. So far, had been a modest improvement of her hypoactive so we increase other up to 10 mg p.o. b.i.d. on August 24. On October 05 we decided to lower calf 5 mg p.o. b.i.d. since the patient was less hypoactive and slightly irritable. 5. Increase Zoloft up to 150 mg p.o. q.a.m. In August. We are going to increase up to 200 mg on September 27. 6. Bowel regiment added. 10/21: Continue current treatment plan. Plan Plan continue with same treatment Reason for continued inpatient stay Substantial Risk for: inability to function, rapid decompensation and med/psych decompensation Time Spent With Patient Time: Total time managing care of this patient today ____ minutes.
[2023-10-21 18:00] VITALS: BP 126/67; PULSE 72; RESP 17; TEMP 37.1; O2SAT 99
[2023-10-21 20:02] LABS: Glucose, Whole Blood 228 mg/dL (60-115)
[2023-10-21] MEDS: traZODone HCL 50 MG TABLET PO (22:36)
[2023-10-21] MEDS: Sennosides 8.6 MG TABLET 17.2 MG PO (22:37)
[2023-10-22] MEDS: OLANZapine 2.5 MG TABLET PO ×2 (01:24→22:37)
[2023-10-22] MEDS: traZODone HCL 50 MG TABLET PO ×2 (01:24→22:37)
[2023-10-22 06:30] LABS: Glucose, Whole Blood 177 mg/dL (60-115)
[2023-10-22 07:53] VITALS: BP 139/79; PULSE 74; RESP 18; TEMP 36.3; O2SAT 95
[2023-10-22] MEDS: Amphetamine Mixed Salts 10 MG TABLET 5 MG PO ×2 (08:35→17:19)
[2023-10-22] MEDS: Magnesium Oxide 400 MG TABLET PO ×2 (08:35→17:19)
[2023-10-22] MEDS: Sertraline HCL 100 MG TABLET 200 MG PO (08:35)
[2023-10-22] MEDS: Docusate Sodium 100 MG CAPSULE PO ×2 (08:36→21:35)
[2023-10-22] MEDS: Insulin Glargine,Hum.rec.anlog 100 UNIT/ML 10 ML VIAL 6 UNIT SUBCUT (08:36)
[2023-10-22] MEDS: polyethylene glycoL 3350 17 GM POWD.PACK PO (08:36)
[2023-10-22] MEDS: Memantine HCl 10 MG TABLET PO ×2 (08:36→21:37)
--- NOTE | 2023-10-22 19:27 | P.PNPSI_ITS ---
Subjective Subjective Date of Service: 10/22/23 Reason For Visit: hallucinations confusion Interim History: The nursing staff reported the patient had been compliant with treatment. On interview the patient denies new symptoms pleasantly confused, easily redirectable, waiting for placement. Review of Systems Review of Systems Unremarkable Yes all other systems are reviewed and are negative and Unobtainable due to mental status Constitutional: Reports as per HPI, Denies chills, Denies fatigue, Denies fever(s) and Denies headache(s) Denies headache(s) Cardiovascular: Denies chest pain and Denies dyspnea Respiratory: Denies cough and Denies dyspnea Gastrointestinal: Denies abdominal pain, Denies constipation and Denies vomiting Denies headache(s) and Denies focal weakness Psychiatric: Denies auditory hallucinations, Reports hallucinations (Per the patient's daughter. Patient denies this), Denies tactile hallucinations and Denies suicidal ideation Endocrine: Denies fatigue Mental Status Exam Mental Status Exam Narrative: Hospital clothing. Poor self-care. Needs lots of cuing. Cognition consistent with establish dementia. No SI. No HI. No agitation or psychosis. Insight and judgment poor Patient Appearance: Appropriate Patient Orientation: Person and Situation Level of Consciousness: Awake and Appropriate Patient Behavior: Guarded and Passive Behavior Comments: Eyes remain closed Mood Description: Withdrawn Affect Description: Constricted Patient Cognition Impaired: Yes Ability to Follow Directions: Good Speech Pattern: Clear Memory Description: Working Impaired Diagnostics Vital Signs (24Hr): Vital Signs - 24 hr 10/22/23 07:53 Temperature 97.3 F Pulse Rate 74 Respiratory Rate 18 Blood Pressure 139/79 Pulse Oximetry 95 Oxygen Delivery Method Room Air BMI result Body Mass Index 27.1 Labs 09/04/23 07:52 10/19/23 07:54 Labs: Laboratory Results - last 48 hr 10/20/23 10/21/23 10/21/23 22:08 06:06 19:43 POC Glucose 211 H 151 H 228 H 10/22/23 05:48 POC Glucose 177 H Imaging Radiology Impressions: ITS Impressions Brain MRI 04/03/23 15:30 IMPRESSION: No acute infarct, mass lesion, intracranial hemorrhage, or evidence of hydrocephalus. Mild nonspecific T2/FLAIR hyperintensity in the cerebral white matter and danny presumably on the basis of chronic microangiopathy. Cervical Spine CT 07/03/23 20:12 IMPRESSION: No acute findings within the cervical spine. The cervical central canal is not well assessed on this CT due to artifact. If weakness persists, a cervical spine MRI would be more sensitive in assessment. Medications Medications Current Medications Acetaminophen (Acetaminophen 325 Mg Tablet) 650 mg PO Q6H PRN PRN Reason: Pain, Mild (Pain Scale 1-3) Last Admin: 10/16/23 14:39 Dose: 650 mg Amphetamine/Dextroamphetamine (Amphetamine Mixed Salts 10 Mg Tablet) 5 mg PO BID@0800,1700 [facility] Last Admin: 10/22/23 17:19 Dose: 5 mg Bisacodyl (Bisacodyl 5 Mg Tablet.Dr) 10 mg PO DAILY PRN PRN Reason: Constipation Last Admin: 10/13/23 23:19 Dose: 10 mg Docusate Sodium (Docusate Sodium 100 Mg Capsule) 100 mg PO BID [facility] Last Admin: 10/22/23 08:36 Dose: 100 mg Insulin Glargine (Insulin Glargine,Hum.Rec.Anlog 100 Unit/Ml 10 Ml Vial) 6 unit SUBCUT DAILY [facility] Last Admin: 10/22/23 08:36 Dose: 6 unit Magnesium Oxide (Magnesium Oxide 400 Mg Tablet) 400 mg PO BIDPC [facility] Last Admin: 10/22/23 17:19 Dose: 400 mg Memantine (Memantine Hcl 10 Mg Tablet) 10 mg PO BID [facility] Last Admin: 10/22/23 08:36 Dose: 10 mg Nystatin (Nystatin Cream 15 Gm Tube) 1 appl TOPICAL BID [facility]; Protocol Last Admin: 10/22/23 08:42 Dose: Not Given Olanzapine (Olanzapine 2.5 Mg Tablet) 2.5 mg PO Q4H PRN PRN Reason: anxiety/agitation Last Admin: 10/22/23 01:24 Dose: 2.5 mg Polyethylene Glycol (Polyethylene Glycol 3350 17 Gm Powd.Pack) 17 gm PO DAILY [facility] Last Admin: 10/22/23 08:36 Dose: 17 gm Senna (Sennosides 8.6 Mg Tablet) 17.2 mg PO BEDTIME [facility] Last Admin: 10/21/23 22:37 Dose: 17.2 mg Sertraline HCl (Sertraline Hcl 100 Mg Tablet) 200 mg PO DAILY [facility] Last Admin: 10/22/23 08:35 Dose: 200 mg Trazodone HCl (Trazodone Hcl 50 Mg Tablet) 50 mg PO BEDTIME MRX1 PRN PRN Reason: Sleep Last Admin: 10/22/23 01:24 Dose: 50 mg Allergies Allergies Allergy/AdvReac Type Severity Reaction Status Date / Time No Known Allergies Allergy Verified 03/23/23 18:13 Assessment & Plan Assessment & Plan (1) Alzheimer's dementia: Status: Acute Code(s): G30.9 - Alzheimer's disease, unspecified; F02.80 - Dementia in other diseases classified elsewhere, unspecified severity, without behavioral disturbance, psychotic disturbance, mood disturbance, and anxiety Assessment and Plan: August 24 58 years old woman with relative young age onset at Alzheimer dementia but overall clinical picture is affected by significant depression, which continues to be the predominant feature of for clinical picture. Conventional dementia medicines such as donepezil or memantine can be tried but usually do not make significant difference. I would suggest memantine 10 mg twice a day and donepezil 10 mg daily. Recently a new dementia at drug for Alzheimer was approved but only for relatively mild dementia or mild cognitive impairment type of patients. She would not qualify for that drug. 10/18 Patient sitting in chair in the day room, head leaning over to 1 side, resting. When asked how she is doing she says that she has diabetes and that she takes meds for that. She asks if science writer will be down here again. Staff reports no changes in behavior but seems to have more frequent lucid moments. Plan 1. Continue same treatment. 2. Waiting for placement. 3. Lower Haldol to 1 mg p.o. q.h.s. on July 28. August 17 we discontinue Haldol at night. 4. August 18 we decided to add a low dose of Adderall 5 mg p.o. b.i.d. to target her hypoactivity. So far, had been a modest improvement of her hypoactive so we increase other up to 10 mg p.o. b.i.d. on August 24. On October 05 we decided to lower calf 5 mg p.o. b.i.d. since the patient was less hypoactive and slightly irritable. 5. Increase Zoloft up to 150 mg p.o. q.a.m. In August. We are going to increase up to 200 mg on September 27. 6. Bowel regiment added. 10/21: Continue current treatment plan. 10/22: Continue current treatment plan. Plan Plan continue with same treatment Reason for continued inpatient stay Substantial Risk for: inability to function, rapid decompensation and med/psych decompensation Time Spent With Patient Time: Total time managing care of this patient today ____ minutes.
[2023-10-22 20:30] VITALS: BP 127/71; PULSE 87; RESP 20; TEMP 36.3; O2SAT 97
[2023-10-22] MEDS: Sennosides 8.6 MG TABLET 17.2 MG PO (21:37)
[2023-10-22 21:49] LABS: Glucose, Whole Blood 185 mg/dL (60-115)
[2023-10-23 06:17] LABS: Glucose, Whole Blood 144 mg/dL (60-115)
[2023-10-23] MEDS: Amphetamine Mixed Salts 10 MG TABLET 5 MG PO ×2 (09:07→17:55)
[2023-10-23] MEDS: Docusate Sodium 100 MG CAPSULE PO ×2 (09:08→21:24)
[2023-10-23] MEDS: Memantine HCl 10 MG TABLET PO ×2 (09:08→21:24)
[2023-10-23] MEDS: Sertraline HCL 100 MG TABLET 200 MG PO (09:08)
[2023-10-23] MEDS: Magnesium Oxide 400 MG TABLET PO ×2 (09:08→17:55)
[2023-10-23] MEDS: Insulin Glargine,Hum.rec.anlog 100 UNIT/ML 10 ML VIAL 6 UNIT SUBCUT (09:12)
[2023-10-23 09:15] VITALS: BP 118/60; PULSE 75; RESP 16; TEMP 36.1; O2SAT 96
[2023-10-23] MEDS: polyethylene glycoL 3350 17 GM POWD.PACK PO (11:38)
--- NOTE | 2023-10-23 12:12 | P.PNPSI_ITS ---
Subjective Subjective Date of Service: 10/23/23 Reason For Visit: hallucinations confusion Subjective Notes: Conditional Voluntary Interim History: The nursing staff reported no changes in her mental status, fully compliant with treatment. On interview the patient denies new symptoms, waiting for placement. We are waiting for financial clearance. Mental Status Exam Mental Status Exam Patient Appearance: Well Grooomed Patient Orientation: Person and Situation Level of Consciousness: Awake Patient Behavior: Cooperative and Passive Mood Description: Withdrawn Affect Description: Constricted Patient Cognition Impaired: Yes Ability to Follow Directions: Good Speech Pattern: Clear Hallucinations: None Delusions: Not Present Thought Content: positive for Intact Judgement: Fair Diagnostics Vital Signs (24Hr): Vital Signs - 24 hr 10/22/23 20:30 10/23/23 09:15 Temperature 97.3 F 96.9 F Pulse Rate 87 75 Respiratory Rate 20 16 Blood Pressure 127/71 118/60 Pulse Oximetry 97 96 Oxygen Delivery Method Room Air Room Air BMI result Body Mass Index 27.1 Labs 09/04/23 07:52 10/19/23 07:54 Labs: Laboratory Results - last 48 hr 10/21/23 10/22/23 10/22/23 19:43 05:48 21:34 POC Glucose 228 H 177 H 185 H 10/23/23 05:41 POC Glucose 144 H Imaging Radiology Impressions: ITS Impressions Brain MRI 04/03/23 15:30 IMPRESSION: No acute infarct, mass lesion, intracranial hemorrhage, or evidence of hydrocephalus. Mild nonspecific T2/FLAIR hyperintensity in the cerebral white matter and danny presumably on the basis of chronic microangiopathy. Cervical Spine CT 07/03/23 20:12 IMPRESSION: No acute findings within the cervical spine. The cervical central canal is not well assessed on this CT due to artifact. If weakness persists, a cervical spine MRI would be more sensitive in assessment. Medications Medications Current Medications Acetaminophen (Acetaminophen 325 Mg Tablet) 650 mg PO Q6H PRN PRN Reason: Pain, Mild (Pain Scale 1-3) Last Admin: 10/16/23 14:39 Dose: 650 mg Amphetamine/Dextroamphetamine (Amphetamine Mixed Salts 10 Mg Tablet) 5 mg PO BID@0800,1700 [facility] Last Admin: 10/23/23 09:07 Dose: 5 mg Bisacodyl (Bisacodyl 5 Mg Tablet.Dr) 10 mg PO DAILY PRN PRN Reason: Constipation Last Admin: 10/13/23 23:19 Dose: 10 mg Docusate Sodium (Docusate Sodium 100 Mg Capsule) 100 mg PO BID [facility] Last Admin: 10/23/23 09:08 Dose: 100 mg Insulin Glargine (Insulin Glargine,Hum.Rec.Anlog 100 Unit/Ml 10 Ml Vial) 6 unit SUBCUT DAILY [facility] Last Admin: 10/23/23 09:12 Dose: 6 unit Magnesium Oxide (Magnesium Oxide 400 Mg Tablet) 400 mg PO BIDPC [facility] Last Admin: 10/23/23 09:08 Dose: 400 mg Memantine (Memantine Hcl 10 Mg Tablet) 10 mg PO BID [facility] Last Admin: 10/23/23 09:08 Dose: 10 mg Nystatin (Nystatin Cream 15 Gm Tube) 1 appl TOPICAL BID [facility]; Protocol Last Admin: 10/23/23 11:41 Dose: Not Given Olanzapine (Olanzapine 2.5 Mg Tablet) 2.5 mg PO Q4H PRN PRN Reason: anxiety/agitation Last Admin: 10/22/23 22:37 Dose: 2.5 mg Polyethylene Glycol (Polyethylene Glycol 3350 17 Gm Powd.Pack) 17 gm PO DAILY [facility] Last Admin: 10/23/23 11:38 Dose: 17 gm Senna (Sennosides 8.6 Mg Tablet) 17.2 mg PO BEDTIME [facility] Last Admin: 10/22/23 21:37 Dose: 17.2 mg Sertraline HCl (Sertraline Hcl 100 Mg Tablet) 200 mg PO DAILY [facility] Last Admin: 10/23/23 09:08 Dose: 200 mg Trazodone HCl (Trazodone Hcl 50 Mg Tablet) 50 mg PO BEDTIME MRX1 PRN PRN Reason: Sleep Last Admin: 10/22/23 22:37 Dose: 50 mg Allergies Allergies Allergy/AdvReac Type Severity Reaction Status Date / Time No Known Allergies Allergy Verified 03/23/23 18:13 Assessment & Plan Assessment & Plan (1) Alzheimer's dementia: Status: Acute Code(s): G30.9 - Alzheimer's disease, unspecified; F02.80 - Dementia in other diseases classified elsewhere, unspecified severity, without behavioral disturbance, psychotic disturbance, mood disturbance, and anxiety Assessment and Plan: August 24 58 years old woman with relative young age onset at Alzheimer dementia but overall clinical picture is affected by significant depression, which continues to be the predominant feature of for clinical picture. Conventional dementia medicines such as donepezil or memantine can be tried but usually do not make significant difference. I would suggest memantine 10 mg twice a day and donepezil 10 mg daily. Recently a new dementia at drug for Alzheimer was approved but only for relatively mild dementia or mild cognitive impairment type of patients. She would not qualify for that drug. 10/18 Patient sitting in chair in the day room, head leaning over to 1 side, resting. When asked how she is doing she says that she has diabetes and that she takes meds for that. She asks if bid writer will be down here again. Staff reports no changes in behavior but seems to have more frequent lucid moments. Plan 1. Continue same treatment. 2. Waiting for placement. 3. Lower Haldol to 1 mg p.o. q.h.s. on July 28. August 17 we discontinue Haldol at night. 4. August 18 we decided to add a low dose of Adderall 5 mg p.o. b.i.d. to target her hypoactivity. So far, had been a modest improvement of her hypoactive so we increase other up to 10 mg p.o. b.i.d. on August 24. On October 05 we decided to lower calf 5 mg p.o. b.i.d. since the patient was less hypoactive and slightly irritable. 5. Increase Zoloft up to 150 mg p.o. q.a.m. In August. We are going to increase up to 200 mg on September 27. 6. Bowel regiment added. Plan Plan continue with same treatment Reason for continued inpatient stay Substantial Risk for: inability to function, rapid decompensation and med/psych decompensation Time Spent With Patient Time: Total time managing care of this patient today __20__ minutes.
[2023-10-23 18:00] VITALS: BP 133/61; PULSE 78; RESP 18; TEMP 36.4; O2SAT 100
[2023-10-23] MEDS: Sennosides 8.6 MG TABLET 17.2 MG PO (21:24)
[2023-10-24 06:33] LABS: Glucose, Whole Blood 152 mg/dL (60-115)
[2023-10-24 07:45] VITALS: BP 111/64; PULSE 75; RESP 15; TEMP 36.8; O2SAT 97
[2023-10-24 09:57] LABS: COVID-19 Test Negative (Negative); IDNOW Serial# 08D9AD1C
[2023-10-24] MEDS: Sertraline HCL 100 MG TABLET 200 MG PO (11:42)
[2023-10-24] MEDS: Amphetamine Mixed Salts 10 MG TABLET 5 MG PO ×2 (11:42→16:21)
[2023-10-24] MEDS: Insulin Glargine,Hum.rec.anlog 100 UNIT/ML 10 ML VIAL 6 UNIT SUBCUT (11:43)
[2023-10-24] MEDS: Memantine HCl 10 MG TABLET PO ×2 (11:43→20:56)
[2023-10-24] MEDS: Magnesium Oxide 400 MG TABLET PO ×2 (11:43→16:21)
[2023-10-24] MEDS: Docusate Sodium 100 MG CAPSULE PO ×2 (11:43→20:56)
[2023-10-24] MEDS: polyethylene glycoL 3350 17 GM POWD.PACK PO (11:44)
--- NOTE | 2023-10-24 16:00 | HO.PSYCHPN ---
Subjective Subjective Date of Service: 10/24/23 Reason For Visit: hallucinations confusion Subjective Notes: Conditional Voluntary Interim History: Pt sleeping through the night. No behavioral concerns. Pt denies any physical concerns. VS stable. Takes medications as prescribed. awaiting placement. Review of Systems Review of Systems Unremarkable Yes all other systems are reviewed and are negative and Unobtainable due to mental status Constitutional: Reports as per HPI, Denies chills, Denies fatigue, Denies fever(s) and Denies headache(s) Denies headache(s) Cardiovascular: Denies chest pain and Denies dyspnea Respiratory: Denies cough and Denies dyspnea Gastrointestinal: Denies abdominal pain, Denies constipation and Denies vomiting Denies headache(s) and Denies focal weakness Psychiatric: Denies auditory hallucinations, Reports hallucinations (Per the patient's daughter. Patient denies this), Denies tactile hallucinations and Denies suicidal ideation Endocrine: Denies fatigue Mental Status Exam Mental Status Exam Patient Appearance: Well Grooomed Patient Orientation: Person and Situation Level of Consciousness: Awake Patient Behavior: Cooperative and Passive Behavior Comments: Eyes remain closed Mood Description: Withdrawn Affect Description: Constricted Patient Cognition Impaired: Yes Ability to Follow Directions: Good Speech Pattern: Clear Memory Description: Working Impaired Diagnostics Vital Signs (24Hr): Vital Signs - 24 hr 10/23/23 18:00 10/24/23 07:45 Temperature 97.6 F 98.3 F Pulse Rate 78 75 Respiratory Rate 18 15 Blood Pressure 133/61 111/64 Pulse Oximetry 100 97 Oxygen Delivery Method Room Air Room Air BMI result Body Mass Index 27.1 Labs 09/04/23 07:52 10/19/23 07:54 Labs: Laboratory Results - last 48 hr 10/22/23 10/23/23 10/24/23 21:34 05:41 05:49 POC Glucose 185 H 144 H 152 H COVID-19 (DANIEL) COVID-19 Clin Com 10/24/23 09:40 POC Glucose COVID-19 (DANIEL) Negative COVID-19 Clin Com See Note Imaging Radiology Impressions: ITS Impressions Brain MRI 04/03/23 15:30 IMPRESSION: No acute infarct, mass lesion, intracranial hemorrhage, or evidence of hydrocephalus. Mild nonspecific T2/FLAIR hyperintensity in the cerebral white matter and danny presumably on the basis of chronic microangiopathy. Cervical Spine CT 07/03/23 20:12 IMPRESSION: No acute findings within the cervical spine. The cervical central canal is not well assessed on this CT due to artifact. If weakness persists, a cervical spine MRI would be more sensitive in assessment. Medications Medications Current Medications Acetaminophen (Acetaminophen 325 Mg Tablet) 650 mg PO Q6H PRN PRN Reason: Pain, Mild (Pain Scale 1-3) Last Admin: 10/16/23 14:39 Dose: 650 mg Amphetamine/Dextroamphetamine (Amphetamine Mixed Salts 10 Mg Tablet) 5 mg PO BID@0800,1700 [facility] Last Admin: 10/24/23 11:42 Dose: 5 mg Bisacodyl (Bisacodyl 5 Mg Tablet.Dr) 10 mg PO DAILY PRN PRN Reason: Constipation Last Admin: 10/13/23 23:19 Dose: 10 mg Docusate Sodium (Docusate Sodium 100 Mg Capsule) 100 mg PO BID [facility] Last Admin: 10/24/23 11:43 Dose: 100 mg Insulin Glargine (Insulin Glargine,Hum.Rec.Anlog 100 Unit/Ml 10 Ml Vial) 6 unit SUBCUT DAILY [facility] Last Admin: 10/24/23 11:43 Dose: 6 unit Magnesium Oxide (Magnesium Oxide 400 Mg Tablet) 400 mg PO BIDPC [facility] Last Admin: 10/24/23 11:43 Dose: 400 mg Memantine (Memantine Hcl 10 Mg Tablet) 10 mg PO BID [facility] Last Admin: 10/24/23 11:43 Dose: 10 mg Nystatin (Nystatin Cream 15 Gm Tube) 1 appl TOPICAL BID [facility]; Protocol Last Admin: 10/24/23 11:47 Dose: Not Given Olanzapine (Olanzapine 2.5 Mg Tablet) 2.5 mg PO Q4H PRN PRN Reason: anxiety/agitation Last Admin: 10/22/23 22:37 Dose: 2.5 mg Polyethylene Glycol (Polyethylene Glycol 3350 17 Gm Powd.Pack) 17 gm PO DAILY [facility] Last Admin: 10/24/23 11:44 Dose: 17 gm Senna (Sennosides 8.6 Mg Tablet) 17.2 mg PO BEDTIME [facility] Last Admin: 10/23/23 21:24 Dose: 17.2 mg Sertraline HCl (Sertraline Hcl 100 Mg Tablet) 200 mg PO DAILY [facility] Last Admin: 10/24/23 11:42 Dose: 200 mg Trazodone HCl (Trazodone Hcl 50 Mg Tablet) 50 mg PO BEDTIME MRX1 PRN PRN Reason: Sleep Last Admin: 10/22/23 22:37 Dose: 50 mg Allergies Allergies Allergy/AdvReac Type Severity Reaction Status Date / Time No Known Allergies Allergy Verified 03/23/23 18:13 Assessment & Plan Assessment & Plan (1) Alzheimer's dementia: Status: Acute Code(s): G30.9 - Alzheimer's disease, unspecified; F02.80 - Dementia in other diseases classified elsewhere, unspecified severity, without behavioral disturbance, psychotic disturbance, mood disturbance, and anxiety Assessment and Plan: August 24 58 years old woman with relative young age onset at Alzheimer dementia but overall clinical picture is affected by significant depression, which continues to be the predominant feature of for clinical picture. Conventional dementia medicines such as donepezil or memantine can be tried but usually do not make significant difference. I would suggest memantine 10 mg twice a day and donepezil 10 mg daily. Recently a new dementia at drug for Alzheimer was approved but only for relatively mild dementia or mild cognitive impairment type of patients. She would not qualify for that drug. 10/18 Patient sitting in chair in the day room, head leaning over to 1 side, resting. When asked how she is doing she says that she has diabetes and that she takes meds for that. She asks if policy writer sales will be down here again. Staff reports no changes in behavior but seems to have more frequent lucid moments. Plan 10/24 continue tx. Plan Plan continue with same treatment Reason for continued inpatient stay Substantial Risk for: inability to function Time Spent With Patient Time: Total time managing care of this patient today ____ minutes.
[2023-10-24 20:00] VITALS: BP 133/63; PULSE 79; RESP 16; TEMP 36.7; O2SAT 98
[2023-10-24] MEDS: Nystatin Cream 15 GM TUBE 1 APPL TOPICAL (20:56)
[2023-10-24] MEDS: Sennosides 8.6 MG TABLET 17.2 MG PO (20:56)
[2023-10-24 21:17] LABS: Glucose, Whole Blood 190 mg/dL (60-115)
[2023-10-25 06:43] LABS: Glucose, Whole Blood 141 mg/dL (60-115)
[2023-10-25 09:12] VITALS: BP 114/58; PULSE 75; RESP 15; TEMP 36.4; O2SAT 97
[2023-10-25] MEDS: polyethylene glycoL 3350 17 GM POWD.PACK PO (09:14)
[2023-10-25] MEDS: Amphetamine Mixed Salts 10 MG TABLET 5 MG PO ×2 (09:14→16:49)
[2023-10-25] MEDS: Insulin Glargine,Hum.rec.anlog 100 UNIT/ML 10 ML VIAL 6 UNIT SUBCUT (09:14)
[2023-10-25] MEDS: Sertraline HCL 100 MG TABLET 200 MG PO (09:14)
[2023-10-25] MEDS: Magnesium Oxide 400 MG TABLET PO ×2 (09:15→16:50)
[2023-10-25] MEDS: Memantine HCl 10 MG TABLET PO ×2 (09:15→21:12)
[2023-10-25] MEDS: Docusate Sodium 100 MG CAPSULE PO ×2 (09:15→21:12)
--- NOTE | 2023-10-25 13:00 | P.PNPSI_ITS ---
Subjective Subjective Date of Service: 10/25/23 Reason For Visit: hallucinations confusion Subjective Notes: Conditional Voluntary Interim History: The nursing staff reported the patient has been tearful in a group. She slept well fully compliant with treatment. The social service worker reported that the brother schedule a visit. On interview the patient denies new symptoms, waiting for placement. Mental Status Exam Mental Status Exam Patient Appearance: Appropriate Patient Orientation: Person and Situation Level of Consciousness: Awake Patient Behavior: Guarded and Passive Mood Description: Withdrawn Affect Description: Constricted Patient Cognition Impaired: Yes Ability to Follow Directions: Good Speech Pattern: Clear Hallucinations: None Delusions: Not Present Thought Process: Distracted Thought Content: positive for Poverty of Content Judgement: Fair Diagnostics Vital Signs (24Hr): Vital Signs - 24 hr 10/24/23 20:00 10/25/23 09:12 Temperature 98.0 F 97.6 F Pulse Rate 79 75 Respiratory Rate 16 15 Blood Pressure 133/63 114/58 L Pulse Oximetry 98 97 Oxygen Delivery Method Room Air Room Air BMI result Body Mass Index 27.1 Labs 09/04/23 07:52 10/19/23 07:54 Labs: Laboratory Results - last 48 hr 10/24/23 10/24/23 10/24/23 05:49 09:40 20:49 POC Glucose 152 H 190 H COVID-19 ([facility]ANIEL) Negative COVID-19 Clin Com See Note 10/25/23 06:24 POC Glucose 141 H COVID-19 (DANIEL) COVID-19 Clin Com Imaging Radiology Impressions: ITS Impressions Brain MRI 04/03/23 15:30 IMPRESSION: No acute infarct, mass lesion, intracranial hemorrhage, or evidence of hydrocephalus. Mild nonspecific T2/FLAIR hyperintensity in the cerebral white matter and danny presumably on the basis of chronic microangiopathy. Cervical Spine CT 07/03/23 20:12 IMPRESSION: No acute findings within the cervical spine. The cervical central canal is not well assessed on this CT due to artifact. If weakness persists, a cervical spine MRI would be more sensitive in assessment. Medications Medications Current Medications Acetaminophen (Acetaminophen 325 Mg Tablet) 650 mg PO Q6H PRN PRN Reason: Pain, Mild (Pain Scale 1-3) Last Admin: 10/16/23 14:39 Dose: 650 mg Amphetamine/Dextroamphetamine (Amphetamine Mixed Salts 10 Mg Tablet) 5 mg PO BID@0800,1700 [facility] Last Admin: 10/25/23 09:14 Dose: 5 mg Bisacodyl (Bisacodyl 5 Mg Tablet.Dr) 10 mg PO DAILY PRN PRN Reason: Constipation Last Admin: 10/13/23 23:19 Dose: 10 mg Docusate Sodium (Docusate Sodium 100 Mg Capsule) 100 mg PO BID [facility] Last Admin: 10/25/23 09:15 Dose: 100 mg Insulin Glargine (Insulin Glargine,Hum.Rec.Anlog 100 Unit/Ml 10 Ml Vial) 6 unit SUBCUT DAILY [facility] [place] Last Admin: 10/25/23 09:14 Dose: 6 unit Magnesium Oxide (Magnesium Oxide 400 Mg Tablet) 400 mg PO BIDPC [facility] [place] Last Admin: 10/25/23 09:15 Dose: 400 mg Memantine (Memantine Hcl 10 Mg Tablet) 10 mg PO BID [facility] [place] Last Admin: 10/25/23 09:15 Dose: 10 mg Nystatin (Nystatin Cream 15 Gm Tube) 1 appl TOPICAL BID [facility] [place]; Protocol Last Admin: 10/25/23 09:16 Dose: Not Given Olanzapine (Olanzapine 2.5 Mg Tablet) 2.5 mg PO Q4H PRN PRN Reason: anxiety/agitation Last Admin: 10/22/23 22:37 Dose: 2.5 mg Polyethylene Glycol (Polyethylene Glycol 3350 17 Gm Powd.Pack) 17 gm PO DAILY [facility] [place] Last Admin: 10/25/23 09:14 Dose: 17 gm Senna (Sennosides 8.6 Mg Tablet) 17.2 mg PO BEDTIME [facility] [place] Last Admin: 10/24/23 20:56 Dose: 17.2 mg Sertraline HCl (Sertraline Hcl 100 Mg Tablet) 200 mg PO DAILY [facility] [place] Last Admin: 10/25/23 09:14 Dose: 200 mg Trazodone HCl (Trazodone Hcl 50 Mg Tablet) 50 mg PO BEDTIME MRX1 PRN PRN Reason: Sleep Last Admin: 10/22/23 22:37 Dose: 50 mg Allergies Allergies Allergy/AdvReac Type Severity Reaction Status Date / Time No Known Allergies Allergy Verified 03/23/23 18:13 Assessment & Plan Assessment & Plan (1) Alzheimer's dementia: Status: Acute Code(s): G30.9 - Alzheimer's disease, unspecified; F02.80 - Dementia in other diseases classified elsewhere, unspecified severity, without behavioral disturbance, psychotic disturbance, mood disturbance, and anxiety Assessment and Plan: August 24 58 years old woman with relative young age onset at Alzheimer dementia but overall clinical picture is affected by significant depression, which continues to be the predominant feature of for clinical picture. Conventional dementia medicines such as donepezil or memantine can be tried but usually do not make significant difference. I would suggest memantine 10 mg twice a day and donepezil 10 mg daily. Recently a new dementia at drug for Alzheimer was approved but only for relatively mild dementia or mild cognitive impairment type of patients. She would not qualify for that drug. 10/18 Patient sitting in chair in the day room, head leaning over to 1 side, resting. When asked how she is doing she says that she has diabetes and that she takes meds for that. She asks if curriculum writer will be down here again. Staff reports no changes in behavior but seems to have more frequent lucid moments. Plan 1. Continue with other oral Zoloft and other psychotropics. 2. Waiting for placement Plan Plan continue with same treatment Reason for continued inpatient stay Substantial Risk for: inability to function, rapid decompensation and med/psych decompensation Time Spent With Patient Time: Total time managing care of this patient today __20__ minutes.
[2023-10-25 17:52] LABS: COVID-19 Test Negative (Negative); IDNOW Serial# 08D9AD1C
[2023-10-25 18:00] VITALS: BP 138/63; PULSE 74; RESP 17; TEMP 36.7; O2SAT 98
[2023-10-25 20:03] LABS: Glucose, Whole Blood 174 mg/dL (60-115)
[2023-10-25] MEDS: Acetaminophen 325 MG TABLET 650 MG PO (21:12)
[2023-10-25] MEDS: Sennosides 8.6 MG TABLET 17.2 MG PO (21:12)
[2023-10-25] MEDS: traZODone HCL 50 MG TABLET PO (21:12)
[2023-10-26 06:47] LABS: Glucose, Whole Blood 176 mg/dL (60-115)
[2023-10-26 07:00] VITALS: BMI 27.1
[2023-10-26 08:00] VITALS: BP 126/67; PULSE 66; RESP 18; TEMP 37.3; O2SAT 98
[2023-10-26] MEDS: Memantine HCl 10 MG TABLET PO ×2 (08:53→21:28)
[2023-10-26] MEDS: Docusate Sodium 100 MG CAPSULE PO ×2 (08:53→21:29)
[2023-10-26] MEDS: Sertraline HCL 100 MG TABLET 200 MG PO (08:54)
[2023-10-26] MEDS: Magnesium Oxide 400 MG TABLET PO ×2 (08:54→17:41)
[2023-10-26 08:55] LABS: Creatinine Clr Calc Pharmacy 69.7; Estimated Glomerular Filt Rate > 60
[2023-10-26] MEDS: Insulin Glargine,Hum.rec.anlog 100 UNIT/ML 10 ML VIAL 6 UNIT SUBCUT (08:55)
[2023-10-26] MEDS: Amphetamine Mixed Salts 10 MG TABLET 5 MG PO ×2 (09:00→17:41)
[2023-10-26] MEDS: polyethylene glycoL 3350 17 GM POWD.PACK PO (09:02)
[2023-10-26] MEDS: Nystatin Cream 15 GM TUBE 1 APPL TOPICAL ×2 (11:57→21:28)
--- NOTE | 2023-10-26 15:45 | P.PNPSI_ITS ---
Subjective Subjective Date of Service: 10/26/23 Reason For Visit: hallucinations confusion Subjective Notes: Conditional Voluntary Interim History: The nursing staff reported the patient had been compliant with treatment, the staff noticed that she was crying yesterday in the evening groups. On interview the patient denies new symptoms, waiting for placement she looks more awake and alert. Mental Status Exam Mental Status Exam Patient Appearance: Appropriate Patient Orientation: Person and Situation Level of Consciousness: Awake and Appropriate Patient Behavior: Guarded and Passive Mood Description: Withdrawn Affect Description: Constricted Patient Cognition Impaired: Yes Ability to Follow Directions: Good Speech Pattern: Clear Hallucinations: None Delusions: Not Present Thought Process: Distracted and Evasive Thought Content: positive for [place] and positive for Poverty of Content Judgement: Fair Diagnostics Vital Signs (24Hr): Vital Signs - 24 hr 10/25/23 18:00 10/26/23 08:00 Temperature 98.0 F 99.1 F Pulse Rate 74 66 Respiratory Rate 17 18 Blood Pressure 138/63 126/67 Pulse Oximetry 98 98 Oxygen Delivery Method Room Air Room Air BMI result Body Mass Index 27.1 Labs 09/04/23 07:52 10/26/23 08:14 Labs: Laboratory Results - last 48 hr 10/24/23 10/25/23 10/25/23 20:49 06:24 17:09 Creatinine Estim Creat Clear Calc Estimated GFR POC Glucose 190 H 141 H COVID-19 (DANIEL) Negative COVID-19 Clin Com See Note 10/25/23 10/26/23 10/26/23 19:58 06:04 08:14 Creatinine 0.80 Estim Creat Clear Calc 69.7 Estimated GFR > 60 POC Glucose 174 H 176 H COVID-19 (DANIEL) COVID-19 Clin Com Imaging Radiology Impressions: ITS Impressions Brain MRI 04/03/23 15:30 IMPRESSION: No acute infarct, mass lesion, intracranial hemorrhage, or evidence of hydrocephalus. Mild nonspecific T2/FLAIR hyperintensity in the cerebral white matter and danny presumably on the basis of chronic microangiopathy. Cervical Spine CT 07/03/23 20:12 IMPRESSION: No acute findings within the cervical spine. The cervical central canal is not well assessed on this CT due to artifact. If weakness persists, a cervical spine MRI would be more sensitive in assessment. Medications Medications Current Medications Acetaminophen (Acetaminophen 325 Mg Tablet) 650 mg PO Q6H PRN PRN Reason: Pain, Mild (Pain Scale 1-3) Last Admin: 10/25/23 21:12 Dose: 650 mg Amphetamine/Dextroamphetamine (Amphetamine Mixed Salts 10 Mg Tablet) 5 mg PO BID@0800,1700 [facility] Last Admin: 10/26/23 09:00 Dose: 5 mg Bisacodyl (Bisacodyl 5 Mg Tablet.Dr) 10 mg PO DAILY PRN PRN Reason: Constipation Last Admin: 10/13/23 23:19 Dose: 10 mg Docusate Sodium (Docusate Sodium 100 Mg Capsule) 100 mg PO BID [facility] Last Admin: 10/26/23 08:53 Dose: 100 mg Insulin Glargine (Insulin Glargine,Hum.Rec.Anlog 100 Unit/Ml 10 Ml Vial) 6 unit SUBCUT DAILY [facility] Last Admin: 10/26/23 08:55 Dose: 6 unit Magnesium Oxide (Magnesium Oxide 400 Mg Tablet) 400 mg PO BIDPC [facility] Last Admin: 10/26/23 08:54 Dose: 400 mg Memantine (Memantine Hcl 10 Mg Tablet) 10 mg PO BID [facility] Last Admin: 10/26/23 08:53 Dose: 10 mg Nystatin (Nystatin Cream 15 Gm Tube) 1 appl TOPICAL BID [facility]; Protocol Last Admin: 10/26/23 11:57 Dose: 1 appl Polyethylene Glycol (Polyethylene Glycol 3350 17 Gm Powd.Pack) 17 gm PO DAILY [facility] Last Admin: 10/26/23 09:02 Dose: 17 gm Senna (Sennosides 8.6 Mg Tablet) 17.2 mg PO BEDTIME [facility] Last Admin: 10/25/23 21:12 Dose: 17.2 mg Sertraline HCl (Sertraline Hcl 100 Mg Tablet) 200 mg PO DAILY [facility] Last Admin: 10/26/23 08:54 Dose: 200 mg Trazodone HCl (Trazodone Hcl 50 Mg Tablet) 50 mg PO BEDTIME MRX1 PRN PRN Reason: Sleep Last Admin: 10/25/23 21:12 Dose: 50 mg Allergies Allergies Allergy/AdvReac Type Severity Reaction Status Date / Time No Known Allergies Allergy Verified 03/23/23 18:13 Assessment & Plan Assessment & Plan (1) Alzheimer's dementia: Status: Acute Code(s): G30.9 - Alzheimer's disease, unspecified; F02.80 - Dementia in other diseases classified elsewhere, unspecified severity, without behavioral disturbance, psychotic disturbance, mood disturbance, and anxiety Assessment and Plan: August 24 58 years old woman with relative young age onset at Alzheimer dementia but overall clinical picture is affected by significant depression, which continues to be the predominant feature of for clinical picture. Conventional dementia medicines such as donepezil or memantine can be tried but usually do not make significant difference. I would suggest memantine 10 mg twice a day and donepezil 10 mg daily. Recently a new dementia at drug for Alzheimer was approved but only for relatively mild dementia or mild cognitive impairment type of patients. She would not qualify for that drug. 10/18 Patient sitting in chair in the day room, head leaning over to 1 side, resting. When asked how she is doing she says that she has diabetes and that she takes meds for that. She asks if administrative underwriter will be down here again. Staff reports no changes in behavior but seems to have more frequent lucid moments. Plan 1. Continue with other oral Zoloft and other psychotropics. 2. Waiting for placement Plan Plan continue with same treatment Reason for continued inpatient stay Substantial Risk for: inability to function, rapid decompensation and med/psych decompensation Time Spent With Patient Time: Total time managing care of this patient today _20___ minutes.
[2023-10-26 18:00] VITALS: BP 143/68; PULSE 80; RESP 18; TEMP 36.4; O2SAT 99
[2023-10-26 20:21] LABS: Glucose, Whole Blood 172 mg/dL (60-115)
[2023-10-26] MEDS: Sennosides 8.6 MG TABLET 17.2 MG PO (21:28)
[2023-10-26] MEDS: Acetaminophen 325 MG TABLET 650 MG PO (21:29)
[2023-10-26] MEDS: traZODone HCL 50 MG TABLET PO (21:29)
[2023-10-27 06:37] LABS: Glucose, Whole Blood 116 mg/dL (60-115)
[2023-10-27 07:43] VITALS: BP 153/69; PULSE 67; RESP 18; TEMP 36.5; O2SAT 98
[2023-10-27] MEDS: Sertraline HCL 100 MG TABLET 200 MG PO (08:55)
[2023-10-27] MEDS: Amphetamine Mixed Salts 10 MG TABLET 5 MG PO (08:55)
[2023-10-27] MEDS: polyethylene glycoL 3350 17 GM POWD.PACK PO (08:55)
[2023-10-27] MEDS: Docusate Sodium 100 MG CAPSULE PO ×2 (08:55→20:39)
[2023-10-27] MEDS: Magnesium Oxide 400 MG TABLET PO ×2 (08:55→17:06)
[2023-10-27] MEDS: Insulin Glargine,Hum.rec.anlog 100 UNIT/ML 10 ML VIAL 6 UNIT SUBCUT (08:58)
[2023-10-27] MEDS: Memantine HCl 10 MG TABLET PO ×2 (08:59→20:39)
[2023-10-27] MEDS: Nystatin Cream 15 GM TUBE 1 APPL TOPICAL ×2 (09:00→20:39)
[2023-10-27 11:30] LABS: COVID-19 Test Positive (Negative); IDNOW Serial# 58CA691E
[2023-10-27 18:00] VITALS: BP 131/62; PULSE 89; RESP 17; TEMP 37.2; O2SAT 95
[2023-10-27] MEDS: Sennosides 8.6 MG TABLET 17.2 MG PO (20:39)
[2023-10-27 20:51] LABS: Glucose, Whole Blood 205 mg/dL (60-115)
--- NOTE | 2023-10-27 23:20 | P.PNPSI_ITS ---
Subjective Subjective Date of Service: 10/27/23 Reason For Visit: hallucinations confusion Subjective Notes: Conditional Voluntary Interim History: Pt irritable, yelling. adderall held to decrease irritability now that she is covid positive. pt having difficulty staying in room isolating. afebrile. [id number]>95% no respiratory distress. Review of Systems Review of Systems Unremarkable Yes all other systems are reviewed and are negative and Unobtainable due to mental status Constitutional: Reports as per HPI, Denies chills, Denies fatigue, Denies fever(s) and Denies headache(s) Denies headache(s) Cardiovascular: Denies chest pain and Denies dyspnea Respiratory: Denies cough and Denies dyspnea Gastrointestinal: Denies abdominal pain, Denies constipation and Denies vomiting Denies headache(s) and Denies focal weakness Psychiatric: Denies auditory hallucinations, Reports hallucinations (Per the patient's daughter. Patient denies this), Denies tactile hallucinations and Denies suicidal ideation Endocrine: Denies fatigue Mental Status Exam Mental Status Exam Patient Appearance: Appropriate Patient Orientation: Person and Situation Level of Consciousness: Awake and Appropriate Patient Behavior: Guarded and Passive Behavior Comments: Eyes remain closed Mood Description: Withdrawn Affect Description: Constricted Patient Cognition Impaired: Yes Ability to Follow Directions: Good Speech Pattern: Clear Memory Description: Working Impaired Diagnostics Vital Signs (24Hr): Vital Signs - 24 hr 10/27/23 07:43 10/27/23 18:00 Temperature 97.7 F 98.9 F Pulse Rate 67 89 Respiratory Rate 18 17 Blood Pressure 153/69 H 131/62 Pulse Oximetry 98 95 Oxygen Delivery Method Room Air Room Air BMI result Body Mass Index 27.1 Labs 09/04/23 07:52 10/26/23 08:14 Labs: Laboratory Results - last 48 hr 10/26/23 10/26/23 10/26/23 06:04 08:14 20:13 Creatinine 0.80 Estim Creat Clear Calc 69.7 Estimated GFR > 60 POC Glucose 176 H 172 H COVID-19 (DANIEL) COVID-19 Clin Com 10/27/23 10/27/23 10/27/23 06:06 10:49 20:36 Creatinine Estim Creat Clear Calc Estimated GFR POC Glucose 116 H 205 H COVID-19 (DANIEL) Positive A COVID-19 Clin Com See Note Imaging Radiology Impressions: ITS Impressions Brain MRI 04/03/23 15:30 IMPRESSION: No acute infarct, mass lesion, intracranial hemorrhage, or evidence of hydrocephalus. Mild nonspecific T2/FLAIR hyperintensity in the cerebral white matter and danny presumably on the basis of chronic microangiopathy. Cervical Spine CT 07/03/23 20:12 IMPRESSION: No acute findings within the cervical spine. The cervical central canal is not well assessed on this CT due to artifact. If weakness persists, a cervical spine MRI would be more sensitive in assessment. Medications Medications Current Medications Acetaminophen (Acetaminophen 325 Mg Tablet) 650 mg PO Q6H PRN PRN Reason: Pain, Mild (Pain Scale 1-3) Last Admin: 10/26/23 21:29 Dose: 650 mg Amphetamine/Dextroamphetamine (Amphetamine Mixed Salts 10 Mg Tablet) 5 mg PO BID@0800,1700 [facility] Last Admin: 10/27/23 08:55 Dose: 5 mg Bisacodyl (Bisacodyl 5 Mg Tablet.Dr) 10 mg PO DAILY PRN PRN Reason: Constipation Last Admin: 10/13/23 23:19 Dose: 10 mg Docusate Sodium (Docusate Sodium 100 Mg Capsule) 100 mg PO BID [facility] Last Admin: 10/27/23 20:39 Dose: 100 mg Insulin Glargine (Insulin Glargine,Hum.Rec.Anlog 100 Unit/Ml 10 Ml Vial) 6 unit SUBCUT DAILY [facility] Last Admin: 10/27/23 08:58 Dose: 6 unit Magnesium Oxide (Magnesium Oxide 400 Mg Tablet) 400 mg PO BIDPC [facility] Last Admin: 10/27/23 17:06 Dose: 400 mg Memantine (Memantine Hcl 10 Mg Tablet) 10 mg PO BID [facility] Last Admin: 10/27/23 20:39 Dose: 10 mg Nystatin (Nystatin Cream 15 Gm Tube) 1 appl TOPICAL BID [facility]; Protocol Last Admin: 10/27/23 20:39 Dose: 1 appl Olanzapine (Olanzapine 2.5 Mg Tablet) 2.5 mg PO Q4H PRN PRN Reason: agitation Polyethylene Glycol (Polyethylene Glycol 3350 17 Gm Powd.Pack) 17 gm PO DAILY [facility] Last Admin: 10/27/23 08:55 Dose: 17 gm Senna (Sennosides 8.6 Mg Tablet) 17.2 mg PO BEDTIME [facility] Last Admin: 10/27/23 20:39 Dose: 17.2 mg Sertraline HCl (Sertraline Hcl 100 Mg Tablet) 200 mg PO DAILY [facility] Last Admin: 10/27/23 08:55 Dose: 200 mg Trazodone HCl (Trazodone Hcl 50 Mg Tablet) 50 mg PO BEDTIME MRX1 PRN PRN Reason: Sleep Last Admin: 10/26/23 21:29 Dose: 50 mg Allergies Allergies Allergy/AdvReac Type Severity Reaction Status Date / Time No Known Allergies Allergy Verified 03/23/23 18:13 Assessment & Plan Assessment & Plan (1) Alzheimer's dementia: Status: Acute Code(s): G30.9 - Alzheimer's disease, unspecified; F02.80 - Dementia in other diseases classified elsewhere, unspecified severity, without behavioral disturbance, psychotic disturbance, mood disturbance, and anxiety Assessment and Plan: August 24 58 years old woman with relative young age onset at Alzheimer dementia but overall clinical picture is affected by significant depression, which continues to be the predominant feature of for clinical picture. Conventional dementia medicines such as donepezil or memantine can be tried but usually do not make significant difference. I would suggest memantine 10 mg twice a day and donepezil 10 mg daily. Recently a new dementia at drug for Alzheimer was approved but only for relatively mild dementia or mild cognitive impairment type of patients. She would not qualify for that drug. 10/18 Patient sitting in chair in the day room, head leaning over to 1 side, resting. When asked how she is doing she says that she has diabetes and that she takes meds for that. She asks if ad copy writer will be down here again. Staff reports no changes in behavior but seems to have more frequent lucid moments. 10/27 continue tx. hold adderall due to increase irritability now that she is covid positive. Plan 1. Continue with other oral Zoloft and other psychotropics. 2. Waiting for placement Plan Plan continue with same treatment Reason for continued inpatient stay Substantial Risk for: inability to function Time Spent With Patient Time: Total time managing care of this patient today ____ minutes.
[2023-10-27] MEDS: traZODone HCL 50 MG TABLET PO (23:30)
[2023-10-27] MEDS: Acetaminophen 325 MG TABLET 650 MG PO (23:30)
[2023-10-28 06:28] LABS: Glucose, Whole Blood 146 mg/dL (60-115)
[2023-10-28] MEDS: Acetaminophen 325 MG TABLET 650 MG PO ×2 (06:46→20:47)
[2023-10-28 08:41] VITALS: BP 105/52; PULSE 72; RESP 16; TEMP 36.6; O2SAT 97
[2023-10-28] MEDS: Memantine HCl 10 MG TABLET PO ×2 (08:44→20:46)
[2023-10-28] MEDS: Sertraline HCL 100 MG TABLET 200 MG PO (08:44)
[2023-10-28] MEDS: Docusate Sodium 100 MG CAPSULE PO ×2 (08:44→20:46)
[2023-10-28] MEDS: Insulin Glargine,Hum.rec.anlog 100 UNIT/ML 10 ML VIAL 6 UNIT SUBCUT (08:45)
[2023-10-28] MEDS: Magnesium Oxide 400 MG TABLET PO ×2 (08:45→19:02)
[2023-10-28] MEDS: polyethylene glycoL 3350 17 GM POWD.PACK PO (08:46)
--- NOTE | 2023-10-28 10:38 | HO.PSYCHPN ---
Subjective Subjective Date of Service: 10/28/23 Reason For Visit: hallucinations confusion Interim History: calm, cooperative. COVID +, in [place]. redirectable back to her room. no requests or complaints. per staff no change in presentation. Mental Status Exam Mental Status Exam Patient Appearance: Appropriate Patient Orientation: Person and Situation Level of Consciousness: Awake and Appropriate Patient Behavior: Guarded and Passive Mood Description: Withdrawn Affect Description: Constricted Patient Cognition Impaired: Yes Ability to Follow Directions: Good Speech Pattern: Clear Hallucinations: None Delusions: Not Present Thought Process: Distracted and Evasive Thought Content: positive for [place] and positive for Poverty of Content Judgement: Fair Diagnostics Vital Signs (24Hr): Vital Signs - 24 hr 10/27/23 18:00 10/28/23 08:41 Temperature 98.9 F 97.9 F Pulse Rate 89 72 Respiratory Rate 17 16 Blood Pressure 131/62 105/52 L Pulse Oximetry 95 97 Oxygen Delivery Method Room Air Room Air BMI result Body Mass Index 27.1 Labs 09/04/23 07:52 10/26/23 08:14 Labs: Laboratory Results - last 48 hr 10/26/23 10/27/23 10/27/23 20:13 06:06 10:49 POC Glucose 172 H 116 H COVID-19 (DANIEL) Positive A COVID-19 Clin Com See Note 10/27/23 10/28/23 20:36 06:12 POC Glucose 205 H 146 H COVID-19 (DANIEL) COVID-19 Clin Com Imaging Radiology Impressions: ITS Impressions Brain MRI 04/03/23 15:30 IMPRESSION: No acute infarct, mass lesion, intracranial hemorrhage, or evidence of hydrocephalus. Mild nonspecific T2/FLAIR hyperintensity in the cerebral white matter and danny presumably on the basis of chronic microangiopathy. Cervical Spine CT 07/03/23 20:12 IMPRESSION: No acute findings within the cervical spine. The cervical central canal is not well assessed on this CT due to artifact. If weakness persists, a cervical spine MRI would be more sensitive in assessment. Medications Medications Current Medications Acetaminophen (Acetaminophen 325 Mg Tablet) 650 mg PO Q6H PRN PRN Reason: Pain, Mild (Pain Scale 1-3) Last Admin: 10/28/23 06:46 Dose: 650 mg Amphetamine/Dextroamphetamine (Amphetamine Mixed Salts 10 Mg Tablet) 5 mg PO BID@0800,1700 [facility] Last Admin: 10/27/23 08:55 Dose: 5 mg Bisacodyl (Bisacodyl 5 Mg Tablet.Dr) 10 mg PO DAILY PRN PRN Reason: Constipation Last Admin: 10/13/23 23:19 Dose: 10 mg Docusate Sodium (Docusate Sodium 100 Mg Capsule) 100 mg PO BID [facility] Last Admin: 10/28/23 08:44 Dose: 100 mg Insulin Glargine (Insulin Glargine,Hum.Rec.Anlog 100 Unit/Ml 10 Ml Vial) 6 unit SUBCUT DAILY [facility] Last Admin: 10/28/23 08:45 Dose: 6 unit Magnesium Oxide (Magnesium Oxide 400 Mg Tablet) 400 mg PO BIDPC [facility] Last Admin: 10/28/23 08:45 Dose: 400 mg Memantine (Memantine Hcl 10 Mg Tablet) 10 mg PO BID [facility] Last Admin: 10/28/23 08:44 Dose: 10 mg Nystatin (Nystatin Cream 15 Gm Tube) 1 appl TOPICAL BID [facility]; Protocol Last Admin: 10/27/23 20:39 Dose: 1 appl Olanzapine (Olanzapine 2.5 Mg Tablet) 2.5 mg PO Q4H PRN PRN Reason: agitation Polyethylene Glycol (Polyethylene Glycol 3350 17 Gm Powd.Pack) 17 gm PO DAILY [facility] Last Admin: 10/28/23 08:46 Dose: 17 gm Senna (Sennosides 8.6 Mg Tablet) 17.2 mg PO BEDTIME [facility] Last Admin: 10/27/23 20:39 Dose: 17.2 mg Sertraline HCl (Sertraline Hcl 100 Mg Tablet) 200 mg PO DAILY [facility] Last Admin: 10/28/23 08:44 Dose: 200 mg Trazodone HCl (Trazodone Hcl 50 Mg Tablet) 50 mg PO BEDTIME MRX1 PRN PRN Reason: Sleep Last Admin: 10/27/23 23:30 Dose: 50 mg Allergies Allergies Allergy/AdvReac Type Severity Reaction Status Date / Time No Known Allergies Allergy Verified 03/23/23 18:13 Assessment & Plan Assessment & Plan (1) Alzheimer's dementia: Status: Acute Code(s): G30.9 - Alzheimer's disease, unspecified; F02.80 - Dementia in other diseases classified elsewhere, unspecified severity, without behavioral disturbance, psychotic disturbance, mood disturbance, and anxiety Assessment and Plan: August 24 58 years old woman with relative young age onset at Alzheimer dementia but overall clinical picture is affected by significant depression, which continues to be the predominant feature of for clinical picture. Conventional dementia medicines such as donepezil or memantine can be tried but usually do not make significant difference. I would suggest memantine 10 mg twice a day and donepezil 10 mg daily. Recently a new dementia at drug for Alzheimer was approved but only for relatively mild dementia or mild cognitive impairment type of patients. She would not qualify for that drug. 10/18 Patient sitting in chair in the day room, head leaning over to 1 side, resting. When asked how she is doing she says that she has diabetes and that she takes meds for that. She asks if underwriter mortgage loan will be down here again. Staff reports no changes in behavior but seems to have more frequent lucid moments. Plan 1. Continue with other oral Zoloft and other psychotropics. 2. Waiting for placement 10/28: COVID +. poverty of thought. redirectable back to her room. no change. continue current mgmt. Plan Plan continue with same treatment Reason for continued inpatient stay Substantial Risk for: inability to function and rapid decompensation Time Spent With Patient Time: Total time managing care of this patient today ____ minutes.
[2023-10-28 13:00] VITALS: BP 122/70; PULSE 73; RESP 15; TEMP 37; O2SAT 97
[2023-10-28 18:00] VITALS: BP 128/61; PULSE 71; RESP 18; TEMP 37.3; O2SAT 96
[2023-10-28] MEDS: Nystatin Cream 15 GM TUBE 1 APPL TOPICAL (20:46)
[2023-10-28] MEDS: Sennosides 8.6 MG TABLET 17.2 MG PO (20:47)
[2023-10-28] MEDS: traZODone HCL 50 MG TABLET PO (20:47)
[2023-10-28 21:33] LABS: Glucose, Whole Blood 181 mg/dL (60-115)
[2023-10-29] MEDS: OLANZapine 2.5 MG TABLET PO ×2 (00:01→21:25)
[2023-10-29 06:24] LABS: Glucose, Whole Blood 155 mg/dL (60-115)
[2023-10-29 08:25] VITALS: BP 129/64; PULSE 84; RESP 15; TEMP 37.2; O2SAT 94
[2023-10-29] MEDS: polyethylene glycoL 3350 17 GM POWD.PACK PO (08:27)
[2023-10-29] MEDS: Docusate Sodium 100 MG CAPSULE PO ×2 (08:28→21:04)
[2023-10-29] MEDS: Magnesium Oxide 400 MG TABLET PO ×2 (08:28→18:02)
[2023-10-29] MEDS: Sertraline HCL 100 MG TABLET 200 MG PO (08:28)
[2023-10-29] MEDS: Memantine HCl 10 MG TABLET PO ×2 (08:28→21:04)
[2023-10-29] MEDS: Insulin Glargine,Hum.rec.anlog 100 UNIT/ML 10 ML VIAL 6 UNIT SUBCUT (08:32)
[2023-10-29] MEDS: Nystatin Cream 15 GM TUBE 1 APPL TOPICAL ×2 (08:33→21:03)
[2023-10-29] MEDS: guaiFENesin LA 600 MG TAB.ER.12H PO ×2 (09:29→22:08)
[2023-10-29] MEDS: Acetaminophen 325 MG TABLET 650 MG PO (09:29)
--- NOTE | 2023-10-29 10:45 | HO.PSYCHPN ---
Subjective Subjective Date of Service: 10/29/23 Reason For Visit: hallucinations confusion Interim History: feeling terrible from COVID Sx. raspy voice, sounds congested. no other complaints. per staff, COVID +, symptomatic. VS OK. slept well. FSBS 155. Mental Status Exam Mental Status Exam Patient Appearance: Appropriate Patient Orientation: Person and Situation Level of Consciousness: Awake and Appropriate Patient Behavior: Guarded and Passive Mood Description: Withdrawn Affect Description: Constricted Patient Cognition Impaired: Yes Ability to Follow Directions: Good Speech Pattern: Clear Hallucinations: None Delusions: Not Present Thought Process: Distracted and Evasive Thought Content: positive for [place] and positive for Poverty of Content Judgement: Fair Diagnostics Vital Signs (24Hr): Vital Signs - 24 hr 10/28/23 13:00 10/28/23 18:00 10/29/23 08:25 Temperature 98.6 F 99.2 F 98.9 F Pulse Rate 73 71 84 Respiratory Rate 15 18 15 Blood Pressure 122/70 128/61 129/64 Pulse Oximetry 97 96 94 Oxygen Delivery Method Room Air Room Air Room Air BMI result Body Mass Index 27.1 Labs 09/04/23 07:52 10/26/23 08:14 Labs: Laboratory Results - last 48 hr 10/27/23 10/27/23 10/28/23 10:49 20:36 06:12 POC Glucose 205 H 146 H COVID-19 (DANIEL) Positive A COVID-19 Clin Com See Note 10/28/23 10/29/23 20:44 06:17 POC Glucose 181 H 155 H COVID-19 (DANIEL) COVID-19 Clin Com Imaging Radiology Impressions: ITS Impressions Brain MRI 04/03/23 15:30 IMPRESSION: No acute infarct, mass lesion, intracranial hemorrhage, or evidence of hydrocephalus. Mild nonspecific T2/FLAIR hyperintensity in the cerebral white matter and danny presumably on the basis of chronic microangiopathy. Cervical Spine CT 07/03/23 20:12 IMPRESSION: No acute findings within the cervical spine. The cervical central canal is not well assessed on this CT due to artifact. If weakness persists, a cervical spine MRI would be more sensitive in assessment. Medications Medications Current Medications Acetaminophen (Acetaminophen 325 Mg Tablet) 650 mg PO Q6H PRN PRN Reason: Pain, Mild (Pain Scale 1-3) Last Admin: 10/29/23 09:29 Dose: 650 mg Amphetamine/Dextroamphetamine (Amphetamine Mixed Salts 10 Mg Tablet) 5 mg PO BID@0800,1700 [facility] Last Admin: 10/27/23 08:55 Dose: 5 mg Bisacodyl (Bisacodyl 5 Mg Tablet.Dr) 10 mg PO DAILY PRN PRN Reason: Constipation Last Admin: 10/13/23 23:19 Dose: 10 mg Docusate Sodium (Docusate Sodium 100 Mg Capsule) 100 mg PO BID [facility] Last Admin: 10/29/23 08:28 Dose: 100 mg Guaifenesin (Guaifenesin La 600 Mg Tab.Er.12h) 600 mg PO BID PRN PRN Reason: Cough Last Admin: 10/29/23 09:29 Dose: 600 mg Insulin Glargine (Insulin Glargine,Hum.Rec.Anlog 100 Unit/Ml 10 Ml Vial) 6 unit SUBCUT DAILY [facility] Last Admin: 10/29/23 08:32 Dose: 6 unit Magnesium Oxide (Magnesium Oxide 400 Mg Tablet) 400 mg PO BIDPC [facility] Last Admin: 10/29/23 08:28 Dose: 400 mg Memantine (Memantine Hcl 10 Mg Tablet) 10 mg PO BID [facility] Last Admin: 10/29/23 08:28 Dose: 10 mg Nystatin (Nystatin Cream 15 Gm Tube) 1 appl TOPICAL BID [facility]; Protocol Last Admin: 10/29/23 08:33 Dose: 1 appl Olanzapine (Olanzapine 2.5 Mg Tablet) 2.5 mg PO Q4H PRN PRN Reason: agitation Last Admin: 10/29/23 00:01 Dose: 2.5 mg Polyethylene Glycol (Polyethylene Glycol 3350 17 Gm Powd.Pack) 17 gm PO DAILY [facility] Last Admin: 10/29/23 08:27 Dose: 17 gm Senna (Sennosides 8.6 Mg Tablet) 17.2 mg PO BEDTIME [facility] Last Admin: 10/28/23 20:47 Dose: 17.2 mg Sertraline HCl (Sertraline Hcl 100 Mg Tablet) 200 mg PO DAILY [facility] Last Admin: 10/29/23 08:28 Dose: 200 mg Trazodone HCl (Trazodone Hcl 50 Mg Tablet) 50 mg PO BEDTIME MRX1 PRN PRN Reason: Sleep Last Admin: 10/29/23 00:00 Dose: 50 mg Allergies Allergies Allergy/AdvReac Type Severity Reaction Status Date / Time No Known Allergies Allergy Verified 03/23/23 18:13 Assessment & Plan Assessment & Plan (1) Alzheimer's dementia: Status: Acute Code(s): G30.9 - Alzheimer's disease, unspecified; F02.80 - Dementia in other diseases classified elsewhere, unspecified severity, without behavioral disturbance, psychotic disturbance, mood disturbance, and anxiety Assessment and Plan: August 24 58 years old woman with relative young age onset at Alzheimer dementia but overall clinical picture is affected by significant depression, which continues to be the predominant feature of for clinical picture. Conventional dementia medicines such as donepezil or memantine can be tried but usually do not make significant difference. I would suggest memantine 10 mg twice a day and donepezil 10 mg daily. Recently a new dementia at drug for Alzheimer was approved but only for relatively mild dementia or mild cognitive impairment type of patients. She would not qualify for that drug. 10/18 Patient sitting in chair in the day room, head leaning over to 1 side, resting. When asked how she is doing she says that she has diabetes and that she takes meds for that. She asks if auto service writer will be down here again. Staff reports no changes in behavior but seems to have more frequent lucid moments. 10/27 continue tx. hold adderall due to increase irritability now that she is covid positive. 10/29: symptomatic of COVID - URI Sx. VSS. no change in mental health presentation. continue current mgmt. Plan 1. Continue with other oral Zoloft and other psychotropics. 2. Waiting for placement Plan Plan continue with same treatment Reason for continued inpatient stay Substantial Risk for: inability to function Time Spent With Patient Time: Total time managing care of this patient today ____ minutes.
[2023-10-29 18:00] VITALS: BP 122/64; PULSE 73; RESP 16; TEMP 36.2; O2SAT 100
[2023-10-29 20:12] LABS: Glucose, Whole Blood 132 mg/dL (60-115)
[2023-10-29] MEDS: Sennosides 8.6 MG TABLET 17.2 MG PO (21:04)
[2023-10-29] MEDS: traZODone HCL 50 MG TABLET PO ×3 (21:25→22:36)
[2023-10-30 06:00] VITALS: BP 131/86; PULSE 84; RESP 18; TEMP 37.6; O2SAT 96
[2023-10-30 06:22] LABS: Glucose, Whole Blood 136 mg/dL (60-115)
[2023-10-30] MEDS: Magnesium Oxide 400 MG TABLET PO ×2 (08:50→16:15)
[2023-10-30] MEDS: Memantine HCl 10 MG TABLET PO ×2 (08:50→20:43)
[2023-10-30] MEDS: Sertraline HCL 100 MG TABLET 200 MG PO (08:51)
[2023-10-30] MEDS: Insulin Glargine,Hum.rec.anlog 100 UNIT/ML 10 ML VIAL 6 UNIT SUBCUT (08:51)
[2023-10-30] MEDS: Docusate Sodium 100 MG CAPSULE PO ×2 (08:51→20:43)
--- NOTE | 2023-10-30 11:33 | HO.PSYCHPN ---
Subjective Subjective Date of Service: 10/30/23 Reason For Visit: hallucinations confusion Interim History: in bed, appears fatigued, monosyllabic responses, minimal. no complaints. COVID-symptomatic. per staff, physically unwell, otherwise no change. Mental Status Exam Mental Status Exam Patient Appearance: Appropriate Patient Orientation: Person and Situation Level of Consciousness: Awake and Appropriate Patient Behavior: Guarded and Passive Mood Description: Withdrawn Affect Description: Constricted Patient Cognition Impaired: Yes Ability to Follow Directions: Good Speech Pattern: Clear Hallucinations: None Delusions: Not Present Thought Process: Distracted and Evasive Thought Content: positive for [place] and positive for Poverty of Content Judgement: Fair Diagnostics Vital Signs (24Hr): Vital Signs - 24 hr 10/29/23 18:00 10/30/23 06:00 Temperature 97.1 F 37.6 F L Pulse Rate 73 84 Respiratory Rate 16 18 Blood Pressure 122/64 131/86 Pulse Oximetry 100 96 Oxygen Delivery Method Room Air Room Air BMI result Body Mass Index 27.1 Labs 09/04/23 07:52 10/26/23 08:14 Labs: Laboratory Results - last 48 hr 10/28/23 10/29/23 10/29/23 20:44 06:17 20:08 POC Glucose 181 H 155 H 132 H 10/30/23 06:05 POC Glucose 136 H Imaging Radiology Impressions: ITS Impressions Brain MRI 04/03/23 15:30 IMPRESSION: No acute infarct, mass lesion, intracranial hemorrhage, or evidence of hydrocephalus. Mild nonspecific T2/FLAIR hyperintensity in the cerebral white matter and danny presumably on the basis of chronic microangiopathy. Cervical Spine CT 07/03/23 20:12 IMPRESSION: No acute findings within the cervical spine. The cervical central canal is not well assessed on this CT due to artifact. If weakness persists, a cervical spine MRI would be more sensitive in assessment. Medications Medications Current Medications Acetaminophen (Acetaminophen 325 Mg Tablet) 650 mg PO Q6H PRN PRN Reason: Pain, Mild (Pain Scale 1-3) Last Admin: 10/29/23 09:29 Dose: 650 mg Amphetamine/Dextroamphetamine (Amphetamine Mixed Salts 10 Mg Tablet) 5 mg PO BID@0800,1700 [facility] Last Admin: 10/27/23 08:55 Dose: 5 mg Bisacodyl (Bisacodyl 5 Mg Tablet.Dr) 10 mg PO DAILY PRN PRN Reason: Constipation Last Admin: 10/13/23 23:19 Dose: 10 mg Docusate Sodium (Docusate Sodium 100 Mg Capsule) 100 mg PO BID [facility] Last Admin: 10/30/23 08:51 Dose: 100 mg Guaifenesin (Guaifenesin La 600 Mg Tab.Er.12h) 600 mg PO BID PRN PRN Reason: Cough Last Admin: 10/29/23 22:08 Dose: 600 mg Insulin Glargine (Insulin Glargine,Hum.Rec.Anlog 100 Unit/Ml 10 Ml Vial) 6 unit SUBCUT DAILY [facility] Last Admin: 10/30/23 08:51 Dose: 6 unit Magnesium Oxide (Magnesium Oxide 400 Mg Tablet) 400 mg PO BIDPC [facility] Last Admin: 10/30/23 08:50 Dose: 400 mg Memantine (Memantine Hcl 10 Mg Tablet) 10 mg PO BID [facility] Last Admin: 10/30/23 08:50 Dose: 10 mg Nystatin (Nystatin Cream 15 Gm Tube) 1 appl TOPICAL BID [facility]; Protocol Last Admin: 10/29/23 21:03 Dose: 1 appl Olanzapine (Olanzapine 2.5 Mg Tablet) 2.5 mg PO Q4H PRN PRN Reason: agitation Last Admin: 10/29/23 21:25 Dose: 2.5 mg Polyethylene Glycol (Polyethylene Glycol 3350 17 Gm Powd.Pack) 17 gm PO DAILY [facility] Last Admin: 10/30/23 09:03 Dose: Not Given Senna (Sennosides 8.6 Mg Tablet) 17.2 mg PO BEDTIME [facility] Last Admin: 10/29/23 21:04 Dose: 17.2 mg Sertraline HCl (Sertraline Hcl 100 Mg Tablet) 200 mg PO DAILY [facility] Last Admin: 10/30/23 08:51 Dose: 200 mg Trazodone HCl (Trazodone Hcl 50 Mg Tablet) 50 mg PO BEDTIME MRX1 PRN PRN Reason: Sleep Last Admin: 10/29/23 22:36 Dose: 50 mg Allergies Allergies Allergy/AdvReac Type Severity Reaction Status Date / Time No Known Allergies Allergy Verified 03/23/23 18:13 Assessment & Plan Assessment & Plan (1) Alzheimer's dementia: Status: Acute Code(s): G30.9 - Alzheimer's disease, unspecified; F02.80 - Dementia in other diseases classified elsewhere, unspecified severity, without behavioral disturbance, psychotic disturbance, mood disturbance, and anxiety Assessment and Plan: August 24 58 years old woman with relative young age onset at Alzheimer dementia but overall clinical picture is affected by significant depression, which continues to be the predominant feature of for clinical picture. Conventional dementia medicines such as donepezil or memantine can be tried but usually do not make significant difference. I would suggest memantine 10 mg twice a day and donepezil 10 mg daily. Recently a new dementia at drug for Alzheimer was approved but only for relatively mild dementia or mild cognitive impairment type of patients. She would not qualify for that drug. 10/18 Patient sitting in chair in the day room, head leaning over to 1 side, resting. When asked how she is doing she says that she has diabetes and that she takes meds for that. She asks if insurance underwriter sales will be down here again. Staff reports no changes in behavior but seems to have more frequent lucid moments. 10/27 continue tx. hold adderall due to increase irritability now that she is covid positive. 10/29: symptomatic of COVID - URI Sx. VSS. no change in mental health presentation. continue current mgmt. 10/30: continues laid low by COVID. psych presentation essentially unchanged. continue current mgmt, monitor VS. Plan 1. Continue with other oral Zoloft and other psychotropics. 2. Waiting for placement Plan Plan continue with same treatment Reason for continued inpatient stay Substantial Risk for: inability to function Time Spent With Patient Time: Total time managing care of this patient today ____ minutes.
[2023-10-30] MEDS: guaiFENesin LA 600 MG TAB.ER.12H PO (16:15)
[2023-10-30 18:00] VITALS: BP 101/70; PULSE 78; RESP 16; TEMP 36.3; O2SAT 98
[2023-10-30 20:32] LABS: Glucose, Whole Blood 202 mg/dL (60-115)
[2023-10-30] MEDS: Sennosides 8.6 MG TABLET 17.2 MG PO (20:43)
[2023-10-30] MEDS: traZODone HCL 50 MG TABLET PO (20:43)
[2023-10-30] MEDS: Nystatin Cream 15 GM TUBE 1 APPL TOPICAL (20:44)
[2023-10-31 06:00] VITALS: BP 105/71; PULSE 66; RESP 16; TEMP 36.7; O2SAT 96
[2023-10-31 07:53] LABS: Glucose, Whole Blood 126 mg/dL (60-115)
--- NOTE | 2023-10-31 09:34 | HO.PSYCHPN ---
Subjective Subjective Date of Service: 10/31/23 Reason For Visit: hallucinations confusion Subjective Notes: Conditional Voluntary Interim History: Pt slept most of the night. VS stable, 2sat>96 on RA. No s/s of respiratory distress. Pt mostly in bed, resting denies any concern. taking meds as prescribed. Review of Systems Review of Systems Unremarkable Yes all other systems are reviewed and are negative and Unobtainable due to mental status Constitutional: Reports as per HPI, Denies chills, Denies fatigue, Denies fever(s) and Denies headache(s) Denies headache(s) Cardiovascular: Denies chest pain and Denies dyspnea Respiratory: Denies cough and Denies dyspnea Gastrointestinal: Denies abdominal pain, Denies constipation and Denies vomiting Denies headache(s) and Denies focal weakness Psychiatric: Denies auditory hallucinations, Reports hallucinations (Per the patient's daughter. Patient denies this), Denies tactile hallucinations and Denies suicidal ideation Endocrine: Denies fatigue Mental Status Exam Mental Status Exam Patient Appearance: Appropriate Patient Orientation: Person and Situation Level of Consciousness: Awake and Appropriate Patient Behavior: Guarded and Passive Behavior Comments: Eyes remain closed Mood Description: Withdrawn Affect Description: Constricted Patient Cognition Impaired: Yes Ability to Follow Directions: Good Speech Pattern: Clear Memory Description: Working Impaired Diagnostics Vital Signs (24Hr): Vital Signs - 24 hr 10/30/23 18:00 10/31/23 06:00 Temperature 97.4 F 98.1 F Pulse Rate 78 66 Respiratory Rate 16 16 Blood Pressure 101/70 105/71 Pulse Oximetry 98 96 Oxygen Delivery Method Room Air Room Air BMI result Body Mass Index 27.1 Labs 09/04/23 07:52 10/26/23 08:14 Labs: Laboratory Results - last 48 hr 10/29/23 10/30/23 10/30/23 20:08 06:05 19:52 POC Glucose 132 H 136 H 202 H 10/31/23 06:14 POC Glucose 126 H Imaging Radiology Impressions: ITS Impressions Brain MRI 04/03/23 15:30 IMPRESSION: No acute infarct, mass lesion, intracranial hemorrhage, or evidence of hydrocephalus. Mild nonspecific T2/FLAIR hyperintensity in the cerebral white matter and danny presumably on the basis of chronic microangiopathy. Cervical Spine CT 07/03/23 20:12 IMPRESSION: No acute findings within the cervical spine. The cervical central canal is not well assessed on this CT due to artifact. If weakness persists, a cervical spine MRI would be more sensitive in assessment. Medications Medications Current Medications Acetaminophen (Acetaminophen 325 Mg Tablet) 650 mg PO Q6H PRN PRN Reason: Pain, Mild (Pain Scale 1-3) Last Admin: 10/29/23 09:29 Dose: 650 mg Amphetamine/Dextroamphetamine (Amphetamine Mixed Salts 10 Mg Tablet) 5 mg PO BID@0800,1700 [facility] Last Admin: 10/27/23 08:55 Dose: 5 mg Bisacodyl (Bisacodyl 5 Mg Tablet.Dr) 10 mg PO DAILY PRN PRN Reason: Constipation Last Admin: 10/13/23 23:19 Dose: 10 mg Docusate Sodium (Docusate Sodium 100 Mg Capsule) 100 mg PO BID [facility] Last Admin: 10/30/23 20:43 Dose: 100 mg Guaifenesin (Guaifenesin La 600 Mg Tab.Er.12h) 600 mg PO BID PRN PRN Reason: Cough Last Admin: 10/30/23 16:15 Dose: 600 mg Insulin Glargine (Insulin Glargine,Hum.Rec.Anlog 100 Unit/Ml 10 Ml Vial) 6 unit SUBCUT DAILY [facility] Last Admin: 10/30/23 08:51 Dose: 6 unit Magnesium Oxide (Magnesium Oxide 400 Mg Tablet) 400 mg PO BIDPC [facility] Last Admin: 10/30/23 16:15 Dose: 400 mg Memantine (Memantine Hcl 10 Mg Tablet) 10 mg PO BID [facility] Last Admin: 10/30/23 20:43 Dose: 10 mg Nystatin (Nystatin Cream 15 Gm Tube) 1 appl TOPICAL BID [facility]; Protocol Last Admin: 10/30/23 20:44 Dose: 1 appl Olanzapine (Olanzapine 2.5 Mg Tablet) 2.5 mg PO Q4H PRN PRN Reason: agitation Last Admin: 10/29/23 21:25 Dose: 2.5 mg Polyethylene Glycol (Polyethylene Glycol 3350 17 Gm Powd.Pack) 17 gm PO DAILY [facility] Last Admin: 10/30/23 09:03 Dose: Not Given Senna (Sennosides 8.6 Mg Tablet) 17.2 mg PO BEDTIME [facility] Last Admin: 10/30/23 20:43 Dose: 17.2 mg Sertraline HCl (Sertraline Hcl 100 Mg Tablet) 200 mg PO DAILY [facility] Last Admin: 10/30/23 08:51 Dose: 200 mg Trazodone HCl (Trazodone Hcl 50 Mg Tablet) 50 mg PO BEDTIME MRX1 PRN PRN Reason: Sleep Last Admin: 10/30/23 20:43 Dose: 50 mg Allergies Allergies Allergy/AdvReac Type Severity Reaction Status Date / Time No Known Allergies Allergy Verified 03/23/23 18:13 Assessment & Plan Assessment & Plan (1) Alzheimer's dementia: Status: Acute Code(s): G30.9 - Alzheimer's disease, unspecified; F02.80 - Dementia in other diseases classified elsewhere, unspecified severity, without behavioral disturbance, psychotic disturbance, mood disturbance, and anxiety Assessment and Plan: August 24 58 years old woman with relative young age onset at Alzheimer dementia but overall clinical picture is affected by significant depression, which continues to be the predominant feature of for clinical picture. Conventional dementia medicines such as donepezil or memantine can be tried but usually do not make significant difference. I would suggest memantine 10 mg twice a day and donepezil 10 mg daily. Recently a new dementia at drug for Alzheimer was approved but only for relatively mild dementia or mild cognitive impairment type of patients. She would not qualify for that drug. 10/18 Patient sitting in chair in the day room, head leaning over to 1 side, resting. When asked how she is doing she says that she has diabetes and that she takes meds for that. She asks if sign writer letterer or painter will be down here again. Staff reports no changes in behavior but seems to have more frequent lucid moments. 10/27 continue tx. hold adderall due to increase irritability now that she is covid positive. 10/29: symptomatic of COVID - URI Sx. VSS. no change in mental health presentation. continue current mgmt. 10/30: continues laid low by COVID. psych presentation essentially unchanged. continue current mgmt, monitor VS. 10/31 continue tx. Plan 1. Continue with other oral Zoloft and other psychotropics. 2. Waiting for placement Plan Plan continue with same treatment Reason for continued inpatient stay Substantial Risk for: inability to function Time Spent With Patient Time: Total time managing care of this patient today ____ minutes.
[2023-10-31] MEDS: Magnesium Oxide 400 MG TABLET PO ×2 (10:04→16:50)
[2023-10-31] MEDS: Docusate Sodium 100 MG CAPSULE PO ×2 (10:04→21:18)
[2023-10-31] MEDS: Insulin Glargine,Hum.rec.anlog 100 UNIT/ML 10 ML VIAL 6 UNIT SUBCUT (10:05)
[2023-10-31] MEDS: Memantine HCl 10 MG TABLET PO ×2 (10:05→21:18)
[2023-10-31] MEDS: Sertraline HCL 100 MG TABLET 200 MG PO (10:05)
[2023-10-31] MEDS: polyethylene glycoL 3350 17 GM POWD.PACK PO (10:07)
[2023-10-31] MEDS: Nystatin Cream 15 GM TUBE 1 APPL TOPICAL ×2 (10:07→22:28)
[2023-10-31 18:00] VITALS: BP 118/55; PULSE 75; RESP 16; TEMP 37.6; O2SAT 97
[2023-10-31] MEDS: guaiFENesin LA 600 MG TAB.ER.12H PO ×2 (19:32→22:28)
[2023-10-31 20:30] LABS: Glucose, Whole Blood 174 mg/dL (60-115)
[2023-10-31] MEDS: traZODone HCL 50 MG TABLET PO (21:18)
[2023-10-31] MEDS: Acetaminophen 325 MG TABLET 650 MG PO (21:18)
[2023-10-31] MEDS: Sennosides 8.6 MG TABLET 17.2 MG PO (21:19)
[2023-11-01] MEDS: traZODone HCL 50 MG TABLET PO ×3 (01:33→22:56)
[2023-11-01 06:15] LABS: Glucose, Whole Blood 122 mg/dL (60-115)
[2023-11-01 07:45] VITALS: BP 123/68; PULSE 64; RESP 18; TEMP 36.7; O2SAT 98
[2023-11-01] MEDS: polyethylene glycoL 3350 17 GM POWD.PACK PO (08:17)
[2023-11-01] MEDS: Insulin Glargine,Hum.rec.anlog 100 UNIT/ML 10 ML VIAL 6 UNIT SUBCUT (08:17)
[2023-11-01] MEDS: Sertraline HCL 100 MG TABLET 200 MG PO (08:17)
[2023-11-01] MEDS: Magnesium Oxide 400 MG TABLET PO ×2 (08:17→19:03)
[2023-11-01] MEDS: Memantine HCl 10 MG TABLET PO ×2 (08:17→21:03)
[2023-11-01] MEDS: Docusate Sodium 100 MG CAPSULE PO ×2 (08:17→21:03)
[2023-11-01] MEDS: Nystatin Cream 15 GM TUBE 1 APPL TOPICAL ×2 (08:38→21:03)
[2023-11-01 16:19] LABS: COVID-19 Test Positive (Negative); IDNOW Serial# BCCEAD1C
--- NOTE | 2023-11-01 16:19 | P.PNPSI_ITS ---
Subjective Subjective Date of Service: 11/01/23 Reason For Visit: hallucinations confusion Subjective Notes: Conditional Voluntary Interim History: The nursing staff reported no changes in her mental status fully compliant with treatment. On interview the patient denies new symptoms compliant with treatment, waiting for placement. Mental Status Exam Mental Status Exam Patient Appearance: Well Grooomed and Appropriate Patient Orientation: Person and Situation Level of Consciousness: Awake and Appropriate Patient Behavior: Guarded and Passive Mood Description: Withdrawn Affect Description: Constricted Patient Cognition Impaired: Yes Ability to Follow Directions: Good Speech Pattern: Clear Hallucinations: None Delusions: Not Present Thought Process: Distracted and Slowed Thinking Thought Content: positive for [place] and positive for Poverty of Content Judgement: Poor Diagnostics Vital Signs (24Hr): Vital Signs - 24 hr 10/31/23 18:00 11/01/23 07:45 Temperature 99.7 F 98.1 F Pulse Rate 75 64 Respiratory Rate 16 18 Blood Pressure 118/55 L 123/68 Pulse Oximetry 97 98 Oxygen Delivery Method Room Air BMI result Body Mass Index 27.1 Labs 09/04/23 07:52 10/26/23 08:14 Labs: Laboratory Results - last 48 hr 10/30/23 10/31/23 10/31/23 19:52 06:14 20:24 POC Glucose 202 H 126 H 174 H COVID-19 ([facility]) COVID-19 Clin Com 11/01/23 11/01/23 05:59 15:35 POC Glucose 122 H COVID-19 ([facility]) Positive A COVID-19 Clin Com See Note Imaging Radiology Impressions: ITS Impressions Brain MRI 04/03/23 15:30 IMPRESSION: No acute infarct, mass lesion, intracranial hemorrhage, or evidence of hydrocephalus. Mild nonspecific T2/FLAIR hyperintensity in the cerebral white matter and danny presumably on the basis of chronic microangiopathy. Cervical Spine CT 07/03/23 20:12 IMPRESSION: No acute findings within the cervical spine. The cervical central canal is not well assessed on this CT due to artifact. If weakness persists, a cervical spine MRI would be more sensitive in assessment. Medications Medications Current Medications Acetaminophen (Acetaminophen 325 Mg Tablet) 650 mg PO Q6H PRN PRN Reason: Pain, Mild (Pain Scale 1-3) Last Admin: 10/31/23 21:18 Dose: 650 mg Amphetamine/Dextroamphetamine (Amphetamine Mixed Salts 10 Mg Tablet) 5 mg PO BID@0800,1700 [facility] Last Admin: 10/27/23 08:55 Dose: 5 mg Bisacodyl (Bisacodyl 5 Mg Tablet.Dr) 10 mg PO DAILY PRN PRN Reason: Constipation Last Admin: 10/13/23 23:19 Dose: 10 mg Docusate Sodium (Docusate Sodium 100 Mg Capsule) 100 mg PO BID [facility] Last Admin: 11/01/23 08:17 Dose: 100 mg Guaifenesin (Guaifenesin La 600 Mg Tab.Er.12h) 600 mg PO BID PRN PRN Reason: Cough Last Admin: 10/31/23 22:28 Dose: 600 mg Insulin Glargine (Insulin Glargine,Hum.Rec.Anlog 100 Unit/Ml 10 Ml Vial) 6 unit SUBCUT DAILY [facility] Last Admin: 11/01/23 08:17 Dose: 6 unit Magnesium Oxide (Magnesium Oxide 400 Mg Tablet) 400 mg PO BIDPC [facility] Last Admin: 11/01/23 08:17 Dose: 400 mg Memantine (Memantine Hcl 10 Mg Tablet) 10 mg PO BID [facility] Last Admin: 11/01/23 08:17 Dose: 10 mg Nystatin (Nystatin Cream 15 Gm Tube) 1 appl TOPICAL BID [facility]; Protocol Last Admin: 11/01/23 08:38 Dose: 1 appl Olanzapine (Olanzapine 2.5 Mg Tablet) 2.5 mg PO Q4H PRN PRN Reason: agitation Last Admin: 10/29/23 21:25 Dose: 2.5 mg Polyethylene Glycol (Polyethylene Glycol 3350 17 Gm Powd.Pack) 17 gm PO DAILY [facility] Last Admin: 11/01/23 08:17 Dose: 17 gm Senna (Sennosides 8.6 Mg Tablet) 17.2 mg PO BEDTIME [facility] Last Admin: 10/31/23 21:19 Dose: 17.2 mg Sertraline HCl (Sertraline Hcl 100 Mg Tablet) 200 mg PO DAILY [facility] Last Admin: 11/01/23 08:17 Dose: 200 mg Trazodone HCl (Trazodone Hcl 50 Mg Tablet) 50 mg PO BEDTIME MRX1 PRN PRN Reason: Sleep Last Admin: 11/01/23 01:33 Dose: 50 mg Allergies Allergies Allergy/AdvReac Type Severity Reaction Status Date / Time No Known Allergies Allergy Verified 03/23/23 18:13 Assessment & Plan Assessment & Plan (1) Alzheimer's dementia: Status: Acute Code(s): G30.9 - Alzheimer's disease, unspecified; F02.80 - Dementia in other diseases classified elsewhere, unspecified severity, without behavioral disturbance, psychotic disturbance, mood disturbance, and anxiety Assessment and Plan: August 24 58 years old woman with relative young age onset at Alzheimer dementia but overall clinical picture is affected by significant depression, which continues to be the predominant feature of for clinical picture. Conventional dementia medicines such as donepezil or memantine can be tried but usually do not make significant difference. I would suggest memantine 10 mg twice a day and donepezil 10 mg daily. Recently a new dementia at drug for Alzheimer was approved but only for relatively mild dementia or mild cognitive impairment type of patients. She would not qualify for that drug. 10/18 Patient sitting in chair in the day room, head leaning over to 1 side, resting. When asked how she is doing she says that she has diabetes and that she takes meds for that. She asks if typewriter tester will be down here again. Staff reports no changes in behavior but seems to have more frequent lucid moments. 10/27 continue tx. hold adderall due to increase irritability now that she is covid positive. 10/29: symptomatic of COVID - URI Sx. VSS. no change in mental health presentation. continue current mgmt. 10/30: continues laid low by COVID. psych presentation essentially unchanged. continue current mgmt, monitor VS. 10/31 continue tx. Plan 1. Continue with other oral Zoloft and other psychotropics. 2. Waiting for placement Plan Plan continue with same treatment Reason for continued inpatient stay Substantial Risk for: inability to function, rapid decompensation and med/psych decompensation Time Spent With Patient Time: Total time managing care of this patient today __20__ minutes.
[2023-11-01 18:00] VITALS: BP 123/58; PULSE 70; RESP 18; TEMP 36; O2SAT 96
[2023-11-01 20:56] LABS: Glucose, Whole Blood 158 mg/dL (60-115)
[2023-11-01] MEDS: Sennosides 8.6 MG TABLET 17.2 MG PO (21:03)
[2023-11-01] MEDS: Acetaminophen 325 MG TABLET 650 MG PO (21:04)
[2023-11-02] MEDS: guaiFENesin LA 600 MG TAB.ER.12H PO ×2 (03:39→21:54)
[2023-11-02 06:19] LABS: Glucose, Whole Blood 114 mg/dL (60-115)
[2023-11-02 07:00] VITALS: BMI 26.3
[2023-11-02 09:37] VITALS: BP 98/52; PULSE 68; RESP 16; TEMP 36.4; O2SAT 96
[2023-11-02] MEDS: polyethylene glycoL 3350 17 GM POWD.PACK PO (09:38)
[2023-11-02] MEDS: Magnesium Oxide 400 MG TABLET PO ×2 (09:38→16:51)
[2023-11-02] MEDS: Memantine HCl 10 MG TABLET PO ×2 (09:38→20:19)
[2023-11-02] MEDS: Insulin Glargine,Hum.rec.anlog 100 UNIT/ML 10 ML VIAL 6 UNIT SUBCUT (09:38)
[2023-11-02] MEDS: Docusate Sodium 100 MG CAPSULE PO ×2 (09:38→20:19)
[2023-11-02] MEDS: Sertraline HCL 100 MG TABLET 200 MG PO (09:38)
--- NOTE | 2023-11-02 10:47 | HO.PSYCHPN ---
Subjective Subjective Date of Service: 11/02/23 Reason For Visit: hallucinations confusion Subjective Notes: Conditional Voluntary Interim History: The nursing staff reported the patient had been compliant with treatment no changes in her mental status. On interview the patient denies new symptoms, waiting for placement. Diagnostics Vital Signs (24Hr): Vital Signs - 24 hr 11/01/23 18:00 11/02/23 09:37 Temperature 96.8 F 97.6 F Pulse Rate 70 68 Respiratory Rate 18 16 Blood Pressure 123/58 L 98/52 L Pulse Oximetry 96 96 Oxygen Delivery Method Room Air Room Air BMI result Body Mass Index 26.3 Labs 09/04/23 07:52 10/26/23 08:14 Labs: Laboratory Results - last 48 hr 10/31/23 11/01/23 11/01/23 20:24 05:59 15:35 POC Glucose 174 H 122 H COVID-19 ([facility]) Positive A COVID-19 Clin Com See Note 11/01/23 11/02/23 20:02 06:10 POC Glucose 158 H 114 COVID-19 ([facility]) COVID-19 Clin Com Imaging Radiology Impressions: ITS Impressions Brain MRI 04/03/23 15:30 IMPRESSION: No acute infarct, mass lesion, intracranial hemorrhage, or evidence of hydrocephalus. Mild nonspecific T2/FLAIR hyperintensity in the cerebral white matter and danny presumably on the basis of chronic microangiopathy. Cervical Spine CT 07/03/23 20:12 IMPRESSION: No acute findings within the cervical spine. The cervical central canal is not well assessed on this CT due to artifact. If weakness persists, a cervical spine MRI would be more sensitive in assessment. Medications Medications Current Medications Acetaminophen (Acetaminophen 325 Mg Tablet) 650 mg PO Q6H PRN PRN Reason: Pain, Mild (Pain Scale 1-3) Last Admin: 11/01/23 21:04 Dose: 650 mg Amphetamine/Dextroamphetamine (Amphetamine Mixed Salts 10 Mg Tablet) 5 mg PO BID@0800,1700 [facility] Last Admin: 10/27/23 08:55 Dose: 5 mg Bisacodyl (Bisacodyl 5 Mg Tablet.Dr) 10 mg PO DAILY PRN PRN Reason: Constipation Last Admin: 10/13/23 23:19 Dose: 10 mg Docusate Sodium (Docusate Sodium 100 Mg Capsule) 100 mg PO BID [facility] Last Admin: 11/02/23 09:38 Dose: 100 mg Guaifenesin (Guaifenesin La 600 Mg Tab.Er.12h) 600 mg PO BID PRN PRN Reason: Cough Last Admin: 11/02/23 03:39 Dose: 600 mg Insulin Glargine (Insulin Glargine,Hum.Rec.Anlog 100 Unit/Ml 10 Ml Vial) 6 unit SUBCUT DAILY [facility] Last Admin: 11/02/23 09:38 Dose: 6 unit Magnesium Oxide (Magnesium Oxide 400 Mg Tablet) 400 mg PO BIDPC [facility] Last Admin: 11/02/23 09:38 Dose: 400 mg Memantine (Memantine Hcl 10 Mg Tablet) 10 mg PO BID [facility] Last Admin: 11/02/23 09:38 Dose: 10 mg Nystatin (Nystatin Cream 15 Gm Tube) 1 appl TOPICAL BID [facility]; Protocol Last Admin: 11/01/23 21:03 Dose: 1 appl Olanzapine (Olanzapine 2.5 Mg Tablet) 2.5 mg PO Q4H PRN PRN Reason: agitation Last Admin: 10/29/23 21:25 Dose: 2.5 mg Polyethylene Glycol (Polyethylene Glycol 3350 17 Gm Powd.Pack) 17 gm PO DAILY [facility] Last Admin: 11/02/23 09:38 Dose: 17 gm Senna (Sennosides 8.6 Mg Tablet) 17.2 mg PO BEDTIME [facility] Last Admin: 11/01/23 21:03 Dose: 17.2 mg Sertraline HCl (Sertraline Hcl 100 Mg Tablet) 200 mg PO DAILY [facility] Last Admin: 11/02/23 09:38 Dose: 200 mg Trazodone HCl (Trazodone Hcl 50 Mg Tablet) 50 mg PO BEDTIME MRX1 PRN PRN Reason: Sleep Last Admin: 11/01/23 22:56 Dose: 50 mg Allergies Allergies Allergy/AdvReac Type Severity Reaction Status Date / Time No Known Allergies Allergy Verified 03/23/23 18:13 Assessment & Plan Assessment & Plan (1) Alzheimer's dementia: Status: Acute Code(s): G30.9 - Alzheimer's disease, unspecified; F02.80 - Dementia in other diseases classified elsewhere, unspecified severity, without behavioral disturbance, psychotic disturbance, mood disturbance, and anxiety Assessment and Plan: August 24 58 years old woman with relative young age onset at Alzheimer dementia but overall clinical picture is affected by significant depression, which continues to be the predominant feature of for clinical picture. Conventional dementia medicines such as donepezil or memantine can be tried but usually do not make significant difference. I would suggest memantine 10 mg twice a day and donepezil 10 mg daily. Recently a new dementia at drug for Alzheimer was approved but only for relatively mild dementia or mild cognitive impairment type of patients. She would not qualify for that drug. 10/18 Patient sitting in chair in the day room, head leaning over to 1 side, resting. When asked how she is doing she says that she has diabetes and that she takes meds for that. 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 Staff reports no changes in behavior but seems to have more frequent lucid moments. 10/27 continue tx. hold adderall due to increase irritability now that she is covid positive. 10/29: symptomatic of COVID - URI Sx. VSS. no change in mental health presentation. continue current mgmt. 10/30: continues laid low by COVID. psych presentation essentially unchanged. continue current mgmt, monitor VS. 10/31 continue tx. Plan 1. Continue with other oral Zoloft and other psychotropics. 2. Waiting for placement Plan Plan continue with same treatment Reason for continued inpatient stay Substantial Risk for: inability to function, rapid decompensation and med/psych decompensation Time Spent With Patient Time: Total time managing care of this patient today ____ minutes.
[2023-11-02 19:37] VITALS: BP 107/63; PULSE 78; RESP 16; TEMP 36.8; O2SAT 97
[2023-11-02 20:15] LABS: Glucose, Whole Blood 182 mg/dL (60-115)
[2023-11-02] MEDS: traZODone HCL 50 MG TABLET PO (20:19)
[2023-11-02] MEDS: Sennosides 8.6 MG TABLET 17.2 MG PO (20:19)
[2023-11-02] MEDS: Nystatin Cream 15 GM TUBE 1 APPL TOPICAL (20:20)
[2023-11-03 06:04] LABS: Glucose, Whole Blood 131 mg/dL (60-115)
[2023-11-03 09:07] VITALS: BP 121/73; PULSE 60; RESP 16; TEMP 37; O2SAT 98
[2023-11-03] MEDS: Docusate Sodium 100 MG CAPSULE PO ×2 (09:08→21:08)
[2023-11-03] MEDS: Sertraline HCL 100 MG TABLET 200 MG PO (09:08)
[2023-11-03] MEDS: Magnesium Oxide 400 MG TABLET PO ×2 (09:08→17:27)
[2023-11-03] MEDS: Memantine HCl 10 MG TABLET PO ×2 (09:08→21:08)
[2023-11-03] MEDS: Insulin Glargine,Hum.rec.anlog 100 UNIT/ML 10 ML VIAL 6 UNIT SUBCUT (09:11)
[2023-11-03] MEDS: polyethylene glycoL 3350 17 GM POWD.PACK PO (11:30)
--- NOTE | 2023-11-03 13:27 | P.PNPSI_ITS ---
Subjective Subjective Date of Service: 11/03/23 Reason For Visit: hallucinations confusion Subjective Notes: Conditional Voluntary Interim History: The nursing staff reported the patient was tearful in the evening yesterday. On interview the patient denies new symptoms waiting for placement. Mental Status Exam Mental Status Exam Patient Appearance: Appropriate Patient Orientation: Person Level of Consciousness: Awake Patient Behavior: Guarded and Passive Mood Description: Withdrawn Affect Description: Blunted Patient Cognition Impaired: Yes Ability to Follow Directions: Good Speech Pattern: Clear Hallucinations: None Delusions: Not Present Thought Process: Distracted Thought Content: positive for [place] and positive for Poverty of Content Judgement: Fair Diagnostics Vital Signs (24Hr): Vital Signs - 24 hr 11/02/23 19:37 11/03/23 09:07 Temperature 98.3 F 98.6 F Pulse Rate 78 60 Respiratory Rate 16 16 Blood Pressure 107/63 121/73 Pulse Oximetry 97 98 Oxygen Delivery Method Room Air Room Air BMI result Body Mass Index 26.3 Labs 09/04/23 07:52 10/26/23 08:14 Labs: Laboratory Results - last 48 hr 11/01/23 11/01/23 11/02/23 15:35 20:02 06:10 POC Glucose 158 H 114 COVID-19 ([facility]) Positive A COVID-19 Clin Com See Note 11/02/23 11/03/23 19:48 05:58 POC Glucose 182 H 131 H COVID-19 ([facility]) COVID-19 Clin Com Imaging Radiology Impressions: ITS Impressions Brain MRI 04/03/23 15:30 IMPRESSION: No acute infarct, mass lesion, intracranial hemorrhage, or evidence of hydrocephalus. Mild nonspecific T2/FLAIR hyperintensity in the cerebral white matter and danny presumably on the basis of chronic microangiopathy. Cervical Spine CT 07/03/23 20:12 IMPRESSION: No acute findings within the cervical spine. The cervical central canal is not well assessed on this CT due to artifact. If weakness persists, a cervical spine MRI would be more sensitive in assessment. Medications Medications Current Medications Acetaminophen (Acetaminophen 325 Mg Tablet) 650 mg PO Q6H PRN PRN Reason: Pain, Mild (Pain Scale 1-3) Last Admin: 11/01/23 21:04 Dose: 650 mg Amphetamine/Dextroamphetamine (Amphetamine Mixed Salts 10 Mg Tablet) 5 mg PO BID@0800,1700 [facility] Last Admin: 10/27/23 08:55 Dose: 5 mg Bisacodyl (Bisacodyl 5 Mg Tablet.Dr) 10 mg PO DAILY PRN PRN Reason: Constipation Last Admin: 10/13/23 23:19 Dose: 10 mg Docusate Sodium (Docusate Sodium 100 Mg Capsule) 100 mg PO BID [facility] Last Admin: 11/03/23 09:08 Dose: 100 mg Guaifenesin (Guaifenesin La 600 Mg Tab.Er.12h) 600 mg PO BID PRN PRN Reason: Cough Last Admin: 11/02/23 21:54 Dose: 600 mg Insulin Glargine (Insulin Glargine,Hum.Rec.Anlog 100 Unit/Ml 10 Ml Vial) 6 unit SUBCUT DAILY [facility] Last Admin: 11/03/23 09:11 Dose: 6 unit Magnesium Oxide (Magnesium Oxide 400 Mg Tablet) 400 mg PO BIDPC [facility] Last Admin: 11/03/23 09:08 Dose: 400 mg Memantine (Memantine Hcl 10 Mg Tablet) 10 mg PO BID [facility] Last Admin: 11/03/23 09:08 Dose: 10 mg Nystatin (Nystatin Cream 15 Gm Tube) 1 appl TOPICAL BID [facility]; Protocol Last Admin: 11/03/23 11:30 Dose: Not Given Olanzapine (Olanzapine 2.5 Mg Tablet) 2.5 mg PO Q4H PRN PRN Reason: agitation Last Admin: 10/29/23 21:25 Dose: 2.5 mg Polyethylene Glycol (Polyethylene Glycol 3350 17 Gm Powd.Pack) 17 gm PO DAILY [facility] Last Admin: 11/03/23 11:30 Dose: 17 gm Senna (Sennosides 8.6 Mg Tablet) 17.2 mg PO BEDTIME [facility] Last Admin: 11/02/23 20:19 Dose: 17.2 mg Sertraline HCl (Sertraline Hcl 100 Mg Tablet) 200 mg PO DAILY [facility] Last Admin: 11/03/23 09:08 Dose: 200 mg Trazodone HCl (Trazodone Hcl 50 Mg Tablet) 50 mg PO BEDTIME MRX1 PRN PRN Reason: Sleep Last Admin: 11/02/23 20:19 Dose: 50 mg Allergies Allergies Allergy/AdvReac Type Severity Reaction Status Date / Time No Known Allergies Allergy Verified 03/23/23 18:13 Assessment & Plan Assessment & Plan (1) Alzheimer's dementia: Status: Acute Code(s): G30.9 - Alzheimer's disease, unspecified; F02.80 - Dementia in other diseases classified elsewhere, unspecified severity, without behavioral disturbance, psychotic disturbance, mood disturbance, and anxiety Assessment and Plan: August 24 58 years old woman with relative young age onset at Alzheimer dementia but overall clinical picture is affected by significant depression, which continues to be the predominant feature of for clinical picture. Conventional dementia medicines such as donepezil or memantine can be tried but usually do not make significant difference. I would suggest memantine 10 mg twice a day and donepezil 10 mg daily. Recently a new dementia at drug for Alzheimer was approved but only for relatively mild dementia or mild cognitive impairment type of patients. She would not qualify for that drug. 10/18 Patient sitting in chair in the day room, head leaning over to 1 side, resting. When asked how she is doing she says that she has diabetes and that she takes meds for that. She asks if writer technical publications will be down here again. Staff reports no changes in behavior but seems to have more frequent lucid moments. 10/27 continue tx. hold adderall due to increase irritability now that she is covid positive. 10/29: symptomatic of COVID - URI Sx. VSS. no change in mental health presentation. continue current mgmt. 10/30: continues laid low by COVID. psych presentation essentially unchanged. continue current mgmt, monitor VS. 10/31 continue tx. Plan 1. Continue with other oral Zoloft and other psychotropics. 2. Waiting for placement Plan Plan continue with same treatment Reason for continued inpatient stay Substantial Risk for: inability to function, rapid decompensation and med/psych decompensation Time Spent With Patient Time: Total time managing care of this patient today __20__ minutes.
[2023-11-03 18:00] VITALS: BP 113/65; PULSE 68; RESP 16; TEMP 36.3; O2SAT 97
[2023-11-03 20:22] LABS: Glucose, Whole Blood 208 mg/dL (60-115)
[2023-11-03] MEDS: traZODone HCL 50 MG TABLET PO (21:08)
[2023-11-03] MEDS: Sennosides 8.6 MG TABLET 17.2 MG PO (21:08)
[2023-11-03] MEDS: OLANZapine 2.5 MG TABLET PO (21:08)
[2023-11-03] MEDS: Nystatin Cream 15 GM TUBE 1 APPL TOPICAL (21:13)
[2023-11-04 06:40] LABS: Glucose, Whole Blood 108 mg/dL (60-115)
--- NOTE | 2023-11-04 07:47 | P.PNPSI_ITS ---
Subjective Subjective Date of Service: 11/04/23 Reason For Visit: hallucinations confusion Subjective Notes: Conditional Voluntary Healthcare Proxy: Yes Medical Problems Affecting Mental Status: Yes (early onset dementia) Interim History: Pt feeling very anxious, somewhat down- was walking to kitchen area when other patients involved in conflict escalated - pt seemed very spooked by this and- closed in on herself- poor eye contact, poverty of speech Medication Compliance: Yes Side effects from medications: No Attending Groups: Intermittent Review of Systems Acute medical concerns: No Medical Review of Systems: unchanged Mental Status Exam Mental Status Exam Patient Appearance: Disheveled Patient Orientation: Person and Place Level of Consciousness: Awake Patient Behavior: Dependent, Guarded and Passive Mood Description: Withdrawn and Anxious Affect Description: Blunted Patient Cognition Impaired: Yes Ability to Follow Directions: Fair Speech Pattern: Mumbled and Poor Articulation Hallucinations: None Delusions: Not Present Thought Process: Distracted Thought Content: positive for [place] and positive for Poverty of Content Abnormal Motor Activity Signs and Symptoms: Psychomotor Retardation Judgement: Fair Diagnostics Vital Signs (24Hr): Vital Signs - 24 hr 11/03/23 09:07 11/03/23 18:00 Temperature 98.6 F 97.3 F Pulse Rate 60 68 Respiratory Rate 16 16 Blood Pressure 121/73 113/65 Pulse Oximetry 98 97 Oxygen Delivery Method Room Air Room Air BMI result Body Mass Index 26.3 Labs 09/04/23 07:52 10/26/23 08:14 Labs: Laboratory Results - last 48 hr 11/02/23 11/03/23 11/03/23 19:48 05:58 19:49 POC Glucose 182 H 131 H 208 H 11/04/23 06:22 POC Glucose 108 Imaging Radiology Impressions: ITS Impressions Brain MRI 04/03/23 15:30 IMPRESSION: No acute infarct, mass lesion, intracranial hemorrhage, or evidence of hydrocephalus. Mild nonspecific T2/FLAIR hyperintensity in the cerebral white matter and danny presumably on the basis of chronic microangiopathy. Cervical Spine CT 07/03/23 20:12 IMPRESSION: No acute findings within the cervical spine. The cervical central canal is not well assessed on this CT due to artifact. If weakness persists, a cervical spine MRI would be more sensitive in assessment. Medications Medications Current Medications Acetaminophen (Acetaminophen 325 Mg Tablet) 650 mg PO Q6H PRN PRN Reason: Pain, Mild (Pain Scale 1-3) Last Admin: 11/01/23 21:04 Dose: 650 mg Amphetamine/Dextroamphetamine (Amphetamine Mixed Salts 10 Mg Tablet) 5 mg PO BID@0800,1700 [facility] Last Admin: 10/27/23 08:55 Dose: 5 mg Bisacodyl (Bisacodyl 5 Mg Tablet.Dr) 10 mg PO DAILY PRN PRN Reason: Constipation Last Admin: 10/13/23 23:19 Dose: 10 mg Docusate Sodium (Docusate Sodium 100 Mg Capsule) 100 mg PO BID [facility] Last Admin: 11/03/23 21:08 Dose: 100 mg Guaifenesin (Guaifenesin La 600 Mg Tab.Er.12h) 600 mg PO BID PRN PRN Reason: Cough Last Admin: 11/02/23 21:54 Dose: 600 mg Insulin Glargine (Insulin Glargine,Hum.Rec.Anlog 100 Unit/Ml 10 Ml Vial) 6 unit SUBCUT DAILY [facility] Last Admin: 11/03/23 09:11 Dose: 6 unit Magnesium Oxide (Magnesium Oxide 400 Mg Tablet) 400 mg PO BIDPC [facility] Last Admin: 11/03/23 17:27 Dose: 400 mg Memantine (Memantine Hcl 10 Mg Tablet) 10 mg PO BID [facility] Last Admin: 11/03/23 21:08 Dose: 10 mg Nystatin (Nystatin Cream 15 Gm Tube) 1 appl TOPICAL BID [facility]; Protocol Last Admin: 11/03/23 21:13 Dose: 1 appl Olanzapine (Olanzapine 2.5 Mg Tablet) 2.5 mg PO Q4H PRN PRN Reason: agitation Last Admin: 11/03/23 21:08 Dose: 2.5 mg Polyethylene Glycol (Polyethylene Glycol 3350 17 Gm Powd.Pack) 17 gm PO DAILY [facility] Last Admin: 11/03/23 11:30 Dose: 17 gm Senna (Sennosides 8.6 Mg Tablet) 17.2 mg PO BEDTIME [facility] Last Admin: 11/03/23 21:08 Dose: 17.2 mg Sertraline HCl (Sertraline Hcl 100 Mg Tablet) 200 mg PO DAILY [facility] Last Admin: 11/03/23 09:08 Dose: 200 mg Trazodone HCl (Trazodone Hcl 50 Mg Tablet) 50 mg PO BEDTIME MRX1 PRN PRN Reason: Sleep Last Admin: 11/03/23 21:08 Dose: 50 mg Allergies Allergies Allergy/AdvReac Type Severity Reaction Status Date / Time No Known Allergies Allergy Verified 03/23/23 18:13 Assessment & Plan Assessment & Plan (1) Alzheimer's dementia: Status: Acute Code(s): G30.9 - Alzheimer's disease, unspecified; F02.80 - Dementia in other diseases classified elsewhere, unspecified severity, without behavioral disturbance, psychotic disturbance, mood disturbance, and anxiety Assessment and Plan: August 24 58 years old woman with relative young age onset at Alzheimer dementia but overall clinical picture is affected by significant depression, which continues to be the predominant feature of for clinical picture. Conventional dementia medicines such as donepezil or memantine can be tried but usually do not make significant difference. I would suggest memantine 10 mg twice a day and donepezil 10 mg daily. Recently a new dementia at drug for Alzheimer was approved but only for relatively mild dementia or mild cognitive impairment type of patients. She would not qualify for that drug. 10/18 Patient sitting in chair in the day room, head leaning over to 1 side, resting. When asked how she is doing she says that she has diabetes and that she takes meds for that. She asks if marketing writer will be down here again. Staff reports no changes in behavior but seems to have more frequent lucid moments. 10/27 continue tx. hold adderall due to increase irritability now that she is covid positive. 10/29: symptomatic of COVID - URI Sx. VSS. no change in mental health presentation. continue current mgmt. 10/30: continues laid low by COVID. psych presentation essentially unchanged. continue current mgmt, monitor VS. 10/31 continue tx. Plan 1. Continue with other oral Zoloft and other psychotropics. 2. Waiting for placement Plan Plan continue with same treatment Patient educated on: other Informed Consent: further education needed Reason for continued inpatient stay Substantial Risk for: inability to function and rapid decompensation Time Spent With Patient Time: Total time managing care of this patient today ____ minutes.
[2023-11-04 08:17] VITALS: BP 118/63; PULSE 62; RESP 18; TEMP 36.4; O2SAT 96
[2023-11-04] MEDS: Insulin Glargine,Hum.rec.anlog 100 UNIT/ML 10 ML VIAL 6 UNIT SUBCUT (08:39)
[2023-11-04] MEDS: Sertraline HCL 100 MG TABLET 200 MG PO (08:39)
[2023-11-04] MEDS: polyethylene glycoL 3350 17 GM POWD.PACK PO (08:39)
[2023-11-04] MEDS: Memantine HCl 10 MG TABLET PO ×2 (08:39→21:22)
[2023-11-04] MEDS: Magnesium Oxide 400 MG TABLET PO ×2 (08:39→17:28)
[2023-11-04] MEDS: Nystatin Cream 15 GM TUBE 1 APPL TOPICAL ×2 (08:39→21:22)
[2023-11-04] MEDS: Docusate Sodium 100 MG CAPSULE PO ×2 (08:39→21:22)
[2023-11-04 18:00] VITALS: BP 123/70; PULSE 77; RESP 18; TEMP 36.4; O2SAT 98
[2023-11-04 20:13] LABS: Glucose, Whole Blood 227 mg/dL (60-115)
[2023-11-04] MEDS: Acetaminophen 325 MG TABLET 650 MG PO (21:21)
[2023-11-04] MEDS: Sennosides 8.6 MG TABLET 17.2 MG PO (21:21)
[2023-11-04] MEDS: OLANZapine 2.5 MG TABLET PO (21:22)
[2023-11-04] MEDS: traZODone HCL 50 MG TABLET PO (21:22)
[2023-11-05 06:28] LABS: Glucose, Whole Blood 119 mg/dL (60-115)
[2023-11-05] MEDS: Magnesium Oxide 400 MG TABLET PO ×2 (08:52→16:57)
[2023-11-05] MEDS: Sertraline HCL 100 MG TABLET 200 MG PO (08:52)
[2023-11-05] MEDS: Docusate Sodium 100 MG CAPSULE PO ×2 (08:52→20:26)
[2023-11-05] MEDS: Memantine HCl 10 MG TABLET PO ×2 (08:52→20:26)
[2023-11-05] MEDS: Insulin Glargine,Hum.rec.anlog 100 UNIT/ML 10 ML VIAL 6 UNIT SUBCUT (08:52)
[2023-11-05] MEDS: polyethylene glycoL 3350 17 GM POWD.PACK PO (08:52)
[2023-11-05 09:02] VITALS: BP 109/57; PULSE 64; RESP 18; TEMP 36.4; O2SAT 96
--- NOTE | 2023-11-05 16:27 | P.PNPSI_ITS ---
Subjective Subjective Date of Service: 11/05/23 Reason For Visit: hallucinations confusion Subjective Notes: Conditional Voluntary Healthcare Proxy: Yes Medical Problems Affecting Mental Status: Yes (dementia early onset severe) Interim History: 58 yo has no complaints, wearing a mask over entire face including eyes- Medication Compliance: Yes Side effects from medications: No Attending Groups: Intermittent Review of Systems Acute medical concerns: No Medical Review of Systems: unchanged Mental Status Exam Mental Status Exam Narrative: appropriately dressed, but oddly has mask covering entire face - as if hiding behind it Patient Orientation: Person Level of Consciousness: Awake Patient Behavior: Dependent and Passive Mood Description: Apathetic and Withdrawn Affect Description: Constricted Patient Cognition Impaired: Yes Ability to Follow Directions: Poor Speech Pattern: Impoverished, Whisper and Poor Articulation Hallucinations: None Thought Process: Slowed Thinking Thought Content: positive for [place] Judgement: Poor Diagnostics Vital Signs (24Hr): Vital Signs - 24 hr 11/04/23 18:00 11/05/23 09:02 Temperature 97.6 F 97.6 F Pulse Rate 77 64 Respiratory Rate 18 18 Blood Pressure 123/70 109/57 L Pulse Oximetry 98 96 Oxygen Delivery Method Room Air Room Air BMI result Body Mass Index 26.3 Labs 09/04/23 07:52 10/26/23 08:14 Labs: Laboratory Results - last 48 hr 11/03/23 11/04/23 11/04/23 19:49 06:22 19:42 POC Glucose 208 H 108 227 H 11/05/23 06:16 POC Glucose 119 H Imaging Radiology Impressions: ITS Impressions Brain MRI 04/03/23 15:30 IMPRESSION: No acute infarct, mass lesion, intracranial hemorrhage, or evidence of hydrocephalus. Mild nonspecific T2/FLAIR hyperintensity in the cerebral white matter and danny presumably on the basis of chronic microangiopathy. Cervical Spine CT 07/03/23 20:12 IMPRESSION: No acute findings within the cervical spine. The cervical central canal is not well assessed on this CT due to artifact. If weakness persists, a cervical spine MRI would be more sensitive in assessment. Medications Medications Current Medications Acetaminophen (Acetaminophen 325 Mg Tablet) 650 mg PO Q6H PRN PRN Reason: Pain, Mild (Pain Scale 1-3) Last Admin: 11/04/23 21:21 Dose: 650 mg Amphetamine/Dextroamphetamine (Amphetamine Mixed Salts 10 Mg Tablet) 5 mg PO BID@0800,1700 [facility] Last Admin: 10/27/23 08:55 Dose: 5 mg Bisacodyl (Bisacodyl 5 Mg Tablet.Dr) 10 mg PO DAILY PRN PRN Reason: Constipation Last Admin: 10/13/23 23:19 Dose: 10 mg Docusate Sodium (Docusate Sodium 100 Mg Capsule) 100 mg PO BID [facility] Last Admin: 11/05/23 08:52 Dose: 100 mg Guaifenesin (Guaifenesin La 600 Mg Tab.Er.12h) 600 mg PO BID PRN PRN Reason: Cough Last Admin: 11/02/23 21:54 Dose: 600 mg Insulin Glargine (Insulin Glargine,Hum.Rec.Anlog 100 Unit/Ml 10 Ml Vial) 6 unit SUBCUT DAILY [facility] Last Admin: 11/05/23 08:52 Dose: 6 unit Magnesium Oxide (Magnesium Oxide 400 Mg Tablet) 400 mg PO BIDPC [facility] Last Admin: 11/05/23 08:52 Dose: 400 mg Memantine (Memantine Hcl 10 Mg Tablet) 10 mg PO BID [facility] Last Admin: 11/05/23 08:52 Dose: 10 mg Nystatin (Nystatin Cream 15 Gm Tube) 1 appl TOPICAL BID [facility]; Protocol Last Admin: 11/05/23 08:53 Dose: Not Given Olanzapine (Olanzapine 2.5 Mg Tablet) 2.5 mg PO Q4H PRN PRN Reason: agitation Last Admin: 11/04/23 21:22 Dose: 2.5 mg Polyethylene Glycol (Polyethylene Glycol 3350 17 Gm Powd.Pack) 17 gm PO DAILY [facility] Last Admin: 11/05/23 08:52 Dose: 17 gm Senna (Sennosides 8.6 Mg Tablet) 17.2 mg PO BEDTIME [facility] Last Admin: 11/04/23 21:21 Dose: 17.2 mg Sertraline HCl (Sertraline Hcl 100 Mg Tablet) 200 mg PO DAILY [facility] Last Admin: 11/05/23 08:52 Dose: 200 mg Trazodone HCl (Trazodone Hcl 50 Mg Tablet) 50 mg PO BEDTIME MRX1 PRN PRN Reason: Sleep Last Admin: 11/04/23 21:22 Dose: 50 mg Allergies Allergies Allergy/AdvReac Type Severity Reaction Status Date / Time No Known Allergies Allergy Verified 03/23/23 18:13 Assessment & Plan Assessment & Plan (1) Alzheimer's dementia: Status: Acute Code(s): G30.9 - Alzheimer's disease, unspecified; F02.80 - Dementia in other diseases classified elsewhere, unspecified severity, without behavioral disturbance, psychotic disturbance, mood disturbance, and anxiety Assessment and Plan: August 24 58 years old woman with relative young age onset at Alzheimer dementia but overall clinical picture is affected by significant depression, which continues to be the predominant feature of for clinical picture. Conventional dementia medicines such as donepezil or memantine can be tried but usually do not make significant difference. I would suggest memantine 10 mg twice a day and donepezil 10 mg daily. Recently a new dementia at drug for Alzheimer was approved but only for relatively mild dementia or mild cognitive impairment type of patients. She would not qualify for that drug. 10/18 Patient sitting in chair in the day room, head leaning over to 1 side, resting. When asked how she is doing she says that she has diabetes and that she takes meds for that. She asks if contract technical writer will be down here again. Staff reports no changes in behavior but seems to have more frequent lucid moments. 10/27 continue tx. hold adderall due to increase irritability now that she is covid positive. 10/29: symptomatic of COVID - URI Sx. VSS. no change in mental health presentation. continue current mgmt. 10/30: continues laid low by COVID. psych presentation essentially unchanged. continue current mgmt, monitor VS. 10/31 continue tx. 11/05 CTP no change Plan 1. Continue with other oral Zoloft and other psychotropics. 2. Waiting for placement Plan Plan continue with same treatment Reason for continued inpatient stay Substantial Risk for: inability to function Time Spent With Patient Time: Total time managing care of this patient today ____ minutes.
[2023-11-05 17:23] VITALS: BP 112/60; PULSE 66; RESP 16; TEMP 36.1; O2SAT 99
[2023-11-05 20:00] LABS: Glucose, Whole Blood 161 mg/dL (60-115)
[2023-11-05] MEDS: Sennosides 8.6 MG TABLET 17.2 MG PO (20:26)
[2023-11-05] MEDS: traZODone HCL 50 MG TABLET PO (20:26)
[2023-11-06 05:57] LABS: Glucose, Whole Blood 109 mg/dL (60-115)
[2023-11-06 07:40] VITALS: BP 123/58; PULSE 60; RESP 18; TEMP 36.6; O2SAT 98
[2023-11-06] MEDS: Magnesium Oxide 400 MG TABLET PO ×2 (08:16→16:58)
[2023-11-06] MEDS: Sertraline HCL 100 MG TABLET 200 MG PO (08:17)
[2023-11-06] MEDS: Memantine HCl 10 MG TABLET PO ×2 (08:17→19:45)
[2023-11-06] MEDS: Docusate Sodium 100 MG CAPSULE PO ×2 (08:17→19:45)
[2023-11-06] MEDS: Insulin Glargine,Hum.rec.anlog 100 UNIT/ML 10 ML VIAL 6 UNIT SUBCUT (08:18)
[2023-11-06] MEDS: Nystatin Cream 15 GM TUBE 1 APPL TOPICAL (08:18)
[2023-11-06] MEDS: polyethylene glycoL 3350 17 GM POWD.PACK PO (08:19)
--- NOTE | 2023-11-06 10:53 | P.PNPSI_ITS ---
Subjective Subjective Date of Service: 11/06/23 Reason For Visit: hallucinations confusion Subjective Notes: Conditional Voluntary Healthcare Proxy: Yes Interim History: 58 yo in group - observing not participating- head nodding down in ongoing way- gives seeming response but very little if any spontaneous speech Medication Compliance: Yes Side effects from medications: No Attending Groups: Intermittent Review of Systems Acute medical concerns: No Medical Review of Systems: unchanged Mental Status Exam Mental Status Exam Narrative: Sitting dressed in group on edge observing but not participating gives one word answers, no elaboration or spontaneous engagement Patient Appearance: Well Grooomed and Appropriate Patient Orientation: Person Level of Consciousness: Awake and Alert Patient Behavior: Dependent, Passive and Poor Eye Contact Mood Description: Apathetic and Withdrawn Affect Description: Flat Patient Cognition Impaired: Yes Ability to Follow Directions: Fair Speech Pattern: Impoverished and Garbled Thought Process: Slowed Thinking Abnormal Motor Activity Signs and Symptoms: Muscle Rigidity Judgement: Poor Diagnostics Vital Signs (24Hr): Vital Signs - 24 hr 11/05/23 17:23 11/06/23 07:40 Temperature 97.0 F 98 F Pulse Rate 66 60 Respiratory Rate 16 18 Blood Pressure 112/60 123/58 L Pulse Oximetry 99 98 Oxygen Delivery Method Room Air Room Air BMI result Body Mass Index 26.3 Labs 09/04/23 07:52 10/26/23 08:14 Labs: Laboratory Results - last 48 hr 11/04/23 11/05/23 11/05/23 19:42 06:16 19:34 POC Glucose 227 H 119 H 161 H 11/06/23 05:37 POC Glucose 109 Imaging Radiology Impressions: ITS Impressions Brain MRI 04/03/23 15:30 IMPRESSION: No acute infarct, mass lesion, intracranial hemorrhage, or evidence of hydrocephalus. Mild nonspecific T2/FLAIR hyperintensity in the cerebral white matter and danny presumably on the basis of chronic microangiopathy. Cervical Spine CT 07/03/23 20:12 IMPRESSION: No acute findings within the cervical spine. The cervical central canal is not well assessed on this CT due to artifact. If weakness persists, a cervical spine MRI would be more sensitive in assessment. Medications Medications Current Medications Acetaminophen (Acetaminophen 325 Mg Tablet) 650 mg PO Q6H PRN PRN Reason: Pain, Mild (Pain Scale 1-3) Last Admin: 11/04/23 21:21 Dose: 650 mg Amphetamine/Dextroamphetamine (Amphetamine Mixed Salts 10 Mg Tablet) 5 mg PO BID@0800,1700 [facility] Last Admin: 10/27/23 08:55 Dose: 5 mg Bisacodyl (Bisacodyl 5 Mg Tablet.Dr) 10 mg PO DAILY PRN PRN Reason: Constipation Last Admin: 10/13/23 23:19 Dose: 10 mg Docusate Sodium (Docusate Sodium 100 Mg Capsule) 100 mg PO BID [facility] Last Admin: 11/06/23 08:17 Dose: 100 mg Guaifenesin (Guaifenesin La 600 Mg Tab.Er.12h) 600 mg PO BID PRN PRN Reason: Cough Last Admin: 11/02/23 21:54 Dose: 600 mg Insulin Glargine (Insulin Glargine,Hum.Rec.Anlog 100 Unit/Ml 10 Ml Vial) 6 unit SUBCUT DAILY [facility] Last Admin: 11/06/23 08:18 Dose: 6 unit Magnesium Oxide (Magnesium Oxide 400 Mg Tablet) 400 mg PO BIDPC [facility] Last Admin: 11/06/23 08:16 Dose: 400 mg Memantine (Memantine Hcl 10 Mg Tablet) 10 mg PO BID [facility] Last Admin: 11/06/23 08:17 Dose: 10 mg Nystatin (Nystatin Cream 15 Gm Tube) 1 appl TOPICAL BID [facility]; Protocol Last Admin: 11/06/23 08:18 Dose: 1 appl Olanzapine (Olanzapine 2.5 Mg Tablet) 2.5 mg PO Q4H PRN PRN Reason: agitation Last Admin: 11/04/23 21:22 Dose: 2.5 mg Polyethylene Glycol (Polyethylene Glycol 3350 17 Gm Powd.Pack) 17 gm PO DAILY [facility] Last Admin: 11/06/23 08:19 Dose: 17 gm Senna (Sennosides 8.6 Mg Tablet) 17.2 mg PO BEDTIME [facility] Last Admin: 11/05/23 20:26 Dose: 17.2 mg Sertraline HCl (Sertraline Hcl 100 Mg Tablet) 200 mg PO DAILY [facility] Last Admin: 11/06/23 08:17 Dose: 200 mg Trazodone HCl (Trazodone Hcl 50 Mg Tablet) 50 mg PO BEDTIME MRX1 PRN PRN Reason: Sleep Last Admin: 11/05/23 20:26 Dose: 50 mg Allergies Allergies Allergy/AdvReac Type Severity Reaction Status Date / Time No Known Allergies Allergy Verified 03/23/23 18:13 Assessment & Plan Assessment & Plan (1) Alzheimer's dementia: Status: Acute Code(s): G30.9 - Alzheimer's disease, unspecified; F02.80 - Dementia in other diseases classified elsewhere, unspecified severity, without behavioral disturbance, psychotic disturbance, mood disturbance, and anxiety Assessment and Plan: August 24 58 years old woman with relative young age onset at Alzheimer dementia but overall clinical picture is affected by significant depression, which continues to be the predominant feature of for clinical picture. Conventional dementia medicines such as donepezil or memantine can be tried but usually do not make significant difference. I would suggest memantine 10 mg twice a day and donepezil 10 mg daily. Recently a new dementia at drug for Alzheimer was approved but only for relatively mild dementia or mild cognitive impairment type of patients. She would not qualify for that drug. 10/18 Patient sitting in chair in the day room, head leaning over to 1 side, resting. When asked how she is doing she says that she has diabetes and that she takes meds for that. 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 Staff reports no changes in behavior but seems to have more frequent lucid moments. 10/27 continue tx. hold adderall due to increase irritability now that she is covid positive. 10/29: symptomatic of COVID - URI Sx. VSS. no change in mental health presentation. continue current mgmt. 10/30: continues laid low by COVID. psych presentation essentially unchanged. continue current mgmt, monitor VS. 10/31 continue tx. 11/05 CTP no change 11/06/23 - CTP Plan 1. Continue with other oral Zoloft and other psychotropics. 2. Waiting for placement Plan Plan continue with same treatment Reason for continued inpatient stay Substantial Risk for: inability to function and rapid decompensation Time Spent With Patient Time: Total time managing care of this patient today ____ minutes.
[2023-11-06] MEDS: OLANZapine 2.5 MG TABLET PO ×2 (14:04→23:37)
[2023-11-06 18:00] VITALS: BP 133/65; PULSE 79; RESP 17; TEMP 37; O2SAT 100
[2023-11-06] MEDS: Sennosides 8.6 MG TABLET 17.2 MG PO (19:45)
[2023-11-06] MEDS: traZODone HCL 50 MG TABLET PO ×2 (19:46→23:37)
[2023-11-06 20:06] LABS: Glucose, Whole Blood 155 mg/dL (60-115)
[2023-11-07 06:17] LABS: Glucose, Whole Blood 161 mg/dL (60-115)
[2023-11-07 07:55] VITALS: BP 127/64; PULSE 64; RESP 18; TEMP 36.4; O2SAT 94
[2023-11-07] MEDS: polyethylene glycoL 3350 17 GM POWD.PACK PO (09:29)
[2023-11-07] MEDS: Insulin Glargine,Hum.rec.anlog 100 UNIT/ML 10 ML VIAL 6 UNIT SUBCUT (09:29)
[2023-11-07] MEDS: Sertraline HCL 100 MG TABLET 200 MG PO (09:29)
[2023-11-07] MEDS: Docusate Sodium 100 MG CAPSULE PO ×2 (09:30→20:54)
[2023-11-07] MEDS: Nystatin Cream 15 GM TUBE 1 APPL TOPICAL ×2 (09:30→20:54)
[2023-11-07] MEDS: Magnesium Oxide 400 MG TABLET PO ×2 (09:30→16:51)
[2023-11-07] MEDS: Memantine HCl 10 MG TABLET PO ×2 (09:30→20:54)
--- NOTE | 2023-11-07 13:02 | P.PNPSI_ITS ---
Subjective Subjective Date of Service: 11/07/23 Reason For Visit: hallucinations confusion Subjective Notes: Conditional Voluntary Interim History: The nursing staff reported the patient had been crying, paranoid stating that people are not liking her. She took p.r.n. Zyprexa after lunch yesterday and some improvement. The staff has noticed that since she had COVID she is more paranoid and anxious. We are going to start Zyprexa 5 mg p.o. q.h.s. to target paranoia, most likely induced by COVID induced delirium. Mental Status Exam Mental Status Exam Patient Appearance: Appropriate Patient Orientation: Person Level of Consciousness: Awake Patient Behavior: Guarded and Passive Mood Description: Withdrawn Patient Cognition Impaired: Yes Ability to Follow Directions: Good Speech Pattern: Clear Hallucinations: None Delusions: Paranoid Ideation Thought Process: Distracted and Slowed Thinking Thought Content: positive for [place] and positive for Poverty of Content Judgement: Fair Diagnostics Vital Signs (24Hr): Vital Signs - 24 hr 11/06/23 18:00 11/07/23 07:55 Temperature 98.6 F 97.6 F Pulse Rate 79 64 Respiratory Rate 17 18 Blood Pressure 133/65 127/64 Pulse Oximetry 100 94 Oxygen Delivery Method Room Air Room Air BMI result Body Mass Index 26.3 Labs 09/04/23 07:52 10/26/23 08:14 Labs: Laboratory Results - last 48 hr 11/05/23 11/06/23 11/06/23 19:34 05:37 19:39 POC Glucose 161 H 109 155 H 11/07/23 06:02 POC Glucose 161 H Imaging Radiology Impressions: ITS Impressions Brain MRI 04/03/23 15:30 IMPRESSION: No acute infarct, mass lesion, intracranial hemorrhage, or evidence of hydrocephalus. Mild nonspecific T2/FLAIR hyperintensity in the cerebral white matter and danny presumably on the basis of chronic microangiopathy. Cervical Spine CT 07/03/23 20:12 IMPRESSION: No acute findings within the cervical spine. The cervical central canal is not well assessed on this CT due to artifact. If weakness persists, a cervical spine MRI would be more sensitive in assessment. Medications Medications Current Medications Acetaminophen (Acetaminophen 325 Mg Tablet) 650 mg PO Q6H PRN PRN Reason: Pain, Mild (Pain Scale 1-3) Last Admin: 11/04/23 21:21 Dose: 650 mg Amphetamine/Dextroamphetamine (Amphetamine Mixed Salts 10 Mg Tablet) 5 mg PO BID@0800,1700 [facility] Last Admin: 10/27/23 08:55 Dose: 5 mg Bisacodyl (Bisacodyl 5 Mg Tablet.Dr) 10 mg PO DAILY PRN PRN Reason: Constipation Last Admin: 10/13/23 23:19 Dose: 10 mg Docusate Sodium (Docusate Sodium 100 Mg Capsule) 100 mg PO BID [facility] Last Admin: 11/07/23 09:30 Dose: 100 mg Guaifenesin (Guaifenesin La 600 Mg Tab.Er.12h) 600 mg PO BID PRN PRN Reason: Cough Last Admin: 11/02/23 21:54 Dose: 600 mg Insulin Glargine (Insulin Glargine,Hum.Rec.Anlog 100 Unit/Ml 10 Ml Vial) 6 unit SUBCUT DAILY [facility] Last Admin: 11/07/23 09:29 Dose: 6 unit Magnesium Oxide (Magnesium Oxide 400 Mg Tablet) 400 mg PO BIDPC [facility] Last Admin: 11/07/23 09:30 Dose: 400 mg Memantine (Memantine Hcl 10 Mg Tablet) 10 mg PO BID [facility] Last Admin: 11/07/23 09:30 Dose: 10 mg Nystatin (Nystatin Cream 15 Gm Tube) 1 appl TOPICAL BID [facility]; Protocol Last Admin: 11/07/23 09:30 Dose: 1 appl Olanzapine (Olanzapine 2.5 Mg Tablet) 2.5 mg PO Q4H PRN PRN Reason: agitation Last Admin: 11/06/23 23:37 Dose: 2.5 mg Olanzapine (Olanzapine 5 Mg Tablet) 5 mg PO BEDTIME [facility] Polyethylene Glycol (Polyethylene Glycol 3350 17 Gm Powd.Pack) 17 gm PO DAILY [facility] Last Admin: 11/07/23 09:29 Dose: 17 gm Senna (Sennosides 8.6 Mg Tablet) 17.2 mg PO BEDTIME [facility] Last Admin: 11/06/23 19:45 Dose: 17.2 mg Sertraline HCl (Sertraline Hcl 100 Mg Tablet) 200 mg PO DAILY [facility] Last Admin: 11/07/23 09:29 Dose: 200 mg Trazodone HCl (Trazodone Hcl 50 Mg Tablet) 50 mg PO BEDTIME MRX1 PRN PRN Reason: Sleep Last Admin: 11/06/23 23:37 Dose: 50 mg Allergies Allergies Allergy/AdvReac Type Severity Reaction Status Date / Time No Known Allergies Allergy Verified 03/23/23 18:13 Assessment & Plan Assessment & Plan (1) Alzheimer's dementia: Status: Acute Code(s): G30.9 - Alzheimer's disease, unspecified; F02.80 - Dementia in other diseases classified elsewhere, unspecified severity, without behavioral disturbance, psychotic disturbance, mood disturbance, and anxiety Assessment and Plan: August [birth year] 58 years old woman with relative young age onset at Alzheimer dementia but overall clinical picture is affected by significant depression, which continues to be the predominant feature of for clinical picture. Conventional dementia medicines such as donepezil or memantine can be tried but usually do not make significant difference. I would suggest memantine 10 mg twice a day and donepezil 10 mg daily. Recently a new dementia at drug for Alzheimer was approved but only for relatively mild dementia or mild cognitive impairment type of patients. She would not qualify for that drug. 10/18 Patient sitting in chair in the day room, head leaning over to 1 side, resting. When asked how she is doing she says that she has diabetes and that she takes meds for that. 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 Staff reports no changes in behavior but seems to have more frequent lucid moments. 10/27 continue tx. hold adderall due to increase irritability now that she is covid positive. 10/29: symptomatic of COVID - URI Sx. VSS. no change in mental health presentation. continue current mgmt. 10/30: continues laid low by COVID. psych presentation essentially unchanged. continue current mgmt, monitor VS. 10/31 continue tx. 11/05 CTP no change 11/06/23 - CTP Plan 1. Continue with other oral Zoloft and other psychotropics. 2. Waiting for placement. 3. Start Zyprexa 5 mg p.o. q.h.s. to target paranoia that started after she got COVID. Plan Plan continue with same treatment Reason for continued inpatient stay Substantial Risk for: inability to function, rapid decompensation and med/psych decompensation Time Spent With Patient Time: Total time managing care of this patient today _20___ minutes.
[2023-11-07 18:59] VITALS: BP 145/70; PULSE 73; RESP 18; TEMP 36.9; O2SAT 100
[2023-11-07] MEDS: traZODone HCL 50 MG TABLET PO (20:54)
[2023-11-07] MEDS: Sennosides 8.6 MG TABLET 17.2 MG PO (20:54)
[2023-11-07] MEDS: OLANZapine 5 MG TABLET PO (20:54)
[2023-11-07 21:00] LABS: Glucose, Whole Blood 217 mg/dL (60-115)
[2023-11-08 06:22] LABS: Glucose, Whole Blood 133 mg/dL (60-115)
[2023-11-08 08:00] VITALS: BP 145/65; PULSE 60; RESP 18; TEMP 36.4; O2SAT 98
[2023-11-08] MEDS: Insulin Glargine,Hum.rec.anlog 100 UNIT/ML 10 ML VIAL 6 UNIT SUBCUT (08:39)
[2023-11-08] MEDS: Sertraline HCL 100 MG TABLET 200 MG PO (08:40)
[2023-11-08] MEDS: Memantine HCl 10 MG TABLET PO ×2 (08:40→22:09)
[2023-11-08] MEDS: Docusate Sodium 100 MG CAPSULE PO ×2 (08:40→22:09)
[2023-11-08] MEDS: Magnesium Oxide 400 MG TABLET PO ×2 (08:41→17:44)
[2023-11-08] MEDS: Nystatin Cream 15 GM TUBE 1 APPL TOPICAL ×2 (08:46→22:10)
[2023-11-08] MEDS: polyethylene glycoL 3350 17 GM POWD.PACK PO (11:47)
--- NOTE | 2023-11-08 15:05 | HO.PSYCHPN ---
Subjective Subjective Date of Service: 11/08/23 Reason For Visit: hallucinations confusion Subjective Notes: Conditional Voluntary Interim History: The nursing staff reported the patient had been compliant with treatment no changes in her mental status. No evidence of hallucinations. Most likely the psychotic episode was in correlation with COVID. On interview the patient denies new symptoms, waiting for placement Mental Status Exam Mental Status Exam Patient Appearance: Appropriate Patient Orientation: Person and Situation Level of Consciousness: Awake Patient Behavior: Guarded Mood Description: Withdrawn Affect Description: Constricted Patient Cognition Impaired: Yes Ability to Follow Directions: Good Speech Pattern: Impoverished Hallucinations: None Delusions: Paranoid Ideation Thought Process: Distracted Thought Content: positive for [place] and positive for Poverty of Content Judgement: Poor Diagnostics Vital Signs (24Hr): Vital Signs - 24 hr 11/07/23 18:59 11/08/23 08:00 Temperature 98.5 F 97.6 F Pulse Rate 73 60 Respiratory Rate 18 18 Blood Pressure 145/70 H 145/65 H Pulse Oximetry 100 98 Oxygen Delivery Method Room Air BMI result Body Mass Index 26.3 Labs 09/04/23 07:52 10/26/23 08:14 Labs: Laboratory Results - last 48 hr 11/06/23 11/07/23 11/07/23 19:39 06:02 20:43 POC Glucose 155 H 161 H 217 H 11/08/23 05:55 POC Glucose 133 H Imaging Radiology Impressions: ITS Impressions Brain MRI 04/03/23 15:30 IMPRESSION: No acute infarct, mass lesion, intracranial hemorrhage, or evidence of hydrocephalus. Mild nonspecific T2/FLAIR hyperintensity in the cerebral white matter and danny presumably on the basis of chronic microangiopathy. Cervical Spine CT 07/03/23 20:12 IMPRESSION: No acute findings within the cervical spine. The cervical central canal is not well assessed on this CT due to artifact. If weakness persists, a cervical spine MRI would be more sensitive in assessment. Medications Medications Current Medications Acetaminophen (Acetaminophen 325 Mg Tablet) 650 mg PO Q6H PRN PRN Reason: Pain, Mild (Pain Scale 1-3) Last Admin: 11/04/23 21:21 Dose: 650 mg Amphetamine/Dextroamphetamine (Amphetamine Mixed Salts 10 Mg Tablet) 5 mg PO BID@0800,1700 [facility] Last Admin: 10/27/23 08:55 Dose: 5 mg Bisacodyl (Bisacodyl 5 Mg Tablet.) 10 mg PO DAILY PRN PRN Reason: Constipation Last Admin: 10/13/23 23:19 Dose: 10 mg Docusate Sodium (Docusate Sodium 100 Mg Capsule) 100 mg PO BID [facility] Last Admin: 11/08/23 08:40 Dose: 100 mg Guaifenesin (Guaifenesin La 600 Mg Tab.Er.12h) 600 mg PO BID PRN PRN Reason: Cough Last Admin: 11/02/23 21:54 Dose: 600 mg Insulin Glargine (Insulin Glargine,Hum.Rec.Anlog 100 Unit/Ml 10 Ml Vial) 6 unit SUBCUT DAILY [facility] Last Admin: 11/08/23 08:39 Dose: 6 unit Magnesium Oxide (Magnesium Oxide 400 Mg Tablet) 400 mg PO BIDPC [facility] Last Admin: 11/08/23 08:41 Dose: 400 mg Memantine (Memantine Hcl 10 Mg Tablet) 10 mg PO BID [facility] Last Admin: 11/08/23 08:40 Dose: 10 mg Nystatin (Nystatin Cream 15 Gm Tube) 1 appl TOPICAL BID [facility]; Protocol Last Admin: 11/08/23 08:46 Dose: 1 appl Olanzapine (Olanzapine 2.5 Mg Tablet) 2.5 mg PO Q4H PRN PRN Reason: agitation Last Admin: 11/06/23 23:37 Dose: 2.5 mg Olanzapine (Olanzapine 5 Mg Tablet) 5 mg PO BEDTIME [facility] Last Admin: 11/07/23 20:54 Dose: 5 mg Polyethylene Glycol (Polyethylene Glycol 3350 17 Gm Powd.Pack) 17 gm PO DAILY [facility] Last Admin: 11/08/23 11:47 Dose: 17 gm Senna (Sennosides 8.6 Mg Tablet) 17.2 mg PO BEDTIME [facility] Last Admin: 11/07/23 20:54 Dose: 17.2 mg Sertraline HCl (Sertraline Hcl 100 Mg Tablet) 200 mg PO DAILY [facility] Last Admin: 11/08/23 08:40 Dose: 200 mg Trazodone HCl (Trazodone Hcl 50 Mg Tablet) 50 mg PO BEDTIME MRX1 PRN PRN Reason: Sleep Last Admin: 11/07/23 20:54 Dose: 50 mg Allergies Allergies Allergy/AdvReac Type Severity Reaction Status Date / Time No Known Allergies Allergy Verified 03/23/23 18:13 Assessment & Plan Assessment & Plan (1) Alzheimer's dementia: Status: Acute Code(s): G30.9 - Alzheimer's disease, unspecified; F02.80 - Dementia in other diseases classified elsewhere, unspecified severity, without behavioral disturbance, psychotic disturbance, mood disturbance, and anxiety Assessment and Plan: August 24 58 years old woman with relative young age onset at Alzheimer dementia but overall clinical picture is affected by significant depression, which continues to be the predominant feature of for clinical picture. Conventional dementia medicines such as donepezil or memantine can be tried but usually do not make significant difference. I would suggest memantine 10 mg twice a day and donepezil 10 mg daily. Recently a new dementia at drug for Alzheimer was approved but only for relatively mild dementia or mild cognitive impairment type of patients. She would not qualify for that drug. 10/18 Patient sitting in chair in the day room, head leaning over to 1 side, resting. When asked how she is doing she says that she has diabetes and that she takes meds for that. 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 Staff reports no changes in behavior but seems to have more frequent lucid moments. 10/27 continue tx. hold adderall due to increase irritability now that she is covid positive. 10/29: symptomatic of COVID - URI Sx. VSS. no change in mental health presentation. continue current mgmt. 10/30: continues laid low by COVID. psych presentation essentially unchanged. continue current mgmt, monitor VS. 10/31 continue tx. 11/05 CTP no change 11/06/23 - CTP Plan 1. Continue with other oral Zoloft and other psychotropics. 2. Waiting for placement. 3. Start Zyprexa 5 mg p.o. q.h.s. to target paranoia that started after she got COVID. Plan Plan continue with same treatment Reason for continued inpatient stay Substantial Risk for: inability to function, rapid decompensation and med/psych decompensation Time Spent With Patient Time: Total time managing care of this patient today __20__ minutes.
[2023-11-08 18:00] VITALS: BP 136/63; PULSE 84; RESP 18; TEMP 36.6; O2SAT 97
[2023-11-08] MEDS: Sennosides 8.6 MG TABLET 17.2 MG PO (22:09)
[2023-11-08] MEDS: OLANZapine 5 MG TABLET PO (22:09)
[2023-11-08] MEDS: traZODone HCL 50 MG TABLET PO ×2 (22:09→23:04)
[2023-11-08] MEDS: OLANZapine 2.5 MG TABLET PO (23:04)
[2023-11-09] MEDS: Acetaminophen 325 MG TABLET 650 MG PO ×2 (02:50→21:49)
[2023-11-09 07:00] VITALS: BMI 27.7
[2023-11-09 09:57] VITALS: BP 143/68; PULSE 74; RESP 16; TEMP 36.7; O2SAT 95
[2023-11-09] MEDS: Magnesium Oxide 400 MG TABLET PO ×2 (09:58→16:05)
[2023-11-09] MEDS: Insulin Glargine,Hum.rec.anlog 100 UNIT/ML 10 ML VIAL 6 UNIT SUBCUT (09:58)
[2023-11-09] MEDS: Sertraline HCL 100 MG TABLET 200 MG PO (09:58)
[2023-11-09] MEDS: Memantine HCl 10 MG TABLET PO ×2 (09:58→21:50)
[2023-11-09] MEDS: polyethylene glycoL 3350 17 GM POWD.PACK PO (09:58)
[2023-11-09] MEDS: Docusate Sodium 100 MG CAPSULE PO ×2 (09:58→21:50)
[2023-11-09] MEDS: Nystatin Cream 15 GM TUBE 1 APPL TOPICAL ×2 (10:10→21:55)
--- NOTE | 2023-11-09 14:48 | HO.PSYCHPN ---
Subjective Subjective Date of Service: 11/09/23 Reason For Visit: hallucinations confusion Subjective Notes: Conditional Voluntary Interim History: The nursing staff reported the patient no changes in her mental status, she was crying last night received p.r.n. Ativan with for improvement. On interview the patient denies new symptoms, waiting for placement. Mental Status Exam Mental Status Exam Patient Appearance: Appropriate Patient Orientation: Person and Situation Level of Consciousness: Awake and Appropriate Patient Behavior: Guarded and Cooperative Mood Description: Withdrawn Affect Description: Constricted Patient Cognition Impaired: Yes Ability to Follow Directions: Good Speech Pattern: Clear Hallucinations: None Delusions: Not Present Thought Process: Distracted and Evasive Thought Content: positive for [place] and positive for Poverty of Content Judgement: Fair Diagnostics Vital Signs (24Hr): Vital Signs - 24 hr 11/08/23 18:00 11/09/23 09:57 Temperature 97.8 F 98.1 F Pulse Rate 84 74 Respiratory Rate 18 16 Blood Pressure 136/63 143/68 H Pulse Oximetry 97 95 Oxygen Delivery Method Room Air Room Air BMI result Body Mass Index 27.7 Labs 09/04/23 07:52 10/26/23 08:14 Labs: Laboratory Results - last 48 hr 11/07/23 11/08/23 11/08/23 20:43 05:55 19:50 POC Glucose 217 H 133 H 316 H 11/09/23 06:45 POC Glucose 154 H Imaging Radiology Impressions: ITS Impressions Brain MRI 04/03/23 15:30 IMPRESSION: No acute infarct, mass lesion, intracranial hemorrhage, or evidence of hydrocephalus. Mild nonspecific T2/FLAIR hyperintensity in the cerebral white matter and danny presumably on the basis of chronic microangiopathy. Cervical Spine CT 07/03/23 20:12 IMPRESSION: No acute findings within the cervical spine. The cervical central canal is not well assessed on this CT due to artifact. If weakness persists, a cervical spine MRI would be more sensitive in assessment. Medications Medications Current Medications Acetaminophen (Acetaminophen 325 Mg Tablet) 650 mg PO Q6H PRN PRN Reason: Pain, Mild (Pain Scale 1-3) Last Admin: 11/09/23 02:50 Dose: 650 mg Amphetamine/Dextroamphetamine (Amphetamine Mixed Salts 10 Mg Tablet) 5 mg PO BID@0800,1700 [facility] Last Admin: 10/27/23 08:55 Dose: 5 mg Bisacodyl (Bisacodyl 5 Mg Tablet.) 10 mg PO DAILY PRN PRN Reason: Constipation Last Admin: 10/13/23 23:19 Dose: 10 mg Docusate Sodium (Docusate Sodium 100 Mg Capsule) 100 mg PO BID [facility] Last Admin: 11/09/23 09:58 Dose: 100 mg Guaifenesin (Guaifenesin La 600 Mg Tab.Er.12h) 600 mg PO BID PRN PRN Reason: Cough Last Admin: 11/02/23 21:54 Dose: 600 mg Insulin Glargine (Insulin Glargine,Hum.Rec.Anlog 100 Unit/Ml 10 Ml Vial) 6 unit SUBCUT DAILY [facility] Last Admin: 11/09/23 09:58 Dose: 6 unit Magnesium Oxide (Magnesium Oxide 400 Mg Tablet) 400 mg PO BIDPC [facility] Last Admin: 11/09/23 09:58 Dose: 400 mg Memantine (Memantine Hcl 10 Mg Tablet) 10 mg PO BID [facility] Last Admin: 11/09/23 09:58 Dose: 10 mg Nystatin (Nystatin Cream 15 Gm Tube) 1 appl TOPICAL BID [facility]; Protocol Last Admin: 11/09/23 10:10 Dose: 1 appl Olanzapine (Olanzapine 2.5 Mg Tablet) 2.5 mg PO Q4H PRN PRN Reason: agitation Last Admin: 11/08/23 23:04 Dose: 2.5 mg Olanzapine (Olanzapine 5 Mg Tablet) 5 mg PO BEDTIME [facility] Last Admin: 11/08/23 22:09 Dose: 5 mg Polyethylene Glycol (Polyethylene Glycol 3350 17 Gm Powd.Pack) 17 gm PO DAILY [facility] Last Admin: 11/09/23 09:58 Dose: 17 gm Senna (Sennosides 8.6 Mg Tablet) 17.2 mg PO BEDTIME [facility] Last Admin: 11/08/23 22:09 Dose: 17.2 mg Sertraline HCl (Sertraline Hcl 100 Mg Tablet) 200 mg PO DAILY [facility] Last Admin: 11/09/23 09:58 Dose: 200 mg Trazodone HCl (Trazodone Hcl 50 Mg Tablet) 50 mg PO BEDTIME MRX1 PRN PRN Reason: Sleep Last Admin: 11/08/23 23:04 Dose: 50 mg Allergies Allergies Allergy/AdvReac Type Severity Reaction Status Date / Time No Known Allergies Allergy Verified 03/23/23 18:13 Assessment & Plan Assessment & Plan (1) Alzheimer's dementia: Status: Acute Code(s): G30.9 - Alzheimer's disease, unspecified; F02.80 - Dementia in other diseases classified elsewhere, unspecified severity, without behavioral disturbance, psychotic disturbance, mood disturbance, and anxiety Assessment and Plan: August 24 58 years old woman with relative young age onset at Alzheimer dementia but overall clinical picture is affected by significant depression, which continues to be the predominant feature of for clinical picture. Conventional dementia medicines such as donepezil or memantine can be tried but usually do not make significant difference. I would suggest memantine 10 mg twice a day and donepezil 10 mg daily. Recently a new dementia at drug for Alzheimer was approved but only for relatively mild dementia or mild cognitive impairment type of patients. She would not qualify for that drug. 10/18 Patient sitting in chair in the day room, head leaning over to 1 side, resting. When asked how she is doing she says that she has diabetes and that she takes meds for that. 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 Staff reports no changes in behavior but seems to have more frequent lucid moments. 10/27 continue tx. hold adderall due to increase irritability now that she is covid positive. 10/29: symptomatic of COVID - URI Sx. VSS. no change in mental health presentation. continue current mgmt. 10/30: continues laid low by COVID. psych presentation essentially unchanged. continue current mgmt, monitor VS. 10/31 continue tx. 11/05 CTP no change 11/06/23 - CTP Plan 1. Continue with other oral Zoloft and other psychotropics. 2. Waiting for placement. 3. Start Zyprexa 5 mg p.o. q.h.s. to target paranoia that started after she got COVID. Plan Plan continue with same treatment Reason for continued inpatient stay Substantial Risk for: inability to function, rapid decompensation and med/psych decompensation Time Spent With Patient Time: Total time managing care of this patient today __20__ minutes.
[2023-11-09 18:00] VITALS: BP 126/67; PULSE 69; RESP 18; TEMP 36.4; O2SAT 97
[2023-11-09] MEDS: OLANZapine 5 MG TABLET PO (21:49)
[2023-11-09] MEDS: Sennosides 8.6 MG TABLET 17.2 MG PO (21:49)
[2023-11-09] MEDS: traZODone HCL 50 MG TABLET PO (21:50)
[2023-11-10 06:00] VITALS: BP 119/60; PULSE 72; RESP 16; TEMP 37; O2SAT 96
[2023-11-10] MEDS: Sertraline HCL 100 MG TABLET 200 MG PO (08:36)
[2023-11-10] MEDS: Docusate Sodium 100 MG CAPSULE PO ×2 (08:36→21:18)
[2023-11-10] MEDS: Insulin Glargine,Hum.rec.anlog 100 UNIT/ML 10 ML VIAL 6 UNIT SUBCUT (08:36)
[2023-11-10] MEDS: Magnesium Oxide 400 MG TABLET PO ×2 (08:36→18:12)
[2023-11-10] MEDS: Memantine HCl 10 MG TABLET PO ×2 (08:36→21:18)
[2023-11-10] MEDS: polyethylene glycoL 3350 17 GM POWD.PACK PO (08:37)
--- NOTE | 2023-11-10 09:20 | HO.PSYCHPN ---
Subjective Subjective Date of Service: 11/10/23 Reason For Visit: hallucinations confusion Subjective Notes: Conditional Voluntary Interim History: The nursing staff reported the patient had been compliant with treatment, no changes in her mental status. On interview the patient denies new symptoms, waiting for placement. Mental Status Exam Mental Status Exam Patient Appearance: Appropriate Patient Orientation: Person and Situation Level of Consciousness: Awake and Appropriate Patient Behavior: Guarded and Passive Mood Description: Calm Affect Description: Constricted Patient Cognition Impaired: Yes Ability to Follow Directions: Good Speech Pattern: Clear Hallucinations: None Delusions: Not Present Thought Process: Distracted and Evasive Thought Content: positive for [place] Judgement: Fair Diagnostics Vital Signs (24Hr): Vital Signs - 24 hr 11/09/23 09:57 11/09/23 18:00 11/10/23 06:00 Temperature 98.1 F 97.6 F 98.6 F Pulse Rate 74 69 72 Respiratory Rate 16 18 16 Blood Pressure 143/68 H 126/67 119/60 Pulse Oximetry 95 97 96 Oxygen Delivery Method Room Air Room Air Room Air BMI result Body Mass Index 27.7 Labs 09/04/23 07:52 10/26/23 08:14 Labs: Laboratory Results - last 48 hr 11/08/23 11/09/23 11/09/23 19:50 06:45 19:50 POC Glucose 316 H 154 H 219 H 11/10/23 06:15 POC Glucose 131 H Imaging Radiology Impressions: ITS Impressions Brain MRI 04/03/23 15:30 IMPRESSION: No acute infarct, mass lesion, intracranial hemorrhage, or evidence of hydrocephalus. Mild nonspecific T2/FLAIR hyperintensity in the cerebral white matter and danny presumably on the basis of chronic microangiopathy. Cervical Spine CT 07/03/23 20:12 IMPRESSION: No acute findings within the cervical spine. The cervical central canal is not well assessed on this CT due to artifact. If weakness persists, a cervical spine MRI would be more sensitive in assessment. Medications Medications Current Medications Acetaminophen (Acetaminophen 325 Mg Tablet) 650 mg PO Q6H PRN PRN Reason: Pain, Mild (Pain Scale 1-3) Last Admin: 11/09/23 21:49 Dose: 650 mg Amphetamine/Dextroamphetamine (Amphetamine Mixed Salts 10 Mg Tablet) 5 mg PO BID@0800,1700 B[facility] Last Admin: 10/27/23 08:55 Dose: 5 mg Bisacodyl (Bisacodyl 5 Mg Tablet.Dr) 10 mg PO DAILY PRN PRN Reason: Constipation Last Admin: 10/13/23 23:19 Dose: 10 mg Docusate Sodium (Docusate Sodium 100 Mg Capsule) 100 mg PO BID [facility] Last Admin: 11/10/23 08:36 Dose: 100 mg Guaifenesin (Guaifenesin La 600 Mg Tab.Er.12h) 600 mg PO BID PRN PRN Reason: Cough Last Admin: 11/02/23 21:54 Dose: 600 mg Insulin Glargine (Insulin Glargine,Hum.Rec.Anlog 100 Unit/Ml 10 Ml Vial) 6 unit SUBCUT DAILY [facility] Last Admin: 11/10/23 08:36 Dose: 6 unit Magnesium Oxide (Magnesium Oxide 400 Mg Tablet) 400 mg PO BIDPC [facility] Last Admin: 11/10/23 08:36 Dose: 400 mg Memantine (Memantine Hcl 10 Mg Tablet) 10 mg PO BID [facility] Last Admin: 11/10/23 08:36 Dose: 10 mg Nystatin (Nystatin Cream 15 Gm Tube) 1 appl TOPICAL BID [facility]; Protocol Last Admin: 11/09/23 21:55 Dose: 1 appl Olanzapine (Olanzapine 2.5 Mg Tablet) 2.5 mg PO Q4H PRN PRN Reason: agitation Last Admin: 11/09/23 16:05 Dose: 2.5 mg Olanzapine (Olanzapine 5 Mg Tablet) 5 mg PO BEDTIME [facility] Last Admin: 11/09/23 21:49 Dose: 5 mg Polyethylene Glycol (Polyethylene Glycol 3350 17 Gm Powd.Pack) 17 gm PO DAILY [facility] Last Admin: 11/10/23 08:37 Dose: 17 gm Senna (Sennosides 8.6 Mg Tablet) 17.2 mg PO BEDTIME [facility] Last Admin: 11/09/23 21:49 Dose: 17.2 mg Sertraline HCl (Sertraline Hcl 100 Mg Tablet) 200 mg PO DAILY [facility] Last Admin: 11/10/23 08:36 Dose: 200 mg Trazodone HCl (Trazodone Hcl 50 Mg Tablet) 50 mg PO BEDTIME MRX1 PRN PRN Reason: Sleep Last Admin: 11/09/23 21:50 Dose: 50 mg Allergies Allergies Allergy/AdvReac Type Severity Reaction Status Date / Time No Known Allergies Allergy Verified 03/23/23 18:13 Assessment & Plan Assessment & Plan (1) Alzheimer's dementia: Status: Acute Code(s): G30.9 - Alzheimer's disease, unspecified; F02.80 - Dementia in other diseases classified elsewhere, unspecified severity, without behavioral disturbance, psychotic disturbance, mood disturbance, and anxiety Assessment and Plan: August [birth year] 58 years old woman with relative young age onset at Alzheimer dementia but overall clinical picture is affected by significant depression, which continues to be the predominant feature of for clinical picture. Conventional dementia medicines such as donepezil or memantine can be tried but usually do not make significant difference. I would suggest memantine 10 mg twice a day and donepezil 10 mg daily. Recently a new dementia at drug for Alzheimer was approved but only for relatively mild dementia or mild cognitive impairment type of patients. She would not qualify for that drug. 10/18 Patient sitting in chair in the day room, head leaning over to 1 side, resting. When asked how she is doing she says that she has diabetes and that she takes meds for that. 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 Staff reports no changes in behavior but seems to have more frequent lucid moments. 10/27 continue tx. hold adderall due to increase irritability now that she is covid positive. 10/29: symptomatic of COVID - URI Sx. VSS. no change in mental health presentation. continue current mgmt. 10/30: continues laid low by COVID. psych presentation essentially unchanged. continue current mgmt, monitor VS. 10/31 continue tx. 11/05 CTP no change 11/06/23 - CTP Plan 1. Continue with other oral Zoloft and other psychotropics. 2. Waiting for placement. 3. Start Zyprexa 5 mg p.o. q.h.s. to target paranoia that started after she got COVID. Plan Plan continue with same treatment Reason for continued inpatient stay Substantial Risk for: inability to function, rapid decompensation and med/psych decompensation Time Spent With Patient Time: Total time managing care of this patient today __20__ minutes.
[2023-11-10 18:00] VITALS: BP 127/80; PULSE 90; RESP 18; TEMP 37.2; O2SAT 97
[2023-11-10] MEDS: Sennosides 8.6 MG TABLET 17.2 MG PO (21:18)
[2023-11-10] MEDS: OLANZapine 5 MG TABLET PO (21:19)
[2023-11-10] MEDS: traZODone HCL 50 MG TABLET PO (21:58)
[2023-11-10] MEDS: Acetaminophen 325 MG TABLET 650 MG PO (23:59)
[2023-11-11] MEDS: traZODone HCL 50 MG TABLET PO ×3 (00:48→21:54)
[2023-11-11 10:10] VITALS: BP 127/60; PULSE 67; RESP 16; TEMP 36.5; O2SAT 94
[2023-11-11] MEDS: Insulin Glargine,Hum.rec.anlog 100 UNIT/ML 10 ML VIAL 6 UNIT SUBCUT (10:11)
[2023-11-11] MEDS: polyethylene glycoL 3350 17 GM POWD.PACK PO (11:57)
[2023-11-11] MEDS: Magnesium Oxide 400 MG TABLET PO ×2 (11:57→17:16)
[2023-11-11] MEDS: Docusate Sodium 100 MG CAPSULE PO ×2 (11:57→20:41)
[2023-11-11] MEDS: Memantine HCl 10 MG TABLET PO ×2 (11:57→20:41)
[2023-11-11] MEDS: Sertraline HCL 100 MG TABLET 200 MG PO (11:57)
--- NOTE | 2023-11-11 12:34 | HO.PSYCHPN ---
Subjective Subjective Date of Service: 11/11/23 Reason For Visit: hallucinations confusion Subjective Notes: Conditional Voluntary Healthcare Proxy: Yes Interim History: Met with patient. Discussed with Nursing. Chart reviewed. Overall did have some difficulty sleeping last night and been more paranoid. No management issues though. Accepting medications. Today very minimal engagement with check writer salesperson, stating she felt okay and did not need any help. Medication Compliance: Yes Side effects from medications: No Attending Groups: No Review of Systems Acute medical concerns: No Review of Systems Review of Systems Unremarkable Mental Status Exam Mental Status Exam Patient Appearance: Appropriate Patient Orientation: Person and Situation Level of Consciousness: Awake and Appropriate Patient Behavior: Guarded and Passive Mood Description: Calm Affect Description: Constricted Patient Cognition Impaired: Yes Ability to Follow Directions: Good Speech Pattern: Clear Hallucinations: None Delusions: Not Present Thought Process: Distracted and Evasive Thought Content: positive for [place] Judgement: Fair Diagnostics Vital Signs (24Hr): Vital Signs - 24 hr 11/10/23 18:00 11/11/23 10:10 Temperature 98.9 F 97.7 F Pulse Rate 90 67 Respiratory Rate 18 16 Blood Pressure 127/80 127/60 Pulse Oximetry 97 94 Oxygen Delivery Method Room Air Room Air BMI result Body Mass Index 27.7 Labs 09/04/23 07:52 10/26/23 08:14 Labs: Laboratory Results - last 48 hr 11/09/23 11/10/23 11/10/23 19:50 06:15 21:26 POC Glucose 219 H 131 H 199 H 11/11/23 06:25 POC Glucose 152 H Imaging Radiology Impressions: ITS Impressions Brain MRI 04/03/23 15:30 IMPRESSION: No acute infarct, mass lesion, intracranial hemorrhage, or evidence of hydrocephalus. Mild nonspecific T2/FLAIR hyperintensity in the cerebral white matter and danny presumably on the basis of chronic microangiopathy. Cervical Spine CT 07/03/23 20:12 IMPRESSION: No acute findings within the cervical spine. The cervical central canal is not well assessed on this CT due to artifact. If weakness persists, a cervical spine MRI would be more sensitive in assessment. Medications Medications Current Medications Acetaminophen (Acetaminophen 325 Mg Tablet) 650 mg PO Q6H PRN PRN Reason: Pain, Mild (Pain Scale 1-3) Last Admin: 11/10/23 23:59 Dose: 650 mg Amphetamine/Dextroamphetamine (Amphetamine Mixed Salts 10 Mg Tablet) 5 mg PO BID@0800,1700 [facility] Last Admin: 10/27/23 08:55 Dose: 5 mg Bisacodyl (Bisacodyl 5 Mg Tablet.Dr) 10 mg PO DAILY PRN PRN Reason: Constipation Last Admin: 10/13/23 23:19 Dose: 10 mg Docusate Sodium (Docusate Sodium 100 Mg Capsule) 100 mg PO BID [facility] Last Admin: 11/11/23 11:57 Dose: 100 mg Guaifenesin (Guaifenesin La 600 Mg Tab.Er.12h) 600 mg PO BID PRN PRN Reason: Cough Last Admin: 11/02/23 21:54 Dose: 600 mg Insulin Glargine (Insulin Glargine,Hum.Rec.Anlog 100 Unit/Ml 10 Ml Vial) 6 unit SUBCUT DAILY [facility] Last Admin: 11/11/23 10:11 Dose: 6 unit Magnesium Oxide (Magnesium Oxide 400 Mg Tablet) 400 mg PO BIDPC [facility] Last Admin: 11/11/23 11:57 Dose: 400 mg Memantine (Memantine Hcl 10 Mg Tablet) 10 mg PO BID [facility] Last Admin: 11/11/23 11:57 Dose: 10 mg Nystatin (Nystatin Cream 15 Gm Tube) 1 appl TOPICAL BID [facility]; Protocol Last Admin: 11/11/23 12:04 Dose: Not Given Olanzapine (Olanzapine 2.5 Mg Tablet) 2.5 mg PO Q4H PRN PRN Reason: agitation Last Admin: 11/11/23 00:48 Dose: 2.5 mg Olanzapine (Olanzapine 5 Mg Tablet) 5 mg PO BEDTIME [facility] Last Admin: 11/10/23 21:19 Dose: 5 mg Polyethylene Glycol (Polyethylene Glycol 3350 17 Gm Powd.Pack) 17 gm PO DAILY [facility] Last Admin: 11/11/23 11:57 Dose: 17 gm Senna (Sennosides 8.6 Mg Tablet) 17.2 mg PO BEDTIME [facility] Last Admin: 11/10/23 21:18 Dose: 17.2 mg Sertraline HCl (Sertraline Hcl 100 Mg Tablet) 200 mg PO DAILY [facility] Last Admin: 11/11/23 11:57 Dose: 200 mg Trazodone HCl (Trazodone Hcl 50 Mg Tablet) 50 mg PO BEDTIME MRX1 PRN PRN Reason: Sleep Last Admin: 11/11/23 00:48 Dose: 50 mg Allergies Allergies Allergy/AdvReac Type Severity Reaction Status Date / Time No Known Allergies Allergy Verified 03/23/23 18:13 Assessment & Plan Assessment & Plan (1) Alzheimer's dementia: Status: Acute Code(s): G30.9 - Alzheimer's disease, unspecified; F02.80 - Dementia in other diseases classified elsewhere, unspecified severity, without behavioral disturbance, psychotic disturbance, mood disturbance, and anxiety Assessment and Plan: August 24 58 years old woman with relative young age onset at Alzheimer dementia but overall clinical picture is affected by significant depression, which continues to be the predominant feature of for clinical picture. Conventional dementia medicines such as donepezil or memantine can be tried but usually do not make significant difference. I would suggest memantine 10 mg twice a day and donepezil 10 mg daily. Recently a new dementia at drug for Alzheimer was approved but only for relatively mild dementia or mild cognitive impairment type of patients. She would not qualify for that drug. 10/18 Patient sitting in chair in the day room, head leaning over to 1 side, resting. When asked how she is doing she says that she has diabetes and that she takes meds for that. She asks if check writer salesperson will be down here again. Staff reports no changes in behavior but seems to have more frequent lucid moments. 10/27 continue tx. hold adderall due to increase irritability now that she is covid positive. 10/29: symptomatic of COVID - URI Sx. VSS. no change in mental health presentation. continue current mgmt. 10/30: continues laid low by COVID. psych presentation essentially unchanged. continue current mgmt, monitor VS. 10/31 continue tx. 11/05 CTP no change 11/06/23 - CTP 11/11/2023: No changes Plan 1. Continue with other oral Zoloft and other psychotropics. 2. Waiting for placement. 3. Start Zyprexa 5 mg p.o. q.h.s. to target paranoia that started after she got COVID. Plan Plan continue with same treatment Reason for continued inpatient stay Substantial Risk for: inability to function Time Spent With Patient Time: Total time managing care of this patient today ____ minutes.
[2023-11-11 18:00] VITALS: BP 121/63; PULSE 86; RESP 18; TEMP 36.6; O2SAT 96
[2023-11-11] MEDS: Sennosides 8.6 MG TABLET 17.2 MG PO (20:42)
[2023-11-11] MEDS: Acetaminophen 325 MG TABLET 650 MG PO (20:42)
[2023-11-11] MEDS: OLANZapine 5 MG TABLET PO (20:43)
[2023-11-12 10:06] VITALS: BP 154/75; PULSE 61; RESP 17; TEMP 36.4; O2SAT 95
[2023-11-12] MEDS: Memantine HCl 10 MG TABLET PO ×2 (10:14→21:02)
[2023-11-12] MEDS: Magnesium Oxide 400 MG TABLET PO (10:14)
[2023-11-12] MEDS: polyethylene glycoL 3350 17 GM POWD.PACK PO (10:14)
[2023-11-12] MEDS: Sertraline HCL 100 MG TABLET 200 MG PO (10:14)
[2023-11-12] MEDS: Docusate Sodium 100 MG CAPSULE PO ×2 (10:14→21:02)
[2023-11-12] MEDS: Insulin Glargine,Hum.rec.anlog 100 UNIT/ML 10 ML VIAL 6 UNIT SUBCUT (10:17)
--- NOTE | 2023-11-12 10:32 | HO.PSYCHPN ---
Subjective Subjective Date of Service: 11/12/23 Reason For Visit: hallucinations confusion Medical Problems Affecting Mental Status: No Interim History: Met with patient. Discussed with Nursing. Chart reviewed. Still some sleep difficulty and slightly more paranoia. Adherent with treatment and medications. Again minimal engagement with health science writer today. No overt depression, agitated or psychosis voice. Was seen walking down the hallway with staff support later in the day.. Medication Compliance: Yes Side effects from medications: No Attending Groups: No Review of Systems Acute medical concerns: No Review of Systems Review of Systems Unremarkable Mental Status Exam Mental Status Exam Narrative: In room. Hospital clothing. Self-care or poor today. Alert. Not engaging with interview. Diagnostics Vital Signs (24Hr): Vital Signs - 24 hr 11/11/23 18:00 11/12/23 10:06 Temperature 98 F 97.5 F Pulse Rate 86 61 Respiratory Rate 18 17 Blood Pressure 121/63 154/75 H Pulse Oximetry 96 95 Oxygen Delivery Method Room Air Room Air BMI result Body Mass Index 27.7 Labs 09/04/23 07:52 10/26/23 08:14 Labs: Laboratory Results - last 48 hr 11/10/23 11/11/23 11/11/23 21:26 06:25 20:47 POC Glucose 199 H 152 H 214 H 11/12/23 06:16 POC Glucose 133 H Imaging Radiology Impressions: ITS Impressions Brain MRI 04/03/23 15:30 IMPRESSION: No acute infarct, mass lesion, intracranial hemorrhage, or evidence of hydrocephalus. Mild nonspecific T2/FLAIR hyperintensity in the cerebral white matter and danny presumably on the basis of chronic microangiopathy. Cervical Spine CT 07/03/23 20:12 IMPRESSION: No acute findings within the cervical spine. The cervical central canal is not well assessed on this CT due to artifact. If weakness persists, a cervical spine MRI would be more sensitive in assessment. Medications Medications Current Medications Acetaminophen (Acetaminophen 325 Mg Tablet) 650 mg PO Q6H PRN PRN Reason: Pain, Mild (Pain Scale 1-3) Last Admin: 11/11/23 20:42 Dose: 650 mg Amphetamine/Dextroamphetamine (Amphetamine Mixed Salts 10 Mg Tablet) 5 mg PO BID@0800,1700 BEN Last Admin: 10/27/23 08:55 Dose: 5 mg Bisacodyl (Bisacodyl 5 Mg Tablet.) 10 mg PO DAILY PRN PRN Reason: Constipation Last Admin: 10/13/23 23:19 Dose: 10 mg Docusate Sodium (Docusate Sodium 100 Mg Capsule) 100 mg PO BID [facility] Last Admin: 11/12/23 10:14 Dose: 100 mg Guaifenesin (Guaifenesin La 600 Mg Tab.Er.12h) 600 mg PO BID PRN PRN Reason: Cough Last Admin: 11/02/23 21:54 Dose: 600 mg Insulin Glargine (Insulin Glargine,Hum.Rec.Anlog 100 Unit/Ml 10 Ml Vial) 6 unit SUBCUT DAILY [facility] Last Admin: 11/12/23 10:17 Dose: 6 unit Magnesium Oxide (Magnesium Oxide 400 Mg Tablet) 400 mg PO BIDPC [facility] Last Admin: 11/12/23 10:14 Dose: 400 mg Memantine (Memantine Hcl 10 Mg Tablet) 10 mg PO BID [facility] Last Admin: 11/12/23 10:14 Dose: 10 mg Nystatin (Nystatin Cream 15 Gm Tube) 1 appl TOPICAL BID [facility]; Protocol Last Admin: 11/12/23 10:25 Dose: 1 appl Olanzapine (Olanzapine 2.5 Mg Tablet) 2.5 mg PO Q4H PRN PRN Reason: agitation Last Admin: 11/11/23 21:54 Dose: 2.5 mg Olanzapine (Olanzapine 5 Mg Tablet) 5 mg PO BEDTIME [facility] Last Admin: 11/11/23 20:43 Dose: 5 mg Polyethylene Glycol (Polyethylene Glycol 3350 17 Gm Powd.Pack) 17 gm PO DAILY [facility] Last Admin: 11/12/23 10:14 Dose: 17 gm Senna (Sennosides 8.6 Mg Tablet) 17.2 mg PO BEDTIME [facility] Last Admin: 11/11/23 20:42 Dose: 17.2 mg Sertraline HCl (Sertraline Hcl 100 Mg Tablet) 200 mg PO DAILY [facility] Last Admin: 11/12/23 10:14 Dose: 200 mg Trazodone HCl (Trazodone Hcl 50 Mg Tablet) 50 mg PO BEDTIME MRX1 PRN PRN Reason: Sleep Last Admin: 11/11/23 21:54 Dose: 50 mg Allergies Allergies Allergy/AdvReac Type Severity Reaction Status Date / Time No Known Allergies Allergy Verified 03/23/23 18:13 Assessment & Plan Assessment & Plan (1) Alzheimer's dementia: Status: Acute Code(s): G30.9 - Alzheimer's disease, unspecified; F02.80 - Dementia in other diseases classified elsewhere, unspecified severity, without behavioral disturbance, psychotic disturbance, mood disturbance, and anxiety Assessment and Plan: August 24 58 years old woman with relative young age onset at Alzheimer dementia but overall clinical picture is affected by significant depression, which continues to be the predominant feature of for clinical picture. Conventional dementia medicines such as donepezil or memantine can be tried but usually do not make significant difference. I would suggest memantine 10 mg twice a day and donepezil 10 mg daily. Recently a new dementia at drug for Alzheimer was approved but only for relatively mild dementia or mild cognitive impairment type of patients. She would not qualify for that drug. 10/18 Patient sitting in chair in the day room, head leaning over to 1 side, resting. When asked how she is doing she says that she has diabetes and that she takes meds for that. She asks if health science writer will be down here again. Staff reports no changes in behavior but seems to have more frequent lucid moments. 10/27 continue tx. hold adderall due to increase irritability now that she is covid positive. 10/29: symptomatic of COVID - URI Sx. VSS. no change in mental health presentation. continue current mgmt. 10/30: continues laid low by COVID. psych presentation essentially unchanged. continue current mgmt, monitor VS. 10/31 continue tx. 11/05 CTP no change 11/06/23 - CTP 11/11/2023: No changes 11/12/2023: No changes to current plan Plan 1. Continue with other oral Zoloft and other psychotropics. 2. Waiting for placement. 3. Start Zyprexa 5 mg p.o. q.h.s. to target paranoia that started after she got COVID. Plan Plan continue with same treatment Reason for continued inpatient stay Substantial Risk for: rapid decompensation Time Spent With Patient Time: Total time managing care of this patient today ____ minutes.
--- NOTE | 2023-11-12 14:11 | PC.NURSE ---
Patient noted to have skin tear with some dried up blood on her left ear. Dr. Sanchez notified, left ear cleaned with NS and new order for Bacitracin ointment applied.
[2023-11-12 18:00] VITALS: BP 147/66; PULSE 74; RESP 18; TEMP 36.9; O2SAT 100
[2023-11-12] MEDS: Sennosides 8.6 MG TABLET 17.2 MG PO (21:02)
[2023-11-12] MEDS: Acetaminophen 325 MG TABLET 650 MG PO (21:02)
[2023-11-12] MEDS: traZODone HCL 50 MG TABLET PO (21:02)
[2023-11-13 06:00] VITALS: BP 119/68; PULSE 69; RESP 16; TEMP 36.7; O2SAT 96
[2023-11-13] MEDS: Sertraline HCL 100 MG TABLET 200 MG PO (08:39)
[2023-11-13] MEDS: Memantine HCl 10 MG TABLET PO ×2 (08:39→20:42)
[2023-11-13] MEDS: Insulin Glargine,Hum.rec.anlog 100 UNIT/ML 10 ML VIAL 6 UNIT SUBCUT (08:39)
[2023-11-13] MEDS: Magnesium Oxide 400 MG TABLET PO ×2 (08:39→17:08)
[2023-11-13] MEDS: Docusate Sodium 100 MG CAPSULE PO ×2 (08:39→20:43)
[2023-11-13] MEDS: polyethylene glycoL 3350 17 GM POWD.PACK PO (08:40)
[2023-11-13 08:50] LABS: MANUAL DIFF FLAG NO
[2023-11-13 08:54] LABS: Basophils Percent Auto 0.4 % (0-2); Eosinophils Absolute Auto 0.5 X10*3/uL (0.0-0.4); Eosinophils Percent Auto 6.2 % (0-4); Hematocrit 42.1 % (37.0-47.0); Hemoglobin 13.3 g/dl (12.0-16.0); Imm Gran Abs Auto 0.03 X10*3/uL (0.00-0.03); Imm Gran Pct Auto 0.4 % (0.0-0.4); Lymphocytes Absolute Auto 1.7 X10*3/uL (1.2-4.9); Lymphocytes Percent Auto 23.8 % (20-40); Mean Corpuscular HGB Conc 31.6 g/dl (31.0-35.0); Mean Corpuscular Hemoglobin 26.1 pg (27.0-33.0); Mean Corpuscular Volume 82.5 fL (80.0-98.0); Mean Platelet Volume 10.1 fL (9.4-12.3); Monocytes Absolute Auto 0.6 X10*3/uL (0.1-1.2); Monocytes Percent Auto 7.9 % (2-11); Neutrophils Absolute Auto 4.5 x10*3/uL (2.0-8.3); Neutrophils Percent Auto 61.3 % (45-73); Platelet Count 254 X10*3/uL (160-400); Red Cell Distribution Width 14.7 % (11.0-16.0); White Blood Count 7.3 X10*3/uL (4.8-10.8)
[2023-11-13 09:21] LABS: Anion Gap 13 (12-20); Blood Urea Nitrogen 18 mg/dL (9-16); Calcium 10.1 mg/dL (8.4-10.2); Carbon Dioxide 29 mmol/L (22-29); Chloride 103 mmol/L (96-108); Creatinine Clr Calc Pharmacy 69.6; Estimated Glomerular Filt Rate > 60; Glucose Random 144 mg/dL (60-115); Sodium 141 mmol/L (135-145)
--- NOTE | 2023-11-13 14:06 | HO.PSYCHPN ---
Subjective Subjective Date of Service: 11/13/23 Reason For Visit: hallucinations confusion Subjective Notes: Conditional Voluntary Interim History: The nursing staff reported the patient has been seen reporting to internal stimuli and she was agitated and needed p.r.n. Zyprexa. On interview the patient denies new symptoms looks internally preoccupied. Mental Status Exam Mental Status Exam Patient Appearance: Appropriate Patient Orientation: Person and Situation Level of Consciousness: Awake and Appropriate Patient Behavior: Guarded and Passive Mood Description: Withdrawn Affect Description: Constricted Patient Cognition Impaired: Yes Ability to Follow Directions: Good Speech Pattern: Clear Hallucinations: None Delusions: Paranoid Ideation Thought Process: Distracted and Slowed Thinking Thought Content: positive for [place] and positive for Poverty of Content Judgement: Fair Diagnostics Vital Signs (24Hr): Vital Signs - 24 hr 11/12/23 18:00 11/13/23 06:00 Temperature 98.4 F 98.1 F Pulse Rate 74 69 Respiratory Rate 18 16 Blood Pressure 147/66 H 119/68 Pulse Oximetry 100 96 Oxygen Delivery Method Room Air Room Air BMI result Body Mass Index 27.7 Labs 11/13/23 08:28 11/13/23 08:28 Labs: Laboratory Results - last 48 hr 11/11/23 11/12/23 11/12/23 20:47 06:16 19:50 WBC RBC Hgb Hct MCV MCH MCHC RDW Plt Count MPV Immature Gran % (Auto) Neut % (Auto) Lymph % (Auto) [place] % (Auto) Eos % (Auto) Baso % (Auto) Lymph # (Auto) [place] # (Auto) Eos # (Auto) Baso # (Auto) Abs Immat Gran (auto) Absolute Neuts (auto) Absolute Nucleated RBC Nucleated RBC % (auto) Sodium Potassium Chloride Carbon Dioxide Anion Gap BUN Creatinine Estim Creat Clear Calc Estimated GFR POC Glucose 214 H 133 H 133 H Random Glucose Calcium 11/13/23 11/13/23 06:24 08:28 WBC 7.3 RBC 5.10 Hgb 13.3 Hct 42.1 MCV 82.5 MCH 26.1 L MCHC 31.6 RDW 14.7 Plt Count 254 MPV 10.1 Immature Gran % (Auto) 0.4 Neut % (Auto) 61.3 Lymph % (Auto) 23.8 [place] % (Auto) 7.9 Eos % (Auto) 6.2 H Baso % (Auto) 0.4 Lymph # (Auto) 1.7 [place] # (Auto) 0.6 Eos # (Auto) 0.5 H Baso # (Auto) 0.0 Abs Immat Gran (auto) 0.03 Absolute Neuts (auto) 4.5 Absolute Nucleated RBC 0.000 Nucleated RBC % (auto) 0.0 Sodium 141 Potassium 4.0 Chloride 103 Carbon Dioxide 29 Anion Gap 13 BUN 18 H Creatinine 0.81 Estim Creat Clear Calc 69.6 Estimated GFR > 60 POC Glucose 127 H Random Glucose 144 H Calcium 10.1 Imaging Radiology Impressions: ITS Impressions Brain MRI 04/03/23 15:30 IMPRESSION: No acute infarct, mass lesion, intracranial hemorrhage, or evidence of hydrocephalus. Mild nonspecific T2/FLAIR hyperintensity in the cerebral white matter and danny presumably on the basis of chronic microangiopathy. Cervical Spine CT 07/03/23 20:12 IMPRESSION: No acute findings within the cervical spine. The cervical central canal is not well assessed on this CT due to artifact. If weakness persists, a cervical spine MRI would be more sensitive in assessment. Medications Medications Current Medications Acetaminophen (Acetaminophen 325 Mg Tablet) 650 mg PO Q6H PRN PRN Reason: Pain, Mild (Pain Scale 1-3) Last Admin: 11/12/23 21:02 Dose: 650 mg Amphetamine/Dextroamphetamine (Amphetamine Mixed Salts 10 Mg Tablet) 5 mg PO BID@0800,1700 [facility] Last Admin: 10/27/23 08:55 Dose: 5 mg Bacitracin (Bacitracin Oint 14 Gm Tube) 1 appl TOPICAL BID [facility]; Protocol Stop: 11/17/23 13:14 Last Admin: 11/12/23 21:01 Dose: 1 appl Bisacodyl (Bisacodyl 5 Mg Tablet.Dr) 10 mg PO DAILY PRN PRN Reason: Constipation Last Admin: 10/13/23 23:19 Dose: 10 mg Docusate Sodium (Docusate Sodium 100 Mg Capsule) 100 mg PO BID [facility] Last Admin: 11/13/23 08:39 Dose: 100 mg Guaifenesin (Guaifenesin La 600 Mg Tab.Er.12h) 600 mg PO BID PRN PRN Reason: Cough Last Admin: 11/02/23 21:54 Dose: 600 mg Insulin Glargine (Insulin Glargine,Hum.Rec.Anlog 100 Unit/Ml 10 Ml Vial) 6 unit SUBCUT DAILY [facility] Last Admin: 11/13/23 08:39 Dose: 6 unit Magnesium Oxide (Magnesium Oxide 400 Mg Tablet) 400 mg PO BIDPC [facility] Last Admin: 11/13/23 08:39 Dose: 400 mg Memantine (Memantine Hcl 10 Mg Tablet) 10 mg PO BID [facility] Last Admin: 11/13/23 08:39 Dose: 10 mg Nystatin (Nystatin Cream 15 Gm Tube) 1 appl TOPICAL BID [facility]; Protocol Last Admin: 11/12/23 21:01 Dose: 1 appl Olanzapine (Olanzapine 5 Mg Tablet) 5 mg PO BEDTIME [facility] Last Admin: 11/12/23 21:02 Dose: 5 mg Olanzapine (Olanzapine 5 Mg Tablet) 5 mg PO Q4H PRN PRN Reason: agitation Last Admin: 11/13/23 09:13 Dose: 5 mg Polyethylene Glycol (Polyethylene Glycol 3350 17 Gm Powd.Pack) 17 gm PO DAILY [facility] Last Admin: 11/13/23 08:40 Dose: 17 gm Senna (Sennosides 8.6 Mg Tablet) 17.2 mg PO BEDTIME [facility] Last Admin: 11/12/23 21:02 Dose: 17.2 mg Sertraline HCl (Sertraline Hcl 100 Mg Tablet) 200 mg PO DAILY [facility] Last Admin: 11/13/23 08:39 Dose: 200 mg Trazodone HCl (Trazodone Hcl 50 Mg Tablet) 50 mg PO BEDTIME MRX1 PRN PRN Reason: Sleep Last Admin: 11/12/23 21:02 Dose: 50 mg Allergies Allergies Allergy/AdvReac Type Severity Reaction Status Date / Time No Known Allergies Allergy Verified 03/23/23 18:13 Assessment & Plan Assessment & Plan (1) Alzheimer's dementia: Status: Acute Code(s): G30.9 - Alzheimer's disease, unspecified; F02.80 - Dementia in other diseases classified elsewhere, unspecified severity, without behavioral disturbance, psychotic disturbance, mood disturbance, and anxiety Assessment and Plan: August 24 58 years old woman with relative young age onset at Alzheimer dementia but overall clinical picture is affected by significant depression, which continues to be the predominant feature of for clinical picture. Conventional dementia medicines such as donepezil or memantine can be tried but usually do not make significant difference. I would suggest memantine 10 mg twice a day and donepezil 10 mg daily. Recently a new dementia at drug for Alzheimer was approved but only for relatively mild dementia or mild cognitive impairment type of patients. She would not qualify for that drug. 10/18 Patient sitting in chair in the day room, head leaning over to 1 side, resting. When asked how she is doing she says that she has diabetes and that she takes meds for that. She asks if writer editor will be down here again. Staff reports no changes in behavior but seems to have more frequent lucid moments. 10/27 continue tx. hold adderall due to increase irritability now that she is covid positive. 10/29: symptomatic of COVID - URI Sx. VSS. no change in mental health presentation. continue current mgmt. 10/30: continues laid low by COVID. psych presentation essentially unchanged. continue current mgmt, monitor VS. 10/31 continue tx. 11/05 CTP no change 11/06/23 - CTP 11/11/2023: No changes 11/12/2023: No changes to current plan Plan 1. Continue with other oral Zoloft and other psychotropics. 2. Waiting for placement. 3. Start Zyprexa 5 mg p.o. q.h.s. to target paranoia that started after she got COVID. Plan Plan continue with same treatment Reason for continued inpatient stay Substantial Risk for: inability to function, rapid decompensation and med/psych decompensation Time Spent With Patient Time: Total time managing care of this patient today _20___ minutes.
[2023-11-13] MEDS: Nystatin Cream 15 GM TUBE 1 APPL TOPICAL ×2 (17:09→20:42)
[2023-11-13 18:00] VITALS: BP 147/70; PULSE 81; RESP 18; TEMP 36.8; O2SAT 98
[2023-11-13] MEDS: OLANZapine 5 MG TABLET PO ×3 (18:33→23:27)
[2023-11-13] MEDS: traZODone HCL 50 MG TABLET PO ×2 (20:42→23:27)
[2023-11-13] MEDS: Sennosides 8.6 MG TABLET 17.2 MG PO (20:42)
[2023-11-13] MEDS: Acetaminophen 325 MG TABLET 650 MG PO (20:43)
[2023-11-13 21:50] LABS: Glucose, Whole Blood 203 mg/dL (60-115)
[2023-11-14 06:44] LABS: Glucose, Whole Blood 138 mg/dL (60-115)
[2023-11-14 08:00] VITALS: BP 140/73; PULSE 70; RESP 18; TEMP 36.8; O2SAT 97
[2023-11-14] MEDS: Memantine HCl 10 MG TABLET PO ×2 (09:11→21:41)
[2023-11-14] MEDS: Sertraline HCL 100 MG TABLET 200 MG PO (09:11)
[2023-11-14] MEDS: Magnesium Oxide 400 MG TABLET PO ×2 (09:11→17:37)
[2023-11-14] MEDS: Docusate Sodium 100 MG CAPSULE PO ×2 (09:11→21:40)
[2023-11-14] MEDS: Nystatin Cream 15 GM TUBE 1 APPL TOPICAL (09:12)
[2023-11-14] MEDS: polyethylene glycoL 3350 17 GM POWD.PACK PO (09:12)
[2023-11-14] MEDS: Insulin Glargine,Hum.rec.anlog 100 UNIT/ML 10 ML VIAL 6 UNIT SUBCUT (09:17)
--- NOTE | 2023-11-14 11:25 | P.PNPSI_ITS ---
Subjective Subjective Date of Service: 11/14/23 Reason For Visit: hallucinations confusion Subjective Notes: Conditional Voluntary Interim History: The nursing staff reported no changes in her mental status compliant with treatment. Apparently she has had some visual hallucinations and paranoia and evening. On interview the patient denies new symptoms we are going to keep her on her regular Zyprexa at night. Mental Status Exam Mental Status Exam Patient Appearance: Appropriate Patient Orientation: Person and Situation Level of Consciousness: Awake and Appropriate Patient Behavior: Guarded and Passive Mood Description: Withdrawn Affect Description: Constricted Patient Cognition Impaired: Yes Ability to Follow Directions: Good Speech Pattern: Clear Hallucinations: None Delusions: Paranoid Ideation and Ideas of Reference Thought Process: Distracted and Slowed Thinking Thought Content: positive for [place] and positive for Poverty of Content Judgement: Poor Diagnostics Vital Signs (24Hr): Vital Signs - 24 hr 11/13/23 18:00 11/14/23 08:00 Temperature 98.2 F 98.2 F Pulse Rate 81 70 Respiratory Rate 18 18 Blood Pressure 147/70 H 140/73 H Pulse Oximetry 98 97 Oxygen Delivery Method Room Air Room Air BMI result Body Mass Index 27.7 Labs 11/13/23 08:28 11/13/23 08:28 Labs: Laboratory Results - last 48 hr 11/12/23 11/13/23 11/13/23 19:50 06:24 08:28 WBC 7.3 RBC 5.10 Hgb 13.3 Hct 42.1 MCV 82.5 MCH 26.1 L MCHC 31.6 RDW 14.7 Plt Count 254 MPV 10.1 Immature Gran % (Auto) 0.4 Neut % (Auto) 61.3 Lymph % (Auto) 23.8 [place] % (Auto) 7.9 Eos % (Auto) 6.2 H Baso % (Auto) 0.4 Lymph # (Auto) 1.7 [place] # (Auto) 0.6 Eos # (Auto) 0.5 H Baso # (Auto) 0.0 Abs Immat Gran (auto) 0.03 Absolute Neuts (auto) 4.5 Absolute Nucleated RBC 0.000 Nucleated RBC % (auto) 0.0 Sodium 141 Potassium 4.0 Chloride 103 Carbon Dioxide 29 Anion Gap 13 BUN 18 H Creatinine 0.81 Estim Creat Clear Calc 69.6 Estimated GFR > 60 POC Glucose 133 H 127 H Random Glucose 144 H Calcium 10.1 11/13/23 11/14/23 19:48 05:59 WBC RBC Hgb Hct MCV MCH MCHC RDW Plt Count MPV Immature Gran % (Auto) Neut % (Auto) Lymph % (Auto) [place] % (Auto) Eos % (Auto) Baso % (Auto) Lymph # (Auto) [place] # (Auto) Eos # (Auto) Baso # (Auto) Abs Immat Gran (auto) Absolute Neuts (auto) Absolute Nucleated RBC Nucleated RBC % (auto) Sodium Potassium Chloride Carbon Dioxide Anion Gap BUN Creatinine Estim Creat Clear Calc Estimated GFR POC Glucose 203 H 138 H Random Glucose Calcium Imaging Radiology Impressions: ITS Impressions Brain MRI 04/03/23 15:30 IMPRESSION: No acute infarct, mass lesion, intracranial hemorrhage, or evidence of hydrocephalus. Mild nonspecific T2/FLAIR hyperintensity in the cerebral white matter and danny presumably on the basis of chronic microangiopathy. Cervical Spine CT 07/03/23 20:12 IMPRESSION: No acute findings within the cervical spine. The cervical central canal is not well assessed on this CT due to artifact. If weakness persists, a cervical spine MRI would be more sensitive in assessment. Medications Medications Current Medications Acetaminophen (Acetaminophen 325 Mg Tablet) 650 mg PO Q6H PRN PRN Reason: Pain, Mild (Pain Scale 1-3) Last Admin: 11/13/23 20:43 Dose: 650 mg Amphetamine/Dextroamphetamine (Amphetamine Mixed Salts 10 Mg Tablet) 5 mg PO BID@0800,1700 [facility] Last Admin: 10/27/23 08:55 Dose: 5 mg Bacitracin (Bacitracin Oint 14 Gm Tube) 1 appl TOPICAL BID [facility]; Protocol Stop: 11/17/23 13:14 Last Admin: 11/14/23 09:12 Dose: 1 appl Bisacodyl (Bisacodyl 5 Mg Tablet.) 10 mg PO DAILY PRN PRN Reason: Constipation Last Admin: 10/13/23 23:19 Dose: 10 mg Docusate Sodium (Docusate Sodium 100 Mg Capsule) 100 mg PO BID [facility] Last Admin: 11/14/23 09:11 Dose: 100 mg Guaifenesin (Guaifenesin La 600 Mg Tab.Er.12h) 600 mg PO BID PRN PRN Reason: Cough Last Admin: 11/02/23 21:54 Dose: 600 mg Insulin Glargine (Insulin Glargine,Hum.Rec.Anlog 100 Unit/Ml 10 Ml Vial) 6 unit SUBCUT DAILY [facility] Last Admin: 11/14/23 09:17 Dose: 6 unit Magnesium Oxide (Magnesium Oxide 400 Mg Tablet) 400 mg PO BIDPC [facility] Last Admin: 11/14/23 09:11 Dose: 400 mg Memantine (Memantine Hcl 10 Mg Tablet) 10 mg PO BID [facility] Last Admin: 11/14/23 09:11 Dose: 10 mg Nystatin (Nystatin Cream 15 Gm Tube) 1 appl TOPICAL BID [facility]; Protocol Last Admin: 11/14/23 09:12 Dose: 1 appl Olanzapine (Olanzapine 5 Mg Tablet) 5 mg PO BEDTIME [facility] Last Admin: 11/13/23 20:43 Dose: 5 mg Olanzapine (Olanzapine 5 Mg Tablet) 5 mg PO Q4H PRN PRN Reason: agitation Last Admin: 11/13/23 23:27 Dose: 5 mg Polyethylene Glycol (Polyethylene Glycol 3350 17 Gm Powd.Pack) 17 gm PO DAILY [facility] Last Admin: 11/14/23 09:12 Dose: 17 gm Senna (Sennosides 8.6 Mg Tablet) 17.2 mg PO BEDTIME [facility] Last Admin: 11/13/23 20:42 Dose: 17.2 mg Sertraline HCl (Sertraline Hcl 100 Mg Tablet) 200 mg PO DAILY [facility] Last Admin: 11/14/23 09:11 Dose: 200 mg Trazodone HCl (Trazodone Hcl 50 Mg Tablet) 50 mg PO BEDTIME MRX1 PRN PRN Reason: Sleep Last Admin: 11/13/23 23:27 Dose: 50 mg Allergies Allergies Allergy/AdvReac Type Severity Reaction Status Date / Time No Known Allergies Allergy Verified 03/23/23 18:13 Assessment & Plan Assessment & Plan (1) Alzheimer's dementia: Status: Acute Code(s): G30.9 - Alzheimer's disease, unspecified; F02.80 - Dementia in other diseases classified elsewhere, unspecified severity, without behavioral disturbance, psychotic disturbance, mood disturbance, and anxiety Assessment and Plan: August 24 58 years old woman with relative young age onset at Alzheimer dementia but overall clinical picture is affected by significant depression, which continues to be the predominant feature of for clinical picture. Conventional dementia medicines such as donepezil or memantine can be tried but usually do not make significant difference. I would suggest memantine 10 mg twice a day and donepezil 10 mg daily. Recently a new dementia at drug for Alzheimer was approved but only for relatively mild dementia or mild cognitive impairment type of patients. She would not qualify for that drug. 10/18 Patient sitting in chair in the day room, head leaning over to 1 side, resting. When asked how she is doing she says that she has diabetes and that she takes meds for that. She asks if science writer will be down here again. Staff reports no changes in behavior but seems to have more frequent lucid moments. 10/27 continue tx. hold adderall due to increase irritability now that she is covid positive. 10/29: symptomatic of COVID - URI Sx. VSS. no change in mental health presentation. continue current mgmt. 10/30: continues laid low by COVID. psych presentation essentially unchanged. continue current mgmt, monitor VS. 10/31 continue tx. 11/05 CTP no change 11/06/23 - CTP 11/11/2023: No changes 11/12/2023: No changes to current plan Plan 1. Continue with other oral Zoloft and other psychotropics. 2. Waiting for placement. 3. Start Zyprexa 5 mg p.o. q.h.s. to target paranoia that started after she got COVID. Plan Plan continue with same treatment Reason for continued inpatient stay Substantial Risk for: inability to function, rapid decompensation and med/psych decompensation Time Spent With Patient Time: Total time managing care of this patient today ___20_ minutes.
[2023-11-14 11:34] LABS: Glucose, Whole Blood 199 mg/dL (60-115)
[2023-11-14] MEDS: OLANZapine 5 MG TABLET PO ×2 (15:18→21:41)
[2023-11-14 18:36] VITALS: BP 141/68; PULSE 74; RESP 16; TEMP 35.9; O2SAT 99
[2023-11-14] MEDS: Sennosides 8.6 MG TABLET 17.2 MG PO (21:40)
[2023-11-15 01:28] LABS: Glucose, Whole Blood 186 mg/dL (60-115)
[2023-11-15] MEDS: OLANZapine 5 MG TABLET PO ×2 (01:29→20:01)
[2023-11-15] MEDS: traZODone HCL 50 MG TABLET PO ×2 (01:29→20:01)
[2023-11-15 06:16] LABS: Glucose, Whole Blood 195 mg/dL (60-115)
--- NOTE | 2023-11-15 09:01 | P.PNPSI_ITS ---
Subjective Subjective Date of Service: 11/15/23 Reason For Visit: hallucinations confusion Subjective Notes: Conditional Voluntary Interim History: The nursing staff reported the patient had sporadic visual hallucinations easily redirectable. She used p.r.n. Zyprexa with good effect. The transition social worker reported they are still working on financial clearance to transfer to the [facility]. On interview the patient denies new symptoms, waiting for placement Mental Status Exam Mental Status Exam Patient Appearance: Appropriate Patient Orientation: Person and Situation Level of Consciousness: Awake Patient Behavior: Guarded and Passive Mood Description: Withdrawn Affect Description: Constricted Patient Cognition Impaired: Yes Ability to Follow Directions: Good Speech Pattern: Clear Hallucinations: None Delusions: Not Present Thought Process: Evasive Thought Content: positive for Poverty of Content Judgement: Fair Diagnostics Vital Signs (24Hr): Vital Signs - 24 hr 11/14/23 18:36 Temperature 96.7 F L Pulse Rate 74 Respiratory Rate 16 Blood Pressure 141/68 H Pulse Oximetry 99 Oxygen Delivery Method Room Air BMI result Body Mass Index 27.7 Labs 11/13/23 08:28 11/13/23 08:28 Labs: Laboratory Results - last 48 hr 11/13/23 11/13/23 11/14/23 08:28 19:48 05:59 Sodium 141 Potassium 4.0 Chloride 103 Carbon Dioxide 29 Anion Gap 13 BUN 18 H Creatinine 0.81 Estim Creat Clear Calc 69.6 Estimated GFR > 60 POC Glucose 203 H 138 H Random Glucose 144 H Calcium 10.1 11/14/23 11/15/23 11/15/23 11:30 01:24 05:51 Sodium Potassium Chloride Carbon Dioxide Anion Gap BUN Creatinine Estim Creat Clear Calc Estimated GFR POC Glucose 199 H 186 H 195 H Random Glucose Calcium Imaging Radiology Impressions: ITS Impressions Brain MRI 04/03/23 15:30 IMPRESSION: No acute infarct, mass lesion, intracranial hemorrhage, or evidence of hydrocephalus. Mild nonspecific T2/FLAIR hyperintensity in the cerebral white matter and danny presumably on the basis of chronic microangiopathy. Cervical Spine CT 07/03/23 20:12 IMPRESSION: No acute findings within the cervical spine. The cervical central canal is not well assessed on this CT due to artifact. If weakness persists, a cervical spine MRI would be more sensitive in assessment. Medications Medications Current Medications Acetaminophen (Acetaminophen 325 Mg Tablet) 650 mg PO Q6H PRN PRN Reason: Pain, Mild (Pain Scale 1-3) Last Admin: 11/13/23 20:43 Dose: 650 mg Amphetamine/Dextroamphetamine (Amphetamine Mixed Salts 10 Mg Tablet) 5 mg PO BID@0800,1700 [facility] Last Admin: 10/27/23 08:55 Dose: 5 mg Bacitracin (Bacitracin Oint 14 Gm Tube) 1 appl TOPICAL BID [facility]; Protocol Stop: 11/17/23 13:14 Last Admin: 11/14/23 21:50 Dose: 1 appl Bisacodyl (Bisacodyl 5 Mg Tablet.Dr) 10 mg PO DAILY PRN PRN Reason: Constipation Last Admin: 10/13/23 23:19 Dose: 10 mg Docusate Sodium (Docusate Sodium 100 Mg Capsule) 100 mg PO BID [facility] Last Admin: 11/14/23 21:40 Dose: 100 mg Guaifenesin (Guaifenesin La 600 Mg Tab.Er.12h) 600 mg PO BID PRN PRN Reason: Cough Last Admin: 11/02/23 21:54 Dose: 600 mg Insulin Glargine (Insulin Glargine,Hum.Rec.Anlog 100 Unit/Ml 10 Ml Vial) 6 unit SUBCUT DAILY [facility] Last Admin: 11/14/23 09:17 Dose: 6 unit Magnesium Oxide (Magnesium Oxide 400 Mg Tablet) 400 mg PO BIDPC [facility] Last Admin: 11/14/23 17:37 Dose: 400 mg Memantine (Memantine Hcl 10 Mg Tablet) 10 mg PO BID [facility] Last Admin: 11/14/23 21:41 Dose: 10 mg Nystatin (Nystatin Cream 15 Gm Tube) 1 appl TOPICAL BID [facility]; Protocol Last Admin: 11/14/23 21:55 Dose: Not Given Olanzapine (Olanzapine 5 Mg Tablet) 5 mg PO BEDTIME [facility] Last Admin: 11/14/23 21:41 Dose: 5 mg Olanzapine (Olanzapine 5 Mg Tablet) 5 mg PO Q4H PRN PRN Reason: agitation Last Admin: 11/15/23 01:29 Dose: 5 mg Polyethylene Glycol (Polyethylene Glycol 3350 17 Gm Powd.Pack) 17 gm PO DAILY [facility] Last Admin: 11/14/23 09:12 Dose: 17 gm Senna (Sennosides 8.6 Mg Tablet) 17.2 mg PO BEDTIME [facility] Last Admin: 11/14/23 21:40 Dose: 17.2 mg Sertraline HCl (Sertraline Hcl 100 Mg Tablet) 200 mg PO DAILY [facility] Last Admin: 11/14/23 09:11 Dose: 200 mg Trazodone HCl (Trazodone Hcl 50 Mg Tablet) 50 mg PO BEDTIME MRX1 PRN PRN Reason: Sleep Last Admin: 11/15/23 01:29 Dose: 50 mg Allergies Allergies Allergy/AdvReac Type Severity Reaction Status Date / Time No Known Allergies Allergy Verified 03/23/23 18:13 Assessment & Plan Assessment & Plan (1) Alzheimer's dementia: Status: Acute Code(s): G30.9 - Alzheimer's disease, unspecified; F02.80 - Dementia in other diseases classified elsewhere, unspecified severity, without behavioral disturbance, psychotic disturbance, mood disturbance, and anxiety Assessment and Plan: August 24 58 years old woman with relative young age onset at Alzheimer dementia but overall clinical picture is affected by significant depression, which continues to be the predominant feature of for clinical picture. Conventional dementia medicines such as donepezil or memantine can be tried but usually do not make significant difference. I would suggest memantine 10 mg twice a day and donepezil 10 mg daily. Recently a new dementia at drug for Alzheimer was approved but only for relatively mild dementia or mild cognitive impairment type of patients. She would not qualify for that drug. 10/18 Patient sitting in chair in the day room, head leaning over to 1 side, resting. When asked how she is doing she says that she has diabetes and that she takes meds for that. She asks if teletypewriter operator will be down here again. Staff reports no changes in behavior but seems to have more frequent lucid moments. 10/27 continue tx. hold adderall due to increase irritability now that she is covid positive. 10/29: symptomatic of COVID - URI Sx. VSS. no change in mental health presentation. continue current mgmt. 10/30: continues laid low by COVID. psych presentation essentially unchanged. continue current mgmt, monitor VS. 10/31 continue tx. 11/05 CTP no change 11/06/23 - CTP 11/11/2023: No changes 11/12/2023: No changes to current plan Plan 1. Continue with other oral Zoloft and other psychotropics. 2. Waiting for placement. 3. Start Zyprexa 5 mg p.o. q.h.s. to target paranoia that started after she got COVID. Plan Plan continue with same treatment Reason for continued inpatient stay Substantial Risk for: inability to function, rapid decompensation and med/psych decompensation Time Spent With Patient Time: Total time managing care of this patient today __20__ minutes.
[2023-11-15 11:00] VITALS: BP 152/72; PULSE 67; RESP 16; TEMP 36.6; O2SAT 97
[2023-11-15] MEDS: Magnesium Oxide 400 MG TABLET PO ×2 (15:18→17:12)
[2023-11-15] MEDS: polyethylene glycoL 3350 17 GM POWD.PACK PO (15:18)
[2023-11-15] MEDS: Docusate Sodium 100 MG CAPSULE PO ×2 (15:18→20:01)
[2023-11-15] MEDS: Sertraline HCL 100 MG TABLET 200 MG PO (15:18)
[2023-11-15] MEDS: Memantine HCl 10 MG TABLET PO ×2 (15:18→20:01)
[2023-11-15] MEDS: Insulin Glargine,Hum.rec.anlog 100 UNIT/ML 10 ML VIAL 6 UNIT SUBCUT (15:22)
[2023-11-15 18:48] LABS: Appearance Urine Clear; Color Urine Yellow; Glucose Urine UA 500 mg/dL (Negative); Leukocyte Esterase Urine Trace (Negative); Nitrite Urine Negative (Negative); PH 6.5 (5.0-9.0); UMIC TRIGGER UACC YES; Urine Blood Negative (Negative); Urine Ketones Negative (Negative); Urine Protein Negative (Neg-Trace)
[2023-11-15 19:12] LABS: Bacteria Urine None Seen (None Seen); Hyaline Casts Urine 0-2 /LPF (0-2); RBC Urine 0-2 /HPF (0-2); Squamous Epithelial Cell Urine 0-2 /HPF (0-2); WBC Urine 0-5 /HPF (0-5)
[2023-11-15 19:38] LABS: Glucose, Whole Blood 168 mg/dL (60-115)
[2023-11-15] MEDS: Sennosides 8.6 MG TABLET 17.2 MG PO (20:01)
[2023-11-15 21:18] VITALS: BP 128/66; PULSE 70; RESP 16; TEMP 36.4; O2SAT 98
[2023-11-16 06:00] VITALS: BP 159/86; PULSE 74; RESP 16; TEMP 36.8; O2SAT 98
[2023-11-16 06:40] LABS: Glucose, Whole Blood 132 mg/dL (60-115)
[2023-11-16] MEDS: Docusate Sodium 100 MG CAPSULE PO ×2 (09:29→20:22)
[2023-11-16] MEDS: Magnesium Oxide 400 MG TABLET PO ×2 (09:29→18:30)
[2023-11-16] MEDS: Sertraline HCL 100 MG TABLET 200 MG PO (09:29)
[2023-11-16] MEDS: Memantine HCl 10 MG TABLET PO ×2 (09:29→20:22)
--- NOTE | 2023-11-16 14:08 | P.PNPSI_ITS ---
Subjective Subjective Date of Service: 11/16/23 Reason For Visit: hallucinations confusion Subjective Notes: Conditional Voluntary Interim History: The nursing staff reported no changes in her mental status. Yesterday we ordered a straight cath for the UA came back normal. On interview the patient denies new symptoms, waiting for placement. Mental Status Exam Mental Status Exam Patient Appearance: Well Grooomed and Appropriate Patient Orientation: Person Level of Consciousness: Awake Patient Behavior: Guarded and Passive Mood Description: Withdrawn Affect Description: Constricted Patient Cognition Impaired: Yes Ability to Follow Directions: Good Speech Pattern: Clear Hallucinations: None Delusions: Not Present Thought Process: Distracted and Evasive Thought Content: positive for [place] and positive for Circumstantial Judgement: Fair Diagnostics Vital Signs (24Hr): Vital Signs - 24 hr 11/15/23 21:18 11/16/23 06:00 Temperature 97.5 F 98.2 F Pulse Rate 70 74 Respiratory Rate 16 16 Blood Pressure 128/66 159/86 H Pulse Oximetry 98 98 Oxygen Delivery Method Room Air Room Air BMI result Body Mass Index 27.7 Labs 11/13/23 08:28 11/13/23 08:28 Labs: Laboratory Results - last 48 hr 11/15/23 11/15/23 11/15/23 01:24 05:51 18:29 POC Glucose 186 H 195 H Urine Color Yellow Urine Appearance Clear Urine pH 6.5 Ur Specific [place] 1.010 Urine Protein Negative Urine Glucose (UA) 500 H Urine Ketones Negative Urine Blood Negative Urine Nitrite Negative Ur Leukocyte Esterase Trace H Urine RBC 0-2 Urine WBC 0-5 Ur Squamous Epith Cells 0-2 Urine Bacteria None Seen Hyaline Casts 0-2 11/15/23 11/16/23 19:32 06:21 POC Glucose 168 H 132 H Urine Color Urine Appearance Urine pH Ur Specific [place] Urine Protein Urine Glucose (UA) Urine Ketones Urine Blood Urine Nitrite Ur Leukocyte Esterase Urine RBC Urine WBC Ur Squamous Epith Cells Urine Bacteria Hyaline Casts Imaging Radiology Impressions: ITS Impressions Brain MRI 04/03/23 15:30 IMPRESSION: No acute infarct, mass lesion, intracranial hemorrhage, or evidence of hydrocephalus. Mild nonspecific T2/FLAIR hyperintensity in the cerebral white matter and danny presumably on the basis of chronic microangiopathy. Cervical Spine CT 07/03/23 20:12 IMPRESSION: No acute findings within the cervical spine. The cervical central canal is not well assessed on this CT due to artifact. If weakness persists, a cervical spine MRI would be more sensitive in assessment. Medications Medications Current Medications Acetaminophen (Acetaminophen 325 Mg Tablet) 650 mg PO Q6H PRN PRN Reason: Pain, Mild (Pain Scale 1-3) Last Admin: 11/13/23 20:43 Dose: 650 mg Amphetamine/Dextroamphetamine (Amphetamine Mixed Salts 10 Mg Tablet) 5 mg PO BID@0800,1700 [facility] Last Admin: 10/27/23 08:55 Dose: 5 mg Bacitracin (Bacitracin Oint 14 Gm Tube) 1 appl TOPICAL BID [facility]; Protocol Stop: 11/17/23 13:14 Last Admin: 11/16/23 09:29 Dose: 1 appl Bisacodyl (Bisacodyl 5 Mg Tablet.Dr) 10 mg PO DAILY PRN PRN Reason: Constipation Last Admin: 10/13/23 23:19 Dose: 10 mg Docusate Sodium (Docusate Sodium 100 Mg Capsule) 100 mg PO BID [facility] Last Admin: 11/16/23 09:29 Dose: 100 mg Guaifenesin (Guaifenesin La 600 Mg Tab.Er.12h) 600 mg PO BID PRN PRN Reason: Cough Last Admin: 11/02/23 21:54 Dose: 600 mg Insulin Glargine (Insulin Glargine,Hum.Rec.Anlog 100 Unit/Ml 10 Ml Vial) 6 unit SUBCUT DAILY [facility] Last Admin: 11/16/23 10:05 Dose: Not Given Magnesium Oxide (Magnesium Oxide 400 Mg Tablet) 400 mg PO BIDPC [facility] Last Admin: 11/16/23 09:29 Dose: 400 mg Memantine (Memantine Hcl 10 Mg Tablet) 10 mg PO BID [facility] Last Admin: 11/16/23 09:29 Dose: 10 mg Olanzapine (Olanzapine 5 Mg Tablet) 5 mg PO BEDTIME [facility] Last Admin: 11/15/23 20:01 Dose: 5 mg Olanzapine (Olanzapine 5 Mg Tablet) 5 mg PO Q4H PRN PRN Reason: agitation Last Admin: 11/15/23 01:29 Dose: 5 mg Polyethylene Glycol (Polyethylene Glycol 3350 17 Gm Powd.Pack) 17 gm PO DAILY [facility] Last Admin: 11/16/23 09:32 Dose: Not Given Senna (Sennosides 8.6 Mg Tablet) 17.2 mg PO BEDTIME [facility] Last Admin: 11/15/23 20:01 Dose: 17.2 mg Sertraline HCl (Sertraline Hcl 100 Mg Tablet) 200 mg PO DAILY [facility] Last Admin: 11/16/23 09:29 Dose: 200 mg Trazodone HCl (Trazodone Hcl 50 Mg Tablet) 50 mg PO BEDTIME MRX1 PRN PRN Reason: Sleep Last Admin: 11/15/23 20:01 Dose: 50 mg Allergies Allergies Allergy/AdvReac Type Severity Reaction Status Date / Time No Known Allergies Allergy Verified 03/23/23 18:13 Assessment & Plan Assessment & Plan (1) Alzheimer's dementia: Status: Acute Code(s): G30.9 - Alzheimer's disease, unspecified; F02.80 - Dementia in other diseases classified elsewhere, unspecified severity, without behavioral disturbance, psychotic disturbance, mood disturbance, and anxiety Assessment and Plan: August [birth year] 58 years old woman with relative young age onset at Alzheimer dementia but overall clinical picture is affected by significant depression, which continues to be the predominant feature of for clinical picture. Conventional dementia medicines such as donepezil or memantine can be tried but usually do not make significant difference. I would suggest memantine 10 mg twice a day and donepezil 10 mg daily. Recently a new dementia at drug for Alzheimer was approved but only for relatively mild dementia or mild cognitive impairment type of patients. She would not qualify for that drug. 10/18 Patient sitting in chair in the day room, head leaning over to 1 side, resting. When asked how she is doing she says that she has diabetes and that she takes meds for that. She asks if development writer will be down here again. Staff reports no changes in behavior but seems to have more frequent lucid moments. 10/27 continue tx. hold adderall due to increase irritability now that she is covid positive. 10/29: symptomatic of COVID - URI Sx. VSS. no change in mental health presentation. continue current mgmt. 10/30: continues laid low by COVID. psych presentation essentially unchanged. continue current mgmt, monitor VS. 10/31 continue tx. 11/05 CTP no change 11/06/23 - CTP 11/11/2023: No changes 11/12/2023: No changes to current plan Plan 1. Continue with other oral Zoloft and other psychotropics. 2. Waiting for placement. 3. Start Zyprexa 5 mg p.o. q.h.s. to target paranoia that started after she got COVID. Plan Plan continue with same treatment Reason for continued inpatient stay Substantial Risk for: inability to function, rapid decompensation and med/psych decompensation Time Spent With Patient Time: Total time managing care of this patient today __20__ minutes.
[2023-11-16 19:18] LABS: Glucose, Whole Blood 217 mg/dL (60-115)
[2023-11-16] MEDS: Sennosides 8.6 MG TABLET 17.2 MG PO (20:22)
[2023-11-16] MEDS: traZODone HCL 50 MG TABLET PO ×2 (20:22→22:41)
[2023-11-16] MEDS: OLANZapine 5 MG TABLET PO ×2 (20:22→22:41)
[2023-11-16 20:44] VITALS: BP 146/60; PULSE 74; RESP 16; TEMP 36.6; O2SAT 96
[2023-11-17] MEDS: LORazepam 1 MG TABLET PO (00:23)
[2023-11-17] MEDS: diphenhydrAMINE HCL 25 MG CAPSULE PO (00:23)
[2023-11-17] MEDS: HaloperidoL 5 MG TABLET PO (00:23)
--- NOTE | 2023-11-17 05:18 | PC.NURSE ---
Patient restless, pacing, yelling and screaming at times, responding to internal stimuli, tearful, unable to fall sleep, scheduled olanzapine 5 mg and PRN Olanzapine 5 mg did not have any effect, information security specialist provider Dr Matthew called/notified/ordered to write telephone order of haldol 5 mg PO, Ativan 1 mg PO, and benadryl 25 mg PO, ordered entered read-back/confirmed/administered at 0023 with + effect, slept through the night, will continue to monitor.
[2023-11-17 06:49] LABS: Glucose, Whole Blood 135 mg/dL (60-115)
[2023-11-17 11:00] VITALS: BP 159/75; PULSE 75; RESP 16; TEMP 36.3; O2SAT 95
[2023-11-17] MEDS: Insulin Glargine,Hum.rec.anlog 100 UNIT/ML 10 ML VIAL 6 UNIT SUBCUT (11:07)
[2023-11-17] MEDS: polyethylene glycoL 3350 17 GM POWD.PACK PO (11:07)
[2023-11-17] MEDS: Magnesium Oxide 400 MG TABLET PO ×2 (11:07→18:41)
[2023-11-17] MEDS: Memantine HCl 10 MG TABLET PO ×2 (11:07→22:18)
[2023-11-17] MEDS: Docusate Sodium 100 MG CAPSULE PO ×2 (11:07→22:19)
[2023-11-17] MEDS: Sertraline HCL 100 MG TABLET 200 MG PO (11:07)
--- NOTE | 2023-11-17 12:26 | HO.PSYCHPN ---
Subjective Subjective Date of Service: 11/17/23 Reason For Visit: hallucinations confusion Subjective Notes: Conditional Voluntary Interim History: The nursing staff reported no changes in her mental status, she was seen crying at times. On interview the patient denies new symptoms, waiting for placement. Mental Status Exam Mental Status Exam Patient Appearance: Well Grooomed and Appropriate Patient Orientation: Person and Situation Level of Consciousness: Awake and Appropriate Patient Behavior: Guarded and Passive Mood Description: Withdrawn Affect Description: Constricted Patient Cognition Impaired: Yes Ability to Follow Directions: Good Speech Pattern: Clear Hallucinations: None Delusions: Not Present Thought Process: Distracted and Evasive Thought Content: positive for [place] and positive for Poverty of Content Judgement: Fair Diagnostics Vital Signs (24Hr): Vital Signs - 24 hr 11/16/23 20:44 11/17/23 11:00 Temperature 97.9 F 97.4 F Pulse Rate 74 75 Respiratory Rate 16 16 Blood Pressure 146/60 H 159/75 H Pulse Oximetry 96 95 Oxygen Delivery Method Room Air Room Air BMI result Body Mass Index 27.7 Labs 11/13/23 08:28 11/13/23 08:28 Labs: Laboratory Results - last 48 hr 11/15/23 11/15/23 11/16/23 18:29 19:32 06:21 POC Glucose 168 H 132 H Urine Color Yellow Urine Appearance Clear Urine pH 6.5 Ur Specific [place] 1.010 Urine Protein Negative Urine Glucose (UA) 500 H Urine Ketones Negative Urine Blood Negative Urine Nitrite Negative Ur Leukocyte Esterase Trace H Urine RBC 0-2 Urine WBC 0-5 Ur Squamous Epith Cells 0-2 Urine Bacteria None Seen Hyaline Casts 0-2 11/16/23 11/17/23 19:14 06:15 POC Glucose 217 H 135 H Urine Color Urine Appearance Urine pH Ur Specific [place] Urine Protein Urine Glucose (UA) Urine Ketones Urine Blood Urine Nitrite Ur Leukocyte Esterase Urine RBC Urine WBC Ur Squamous Epith Cells Urine Bacteria Hyaline Casts Imaging Radiology Impressions: ITS Impressions Brain MRI 04/03/23 15:30 IMPRESSION: No acute infarct, mass lesion, intracranial hemorrhage, or evidence of hydrocephalus. Mild nonspecific T2/FLAIR hyperintensity in the cerebral white matter and danny presumably on the basis of chronic microangiopathy. Cervical Spine CT 07/03/23 20:12 IMPRESSION: No acute findings within the cervical spine. The cervical central canal is not well assessed on this CT due to artifact. If weakness persists, a cervical spine MRI would be more sensitive in assessment. Medications Medications Current Medications Acetaminophen (Acetaminophen 325 Mg Tablet) 650 mg PO Q6H PRN PRN Reason: Pain, Mild (Pain Scale 1-3) Last Admin: 11/13/23 20:43 Dose: 650 mg Amphetamine/Dextroamphetamine (Amphetamine Mixed Salts 10 Mg Tablet) 5 mg PO BID@0800,1700 [facility] Last Admin: 10/27/23 08:55 Dose: 5 mg Bacitracin (Bacitracin Oint 14 Gm Tube) 1 appl TOPICAL BID [facility]; Protocol Stop: 11/17/23 13:14 Last Admin: 11/17/23 11:07 Dose: 1 appl Bisacodyl (Bisacodyl 5 Mg Tablet.Dr) 10 mg PO DAILY PRN PRN Reason: Constipation Last Admin: 10/13/23 23:19 Dose: 10 mg Docusate Sodium (Docusate Sodium 100 Mg Capsule) 100 mg PO BID [facility] Last Admin: 11/17/23 11:07 Dose: 100 mg Guaifenesin (Guaifenesin La 600 Mg Tab.Er.12h) 600 mg PO BID PRN PRN Reason: Cough Last Admin: 11/02/23 21:54 Dose: 600 mg Insulin Glargine (Insulin Glargine,Hum.Rec.Anlog 100 Unit/Ml 10 Ml Vial) 6 unit SUBCUT DAILY [facility] Last Admin: 11/17/23 11:07 Dose: 6 unit Magnesium Oxide (Magnesium Oxide 400 Mg Tablet) 400 mg PO BIDPC [facility] Last Admin: 11/17/23 11:07 Dose: 400 mg Memantine (Memantine Hcl 10 Mg Tablet) 10 mg PO BID [facility] Last Admin: 11/17/23 11:07 Dose: 10 mg Olanzapine (Olanzapine 5 Mg Tablet) 5 mg PO BEDTIME [facility] Last Admin: 11/16/23 20:22 Dose: 5 mg Olanzapine (Olanzapine 5 Mg Tablet) 5 mg PO Q4H PRN PRN Reason: agitation Last Admin: 11/16/23 22:41 Dose: 5 mg Polyethylene Glycol (Polyethylene Glycol 3350 17 Gm Powd.Pack) 17 gm PO DAILY [facility] Last Admin: 11/17/23 11:07 Dose: 17 gm Senna (Sennosides 8.6 Mg Tablet) 17.2 mg PO BEDTIME [facility] Last Admin: 11/16/23 20:22 Dose: 17.2 mg Sertraline HCl (Sertraline Hcl 100 Mg Tablet) 200 mg PO DAILY [facility] Last Admin: 11/17/23 11:07 Dose: 200 mg Trazodone HCl (Trazodone Hcl 50 Mg Tablet) 50 mg PO BEDTIME MRX1 PRN PRN Reason: Sleep Last Admin: 11/16/23 22:41 Dose: 50 mg Allergies Allergies Allergy/AdvReac Type Severity Reaction Status Date / Time No Known Allergies Allergy Verified 03/23/23 18:13 Assessment & Plan Assessment & Plan (1) Alzheimer's dementia: Status: Acute Code(s): G30.9 - Alzheimer's disease, unspecified; F02.80 - Dementia in other diseases classified elsewhere, unspecified severity, without behavioral disturbance, psychotic disturbance, mood disturbance, and anxiety Assessment and Plan: August 24 58 years old woman with relative young age onset at Alzheimer dementia but overall clinical picture is affected by significant depression, which continues to be the predominant feature of for clinical picture. Conventional dementia medicines such as donepezil or memantine can be tried but usually do not make significant difference. I would suggest memantine 10 mg twice a day and donepezil 10 mg daily. Recently a new dementia at drug for Alzheimer was approved but only for relatively mild dementia or mild cognitive impairment type of patients. She would not qualify for that drug. 10/18 Patient sitting in chair in the day room, head leaning over to 1 side, resting. When asked how she is doing she says that she has diabetes and that she takes meds for that. 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 Staff reports no changes in behavior but seems to have more frequent lucid moments. 10/27 continue tx. hold adderall due to increase irritability now that she is covid positive. 10/29: symptomatic of COVID - URI Sx. VSS. no change in mental health presentation. continue current mgmt. 10/30: continues laid low by COVID. psych presentation essentially unchanged. continue current mgmt, monitor VS. 10/31 continue tx. 11/05 CTP no change 11/06/23 - CTP 11/11/2023: No changes 11/12/2023: No changes to current plan Plan 1. Continue with other oral Zoloft and other psychotropics. 2. Waiting for placement. 3. Start Zyprexa 5 mg p.o. q.h.s. to target paranoia that started after she got COVID. Plan Plan continue with same treatment Reason for continued inpatient stay Substantial Risk for: inability to function, rapid decompensation and med/psych decompensation Time Spent With Patient Time: Total time managing care of this patient today __20__ minutes.
[2023-11-17 18:00] VITALS: BP 144/69; PULSE 70; RESP 16; TEMP 36; O2SAT 97
[2023-11-17 20:12] LABS: Glucose, Whole Blood 213 mg/dL (60-115)
[2023-11-17] MEDS: traZODone HCL 50 MG TABLET PO ×2 (22:18→23:52)
[2023-11-17] MEDS: Sennosides 8.6 MG TABLET 17.2 MG PO (22:19)
[2023-11-17] MEDS: OLANZapine 5 MG TABLET PO ×2 (22:19)
[2023-11-17] MEDS: Acetaminophen 325 MG TABLET 650 MG PO (23:52)
[2023-11-18 07:00] LABS: Glucose, Whole Blood 149 mg/dL (60-115)
[2023-11-18 08:00] VITALS: BP 115/57; PULSE 61; RESP 18; TEMP 36.9; O2SAT 94
--- NOTE | 2023-11-18 08:57 | HO.PSYCHPN ---
Subjective Subjective Date of Service: 11/18/23 Reason For Visit: hallucinations confusion Subjective Notes: Conditional Voluntary Interim History: The nursing staff reported no changes in her mental status she slept 4 hours very late confused and wandering the unit. On interview the patient denies new symptoms, waiting for placement. Mental Status Exam Mental Status Exam Patient Appearance: Appropriate Patient Orientation: Person Level of Consciousness: Awake Patient Behavior: Guarded and Passive Mood Description: Withdrawn Affect Description: Constricted Patient Cognition Impaired: Yes Ability to Follow Directions: Good Speech Pattern: Clear Hallucinations: None Delusions: Not Present Thought Process: Evasive Thought Content: positive for [place] and positive for Poverty of Content Judgement: Fair Diagnostics Vital Signs (24Hr): Vital Signs - 24 hr 11/17/23 11:00 11/17/23 18:00 Temperature 97.4 F 96.8 F Pulse Rate 75 70 Respiratory Rate 16 16 Blood Pressure 159/75 H 144/69 H Pulse Oximetry 95 97 Oxygen Delivery Method Room Air Room Air BMI result Body Mass Index 27.7 Labs 11/13/23 08:28 11/13/23 08:28 Labs: Laboratory Results - last 48 hr 11/16/23 11/17/23 11/17/23 19:14 06:15 19:56 POC Glucose 217 H 135 H 213 H 11/18/23 05:58 POC Glucose 149 H Imaging Radiology Impressions: ITS Impressions Brain MRI 04/03/23 15:30 IMPRESSION: No acute infarct, mass lesion, intracranial hemorrhage, or evidence of hydrocephalus. Mild nonspecific T2/FLAIR hyperintensity in the cerebral white matter and danny presumably on the basis of chronic microangiopathy. Cervical Spine CT 07/03/23 20:12 IMPRESSION: No acute findings within the cervical spine. The cervical central canal is not well assessed on this CT due to artifact. If weakness persists, a cervical spine MRI would be more sensitive in assessment. Medications Medications Current Medications Acetaminophen (Acetaminophen 325 Mg Tablet) 650 mg PO Q6H PRN PRN Reason: Pain, Mild (Pain Scale 1-3) Last Admin: 11/17/23 23:52 Dose: 650 mg Amphetamine/Dextroamphetamine (Amphetamine Mixed Salts 10 Mg Tablet) 5 mg PO BID@0800,1700 [facility] Last Admin: 10/27/23 08:55 Dose: 5 mg Bisacodyl (Bisacodyl 5 Mg Tablet.) 10 mg PO DAILY PRN PRN Reason: Constipation Last Admin: 10/13/23 23:19 Dose: 10 mg Docusate Sodium (Docusate Sodium 100 Mg Capsule) 100 mg PO BID [facility] Last Admin: 11/17/23 22:19 Dose: 100 mg Guaifenesin (Guaifenesin La 600 Mg Tab.Er.12h) 600 mg PO BID PRN PRN Reason: Cough Last Admin: 11/02/23 21:54 Dose: 600 mg Insulin Glargine (Insulin Glargine,Hum.Rec.Anlog 100 Unit/Ml 10 Ml Vial) 6 unit SUBCUT DAILY [facility] Last Admin: 11/17/23 11:07 Dose: 6 unit Magnesium Oxide (Magnesium Oxide 400 Mg Tablet) 400 mg PO BIDPC [facility] Last Admin: 11/17/23 18:41 Dose: 400 mg Memantine (Memantine Hcl 10 Mg Tablet) 10 mg PO BID [facility] Last Admin: 11/17/23 22:18 Dose: 10 mg Olanzapine (Olanzapine 5 Mg Tablet) 5 mg PO BEDTIME [facility] Last Admin: 11/17/23 22:19 Dose: 5 mg Olanzapine (Olanzapine 5 Mg Tablet) 5 mg PO Q4H PRN PRN Reason: agitation Last Admin: 11/17/23 22:19 Dose: 5 mg Polyethylene Glycol (Polyethylene Glycol 3350 17 Gm Powd.Pack) 17 gm PO DAILY [facility] Last Admin: 11/17/23 11:07 Dose: 17 gm Senna (Sennosides 8.6 Mg Tablet) 17.2 mg PO BEDTIME [facility] Last Admin: 11/17/23 22:19 Dose: 17.2 mg Sertraline HCl (Sertraline Hcl 100 Mg Tablet) 200 mg PO DAILY [facility] Last Admin: 11/17/23 11:07 Dose: 200 mg Trazodone HCl (Trazodone Hcl 50 Mg Tablet) 50 mg PO BEDTIME MRX1 PRN PRN Reason: Sleep Last Admin: 11/17/23 23:52 Dose: 50 mg Allergies Allergies Allergy/AdvReac Type Severity Reaction Status Date / Time No Known Allergies Allergy Verified 03/23/23 18:13 Assessment & Plan Assessment & Plan (1) Alzheimer's dementia: Status: Acute Code(s): G30.9 - Alzheimer's disease, unspecified; F02.80 - Dementia in other diseases classified elsewhere, unspecified severity, without behavioral disturbance, psychotic disturbance, mood disturbance, and anxiety Assessment and Plan: August 24 58 years old woman with relative young age onset at Alzheimer dementia but overall clinical picture is affected by significant depression, which continues to be the predominant feature of for clinical picture. Conventional dementia medicines such as donepezil or memantine can be tried but usually do not make significant difference. I would suggest memantine 10 mg twice a day and donepezil 10 mg daily. Recently a new dementia at drug for Alzheimer was approved but only for relatively mild dementia or mild cognitive impairment type of patients. She would not qualify for that drug. 10/18 Patient sitting in chair in the day room, head leaning over to 1 side, resting. When asked how she is doing she says that she has diabetes and that she takes meds for that. 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 Staff reports no changes in behavior but seems to have more frequent lucid moments. 10/27 continue tx. hold adderall due to increase irritability now that she is covid positive. 10/29: symptomatic of COVID - URI Sx. VSS. no change in mental health presentation. continue current mgmt. 10/30: continues laid low by COVID. psych presentation essentially unchanged. continue current mgmt, monitor VS. 10/31 continue tx. 11/05 CTP no change 11/06/23 - CTP 11/11/2023: No changes 11/12/2023: No changes to current plan Plan 1. Continue with other oral Zoloft and other psychotropics. 2. Waiting for placement. 3. Start Zyprexa 5 mg p.o. q.h.s. to target paranoia that started after she got COVID. Plan Plan continue with same treatment Reason for continued inpatient stay Substantial Risk for: inability to function, rapid decompensation and med/psych decompensation Time Spent With Patient Time: Total time managing care of this patient today __20__ minutes.
[2023-11-18] MEDS: Memantine HCl 10 MG TABLET PO ×2 (09:10→20:34)
[2023-11-18] MEDS: Magnesium Oxide 400 MG TABLET PO ×2 (09:10→17:10)
[2023-11-18] MEDS: polyethylene glycoL 3350 17 GM POWD.PACK PO (09:10)
[2023-11-18] MEDS: Docusate Sodium 100 MG CAPSULE PO ×2 (09:10→20:34)
[2023-11-18] MEDS: Sertraline HCL 100 MG TABLET 200 MG PO (09:10)
[2023-11-18] MEDS: Insulin Glargine,Hum.rec.anlog 100 UNIT/ML 10 ML VIAL 6 UNIT SUBCUT (09:11)
[2023-11-18 18:00] VITALS: BP 139/78; PULSE 70; RESP 18; TEMP 37; O2SAT 96
[2023-11-18 20:08] LABS: Glucose, Whole Blood 172 mg/dL (60-115)
[2023-11-18] MEDS: Acetaminophen 325 MG TABLET 650 MG PO (20:34)
[2023-11-18] MEDS: OLANZapine 5 MG TABLET PO ×2 (20:34→21:48)
[2023-11-18] MEDS: traZODone HCL 50 MG TABLET PO ×2 (20:34→21:48)
[2023-11-18] MEDS: Sennosides 8.6 MG TABLET 17.2 MG PO (20:34)
[2023-11-19 06:00] VITALS: BP 135/65; PULSE 64; RESP 16; TEMP 36.2; O2SAT 98
[2023-11-19 06:49] LABS: Glucose, Whole Blood 118 mg/dL (60-115)
[2023-11-19] MEDS: Magnesium Oxide 400 MG TABLET PO ×2 (09:23→17:12)
[2023-11-19] MEDS: Memantine HCl 10 MG TABLET PO ×2 (09:23→21:10)
[2023-11-19] MEDS: Docusate Sodium 100 MG CAPSULE PO ×2 (09:23→21:10)
[2023-11-19] MEDS: Insulin Glargine,Hum.rec.anlog 100 UNIT/ML 10 ML VIAL 6 UNIT SUBCUT (09:24)
[2023-11-19] MEDS: polyethylene glycoL 3350 17 GM POWD.PACK PO (09:24)
[2023-11-19] MEDS: Sertraline HCL 100 MG TABLET 200 MG PO (09:24)
--- NOTE | 2023-11-19 11:20 | HO.PSYCHPN ---
Subjective Subjective Date of Service: 11/19/23 Reason For Visit: hallucinations confusion Subjective Notes: Conditional Voluntary Interim History: The nursing staff reported that she was responding to internal stimuli at night, no changes in her mental status. On interview the patient denies new symptoms, waiting for placement. Mental Status Exam Mental Status Exam Patient Appearance: Well Grooomed and Appropriate Patient Orientation: Person Level of Consciousness: Awake Patient Behavior: Guarded and Passive Mood Description: Withdrawn Affect Description: Constricted Patient Cognition Impaired: Yes Ability to Follow Directions: Good Speech Pattern: Clear Hallucinations: None Delusions: Not Present Thought Process: Linear Thought Content: positive for [place] and positive for Poverty of Content Judgement: Poor Diagnostics Vital Signs (24Hr): Vital Signs - 24 hr 11/18/23 18:00 11/19/23 06:00 Temperature 98.6 F 97.1 F Pulse Rate 70 64 Respiratory Rate 18 16 Blood Pressure 139/78 135/65 Pulse Oximetry 96 98 Oxygen Delivery Method Room Air Room Air BMI result Body Mass Index 27.7 Labs 11/13/23 08:28 11/13/23 08:28 Labs: Laboratory Results - last 48 hr 11/17/23 11/18/23 11/18/23 19:56 05:58 19:46 POC Glucose 213 H 149 H 172 H 11/19/23 06:05 POC Glucose 118 H Imaging Radiology Impressions: ITS Impressions Brain MRI 04/03/23 15:30 IMPRESSION: No acute infarct, mass lesion, intracranial hemorrhage, or evidence of hydrocephalus. Mild nonspecific T2/FLAIR hyperintensity in the cerebral white matter and danny presumably on the basis of chronic microangiopathy. Cervical Spine CT 07/03/23 20:12 IMPRESSION: No acute findings within the cervical spine. The cervical central canal is not well assessed on this CT due to artifact. If weakness persists, a cervical spine MRI would be more sensitive in assessment. Medications Medications Current Medications Acetaminophen (Acetaminophen 325 Mg Tablet) 650 mg PO Q6H PRN PRN Reason: Pain, Mild (Pain Scale 1-3) Last Admin: 11/18/23 20:34 Dose: 650 mg Amphetamine/Dextroamphetamine (Amphetamine Mixed Salts 10 Mg Tablet) 5 mg PO BID@0800,1700 [facility] Last Admin: 10/27/23 08:55 Dose: 5 mg Bisacodyl (Bisacodyl 5 Mg Tablet.Dr) 10 mg PO DAILY PRN PRN Reason: Constipation Last Admin: 10/13/23 23:19 Dose: 10 mg Docusate Sodium (Docusate Sodium 100 Mg Capsule) 100 mg PO BID [facility] Last Admin: 11/19/23 09:23 Dose: 100 mg Guaifenesin (Guaifenesin La 600 Mg Tab.Er.12h) 600 mg PO BID PRN PRN Reason: Cough Last Admin: 11/02/23 21:54 Dose: 600 mg Insulin Glargine (Insulin Glargine,Hum.Rec.Anlog 100 Unit/Ml 10 Ml Vial) 6 unit SUBCUT DAILY [facility] Last Admin: 11/19/23 09:24 Dose: 6 unit Magnesium Oxide (Magnesium Oxide 400 Mg Tablet) 400 mg PO BIDPC [facility] Last Admin: 11/19/23 09:23 Dose: 400 mg Memantine (Memantine Hcl 10 Mg Tablet) 10 mg PO BID [facility] Last Admin: 11/19/23 09:23 Dose: 10 mg Olanzapine (Olanzapine 5 Mg Tablet) 5 mg PO BEDTIME [facility] Last Admin: 11/18/23 20:34 Dose: 5 mg Olanzapine (Olanzapine 5 Mg Tablet) 5 mg PO Q4H PRN PRN Reason: agitation Last Admin: 11/18/23 21:48 Dose: 5 mg Polyethylene Glycol (Polyethylene Glycol 3350 17 Gm Powd.Pack) 17 gm PO DAILY [facility] Last Admin: 11/19/23 09:24 Dose: 17 gm Senna (Sennosides 8.6 Mg Tablet) 17.2 mg PO BEDTIME [facility] Last Admin: 11/18/23 20:34 Dose: 17.2 mg Sertraline HCl (Sertraline Hcl 100 Mg Tablet) 200 mg PO DAILY [facility] Last Admin: 11/19/23 09:24 Dose: 200 mg Trazodone HCl (Trazodone Hcl 50 Mg Tablet) 50 mg PO BEDTIME MRX1 PRN PRN Reason: Sleep Last Admin: 11/18/23 21:48 Dose: 50 mg Allergies Allergies Allergy/AdvReac Type Severity Reaction Status Date / Time No Known Allergies Allergy Verified 03/23/23 18:13 Assessment & Plan Assessment & Plan (1) Alzheimer's dementia: Status: Acute Code(s): G30.9 - Alzheimer's disease, unspecified; F02.80 - Dementia in other diseases classified elsewhere, unspecified severity, without behavioral disturbance, psychotic disturbance, mood disturbance, and anxiety Assessment and Plan: August [birth year] 58 years old woman with relative young age onset at Alzheimer dementia but overall clinical picture is affected by significant depression, which continues to be the predominant feature of for clinical picture. Conventional dementia medicines such as donepezil or memantine can be tried but usually do not make significant difference. I would suggest memantine 10 mg twice a day and donepezil 10 mg daily. Recently a new dementia at drug for Alzheimer was approved but only for relatively mild dementia or mild cognitive impairment type of patients. She would not qualify for that drug. 10/18 Patient sitting in chair in the day room, head leaning over to 1 side, resting. When asked how she is doing she says that she has diabetes and that she takes meds for that. 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 Staff reports no changes in behavior but seems to have more frequent lucid moments. 10/27 continue tx. hold adderall due to increase irritability now that she is covid positive. 10/29: symptomatic of COVID - URI Sx. VSS. no change in mental health presentation. continue current mgmt. 10/30: continues laid low by COVID. psych presentation essentially unchanged. continue current mgmt, monitor VS. 10/31 continue tx. 11/05 CTP no change 11/06/23 - CTP 11/11/2023: No changes 11/12/2023: No changes to current plan Plan 1. Continue with other oral Zoloft and other psychotropics. 2. Waiting for placement. 3. Start Zyprexa 5 mg p.o. q.h.s. to target paranoia that started after she got COVID. Plan Plan continue with same treatment Reason for continued inpatient stay Substantial Risk for: inability to function, rapid decompensation and med/psych decompensation Time Spent With Patient Time: Total time managing care of this patient today __20__ minutes.
[2023-11-19] MEDS: OLANZapine 5 MG TABLET PO ×3 (11:33→21:09)
[2023-11-19 18:00] VITALS: BP 138/71; PULSE 77; RESP 18; TEMP 37.2; O2SAT 95
[2023-11-19 20:50] LABS: Glucose, Whole Blood 158 mg/dL (60-115)
[2023-11-19] MEDS: Sennosides 8.6 MG TABLET 17.2 MG PO (21:10)
[2023-11-19] MEDS: traZODone HCL 50 MG TABLET PO ×2 (21:10→22:16)
[2023-11-20] MEDS: Acetaminophen 325 MG TABLET 650 MG PO (02:06)
[2023-11-20] MEDS: OLANZapine 5 MG TABLET PO ×4 (02:06→20:35)
[2023-11-20 06:06] LABS: Glucose, Whole Blood 129 mg/dL (60-115)
[2023-11-20 08:00] VITALS: BP 155/75; PULSE 64; RESP 18; TEMP 36.8; O2SAT 98
[2023-11-20] MEDS: Memantine HCl 10 MG TABLET PO ×2 (09:33→20:35)
[2023-11-20] MEDS: Docusate Sodium 100 MG CAPSULE PO ×2 (09:33→20:35)
[2023-11-20] MEDS: polyethylene glycoL 3350 17 GM POWD.PACK PO (09:33)
[2023-11-20] MEDS: Sertraline HCL 100 MG TABLET 200 MG PO (09:33)
[2023-11-20] MEDS: Magnesium Oxide 400 MG TABLET PO ×2 (09:33→18:01)
[2023-11-20] MEDS: Insulin Glargine,Hum.rec.anlog 100 UNIT/ML 10 ML VIAL 6 UNIT SUBCUT (09:34)
--- NOTE | 2023-11-20 15:39 | HO.PSYCHPN ---
Subjective Subjective Date of Service: 11/20/23 Reason For Visit: hallucinations confusion Subjective Notes: Conditional Voluntary Interim History: The nursing staff reports no changes in her mental status, confused at times but easily redirectable. On interview the patient denies new symptoms, she looks more confused since she got COVID. Mental Status Exam Mental Status Exam Patient Appearance: Well Grooomed and Appropriate Patient Orientation: Person and Situation Level of Consciousness: Awake Patient Behavior: Guarded and Passive Mood Description: Withdrawn Affect Description: Constricted Patient Cognition Impaired: Yes Ability to Follow Directions: Good Speech Pattern: Clear Hallucinations: None Delusions: Ideas of Reference Thought Process: Distracted Thought Content: positive for [place] and positive for Poverty of Content Judgement: Fair Diagnostics Vital Signs (24Hr): Vital Signs - 24 hr 11/19/23 18:00 11/20/23 08:00 Temperature 98.9 F 98.2 F Pulse Rate 77 64 Respiratory Rate 18 18 Blood Pressure 138/71 155/75 H Pulse Oximetry 95 98 Oxygen Delivery Method Room Air Room Air BMI result Body Mass Index 27.7 Labs 11/13/23 08:28 11/13/23 08:28 Labs: Laboratory Results - last 48 hr 11/18/23 11/19/23 11/19/23 19:46 06:05 20:05 POC Glucose 172 H 118 H 158 H 11/20/23 05:56 POC Glucose 129 H Imaging Radiology Impressions: ITS Impressions Brain MRI 04/03/23 15:30 IMPRESSION: No acute infarct, mass lesion, intracranial hemorrhage, or evidence of hydrocephalus. Mild nonspecific T2/FLAIR hyperintensity in the cerebral white matter and danny presumably on the basis of chronic microangiopathy. Cervical Spine CT 07/03/23 20:12 IMPRESSION: No acute findings within the cervical spine. The cervical central canal is not well assessed on this CT due to artifact. If weakness persists, a cervical spine MRI would be more sensitive in assessment. Medications Medications Current Medications Acetaminophen (Acetaminophen 325 Mg Tablet) 650 mg PO Q6H PRN PRN Reason: Pain, Mild (Pain Scale 1-3) Last Admin: 11/20/23 02:06 Dose: 650 mg Amphetamine/Dextroamphetamine (Amphetamine Mixed Salts 10 Mg Tablet) 5 mg PO BID@0800,1700 [facility] Last Admin: 10/27/23 08:55 Dose: 5 mg Bisacodyl (Bisacodyl 5 Mg Tablet.Dr) 10 mg PO DAILY PRN PRN Reason: Constipation Last Admin: 10/13/23 23:19 Dose: 10 mg Docusate Sodium (Docusate Sodium 100 Mg Capsule) 100 mg PO BID [facility] Last Admin: 11/20/23 09:33 Dose: 100 mg Guaifenesin (Guaifenesin La 600 Mg Tab.Er.12h) 600 mg PO BID PRN PRN Reason: Cough Last Admin: 11/02/23 21:54 Dose: 600 mg Insulin Glargine (Insulin Glargine,Hum.Rec.Anlog 100 Unit/Ml 10 Ml Vial) 6 unit SUBCUT DAILY [facility] Last Admin: 11/20/23 09:34 Dose: 6 unit Magnesium Oxide (Magnesium Oxide 400 Mg Tablet) 400 mg PO BIDPC [facility] Last Admin: 11/20/23 09:33 Dose: 400 mg Memantine (Memantine Hcl 10 Mg Tablet) 10 mg PO BID [facility] Last Admin: 11/20/23 09:33 Dose: 10 mg Olanzapine (Olanzapine 5 Mg Tablet) 5 mg PO BEDTIME [facility] Last Admin: 11/19/23 21:09 Dose: 5 mg Olanzapine (Olanzapine 5 Mg Tablet) 5 mg PO Q4H PRN PRN Reason: agitation Last Admin: 11/20/23 14:01 Dose: 5 mg Polyethylene Glycol (Polyethylene Glycol 3350 17 Gm Powd.Pack) 17 gm PO DAILY [facility] Last Admin: 11/20/23 09:33 Dose: 17 gm Senna (Sennosides 8.6 Mg Tablet) 17.2 mg PO BEDTIME [facility] Last Admin: 11/19/23 21:10 Dose: 17.2 mg Sertraline HCl (Sertraline Hcl 100 Mg Tablet) 200 mg PO DAILY [facility] Last Admin: 11/20/23 09:33 Dose: 200 mg Trazodone HCl (Trazodone Hcl 50 Mg Tablet) 50 mg PO BEDTIME MRX1 PRN PRN Reason: Sleep Last Admin: 11/19/23 22:16 Dose: 50 mg Allergies Allergies Allergy/AdvReac Type Severity Reaction Status Date / Time No Known Allergies Allergy Verified 03/23/23 18:13 Assessment & Plan Assessment & Plan (1) Alzheimer's dementia: Status: Acute Code(s): G30.9 - Alzheimer's disease, unspecified; F02.80 - Dementia in other diseases classified elsewhere, unspecified severity, without behavioral disturbance, psychotic disturbance, mood disturbance, and anxiety Assessment and Plan: August 24 58 years old woman with relative young age onset at Alzheimer dementia but overall clinical picture is affected by significant depression, which continues to be the predominant feature of for clinical picture. Conventional dementia medicines such as donepezil or memantine can be tried but usually do not make significant difference. I would suggest memantine 10 mg twice a day and donepezil 10 mg daily. Recently a new dementia at drug for Alzheimer was approved but only for relatively mild dementia or mild cognitive impairment type of patients. She would not qualify for that drug. 10/18 Patient sitting in chair in the day room, head leaning over to 1 side, resting. When asked how she is doing she says that she has diabetes and that she takes meds for that. She asks if chief underwriter will be down here again. Staff reports no changes in behavior but seems to have more frequent lucid moments. 10/27 continue tx. hold adderall due to increase irritability now that she is covid positive. 10/29: symptomatic of COVID - URI Sx. VSS. no change in mental health presentation. continue current mgmt. 10/30: continues laid low by COVID. psych presentation essentially unchanged. continue current mgmt, monitor VS. 10/31 continue tx. 11/05 CTP no change 11/06/23 - CTP 11/11/2023: No changes 11/12/2023: No changes to current plan Plan 1. Continue with other oral Zoloft and other psychotropics. 2. Waiting for placement. 3. Start Zyprexa 5 mg p.o. q.h.s. to target paranoia that started after she got COVID. Plan Plan continue with same treatment Reason for continued inpatient stay Substantial Risk for: inability to function, rapid decompensation and med/psych decompensation Time Spent With Patient Time: Total time managing care of this patient today _20___ minutes.
[2023-11-20 20:32] VITALS: BP 124/60; PULSE 69; RESP 16; TEMP 36.6; O2SAT 96
[2023-11-20] MEDS: Sennosides 8.6 MG TABLET 17.2 MG PO (20:35)
--- NOTE | 2023-11-21 00:10 | PC.NURSE ---
Assumed care of patient 11/20 at 19:00. See shift assessments and EMAR for full details. Handoff report given to oncoming RN 23:00.
[2023-11-21] MEDS: traZODone HCL 50 MG TABLET PO ×2 (01:18→20:36)
[2023-11-21] MEDS: OLANZapine 5 MG TABLET PO ×4 (01:20→20:36)
[2023-11-21 08:00] VITALS: BP 133/97; PULSE 65; RESP 18; TEMP 36.8; O2SAT 97
--- NOTE | 2023-11-21 08:23 | P.PNPSI_ITS ---
Subjective Subjective Date of Service: 11/21/23 Reason For Visit: hallucinations confusion Subjective Notes: Conditional Voluntary Interim History: The nursing staff reported no changes in her mental status she remains pleasantly confused. On interview the patient denies new symptoms, waiting for placement. Mental Status Exam Mental Status Exam Patient Appearance: Appropriate Patient Orientation: Person and Situation Level of Consciousness: Awake and Appropriate Patient Behavior: Guarded and Passive Mood Description: Withdrawn Affect Description: Constricted Patient Cognition Impaired: Yes Ability to Follow Directions: Good Speech Pattern: Clear Hallucinations: None Delusions: Ideas of Reference Thought Process: Distracted and Evasive Thought Content: positive for [place] and positive for Poverty of Content Judgement: Fair Diagnostics Vital Signs (24Hr): Vital Signs - 24 hr 11/20/23 20:32 Temperature 97.9 F Pulse Rate 69 Respiratory Rate 16 Blood Pressure 124/60 Pulse Oximetry 96 Oxygen Delivery Method Room Air BMI result Body Mass Index 27.7 Labs 11/13/23 08:28 11/13/23 08:28 Labs: Laboratory Results - last 48 hr 11/19/23 11/20/23 20:05 05:56 POC Glucose 158 H 129 H Imaging Radiology Impressions: ITS Impressions Brain MRI 04/03/23 15:30 IMPRESSION: No acute infarct, mass lesion, intracranial hemorrhage, or evidence of hydrocephalus. Mild nonspecific T2/FLAIR hyperintensity in the cerebral white matter and danny presumably on the basis of chronic microangiopathy. Cervical Spine CT 07/03/23 20:12 IMPRESSION: No acute findings within the cervical spine. The cervical central canal is not well assessed on this CT due to artifact. If weakness persists, a cervical spine MRI would be more sensitive in assessment. Medications Medications Current Medications Acetaminophen (Acetaminophen 325 Mg Tablet) 650 mg PO Q6H PRN PRN Reason: Pain, Mild (Pain Scale 1-3) Last Admin: 11/20/23 02:06 Dose: 650 mg Amphetamine/Dextroamphetamine (Amphetamine Mixed Salts 10 Mg Tablet) 5 mg PO BID@0800,1700 [facility] Last Admin: 10/27/23 08:55 Dose: 5 mg Bisacodyl (Bisacodyl 5 Mg Tablet.Dr) 10 mg PO DAILY PRN PRN Reason: Constipation Last Admin: 10/13/23 23:19 Dose: 10 mg Docusate Sodium (Docusate Sodium 100 Mg Capsule) 100 mg PO BID [facility] Last Admin: 11/20/23 20:35 Dose: 100 mg Guaifenesin (Guaifenesin La 600 Mg Tab.Er.12h) 600 mg PO BID PRN PRN Reason: Cough Last Admin: 11/02/23 21:54 Dose: 600 mg Insulin Glargine (Insulin Glargine,Hum.Rec.Anlog 100 Unit/Ml 10 Ml Vial) 6 unit SUBCUT DAILY [facility] Last Admin: 11/20/23 09:34 Dose: 6 unit Magnesium Oxide (Magnesium Oxide 400 Mg Tablet) 400 mg PO BIDPC [facility] Last Admin: 11/20/23 18:01 Dose: 400 mg Memantine (Memantine Hcl 10 Mg Tablet) 10 mg PO BID [facility] Last Admin: 11/20/23 20:35 Dose: 10 mg Olanzapine (Olanzapine 5 Mg Tablet) 5 mg PO BEDTIME [facility] Last Admin: 11/20/23 20:35 Dose: 5 mg Olanzapine (Olanzapine 5 Mg Tablet) 5 mg PO Q4H PRN PRN Reason: agitation Last Admin: 11/21/23 01:20 Dose: 5 mg Polyethylene Glycol (Polyethylene Glycol 3350 17 Gm Powd.Pack) 17 gm PO DAILY [facility] Last Admin: 11/20/23 09:33 Dose: 17 gm Senna (Sennosides 8.6 Mg Tablet) 17.2 mg PO BEDTIME [facility] Last Admin: 11/20/23 20:35 Dose: 17.2 mg Sertraline HCl (Sertraline Hcl 100 Mg Tablet) 200 mg PO DAILY [facility] Last Admin: 11/20/23 09:33 Dose: 200 mg Trazodone HCl (Trazodone Hcl 50 Mg Tablet) 50 mg PO BEDTIME MRX1 PRN PRN Reason: Sleep Last Admin: 11/21/23 01:18 Dose: 50 mg Allergies Allergies Allergy/AdvReac Type Severity Reaction Status Date / Time No Known Allergies Allergy Verified 03/23/23 18:13 Assessment & Plan Assessment & Plan (1) Alzheimer's dementia: Status: Acute Code(s): G30.9 - Alzheimer's disease, unspecified; F02.80 - Dementia in other diseases classified elsewhere, unspecified severity, without behavioral disturbance, psychotic disturbance, mood disturbance, and anxiety Assessment and Plan: August 24 58 years old woman with relative young age onset at Alzheimer dementia but overall clinical picture is affected by significant depression, which continues to be the predominant feature of for clinical picture. Conventional dementia medicines such as donepezil or memantine can be tried but usually do not make significant difference. I would suggest memantine 10 mg twice a day and donepezil 10 mg daily. Recently a new dementia at drug for Alzheimer was approved but only for relatively mild dementia or mild cognitive impairment type of patients. She would not qualify for that drug. 10/18 Patient sitting in chair in the day room, head leaning over to 1 side, resting. When asked how she is doing she says that she has diabetes and that she takes meds for that. 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 Staff reports no changes in behavior but seems to have more frequent lucid moments. 10/27 continue tx. hold adderall due to increase irritability now that she is covid positive. 10/29: symptomatic of COVID - URI Sx. VSS. no change in mental health presentation. continue current mgmt. 10/30: continues laid low by COVID. psych presentation essentially unchanged. continue current mgmt, monitor VS. 10/31 continue tx. 11/05 CTP no change 11/06/23 - CTP 11/11/2023: No changes 11/12/2023: No changes to current plan Plan 1. Continue with other oral Zoloft and other psychotropics. 2. Waiting for placement. 3. Start Zyprexa 5 mg p.o. q.h.s. to target paranoia that started after she got COVID. Plan Plan continue with same treatment Reason for continued inpatient stay Substantial Risk for: inability to function, rapid decompensation and med/psych decompensation Time Spent With Patient Time: Total time managing care of this patient today __20__ minutes.
[2023-11-21] MEDS: Docusate Sodium 100 MG CAPSULE PO ×2 (08:28→20:36)
[2023-11-21] MEDS: Sertraline HCL 100 MG TABLET 200 MG PO (08:29)
[2023-11-21] MEDS: Insulin Glargine,Hum.rec.anlog 100 UNIT/ML 10 ML VIAL 6 UNIT SUBCUT (08:29)
[2023-11-21] MEDS: Magnesium Oxide 400 MG TABLET PO ×2 (08:29→17:33)
[2023-11-21] MEDS: Memantine HCl 10 MG TABLET PO ×2 (08:29→20:36)
[2023-11-21] MEDS: polyethylene glycoL 3350 17 GM POWD.PACK PO (08:30)
[2023-11-21 10:35] LABS: Glucose, Whole Blood 196 mg/dL (60-115)
[2023-11-21 19:46] LABS: Glucose, Whole Blood 158 mg/dL (60-115)
[2023-11-21 20:11] VITALS: BP 138/61; PULSE 82; RESP 17; TEMP 37.2; O2SAT 97
[2023-11-21] MEDS: Sennosides 8.6 MG TABLET 17.2 MG PO (20:36)
[2023-11-22] MEDS: Acetaminophen 325 MG TABLET 650 MG PO ×2 (00:25→20:39)
[2023-11-22] MEDS: traZODone HCL 50 MG TABLET PO ×3 (00:25→23:17)
[2023-11-22] MEDS: OLANZapine 5 MG TABLET PO (00:30)
[2023-11-22 06:03] LABS: Glucose, Whole Blood 151 mg/dL (60-115)
[2023-11-22 07:55] VITALS: BP 147/63; PULSE 62; RESP 18; TEMP 36.8; O2SAT 99
[2023-11-22] MEDS: Memantine HCl 10 MG TABLET PO ×2 (08:21→20:40)
[2023-11-22] MEDS: Docusate Sodium 100 MG CAPSULE PO ×2 (08:21→20:40)
[2023-11-22] MEDS: Sertraline HCL 100 MG TABLET 200 MG PO (08:22)
[2023-11-22] MEDS: polyethylene glycoL 3350 17 GM POWD.PACK PO (08:22)
[2023-11-22] MEDS: Insulin Glargine,Hum.rec.anlog 100 UNIT/ML 10 ML VIAL 6 UNIT SUBCUT (08:22)
[2023-11-22] MEDS: Magnesium Oxide 400 MG TABLET PO ×2 (08:22→16:53)
[2023-11-22 11:33] LABS: Glucose, Whole Blood 194 mg/dL (60-115)
--- NOTE | 2023-11-22 14:14 | P.PNPSI_ITS ---
Subjective Subjective Date of Service: 11/22/23 Reason For Visit: hallucinations confusion Subjective Notes: Conditional Voluntary Interim History: The nursing staff reported the patient had been more psychotic, responding to internal stimuli with visual hallucinations. She slept only 2 hours. It seems that she has not responding to Zyprexa and Ativan the p.r.n.. On interview the patient denies new symptoms she looks tired we decided to change to Haldol that she was in the past. Mental Status Exam Mental Status Exam Patient Appearance: Appropriate Patient Orientation: Person and Situation Level of Consciousness: Awake Patient Behavior: Guarded and Passive Mood Description: Withdrawn Affect Description: Constricted Patient Cognition Impaired: Yes Ability to Follow Directions: Good Speech Pattern: Clear Hallucinations: Auditory and Visual Delusions: Paranoid Ideation and Ideas of Reference Thought Process: Distracted and Slowed Thinking Thought Content: positive for Poverty of Content and positive for Tangential Judgement: Fair Diagnostics Vital Signs (24Hr): Vital Signs - 24 hr 11/21/23 20:11 11/22/23 07:55 Temperature 99 F 98.2 F Pulse Rate 82 62 Respiratory Rate 17 18 Blood Pressure 138/61 147/63 H Pulse Oximetry 97 99 Oxygen Delivery Method Room Air Room Air BMI result Body Mass Index 27.7 Labs 11/13/23 08:28 11/13/23 08:28 Labs: Laboratory Results - last 48 hr 11/21/23 11/21/23 11/22/23 10:31 19:38 05:59 POC Glucose 196 H 158 H 151 H 11/22/23 11:30 POC Glucose 194 H Imaging Radiology Impressions: ITS Impressions Brain MRI 04/03/23 15:30 IMPRESSION: No acute infarct, mass lesion, intracranial hemorrhage, or evidence of hydrocephalus. Mild nonspecific T2/FLAIR hyperintensity in the cerebral white matter and danny presumably on the basis of chronic microangiopathy. Cervical Spine CT 07/03/23 20:12 IMPRESSION: No acute findings within the cervical spine. The cervical central canal is not well assessed on this CT due to artifact. If weakness persists, a cervical spine MRI would be more sensitive in assessment. Medications Medications Current Medications Acetaminophen (Acetaminophen 325 Mg Tablet) 650 mg PO Q6H PRN PRN Reason: Pain, Mild (Pain Scale 1-3) Last Admin: 11/22/23 00:25 Dose: 650 mg Amphetamine/Dextroamphetamine (Amphetamine Mixed Salts 10 Mg Tablet) 5 mg PO BID@0800,1700 [facility] Last Admin: 10/27/23 08:55 Dose: 5 mg Bisacodyl (Bisacodyl 5 Mg Tablet.Dr) 10 mg PO DAILY PRN PRN Reason: Constipation Last Admin: 10/13/23 23:19 Dose: 10 mg Docusate Sodium (Docusate Sodium 100 Mg Capsule) 100 mg PO BID [facility] Last Admin: 11/22/23 08:21 Dose: 100 mg Guaifenesin (Guaifenesin La 600 Mg Tab.Er.12h) 600 mg PO BID PRN PRN Reason: Cough Last Admin: 11/02/23 21:54 Dose: 600 mg Haloperidol (Haloperidol 1 Mg Tablet) 1 mg PO TID [facility] Haloperidol (Haloperidol 1 Mg Tablet) 1 mg PO Q4H PRN PRN Reason: Hallucinations Insulin Glargine (Insulin Glargine,Hum.Rec.Anlog 100 Unit/Ml 10 Ml Vial) 6 unit SUBCUT DAILY [facility] Last Admin: 11/22/23 08:22 Dose: 6 unit Magnesium Oxide (Magnesium Oxide 400 Mg Tablet) 400 mg PO BIDPC [facility] Last Admin: 11/22/23 08:22 Dose: 400 mg Memantine (Memantine Hcl 10 Mg Tablet) 10 mg PO BID [facility] Last Admin: 11/22/23 08:21 Dose: 10 mg Polyethylene Glycol (Polyethylene Glycol 3350 17 Gm Powd.Pack) 17 gm PO DAILY [facility] Last Admin: 11/22/23 08:22 Dose: 17 gm Senna (Sennosides 8.6 Mg Tablet) 17.2 mg PO BEDTIME [facility] Last Admin: 11/21/23 20:36 Dose: 17.2 mg Sertraline HCl (Sertraline Hcl 100 Mg Tablet) 200 mg PO DAILY [facility] Last Admin: 11/22/23 08:22 Dose: 200 mg Trazodone HCl (Trazodone Hcl 50 Mg Tablet) 50 mg PO BEDTIME MRX1 PRN PRN Reason: Sleep Last Admin: 11/22/23 00:25 Dose: 50 mg Allergies Allergies Allergy/AdvReac Type Severity Reaction Status Date / Time No Known Allergies Allergy Verified 03/23/23 18:13 Assessment & Plan Assessment & Plan (1) Alzheimer's dementia: Status: Acute Code(s): G30.9 - Alzheimer's disease, unspecified; F02.80 - Dementia in other diseases classified elsewhere, unspecified severity, without behavioral disturbance, psychotic disturbance, mood disturbance, and anxiety Assessment and Plan: August 24 58 years old woman with relative young age onset at Alzheimer dementia but overall clinical picture is affected by significant depression, which continues to be the predominant feature of for clinical picture. Conventional dementia medicines such as donepezil or memantine can be tried but usually do not make significant difference. I would suggest memantine 10 mg twice a day and donepezil 10 mg daily. Recently a new dementia at drug for Alzheimer was approved but only for relatively mild dementia or mild cognitive impairment type of patients. She would not qualify for that drug. 10/18 Patient sitting in chair in the day room, head leaning over to 1 side, resting. When asked how she is doing she says that she has diabetes and that she takes meds for that. She asks if flex o writer operator will be down here again. Staff reports no changes in behavior but seems to have more frequent lucid moments. 10/27 continue tx. hold adderall due to increase irritability now that she is covid positive. 10/29: symptomatic of COVID - URI Sx. VSS. no change in mental health presentation. continue current mgmt. 10/30: continues laid low by COVID. psych presentation essentially unchanged. continue current mgmt, monitor VS. 10/31 continue tx. 11/05 CTP no change 11/06/23 - CTP 11/11/2023: No changes 11/12/2023: No changes to current plan Plan 1. Continue with other oral Zoloft and other psychotropics. 2. Waiting for placement. 3. Start Zyprexa 5 mg p.o. q.h.s. to target paranoia that started after she got COVID. On November 22 we discontinue Zyprexa. 4. Haldol b.i.d. and p.r.n.. Plan Plan continue with same treatment Reason for continued inpatient stay Substantial Risk for: inability to function, rapid decompensation and med/psych decompensation Time Spent With Patient Time: Total time managing care of this patient today __20__ minutes.
[2023-11-22] MEDS: HaloperidoL 1 MG TABLET PO ×3 (15:16→23:17)
[2023-11-22 18:00] VITALS: BP 156/67; PULSE 66; RESP 18; TEMP 36.4; O2SAT 98
[2023-11-22] MEDS: Sennosides 8.6 MG TABLET 17.2 MG PO (20:39)
[2023-11-22 20:48] LABS: Glucose, Whole Blood 191 mg/dL (60-115)
[2023-11-23 06:23] LABS: Glucose, Whole Blood 116 mg/dL (60-115)
[2023-11-23 07:00] VITALS: BMI 27.1
[2023-11-23 08:25] VITALS: BP 150/68; PULSE 54; RESP 14; TEMP 37.4; O2SAT 97
[2023-11-23] MEDS: Sertraline HCL 100 MG TABLET 200 MG PO (08:34)
[2023-11-23] MEDS: Docusate Sodium 100 MG CAPSULE PO ×2 (08:35→20:04)
[2023-11-23] MEDS: Memantine HCl 10 MG TABLET PO ×2 (08:35→20:04)
[2023-11-23] MEDS: Insulin Glargine,Hum.rec.anlog 100 UNIT/ML 10 ML VIAL 6 UNIT SUBCUT (08:35)
[2023-11-23] MEDS: Magnesium Oxide 400 MG TABLET PO ×2 (08:35→17:08)
[2023-11-23] MEDS: polyethylene glycoL 3350 17 GM POWD.PACK PO (08:40)
--- NOTE | 2023-11-23 14:14 | P.PNPSI_ITS ---
Subjective Subjective Date of Service: 11/23/23 Reason For Visit: hallucinations confusion Subjective Notes: Conditional Voluntary Interim History: The nursing staff reported that since Haldol was started the patient is more over-sedated. The social media community manager reported that she had not been financially cleared for the retirement facility. On interview the patient denies new symptoms. We are going to lower the Haldol to avoid over-sedation. Mental Status Exam Mental Status Exam Patient Appearance: Appropriate Patient Orientation: Person and Situation Level of Consciousness: Awake and Appropriate Patient Behavior: Guarded and Suspicious Mood Description: Withdrawn Affect Description: Constricted Patient Cognition Impaired: Yes Ability to Follow Directions: Good Speech Pattern: Clear Hallucinations: None Delusions: Ideas of Reference Thought Process: Distracted and Slowed Thinking Thought Content: positive for [place] and positive for Poverty of Content Judgement: Fair Diagnostics Vital Signs (24Hr): Vital Signs - 24 hr 11/22/23 18:00 11/23/23 08:25 Temperature 97.6 F 99.3 F Pulse Rate 66 54 Respiratory Rate 18 14 Blood Pressure 156/67 H 150/68 H Pulse Oximetry 98 97 Oxygen Delivery Method Room Air Room Air BMI result Body Mass Index 27.7 Labs 11/13/23 08:28 11/13/23 08:28 Labs: Laboratory Results - last 48 hr 11/21/23 11/22/23 11/22/23 19:38 05:59 11:30 POC Glucose 158 H 151 H 194 H 11/22/23 11/23/23 20:39 06:08 POC Glucose 191 H 116 H Imaging Radiology Impressions: ITS Impressions Brain MRI 04/03/23 15:30 IMPRESSION: No acute infarct, mass lesion, intracranial hemorrhage, or evidence of hydrocephalus. Mild nonspecific T2/FLAIR hyperintensity in the cerebral white matter and danny presumably on the basis of chronic microangiopathy. Cervical Spine CT 07/03/23 20:12 IMPRESSION: No acute findings within the cervical spine. The cervical central canal is not well assessed on this CT due to artifact. If weakness persists, a cervical spine MRI would be more sensitive in assessment. Medications Medications Current Medications Acetaminophen (Acetaminophen 325 Mg Tablet) 650 mg PO Q6H PRN PRN Reason: Pain, Mild (Pain Scale 1-3) Last Admin: 11/22/23 20:39 Dose: 650 mg Amphetamine/Dextroamphetamine (Amphetamine Mixed Salts 10 Mg Tablet) 5 mg PO BID@0800,1700 [facility] Last Admin: 10/27/23 08:55 Dose: 5 mg Bisacodyl (Bisacodyl 5 Mg Tablet.Dr) 10 mg PO DAILY PRN PRN Reason: Constipation Last Admin: 10/13/23 23:19 Dose: 10 mg Docusate Sodium (Docusate Sodium 100 Mg Capsule) 100 mg PO BID [facility] Last Admin: 11/23/23 08:35 Dose: 100 mg Guaifenesin (Guaifenesin La 600 Mg Tab.Er.12h) 600 mg PO BID PRN PRN Reason: Cough Last Admin: 11/02/23 21:54 Dose: 600 mg Haloperidol (Haloperidol 1 Mg Tablet) 1 mg PO TID [facility] Last Admin: 11/23/23 08:36 Dose: Not Given Haloperidol (Haloperidol 1 Mg Tablet) 1 mg PO Q4H PRN PRN Reason: Hallucinations Last Admin: 11/22/23 23:17 Dose: 1 mg Insulin Glargine (Insulin Glargine,Hum.Rec.Anlog 100 Unit/Ml 10 Ml Vial) 6 unit SUBCUT DAILY [facility] Last Admin: 11/23/23 08:35 Dose: 6 unit Magnesium Oxide (Magnesium Oxide 400 Mg Tablet) 400 mg PO BIDPC [facility] Last Admin: 11/23/23 08:35 Dose: 400 mg Memantine (Memantine Hcl 10 Mg Tablet) 10 mg PO BID [facility] Last Admin: 11/23/23 08:35 Dose: 10 mg Polyethylene Glycol (Polyethylene Glycol 3350 17 Gm Powd.Pack) 17 gm PO DAILY [facility] Last Admin: 11/23/23 08:40 Dose: 17 gm Senna (Sennosides 8.6 Mg Tablet) 17.2 mg PO BEDTIME [facility] Last Admin: 11/22/23 20:39 Dose: 17.2 mg Sertraline HCl (Sertraline Hcl 100 Mg Tablet) 200 mg PO DAILY [facility] Last Admin: 11/23/23 08:34 Dose: 200 mg Trazodone HCl (Trazodone Hcl 50 Mg Tablet) 50 mg PO BEDTIME MRX1 PRN PRN Reason: Sleep Last Admin: 11/22/23 23:17 Dose: 50 mg Allergies Allergies Allergy/AdvReac Type Severity Reaction Status Date / Time No Known Allergies Allergy Verified 03/23/23 18:13 Assessment & Plan Assessment & Plan (1) Alzheimer's dementia: Status: Acute Code(s): G30.9 - Alzheimer's disease, unspecified; F02.80 - Dementia in other diseases classified elsewhere, unspecified severity, without behavioral disturbance, psychotic disturbance, mood disturbance, and anxiety Assessment and Plan: August 24 58 years old woman with relative young age onset at Alzheimer dementia but overall clinical picture is affected by significant depression, which continues to be the predominant feature of for clinical picture. Conventional dementia medicines such as donepezil or memantine can be tried but usually do not make significant difference. I would suggest memantine 10 mg twice a day and donepezil 10 mg daily. Recently a new dementia at drug for Alzheimer was approved but only for relatively mild dementia or mild cognitive impairment type of patients. She would not qualify for that drug. 10/18 Patient sitting in chair in the day room, head leaning over to 1 side, resting. When asked how she is doing she says that she has diabetes and that she takes meds for that. She asks if engineering writer will be down here again. Staff reports no changes in behavior but seems to have more frequent lucid moments. 10/27 continue tx. hold adderall due to increase irritability now that she is covid positive. 10/29: symptomatic of COVID - URI Sx. VSS. no change in mental health presentation. continue current mgmt. 10/30: continues laid low by COVID. psych presentation essentially unchanged. continue current mgmt, monitor VS. 10/31 continue tx. 11/05 CTP no change 11/06/23 - CTP 11/11/2023: No changes 11/12/2023: No changes to current plan Plan 1. Continue with other oral Zoloft and other psychotropics. 2. Waiting for placement. 3. Start Zyprexa 5 mg p.o. q.h.s. to target paranoia that started after she got COVID. On November 22 we discontinue Zyprexa. 4. Haldol b.i.d. and p.r.n.. Plan Plan continue with same treatment Reason for continued inpatient stay Substantial Risk for: inability to function, rapid decompensation and med/psych decompensation Time Spent With Patient Time: Total time managing care of this patient today __20__ minutes.
[2023-11-23 19:39] LABS: Glucose, Whole Blood 143 mg/dL (60-115)
[2023-11-23 20:01] VITALS: BP 130/60; PULSE 69; RESP 18; TEMP 36; O2SAT 96
[2023-11-23] MEDS: HaloperidoL 1 MG TABLET PO (20:04)
[2023-11-23] MEDS: Sennosides 8.6 MG TABLET 17.2 MG PO (20:04)
[2023-11-24] MEDS: HaloperidoL 1 MG TABLET PO ×5 (02:45→20:49)
[2023-11-24 06:37] LABS: Glucose, Whole Blood 159 mg/dL (60-115)
[2023-11-24 07:50] VITALS: BP 118/74; PULSE 81; RESP 16; TEMP 37.1; O2SAT 100
[2023-11-24] MEDS: Sertraline HCL 100 MG TABLET 200 MG PO (08:25)
[2023-11-24] MEDS: Magnesium Oxide 400 MG TABLET PO ×2 (08:25→16:59)
[2023-11-24] MEDS: polyethylene glycoL 3350 17 GM POWD.PACK PO (08:26)
[2023-11-24] MEDS: Memantine HCl 10 MG TABLET PO ×2 (08:26→19:40)
[2023-11-24] MEDS: Insulin Glargine,Hum.rec.anlog 100 UNIT/ML 10 ML VIAL 6 UNIT SUBCUT (08:26)
[2023-11-24] MEDS: Docusate Sodium 100 MG CAPSULE PO ×2 (08:27→19:40)
--- NOTE | 2023-11-24 08:38 | P.PNPSI_ITS ---
Subjective Subjective Date of Service: 11/24/23 Reason For Visit: hallucinations confusion Subjective Notes: Conditional Voluntary Interim History: Pt was less psychotic during the day yesterday. She had difficulty sleeping through the night. changed scheduled of adderall for last dose to be at 1500, not 1700. Added melatonin. No behavioral concerns. Review of Systems Review of Systems Unremarkable Yes all other systems are reviewed and are negative and Unobtainable due to mental status Constitutional: Reports as per HPI, Denies chills, Denies fatigue, Denies fever(s) and Denies headache(s) Denies headache(s) Cardiovascular: Denies chest pain and Denies dyspnea Respiratory: Denies cough and Denies dyspnea Gastrointestinal: Denies abdominal pain, Denies constipation and Denies vomiting Denies headache(s) and Denies focal weakness Psychiatric: Denies auditory hallucinations, Reports hallucinations (Per the patient's daughter. Patient denies this), Denies tactile hallucinations and Denies suicidal ideation Endocrine: Denies fatigue Mental Status Exam Mental Status Exam Patient Appearance: Appropriate Patient Orientation: Person and Situation Level of Consciousness: Awake and Appropriate Patient Behavior: Guarded and Suspicious Behavior Comments: Eyes remain closed Mood Description: Withdrawn Affect Description: Constricted Patient Cognition Impaired: Yes Ability to Follow Directions: Good Speech Pattern: Clear Memory Description: Working Impaired Diagnostics Vital Signs (24Hr): Vital Signs - 24 hr 11/23/23 20:01 Temperature 96.8 F Pulse Rate 69 Respiratory Rate 18 Blood Pressure 130/60 Pulse Oximetry 96 Oxygen Delivery Method Room Air BMI result Body Mass Index 27.1 Labs 11/13/23 08:28 11/13/23 08:28 Labs: Laboratory Results - last 48 hr 11/22/23 11/22/23 11/23/23 11:30 20:39 06:08 POC Glucose 194 H 191 H 116 H 11/23/23 11/24/23 19:34 06:33 POC Glucose 143 H 159 H Imaging Radiology Impressions: ITS Impressions Brain MRI 04/03/23 15:30 IMPRESSION: No acute infarct, mass lesion, intracranial hemorrhage, or evidence of hydrocephalus. Mild nonspecific T2/FLAIR hyperintensity in the cerebral white matter and danny presumably on the basis of chronic microangiopathy. Cervical Spine CT 07/03/23 20:12 IMPRESSION: No acute findings within the cervical spine. The cervical central canal is not well assessed on this CT due to artifact. If weakness persists, a cervical spine MRI would be more sensitive in assessment. Medications Medications Current Medications Acetaminophen (Acetaminophen 325 Mg Tablet) 650 mg PO Q6H PRN PRN Reason: Pain, Mild (Pain Scale 1-3) Last Admin: 11/22/23 20:39 Dose: 650 mg Amphetamine/Dextroamphetamine (Amphetamine Mixed Salts 10 Mg Tablet) 5 mg PO BID@0800,1700 [facility] Last Admin: 10/27/23 08:55 Dose: 5 mg Bisacodyl (Bisacodyl 5 Mg Tablet.Dr) 10 mg PO DAILY PRN PRN Reason: Constipation Last Admin: 10/13/23 23:19 Dose: 10 mg Docusate Sodium (Docusate Sodium 100 Mg Capsule) 100 mg PO BID [facility] Last Admin: 11/24/23 08:27 Dose: 100 mg Guaifenesin (Guaifenesin La 600 Mg Tab.Er.12h) 600 mg PO BID PRN PRN Reason: Cough Last Admin: 11/02/23 21:54 Dose: 600 mg Haloperidol (Haloperidol 1 Mg Tablet) 1 mg PO Q4H PRN PRN Reason: Hallucinations Last Admin: 11/24/23 02:45 Dose: 1 mg Haloperidol (Haloperidol 1 Mg Tablet) 1 mg PO BID [facility] Last Admin: 11/24/23 08:26 Dose: 1 mg Insulin Glargine (Insulin Glargine,Hum.Rec.Anlog 100 Unit/Ml 10 Ml Vial) 6 unit SUBCUT DAILY [facility] Last Admin: 11/24/23 08:26 Dose: 6 unit Magnesium Oxide (Magnesium [facility]ide 400 Mg Tablet) [facility] Last Admin: 11/24/23 08:25 Dose: 400 mg Memantine (Memantine Hcl 10 Mg Tablet) 10 mg PO BID [facility] Last Admin: 11/24/23 08:26 Dose: 10 mg Polyethylene Glycol (Polyethylene Glycol 3350 17 Gm Powd.Pack) 17 gm PO DAILY [facility] Last Admin: 11/24/23 08:26 Dose: 17 gm Senna (Sennosides 8.6 Mg Tablet) 17.2 mg PO BEDTIME [facility] Last Admin: 11/23/23 20:04 Dose: 17.2 mg Sertraline HCl (Sertraline Hcl 100 Mg Tablet) 200 mg PO DAILY [facility] Last Admin: 11/24/23 08:25 Dose: 200 mg Trazodone HCl (Trazodone Hcl 50 Mg Tablet) 50 mg PO BEDTIME MRX1 PRN PRN Reason: Sleep Last Admin: 11/22/23 23:17 Dose: 50 mg Allergies Allergies Allergy/AdvReac Type Severity Reaction Status Date / Time No Known Allergies Allergy Verified 03/23/23 18:13 Assessment & Plan Assessment & Plan (1) Alzheimer's dementia: Status: Acute Code(s): G30.9 - Alzheimer's disease, unspecified; F02.80 - Dementia in other diseases classified elsewhere, unspecified severity, without behavioral disturbance, psychotic disturbance, mood disturbance, and anxiety Assessment and Plan: August 24 58 years old woman with relative young age onset at Alzheimer dementia but overall clinical picture is affected by significant depression, which continues to be the predominant feature of for clinical picture. Conventional dementia medicines such as donepezil or memantine can be tried but usually do not make significant difference. I would suggest memantine 10 mg twice a day and donepezil 10 mg daily. Recently a new dementia at drug for Alzheimer was approved but only for relatively mild dementia or mild cognitive impairment type of patients. She would not qualify for that drug. 10/18 Patient sitting in chair in the day room, head leaning over to 1 side, resting. When asked how she is doing she says that she has diabetes and that she takes meds for that. She asks if insurance writer will be down here again. Staff reports no changes in behavior but seems to have more frequent lucid moments. 10/27 continue tx. hold adderall due to increase irritability now that she is covid positive. 10/29: symptomatic of COVID - URI Sx. VSS. no change in mental health presentation. continue current mgmt. 10/30: continues laid low by COVID. psych presentation essentially unchanged. continue current mgmt, monitor VS. 10/31 continue tx. 11/05 CTP no change 11/06/23 - CTP 11/11/2023: No changes 11/12/2023: No changes to current plan Plan 11/24 change timing of adderall so last dose not too late to disrupt sleep. added melatonin. Plan Plan continue with same treatment Reason for continued inpatient stay Substantial Risk for: inability to function Time Spent With Patient Time: Total time managing care of this patient today ____ minutes.
[2023-11-24 19:38] LABS: Glucose, Whole Blood 232 mg/dL (60-115)
[2023-11-24] MEDS: Sennosides 8.6 MG TABLET 17.2 MG PO (19:40)
[2023-11-24] MEDS: Melatonin 3 MG TABLET 6 MG PO (19:40)
[2023-11-24 19:52] VITALS: BP 125/58; PULSE 69; RESP 18; TEMP 36.6; O2SAT 96
[2023-11-25 06:10] LABS: Glucose, Whole Blood 86 mg/dL (60-115)
[2023-11-25] MEDS: Magnesium Oxide 400 MG TABLET PO ×2 (09:50→18:38)
[2023-11-25] MEDS: polyethylene glycoL 3350 17 GM POWD.PACK PO (09:50)
[2023-11-25] MEDS: Sertraline HCL 50 MG TABLET 150 MG PO (09:50)
[2023-11-25] MEDS: Memantine HCl 10 MG TABLET PO ×2 (09:50→20:44)
[2023-11-25] MEDS: Insulin Glargine,Hum.rec.anlog 100 UNIT/ML 10 ML VIAL 6 UNIT SUBCUT (09:50)
[2023-11-25] MEDS: Docusate Sodium 100 MG CAPSULE PO ×2 (09:51→20:44)
[2023-11-25] MEDS: HaloperidoL 1 MG TABLET PO ×3 (09:51→20:44)
[2023-11-25 10:10] VITALS: BP 133/61; PULSE 59; RESP 16; TEMP 36.7; O2SAT 98
--- NOTE | 2023-11-25 17:14 | HO.PSYCHPN ---
Subjective Subjective Date of Service: 11/25/23 Reason For Visit: hallucinations confusion Interim History: Met with patient; discussed with team; reviewed chart pt remains with paranoid delusions; took Haldol as prn which helped some, but telling conventional mortgage underwriter they are out to get her...and then said don't stop it referring to some unknown thing she would not elaborate on. taking meds Mental Status Exam Mental Status Exam Patient Appearance: Appropriate Patient Orientation: Person and Situation Level of Consciousness: Awake and Appropriate Patient Behavior: Guarded, Suspicious, Sundowning and Poor Eye Contact Mood Description: Constricted and Anxious Affect Description: Constricted Patient Cognition Impaired: Yes Ability to Follow Directions: Good Speech Pattern: Clear Memory Description: Working Impaired Delusions: Paranoid Ideation Thought Process: Distracted and Goal Oriented Thought Content: positive for Preoccupation (delusions) Abnormal Motor Activity Signs and Symptoms: Agitation (mild) Judgement: Poor Judgement and Insight: impaired Diagnostics Vital Signs (24Hr): Vital Signs - 24 hr 11/24/23 19:52 11/25/23 10:10 Temperature 97.9 F 98.0 F Pulse Rate 69 59 Respiratory Rate 18 16 Blood Pressure 125/58 L 133/61 Pulse Oximetry 96 98 Oxygen Delivery Method Room Air Room Air BMI result Body Mass Index 27.1 Labs 11/13/23 08:28 11/13/23 08:28 Labs: Laboratory Results - last 48 hr 11/23/23 11/24/23 11/24/23 19:34 06:33 19:33 POC Glucose 143 H 159 H 232 H 11/25/23 05:58 POC Glucose 86 Imaging Radiology Impressions: ITS Impressions Brain MRI 04/03/23 15:30 IMPRESSION: No acute infarct, mass lesion, intracranial hemorrhage, or evidence of hydrocephalus. Mild nonspecific T2/FLAIR hyperintensity in the cerebral white matter and danny presumably on the basis of chronic microangiopathy. Cervical Spine CT 07/03/23 20:12 IMPRESSION: No acute findings within the cervical spine. The cervical central canal is not well assessed on this CT due to artifact. If weakness persists, a cervical spine MRI would be more sensitive in assessment. Medications Medications Current Medications Acetaminophen (Acetaminophen 325 Mg Tablet) 650 mg PO Q6H PRN PRN Reason: Pain, Mild (Pain Scale 1-3) Last Admin: 11/22/23 20:39 Dose: 650 mg Amphetamine/Dextroamphetamine (Amphetamine Mixed Salts 10 Mg Tablet) 5 mg PO BID@0800,1500 [facility] Bisacodyl (Bisacodyl 5 Mg Tablet.Dr) 10 mg PO DAILY PRN PRN Reason: Constipation Last Admin: 10/13/23 23:19 Dose: 10 mg Docusate Sodium (Docusate Sodium 100 Mg Capsule) 100 mg PO BID [facility] Last Admin: 11/25/23 09:51 Dose: 100 mg Guaifenesin (Guaifenesin La 600 Mg Tab.Er.12h) 600 mg PO BID PRN PRN Reason: Cough Last Admin: 11/02/23 21:54 Dose: 600 mg Haloperidol (Haloperidol 1 Mg Tablet) 1 mg PO Q4H PRN PRN Reason: Hallucinations Last Admin: 11/25/23 16:46 Dose: 1 mg Haloperidol (Haloperidol 1 Mg Tablet) 1 mg PO BID [facility] Last Admin: 11/25/23 09:51 Dose: 1 mg Insulin Glargine (Insulin Glargine,Hum.Rec.Anlog 100 Unit/Ml 10 Ml Vial) 6 unit SUBCUT DAILY [facility] Last Admin: 11/25/23 09:50 Dose: 6 unit Magnesium Oxide (Magnesium Oxide 400 Mg Tablet) 400 mg PO BIDPC [facility] Last Admin: 11/25/23 09:50 Dose: 400 mg Melatonin (Melatonin 3 Mg Tablet) 6 mg PO BEDTIME [facility] Last Admin: 11/24/23 19:40 Dose: 6 mg Memantine (Memantine Hcl 10 Mg Tablet) 10 mg PO BID [facility] Last Admin: 11/25/23 09:50 Dose: 10 mg Polyethylene Glycol (Polyethylene Glycol 3350 17 Gm Powd.Pack) 17 gm PO DAILY [facility] Last Admin: 11/25/23 09:50 Dose: 17 gm Senna (Sennosides 8.6 Mg Tablet) 17.2 mg PO BEDTIME [facility] Last Admin: 11/24/23 19:40 Dose: 17.2 mg Sertraline HCl (Sertraline Hcl 50 Mg Tablet) 150 mg PO DAILY [facility] Last Admin: 11/25/23 09:50 Dose: 150 mg Trazodone HCl (Trazodone Hcl 50 Mg Tablet) 50 mg PO BEDTIME MRX1 PRN PRN Reason: Sleep Last Admin: 11/22/23 23:17 Dose: 50 mg Allergies Allergies Allergy/AdvReac Type Severity Reaction Status Date / Time No Known Allergies Allergy Verified 03/23/23 18:13 Assessment & Plan Assessment & Plan (1) Alzheimer's dementia: Status: Acute Code(s): G30.9 - Alzheimer's disease, unspecified; F02.80 - Dementia in other diseases classified elsewhere, unspecified severity, without behavioral disturbance, psychotic disturbance, mood disturbance, and anxiety Assessment and Plan: August 24 58 years old woman with relative young age onset at Alzheimer dementia but overall clinical picture is affected by significant depression, which continues to be the predominant feature of for clinical picture. Conventional dementia medicines such as donepezil or memantine can be tried but usually do not make significant difference. I would suggest memantine 10 mg twice a day and donepezil 10 mg daily. Recently a new dementia at drug for Alzheimer was approved but only for relatively mild dementia or mild cognitive impairment type of patients. She would not qualify for that drug. 10/18 Patient sitting in chair in the day room, head leaning over to 1 side, resting. When asked how she is doing she says that she has diabetes and that she takes meds for that. She asks if conventional mortgage underwriter will be down here again. Staff reports no changes in behavior but seems to have more frequent lucid moments. 10/27 continue tx. hold adderall due to increase irritability now that she is covid positive. 10/29: symptomatic of COVID - URI Sx. VSS. no change in mental health presentation. continue current mgmt. 10/30: continues laid low by COVID. psych presentation essentially unchanged. continue current mgmt, monitor VS. 10/31 continue tx. 11/05 CTP no change 11/06/23 - CTP 11/11/2023: No changes 11/12/2023: No changes to current plan Plan 11/24 change timing of adderall so last dose not too late to disrupt sleep. added melatonin. 11/25 pt remains with paranoid delusions; took Haldol as prn which helped some, but telling conventional mortgage underwriter they are out to get her...and then said don't stop it referring to some unknown thing she would not elaborate on. -taking meds Plan Plan continue with same treatment Patient educated on: diagnosis Informed Consent: does not understand Reason for continued inpatient stay Substantial Risk for: inability to function Time Spent With Patient Time: Total time managing care of this patient today ____ minutes.
[2023-11-25 20:39] VITALS: BP 118/59; PULSE 62; RESP 16; TEMP 36.5; O2SAT 98
[2023-11-25] MEDS: Sennosides 8.6 MG TABLET 17.2 MG PO (20:44)
[2023-11-25] MEDS: Melatonin 3 MG TABLET 6 MG PO (20:44)
[2023-11-26 06:27] LABS: Glucose, Whole Blood 104 mg/dL (60-115)
[2023-11-26 08:31] VITALS: BP 132/66; PULSE 81; RESP 17; TEMP 36.1; O2SAT 97
[2023-11-26] MEDS: Docusate Sodium 100 MG CAPSULE PO ×2 (08:33→22:11)
[2023-11-26] MEDS: Sertraline HCL 50 MG TABLET 150 MG PO (08:33)
[2023-11-26] MEDS: Magnesium Oxide 400 MG TABLET PO ×2 (08:33→18:24)
[2023-11-26] MEDS: Memantine HCl 10 MG TABLET PO ×2 (08:33→22:10)
[2023-11-26] MEDS: HaloperidoL 1 MG TABLET PO ×3 (08:33→22:10)
[2023-11-26] MEDS: Insulin Glargine,Hum.rec.anlog 100 UNIT/ML 10 ML VIAL 6 UNIT SUBCUT (08:38)
[2023-11-26] MEDS: polyethylene glycoL 3350 17 GM POWD.PACK PO (08:41)
[2023-11-26] MEDS: Acetaminophen 325 MG TABLET 650 MG PO (08:45)
[2023-11-26 18:00] VITALS: BP 150/70; PULSE 72; RESP 16; TEMP 36.1; O2SAT 98
[2023-11-26 20:07] LABS: Glucose, Whole Blood 190 mg/dL (60-115)
[2023-11-26] MEDS: Sennosides 8.6 MG TABLET 17.2 MG PO (22:12)
--- NOTE | 2023-11-26 23:54 | P.PNPSI_ITS ---
Subjective Subjective Date of Service: 11/26/23 Reason For Visit: hallucinations confusion Interim History: met with patient; discussed with team Again patient became paranoid however today it was earlier in the day. She refused Haldol. Regeneration Operator tried to discuss this with her about how it would help but she continued to refuse. Patient in emotional distress, expressing delusional thoughts saying there coming here, I need help... But with no explanation. While talking with her patient became focused on a napkin on the ground, pointing at it saying what is that, what is that and as technical document writer showed it was just a napkin, she moved on. Mental Status Exam Mental Status Exam Patient Appearance: Appropriate Patient Orientation: Person and Situation Level of Consciousness: Awake and Appropriate Patient Behavior: Guarded, Suspicious, Sundowning and Poor Eye Contact Mood Description: Constricted and Anxious Affect Description: Constricted Patient Cognition Impaired: Yes Ability to Follow Directions: Good Speech Pattern: Clear Memory Description: Working Impaired Delusions: Paranoid Ideation Thought Process: Distracted and Goal Oriented Thought Content: positive for Preoccupation (delusions) Abnormal Motor Activity Signs and Symptoms: Agitation (mild) Judgement: Poor Judgement and Insight: impaired Diagnostics Vital Signs (24Hr): Vital Signs - 24 hr 11/26/23 08:31 11/26/23 18:00 Temperature 96.9 F 97 F Pulse Rate 81 72 Respiratory Rate 17 16 Blood Pressure 132/66 150/70 H Pulse Oximetry 97 98 Oxygen Delivery Method Room Air Room Air BMI result Body Mass Index 27.1 Labs 11/13/23 08:28 11/13/23 08:28 Labs: Laboratory Results - last 48 hr 11/25/23 11/26/23 11/26/23 05:58 06:04 20:02 POC Glucose 86 104 190 H Imaging Radiology Impressions: ITS Impressions Brain MRI 04/03/23 15:30 IMPRESSION: No acute infarct, mass lesion, intracranial hemorrhage, or evidence of hydrocephalus. Mild nonspecific T2/FLAIR hyperintensity in the cerebral white matter and danny presumably on the basis of chronic microangiopathy. Cervical Spine CT 07/03/23 20:12 IMPRESSION: No acute findings within the cervical spine. The cervical central canal is not well assessed on this CT due to artifact. If weakness persists, a cervical spine MRI would be more sensitive in assessment. Medications Medications Current Medications Acetaminophen (Acetaminophen 325 Mg Tablet) 650 mg PO Q6H PRN PRN Reason: Pain, Mild (Pain Scale 1-3) Last Admin: 11/26/23 08:45 Dose: 650 mg Amphetamine/Dextroamphetamine (Amphetamine Mixed Salts 10 Mg Tablet) 5 mg PO BID@0800,1500 ON [facility] Bisacodyl (Bisacodyl 5 Mg Tablet.Dr) 10 mg PO DAILY PRN PRN Reason: Constipation Last Admin: 10/13/23 23:19 Dose: 10 mg Docusate Sodium (Docusate Sodium 100 Mg Capsule) 100 mg PO BID ON [facility] Last Admin: 11/26/23 22:11 Dose: 100 mg Guaifenesin (Guaifenesin La 600 Mg Tab.Er.12h) 600 mg PO BID PRN PRN Reason: Cough Last Admin: 11/02/23 21:54 Dose: 600 mg Haloperidol (Haloperidol 1 Mg Tablet) 1 mg PO Q4H PRN PRN Reason: Hallucinations Last Admin: 11/26/23 10:41 Dose: 1 mg Haloperidol (Haloperidol 1 Mg Tablet) 1 mg PO BID [facility] Last Admin: 11/26/23 22:10 Dose: 1 mg Insulin Glargine (Insulin Glargine,Hum.Rec.Anlog 100 Unit/Ml 10 Ml Vial) 6 unit SUBCUT DAILY [facility] Last Admin: 11/26/23 08:38 Dose: 6 unit Magnesium Oxide (Magnesium Oxide 400 Mg Tablet) 400 mg PO BIDPC ON [facility] Last Admin: 11/26/23 18:24 Dose: 400 mg Melatonin (Melatonin 3 Mg Tablet) 6 mg PO BEDTIME [facility] Last Admin: 11/26/23 22:12 Dose: Not Given Memantine (Memantine Hcl 10 Mg Tablet) 10 mg PO BID ON [facility] Last Admin: 11/26/23 22:10 Dose: 10 mg Polyethylene Glycol (Polyethylene Glycol 3350 17 Gm Powd.Pack) 17 gm PO DAILY [facility] Last Admin: 11/26/23 08:41 Dose: 17 gm Senna (Sennosides 8.6 Mg Tablet) 17.2 mg PO BEDTIME [facility] Last Admin: 11/26/23 22:12 Dose: 17.2 mg Sertraline HCl (Sertraline Hcl 50 Mg Tablet) 150 mg PO DAILY [facility] Last Admin: 11/26/23 08:33 Dose: 150 mg Trazodone HCl (Trazodone Hcl 50 Mg Tablet) 50 mg PO BEDTIME MRX1 PRN PRN Reason: Sleep Last Admin: 11/22/23 23:17 Dose: 50 mg Allergies Allergies Allergy/AdvReac Type Severity Reaction Status Date / Time No Known Allergies Allergy Verified 03/23/23 18:13 Assessment & Plan Assessment & Plan (1) Alzheimer's dementia: Status: Acute Code(s): G30.9 - Alzheimer's disease, unspecified; F02.80 - Dementia in other diseases classified elsewhere, unspecified severity, without behavioral disturbance, psychotic disturbance, mood disturbance, and anxiety Assessment and Plan: August 24 58 years old woman with relative young age onset at Alzheimer dementia but overall clinical picture is affected by significant depression, which continues to be the predominant feature of for clinical picture. Conventional dementia medicines such as donepezil or memantine can be tried but usually do not make significant difference. I would suggest memantine 10 mg twice a day and donepezil 10 mg daily. Recently a new dementia at drug for Alzheimer was approved but only for relatively mild dementia or mild cognitive impairment type of patients. She would not qualify for that drug. 10/18 Patient sitting in chair in the day room, head leaning over to 1 side, resting. When asked how she is doing she says that she has diabetes and that she takes meds for that. She asks if technical document writer will be down here again. Staff reports no changes in behavior but seems to have more frequent lucid moments. 10/27 continue tx. hold adderall due to increase irritability now that she is covid positive. 10/29: symptomatic of COVID - URI Sx. VSS. no change in mental health presentation. continue current mgmt. 10/30: continues laid low by COVID. psych presentation essentially unchanged. continue current mgmt, monitor VS. 10/31 continue tx. 11/05 CTP no change 11/06/23 - CTP 11/11/2023: No changes 11/12/2023: No changes to current plan Plan 11/24 change timing of adderall so last dose not too late to disrupt sleep. added melatonin. 11/25 pt remains with paranoid delusions; took Haldol as prn which helped some, but telling technical document writer they are out to get her...and then said don't stop it referring to some unknown thing she would not elaborate on. -taking meds 11/26 remains distressed, typically in late afternoon early evening but today paranoid thoughts started earlier. Regeneration Operator was considering adding medication try and prevent owning however since it started earlier today, will defer to primary team to assess best timing/changes in medication management. Plan Plan continue with same treatment Patient educated on: diagnosis and medication risk/benefits Informed Consent: does not understand Reason for continued inpatient stay Substantial Risk for: inability to function Time Spent With Patient Time: Total time managing care of this patient today ____ minutes.
[2023-11-27 06:00] VITALS: BP 158/70; PULSE 60; RESP 14; TEMP 36.6; O2SAT 98
[2023-11-27 06:22] LABS: Glucose, Whole Blood 126 mg/dL (60-115)
[2023-11-27] MEDS: polyethylene glycoL 3350 17 GM POWD.PACK PO (08:35)
[2023-11-27] MEDS: Docusate Sodium 100 MG CAPSULE PO ×2 (08:36→19:39)
[2023-11-27] MEDS: Magnesium Oxide 400 MG TABLET PO ×2 (08:37→16:07)
[2023-11-27] MEDS: Insulin Glargine,Hum.rec.anlog 100 UNIT/ML 10 ML VIAL 6 UNIT SUBCUT (08:37)
[2023-11-27] MEDS: Memantine HCl 10 MG TABLET PO ×2 (08:37→19:39)
[2023-11-27] MEDS: Sertraline HCL 50 MG TABLET 150 MG PO (08:37)
[2023-11-27] MEDS: HaloperidoL 1 MG TABLET PO ×5 (08:37→19:38)
--- NOTE | 2023-11-27 14:18 | HO.PSYCHPN ---
Subjective Subjective Date of Service: 11/27/23 Reason For Visit: hallucinations confusion Subjective Notes: Conditional Voluntary Interim History: The nursing staff reported the patient had been slightly more irritable, labile at times. She took her breakfast but she had poor p.o. intake later in the afternoon. She had been delusional talking about her child. The social insurance analyst reported that they are trying to get financial clearance at this moment. On interview the patient remains pleasant, less confused, easily redirectable, waiting for placement. No changes in mental status. Mental Status Exam Mental Status Exam Patient Appearance: Well Grooomed and Appropriate Patient Orientation: Person and Situation Level of Consciousness: Awake Patient Behavior: Passive Mood Description: Calm Affect Description: Blunted Patient Cognition Impaired: Yes Ability to Follow Directions: Good Speech Pattern: Clear Hallucinations: None Delusions: Paranoid Ideation and Ideas of Reference Thought Process: Distracted and Slowed Thinking Thought Content: positive for [place] and positive for Poverty of Content Judgement: Fair Diagnostics Vital Signs (24Hr): Vital Signs - 24 hr 11/26/23 18:00 11/27/23 06:00 Temperature 97 F 98 F Pulse Rate 72 60 Respiratory Rate 16 14 Blood Pressure 150/70 H 158/70 H Pulse Oximetry 98 98 Oxygen Delivery Method Room Air Room Air BMI result Body Mass Index 27.1 Labs 11/13/23 08:28 11/13/23 08:28 Labs: Laboratory Results - last 48 hr 11/26/23 11/26/23 11/27/23 06:04 20:02 06:06 POC Glucose 104 190 H 126 H Imaging Radiology Impressions: ITS Impressions Brain MRI 04/03/23 15:30 IMPRESSION: No acute infarct, mass lesion, intracranial hemorrhage, or evidence of hydrocephalus. Mild nonspecific T2/FLAIR hyperintensity in the cerebral white matter and danny presumably on the basis of chronic microangiopathy. Cervical Spine CT 07/03/23 20:12 IMPRESSION: No acute findings within the cervical spine. The cervical central canal is not well assessed on this CT due to artifact. If weakness persists, a cervical spine MRI would be more sensitive in assessment. Medications Medications Current Medications Acetaminophen (Acetaminophen 325 Mg Tablet) 650 mg PO Q6H PRN PRN Reason: Pain, Mild (Pain Scale 1-3) Last Admin: 11/26/23 08:45 Dose: 650 mg Amphetamine/Dextroamphetamine (Amphetamine Mixed Salts 10 Mg Tablet) 5 mg PO BID@0800,1500 [facility] Bisacodyl (Bisacodyl 5 Mg Tablet.Dr) 10 mg PO DAILY PRN PRN Reason: Constipation Last Admin: 10/13/23 23:19 Dose: 10 mg Docusate Sodium (Docusate Sodium 100 Mg Capsule) 100 mg PO BID [facility] Last Admin: 11/27/23 08:36 Dose: 100 mg Guaifenesin (Guaifenesin La 600 Mg Tab.Er.12h) 600 mg PO BID PRN PRN Reason: Cough Last Admin: 11/02/23 21:54 Dose: 600 mg Haloperidol (Haloperidol 1 Mg Tablet) 1 mg PO Q4H PRN PRN Reason: Hallucinations Last Admin: 11/26/23 10:41 Dose: 1 mg Haloperidol (Haloperidol 1 Mg Tablet) 1 mg PO BID [facility] Last Admin: 11/27/23 12:23 Dose: 1 mg Insulin Glargine (Insulin Glargine,Hum.Rec.Anlog 100 Unit/Ml 10 Ml Vial) 6 unit SUBCUT DAILY [facility] Last Admin: 11/27/23 08:37 Dose: 6 unit Magnesium Oxide (Magnesium Oxide 400 Mg Tablet) 400 mg PO BIDPC [facility] Last Admin: 11/27/23 08:37 Dose: 400 mg Melatonin (Melatonin 3 Mg Tablet) 6 mg PO BEDTIME [facility] Last Admin: 11/26/23 22:12 Dose: Not Given Memantine (Memantine Hcl 10 Mg Tablet) 10 mg PO BID [facility] Last Admin: 11/27/23 08:37 Dose: 10 mg Polyethylene Glycol (Polyethylene Glycol 3350 17 Gm Powd.Pack) 17 gm PO DAILY [facility] Last Admin: 11/27/23 08:35 Dose: 17 gm Senna (Sennosides 8.6 Mg Tablet) 17.2 mg PO BEDTIME [facility] Last Admin: 11/26/23 22:12 Dose: 17.2 mg Sertraline HCl (Sertraline Hcl 50 Mg Tablet) 150 mg PO DAILY [facility] Last Admin: 11/27/23 08:37 Dose: 150 mg Trazodone HCl (Trazodone Hcl 50 Mg Tablet) 50 mg PO BEDTIME MRX1 PRN PRN Reason: Sleep Last Admin: 11/22/23 23:17 Dose: 50 mg Allergies Allergies Allergy/AdvReac Type Severity Reaction Status Date / Time No Known Allergies Allergy Verified 03/23/23 18:13 Assessment & Plan Assessment & Plan (1) Alzheimer's dementia: Status: Acute Code(s): G30.9 - Alzheimer's disease, unspecified; F02.80 - Dementia in other diseases classified elsewhere, unspecified severity, without behavioral disturbance, psychotic disturbance, mood disturbance, and anxiety Assessment and Plan: August 24 58 years old woman with relative young age onset at Alzheimer dementia but overall clinical picture is affected by significant depression, which continues to be the predominant feature of for clinical picture. Conventional dementia medicines such as donepezil or memantine can be tried but usually do not make significant difference. I would suggest memantine 10 mg twice a day and donepezil 10 mg daily. Recently a new dementia at drug for Alzheimer was approved but only for relatively mild dementia or mild cognitive impairment type of patients. She would not qualify for that drug. 10/18 Patient sitting in chair in the day room, head leaning over to 1 side, resting. When asked how she is doing she says that she has diabetes and that she takes meds for that. She asks if marketing underwriter will be down here again. Staff reports no changes in behavior but seems to have more frequent lucid moments. 10/27 continue tx. hold adderall due to increase irritability now that she is covid positive. 10/29: symptomatic of COVID - URI Sx. VSS. no change in mental health presentation. continue current mgmt. 10/30: continues laid low by COVID. psych presentation essentially unchanged. continue current mgmt, monitor VS. 10/31 continue tx. 11/05 CTP no change 11/06/23 - CTP 11/11/2023: No changes 11/12/2023: No changes to current plan Plan 1. Continue with same treatment. 2. Waiting for placement Plan Plan continue with same treatment Reason for continued inpatient stay Substantial Risk for: inability to function, rapid decompensation and med/psych decompensation Time Spent With Patient Time: Total time managing care of this patient today __20__ minutes.
[2023-11-27 18:00] VITALS: BP 117/87; PULSE 67; RESP 18; TEMP 35.9; O2SAT 95
[2023-11-27] MEDS: Sennosides 8.6 MG TABLET 17.2 MG PO (19:37)
[2023-11-27] MEDS: Melatonin 3 MG TABLET 6 MG PO (19:38)
[2023-11-27] MEDS: traZODone HCL 50 MG TABLET PO ×2 (19:39→22:40)
[2023-11-27] MEDS: Acetaminophen 325 MG TABLET 650 MG PO (22:39)
[2023-11-28 06:00] VITALS: BP 128/64; PULSE 68; RESP 16; TEMP 36.2; O2SAT 94
[2023-11-28 06:20] LABS: Glucose, Whole Blood 128 mg/dL (60-115)
[2023-11-28] MEDS: Insulin Glargine,Hum.rec.anlog 100 UNIT/ML 10 ML VIAL 6 UNIT SUBCUT (08:40)
[2023-11-28] MEDS: Sertraline HCL 50 MG TABLET 150 MG PO (11:53)
[2023-11-28] MEDS: Magnesium Oxide 400 MG TABLET PO ×2 (11:54→18:30)
[2023-11-28] MEDS: Docusate Sodium 100 MG CAPSULE PO ×2 (11:54→21:25)
[2023-11-28] MEDS: polyethylene glycoL 3350 17 GM POWD.PACK PO (11:54)
[2023-11-28] MEDS: Memantine HCl 10 MG TABLET PO ×2 (11:54→21:24)
--- NOTE | 2023-11-28 15:02 | HO.PSYCHPN ---
Subjective Subjective Date of Service: 11/28/23 Reason For Visit: hallucinations confusion Subjective Notes: Conditional Voluntary Interim History: The nursing staff reported the patient had been delusional, the p.r.n. has not helped her. On interview the patient looks brighter, I informed her that we are changing her Haldol to 1 mg in the morning and 1 in the evening. The occupational therapist reported that the patient needs assistance with her feeding. Mental Status Exam Mental Status Exam Patient Appearance: Appropriate Patient Orientation: Person and Situation Level of Consciousness: Awake and Appropriate Patient Behavior: Guarded and Passive Mood Description: Withdrawn Affect Description: Calm Patient Cognition Impaired: Yes Ability to Follow Directions: Good Speech Pattern: Clear Hallucinations: None Delusions: Ideas of Reference Thought Content: positive for [place] and positive for Poverty of Content Judgement: Poor Diagnostics Vital Signs (24Hr): Vital Signs - 24 hr 11/27/23 18:00 11/28/23 06:00 Temperature 96.7 F L 97.2 F Pulse Rate 67 68 Respiratory Rate 18 16 Blood Pressure 117/87 128/64 Pulse Oximetry 95 94 Oxygen Delivery Method Room Air Room Air BMI result Body Mass Index 27.1 Labs 11/13/23 08:28 11/13/23 08:28 Labs: Laboratory Results - last 48 hr 11/26/23 11/27/23 11/28/23 20:02 06:06 05:52 POC Glucose 190 H 126 H 128 H Imaging Radiology Impressions: ITS Impressions Brain MRI 04/03/23 15:30 IMPRESSION: No acute infarct, mass lesion, intracranial hemorrhage, or evidence of hydrocephalus. Mild nonspecific T2/FLAIR hyperintensity in the cerebral white matter and danny presumably on the basis of chronic microangiopathy. Cervical Spine CT 07/03/23 20:12 IMPRESSION: No acute findings within the cervical spine. The cervical central canal is not well assessed on this CT due to artifact. If weakness persists, a cervical spine MRI would be more sensitive in assessment. Medications Medications Current Medications Acetaminophen (Acetaminophen 325 Mg Tablet) 650 mg PO Q6H PRN PRN Reason: Pain, Mild (Pain Scale 1-3) Last Admin: 11/27/23 22:39 Dose: 650 mg Amphetamine/Dextroamphetamine (Amphetamine Mixed Salts 10 Mg Tablet) 5 mg PO BID@0800,1500 BEN Bisacodyl (Bisacodyl 5 Mg Tablet.Dr) 10 mg PO DAILY PRN PRN Reason: Constipation Last Admin: 10/13/23 23:19 Dose: 10 mg Docusate Sodium (Docusate Sodium 100 Mg Capsule) 100 mg PO BID [facility] Last Admin: 11/28/23 11:54 Dose: 100 mg Guaifenesin (Guaifenesin La 600 Mg Tab.Er.12h) 600 mg PO BID PRN PRN Reason: Cough Last Admin: 11/02/23 21:54 Dose: 600 mg Haloperidol (Haloperidol 1 Mg Tablet) 1 mg PO Q4H PRN PRN Reason: Hallucinations Last Admin: 11/27/23 19:38 Dose: 1 mg Haloperidol (Haloperidol 1 Mg Tablet) 1 mg PO BID@0830,1630 [facility] Insulin Glargine (Insulin Glargine,Hum.Rec.Anlog 100 Unit/Ml 10 Ml Vial) 6 unit SUBCUT DAILY [facility] Last Admin: 11/28/23 08:40 Dose: 6 unit Magnesium Oxide (Magnesium Oxide 400 Mg Tablet) 400 mg PO BIDPC [facility] Last Admin: 11/28/23 11:54 Dose: 400 mg Melatonin (Melatonin 3 Mg Tablet) 6 mg PO BEDTIME [facility] Last Admin: 11/27/23 19:38 Dose: 6 mg Memantine (Memantine Hcl 10 Mg Tablet) 10 mg PO BID [facility] Last Admin: 11/28/23 11:54 Dose: 10 mg Polyethylene Glycol (Polyethylene Glycol 3350 17 Gm Powd.Pack) 17 gm PO DAILY [facility] Last Admin: 11/28/23 11:54 Dose: 17 gm Senna (Sennosides 8.6 Mg Tablet) 17.2 mg PO BEDTIME [facility] Last Admin: 11/27/23 19:37 Dose: 17.2 mg Sertraline HCl (Sertraline Hcl 50 Mg Tablet) 150 mg PO DAILY [facility] Last Admin: 11/28/23 11:53 Dose: 150 mg Trazodone HCl (Trazodone Hcl 50 Mg Tablet) 50 mg PO BEDTIME MRX1 PRN PRN Reason: Sleep Last Admin: 11/27/23 22:40 Dose: 50 mg Allergies Allergies Allergy/AdvReac Type Severity Reaction Status Date / Time No Known Allergies Allergy Verified 03/23/23 18:13 Assessment & Plan Assessment & Plan (1) Alzheimer's dementia: Status: Acute Code(s): G30.9 - Alzheimer's disease, unspecified; F02.80 - Dementia in other diseases classified elsewhere, unspecified severity, without behavioral disturbance, psychotic disturbance, mood disturbance, and anxiety Assessment and Plan: August [birth year] 58 years old woman with relative young age onset at Alzheimer dementia but overall clinical picture is affected by significant depression, which continues to be the predominant feature of for clinical picture. Conventional dementia medicines such as donepezil or memantine can be tried but usually do not make significant difference. I would suggest memantine 10 mg twice a day and donepezil 10 mg daily. Recently a new dementia at drug for Alzheimer was approved but only for relatively mild dementia or mild cognitive impairment type of patients. She would not qualify for that drug. 10/18 Patient sitting in chair in the day room, head leaning over to 1 side, resting. When asked how she is doing she says that she has diabetes and that she takes meds for that. She asks if physician underwriter will be down here again. Staff reports no changes in behavior but seems to have more frequent lucid moments. 10/27 continue tx. hold adderall due to increase irritability now that she is covid positive. 10/29: symptomatic of COVID - URI Sx. VSS. no change in mental health presentation. continue current mgmt. 10/30: continues laid low by COVID. psych presentation essentially unchanged. continue current mgmt, monitor VS. 10/31 continue tx. 11/05 CTP no change 11/06/23 - CTP 11/11/2023: No changes 11/12/2023: No changes to current plan Plan 1. Continue with current treatment. 2. Waiting for placement. Plan Plan continue with same treatment Reason for continued inpatient stay Substantial Risk for: inability to function, rapid decompensation and med/psych decompensation Time Spent With Patient Time: Total time managing care of this patient today __20__ minutes.
[2023-11-28] MEDS: HaloperidoL 1 MG TABLET PO (18:30)
[2023-11-28 21:15] VITALS: BP 105/55; PULSE 80; RESP 16; TEMP 36.2; O2SAT 96
[2023-11-28] MEDS: Sennosides 8.6 MG TABLET 17.2 MG PO (21:25)
[2023-11-28] MEDS: Melatonin 3 MG TABLET 6 MG PO (21:25)
[2023-11-28 22:28] LABS: Glucose, Whole Blood 155 mg/dL (60-115)
[2023-11-29 06:14] LABS: Glucose, Whole Blood 131 mg/dL (60-115)
[2023-11-29 08:00] VITALS: BP 106/52; PULSE 66; RESP 18; TEMP 36.5; O2SAT 96
[2023-11-29] MEDS: Insulin Glargine,Hum.rec.anlog 100 UNIT/ML 10 ML VIAL 6 UNIT SUBCUT (08:45)
[2023-11-29] MEDS: Magnesium Oxide 400 MG TABLET PO ×2 (08:47→17:34)
[2023-11-29] MEDS: polyethylene glycoL 3350 17 GM POWD.PACK PO (08:48)
[2023-11-29] MEDS: Docusate Sodium 100 MG CAPSULE PO ×2 (08:48→19:35)
[2023-11-29] MEDS: Memantine HCl 10 MG TABLET PO ×2 (08:48→19:35)
[2023-11-29] MEDS: Sertraline HCL 50 MG TABLET 150 MG PO (09:04)
[2023-11-29] MEDS: HaloperidoL 1 MG TABLET PO ×3 (09:16→19:36)
--- NOTE | 2023-11-29 11:58 | P.PNPSI_ITS ---
Subjective Subjective Date of Service: 11/29/23 Reason For Visit: hallucinations confusion Subjective Notes: Conditional Voluntary Interim History: The nursing staff reported the patient had been confused polite she slept well. On interview the patient denies new symptoms, waiting for placement. Mental Status Exam Mental Status Exam Patient Appearance: Appropriate Patient Orientation: Person and Situation Level of Consciousness: Awake Patient Behavior: Guarded and Passive Mood Description: Withdrawn Affect Description: Constricted Patient Cognition Impaired: Yes Ability to Follow Directions: Good Speech Pattern: Clear Hallucinations: None Delusions: Paranoid Ideation and Ideas of Reference Thought Process: Distracted and Slowed Thinking Thought Content: positive for [place] and positive for Poverty of Content Judgement: Fair Diagnostics Vital Signs (24Hr): Vital Signs - 24 hr 11/28/23 21:15 11/29/23 08:00 Temperature 97.2 F 97.7 F Pulse Rate 80 66 Respiratory Rate 16 18 Blood Pressure 105/55 L 106/52 L Pulse Oximetry 96 96 Oxygen Delivery Method Room Air Room Air BMI result Body Mass Index 27.1 Labs 11/13/23 08:28 11/13/23 08:28 Labs: Laboratory Results - last 48 hr 11/28/23 11/28/23 11/29/23 05:52 22:22 06:09 POC Glucose 128 H 155 H 131 H Imaging Radiology Impressions: ITS Impressions Brain MRI 04/03/23 15:30 IMPRESSION: No acute infarct, mass lesion, intracranial hemorrhage, or evidence of hydrocephalus. Mild nonspecific T2/FLAIR hyperintensity in the cerebral white matter and danny presumably on the basis of chronic microangiopathy. Cervical Spine CT 07/03/23 20:12 IMPRESSION: No acute findings within the cervical spine. The cervical central canal is not well assessed on this CT due to artifact. If weakness persists, a cervical spine MRI would be more sensitive in assessment. Medications Medications Current Medications Acetaminophen (Acetaminophen 325 Mg Tablet) 650 mg PO Q6H PRN PRN Reason: Pain, Mild (Pain Scale 1-3) Last Admin: 11/27/23 22:39 Dose: 650 mg Amphetamine/Dextroamphetamine (Amphetamine Mixed Salts 10 Mg Tablet) 5 mg PO BID@0800,1500 BEN Bisacodyl (Bisacodyl 5 Mg Tablet.Dr) 10 mg PO DAILY PRN PRN Reason: Constipation Last Admin: 10/13/23 23:19 Dose: 10 mg Docusate Sodium (Docusate Sodium 100 Mg Capsule) 100 mg PO BID [facility] Last Admin: 11/29/23 08:48 Dose: 100 mg Guaifenesin (Guaifenesin La 600 Mg Tab.Er.12h) 600 mg PO BID PRN PRN Reason: Cough Last Admin: 11/02/23 21:54 Dose: 600 mg Haloperidol (Haloperidol 1 Mg Tablet) 1 mg PO Q4H PRN PRN Reason: Hallucinations Last Admin: 11/27/23 19:38 Dose: 1 mg Haloperidol (Haloperidol 1 Mg Tablet) 1 mg PO BID@0830,1630 [facility] Last Admin: 11/29/23 09:16 Dose: 1 mg Insulin Glargine (Insulin Glargine,Hum.Rec.Anlog 100 Unit/Ml 10 Ml Vial) 6 unit SUBCUT DAILY [facility] Last Admin: 11/29/23 08:45 Dose: 6 unit Magnesium Oxide (Magnesium Oxide 400 Mg Tablet) 400 mg PO BIDPC [facility] Last Admin: 11/29/23 08:47 Dose: 400 mg Melatonin (Melatonin 3 Mg Tablet) 6 mg PO BEDTIME [facility] Last Admin: 11/28/23 21:25 Dose: 6 mg Memantine (Memantine Hcl 10 Mg Tablet) 10 mg PO BID [facility] Last Admin: 11/29/23 08:48 Dose: 10 mg Polyethylene Glycol (Polyethylene Glycol 3350 17 Gm Powd.Pack) 17 gm PO DAILY [facility] Last Admin: 11/29/23 08:48 Dose: 17 gm Senna (Sennosides 8.6 Mg Tablet) 17.2 mg PO BEDTIME [facility] Last Admin: 11/28/23 21:25 Dose: 17.2 mg Sertraline HCl (Sertraline Hcl 50 Mg Tablet) 150 mg PO DAILY [facility] Last Admin: 11/29/23 09:04 Dose: 150 mg Trazodone HCl (Trazodone Hcl 50 Mg Tablet) 50 mg PO BEDTIME MRX1 PRN PRN Reason: Sleep Last Admin: 11/27/23 22:40 Dose: 50 mg Allergies Allergies Allergy/AdvReac Type Severity Reaction Status Date / Time No Known Allergies Allergy Verified 03/23/23 18:13 Assessment & Plan Assessment & Plan (1) Alzheimer's dementia: Status: Acute Code(s): G30.9 - Alzheimer's disease, unspecified; F02.80 - Dementia in other diseases classified elsewhere, unspecified severity, without behavioral disturbance, psychotic disturbance, mood disturbance, and anxiety Assessment and Plan: August 24 58 years old woman with relative young age onset at Alzheimer dementia but overall clinical picture is affected by significant depression, which continues to be the predominant feature of for clinical picture. Conventional dementia medicines such as donepezil or memantine can be tried but usually do not make significant difference. I would suggest memantine 10 mg twice a day and donepezil 10 mg daily. Recently a new dementia at drug for Alzheimer was approved but only for relatively mild dementia or mild cognitive impairment type of patients. She would not qualify for that drug. 10/18 Patient sitting in chair in the day room, head leaning over to 1 side, resting. When asked how she is doing she says that she has diabetes and that she takes meds for that. She asks if medical technical writer will be down here again. Staff reports no changes in behavior but seems to have more frequent lucid moments. 10/27 continue tx. hold adderall due to increase irritability now that she is covid positive. 10/29: symptomatic of COVID - URI Sx. VSS. no change in mental health presentation. continue current mgmt. 10/30: continues laid low by COVID. psych presentation essentially unchanged. continue current mgmt, monitor VS. 10/31 continue tx. 11/05 CTP no change 11/06/23 - CTP 11/11/2023: No changes 11/12/2023: No changes to current plan Plan 1. Continue with current treatment. 2. Waiting for placement. Plan Plan continue with same treatment Reason for continued inpatient stay Substantial Risk for: inability to function, rapid decompensation and med/psych decompensation Time Spent With Patient Time: Total time managing care of this patient today __20__ minutes.
[2023-11-29 19:34] LABS: Glucose, Whole Blood 180 mg/dL (60-115)
[2023-11-29] MEDS: Melatonin 3 MG TABLET 6 MG PO (19:34)
[2023-11-29] MEDS: Sennosides 8.6 MG TABLET 17.2 MG PO (19:35)
[2023-11-29] MEDS: traZODone HCL 50 MG TABLET PO (19:36)
[2023-11-29 19:42] VITALS: BP 143/65; PULSE 67; RESP 16; TEMP 36.9; O2SAT 97
[2023-11-30 06:39] LABS: Glucose, Whole Blood 125 mg/dL (60-115)
[2023-11-30 09:05] VITALS: BP 132/64; PULSE 63; RESP 16; TEMP 36.3; O2SAT 96
[2023-11-30] MEDS: Magnesium Oxide 400 MG TABLET PO ×2 (09:12→16:40)
[2023-11-30] MEDS: HaloperidoL 1 MG TABLET PO ×3 (09:12→19:32)
[2023-11-30] MEDS: Docusate Sodium 100 MG CAPSULE PO ×2 (09:12→19:32)
[2023-11-30] MEDS: Sertraline HCL 50 MG TABLET 150 MG PO (09:12)
[2023-11-30] MEDS: Memantine HCl 10 MG TABLET PO ×2 (09:12→19:32)
[2023-11-30] MEDS: polyethylene glycoL 3350 17 GM POWD.PACK PO (09:13)
[2023-11-30] MEDS: Insulin Glargine,Hum.rec.anlog 100 UNIT/ML 10 ML VIAL 6 UNIT SUBCUT (09:13)
--- NOTE | 2023-11-30 16:25 | P.PNPSI_ITS ---
Subjective Subjective Date of Service: 11/30/23 Reason For Visit: hallucinations confusion Subjective Notes: Conditional Voluntary Interim History: The nursing staff reported the patient showed a brighter mood, slept 7 hours. On interview the patient denies new symptoms, waiting for placement. Mental Status Exam Mental Status Exam Patient Appearance: Well Grooomed and Appropriate Patient Orientation: Person Level of Consciousness: Awake and Appropriate Patient Behavior: Guarded and Passive Mood Description: Withdrawn and Constricted Affect Description: Constricted Patient Cognition Impaired: Yes Ability to Follow Directions: Good Speech Pattern: Clear Hallucinations: None Delusions: Not Present Thought Process: Distracted and Slowed Thinking Thought Content: positive for [place] and positive for Poverty of Content Judgement: Poor Diagnostics Vital Signs (24Hr): Vital Signs - 24 hr 11/29/23 19:42 11/30/23 09:05 Temperature 98.4 F 97.3 F Pulse Rate 67 63 Respiratory Rate 16 16 Blood Pressure 143/65 H 132/64 Pulse Oximetry 97 96 Oxygen Delivery Method Room Air Room Air BMI result Body Mass Index 27.1 Labs 11/13/23 08:28 11/13/23 08:28 Labs: Laboratory Results - last 48 hr 11/28/23 11/29/23 11/29/23 22:22 06:09 19:30 POC Glucose 155 H 131 H 180 H 11/30/23 06:22 POC Glucose 125 H Imaging Radiology Impressions: ITS Impressions Brain MRI 04/03/23 15:30 IMPRESSION: No acute infarct, mass lesion, intracranial hemorrhage, or evidence of hydrocephalus. Mild nonspecific T2/FLAIR hyperintensity in the cerebral white matter and danny presumably on the basis of chronic microangiopathy. Cervical Spine CT 07/03/23 20:12 IMPRESSION: No acute findings within the cervical spine. The cervical central canal is not well assessed on this CT due to artifact. If weakness persists, a cervical spine MRI would be more sensitive in assessment. Medications Medications Current Medications Acetaminophen (Acetaminophen 325 Mg Tablet) 650 mg PO Q6H PRN PRN Reason: Pain, Mild (Pain Scale 1-3) Last Admin: 11/27/23 22:39 Dose: 650 mg Amphetamine/Dextroamphetamine (Amphetamine Mixed Salts 10 Mg Tablet) 5 mg PO BID@0800,1500 BEN Bisacodyl (Bisacodyl 5 Mg Tablet.Dr) 10 mg PO DAILY PRN PRN Reason: Constipation Last Admin: 10/13/23 23:19 Dose: 10 mg Docusate Sodium (Docusate Sodium 100 Mg Capsule) 100 mg PO BID [facility] Last Admin: 11/30/23 09:12 Dose: 100 mg Guaifenesin (Guaifenesin La 600 Mg Tab.Er.12h) 600 mg PO BID PRN PRN Reason: Cough Last Admin: 11/02/23 21:54 Dose: 600 mg Haloperidol (Haloperidol 1 Mg Tablet) 1 mg PO Q4H PRN PRN Reason: Hallucinations Last Admin: 11/29/23 19:36 Dose: 1 mg Haloperidol (Haloperidol 1 Mg Tablet) 1 mg PO BID@0830,1630 [facility] Last Admin: 11/30/23 09:12 Dose: 1 mg Insulin Glargine (Insulin Glargine,Hum.Rec.Anlog 100 Unit/Ml 10 Ml Vial) 6 unit SUBCUT DAILY [facility] Last Admin: 11/30/23 09:13 Dose: 6 unit Magnesium Oxide (Magnesium Oxide 400 Mg Tablet) 400 mg PO BIDPC [facility] Last Admin: 11/30/23 09:12 Dose: 400 mg Melatonin (Melatonin 3 Mg Tablet) 6 mg PO BEDTIME [facility] Last Admin: 11/29/23 19:34 Dose: 6 mg Memantine (Memantine Hcl 10 Mg Tablet) 10 mg PO BID [facility] Last Admin: 11/30/23 09:12 Dose: 10 mg Polyethylene Glycol (Polyethylene Glycol 3350 17 Gm Powd.Pack) 17 gm PO DAILY [facility] Last Admin: 11/30/23 09:13 Dose: 17 gm Senna (Sennosides 8.6 Mg Tablet) 17.2 mg PO BEDTIME [facility] Last Admin: 11/29/23 19:35 Dose: 17.2 mg Sertraline HCl (Sertraline Hcl 50 Mg Tablet) 150 mg PO DAILY [facility] Last Admin: 11/30/23 09:12 Dose: 150 mg Trazodone HCl (Trazodone Hcl 50 Mg Tablet) 50 mg PO BEDTIME MRX1 PRN PRN Reason: Sleep Last Admin: 11/29/23 19:36 Dose: 50 mg Allergies Allergies Allergy/AdvReac Type Severity Reaction Status Date / Time No Known Allergies Allergy Verified 03/23/23 18:13 Assessment & Plan Assessment & Plan (1) Alzheimer's dementia: Status: Acute Code(s): G30.9 - Alzheimer's disease, unspecified; F02.80 - Dementia in other diseases classified elsewhere, unspecified severity, without behavioral disturbance, psychotic disturbance, mood disturbance, and anxiety Assessment and Plan: August 24 58 years old woman with relative young age onset at Alzheimer dementia but overall clinical picture is affected by significant depression, which continues to be the predominant feature of for clinical picture. Conventional dementia medicines such as donepezil or memantine can be tried but usually do not make significant difference. I would suggest memantine 10 mg twice a day and donepezil 10 mg daily. Recently a new dementia at drug for Alzheimer was approved but only for relatively mild dementia or mild cognitive impairment type of patients. She would not qualify for that drug. 10/18 Patient sitting in chair in the day room, head leaning over to 1 side, resting. When asked how she is doing she says that she has diabetes and that she takes meds for that. She asks if video games storywriter will be down here again. Staff reports no changes in behavior but seems to have more frequent lucid moments. 10/27 continue tx. hold adderall due to increase irritability now that she is covid positive. 10/29: symptomatic of COVID - URI Sx. VSS. no change in mental health presentation. continue current mgmt. 10/30: continues laid low by COVID. psych presentation essentially unchanged. continue current mgmt, monitor VS. 10/31 continue tx. 11/05 CTP no change 11/06/23 - CTP 11/11/2023: No changes 11/12/2023: No changes to current plan Plan 1. Continue with current treatment. 2. Waiting for placement. Plan Plan continue with same treatment Reason for continued inpatient stay Substantial Risk for: inability to function, rapid decompensation and med/psych decompensation Time Spent With Patient Time: Total time managing care of this patient today __20__ minutes.
[2023-11-30 19:32] LABS: Glucose, Whole Blood 177 mg/dL (60-115)
[2023-11-30] MEDS: Sennosides 8.6 MG TABLET 17.2 MG PO (19:32)
[2023-11-30] MEDS: Melatonin 3 MG TABLET 6 MG PO (19:32)
[2023-11-30 19:44] VITALS: BP 154/75; PULSE 70; RESP 16; TEMP 36.4; O2SAT 97
[2023-12-01] MEDS: HaloperidoL 1 MG TABLET PO ×4 (03:31→20:55)
[2023-12-01 05:59] LABS: Glucose, Whole Blood 183 mg/dL (60-115)
[2023-12-01 08:12] VITALS: BP 116/61; PULSE 65; RESP 15; TEMP 36.2; O2SAT 97
[2023-12-01] MEDS: Memantine HCl 10 MG TABLET PO ×2 (08:15→20:55)
[2023-12-01] MEDS: Docusate Sodium 100 MG CAPSULE PO ×2 (08:15→20:55)
[2023-12-01] MEDS: Magnesium Oxide 400 MG TABLET PO ×2 (08:15→17:35)
[2023-12-01] MEDS: Insulin Glargine,Hum.rec.anlog 100 UNIT/ML 10 ML VIAL 6 UNIT SUBCUT (08:15)
[2023-12-01] MEDS: Sertraline HCL 50 MG TABLET 150 MG PO (08:15)
[2023-12-01] MEDS: polyethylene glycoL 3350 17 GM POWD.PACK PO (08:16)
[2023-12-01 08:24] VITALS: BMI 26.7
--- NOTE | 2023-12-01 13:12 | HO.PSYCHPN ---
Subjective Subjective Date of Service: 12/01/23 Reason For Visit: hallucinations confusion Subjective Notes: Conditional Voluntary Interim History: The nursing staff reported the patient had been cheerful, confused but easily redirectable. She needed Haldol p.r.n. twice yesterday. On interview the patient denies new symptoms, waiting for placement. Mental Status Exam Mental Status Exam Patient Appearance: Appropriate Patient Orientation: Person Level of Consciousness: Awake and Appropriate Patient Behavior: Guarded and Passive Mood Description: Withdrawn Affect Description: Constricted Patient Cognition Impaired: Yes Ability to Follow Directions: Good Speech Pattern: Clear Hallucinations: None Delusions: Ideas of Reference Thought Process: Linear Thought Content: positive for [place] and positive for Poverty of Content Judgement: Fair Diagnostics Vital Signs (24Hr): Vital Signs - 24 hr 11/30/23 19:44 12/01/23 08:12 Temperature 97.6 F 97.1 F Pulse Rate 70 65 Respiratory Rate 16 15 Blood Pressure 154/75 H 116/61 Pulse Oximetry 97 97 Oxygen Delivery Method Room Air Room Air BMI result Body Mass Index 26.7 Labs 11/13/23 08:28 11/13/23 08:28 Labs: Laboratory Results - last 48 hr 11/29/23 11/30/23 11/30/23 19:30 06:22 19:27 POC Glucose 180 H 125 H 177 H 12/01/23 05:55 POC Glucose 183 H Imaging Radiology Impressions: ITS Impressions Brain MRI 04/03/23 15:30 IMPRESSION: No acute infarct, mass lesion, intracranial hemorrhage, or evidence of hydrocephalus. Mild nonspecific T2/FLAIR hyperintensity in the cerebral white matter and danny presumably on the basis of chronic microangiopathy. Cervical Spine CT 07/03/23 20:12 IMPRESSION: No acute findings within the cervical spine. The cervical central canal is not well assessed on this CT due to artifact. If weakness persists, a cervical spine MRI would be more sensitive in assessment. Medications Medications Current Medications Acetaminophen (Acetaminophen 325 Mg Tablet) 650 mg PO Q6H PRN PRN Reason: Pain, Mild (Pain Scale 1-3) Last Admin: 11/27/23 22:39 Dose: 650 mg Amphetamine/Dextroamphetamine (Amphetamine Mixed Salts 10 Mg Tablet) 5 mg PO BID@0800,1500 [facility] Bisacodyl (Bisacodyl 5 Mg Tablet.Dr) 10 mg PO DAILY PRN PRN Reason: Constipation Last Admin: 10/13/23 23:19 Dose: 10 mg Docusate Sodium (Docusate Sodium 100 Mg Capsule) 100 mg PO BID [facility] Last Admin: 12/01/23 08:15 Dose: 100 mg Guaifenesin (Guaifenesin La 600 Mg Tab.Er.12h) 600 mg PO BID PRN PRN Reason: Cough Last Admin: 11/02/23 21:54 Dose: 600 mg Haloperidol (Haloperidol 1 Mg Tablet) 1 mg PO Q4H PRN PRN Reason: Hallucinations Last Admin: 12/01/23 03:31 Dose: 1 mg Haloperidol (Haloperidol 1 Mg Tablet) 1 mg PO BID@0830,1630 [facility] Last Admin: 12/01/23 08:15 Dose: 1 mg Insulin Glargine (Insulin Glargine,Hum.Rec.Anlog 100 Unit/Ml 10 Ml Vial) 6 unit SUBCUT DAILY [facility] Last Admin: 12/01/23 08:15 Dose: 6 unit Magnesium Oxide (Magnesium Oxide 400 Mg Tablet) 400 mg PO BIDPC [facility] Last Admin: 12/01/23 08:15 Dose: 400 mg Melatonin (Melatonin 3 Mg Tablet) 6 mg PO BEDTIME [facility] Last Admin: 11/30/23 19:32 Dose: 6 mg Memantine (Memantine Hcl 10 Mg Tablet) 10 mg PO BID [facility] Last Admin: 12/01/23 08:15 Dose: 10 mg Polyethylene Glycol (Polyethylene Glycol 3350 17 Gm Powd.Pack) 17 gm PO DAILY [facility] Last Admin: 12/01/23 08:16 Dose: 17 gm Senna (Sennosides 8.6 Mg Tablet) 17.2 mg PO BEDTIME [facility] Last Admin: 11/30/23 19:32 Dose: 17.2 mg Sertraline HCl (Sertraline Hcl 50 Mg Tablet) 150 mg PO DAILY [facility] Last Admin: 12/01/23 08:15 Dose: 150 mg Trazodone HCl (Trazodone Hcl 50 Mg Tablet) 50 mg PO BEDTIME MRX1 PRN PRN Reason: Sleep Last Admin: 11/29/23 19:36 Dose: 50 mg Allergies Allergies Allergy/AdvReac Type Severity Reaction Status Date / Time No Known Allergies Allergy Verified 03/23/23 18:13 Assessment & Plan Assessment & Plan (1) Alzheimer's dementia: Status: Acute Code(s): G30.9 - Alzheimer's disease, unspecified; F02.80 - Dementia in other diseases classified elsewhere, unspecified severity, without behavioral disturbance, psychotic disturbance, mood disturbance, and anxiety Assessment and Plan: August [birth year] 58 years old woman with relative young age onset at Alzheimer dementia but overall clinical picture is affected by significant depression, which continues to be the predominant feature of for clinical picture. Conventional dementia medicines such as donepezil or memantine can be tried but usually do not make significant difference. I would suggest memantine 10 mg twice a day and donepezil 10 mg daily. Recently a new dementia at drug for Alzheimer was approved but only for relatively mild dementia or mild cognitive impairment type of patients. She would not qualify for that drug. 10/18 Patient sitting in chair in the day room, head leaning over to 1 side, resting. When asked how she is doing she says that she has diabetes and that she takes meds for that. 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 Staff reports no changes in behavior but seems to have more frequent lucid moments. 10/27 continue tx. hold adderall due to increase irritability now that she is covid positive. 10/29: symptomatic of COVID - URI Sx. VSS. no change in mental health presentation. continue current mgmt. 10/30: continues laid low by COVID. psych presentation essentially unchanged. continue current mgmt, monitor VS. 10/31 continue tx. 11/05 CTP no change 11/06/23 - CTP 11/11/2023: No changes 11/12/2023: No changes to current plan Plan 1. Continue with current treatment. 2. Waiting for placement. Plan Plan continue with same treatment Reason for continued inpatient stay Substantial Risk for: inability to function, rapid decompensation and med/psych decompensation Time Spent With Patient Time: Total time managing care of this patient today __20__ minutes.
[2023-12-01 18:00] VITALS: PULSE 78; RESP 16; TEMP 37.2; O2SAT 97
[2023-12-01 20:05] LABS: Glucose, Whole Blood 201 mg/dL (60-115)
[2023-12-01] MEDS: Melatonin 3 MG TABLET 6 MG PO (20:55)
[2023-12-01] MEDS: Sennosides 8.6 MG TABLET 17.2 MG PO (20:55)
[2023-12-02 06:45] LABS: Glucose, Whole Blood 119 mg/dL (60-115)
[2023-12-02 08:40] VITALS: BP 124/61; PULSE 65; RESP 16; TEMP 36.6; O2SAT 100
[2023-12-02] MEDS: Magnesium Oxide 400 MG TABLET PO ×2 (08:44→16:30)
[2023-12-02] MEDS: Sertraline HCL 50 MG TABLET 150 MG PO (08:44)
[2023-12-02] MEDS: Memantine HCl 10 MG TABLET PO ×2 (08:44→19:54)
[2023-12-02] MEDS: HaloperidoL 1 MG TABLET PO ×2 (08:44→16:30)
[2023-12-02] MEDS: Docusate Sodium 100 MG CAPSULE PO ×2 (08:44→19:54)
[2023-12-02] MEDS: Insulin Glargine,Hum.rec.anlog 100 UNIT/ML 10 ML VIAL 6 UNIT SUBCUT (08:45)
[2023-12-02] MEDS: polyethylene glycoL 3350 17 GM POWD.PACK PO (08:46)
--- NOTE | 2023-12-02 17:50 | P.PNPSI_ITS ---
Subjective Subjective Date of Service: 12/02/23 Reason For Visit: hallucinations confusion Interim History: The nursing staff reported the patient had been cheerful, confused but easily redirectable. On interview the patient denies new symptoms, waiting for placement. Review of Systems Review of Systems Unremarkable Yes all other systems are reviewed and are negative and Unobtainable due to mental status Constitutional: Reports as per HPI, Denies chills, Denies fatigue, Denies fever(s) and Denies headache(s) Denies headache(s) Cardiovascular: Denies chest pain and Denies dyspnea Respiratory: Denies cough and Denies dyspnea Gastrointestinal: Denies abdominal pain, Denies constipation and Denies vomiting Denies headache(s) and Denies focal weakness Psychiatric: Denies auditory hallucinations, Reports hallucinations (Per the patient's daughter. Patient denies this), Denies tactile hallucinations and Denies suicidal ideation Endocrine: Denies fatigue Mental Status Exam Mental Status Exam Narrative: In room. Hospital clothing. Self-care or poor today. Alert. Not engaging with interview. Patient Appearance: Appropriate Patient Orientation: Person Level of Consciousness: Awake and Appropriate Patient Behavior: Guarded and Passive Behavior Comments: Eyes remain closed Mood Description: Withdrawn Affect Description: Constricted Patient Cognition Impaired: Yes Ability to Follow Directions: Good Speech Pattern: Clear Memory Description: Working Impaired Diagnostics Vital Signs (24Hr): Vital Signs - 24 hr 12/01/23 18:00 12/02/23 08:40 Temperature 99 F 97.8 F Pulse Rate 78 65 Respiratory Rate 16 16 Blood Pressure 124/61 Pulse Oximetry 97 100 Oxygen Delivery Method Room Air Room Air BMI result Body Mass Index 26.7 Labs 11/13/23 08:28 11/13/23 08:28 Labs: Laboratory Results - last 48 hr 11/30/23 12/01/23 12/01/23 19:27 05:55 19:41 POC Glucose 177 H 183 H 201 H 12/02/23 06:26 POC Glucose 119 H Imaging Radiology Impressions: ITS Impressions Brain MRI 04/03/23 15:30 IMPRESSION: No acute infarct, mass lesion, intracranial hemorrhage, or evidence of hydrocephalus. Mild nonspecific T2/FLAIR hyperintensity in the cerebral white matter and danny presumably on the basis of chronic microangiopathy. Cervical Spine CT 07/03/23 20:12 IMPRESSION: No acute findings within the cervical spine. The cervical central canal is not well assessed on this CT due to artifact. If weakness persists, a cervical spine MRI would be more sensitive in assessment. Medications Medications Current Medications Acetaminophen (Acetaminophen 325 Mg Tablet) 650 mg PO Q6H PRN PRN Reason: Pain, Mild (Pain Scale 1-3) Last Admin: 11/27/23 22:39 Dose: 650 mg Amphetamine/Dextroamphetamine (Amphetamine Mixed Salts 10 Mg Tablet) 5 mg PO BID@0800,1500 [facility] Bisacodyl (Bisacodyl 5 Mg Tablet.Dr) 10 mg PO DAILY PRN PRN Reason: Constipation Last Admin: 10/13/23 23:19 Dose: 10 mg Docusate Sodium (Docusate Sodium 100 Mg Capsule) 100 mg PO BID [facility] Last Admin: 12/02/23 08:44 Dose: 100 mg Guaifenesin (Guaifenesin La 600 Mg Tab.Er.12h) 600 mg PO BID PRN PRN Reason: Cough Last Admin: 11/02/23 21:54 Dose: 600 mg Haloperidol (Haloperidol 1 Mg Tablet) 1 mg PO Q4H PRN PRN Reason: Hallucinations Last Admin: 12/01/23 20:55 Dose: 1 mg Haloperidol (Haloperidol 1 Mg Tablet) 1 mg PO BID@0830,1630 [facility] Last Admin: 12/02/23 16:30 Dose: 1 mg Insulin Glargine (Insulin Glargine,Hum.Rec.Anlog 100 Unit/Ml 10 Ml Vial) 6 unit SUBCUT DAILY [facility] Last Admin: 12/02/23 08:45 Dose: 6 unit Magnesium Oxide (Magnesium Oxide 400 Mg Tablet) 400 mg PO BIDPC [facility] Last Admin: 12/02/23 16:30 Dose: 400 mg Melatonin (Melatonin 3 Mg Tablet) 6 mg PO BEDTIME [facility] Last Admin: 12/01/23 20:55 Dose: 6 mg Memantine (Memantine Hcl 10 Mg Tablet) 10 mg PO BID [facility] Last Admin: 12/02/23 08:44 Dose: 10 mg Polyethylene Glycol (Polyethylene Glycol 3350 17 Gm Powd.Pack) 17 gm PO DAILY [facility] Last Admin: 12/02/23 08:46 Dose: 17 gm Senna (Sennosides 8.6 Mg Tablet) 17.2 mg PO BEDTIME [facility] Last Admin: 12/01/23 20:55 Dose: 17.2 mg Sertraline HCl (Sertraline Hcl 50 Mg Tablet) 150 mg PO DAILY [facility] Last Admin: 12/02/23 08:44 Dose: 150 mg Trazodone HCl (Trazodone Hcl 50 Mg Tablet) 50 mg PO BEDTIME MRX1 PRN PRN Reason: Sleep Last Admin: 11/29/23 19:36 Dose: 50 mg Allergies Allergies Allergy/AdvReac Type Severity Reaction Status Date / Time No Known Allergies Allergy Verified 03/23/23 18:13 Assessment & Plan Assessment & Plan (1) Alzheimer's dementia: Status: Acute Code(s): G30.9 - Alzheimer's disease, unspecified; F02.80 - Dementia in other diseases classified elsewhere, unspecified severity, without behavioral disturbance, psychotic disturbance, mood disturbance, and anxiety Assessment and Plan: August 24 58 years old woman with relative young age onset at Alzheimer dementia but overall clinical picture is affected by significant depression, which continues to be the predominant feature of for clinical picture. Conventional dementia medicines such as donepezil or memantine can be tried but usually do not make significant difference. I would suggest memantine 10 mg twice a day and donepezil 10 mg daily. Recently a new dementia at drug for Alzheimer was approved but only for relatively mild dementia or mild cognitive impairment type of patients. She would not qualify for that drug. 10/18 Patient sitting in chair in the day room, head leaning over to 1 side, resting. When asked how she is doing she says that she has diabetes and that she takes meds for that. 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 Staff reports no changes in behavior but seems to have more frequent lucid moments. 10/27 continue tx. hold adderall due to increase irritability now that she is covid positive. 10/29: symptomatic of COVID - URI Sx. VSS. no change in mental health presentation. continue current mgmt. 10/30: continues laid low by COVID. psych presentation essentially unchanged. continue current mgmt, monitor VS. 10/31 continue tx. 11/05 CTP no change 11/06/23 - CTP 11/11/2023: No changes 11/12/2023: No changes to current plan Plan 1. Continue with current treatment. 2. Waiting for placement. 12/02: Continue current management and treatment plan. Plan Plan continue with same treatment Reason for continued inpatient stay Substantial Risk for: inability to function and rapid decompensation Time Spent With Patient Time: Total time managing care of this patient today ____ minutes.
[2023-12-02 19:35] VITALS: BP 124/69; PULSE 65; RESP 18; TEMP 36.3; O2SAT 95
[2023-12-02] MEDS: traZODone HCL 50 MG TABLET PO (19:54)
[2023-12-02] MEDS: Melatonin 3 MG TABLET 6 MG PO (19:54)
[2023-12-02] MEDS: Sennosides 8.6 MG TABLET 17.2 MG PO (19:54)
[2023-12-02 20:38] LABS: Glucose, Whole Blood 205 mg/dL (60-115)
[2023-12-03 06:00] VITALS: BP 137/67; PULSE 58; RESP 16; TEMP 36; O2SAT 97
[2023-12-03 06:30] LABS: Glucose, Whole Blood 122 mg/dL (60-115)
[2023-12-03] MEDS: Sertraline HCL 50 MG TABLET 150 MG PO (09:34)
[2023-12-03] MEDS: Docusate Sodium 100 MG CAPSULE PO ×2 (09:34→21:11)
[2023-12-03] MEDS: Memantine HCl 10 MG TABLET PO ×2 (09:35→21:11)
[2023-12-03] MEDS: Magnesium Oxide 400 MG TABLET PO ×2 (09:35→17:35)
[2023-12-03] MEDS: Insulin Glargine,Hum.rec.anlog 100 UNIT/ML 10 ML VIAL 6 UNIT SUBCUT (09:35)
[2023-12-03] MEDS: HaloperidoL 1 MG TABLET PO ×3 (09:35→22:13)
--- NOTE | 2023-12-03 16:56 | HO.PSYCHPN ---
Subjective Subjective Date of Service: 12/03/23 Reason For Visit: hallucinations confusion Interim History: The nursing staff reported the patient had been pleasant on approach, confused but easily redirectable. Adherent to treatment. Good PO. On interview the patient denies new symptoms, waiting for placement. Review of Systems Review of Systems Unremarkable Yes all other systems are reviewed and are negative and Unobtainable due to mental status Constitutional: Reports as per HPI, Denies chills, Denies fatigue, Denies fever(s) and Denies headache(s) Denies headache(s) Cardiovascular: Denies chest pain and Denies dyspnea Respiratory: Denies cough and Denies dyspnea Gastrointestinal: Denies abdominal pain, Denies constipation and Denies vomiting Denies headache(s) and Denies focal weakness Psychiatric: Denies auditory hallucinations, Reports hallucinations (Per the patient's daughter. Patient denies this), Denies tactile hallucinations and Denies suicidal ideation Endocrine: Denies fatigue Mental Status Exam Mental Status Exam Narrative: In room. Hospital clothing. Self-care or poor today. Alert. Not engaging with interview. Patient Appearance: Appropriate Patient Orientation: Person Level of Consciousness: Awake and Appropriate Patient Behavior: Guarded and Passive Behavior Comments: Eyes remain closed Mood Description: Withdrawn Affect Description: Constricted Patient Cognition Impaired: Yes Ability to Follow Directions: Good Speech Pattern: Clear Memory Description: Working Impaired Diagnostics Vital Signs (24Hr): Vital Signs - 24 hr 12/02/23 19:35 12/03/23 06:00 Temperature 97.3 F 96.8 F Pulse Rate 65 58 Respiratory Rate 18 16 Blood Pressure 124/69 137/67 Pulse Oximetry 95 97 Oxygen Delivery Method Room Air Room Air BMI result Body Mass Index 26.7 Labs 11/13/23 08:28 11/13/23 08:28 Labs: Laboratory Results - last 48 hr 12/01/23 12/02/23 12/02/23 19:41 06:26 19:37 POC Glucose 201 H 119 H 205 H 12/03/23 06:17 POC Glucose 122 H Imaging Radiology Impressions: ITS Impressions Brain MRI 04/03/23 15:30 IMPRESSION: No acute infarct, mass lesion, intracranial hemorrhage, or evidence of hydrocephalus. Mild nonspecific T2/FLAIR hyperintensity in the cerebral white matter and danny presumably on the basis of chronic microangiopathy. Cervical Spine CT 07/03/23 20:12 IMPRESSION: No acute findings within the cervical spine. The cervical central canal is not well assessed on this CT due to artifact. If weakness persists, a cervical spine MRI would be more sensitive in assessment. Medications Medications Current Medications Acetaminophen (Acetaminophen 325 Mg Tablet) 650 mg PO Q6H PRN PRN Reason: Pain, Mild (Pain Scale 1-3) Last Admin: 11/27/23 22:39 Dose: 650 mg Amphetamine/Dextroamphetamine (Amphetamine Mixed Salts 10 Mg Tablet) 5 mg PO BID@0800,1500 [facility] Bisacodyl (Bisacodyl 5 Mg Tablet.Dr) 10 mg PO DAILY PRN PRN Reason: Constipation Last Admin: 10/13/23 23:19 Dose: 10 mg Docusate Sodium (Docusate Sodium 100 Mg Capsule) 100 mg PO BID [facility] Last Admin: 12/03/23 09:34 Dose: 100 mg Guaifenesin (Guaifenesin La 600 Mg Tab.Er.12h) 600 mg PO BID PRN PRN Reason: Cough Last Admin: 11/02/23 21:54 Dose: 600 mg Haloperidol (Haloperidol 1 Mg Tablet) 1 mg PO Q4H PRN PRN Reason: Hallucinations Last Admin: 12/01/23 20:55 Dose: 1 mg Haloperidol (Haloperidol 1 Mg Tablet) 1 mg PO BID@0830,1630 [facility] Last Admin: 12/03/23 09:35 Dose: 1 mg Insulin Glargine (Insulin Glargine,Hum.Rec.Anlog 100 Unit/Ml 10 Ml Vial) 6 unit SUBCUT DAILY [facility] Last Admin: 12/03/23 09:35 Dose: 6 unit Magnesium Oxide (Magnesium Oxide 400 Mg Tablet) 400 mg PO BIDPC [facility] Last Admin: 12/03/23 09:35 Dose: 400 mg Melatonin (Melatonin 3 Mg Tablet) 6 mg PO BEDTIME [facility] Last Admin: 12/02/23 19:54 Dose: 6 mg Memantine (Memantine Hcl 10 Mg Tablet) 10 mg PO BID [facility] Last Admin: 12/03/23 09:35 Dose: 10 mg Polyethylene Glycol (Polyethylene Glycol 3350 17 Gm Powd.Pack) 17 gm PO DAILY [facility] Last Admin: 12/03/23 13:41 Dose: Not Given Senna (Sennosides 8.6 Mg Tablet) 17.2 mg PO BEDTIME [facility] Last Admin: 12/02/23 19:54 Dose: 17.2 mg Sertraline HCl (Sertraline Hcl 50 Mg Tablet) 150 mg PO DAILY [facility] Last Admin: 12/03/23 09:34 Dose: 150 mg Trazodone HCl (Trazodone Hcl 50 Mg Tablet) 50 mg PO BEDTIME MRX1 PRN PRN Reason: Sleep Last Admin: 12/02/23 19:54 Dose: 50 mg Allergies Allergies Allergy/AdvReac Type Severity Reaction Status Date / Time No Known Allergies Allergy Verified 03/23/23 18:13 Assessment & Plan Assessment & Plan (1) Alzheimer's dementia: Status: Acute Code(s): G30.9 - Alzheimer's disease, unspecified; F02.80 - Dementia in other diseases classified elsewhere, unspecified severity, without behavioral disturbance, psychotic disturbance, mood disturbance, and anxiety Assessment and Plan: August 24 58 years old woman with relative young age onset at Alzheimer dementia but overall clinical picture is affected by significant depression, which continues to be the predominant feature of for clinical picture. Conventional dementia medicines such as donepezil or memantine can be tried but usually do not make significant difference. I would suggest memantine 10 mg twice a day and donepezil 10 mg daily. Recently a new dementia at drug for Alzheimer was approved but only for relatively mild dementia or mild cognitive impairment type of patients. She would not qualify for that drug. 10/18 Patient sitting in chair in the day room, head leaning over to 1 side, resting. When asked how she is doing she says that she has diabetes and that she takes meds for that. 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 Staff reports no changes in behavior but seems to have more frequent lucid moments. 10/27 continue tx. hold adderall due to increase irritability now that she is covid positive. 10/29: symptomatic of COVID - URI Sx. VSS. no change in mental health presentation. continue current mgmt. 10/30: continues laid low by COVID. psych presentation essentially unchanged. continue current mgmt, monitor VS. 10/31 continue tx. 11/05 CTP no change 11/06/23 - CTP 11/11/2023: No changes 11/12/2023: No changes to current plan Plan 1. Continue with current treatment. 2. Waiting for placement. 12/02: Continue current management and treatment plan. 12/03: Continue current management and treatment plan. Plan Plan continue with same treatment Reason for continued inpatient stay Substantial Risk for: inability to function and rapid decompensation Time Spent With Patient Time: Total time managing care of this patient today ____ minutes.
[2023-12-03 18:00] VITALS: BP 117/57; PULSE 66; RESP 18; TEMP 36.7; O2SAT 97
[2023-12-03 20:06] LABS: Glucose, Whole Blood 198 mg/dL (60-115)
[2023-12-03] MEDS: Melatonin 3 MG TABLET 6 MG PO (21:11)
[2023-12-03] MEDS: Sennosides 8.6 MG TABLET 17.2 MG PO (21:11)
[2023-12-03] MEDS: traZODone HCL 50 MG TABLET PO (21:31)
[2023-12-03] MEDS: Acetaminophen 325 MG TABLET 650 MG PO (22:12)
[2023-12-04 05:40] LABS: Glucose, Whole Blood 126 mg/dL (60-115)
[2023-12-04 06:00] VITALS: BP 120/60; PULSE 54; RESP 18; TEMP 2.6; TEMP 36.6; O2SAT 98
[2023-12-04] MEDS: Sertraline HCL 50 MG TABLET 150 MG PO (09:52)
[2023-12-04] MEDS: Docusate Sodium 100 MG CAPSULE PO ×2 (09:52→20:24)
[2023-12-04] MEDS: Magnesium Oxide 400 MG TABLET PO ×2 (09:52→17:01)
[2023-12-04] MEDS: Insulin Glargine,Hum.rec.anlog 100 UNIT/ML 10 ML VIAL 6 UNIT SUBCUT (09:53)
[2023-12-04] MEDS: Memantine HCl 10 MG TABLET PO ×2 (09:53→20:25)
[2023-12-04] MEDS: HaloperidoL 1 MG TABLET PO ×2 (09:53→17:01)
--- NOTE | 2023-12-04 14:56 | P.PNPSI_ITS ---
Subjective Subjective Date of Service: 12/04/23 Reason For Visit: hallucinations confusion Subjective Notes: Conditional Voluntary Interim History: The nursing staff reported no changes in her mental status, she was asking about her car. She slept 7 hours. On interview the patient denies new symptoms, waiting for placement. Mental Status Exam Mental Status Exam Patient Appearance: Appropriate Patient Orientation: Person Level of Consciousness: Awake Patient Behavior: Cooperative Mood Description: Calm Affect Description: Constricted Patient Cognition Impaired: Yes Ability to Follow Directions: Good Speech Pattern: Clear Hallucinations: None Delusions: Not Present Thought Process: Linear Thought Content: positive for [place] Judgement: Fair Diagnostics Vital Signs (24Hr): Vital Signs - 24 hr 12/03/23 18:00 12/04/23 06:00 Temperature 98.1 F 36.6 F L Pulse Rate 66 54 Respiratory Rate 18 18 Blood Pressure 117/57 L 120/60 Pulse Oximetry 97 98 Oxygen Delivery Method Room Air Room Air BMI result Body Mass Index 26.7 Labs 11/13/23 08:28 11/13/23 08:28 Labs: Laboratory Results - last 48 hr 12/02/23 12/03/23 12/03/23 19:37 06:17 19:57 POC Glucose 205 H 122 H 198 H 12/04/23 05:28 POC Glucose 126 H Imaging Radiology Impressions: ITS Impressions Brain MRI 04/03/23 15:30 IMPRESSION: No acute infarct, mass lesion, intracranial hemorrhage, or evidence of hydrocephalus. Mild nonspecific T2/FLAIR hyperintensity in the cerebral white matter and danny presumably on the basis of chronic microangiopathy. Cervical Spine CT 07/03/23 20:12 IMPRESSION: No acute findings within the cervical spine. The cervical central canal is not well assessed on this CT due to artifact. If weakness persists, a cervical spine MRI would be more sensitive in assessment. Medications Medications Current Medications Acetaminophen (Acetaminophen 325 Mg Tablet) 650 mg PO Q6H PRN PRN Reason: Pain, Mild (Pain Scale 1-3) Last Admin: 12/03/23 22:12 Dose: 650 mg Amphetamine/Dextroamphetamine (Amphetamine Mixed Salts 10 Mg Tablet) 5 mg PO BID@0800,1500 BEN Bisacodyl (Bisacodyl 5 Mg Tablet.Dr) 10 mg PO DAILY PRN PRN Reason: Constipation Last Admin: 10/13/23 23:19 Dose: 10 mg Docusate Sodium (Docusate Sodium 100 Mg Capsule) 100 mg PO BID [facility] Last Admin: 12/04/23 09:52 Dose: 100 mg Guaifenesin (Guaifenesin La 600 Mg Tab.Er.12h) 600 mg PO BID PRN PRN Reason: Cough Last Admin: 11/02/23 21:54 Dose: 600 mg Haloperidol (Haloperidol 1 Mg Tablet) 1 mg PO Q4H PRN PRN Reason: Hallucinations Last Admin: 12/03/23 22:13 Dose: 1 mg Haloperidol (Haloperidol 1 Mg Tablet) 1 mg PO BID@0830,1630 [facility] Last Admin: 12/04/23 09:53 Dose: 1 mg Insulin Glargine (Insulin Glargine,Hum.Rec.Anlog 100 Unit/Ml 10 Ml Vial) 6 unit SUBCUT DAILY [facility] Last Admin: 12/04/23 09:53 Dose: 6 unit Magnesium Oxide (Magnesium Oxide 400 Mg Tablet) 400 mg PO BIDPC [facility] Last Admin: 12/04/23 09:52 Dose: 400 mg Melatonin (Melatonin 3 Mg Tablet) 6 mg PO BEDTIME [facility] Last Admin: 12/03/23 21:11 Dose: 6 mg Memantine (Memantine Hcl 10 Mg Tablet) 10 mg PO BID [facility] Last Admin: 12/04/23 09:53 Dose: 10 mg Polyethylene Glycol (Polyethylene Glycol 3350 17 Gm Powd.Pack) 17 gm PO DAILY [facility] Last Admin: 12/03/23 13:41 Dose: Not Given Senna (Sennosides 8.6 Mg Tablet) 17.2 mg PO BEDTIME [facility] Last Admin: 12/03/23 21:11 Dose: 17.2 mg Sertraline HCl (Sertraline Hcl 50 Mg Tablet) 150 mg PO DAILY [facility] Last Admin: 12/04/23 09:52 Dose: 150 mg Trazodone HCl (Trazodone Hcl 50 Mg Tablet) 50 mg PO BEDTIME MRX1 PRN PRN Reason: Sleep Last Admin: 12/03/23 21:31 Dose: 50 mg Allergies Allergies Allergy/AdvReac Type Severity Reaction Status Date / Time No Known Allergies Allergy Verified 03/23/23 18:13 Assessment & Plan Assessment & Plan (1) Alzheimer's dementia: Status: Acute Code(s): G30.9 - Alzheimer's disease, unspecified; F02.80 - Dementia in other diseases classified elsewhere, unspecified severity, without behavioral disturbance, psychotic disturbance, mood disturbance, and anxiety Assessment and Plan: August [birth year] 58 years old woman with relative young age onset at Alzheimer dementia but overall clinical picture is affected by significant depression, which continues to be the predominant feature of for clinical picture. Conventional dementia medicines such as donepezil or memantine can be tried but usually do not make significant difference. I would suggest memantine 10 mg twice a day and donepezil 10 mg daily. Recently a new dementia at drug for Alzheimer was approved but only for relatively mild dementia or mild cognitive impairment type of patients. She would not qualify for that drug. 10/18 Patient sitting in chair in the day room, head leaning over to 1 side, resting. When asked how she is doing she says that she has diabetes and that she takes meds for that. She asks if check writer will be down here again. Staff reports no changes in behavior but seems to have more frequent lucid moments. 10/27 continue tx. hold adderall due to increase irritability now that she is covid positive. 10/29: symptomatic of COVID - URI Sx. VSS. no change in mental health presentation. continue current mgmt. 10/30: continues laid low by COVID. psych presentation essentially unchanged. continue current mgmt, monitor VS. 10/31 continue tx. 11/05 CTP no change 11/06/23 - CTP 11/11/2023: No changes 11/12/2023: No changes to current plan Plan 1. Continue with current treatment. 2. Waiting for placement. Plan Plan continue with same treatment Reason for continued inpatient stay Substantial Risk for: inability to function, rapid decompensation and med/psych decompensation Time Spent With Patient Time: Total time managing care of this patient today __20__ minutes.
[2023-12-04] MEDS: polyethylene glycoL 3350 17 GM POWD.PACK PO (15:08)
[2023-12-04 18:00] VITALS: BP 118/61; PULSE 65; RESP 18; TEMP 36.1; O2SAT 98
[2023-12-04 20:25] LABS: Glucose, Whole Blood 176 mg/dL (60-115)
[2023-12-04] MEDS: traZODone HCL 50 MG TABLET PO (20:25)
[2023-12-04] MEDS: Sennosides 8.6 MG TABLET 17.2 MG PO (20:25)
[2023-12-04] MEDS: Acetaminophen 325 MG TABLET 650 MG PO (20:25)
[2023-12-04] MEDS: Melatonin 3 MG TABLET 6 MG PO (20:25)
[2023-12-05 06:24] LABS: Glucose, Whole Blood 128 mg/dL (60-115)
[2023-12-05 08:35] VITALS: BP 129/68; PULSE 58; RESP 18; TEMP 36.6; O2SAT 98
[2023-12-05] MEDS: Docusate Sodium 100 MG CAPSULE PO ×2 (09:41→20:51)
[2023-12-05] MEDS: Memantine HCl 10 MG TABLET PO ×2 (09:41→20:50)
[2023-12-05] MEDS: Magnesium Oxide 400 MG TABLET PO ×2 (09:41→16:59)
[2023-12-05] MEDS: Sertraline HCL 50 MG TABLET 150 MG PO (09:41)
[2023-12-05] MEDS: Insulin Glargine,Hum.rec.anlog 100 UNIT/ML 10 ML VIAL 6 UNIT SUBCUT (09:42)
[2023-12-05] MEDS: polyethylene glycoL 3350 17 GM POWD.PACK PO (09:42)
[2023-12-05] MEDS: HaloperidoL 1 MG TABLET PO ×3 (09:42→20:50)
[2023-12-05 11:24] LABS: Glucose, Whole Blood 149 mg/dL (60-115)
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
[2023-12-05 18:00] VITALS: BP 115/73; PULSE 68; RESP 18; TEMP 36.8; O2SAT 98
[2023-12-05] MEDS: Melatonin 3 MG TABLET 6 MG PO (20:50)
[2023-12-05] MEDS: Sennosides 8.6 MG TABLET 17.2 MG PO (20:50)
[2023-12-05] MEDS: traZODone HCL 50 MG TABLET PO ×2 (20:51→22:45)
[2023-12-05 21:11] LABS: Glucose, Whole Blood 157 mg/dL (60-115)
[2023-12-06 06:51] LABS: Glucose, Whole Blood 156 mg/dL (60-115)
[2023-12-06 08:00] VITALS: BP 111/56; PULSE 63; RESP 17; TEMP 36.8; O2SAT 98
[2023-12-06] MEDS: Magnesium Oxide 400 MG TABLET PO ×2 (09:03→17:12)
[2023-12-06] MEDS: Docusate Sodium 100 MG CAPSULE PO ×2 (09:03→20:23)
[2023-12-06] MEDS: HaloperidoL 1 MG TABLET PO ×2 (09:03→17:12)
[2023-12-06] MEDS: Memantine HCl 10 MG TABLET PO ×2 (09:03→20:23)
[2023-12-06] MEDS: Sertraline HCL 50 MG TABLET 150 MG PO (09:03)
[2023-12-06] MEDS: Insulin Glargine,Hum.rec.anlog 100 UNIT/ML 10 ML VIAL 6 UNIT SUBCUT (09:06)
[2023-12-06] MEDS: polyethylene glycoL 3350 17 GM POWD.PACK PO (09:07)
--- NOTE | 2023-12-06 13:07 | HO.PSYCHPN ---
Subjective Subjective Date of Service: 12/06/23 Reason For Visit: hallucinations confusion Subjective Notes: Conditional Voluntary Interim History: The nursing staff reported the patient had been compliant with treatment, no changes in her mental status. On interview the patient denies new symptoms, waiting for placement. The social media coordinator reported the [facility] will take her as soon as they information of her for [employer] is cleared. Mental Status Exam Mental Status Exam Patient Appearance: Appropriate Patient Orientation: Person Level of Consciousness: Awake Patient Behavior: Guarded and Passive Mood Description: Withdrawn Affect Description: Blunted Patient Cognition Impaired: Yes Ability to Follow Directions: Good Speech Pattern: Clear Hallucinations: None Delusions: Not Present Thought Process: Distracted and Slowed Thinking Thought Content: positive for [place] and positive for Poverty of Content Judgement: Fair Diagnostics Vital Signs (24Hr): Vital Signs - 24 hr 12/05/23 18:00 12/06/23 08:00 Temperature 98.2 F 98.2 F Pulse Rate 68 63 Respiratory Rate 18 17 Blood Pressure 115/73 111/56 L Pulse Oximetry 98 98 Oxygen Delivery Method Room Air Room Air BMI result Body Mass Index 26.7 Labs 11/13/23 08:28 11/13/23 08:28 Labs: Laboratory Results - last 48 hr 12/04/23 12/05/23 12/05/23 20:15 06:08 11:20 POC Glucose 176 H 128 H 149 H 12/05/23 12/06/23 20:15 06:24 POC Glucose 157 H 156 H Imaging Radiology Impressions: ITS Impressions Brain MRI 04/03/23 15:30 IMPRESSION: No acute infarct, mass lesion, intracranial hemorrhage, or evidence of hydrocephalus. Mild nonspecific T2/FLAIR hyperintensity in the cerebral white matter and danny presumably on the basis of chronic microangiopathy. Cervical Spine CT 07/03/23 20:12 IMPRESSION: No acute findings within the cervical spine. The cervical central canal is not well assessed on this CT due to artifact. If weakness persists, a cervical spine MRI would be more sensitive in assessment. Medications Medications Current Medications Acetaminophen (Acetaminophen 325 Mg Tablet) 650 mg PO Q6H PRN PRN Reason: Pain, Mild (Pain Scale 1-3) Last Admin: 12/04/23 20:25 Dose: 650 mg Amphetamine/Dextroamphetamine (Amphetamine Mixed Salts 10 Mg Tablet) 5 mg PO BID@0800,1500 BEN Bisacodyl (Bisacodyl 5 Mg Tablet.Dr) 10 mg PO DAILY PRN PRN Reason: Constipation Last Admin: 10/13/23 23:19 Dose: 10 mg Docusate Sodium (Docusate Sodium 100 Mg Capsule) 100 mg PO BID [facility] Last Admin: 12/06/23 09:03 Dose: 100 mg Guaifenesin (Guaifenesin La 600 Mg Tab.Er.12h) 600 mg PO BID PRN PRN Reason: Cough Last Admin: 11/02/23 21:54 Dose: 600 mg Haloperidol (Haloperidol 1 Mg Tablet) 1 mg PO Q4H PRN PRN Reason: Hallucinations Last Admin: 12/05/23 20:50 Dose: 1 mg Haloperidol (Haloperidol 1 Mg Tablet) 1 mg PO BID@0830,1630 [facility] Last Admin: 12/06/23 09:03 Dose: 1 mg Insulin Glargine (Insulin Glargine,Hum.Rec.Anlog 100 Unit/Ml 10 Ml Vial) 6 unit SUBCUT DAILY [facility] Last Admin: 12/06/23 09:06 Dose: 6 unit Magnesium Oxide (Magnesium Oxide 400 Mg Tablet) 400 mg PO BIDPC [facility] Last Admin: 12/06/23 09:03 Dose: 400 mg Melatonin (Melatonin 3 Mg Tablet) 6 mg PO BEDTIME [facility] Last Admin: 12/05/23 20:50 Dose: 6 mg Memantine (Memantine Hcl 10 Mg Tablet) 10 mg PO BID [facility] Last Admin: 12/06/23 09:03 Dose: 10 mg Polyethylene Glycol (Polyethylene Glycol 3350 17 Gm Powd.Pack) 17 gm PO DAILY [facility] Last Admin: 12/06/23 09:07 Dose: 17 gm Senna (Sennosides 8.6 Mg Tablet) 17.2 mg PO BEDTIME [facility] Last Admin: 12/05/23 20:50 Dose: 17.2 mg Sertraline HCl (Sertraline Hcl 50 Mg Tablet) 150 mg PO DAILY [facility] Last Admin: 12/06/23 09:03 Dose: 150 mg Trazodone HCl (Trazodone Hcl 50 Mg Tablet) 50 mg PO BEDTIME MRX1 PRN PRN Reason: Sleep Last Admin: 12/05/23 22:45 Dose: 50 mg Allergies Allergies Allergy/AdvReac Type Severity Reaction Status Date / Time No Known Allergies Allergy Verified 03/23/23 18:13 Assessment & Plan Assessment & Plan (1) Alzheimer's dementia: Status: Acute Code(s): G30.9 - Alzheimer's disease, unspecified; F02.80 - Dementia in other diseases classified elsewhere, unspecified severity, without behavioral disturbance, psychotic disturbance, mood disturbance, and anxiety Assessment and Plan: August 24 58 years old woman with relative young age onset at Alzheimer dementia but overall clinical picture is affected by significant depression, which continues to be the predominant feature of for clinical picture. Conventional dementia medicines such as donepezil or memantine can be tried but usually do not make significant difference. I would suggest memantine 10 mg twice a day and donepezil 10 mg daily. Recently a new dementia at drug for Alzheimer was approved but only for relatively mild dementia or mild cognitive impairment type of patients. She would not qualify for that drug. 10/18 Patient sitting in chair in the day room, head leaning over to 1 side, resting. When asked how she is doing she says that she has diabetes and that she takes meds for that. She asks if gag writer will be down here again. Staff reports no changes in behavior but seems to have more frequent lucid moments. 10/27 continue tx. hold adderall due to increase irritability now that she is covid positive. 10/29: symptomatic of COVID - URI Sx. VSS. no change in mental health presentation. continue current mgmt. 10/30: continues laid low by COVID. psych presentation essentially unchanged. continue current mgmt, monitor VS. 10/31 continue tx. 11/05 CTP no change 11/06/23 - CTP 11/11/2023: No changes 11/12/2023: No changes to current plan Plan 1. Continue with current treatment. 2. Waiting for placement. Plan Plan continue with same treatment Reason for continued inpatient stay Substantial Risk for: inability to function, rapid decompensation and med/psych decompensation Time Spent With Patient Time: Total time managing care of this patient today __20__ minutes.
[2023-12-06 18:00] VITALS: BP 132/65; PULSE 64; RESP 16; TEMP 36.4; O2SAT 99
[2023-12-06 19:48] LABS: Glucose, Whole Blood 212 mg/dL (60-115)
[2023-12-06] MEDS: Melatonin 3 MG TABLET 6 MG PO (20:23)
[2023-12-06] MEDS: Sennosides 8.6 MG TABLET 17.2 MG PO (20:24)
[2023-12-06] MEDS: traZODone HCL 50 MG TABLET PO ×2 (20:24→21:57)
[2023-12-06] MEDS: Acetaminophen 325 MG TABLET 650 MG PO (21:57)
[2023-12-07 06:59] LABS: Glucose, Whole Blood 142 mg/dL (60-115)
[2023-12-07 07:00] VITALS: BMI 27.3
[2023-12-07 08:00] VITALS: BP 116/54; PULSE 65; RESP 16; TEMP 36.9; O2SAT 96
[2023-12-07] MEDS: polyethylene glycoL 3350 17 GM POWD.PACK PO (08:17)
[2023-12-07] MEDS: Sertraline HCL 50 MG TABLET 150 MG PO (08:18)
[2023-12-07] MEDS: Docusate Sodium 100 MG CAPSULE PO ×2 (08:18→20:37)
[2023-12-07] MEDS: Memantine HCl 10 MG TABLET PO ×2 (08:18→20:37)
[2023-12-07] MEDS: HaloperidoL 1 MG TABLET PO ×2 (08:18→16:33)
[2023-12-07] MEDS: Insulin Glargine,Hum.rec.anlog 100 UNIT/ML 10 ML VIAL 6 UNIT SUBCUT (08:18)
[2023-12-07] MEDS: Magnesium Oxide 400 MG TABLET PO ×2 (08:18→16:33)
[2023-12-07] MEDS: Acetaminophen 325 MG TABLET 650 MG PO (09:35)
--- NOTE | 2023-12-07 15:40 | HO.PSYCHPN ---
Subjective Subjective Date of Service: 12/07/23 Reason For Visit: hallucinations confusion Subjective Notes: Conditional Voluntary Interim History: The nursing staff reported no changes in her mental status confused at times but easily redirectable. Her affect has been brighter in groups according to the occupational therapist she looks more engaged. She slept 8 hours. On interview the patient denies new symptoms pleasant and cooperative. Waiting for placement. Mental Status Exam Mental Status Exam Patient Appearance: Appropriate Patient Orientation: Person and Situation Level of Consciousness: Awake and Appropriate Patient Behavior: Guarded and Passive Mood Description: Withdrawn Affect Description: Constricted Patient Cognition Impaired: Yes Ability to Follow Directions: Good Speech Pattern: Clear Hallucinations: None Delusions: Not Present Thought Process: Linear Thought Content: positive for [place] and positive for [place] of Content Judgement: Fair Diagnostics Vital Signs (24Hr): Vital Signs - 24 hr 12/06/23 18:00 12/07/23 08:00 Temperature 97.5 F 98.5 F Pulse Rate 64 65 Respiratory Rate 16 16 Blood Pressure 132/65 116/54 L Pulse Oximetry 99 96 Oxygen Delivery Method Room Air Room Air BMI result Body Mass Index 27.3 Labs 11/13/23 08:28 11/13/23 08:28 Labs: Laboratory Results - last 48 hr 12/05/23 12/06/23 12/06/23 20:15 06:24 19:43 POC Glucose 157 H 156 H 212 H 12/07/23 06:31 POC Glucose 142 H Imaging Radiology Impressions: ITS Impressions Brain MRI 04/03/23 15:30 IMPRESSION: No acute infarct, mass lesion, intracranial hemorrhage, or evidence of hydrocephalus. Mild nonspecific T2/FLAIR hyperintensity in the cerebral white matter and danny presumably on the basis of chronic microangiopathy. Cervical Spine CT 07/03/23 20:12 IMPRESSION: No acute findings within the cervical spine. The cervical central canal is not well assessed on this CT due to artifact. If weakness persists, a cervical spine MRI would be more sensitive in assessment. Medications Medications Current Medications Acetaminophen (Acetaminophen 325 Mg Tablet) 650 mg PO Q6H PRN PRN Reason: Pain, Mild (Pain Scale 1-3) Last Admin: 12/07/23 09:35 Dose: 650 mg Amphetamine/Dextroamphetamine (Amphetamine Mixed Salts 10 Mg Tablet) 5 mg PO BID@0800,1500 [facility] Bisacodyl (Bisacodyl 5 Mg Tablet.Dr) 10 mg PO DAILY PRN PRN Reason: Constipation Last Admin: 10/13/23 23:19 Dose: 10 mg Docusate Sodium (Docusate Sodium 100 Mg Capsule) 100 mg PO BID [facility] Last Admin: 12/07/23 08:18 Dose: 100 mg Guaifenesin (Guaifenesin La 600 Mg Tab.Er.12h) 600 mg PO BID PRN PRN Reason: Cough Last Admin: 11/02/23 21:54 Dose: 600 mg Haloperidol (Haloperidol 1 Mg Tablet) 1 mg PO Q4H PRN PRN Reason: Hallucinations Last Admin: 12/05/23 20:50 Dose: 1 mg Haloperidol (Haloperidol 1 Mg Tablet) 1 mg PO BID@0830,1630 [facility] Last Admin: 12/07/23 08:18 Dose: 1 mg Insulin Glargine (Insulin Glargine,Hum.Rec.Anlog 100 Unit/Ml 10 Ml Vial) 6 unit SUBCUT DAILY [facility] Last Admin: 12/07/23 08:18 Dose: 6 unit Magnesium Oxide (Magnesium Oxide 400 Mg Tablet) 400 mg PO BIDPC [facility] Last Admin: 12/07/23 08:18 Dose: 400 mg Melatonin (Melatonin 3 Mg Tablet) 6 mg PO BEDTIME [facility] Last Admin: 12/06/23 20:23 Dose: 6 mg Memantine (Memantine Hcl 10 Mg Tablet) 10 mg PO BID [facility] Last Admin: 12/07/23 08:18 Dose: 10 mg Polyethylene Glycol (Polyethylene Glycol 3350 17 Gm Powd.Pack) 17 gm PO DAILY [facility] Last Admin: 12/07/23 08:17 Dose: 17 gm Senna (Sennosides 8.6 Mg Tablet) 17.2 mg PO BEDTIME [facility] Last Admin: 12/06/23 20:24 Dose: 17.2 mg Sertraline HCl (Sertraline Hcl 50 Mg Tablet) 150 mg PO DAILY [facility] Last Admin: 12/07/23 08:18 Dose: 150 mg Trazodone HCl (Trazodone Hcl 50 Mg Tablet) 50 mg PO BEDTIME MRX1 PRN PRN Reason: Sleep Last Admin: 12/06/23 21:57 Dose: 50 mg Allergies Allergies Allergy/AdvReac Type Severity Reaction Status Date / Time No Known Allergies Allergy Verified 03/23/23 18:13 Assessment & Plan Assessment & Plan (1) Alzheimer's dementia: Status: Acute Code(s): G30.9 - Alzheimer's disease, unspecified; F02.80 - Dementia in other diseases classified elsewhere, unspecified severity, without behavioral disturbance, psychotic disturbance, mood disturbance, and anxiety Assessment and Plan: August [birth year] 58 years old woman with relative young age onset at Alzheimer dementia but overall clinical picture is affected by significant depression, which continues to be the predominant feature of for clinical picture. Conventional dementia medicines such as donepezil or memantine can be tried but usually do not make significant difference. I would suggest memantine 10 mg twice a day and donepezil 10 mg daily. Recently a new dementia at drug for Alzheimer was approved but only for relatively mild dementia or mild cognitive impairment type of patients. She would not qualify for that drug. 10/18 Patient sitting in chair in the day room, head leaning over to 1 side, resting. When asked how she is doing she says that she has diabetes and that she takes meds for that. 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 Staff reports no changes in behavior but seems to have more frequent lucid moments. 10/27 continue tx. hold adderall due to increase irritability now that she is covid positive. 10/29: symptomatic of COVID - URI Sx. VSS. no change in mental health presentation. continue current mgmt. 10/30: continues laid low by COVID. psych presentation essentially unchanged. continue current mgmt, monitor VS. 10/31 continue tx. 11/05 CTP no change 11/06/23 - CTP 11/11/2023: No changes 11/12/2023: No changes to current plan Plan 1. Continue with current treatment. 2. Waiting for placement. Plan Plan continue with same treatment Reason for continued inpatient stay Substantial Risk for: inability to function, rapid decompensation and med/psych decompensation Time Spent With Patient Time: Total time managing care of this patient today __20__ minutes.
[2023-12-07 19:40] VITALS: BP 144/81; PULSE 68; RESP 16; TEMP 36.2; O2SAT 99
[2023-12-07 20:15] LABS: Glucose, Whole Blood 187 mg/dL (60-115)
[2023-12-07] MEDS: traZODone HCL 50 MG TABLET PO (20:34)
[2023-12-07] MEDS: Melatonin 3 MG TABLET 6 MG PO (20:34)
[2023-12-07] MEDS: Sennosides 8.6 MG TABLET 17.2 MG PO (20:34)
[2023-12-08 06:00] VITALS: BP 142/64; PULSE 71; RESP 16; TEMP 36.6; O2SAT 97
[2023-12-08 06:33] LABS: Glucose, Whole Blood 132 mg/dL (60-115)
[2023-12-08] MEDS: polyethylene glycoL 3350 17 GM POWD.PACK PO (08:17)
[2023-12-08] MEDS: Docusate Sodium 100 MG CAPSULE PO ×2 (08:17→20:06)
[2023-12-08] MEDS: HaloperidoL 1 MG TABLET PO ×2 (08:18→16:43)
[2023-12-08] MEDS: Magnesium Oxide 400 MG TABLET PO ×2 (08:18→16:42)
[2023-12-08] MEDS: Insulin Glargine,Hum.rec.anlog 100 UNIT/ML 10 ML VIAL 6 UNIT SUBCUT (08:18)
[2023-12-08] MEDS: Sertraline HCL 50 MG TABLET 150 MG PO (08:18)
--- NOTE | 2023-12-08 11:16 | P.PNPSI_ITS ---
Subjective Subjective Date of Service: 12/08/23 Reason For Visit: hallucinations confusion Subjective Notes: Conditional Voluntary Healthcare Proxy: Yes Guardianship: Yes Interim History: Pt slept through the night. She is visible on the unit. no behavioral concerns. No VH/AH. No over agitation, taking medications. Review of Systems Review of Systems Unremarkable Yes all other systems are reviewed and are negative and Unobtainable due to mental status Constitutional: Reports as per HPI, Denies chills, Denies fatigue, Denies fever(s) and Denies headache(s) Denies headache(s) Cardiovascular: Denies chest pain and Denies dyspnea Respiratory: Denies cough and Denies dyspnea Gastrointestinal: Denies abdominal pain, Denies constipation and Denies vomiting Denies headache(s) and Denies focal weakness Psychiatric: Denies auditory hallucinations, Reports hallucinations (Per the patient's daughter. Patient denies this), Denies tactile hallucinations and Denies suicidal ideation Endocrine: Denies fatigue Mental Status Exam Mental Status Exam Patient Appearance: Appropriate Patient Orientation: Person and Situation Level of Consciousness: Awake and Appropriate Patient Behavior: Guarded and Passive Behavior Comments: Eyes remain closed Mood Description: Withdrawn Affect Description: Constricted Patient Cognition Impaired: Yes Ability to Follow Directions: Good Speech Pattern: Clear Memory Description: Working Impaired Diagnostics Vital Signs (24Hr): Vital Signs - 24 hr 12/07/23 19:40 12/08/23 06:00 Temperature 97.2 F 97.8 F Pulse Rate 68 71 Respiratory Rate 16 16 Blood Pressure 144/81 H 142/64 H Pulse Oximetry 99 97 Oxygen Delivery Method Room Air Room Air BMI result Body Mass Index 27.3 Labs 11/13/23 08:28 11/13/23 08:28 Labs: Laboratory Results - last 48 hr 12/06/23 12/07/23 12/07/23 19:43 06:31 20:12 POC Glucose 212 H 142 H 187 H 12/08/23 06:05 POC Glucose 132 H Imaging Radiology Impressions: ITS Impressions Brain MRI 04/03/23 15:30 IMPRESSION: No acute infarct, mass lesion, intracranial hemorrhage, or evidence of hydrocephalus. Mild nonspecific T2/FLAIR hyperintensity in the cerebral white matter and danny presumably on the basis of chronic microangiopathy. Cervical Spine CT 07/03/23 20:12 IMPRESSION: No acute findings within the cervical spine. The cervical central canal is not well assessed on this CT due to artifact. If weakness persists, a cervical spine MRI would be more sensitive in assessment. Medications Medications Current Medications Acetaminophen (Acetaminophen 325 Mg Tablet) 650 mg PO Q6H PRN PRN Reason: Pain, Mild (Pain Scale 1-3) Last Admin: 12/07/23 09:35 Dose: 650 mg Amphetamine/Dextroamphetamine (Amphetamine Mixed Salts 10 Mg Tablet) 5 mg PO BID@0800,1500 [facility] Bisacodyl (Bisacodyl 5 Mg Tablet.Dr) 10 mg PO DAILY PRN PRN Reason: Constipation Last Admin: 10/13/23 23:19 Dose: 10 mg Docusate Sodium (Docusate Sodium 100 Mg Capsule) 100 mg PO BID [facility] Last Admin: 12/08/23 08:17 Dose: 100 mg Guaifenesin (Guaifenesin La 600 Mg Tab.Er.12h) 600 mg PO BID PRN PRN Reason: Cough Last Admin: 11/02/23 21:54 Dose: 600 mg Haloperidol (Haloperidol 1 Mg Tablet) 1 mg PO Q4H PRN PRN Reason: Hallucinations Last Admin: 12/05/23 20:50 Dose: 1 mg Haloperidol (Haloperidol 1 Mg Tablet) 1 mg PO BID@0830,1630 [facility] Last Admin: 12/08/23 08:18 Dose: 1 mg Insulin Glargine (Insulin Glargine,Hum.Rec.Anlog 100 Unit/Ml 10 Ml Vial) 6 unit SUBCUT DAILY [facility] Last Admin: 12/08/23 08:18 Dose: 6 unit Magnesium Oxide (Magnesium Oxide 400 Mg Tablet) 400 mg PO BIDPC [facility] Last Admin: 12/08/23 08:18 Dose: 400 mg Melatonin (Melatonin 3 Mg Tablet) 6 mg PO BEDTIME [facility] Last Admin: 12/07/23 20:34 Dose: 6 mg Memantine (Memantine Hcl 10 Mg Tablet) 10 mg PO BID [facility] Last Admin: 12/07/23 20:37 Dose: 10 mg Polyethylene Glycol (Polyethylene Glycol 3350 17 Gm Powd.Pack) 17 gm PO DAILY [facility] Last Admin: 12/08/23 08:17 Dose: 17 gm Senna (Sennosides 8.6 Mg Tablet) 17.2 mg PO BEDTIME [facility] Last Admin: 12/07/23 20:34 Dose: 17.2 mg Sertraline HCl (Sertraline Hcl 50 Mg Tablet) 150 mg PO DAILY [facility] Last Admin: 12/08/23 08:18 Dose: 150 mg Trazodone HCl (Trazodone Hcl 50 Mg Tablet) 50 mg PO BEDTIME MRX1 PRN PRN Reason: Sleep Last Admin: 12/07/23 20:34 Dose: 50 mg Allergies Allergies Allergy/AdvReac Type Severity Reaction Status Date / Time No Known Allergies Allergy Verified 03/23/23 18:13 Assessment & Plan Assessment & Plan (1) Alzheimer's dementia: Status: Acute Code(s): G30.9 - Alzheimer's disease, unspecified; F02.80 - Dementia in other diseases classified elsewhere, unspecified severity, without behavioral disturbance, psychotic disturbance, mood disturbance, and anxiety Assessment and Plan: August 24 58 years old woman with relative young age onset at Alzheimer dementia but overall clinical picture is affected by significant depression, which continues to be the predominant feature of for clinical picture. Conventional dementia medicines such as donepezil or memantine can be tried but usually do not make significant difference. I would suggest memantine 10 mg twice a day and donepezil 10 mg daily. Recently a new dementia at drug for Alzheimer was approved but only for relatively mild dementia or mild cognitive impairment type of patients. She would not qualify for that drug. 10/18 Patient sitting in chair in the day room, head leaning over to 1 side, resting. When asked how she is doing she says that she has diabetes and that she takes meds for that. She asks if mortgage underwriter will be down here again. Staff reports no changes in behavior but seems to have more frequent lucid moments. 10/27 continue tx. hold adderall due to increase irritability now that she is covid positive. 10/29: symptomatic of COVID - URI Sx. VSS. no change in mental health presentation. continue current mgmt. 10/30: continues laid low by COVID. psych presentation essentially unchanged. continue current mgmt, monitor VS. 10/31 continue tx. 11/05 CTP no change 11/06/23 - CTP 11/11/2023: No changes 11/12/2023: No changes to current plan 2/2 continue tx. Plan 1. Continue with current treatment. 2. Waiting for placement. Plan Plan continue with same treatment Reason for continued inpatient stay Substantial Risk for: inability to function Time Spent With Patient Time: Total time managing care of this patient today ____ minutes.
[2023-12-08] MEDS: Memantine HCl 10 MG TABLET PO ×2 (14:39→20:06)
[2023-12-08 19:50] VITALS: BP 139/69; PULSE 63; RESP 16; TEMP 36.4; O2SAT 100
[2023-12-08] MEDS: Sennosides 8.6 MG TABLET 17.2 MG PO (20:06)
[2023-12-08] MEDS: Melatonin 3 MG TABLET 6 MG PO (20:06)
[2023-12-08 21:13] LABS: Glucose, Whole Blood 175 mg/dL (60-115)
[2023-12-09] MEDS: Acetaminophen 325 MG TABLET 650 MG PO (04:05)
[2023-12-09 06:12] LABS: Glucose, Whole Blood 299 mg/dL (60-115)
[2023-12-09 08:05] VITALS: BP 137/62; PULSE 52; RESP 18; TEMP 36.2; O2SAT 100
[2023-12-09] MEDS: Memantine HCl 10 MG TABLET PO ×2 (08:51→20:04)
[2023-12-09] MEDS: HaloperidoL 1 MG TABLET PO ×2 (08:51→16:34)
[2023-12-09] MEDS: Sertraline HCL 50 MG TABLET 150 MG PO (08:52)
[2023-12-09] MEDS: Magnesium Oxide 400 MG TABLET PO ×2 (08:52→16:33)
[2023-12-09] MEDS: Insulin Glargine,Hum.rec.anlog 100 UNIT/ML 10 ML VIAL 6 UNIT SUBCUT (08:56)
[2023-12-09] MEDS: polyethylene glycoL 3350 17 GM POWD.PACK PO (08:57)
[2023-12-09] MEDS: Docusate Sodium 100 MG CAPSULE PO ×2 (09:01→20:04)
--- NOTE | 2023-12-09 10:53 | HO.PSYCHPN ---
Subjective Subjective Date of Service: 12/09/23 Reason For Visit: hallucinations confusion Subjective Notes: Conditional Voluntary Healthcare Proxy: Yes Interim History: Met with patient. Discussed with Nursing. Chart reviewed. No management issues. Accepting medications. Today very minimal engagement with machine sign writer, stating she felt okay Medication Compliance: Yes Side effects from medications: No Attending Groups: No Review of Systems Acute medical concerns: No Review of Systems Review of Systems unremarkable Mental Status Exam Mental Status Exam Patient Appearance: Appropriate Patient Orientation: Person and Situation Level of Consciousness: Awake and Appropriate Patient Behavior: Guarded and Passive Mood Description: Calm Affect Description: Constricted Patient Cognition Impaired: Yes Ability to Follow Directions: Good Speech Pattern: Clear Hallucinations: None Delusions: Not Present Thought Process: Distracted and Evasive Thought Content: positive for [place] Judgement: Fair Diagnostics Vital Signs (24Hr): Vital Signs - 24 hr 12/08/23 19:50 12/09/23 08:05 Temperature 97.6 F 97.1 F Pulse Rate 63 52 Respiratory Rate 16 18 Blood Pressure 139/69 137/62 Pulse Oximetry 100 100 Oxygen Delivery Method Room Air BMI result Body Mass Index 27.3 Labs 11/13/23 08:28 11/13/23 08:28 Labs: Laboratory Results - last 48 hr 12/07/23 12/08/23 12/08/23 20:12 06:05 21:09 POC Glucose 187 H 132 H 175 H 12/09/23 05:54 POC Glucose 299 H Imaging Radiology Impressions: ITS Impressions Brain MRI 04/03/23 15:30 IMPRESSION: No acute infarct, mass lesion, intracranial hemorrhage, or evidence of hydrocephalus. Mild nonspecific T2/FLAIR hyperintensity in the cerebral white matter and danny presumably on the basis of chronic microangiopathy. Cervical Spine CT 07/03/23 20:12 IMPRESSION: No acute findings within the cervical spine. The cervical central canal is not well assessed on this CT due to artifact. If weakness persists, a cervical spine MRI would be more sensitive in assessment. Medications Medications Current Medications Acetaminophen (Acetaminophen 325 Mg Tablet) 650 mg PO Q6H PRN PRN Reason: Pain, Mild (Pain Scale 1-3) Last Admin: 12/09/23 04:05 Dose: 650 mg Amphetamine/Dextroamphetamine (Amphetamine Mixed Salts 10 Mg Tablet) 5 mg PO BID@0800,1500 [facility] Bisacodyl (Bisacodyl 5 Mg Tablet.Dr) 10 mg PO DAILY PRN PRN Reason: Constipation Last Admin: 10/13/23 23:19 Dose: 10 mg Docusate Sodium (Docusate Sodium 100 Mg Capsule) 100 mg PO BID [facility] Last Admin: 12/09/23 09:01 Dose: 100 mg Guaifenesin (Guaifenesin La 600 Mg Tab.Er.12h) 600 mg PO BID PRN PRN Reason: Cough Last Admin: 11/02/23 21:54 Dose: 600 mg Haloperidol (Haloperidol 1 Mg Tablet) 1 mg PO Q4H PRN PRN Reason: Hallucinations Last Admin: 12/05/23 20:50 Dose: 1 mg Haloperidol (Haloperidol 1 Mg Tablet) 1 mg PO BID@0830,1630 [facility] Last Admin: 12/09/23 08:51 Dose: 1 mg Insulin Glargine (Insulin Glargine,Hum.Rec.Anlog 100 Unit/Ml 10 Ml Vial) 6 unit SUBCUT DAILY [facility] Last Admin: 12/09/23 08:56 Dose: 6 unit Magnesium Oxide (Magnesium Oxide 400 Mg Tablet) 400 mg PO BIDPC [facility] Last Admin: 12/09/23 08:52 Dose: 400 mg Melatonin (Melatonin 3 Mg Tablet) 6 mg PO BEDTIME [facility] Last Admin: 12/08/23 20:06 Dose: 6 mg Memantine (Memantine Hcl 10 Mg Tablet) 10 mg PO BID [facility] Last Admin: 12/09/23 08:51 Dose: 10 mg Polyethylene Glycol (Polyethylene Glycol 3350 17 Gm Powd.Pack) 17 gm PO DAILY [facility] Last Admin: 12/09/23 08:57 Dose: 17 gm Senna (Sennosides 8.6 Mg Tablet) 17.2 mg PO BEDTIME [facility] Last Admin: 12/08/23 20:06 Dose: 17.2 mg Sertraline HCl (Sertraline Hcl 50 Mg Tablet) 150 mg PO DAILY [facility] Last Admin: 12/09/23 08:52 Dose: 150 mg Trazodone HCl (Trazodone Hcl 50 Mg Tablet) 50 mg PO BEDTIME MRX1 PRN PRN Reason: Sleep Last Admin: 12/07/23 20:34 Dose: 50 mg Allergies Allergies Allergy/AdvReac Type Severity Reaction Status Date / Time No Known Allergies Allergy Verified 03/23/23 18:13 Assessment & Plan Assessment & Plan (1) Alzheimer's dementia: Status: Acute Code(s): G30.9 - Alzheimer's disease, unspecified; F02.80 - Dementia in other diseases classified elsewhere, unspecified severity, without behavioral disturbance, psychotic disturbance, mood disturbance, and anxiety Assessment and Plan: August 24 58 years old woman with relative young age onset at Alzheimer dementia but overall clinical picture is affected by significant depression, which continues to be the predominant feature of for clinical picture. Conventional dementia medicines such as donepezil or memantine can be tried but usually do not make significant difference. I would suggest memantine 10 mg twice a day and donepezil 10 mg daily. Recently a new dementia at drug for Alzheimer was approved but only for relatively mild dementia or mild cognitive impairment type of patients. She would not qualify for that drug. 10/18 Patient sitting in chair in the day room, head leaning over to 1 side, resting. When asked how she is doing she says that she has diabetes and that she takes meds for that. She asks if machine sign writer will be down here again. Staff reports no changes in behavior but seems to have more frequent lucid moments. 10/27 continue tx. hold adderall due to increase irritability now that she is covid positive. 10/29: symptomatic of COVID - URI Sx. VSS. no change in mental health presentation. continue current mgmt. 10/30: continues laid low by COVID. psych presentation essentially unchanged. continue current mgmt, monitor VS. 10/31 continue tx. 11/05 CTP no change 11/06/23 - CTP 11/11/2023: No changes 11/12/2023: No changes to current plan 2/2 continue tx. 12/08: no changes Plan 1. Continue with current treatment. 2. Waiting for placement. Plan Plan continue with same treatment Reason for continued inpatient stay Substantial Risk for: rapid decompensation Time Spent With Patient Time: Total time managing care of this patient today ____ minutes.
[2023-12-09 20:01] VITALS: BP 138/67; PULSE 72; RESP 16; TEMP 36.3; O2SAT 98
[2023-12-09] MEDS: Melatonin 3 MG TABLET 6 MG PO (20:04)
[2023-12-09] MEDS: Sennosides 8.6 MG TABLET 17.2 MG PO (20:04)
[2023-12-09 20:14] LABS: Glucose, Whole Blood 233 mg/dL (60-115)
[2023-12-10] MEDS: Acetaminophen 325 MG TABLET 650 MG PO (00:52)
[2023-12-10] MEDS: traZODone HCL 50 MG TABLET PO ×2 (00:52→20:03)
[2023-12-10 01:52] VITALS: RESP 16
[2023-12-10 06:00] VITALS: BP 138/65; PULSE 53; RESP 17; TEMP 35.7; O2SAT 99
[2023-12-10 06:36] LABS: Glucose, Whole Blood 140 mg/dL (60-115)
[2023-12-10] MEDS: Docusate Sodium 100 MG CAPSULE PO ×2 (08:41→20:02)
[2023-12-10] MEDS: HaloperidoL 1 MG TABLET PO ×3 (08:41→20:03)
[2023-12-10] MEDS: Memantine HCl 10 MG TABLET PO ×2 (08:42→20:04)
[2023-12-10] MEDS: Sertraline HCL 50 MG TABLET 150 MG PO (08:42)
[2023-12-10] MEDS: Magnesium Oxide 400 MG TABLET PO ×2 (08:42→16:34)
[2023-12-10] MEDS: Insulin Glargine,Hum.rec.anlog 100 UNIT/ML 10 ML VIAL 6 UNIT SUBCUT (08:44)
[2023-12-10] MEDS: polyethylene glycoL 3350 17 GM POWD.PACK PO (08:45)
--- NOTE | 2023-12-10 10:03 | HO.PSYCHPN ---
Subjective Subjective Date of Service: 12/10/23 Reason For Visit: hallucinations confusion Subjective Notes: Conditional Voluntary Healthcare Proxy: Yes Interim History: Met with patient. Discussed with Nursing. Chart reviewed. No management issues. Accepting medications. Again very minimal engagement with engineering technical writer, stating she had nothing to talk about and felt tired Review of Systems Review of Systems unremarkable Mental Status Exam Mental Status Exam Patient Appearance: Appropriate Patient Orientation: Person and Situation Level of Consciousness: Appropriate Patient Behavior: Guarded and Passive Behavior Comments: Eyes remain closed Mood Description: Calm Affect Description: Constricted Patient Cognition Impaired: Yes Ability to Follow Directions: Good Speech Pattern: Clear Diagnostics Vital Signs (24Hr): Vital Signs - 24 hr 12/09/23 20:01 12/10/23 01:52 12/10/23 01:52 Temperature 97.3 F Pulse Rate 72 Respiratory Rate 16 16 16 Blood Pressure 138/67 Pulse Oximetry 98 Oxygen Delivery Method Room Air 12/10/23 06:00 Temperature 96.2 F L Pulse Rate 53 Respiratory Rate 17 Blood Pressure 138/65 Pulse Oximetry 99 Oxygen Delivery Method Room Air BMI result Body Mass Index 27.3 Labs 11/13/23 08:28 11/13/23 08:28 Labs: Laboratory Results - last 48 hr 12/08/23 12/09/23 12/09/23 21:09 05:54 20:03 POC Glucose 175 H 299 H 233 H 12/10/23 06:14 POC Glucose 140 H Imaging Radiology Impressions: ITS Impressions Brain MRI 04/03/23 15:30 IMPRESSION: No acute infarct, mass lesion, intracranial hemorrhage, or evidence of hydrocephalus. Mild nonspecific T2/FLAIR hyperintensity in the cerebral white matter and danny presumably on the basis of chronic microangiopathy. Cervical Spine CT 07/03/23 20:12 IMPRESSION: No acute findings within the cervical spine. The cervical central canal is not well assessed on this CT due to artifact. If weakness persists, a cervical spine MRI would be more sensitive in assessment. Medications Medications Current Medications Acetaminophen (Acetaminophen 325 Mg Tablet) 650 mg PO Q6H PRN PRN Reason: Pain, Mild (Pain Scale 1-3) Last Admin: 12/10/23 00:52 Dose: 650 mg Amphetamine/Dextroamphetamine (Amphetamine Mixed Salts 10 Mg Tablet) 5 mg PO BID@0800,1500 [facility] Bisacodyl (Bisacodyl 5 Mg Tablet.Dr) 10 mg PO DAILY PRN PRN Reason: Constipation Last Admin: 10/13/23 23:19 Dose: 10 mg Docusate Sodium (Docusate Sodium 100 Mg Capsule) 100 mg PO BID [facility] Last Admin: 12/10/23 08:41 Dose: 100 mg Guaifenesin (Guaifenesin La 600 Mg Tab.Er.12h) 600 mg PO BID PRN PRN Reason: Cough Last Admin: 11/02/23 21:54 Dose: 600 mg Haloperidol (Haloperidol 1 Mg Tablet) 1 mg PO Q4H PRN PRN Reason: Hallucinations Last Admin: 12/05/23 20:50 Dose: 1 mg Haloperidol (Haloperidol 1 Mg Tablet) 1 mg PO BID@0830,1630 [facility] Last Admin: 12/10/23 08:41 Dose: 1 mg Insulin Glargine (Insulin Glargine,Hum.Rec.Anlog 100 Unit/Ml 10 Ml Vial) 6 unit SUBCUT DAILY [facility] Last Admin: 12/10/23 08:44 Dose: 6 unit Magnesium Oxide (Magnesium Oxide 400 Mg Tablet) 400 mg PO BIDPC [facility] Last Admin: 12/10/23 08:42 Dose: 400 mg Melatonin (Melatonin 3 Mg Tablet) 6 mg PO BEDTIME [facility] Last Admin: 12/09/23 20:04 Dose: 6 mg Memantine (Memantine Hcl 10 Mg Tablet) 10 mg PO BID [facility] Last Admin: 12/10/23 08:42 Dose: 10 mg Polyethylene Glycol (Polyethylene Glycol 3350 17 Gm Powd.Pack) 17 gm PO DAILY [facility] Last Admin: 12/10/23 08:45 Dose: 17 gm Senna (Sennosides 8.6 Mg Tablet) 17.2 mg PO BEDTIME [facility] Last Admin: 12/09/23 20:04 Dose: 17.2 mg Sertraline HCl (Sertraline Hcl 50 Mg Tablet) 150 mg PO DAILY [facility] Last Admin: 12/10/23 08:42 Dose: 150 mg Trazodone HCl (Trazodone Hcl 50 Mg Tablet) 50 mg PO BEDTIME MRX1 PRN PRN Reason: Sleep Last Admin: 12/10/23 00:52 Dose: 50 mg Allergies Allergies Allergy/AdvReac Type Severity Reaction Status Date / Time No Known Allergies Allergy Verified 03/23/23 18:13 Assessment & Plan Assessment & Plan (1) Alzheimer's dementia: Status: Acute Code(s): G30.9 - Alzheimer's disease, unspecified; F02.80 - Dementia in other diseases classified elsewhere, unspecified severity, without behavioral disturbance, psychotic disturbance, mood disturbance, and anxiety Assessment and Plan: August [birth year] 58 years old woman with relative young age onset at Alzheimer dementia but overall clinical picture is affected by significant depression, which continues to be the predominant feature of for clinical picture. Conventional dementia medicines such as donepezil or memantine can be tried but usually do not make significant difference. I would suggest memantine 10 mg twice a day and donepezil 10 mg daily. Recently a new dementia at drug for Alzheimer was approved but only for relatively mild dementia or mild cognitive impairment type of patients. She would not qualify for that drug. 10/18 Patient sitting in chair in the day room, head leaning over to 1 side, resting. When asked how she is doing she says that she has diabetes and that she takes meds for that. She asks if engineering technical writer will be down here again. Staff reports no changes in behavior but seems to have more frequent lucid moments. 10/27 continue tx. hold adderall due to increase irritability now that she is covid positive. 10/29: symptomatic of COVID - URI Sx. VSS. no change in mental health presentation. continue current mgmt. 10/30: continues laid low by COVID. psych presentation essentially unchanged. continue current mgmt, monitor VS. 10/31 continue tx. 11/05 CTP no change 11/06/23 - CTP 11/11/2023: No changes 11/12/2023: No changes to current plan 2/2 continue tx. 12/08: no changes 12/09: no changes Plan 1. Continue with current treatment. 2. Waiting for placement. Plan Plan continue with same treatment Reason for continued inpatient stay Substantial Risk for: inability to function and rapid decompensation Time Spent With Patient Time: Total time managing care of this patient today ____ minutes.
[2023-12-10 18:00] VITALS: BP 105/58; PULSE 68; RESP 16; TEMP 35.7; O2SAT 96
[2023-12-10] MEDS: Sennosides 8.6 MG TABLET 17.2 MG PO (20:02)
[2023-12-10] MEDS: Melatonin 3 MG TABLET 6 MG PO (20:03)
[2023-12-10 20:17] LABS: Glucose, Whole Blood 189 mg/dL (60-115)
[2023-12-11 06:00] VITALS: BP 133/65; PULSE 61; RESP 16; TEMP 37.2; O2SAT 97
[2023-12-11 06:31] LABS: Glucose, Whole Blood 138 mg/dL (60-115)
[2023-12-11] MEDS: Memantine HCl 10 MG TABLET PO ×2 (08:24→20:07)
[2023-12-11] MEDS: Sertraline HCL 50 MG TABLET 150 MG PO (08:24)
[2023-12-11] MEDS: Insulin Glargine,Hum.rec.anlog 100 UNIT/ML 10 ML VIAL 6 UNIT SUBCUT (08:24)
[2023-12-11] MEDS: Docusate Sodium 100 MG CAPSULE PO ×2 (08:25→20:08)
[2023-12-11] MEDS: polyethylene glycoL 3350 17 GM POWD.PACK PO (08:25)
[2023-12-11] MEDS: Magnesium Oxide 400 MG TABLET PO ×2 (08:25→17:13)
[2023-12-11] MEDS: HaloperidoL 1 MG TABLET PO ×3 (08:28→20:07)
--- NOTE | 2023-12-11 08:29 | P.PNPSI_ITS ---
Subjective Subjective Date of Service: 12/11/23 Reason For Visit: hallucinations confusion Subjective Notes: Conditional Voluntary Guardianship: Yes Interim History: Pt slept through the night. She reports doing well. not much expressed. She has been visible on the unit, has attended groups. She is eating well. She has also been taking medications as prescribed. Review of Systems Review of Systems unremarkable Yes all other systems are reviewed and are negative and Unobtainable due to mental status Constitutional: Reports as per HPI, Denies chills, Denies fatigue, Denies fever(s) and Denies headache(s) Denies headache(s) Cardiovascular: Denies chest pain and Denies dyspnea Respiratory: Denies cough and Denies dyspnea Gastrointestinal: Denies abdominal pain, Denies constipation and Denies vomiting Denies headache(s) and Denies focal weakness Psychiatric: Denies auditory hallucinations, Reports hallucinations (Per the patient's daughter. Patient denies this), Denies tactile hallucinations and Denies suicidal ideation Endocrine: Denies fatigue Mental Status Exam Mental Status Exam Patient Appearance: Appropriate Patient Orientation: Person and Situation Level of Consciousness: Appropriate Patient Behavior: Guarded and Passive Behavior Comments: Eyes remain closed Mood Description: Calm Affect Description: Constricted Patient Cognition Impaired: Yes Ability to Follow Directions: Good Speech Pattern: Clear Memory Description: Working Impaired Diagnostics Vital Signs (24Hr): Vital Signs - 24 hr 12/10/23 18:00 Temperature 96.2 F L Pulse Rate 68 Respiratory Rate 16 Blood Pressure 105/58 L Pulse Oximetry 96 Oxygen Delivery Method Room Air BMI result Body Mass Index 27.3 Labs 11/13/23 08:28 11/13/23 08:28 Labs: Laboratory Results - last 48 hr 12/09/23 12/10/23 12/10/23 20:03 06:14 20:00 POC Glucose 233 H 140 H 189 H 12/11/23 06:25 POC Glucose 138 H Imaging Radiology Impressions: ITS Impressions Brain MRI 04/03/23 15:30 IMPRESSION: No acute infarct, mass lesion, intracranial hemorrhage, or evidence of hydrocephalus. Mild nonspecific T2/FLAIR hyperintensity in the cerebral white matter and danny presumably on the basis of chronic microangiopathy. Cervical Spine CT 07/03/23 20:12 IMPRESSION: No acute findings within the cervical spine. The cervical central canal is not well assessed on this CT due to artifact. If weakness persists, a cervical spine MRI would be more sensitive in assessment. Medications Medications Current Medications Acetaminophen (Acetaminophen 325 Mg Tablet) 650 mg PO Q6H PRN PRN Reason: Pain, Mild (Pain Scale 1-3) Last Admin: 12/10/23 00:52 Dose: 650 mg Amphetamine/Dextroamphetamine (Amphetamine Mixed Salts 10 Mg Tablet) 5 mg PO BID@0800,1500 [facility] Bisacodyl (Bisacodyl 5 Mg Tablet.Dr) 10 mg PO DAILY PRN PRN Reason: Constipation Last Admin: 10/13/23 23:19 Dose: 10 mg Docusate Sodium (Docusate Sodium 100 Mg Capsule) 100 mg PO BID [facility] Last Admin: 12/11/23 08:25 Dose: 100 mg Guaifenesin (Guaifenesin La 600 Mg Tab.Er.12h) 600 mg PO BID PRN PRN Reason: Cough Last Admin: 11/02/23 21:54 Dose: 600 mg Haloperidol (Haloperidol 1 Mg Tablet) 1 mg PO Q4H PRN PRN Reason: Hallucinations Last Admin: 12/10/23 20:03 Dose: 1 mg Haloperidol (Haloperidol 1 Mg Tablet) 1 mg PO BID@0830,1630 [facility] Last Admin: 12/11/23 08:28 Dose: 1 mg Insulin Glargine (Insulin Glargine,Hum.Rec.Anlog 100 Unit/Ml 10 Ml Vial) 6 unit SUBCUT DAILY [facility] Last Admin: 12/11/23 08:24 Dose: 6 unit Magnesium Oxide (Magnesium Oxide 400 Mg Tablet) 400 mg PO BIDPC [facility] Last Admin: 12/11/23 08:25 Dose: 400 mg Melatonin (Melatonin 3 Mg Tablet) 6 mg PO BEDTIME [facility] Last Admin: 12/10/23 20:03 Dose: 6 mg Memantine (Memantine Hcl 10 Mg Tablet) 10 mg PO BID [facility] Last Admin: 12/11/23 08:24 Dose: 10 mg Polyethylene Glycol (Polyethylene Glycol 3350 17 Gm Powd.Pack) 17 gm PO DAILY [facility] Last Admin: 12/11/23 08:25 Dose: 17 gm Senna (Sennosides 8.6 Mg Tablet) 17.2 mg PO BEDTIME [facility] Last Admin: 12/10/23 20:02 Dose: 17.2 mg Sertraline HCl (Sertraline Hcl 50 Mg Tablet) 150 mg PO DAILY [facility] Last Admin: 12/11/23 08:24 Dose: 150 mg Trazodone HCl (Trazodone Hcl 50 Mg Tablet) 50 mg PO BEDTIME MRX1 PRN PRN Reason: Sleep Last Admin: 12/10/23 20:03 Dose: 50 mg Allergies Allergies Allergy/AdvReac Type Severity Reaction Status Date / Time No Known Allergies Allergy Verified 03/23/23 18:13 Assessment & Plan Assessment & Plan (1) Alzheimer's dementia: Status: Acute Code(s): G30.9 - Alzheimer's disease, unspecified; F02.80 - Dementia in other diseases classified elsewhere, unspecified severity, without behavioral disturbance, psychotic disturbance, mood disturbance, and anxiety Assessment and Plan: August 24 58 years old woman with relative young age onset at Alzheimer dementia but overall clinical picture is affected by significant depression, which continues to be the predominant feature of for clinical picture. Conventional dementia medicines such as donepezil or memantine can be tried but usually do not make significant difference. I would suggest memantine 10 mg twice a day and donepezil 10 mg daily. Recently a new dementia at drug for Alzheimer was approved but only for relatively mild dementia or mild cognitive impairment type of patients. She would not qualify for that drug. 10/18 Patient sitting in chair in the day room, head leaning over to 1 side, resting. When asked how she is doing she says that she has diabetes and that she takes meds for that. She asks if credit underwriter will be down here again. Staff reports no changes in behavior but seems to have more frequent lucid moments. 10/27 continue tx. hold adderall due to increase irritability now that she is covid positive. 10/29: symptomatic of COVID - URI Sx. VSS. no change in mental health presentation. continue current mgmt. 10/30: continues laid low by COVID. psych presentation essentially unchanged. continue current mgmt, monitor VS. 10/31 continue tx. 11/05 CTP no change 11/06/23 - CTP 11/11/2023: No changes 11/12/2023: No changes to current plan 2/2 continue tx. 12/08: no changes 12/09: no changes 12/11 continue tx. Plan 1. Continue with current treatment. 2. Waiting for placement. Plan Plan continue with same treatment Reason for continued inpatient stay Substantial Risk for: inability to function Time Spent With Patient Time: Total time managing care of this patient today ____ minutes.
[2023-12-11 18:00] VITALS: BP 131/90; PULSE 68; RESP 18; TEMP 36.4; O2SAT 97
[2023-12-11] MEDS: Melatonin 3 MG TABLET 6 MG PO (20:07)
[2023-12-11] MEDS: traZODone HCL 50 MG TABLET PO (20:07)
[2023-12-11] MEDS: Sennosides 8.6 MG TABLET 17.2 MG PO (20:08)
[2023-12-11 20:10] LABS: Glucose, Whole Blood 252 mg/dL (60-115)
[2023-12-12 06:48] LABS: Glucose, Whole Blood 131 mg/dL (60-115)
[2023-12-12 08:41] VITALS: BP 125/68; PULSE 58; RESP 16; TEMP 36.2; O2SAT 99
[2023-12-12] MEDS: Magnesium Oxide 400 MG TABLET PO ×2 (08:41→17:29)
[2023-12-12] MEDS: Memantine HCl 10 MG TABLET PO ×2 (08:41→20:14)
[2023-12-12] MEDS: Sertraline HCL 50 MG TABLET 150 MG PO (08:41)
[2023-12-12] MEDS: Insulin Glargine,Hum.rec.anlog 100 UNIT/ML 10 ML VIAL 6 UNIT SUBCUT (08:42)
[2023-12-12] MEDS: polyethylene glycoL 3350 17 GM POWD.PACK PO (08:42)
[2023-12-12] MEDS: HaloperidoL 1 MG TABLET PO ×2 (08:42→17:30)
[2023-12-12] MEDS: Docusate Sodium 100 MG CAPSULE PO ×2 (08:42→20:14)
--- NOTE | 2023-12-12 10:05 | HO.PSYCHPN ---
Subjective Subjective Date of Service: 12/12/23 Reason For Visit: hallucinations confusion Subjective Notes: Conditional Voluntary Interim History: The nursing staff reported the patient remains pleasantly confused, yesterday she was slightly agitated in the morning but redirectable. She has been eating well she slept 7 hours. The occupational therapist reported that some patients who are manic tries to engage with her but she is disengaged due to her advanced dementia. On interview the patient denies new symptoms, waiting for placement. Mental Status Exam Mental Status Exam Patient Appearance: Appropriate Patient Orientation: Person Level of Consciousness: Awake Patient Behavior: Guarded and Passive Mood Description: Withdrawn Affect Description: Blunted Patient Cognition Impaired: Yes Ability to Follow Directions: Good Speech Pattern: Clear Hallucinations: None Delusions: Not Present Thought Process: Evasive Thought Content: positive for [place] and positive for Poverty of Content Judgement: Poor Diagnostics Vital Signs (24Hr): Vital Signs - 24 hr 12/11/23 18:00 12/12/23 08:41 Temperature 97.5 F 97.2 F Pulse Rate 68 58 Respiratory Rate 18 16 Blood Pressure 131/90 H 125/68 Pulse Oximetry 97 99 Oxygen Delivery Method Room Air Room Air BMI result Body Mass Index 27.3 Labs 11/13/23 08:28 11/13/23 08:28 Labs: Laboratory Results - last 48 hr 12/10/23 12/11/23 12/11/23 20:00 06:25 19:38 POC Glucose 189 H 138 H 252 H 12/12/23 06:22 POC Glucose 131 H Imaging Radiology Impressions: ITS Impressions Brain MRI 04/03/23 15:30 IMPRESSION: No acute infarct, mass lesion, intracranial hemorrhage, or evidence of hydrocephalus. Mild nonspecific T2/FLAIR hyperintensity in the cerebral white matter and danny presumably on the basis of chronic microangiopathy. Cervical Spine CT 07/03/23 20:12 IMPRESSION: No acute findings within the cervical spine. The cervical central canal is not well assessed on this CT due to artifact. If weakness persists, a cervical spine MRI would be more sensitive in assessment. Medications Medications Current Medications Acetaminophen (Acetaminophen 325 Mg Tablet) 650 mg PO Q6H PRN PRN Reason: Pain, Mild (Pain Scale 1-3) Last Admin: 12/10/23 00:52 Dose: 650 mg Amphetamine/Dextroamphetamine (Amphetamine Mixed Salts 10 Mg Tablet) 5 mg PO BID@0800,1500 [facility] Bisacodyl (Bisacodyl 5 Mg Tablet.Dr) 10 mg PO DAILY PRN PRN Reason: Constipation Last Admin: 10/13/23 23:19 Dose: 10 mg Docusate Sodium (Docusate Sodium 100 Mg Capsule) 100 mg PO BID [facility] Last Admin: 12/12/23 08:42 Dose: 100 mg Guaifenesin (Guaifenesin La 600 Mg Tab.Er.12h) 600 mg PO BID PRN PRN Reason: Cough Last Admin: 11/02/23 21:54 Dose: 600 mg Haloperidol (Haloperidol 1 Mg Tablet) 1 mg PO Q4H PRN PRN Reason: Hallucinations Last Admin: 12/11/23 20:07 Dose: 1 mg Haloperidol (Haloperidol 1 Mg Tablet) 1 mg PO BID@0830,1630 [facility] Last Admin: 12/12/23 08:42 Dose: 1 mg Insulin Glargine (Insulin Glargine,Hum.Rec.Anlog 100 Unit/Ml 10 Ml Vial) 6 unit SUBCUT DAILY [facility] Last Admin: 12/12/23 08:42 Dose: 6 unit Magnesium Oxide (Magnesium Oxide 400 Mg Tablet) 400 mg PO BIDPC [facility] Last Admin: 12/12/23 08:41 Dose: 400 mg Melatonin (Melatonin 3 Mg Tablet) 6 mg PO BEDTIME [facility] Last Admin: 12/11/23 20:07 Dose: 6 mg Memantine (Memantine Hcl 10 Mg Tablet) 10 mg PO BID [facility] Last Admin: 12/12/23 08:41 Dose: 10 mg Polyethylene Glycol (Polyethylene Glycol 3350 17 Gm Powd.Pack) 17 gm PO DAILY [facility] Last Admin: 12/12/23 08:42 Dose: 17 gm Senna (Sennosides 8.6 Mg Tablet) 17.2 mg PO BEDTIME [facility] Last Admin: 12/11/23 20:08 Dose: 17.2 mg Sertraline HCl (Sertraline Hcl 50 Mg Tablet) 150 mg PO DAILY [facility] Last Admin: 12/12/23 08:41 Dose: 150 mg Trazodone HCl (Trazodone Hcl 50 Mg Tablet) 50 mg PO BEDTIME MRX1 PRN PRN Reason: Sleep Last Admin: 12/11/23 20:07 Dose: 50 mg Allergies Allergies Allergy/AdvReac Type Severity Reaction Status Date / Time No Known Allergies Allergy Verified 03/23/23 18:13 Assessment & Plan Assessment & Plan (1) Alzheimer's dementia: Status: Acute Code(s): G30.9 - Alzheimer's disease, unspecified; F02.80 - Dementia in other diseases classified elsewhere, unspecified severity, without behavioral disturbance, psychotic disturbance, mood disturbance, and anxiety Assessment and Plan: August 24 58 years old woman with relative young age onset at Alzheimer dementia but overall clinical picture is affected by significant depression, which continues to be the predominant feature of for clinical picture. Conventional dementia medicines such as donepezil or memantine can be tried but usually do not make significant difference. I would suggest memantine 10 mg twice a day and donepezil 10 mg daily. Recently a new dementia at drug for Alzheimer was approved but only for relatively mild dementia or mild cognitive impairment type of patients. She would not qualify for that drug. 10/18 Patient sitting in chair in the day room, head leaning over to 1 side, resting. When asked how she is doing she says that she has diabetes and that she takes meds for that. She asks if automotive service writer will be down here again. Staff reports no changes in behavior but seems to have more frequent lucid moments. 10/27 continue tx. hold adderall due to increase irritability now that she is covid positive. 10/29: symptomatic of COVID - URI Sx. VSS. no change in mental health presentation. continue current mgmt. 10/30: continues laid low by COVID. psych presentation essentially unchanged. continue current mgmt, monitor VS. 10/31 continue tx. 11/05 CTP no change 11/06/23 - CTP 11/11/2023: No changes 11/12/2023: No changes to current plan / continue tx. 12/08: no changes 12/09: no changes 12/11 continue tx. Plan 1. Continue with current treatment. 2. Waiting for placement. Plan Plan continue with same treatment Reason for continued inpatient stay Substantial Risk for: inability to function, rapid decompensation and med/psych decompensation Time Spent With Patient Time: Total time managing care of this patient today _20___ minutes.
[2023-12-12 19:54] LABS: Glucose, Whole Blood 194 mg/dL (60-115)
[2023-12-12 20:05] VITALS: BP 158/83; PULSE 61; RESP 15; TEMP 36.7; O2SAT 98
[2023-12-12] MEDS: Melatonin 3 MG TABLET 6 MG PO (20:12)
[2023-12-12] MEDS: Sennosides 8.6 MG TABLET 17.2 MG PO (20:13)
[2023-12-13 06:24] LABS: Glucose, Whole Blood 166 mg/dL (60-115)
[2023-12-13 08:00] VITALS: BP 113/65; PULSE 62; RESP 16; TEMP 36.6; O2SAT 97
[2023-12-13] MEDS: Magnesium Oxide 400 MG TABLET PO ×2 (08:57→16:33)
[2023-12-13] MEDS: Insulin Glargine,Hum.rec.anlog 100 UNIT/ML 10 ML VIAL 6 UNIT SUBCUT (08:57)
[2023-12-13] MEDS: Sertraline HCL 50 MG TABLET 150 MG PO (08:57)
[2023-12-13] MEDS: Memantine HCl 10 MG TABLET PO ×2 (08:57→20:27)
[2023-12-13] MEDS: Docusate Sodium 100 MG CAPSULE PO (08:57)
[2023-12-13] MEDS: HaloperidoL 1 MG TABLET PO ×2 (08:57→16:33)
[2023-12-13] MEDS: polyethylene glycoL 3350 17 GM POWD.PACK PO (09:00)
--- NOTE | 2023-12-13 10:05 | HO.PSYCHPN ---
Subjective Subjective Date of Service: 12/13/23 Reason For Visit: hallucinations confusion Subjective Notes: Conditional Voluntary Interim History: The nursing staff reported the patient had a good day yesterday, she was wandering the unit with her head up. She slept well last night. The social worker health services reported the conservatorship is looking for the for 1K so she can pay for her long-term placement. On interview the patient is pleasantly confused, easily redirectable Mental Status Exam Mental Status Exam Patient Appearance: Well Grooomed and Appropriate Patient Orientation: Person and Situation Level of Consciousness: Awake and Appropriate Patient Behavior: Guarded and Passive Mood Description: Withdrawn Affect Description: Constricted Patient Cognition Impaired: Yes Ability to Follow Directions: Good Speech Pattern: Clear Hallucinations: None Delusions: Not Present Thought Process: Distracted and Slowed Thinking Thought Content: positive for [place] and positive for Poverty of Content Judgement: Poor Diagnostics Vital Signs (24Hr): Vital Signs - 24 hr 12/12/23 20:05 Temperature 98.1 F Pulse Rate 61 Respiratory Rate 15 Blood Pressure 158/83 H Pulse Oximetry 98 Oxygen Delivery Method Room Air BMI result Body Mass Index 27.3 Labs 11/13/23 08:28 11/13/23 08:28 Labs: Laboratory Results - last 48 hr 12/11/23 12/12/23 12/12/23 19:38 06:22 19:50 POC Glucose 252 H 131 H 194 H 12/13/23 06:01 POC Glucose 166 H Imaging Radiology Impressions: ITS Impressions Brain MRI 04/03/23 15:30 IMPRESSION: No acute infarct, mass lesion, intracranial hemorrhage, or evidence of hydrocephalus. Mild nonspecific T2/FLAIR hyperintensity in the cerebral white matter and danny presumably on the basis of chronic microangiopathy. Cervical Spine CT 07/03/23 20:12 IMPRESSION: No acute findings within the cervical spine. The cervical central canal is not well assessed on this CT due to artifact. If weakness persists, a cervical spine MRI would be more sensitive in assessment. Medications Medications Current Medications Acetaminophen (Acetaminophen 325 Mg Tablet) 650 mg PO Q6H PRN PRN Reason: Pain, Mild (Pain Scale 1-3) Last Admin: 12/10/23 00:52 Dose: 650 mg Amphetamine/Dextroamphetamine (Amphetamine Mixed Salts 10 Mg Tablet) 5 mg PO BID@0800,1500 BEN Bisacodyl (Bisacodyl 5 Mg Tablet.Dr) 10 mg PO DAILY PRN PRN Reason: Constipation Last Admin: 10/13/23 23:19 Dose: 10 mg Docusate Sodium (Docusate Sodium 100 Mg Capsule) 100 mg PO BID [facility] Last Admin: 12/13/23 08:57 Dose: 100 mg Guaifenesin (Guaifenesin La 600 Mg Tab.Er.12h) 600 mg PO BID PRN PRN Reason: Cough Last Admin: 11/02/23 21:54 Dose: 600 mg Haloperidol (Haloperidol 1 Mg Tablet) 1 mg PO Q4H PRN PRN Reason: Hallucinations Last Admin: 12/11/23 20:07 Dose: 1 mg Haloperidol (Haloperidol 1 Mg Tablet) 1 mg PO BID@0830,1630 [facility] Last Admin: 12/13/23 08:57 Dose: 1 mg Insulin Glargine (Insulin Glargine,Hum.Rec.Anlog 100 Unit/Ml 10 Ml Vial) 6 unit SUBCUT DAILY [facility] Last Admin: 12/13/23 08:57 Dose: 6 unit Magnesium Oxide (Magnesium Oxide 400 Mg Tablet) 400 mg PO BIDPC [facility] Last Admin: 12/13/23 08:57 Dose: 400 mg Melatonin (Melatonin 3 Mg Tablet) 6 mg PO BEDTIME [facility] Last Admin: 12/12/23 20:12 Dose: 6 mg Memantine (Memantine Hcl 10 Mg Tablet) 10 mg PO BID [facility] Last Admin: 12/13/23 08:57 Dose: 10 mg Polyethylene Glycol (Polyethylene Glycol 3350 17 Gm Powd.Pack) 17 gm PO DAILY [facility] Last Admin: 12/13/23 09:00 Dose: 17 gm Senna (Sennosides 8.6 Mg Tablet) 17.2 mg PO BEDTIME [facility] Last Admin: 12/12/23 20:13 Dose: 17.2 mg Sertraline HCl (Sertraline Hcl 50 Mg Tablet) 150 mg PO DAILY [facility] Last Admin: 12/13/23 08:57 Dose: 150 mg Trazodone HCl (Trazodone Hcl 50 Mg Tablet) 50 mg PO BEDTIME MRX1 PRN PRN Reason: Sleep Last Admin: 12/11/23 20:07 Dose: 50 mg Allergies Allergies Allergy/AdvReac Type Severity Reaction Status Date / Time No Known Allergies Allergy Verified 03/23/23 18:13 Assessment & Plan Assessment & Plan (1) Alzheimer's dementia: Status: Acute Code(s): G30.9 - Alzheimer's disease, unspecified; F02.80 - Dementia in other diseases classified elsewhere, unspecified severity, without behavioral disturbance, psychotic disturbance, mood disturbance, and anxiety Assessment and Plan: August [birth year] 58 years old woman with relative young age onset at Alzheimer dementia but overall clinical picture is affected by significant depression, which continues to be the predominant feature of for clinical picture. Conventional dementia medicines such as donepezil or memantine can be tried but usually do not make significant difference. I would suggest memantine 10 mg twice a day and donepezil 10 mg daily. Recently a new dementia at drug for Alzheimer was approved but only for relatively mild dementia or mild cognitive impairment type of patients. She would not qualify for that drug. 10/18 Patient sitting in chair in the day room, head leaning over to 1 side, resting. When asked how she is doing she says that she has diabetes and that she takes meds for that. 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 Staff reports no changes in behavior but seems to have more frequent lucid moments. 10/27 continue tx. hold adderall due to increase irritability now that she is covid positive. 10/29: symptomatic of COVID - URI Sx. VSS. no change in mental health presentation. continue current mgmt. 10/30: continues laid low by COVID. psych presentation essentially unchanged. continue current mgmt, monitor VS. 10/31 continue tx. 11/05 CTP no change 11/06/23 - CTP 11/11/2023: No changes 11/12/2023: No changes to current plan / continue tx. 12/08: no changes 12/09: no changes 12/11 continue tx. Plan 1. Continue with current treatment. 2. Waiting for placement. Plan Plan continue with same treatment Reason for continued inpatient stay Substantial Risk for: inability to function, rapid decompensation and med/psych decompensation Time Spent With Patient Time: Total time managing care of this patient today __20__ minutes.
[2023-12-13 18:00] VITALS: BP 125/68; PULSE 67; RESP 18; TEMP 36.2; O2SAT 97
[2023-12-13 19:58] LABS: Glucose, Whole Blood 209 mg/dL (60-115)
[2023-12-13] MEDS: traZODone HCL 50 MG TABLET PO (20:27)
[2023-12-13] MEDS: Melatonin 3 MG TABLET 6 MG PO (20:27)
[2023-12-14 06:43] LABS: Glucose, Whole Blood 128 mg/dL (60-115)
[2023-12-14 08:13] VITALS: BP 93/53; PULSE 59; RESP 16; TEMP 36.4; O2SAT 97
[2023-12-14 08:45] VITALS: BP 107/53; PULSE 64; O2SAT 98
[2023-12-14] MEDS: Docusate Sodium 100 MG CAPSULE PO ×2 (08:45→20:58)
[2023-12-14] MEDS: Magnesium Oxide 400 MG TABLET PO ×2 (08:46→17:19)
[2023-12-14] MEDS: HaloperidoL 1 MG TABLET PO ×2 (08:46→17:19)
[2023-12-14] MEDS: Sertraline HCL 50 MG TABLET 150 MG PO (08:46)
[2023-12-14] MEDS: Insulin Glargine,Hum.rec.anlog 100 UNIT/ML 10 ML VIAL 6 UNIT SUBCUT (08:46)
[2023-12-14] MEDS: Memantine HCl 10 MG TABLET PO ×2 (08:46→20:58)
[2023-12-14] MEDS: polyethylene glycoL 3350 17 GM POWD.PACK PO (08:53)
--- NOTE | 2023-12-14 09:34 | PC.NURSE ---
Patients BP this morning was initially 93/53 pulse 59. Vitals re-checked half hour later which read 107/[address] Ruano notified via tiger text to make aware of lower BP compared to last few days. No complaints reported by the patient at this time
--- NOTE | 2023-12-14 13:12 | HO.PSYCHPN ---
Subjective Subjective Date of Service: 12/14/23 Reason For Visit: hallucinations confusion Subjective Notes: Conditional Voluntary Interim History: The nursing staff reported the patient has shown improved behavior she looks more alert and oriented. She slept well last night On interview the patient is pleasantly confused easily redirectable, waiting for placement. Mental Status Exam Mental Status Exam Patient Appearance: Appropriate Patient Orientation: Person and Situation Level of Consciousness: Awake and Appropriate Patient Behavior: Guarded and Passive Mood Description: Withdrawn Affect Description: Constricted Patient Cognition Impaired: Yes Ability to Follow Directions: Good Speech Pattern: Clear Hallucinations: None Delusions: Not Present Thought Process: Distracted and Slowed Thinking Thought Content: positive for [place] and positive for Poverty of Content Judgement: Fair Diagnostics Vital Signs (24Hr): Vital Signs - 24 hr 12/13/23 18:00 12/14/23 08:13 12/14/23 08:45 Temperature 97.2 F 97.6 F Pulse Rate 67 59 64 Respiratory Rate 18 16 Blood Pressure 125/68 93/53 L 107/53 L Pulse Oximetry 97 97 98 Oxygen Delivery Method Room Air Room Air Room Air BMI result Body Mass Index 27.3 Labs 11/13/23 08:28 11/13/23 08:28 Labs: Laboratory Results - last 48 hr 12/12/23 12/13/23 12/13/23 19:50 06:01 19:53 POC Glucose 194 H 166 H 209 H 12/14/23 06:21 POC Glucose 128 H Imaging Radiology Impressions: ITS Impressions Brain MRI 04/03/23 15:30 IMPRESSION: No acute infarct, mass lesion, intracranial hemorrhage, or evidence of hydrocephalus. Mild nonspecific T2/FLAIR hyperintensity in the cerebral white matter and danny presumably on the basis of chronic microangiopathy. Cervical Spine CT 07/03/23 20:12 IMPRESSION: No acute findings within the cervical spine. The cervical central canal is not well assessed on this CT due to artifact. If weakness persists, a cervical spine MRI would be more sensitive in assessment. Medications Medications Current Medications Acetaminophen (Acetaminophen 325 Mg Tablet) 650 mg PO Q6H PRN PRN Reason: Pain, Mild (Pain Scale 1-3) Last Admin: 12/10/23 00:52 Dose: 650 mg Amphetamine/Dextroamphetamine (Amphetamine Mixed Salts 10 Mg Tablet) 5 mg PO BID@0800,1500 BEN Bisacodyl (Bisacodyl 5 Mg Tablet.Dr) 10 mg PO DAILY PRN PRN Reason: Constipation Last Admin: 10/13/23 23:19 Dose: 10 mg Docusate Sodium (Docusate Sodium 100 Mg Capsule) 100 mg PO BID [facility] Last Admin: 12/14/23 08:45 Dose: 100 mg Guaifenesin (Guaifenesin La 600 Mg Tab.Er.12h) 600 mg PO BID PRN PRN Reason: Cough Last Admin: 11/02/23 21:54 Dose: 600 mg Haloperidol (Haloperidol 1 Mg Tablet) 1 mg PO Q4H PRN PRN Reason: Hallucinations Last Admin: 12/11/23 20:07 Dose: 1 mg Haloperidol (Haloperidol 1 Mg Tablet) 1 mg PO BID@0830,1630 [facility] Last Admin: 12/14/23 08:46 Dose: 1 mg Insulin Glargine (Insulin Glargine,Hum.Rec.Anlog 100 Unit/Ml 10 Ml Vial) 6 unit SUBCUT DAILY [facility] Last Admin: 12/14/23 08:46 Dose: 6 unit Magnesium Oxide (Magnesium Oxide 400 Mg Tablet) 400 mg PO BIDPC [facility] Last Admin: 12/14/23 08:46 Dose: 400 mg Melatonin (Melatonin 3 Mg Tablet) 6 mg PO BEDTIME [facility] Last Admin: 12/13/23 20:27 Dose: 6 mg Memantine (Memantine Hcl 10 Mg Tablet) 10 mg PO BID [facility] Last Admin: 12/14/23 08:46 Dose: 10 mg Polyethylene Glycol (Polyethylene Glycol 3350 17 Gm Powd.Pack) 17 gm PO DAILY [facility] Last Admin: 12/14/23 08:53 Dose: 17 gm Senna (Sennosides 8.6 Mg Tablet) 17.2 mg PO BEDTIME [facility] Last Admin: 12/13/23 20:27 Dose: Not Given Sertraline HCl (Sertraline Hcl 50 Mg Tablet) 150 mg PO DAILY [facility] Last Admin: 12/14/23 08:46 Dose: 150 mg Trazodone HCl (Trazodone Hcl 50 Mg Tablet) 50 mg PO BEDTIME MRX1 PRN PRN Reason: Sleep Last Admin: 12/13/23 20:27 Dose: 50 mg Allergies Allergies Allergy/AdvReac Type Severity Reaction Status Date / Time No Known Allergies Allergy Verified 03/23/23 18:13 Assessment & Plan Assessment & Plan (1) Alzheimer's dementia: Status: Acute Code(s): G30.9 - Alzheimer's disease, unspecified; F02.80 - Dementia in other diseases classified elsewhere, unspecified severity, without behavioral disturbance, psychotic disturbance, mood disturbance, and anxiety Assessment and Plan: August 24 58 years old woman with relative young age onset at Alzheimer dementia but overall clinical picture is affected by significant depression, which continues to be the predominant feature of for clinical picture. Conventional dementia medicines such as donepezil or memantine can be tried but usually do not make significant difference. I would suggest memantine 10 mg twice a day and donepezil 10 mg daily. Recently a new dementia at drug for Alzheimer was approved but only for relatively mild dementia or mild cognitive impairment type of patients. She would not qualify for that drug. 10/18 Patient sitting in chair in the day room, head leaning over to 1 side, resting. When asked how she is doing she says that she has diabetes and that she takes meds for that. She asks if service writer will be down here again. Staff reports no changes in behavior but seems to have more frequent lucid moments. 10/27 continue tx. hold adderall due to increase irritability now that she is covid positive. 10/29: symptomatic of COVID - URI Sx. VSS. no change in mental health presentation. continue current mgmt. 10/30: continues laid low by COVID. psych presentation essentially unchanged. continue current mgmt, monitor VS. 10/31 continue tx. 11/05 CTP no change 11/06/23 - CTP 11/11/2023: No changes 11/12/2023: No changes to current plan / continue tx. 12/08: no changes 12/09: no changes 12/11 continue tx. Plan 1. Continue with current treatment. 2. Waiting for placement. Plan Plan continue with same treatment Reason for continued inpatient stay Substantial Risk for: inability to function, rapid decompensation and med/psych decompensation Time Spent With Patient Time: Total time managing care of this patient today __20__ minutes.
[2023-12-14 18:00] VITALS: BP 144/65; PULSE 59; RESP 18; TEMP 36.8; O2SAT 100
[2023-12-14 20:24] LABS: Glucose, Whole Blood 128 mg/dL (60-115)
[2023-12-14] MEDS: Melatonin 3 MG TABLET 6 MG PO (20:58)
[2023-12-14] MEDS: Sennosides 8.6 MG TABLET 17.2 MG PO (20:58)
[2023-12-14] MEDS: Acetaminophen 325 MG TABLET 650 MG PO (21:54)
[2023-12-14] MEDS: traZODone HCL 50 MG TABLET PO (21:54)
[2023-12-15 07:07] LABS: Glucose, Whole Blood 129 mg/dL (60-115)
[2023-12-15 08:49] VITALS: BP 165/71; PULSE 72; RESP 17; TEMP 36.6; O2SAT 93
[2023-12-15] MEDS: polyethylene glycoL 3350 17 GM POWD.PACK PO (08:51)
[2023-12-15] MEDS: Sertraline HCL 50 MG TABLET 150 MG PO (08:51)
[2023-12-15] MEDS: Memantine HCl 10 MG TABLET PO ×2 (08:52→20:53)
[2023-12-15] MEDS: HaloperidoL 1 MG TABLET PO ×2 (08:52→16:52)
[2023-12-15] MEDS: Docusate Sodium 100 MG CAPSULE PO ×2 (08:52→20:53)
[2023-12-15] MEDS: Magnesium Oxide 400 MG TABLET PO ×2 (08:52→16:51)
[2023-12-15] MEDS: Insulin Glargine,Hum.rec.anlog 100 UNIT/ML 10 ML VIAL 6 UNIT SUBCUT (08:54)
[2023-12-15] MEDS: Acetaminophen 325 MG TABLET 650 MG PO (12:03)
--- NOTE | 2023-12-15 14:31 | HO.PSYCHPN ---
Subjective Subjective Date of Service: 12/15/23 Reason For Visit: hallucinations confusion Subjective Notes: Conditional Voluntary Interim History: The nursing staff reported no changes in her mental status, compliant with treatment. On interview the patient denies new symptoms, waiting for placement. Mental Status Exam Mental Status Exam Patient Appearance: Well Grooomed and Appropriate Patient Orientation: Person Level of Consciousness: Awake Patient Behavior: Guarded and Passive Mood Description: Withdrawn Affect Description: Constricted Patient Cognition Impaired: Yes Ability to Follow Directions: Good Speech Pattern: Clear Hallucinations: None Delusions: Not Present Thought Process: Distracted and Evasive Thought Content: positive for [place] and positive for Poverty of Content Judgement: Fair Diagnostics Vital Signs (24Hr): Vital Signs - 24 hr 12/14/23 18:00 12/15/23 08:49 Temperature 98.3 F 97.8 F Pulse Rate 59 72 Respiratory Rate 18 17 Blood Pressure 144/65 H 165/71 H Pulse Oximetry 100 93 Oxygen Delivery Method Room Air Room Air BMI result Body Mass Index 27.3 Labs 11/13/23 08:28 11/13/23 08:28 Labs: Laboratory Results - last 48 hr 12/13/23 12/14/23 12/14/23 19:53 06:21 20:16 POC Glucose 209 H 128 H 128 H 12/15/23 07:03 POC Glucose 129 H Imaging Radiology Impressions: ITS Impressions Brain MRI 04/03/23 15:30 IMPRESSION: No acute infarct, mass lesion, intracranial hemorrhage, or evidence of hydrocephalus. Mild nonspecific T2/FLAIR hyperintensity in the cerebral white matter and danny presumably on the basis of chronic microangiopathy. Cervical Spine CT 07/03/23 20:12 IMPRESSION: No acute findings within the cervical spine. The cervical central canal is not well assessed on this CT due to artifact. If weakness persists, a cervical spine MRI would be more sensitive in assessment. Medications Medications Current Medications Acetaminophen (Acetaminophen 325 Mg Tablet) 650 mg PO Q6H PRN PRN Reason: Pain, Mild (Pain Scale 1-3) Last Admin: 12/15/23 12:03 Dose: 650 mg Amphetamine/Dextroamphetamine (Amphetamine Mixed Salts 10 Mg Tablet) 5 mg PO BID@0800,1500 BEN Bisacodyl (Bisacodyl 5 Mg Tablet.Dr) 10 mg PO DAILY PRN PRN Reason: Constipation Last Admin: 12/08/23 23:19 Dose: 10 mg Docusate Sodium (Docusate Sodium 100 Mg Capsule) 100 mg PO BID [facility] Last Admin: 12/15/23 08:52 Dose: 100 mg Guaifenesin (Guaifenesin La 600 Mg Tab.Er.12h) 600 mg PO BID PRN PRN Reason: Cough Last Admin: 11/02/23 21:54 Dose: 600 mg Haloperidol (Haloperidol 1 Mg Tablet) 1 mg PO Q4H PRN PRN Reason: Hallucinations Last Admin: 12/11/23 20:07 Dose: 1 mg Haloperidol (Haloperidol 1 Mg Tablet) 1 mg PO BID@0830,1630 [facility] Last Admin: 12/15/23 08:52 Dose: 1 mg Insulin Glargine (Insulin Glargine,Hum.Rec.Anlog 100 Unit/Ml 10 Ml Vial) 6 unit SUBCUT DAILY [facility] Last Admin: 12/15/23 08:54 Dose: 6 unit Magnesium Oxide (Magnesium Oxide 400 Mg Tablet) 400 mg PO BIDPC [facility] Last Admin: 12/15/23 08:52 Dose: 400 mg Melatonin (Melatonin 3 Mg Tablet) 6 mg PO BEDTIME [facility] Last Admin: 12/14/23 20:58 Dose: 6 mg Memantine (Memantine Hcl 10 Mg Tablet) 10 mg PO BID [facility] Last Admin: 12/15/23 08:52 Dose: 10 mg Polyethylene Glycol (Polyethylene Glycol 3350 17 Gm Powd.Pack) 17 gm PO DAILY [facility] Last Admin: 12/15/23 08:51 Dose: 17 gm Senna (Sennosides 8.6 Mg Tablet) 17.2 mg PO BEDTIME [facility] Last Admin: 12/14/23 20:58 Dose: 17.2 mg Sertraline HCl (Sertraline Hcl 50 Mg Tablet) 150 mg PO DAILY [facility] Last Admin: 12/15/23 08:51 Dose: 150 mg Trazodone HCl (Trazodone Hcl 50 Mg Tablet) 50 mg PO BEDTIME MRX1 PRN PRN Reason: Sleep Last Admin: 12/14/23 21:54 Dose: 50 mg Allergies Allergies Allergy/AdvReac Type Severity Reaction Status Date / Time No Known Allergies Allergy Verified 03/23/23 18:13 Assessment & Plan Assessment & Plan (1) Alzheimer's dementia: Status: Acute Code(s): G30.9 - Alzheimer's disease, unspecified; F02.80 - Dementia in other diseases classified elsewhere, unspecified severity, without behavioral disturbance, psychotic disturbance, mood disturbance, and anxiety Assessment and Plan: August 24 58 years old woman with relative young age onset at Alzheimer dementia but overall clinical picture is affected by significant depression, which continues to be the predominant feature of for clinical picture. Conventional dementia medicines such as donepezil or memantine can be tried but usually do not make significant difference. I would suggest memantine 10 mg twice a day and donepezil 10 mg daily. Recently a new dementia at drug for Alzheimer was approved but only for relatively mild dementia or mild cognitive impairment type of patients. She would not qualify for that drug. 10/18 Patient sitting in chair in the day room, head leaning over to 1 side, resting. When asked how she is doing she says that she has diabetes and that she takes meds for that. She asks if com writer will be down here again. Staff reports no changes in behavior but seems to have more frequent lucid moments. 10/27 continue tx. hold adderall due to increase irritability now that she is covid positive. 10/29: symptomatic of COVID - URI Sx. VSS. no change in mental health presentation. continue current mgmt. 10/30: continues laid low by COVID. psych presentation essentially unchanged. continue current mgmt, monitor VS. 10/31 continue tx. 11/05 CTP no change 11/06/23 - CTP 11/11/2023: No changes 11/12/2023: No changes to current plan /2 continue tx. 12/08: no changes 12/09: no changes 12/11 continue tx. Plan 1. Continue with current treatment. 2. Waiting for placement. Plan Plan continue with same treatment Reason for continued inpatient stay Substantial Risk for: inability to function, rapid decompensation and med/psych decompensation Time Spent With Patient Time: Total time managing care of this patient today __20_ minutes.
[2023-12-15 18:00] VITALS: BP 132/62; PULSE 63; RESP 18; TEMP 36.8; O2SAT 100
[2023-12-15 20:15] LABS: Glucose, Whole Blood 174 mg/dL (60-115)
[2023-12-15] MEDS: traZODone HCL 50 MG TABLET PO (20:53)
[2023-12-15] MEDS: Melatonin 3 MG TABLET 6 MG PO (20:53)
[2023-12-15] MEDS: Sennosides 8.6 MG TABLET 17.2 MG PO (20:53)
[2023-12-16 07:00] LABS: Glucose, Whole Blood 113 mg/dL (60-115)
[2023-12-16 08:00] VITALS: BP 107/54; PULSE 58; RESP 18; TEMP 36.8; O2SAT 98
[2023-12-16] MEDS: HaloperidoL 1 MG TABLET PO ×2 (08:42→16:36)
[2023-12-16] MEDS: Sertraline HCL 50 MG TABLET 150 MG PO (08:42)
[2023-12-16] MEDS: Docusate Sodium 100 MG CAPSULE PO ×2 (08:42→20:50)
[2023-12-16] MEDS: Memantine HCl 10 MG TABLET PO ×2 (08:42→20:50)
[2023-12-16] MEDS: Magnesium Oxide 400 MG TABLET PO ×2 (08:42→16:36)
[2023-12-16] MEDS: Insulin Glargine,Hum.rec.anlog 100 UNIT/ML 10 ML VIAL 6 UNIT SUBCUT (08:43)
[2023-12-16] MEDS: polyethylene glycoL 3350 17 GM POWD.PACK PO (08:43)
--- NOTE | 2023-12-16 10:26 | HO.PSYCHPN ---
Subjective Subjective Date of Service: 12/16/23 Reason For Visit: hallucinations confusion Interim History: Pt seen, reviewed with team. Sleeping peacefully, awakens easily, maintains eye contact. Team reports no current concerns. Pt utilizing prn medications at night. Medication Compliance: Yes Side effects from medications: No Attending Groups: Intermittent Review of Systems Acute medical concerns: No Medical Review of Systems: unchanged Review of Systems Review of Systems Yes Unobtainable due to mental status Mental Status Exam Mental Status Exam Patient Appearance: Well Grooomed and Appropriate Patient Orientation: Person Level of Consciousness: Awake Patient Behavior: Guarded and Passive Mood Description: Withdrawn Affect Description: Constricted Patient Cognition Impaired: Yes Ability to Follow Directions: Good Speech Pattern: Clear Hallucinations: None Delusions: Not Present Thought Process: Distracted and Evasive Thought Content: positive for [place] and positive for Poverty of Content Judgement: Fair Diagnostics Vital Signs (24Hr): Vital Signs - 24 hr 12/15/23 18:00 12/16/23 08:00 Temperature 98.3 F 98.3 F Pulse Rate 63 58 Respiratory Rate 18 18 Blood Pressure 132/62 107/54 L Pulse Oximetry 100 98 Oxygen Delivery Method Room Air Room Air BMI result Body Mass Index 27.3 Labs 11/13/23 08:28 11/13/23 08:28 Labs: Laboratory Results - last 48 hr 12/14/23 12/15/23 12/15/23 20:16 07:03 19:56 POC Glucose 128 H 129 H 174 H 12/16/23 06:43 POC Glucose 113 Imaging Radiology Impressions: ITS Impressions Brain MRI 04/03/23 15:30 IMPRESSION: No acute infarct, mass lesion, intracranial hemorrhage, or evidence of hydrocephalus. Mild nonspecific T2/FLAIR hyperintensity in the cerebral white matter and danny presumably on the basis of chronic microangiopathy. Cervical Spine CT 07/03/23 20:12 IMPRESSION: No acute findings within the cervical spine. The cervical central canal is not well assessed on this CT due to artifact. If weakness persists, a cervical spine MRI would be more sensitive in assessment. Medications Medications Current Medications Acetaminophen (Acetaminophen 325 Mg Tablet) 650 mg PO Q6H PRN PRN Reason: Pain, Mild (Pain Scale 1-3) Last Admin: 12/15/23 12:03 Dose: 650 mg Amphetamine/Dextroamphetamine (Amphetamine Mixed Salts 10 Mg Tablet) 5 mg PO BID@0800,1500 [facility] Bisacodyl (Bisacodyl 5 Mg Tablet.Dr) 10 mg PO DAILY PRN PRN Reason: Constipation Last Admin: 10/13/23 23:19 Dose: 10 mg Docusate Sodium (Docusate Sodium 100 Mg Capsule) 100 mg PO BID [facility] Last Admin: 12/16/23 08:42 Dose: 100 mg Guaifenesin (Guaifenesin La 600 Mg Tab.Er.12h) 600 mg PO BID PRN PRN Reason: Cough Last Admin: 11/02/23 21:54 Dose: 600 mg Haloperidol (Haloperidol 1 Mg Tablet) 1 mg PO Q4H PRN PRN Reason: Hallucinations Last Admin: 12/11/23 20:07 Dose: 1 mg Haloperidol (Haloperidol 1 Mg Tablet) 1 mg PO BID@0830,1630 [facility] Last Admin: 12/16/23 08:42 Dose: 1 mg Insulin Glargine (Insulin Glargine,Hum.Rec.Anlog 100 Unit/Ml 10 Ml Vial) 6 unit SUBCUT DAILY [facility] Last Admin: 12/16/23 08:43 Dose: 6 unit Magnesium Oxide (Magnesium Oxide 400 Mg Tablet) 400 mg PO BIDPC [facility] Last Admin: 12/16/23 08:42 Dose: 400 mg Melatonin (Melatonin 3 Mg Tablet) 6 mg PO BEDTIME [facility] Last Admin: 12/15/23 20:53 Dose: 6 mg Memantine (Memantine Hcl 10 Mg Tablet) 10 mg PO BID [facility] Last Admin: 12/16/23 08:42 Dose: 10 mg Polyethylene Glycol (Polyethylene Glycol 3350 17 Gm Powd.Pack) 17 gm PO DAILY [facility] Last Admin: 12/16/23 08:43 Dose: 17 gm Senna (Sennosides 8.6 Mg Tablet) 17.2 mg PO BEDTIME [facility] Last Admin: 12/15/23 20:53 Dose: 17.2 mg Sertraline HCl (Sertraline Hcl 50 Mg Tablet) 150 mg PO DAILY [facility] Last Admin: 12/16/23 08:42 Dose: 150 mg Trazodone HCl (Trazodone Hcl 50 Mg Tablet) 50 mg PO BEDTIME MRX1 PRN PRN Reason: Sleep Last Admin: 12/15/23 20:53 Dose: 50 mg Allergies Allergies Allergy/AdvReac Type Severity Reaction Status Date / Time No Known Allergies Allergy Verified 03/23/23 18:13 Assessment & Plan Assessment & Plan (1) Alzheimer's dementia: Status: Acute Code(s): G30.9 - Alzheimer's disease, unspecified; F02.80 - Dementia in other diseases classified elsewhere, unspecified severity, without behavioral disturbance, psychotic disturbance, mood disturbance, and anxiety Assessment and Plan: August [birth year] 58 years old woman with relative young age onset at Alzheimer dementia but overall clinical picture is affected by significant depression, which continues to be the predominant feature of for clinical picture. Conventional dementia medicines such as donepezil or memantine can be tried but usually do not make significant difference. I would suggest memantine 10 mg twice a day and donepezil 10 mg daily. Recently a new dementia at drug for Alzheimer was approved but only for relatively mild dementia or mild cognitive impairment type of patients. She would not qualify for that drug. 10/18 Patient sitting in chair in the day room, head leaning over to 1 side, resting. When asked how she is doing she says that she has diabetes and that she takes meds for that. 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 Staff reports no changes in behavior but seems to have more frequent lucid moments. 10/27 continue tx. hold adderall due to increase irritability now that she is covid positive. 10/29: symptomatic of COVID - URI Sx. VSS. no change in mental health presentation. continue current mgmt. 10/30: continues laid low by COVID. psych presentation essentially unchanged. continue current mgmt, monitor VS. 10/31 continue tx. 11/05 CTP no change 11/06/23 - CTP 11/11/2023: No changes 11/12/2023: No changes to current plan / continue tx. 12/08: no changes 12/09: no changes 12/11 continue tx. 12/16/23 Continue tx. Plan 1. Continue with current treatment. 2. Waiting for placement. Plan Plan continue with same treatment Informed Consent: does not understand Reason for continued inpatient stay Substantial Risk for: rapid decompensation Time Spent With Patient Time: Total time managing care of this patient today ____ minutes.
[2023-12-16 18:00] VITALS: BP 132/70; PULSE 69; RESP 18; TEMP 36.7; O2SAT 99
[2023-12-16 20:18] LABS: Glucose, Whole Blood 205 mg/dL (60-115)
[2023-12-16] MEDS: Sennosides 8.6 MG TABLET 17.2 MG PO (20:50)
[2023-12-16] MEDS: traZODone HCL 50 MG TABLET PO (20:50)
[2023-12-16] MEDS: Melatonin 3 MG TABLET 6 MG PO (20:50)
[2023-12-17 06:00] VITALS: BP 133/72; PULSE 66; RESP 18; TEMP 36.5; O2SAT 98
[2023-12-17 07:02] LABS: Glucose, Whole Blood 128 mg/dL (60-115)
[2023-12-17] MEDS: Docusate Sodium 100 MG CAPSULE PO ×2 (10:27→20:48)
[2023-12-17] MEDS: HaloperidoL 1 MG TABLET PO ×2 (10:28→17:00)
[2023-12-17] MEDS: Sertraline HCL 50 MG TABLET 150 MG PO (10:28)
[2023-12-17] MEDS: Insulin Glargine,Hum.rec.anlog 100 UNIT/ML 10 ML VIAL 6 UNIT SUBCUT (10:28)
[2023-12-17] MEDS: Memantine HCl 10 MG TABLET PO ×2 (10:28→20:49)
[2023-12-17] MEDS: Magnesium Oxide 400 MG TABLET PO ×2 (10:28→17:00)
[2023-12-17] MEDS: polyethylene glycoL 3350 17 GM POWD.PACK PO (10:30)
--- NOTE | 2023-12-17 17:48 | HO.PSYCHPN ---
Subjective Subjective Date of Service: 12/17/23 Reason For Visit: hallucinations confusion Interim History: Pt seen, discussed with the team. Team reports pt able to sleep last night. Appetite intact, no current concerns. Team does report pt does have effect from room-mate. Calm, resting, attentive, alert when seen. Medication Compliance: Yes Side effects from medications: No Attending Groups: No Review of Systems Acute medical concerns: No Medical Review of Systems: unchanged Review of Systems Review of Systems Yes all other systems are reviewed and are negative Mental Status Exam Mental Status Exam Patient Appearance: Well Grooomed and Appropriate Patient Orientation: Person Level of Consciousness: Awake Patient Behavior: Guarded and Passive Mood Description: Withdrawn Affect Description: Constricted Patient Cognition Impaired: Yes Ability to Follow Directions: Good Speech Pattern: Clear Hallucinations: None Delusions: Not Present Thought Process: Distracted and Evasive Thought Content: positive for [place] and positive for Poverty of Content Judgement: Fair Diagnostics Vital Signs (24Hr): Vital Signs - 24 hr 12/16/23 18:00 12/17/23 06:00 Temperature 98.1 F 97.7 F Pulse Rate 69 66 Respiratory Rate 18 18 Blood Pressure 132/70 133/72 Pulse Oximetry 99 98 Oxygen Delivery Method Room Air Room Air BMI result Body Mass Index 27.3 Labs 11/13/23 08:28 11/13/23 08:28 Labs: Laboratory Results - last 48 hr 12/15/23 12/16/23 12/16/23 19:56 06:43 20:06 POC Glucose 174 H 113 205 H 12/17/23 06:52 POC Glucose 128 H Imaging Radiology Impressions: ITS Impressions Brain MRI 04/03/23 15:30 IMPRESSION: No acute infarct, mass lesion, intracranial hemorrhage, or evidence of hydrocephalus. Mild nonspecific T2/FLAIR hyperintensity in the cerebral white matter and danny presumably on the basis of chronic microangiopathy. Cervical Spine CT 07/03/23 20:12 IMPRESSION: No acute findings within the cervical spine. The cervical central canal is not well assessed on this CT due to artifact. If weakness persists, a cervical spine MRI would be more sensitive in assessment. Medications Medications Current Medications Acetaminophen (Acetaminophen 325 Mg Tablet) 650 mg PO Q6H PRN PRN Reason: Pain, Mild (Pain Scale 1-3) Last Admin: 12/15/23 12:03 Dose: 650 mg Amphetamine/Dextroamphetamine (Amphetamine Mixed Salts 10 Mg Tablet) 5 mg PO BID@0800,1500 [facility] Bisacodyl (Bisacodyl 5 Mg Tablet.Dr) 10 mg PO DAILY PRN PRN Reason: Constipation Last Admin: 10/13/23 23:19 Dose: 10 mg Docusate Sodium (Docusate Sodium 100 Mg Capsule) 100 mg PO BID [facility] Last Admin: 12/17/23 10:27 Dose: 100 mg Guaifenesin (Guaifenesin La 600 Mg Tab.Er.12h) 600 mg PO BID PRN PRN Reason: Cough Last Admin: 11/02/23 21:54 Dose: 600 mg Haloperidol (Haloperidol 1 Mg Tablet) 1 mg PO Q4H PRN PRN Reason: Hallucinations Last Admin: 12/11/23 20:07 Dose: 1 mg Haloperidol (Haloperidol 1 Mg Tablet) 1 mg PO BID@0830,1630 [facility] Last Admin: 12/17/23 17:00 Dose: 1 mg Insulin Glargine (Insulin Glargine,Hum.Rec.Anlog 100 Unit/Ml 10 Ml Vial) 6 unit SUBCUT DAILY [facility] Last Admin: 12/17/23 10:28 Dose: 6 unit Magnesium Oxide (Magnesium Oxide 400 Mg Tablet) 400 mg PO BIDPC [facility] Last Admin: 12/17/23 17:00 Dose: 400 mg Melatonin (Melatonin 3 Mg Tablet) 6 mg PO BEDTIME [facility] Last Admin: 12/16/23 20:50 Dose: 6 mg Memantine (Memantine Hcl 10 Mg Tablet) 10 mg PO BID [facility] Last Admin: 12/17/23 10:28 Dose: 10 mg Polyethylene Glycol (Polyethylene Glycol 3350 17 Gm Powd.Pack) 17 gm PO DAILY [facility] Last Admin: 12/17/23 10:30 Dose: 17 gm Senna (Sennosides 8.6 Mg Tablet) 17.2 mg PO BEDTIME [facility] Last Admin: 12/16/23 20:50 Dose: 17.2 mg Sertraline HCl (Sertraline Hcl 50 Mg Tablet) 150 mg PO DAILY [facility] Last Admin: 12/17/23 10:28 Dose: 150 mg Trazodone HCl (Trazodone Hcl 50 Mg Tablet) 50 mg PO BEDTIME MRX1 PRN PRN Reason: Sleep Last Admin: 12/16/23 20:50 Dose: 50 mg Allergies Allergies Allergy/AdvReac Type Severity Reaction Status Date / Time No Known Allergies Allergy Verified 03/23/23 18:13 Assessment & Plan Assessment & Plan (1) Alzheimer's dementia: Status: Acute Code(s): G30.9 - Alzheimer's disease, unspecified; F02.80 - Dementia in other diseases classified elsewhere, unspecified severity, without behavioral disturbance, psychotic disturbance, mood disturbance, and anxiety Assessment and Plan: August 24 58 years old woman with relative young age onset at Alzheimer dementia but overall clinical picture is affected by significant depression, which continues to be the predominant feature of for clinical picture. Conventional dementia medicines such as donepezil or memantine can be tried but usually do not make significant difference. I would suggest memantine 10 mg twice a day and donepezil 10 mg daily. Recently a new dementia at drug for Alzheimer was approved but only for relatively mild dementia or mild cognitive impairment type of patients. She would not qualify for that drug. 10/18 Patient sitting in chair in the day room, head leaning over to 1 side, resting. When asked how she is doing she says that she has diabetes and that she takes meds for that. 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 Staff reports no changes in behavior but seems to have more frequent lucid moments. 10/27 continue tx. hold adderall due to increase irritability now that she is covid positive. 10/29: symptomatic of COVID - URI Sx. VSS. no change in mental health presentation. continue current mgmt. 10/30: continues laid low by COVID. psych presentation essentially unchanged. continue current mgmt, monitor VS. 10/31 continue tx. 11/05 CTP no change 11/06/23 - CTP 11/11/2023: No changes 11/12/2023: No changes to current plan 12/08 continue tx. 12/08: no changes 12/09: no changes 12/11 continue tx. 12/16/23 Continue tx. 12/17/23 Continue tx. Plan 1. Continue with current treatment. 2. Waiting for placement. Plan Plan continue with same treatment Reason for continued inpatient stay Substantial Risk for: rapid decompensation Time Spent With Patient Time: Total time managing care of this patient today ____ minutes.
[2023-12-17 18:00] VITALS: BP 118/59; PULSE 61; RESP 17; TEMP 36.8; O2SAT 98
[2023-12-17] MEDS: Melatonin 3 MG TABLET 6 MG PO (20:49)
[2023-12-17] MEDS: Sennosides 8.6 MG TABLET 17.2 MG PO (20:49)
[2023-12-17 21:03] LABS: Glucose, Whole Blood 182 mg/dL (60-115)
[2023-12-17] MEDS: Acetaminophen 325 MG TABLET 650 MG PO (22:20)
[2023-12-17] MEDS: traZODone HCL 50 MG TABLET PO (22:20)
[2023-12-18 06:05] LABS: Glucose, Whole Blood 131 mg/dL (60-115)
[2023-12-18 08:51] VITALS: BP 115/56; PULSE 63; RESP 16; TEMP 37; O2SAT 96
[2023-12-18] MEDS: polyethylene glycoL 3350 17 GM POWD.PACK PO (08:53)
[2023-12-18] MEDS: HaloperidoL 1 MG TABLET PO ×2 (08:54→17:01)
[2023-12-18] MEDS: Memantine HCl 10 MG TABLET PO ×2 (08:54→20:04)
[2023-12-18] MEDS: Magnesium Oxide 400 MG TABLET PO ×2 (08:54→17:01)
[2023-12-18] MEDS: Docusate Sodium 100 MG CAPSULE PO ×2 (08:54→20:04)
[2023-12-18] MEDS: Sertraline HCL 50 MG TABLET 150 MG PO (08:54)
[2023-12-18] MEDS: Insulin Glargine,Hum.rec.anlog 100 UNIT/ML 10 ML VIAL 6 UNIT SUBCUT (08:55)
--- NOTE | 2023-12-18 12:48 | HO.PSYCHPN ---
Subjective Subjective Date of Service: 12/18/23 Reason For Visit: hallucinations confusion Subjective Notes: Conditional Voluntary Interim History: The nursing staff reported no changes in her mental status, compliant with treatment. On interview the patient denies new symptoms, waiting for placement. Mental Status Exam Mental Status Exam Patient Appearance: Appropriate Patient Orientation: Person Level of Consciousness: Awake Patient Behavior: Guarded and Passive Mood Description: Withdrawn Affect Description: Constricted Patient Cognition Impaired: Yes Ability to Follow Directions: Good Speech Pattern: Impoverished Hallucinations: None Delusions: Not Present Thought Process: Evasive and Slowed Thinking Thought Content: positive for [place] and positive for Poverty of Content Judgement: Fair Diagnostics Vital Signs (24Hr): Vital Signs - 24 hr 12/17/23 18:00 12/18/23 08:51 Temperature 98.2 F 98.6 F Pulse Rate 61 63 Respiratory Rate 17 16 Blood Pressure 118/59 L 115/56 L Pulse Oximetry 98 96 Oxygen Delivery Method Room Air Room Air BMI result Body Mass Index 27.3 Labs 11/13/23 08:28 11/13/23 08:28 Labs: Laboratory Results - last 48 hr 12/16/23 12/17/23 12/17/23 20:06 06:52 20:47 POC Glucose 205 H 128 H 182 H 12/18/23 05:52 POC Glucose 131 H Imaging Radiology Impressions: ITS Impressions Brain MRI 04/03/23 15:30 IMPRESSION: No acute infarct, mass lesion, intracranial hemorrhage, or evidence of hydrocephalus. Mild nonspecific T2/FLAIR hyperintensity in the cerebral white matter and danny presumably on the basis of chronic microangiopathy. Cervical Spine CT 07/03/23 20:12 IMPRESSION: No acute findings within the cervical spine. The cervical central canal is not well assessed on this CT due to artifact. If weakness persists, a cervical spine MRI would be more sensitive in assessment. Medications Medications Current Medications Acetaminophen (Acetaminophen 325 Mg Tablet) 650 mg PO Q6H PRN PRN Reason: Pain, Mild (Pain Scale 1-3) Last Admin: 12/17/23 22:20 Dose: 650 mg Amphetamine/Dextroamphetamine (Amphetamine Mixed Salts 10 Mg Tablet) 5 mg PO BID@0800,1500 [facility] Bisacodyl (Bisacodyl 5 Mg Tablet.Dr) 10 mg PO DAILY PRN PRN Reason: Constipation Last Admin: 10/13/23 23:19 Dose: 10 mg Docusate Sodium (Docusate Sodium 100 Mg Capsule) 100 mg PO BID [facility] Last Admin: 12/18/23 08:54 Dose: 100 mg Guaifenesin (Guaifenesin La 600 Mg Tab.Er.12h) 600 mg PO BID PRN PRN Reason: Cough Last Admin: 11/02/23 21:54 Dose: 600 mg Haloperidol (Haloperidol 1 Mg Tablet) 1 mg PO Q4H PRN PRN Reason: Hallucinations Last Admin: 12/11/23 20:07 Dose: 1 mg Haloperidol (Haloperidol 1 Mg Tablet) 1 mg PO BID@0830,1630 [facility] Last Admin: 12/18/23 08:54 Dose: 1 mg Insulin Glargine (Insulin Glargine,Hum.Rec.Anlog 100 Unit/Ml 10 Ml Vial) 6 unit SUBCUT DAILY [facility] Last Admin: 12/18/23 08:55 Dose: 6 unit Magnesium Oxide (Magnesium Oxide 400 Mg Tablet) 400 mg PO BIDPC [facility] Last Admin: 12/18/23 08:54 Dose: 400 mg Melatonin (Melatonin 3 Mg Tablet) 6 mg PO BEDTIME [facility] Last Admin: 12/17/23 20:49 Dose: 6 mg Memantine (Memantine Hcl 10 Mg Tablet) 10 mg PO BID [facility] Last Admin: 12/18/23 08:54 Dose: 10 mg Polyethylene Glycol (Polyethylene Glycol 3350 17 Gm Powd.Pack) 17 gm PO DAILY [facility] Last Admin: 12/18/23 08:53 Dose: 17 gm Senna (Sennosides 8.6 Mg Tablet) 17.2 mg PO BEDTIME [facility] Last Admin: 12/17/23 20:49 Dose: 17.2 mg Sertraline HCl (Sertraline Hcl 50 Mg Tablet) 150 mg PO DAILY [facility] Last Admin: 12/18/23 08:54 Dose: 150 mg Trazodone HCl (Trazodone Hcl 50 Mg Tablet) 50 mg PO BEDTIME MRX1 PRN PRN Reason: Sleep Last Admin: 12/17/23 22:20 Dose: 50 mg Allergies Allergies Allergy/AdvReac Type Severity Reaction Status Date / Time No Known Allergies Allergy Verified 03/23/23 18:13 Assessment & Plan Assessment & Plan (1) Alzheimer's dementia: Status: Acute Code(s): G30.9 - Alzheimer's disease, unspecified; F02.80 - Dementia in other diseases classified elsewhere, unspecified severity, without behavioral disturbance, psychotic disturbance, mood disturbance, and anxiety Assessment and Plan: August 24 58 years old woman with relative young age onset at Alzheimer dementia but overall clinical picture is affected by significant depression, which continues to be the predominant feature of for clinical picture. Conventional dementia medicines such as donepezil or memantine can be tried but usually do not make significant difference. I would suggest memantine 10 mg twice a day and donepezil 10 mg daily. Recently a new dementia at drug for Alzheimer was approved but only for relatively mild dementia or mild cognitive impairment type of patients. She would not qualify for that drug. 10/18 Patient sitting in chair in the day room, head leaning over to 1 side, resting. When asked how she is doing she says that she has diabetes and that she takes meds for that. 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 Staff reports no changes in behavior but seems to have more frequent lucid moments. 10/27 continue tx. hold adderall due to increase irritability now that she is covid positive. 10/29: symptomatic of COVID - URI Sx. VSS. no change in mental health presentation. continue current mgmt. 10/30: continues laid low by COVID. psych presentation essentially unchanged. continue current mgmt, monitor VS. 10/31 continue tx. 11/05 CTP no change 11/06/23 - CTP 11/11/2023: No changes 11/12/2023: No changes to current plan 12/08 continue tx. 12/08: no changes 12/09: no changes 12/11 continue tx. 12/16/23 Continue tx. 12/17/23 Continue tx. Plan 1. Continue with current treatment. 2. Waiting for placement. Plan Plan continue with same treatment Reason for continued inpatient stay Substantial Risk for: inability to function, rapid decompensation and med/psych decompensation Time Spent With Patient Time: Total time managing care of this patient today __20__ minutes.
[2023-12-18 18:00] VITALS: BP 178/81; PULSE 58; RESP 16; TEMP 36.2; O2SAT 100
[2023-12-18] MEDS: Melatonin 3 MG TABLET 6 MG PO (20:00)
[2023-12-18] MEDS: Sennosides 8.6 MG TABLET 17.2 MG PO (20:03)
[2023-12-18] MEDS: traZODone HCL 50 MG TABLET PO (20:04)
[2023-12-18 20:08] LABS: Glucose, Whole Blood 159 mg/dL (60-115)
[2023-12-19 06:19] LABS: Glucose, Whole Blood 139 mg/dL (60-115)
[2023-12-19 08:43] VITALS: BP 112/53; PULSE 61; RESP 15; TEMP 36.6; O2SAT 99
[2023-12-19] MEDS: Insulin Glargine,Hum.rec.anlog 100 UNIT/ML 10 ML VIAL 6 UNIT SUBCUT (08:44)
[2023-12-19] MEDS: Sertraline HCL 50 MG TABLET 150 MG PO (08:44)
[2023-12-19] MEDS: polyethylene glycoL 3350 17 GM POWD.PACK PO (08:44)
[2023-12-19] MEDS: HaloperidoL 1 MG TABLET PO ×2 (08:45→16:22)
[2023-12-19] MEDS: Memantine HCl 10 MG TABLET PO ×2 (08:45→19:55)
[2023-12-19] MEDS: Magnesium Oxide 400 MG TABLET PO ×2 (08:45→16:22)
[2023-12-19] MEDS: Docusate Sodium 100 MG CAPSULE PO ×2 (08:45→19:57)
--- NOTE | 2023-12-19 12:12 | HO.PSYCHPN ---
Subjective Subjective Date of Service: 12/19/23 Reason For Visit: hallucinations confusion Subjective Notes: Conditional Voluntary Interim History: The nursing staff reported that she had been tearful at times, she took trazodone last night. On interview remains pleasantly confused, easily redirectable, waiting for placement. Mental Status Exam Mental Status Exam Patient Appearance: Well Grooomed and Appropriate Patient Orientation: Person and Situation Level of Consciousness: Awake and Appropriate Patient Behavior: Guarded and Passive Mood Description: Withdrawn Affect Description: Constricted Patient Cognition Impaired: Yes Ability to Follow Directions: Good Speech Pattern: Clear Hallucinations: None Delusions: Not Present Thought Process: Distracted and Slowed Thinking Thought Content: positive for [place], positive for Poverty of Content and positive for Thought Blocking Judgement: Fair Diagnostics Vital Signs (24Hr): Vital Signs - 24 hr 12/18/23 18:00 12/19/23 08:43 Temperature 97.2 F 97.9 F Pulse Rate 58 61 Respiratory Rate 16 15 Blood Pressure 178/81 H 112/53 L Pulse Oximetry 100 99 Oxygen Delivery Method Room Air Room Air BMI result Body Mass Index 27.3 Labs 11/13/23 08:28 11/13/23 08:28 Labs: Laboratory Results - last 48 hr 12/17/23 12/18/23 12/18/23 20:47 05:52 19:55 POC Glucose 182 H 131 H 159 H 12/19/23 06:03 POC Glucose 139 H Imaging Radiology Impressions: ITS Impressions Brain MRI 04/03/23 15:30 IMPRESSION: No acute infarct, mass lesion, intracranial hemorrhage, or evidence of hydrocephalus. Mild nonspecific T2/FLAIR hyperintensity in the cerebral white matter and danny presumably on the basis of chronic microangiopathy. Cervical Spine CT 07/03/23 20:12 IMPRESSION: No acute findings within the cervical spine. The cervical central canal is not well assessed on this CT due to artifact. If weakness persists, a cervical spine MRI would be more sensitive in assessment. Medications Medications Current Medications Acetaminophen (Acetaminophen 325 Mg Tablet) 650 mg PO Q6H PRN PRN Reason: Pain, Mild (Pain Scale 1-3) Last Admin: 12/17/23 22:20 Dose: 650 mg Amphetamine/Dextroamphetamine (Amphetamine Mixed Salts 10 Mg Tablet) 5 mg PO BID@0800,1500 [facility] Bisacodyl (Bisacodyl 5 Mg Tablet.Dr) 10 mg PO DAILY PRN PRN Reason: Constipation Last Admin: 10/13/23 23:19 Dose: 10 mg Docusate Sodium (Docusate Sodium 100 Mg Capsule) 100 mg PO BID COUNT INCLUDES THE [facility] Last Admin: 12/19/23 08:45 Dose: 100 mg Guaifenesin (Guaifenesin La 600 Mg Tab.Er.12h) 600 mg PO BID PRN PRN Reason: Cough Last Admin: 11/02/23 21:54 Dose: 600 mg Haloperidol (Haloperidol 1 Mg Tablet) 1 mg PO Q4H PRN PRN Reason: Hallucinations Last Admin: 12/11/23 20:07 Dose: 1 mg Haloperidol (Haloperidol 1 Mg Tablet) 1 mg PO BID@0830,1630 COUNT [facility]CLUDES [facility] Last Admin: 12/19/23 08:45 Dose: 1 mg Insulin Glargine (Insulin Glargine,Hum.Rec.Anlog 100 Unit/Ml 10 Ml Vial) 6 unit SUBCUT DAILY COUNT INCLUDES [facility] Last Admin: 12/19/23 08:44 Dose: 6 unit Magnesium Oxide (Magnesium Oxide 400 Mg Tablet) 400 mg PO BIDPC COUNT INCLUDES THE [facility] Last Admin: 12/19/23 08:45 Dose: 400 mg Melatonin (Melatonin 3 Mg Tablet) 6 mg PO BEDTIME COUNT INCLUDES [facility] Last Admin: 12/18/23 20:00 Dose: 6 mg Memantine (Memantine Hcl 10 Mg Tablet) 10 mg PO BID COUNT INCLUDES [facility] Last Admin: 12/19/23 08:45 Dose: 10 mg Polyethylene Glycol (Polyethylene Glycol 3350 17 Gm Powd.Pack) 17 gm PO DAILY COUNT INCLUDES [facility] Last Admin: 12/19/23 08:44 Dose: 17 gm Senna (Sennosides 8.6 Mg Tablet) 17.2 mg PO BEDTIME COUNT INCLUDES [facility] Last Admin: 12/18/23 20:03 Dose: 17.2 mg Sertraline HCl (Sertraline Hcl 50 Mg Tablet) 150 mg PO DAILY COUNT INCLUDES [facility] Last Admin: 12/19/23 08:44 Dose: 150 mg Trazodone HCl (Trazodone Hcl 50 Mg Tablet) 50 mg PO BEDTIME MRX1 PRN PRN Reason: Sleep Last Admin: 12/18/23 20:04 Dose: 50 mg Allergies Allergies Allergy/AdvReac Type Severity Reaction Status Date / Time No Known Allergies Allergy Verified 03/23/23 18:13 Assessment & Plan Assessment & Plan (1) Alzheimer's dementia: Status: Acute Code(s): G30.9 - Alzheimer's disease, unspecified; F02.80 - Dementia in other diseases classified elsewhere, unspecified severity, without behavioral disturbance, psychotic disturbance, mood disturbance, and anxiety Assessment and Plan: August 24 58 years old woman with relative young age onset at Alzheimer dementia but overall clinical picture is affected by significant depression, which continues to be the predominant feature of for clinical picture. Conventional dementia medicines such as donepezil or memantine can be tried but usually do not make significant difference. I would suggest memantine 10 mg twice a day and donepezil 10 mg daily. Recently a new dementia at drug for Alzheimer was approved but only for relatively mild dementia or mild cognitive impairment type of patients. She would not qualify for that drug. 10/18 Patient sitting in chair in the day room, head leaning over to 1 side, resting. When asked how she is doing she says that she has diabetes and that she takes meds for that. 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 Staff reports no changes in behavior but seems to have more frequent lucid moments. 10/27 continue tx. hold adderall due to increase irritability now that she is covid positive. 10/29: symptomatic of COVID - URI Sx. VSS. no change in mental health presentation. continue current mgmt. 10/30: continues laid low by COVID. psych presentation essentially unchanged. continue current mgmt, monitor VS. 10/31 continue tx. 11/05 CTP no change 11/06/23 - CTP 11/11/2023: No changes 11/12/2023: No changes to current plan 12/08 continue tx. 12/08: no changes 12/09: no changes 12/11 continue tx. 12/16/23 Continue tx. 12/17/23 Continue tx. Plan 1. Continue with current treatment. 2. Waiting for placement. Plan Plan continue with same treatment Reason for continued inpatient stay Substantial Risk for: inability to function, rapid decompensation and med/psych decompensation Time Spent With Patient Time: Total time managing care of this patient today _20___ minutes.
[2023-12-19 18:00] VITALS: BP 135/64; PULSE 63; RESP 16; TEMP 36.9; O2SAT 100
[2023-12-19 19:45] LABS: Glucose, Whole Blood 164 mg/dL (60-115)
[2023-12-19] MEDS: Melatonin 3 MG TABLET 6 MG PO (19:53)
[2023-12-19] MEDS: Sennosides 8.6 MG TABLET 17.2 MG PO (19:53)
[2023-12-19 21:05] VITALS: BP 107/50; PULSE 59; RESP 16; O2SAT 95
[2023-12-19 22:00] VITALS: BP 110/52; PULSE 62; RESP 16; TEMP 36.6; O2SAT 95
[2023-12-20 06:31] LABS: Glucose, Whole Blood 141 mg/dL (60-115)
[2023-12-20 08:44] VITALS: BP 115/60; PULSE 62; RESP 16; TEMP 36.4; O2SAT 96
[2023-12-20] MEDS: Magnesium Oxide 400 MG TABLET PO ×2 (08:46→17:17)
[2023-12-20] MEDS: Docusate Sodium 100 MG CAPSULE PO ×2 (08:46→21:01)
[2023-12-20] MEDS: Insulin Glargine,Hum.rec.anlog 100 UNIT/ML 10 ML VIAL 6 UNIT SUBCUT (08:46)
[2023-12-20] MEDS: Sertraline HCL 50 MG TABLET 150 MG PO (08:46)
[2023-12-20] MEDS: HaloperidoL 1 MG TABLET PO ×2 (08:46→17:17)
[2023-12-20] MEDS: Memantine HCl 10 MG TABLET PO ×2 (08:46→21:01)
[2023-12-20] MEDS: polyethylene glycoL 3350 17 GM POWD.PACK PO (08:47)
--- NOTE | 2023-12-20 13:27 | HO.PSYCHPN ---
Subjective Subjective Date of Service: 12/20/23 Reason For Visit: hallucinations confusion Subjective Notes: Conditional Voluntary Interim History: The nursing staff reported no changes in her mental status, she was found sitting in the bathroom last night apparently she slept but there is no signs of injury and the patient denies any pain. On interview the patient denies new symptoms, waiting for placement. Mental Status Exam Mental Status Exam Patient Appearance: Well Grooomed and Appropriate Patient Orientation: Person and Situation Level of Consciousness: Awake and Appropriate Patient Behavior: Guarded and Passive Mood Description: Calm Affect Description: Constricted Patient Cognition Impaired: Yes Ability to Follow Directions: Good Speech Pattern: Clear Hallucinations: None Delusions: Not Present Thought Process: Distracted and Slowed Thinking Thought Content: positive for [place] and positive for Poverty of Content Judgement: Fair Diagnostics Vital Signs (24Hr): Vital Signs - 24 hr 12/19/23 18:00 12/19/23 21:05 12/19/23 22:00 Temperature 98.4 F 97.8 F Pulse Rate 63 59 62 Respiratory Rate 16 16 16 Blood Pressure 135/64 107/50 L 110/52 L Pulse Oximetry 100 95 95 Oxygen Delivery Method Room Air Room Air 12/20/23 08:44 Temperature 97.5 F Pulse Rate 62 Respiratory Rate 16 Blood Pressure 115/60 Pulse Oximetry 96 Oxygen Delivery Method Room Air BMI result Body Mass Index 27.3 Labs 11/13/23 08:28 11/13/23 08:28 Labs: Laboratory Results - last 48 hr 12/18/23 12/19/23 12/19/23 19:55 06:03 19:34 POC Glucose 159 H 139 H 164 H 12/20/23 06:20 POC Glucose 141 H Imaging Radiology Impressions: ITS Impressions Brain MRI 04/03/23 15:30 IMPRESSION: No acute infarct, mass lesion, intracranial hemorrhage, or evidence of hydrocephalus. Mild nonspecific T2/FLAIR hyperintensity in the cerebral white matter and danny presumably on the basis of chronic microangiopathy. Cervical Spine CT 07/03/23 20:12 IMPRESSION: No acute findings within the cervical spine. The cervical central canal is not well assessed on this CT due to artifact. If weakness persists, a cervical spine MRI would be more sensitive in assessment. Medications Medications Current Medications Acetaminophen (Acetaminophen 325 Mg Tablet) 650 mg PO Q6H PRN PRN Reason: Pain, Mild (Pain Scale 1-3) Last Admin: 12/17/23 22:20 Dose: 650 mg Amphetamine/Dextroamphetamine (Amphetamine Mixed Salts 10 Mg Tablet) 5 mg PO BID@0800,1500 [facility] Bisacodyl (Bisacodyl 5 Mg Tablet.Dr) 10 mg PO DAILY PRN PRN Reason: Constipation Last Admin: 10/13/23 23:19 Dose: 10 mg Docusate Sodium (Docusate Sodium 100 Mg Capsule) 100 mg PO BID [facility] Last Admin: 12/20/23 08:46 Dose: 100 mg Guaifenesin (Guaifenesin La 600 Mg Tab.Er.12h) 600 mg PO BID PRN PRN Reason: Cough Last Admin: 11/02/23 21:54 Dose: 600 mg Haloperidol (Haloperidol 1 Mg Tablet) 1 mg PO Q4H PRN PRN Reason: Hallucinations Last Admin: 12/11/23 20:07 Dose: 1 mg Haloperidol (Haloperidol 1 Mg Tablet) 1 mg PO BID@0830,1630 [facility] Last Admin: 12/20/23 08:46 Dose: 1 mg Insulin Glargine (Insulin Glargine,Hum.Rec.Anlog 100 Unit/Ml 10 Ml Vial) 6 unit SUBCUT DAILY [facility] Last Admin: 12/20/23 08:46 Dose: 6 unit Magnesium Oxide (Magnesium Oxide 400 Mg Tablet) 400 mg PO BIDPC [facility] Last Admin: 12/20/23 08:46 Dose: 400 mg Melatonin (Melatonin 3 Mg Tablet) 6 mg PO BEDTIME [facility] Last Admin: 12/19/23 19:53 Dose: 6 mg Memantine (Memantine Hcl 10 Mg Tablet) 10 mg PO BID [facility] Last Admin: 12/20/23 08:46 Dose: 10 mg Polyethylene Glycol (Polyethylene Glycol 3350 17 Gm Powd.Pack) 17 gm PO DAILY [facility] Last Admin: 12/20/23 08:47 Dose: 17 gm Senna (Sennosides 8.6 Mg Tablet) 17.2 mg PO BEDTIME [facility] Last Admin: 12/19/23 19:53 Dose: 17.2 mg Sertraline HCl (Sertraline Hcl 50 Mg Tablet) 150 mg PO DAILY [facility] Last Admin: 12/20/23 08:46 Dose: 150 mg Trazodone HCl (Trazodone Hcl 50 Mg Tablet) 50 mg PO BEDTIME MRX1 PRN PRN Reason: Sleep Last Admin: 12/18/23 20:04 Dose: 50 mg Allergies Allergies Allergy/AdvReac Type Severity Reaction Status Date / Time No Known Allergies Allergy Verified 03/23/23 18:13 Assessment & Plan Assessment & Plan (1) Alzheimer's dementia: Status: Acute Code(s): G30.9 - Alzheimer's disease, unspecified; F02.80 - Dementia in other diseases classified elsewhere, unspecified severity, without behavioral disturbance, psychotic disturbance, mood disturbance, and anxiety Assessment and Plan: August 24 58 years old woman with relative young age onset at Alzheimer dementia but overall clinical picture is affected by significant depression, which continues to be the predominant feature of for clinical picture. Conventional dementia medicines such as donepezil or memantine can be tried but usually do not make significant difference. I would suggest memantine 10 mg twice a day and donepezil 10 mg daily. Recently a new dementia at drug for Alzheimer was approved but only for relatively mild dementia or mild cognitive impairment type of patients. She would not qualify for that drug. 10/18 Patient sitting in chair in the day room, head leaning over to 1 side, resting. When asked how she is doing she says that she has diabetes and that she takes meds for that. 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 Staff reports no changes in behavior but seems to have more frequent lucid moments. 10/27 continue tx. hold adderall due to increase irritability now that she is covid positive. 10/29: symptomatic of COVID - URI Sx. VSS. no change in mental health presentation. continue current mgmt. 10/30: continues laid low by COVID. psych presentation essentially unchanged. continue current mgmt, monitor VS. 10/31 continue tx. 11/05 CTP no change 11/06/23 - CTP 11/11/2023: No changes 11/12/2023: No changes to current plan 12/08 continue tx. 12/08: no changes 12/09: no changes 12/11 continue tx. 12/16/23 Continue tx. 12/17/23 Continue tx. Plan 1. Continue with current treatment. 2. Waiting for placement. Plan Plan continue with same treatment Reason for continued inpatient stay Substantial Risk for: inability to function, rapid decompensation and med/psych decompensation Time Spent With Patient Time: Total time managing care of this patient today __20__ minutes.
--- NOTE | 2023-12-20 15:05 | MHC.CLN ---
NUTRITION CONTINUES WITH USUALLY GOOD/EXCELLENT PO INTAKE. ENSURE MAX TID DISCONTINUED.
[2023-12-20 18:00] VITALS: BP 132/61; PULSE 63; RESP 18; TEMP 36.2; O2SAT 99
[2023-12-20 20:01] LABS: Glucose, Whole Blood 167 mg/dL (60-115)
[2023-12-20] MEDS: Sennosides 8.6 MG TABLET 17.2 MG PO (21:01)
[2023-12-20] MEDS: traZODone HCL 50 MG TABLET PO (21:01)
[2023-12-20] MEDS: Melatonin 3 MG TABLET 6 MG PO (21:01)
[2023-12-20] MEDS: Acetaminophen 325 MG TABLET 650 MG PO (21:02)
[2023-12-21 06:39] LABS: Glucose, Whole Blood 128 mg/dL (60-115)
[2023-12-21 07:00] VITALS: BMI 27.9
[2023-12-21 07:46] VITALS: BP 158/72; PULSE 62; RESP 16; TEMP 36.6; O2SAT 95
[2023-12-21] MEDS: Sertraline HCL 50 MG TABLET 150 MG PO (08:47)
[2023-12-21] MEDS: HaloperidoL 1 MG TABLET PO ×3 (08:47→23:43)
[2023-12-21] MEDS: Magnesium Oxide 400 MG TABLET PO ×2 (08:47→16:55)
[2023-12-21] MEDS: Memantine HCl 10 MG TABLET PO ×2 (08:47→20:55)
[2023-12-21] MEDS: Docusate Sodium 100 MG CAPSULE PO ×2 (08:47→20:55)
[2023-12-21] MEDS: polyethylene glycoL 3350 17 GM POWD.PACK PO (08:48)
[2023-12-21] MEDS: Insulin Glargine,Hum.rec.anlog 100 UNIT/ML 10 ML VIAL 6 UNIT SUBCUT (08:48)
--- NOTE | 2023-12-21 13:09 | HO.PSYCHPN ---
Subjective Subjective Date of Service: 12/21/23 Reason For Visit: hallucinations confusion Subjective Notes: Conditional Voluntary Interim History: The nursing staff reported the patient had been compliant, confused at times but easily redirectable. On interview the patient denies new symptoms, waiting for placement I explained her that we are waiting for financial clearance. Mental Status Exam Mental Status Exam Patient Appearance: Appropriate Patient Orientation: Person and Situation Level of Consciousness: Awake Patient Behavior: Guarded and Passive Mood Description: Withdrawn Affect Description: Constricted Patient Cognition Impaired: Yes Ability to Follow Directions: Good Speech Pattern: Clear Hallucinations: None Delusions: Not Present Thought Process: Distracted and Slowed Thinking Thought Content: positive for Poverty of Content Judgement: Fair Diagnostics Vital Signs (24Hr): Vital Signs - 24 hr 12/20/23 18:00 12/21/23 07:46 Temperature 97.1 F 97.9 F Pulse Rate 63 62 Respiratory Rate 18 16 Blood Pressure 132/61 158/72 H Pulse Oximetry 99 95 Oxygen Delivery Method Room Air Room Air BMI result Body Mass Index 27.3 Labs 11/13/23 08:28 11/13/23 08:28 Labs: Laboratory Results - last 48 hr 12/19/23 12/20/23 12/20/23 19:34 06:20 19:56 POC Glucose 164 H 141 H 167 H 12/21/23 06:34 POC Glucose 128 H Imaging Radiology Impressions: ITS Impressions Brain MRI 04/03/23 15:30 IMPRESSION: No acute infarct, mass lesion, intracranial hemorrhage, or evidence of hydrocephalus. Mild nonspecific T2/FLAIR hyperintensity in the cerebral white matter and danny presumably on the basis of chronic microangiopathy. Cervical Spine CT 07/03/23 20:12 IMPRESSION: No acute findings within the cervical spine. The cervical central canal is not well assessed on this CT due to artifact. If weakness persists, a cervical spine MRI would be more sensitive in assessment. Medications Medications Current Medications Acetaminophen (Acetaminophen 325 Mg Tablet) 650 mg PO Q6H PRN PRN Reason: Pain, Mild (Pain Scale 1-3) Last Admin: 12/20/23 21:02 Dose: 650 mg Amphetamine/Dextroamphetamine (Amphetamine Mixed Salts 10 Mg Tablet) 5 mg PO BID@0800,1500 [facility] Bisacodyl (Bisacodyl 5 Mg Tablet.Dr) 10 mg PO DAILY PRN PRN Reason: Constipation Last Admin: 10/13/23 23:19 Dose: 10 mg Docusate Sodium (Docusate Sodium 100 Mg Capsule) 100 mg PO BID [facility] Last Admin: 12/21/23 08:47 Dose: 100 mg Guaifenesin (Guaifenesin La 600 Mg Tab.Er.12h) 600 mg PO BID PRN PRN Reason: Cough Last Admin: 11/02/23 21:54 Dose: 600 mg Haloperidol (Haloperidol 1 Mg Tablet) 1 mg PO Q4H PRN PRN Reason: Hallucinations Last Admin: 12/11/23 20:07 Dose: 1 mg Haloperidol (Haloperidol 1 Mg Tablet) 1 mg PO BID@0830,1630 [facility] Last Admin: 12/21/23 08:47 Dose: 1 mg Insulin Glargine (Insulin Glargine,Hum.Rec.Anlog 100 Unit/Ml 10 Ml Vial) 6 unit SUBCUT DAILY [facility] Last Admin: 12/21/23 08:48 Dose: 6 unit Magnesium Oxide (Magnesium Oxide 400 Mg Tablet) 400 mg PO BIDPC [facility] Last Admin: 12/21/23 08:47 Dose: 400 mg Melatonin (Melatonin 3 Mg Tablet) 6 mg PO BEDTIME [facility] Last Admin: 12/20/23 21:01 Dose: 6 mg Memantine (Memantine Hcl 10 Mg Tablet) 10 mg PO BID [facility] Last Admin: 12/21/23 08:47 Dose: 10 mg Polyethylene Glycol (Polyethylene Glycol 3350 17 Gm Powd.Pack) 17 gm PO DAILY [facility] Last Admin: 12/21/23 08:48 Dose: 17 gm Senna (Sennosides 8.6 Mg Tablet) 17.2 mg PO BEDTIME [facility] Last Admin: 12/20/23 21:01 Dose: 17.2 mg Sertraline HCl (Sertraline Hcl 50 Mg Tablet) 150 mg PO DAILY [facility] Last Admin: 12/21/23 08:47 Dose: 150 mg Trazodone HCl (Trazodone Hcl 50 Mg Tablet) 50 mg PO BEDTIME MRX1 PRN PRN Reason: Sleep Last Admin: 12/20/23 21:01 Dose: 50 mg Allergies Allergies Allergy/AdvReac Type Severity Reaction Status Date / Time No Known Allergies Allergy Verified 03/23/23 18:13 Assessment & Plan Assessment & Plan (1) Alzheimer's dementia: Status: Acute Code(s): G30.9 - Alzheimer's disease, unspecified; F02.80 - Dementia in other diseases classified elsewhere, unspecified severity, without behavioral disturbance, psychotic disturbance, mood disturbance, and anxiety Assessment and Plan: August 24 58 years old woman with relative young age onset at Alzheimer dementia but overall clinical picture is affected by significant depression, which continues to be the predominant feature of for clinical picture. Conventional dementia medicines such as donepezil or memantine can be tried but usually do not make significant difference. I would suggest memantine 10 mg twice a day and donepezil 10 mg daily. Recently a new dementia at drug for Alzheimer was approved but only for relatively mild dementia or mild cognitive impairment type of patients. She would not qualify for that drug. 10/18 Patient sitting in chair in the day room, head leaning over to 1 side, resting. When asked how she is doing she says that she has diabetes and that she takes meds for that. 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 Staff reports no changes in behavior but seems to have more frequent lucid moments. 10/27 continue tx. hold adderall due to increase irritability now that she is covid positive. 10/29: symptomatic of COVID - URI Sx. VSS. no change in mental health presentation. continue current mgmt. 10/30: continues laid low by COVID. psych presentation essentially unchanged. continue current mgmt, monitor VS. 10/31 continue tx. 11/05 CTP no change 11/06/23 - CTP 11/11/2023: No changes 11/12/2023: No changes to current plan 12/08 continue tx. 12/08: no changes 12/09: no changes 12/11 continue tx. 12/16/23 Continue tx. 12/17/23 Continue tx. Plan 1. Continue with current treatment. 2. Waiting for placement. Plan Plan continue with same treatment Reason for continued inpatient stay Substantial Risk for: inability to function, rapid decompensation and med/psych decompensation Time Spent With Patient Time: Total time managing care of this patient today _20___ minutes.
[2023-12-21 18:00] VITALS: BP 134/63; PULSE 65; RESP 18; TEMP 36.4; O2SAT 98
[2023-12-21 20:16] LABS: Glucose, Whole Blood 175 mg/dL (60-115)
[2023-12-21] MEDS: Melatonin 3 MG TABLET 6 MG PO (20:55)
[2023-12-21] MEDS: Sennosides 8.6 MG TABLET 17.2 MG PO (20:55)
[2023-12-21] MEDS: traZODone HCL 50 MG TABLET PO ×2 (20:55→23:43)
[2023-12-22 06:38] LABS: Glucose, Whole Blood 145 mg/dL (60-115)
[2023-12-22] MEDS: Sertraline HCL 50 MG TABLET 150 MG PO (08:09)
[2023-12-22] MEDS: Docusate Sodium 100 MG CAPSULE PO ×2 (08:09→20:24)
[2023-12-22] MEDS: Magnesium Oxide 400 MG TABLET PO ×2 (08:10→16:49)
[2023-12-22] MEDS: Memantine HCl 10 MG TABLET PO ×2 (08:10→20:24)
[2023-12-22] MEDS: HaloperidoL 1 MG TABLET PO ×2 (08:10→16:49)
[2023-12-22] MEDS: polyethylene glycoL 3350 17 GM POWD.PACK PO (08:10)
[2023-12-22] MEDS: Insulin Glargine,Hum.rec.anlog 100 UNIT/ML 10 ML VIAL 6 UNIT SUBCUT (08:12)
[2023-12-22 09:11] VITALS: BP 113/57; PULSE 63; RESP 20; TEMP 36.1; O2SAT 98
--- NOTE | 2023-12-22 12:38 | HO.PSYCHPN ---
Subjective Subjective Date of Service: 12/22/23 Reason For Visit: hallucinations confusion Subjective Notes: Conditional Voluntary Interim History: The nursing staff reported no changes, the staff has noticed that she looks more awake and alert much better. She slept 7 hours. On interview the patient denies new symptoms, waiting for placement. Mental Status Exam Mental Status Exam Patient Appearance: Appropriate Patient Orientation: Person Level of Consciousness: Awake Patient Behavior: Appropriate and Passive Mood Description: Calm Affect Description: Constricted Patient Cognition Impaired: Yes Ability to Follow Directions: Good Speech Pattern: Clear Hallucinations: None Delusions: Not Present Thought Process: Distracted and Slowed Thinking Thought Content: positive for [place] and positive for Poverty of Content Judgement: Poor Diagnostics Vital Signs (24Hr): Vital Signs - 24 hr 12/21/23 18:00 12/22/23 09:11 Temperature 97.5 F 97.0 F Pulse Rate 65 63 Respiratory Rate 18 20 Blood Pressure 134/63 113/57 L Pulse Oximetry 98 98 Oxygen Delivery Method Room Air Room Air BMI result Body Mass Index 27.9 Labs 11/13/23 08:28 11/13/23 08:28 Labs: Laboratory Results - last 48 hr 12/20/23 12/21/23 12/21/23 19:56 06:34 19:48 POC Glucose 167 H 128 H 175 H 12/22/23 06:33 POC Glucose 145 H Imaging Radiology Impressions: ITS Impressions Brain MRI 04/03/23 15:30 IMPRESSION: No acute infarct, mass lesion, intracranial hemorrhage, or evidence of hydrocephalus. Mild nonspecific T2/FLAIR hyperintensity in the cerebral white matter and danny presumably on the basis of chronic microangiopathy. Cervical Spine CT 07/03/23 20:12 IMPRESSION: No acute findings within the cervical spine. The cervical central canal is not well assessed on this CT due to artifact. If weakness persists, a cervical spine MRI would be more sensitive in assessment. Medications Medications Current Medications Acetaminophen (Acetaminophen 325 Mg Tablet) 650 mg PO Q6H PRN PRN Reason: Pain, Mild (Pain Scale 1-3) Last Admin: 12/20/23 21:02 Dose: 650 mg Amphetamine/Dextroamphetamine (Amphetamine Mixed Salts 10 Mg Tablet) 5 mg PO BID@0800,1500 BEN Bisacodyl (Bisacodyl 5 Mg Tablet.Dr) 10 mg PO DAILY PRN PRN Reason: Constipation Last Admin: 10/13/23 23:19 Dose: 10 mg Docusate Sodium (Docusate Sodium 100 Mg Capsule) 100 mg PO BID [facility] Last Admin: 12/22/23 08:09 Dose: 100 mg Guaifenesin (Guaifenesin La 600 Mg Tab.Er.12h) 600 mg PO BID PRN PRN Reason: Cough Last Admin: 11/02/23 21:54 Dose: 600 mg Haloperidol (Haloperidol 1 Mg Tablet) 1 mg PO Q4H PRN PRN Reason: Hallucinations Last Admin: 12/21/23 23:43 Dose: 1 mg Haloperidol (Haloperidol 1 Mg Tablet) 1 mg PO BID@0830,1630 [facility] Last Admin: 12/22/23 08:10 Dose: 1 mg Insulin Glargine (Insulin Glargine,Hum.Rec.Anlog 100 Unit/Ml 10 Ml Vial) 6 unit SUBCUT DAILY [facility] Last Admin: 12/22/23 08:12 Dose: 6 unit Magnesium Oxide (Magnesium Oxide 400 Mg Tablet) 400 mg PO BIDPC [facility] Last Admin: 12/22/23 08:10 Dose: 400 mg Melatonin (Melatonin 3 Mg Tablet) 6 mg PO BEDTIME [facility] Last Admin: 12/21/23 20:55 Dose: 6 mg Memantine (Memantine Hcl 10 Mg Tablet) 10 mg PO BID [facility] Last Admin: 12/22/23 08:10 Dose: 10 mg Polyethylene Glycol (Polyethylene Glycol 3350 17 Gm Powd.Pack) 17 gm PO DAILY [facility] Last Admin: 12/22/23 08:10 Dose: 17 gm Senna (Sennosides 8.6 Mg Tablet) 17.2 mg PO BEDTIME [facility] Last Admin: 12/21/23 20:55 Dose: 17.2 mg Sertraline HCl (Sertraline Hcl 50 Mg Tablet) 150 mg PO DAILY [facility] Last Admin: 12/22/23 08:09 Dose: 150 mg Trazodone HCl (Trazodone Hcl 50 Mg Tablet) 50 mg PO BEDTIME MRX1 PRN PRN Reason: Sleep Last Admin: 12/21/23 23:43 Dose: 50 mg Allergies Allergies Allergy/AdvReac Type Severity Reaction Status Date / Time No Known Allergies Allergy Verified 03/23/23 18:13 Assessment & Plan Assessment & Plan (1) Alzheimer's dementia: Status: Acute Code(s): G30.9 - Alzheimer's disease, unspecified; F02.80 - Dementia in other diseases classified elsewhere, unspecified severity, without behavioral disturbance, psychotic disturbance, mood disturbance, and anxiety Assessment and Plan: August [birth year] 58 years old woman with relative young age onset at Alzheimer dementia but overall clinical picture is affected by significant depression, which continues to be the predominant feature of for clinical picture. Conventional dementia medicines such as donepezil or memantine can be tried but usually do not make significant difference. I would suggest memantine 10 mg twice a day and donepezil 10 mg daily. Recently a new dementia at drug for Alzheimer was approved but only for relatively mild dementia or mild cognitive impairment type of patients. She would not qualify for that drug. 10/18 Patient sitting in chair in the day room, head leaning over to 1 side, resting. When asked how she is doing she says that she has diabetes and that she takes meds for that. She asks if medical underwriter will be down here again. Staff reports no changes in behavior but seems to have more frequent lucid moments. 10/27 continue tx. hold adderall due to increase irritability now that she is covid positive. 10/29: symptomatic of COVID - URI Sx. VSS. no change in mental health presentation. continue current mgmt. 10/30: continues laid low by COVID. psych presentation essentially unchanged. continue current mgmt, monitor VS. 10/31 continue tx. 11/05 CTP no change 11/06/23 - CTP 11/11/2023: No changes 11/12/2023: No changes to current plan 12/08 continue tx. 12/08: no changes 12/09: no changes 12/11 continue tx. 12/16/23 Continue tx. 12/17/23 Continue tx. Plan 1. Continue with current treatment. 2. Waiting for placement. Plan Plan continue with same treatment Reason for continued inpatient stay Substantial Risk for: inability to function, rapid decompensation and med/psych decompensation Time Spent With Patient Time: Total time managing care of this patient today __20__ minutes.
[2023-12-22 20:15] VITALS: BP 122/58; PULSE 68; RESP 16; TEMP 36.4; O2SAT 98
[2023-12-22] MEDS: Melatonin 3 MG TABLET 6 MG PO (20:24)
[2023-12-22] MEDS: Sennosides 8.6 MG TABLET 17.2 MG PO (20:24)
[2023-12-22 21:24] LABS: Glucose, Whole Blood 212 mg/dL (60-115)
[2023-12-23 06:30] LABS: Glucose, Whole Blood 139 mg/dL (60-115)
[2023-12-23 08:30] VITALS: BP 110/61; PULSE 60; RESP 17; TEMP 36.4; O2SAT 96
[2023-12-23] MEDS: Sertraline HCL 50 MG TABLET 150 MG PO (09:26)
[2023-12-23] MEDS: Insulin Glargine,Hum.rec.anlog 100 UNIT/ML 10 ML VIAL 6 UNIT SUBCUT (09:27)
[2023-12-23] MEDS: Magnesium Oxide 400 MG TABLET PO ×2 (09:27→16:43)
[2023-12-23] MEDS: Docusate Sodium 100 MG CAPSULE PO ×2 (09:27→20:37)
[2023-12-23] MEDS: HaloperidoL 1 MG TABLET PO ×3 (09:27→22:27)
[2023-12-23] MEDS: Memantine HCl 10 MG TABLET PO ×2 (09:27→20:37)
[2023-12-23] MEDS: polyethylene glycoL 3350 17 GM POWD.PACK PO (09:29)
--- NOTE | 2023-12-23 11:36 | HO.PSYCHPN ---
Subjective Subjective Date of Service: 12/23/23 Reason For Visit: hallucinations confusion Subjective Notes: Conditional Voluntary Interim History: Patient was seen and discussed in rounds today. Records and plans were reviewed. She continues to be in an improved state. She is more verbal and animated. She is medication compliant. No anxiety. She did have a bowel movement. No changes were made today Mental Status Exam Mental Status Exam Patient Appearance: Appropriate Patient Orientation: Person Level of Consciousness: Awake Patient Behavior: Appropriate and Passive Mood Description: Calm Affect Description: Constricted Patient Cognition Impaired: Yes Ability to Follow Directions: Good Speech Pattern: Clear Hallucinations: None Delusions: Not Present Thought Process: Distracted and Slowed Thinking Thought Content: positive for [place] and positive for Poverty of Content Judgement: Poor Diagnostics Vital Signs (24Hr): Vital Signs - 24 hr 12/22/23 20:15 Temperature 97.6 F Pulse Rate 68 Respiratory Rate 16 Blood Pressure 122/58 L Pulse Oximetry 98 Oxygen Delivery Method Room Air BMI result Body Mass Index 27.9 Labs 11/13/23 08:28 11/13/23 08:28 Labs: Laboratory Results - last 48 hr 12/21/23 12/22/23 12/22/23 19:48 06:33 20:22 POC Glucose 175 H 145 H 212 H 12/23/23 06:05 POC Glucose 139 H Imaging Radiology Impressions: ITS Impressions Brain MRI 04/03/23 15:30 IMPRESSION: No acute infarct, mass lesion, intracranial hemorrhage, or evidence of hydrocephalus. Mild nonspecific T2/FLAIR hyperintensity in the cerebral white matter and danny presumably on the basis of chronic microangiopathy. Cervical Spine CT 07/03/23 20:12 IMPRESSION: No acute findings within the cervical spine. The cervical central canal is not well assessed on this CT due to artifact. If weakness persists, a cervical spine MRI would be more sensitive in assessment. Medications Medications Current Medications Acetaminophen (Acetaminophen 325 Mg Tablet) 650 mg PO Q6H PRN PRN Reason: Pain, Mild (Pain Scale 1-3) Last Admin: 12/20/23 21:02 Dose: 650 mg Amphetamine/Dextroamphetamine (Amphetamine Mixed Salts 10 Mg Tablet) 5 mg PO BID@0800,1500 BEN Bisacodyl (Bisacodyl 5 Mg Tablet.Dr) 10 mg PO DAILY PRN PRN Reason: Constipation Last Admin: 10/13/23 23:19 Dose: 10 mg Docusate Sodium (Docusate Sodium 100 Mg Capsule) 100 mg PO BID [facility] Last Admin: 12/23/23 09:27 Dose: 100 mg Guaifenesin (Guaifenesin La 600 Mg Tab.Er.12h) 600 mg PO BID PRN PRN Reason: Cough Last Admin: 11/02/23 21:54 Dose: 600 mg Haloperidol (Haloperidol 1 Mg Tablet) 1 mg PO Q4H PRN PRN Reason: Hallucinations Last Admin: 12/21/23 23:43 Dose: 1 mg Haloperidol (Haloperidol 1 Mg Tablet) 1 mg PO BID@0830,1630 [facility] Last Admin: 12/23/23 09:27 Dose: 1 mg Insulin Glargine (Insulin Glargine,Hum.Rec.Anlog 100 Unit/Ml 10 Ml Vial) 6 unit SUBCUT DAILY [facility] Last Admin: 12/23/23 09:27 Dose: 6 unit Magnesium Oxide (Magnesium Oxide 400 Mg Tablet) 400 mg PO BIDPC [facility] Last Admin: 12/23/23 09:27 Dose: 400 mg Melatonin (Melatonin 3 Mg Tablet) 6 mg PO BEDTIME [facility] Last Admin: 12/22/23 20:24 Dose: 6 mg Memantine (Memantine Hcl 10 Mg Tablet) 10 mg PO BID [facility] Last Admin: 12/23/23 09:27 Dose: 10 mg Polyethylene Glycol (Polyethylene Glycol 3350 17 Gm Powd.Pack) 17 gm PO DAILY [facility] Last Admin: 12/23/23 09:29 Dose: 17 gm Senna (Sennosides 8.6 Mg Tablet) 17.2 mg PO BEDTIME [facility] Last Admin: 12/22/23 20:24 Dose: 17.2 mg Sertraline HCl (Sertraline Hcl 50 Mg Tablet) 150 mg PO DAILY [facility] Last Admin: 12/23/23 09:26 Dose: 150 mg Trazodone HCl (Trazodone Hcl 50 Mg Tablet) 50 mg PO BEDTIME MRX1 PRN PRN Reason: Sleep Last Admin: 12/21/23 23:43 Dose: 50 mg Allergies Allergies Allergy/AdvReac Type Severity Reaction Status Date / Time No Known Allergies Allergy Verified 03/23/23 18:13 Assessment & Plan Assessment & Plan (1) Alzheimer's dementia: Status: Acute Code(s): G30.9 - Alzheimer's disease, unspecified; F02.80 - Dementia in other diseases classified elsewhere, unspecified severity, without behavioral disturbance, psychotic disturbance, mood disturbance, and anxiety Assessment and Plan: August 24 58 years old woman with relative young age onset at Alzheimer dementia but overall clinical picture is affected by significant depression, which continues to be the predominant feature of for clinical picture. Conventional dementia medicines such as donepezil or memantine can be tried but usually do not make significant difference. I would suggest memantine 10 mg twice a day and donepezil 10 mg daily. Recently a new dementia at drug for Alzheimer was approved but only for relatively mild dementia or mild cognitive impairment type of patients. She would not qualify for that drug. 10/18 Patient sitting in chair in the day room, head leaning over to 1 side, resting. When asked how she is doing she says that she has diabetes and that she takes meds for that. 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 Staff reports no changes in behavior but seems to have more frequent lucid moments. 10/27 continue tx. hold adderall due to increase irritability now that she is covid positive. 10/29: symptomatic of COVID - URI Sx. VSS. no change in mental health presentation. continue current mgmt. 10/30: continues laid low by COVID. psych presentation essentially unchanged. continue current mgmt, monitor VS. 10/31 continue tx. 11/05 CTP no change 11/06/23 - CTP 11/11/2023: No changes 11/12/2023: No changes to current plan 12/08 continue tx. 12/08: no changes 12/09: no changes 12/11 continue tx. 12/16/23 Continue tx. 12/17/23 Continue tx. 12/23: Continue current regimen and plans Plan 1. Continue with current treatment. 2. Waiting for placement. Plan Plan continue with same treatment Reason for continued inpatient stay Substantial Risk for: med/psych decompensation Time Spent With Patient Time: Total time managing care of this patient today ____ minutes.
[2023-12-23 19:55] VITALS: BP 132/72; PULSE 65; RESP 16; TEMP 36.3; O2SAT 99
[2023-12-23 19:58] LABS: Glucose, Whole Blood 162 mg/dL (60-115)
[2023-12-23] MEDS: Sennosides 8.6 MG TABLET 17.2 MG PO (20:37)
[2023-12-23] MEDS: Melatonin 3 MG TABLET 6 MG PO (20:37)
[2023-12-23] MEDS: traZODone HCL 50 MG TABLET PO (22:27)
[2023-12-24 06:43] LABS: Glucose, Whole Blood 140 mg/dL (60-115)
[2023-12-24 07:30] VITALS: BP 120/78; PULSE 66; RESP 18; TEMP 36.4; O2SAT 98
[2023-12-24] MEDS: Insulin Glargine,Hum.rec.anlog 100 UNIT/ML 10 ML VIAL 6 UNIT SUBCUT (08:55)
[2023-12-24] MEDS: Memantine HCl 10 MG TABLET PO ×2 (08:56→19:32)
[2023-12-24] MEDS: Sertraline HCL 50 MG TABLET 150 MG PO (08:56)
[2023-12-24] MEDS: polyethylene glycoL 3350 17 GM POWD.PACK PO (08:56)
[2023-12-24] MEDS: HaloperidoL 1 MG TABLET PO ×3 (08:56→19:32)
[2023-12-24] MEDS: Magnesium Oxide 400 MG TABLET PO ×2 (08:56→16:39)
[2023-12-24] MEDS: Docusate Sodium 100 MG CAPSULE PO ×2 (08:56→19:32)
--- NOTE | 2023-12-24 10:29 | P.PNPSI_ITS ---
Subjective Subjective Date of Service: 12/24/23 Reason For Visit: hallucinations confusion Subjective Notes: Conditional Voluntary Interim History: Patient was seen and discussed in rounds today. Records and plans were reviewed. She has been stable and is improved. No complaints or side effects. Eating and sleeping adequately. No changes were made today. Blood sugars within range. Review of Systems Review of Systems Yes all other systems are reviewed and are negative Mental Status Exam Mental Status Exam Patient Appearance: Appropriate Patient Orientation: Person Level of Consciousness: Awake Patient Behavior: Appropriate and Passive Mood Description: Calm Affect Description: Constricted Patient Cognition Impaired: Yes Ability to Follow Directions: Good Speech Pattern: Clear Hallucinations: None Delusions: Not Present Thought Process: Distracted and Slowed Thinking Thought Content: positive for [place] and positive for Poverty of Content Judgement: Poor Diagnostics Vital Signs (24Hr): Vital Signs - 24 hr 12/23/23 19:55 Temperature 97.4 F Pulse Rate 65 Respiratory Rate 16 Blood Pressure 132/72 Pulse Oximetry 99 Oxygen Delivery Method Room Air BMI result Body Mass Index 27.9 Labs 11/13/23 08:28 11/13/23 08:28 Labs: Laboratory Results - last 48 hr 12/22/23 12/23/23 12/23/23 20:22 06:05 19:43 POC Glucose 212 H 139 H 162 H 12/24/23 06:34 POC Glucose 140 H Imaging Radiology Impressions: ITS Impressions Brain MRI 04/03/23 15:30 IMPRESSION: No acute infarct, mass lesion, intracranial hemorrhage, or evidence of hydrocephalus. Mild nonspecific T2/FLAIR hyperintensity in the cerebral white matter and danny presumably on the basis of chronic microangiopathy. Cervical Spine CT 07/03/23 20:12 IMPRESSION: No acute findings within the cervical spine. The cervical central canal is not well assessed on this CT due to artifact. If weakness persists, a cervical spine MRI would be more sensitive in assessment. Medications Medications Current Medications Acetaminophen (Acetaminophen 325 Mg Tablet) 650 mg PO Q6H PRN PRN Reason: Pain, Mild (Pain Scale 1-3) Last Admin: 12/20/23 21:02 Dose: 650 mg Amphetamine/Dextroamphetamine (Amphetamine Mixed Salts 10 Mg Tablet) 5 mg PO BID@0800,1500 BEN Bisacodyl (Bisacodyl 5 Mg Tablet.Dr) 10 mg PO DAILY PRN PRN Reason: Constipation Last Admin: 10/13/23 23:19 Dose: 10 mg Docusate Sodium (Docusate Sodium 100 Mg Capsule) 100 mg PO BID [facility] Last Admin: 12/24/23 08:56 Dose: 100 mg Guaifenesin (Guaifenesin La 600 Mg Tab.Er.12h) 600 mg PO BID PRN PRN Reason: Cough Last Admin: 11/02/23 21:54 Dose: 600 mg Haloperidol (Haloperidol 1 Mg Tablet) 1 mg PO Q4H PRN PRN Reason: Hallucinations Last Admin: 12/23/23 22:27 Dose: 1 mg Haloperidol (Haloperidol 1 Mg Tablet) 1 mg PO BID@0830,1630 [facility] Last Admin: 12/24/23 08:56 Dose: 1 mg Insulin Glargine (Insulin Glargine,Hum.Rec.Anlog 100 Unit/Ml 10 Ml Vial) 6 unit SUBCUT DAILY [facility] Last Admin: 12/24/23 08:55 Dose: 6 unit Magnesium Oxide (Magnesium Oxide 400 Mg Tablet) 400 mg PO BIDPC [facility] Last Admin: 12/24/23 08:56 Dose: 400 mg Melatonin (Melatonin 3 Mg Tablet) 6 mg PO BEDTIME [facility] Last Admin: 12/23/23 20:37 Dose: 6 mg Memantine (Memantine Hcl 10 Mg Tablet) 10 mg PO BID [facility] Last Admin: 12/24/23 08:56 Dose: 10 mg Polyethylene Glycol (Polyethylene Glycol 3350 17 Gm Powd.Pack) 17 gm PO DAILY [facility] Last Admin: 12/24/23 08:56 Dose: 17 gm Senna (Sennosides 8.6 Mg Tablet) 17.2 mg PO BEDTIME [facility] Last Admin: 12/23/23 20:37 Dose: 17.2 mg Sertraline HCl (Sertraline Hcl 50 Mg Tablet) 150 mg PO DAILY [facility] Last Admin: 12/24/23 08:56 Dose: 150 mg Trazodone HCl (Trazodone Hcl 50 Mg Tablet) 50 mg PO BEDTIME MRX1 PRN PRN Reason: Sleep Last Admin: 12/23/23 22:27 Dose: 50 mg Allergies Allergies Allergy/AdvReac Type Severity Reaction Status Date / Time No Known Allergies Allergy Verified 03/23/23 18:13 Assessment & Plan Assessment & Plan (1) Alzheimer's dementia: Status: Acute Code(s): G30.9 - Alzheimer's disease, unspecified; F02.80 - Dementia in other diseases classified elsewhere, unspecified severity, without behavioral disturbance, psychotic disturbance, mood disturbance, and anxiety Assessment and Plan: August 24 58 years old woman with relative young age onset at Alzheimer dementia but overall clinical picture is affected by significant depression, which continues to be the predominant feature of for clinical picture. Conventional dementia medicines such as donepezil or memantine can be tried but usually do not make significant difference. I would suggest memantine 10 mg twice a day and donepezil 10 mg daily. Recently a new dementia at drug for Alzheimer was approved but only for relatively mild dementia or mild cognitive impairment type of patients. She would not qualify for that drug. 10/18 Patient sitting in chair in the day room, head leaning over to 1 side, resting. When asked how she is doing she says that she has diabetes and that she takes meds for that. 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 Staff reports no changes in behavior but seems to have more frequent lucid moments. 10/27 continue tx. hold adderall due to increase irritability now that she is covid positive. 10/29: symptomatic of COVID - URI Sx. VSS. no change in mental health presentation. continue current mgmt. 10/30: continues laid low by COVID. psych presentation essentially unchanged. continue current mgmt, monitor VS. 10/31 continue tx. 11/05 CTP no change 11/06/23 - CTP 11/11/2023: No changes 11/12/2023: No changes to current plan 12/08 continue tx. 12/08: no changes 12/09: no changes 12/11 continue tx. 12/16/23 Continue tx. 12/17/23 Continue tx. 12/23: Continue current regimen and plans 12/24: Continue current regimen and plans Plan 1. Continue with current treatment. 2. Waiting for placement. Plan Plan continue with same treatment Reason for continued inpatient stay Substantial Risk for: med/psych decompensation Time Spent With Patient Time: Total time managing care of this patient today ____ minutes.
[2023-12-24 18:00] VITALS: BP 126/60; PULSE 70; RESP 18; TEMP 36.6; O2SAT 97
[2023-12-24 19:31] LABS: Glucose, Whole Blood 139 mg/dL (60-115)
[2023-12-24] MEDS: Sennosides 8.6 MG TABLET 17.2 MG PO (19:31)
[2023-12-24] MEDS: Melatonin 3 MG TABLET 6 MG PO (19:31)
[2023-12-24] MEDS: traZODone HCL 50 MG TABLET PO (19:32)
[2023-12-25 04:53] LABS: Glucose, Whole Blood 146 mg/dL (60-115)
[2023-12-25 08:00] VITALS: BP 132/61; PULSE 60; RESP 18; TEMP 36.7; O2SAT 96
[2023-12-25] MEDS: Sertraline HCL 50 MG TABLET 150 MG PO (08:16)
[2023-12-25] MEDS: Insulin Glargine,Hum.rec.anlog 100 UNIT/ML 10 ML VIAL 6 UNIT SUBCUT (08:16)
[2023-12-25] MEDS: Docusate Sodium 100 MG CAPSULE PO ×2 (08:17→21:18)
[2023-12-25] MEDS: Magnesium Oxide 400 MG TABLET PO ×2 (08:17→16:42)
[2023-12-25] MEDS: HaloperidoL 1 MG TABLET PO ×2 (08:17→16:43)
[2023-12-25] MEDS: Memantine HCl 10 MG TABLET PO ×2 (08:17→21:18)
[2023-12-25] MEDS: polyethylene glycoL 3350 17 GM POWD.PACK PO (08:20)
--- NOTE | 2023-12-25 14:56 | P.PNPSI_ITS ---
Subjective Subjective Date of Service: 12/25/23 Reason For Visit: hallucinations confusion Subjective Notes: Conditional Voluntary Interim History: Patient was seen and discussed in rounds today. Records and plans were reviewed. She continues to be stable, is more interactive, walking, coming out to the common spaces. No complaints or side effects. Eating and sleeping adequately. No behavioral issues. No changes were made Mental Status Exam Mental Status Exam Patient Appearance: Appropriate Patient Orientation: Person Level of Consciousness: Awake Patient Behavior: Appropriate and Passive Mood Description: Calm Affect Description: Constricted Patient Cognition Impaired: Yes Ability to Follow Directions: Good Speech Pattern: Clear Hallucinations: None Delusions: Not Present Thought Process: Distracted and Slowed Thinking Thought Content: positive for [place] and positive for Poverty of Content Judgement: Poor Diagnostics Vital Signs (24Hr): Vital Signs - 24 hr 12/24/23 18:00 12/25/23 08:00 Temperature 97.9 F 98.1 F Pulse Rate 70 60 Respiratory Rate 18 18 Blood Pressure 126/60 132/61 Pulse Oximetry 97 96 Oxygen Delivery Method Room Air Room Air BMI result Body Mass Index 27.9 Labs 11/13/23 08:28 11/13/23 08:28 Labs: Laboratory Results - last 48 hr 12/23/23 12/24/23 12/24/23 19:43 06:34 19:26 POC Glucose 162 H 140 H 139 H 12/25/23 04:49 POC Glucose 146 H Imaging Radiology Impressions: ITS Impressions Brain MRI 04/03/23 15:30 IMPRESSION: No acute infarct, mass lesion, intracranial hemorrhage, or evidence of hydrocephalus. Mild nonspecific T2/FLAIR hyperintensity in the cerebral white matter and danny presumably on the basis of chronic microangiopathy. Cervical Spine CT 07/03/23 20:12 IMPRESSION: No acute findings within the cervical spine. The cervical central canal is not well assessed on this CT due to artifact. If weakness persists, a cervical spine MRI would be more sensitive in assessment. Medications Medications Current Medications Acetaminophen (Acetaminophen 325 Mg Tablet) 650 mg PO Q6H PRN PRN Reason: Pain, Mild (Pain Scale 1-3) Last Admin: 12/20/23 21:02 Dose: 650 mg Amphetamine/Dextroamphetamine (Amphetamine Mixed Salts 10 Mg Tablet) 5 mg PO BID@0800,1500 B[facility] Bisacodyl (Bisacodyl 5 Mg Tablet.Dr) 10 mg PO DAILY PRN PRN Reason: Constipation Last Admin: 10/13/23 23:19 Dose: 10 mg Docusate Sodium (Docusate Sodium 100 Mg Capsule) 100 mg PO BID [facility] Last Admin: 12/25/23 08:17 Dose: 100 mg Guaifenesin (Guaifenesin La 600 Mg Tab.Er.12h) 600 mg PO BID PRN PRN Reason: Cough Last Admin: 11/02/23 21:54 Dose: 600 mg Haloperidol (Haloperidol 1 Mg Tablet) 1 mg PO Q4H PRN PRN Reason: Hallucinations Last Admin: 12/24/23 19:32 Dose: 1 mg Haloperidol (Haloperidol 1 Mg Tablet) 1 mg PO BID@0830,1630 [facility] Last Admin: 12/25/23 08:17 Dose: 1 mg Insulin Glargine (Insulin Glargine,Hum.Rec.Anlog 100 Unit/Ml 10 Ml Vial) 6 unit SUBCUT DAILY [facility] Last Admin: 12/25/23 08:16 Dose: 6 unit Magnesium Oxide (Magnesium Oxide 400 Mg Tablet) 400 mg PO BIDPC [facility] Last Admin: 12/25/23 08:17 Dose: 400 mg Melatonin (Melatonin 3 Mg Tablet) 6 mg PO BEDTIME [facility] Last Admin: 12/24/23 19:31 Dose: 6 mg Memantine (Memantine Hcl 10 Mg Tablet) 10 mg PO BID [facility] Last Admin: 12/25/23 08:17 Dose: 10 mg Polyethylene Glycol (Polyethylene Glycol 3350 17 Gm Powd.Pack) 17 gm PO DAILY [facility] Last Admin: 12/25/23 08:20 Dose: 17 gm Senna (Sennosides 8.6 Mg Tablet) 17.2 mg PO BEDTIME [facility] Last Admin: 12/24/23 19:31 Dose: 17.2 mg Sertraline HCl (Sertraline Hcl 50 Mg Tablet) 150 mg PO DAILY [facility] Last Admin: 12/25/23 08:16 Dose: 150 mg Trazodone HCl (Trazodone Hcl 50 Mg Tablet) 50 mg PO BEDTIME MRX1 PRN PRN Reason: Sleep Last Admin: 12/24/23 19:32 Dose: 50 mg Allergies Allergies Allergy/AdvReac Type Severity Reaction Status Date / Time No Known Allergies Allergy Verified 03/23/23 18:13 Assessment & Plan Assessment & Plan (1) Alzheimer's dementia: Status: Acute Code(s): G30.9 - Alzheimer's disease, unspecified; F02.80 - Dementia in other diseases classified elsewhere, unspecified severity, without behavioral disturbance, psychotic disturbance, mood disturbance, and anxiety Assessment and Plan: August [birth year] 58 years old woman with relative young age onset at Alzheimer dementia but overall clinical picture is affected by significant depression, which continues to be the predominant feature of for clinical picture. Conventional dementia medicines such as donepezil or memantine can be tried but usually do not make significant difference. I would suggest memantine 10 mg twice a day and donepezil 10 mg daily. Recently a new dementia at drug for Alzheimer was approved but only for relatively mild dementia or mild cognitive impairment type of patients. She would not qualify for that drug. 10/18 Patient sitting in chair in the day room, head leaning over to 1 side, resting. When asked how she is doing she says that she has diabetes and that she takes meds for that. 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 Staff reports no changes in behavior but seems to have more frequent lucid moments. 10/27 continue tx. hold adderall due to increase irritability now that she is covid positive. 10/29: symptomatic of COVID - URI Sx. VSS. no change in mental health presentation. continue current mgmt. 10/30: continues laid low by COVID. psych presentation essentially unchanged. continue current mgmt, monitor VS. 10/31 continue tx. 11/05 CTP no change 11/06/23 - CTP 11/11/2023: No changes 11/12/2023: No changes to current plan 12/08 continue tx. 12/08: no changes 12/09: no changes 12/11 continue tx. 12/16/23 Continue tx. 12/17/23 Continue tx. 12/23: Continue current regimen and plans 12/24: Continue current regimen and plans 12/25: Continue current plans and regimen Plan 1. Continue with current treatment. 2. Waiting for placement. Plan Plan continue with same treatment Reason for continued inpatient stay Substantial Risk for: med/psych decompensation Time Spent With Patient Time: Total time managing care of this patient today ____ minutes.
[2023-12-25 18:00] VITALS: BP 119/64; PULSE 64; RESP 18; TEMP 36.9; O2SAT 96
[2023-12-25] MEDS: Sennosides 8.6 MG TABLET 17.2 MG PO (21:18)
[2023-12-25] MEDS: traZODone HCL 50 MG TABLET PO (21:18)
[2023-12-25] MEDS: Melatonin 3 MG TABLET 6 MG PO (21:18)
[2023-12-26 00:08] LABS: Glucose, Whole Blood 181 mg/dL (60-115)
[2023-12-26 06:38] LABS: Glucose, Whole Blood 147 mg/dL (60-115)
[2023-12-26 08:45] VITALS: BP 119/60; PULSE 61; RESP 16; TEMP 36.6; O2SAT 95
[2023-12-26] MEDS: Magnesium Oxide 400 MG TABLET PO ×2 (08:48→16:46)
[2023-12-26] MEDS: Docusate Sodium 100 MG CAPSULE PO ×2 (08:49→20:32)
[2023-12-26] MEDS: Memantine HCl 10 MG TABLET PO ×2 (08:49→20:32)
[2023-12-26] MEDS: HaloperidoL 1 MG TABLET PO ×2 (08:49→16:46)
[2023-12-26] MEDS: Sertraline HCL 50 MG TABLET 150 MG PO (08:49)
[2023-12-26] MEDS: Insulin Glargine,Hum.rec.anlog 100 UNIT/ML 10 ML VIAL 6 UNIT SUBCUT (08:51)
[2023-12-26] MEDS: polyethylene glycoL 3350 17 GM POWD.PACK PO (11:59)
--- NOTE | 2023-12-26 13:34 | P.PNPSI_ITS ---
Subjective Subjective Date of Service: 12/26/23 Reason For Visit: hallucinations confusion Subjective Notes: Conditional Voluntary Interim History: The nursing staff reported no changes in her mental status she slept well 8 hours last night. On interview the patient remains pleasantly confused, waiting for placement. Mental Status Exam Mental Status Exam Patient Appearance: Well Grooomed and Appropriate Patient Orientation: Person and Situation Level of Consciousness: Awake and Appropriate Patient Behavior: Guarded and Passive Mood Description: Withdrawn Affect Description: Constricted Patient Cognition Impaired: Yes Ability to Follow Directions: Good Speech Pattern: Clear Hallucinations: None Delusions: Not Present Thought Process: Distracted and Slowed Thinking Thought Content: positive for [place] and positive for Poverty of Content Judgement: Poor Diagnostics Vital Signs (24Hr): Vital Signs - 24 hr 12/25/23 18:00 12/26/23 08:45 Temperature 98.5 F 97.9 F Pulse Rate 64 61 Respiratory Rate 18 16 Blood Pressure 119/64 119/60 Pulse Oximetry 96 95 Oxygen Delivery Method Room Air Room Air BMI result Body Mass Index 27.9 Labs 11/13/23 08:28 11/13/23 08:28 Labs: Laboratory Results - last 48 hr 12/24/23 12/25/23 12/25/23 19:26 04:49 20:06 POC Glucose 139 H 146 H 181 H 12/26/23 06:13 POC Glucose 147 H Imaging Radiology Impressions: ITS Impressions Brain MRI 04/03/23 15:30 IMPRESSION: No acute infarct, mass lesion, intracranial hemorrhage, or evidence of hydrocephalus. Mild nonspecific T2/FLAIR hyperintensity in the cerebral white matter and danny presumably on the basis of chronic microangiopathy. Cervical Spine CT 07/03/23 20:12 IMPRESSION: No acute findings within the cervical spine. The cervical central canal is not well assessed on this CT due to artifact. If weakness persists, a cervical spine MRI would be more sensitive in assessment. Medications Medications Current Medications Acetaminophen (Acetaminophen 325 Mg Tablet) 650 mg PO Q6H PRN PRN Reason: Pain, Mild (Pain Scale 1-3) Last Admin: 12/20/23 21:02 Dose: 650 mg Amphetamine/Dextroamphetamine (Amphetamine Mixed Salts 10 Mg Tablet) 5 mg PO BID@0800,1500 [facility] Bisacodyl (Bisacodyl 5 Mg Tablet.Dr) 10 mg PO DAILY PRN PRN Reason: Constipation Last Admin: 10/13/23 23:19 Dose: 10 mg Docusate Sodium (Docusate Sodium 100 Mg Capsule) 100 mg PO BID [facility] Last Admin: 12/26/23 08:49 Dose: 100 mg Guaifenesin (Guaifenesin La 600 Mg Tab.Er.12h) 600 mg PO BID PRN PRN Reason: Cough Last Admin: 11/02/23 21:54 Dose: 600 mg Haloperidol (Haloperidol 1 Mg Tablet) 1 mg PO Q4H PRN PRN Reason: Hallucinations Last Admin: 12/24/23 19:32 Dose: 1 mg Haloperidol (Haloperidol 1 Mg Tablet) 1 mg PO BID@0830,1630 [facility] Last Admin: 12/26/23 08:49 Dose: 1 mg Insulin Glargine (Insulin Glargine,Hum.Rec.Anlog 100 Unit/Ml 10 Ml Vial) 6 unit SUBCUT DAILY [facility] Last Admin: 12/26/23 08:51 Dose: 6 unit Magnesium Oxide (Magnesium Oxide 400 Mg Tablet) 400 mg PO BIDPC [facility] Last Admin: 12/26/23 08:48 Dose: 400 mg Melatonin (Melatonin 3 Mg Tablet) 6 mg PO BEDTIME [facility] Last Admin: 12/25/23 21:18 Dose: 6 mg Memantine (Memantine Hcl 10 Mg Tablet) 10 mg PO BID [facility] Last Admin: 12/26/23 08:49 Dose: 10 mg Polyethylene Glycol (Polyethylene Glycol 3350 17 Gm Powd.Pack) 17 gm PO DAILY [facility] Last Admin: 12/26/23 11:59 Dose: 17 gm Senna (Sennosides 8.6 Mg Tablet) 17.2 mg PO BEDTIME [facility] Last Admin: 12/25/23 21:18 Dose: 17.2 mg Sertraline HCl (Sertraline Hcl 50 Mg Tablet) 150 mg PO DAILY [facility] Last Admin: 12/26/23 08:49 Dose: 150 mg Trazodone HCl (Trazodone Hcl 50 Mg Tablet) 50 mg PO BEDTIME MRX1 PRN PRN Reason: Sleep Last Admin: 12/25/23 21:18 Dose: 50 mg Allergies Allergies Allergy/AdvReac Type Severity Reaction Status Date / Time No Known Allergies Allergy Verified 03/23/23 18:13 Assessment & Plan Assessment & Plan (1) Alzheimer's dementia: Status: Acute Code(s): G30.9 - Alzheimer's disease, unspecified; F02.80 - Dementia in other diseases classified elsewhere, unspecified severity, without behavioral disturbance, psychotic disturbance, mood disturbance, and anxiety Assessment and Plan: August 24 58 years old woman with relative young age onset at Alzheimer dementia but overall clinical picture is affected by significant depression, which continues to be the predominant feature of for clinical picture. Conventional dementia medicines such as donepezil or memantine can be tried but usually do not make significant difference. I would suggest memantine 10 mg twice a day and donepezil 10 mg daily. Recently a new dementia at drug for Alzheimer was approved but only for relatively mild dementia or mild cognitive impairment type of patients. She would not qualify for that drug. 10/18 Patient sitting in chair in the day room, head leaning over to 1 side, resting. When asked how she is doing she says that she has diabetes and that she takes meds for that. 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 Staff reports no changes in behavior but seems to have more frequent lucid moments. 10/27 continue tx. hold adderall due to increase irritability now that she is covid positive. 10/29: symptomatic of COVID - URI Sx. VSS. no change in mental health presentation. continue current mgmt. 10/30: continues laid low by COVID. psych presentation essentially unchanged. continue current mgmt, monitor VS. 10/31 continue tx. 11/05 CTP no change 11/06/23 - CTP 11/11/2023: No changes 11/12/2023: No changes to current plan 12/08 continue tx. 12/08: no changes 12/09: no changes 12/11 continue tx. 12/16/23 Continue tx. 12/17/23 Continue tx. 12/23: Continue current regimen and plans 12/24: Continue current regimen and plans 12/25: Continue current plans and regimen Plan 1. Continue with current treatment. 2. Waiting for placement. Plan Plan continue with same treatment Reason for continued inpatient stay Substantial Risk for: inability to function, rapid decompensation and med/psych decompensation Time Spent With Patient Time: Total time managing care of this patient today __20__ minutes.
[2023-12-26 18:00] VITALS: BP 115/56; PULSE 64; RESP 18; TEMP 36.1; O2SAT 96
[2023-12-26 20:06] LABS: Glucose, Whole Blood 193 mg/dL (60-115)
[2023-12-26] MEDS: Melatonin 3 MG TABLET 6 MG PO (20:32)
[2023-12-26] MEDS: Sennosides 8.6 MG TABLET 17.2 MG PO (20:32)
[2023-12-26] MEDS: Acetaminophen 325 MG TABLET 650 MG PO (22:05)
[2023-12-26] MEDS: traZODone HCL 50 MG TABLET PO (22:06)
[2023-12-27 06:34] LABS: Glucose, Whole Blood 143 mg/dL (60-115)
[2023-12-27 08:00] VITALS: BP 130/75; PULSE 67; RESP 18; TEMP 36.8; O2SAT 97
[2023-12-27] MEDS: Docusate Sodium 100 MG CAPSULE PO ×2 (08:51→20:09)
[2023-12-27] MEDS: Insulin Glargine,Hum.rec.anlog 100 UNIT/ML 10 ML VIAL 6 UNIT SUBCUT (08:51)
[2023-12-27] MEDS: Memantine HCl 10 MG TABLET PO ×2 (08:52→20:09)
[2023-12-27] MEDS: Sertraline HCL 50 MG TABLET 150 MG PO (08:52)
[2023-12-27] MEDS: HaloperidoL 1 MG TABLET PO ×2 (08:52→16:21)
[2023-12-27] MEDS: Magnesium Oxide 400 MG TABLET PO ×2 (08:52→16:21)
[2023-12-27] MEDS: polyethylene glycoL 3350 17 GM POWD.PACK PO (08:53)
--- NOTE | 2023-12-27 12:26 | HO.PSYCHPN ---
Subjective Subjective Date of Service: 12/27/23 Reason For Visit: hallucinations confusion Subjective Notes: Conditional Voluntary Interim History: The nursing staff reported the patient had been compliant with treatment, no changes in mental status. On interview remains pleasantly confused easily redirectable, waiting for placement. Mental Status Exam Mental Status Exam Patient Appearance: Appropriate Patient Orientation: Person Level of Consciousness: Awake Patient Behavior: Guarded and Passive Mood Description: Calm Affect Description: Constricted Patient Cognition Impaired: Yes Ability to Follow Directions: Good Speech Pattern: Clear Hallucinations: None Delusions: Not Present Thought Process: Distracted and Slowed Thinking Thought Content: positive for [place] and positive for Poverty of Content Judgement: Fair Diagnostics Vital Signs (24Hr): Vital Signs - 24 hr 12/26/23 18:00 Temperature 96.9 F Pulse Rate 64 Respiratory Rate 18 Blood Pressure 115/56 L Pulse Oximetry 96 Oxygen Delivery Method Room Air BMI result Body Mass Index 27.9 Labs 11/13/23 08:28 11/13/23 08:28 Labs: Laboratory Results - last 48 hr 12/25/23 12/26/23 12/26/23 20:06 06:13 19:58 POC Glucose 181 H 147 H 193 H 12/27/23 06:24 POC Glucose 143 H Imaging Radiology Impressions: ITS Impressions Brain MRI 04/03/23 15:30 IMPRESSION: No acute infarct, mass lesion, intracranial hemorrhage, or evidence of hydrocephalus. Mild nonspecific T2/FLAIR hyperintensity in the cerebral white matter and danny presumably on the basis of chronic microangiopathy. Cervical Spine CT 07/03/23 20:12 IMPRESSION: No acute findings within the cervical spine. The cervical central canal is not well assessed on this CT due to artifact. If weakness persists, a cervical spine MRI would be more sensitive in assessment. Medications Medications Current Medications Acetaminophen (Acetaminophen 325 Mg Tablet) 650 mg PO Q6H PRN PRN Reason: Pain, Mild (Pain Scale 1-3) Last Admin: 12/26/23 22:05 Dose: 650 mg Amphetamine/Dextroamphetamine (Amphetamine Mixed Salts 10 Mg Tablet) 5 mg PO BID@0800,1500 BEN Bisacodyl (Bisacodyl 5 Mg Tablet.Dr) 10 mg PO DAILY PRN PRN Reason: Constipation Last Admin: 10/13/23 23:19 Dose: 10 mg Docusate Sodium (Docusate Sodium 100 Mg Capsule) 100 mg PO BID [facility] Last Admin: 12/27/23 08:51 Dose: 100 mg Guaifenesin (Guaifenesin La 600 Mg Tab.Er.12h) 600 mg PO BID PRN PRN Reason: Cough Last Admin: 11/02/23 21:54 Dose: 600 mg Haloperidol (Haloperidol 1 Mg Tablet) 1 mg PO Q4H PRN PRN Reason: Hallucinations Last Admin: 12/24/23 19:32 Dose: 1 mg Haloperidol (Haloperidol 1 Mg Tablet) 1 mg PO BID@0830,1630 [facility] Last Admin: 12/27/23 08:52 Dose: 1 mg Insulin Glargine (Insulin Glargine,Hum.Rec.Anlog 100 Unit/Ml 10 Ml Vial) 6 unit SUBCUT DAILY [facility] Last Admin: 12/27/23 08:51 Dose: 6 unit Magnesium Oxide (Magnesium Oxide 400 Mg Tablet) 400 mg PO BIDPC [facility] Last Admin: 12/27/23 08:52 Dose: 400 mg Melatonin (Melatonin 3 Mg Tablet) 6 mg PO BEDTIME [facility] Last Admin: 12/26/23 20:32 Dose: 6 mg Memantine (Memantine Hcl 10 Mg Tablet) 10 mg PO BID [facility] Last Admin: 12/27/23 08:52 Dose: 10 mg Polyethylene Glycol (Polyethylene Glycol 3350 17 Gm Powd.Pack) 17 gm PO DAILY [facility] Last Admin: 12/27/23 08:53 Dose: 17 gm Senna (Sennosides 8.6 Mg Tablet) 17.2 mg PO BEDTIME [facility] Last Admin: 12/26/23 20:32 Dose: 17.2 mg Sertraline HCl (Sertraline Hcl 50 Mg Tablet) 150 mg PO DAILY [facility] Last Admin: 12/27/23 08:52 Dose: 150 mg Trazodone HCl (Trazodone Hcl 50 Mg Tablet) 50 mg PO BEDTIME MRX1 PRN PRN Reason: Sleep Last Admin: 12/26/23 22:06 Dose: 50 mg Allergies Allergies Allergy/AdvReac Type Severity Reaction Status Date / Time No Known Allergies Allergy Verified 03/23/23 18:13 Assessment & Plan Assessment & Plan (1) Alzheimer's dementia: Status: Acute Code(s): G30.9 - Alzheimer's disease, unspecified; F02.80 - Dementia in other diseases classified elsewhere, unspecified severity, without behavioral disturbance, psychotic disturbance, mood disturbance, and anxiety Assessment and Plan: August 24 58 years old woman with relative young age onset at Alzheimer dementia but overall clinical picture is affected by significant depression, which continues to be the predominant feature of for clinical picture. Conventional dementia medicines such as donepezil or memantine can be tried but usually do not make significant difference. I would suggest memantine 10 mg twice a day and donepezil 10 mg daily. Recently a new dementia at drug for Alzheimer was approved but only for relatively mild dementia or mild cognitive impairment type of patients. She would not qualify for that drug. 10/18 Patient sitting in chair in the day room, head leaning over to 1 side, resting. When asked how she is doing she says that she has diabetes and that she takes meds for that. 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 Staff reports no changes in behavior but seems to have more frequent lucid moments. 10/27 continue tx. hold adderall due to increase irritability now that she is covid positive. 10/29: symptomatic of COVID - URI Sx. VSS. no change in mental health presentation. continue current mgmt. 10/30: continues laid low by COVID. psych presentation essentially unchanged. continue current mgmt, monitor VS. 10/31 continue tx. 11/05 CTP no change 11/06/23 - CTP 11/11/2023: No changes 11/12/2023: No changes to current plan 12/08 continue tx. 12/08: no changes 12/09: no changes 12/11 continue tx. 12/16/23 Continue tx. 12/17/23 Continue tx. 12/23: Continue current regimen and plans 12/24: Continue current regimen and plans 12/25: Continue current plans and regimen Plan 1. Continue with current treatment. 2. Waiting for placement. Plan Plan continue with same treatment Reason for continued inpatient stay Substantial Risk for: inability to function, rapid decompensation and med/psych decompensation Time Spent With Patient Time: Total time managing care of this patient today __20__ minutes.
[2023-12-27 19:58] LABS: Glucose, Whole Blood 152 mg/dL (60-115)
[2023-12-27] MEDS: Melatonin 3 MG TABLET 6 MG PO (20:09)
[2023-12-27] MEDS: Sennosides 8.6 MG TABLET 17.2 MG PO (20:09)
[2023-12-27] MEDS: traZODone HCL 50 MG TABLET PO (20:09)
[2023-12-27 20:25] VITALS: BP 135/64; PULSE 61; RESP 18; TEMP 36.4; O2SAT 98
[2023-12-28 07:00] LABS: Glucose, Whole Blood 136 mg/dL (60-115)
[2023-12-28] MEDS: Insulin Glargine,Hum.rec.anlog 100 UNIT/ML 10 ML VIAL 6 UNIT SUBCUT (08:26)
[2023-12-28] MEDS: polyethylene glycoL 3350 17 GM POWD.PACK PO (08:26)
[2023-12-28] MEDS: Memantine HCl 10 MG TABLET PO ×2 (08:27→20:14)
[2023-12-28] MEDS: Magnesium Oxide 400 MG TABLET PO ×2 (08:27→17:46)
[2023-12-28] MEDS: Sertraline HCL 50 MG TABLET 150 MG PO (08:27)
[2023-12-28] MEDS: HaloperidoL 1 MG TABLET PO ×2 (08:27→17:46)
[2023-12-28] MEDS: Docusate Sodium 100 MG CAPSULE PO ×2 (08:27→20:14)
[2023-12-28 11:05] VITALS: BP 137/67; PULSE 60; RESP 16; TEMP 36.4; O2SAT 100
--- NOTE | 2023-12-28 11:51 | P.PNPSI_ITS ---
Subjective Subjective Date of Service: 12/28/23 Reason For Visit: hallucinations confusion Subjective Notes: Conditional Voluntary Interim History: The nursing staff reported the patient had been compliant with treatment no changes in her mental status. On interview the patient denies new symptoms, waiting for placement. Mental Status Exam Mental Status Exam Patient Appearance: Well Grooomed and Appropriate Patient Orientation: Person and Situation Level of Consciousness: Awake and Appropriate Patient Behavior: Guarded and Passive Mood Description: Withdrawn Affect Description: Constricted Patient Cognition Impaired: Yes Ability to Follow Directions: Good Speech Pattern: Clear Hallucinations: None Delusions: Not Present Thought Process: Linear Thought Content: positive for [place] and positive for [place] Judgement: Fair Diagnostics Vital Signs (24Hr): Vital Signs - 24 hr 12/27/23 20:25 Temperature 97.6 F Pulse Rate 61 Respiratory Rate 18 Blood Pressure 135/64 Pulse Oximetry 98 Oxygen Delivery Method Room Air BMI result Body Mass Index 27.9 Labs 11/13/23 08:28 11/13/23 08:28 Labs: Laboratory Results - last 48 hr 12/26/23 12/27/23 12/27/23 19:58 06:24 19:39 POC Glucose 193 H 143 H 152 H 12/28/23 06:50 POC Glucose 136 H Imaging Radiology Impressions: ITS Impressions Brain MRI 04/03/23 15:30 IMPRESSION: No acute infarct, mass lesion, intracranial hemorrhage, or evidence of hydrocephalus. Mild nonspecific T2/FLAIR hyperintensity in the cerebral white matter and danny presumably on the basis of chronic microangiopathy. Cervical Spine CT 07/03/23 20:12 IMPRESSION: No acute findings within the cervical spine. The cervical central canal is not well assessed on this CT due to artifact. If weakness persists, a cervical spine MRI would be more sensitive in assessment. Medications Medications Current Medications Acetaminophen (Acetaminophen 325 Mg Tablet) 650 mg PO Q6H PRN PRN Reason: Pain, Mild (Pain Scale 1-3) Last Admin: 12/26/23 22:05 Dose: 650 mg Amphetamine/Dextroamphetamine (Amphetamine Mixed Salts 10 Mg Tablet) 5 mg PO BID@0800,1500 BEN Bisacodyl (Bisacodyl 5 Mg Tablet.Dr) 10 mg PO DAILY PRN PRN Reason: Constipation Last Admin: 10/13/23 23:19 Dose: 10 mg Docusate Sodium (Docusate Sodium 100 Mg Capsule) 100 mg PO BID BEN Last Admin: 12/28/23 08:27 Dose: 100 mg Guaifenesin (Guaifenesin La 600 Mg Tab.Er.12h) 600 mg PO BID PRN PRN Reason: Cough Last Admin: 11/02/23 21:54 Dose: 600 mg Haloperidol (Haloperidol 1 Mg Tablet) 1 mg PO Q4H PRN PRN Reason: Hallucinations Last Admin: 12/24/23 19:32 Dose: 1 mg Haloperidol (Haloperidol 1 Mg Tablet) 1 mg PO BID@0830,1630 [facility] Last Admin: 12/28/23 08:27 Dose: 1 mg Insulin Glargine (Insulin Glargine,Hum.Rec.Anlog 100 Unit/Ml 10 Ml Vial) 6 unit SUBCUT DAILY [facility] Last Admin: 12/28/23 08:26 Dose: 6 unit Magnesium Oxide (Magnesium Oxide 400 Mg Tablet) 400 mg PO BIDPC [facility] Last Admin: 12/28/23 08:27 Dose: 400 mg Melatonin (Melatonin 3 Mg Tablet) 6 mg PO BEDTIME [facility] Last Admin: 12/27/23 20:09 Dose: 6 mg Memantine (Memantine Hcl 10 Mg Tablet) 10 mg PO BID [facility] Last Admin: 12/28/23 08:27 Dose: 10 mg Polyethylene Glycol (Polyethylene Glycol 3350 17 Gm Powd.Pack) 17 gm PO DAILY [facility] Last Admin: 12/28/23 08:26 Dose: 17 gm Senna (Sennosides 8.6 Mg Tablet) 17.2 mg PO BEDTIME [facility] Last Admin: 12/27/23 20:09 Dose: 17.2 mg Sertraline HCl (Sertraline Hcl 50 Mg Tablet) 150 mg PO DAILY [facility] Last Admin: 12/28/23 08:27 Dose: 150 mg Trazodone HCl (Trazodone Hcl 50 Mg Tablet) 50 mg PO BEDTIME MRX1 PRN PRN Reason: Sleep Last Admin: 12/27/23 20:09 Dose: 50 mg Allergies Allergies Allergy/AdvReac Type Severity Reaction Status Date / Time No Known Allergies Allergy Verified 03/23/23 18:13 Assessment & Plan Assessment & Plan (1) Alzheimer's dementia: Status: Acute Code(s): G30.9 - Alzheimer's disease, unspecified; F02.80 - Dementia in other diseases classified elsewhere, unspecified severity, without behavioral disturbance, psychotic disturbance, mood disturbance, and anxiety Assessment and Plan: August [birth year] 58 years old woman with relative young age onset at Alzheimer dementia but overall clinical picture is affected by significant depression, which continues to be the predominant feature of for clinical picture. Conventional dementia medicines such as donepezil or memantine can be tried but usually do not make significant difference. I would suggest memantine 10 mg twice a day and donepezil 10 mg daily. Recently a new dementia at drug for Alzheimer was approved but only for relatively mild dementia or mild cognitive impairment type of patients. She would not qualify for that drug. 10/18 Patient sitting in chair in the day room, head leaning over to 1 side, resting. When asked how she is doing she says that she has diabetes and that she takes meds for that. 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 Staff reports no changes in behavior but seems to have more frequent lucid moments. 10/27 continue tx. hold adderall due to increase irritability now that she is covid positive. 10/29: symptomatic of COVID - URI Sx. VSS. no change in mental health presentation. continue current mgmt. 10/30: continues laid low by COVID. psych presentation essentially unchanged. continue current mgmt, monitor VS. 10/31 continue tx. 11/05 CTP no change 11/06/23 - CTP 11/11/2023: No changes 11/12/2023: No changes to current plan 12/08 continue tx. 12/08: no changes 12/09: no changes 12/11 continue tx. 12/16/23 Continue tx. 12/17/23 Continue tx. 12/23: Continue current regimen and plans 12/24: Continue current regimen and plans 12/25: Continue current plans and regimen Plan 1. Continue with current treatment. 2. Waiting for placement. Plan Plan continue with same treatment Reason for continued inpatient stay Substantial Risk for: inability to function, rapid decompensation and med/psych decompensation Time Spent With Patient Time: Total time managing care of this patient today __20__ minutes.
[2023-12-28 18:00] VITALS: BP 130/68; PULSE 74; RESP 18; TEMP 36.1; O2SAT 98
[2023-12-28] MEDS: Melatonin 3 MG TABLET 6 MG PO (20:13)
[2023-12-28] MEDS: Sennosides 8.6 MG TABLET 17.2 MG PO (20:14)
[2023-12-28 20:18] LABS: Glucose, Whole Blood 175 mg/dL (60-115)
[2023-12-29 06:15] LABS: Glucose, Whole Blood 122 mg/dL (60-115)
[2023-12-29 08:20] VITALS: BP 108/54; PULSE 64; RESP 18; TEMP 36.6; O2SAT 98
[2023-12-29] MEDS: HaloperidoL 1 MG TABLET PO ×2 (08:26→17:27)
[2023-12-29] MEDS: Sertraline HCL 50 MG TABLET 150 MG PO (08:26)
[2023-12-29] MEDS: Magnesium Oxide 400 MG TABLET PO ×2 (08:27→17:27)
[2023-12-29] MEDS: Docusate Sodium 100 MG CAPSULE PO ×2 (08:27→20:38)
[2023-12-29] MEDS: Memantine HCl 10 MG TABLET PO ×2 (08:27→20:38)
[2023-12-29] MEDS: polyethylene glycoL 3350 17 GM POWD.PACK PO (08:27)
[2023-12-29] MEDS: Insulin Glargine,Hum.rec.anlog 100 UNIT/ML 10 ML VIAL 6 UNIT SUBCUT (08:31)
--- NOTE | 2023-12-29 14:51 | HO.PSYCHPN ---
Subjective Subjective Date of Service: 12/29/23 Reason For Visit: hallucinations confusion Subjective Notes: Conditional Voluntary Interim History: The nursing staff reports no changes in her mental status. On interview the patient remains pleasantly confused easily redirectable, waiting for placement. Mental Status Exam Mental Status Exam Patient Appearance: Appropriate Patient Orientation: Person and Situation Level of Consciousness: Awake and Appropriate Patient Behavior: Guarded and Passive Mood Description: Withdrawn Affect Description: Blunted Patient Cognition Impaired: Yes Ability to Follow Directions: Good Speech Pattern: Clear Hallucinations: None Delusions: Not Present Thought Process: Distracted and Slowed Thinking Thought Content: positive for [place] and positive for Poverty of Content Judgement: Poor Diagnostics Vital Signs (24Hr): Vital Signs - 24 hr 12/28/23 18:00 12/29/23 08:20 Temperature 97 F 97.9 F Pulse Rate 74 64 Respiratory Rate 18 18 Blood Pressure 130/68 108/54 L Pulse Oximetry 98 98 Oxygen Delivery Method Room Air Room Air BMI result Body Mass Index 27.9 Labs 11/13/23 08:28 11/13/23 08:28 Labs: Laboratory Results - last 48 hr 12/27/23 12/28/23 12/28/23 19:39 06:50 20:11 POC Glucose 152 H 136 H 175 H 12/29/23 06:05 POC Glucose 122 H Imaging Radiology Impressions: ITS Impressions Brain MRI 04/03/23 15:30 IMPRESSION: No acute infarct, mass lesion, intracranial hemorrhage, or evidence of hydrocephalus. Mild nonspecific T2/FLAIR hyperintensity in the cerebral white matter and danny presumably on the basis of chronic microangiopathy. Cervical Spine CT 07/03/23 20:12 IMPRESSION: No acute findings within the cervical spine. The cervical central canal is not well assessed on this CT due to artifact. If weakness persists, a cervical spine MRI would be more sensitive in assessment. Medications Medications Current Medications Acetaminophen (Acetaminophen 325 Mg Tablet) 650 mg PO Q6H PRN PRN Reason: Pain, Mild (Pain Scale 1-3) Last Admin: 12/26/23 22:05 Dose: 650 mg Amphetamine/Dextroamphetamine (Amphetamine Mixed Salts 10 Mg Tablet) 5 mg PO BID@0800,1500 BEN Bisacodyl (Bisacodyl 5 Mg Tablet.Dr) 10 mg PO DAILY PRN PRN Reason: Constipation Last Admin: 10/13/23 23:19 Dose: 10 mg Docusate Sodium (Docusate Sodium 100 Mg Capsule) 100 mg PO BID [facility] Last Admin: 12/29/23 08:27 Dose: 100 mg Guaifenesin (Guaifenesin La 600 Mg Tab.Er.12h) 600 mg PO BID PRN PRN Reason: Cough Last Admin: 11/02/23 21:54 Dose: 600 mg Haloperidol (Haloperidol 1 Mg Tablet) 1 mg PO Q4H PRN PRN Reason: Hallucinations Last Admin: 12/24/23 19:32 Dose: 1 mg Haloperidol (Haloperidol 1 Mg Tablet) 1 mg PO BID@0830,1630 [facility] Last Admin: 12/29/23 08:26 Dose: 1 mg Insulin Glargine (Insulin Glargine,Hum.Rec.Anlog 100 Unit/Ml 10 Ml Vial) 6 unit SUBCUT DAILY [facility] Last Admin: 12/29/23 08:31 Dose: 6 unit Magnesium Oxide (Magnesium Oxide 400 Mg Tablet) 400 mg PO BIDPC [facility] Last Admin: 12/29/23 08:27 Dose: 400 mg Melatonin (Melatonin 3 Mg Tablet) 6 mg PO BEDTIME [facility] Last Admin: 12/28/23 20:13 Dose: 6 mg Memantine (Memantine Hcl 10 Mg Tablet) 10 mg PO BID [facility] Last Admin: 12/29/23 08:27 Dose: 10 mg Polyethylene Glycol (Polyethylene Glycol 3350 17 Gm Powd.Pack) 17 gm PO DAILY [facility] Last Admin: 12/29/23 08:27 Dose: 17 gm Senna (Sennosides 8.6 Mg Tablet) 17.2 mg PO BEDTIME [facility] Last Admin: 12/28/23 20:14 Dose: 17.2 mg Sertraline HCl (Sertraline Hcl 50 Mg Tablet) 150 mg PO DAILY [facility] Last Admin: 12/29/23 08:26 Dose: 150 mg Trazodone HCl (Trazodone Hcl 50 Mg Tablet) 50 mg PO BEDTIME MRX1 PRN PRN Reason: Sleep Last Admin: 12/27/23 20:09 Dose: 50 mg Allergies Allergies Allergy/AdvReac Type Severity Reaction Status Date / Time No Known Allergies Allergy Verified 03/23/23 18:13 Assessment & Plan Assessment & Plan (1) Alzheimer's dementia: Status: Acute Code(s): G30.9 - Alzheimer's disease, unspecified; F02.80 - Dementia in other diseases classified elsewhere, unspecified severity, without behavioral disturbance, psychotic disturbance, mood disturbance, and anxiety Assessment and Plan: August 24 58 years old woman with relative young age onset at Alzheimer dementia but overall clinical picture is affected by significant depression, which continues to be the predominant feature of for clinical picture. Conventional dementia medicines such as donepezil or memantine can be tried but usually do not make significant difference. I would suggest memantine 10 mg twice a day and donepezil 10 mg daily. Recently a new dementia at drug for Alzheimer was approved but only for relatively mild dementia or mild cognitive impairment type of patients. She would not qualify for that drug. 10/18 Patient sitting in chair in the day room, head leaning over to 1 side, resting. When asked how she is doing she says that she has diabetes and that she takes meds for that. She asks if show card writer will be down here again. Staff reports no changes in behavior but seems to have more frequent lucid moments. 10/27 continue tx. hold adderall due to increase irritability now that she is covid positive. 10/29: symptomatic of COVID - URI Sx. VSS. no change in mental health presentation. continue current mgmt. 10/30: continues laid low by COVID. psych presentation essentially unchanged. continue current mgmt, monitor VS. 10/31 continue tx. 11/05 CTP no change 11/06/23 - CTP 11/11/2023: No changes 11/12/2023: No changes to current plan 12/08 continue tx. 12/08: no changes 12/09: no changes 12/11 continue tx. 12/16/23 Continue tx. 12/17/23 Continue tx. 12/23: Continue current regimen and plans 12/24: Continue current regimen and plans 12/25: Continue current plans and regimen Plan 1. Continue with current treatment. 2. Waiting for placement. Plan Plan continue with same treatment Reason for continued inpatient stay Substantial Risk for: inability to function, rapid decompensation and med/psych decompensation Time Spent With Patient Time: Total time managing care of this patient today _20___ minutes.
[2023-12-29 18:00] VITALS: BP 143/63; PULSE 63; RESP 16; TEMP 36.3; O2SAT 99
[2023-12-29 20:23] LABS: Glucose, Whole Blood 251 mg/dL (60-115)
[2023-12-29] MEDS: Melatonin 3 MG TABLET 6 MG PO (20:37)
[2023-12-29] MEDS: Sennosides 8.6 MG TABLET 17.2 MG PO (20:38)
[2023-12-29] MEDS: traZODone HCL 50 MG TABLET PO (20:38)
[2023-12-30 06:48] LABS: Glucose, Whole Blood 133 mg/dL (60-115)
[2023-12-30 08:00] VITALS: BP 131/62; PULSE 60; RESP 18; TEMP 36.8; O2SAT 96
--- NOTE | 2023-12-30 08:07 | P.PNPSI_ITS ---
Subjective Subjective Date of Service: 12/30/23 Reason For Visit: hallucinations confusion Subjective Notes: Conditional Voluntary Interim History: The nursing staff reported the patient had been visible in the unit compliant with treatment. On interview the patient denies new symptoms looks pleasantly confused, easily redirectable, waiting for placement. Mental Status Exam Mental Status Exam Patient Appearance: Appropriate Patient Orientation: Person and Situation Level of Consciousness: Awake and Appropriate Patient Behavior: Guarded and Passive Mood Description: Withdrawn Affect Description: Constricted Patient Cognition Impaired: Yes Ability to Follow Directions: Good Speech Pattern: Clear Hallucinations: None Delusions: Not Present Thought Process: Distracted and Slowed Thinking Thought Content: positive for [place] and positive for Poverty of Content Judgement: Fair Diagnostics Vital Signs (24Hr): Vital Signs - 24 hr 12/29/23 08:20 12/29/23 18:00 Temperature 97.9 F 97.3 F Pulse Rate 64 63 Respiratory Rate 18 16 Blood Pressure 108/54 L 143/63 H Pulse Oximetry 98 99 Oxygen Delivery Method Room Air Room Air BMI result Body Mass Index 27.9 Labs 11/13/23 08:28 11/13/23 08:28 Labs: Laboratory Results - last 48 hr 12/28/23 12/29/23 12/29/23 20:11 06:05 19:50 POC Glucose 175 H 122 H 251 H 12/30/23 06:37 POC Glucose 133 H Imaging Radiology Impressions: ITS Impressions Brain MRI 04/03/23 15:30 IMPRESSION: No acute infarct, mass lesion, intracranial hemorrhage, or evidence of hydrocephalus. Mild nonspecific T2/FLAIR hyperintensity in the cerebral white matter and danny presumably on the basis of chronic microangiopathy. Cervical Spine CT 07/03/23 20:12 IMPRESSION: No acute findings within the cervical spine. The cervical central canal is not well assessed on this CT due to artifact. If weakness persists, a cervical spine MRI would be more sensitive in assessment. Medications Medications Current Medications Acetaminophen (Acetaminophen 325 Mg Tablet) 650 mg PO Q6H PRN PRN Reason: Pain, Mild (Pain Scale 1-3) Last Admin: 12/26/23 22:05 Dose: 650 mg Amphetamine/Dextroamphetamine (Amphetamine Mixed Salts 10 Mg Tablet) 5 mg PO BID@0800,1500 BEN Bisacodyl (Bisacodyl 5 Mg Tablet.Dr) 10 mg PO DAILY PRN PRN Reason: Constipation Last Admin: 10/13/23 23:19 Dose: 10 mg Docusate Sodium (Docusate Sodium 100 Mg Capsule) 100 mg PO BID [facility] Last Admin: 12/29/23 20:38 Dose: 100 mg Guaifenesin (Guaifenesin La 600 Mg Tab.Er.12h) 600 mg PO BID PRN PRN Reason: Cough Last Admin: 11/02/23 21:54 Dose: 600 mg Haloperidol (Haloperidol 1 Mg Tablet) 1 mg PO Q4H PRN PRN Reason: Hallucinations Last Admin: 12/24/23 19:32 Dose: 1 mg Haloperidol (Haloperidol 1 Mg Tablet) 1 mg PO BID@0830,1630 [facility] Last Admin: 12/29/23 17:27 Dose: 1 mg Insulin Glargine (Insulin Glargine,Hum.Rec.Anlog 100 Unit/Ml 10 Ml Vial) 6 unit SUBCUT DAILY [facility] Last Admin: 12/29/23 08:31 Dose: 6 unit Magnesium Oxide (Magnesium Oxide 400 Mg Tablet) 400 mg PO BIDPC [facility] Last Admin: 12/29/23 17:27 Dose: 400 mg Melatonin (Melatonin 3 Mg Tablet) 6 mg PO BEDTIME [facility] Last Admin: 12/29/23 20:37 Dose: 6 mg Memantine (Memantine Hcl 10 Mg Tablet) 10 mg PO BID [facility] Last Admin: 12/29/23 20:38 Dose: 10 mg Polyethylene Glycol (Polyethylene Glycol 3350 17 Gm Powd.Pack) 17 gm PO DAILY [facility] Last Admin: 12/29/23 08:27 Dose: 17 gm Senna (Sennosides 8.6 Mg Tablet) 17.2 mg PO BEDTIME [facility] Last Admin: 12/29/23 20:38 Dose: 17.2 mg Sertraline HCl (Sertraline Hcl 50 Mg Tablet) 150 mg PO DAILY [facility] Last Admin: 12/29/23 08:26 Dose: 150 mg Trazodone HCl (Trazodone Hcl 50 Mg Tablet) 50 mg PO BEDTIME MRX1 PRN PRN Reason: Sleep Last Admin: 12/29/23 20:38 Dose: 50 mg Allergies Allergies Allergy/AdvReac Type Severity Reaction Status Date / Time No Known Allergies Allergy Verified 03/23/23 18:13 Assessment & Plan Assessment & Plan (1) Alzheimer's dementia: Status: Acute Code(s): G30.9 - Alzheimer's disease, unspecified; F02.80 - Dementia in other diseases classified elsewhere, unspecified severity, without behavioral disturbance, psychotic disturbance, mood disturbance, and anxiety Assessment and Plan: August 24 58 years old woman with relative young age onset at Alzheimer dementia but overall clinical picture is affected by significant depression, which continues to be the predominant feature of for clinical picture. Conventional dementia medicines such as donepezil or memantine can be tried but usually do not make significant difference. I would suggest memantine 10 mg twice a day and donepezil 10 mg daily. Recently a new dementia at drug for Alzheimer was approved but only for relatively mild dementia or mild cognitive impairment type of patients. She would not qualify for that drug. 10/18 Patient sitting in chair in the day room, head leaning over to 1 side, resting. When asked how she is doing she says that she has diabetes and that she takes meds for that. She asks if sign writer hand will be down here again. Staff reports no changes in behavior but seems to have more frequent lucid moments. 10/27 continue tx. hold adderall due to increase irritability now that she is covid positive. 10/29: symptomatic of COVID - URI Sx. VSS. no change in mental health presentation. continue current mgmt. 10/30: continues laid low by COVID. psych presentation essentially unchanged. continue current mgmt, monitor VS. 10/31 continue tx. 11/05 CTP no change 11/06/23 - CTP 11/11/2023: No changes 11/12/2023: No changes to current plan 12/08 continue tx. 12/08: no changes 12/09: no changes 12/11 continue tx. 12/16/23 Continue tx. 12/17/23 Continue tx. 12/23: Continue current regimen and plans 12/24: Continue current regimen and plans 12/25: Continue current plans and regimen Plan 1. Continue with current treatment. 2. Waiting for placement. Plan Plan continue with same treatment Reason for continued inpatient stay Substantial Risk for: inability to function, rapid decompensation and med/psych decompensation Time Spent With Patient Time: Total time managing care of this patient today __20__ minutes.
[2023-12-30] MEDS: Memantine HCl 10 MG TABLET PO ×2 (08:28→19:56)
[2023-12-30] MEDS: Sertraline HCL 50 MG TABLET 150 MG PO (08:28)
[2023-12-30] MEDS: Magnesium Oxide 400 MG TABLET PO ×2 (08:28→16:34)
[2023-12-30] MEDS: Docusate Sodium 100 MG CAPSULE PO ×2 (08:28→19:56)
[2023-12-30] MEDS: HaloperidoL 1 MG TABLET PO ×2 (08:28→16:34)
[2023-12-30] MEDS: Insulin Glargine,Hum.rec.anlog 100 UNIT/ML 10 ML VIAL 6 UNIT SUBCUT (08:29)
[2023-12-30] MEDS: polyethylene glycoL 3350 17 GM POWD.PACK PO (08:30)
[2023-12-30 19:38] LABS: Glucose, Whole Blood 146 mg/dL (60-115)
[2023-12-30 19:49] VITALS: BP 134/61; PULSE 60; RESP 18; TEMP 36.6; O2SAT 98
[2023-12-30] MEDS: Melatonin 3 MG TABLET 6 MG PO (19:56)
[2023-12-30] MEDS: Sennosides 8.6 MG TABLET 17.2 MG PO (19:56)
[2023-12-30] MEDS: traZODone HCL 50 MG TABLET PO (19:56)
[2023-12-31 06:13] LABS: Glucose, Whole Blood 127 mg/dL (60-115)
[2023-12-31 07:45] VITALS: BP 127/60; PULSE 61; RESP 18; TEMP 36.3; O2SAT 97
[2023-12-31] MEDS: polyethylene glycoL 3350 17 GM POWD.PACK PO (08:12)
[2023-12-31] MEDS: Sertraline HCL 50 MG TABLET 150 MG PO (08:12)
[2023-12-31] MEDS: Magnesium Oxide 400 MG TABLET PO ×2 (08:13→17:02)
[2023-12-31] MEDS: Memantine HCl 10 MG TABLET PO ×2 (08:13→20:33)
[2023-12-31] MEDS: Insulin Glargine,Hum.rec.anlog 100 UNIT/ML 10 ML VIAL 6 UNIT SUBCUT (08:13)
[2023-12-31] MEDS: Docusate Sodium 100 MG CAPSULE PO ×2 (08:13→20:33)
[2023-12-31] MEDS: HaloperidoL 1 MG TABLET PO ×2 (08:13→17:02)
--- NOTE | 2023-12-31 10:05 | P.PNPSI_ITS ---
Subjective Subjective Date of Service: 12/31/23 Reason For Visit: hallucinations confusion Subjective Notes: Conditional Voluntary Interim History: The nursing staff reported the patient had been compliant with treatment slept well last night On interview the patient remains pleasantly confused, easily redirectable. Mental Status Exam Mental Status Exam Patient Appearance: Appropriate Patient Orientation: Person and Situation Level of Consciousness: Awake and Appropriate Patient Behavior: Guarded and Passive Mood Description: Withdrawn Affect Description: Constricted Patient Cognition Impaired: Yes Ability to Follow Directions: Good Speech Pattern: Clear Hallucinations: None Delusions: Not Present Thought Process: Distracted Thought Content: positive for [place] and positive for Poverty of Content Judgement: Poor Diagnostics Vital Signs (24Hr): Vital Signs - 24 hr 12/30/23 19:49 12/31/23 07:45 Temperature 98 F 97.4 F Pulse Rate 60 61 Respiratory Rate 18 18 Blood Pressure 134/61 127/60 Pulse Oximetry 98 97 Oxygen Delivery Method Room Air Room Air BMI result Body Mass Index 27.9 Labs 11/13/23 08:28 11/13/23 08:28 Labs: Laboratory Results - last 48 hr 12/29/23 12/30/23 12/30/23 19:50 06:37 19:34 POC Glucose 251 H 133 H 146 H 12/31/23 06:05 POC Glucose 127 H Imaging Radiology Impressions: ITS Impressions Brain MRI 04/03/23 15:30 IMPRESSION: No acute infarct, mass lesion, intracranial hemorrhage, or evidence of hydrocephalus. Mild nonspecific T2/FLAIR hyperintensity in the cerebral white matter and danny presumably on the basis of chronic microangiopathy. Cervical Spine CT 07/03/23 20:12 IMPRESSION: No acute findings within the cervical spine. The cervical central canal is not well assessed on this CT due to artifact. If weakness persists, a cervical spine MRI would be more sensitive in assessment. Medications Medications Current Medications Acetaminophen (Acetaminophen 325 Mg Tablet) 650 mg PO Q6H PRN PRN Reason: Pain, Mild (Pain Scale 1-3) Last Admin: 12/26/23 22:05 Dose: 650 mg Amphetamine/Dextroamphetamine (Amphetamine Mixed Salts 10 Mg Tablet) 5 mg PO BID@0800,1500 BEN Bisacodyl (Bisacodyl 5 Mg Tablet.Dr) 10 mg PO DAILY PRN PRN Reason: Constipation Last Admin: 10/13/23 23:19 Dose: 10 mg Docusate Sodium (Docusate Sodium 100 Mg Capsule) 100 mg PO BID [facility] Last Admin: 12/31/23 08:13 Dose: 100 mg Guaifenesin (Guaifenesin La 600 Mg Tab.Er.12h) 600 mg PO BID PRN PRN Reason: Cough Last Admin: 11/02/23 21:54 Dose: 600 mg Haloperidol (Haloperidol 1 Mg Tablet) 1 mg PO Q4H PRN PRN Reason: Hallucinations Last Admin: 12/24/23 19:32 Dose: 1 mg Haloperidol (Haloperidol 1 Mg Tablet) 1 mg PO BID@0830,1630 [facility] Last Admin: 12/31/23 08:13 Dose: 1 mg Insulin Glargine (Insulin Glargine,Hum.Rec.Anlog 100 Unit/Ml 10 Ml Vial) 6 unit SUBCUT DAILY [facility] Last Admin: 12/31/23 08:13 Dose: 6 unit Magnesium Oxide (Magnesium Oxide 400 Mg Tablet) 400 mg PO BIDPC [facility] Last Admin: 12/31/23 08:13 Dose: 400 mg Melatonin (Melatonin 3 Mg Tablet) 6 mg PO BEDTIME [facility] Last Admin: 12/30/23 19:56 Dose: 6 mg Memantine (Memantine Hcl 10 Mg Tablet) 10 mg PO BID [facility] Last Admin: 12/31/23 08:13 Dose: 10 mg Polyethylene Glycol (Polyethylene Glycol 3350 17 Gm Powd.Pack) 17 gm PO DAILY [facility] Last Admin: 12/31/23 08:12 Dose: 17 gm Senna (Sennosides 8.6 Mg Tablet) 17.2 mg PO BEDTIME [facility] Last Admin: 12/30/23 19:56 Dose: 17.2 mg Sertraline HCl (Sertraline Hcl 50 Mg Tablet) 150 mg PO DAILY [facility] Last Admin: 12/31/23 08:12 Dose: 150 mg Trazodone HCl (Trazodone Hcl 50 Mg Tablet) 50 mg PO BEDTIME MRX1 PRN PRN Reason: Sleep Last Admin: 12/30/23 19:56 Dose: 50 mg Allergies Allergies Allergy/AdvReac Type Severity Reaction Status Date / Time No Known Allergies Allergy Verified 03/23/23 18:13 Assessment & Plan Assessment & Plan (1) Alzheimer's dementia: Status: Acute Code(s): G30.9 - Alzheimer's disease, unspecified; F02.80 - Dementia in other diseases classified elsewhere, unspecified severity, without behavioral disturbance, psychotic disturbance, mood disturbance, and anxiety Assessment and Plan: August [birth year] 58 years old woman with relative young age onset at Alzheimer dementia but overall clinical picture is affected by significant depression, which continues to be the predominant feature of for clinical picture. Conventional dementia medicines such as donepezil or memantine can be tried but usually do not make significant difference. I would suggest memantine 10 mg twice a day and donepezil 10 mg daily. Recently a new dementia at drug for Alzheimer was approved but only for relatively mild dementia or mild cognitive impairment type of patients. She would not qualify for that drug. 10/18 Patient sitting in chair in the day room, head leaning over to 1 side, resting. When asked how she is doing she says that she has diabetes and that she takes meds for that. She asks if mortgage underwriter will be down here again. Staff reports no changes in behavior but seems to have more frequent lucid moments. 10/27 continue tx. hold adderall due to increase irritability now that she is covid positive. 10/29: symptomatic of COVID - URI Sx. VSS. no change in mental health presentation. continue current mgmt. 10/30: continues laid low by COVID. psych presentation essentially unchanged. continue current mgmt, monitor VS. 10/31 continue tx. 11/05 CTP no change 11/06/23 - CTP 11/11/2023: No changes 11/12/2023: No changes to current plan 12/08 continue tx. 12/08: no changes 12/09: no changes 12/11 continue tx. 12/16/23 Continue tx. 12/17/23 Continue tx. 12/23: Continue current regimen and plans 12/24: Continue current regimen and plans 12/25: Continue current plans and regimen Plan 1. Continue with current treatment. 2. Waiting for placement. Plan Plan continue with same treatment Reason for continued inpatient stay Substantial Risk for: inability to function, rapid decompensation and med/psych decompensation Time Spent With Patient Time: Total time managing care of this patient today __20__ minutes.
[2023-12-31 19:35] VITALS: BP 132/59; PULSE 61; RESP 18; TEMP 36.2; O2SAT 100
[2023-12-31 19:50] LABS: Glucose, Whole Blood 204 mg/dL (60-115)
[2023-12-31] MEDS: traZODone HCL 50 MG TABLET PO (20:33)
[2023-12-31] MEDS: Melatonin 3 MG TABLET 6 MG PO (20:33)
[2023-12-31] MEDS: Sennosides 8.6 MG TABLET 17.2 MG PO (20:33)
[2024-01-01 06:15] LABS: Glucose, Whole Blood 127 mg/dL (60-115)
[2024-01-01 08:00] VITALS: BP 125/66; PULSE 61; RESP 18; TEMP 36.5; O2SAT 97
[2024-01-01] MEDS: Docusate Sodium 100 MG CAPSULE PO ×2 (08:11→19:50)
[2024-01-01] MEDS: polyethylene glycoL 3350 17 GM POWD.PACK PO (08:11)
[2024-01-01] MEDS: Insulin Glargine,Hum.rec.anlog 100 UNIT/ML 10 ML VIAL 6 UNIT SUBCUT (08:11)
[2024-01-01] MEDS: Memantine HCl 10 MG TABLET PO ×2 (08:11→19:50)
[2024-01-01] MEDS: Sertraline HCL 50 MG TABLET 150 MG PO (08:12)
[2024-01-01] MEDS: HaloperidoL 1 MG TABLET PO ×2 (08:12→16:22)
[2024-01-01] MEDS: Magnesium Oxide 400 MG TABLET PO ×2 (08:12→16:44)
--- NOTE | 2024-01-01 14:57 | P.PNPSI_ITS ---
Subjective Subjective Date of Service: 01/01/24 Reason For Visit: hallucinations confusion Subjective Notes: Conditional Voluntary Interim History: The nursing staff reported no changes in her mental status compliant with treatment, very pleasant. On interview the patient showed a brighter affect but very confused but easily redirectable. Waiting for placement. Mental Status Exam Mental Status Exam Patient Appearance: Well Grooomed and Appropriate Patient Orientation: Person and Situation Level of Consciousness: Awake and Alert Patient Behavior: Appropriate Mood Description: Calm Affect Description: Constricted Patient Cognition Impaired: Yes Ability to Follow Directions: Good Speech Pattern: Clear Hallucinations: None Delusions: Not Present Thought Process: Linear Thought Content: positive for [place] and positive for Poverty of Content Judgement: Fair Diagnostics Vital Signs (24Hr): Vital Signs - 24 hr 12/31/23 19:35 01/01/24 08:00 Temperature 97.1 F 97.7 F Pulse Rate 61 61 Respiratory Rate 18 18 Blood Pressure 132/59 L 125/66 Pulse Oximetry 100 97 Oxygen Delivery Method Room Air Room Air BMI result Body Mass Index 27.9 Labs 11/13/23 08:28 11/13/23 08:28 Labs: Laboratory Results - last 48 hr 12/30/23 12/31/23 12/31/23 19:34 06:05 19:46 POC Glucose 146 H 127 H 204 H 01/01/24 05:56 POC Glucose 127 H Imaging Radiology Impressions: ITS Impressions Brain MRI 04/03/23 15:30 IMPRESSION: No acute infarct, mass lesion, intracranial hemorrhage, or evidence of hydrocephalus. Mild nonspecific T2/FLAIR hyperintensity in the cerebral white matter and danny presumably on the basis of chronic microangiopathy. Cervical Spine CT 07/03/23 20:12 IMPRESSION: No acute findings within the cervical spine. The cervical central canal is not well assessed on this CT due to artifact. If weakness persists, a cervical spine MRI would be more sensitive in assessment. Medications Medications Current Medications Acetaminophen (Acetaminophen 325 Mg Tablet) 650 mg PO Q6H PRN PRN Reason: Pain, Mild (Pain Scale 1-3) Last Admin: 12/26/23 22:05 Dose: 650 mg Amphetamine/Dextroamphetamine (Amphetamine Mixed Salts 10 Mg Tablet) 5 mg PO BID@0800,1500 BEN Bisacodyl (Bisacodyl 5 Mg Tablet.Dr) 10 mg PO DAILY PRN PRN Reason: Constipation Last Admin: 10/13/23 23:19 Dose: 10 mg Docusate Sodium (Docusate Sodium 100 Mg Capsule) 100 mg PO BID [facility] Last Admin: 01/01/24 08:11 Dose: 100 mg Guaifenesin (Guaifenesin La 600 Mg Tab.Er.12h) 600 mg PO BID PRN PRN Reason: Cough Last Admin: 11/02/23 21:54 Dose: 600 mg Haloperidol (Haloperidol 1 Mg Tablet) 1 mg PO Q4H PRN PRN Reason: Hallucinations Last Admin: 12/24/23 19:32 Dose: 1 mg Haloperidol (Haloperidol 1 Mg Tablet) 1 mg PO BID@0830,1630 [facility] Last Admin: 01/01/24 08:12 Dose: 1 mg Insulin Glargine (Insulin Glargine,Hum.Rec.Anlog 100 Unit/Ml 10 Ml Vial) 6 unit SUBCUT DAILY [facility] Last Admin: 01/01/24 08:11 Dose: 6 unit Magnesium Oxide (Magnesium Oxide 400 Mg Tablet) 400 mg PO BIDPC [facility] Last Admin: 01/01/24 08:12 Dose: 400 mg Melatonin (Melatonin 3 Mg Tablet) 6 mg PO BEDTIME [facility] Last Admin: 12/31/23 20:33 Dose: 6 mg Memantine (Memantine Hcl 10 Mg Tablet) 10 mg PO BID [facility] Last Admin: 01/01/24 08:11 Dose: 10 mg Polyethylene Glycol (Polyethylene Glycol 3350 17 Gm Powd.Pack) 17 gm PO DAILY [facility] Last Admin: 01/01/24 08:11 Dose: 17 gm Senna (Sennosides 8.6 Mg Tablet) 17.2 mg PO BEDTIME [facility] Last Admin: 12/31/23 20:33 Dose: 17.2 mg Sertraline HCl (Sertraline Hcl 50 Mg Tablet) 150 mg PO DAILY [facility] Last Admin: 01/01/24 08:12 Dose: 150 mg Trazodone HCl (Trazodone Hcl 50 Mg Tablet) 50 mg PO BEDTIME MRX1 PRN PRN Reason: Sleep Last Admin: 12/31/23 20:33 Dose: 50 mg Allergies Allergies Allergy/AdvReac Type Severity Reaction Status Date / Time No Known Allergies Allergy Verified 03/23/23 18:13 Assessment & Plan Assessment & Plan (1) Alzheimer's dementia: Status: Acute Code(s): G30.9 - Alzheimer's disease, unspecified; F02.80 - Dementia in other diseases classified elsewhere, unspecified severity, without behavioral disturbance, psychotic disturbance, mood disturbance, and anxiety Assessment and Plan: August 24 58 years old woman with relative young age onset at Alzheimer dementia but overall clinical picture is affected by significant depression, which continues to be the predominant feature of for clinical picture. Conventional dementia medicines such as donepezil or memantine can be tried but usually do not make significant difference. I would suggest memantine 10 mg twice a day and donepezil 10 mg daily. Recently a new dementia at drug for Alzheimer was approved but only for relatively mild dementia or mild cognitive impairment type of patients. She would not qualify for that drug. 10/18 Patient sitting in chair in the day room, head leaning over to 1 side, resting. When asked how she is doing she says that she has diabetes and that she takes meds for that. 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 Staff reports no changes in behavior but seems to have more frequent lucid moments. 10/27 continue tx. hold adderall due to increase irritability now that she is covid positive. 10/29: symptomatic of COVID - URI Sx. VSS. no change in mental health presentation. continue current mgmt. 10/30: continues laid low by COVID. psych presentation essentially unchanged. continue current mgmt, monitor VS. 10/31 continue tx. 11/05 CTP no change 11/06/23 - CTP 11/11/2023: No changes 11/12/2023: No changes to current plan 12/08 continue tx. 12/08: no changes 12/09: no changes 12/11 continue tx. 12/16/23 Continue tx. 12/17/23 Continue tx. 12/23: Continue current regimen and plans 12/24: Continue current regimen and plans 12/25: Continue current plans and regimen Plan 1. Continue with current treatment. 2. Waiting for placement. Plan Plan continue with same treatment Reason for continued inpatient stay Substantial Risk for: inability to function, rapid decompensation and med/psych decompensation Time Spent With Patient Time: Total time managing care of this patient today ____ minutes.
[2024-01-01 18:00] VITALS: BP 135/72; PULSE 59; RESP 18; TEMP 36.6; O2SAT 99
[2024-01-01] MEDS: Sennosides 8.6 MG TABLET 17.2 MG PO (19:48)
[2024-01-01] MEDS: Melatonin 3 MG TABLET 6 MG PO (19:48)
[2024-01-01 19:49] LABS: Glucose, Whole Blood 135 mg/dL (60-115)
[2024-01-01] MEDS: traZODone HCL 50 MG TABLET PO (19:49)
[2024-01-02 06:08] LABS: Glucose, Whole Blood 131 mg/dL (60-115)
[2024-01-02 08:00] VITALS: BP 138/74; PULSE 61; RESP 18; TEMP 36.5; O2SAT 97
[2024-01-02] MEDS: Magnesium Oxide 400 MG TABLET PO ×2 (08:20→17:47)
[2024-01-02] MEDS: Docusate Sodium 100 MG CAPSULE PO ×2 (08:20→20:46)
[2024-01-02] MEDS: Sertraline HCL 50 MG TABLET 150 MG PO (08:20)
[2024-01-02] MEDS: Memantine HCl 10 MG TABLET PO ×2 (08:20→20:45)
[2024-01-02] MEDS: Insulin Glargine,Hum.rec.anlog 100 UNIT/ML 10 ML VIAL 6 UNIT SUBCUT (08:20)
[2024-01-02] MEDS: HaloperidoL 1 MG TABLET PO ×2 (08:20→17:47)
[2024-01-02] MEDS: polyethylene glycoL 3350 17 GM POWD.PACK PO (08:20)
--- NOTE | 2024-01-02 12:21 | HO.PSYCHPN ---
Subjective Subjective Date of Service: 01/02/24 Reason For Visit: hallucinations confusion Subjective Notes: Conditional Voluntary Interim History: The nursing staff reported no changes in her mental status compliant with treatment. We are going to do blood work for tomorrow, she used to have diabetes but now she has lost weight and looks much better probably her hemoglobin A1c has dropped. On interview the patient denies new symptoms. Mental Status Exam Mental Status Exam Patient Appearance: Appropriate Patient Orientation: Person and Situation Level of Consciousness: Awake and Appropriate Patient Behavior: Guarded and Passive Mood Description: Withdrawn Affect Description: Constricted Patient Cognition Impaired: Yes Ability to Follow Directions: Good Speech Pattern: Clear Hallucinations: None Delusions: Ideas of Reference Thought Process: Distracted and Slowed Thinking Thought Content: positive for [place] and positive for Poverty of Content Judgement: Poor Diagnostics Vital Signs (24Hr): Vital Signs - 24 hr 01/01/24 18:00 01/02/24 08:00 Temperature 97.8 F 97.7 F Pulse Rate 59 61 Respiratory Rate 18 18 Blood Pressure 135/72 138/74 Pulse Oximetry 99 97 Oxygen Delivery Method Room Air Room Air BMI result Body Mass Index 27.9 Labs 11/13/23 08:28 11/13/23 08:28 Labs: Laboratory Results - last 48 hr 12/31/23 01/01/24 01/01/24 19:46 05:56 19:39 POC Glucose 204 H 127 H 135 H 01/02/24 05:46 POC Glucose 131 H Imaging Radiology Impressions: ITS Impressions Brain MRI 04/03/23 15:30 IMPRESSION: No acute infarct, mass lesion, intracranial hemorrhage, or evidence of hydrocephalus. Mild nonspecific T2/FLAIR hyperintensity in the cerebral white matter and danny presumably on the basis of chronic microangiopathy. Cervical Spine CT 07/03/23 20:12 IMPRESSION: No acute findings within the cervical spine. The cervical central canal is not well assessed on this CT due to artifact. If weakness persists, a cervical spine MRI would be more sensitive in assessment. Medications Medications Current Medications Acetaminophen (Acetaminophen 325 Mg Tablet) 650 mg PO Q6H PRN PRN Reason: Pain, Mild (Pain Scale 1-3) Last Admin: 12/26/23 22:05 Dose: 650 mg Amphetamine/Dextroamphetamine (Amphetamine Mixed Salts 10 Mg Tablet) 5 mg PO BID@0800,1500 BEN Bisacodyl (Bisacodyl 5 Mg Tablet.Dr) 10 mg PO DAILY PRN PRN Reason: Constipation Last Admin: 10/13/23 23:19 Dose: 10 mg Docusate Sodium (Docusate Sodium 100 Mg Capsule) 100 mg PO BID [facility] Last Admin: 01/02/24 08:20 Dose: 100 mg Guaifenesin (Guaifenesin La 600 Mg Tab.Er.12h) 600 mg PO BID PRN PRN Reason: Cough Last Admin: 11/02/23 21:54 Dose: 600 mg Haloperidol (Haloperidol 1 Mg Tablet) 1 mg PO Q4H PRN PRN Reason: Hallucinations Last Admin: 12/24/23 19:32 Dose: 1 mg Haloperidol (Haloperidol 1 Mg Tablet) 1 mg PO BID@0830,1630 [facility] Last Admin: 01/02/24 08:20 Dose: 1 mg Insulin Glargine (Insulin Glargine,Hum.Rec.Anlog 100 Unit/Ml 10 Ml Vial) 6 unit SUBCUT DAILY [facility] Last Admin: 01/02/24 08:20 Dose: 6 unit Magnesium Oxide (Magnesium Oxide 400 Mg Tablet) 400 mg PO BIDPC [facility] Last Admin: 01/02/24 08:20 Dose: 400 mg Melatonin (Melatonin 3 Mg Tablet) 6 mg PO BEDTIME [facility] Last Admin: 01/01/24 19:48 Dose: 6 mg Memantine (Memantine Hcl 10 Mg Tablet) 10 mg PO BID [facility] Last Admin: 01/02/24 08:20 Dose: 10 mg Polyethylene Glycol (Polyethylene Glycol 3350 17 Gm Powd.Pack) 17 gm PO DAILY [facility] Last Admin: 01/02/24 08:20 Dose: 17 gm Senna (Sennosides 8.6 Mg Tablet) 17.2 mg PO BEDTIME [facility] Last Admin: 01/01/24 19:48 Dose: 17.2 mg Sertraline HCl (Sertraline Hcl 50 Mg Tablet) 150 mg PO DAILY [facility] Last Admin: 01/02/24 08:20 Dose: 150 mg Trazodone HCl (Trazodone Hcl 50 Mg Tablet) 50 mg PO BEDTIME MRX1 PRN PRN Reason: Sleep Last Admin: 01/01/24 19:49 Dose: 50 mg Allergies Allergies Allergy/AdvReac Type Severity Reaction Status Date / Time No Known Allergies Allergy Verified 03/23/23 18:13 Assessment & Plan Assessment & Plan (1) Alzheimer's dementia: Status: Acute Code(s): G30.9 - Alzheimer's disease, unspecified; F02.80 - Dementia in other diseases classified elsewhere, unspecified severity, without behavioral disturbance, psychotic disturbance, mood disturbance, and anxiety Assessment and Plan: August 24 58 years old woman with relative young age onset at Alzheimer dementia but overall clinical picture is affected by significant depression, which continues to be the predominant feature of for clinical picture. Conventional dementia medicines such as donepezil or memantine can be tried but usually do not make significant difference. I would suggest memantine 10 mg twice a day and donepezil 10 mg daily. Recently a new dementia at drug for Alzheimer was approved but only for relatively mild dementia or mild cognitive impairment type of patients. She would not qualify for that drug. 10/18 Patient sitting in chair in the day room, head leaning over to 1 side, resting. When asked how she is doing she says that she has diabetes and that she takes meds for that. 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 Staff reports no changes in behavior but seems to have more frequent lucid moments. 10/27 continue tx. hold adderall due to increase irritability now that she is covid positive. 10/29: symptomatic of COVID - URI Sx. VSS. no change in mental health presentation. continue current mgmt. 10/30: continues laid low by COVID. psych presentation essentially unchanged. continue current mgmt, monitor VS. 10/31 continue tx. 11/05 CTP no change 11/06/23 - CTP 11/11/2023: No changes 11/12/2023: No changes to current plan 12/08 continue tx. 12/08: no changes 12/09: no changes 12/11 continue tx. 12/16/23 Continue tx. 12/17/23 Continue tx. 12/23: Continue current regimen and plans 12/24: Continue current regimen and plans 12/25: Continue current plans and regimen Plan 1. Continue with current treatment. 2. Waiting for placement. Plan Plan continue with same treatment Reason for continued inpatient stay Substantial Risk for: inability to function, rapid decompensation and med/psych decompensation Time Spent With Patient Time: Total time managing care of this patient today _20___ minutes.
[2024-01-02 19:30] VITALS: BP 109/60; PULSE 68; RESP 18; TEMP 36.7; O2SAT 96
[2024-01-02 20:10] LABS: Glucose, Whole Blood 192 mg/dL (60-115)
[2024-01-02] MEDS: Melatonin 3 MG TABLET 6 MG PO (20:45)
[2024-01-02] MEDS: Sennosides 8.6 MG TABLET 17.2 MG PO (20:46)
[2024-01-03] MEDS: HaloperidoL 1 MG TABLET PO ×3 (02:44→18:04)
[2024-01-03] MEDS: traZODone HCL 50 MG TABLET PO ×2 (02:44→21:04)
[2024-01-03 06:52] LABS: Glucose, Whole Blood 130 mg/dL (60-115)
[2024-01-03 08:00] VITALS: BP 114/55; PULSE 66; RESP 18; TEMP 36.3; O2SAT 98
[2024-01-03 08:25] LABS: Estimated Average Glucose 160 mg/dL; Hemoglobin A1c % 7.2 % (<6.0)
[2024-01-03 08:29] LABS: Alanine Aminotransferase 13 U/L (0-31); Albumin Level 3.9 g/dL (3.5-5.0); Alkaline Phosphatase 77 U/L (39-117); Anion Gap 13 (12-20); Aspartate Amino Transferase 16 U/L (5-31); Bilirubin Total 0.4 mg/dL (0.0-1.0); Blood Urea Nitrogen 25 mg/dL (9-16); Calcium 9.9 mg/dL (8.4-10.2); Carbon Dioxide 30 mmol/L (22-29); Chloride 101 mmol/L (96-108); Creatinine Clr Calc Pharmacy 69.8; Estimated Glomerular Filt Rate > 60; Glucose Fasting 118 mg/dL (60-99); Sodium 140 mmol/L (135-145); Total Protein 6.8 g/dL (6.5-8.0)
[2024-01-03] MEDS: Insulin Glargine,Hum.rec.anlog 100 UNIT/ML 10 ML VIAL 6 UNIT SUBCUT (08:50)
[2024-01-03] MEDS: Memantine HCl 10 MG TABLET PO ×2 (08:51→21:05)
[2024-01-03] MEDS: Magnesium Oxide 400 MG TABLET PO ×2 (08:51→18:03)
[2024-01-03] MEDS: Sertraline HCL 50 MG TABLET 150 MG PO (08:51)
[2024-01-03] MEDS: Docusate Sodium 100 MG CAPSULE PO ×2 (08:51→21:04)
[2024-01-03] MEDS: polyethylene glycoL 3350 17 GM POWD.PACK PO (08:52)
--- NOTE | 2024-01-03 12:24 | P.PNPSI_ITS ---
Subjective Subjective Date of Service: 01/03/24 Reason For Visit: hallucinations confusion Subjective Notes: Conditional Voluntary Interim History: The nursing staff reported the patient had been compliant with treatment, she had been irritable with the nursing stating that she wants to live displeased that she is stuck here. She slept 7 hours. On interview I explained her that we are looking for placement and she agreed on the plan. The social service technician reported the main barrier for discharge she is her financial situation since she is still and she used to work and she has assets. The guardian has already applied for [employer]. Mental Status Exam Mental Status Exam Patient Appearance: Appropriate Patient Orientation: Person and Situation Level of Consciousness: Awake and Appropriate Patient Behavior: Guarded and Passive Mood Description: Withdrawn Affect Description: Constricted Patient Cognition Impaired: Yes Ability to Follow Directions: Good Speech Pattern: Clear Hallucinations: None Delusions: Not Present Thought Process: Distracted and Slowed Thinking Thought Content: positive for [place], positive for Poverty of Content and positive for Thought Blocking Judgement: Fair Diagnostics Vital Signs (24Hr): Vital Signs - 24 hr 01/02/24 19:30 01/03/24 08:00 Temperature 98.0 F 97.4 F Pulse Rate 68 66 Respiratory Rate 18 18 Blood Pressure 109/60 114/55 L Pulse Oximetry 96 98 Oxygen Delivery Method Room Air Room Air BMI result Body Mass Index 27.9 Labs 11/13/23 08:28 01/03/24 07:55 Labs: Laboratory Results - last 48 hr 01/01/24 01/02/24 01/02/24 19:39 05:46 19:51 Sodium Potassium Chloride Carbon Dioxide Anion Gap BUN Creatinine Estim Creat Clear Calc Estimated GFR POC Glucose 135 H 131 H 192 H Fasting Glucose Estimat Average Glucose Hemoglobin A1c % Calcium Total Bilirubin AST ALT Alkaline Phosphatase Total Protein Albumin 01/03/24 01/03/24 06:44 07:55 Sodium 140 Potassium 4.0 Chloride 101 Carbon Dioxide 30 H Anion Gap 13 BUN 25 H Creatinine 0.81 Estim Creat Clear Calc 69.8 Estimated GFR > 60 POC Glucose 130 H Fasting Glucose 118 H Estimat Average Glucose 160 Hemoglobin A1c % 7.2 H Calcium 9.9 Total Bilirubin 0.4 AST 16 ALT 13 Alkaline Phosphatase 77 Total Protein 6.8 Albumin 3.9 Imaging Radiology Impressions: ITS Impressions Brain MRI 04/03/23 15:30 IMPRESSION: No acute infarct, mass lesion, intracranial hemorrhage, or evidence of hydrocephalus. Mild nonspecific T2/FLAIR hyperintensity in the cerebral white matter and danny presumably on the basis of chronic microangiopathy. Cervical Spine CT 07/03/23 20:12 IMPRESSION: No acute findings within the cervical spine. The cervical central canal is not well assessed on this CT due to artifact. If weakness persists, a cervical spine MRI would be more sensitive in assessment. Medications Medications Current Medications Acetaminophen (Acetaminophen 325 Mg Tablet) 650 mg PO Q6H PRN PRN Reason: Pain, Mild (Pain Scale 1-3) Last Admin: 12/26/23 22:05 Dose: 650 mg Amphetamine/Dextroamphetamine (Amphetamine Mixed Salts 10 Mg Tablet) 5 mg PO BID@0800,1500 [facility] Bisacodyl (Bisacodyl 5 Mg Tablet.Dr) 10 mg PO DAILY PRN PRN Reason: Constipation Last Admin: 10/13/23 23:19 Dose: 10 mg Docusate Sodium (Docusate Sodium 100 Mg Capsule) 100 mg PO BID [facility] Last Admin: 01/03/24 08:51 Dose: 100 mg Guaifenesin (Guaifenesin La 600 Mg Tab.Er.12h) 600 mg PO BID PRN PRN Reason: Cough Last Admin: 11/02/23 21:54 Dose: 600 mg Haloperidol (Haloperidol 1 Mg Tablet) 1 mg PO Q4H PRN PRN Reason: Hallucinations Last Admin: 01/03/24 02:44 Dose: 1 mg Haloperidol (Haloperidol 1 Mg Tablet) 1 mg PO BID@0830,1630 [facility] Last Admin: 01/03/24 08:51 Dose: 1 mg Insulin Glargine (Insulin Glargine,Hum.Rec.Anlog 100 Unit/Ml 10 Ml Vial) 6 unit SUBCUT DAILY [facility] Last Admin: 01/03/24 08:50 Dose: 6 unit Magnesium Oxide (Magnesium Oxide 400 Mg Tablet) 400 mg PO BIDPC [facility] Last Admin: 01/03/24 08:51 Dose: 400 mg Melatonin (Melatonin 3 Mg Tablet) 6 mg PO BEDTIME [facility] Last Admin: 01/02/24 20:45 Dose: 6 mg Memantine (Memantine Hcl 10 Mg Tablet) 10 mg PO BID [facility] Last Admin: 01/03/24 08:51 Dose: 10 mg Polyethylene Glycol (Polyethylene Glycol 3350 17 Gm Powd.Pack) 17 gm PO DAILY [facility] Last Admin: 01/03/24 08:52 Dose: 17 gm Senna (Sennosides 8.6 Mg Tablet) 17.2 mg PO BEDTIME [facility] Last Admin: 01/02/24 20:46 Dose: 17.2 mg Sertraline HCl (Sertraline Hcl 50 Mg Tablet) 150 mg PO DAILY [facility] Last Admin: 01/03/24 08:51 Dose: 150 mg Trazodone HCl (Trazodone Hcl 50 Mg Tablet) 50 mg PO BEDTIME MRX1 PRN PRN Reason: Sleep Last Admin: 01/03/24 02:44 Dose: 50 mg Allergies Allergies Allergy/AdvReac Type Severity Reaction Status Date / Time No Known Allergies Allergy Verified 03/23/23 18:13 Assessment & Plan Assessment & Plan (1) Alzheimer's dementia: Status: Acute Code(s): G30.9 - Alzheimer's disease, unspecified; F02.80 - Dementia in other diseases classified elsewhere, unspecified severity, without behavioral disturbance, psychotic disturbance, mood disturbance, and anxiety Assessment and Plan: August 24 58 years old woman with relative young age onset at Alzheimer dementia but overall clinical picture is affected by significant depression, which continues to be the predominant feature of for clinical picture. Conventional dementia medicines such as donepezil or memantine can be tried but usually do not make significant difference. I would suggest memantine 10 mg twice a day and donepezil 10 mg daily. Recently a new dementia at drug for Alzheimer was approved but only for relatively mild dementia or mild cognitive impairment type of patients. She would not qualify for that drug. 10/18 Patient sitting in chair in the day room, head leaning over to 1 side, resting. When asked how she is doing she says that she has diabetes and that she takes meds for that. 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 Staff reports no changes in behavior but seems to have more frequent lucid moments. 10/27 continue tx. hold adderall due to increase irritability now that she is covid positive. 10/29: symptomatic of COVID - URI Sx. VSS. no change in mental health presentation. continue current mgmt. 10/30: continues laid low by COVID. psych presentation essentially unchanged. continue current mgmt, monitor VS. 10/31 continue tx. 11/05 CTP no change 11/06/23 - CTP 11/11/2023: No changes 11/12/2023: No changes to current plan 12/08 continue tx. 12/08: no changes 12/09: no changes 12/11 continue tx. 12/16/23 Continue tx. 12/17/23 Continue tx. 12/23: Continue current regimen and plans 12/24: Continue current regimen and plans 12/25: Continue current plans and regimen Plan 1. Continue with current treatment. 2. Waiting for placement. Plan Plan continue with same treatment Reason for continued inpatient stay Substantial Risk for: inability to function, rapid decompensation and med/psych decompensation Time Spent With Patient Time: Total time managing care of this patient today ____ minutes.
[2024-01-03 19:44] LABS: Glucose, Whole Blood 173 mg/dL (60-115)
[2024-01-03 20:28] LABS: Glucose, Whole Blood 192 mg/dL (60-115)
[2024-01-03 20:55] VITALS: BP 116/56; PULSE 76; RESP 18; TEMP 36.7; O2SAT 100
[2024-01-03] MEDS: Sennosides 8.6 MG TABLET 17.2 MG PO (21:04)
[2024-01-03] MEDS: Melatonin 3 MG TABLET 6 MG PO (21:04)
[2024-01-04 06:26] LABS: Glucose, Whole Blood 122 mg/dL (60-115)
[2024-01-04 07:00] VITALS: BMI 27.9
[2024-01-04 09:55] VITALS: BP 165/73; PULSE 72; RESP 14; TEMP 36.6; O2SAT 97
[2024-01-04] MEDS: Insulin Glargine,Hum.rec.anlog 100 UNIT/ML 10 ML VIAL 6 UNIT SUBCUT (10:28)
[2024-01-04] MEDS: Docusate Sodium 100 MG CAPSULE PO ×2 (10:28→20:55)
[2024-01-04] MEDS: HaloperidoL 1 MG TABLET PO ×2 (10:28→16:49)
[2024-01-04] MEDS: Magnesium Oxide 400 MG TABLET PO ×2 (10:28→16:49)
[2024-01-04] MEDS: Sertraline HCL 50 MG TABLET 150 MG PO (10:28)
[2024-01-04] MEDS: Memantine HCl 10 MG TABLET PO ×2 (10:28→20:55)
--- NOTE | 2024-01-04 11:26 | HO.PSYCHPN ---
Subjective Subjective Date of Service: 01/04/24 Reason For Visit: hallucinations confusion Subjective Notes: Conditional Voluntary Interim History: The nursing staff reported the patient had been compliant with treatment, no changes in her mental status. On interview the patient remains pleasantly confused easily redirectable, waiting for placement. Mental Status Exam Mental Status Exam Patient Appearance: Well Grooomed and Appropriate Patient Orientation: Person and Situation Level of Consciousness: Awake Patient Behavior: Guarded and Passive Mood Description: Calm Affect Description: Constricted Patient Cognition Impaired: Yes Ability to Follow Directions: Good Speech Pattern: Clear Hallucinations: None Delusions: Not Present Thought Process: Distracted and Slowed Thinking Thought Content: positive for [place] and positive for Poverty of Content Judgement: Poor Diagnostics Vital Signs (24Hr): Vital Signs - 24 hr 01/03/24 20:55 01/04/24 09:55 Temperature 98.1 F 98 F Pulse Rate 76 72 Respiratory Rate 18 14 Blood Pressure 116/56 L 165/73 H Pulse Oximetry 100 97 Oxygen Delivery Method Room Air Room Air BMI result Body Mass Index 27.9 Labs 11/13/23 08:28 01/03/24 07:55 Labs: Laboratory Results - last 48 hr 01/02/24 01/03/24 01/03/24 19:51 06:44 07:55 Sodium 140 Potassium 4.0 Chloride 101 Carbon Dioxide 30 H Anion Gap 13 BUN 25 H Creatinine 0.81 Estim Creat Clear Calc 69.8 Estimated GFR > 60 POC Glucose 192 H 130 H Fasting Glucose 118 H Estimat Average Glucose 160 Hemoglobin A1c % 7.2 H Calcium 9.9 Total Bilirubin 0.4 AST 16 ALT 13 Alkaline Phosphatase 77 Total Protein 6.8 Albumin 3.9 01/03/24 01/03/24 01/04/24 19:37 20:06 05:59 Sodium Potassium Chloride Carbon Dioxide Anion Gap BUN Creatinine Estim Creat Clear Calc Estimated GFR POC Glucose 173 H 192 H 122 H Fasting Glucose Estimat Average Glucose Hemoglobin A1c % Calcium Total Bilirubin AST ALT Alkaline Phosphatase Total Protein Albumin Imaging Radiology Impressions: ITS Impressions Brain MRI 04/03/23 15:30 IMPRESSION: No acute infarct, mass lesion, intracranial hemorrhage, or evidence of hydrocephalus. Mild nonspecific T2/FLAIR hyperintensity in the cerebral white matter and danny presumably on the basis of chronic microangiopathy. Cervical Spine CT 07/03/23 20:12 IMPRESSION: No acute findings within the cervical spine. The cervical central canal is not well assessed on this CT due to artifact. If weakness persists, a cervical spine MRI would be more sensitive in assessment. Medications Medications Current Medications Acetaminophen (Acetaminophen 325 Mg Tablet) 650 mg PO Q6H PRN PRN Reason: Pain, Mild (Pain Scale 1-3) Last Admin: 12/26/23 22:05 Dose: 650 mg Amphetamine/Dextroamphetamine (Amphetamine Mixed Salts 10 Mg Tablet) 5 mg PO BID@0800,1500 [facility] Bisacodyl (Bisacodyl 5 Mg Tablet.Dr) 10 mg PO DAILY PRN PRN Reason: Constipation Last Admin: 10/13/23 23:19 Dose: 10 mg Docusate Sodium (Docusate Sodium 100 Mg Capsule) 100 mg PO BID [facility] Last Admin: 01/04/24 10:28 Dose: 100 mg Guaifenesin (Guaifenesin La 600 Mg Tab.Er.12h) 600 mg PO BID PRN PRN Reason: Cough Last Admin: 11/02/23 21:54 Dose: 600 mg Haloperidol (Haloperidol 1 Mg Tablet) 1 mg PO Q4H PRN PRN Reason: Hallucinations Last Admin: 01/03/24 02:44 Dose: 1 mg Haloperidol (Haloperidol 1 Mg Tablet) 1 mg PO BID@0830,1630 [facility] [place] Last Admin: 01/04/24 10:28 Dose: 1 mg Insulin Glargine (Insulin Glargine,Hum.Rec.Anlog 100 Unit/Ml 10 Ml Vial) 6 unit SUBCUT DAILY [facility] Last Admin: 01/04/24 10:28 Dose: 6 unit Magnesium Oxide (Magnesium Oxide 400 Mg Tablet) 400 mg PO BIDPC [facility] Last Admin: 01/04/24 10:28 Dose: 400 mg Melatonin (Melatonin 3 Mg Tablet) 6 mg PO BEDTIME [facility] Last Admin: 01/03/24 21:04 Dose: 6 mg Memantine (Memantine Hcl 10 Mg Tablet) 10 mg PO BID [facility] Last Admin: 01/04/24 10:28 Dose: 10 mg Polyethylene Glycol (Polyethylene Glycol 3350 17 Gm Powd.Pack) 17 gm PO DAILY [facility] Last Admin: 01/03/24 08:52 Dose: 17 gm Senna (Sennosides 8.6 Mg Tablet) 17.2 mg PO BEDTIME [facility] Last Admin: 01/03/24 21:04 Dose: 17.2 mg Sertraline HCl (Sertraline Hcl 50 Mg Tablet) 150 mg PO DAILY [facility] Last Admin: 01/04/24 10:28 Dose: 150 mg Trazodone HCl (Trazodone Hcl 50 Mg Tablet) 50 mg PO BEDTIME MRX1 PRN PRN Reason: Sleep Last Admin: 01/03/24 21:04 Dose: 50 mg Allergies Allergies Allergy/AdvReac Type Severity Reaction Status Date / Time No Known Allergies Allergy Verified 03/23/23 18:13 Assessment & Plan Assessment & Plan (1) Alzheimer's dementia: Status: Acute Code(s): G30.9 - Alzheimer's disease, unspecified; F02.80 - Dementia in other diseases classified elsewhere, unspecified severity, without behavioral disturbance, psychotic disturbance, mood disturbance, and anxiety Assessment and Plan: August 24 58 years old woman with relative young age onset at Alzheimer dementia but overall clinical picture is affected by significant depression, which continues to be the predominant feature of for clinical picture. Conventional dementia medicines such as donepezil or memantine can be tried but usually do not make significant difference. I would suggest memantine 10 mg twice a day and donepezil 10 mg daily. Recently a new dementia at drug for Alzheimer was approved but only for relatively mild dementia or mild cognitive impairment type of patients. She would not qualify for that drug. 10/18 Patient sitting in chair in the day room, head leaning over to 1 side, resting. When asked how she is doing she says that she has diabetes and that she takes meds for that. 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 Staff reports no changes in behavior but seems to have more frequent lucid moments. 10/27 continue tx. hold adderall due to increase irritability now that she is covid positive. 10/29: symptomatic of COVID - URI Sx. VSS. no change in mental health presentation. continue current mgmt. 10/30: continues laid low by COVID. psych presentation essentially unchanged. continue current mgmt, monitor VS. 10/31 continue tx. 11/05 CTP no change 11/06/23 - CTP 11/11/2023: No changes 11/12/2023: No changes to current plan 12/08 continue tx. 12/08: no changes 12/09: no changes 12/11 continue tx. 12/16/23 Continue tx. 12/17/23 Continue tx. 12/23: Continue current regimen and plans 12/24: Continue current regimen and plans 12/25: Continue current plans and regimen Plan 1. Continue with current treatment. 2. Waiting for placement. Plan Plan continue with same treatment Reason for continued inpatient stay Substantial Risk for: inability to function, rapid decompensation and med/psych decompensation Time Spent With Patient Time: Total time managing care of this patient today _20___ minutes.
[2024-01-04] MEDS: polyethylene glycoL 3350 17 GM POWD.PACK PO (11:47)
[2024-01-04 19:36] LABS: Glucose, Whole Blood 192 mg/dL (60-115)
[2024-01-04] MEDS: traZODone HCL 50 MG TABLET PO (20:55)
[2024-01-04] MEDS: Melatonin 3 MG TABLET 6 MG PO (20:55)
[2024-01-04] MEDS: Sennosides 8.6 MG TABLET 17.2 MG PO (20:55)
[2024-01-04 21:43] VITALS: BP 134/66; PULSE 68; RESP 18; TEMP 36.8; O2SAT 100
[2024-01-05 06:25] LABS: Glucose, Whole Blood 116 mg/dL (60-115)
[2024-01-05 08:23] VITALS: BP 105/51; PULSE 61; RESP 16; TEMP 36.6; O2SAT 98
[2024-01-05] MEDS: polyethylene glycoL 3350 17 GM POWD.PACK PO (08:26)
[2024-01-05] MEDS: Insulin Glargine,Hum.rec.anlog 100 UNIT/ML 10 ML VIAL 6 UNIT SUBCUT (08:26)
[2024-01-05] MEDS: Docusate Sodium 100 MG CAPSULE PO ×2 (08:26→22:19)
[2024-01-05] MEDS: Magnesium Oxide 400 MG TABLET PO ×2 (08:26→16:46)
[2024-01-05] MEDS: Sertraline HCL 50 MG TABLET 150 MG PO (08:26)
[2024-01-05] MEDS: HaloperidoL 1 MG TABLET PO ×2 (08:26→16:46)
[2024-01-05] MEDS: Memantine HCl 10 MG TABLET PO ×2 (08:26→22:20)
--- NOTE | 2024-01-05 08:30 | P.PNPSI_ITS ---
Subjective Subjective Date of Service: 01/05/24 Reason For Visit: hallucinations confusion Subjective Notes: Conditional Voluntary Interim History: pt slept 7hrs. VS stable. She is taking medications as prescribed. No behavioral concerns. She is more talkative and spontaneous in her speech. No delusions. No VH/AH. awaiting placement. Review of Systems Review of Systems unremarkable Yes all other systems are reviewed and are negative and Unobtainable due to mental status Constitutional: Reports as per HPI, Denies chills, Denies fatigue, Denies fever(s) and Denies headache(s) Denies headache(s) Cardiovascular: Denies chest pain and Denies dyspnea Respiratory: Denies cough and Denies dyspnea Gastrointestinal: Denies abdominal pain, Denies constipation and Denies vomiting Denies headache(s) and Denies focal weakness Psychiatric: Denies auditory hallucinations, Reports hallucinations (Per the patient's daughter. Patient denies this), Denies tactile hallucinations and Denies suicidal ideation Endocrine: Denies fatigue Mental Status Exam Mental Status Exam Patient Appearance: Well Grooomed and Appropriate Patient Orientation: Person and Situation Level of Consciousness: Awake Patient Behavior: Guarded and Passive Behavior Comments: Eyes remain closed Mood Description: Calm Affect Description: Constricted Patient Cognition Impaired: Yes Ability to Follow Directions: Good Speech Pattern: Clear Memory Description: Working Impaired Diagnostics Vital Signs (24Hr): Vital Signs - 24 hr 01/04/24 09:55 01/04/24 21:43 01/05/24 08:23 Temperature 98 F 98.3 F 97.8 F Pulse Rate 72 68 61 Respiratory Rate 14 18 16 Blood Pressure 165/73 H 134/66 105/51 L Pulse Oximetry 97 100 98 Oxygen Delivery Method Room Air Room Air Room Air BMI result Body Mass Index 27.9 Labs 11/13/23 08:28 01/03/24 07:55 Labs: Laboratory Results - last 48 hr 01/03/24 01/03/24 01/04/24 19:37 20:06 05:59 POC Glucose 173 H 192 H 122 H 01/04/24 01/05/24 19:32 06:09 POC Glucose 192 H 116 H Imaging Radiology Impressions: ITS Impressions Brain MRI 04/03/23 15:30 IMPRESSION: No acute infarct, mass lesion, intracranial hemorrhage, or evidence of hydrocephalus. Mild nonspecific T2/FLAIR hyperintensity in the cerebral white matter and danny presumably on the basis of chronic microangiopathy. Cervical Spine CT 07/03/23 20:12 IMPRESSION: No acute findings within the cervical spine. The cervical central canal is not well assessed on this CT due to artifact. If weakness persists, a cervical spine MRI would be more sensitive in assessment. Medications Medications Current Medications Acetaminophen (Acetaminophen 325 Mg Tablet) 650 mg PO Q6H PRN PRN Reason: Pain, Mild (Pain Scale 1-3) Last Admin: 12/26/23 22:05 Dose: 650 mg Amphetamine/Dextroamphetamine (Amphetamine Mixed Salts 10 Mg Tablet) 5 mg PO BID@0800,1500 [facility] Docusate Sodium (Docusate Sodium 100 Mg Capsule) 100 mg PO BID [facility] Last Admin: 01/05/24 08:26 Dose: 100 mg Guaifenesin (Guaifenesin La 600 Mg Tab.Er.12h) 600 mg PO BID PRN PRN Reason: Cough Last Admin: 11/02/23 21:54 Dose: 600 mg Haloperidol (Haloperidol 1 Mg Tablet) 1 mg PO Q4H PRN PRN Reason: Hallucinations Last Admin: 01/03/24 02:44 Dose: 1 mg Haloperidol (Haloperidol 1 Mg Tablet) 1 mg PO BID@0830,1630 [facility] Last Admin: 01/05/24 08:26 Dose: 1 mg Insulin Glargine (Insulin Glargine,Hum.Rec.Anlog 100 Unit/Ml 10 Ml Vial) 6 unit SUBCUT DAILY [facility] Last Admin: 01/05/24 08:26 Dose: 6 unit Magnesium Oxide (Magnesium Oxide 400 Mg Tablet) 400 mg PO BIDPC [facility] Last Admin: 01/05/24 08:26 Dose: 400 mg Melatonin (Melatonin 3 Mg Tablet) 6 mg PO BEDTIME [facility] Last Admin: 01/04/24 20:55 Dose: 6 mg Memantine (Memantine Hcl 10 Mg Tablet) 10 mg PO BID [facility] Last Admin: 01/05/24 08:26 Dose: 10 mg Polyethylene Glycol (Polyethylene Glycol 3350 17 Gm Powd.Pack) 17 gm PO DAILY [facility] Last Admin: 01/05/24 08:26 Dose: 17 gm Senna (Sennosides 8.6 Mg Tablet) 17.2 mg PO BEDTIME [facility] Last Admin: 01/04/24 20:55 Dose: 17.2 mg Sertraline HCl (Sertraline Hcl 50 Mg Tablet) 150 mg PO DAILY [facility] Last Admin: 01/05/24 08:26 Dose: 150 mg Allergies Allergies Allergy/AdvReac Type Severity Reaction Status Date / Time No Known Allergies Allergy Verified 03/23/23 18:13 Assessment & Plan Assessment & Plan (1) Alzheimer's dementia: Status: Acute Code(s): G30.9 - Alzheimer's disease, unspecified; F02.80 - Dementia in other diseases classified elsewhere, unspecified severity, without behavioral disturbance, psychotic disturbance, mood disturbance, and anxiety Assessment and Plan: August 24 58 years old woman with relative young age onset at Alzheimer dementia but overall clinical picture is affected by significant depression, which continues to be the predominant feature of for clinical picture. Conventional dementia medicines such as donepezil or memantine can be tried but usually do not make significant difference. I would suggest memantine 10 mg twice a day and donepezil 10 mg daily. Recently a new dementia at drug for Alzheimer was approved but only for relatively mild dementia or mild cognitive impairment type of patients. She would not qualify for that drug. 10/18 Patient sitting in chair in the day room, head leaning over to 1 side, resting. When asked how she is doing she says that she has diabetes and that she takes meds for that. 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 Staff reports no changes in behavior but seems to have more frequent lucid moments. 10/27 continue tx. hold adderall due to increase irritability now that she is covid positive. 10/29: symptomatic of COVID - URI Sx. VSS. no change in mental health presentation. continue current mgmt. 10/30: continues laid low by COVID. psych presentation essentially unchanged. continue current mgmt, monitor VS. 10/31 continue tx. 11/05 CTP no change 11/06/23 - CTP 11/11/2023: No changes 11/12/2023: No changes to current plan 12/08 continue tx. 12/08: no changes 12/09: no changes 12/11 continue tx. 12/16/23 Continue tx. 12/17/23 Continue tx. 12/23: Continue current regimen and plans 12/24: Continue current regimen and plans 12/25: Continue current plans and regimen 01/04 continue tx. Plan 1. Continue with current treatment. 2. Waiting for placement. Plan Plan continue with same treatment Reason for continued inpatient stay Substantial Risk for: inability to function Time Spent With Patient Time: Total time managing care of this patient today ____ minutes.
[2024-01-05 18:00] VITALS: BP 120/66; PULSE 67; RESP 16; TEMP 36.8; O2SAT 97
[2024-01-05] MEDS: Sennosides 8.6 MG TABLET 17.2 MG PO (22:19)
[2024-01-05] MEDS: Melatonin 3 MG TABLET 6 MG PO (22:19)
[2024-01-06] MEDS: Acetaminophen 325 MG TABLET 650 MG PO ×2 (04:52→19:58)
[2024-01-06] MEDS: HaloperidoL 1 MG TABLET PO ×3 (04:52→16:31)
[2024-01-06 06:38] LABS: Glucose, Whole Blood 129 mg/dL (60-115)
[2024-01-06 07:55] VITALS: BP 116/65; PULSE 60; RESP 18; TEMP 36.2; O2SAT 96
[2024-01-06] MEDS: Insulin Glargine,Hum.rec.anlog 100 UNIT/ML 10 ML VIAL 6 UNIT SUBCUT (08:51)
[2024-01-06] MEDS: Memantine HCl 10 MG TABLET PO ×2 (08:52→20:00)
[2024-01-06] MEDS: Sertraline HCL 50 MG TABLET 150 MG PO (08:52)
[2024-01-06] MEDS: Docusate Sodium 100 MG CAPSULE PO ×2 (08:53→20:00)
[2024-01-06] MEDS: Magnesium Oxide 400 MG TABLET PO ×2 (08:53→16:31)
[2024-01-06] MEDS: polyethylene glycoL 3350 17 GM POWD.PACK PO (08:53)
--- NOTE | 2024-01-06 11:21 | P.PNPSI_ITS ---
Subjective Subjective Date of Service: 01/06/24 Reason For Visit: hallucinations confusion Interim History: calm, cooperative. pleasant. asking about discharge. no questions or complaints. per staff, no change in presentation. Mental Status Exam Mental Status Exam Patient Appearance: Well Grooomed and Appropriate Patient Orientation: Person and Situation Level of Consciousness: Awake Patient Behavior: Guarded and Passive Mood Description: Calm Affect Description: Calm and Appropriate Patient Cognition Impaired: Yes Ability to Follow Directions: Good Speech Pattern: Clear Memory Description: Working Impaired Diagnostics Vital Signs (24Hr): Vital Signs - 24 hr 01/05/24 18:00 01/06/24 07:55 Temperature 98.3 F 97.1 F Pulse Rate 67 60 Respiratory Rate 16 18 Blood Pressure 120/66 116/65 Pulse Oximetry 97 96 Oxygen Delivery Method Room Air Room Air BMI result Body Mass Index 27.9 Labs 11/13/23 08:28 01/03/24 07:55 Labs: Laboratory Results - last 48 hr 01/04/24 01/05/24 01/06/24 19:32 06:09 06:32 POC Glucose 192 H 116 H 129 H Imaging Radiology Impressions: ITS Impressions Brain MRI 04/03/23 15:30 IMPRESSION: No acute infarct, mass lesion, intracranial hemorrhage, or evidence of hydrocephalus. Mild nonspecific T2/FLAIR hyperintensity in the cerebral white matter and danny presumably on the basis of chronic microangiopathy. Cervical Spine CT 07/03/23 20:12 IMPRESSION: No acute findings within the cervical spine. The cervical central canal is not well assessed on this CT due to artifact. If weakness persists, a cervical spine MRI would be more sensitive in assessment. Medications Medications Current Medications Acetaminophen (Acetaminophen 325 Mg Tablet) 650 mg PO Q6H PRN PRN Reason: Pain, Mild (Pain Scale 1-3) Last Admin: 01/06/24 04:52 Dose: 650 mg Amphetamine/Dextroamphetamine (Amphetamine Mixed Salts 10 Mg Tablet) 5 mg PO BID@0800,1500 [facility] Docusate Sodium (Docusate Sodium 100 Mg Capsule) 100 mg PO BID BEN Last Admin: 01/06/24 08:53 Dose: 100 mg Guaifenesin (Guaifenesin La 600 Mg Tab.Er.12h) 600 mg PO BID PRN PRN Reason: Cough Last Admin: 11/02/23 21:54 Dose: 600 mg Haloperidol (Haloperidol 1 Mg Tablet) 1 mg PO Q4H PRN PRN Reason: Hallucinations Last Admin: 01/06/24 04:52 Dose: 1 mg Haloperidol (Haloperidol 1 Mg Tablet) 1 mg PO BID@0830,1630 [facility] Last Admin: 01/06/24 08:53 Dose: 1 mg Insulin Glargine (Insulin Glargine,Hum.Rec.Anlog 100 Unit/Ml 10 Ml Vial) 6 unit SUBCUT DAILY [facility] Last Admin: 01/06/24 08:51 Dose: 6 unit Magnesium Oxide (Magnesium Oxide 400 Mg Tablet) 400 mg PO BIDPC [facility] Last Admin: 01/06/24 08:53 Dose: 400 mg Melatonin (Melatonin 3 Mg Tablet) 6 mg PO BEDTIME [facility] Last Admin: 01/05/24 22:19 Dose: 6 mg Memantine (Memantine Hcl 10 Mg Tablet) 10 mg PO BID [facility] Last Admin: 01/06/24 08:52 Dose: 10 mg Polyethylene Glycol (Polyethylene Glycol 3350 17 Gm Powd.Pack) 17 gm PO DAILY [facility] Last Admin: 01/06/24 08:53 Dose: 17 gm Senna (Sennosides 8.6 Mg Tablet) 17.2 mg PO BEDTIME [facility] Last Admin: 01/05/24 22:19 Dose: 17.2 mg Sertraline HCl (Sertraline Hcl 50 Mg Tablet) 150 mg PO DAILY [facility] Last Admin: 01/06/24 08:52 Dose: 150 mg Allergies Allergies Allergy/AdvReac Type Severity Reaction Status Date / Time No Known Allergies Allergy Verified 03/23/23 18:13 Assessment & Plan Assessment & Plan (1) Alzheimer's dementia: Status: Acute Code(s): G30.9 - Alzheimer's disease, unspecified; F02.80 - Dementia in other diseases classified elsewhere, unspecified severity, without behavioral disturbance, psychotic disturbance, mood disturbance, and anxiety Assessment and Plan: August 24 58 years old woman with relative young age onset at Alzheimer dementia but overall clinical picture is affected by significant depression, which continues to be the predominant feature of for clinical picture. Conventional dementia medicines such as donepezil or memantine can be tried but usually do not make significant difference. I would suggest memantine 10 mg twice a day and donepezil 10 mg daily. Recently a new dementia at drug for Alzheimer was approved but only for relatively mild dementia or mild cognitive impairment type of patients. She would not qualify for that drug. 12/13 Patient sitting in chair in the day room, head leaning over to 1 side, resting. When asked how she is doing she says that she has diabetes and that she takes meds for that. 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 Staff reports no changes in behavior but seems to have more frequent lucid moments. 10/27 continue tx. hold adderall due to increase irritability now that she is covid positive. 10/29: symptomatic of COVID - URI Sx. VSS. no change in mental health presentation. continue current mgmt. 10/30: continues laid low by COVID. psych presentation essentially unchanged. continue current mgmt, monitor VS. 10/31 continue tx. 11/05 CTP no change 11/06/23 - CTP 11/11/2023: No changes 11/12/2023: No changes to current plan 12/08 continue tx. 12/08: no changes 12/09: no changes 12/11 continue tx. 12/16/23 Continue tx. 12/17/23 Continue tx. 12/23: Continue current regimen and plans 12/24: Continue current regimen and plans 12/25: Continue current plans and regimen 01/04 continue tx. 01/05: stable. continue current mgmt. Plan 1. Continue with current treatment. 2. Waiting for placement. Plan Plan continue with same treatment Reason for continued inpatient stay Substantial Risk for: inability to function Time Spent With Patient Time: Total time managing care of this patient today ____ minutes.
[2024-01-06 18:00] VITALS: BP 145/64; PULSE 95; RESP 18; TEMP 36.3; O2SAT 97
[2024-01-06] MEDS: Sennosides 8.6 MG TABLET 17.2 MG PO (19:59)
[2024-01-06] MEDS: Melatonin 3 MG TABLET 6 MG PO (19:59)
[2024-01-06 20:19] LABS: Glucose, Whole Blood 124 mg/dL (60-115)
[2024-01-07 06:32] LABS: Glucose, Whole Blood 119 mg/dL (60-115)
[2024-01-07] MEDS: HaloperidoL 1 MG TABLET PO ×2 (06:59→16:35)
[2024-01-07] MEDS: Acetaminophen 325 MG TABLET 650 MG PO (07:00)
[2024-01-07 07:55] VITALS: BP 139/63; PULSE 60; RESP 18; TEMP 36.5; O2SAT 99
[2024-01-07] MEDS: Magnesium Oxide 400 MG TABLET PO ×2 (08:43→16:35)
[2024-01-07] MEDS: Memantine HCl 10 MG TABLET PO ×2 (08:43→21:06)
[2024-01-07] MEDS: Docusate Sodium 100 MG CAPSULE PO ×2 (08:43→21:06)
[2024-01-07] MEDS: Sertraline HCL 50 MG TABLET 150 MG PO (08:43)
[2024-01-07] MEDS: Insulin Glargine,Hum.rec.anlog 100 UNIT/ML 10 ML VIAL 6 UNIT SUBCUT (08:44)
[2024-01-07] MEDS: polyethylene glycoL 3350 17 GM POWD.PACK PO (08:44)
--- NOTE | 2024-01-07 11:02 | P.PNPSI_ITS ---
Subjective Subjective Date of Service: 01/07/24 Reason For Visit: hallucinations confusion Interim History: pleasant, bright. no concerns apart from when she might be discharged. referred to speak with primary team. per staff, no change in presentation. slept well. Mental Status Exam Mental Status Exam Patient Appearance: Well Grooomed and Appropriate Patient Orientation: Person and Situation Level of Consciousness: Awake Patient Behavior: Guarded and Passive Mood Description: Calm Affect Description: Calm and Appropriate Patient Cognition Impaired: Yes Ability to Follow Directions: Good Speech Pattern: Clear Memory Description: Working Impaired Diagnostics Vital Signs (24Hr): Vital Signs - 24 hr 01/06/24 18:00 01/07/24 07:55 Temperature 97.4 F 97.7 F Pulse Rate 95 60 Respiratory Rate 18 18 Blood Pressure 145/64 H 139/63 Pulse Oximetry 97 99 Oxygen Delivery Method Room Air Room Air BMI result Body Mass Index 27.9 Labs 11/13/23 08:28 01/03/24 07:55 Labs: Laboratory Results - last 48 hr 01/06/24 01/06/24 01/07/24 06:32 20:05 06:02 POC Glucose 129 H 124 H 119 H Imaging Radiology Impressions: ITS Impressions Brain MRI 04/03/23 15:30 IMPRESSION: No acute infarct, mass lesion, intracranial hemorrhage, or evidence of hydrocephalus. Mild nonspecific T2/FLAIR hyperintensity in the cerebral white matter and danny presumably on the basis of chronic microangiopathy. Cervical Spine CT 07/03/23 20:12 IMPRESSION: No acute findings within the cervical spine. The cervical central canal is not well assessed on this CT due to artifact. If weakness persists, a cervical spine MRI would be more sensitive in assessment. Medications Medications Current Medications Acetaminophen (Acetaminophen 325 Mg Tablet) 650 mg PO Q6H PRN PRN Reason: Pain, Mild (Pain Scale 1-3) Last Admin: 01/07/24 07:00 Dose: 650 mg Amphetamine/Dextroamphetamine (Amphetamine Mixed Salts 10 Mg Tablet) 5 mg PO BID@0800,1500 [facility] Docusate Sodium (Docusate Sodium 100 Mg Capsule) 100 mg PO BID BEN Last Admin: 01/07/24 08:43 Dose: 100 mg Guaifenesin (Guaifenesin La 600 Mg Tab.Er.12h) 600 mg PO BID PRN PRN Reason: Cough Last Admin: 11/02/23 21:54 Dose: 600 mg Haloperidol (Haloperidol 1 Mg Tablet) 1 mg PO Q4H PRN PRN Reason: Hallucinations Last Admin: 01/07/24 06:59 Dose: 1 mg Haloperidol (Haloperidol 1 Mg Tablet) 1 mg PO BID@0830,1630 [facility] Last Admin: 01/07/24 08:43 Dose: Not Given Hydroxyzine HCl (Hydroxyzine Hcl 25 Mg Tablet) 25 mg PO Q6H PRN PRN Reason: anxiety/restlessness Insulin Glargine (Insulin Glargine,Hum.Rec.Anlog 100 Unit/Ml 10 Ml Vial) 6 unit SUBCUT DAILY [facility] Last Admin: 01/07/24 08:44 Dose: 6 unit Magnesium Oxide (Magnesium Oxide 400 Mg Tablet) 400 mg PO BIDPC [facility] Last Admin: 01/07/24 08:43 Dose: 400 mg Melatonin (Melatonin 3 Mg Tablet) 6 mg PO BEDTIME [facility] Last Admin: 01/06/24 19:59 Dose: 6 mg Memantine (Memantine Hcl 10 Mg Tablet) 10 mg PO BID [facility] Last Admin: 01/07/24 08:43 Dose: 10 mg Polyethylene Glycol (Polyethylene Glycol 3350 17 Gm Powd.Pack) 17 gm PO DAILY [facility] Last Admin: 01/07/24 08:44 Dose: 17 gm Senna (Sennosides 8.6 Mg Tablet) 17.2 mg PO BEDTIME [facility] Last Admin: 01/06/24 19:59 Dose: 17.2 mg Sertraline HCl (Sertraline Hcl 50 Mg Tablet) 150 mg PO DAILY [facility] Last Admin: 01/07/24 08:43 Dose: 150 mg Trazodone HCl (Trazodone Hcl 50 Mg Tablet) 50 mg PO BEDTIME PRN PRN Reason: Insomnia Allergies Allergies Allergy/AdvReac Type Severity Reaction Status Date / Time No Known Allergies Allergy Verified 03/23/23 18:13 Assessment & Plan Assessment & Plan (1) Alzheimer's dementia: Status: Acute Code(s): G30.9 - Alzheimer's disease, unspecified; F02.80 - Dementia in other diseases classified elsewhere, unspecified severity, without behavioral disturbance, psychotic disturbance, mood disturbance, and anxiety Assessment and Plan: August 24 58 years old woman with relative young age onset at Alzheimer dementia but overall clinical picture is affected by significant depression, which continues to be the predominant feature of for clinical picture. Conventional dementia medicines such as donepezil or memantine can be tried but usually do not make significant difference. I would suggest memantine 10 mg twice a day and donepezil 10 mg daily. Recently a new dementia at drug for Alzheimer was approved but only for relatively mild dementia or mild cognitive impairment type of patients. She would not qualify for that drug. 10/18 Patient sitting in chair in the day room, head leaning over to 1 side, resting. When asked how she is doing she says that she has diabetes and that she takes meds for that. 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 Staff reports no changes in behavior but seems to have more frequent lucid moments. 10/27 continue tx. hold adderall due to increase irritability now that she is covid positive. 10/29: symptomatic of COVID - URI Sx. VSS. no change in mental health presentation. continue current mgmt. 10/30: continues laid low by COVID. psych presentation essentially unchanged. continue current mgmt, monitor VS. 10/31 continue tx. 11/05 CTP no change 11/06/23 - CTP 11/11/2023: No changes 11/12/2023: No changes to current plan / continue tx. 12/08: no changes 12/09: no changes 12/11 continue tx. 12/16/23 Continue tx. 12/17/23 Continue tx. 12/23: Continue current regimen and plans 12/24: Continue current regimen and plans 12/25: Continue current plans and regimen 01/04 continue tx. 01/05: stable. continue current mgmt. 01/06: stable. continue current mgmt. Plan 1. Continue with current treatment. 2. Waiting for placement. Plan Plan continue with same treatment Reason for continued inpatient stay Substantial Risk for: inability to function Time Spent With Patient Time: Total time managing care of this patient today ____ minutes.
[2024-01-07 18:00] VITALS: BP 121/68; PULSE 70; RESP 16; TEMP 35.9; O2SAT 99
[2024-01-07 20:53] LABS: Glucose, Whole Blood 129 mg/dL (60-115)
[2024-01-07] MEDS: Melatonin 3 MG TABLET 6 MG PO (21:06)
[2024-01-07] MEDS: traZODone HCL 50 MG TABLET PO (21:06)
[2024-01-07] MEDS: Sennosides 8.6 MG TABLET 17.2 MG PO (21:06)
[2024-01-08 06:00] VITALS: BP 141/67; PULSE 64; TEMP 36; O2SAT 99
[2024-01-08 06:39] LABS: Glucose, Whole Blood 95 mg/dL (60-115)
[2024-01-08] MEDS: Docusate Sodium 100 MG CAPSULE PO ×2 (08:29→21:25)
[2024-01-08] MEDS: Sertraline HCL 50 MG TABLET 150 MG PO (08:29)
[2024-01-08] MEDS: HaloperidoL 1 MG TABLET PO ×3 (08:29→21:26)
[2024-01-08] MEDS: Memantine HCl 10 MG TABLET PO ×2 (08:29→21:26)
[2024-01-08] MEDS: polyethylene glycoL 3350 17 GM POWD.PACK PO (08:30)
[2024-01-08] MEDS: Magnesium Oxide 400 MG TABLET PO ×2 (08:30→17:03)
[2024-01-08] MEDS: Insulin Glargine,Hum.rec.anlog 100 UNIT/ML 10 ML VIAL 6 UNIT SUBCUT (08:30)
--- NOTE | 2024-01-08 13:44 | P.PNPSI_ITS ---
Subjective Subjective Date of Service: 01/08/24 Reason For Visit: hallucinations confusion Subjective Notes: Conditional Voluntary Interim History: The nursing staff reported the patient had been compliant with treatment she remains confused but easily redirectable no new outburst she slept well last night. On interview the patient denies new symptoms, waiting for placement. Mental Status Exam Mental Status Exam Patient Appearance: Well Grooomed and Appropriate Patient Orientation: Person and Situation Level of Consciousness: Awake and Appropriate Patient Behavior: Guarded and Passive Mood Description: Withdrawn Affect Description: Constricted Patient Cognition Impaired: Yes Ability to Follow Directions: Good Speech Pattern: Clear Hallucinations: None Delusions: Not Present Thought Process: Linear Thought Content: positive for [place] and positive for Poverty of Content Judgement: Fair Diagnostics Vital Signs (24Hr): Vital Signs - 24 hr 01/07/24 18:00 01/08/24 06:00 Temperature 96.6 F L 96.8 F Pulse Rate 70 64 Respiratory Rate 16 Blood Pressure 121/68 141/67 H Pulse Oximetry 99 99 Oxygen Delivery Method Room Air BMI result Body Mass Index 27.9 Labs 11/13/23 08:28 01/03/24 07:55 Labs: Laboratory Results - last 48 hr 01/06/24 01/07/24 01/07/24 20:05 06:02 20:11 POC Glucose 124 H 119 H 129 H 01/08/24 06:08 POC Glucose 95 Imaging Radiology Impressions: ITS Impressions Brain MRI 04/03/23 15:30 IMPRESSION: No acute infarct, mass lesion, intracranial hemorrhage, or evidence of hydrocephalus. Mild nonspecific T2/FLAIR hyperintensity in the cerebral white matter and danny presumably on the basis of chronic microangiopathy. Cervical Spine CT 07/03/23 20:12 IMPRESSION: No acute findings within the cervical spine. The cervical central canal is not well assessed on this CT due to artifact. If weakness persists, a cervical spine MRI would be more sensitive in assessment. Medications Medications Current Medications Acetaminophen (Acetaminophen 325 Mg Tablet) 650 mg PO Q6H PRN PRN Reason: Pain, Mild (Pain Scale 1-3) Last Admin: 01/07/24 07:00 Dose: 650 mg Amphetamine/Dextroamphetamine (Amphetamine Mixed Salts 10 Mg Tablet) 5 mg PO BID@0800,1500 [facility] Docusate Sodium (Docusate Sodium 100 Mg Capsule) 100 mg PO BID [facility] Last Admin: 01/08/24 08:29 Dose: 100 mg Guaifenesin (Guaifenesin La 600 Mg Tab.Er.12h) 600 mg PO BID PRN PRN Reason: Cough Last Admin: 11/02/23 21:54 Dose: 600 mg Haloperidol (Haloperidol 1 Mg Tablet) 1 mg PO Q4H PRN PRN Reason: Hallucinations Last Admin: 01/07/24 06:59 Dose: 1 mg Haloperidol (Haloperidol 1 Mg Tablet) 1 mg PO BID@0830,1630 [facility] Last Admin: 01/08/24 08:29 Dose: 1 mg Hydroxyzine HCl (Hydroxyzine Hcl 25 Mg Tablet) 25 mg PO Q6H PRN PRN Reason: anxiety/restlessness Insulin Glargine (Insulin Glargine,Hum.Rec.Anlog 100 Unit/Ml 10 Ml Vial) 6 unit SUBCUT DAILY [facility] Last Admin: 01/08/24 08:30 Dose: 6 unit Magnesium Oxide (Magnesium Oxide 400 Mg Tablet) 400 mg PO BIDPC [facility] Last Admin: 01/08/24 08:30 Dose: 400 mg Melatonin (Melatonin 3 Mg Tablet) 6 mg PO BEDTIME [facility] Last Admin: 01/07/24 21:06 Dose: 6 mg Memantine (Memantine Hcl 10 Mg Tablet) 10 mg PO BID [facility] Last Admin: 01/08/24 08:29 Dose: 10 mg Polyethylene Glycol (Polyethylene Glycol 3350 17 Gm Powd.Pack) 17 gm PO DAILY [facility] Last Admin: 01/08/24 08:30 Dose: 17 gm Senna (Sennosides 8.6 Mg Tablet) 17.2 mg PO BEDTIME [facility] Last Admin: 01/07/24 21:06 Dose: 17.2 mg Sertraline HCl (Sertraline Hcl 50 Mg Tablet) 150 mg PO DAILY [facility] Last Admin: 01/08/24 08:29 Dose: 150 mg Trazodone HCl (Trazodone Hcl 50 Mg Tablet) 50 mg PO BEDTIME PRN PRN Reason: Insomnia Last Admin: 01/07/24 21:06 Dose: 50 mg Allergies Allergies Allergy/AdvReac Type Severity Reaction Status Date / Time No Known Allergies Allergy Verified 03/23/23 18:13 Assessment & Plan Assessment & Plan (1) Alzheimer's dementia: Status: Acute Code(s): G30.9 - Alzheimer's disease, unspecified; F02.80 - Dementia in other diseases classified elsewhere, unspecified severity, without behavioral disturbance, psychotic disturbance, mood disturbance, and anxiety Assessment and Plan: August 24 58 years old woman with relative young age onset at Alzheimer dementia but overall clinical picture is affected by significant depression, which continues to be the predominant feature of for clinical picture. Conventional dementia medicines such as donepezil or memantine can be tried but usually do not make significant difference. I would suggest memantine 10 mg twice a day and donepezil 10 mg daily. Recently a new dementia at drug for Alzheimer was approved but only for relatively mild dementia or mild cognitive impairment type of patients. She would not qualify for that drug. 10/18 Patient sitting in chair in the day room, head leaning over to 1 side, resting. When asked how she is doing she says that she has diabetes and that she takes meds for that. 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 Staff reports no changes in behavior but seems to have more frequent lucid moments. 10/27 continue tx. hold adderall due to increase irritability now that she is covid positive. 10/29: symptomatic of COVID - URI Sx. VSS. no change in mental health presentation. continue current mgmt. 10/30: continues laid low by COVID. psych presentation essentially unchanged. continue current mgmt, monitor VS. 10/31 continue tx. 11/05 CTP no change 11/06/23 - CTP 11/11/2023: No changes 11/12/2023: No changes to current plan 12/08 continue tx. 12/08: no changes 12/09: no changes 12/11 continue tx. 12/16/23 Continue tx. 12/17/23 Continue tx. 12/23: Continue current regimen and plans 12/24: Continue current regimen and plans 12/25: Continue current plans and regimen 01/04 continue tx. 01/05: stable. continue current mgmt. 01/06: stable. continue current mgmt. Plan 1. Continue with current treatment. 2. Waiting for placement. Plan Plan continue with same treatment Reason for continued inpatient stay Substantial Risk for: inability to function, rapid decompensation and med/psych decompensation Time Spent With Patient Time: Total time managing care of this patient today __20__ minutes.
[2024-01-08 18:00] VITALS: BP 129/76; PULSE 96; RESP 16; TEMP 36.2; O2SAT 96
[2024-01-08 20:47] LABS: Glucose, Whole Blood 124 mg/dL (60-115)
[2024-01-08] MEDS: Sennosides 8.6 MG TABLET 17.2 MG PO (21:24)
[2024-01-08] MEDS: Melatonin 3 MG TABLET 6 MG PO (21:25)
[2024-01-08] MEDS: traZODone HCL 50 MG TABLET PO (21:26)
[2024-01-09 06:00] VITALS: BP 119/59; PULSE 62; RESP 16; TEMP 36.4; O2SAT 96
[2024-01-09 06:33] LABS: Glucose, Whole Blood 116 mg/dL (60-115)
--- NOTE | 2024-01-09 08:24 | HO.PSYCHPN ---
Subjective Subjective Date of Service: 01/09/24 Reason For Visit: hallucinations confusion Subjective Notes: Conditional Voluntary Interim History: The nursing staff reported the patient had been compliant with treatment, she slept well last night. She remains pleasantly confused easily redirectable. On interview the patient denies new symptoms, waiting for placement. Mental Status Exam Mental Status Exam Patient Appearance: Appropriate Patient Orientation: Person Level of Consciousness: Awake Patient Behavior: Guarded and Passive Mood Description: Withdrawn Affect Description: Constricted Patient Cognition Impaired: Yes Ability to Follow Directions: Good Speech Pattern: Clear Hallucinations: None Delusions: Not Present Thought Content: positive for [place], positive for Poverty of Content and positive for Thought Blocking Judgement: Fair Diagnostics Vital Signs (24Hr): Vital Signs - 24 hr 01/08/24 18:00 Temperature 97.2 F Pulse Rate 96 Respiratory Rate 16 Blood Pressure 129/76 Pulse Oximetry 96 Oxygen Delivery Method Room Air BMI result Body Mass Index 27.9 Labs 11/13/23 08:28 01/03/24 07:55 Labs: Laboratory Results - last 48 hr 01/07/24 01/08/24 01/08/24 20:11 06:08 19:48 POC Glucose 129 H 95 124 H 01/09/24 06:21 POC Glucose 116 H Imaging Radiology Impressions: ITS Impressions Brain MRI 04/03/23 15:30 IMPRESSION: No acute infarct, mass lesion, intracranial hemorrhage, or evidence of hydrocephalus. Mild nonspecific T2/FLAIR hyperintensity in the cerebral white matter and danny presumably on the basis of chronic microangiopathy. Cervical Spine CT 07/03/23 20:12 IMPRESSION: No acute findings within the cervical spine. The cervical central canal is not well assessed on this CT due to artifact. If weakness persists, a cervical spine MRI would be more sensitive in assessment. Medications Medications Current Medications Acetaminophen (Acetaminophen 325 Mg Tablet) 650 mg PO Q6H PRN PRN Reason: Pain, Mild (Pain Scale 1-3) Last Admin: 01/07/24 07:00 Dose: 650 mg Amphetamine/Dextroamphetamine (Amphetamine Mixed Salts 10 Mg Tablet) 5 mg PO BID@0800,1500 [facility] Docusate Sodium (Docusate Sodium 100 Mg Capsule) 100 mg PO BID [facility] Last Admin: 01/08/24 21:25 Dose: 100 mg Guaifenesin (Guaifenesin La 600 Mg Tab.Er.12h) 600 mg PO BID PRN PRN Reason: Cough Last Admin: 11/02/23 21:54 Dose: 600 mg Haloperidol (Haloperidol 1 Mg Tablet) 1 mg PO Q4H PRN PRN Reason: Hallucinations Last Admin: 01/08/24 21:26 Dose: 1 mg Haloperidol (Haloperidol 1 Mg Tablet) 1 mg PO BID@0830,1630 [facility] Last Admin: 01/08/24 17:03 Dose: 1 mg Hydroxyzine HCl (Hydroxyzine Hcl 25 Mg Tablet) 25 mg PO Q6H PRN PRN Reason: anxiety/restlessness Insulin Glargine (Insulin Glargine,Hum.Rec.Anlog 100 Unit/Ml 10 Ml Vial) 6 unit SUBCUT DAILY [facility] Last Admin: 01/08/24 08:30 Dose: 6 unit Magnesium Oxide (Magnesium Oxide 400 Mg Tablet) 400 mg PO BIDPC [facility] Last Admin: 01/08/24 17:03 Dose: 400 mg Melatonin (Melatonin 3 Mg Tablet) 6 mg PO BEDTIME [facility] Last Admin: 01/08/24 21:25 Dose: 6 mg Memantine (Memantine Hcl 10 Mg Tablet) 10 mg PO BID [facility] Last Admin: 01/08/24 21:26 Dose: 10 mg Polyethylene Glycol (Polyethylene Glycol 3350 17 Gm Powd.Pack) 17 gm PO DAILY [facility] Last Admin: 01/08/24 08:30 Dose: 17 gm Senna (Sennosides 8.6 Mg Tablet) 17.2 mg PO BEDTIME [facility] Last Admin: 01/08/24 21:24 Dose: 17.2 mg Sertraline HCl (Sertraline Hcl 50 Mg Tablet) 150 mg PO DAILY [facility] Last Admin: 01/08/24 08:29 Dose: 150 mg Trazodone HCl (Trazodone Hcl 50 Mg Tablet) 50 mg PO BEDTIME PRN PRN Reason: Insomnia Last Admin: 01/08/24 21:26 Dose: 50 mg Allergies Allergies Allergy/AdvReac Type Severity Reaction Status Date / Time No Known Allergies Allergy Verified 03/23/23 18:13 Assessment & Plan Assessment & Plan (1) Alzheimer's dementia: Status: Acute Code(s): G30.9 - Alzheimer's disease, unspecified; F02.80 - Dementia in other diseases classified elsewhere, unspecified severity, without behavioral disturbance, psychotic disturbance, mood disturbance, and anxiety Assessment and Plan: August 24 58 years old woman with relative young age onset at Alzheimer dementia but overall clinical picture is affected by significant depression, which continues to be the predominant feature of for clinical picture. Conventional dementia medicines such as donepezil or memantine can be tried but usually do not make significant difference. I would suggest memantine 10 mg twice a day and donepezil 10 mg daily. Recently a new dementia at drug for Alzheimer was approved but only for relatively mild dementia or mild cognitive impairment type of patients. She would not qualify for that drug. 10/18 Patient sitting in chair in the day room, head leaning over to 1 side, resting. When asked how she is doing she says that she has diabetes and that she takes meds for that. 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 Staff reports no changes in behavior but seems to have more frequent lucid moments. 10/27 continue tx. hold adderall due to increase irritability now that she is covid positive. 10/29: symptomatic of COVID - URI Sx. VSS. no change in mental health presentation. continue current mgmt. 10/30: continues laid low by COVID. psych presentation essentially unchanged. continue current mgmt, monitor VS. 10/31 continue tx. 11/05 CTP no change 11/06/23 - CTP 11/11/2023: No changes 11/12/2023: No changes to current plan 12/08 continue tx. 12/08: no changes 12/09: no changes 12/11 continue tx. 12/16/23 Continue tx. 12/17/23 Continue tx. 12/23: Continue current regimen and plans 12/24: Continue current regimen and plans 12/25: Continue current plans and regimen 01/04 continue tx. 01/05: stable. continue current mgmt. 01/06: stable. continue current mgmt. Plan 1. Continue with current treatment. 2. Waiting for placement. Plan Plan continue with same treatment Reason for continued inpatient stay Substantial Risk for: inability to function, rapid decompensation and med/psych decompensation Time Spent With Patient Time: Total time managing care of this patient today __20__ minutes.
[2024-01-09] MEDS: Insulin Glargine,Hum.rec.anlog 100 UNIT/ML 10 ML VIAL 6 UNIT SUBCUT (09:56)
[2024-01-09] MEDS: polyethylene glycoL 3350 17 GM POWD.PACK PO (11:33)
[2024-01-09] MEDS: Sertraline HCL 50 MG TABLET 150 MG PO (11:33)
[2024-01-09] MEDS: Magnesium Oxide 400 MG TABLET PO ×2 (11:33→17:21)
[2024-01-09] MEDS: Memantine HCl 10 MG TABLET PO ×2 (11:34→19:47)
[2024-01-09] MEDS: HaloperidoL 1 MG TABLET PO ×2 (11:34→17:21)
[2024-01-09] MEDS: Docusate Sodium 100 MG CAPSULE PO ×2 (11:34→19:46)
[2024-01-09 19:42] LABS: Glucose, Whole Blood 152 mg/dL (60-115)
[2024-01-09] MEDS: Sennosides 8.6 MG TABLET 17.2 MG PO (19:46)
[2024-01-09] MEDS: Melatonin 3 MG TABLET 6 MG PO (19:47)
[2024-01-09] MEDS: traZODone HCL 50 MG TABLET PO (19:47)
[2024-01-09 20:12] VITALS: BP 112/63; PULSE 68; RESP 18; TEMP 36.6; O2SAT 98
[2024-01-10 06:24] LABS: Glucose, Whole Blood 135 mg/dL (60-115)
[2024-01-10 08:00] VITALS: BP 125/58; PULSE 56; RESP 18; TEMP 36.7; O2SAT 99
[2024-01-10] MEDS: Magnesium Oxide 400 MG TABLET PO ×2 (08:32→16:25)
[2024-01-10] MEDS: Sertraline HCL 50 MG TABLET 150 MG PO (08:32)
[2024-01-10] MEDS: Insulin Glargine,Hum.rec.anlog 100 UNIT/ML 10 ML VIAL 6 UNIT SUBCUT (08:32)
[2024-01-10] MEDS: polyethylene glycoL 3350 17 GM POWD.PACK PO (08:32)
[2024-01-10] MEDS: HaloperidoL 1 MG TABLET PO ×2 (08:33→16:19)
[2024-01-10] MEDS: Docusate Sodium 100 MG CAPSULE PO ×2 (08:33→21:06)
[2024-01-10] MEDS: Memantine HCl 10 MG TABLET PO ×2 (08:33→21:06)
--- NOTE | 2024-01-10 13:56 | P.PNPSI_ITS ---
Subjective Subjective Date of Service: 01/10/24 Reason For Visit: hallucinations confusion Subjective Notes: Conditional Voluntary Interim History: The nursing staff reported the patient had been compliant with treatment slept well last night. On interview the patient remains pleasantly confused, easily redirectable waiting for placement no changes in mental status. Mental Status Exam Mental Status Exam Patient Appearance: Appropriate Patient Orientation: Person and Situation Level of Consciousness: Awake and Appropriate Patient Behavior: Guarded and Passive Mood Description: Withdrawn Affect Description: Constricted Patient Cognition Impaired: Yes Ability to Follow Directions: Good Speech Pattern: Clear Hallucinations: None Delusions: Not Present Thought Process: Distracted and Slowed Thinking Thought Content: positive for [place] and positive for Poverty of Content Judgement: Poor Diagnostics Vital Signs (24Hr): Vital Signs - 24 hr 01/09/24 20:12 01/10/24 08:00 Temperature 97.9 F 98.0 F Pulse Rate 68 56 Respiratory Rate 18 18 Blood Pressure 112/63 125/58 L Pulse Oximetry 98 99 Oxygen Delivery Method Room Air Room Air BMI result Body Mass Index 27.9 Labs 11/13/23 08:28 01/03/24 07:55 Labs: Laboratory Results - last 48 hr 01/08/24 01/09/24 01/09/24 19:48 06:21 19:34 POC Glucose 124 H 116 H 152 H 01/10/24 06:15 POC Glucose 135 H Imaging Radiology Impressions: ITS Impressions Brain MRI 04/03/23 15:30 IMPRESSION: No acute infarct, mass lesion, intracranial hemorrhage, or evidence of hydrocephalus. Mild nonspecific T2/FLAIR hyperintensity in the cerebral white matter and danny presumably on the basis of chronic microangiopathy. Cervical Spine CT 07/03/23 20:12 IMPRESSION: No acute findings within the cervical spine. The cervical central canal is not well assessed on this CT due to artifact. If weakness persists, a cervical spine MRI would be more sensitive in assessment. Medications Medications Current Medications Acetaminophen (Acetaminophen 325 Mg Tablet) 650 mg PO Q6H PRN PRN Reason: Pain, Mild (Pain Scale 1-3) Last Admin: 01/07/24 07:00 Dose: 650 mg Amphetamine/Dextroamphetamine (Amphetamine Mixed Salts 10 Mg Tablet) 5 mg PO BID@0800,1500 [facility] Docusate Sodium (Docusate Sodium 100 Mg Capsule) 100 mg PO BID [facility] Last Admin: 03/06/24 08:33 Dose: 100 mg Guaifenesin (Guaifenesin La 600 Mg Tab.Er.12h) 600 mg PO BID PRN PRN Reason: Cough Last Admin: 11/02/23 21:54 Dose: 600 mg Haloperidol (Haloperidol 1 Mg Tablet) 1 mg PO Q4H PRN PRN Reason: Hallucinations Last Admin: 01/08/24 21:26 Dose: 1 mg Haloperidol (Haloperidol 1 Mg Tablet) 1 mg PO BID@0830,1630 [facility] Last Admin: 01/10/24 08:33 Dose: 1 mg Hydroxyzine HCl (Hydroxyzine Hcl 25 Mg Tablet) 25 mg PO Q6H PRN PRN Reason: anxiety/restlessness Insulin Glargine (Insulin Glargine,Hum.Rec.Anlog 100 Unit/Ml 10 Ml Vial) 6 unit SUBCUT DAILY [facility] Last Admin: 01/10/24 08:32 Dose: 6 unit Magnesium Oxide (Magnesium Oxide 400 Mg Tablet) 400 mg PO BIDPC [facility] Last Admin: 01/10/24 08:32 Dose: 400 mg Melatonin (Melatonin 3 Mg Tablet) 6 mg PO BEDTIME [facility] Last Admin: 01/09/24 19:47 Dose: 6 mg Memantine (Memantine Hcl 10 Mg Tablet) 10 mg PO BID [facility] Last Admin: 01/10/24 08:33 Dose: 10 mg Polyethylene Glycol (Polyethylene Glycol 3350 17 Gm Powd.Pack) 17 gm PO DAILY [facility] Last Admin: 01/10/24 08:32 Dose: 17 gm Senna (Sennosides 8.6 Mg Tablet) 17.2 mg PO BEDTIME [facility] Last Admin: 01/09/24 19:46 Dose: 17.2 mg Sertraline HCl (Sertraline Hcl 50 Mg Tablet) 150 mg PO DAILY [facility] Last Admin: 01/10/24 08:32 Dose: 150 mg Trazodone HCl (Trazodone Hcl 50 Mg Tablet) 50 mg PO BEDTIME PRN PRN Reason: Insomnia Last Admin: 01/09/24 19:47 Dose: 50 mg Allergies Allergies Allergy/AdvReac Type Severity Reaction Status Date / Time No Known Allergies Allergy Verified 03/23/23 18:13 Assessment & Plan Assessment & Plan (1) Alzheimer's dementia: Status: Acute Code(s): G30.9 - Alzheimer's disease, unspecified; F02.80 - Dementia in other diseases classified elsewhere, unspecified severity, without behavioral disturbance, psychotic disturbance, mood disturbance, and anxiety Assessment and Plan: August 24 58 years old woman with relative young age onset at Alzheimer dementia but overall clinical picture is affected by significant depression, which continues to be the predominant feature of for clinical picture. Conventional dementia medicines such as donepezil or memantine can be tried but usually do not make significant difference. I would suggest memantine 10 mg twice a day and donepezil 10 mg daily. Recently a new dementia at drug for Alzheimer was approved but only for relatively mild dementia or mild cognitive impairment type of patients. She would not qualify for that drug. 10/18 Patient sitting in chair in the day room, head leaning over to 1 side, resting. When asked how she is doing she says that she has diabetes and that she takes meds for that. She asks if food writer will be down here again. Staff reports no changes in behavior but seems to have more frequent lucid moments. 10/27 continue tx. hold adderall due to increase irritability now that she is covid positive. 10/29: symptomatic of COVID - URI Sx. VSS. no change in mental health presentation. continue current mgmt. 10/30: continues laid low by COVID. psych presentation essentially unchanged. continue current mgmt, monitor VS. 10/31 continue tx. 11/05 CTP no change 11/06/23 - CTP 11/11/2023: No changes 11/12/2023: No changes to current plan 12/08 continue tx. 12/08: no changes 12/09: no changes 12/11 continue tx. 12/16/23 Continue tx. 12/17/23 Continue tx. 12/23: Continue current regimen and plans 12/24: Continue current regimen and plans 12/25: Continue current plans and regimen 01/04 continue tx. 01/05: stable. continue current mgmt. 01/06: stable. continue current mgmt. Plan 1. Continue with current treatment. 2. Waiting for placement. Plan Plan continue with same treatment Reason for continued inpatient stay Substantial Risk for: inability to function, rapid decompensation and med/psych decompensation Time Spent With Patient Time: Total time managing care of this patient today __20__ minutes.
[2024-01-10 20:00] VITALS: BP 130/66; PULSE 67; RESP 16; TEMP 36.6; O2SAT 97
[2024-01-10 20:10] LABS: Glucose, Whole Blood 200 mg/dL (60-115)
[2024-01-10] MEDS: traZODone HCL 50 MG TABLET PO (21:05)
[2024-01-10] MEDS: Sennosides 8.6 MG TABLET 17.2 MG PO (21:06)
[2024-01-10] MEDS: Melatonin 3 MG TABLET 6 MG PO (21:06)
[2024-01-11 06:00] VITALS: BP 129/63; PULSE 62; RESP 18; TEMP 36.8; O2SAT 97
[2024-01-11 06:29] LABS: Glucose, Whole Blood 108 mg/dL (60-115)
[2024-01-11 07:00] VITALS: BMI 27.5
[2024-01-11] MEDS: Memantine HCl 10 MG TABLET PO ×2 (09:07→20:25)
[2024-01-11] MEDS: Insulin Glargine,Hum.rec.anlog 100 UNIT/ML 10 ML VIAL 6 UNIT SUBCUT (09:07)
[2024-01-11] MEDS: Magnesium Oxide 400 MG TABLET PO ×2 (09:07→16:39)
[2024-01-11] MEDS: Docusate Sodium 100 MG CAPSULE PO ×2 (09:07→20:25)
[2024-01-11] MEDS: HaloperidoL 1 MG TABLET PO ×2 (09:07→16:39)
[2024-01-11] MEDS: Sertraline HCL 50 MG TABLET 150 MG PO (09:07)
[2024-01-11] MEDS: polyethylene glycoL 3350 17 GM POWD.PACK PO (09:10)
--- NOTE | 2024-01-11 14:10 | HO.PSYCHPN ---
Subjective Subjective Date of Service: 01/11/24 Reason For Visit: hallucinations confusion Subjective Notes: Conditional Voluntary Interim History: Nursing staff reported no changes in her mental status compliant with treatment. On interview the patient is pleasantly confused, waiting for placement. The social problems specialist reported that the guardian emailed as they are working on a possible discharge planning. Mental Status Exam Mental Status Exam Patient Appearance: Appropriate Patient Orientation: Person and Situation Level of Consciousness: Awake and Appropriate Patient Behavior: Guarded and Passive Mood Description: Withdrawn Affect Description: Blunted Patient Cognition Impaired: Yes Ability to Follow Directions: Good Speech Pattern: Clear Hallucinations: None Delusions: Not Present Thought Process: Slowed Thinking Thought Content: positive for Poverty of Content Judgement: Fair Diagnostics Vital Signs (24Hr): Vital Signs - 24 hr 01/10/24 20:00 01/11/24 06:00 Temperature 97.9 F 98.2 F Pulse Rate 67 62 Respiratory Rate 16 18 Blood Pressure 130/66 129/63 Pulse Oximetry 97 97 Oxygen Delivery Method Room Air Room Air BMI result Body Mass Index 27.9 Labs 11/13/23 08:28 01/03/24 07:55 Labs: Laboratory Results - last 48 hr 01/09/24 01/10/24 01/10/24 19:34 06:15 19:54 POC Glucose 152 H 135 H 200 H 01/11/24 06:20 POC Glucose 108 Imaging Radiology Impressions: ITS Impressions Brain MRI 04/03/23 15:30 IMPRESSION: No acute infarct, mass lesion, intracranial hemorrhage, or evidence of hydrocephalus. Mild nonspecific T2/FLAIR hyperintensity in the cerebral white matter and danny presumably on the basis of chronic microangiopathy. Cervical Spine CT 07/03/23 20:12 IMPRESSION: No acute findings within the cervical spine. The cervical central canal is not well assessed on this CT due to artifact. If weakness persists, a cervical spine MRI would be more sensitive in assessment. Medications Medications Current Medications Acetaminophen (Acetaminophen 325 Mg Tablet) 650 mg PO Q6H PRN PRN Reason: Pain, Mild (Pain Scale 1-3) Last Admin: 01/07/24 07:00 Dose: 650 mg Amphetamine/Dextroamphetamine (Amphetamine Mixed Salts 10 Mg Tablet) 5 mg PO BID@0800,1500 [facility] Docusate Sodium (Docusate Sodium 100 Mg Capsule) 100 mg PO BID [facility] Last Admin: 01/11/24 09:07 Dose: 100 mg Guaifenesin (Guaifenesin La 600 Mg Tab.Er.12h) 600 mg PO BID PRN PRN Reason: Cough Last Admin: 11/02/23 21:54 Dose: 600 mg Haloperidol (Haloperidol 1 Mg Tablet) 1 mg PO Q4H PRN PRN Reason: Hallucinations Last Admin: 01/08/24 21:26 Dose: 1 mg Haloperidol (Haloperidol 1 Mg Tablet) 1 mg PO BID@0830,1630 [facility] Last Admin: 01/11/24 09:07 Dose: 1 mg Hydroxyzine HCl (Hydroxyzine Hcl 25 Mg Tablet) 25 mg PO Q6H PRN PRN Reason: anxiety/restlessness Insulin Glargine (Insulin Glargine,Hum.Rec.Anlog 100 Unit/Ml 10 Ml Vial) 6 unit SUBCUT DAILY [facility] Last Admin: 01/11/24 09:07 Dose: 6 unit Magnesium Oxide (Magnesium Oxide 400 Mg Tablet) 400 mg PO BIDPC [facility] Last Admin: 01/11/24 09:07 Dose: 400 mg Melatonin (Melatonin 3 Mg Tablet) 6 mg PO BEDTIME [facility] Last Admin: 01/10/24 21:06 Dose: 6 mg Memantine (Memantine Hcl 10 Mg Tablet) 10 mg PO BID [facility] Last Admin: 01/11/24 09:07 Dose: 10 mg Polyethylene Glycol (Polyethylene Glycol 3350 17 Gm Powd.Pack) 17 gm PO DAILY [facility] Last Admin: 01/11/24 09:10 Dose: 17 gm Senna (Sennosides 8.6 Mg Tablet) 17.2 mg PO BEDTIME [facility] Last Admin: 01/10/24 21:06 Dose: 17.2 mg Sertraline HCl (Sertraline Hcl 50 Mg Tablet) 150 mg PO DAILY [facility] Last Admin: 01/11/24 09:07 Dose: 150 mg Trazodone HCl (Trazodone Hcl 50 Mg Tablet) 50 mg PO BEDTIME PRN PRN Reason: Insomnia Last Admin: 01/10/24 21:05 Dose: 50 mg Allergies Allergies Allergy/AdvReac Type Severity Reaction Status Date / Time No Known Allergies Allergy Verified 03/23/23 18:13 Assessment & Plan Assessment & Plan (1) Alzheimer's dementia: Status: Acute Code(s): G30.9 - Alzheimer's disease, unspecified; F02.80 - Dementia in other diseases classified elsewhere, unspecified severity, without behavioral disturbance, psychotic disturbance, mood disturbance, and anxiety Assessment and Plan: August 24 58 years old woman with relative young age onset at Alzheimer dementia but overall clinical picture is affected by significant depression, which continues to be the predominant feature of for clinical picture. Conventional dementia medicines such as donepezil or memantine can be tried but usually do not make significant difference. I would suggest memantine 10 mg twice a day and donepezil 10 mg daily. Recently a new dementia at drug for Alzheimer was approved but only for relatively mild dementia or mild cognitive impairment type of patients. She would not qualify for that drug. 10/18 Patient sitting in chair in the day room, head leaning over to 1 side, resting. When asked how she is doing she says that she has diabetes and that she takes meds for that. She asks if remote mortgage underwriter will be down here again. Staff reports no changes in behavior but seems to have more frequent lucid moments. 10/27 continue tx. hold adderall due to increase irritability now that she is covid positive. 10/29: symptomatic of COVID - URI Sx. VSS. no change in mental health presentation. continue current mgmt. 10/30: continues laid low by COVID. psych presentation essentially unchanged. continue current mgmt, monitor VS. 10/31 continue tx. 11/05 CTP no change 11/06/23 - CTP 11/11/2023: No changes 11/12/2023: No changes to current plan 12/08 continue tx. 12/08: no changes 12/09: no changes 12/11 continue tx. 12/16/23 Continue tx. 12/17/23 Continue tx. 12/23: Continue current regimen and plans 12/24: Continue current regimen and plans 12/25: Continue current plans and regimen 01/04 continue tx. 01/05: stable. continue current mgmt. 01/06: stable. continue current mgmt. Plan 1. Continue with current treatment. 2. Waiting for placement. Plan Plan continue with same treatment Reason for continued inpatient stay Substantial Risk for: inability to function, rapid decompensation and med/psych decompensation Time Spent With Patient Time: Total time managing care of this patient today __20__ minutes.
[2024-01-11 18:00] VITALS: BP 129/60; PULSE 67; RESP 18; TEMP 37; O2SAT 97
[2024-01-11 20:18] LABS: Glucose, Whole Blood 163 mg/dL (60-115)
[2024-01-11] MEDS: Sennosides 8.6 MG TABLET 17.2 MG PO (20:25)
[2024-01-11] MEDS: Melatonin 3 MG TABLET 6 MG PO (20:25)
[2024-01-11] MEDS: traZODone HCL 50 MG TABLET PO (20:25)
[2024-01-12 06:34] LABS: Glucose, Whole Blood 118 mg/dL (60-115)
[2024-01-12 07:44] VITALS: BP 138/78; PULSE 58; RESP 16; TEMP 36.7; O2SAT 97
[2024-01-12] MEDS: Docusate Sodium 100 MG CAPSULE PO ×2 (07:45→19:50)
[2024-01-12] MEDS: Memantine HCl 10 MG TABLET PO ×2 (07:46→19:50)
[2024-01-12] MEDS: HaloperidoL 1 MG TABLET PO ×2 (07:46→16:56)
[2024-01-12] MEDS: Sertraline HCL 50 MG TABLET 150 MG PO (07:46)
[2024-01-12] MEDS: Magnesium Oxide 400 MG TABLET PO ×2 (07:46→16:56)
[2024-01-12] MEDS: polyethylene glycoL 3350 17 GM POWD.PACK PO (07:47)
[2024-01-12] MEDS: Insulin Glargine,Hum.rec.anlog 100 UNIT/ML 10 ML VIAL 6 UNIT SUBCUT (07:54)
--- NOTE | 2024-01-12 13:31 | HO.PSYCHPN ---
Subjective Subjective Date of Service: 01/12/24 Reason For Visit: hallucinations confusion Interim History: stable, no complaints or requests. per staff, no change. Mental Status Exam Mental Status Exam Patient Appearance: Well Grooomed and Appropriate Patient Orientation: Person and Situation Level of Consciousness: Awake Patient Behavior: Guarded and Passive Mood Description: Calm Affect Description: Calm and Appropriate Patient Cognition Impaired: Yes Ability to Follow Directions: Good Speech Pattern: Clear Memory Description: Working Impaired Diagnostics Vital Signs (24Hr): Vital Signs - 24 hr 01/11/24 18:00 01/12/24 07:44 Temperature 98.6 F 98.0 F Pulse Rate 67 58 Respiratory Rate 18 16 Blood Pressure 129/60 138/78 Pulse Oximetry 97 97 Oxygen Delivery Method Room Air Room Air BMI result Body Mass Index 27.5 Labs 11/13/23 08:28 01/03/24 07:55 Labs: Laboratory Results - last 48 hr 01/10/24 01/11/24 01/11/24 19:54 06:20 19:53 POC Glucose 200 H 108 163 H 01/12/24 06:14 POC Glucose 118 H Imaging Radiology Impressions: ITS Impressions Brain MRI 04/03/23 15:30 IMPRESSION: No acute infarct, mass lesion, intracranial hemorrhage, or evidence of hydrocephalus. Mild nonspecific T2/FLAIR hyperintensity in the cerebral white matter and danny presumably on the basis of chronic microangiopathy. Cervical Spine CT 07/03/23 20:12 IMPRESSION: No acute findings within the cervical spine. The cervical central canal is not well assessed on this CT due to artifact. If weakness persists, a cervical spine MRI would be more sensitive in assessment. Medications Medications Current Medications Acetaminophen (Acetaminophen 325 Mg Tablet) 650 mg PO Q6H PRN PRN Reason: Pain, Mild (Pain Scale 1-3) Last Admin: 01/07/24 07:00 Dose: 650 mg Amphetamine/Dextroamphetamine (Amphetamine Mixed Salts 10 Mg Tablet) 5 mg PO BID@0800,1500 [facility] Docusate Sodium (Docusate Sodium 100 Mg Capsule) 100 mg PO BID BEN Last Admin: 01/12/24 07:45 Dose: 100 mg Guaifenesin (Guaifenesin La 600 Mg Tab.Er.12h) 600 mg PO BID PRN PRN Reason: Cough Last Admin: 11/02/23 21:54 Dose: 600 mg Haloperidol (Haloperidol 1 Mg Tablet) 1 mg PO Q4H PRN PRN Reason: Hallucinations Last Admin: 01/08/24 21:26 Dose: 1 mg Haloperidol (Haloperidol 1 Mg Tablet) 1 mg PO BID@0830,1630 [facility] Last Admin: 01/12/24 07:46 Dose: 1 mg Hydroxyzine HCl (Hydroxyzine Hcl 25 Mg Tablet) 25 mg PO Q6H PRN PRN Reason: anxiety/restlessness Insulin Glargine (Insulin Glargine,Hum.Rec.Anlog 100 Unit/Ml 10 Ml Vial) 6 unit SUBCUT DAILY [facility] Last Admin: 01/12/24 07:54 Dose: 6 unit Magnesium Oxide (Magnesium Oxide 400 Mg Tablet) 400 mg PO BIDPC [facility] Last Admin: 01/12/24 07:46 Dose: 400 mg Melatonin (Melatonin 3 Mg Tablet) 6 mg PO BEDTIME [facility] Last Admin: 01/11/24 20:25 Dose: 6 mg Memantine (Memantine Hcl 10 Mg Tablet) 10 mg PO BID [facility] Last Admin: 01/12/24 07:46 Dose: 10 mg Polyethylene Glycol (Polyethylene Glycol 3350 17 Gm Powd.Pack) 17 gm PO DAILY [facility] Last Admin: 01/12/24 07:47 Dose: 17 gm Senna (Sennosides 8.6 Mg Tablet) 17.2 mg PO BEDTIME [facility] Last Admin: 01/11/24 20:25 Dose: 17.2 mg Sertraline HCl (Sertraline Hcl 50 Mg Tablet) 150 mg PO DAILY [facility] Last Admin: 01/12/24 07:46 Dose: 150 mg Trazodone HCl (Trazodone Hcl 50 Mg Tablet) 50 mg PO BEDTIME PRN PRN Reason: Insomnia Last Admin: 01/11/24 20:25 Dose: 50 mg Allergies Allergies Allergy/AdvReac Type Severity Reaction Status Date / Time No Known Allergies Allergy Verified 03/23/23 18:13 Assessment & Plan Assessment & Plan (1) Alzheimer's dementia: Status: Acute Code(s): G30.9 - Alzheimer's disease, unspecified; F02.80 - Dementia in other diseases classified elsewhere, unspecified severity, without behavioral disturbance, psychotic disturbance, mood disturbance, and anxiety Assessment and Plan: August 24 58 years old woman with relative young age onset at Alzheimer dementia but overall clinical picture is affected by significant depression, which continues to be the predominant feature of for clinical picture. Conventional dementia medicines such as donepezil or memantine can be tried but usually do not make significant difference. I would suggest memantine 10 mg twice a day and donepezil 10 mg daily. Recently a new dementia at drug for Alzheimer was approved but only for relatively mild dementia or mild cognitive impairment type of patients. She would not qualify for that drug. 10/18 Patient sitting in chair in the day room, head leaning over to 1 side, resting. When asked how she is doing she says that she has diabetes and that she takes meds for that. She asks if insurance underwriter sales will be down here again. Staff reports no changes in behavior but seems to have more frequent lucid moments. 10/27 continue tx. hold adderall due to increase irritability now that she is covid positive. 10/29: symptomatic of COVID - URI Sx. VSS. no change in mental health presentation. continue current mgmt. 10/30: continues laid low by COVID. psych presentation essentially unchanged. continue current mgmt, monitor VS. 10/31 continue tx. 11/05 CTP no change 11/06/23 - CTP 11/11/2023: No changes 11/12/2023: No changes to current plan 12/08 continue tx. 12/08: no changes 12/09: no changes 12/11 continue tx. 12/16/23 Continue tx. 12/17/23 Continue tx. 12/23: Continue current regimen and plans 12/24: Continue current regimen and plans 12/25: Continue current plans and regimen 01/04 continue tx. 01/05: stable. continue current mgmt. 01/06: stable. continue current mgmt. Plan 1. Continue with current treatment. 2. Waiting for placement. Plan Plan continue with same treatment Reason for continued inpatient stay Substantial Risk for: inability to function Time Spent With Patient Time: Total time managing care of this patient today ____ minutes.
[2024-01-12 19:40] LABS: Glucose, Whole Blood 216 mg/dL (60-115)
[2024-01-12] MEDS: Melatonin 3 MG TABLET 6 MG PO (19:50)
[2024-01-12] MEDS: Sennosides 8.6 MG TABLET 17.2 MG PO (19:50)
[2024-01-12] MEDS: traZODone HCL 50 MG TABLET PO (19:50)
[2024-01-12 20:27] VITALS: BP 139/65; PULSE 65; RESP 17; TEMP 36.2; O2SAT 96
[2024-01-13 06:01] LABS: Glucose, Whole Blood 110 mg/dL (60-115)
[2024-01-13 08:22] VITALS: BP 131/62; PULSE 61; RESP 18; TEMP 36.5; O2SAT 98
[2024-01-13] MEDS: Sertraline HCL 50 MG TABLET 150 MG PO (09:36)
[2024-01-13] MEDS: Magnesium Oxide 400 MG TABLET PO ×2 (09:36→16:50)
[2024-01-13] MEDS: Memantine HCl 10 MG TABLET PO ×2 (09:36→19:47)
[2024-01-13] MEDS: HaloperidoL 1 MG TABLET PO ×2 (09:36→16:50)
[2024-01-13] MEDS: Docusate Sodium 100 MG CAPSULE PO ×2 (09:36→19:47)
[2024-01-13] MEDS: Insulin Glargine,Hum.rec.anlog 100 UNIT/ML 10 ML VIAL 6 UNIT SUBCUT (09:37)
--- NOTE | 2024-01-13 17:56 | P.PNPSI_ITS ---
Subjective Subjective Date of Service: 01/13/24 Reason For Visit: hallucinations confusion Interim History: Met with patient; discussed with team; reviewed chart Patient calm, polite; asks about going home but understands she will need to discuss this with primary team they return on Monday Mental Status Exam Mental Status Exam Patient Appearance: Well Grooomed and Appropriate Patient Orientation: Person, Place and Situation Level of Consciousness: Awake Patient Behavior: Appropriate, Cooperative and Good Eye Contact Mood Description: Calm Affect Description: Calm and Appropriate Patient Cognition Impaired: Yes Ability to Follow Directions: Good Speech Pattern: Clear Memory Description: Working Impaired Thought Process: Goal Oriented Thought Content: positive for Goal Oriented Diagnostics Vital Signs (24Hr): Vital Signs - 24 hr 01/12/24 20:27 01/13/24 08:22 Temperature 97.1 F 97.7 F Pulse Rate 65 61 Respiratory Rate 17 18 Blood Pressure 139/65 131/62 Pulse Oximetry 96 98 Oxygen Delivery Method Room Air Room Air BMI result Body Mass Index 27.5 Labs 11/13/23 08:28 01/03/24 07:55 Labs: Laboratory Results - last 48 hr 01/11/24 01/12/24 01/12/24 19:53 06:14 19:31 POC Glucose 163 H 118 H 216 H 01/13/24 05:56 POC Glucose 110 Imaging Radiology Impressions: ITS Impressions Brain MRI 04/03/23 15:30 IMPRESSION: No acute infarct, mass lesion, intracranial hemorrhage, or evidence of hydrocephalus. Mild nonspecific T2/FLAIR hyperintensity in the cerebral white matter and danny presumably on the basis of chronic microangiopathy. Cervical Spine CT 07/03/23 20:12 IMPRESSION: No acute findings within the cervical spine. The cervical central canal is not well assessed on this CT due to artifact. If weakness persists, a cervical spine MRI would be more sensitive in assessment. Medications Medications Current Medications Acetaminophen (Acetaminophen 325 Mg Tablet) 650 mg PO Q6H PRN PRN Reason: Pain, Mild (Pain Scale 1-3) Last Admin: 01/07/24 07:00 Dose: 650 mg Amphetamine/Dextroamphetamine (Amphetamine Mixed Salts 10 Mg Tablet) 5 mg PO BID@0800,1500 [facility] Docusate Sodium (Docusate Sodium 100 Mg Capsule) 100 mg PO BID [facility] Last Admin: 01/13/24 09:36 Dose: 100 mg Guaifenesin (Guaifenesin La 600 Mg Tab.Er.12h) 600 mg PO BID PRN PRN Reason: Cough Last Admin: 11/02/23 21:54 Dose: 600 mg Haloperidol (Haloperidol 1 Mg Tablet) 1 mg PO Q4H PRN PRN Reason: Hallucinations Last Admin: 01/08/24 21:26 Dose: 1 mg Haloperidol (Haloperidol 1 Mg Tablet) 1 mg PO BID@0830,1630 [facility] Last Admin: 01/13/24 16:50 Dose: 1 mg Hydroxyzine HCl (Hydroxyzine Hcl 25 Mg Tablet) 25 mg PO Q6H PRN PRN Reason: anxiety/restlessness Insulin Glargine (Insulin Glargine,Hum.Rec.Anlog 100 Unit/Ml 10 Ml Vial) 6 unit SUBCUT DAILY [facility] Last Admin: 01/13/24 09:37 Dose: 6 unit Magnesium Oxide (Magnesium Oxide 400 Mg Tablet) 400 mg PO BIDPC [facility] Last Admin: 01/13/24 16:50 Dose: 400 mg Melatonin (Melatonin 3 Mg Tablet) 6 mg PO BEDTIME [facility] Last Admin: 01/12/24 19:50 Dose: 6 mg Memantine (Memantine Hcl 10 Mg Tablet) 10 mg PO BID [facility] Last Admin: 01/13/24 09:36 Dose: 10 mg Polyethylene Glycol (Polyethylene Glycol 3350 17 Gm Powd.Pack) 17 gm PO DAILY [facility] Last Admin: 01/13/24 09:40 Dose: Not Given Senna (Sennosides 8.6 Mg Tablet) 17.2 mg PO BEDTIME [facility] Last Admin: 01/12/24 19:50 Dose: 17.2 mg Sertraline HCl (Sertraline Hcl 50 Mg Tablet) 150 mg PO DAILY [facility] Last Admin: 01/13/24 09:36 Dose: 150 mg Trazodone HCl (Trazodone Hcl 50 Mg Tablet) 50 mg PO BEDTIME PRN PRN Reason: Insomnia Last Admin: 01/12/24 19:50 Dose: 50 mg Allergies Allergies Allergy/AdvReac Type Severity Reaction Status Date / Time No Known Allergies Allergy Verified 03/23/23 18:13 Assessment & Plan Assessment & Plan (1) Alzheimer's dementia: Status: Acute Code(s): G30.9 - Alzheimer's disease, unspecified; F02.80 - Dementia in other diseases classified elsewhere, unspecified severity, without behavioral disturbance, psychotic disturbance, mood disturbance, and anxiety Assessment and Plan: August 24 58 years old woman with relative young age onset at Alzheimer dementia but overall clinical picture is affected by significant depression, which continues to be the predominant feature of for clinical picture. Conventional dementia medicines such as donepezil or memantine can be tried but usually do not make significant difference. I would suggest memantine 10 mg twice a day and donepezil 10 mg daily. Recently a new dementia at drug for Alzheimer was approved but only for relatively mild dementia or mild cognitive impairment type of patients. She would not qualify for that drug. 10/18 Patient sitting in chair in the day room, head leaning over to 1 side, resting. When asked how she is doing she says that she has diabetes and that she takes meds for that. She asks if expert medical writer will be down here again. Staff reports no changes in behavior but seems to have more frequent lucid moments. 10/27 continue tx. hold adderall due to increase irritability now that she is covid positive. 10/29: symptomatic of COVID - URI Sx. VSS. no change in mental health presentation. continue current mgmt. 10/30: continues laid low by COVID. psych presentation essentially unchanged. continue current mgmt, monitor VS. 10/31 continue tx. 11/05 CTP no change 11/06/23 - CTP 11/11/2023: No changes 11/12/2023: No changes to current plan 12/08 continue tx. 12/08: no changes 12/09: no changes 12/11 continue tx. 12/16/23 Continue tx. 12/17/23 Continue tx. 12/23: Continue current regimen and plans 12/24: Continue current regimen and plans 12/25: Continue current plans and regimen 01/04 continue tx. 01/05: stable. continue current mgmt. 01/06: stable. continue current mgmt. Plan 1. Continue with current treatment. 2. Waiting for placement. Plan Plan continue with same treatment Reason for continued inpatient stay Substantial Risk for: rapid decompensation Time Spent With Patient Time: Total time managing care of this patient today ____ minutes.
[2024-01-13 19:29] LABS: Glucose, Whole Blood 130 mg/dL (60-115)
[2024-01-13] MEDS: Melatonin 3 MG TABLET 6 MG PO (19:47)
[2024-01-13] MEDS: traZODone HCL 50 MG TABLET PO (19:47)
[2024-01-13] MEDS: Sennosides 8.6 MG TABLET 17.2 MG PO (19:47)
[2024-01-13 20:38] VITALS: BP 100/50; PULSE 55; RESP 17; TEMP 36.4; O2SAT 97
[2024-01-14 06:40] LABS: Glucose, Whole Blood 109 mg/dL (60-115)
[2024-01-14 08:23] VITALS: BP 128/63; PULSE 96; RESP 18; TEMP 36.2; O2SAT 96
[2024-01-14] MEDS: Magnesium Oxide 400 MG TABLET PO ×2 (08:29→16:43)
[2024-01-14] MEDS: HaloperidoL 1 MG TABLET PO ×2 (08:29→16:43)
[2024-01-14] MEDS: Memantine HCl 10 MG TABLET PO ×2 (08:29→21:50)
[2024-01-14] MEDS: Docusate Sodium 100 MG CAPSULE PO ×2 (08:29→21:50)
[2024-01-14] MEDS: Sertraline HCL 50 MG TABLET 150 MG PO (08:29)
[2024-01-14] MEDS: Insulin Glargine,Hum.rec.anlog 100 UNIT/ML 10 ML VIAL 6 UNIT SUBCUT (08:30)
[2024-01-14] MEDS: polyethylene glycoL 3350 17 GM POWD.PACK PO (08:30)
[2024-01-14 18:10] VITALS: BP 124/65; PULSE 67; RESP 18; TEMP 36.2; O2SAT 100
[2024-01-14 21:34] LABS: Glucose, Whole Blood 136 mg/dL (60-115)
[2024-01-14] MEDS: Melatonin 3 MG TABLET 6 MG PO (21:50)
[2024-01-14] MEDS: Sennosides 8.6 MG TABLET 17.2 MG PO (21:50)
[2024-01-14] MEDS: traZODone HCL 50 MG TABLET PO (21:50)
[2024-01-15 07:12] LABS: Glucose, Whole Blood 129 mg/dL (60-115)
[2024-01-15 08:36] VITALS: BP 145/70; PULSE 58; RESP 15; TEMP 36.4; O2SAT 95
[2024-01-15] MEDS: Insulin Glargine,Hum.rec.anlog 100 UNIT/ML 10 ML VIAL 6 UNIT SUBCUT (08:38)
[2024-01-15] MEDS: Magnesium Oxide 400 MG TABLET PO ×2 (08:38→17:25)
[2024-01-15] MEDS: Memantine HCl 10 MG TABLET PO ×2 (08:38→20:19)
[2024-01-15] MEDS: polyethylene glycoL 3350 17 GM POWD.PACK PO (08:38)
[2024-01-15] MEDS: Sertraline HCL 50 MG TABLET 150 MG PO (08:38)
[2024-01-15] MEDS: HaloperidoL 1 MG TABLET PO ×2 (08:38→17:25)
[2024-01-15] MEDS: Docusate Sodium 100 MG CAPSULE PO ×2 (08:39→20:19)
--- NOTE | 2024-01-15 09:07 | HO.PSYCHPN ---
Subjective Subjective Date of Service: 01/15/24 Reason For Visit: hallucinations confusion Subjective Notes: Conditional Voluntary Interim History: Per nursing, pt slept through the night. She reports doing well and denies any physical concerns. She is taking medications as prescribed. No behavioral concerns. Review of Systems Review of Systems unremarkable Yes all other systems are reviewed and are negative and Unobtainable due to mental status Constitutional: Reports as per HPI, Denies chills, Denies fatigue, Denies fever(s) and Denies headache(s) Denies headache(s) Cardiovascular: Denies chest pain and Denies dyspnea Respiratory: Denies cough and Denies dyspnea Gastrointestinal: Denies abdominal pain, Denies constipation and Denies vomiting Denies headache(s) and Denies focal weakness Psychiatric: Denies auditory hallucinations, Reports hallucinations (Per the patient's daughter. Patient denies this), Denies tactile hallucinations and Denies suicidal ideation Endocrine: Denies fatigue Mental Status Exam Mental Status Exam Patient Appearance: Well Grooomed and Appropriate Patient Orientation: Person Level of Consciousness: Awake Patient Behavior: Appropriate, Cooperative and Good Eye Contact Behavior Comments: Eyes remain closed Mood Description: Calm Affect Description: Calm and Appropriate Patient Cognition Impaired: Yes Ability to Follow Directions: Good Speech Pattern: Clear Memory Description: Working Impaired Diagnostics Vital Signs (24Hr): Vital Signs - 24 hr 01/14/24 18:10 01/15/24 08:36 Temperature 97.1 F 97.6 F Pulse Rate 67 58 Respiratory Rate 18 15 Blood Pressure 124/65 145/70 H Pulse Oximetry 100 95 Oxygen Delivery Method Room Air Room Air BMI result Body Mass Index 27.5 Labs 11/13/23 08:28 01/03/24 07:55 Labs: Laboratory Results - last 48 hr 01/13/24 01/14/24 01/14/24 19:20 06:07 21:18 POC Glucose 130 H 109 136 H 01/15/24 06:46 POC Glucose 129 H Imaging Radiology Impressions: ITS Impressions Brain MRI 04/03/23 15:30 IMPRESSION: No acute infarct, mass lesion, intracranial hemorrhage, or evidence of hydrocephalus. Mild nonspecific T2/FLAIR hyperintensity in the cerebral white matter and danny presumably on the basis of chronic microangiopathy. Cervical Spine CT 07/03/23 20:12 IMPRESSION: No acute findings within the cervical spine. The cervical central canal is not well assessed on this CT due to artifact. If weakness persists, a cervical spine MRI would be more sensitive in assessment. Medications Medications Current Medications Acetaminophen (Acetaminophen 325 Mg Tablet) 650 mg PO Q6H PRN PRN Reason: Pain, Mild (Pain Scale 1-3) Last Admin: 01/07/24 07:00 Dose: 650 mg Amphetamine/Dextroamphetamine (Amphetamine Mixed Salts 10 Mg Tablet) 5 mg PO BID@0800,1500 [facility] Docusate Sodium (Docusate Sodium 100 Mg Capsule) 100 mg PO BID [facility] Last Admin: 01/15/24 08:39 Dose: 100 mg Guaifenesin (Guaifenesin La 600 Mg Tab.Er.12h) 600 mg PO BID PRN PRN Reason: Cough Last Admin: 11/02/23 21:54 Dose: 600 mg Haloperidol (Haloperidol 1 Mg Tablet) 1 mg PO Q4H PRN PRN Reason: Hallucinations Last Admin: 01/08/24 21:26 Dose: 1 mg Haloperidol (Haloperidol 1 Mg Tablet) 1 mg PO BID@0830,1630 [facility] Last Admin: 01/15/24 08:38 Dose: 1 mg Hydroxyzine HCl (Hydroxyzine Hcl 25 Mg Tablet) 25 mg PO Q6H PRN PRN Reason: anxiety/restlessness Insulin Glargine (Insulin Glargine,Hum.Rec.Anlog 100 Unit/Ml 10 Ml Vial) 6 unit SUBCUT DAILY [facility] Last Admin: 01/15/24 08:38 Dose: 6 unit Magnesium Oxide (Magnesium Oxide 400 Mg Tablet) 400 mg PO BIDPC [facility] Last Admin: 01/15/24 08:38 Dose: 400 mg Melatonin (Melatonin 3 Mg Tablet) 6 mg PO BEDTIME [facility] Last Admin: 01/14/24 21:50 Dose: 6 mg Memantine (Memantine Hcl 10 Mg Tablet) 10 mg PO BID [facility] Last Admin: 01/15/24 08:38 Dose: 10 mg Polyethylene Glycol (Polyethylene Glycol 3350 17 Gm Powd.Pack) 17 gm PO DAILY [facility] Last Admin: 01/15/24 08:38 Dose: 17 gm Senna (Sennosides 8.6 Mg Tablet) 17.2 mg PO BEDTIME [facility] Last Admin: 01/14/24 21:50 Dose: 17.2 mg Sertraline HCl (Sertraline Hcl 50 Mg Tablet) 150 mg PO DAILY [facility] Last Admin: 01/15/24 08:38 Dose: 150 mg Trazodone HCl (Trazodone Hcl 50 Mg Tablet) 50 mg PO BEDTIME PRN PRN Reason: Insomnia Last Admin: 01/14/24 21:50 Dose: 50 mg Allergies Allergies Allergy/AdvReac Type Severity Reaction Status Date / Time No Known Allergies Allergy Verified 03/23/23 18:13 Assessment & Plan Assessment & Plan (1) Alzheimer's dementia: Status: Acute Code(s): G30.9 - Alzheimer's disease, unspecified; F02.80 - Dementia in other diseases classified elsewhere, unspecified severity, without behavioral disturbance, psychotic disturbance, mood disturbance, and anxiety Assessment and Plan: August 24 58 years old woman with relative young age onset at Alzheimer dementia but overall clinical picture is affected by significant depression, which continues to be the predominant feature of for clinical picture. Conventional dementia medicines such as donepezil or memantine can be tried but usually do not make significant difference. I would suggest memantine 10 mg twice a day and donepezil 10 mg daily. Recently a new dementia at drug for Alzheimer was approved but only for relatively mild dementia or mild cognitive impairment type of patients. She would not qualify for that drug. 10/18 Patient sitting in chair in the day room, head leaning over to 1 side, resting. When asked how she is doing she says that she has diabetes and that she takes meds for that. She asks if global technical writer will be down here again. Staff reports no changes in behavior but seems to have more frequent lucid moments. 10/27 continue tx. hold adderall due to increase irritability now that she is covid positive. 10/29: symptomatic of COVID - URI Sx. VSS. no change in mental health presentation. continue current mgmt. 10/30: continues laid low by COVID. psych presentation essentially unchanged. continue current mgmt, monitor VS. 10/31 continue tx. 11/05 CTP no change 11/06/23 - CTP 11/11/2023: No changes 11/12/2023: No changes to current plan / continue tx. 12/08: no changes 12/09: no changes 12/11 continue tx. 12/16/23 Continue tx. 12/17/23 Continue tx. 12/23: Continue current regimen and plans 12/24: Continue current regimen and plans 12/25: Continue current plans and regimen 01/04 continue tx. 01/05: stable. continue current mgmt. 01/06: stable. continue current mgmt. Plan 1. Continue with current treatment. 2. Waiting for placement. Plan Plan continue with same treatment Reason for continued inpatient stay Substantial Risk for: inability to function Time Spent With Patient Time: Total time managing care of this patient today ____ minutes.
--- NOTE | 2024-01-15 17:18 | HO.PSYCHPN ---
Subjective Subjective Date of Service: 01/15/24 Reason For Visit: hallucinations confusion Interim History: Met with patient; discussed with team Patient reports that she is good and again asks about discharge. She says how long does staff writer think she will need to stay; but then on her own she remembers she will need to wait to Monday to ask primary team. Slept well Mental Status Exam Mental Status Exam Patient Appearance: Well Grooomed and Appropriate Patient Orientation: Person, Place and Situation Level of Consciousness: Awake Patient Behavior: Appropriate, Cooperative and Good Eye Contact Mood Description: Calm Affect Description: Calm and Appropriate Patient Cognition Impaired: Yes Ability to Follow Directions: Good Speech Pattern: Clear Memory Description: Working Impaired Thought Process: Goal Oriented Thought Content: positive for Goal Oriented Diagnostics Vital Signs (24Hr): Vital Signs - 24 hr 01/14/24 18:10 01/15/24 08:36 Temperature 97.1 F 97.6 F Pulse Rate 67 58 Respiratory Rate 18 15 Blood Pressure 124/65 145/70 H Pulse Oximetry 100 95 Oxygen Delivery Method Room Air Room Air BMI result Body Mass Index 27.5 Labs 11/13/23 08:28 01/03/24 07:55 Labs: Laboratory Results - last 48 hr 01/13/24 01/14/24 01/14/24 19:20 06:07 21:18 POC Glucose 130 H 109 136 H 01/15/24 06:46 POC Glucose 129 H Imaging Radiology Impressions: ITS Impressions Brain MRI 04/03/23 15:30 IMPRESSION: No acute infarct, mass lesion, intracranial hemorrhage, or evidence of hydrocephalus. Mild nonspecific T2/FLAIR hyperintensity in the cerebral white matter and danny presumably on the basis of chronic microangiopathy. Cervical Spine CT 07/03/23 20:12 IMPRESSION: No acute findings within the cervical spine. The cervical central canal is not well assessed on this CT due to artifact. If weakness persists, a cervical spine MRI would be more sensitive in assessment. Medications Medications Current Medications Acetaminophen (Acetaminophen 325 Mg Tablet) 650 mg PO Q6H PRN PRN Reason: Pain, Mild (Pain Scale 1-3) Last Admin: 01/07/24 07:00 Dose: 650 mg Amphetamine/Dextroamphetamine (Amphetamine Mixed Salts 10 Mg Tablet) 5 mg PO BID@0800,1500 [facility] Docusate Sodium (Docusate Sodium 100 Mg Capsule) 100 mg PO BID [facility] Last Admin: 01/15/24 08:39 Dose: 100 mg Guaifenesin (Guaifenesin La 600 Mg Tab.Er.12h) 600 mg PO BID PRN PRN Reason: Cough Last Admin: 11/02/23 21:54 Dose: 600 mg Haloperidol (Haloperidol 1 Mg Tablet) 1 mg PO Q4H PRN PRN Reason: Hallucinations Last Admin: 01/08/24 21:26 Dose: 1 mg Haloperidol (Haloperidol 1 Mg Tablet) 1 mg PO BID@0830,1630 [facility] Last Admin: 01/15/24 08:38 Dose: 1 mg Hydroxyzine HCl (Hydroxyzine Hcl 25 Mg Tablet) 25 mg PO Q6H PRN PRN Reason: anxiety/restlessness Insulin Glargine (Insulin Glargine,Hum.Rec.Anlog 100 Unit/Ml 10 Ml Vial) 6 unit SUBCUT DAILY [facility] Last Admin: 01/15/24 08:38 Dose: 6 unit Magnesium Oxide (Magnesium Oxide 400 Mg Tablet) 400 mg PO BIDPC [facility] Last Admin: 01/15/24 08:38 Dose: 400 mg Melatonin (Melatonin 3 Mg Tablet) 6 mg PO BEDTIME [facility] Last Admin: 01/14/24 21:50 Dose: 6 mg Memantine (Memantine Hcl 10 Mg Tablet) 10 mg PO BID [facility] Last Admin: 01/15/24 08:38 Dose: 10 mg Polyethylene Glycol (Polyethylene Glycol 3350 17 Gm Powd.Pack) 17 gm PO DAILY [facility] Last Admin: 01/15/24 08:38 Dose: 17 gm Senna (Sennosides 8.6 Mg Tablet) 17.2 mg PO BEDTIME [facility] Last Admin: 01/14/24 21:50 Dose: 17.2 mg Sertraline HCl (Sertraline Hcl 50 Mg Tablet) 150 mg PO DAILY [facility] Last Admin: 01/15/24 08:38 Dose: 150 mg Trazodone HCl (Trazodone Hcl 50 Mg Tablet) 50 mg PO BEDTIME PRN PRN Reason: Insomnia Last Admin: 01/14/24 21:50 Dose: 50 mg Allergies Allergies Allergy/AdvReac Type Severity Reaction Status Date / Time No Known Allergies Allergy Verified 03/23/23 18:13 Assessment & Plan Assessment & Plan (1) Alzheimer's dementia: Status: Acute Code(s): G30.9 - Alzheimer's disease, unspecified; F02.80 - Dementia in other diseases classified elsewhere, unspecified severity, without behavioral disturbance, psychotic disturbance, mood disturbance, and anxiety Assessment and Plan: August 24 58 years old woman with relative young age onset at Alzheimer dementia but overall clinical picture is affected by significant depression, which continues to be the predominant feature of for clinical picture. Conventional dementia medicines such as donepezil or memantine can be tried but usually do not make significant difference. I would suggest memantine 10 mg twice a day and donepezil 10 mg daily. Recently a new dementia at drug for Alzheimer was approved but only for relatively mild dementia or mild cognitive impairment type of patients. She would not qualify for that drug. 10/18 Patient sitting in chair in the day room, head leaning over to 1 side, resting. When asked how she is doing she says that she has diabetes and that she takes meds for that. She asks if staff writer will be down here again. Staff reports no changes in behavior but seems to have more frequent lucid moments. 10/27 continue tx. hold adderall due to increase irritability now that she is covid positive. 10/29: symptomatic of COVID - URI Sx. VSS. no change in mental health presentation. continue current mgmt. 10/30: continues laid low by COVID. psych presentation essentially unchanged. continue current mgmt, monitor VS. 10/31 continue tx. 11/05 CTP no change 11/06/23 - CTP 11/11/2023: No changes 11/12/2023: No changes to current plan 12/08 continue tx. 12/08: no changes 12/09: no changes 12/11 continue tx. 12/16/23 Continue tx. 12/17/23 Continue tx. 12/23: Continue current regimen and plans 12/24: Continue current regimen and plans 12/25: Continue current plans and regimen 01/04 continue tx. 01/05: stable. continue current mgmt. 01/06: stable. continue current mgmt. Plan 1. Continue with current treatment. 2. Waiting for placement. Plan Plan continue with same treatment Reason for continued inpatient stay Substantial Risk for: rapid decompensation Time Spent With Patient Time: Total time managing care of this patient today ____ minutes.
[2024-01-15 19:30] VITALS: BP 141/71; PULSE 64; RESP 18; TEMP 37.1; O2SAT 98
[2024-01-15 19:58] LABS: Glucose, Whole Blood 147 mg/dL (60-115)
[2024-01-15] MEDS: Sennosides 8.6 MG TABLET 17.2 MG PO (20:19)
[2024-01-15] MEDS: Melatonin 3 MG TABLET 6 MG PO (20:19)
[2024-01-15] MEDS: traZODone HCL 50 MG TABLET PO (20:19)
[2024-01-16 06:49] LABS: Glucose, Whole Blood 109 mg/dL (60-115)
[2024-01-16 08:00] VITALS: BP 125/63; PULSE 88; RESP 18; TEMP 36.7; O2SAT 97
[2024-01-16] MEDS: polyethylene glycoL 3350 17 GM POWD.PACK PO (08:15)
[2024-01-16] MEDS: HaloperidoL 1 MG TABLET PO ×2 (08:15→17:18)
[2024-01-16] MEDS: Insulin Glargine,Hum.rec.anlog 100 UNIT/ML 10 ML VIAL 6 UNIT SUBCUT (08:15)
[2024-01-16] MEDS: Sertraline HCL 50 MG TABLET 150 MG PO (08:15)
[2024-01-16] MEDS: Memantine HCl 10 MG TABLET PO ×2 (08:15→20:31)
[2024-01-16] MEDS: Magnesium Oxide 400 MG TABLET PO ×2 (08:15→17:19)
[2024-01-16] MEDS: Docusate Sodium 100 MG CAPSULE PO ×2 (08:15→20:31)
--- NOTE | 2024-01-16 16:47 | HO.PSYCHPN ---
Subjective Subjective Date of Service: 01/16/24 Reason For Visit: hallucinations confusion Subjective Notes: Conditional Voluntary Interim History: Per nursing, pt slept through the night. She reports doing well and denies any physical concerns. She is taking medications as prescribed. No behavioral concerns. bright affect, pleasant on approach. Review of Systems Review of Systems unremarkable Yes all other systems are reviewed and are negative and Unobtainable due to mental status Constitutional: Reports as per HPI, Denies chills, Denies fatigue, Denies fever(s) and Denies headache(s) Denies headache(s) Cardiovascular: Denies chest pain and Denies dyspnea Respiratory: Denies cough and Denies dyspnea Gastrointestinal: Denies abdominal pain, Denies constipation and Denies vomiting Denies headache(s) and Denies focal weakness Psychiatric: Denies auditory hallucinations, Reports hallucinations (Per the patient's daughter. Patient denies this), Denies tactile hallucinations and Denies suicidal ideation Endocrine: Denies fatigue Mental Status Exam Mental Status Exam Patient Appearance: Well Grooomed and Appropriate Patient Orientation: Person Level of Consciousness: Awake Patient Behavior: Appropriate, Cooperative and Good Eye Contact Behavior Comments: Eyes remain closed Mood Description: Calm Affect Description: Calm and Appropriate Patient Cognition Impaired: Yes Ability to Follow Directions: Good Speech Pattern: Clear Memory Description: Working Impaired Diagnostics Vital Signs (24Hr): Vital Signs - 24 hr 01/15/24 19:30 01/16/24 08:00 Temperature 98.7 F 98.0 F Pulse Rate 64 88 Respiratory Rate 18 18 Blood Pressure 141/71 H 125/63 Pulse Oximetry 98 97 Oxygen Delivery Method Room Air Room Air BMI result Body Mass Index 27.5 Labs 11/13/23 08:28 01/03/24 07:55 Labs: Laboratory Results - last 48 hr 01/14/24 01/15/24 01/15/24 21:18 06:46 19:49 POC Glucose 136 H 129 H 147 H 01/16/24 06:20 POC Glucose 109 Imaging Radiology Impressions: ITS Impressions Brain MRI 04/03/23 15:30 IMPRESSION: No acute infarct, mass lesion, intracranial hemorrhage, or evidence of hydrocephalus. Mild nonspecific T2/FLAIR hyperintensity in the cerebral white matter and danny presumably on the basis of chronic microangiopathy. Cervical Spine CT 07/03/23 20:12 IMPRESSION: No acute findings within the cervical spine. The cervical central canal is not well assessed on this CT due to artifact. If weakness persists, a cervical spine MRI would be more sensitive in assessment. Medications Medications Current Medications Acetaminophen (Acetaminophen 325 Mg Tablet) 650 mg PO Q6H PRN PRN Reason: Pain, Mild (Pain Scale 1-3) Last Admin: 01/07/24 07:00 Dose: 650 mg Amphetamine/Dextroamphetamine (Amphetamine Mixed Salts 10 Mg Tablet) 5 mg PO BID@0800,1500 [facility] Docusate Sodium (Docusate Sodium 100 Mg Capsule) 100 mg PO BID [facility] Last Admin: 01/16/24 08:15 Dose: 100 mg Guaifenesin (Guaifenesin La 600 Mg Tab.Er.12h) 600 mg PO BID PRN PRN Reason: Cough Last Admin: 11/02/23 21:54 Dose: 600 mg Haloperidol (Haloperidol 1 Mg Tablet) 1 mg PO Q4H PRN PRN Reason: Hallucinations Last Admin: 01/08/24 21:26 Dose: 1 mg Haloperidol (Haloperidol 1 Mg Tablet) 1 mg PO BID@0830,1630 [facility] Last Admin: 01/16/24 08:15 Dose: 1 mg Hydroxyzine HCl (Hydroxyzine Hcl 25 Mg Tablet) 25 mg PO Q6H PRN PRN Reason: anxiety/restlessness Insulin Glargine (Insulin Glargine,Hum.Rec.Anlog 100 Unit/Ml 10 Ml Vial) 6 unit SUBCUT DAILY [facility] Last Admin: 01/16/24 08:15 Dose: 6 unit Magnesium Oxide (Magnesium Oxide 400 Mg Tablet) 400 mg PO BIDPC [facility] Last Admin: 01/16/24 08:15 Dose: 400 mg Melatonin (Melatonin 3 Mg Tablet) 6 mg PO BEDTIME [facility] Last Admin: 01/15/24 20:19 Dose: 6 mg Memantine (Memantine Hcl 10 Mg Tablet) 10 mg PO BID [facility] Last Admin: 01/16/24 08:15 Dose: 10 mg Polyethylene Glycol (Polyethylene Glycol 3350 17 Gm Powd.Pack) 17 gm PO DAILY [facility] Last Admin: 01/16/24 08:15 Dose: 17 gm Senna (Sennosides 8.6 Mg Tablet) 17.2 mg PO BEDTIME [facility] Last Admin: 01/15/24 20:19 Dose: 17.2 mg Sertraline HCl (Sertraline Hcl 50 Mg Tablet) 150 mg PO DAILY [facility] Last Admin: 01/16/24 08:15 Dose: 150 mg Trazodone HCl (Trazodone Hcl 50 Mg Tablet) 50 mg PO BEDTIME PRN PRN Reason: Insomnia Last Admin: 01/15/24 20:19 Dose: 50 mg Allergies Allergies Allergy/AdvReac Type Severity Reaction Status Date / Time No Known Allergies Allergy Verified 03/23/23 18:13 Assessment & Plan Assessment & Plan (1) Alzheimer's dementia: Status: Acute Code(s): G30.9 - Alzheimer's disease, unspecified; F02.80 - Dementia in other diseases classified elsewhere, unspecified severity, without behavioral disturbance, psychotic disturbance, mood disturbance, and anxiety Assessment and Plan: August 24 58 years old woman with relative young age onset at Alzheimer dementia but overall clinical picture is affected by significant depression, which continues to be the predominant feature of for clinical picture. Conventional dementia medicines such as donepezil or memantine can be tried but usually do not make significant difference. I would suggest memantine 10 mg twice a day and donepezil 10 mg daily. Recently a new dementia at drug for Alzheimer was approved but only for relatively mild dementia or mild cognitive impairment type of patients. She would not qualify for that drug. 10/18 Patient sitting in chair in the day room, head leaning over to 1 side, resting. When asked how she is doing she says that she has diabetes and that she takes meds for that. She asks if senior writer will be down here again. Staff reports no changes in behavior but seems to have more frequent lucid moments. 10/27 continue tx. hold adderall due to increase irritability now that she is covid positive. 10/29: symptomatic of COVID - URI Sx. VSS. no change in mental health presentation. continue current mgmt. 10/30: continues laid low by COVID. psych presentation essentially unchanged. continue current mgmt, monitor VS. 10/31 continue tx. 11/05 CTP no change 11/06/23 - CTP 11/11/2023: No changes 11/12/2023: No changes to current plan 12/08 continue tx. 12/08: no changes 12/09: no changes 12/11 continue tx. 12/16/23 Continue tx. 12/17/23 Continue tx. 12/23: Continue current regimen and plans 12/24: Continue current regimen and plans 12/25: Continue current plans and regimen 01/04 continue tx. 01/05: stable. continue current mgmt. 01/06: stable. continue current mgmt. Plan 1. Continue with current treatment. 2. Waiting for placement. Plan Plan continue with same treatment Reason for continued inpatient stay Substantial Risk for: inability to function Time Spent With Patient Time: Total time managing care of this patient today ____ minutes.
[2024-01-16 19:35] VITALS: BP 119/69; PULSE 65; RESP 18; TEMP 36.8; O2SAT 99
[2024-01-16] MEDS: Sennosides 8.6 MG TABLET 17.2 MG PO (20:30)
[2024-01-16] MEDS: Melatonin 3 MG TABLET 6 MG PO (20:31)
[2024-01-16] MEDS: traZODone HCL 50 MG TABLET PO (20:31)
[2024-01-16 20:43] LABS: Glucose, Whole Blood 165 mg/dL (60-115)
[2024-01-17 05:31] LABS: Glucose, Whole Blood 114 mg/dL (60-115)
[2024-01-17 08:00] VITALS: BP 143/65; PULSE 52; RESP 18; TEMP 37; O2SAT 97
[2024-01-17] MEDS: Insulin Glargine,Hum.rec.anlog 100 UNIT/ML 10 ML VIAL 6 UNIT SUBCUT (08:07)
[2024-01-17] MEDS: polyethylene glycoL 3350 17 GM POWD.PACK PO (08:07)
[2024-01-17] MEDS: Docusate Sodium 100 MG CAPSULE PO ×2 (08:08→19:27)
[2024-01-17] MEDS: HaloperidoL 1 MG TABLET PO ×2 (08:08→16:48)
[2024-01-17] MEDS: Sertraline HCL 50 MG TABLET 150 MG PO (08:08)
[2024-01-17] MEDS: Memantine HCl 10 MG TABLET PO ×2 (08:08→19:27)
[2024-01-17] MEDS: Magnesium Oxide 400 MG TABLET PO ×2 (08:08→16:48)
--- NOTE | 2024-01-17 17:02 | P.PNPSI_ITS ---
Subjective Subjective Date of Service: 01/17/24 Reason For Visit: hallucinations confusion Interim History: Per nursing, pt slept through the night. She reports doing well and denies any physical concerns. She is taking medications as prescribed. No behavioral concerns. bright affect, pleasant on approach. Review of Systems Review of Systems unremarkable Yes all other systems are reviewed and are negative and Unobtainable due to mental status Constitutional: Reports as per HPI, Denies chills, Denies fatigue, Denies fever(s) and Denies headache(s) Denies headache(s) Cardiovascular: Denies chest pain and Denies dyspnea Respiratory: Denies cough and Denies dyspnea Gastrointestinal: Denies abdominal pain, Denies constipation and Denies vomiting Denies headache(s) and Denies focal weakness Psychiatric: Denies auditory hallucinations, Reports hallucinations (Per the patient's daughter. Patient denies this), Denies tactile hallucinations and Denies suicidal ideation Endocrine: Denies fatigue Mental Status Exam Mental Status Exam Patient Appearance: Well Grooomed and Appropriate Patient Orientation: Person Level of Consciousness: Awake Patient Behavior: Appropriate, Cooperative and Good Eye Contact Behavior Comments: Eyes remain closed Mood Description: Calm Affect Description: Calm and Appropriate Patient Cognition Impaired: Yes Ability to Follow Directions: Good Speech Pattern: Clear Memory Description: Working Impaired Diagnostics Vital Signs (24Hr): Vital Signs - 24 hr 01/16/24 19:35 01/17/24 08:00 Temperature 98.2 F 98.6 F Pulse Rate 65 52 Respiratory Rate 18 18 Blood Pressure 119/69 143/65 H Pulse Oximetry 99 97 Oxygen Delivery Method Room Air Room Air BMI result Body Mass Index 27.5 Labs 11/13/23 08:28 01/03/24 07:55 Labs: Laboratory Results - last 48 hr 01/15/24 01/16/24 01/16/24 19:49 06:20 20:30 POC Glucose 147 H 109 165 H 01/17/24 05:25 POC Glucose 114 Imaging Radiology Impressions: ITS Impressions Brain MRI 04/03/23 15:30 IMPRESSION: No acute infarct, mass lesion, intracranial hemorrhage, or evidence of hydrocephalus. Mild nonspecific T2/FLAIR hyperintensity in the cerebral white matter and danny presumably on the basis of chronic microangiopathy. Cervical Spine CT 07/03/23 20:12 IMPRESSION: No acute findings within the cervical spine. The cervical central canal is not well assessed on this CT due to artifact. If weakness persists, a cervical spine MRI would be more sensitive in assessment. Medications Medications Current Medications Acetaminophen (Acetaminophen 325 Mg Tablet) 650 mg PO Q6H PRN PRN Reason: Pain, Mild (Pain Scale 1-3) Last Admin: 01/07/24 07:00 Dose: 650 mg Amphetamine/Dextroamphetamine (Amphetamine Mixed Salts 10 Mg Tablet) 5 mg PO BID@0800,1500 [facility] Docusate Sodium (Docusate Sodium 100 Mg Capsule) 100 mg PO BID [facility] Last Admin: 01/17/24 08:08 Dose: 100 mg Guaifenesin (Guaifenesin La 600 Mg Tab.Er.12h) 600 mg PO BID PRN PRN Reason: Cough Last Admin: 11/02/23 21:54 Dose: 600 mg Haloperidol (Haloperidol 1 Mg Tablet) 1 mg PO Q4H PRN PRN Reason: Hallucinations Last Admin: 01/08/24 21:26 Dose: 1 mg Haloperidol (Haloperidol 1 Mg Tablet) 1 mg PO BID@0830,1630 [facility] Last Admin: 01/17/24 16:48 Dose: 1 mg Hydroxyzine HCl (Hydroxyzine Hcl 25 Mg Tablet) 25 mg PO Q6H PRN PRN Reason: anxiety/restlessness Insulin Glargine (Insulin Glargine,Hum.Rec.Anlog 100 Unit/Ml 10 Ml Vial) 6 unit SUBCUT DAILY [facility] Last Admin: 01/17/24 08:07 Dose: 6 unit Magnesium Oxide (Magnesium Oxide 400 Mg Tablet) 400 mg PO BIDPC [facility] Last Admin: 01/17/24 16:48 Dose: 400 mg Melatonin (Melatonin 3 Mg Tablet) 6 mg PO BEDTIME [facility] Last Admin: 01/16/24 20:31 Dose: 6 mg Memantine (Memantine Hcl 10 Mg Tablet) 10 mg PO BID [facility] Last Admin: 01/17/24 08:08 Dose: 10 mg Polyethylene Glycol (Polyethylene Glycol 3350 17 Gm Powd.Pack) 17 gm PO DAILY [facility] Last Admin: 01/17/24 08:07 Dose: 17 gm Senna (Sennosides 8.6 Mg Tablet) 17.2 mg PO BEDTIME [facility] Last Admin: 01/16/24 20:30 Dose: 17.2 mg Sertraline HCl (Sertraline Hcl 50 Mg Tablet) 150 mg PO DAILY [facility] Last Admin: 01/17/24 08:08 Dose: 150 mg Trazodone HCl (Trazodone Hcl 50 Mg Tablet) 50 mg PO BEDTIME PRN PRN Reason: Insomnia Last Admin: 01/16/24 20:31 Dose: 50 mg Allergies Allergies Allergy/AdvReac Type Severity Reaction Status Date / Time No Known Allergies Allergy Verified 03/23/23 18:13 Assessment & Plan Assessment & Plan (1) Alzheimer's dementia: Status: Acute Code(s): G30.9 - Alzheimer's disease, unspecified; F02.80 - Dementia in other diseases classified elsewhere, unspecified severity, without behavioral disturbance, psychotic disturbance, mood disturbance, and anxiety Assessment and Plan: August 24 58 years old woman with relative young age onset at Alzheimer dementia but overall clinical picture is affected by significant depression, which continues to be the predominant feature of for clinical picture. Conventional dementia medicines such as donepezil or memantine can be tried but usually do not make significant difference. I would suggest memantine 10 mg twice a day and donepezil 10 mg daily. Recently a new dementia at drug for Alzheimer was approved but only for relatively mild dementia or mild cognitive impairment type of patients. She would not qualify for that drug. 10/18 Patient sitting in chair in the day room, head leaning over to 1 side, resting. When asked how she is doing she says that she has diabetes and that she takes meds for that. She asks if continuity writer will be down here again. Staff reports no changes in behavior but seems to have more frequent lucid moments. 10/27 continue tx. hold adderall due to increase irritability now that she is covid positive. 10/29: symptomatic of COVID - URI Sx. VSS. no change in mental health presentation. continue current mgmt. 10/30: continues laid low by COVID. psych presentation essentially unchanged. continue current mgmt, monitor VS. 10/31 continue tx. 11/05 CTP no change 11/06/23 - CTP 11/11/2023: No changes 11/12/2023: No changes to current plan / continue tx. 12/08: no changes 12/09: no changes 12/11 continue tx. 12/16/23 Continue tx. 12/17/23 Continue tx. 12/23: Continue current regimen and plans 12/24: Continue current regimen and plans 12/25: Continue current plans and regimen 01/04 continue tx. 01/05: stable. continue current mgmt. 01/06: stable. continue current mgmt. Plan 1. Continue with current treatment. 2. Waiting for placement. Plan Plan continue with same treatment Reason for continued inpatient stay Substantial Risk for: inability to function Time Spent With Patient Time: Total time managing care of this patient today ____ minutes.
[2024-01-17 19:27] LABS: Glucose, Whole Blood 150 mg/dL (60-115)
[2024-01-17] MEDS: Melatonin 3 MG TABLET 6 MG PO (19:27)
[2024-01-17] MEDS: Sennosides 8.6 MG TABLET 17.2 MG PO (19:27)
[2024-01-17] MEDS: traZODone HCL 50 MG TABLET PO (19:27)
[2024-01-17 21:07] VITALS: BP 111/59; PULSE 59; RESP 18; TEMP 36.1; O2SAT 98
[2024-01-18 06:48] LABS: Glucose, Whole Blood 115 mg/dL (60-115)
[2024-01-18 07:50] VITALS: BP 129/58; PULSE 55; RESP 16; TEMP 36.2; O2SAT 97
[2024-01-18] MEDS: HaloperidoL 1 MG TABLET PO ×2 (08:13→17:04)
[2024-01-18] MEDS: Sertraline HCL 50 MG TABLET 150 MG PO (08:13)
[2024-01-18] MEDS: Magnesium Oxide 400 MG TABLET PO ×2 (08:13→17:04)
[2024-01-18] MEDS: Insulin Glargine,Hum.rec.anlog 100 UNIT/ML 10 ML VIAL 6 UNIT SUBCUT (08:13)
[2024-01-18] MEDS: Memantine HCl 10 MG TABLET PO ×2 (08:13→21:40)
[2024-01-18] MEDS: Docusate Sodium 100 MG CAPSULE PO ×2 (08:13→21:40)
[2024-01-18] MEDS: polyethylene glycoL 3350 17 GM POWD.PACK PO (08:14)
[2024-01-18 13:15] VITALS: BMI 27.4
[2024-01-18 18:00] VITALS: BP 140/66; PULSE 57; RESP 18; TEMP 36.6; O2SAT 100
[2024-01-18] MEDS: Melatonin 3 MG TABLET 6 MG PO (21:39)
[2024-01-18] MEDS: Sennosides 8.6 MG TABLET 17.2 MG PO (21:39)
[2024-01-18] MEDS: hydrOXYzine HCL 25 MG TABLET PO (21:40)
--- NOTE | 2024-01-18 21:43 | P.PNPSI_ITS ---
Subjective Subjective Date of Service: 01/18/24 Reason For Visit: hallucinations confusion Interim History: Per nursing, pt slept through the night. She reports doing well and denies any physical concerns. She is taking medications as prescribed. No behavioral concerns. bright affect, pleasant on approach. Review of Systems Review of Systems unremarkable Yes all other systems are reviewed and are negative and Unobtainable due to mental status Constitutional: Reports as per HPI, Denies chills, Denies fatigue, Denies fever(s) and Denies headache(s) Denies headache(s) Cardiovascular: Denies chest pain and Denies dyspnea Respiratory: Denies cough and Denies dyspnea Gastrointestinal: Denies abdominal pain, Denies constipation and Denies vomiting Denies headache(s) and Denies focal weakness Psychiatric: Denies auditory hallucinations, Reports hallucinations (Per the patient's daughter. Patient denies this), Denies tactile hallucinations and Denies suicidal ideation Endocrine: Denies fatigue Mental Status Exam Mental Status Exam Patient Appearance: Well Grooomed and Appropriate Patient Orientation: Person Level of Consciousness: Awake Patient Behavior: Appropriate, Cooperative and Good Eye Contact Behavior Comments: Eyes remain closed Mood Description: Calm Affect Description: Calm and Appropriate Patient Cognition Impaired: Yes Ability to Follow Directions: Good Speech Pattern: Clear Memory Description: Working Impaired Diagnostics Vital Signs (24Hr): Vital Signs - 24 hr 01/18/24 07:50 Temperature 97.2 F Pulse Rate 55 Respiratory Rate 16 Blood Pressure 129/58 L Pulse Oximetry 97 Oxygen Delivery Method Room Air BMI result Body Mass Index 27.4 Labs 11/13/23 08:28 01/03/24 07:55 Labs: Laboratory Results - last 48 hr 01/17/24 01/17/24 01/18/24 05:25 19:23 06:42 POC Glucose 114 150 H 115 Imaging Radiology Impressions: ITS Impressions Brain MRI 04/03/23 15:30 IMPRESSION: No acute infarct, mass lesion, intracranial hemorrhage, or evidence of hydrocephalus. Mild nonspecific T2/FLAIR hyperintensity in the cerebral white matter and danny presumably on the basis of chronic microangiopathy. Cervical Spine CT 07/03/23 20:12 IMPRESSION: No acute findings within the cervical spine. The cervical central canal is not well assessed on this CT due to artifact. If weakness persists, a cervical spine MRI would be more sensitive in assessment. Medications Medications Current Medications Acetaminophen (Acetaminophen 325 Mg Tablet) 650 mg PO Q6H PRN PRN Reason: Pain, Mild (Pain Scale 1-3) Last Admin: 01/07/24 07:00 Dose: 650 mg Amphetamine/Dextroamphetamine (Amphetamine Mixed Salts 10 Mg Tablet) 5 mg PO BID@0800,1500 [facility] Docusate Sodium (Docusate Sodium 100 Mg Capsule) 100 mg PO BID [facility] Last Admin: 01/18/24 08:13 Dose: 100 mg Guaifenesin (Guaifenesin La 600 Mg Tab.Er.12h) 600 mg PO BID PRN PRN Reason: Cough Last Admin: 11/02/23 21:54 Dose: 600 mg Haloperidol (Haloperidol 1 Mg Tablet) 1 mg PO Q4H PRN PRN Reason: Hallucinations Last Admin: 01/08/24 21:26 Dose: 1 mg Haloperidol (Haloperidol 1 Mg Tablet) 1 mg PO BID@0830,1630 [facility] Last Admin: 01/18/24 17:04 Dose: 1 mg Hydroxyzine HCl (Hydroxyzine Hcl 25 Mg Tablet) 25 mg PO Q6H PRN PRN Reason: anxiety/restlessness Insulin Glargine (Insulin Glargine,Hum.Rec.Anlog 100 Unit/Ml 10 Ml Vial) 6 unit SUBCUT DAILY [facility] Last Admin: 01/18/24 08:13 Dose: 6 unit Magnesium Oxide ([facility]ide 400 Mg Tablet) [facility] Last Admin: 01/18/24 17:04 Dose: 400 mg Melatonin (Melatonin 3 Mg Tablet) 6 mg PO BEDTIME [facility] Last Admin: 01/17/24 19:27 Dose: 6 mg Memantine (Memantine Hcl 10 Mg Tablet) 10 mg PO BID [facility] Last Admin: 01/18/24 08:13 Dose: 10 mg Polyethylene Glycol (Polyethylene Glycol 3350 17 Gm Powd.Pack) 17 gm PO DAILY [facility] Last Admin: 01/18/24 08:14 Dose: 17 gm Senna (Sennosides 8.6 Mg Tablet) 17.2 mg PO BEDTIME [facility] Last Admin: 01/17/24 19:27 Dose: 17.2 mg Sertraline HCl (Sertraline Hcl 50 Mg Tablet) 150 mg PO DAILY [facility] Last Admin: 01/18/24 08:13 Dose: 150 mg Trazodone HCl (Trazodone Hcl 50 Mg Tablet) 50 mg PO BEDTIME PRN PRN Reason: Insomnia Last Admin: 01/17/24 19:27 Dose: 50 mg Allergies Allergies Allergy/AdvReac Type Severity Reaction Status Date / Time No Known Allergies Allergy Verified 03/23/23 18:13 Assessment & Plan Assessment & Plan (1) Alzheimer's dementia: Status: Acute Code(s): G30.9 - Alzheimer's disease, unspecified; F02.80 - Dementia in other diseases classified elsewhere, unspecified severity, without behavioral disturbance, psychotic disturbance, mood disturbance, and anxiety Assessment and Plan: August 24 58 years old woman with relative young age onset at Alzheimer dementia but overall clinical picture is affected by significant depression, which continues to be the predominant feature of for clinical picture. Conventional dementia medicines such as donepezil or memantine can be tried but usually do not make significant difference. I would suggest memantine 10 mg twice a day and donepezil 10 mg daily. Recently a new dementia at drug for Alzheimer was approved but only for relatively mild dementia or mild cognitive impairment type of patients. She would not qualify for that drug. 10/18 Patient sitting in chair in the day room, head leaning over to 1 side, resting. When asked how she is doing she says that she has diabetes and that she takes meds for that. She asks if video games storywriter will be down here again. Staff reports no changes in behavior but seems to have more frequent lucid moments. 10/27 continue tx. hold adderall due to increase irritability now that she is covid positive. 10/29: symptomatic of COVID - URI Sx. VSS. no change in mental health presentation. continue current mgmt. 10/30: continues laid low by COVID. psych presentation essentially unchanged. continue current mgmt, monitor VS. 10/31 continue tx. 11/05 CTP no change 11/06/23 - CTP 11/11/2023: No changes 11/12/2023: No changes to current plan 12/08 continue tx. 12/08: no changes 12/09: no changes 12/11 continue tx. 12/16/23 Continue tx. 12/17/23 Continue tx. 12/23: Continue current regimen and plans 12/24: Continue current regimen and plans 12/25: Continue current plans and regimen 01/04 continue tx. 01/05: stable. continue current mgmt. 01/06: stable. continue current mgmt. Plan 1. Continue with current treatment. 2. Waiting for placement. Plan Plan continue with same treatment Reason for continued inpatient stay Substantial Risk for: inability to function Time Spent With Patient Time: Total time managing care of this patient today ____ minutes.
[2024-01-19 00:01] LABS: Glucose, Whole Blood 177 mg/dL (60-115)
[2024-01-19 06:00] VITALS: BP 166/75; PULSE 55; RESP 18; TEMP 36.6; O2SAT 100
[2024-01-19 06:38] LABS: Glucose, Whole Blood 105 mg/dL (60-115)
[2024-01-19] MEDS: polyethylene glycoL 3350 17 GM POWD.PACK PO (08:27)
[2024-01-19] MEDS: Insulin Glargine,Hum.rec.anlog 100 UNIT/ML 10 ML VIAL 6 UNIT SUBCUT (08:28)
[2024-01-19] MEDS: Magnesium Oxide 400 MG TABLET PO ×2 (08:29→16:50)
[2024-01-19] MEDS: Sertraline HCL 50 MG TABLET 150 MG PO (08:29)
[2024-01-19] MEDS: Memantine HCl 10 MG TABLET PO ×2 (08:30→20:17)
[2024-01-19] MEDS: HaloperidoL 1 MG TABLET PO ×2 (08:30→16:50)
[2024-01-19] MEDS: Docusate Sodium 100 MG CAPSULE PO ×2 (08:34→20:18)
--- NOTE | 2024-01-19 16:09 | HO.PSYCHPN ---
Subjective Subjective Date of Service: 01/19/24 Reason For Visit: hallucinations confusion Subjective Notes: Conditional Voluntary Interim History: Per nursing, pt slept through the night. She reports doing well and denies any physical concerns. She is taking medications as prescribed. No behavioral concerns. bright affect, pleasant on approach. Review of Systems Review of Systems unremarkable Yes all other systems are reviewed and are negative and Unobtainable due to mental status Constitutional: Reports as per HPI, Denies chills, Denies fatigue, Denies fever(s) and Denies headache(s) Denies headache(s) Cardiovascular: Denies chest pain and Denies dyspnea Respiratory: Denies cough and Denies dyspnea Gastrointestinal: Denies abdominal pain, Denies constipation and Denies vomiting Denies headache(s) and Denies focal weakness Psychiatric: Denies auditory hallucinations, Reports hallucinations (Per the patient's daughter. Patient denies this), Denies tactile hallucinations and Denies suicidal ideation Endocrine: Denies fatigue Mental Status Exam Mental Status Exam Patient Appearance: Well Grooomed and Appropriate Patient Orientation: Person Level of Consciousness: Awake Patient Behavior: Appropriate, Cooperative and Good Eye Contact Behavior Comments: Eyes remain closed Mood Description: Calm Affect Description: Calm and Appropriate Patient Cognition Impaired: Yes Ability to Follow Directions: Good Speech Pattern: Clear Memory Description: Working Impaired Diagnostics Vital Signs (24Hr): Vital Signs - 24 hr 01/18/24 18:00 01/19/24 06:00 Temperature 97.9 F 97.8 F Pulse Rate 57 55 Respiratory Rate 18 18 Blood Pressure 140/66 H 166/75 H Pulse Oximetry 100 100 Oxygen Delivery Method Room Air Room Air BMI result Body Mass Index 27.4 Labs 11/13/23 08:28 01/03/24 07:55 Labs: Laboratory Results - last 48 hr 01/17/24 01/18/24 01/18/24 19:23 06:42 20:05 POC Glucose 150 H 115 177 H 01/19/24 05:54 POC Glucose 105 Imaging Radiology Impressions: ITS Impressions Brain MRI 04/03/23 15:30 IMPRESSION: No acute infarct, mass lesion, intracranial hemorrhage, or evidence of hydrocephalus. Mild nonspecific T2/FLAIR hyperintensity in the cerebral white matter and danny presumably on the basis of chronic microangiopathy. Cervical Spine CT 07/03/23 20:12 IMPRESSION: No acute findings within the cervical spine. The cervical central canal is not well assessed on this CT due to artifact. If weakness persists, a cervical spine MRI would be more sensitive in assessment. Medications Medications Current Medications Acetaminophen (Acetaminophen 325 Mg Tablet) 650 mg PO Q6H PRN PRN Reason: Pain, Mild (Pain Scale 1-3) Last Admin: 01/07/24 07:00 Dose: 650 mg Amphetamine/Dextroamphetamine (Amphetamine Mixed Salts 10 Mg Tablet) 5 mg PO BID@0800,1500 [facility] Docusate Sodium (Docusate Sodium 100 Mg Capsule) 100 mg PO BID [facility] Last Admin: 01/19/24 08:34 Dose: 100 mg Guaifenesin (Guaifenesin La 600 Mg Tab.Er.12h) 600 mg PO BID PRN PRN Reason: Cough Last Admin: 11/02/23 21:54 Dose: 600 mg Haloperidol (Haloperidol 1 Mg Tablet) 1 mg PO Q4H PRN PRN Reason: Hallucinations Last Admin: 01/08/24 21:26 Dose: 1 mg Haloperidol (Haloperidol 1 Mg Tablet) 1 mg PO BID@0830,1630 [facility] Last Admin: 01/19/24 08:30 Dose: 1 mg Hydroxyzine HCl (Hydroxyzine Hcl 25 Mg Tablet) 25 mg PO Q6H PRN PRN Reason: anxiety/restlessness Last Admin: 01/18/24 21:40 Dose: 25 mg Insulin Glargine (Insulin Glargine,Hum.Rec.Anlog 100 Unit/Ml 10 Ml Vial) 6 unit SUBCUT DAILY [facility] Last Admin: 01/19/24 08:28 Dose: 6 unit Magnesium Oxide (Magnesium Oxide 400 Mg Tablet) 400 mg PO BIDPC [facility] Last Admin: 01/19/24 08:29 Dose: 400 mg Melatonin (Melatonin 3 Mg Tablet) 6 mg PO BEDTIME [facility] Last Admin: 01/18/24 21:39 Dose: 6 mg Memantine (Memantine Hcl 10 Mg Tablet) 10 mg PO BID [facility] Last Admin: 01/19/24 08:30 Dose: 10 mg Polyethylene Glycol (Polyethylene Glycol 3350 17 Gm Powd.Pack) 17 gm PO DAILY [facility] Last Admin: 01/19/24 08:27 Dose: 17 gm Senna (Sennosides 8.6 Mg Tablet) 17.2 mg PO BEDTIME [facility] Last Admin: 01/18/24 21:39 Dose: 17.2 mg Sertraline HCl (Sertraline Hcl 50 Mg Tablet) 150 mg PO DAILY [facility] Last Admin: 01/19/24 08:29 Dose: 150 mg Trazodone HCl (Trazodone Hcl 50 Mg Tablet) 50 mg PO BEDTIME PRN PRN Reason: Insomnia Last Admin: 01/17/24 19:27 Dose: 50 mg Allergies Allergies Allergy/AdvReac Type Severity Reaction Status Date / Time No Known Allergies Allergy Verified 03/23/23 18:13 Assessment & Plan Assessment & Plan (1) Alzheimer's dementia: Status: Acute Code(s): G30.9 - Alzheimer's disease, unspecified; F02.80 - Dementia in other diseases classified elsewhere, unspecified severity, without behavioral disturbance, psychotic disturbance, mood disturbance, and anxiety Assessment and Plan: August 24 58 years old woman with relative young age onset at Alzheimer dementia but overall clinical picture is affected by significant depression, which continues to be the predominant feature of for clinical picture. Conventional dementia medicines such as donepezil or memantine can be tried but usually do not make significant difference. I would suggest memantine 10 mg twice a day and donepezil 10 mg daily. Recently a new dementia at drug for Alzheimer was approved but only for relatively mild dementia or mild cognitive impairment type of patients. She would not qualify for that drug. 10/18 Patient sitting in chair in the day room, head leaning over to 1 side, resting. When asked how she is doing she says that she has diabetes and that she takes meds for that. She asks if communications writer will be down here again. Staff reports no changes in behavior but seems to have more frequent lucid moments. 10/27 continue tx. hold adderall due to increase irritability now that she is covid positive. 10/29: symptomatic of COVID - URI Sx. VSS. no change in mental health presentation. continue current mgmt. 10/30: continues laid low by COVID. psych presentation essentially unchanged. continue current mgmt, monitor VS. 10/31 continue tx. 11/05 CTP no change 11/06/23 - CTP 11/11/2023: No changes 11/12/2023: No changes to current plan 12/08 continue tx. 12/08: no changes 12/09: no changes 12/11 continue tx. 12/16/23 Continue tx. 12/17/23 Continue tx. 12/23: Continue current regimen and plans 12/24: Continue current regimen and plans 12/25: Continue current plans and regimen 01/04 continue tx. 01/05: stable. continue current mgmt. 01/06: stable. continue current mgmt. Plan 1. Continue with current treatment. 2. Waiting for placement. Plan Plan continue with same treatment Reason for continued inpatient stay Substantial Risk for: inability to function Time Spent With Patient Time: Total time managing care of this patient today ____ minutes.
[2024-01-19 18:00] VITALS: BP 114/56; PULSE 67; RESP 16; TEMP 36.7; O2SAT 97
[2024-01-19] MEDS: Sennosides 8.6 MG TABLET 17.2 MG PO (20:16)
[2024-01-19] MEDS: hydrOXYzine HCL 25 MG TABLET PO (20:17)
[2024-01-19] MEDS: traZODone HCL 50 MG TABLET PO (20:17)
[2024-01-19] MEDS: Melatonin 3 MG TABLET 6 MG PO (20:18)
[2024-01-19 21:01] LABS: Glucose, Whole Blood 147 mg/dL (60-115)
[2024-01-20 06:37] LABS: Glucose, Whole Blood 90 mg/dL (60-115)
[2024-01-20 07:50] VITALS: BP 112/62; PULSE 55; RESP 18; TEMP 36.7; O2SAT 98
[2024-01-20] MEDS: Insulin Glargine,Hum.rec.anlog 100 UNIT/ML 10 ML VIAL 6 UNIT SUBCUT (08:32)
[2024-01-20] MEDS: polyethylene glycoL 3350 17 GM POWD.PACK PO (08:32)
[2024-01-20] MEDS: Docusate Sodium 100 MG CAPSULE PO ×2 (08:33→20:15)
[2024-01-20] MEDS: Magnesium Oxide 400 MG TABLET PO ×2 (08:33→16:33)
[2024-01-20] MEDS: Sertraline HCL 50 MG TABLET 150 MG PO (08:33)
[2024-01-20] MEDS: Memantine HCl 10 MG TABLET PO ×2 (08:33→20:14)
[2024-01-20] MEDS: HaloperidoL 1 MG TABLET PO ×2 (08:33→16:33)
[2024-01-20] MEDS: Sennosides 8.6 MG TABLET 17.2 MG PO (20:12)
[2024-01-20] MEDS: Melatonin 3 MG TABLET 6 MG PO (20:13)
[2024-01-20] MEDS: hydrOXYzine HCL 25 MG TABLET PO (20:13)
[2024-01-20] MEDS: traZODone HCL 50 MG TABLET PO (20:14)
[2024-01-21 00:53] LABS: Glucose, Whole Blood 123 mg/dL (60-115)
[2024-01-21 06:00] VITALS: BP 133/74; PULSE 56; RESP 16; TEMP 36.5; O2SAT 100
[2024-01-21 06:28] LABS: Glucose, Whole Blood 92 mg/dL (60-115)
[2024-01-21] MEDS: HaloperidoL 1 MG TABLET PO ×2 (08:12→16:56)
[2024-01-21] MEDS: Docusate Sodium 100 MG CAPSULE PO ×2 (08:12→21:17)
[2024-01-21] MEDS: Magnesium Oxide 400 MG TABLET PO ×2 (08:12→16:56)
[2024-01-21] MEDS: Sertraline HCL 50 MG TABLET 150 MG PO (08:12)
[2024-01-21] MEDS: Memantine HCl 10 MG TABLET PO ×2 (08:13→21:17)
[2024-01-21] MEDS: Insulin Glargine,Hum.rec.anlog 100 UNIT/ML 10 ML VIAL 6 UNIT SUBCUT (08:13)
[2024-01-21] MEDS: polyethylene glycoL 3350 17 GM POWD.PACK PO (09:14)
--- NOTE | 2024-01-21 11:00 | HO.PSYCHPN ---
Subjective Subjective Date of Service: 01/21/24 Reason For Visit: hallucinations confusion Subjective Notes: Conditional Voluntary Interim History: Patient was seen and discussed in rounds today. Records and plans were reviewed. She has been in bed, pacing the floors. Eating and sleeping adequately. Continues to have some delusions. No changes were made. No behavioral issues reported. Mental Status Exam Mental Status Exam Patient Appearance: Well Grooomed and Appropriate Patient Orientation: Person Level of Consciousness: Awake Patient Behavior: Appropriate, Cooperative and Good Eye Contact Behavior Comments: Eyes remain closed Mood Description: Calm Affect Description: Calm and Appropriate Patient Cognition Impaired: Yes Ability to Follow Directions: Good Speech Pattern: Clear Memory Description: Working Impaired Diagnostics Vital Signs (24Hr): Vital Signs - 24 hr 01/21/24 06:00 Temperature 97.7 F Pulse Rate 56 Respiratory Rate 16 Blood Pressure 133/74 Pulse Oximetry 100 Oxygen Delivery Method Room Air BMI result Body Mass Index 27.4 Labs 11/13/23 08:28 01/03/24 07:55 Labs: Laboratory Results - last 48 hr 01/19/24 01/20/24 01/20/24 20:37 06:03 20:30 POC Glucose 147 H 90 123 H 01/21/24 06:04 POC Glucose 92 Imaging Radiology Impressions: ITS Impressions Brain MRI 04/03/23 15:30 IMPRESSION: No acute infarct, mass lesion, intracranial hemorrhage, or evidence of hydrocephalus. Mild nonspecific T2/FLAIR hyperintensity in the cerebral white matter and danny presumably on the basis of chronic microangiopathy. Cervical Spine CT 07/03/23 20:12 IMPRESSION: No acute findings within the cervical spine. The cervical central canal is not well assessed on this CT due to artifact. If weakness persists, a cervical spine MRI would be more sensitive in assessment. Medications Medications Current Medications Acetaminophen (Acetaminophen 325 Mg Tablet) 650 mg PO Q6H PRN PRN Reason: Pain, Mild (Pain Scale 1-3) Last Admin: 01/07/24 07:00 Dose: 650 mg Amphetamine/Dextroamphetamine (Amphetamine Mixed Salts 10 Mg Tablet) 5 mg PO BID@0800,1500 [facility] Docusate Sodium (Docusate Sodium 100 Mg Capsule) 100 mg PO BID [facility] Last Admin: 01/21/24 08:12 Dose: 100 mg Guaifenesin (Guaifenesin La 600 Mg Tab.Er.12h) 600 mg PO BID PRN PRN Reason: Cough Last Admin: 11/02/23 21:54 Dose: 600 mg Haloperidol (Haloperidol 1 Mg Tablet) 1 mg PO Q4H PRN PRN Reason: Hallucinations Last Admin: 01/08/24 21:26 Dose: 1 mg Haloperidol (Haloperidol 1 Mg Tablet) 1 mg PO BID@0830,1630 [facility] Last Admin: 01/21/24 08:12 Dose: 1 mg Hydroxyzine HCl (Hydroxyzine Hcl 25 Mg Tablet) 25 mg PO Q6H PRN PRN Reason: anxiety/restlessness Last Admin: 01/20/24 20:13 Dose: 25 mg Insulin Glargine (Insulin Glargine,Hum.Rec.Anlog 100 Unit/Ml 10 Ml Vial) 6 unit SUBCUT DAILY [facility] Last Admin: 01/21/24 08:13 Dose: 6 unit Magnesium Oxide (Magnesium Oxide 400 Mg Tablet) 400 mg PO BIDPC [facility] Last Admin: 01/21/24 08:12 Dose: 400 mg Melatonin (Melatonin 3 Mg Tablet) 6 mg PO BEDTIME [facility] Last Admin: 01/20/24 20:13 Dose: 6 mg Memantine (Memantine Hcl 10 Mg Tablet) 10 mg PO BID [facility] Last Admin: 01/21/24 08:13 Dose: 10 mg Polyethylene Glycol (Polyethylene Glycol 3350 17 Gm Powd.Pack) 17 gm PO DAILY [facility] Last Admin: 01/21/24 09:14 Dose: 17 gm Senna (Sennosides 8.6 Mg Tablet) 17.2 mg PO BEDTIME [facility] Last Admin: 01/20/24 20:12 Dose: 17.2 mg Sertraline HCl (Sertraline Hcl 50 Mg Tablet) 150 mg PO DAILY [facility] Last Admin: 01/21/24 08:12 Dose: 150 mg Trazodone HCl (Trazodone Hcl 50 Mg Tablet) 50 mg PO BEDTIME PRN PRN Reason: Insomnia Last Admin: 01/20/24 20:14 Dose: 50 mg Allergies Allergies Allergy/AdvReac Type Severity Reaction Status Date / Time No Known Allergies Allergy Verified 03/23/23 18:13 Assessment & Plan Assessment & Plan (1) Alzheimer's dementia: Status: Acute Code(s): G30.9 - Alzheimer's disease, unspecified; F02.80 - Dementia in other diseases classified elsewhere, unspecified severity, without behavioral disturbance, psychotic disturbance, mood disturbance, and anxiety Assessment and Plan: August 24 58 years old woman with relative young age onset at Alzheimer dementia but overall clinical picture is affected by significant depression, which continues to be the predominant feature of for clinical picture. Conventional dementia medicines such as donepezil or memantine can be tried but usually do not make significant difference. I would suggest memantine 10 mg twice a day and donepezil 10 mg daily. Recently a new dementia at drug for Alzheimer was approved but only for relatively mild dementia or mild cognitive impairment type of patients. She would not qualify for that drug. 10/18 Patient sitting in chair in the day room, head leaning over to 1 side, resting. When asked how she is doing she says that she has diabetes and that she takes meds for that. She asks if financial writer will be down here again. Staff reports no changes in behavior but seems to have more frequent lucid moments. 10/27 continue tx. hold adderall due to increase irritability now that she is covid positive. 10/29: symptomatic of COVID - URI Sx. VSS. no change in mental health presentation. continue current mgmt. 10/30: continues laid low by COVID. psych presentation essentially unchanged. continue current mgmt, monitor VS. 10/31 continue tx. 11/05 CTP no change 11/06/23 - CTP 11/11/2023: No changes 11/12/2023: No changes to current plan 12/08 continue tx. 12/08: no changes 12/09: no changes 12/11 continue tx. 12/16/23 Continue tx. 12/17/23 Continue tx. 12/23: Continue current regimen and plans 12/24: Continue current regimen and plans 12/25: Continue current plans and regimen 01/04 continue tx. 01/05: stable. continue current mgmt. 01/06: stable. continue current mgmt. 01/21/2024: Continue current regimen and plans Plan 1. Continue with current treatment. 2. Waiting for placement. Plan Plan continue with same treatment Reason for continued inpatient stay Substantial Risk for: med/psych decompensation Time Spent With Patient Time: Total time managing care of this patient today ____ minutes.
[2024-01-21 18:00] VITALS: BP 146/66; PULSE 64; RESP 18; TEMP 36.9; O2SAT 99
[2024-01-21 19:57] LABS: Glucose, Whole Blood 156 mg/dL (60-115)
[2024-01-21] MEDS: Melatonin 3 MG TABLET 6 MG PO (21:16)
[2024-01-21] MEDS: traZODone HCL 50 MG TABLET PO (21:17)
[2024-01-21] MEDS: hydrOXYzine HCL 25 MG TABLET PO (21:17)
[2024-01-21] MEDS: Sennosides 8.6 MG TABLET 17.2 MG PO (21:17)
[2024-01-22 06:45] LABS: Glucose, Whole Blood 108 mg/dL (60-115)
[2024-01-22 08:01] VITALS: BP 108/60; PULSE 63; RESP 16; TEMP 36.8; O2SAT 97
[2024-01-22] MEDS: Docusate Sodium 100 MG CAPSULE PO ×2 (08:23→19:57)
[2024-01-22] MEDS: Memantine HCl 10 MG TABLET PO ×2 (08:23→19:57)
[2024-01-22] MEDS: Sertraline HCL 50 MG TABLET 150 MG PO (08:23)
[2024-01-22] MEDS: HaloperidoL 1 MG TABLET PO ×2 (08:23→16:43)
[2024-01-22] MEDS: Insulin Glargine,Hum.rec.anlog 100 UNIT/ML 10 ML VIAL 6 UNIT SUBCUT (08:23)
[2024-01-22] MEDS: Magnesium Oxide 400 MG TABLET PO ×2 (08:23→16:43)
[2024-01-22] MEDS: polyethylene glycoL 3350 17 GM POWD.PACK PO (08:24)
--- NOTE | 2024-01-22 09:48 | PC.NURSE ---
Notified Kiki Hammond NP that morning insulin and metformin was held as Elroy declined breakfast. BP 101/62 supine and Elroy was asymptomatic; Kiki Hammond NP was notified.
--- NOTE | 2024-01-22 15:55 | HO.PSYCHPN ---
Subjective Subjective Date of Service: 01/22/24 Reason For Visit: hallucinations confusion Subjective Notes: Conditional Voluntary Interim History: Pt reports doing well. She is sleeping well. No behavioral concerns. No psychosis or delusions. She is visible on the unit, social with select peers. takes medications as prescribed. awaiting placement. Review of Systems Review of Systems unremarkable Yes all other systems are reviewed and are negative and Unobtainable due to mental status Constitutional: Reports as per HPI, Denies chills, Denies fatigue, Denies fever(s) and Denies headache(s) Denies headache(s) Cardiovascular: Denies chest pain and Denies dyspnea Respiratory: Denies cough and Denies dyspnea Gastrointestinal: Denies abdominal pain, Denies constipation and Denies vomiting Denies headache(s) and Denies focal weakness Psychiatric: Denies auditory hallucinations, Reports hallucinations (Per the patient's daughter. Patient denies this), Denies tactile hallucinations and Denies suicidal ideation Endocrine: Denies fatigue Mental Status Exam Mental Status Exam Patient Appearance: Well Grooomed and Appropriate Patient Orientation: Person Level of Consciousness: Awake Patient Behavior: Appropriate, Cooperative and Good Eye Contact Behavior Comments: Eyes remain closed Mood Description: Calm Affect Description: Calm and Appropriate Patient Cognition Impaired: Yes Ability to Follow Directions: Good Speech Pattern: Clear Memory Description: Working Impaired Diagnostics Vital Signs (24Hr): Vital Signs - 24 hr 01/21/24 18:00 01/22/24 08:01 Temperature 98.5 F 98.3 F Pulse Rate 64 63 Respiratory Rate 18 16 Blood Pressure 146/66 H 108/60 Pulse Oximetry 99 97 Oxygen Delivery Method Room Air Room Air BMI result Body Mass Index 27.4 Labs 11/13/23 08:28 01/03/24 07:55 Labs: Laboratory Results - last 48 hr 01/20/24 01/21/24 01/21/24 20:30 06:04 19:45 POC Glucose 123 H 92 156 H 01/22/24 06:09 POC Glucose 108 Imaging Radiology Impressions: ITS Impressions Brain MRI 04/03/23 15:30 IMPRESSION: No acute infarct, mass lesion, intracranial hemorrhage, or evidence of hydrocephalus. Mild nonspecific T2/FLAIR hyperintensity in the cerebral white matter and danny presumably on the basis of chronic microangiopathy. Cervical Spine CT 07/03/23 20:12 IMPRESSION: No acute findings within the cervical spine. The cervical central canal is not well assessed on this CT due to artifact. If weakness persists, a cervical spine MRI would be more sensitive in assessment. Medications Medications Current Medications Acetaminophen (Acetaminophen 325 Mg Tablet) 650 mg PO Q6H PRN PRN Reason: Pain, Mild (Pain Scale 1-3) Last Admin: 01/07/24 07:00 Dose: 650 mg Amphetamine/Dextroamphetamine (Amphetamine Mixed Salts 10 Mg Tablet) 5 mg PO BID@0800,1500 [facility] Docusate Sodium (Docusate Sodium 100 Mg Capsule) 100 mg PO BID [facility] Last Admin: 01/22/24 08:23 Dose: 100 mg Guaifenesin (Guaifenesin La 600 Mg Tab.Er.12h) 600 mg PO BID PRN PRN Reason: Cough Last Admin: 11/02/23 21:54 Dose: 600 mg Haloperidol (Haloperidol 1 Mg Tablet) 1 mg PO Q4H PRN PRN Reason: Hallucinations Last Admin: 01/08/24 21:26 Dose: 1 mg Haloperidol (Haloperidol 1 Mg Tablet) 1 mg PO BID@0830,1630 [facility] Last Admin: 01/22/24 08:23 Dose: 1 mg Hydroxyzine HCl (Hydroxyzine Hcl 25 Mg Tablet) 25 mg PO Q6H PRN PRN Reason: anxiety/restlessness Last Admin: 01/21/24 21:17 Dose: 25 mg Insulin Glargine (Insulin Glargine,Hum.Rec.Anlog 100 Unit/Ml 10 Ml Vial) 6 unit SUBCUT DAILY [facility] Last Admin: 01/22/24 08:23 Dose: 6 unit Magnesium Oxide (Magnesium Oxide 400 Mg Tablet) 400 mg PO BIDPC [facility] Last Admin: 01/22/24 08:23 Dose: 400 mg Melatonin (Melatonin 3 Mg Tablet) 6 mg PO BEDTIME [facility] Last Admin: 01/21/24 21:16 Dose: 6 mg Memantine (Memantine Hcl 10 Mg Tablet) 10 mg PO BID [facility] Last Admin: 01/22/24 08:23 Dose: 10 mg Polyethylene Glycol (Polyethylene Glycol 3350 17 Gm Powd.Pack) 17 gm PO DAILY [facility] Last Admin: 01/22/24 08:24 Dose: 17 gm Senna (Sennosides 8.6 Mg Tablet) 17.2 mg PO BEDTIME [facility] Last Admin: 01/21/24 21:17 Dose: 17.2 mg Sertraline HCl (Sertraline Hcl 50 Mg Tablet) 150 mg PO DAILY [facility] Last Admin: 01/22/24 08:23 Dose: 150 mg Trazodone HCl (Trazodone Hcl 50 Mg Tablet) 50 mg PO BEDTIME PRN PRN Reason: Insomnia Last Admin: 01/21/24 21:17 Dose: 50 mg Allergies Allergies Allergy/AdvReac Type Severity Reaction Status Date / Time No Known Allergies Allergy Verified 03/23/23 18:13 Assessment & Plan Assessment & Plan (1) Alzheimer's dementia: Status: Acute Code(s): G30.9 - Alzheimer's disease, unspecified; F02.80 - Dementia in other diseases classified elsewhere, unspecified severity, without behavioral disturbance, psychotic disturbance, mood disturbance, and anxiety Assessment and Plan: August 24 58 years old woman with relative young age onset at Alzheimer dementia but overall clinical picture is affected by significant depression, which continues to be the predominant feature of for clinical picture. Conventional dementia medicines such as donepezil or memantine can be tried but usually do not make significant difference. I would suggest memantine 10 mg twice a day and donepezil 10 mg daily. Recently a new dementia at drug for Alzheimer was approved but only for relatively mild dementia or mild cognitive impairment type of patients. She would not qualify for that drug. 10/18 Patient sitting in chair in the day room, head leaning over to 1 side, resting. When asked how she is doing she says that she has diabetes and that she takes meds for that. She asks if marketing underwriter will be down here again. Staff reports no changes in behavior but seems to have more frequent lucid moments. 10/27 continue tx. hold adderall due to increase irritability now that she is covid positive. 10/29: symptomatic of COVID - URI Sx. VSS. no change in mental health presentation. continue current mgmt. 10/30: continues laid low by COVID. psych presentation essentially unchanged. continue current mgmt, monitor VS. 10/31 continue tx. 11/05 CTP no change 11/06/23 - CTP 11/11/2023: No changes 11/12/2023: No changes to current plan 12/08 continue tx. 12/08: no changes 12/09: no changes 12/11 continue tx. 12/16/23 Continue tx. 2/11/24 Continue tx. 12/23: Continue current regimen and plans 12/24: Continue current regimen and plans 12/25: Continue current plans and regimen 01/04 continue tx. 01/05: stable. continue current mgmt. 01/06: stable. continue current mgmt. 01/21/2024: Continue current regimen and plans Plan 1. Continue with current treatment. 2. Waiting for placement. Plan Plan continue with same treatment Reason for continued inpatient stay Substantial Risk for: inability to function Time Spent With Patient Time: Total time managing care of this patient today ____ minutes.
[2024-01-22 19:40] LABS: Glucose, Whole Blood 158 mg/dL (60-115)
[2024-01-22 19:54] LABS: Glucose, Whole Blood 195 mg/dL (60-115)
[2024-01-22] MEDS: Sennosides 8.6 MG TABLET 17.2 MG PO (19:57)
[2024-01-22] MEDS: Melatonin 3 MG TABLET 6 MG PO (19:57)
[2024-01-22] MEDS: traZODone HCL 50 MG TABLET PO (19:57)
[2024-01-22 23:00] VITALS: BP 170/74; PULSE 62; RESP 17; TEMP 35.9; O2SAT 100
[2024-01-23 05:40] LABS: Glucose, Whole Blood 99 mg/dL (60-115)
[2024-01-23 06:00] VITALS: BP 123/83; PULSE 64; RESP 16; TEMP 36.2; O2SAT 95
[2024-01-23] MEDS: Sertraline HCL 50 MG TABLET 150 MG PO (08:07)
[2024-01-23] MEDS: Docusate Sodium 100 MG CAPSULE PO ×2 (08:08→21:14)
[2024-01-23] MEDS: Memantine HCl 10 MG TABLET PO ×2 (08:08→21:14)
[2024-01-23] MEDS: Magnesium Oxide 400 MG TABLET PO ×2 (08:08→16:36)
[2024-01-23] MEDS: Insulin Glargine,Hum.rec.anlog 100 UNIT/ML 10 ML VIAL 6 UNIT SUBCUT (08:08)
[2024-01-23] MEDS: HaloperidoL 1 MG TABLET PO ×2 (08:08→16:36)
--- NOTE | 2024-01-23 10:03 | HO.PSYCHPN ---
Subjective Subjective Date of Service: 01/23/24 Reason For Visit: hallucinations confusion Subjective Notes: Conditional Voluntary Guardianship: Yes Interim History: Pt reports doing well. She is sleeping well. No behavioral concerns. No psychosis or delusions. She is visible on the unit, social with select peers. takes medications as prescribed. awaiting placement. VS- stable. Review of Systems Review of Systems unremarkable Yes all other systems are reviewed and are negative and Unobtainable due to mental status Constitutional: Reports as per HPI, Denies chills, Denies fatigue, Denies fever(s) and Denies headache(s) Denies headache(s) Cardiovascular: Denies chest pain and Denies dyspnea Respiratory: Denies cough and Denies dyspnea Gastrointestinal: Denies abdominal pain, Denies constipation and Denies vomiting Denies headache(s) and Denies focal weakness Psychiatric: Denies auditory hallucinations, Reports hallucinations (Per the patient's daughter. Patient denies this), Denies tactile hallucinations and Denies suicidal ideation Endocrine: Denies fatigue Mental Status Exam Mental Status Exam Patient Appearance: Well Grooomed and Appropriate Patient Orientation: Person Level of Consciousness: Awake Patient Behavior: Appropriate, Cooperative and Good Eye Contact Behavior Comments: Eyes remain closed Mood Description: Calm Affect Description: Calm and Appropriate Patient Cognition Impaired: Yes Ability to Follow Directions: Good Speech Pattern: Clear Memory Description: Working Impaired Diagnostics Vital Signs (24Hr): Vital Signs - 24 hr 01/22/24 23:00 01/23/24 06:00 Temperature 96.6 F L 97.2 F Pulse Rate 62 64 Respiratory Rate 17 16 Blood Pressure 170/74 H 123/83 Pulse Oximetry 100 95 Oxygen Delivery Method Room Air Room Air BMI result Body Mass Index 27.4 Labs 11/13/23 08:28 01/03/24 07:55 Labs: Laboratory Results - last 48 hr 01/21/24 01/22/24 01/22/24 19:45 06:09 19:35 POC Glucose 156 H 108 158 H 01/22/24 01/23/24 19:49 05:35 POC Glucose 195 H 99 Imaging Radiology Impressions: ITS Impressions Brain MRI 04/03/23 15:30 IMPRESSION: No acute infarct, mass lesion, intracranial hemorrhage, or evidence of hydrocephalus. Mild nonspecific T2/FLAIR hyperintensity in the cerebral white matter and danny presumably on the basis of chronic microangiopathy. Cervical Spine CT 07/03/23 20:12 IMPRESSION: No acute findings within the cervical spine. The cervical central canal is not well assessed on this CT due to artifact. If weakness persists, a cervical spine MRI would be more sensitive in assessment. Medications Medications Current Medications Acetaminophen (Acetaminophen 325 Mg Tablet) 650 mg PO Q6H PRN PRN Reason: Pain, Mild (Pain Scale 1-3) Last Admin: 01/07/24 07:00 Dose: 650 mg Amphetamine/Dextroamphetamine (Amphetamine Mixed Salts 10 Mg Tablet) 5 mg PO BID@0800,1500 [facility] Docusate Sodium (Docusate Sodium 100 Mg Capsule) 100 mg PO BID [facility] Last Admin: 01/23/24 08:08 Dose: 100 mg Guaifenesin (Guaifenesin La 600 Mg Tab.Er.12h) 600 mg PO BID PRN PRN Reason: Cough Last Admin: 11/02/23 21:54 Dose: 600 mg Haloperidol (Haloperidol 1 Mg Tablet) 1 mg PO Q4H PRN PRN Reason: Hallucinations Last Admin: 01/08/24 21:26 Dose: 1 mg Haloperidol (Haloperidol 1 Mg Tablet) 1 mg PO BID@0830,1630 [facility] Last Admin: 01/23/24 08:08 Dose: 1 mg Hydroxyzine HCl (Hydroxyzine Hcl 25 Mg Tablet) 25 mg PO Q6H PRN PRN Reason: anxiety/restlessness Last Admin: 01/21/24 21:17 Dose: 25 mg Insulin Glargine (Insulin Glargine,Hum.Rec.Anlog 100 Unit/Ml 10 Ml Vial) 6 unit SUBCUT DAILY [facility] Last Admin: 01/23/24 08:08 Dose: 6 unit Magnesium Oxide (Magnesium Oxide 400 Mg Tablet) 400 mg PO BIDPC [facility] Last Admin: 01/23/24 08:08 Dose: 400 mg Melatonin (Melatonin 3 Mg Tablet) 6 mg PO BEDTIME [facility] Last Admin: 01/22/24 19:57 Dose: 6 mg Memantine (Memantine Hcl 10 Mg Tablet) 10 mg PO BID [facility] Last Admin: 01/23/24 08:08 Dose: 10 mg Polyethylene Glycol (Polyethylene Glycol 3350 17 Gm Powd.Pack) 17 gm PO DAILY [facility] Last Admin: 01/23/24 08:38 Dose: Not Given Senna (Sennosides 8.6 Mg Tablet) 17.2 mg PO BEDTIME [facility] Last Admin: 01/22/24 19:57 Dose: 17.2 mg Sertraline HCl (Sertraline Hcl 50 Mg Tablet) 150 mg PO DAILY [facility] Last Admin: 01/23/24 08:07 Dose: 150 mg Trazodone HCl (Trazodone Hcl 50 Mg Tablet) 50 mg PO BEDTIME PRN PRN Reason: Insomnia Last Admin: 01/22/24 19:57 Dose: 50 mg Allergies Allergies Allergy/AdvReac Type Severity Reaction Status Date / Time No Known Allergies Allergy Verified 03/23/23 18:13 Assessment & Plan Assessment & Plan (1) Alzheimer's dementia: Status: Acute Code(s): G30.9 - Alzheimer's disease, unspecified; F02.80 - Dementia in other diseases classified elsewhere, unspecified severity, without behavioral disturbance, psychotic disturbance, mood disturbance, and anxiety Assessment and Plan: August 24 58 years old woman with relative young age onset at Alzheimer dementia but overall clinical picture is affected by significant depression, which continues to be the predominant feature of for clinical picture. Conventional dementia medicines such as donepezil or memantine can be tried but usually do not make significant difference. I would suggest memantine 10 mg twice a day and donepezil 10 mg daily. Recently a new dementia at drug for Alzheimer was approved but only for relatively mild dementia or mild cognitive impairment type of patients. She would not qualify for that drug. 10/18 Patient sitting in chair in the day room, head leaning over to 1 side, resting. When asked how she is doing she says that she has diabetes and that she takes meds for that. 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 Staff reports no changes in behavior but seems to have more frequent lucid moments. 10/27 continue tx. hold adderall due to increase irritability now that she is covid positive. 10/29: symptomatic of COVID - URI Sx. VSS. no change in mental health presentation. continue current mgmt. 10/30: continues laid low by COVID. psych presentation essentially unchanged. continue current mgmt, monitor VS. 10/31 continue tx. 11/05 CTP no change 11/06/23 - CTP 11/11/2023: No changes 11/12/2023: No changes to current plan / continue tx. 12/08: no changes 12/09: no changes 12/11 continue tx. 12/16/23 Continue tx. 12/17/23 Continue tx. 12/23: Continue current regimen and plans 12/24: Continue current regimen and plans 12/25: Continue current plans and regimen 01/04 continue tx. 01/05: stable. continue current mgmt. 01/06: stable. continue current mgmt. 01/21/2024: Continue current regimen and plans Plan 1. Continue with current treatment. 2. Waiting for placement. Plan Plan continue with same treatment Reason for continued inpatient stay Substantial Risk for: inability to function Time Spent With Patient Time: Total time managing care of this patient today ____ minutes.
[2024-01-23 18:00] VITALS: BP 143/65; PULSE 64; RESP 16; TEMP 36.6; O2SAT 99
[2024-01-23 20:20] LABS: Glucose, Whole Blood 145 mg/dL (60-115)
[2024-01-23] MEDS: Sennosides 8.6 MG TABLET 17.2 MG PO (21:13)
[2024-01-23] MEDS: traZODone HCL 50 MG TABLET PO (21:13)
[2024-01-23] MEDS: Melatonin 3 MG TABLET 6 MG PO (21:14)
[2024-01-24 06:24] LABS: Glucose, Whole Blood 96 mg/dL (60-115)
[2024-01-24 08:20] VITALS: BP 135/65; PULSE 64; RESP 16; TEMP 35.9; O2SAT 98
[2024-01-24] MEDS: Memantine HCl 10 MG TABLET PO ×2 (08:24→20:59)
[2024-01-24] MEDS: Insulin Glargine,Hum.rec.anlog 100 UNIT/ML 10 ML VIAL 6 UNIT SUBCUT (08:24)
[2024-01-24] MEDS: Docusate Sodium 100 MG CAPSULE PO ×2 (08:24→20:59)
[2024-01-24] MEDS: Sertraline HCL 50 MG TABLET 150 MG PO (08:24)
[2024-01-24] MEDS: polyethylene glycoL 3350 17 GM POWD.PACK PO (08:24)
[2024-01-24] MEDS: Magnesium Oxide 400 MG TABLET PO ×2 (08:24→16:22)
[2024-01-24] MEDS: HaloperidoL 1 MG TABLET PO ×2 (08:24→16:22)
--- NOTE | 2024-01-24 17:17 | P.PNPSI_ITS ---
Subjective Subjective Date of Service: 01/24/24 Reason For Visit: hallucinations confusion Subjective Notes: Conditional Voluntary Interim History: The nursing staff reported the patient had been compliant with treatment, pleasant confused no changes in her mental status. On interview the patient denies new symptoms, waiting for placement Mental Status Exam Mental Status Exam Patient Appearance: Well Grooomed Patient Orientation: Person and Situation Level of Consciousness: Awake and Appropriate Patient Behavior: Guarded and Passive Mood Description: Withdrawn Affect Description: Constricted Patient Cognition Impaired: Yes Ability to Follow Directions: Good Speech Pattern: Clear Hallucinations: None Delusions: Not Present Thought Process: Distracted Thought Content: positive for [place] and positive for Poverty of Content Judgement: Poor Diagnostics Vital Signs (24Hr): Vital Signs - 24 hr 01/23/24 18:00 01/24/24 08:20 Temperature 97.8 F 96.7 F L Pulse Rate 64 64 Respiratory Rate 16 16 Blood Pressure 143/65 H 135/65 Pulse Oximetry 99 98 Oxygen Delivery Method Room Air Room Air BMI result Body Mass Index 27.4 Labs 11/13/23 08:28 01/03/24 07:55 Labs: Laboratory Results - last 48 hr 01/22/24 01/22/24 01/23/24 19:35 19:49 05:35 POC Glucose 158 H 195 H 99 01/23/24 01/24/24 20:00 05:56 POC Glucose 145 H 96 Imaging Radiology Impressions: ITS Impressions Brain MRI 04/03/23 15:30 IMPRESSION: No acute infarct, mass lesion, intracranial hemorrhage, or evidence of hydrocephalus. Mild nonspecific T2/FLAIR hyperintensity in the cerebral white matter and danny presumably on the basis of chronic microangiopathy. Cervical Spine CT 07/03/23 20:12 IMPRESSION: No acute findings within the cervical spine. The cervical central canal is not well assessed on this CT due to artifact. If weakness persists, a cervical spine MRI would be more sensitive in assessment. Medications Medications Current Medications Acetaminophen (Acetaminophen 325 Mg Tablet) 650 mg PO Q6H PRN PRN Reason: Pain, Mild (Pain Scale 1-3) Last Admin: 01/07/24 07:00 Dose: 650 mg Amphetamine/Dextroamphetamine (Amphetamine Mixed Salts 10 Mg Tablet) 5 mg PO BID@0800,1500 [facility] Docusate Sodium (Docusate Sodium 100 Mg Capsule) 100 mg PO BID [facility] Last Admin: 01/24/24 08:24 Dose: 100 mg Guaifenesin (Guaifenesin La 600 Mg Tab.Er.12h) 600 mg PO BID PRN PRN Reason: Cough Last Admin: 11/02/23 21:54 Dose: 600 mg Haloperidol (Haloperidol 1 Mg Tablet) 1 mg PO Q4H PRN PRN Reason: Hallucinations Last Admin: 01/08/24 21:26 Dose: 1 mg Haloperidol (Haloperidol 1 Mg Tablet) 1 mg PO BID@0830,1630 [facility] Last Admin: 01/24/24 16:22 Dose: 1 mg Hydroxyzine HCl (Hydroxyzine Hcl 25 Mg Tablet) 25 mg PO Q6H PRN PRN Reason: anxiety/restlessness Last Admin: 01/21/24 21:17 Dose: 25 mg Insulin Glargine (Insulin Glargine,Hum.Rec.Anlog 100 Unit/Ml 10 Ml Vial) 6 unit SUBCUT DAILY [facility] Last Admin: 01/24/24 08:24 Dose: 6 unit Magnesium Oxide (Magnesium Oxide 400 Mg Tablet) 400 mg PO BIDPC [facility] Last Admin: 01/24/24 16:22 Dose: 400 mg Melatonin (Melatonin 3 Mg Tablet) 6 mg PO BEDTIME [facility] Last Admin: 01/23/24 21:14 Dose: 6 mg Memantine (Memantine Hcl 10 Mg Tablet) 10 mg PO BID [facility] Last Admin: 01/24/24 08:24 Dose: 10 mg Polyethylene Glycol (Polyethylene Glycol 3350 17 Gm Powd.Pack) 17 gm PO DAILY [facility] Last Admin: 01/24/24 08:24 Dose: 17 gm Senna (Sennosides 8.6 Mg Tablet) 17.2 mg PO BEDTIME [facility] Last Admin: 01/23/24 21:13 Dose: 17.2 mg Sertraline HCl (Sertraline Hcl 50 Mg Tablet) 150 mg PO DAILY [facility] Last Admin: 01/24/24 08:24 Dose: 150 mg Trazodone HCl (Trazodone Hcl 50 Mg Tablet) 50 mg PO BEDTIME PRN PRN Reason: Insomnia Last Admin: 01/23/24 21:13 Dose: 50 mg Allergies Allergies Allergy/AdvReac Type Severity Reaction Status Date / Time No Known Allergies Allergy Verified 03/23/23 18:13 Assessment & Plan Assessment & Plan (1) Alzheimer's dementia: Status: Acute Code(s): G30.9 - Alzheimer's disease, unspecified; F02.80 - Dementia in other diseases classified elsewhere, unspecified severity, without behavioral disturbance, psychotic disturbance, mood disturbance, and anxiety Assessment and Plan: August 24 58 years old woman with relative young age onset at Alzheimer dementia but overall clinical picture is affected by significant depression, which continues to be the predominant feature of for clinical picture. Conventional dementia medicines such as donepezil or memantine can be tried but usually do not make significant difference. I would suggest memantine 10 mg twice a day and donepezil 10 mg daily. Recently a new dementia at drug for Alzheimer was approved but only for relatively mild dementia or mild cognitive impairment type of patients. She would not qualify for that drug. 10/18 Patient sitting in chair in the day room, head leaning over to 1 side, resting. When asked how she is doing she says that she has diabetes and that she takes meds for that. 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 Staff reports no changes in behavior but seems to have more frequent lucid moments. 10/27 continue tx. hold adderall due to increase irritability now that she is covid positive. 10/29: symptomatic of COVID - URI Sx. VSS. no change in mental health presentation. continue current mgmt. 10/30: continues laid low by COVID. psych presentation essentially unchanged. continue current mgmt, monitor VS. 10/31 continue tx. 11/05 CTP no change 11/06/23 - CTP 11/11/2023: No changes 11/12/2023: No changes to current plan 12/08 continue tx. 12/08: no changes 12/09: no changes 12/11 continue tx. 12/16/23 Continue tx. 12/17/23 Continue tx. 12/23: Continue current regimen and plans 12/24: Continue current regimen and plans 12/25: Continue current plans and regimen 01/04 continue tx. 01/05: stable. continue current mgmt. 01/06: stable. continue current mgmt. 01/21/2024: Continue current regimen and plans Plan 1. Continue with current treatment. 2. Waiting for placement. Plan Plan continue with same treatment Reason for continued inpatient stay Substantial Risk for: inability to function, rapid decompensation and med/psych decompensation Time Spent With Patient Time: Total time managing care of this patient today _20___ minutes.
[2024-01-24] MEDS: Melatonin 3 MG TABLET 6 MG PO (20:59)
[2024-01-24] MEDS: traZODone HCL 50 MG TABLET PO (20:59)
[2024-01-24] MEDS: Sennosides 8.6 MG TABLET 17.2 MG PO (20:59)
[2024-01-24 21:47] LABS: Glucose, Whole Blood 166 mg/dL (60-115)
[2024-01-25 06:42] LABS: Glucose, Whole Blood 111 mg/dL (60-115)
[2024-01-25 08:27] VITALS: BP 121/58; RESP 18; TEMP 36.2; O2SAT 99
[2024-01-25] MEDS: polyethylene glycoL 3350 17 GM POWD.PACK PO (09:03)
[2024-01-25] MEDS: Memantine HCl 10 MG TABLET PO ×2 (09:04→21:01)
[2024-01-25] MEDS: Insulin Glargine,Hum.rec.anlog 100 UNIT/ML 10 ML VIAL 6 UNIT SUBCUT (09:04)
[2024-01-25] MEDS: HaloperidoL 1 MG TABLET PO ×2 (09:05→16:53)
[2024-01-25] MEDS: Sertraline HCL 50 MG TABLET 150 MG PO (09:05)
[2024-01-25] MEDS: Docusate Sodium 100 MG CAPSULE PO ×2 (09:05→21:01)
[2024-01-25] MEDS: Magnesium Oxide 400 MG TABLET PO ×2 (09:06→16:52)
[2024-01-25 09:55] VITALS: BMI 27.2
--- NOTE | 2024-01-25 16:20 | P.PNPSI_ITS ---
Subjective Subjective Date of Service: 01/25/24 Reason For Visit: hallucinations confusion Subjective Notes: Conditional Voluntary Interim History: The nursing staff reported no changes in her mental status, pleasant and cooperative. On interview the patient denies new symptoms, waiting for placement. Mental Status Exam Mental Status Exam Patient Appearance: Well Grooomed and Appropriate Patient Orientation: Person and Situation Level of Consciousness: Awake and Appropriate Patient Behavior: Passive Mood Description: Calm Affect Description: Constricted Patient Cognition Impaired: Yes Ability to Follow Directions: Good Speech Pattern: Clear Hallucinations: None Delusions: Not Present Thought Process: Distracted and Linear Thought Content: positive for [place] and positive for Poverty of Content Judgement: Fair Diagnostics Vital Signs (24Hr): Vital Signs - 24 hr 01/25/24 08:27 Temperature 97.1 F Respiratory Rate 18 Blood Pressure 121/58 L Pulse Oximetry 99 Oxygen Delivery Method Room Air BMI result Body Mass Index 27.2 Labs 11/13/23 08:28 01/03/24 07:55 Labs: Laboratory Results - last 48 hr 01/23/24 01/24/24 01/24/24 20:00 05:56 20:11 POC Glucose 145 H 96 166 H 01/25/24 06:36 POC Glucose 111 Imaging Radiology Impressions: ITS Impressions Brain MRI 04/03/23 15:30 IMPRESSION: No acute infarct, mass lesion, intracranial hemorrhage, or evidence of hydrocephalus. Mild nonspecific T2/FLAIR hyperintensity in the cerebral white matter and danny presumably on the basis of chronic microangiopathy. Cervical Spine CT 07/03/23 20:12 IMPRESSION: No acute findings within the cervical spine. The cervical central canal is not well assessed on this CT due to artifact. If weakness persists, a cervical spine MRI would be more sensitive in assessment. Medications Medications Current Medications Acetaminophen (Acetaminophen 325 Mg Tablet) 650 mg PO Q6H PRN PRN Reason: Pain, Mild (Pain Scale 1-3) Last Admin: 01/07/24 07:00 Dose: 650 mg Amphetamine/Dextroamphetamine (Amphetamine Mixed Salts 10 Mg Tablet) 5 mg PO BID@0800,1500 BEN Docusate Sodium (Docusate Sodium 100 Mg Capsule) 100 mg PO BID BEN Last Admin: 01/25/24 09:05 Dose: 100 mg Guaifenesin (Guaifenesin La 600 Mg Tab.Er.12h) 600 mg PO BID PRN PRN Reason: Cough Last Admin: 11/02/23 21:54 Dose: 600 mg Haloperidol (Haloperidol 1 Mg Tablet) 1 mg PO Q4H PRN PRN Reason: Hallucinations Last Admin: 01/08/24 21:26 Dose: 1 mg Haloperidol (Haloperidol 1 Mg Tablet) 1 mg PO BID@0830,1630 [facility] Last Admin: 01/25/24 09:05 Dose: 1 mg Hydroxyzine HCl (Hydroxyzine Hcl 25 Mg Tablet) 25 mg PO Q6H PRN PRN Reason: anxiety/restlessness Last Admin: 01/21/24 21:17 Dose: 25 mg Insulin Glargine (Insulin Glargine,Hum.Rec.Anlog 100 Unit/Ml 10 Ml Vial) 6 unit SUBCUT DAILY [facility] Last Admin: 01/25/24 09:04 Dose: 6 unit Magnesium Oxide (Magnesium Oxide 400 Mg Tablet) 400 mg PO BIDPC [facility] Last Admin: 01/25/24 09:06 Dose: 400 mg Melatonin (Melatonin 3 Mg Tablet) 6 mg PO BEDTIME [facility] Last Admin: 01/24/24 20:59 Dose: 6 mg Memantine (Memantine Hcl 10 Mg Tablet) 10 mg PO BID [facility] Last Admin: 01/25/24 09:04 Dose: 10 mg Polyethylene Glycol (Polyethylene Glycol 3350 17 Gm Powd.Pack) 17 gm PO DAILY [facility] Last Admin: 01/25/24 09:03 Dose: 17 gm Senna (Sennosides 8.6 Mg Tablet) 17.2 mg PO BEDTIME [facility] Last Admin: 01/24/24 20:59 Dose: 17.2 mg Sertraline HCl (Sertraline Hcl 50 Mg Tablet) 150 mg PO DAILY [facility] Last Admin: 01/25/24 09:05 Dose: 150 mg Trazodone HCl (Trazodone Hcl 50 Mg Tablet) 50 mg PO BEDTIME PRN PRN Reason: Insomnia Last Admin: 01/24/24 20:59 Dose: 50 mg Allergies Allergies Allergy/AdvReac Type Severity Reaction Status Date / Time No Known Allergies Allergy Verified 03/23/23 18:13 Assessment & Plan Assessment & Plan (1) Alzheimer's dementia: Status: Acute Code(s): G30.9 - Alzheimer's disease, unspecified; F02.80 - Dementia in other diseases classified elsewhere, unspecified severity, without behavioral disturbance, psychotic disturbance, mood disturbance, and anxiety Assessment and Plan: October [birth year] 58 years old woman with relative young age onset at Alzheimer dementia but overall clinical picture is affected by significant depression, which continues to be the predominant feature of for clinical picture. Conventional dementia medicines such as donepezil or memantine can be tried but usually do not make significant difference. I would suggest memantine 10 mg twice a day and donepezil 10 mg daily. Recently a new dementia at drug for Alzheimer was approved but only for relatively mild dementia or mild cognitive impairment type of patients. She would not qualify for that drug. 10/18 Patient sitting in chair in the day room, head leaning over to 1 side, resting. When asked how she is doing she says that she has diabetes and that she takes meds for that. 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 Staff reports no changes in behavior but seems to have more frequent lucid moments. 10/27 continue tx. hold adderall due to increase irritability now that she is covid positive. 10/29: symptomatic of COVID - URI Sx. VSS. no change in mental health presentation. continue current mgmt. 10/30: continues laid low by COVID. psych presentation essentially unchanged. continue current mgmt, monitor VS. 10/31 continue tx. 11/05 CTP no change 11/06/23 - CTP 11/11/2023: No changes 11/12/2023: No changes to current plan 12/08 continue tx. 12/08: no changes 12/09: no changes 12/11 continue tx. 12/16/23 Continue tx. 12/17/23 Continue tx. 12/23: Continue current regimen and plans 12/24: Continue current regimen and plans 12/25: Continue current plans and regimen 01/04 continue tx. 01/05: stable. continue current mgmt. 01/06: stable. continue current mgmt. 01/21/2024: Continue current regimen and plans Plan 1. Continue with current treatment. 2. Waiting for placement. Plan Plan continue with same treatment Reason for continued inpatient stay Substantial Risk for: inability to function, rapid decompensation and med/psych decompensation Time Spent With Patient Time: Total time managing care of this patient today _20___ minutes.
[2024-01-25 19:30] VITALS: BP 138/61; PULSE 56; RESP 16; TEMP 36.2; O2SAT 99
[2024-01-25 20:49] LABS: Glucose, Whole Blood 175 mg/dL (60-115)
[2024-01-25] MEDS: Melatonin 3 MG TABLET 6 MG PO (21:00)
[2024-01-25] MEDS: Sennosides 8.6 MG TABLET 17.2 MG PO (21:00)
[2024-01-25] MEDS: traZODone HCL 50 MG TABLET PO (21:01)
[2024-01-25] MEDS: hydrOXYzine HCL 25 MG TABLET PO (21:01)
[2024-01-26 06:00] VITALS: BP 141/70; PULSE 58; RESP 18; TEMP 36.6; O2SAT 99
[2024-01-26 06:36] LABS: Glucose, Whole Blood 105 mg/dL (60-115)
[2024-01-26] MEDS: Insulin Glargine,Hum.rec.anlog 100 UNIT/ML 10 ML VIAL 6 UNIT SUBCUT (09:00)
[2024-01-26] MEDS: Docusate Sodium 100 MG CAPSULE PO ×2 (09:01→20:16)
[2024-01-26] MEDS: Magnesium Oxide 400 MG TABLET PO ×2 (09:01→16:40)
[2024-01-26] MEDS: Memantine HCl 10 MG TABLET PO ×2 (09:01→20:16)
[2024-01-26] MEDS: HaloperidoL 1 MG TABLET PO ×3 (09:01→20:16)
[2024-01-26] MEDS: Sertraline HCL 50 MG TABLET 150 MG PO (09:01)
[2024-01-26] MEDS: polyethylene glycoL 3350 17 GM POWD.PACK PO (09:01)
--- NOTE | 2024-01-26 12:38 | P.PNPSI_ITS ---
Subjective Subjective Date of Service: 01/26/24 Reason For Visit: hallucinations confusion Subjective Notes: Conditional Voluntary Interim History: The nursing staff reported the patient had been pleasant cooperative very confused but easily redirectable. On interview the patient denies new symptoms, waiting for placement. Mental Status Exam Mental Status Exam Patient Appearance: Appropriate Patient Orientation: Person and Situation Level of Consciousness: Awake Patient Behavior: Guarded and Passive Mood Description: Withdrawn Affect Description: Constricted Patient Cognition Impaired: Yes Ability to Follow Directions: Good Speech Pattern: Clear Hallucinations: None Delusions: Not Present Thought Process: Distracted and Slowed Thinking Thought Content: positive for [place] and positive for Poverty of Content Judgement: Fair Diagnostics Vital Signs (24Hr): Vital Signs - 24 hr 01/25/24 19:30 01/26/24 06:00 Temperature 97.2 F 97.9 F Pulse Rate 56 58 Respiratory Rate 16 18 Blood Pressure 138/61 141/70 H Pulse Oximetry 99 99 Oxygen Delivery Method Room Air Room Air BMI result Body Mass Index 27.2 Labs 11/13/23 08:28 01/03/24 07:55 Labs: Laboratory Results - last 48 hr 01/24/24 01/25/24 01/25/24 20:11 06:36 20:34 POC Glucose 166 H 111 175 H 01/26/24 06:29 POC Glucose 105 Imaging Radiology Impressions: ITS Impressions Brain MRI 04/03/23 15:30 IMPRESSION: No acute infarct, mass lesion, intracranial hemorrhage, or evidence of hydrocephalus. Mild nonspecific T2/FLAIR hyperintensity in the cerebral white matter and danny presumably on the basis of chronic microangiopathy. Cervical Spine CT 07/03/23 20:12 IMPRESSION: No acute findings within the cervical spine. The cervical central canal is not well assessed on this CT due to artifact. If weakness persists, a cervical spine MRI would be more sensitive in assessment. Medications Medications Current Medications Acetaminophen (Acetaminophen 325 Mg Tablet) 650 mg PO Q6H PRN PRN Reason: Pain, Mild (Pain Scale 1-3) Last Admin: 01/07/24 07:00 Dose: 650 mg Amphetamine/Dextroamphetamine (Amphetamine Mixed Salts 10 Mg Tablet) 5 mg PO BID@0800,1500 BEN Docusate Sodium (Docusate Sodium 100 Mg Capsule) 100 mg PO BID BEN Last Admin: 01/26/24 09:01 Dose: 100 mg Guaifenesin (Guaifenesin La 600 Mg Tab.Er.12h) 600 mg PO BID PRN PRN Reason: Cough Last Admin: 11/02/23 21:54 Dose: 600 mg Haloperidol (Haloperidol 1 Mg Tablet) 1 mg PO Q4H PRN PRN Reason: Hallucinations Last Admin: 01/08/24 21:26 Dose: 1 mg Haloperidol (Haloperidol 1 Mg Tablet) 1 mg PO BID@0830,1630 [facility] Last Admin: 01/26/24 09:01 Dose: 1 mg Hydroxyzine HCl (Hydroxyzine Hcl 25 Mg Tablet) 25 mg PO Q6H PRN PRN Reason: anxiety/restlessness Last Admin: 01/25/24 21:01 Dose: 25 mg Insulin Glargine (Insulin Glargine,Hum.Rec.Anlog 100 Unit/Ml 10 Ml Vial) 6 unit SUBCUT DAILY [facility] Last Admin: 01/26/24 09:00 Dose: 6 unit Magnesium Oxide (Magnesium Oxide 400 Mg Tablet) 400 mg PO BIDPC [facility] Last Admin: 01/26/24 09:01 Dose: 400 mg Melatonin (Melatonin 3 Mg Tablet) 6 mg PO BEDTIME [facility] Last Admin: 01/25/24 21:00 Dose: 6 mg Memantine (Memantine Hcl 10 Mg Tablet) 10 mg PO BID [facility] Last Admin: 01/26/24 09:01 Dose: 10 mg Polyethylene Glycol (Polyethylene Glycol 3350 17 Gm Powd.Pack) 17 gm PO DAILY [facility] Last Admin: 01/26/24 09:01 Dose: 17 gm Senna (Sennosides 8.6 Mg Tablet) 17.2 mg PO BEDTIME [facility] Last Admin: 01/25/24 21:00 Dose: 17.2 mg Sertraline HCl (Sertraline Hcl 50 Mg Tablet) 150 mg PO DAILY [facility] Last Admin: 01/26/24 09:01 Dose: 150 mg Trazodone HCl (Trazodone Hcl 50 Mg Tablet) 50 mg PO BEDTIME PRN PRN Reason: Insomnia Last Admin: 01/25/24 21:01 Dose: 50 mg Allergies Allergies Allergy/AdvReac Type Severity Reaction Status Date / Time No Known Allergies Allergy Verified 03/23/23 18:13 Assessment & Plan Assessment & Plan (1) Alzheimer's dementia: Status: Acute Code(s): G30.9 - Alzheimer's disease, unspecified; F02.80 - Dementia in other diseases classified elsewhere, unspecified severity, without behavioral disturbance, psychotic disturbance, mood disturbance, and anxiety Assessment and Plan: August 24 58 years old woman with relative young age onset at Alzheimer dementia but overall clinical picture is affected by significant depression, which continues to be the predominant feature of for clinical picture. Conventional dementia medicines such as donepezil or memantine can be tried but usually do not make significant difference. I would suggest memantine 10 mg twice a day and donepezil 10 mg daily. Recently a new dementia at drug for Alzheimer was approved but only for relatively mild dementia or mild cognitive impairment type of patients. She would not qualify for that drug. 10/18 Patient sitting in chair in the day room, head leaning over to 1 side, resting. When asked how she is doing she says that she has diabetes and that she takes meds for that. 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 Staff reports no changes in behavior but seems to have more frequent lucid moments. 10/27 continue tx. hold adderall due to increase irritability now that she is covid positive. 10/29: symptomatic of COVID - URI Sx. VSS. no change in mental health presentation. continue current mgmt. 10/30: continues laid low by COVID. psych presentation essentially unchanged. continue current mgmt, monitor VS. 10/31 continue tx. 11/05 CTP no change 11/06/23 - CTP 11/11/2023: No changes 11/12/2023: No changes to current plan 12/08 continue tx. 12/08: no changes 12/09: no changes 12/11 continue tx. 12/16/23 Continue tx. 12/17/23 Continue tx. 12/23: Continue current regimen and plans 12/24: Continue current regimen and plans 12/25: Continue current plans and regimen 01/04 continue tx. 01/05: stable. continue current mgmt. 01/06: stable. continue current mgmt. 01/21/2024: Continue current regimen and plans Plan 1. Continue with current treatment. 2. Waiting for placement. Plan Plan continue with same treatment Reason for continued inpatient stay Substantial Risk for: inability to function, rapid decompensation and med/psych decompensation Time Spent With Patient Time: Total time managing care of this patient today __20__ minutes.
[2024-01-26 18:00] VITALS: BP 139/76; PULSE 63; RESP 18; TEMP 36.4; O2SAT 99
[2024-01-26 19:32] LABS: Glucose, Whole Blood 178 mg/dL (60-115)
[2024-01-26] MEDS: Sennosides 8.6 MG TABLET 17.2 MG PO (20:15)
[2024-01-26] MEDS: traZODone HCL 50 MG TABLET PO (20:16)
[2024-01-26] MEDS: Melatonin 3 MG TABLET 6 MG PO (20:16)
[2024-01-27 06:28] LABS: Glucose, Whole Blood 126 mg/dL (60-115)
[2024-01-27 07:53] VITALS: BP 144/85; PULSE 62; RESP 18; TEMP 37; O2SAT 97
[2024-01-27] MEDS: Memantine HCl 10 MG TABLET PO ×2 (08:31→20:05)
[2024-01-27] MEDS: Docusate Sodium 100 MG CAPSULE PO ×2 (08:31→20:05)
[2024-01-27] MEDS: Magnesium Oxide 400 MG TABLET PO ×2 (08:31→16:52)
[2024-01-27] MEDS: Sertraline HCL 50 MG TABLET 150 MG PO (08:31)
[2024-01-27] MEDS: polyethylene glycoL 3350 17 GM POWD.PACK PO (08:31)
[2024-01-27] MEDS: Insulin Glargine,Hum.rec.anlog 100 UNIT/ML 10 ML VIAL 6 UNIT SUBCUT (08:31)
[2024-01-27] MEDS: HaloperidoL 1 MG TABLET PO ×2 (08:31→16:52)
--- NOTE | 2024-01-27 10:12 | HO.PSYCHPN ---
Subjective Subjective Date of Service: 01/27/24 Reason For Visit: hallucinations confusion Subjective Notes: Conditional Voluntary Interim History: The nursing staff reported the patient had been pleasant cooperative very confused but easily redirectable. CASE REVIEWED WITH STAFF NO CHANGE IN BEHAVIOR Medication Compliance: Yes Mental Status Exam Mental Status Exam Patient Appearance: Appropriate Patient Orientation: Person and Situation Level of Consciousness: Awake Patient Behavior: Guarded and Passive Mood Description: Withdrawn Affect Description: Constricted Patient Cognition Impaired: Yes Ability to Follow Directions: Good Speech Pattern: Clear Hallucinations: None Delusions: Not Present Thought Process: Distracted and Slowed Thinking Thought Content: positive for [place] and positive for Poverty of Content Judgement: Fair Diagnostics Vital Signs (24Hr): Vital Signs - 24 hr 01/26/24 18:00 Temperature 97.6 F Pulse Rate 63 Respiratory Rate 18 Blood Pressure 139/76 Pulse Oximetry 99 Oxygen Delivery Method Room Air BMI result Body Mass Index 27.2 Labs 11/13/23 08:28 01/03/24 07:55 Labs: Laboratory Results - last 48 hr 01/25/24 01/26/24 01/26/24 20:34 06:29 19:26 POC Glucose 175 H 105 178 H 01/27/24 06:18 POC Glucose 126 H Imaging Radiology Impressions: ITS Impressions Brain MRI 04/03/23 15:30 IMPRESSION: No acute infarct, mass lesion, intracranial hemorrhage, or evidence of hydrocephalus. Mild nonspecific T2/FLAIR hyperintensity in the cerebral white matter and danny presumably on the basis of chronic microangiopathy. Cervical Spine CT 07/03/23 20:12 IMPRESSION: No acute findings within the cervical spine. The cervical central canal is not well assessed on this CT due to artifact. If weakness persists, a cervical spine MRI would be more sensitive in assessment. Medications Medications Current Medications Acetaminophen (Acetaminophen 325 Mg Tablet) 650 mg PO Q6H PRN PRN Reason: Pain, Mild (Pain Scale 1-3) Last Admin: 01/07/24 07:00 Dose: 650 mg Amphetamine/Dextroamphetamine (Amphetamine Mixed Salts 10 Mg Tablet) 5 mg PO BID@0800,1500 BEN Docusate Sodium (Docusate Sodium 100 Mg Capsule) 100 mg PO BID BEN Last Admin: 01/27/24 08:31 Dose: 100 mg Guaifenesin (Guaifenesin La 600 Mg Tab.Er.12h) 600 mg PO BID PRN PRN Reason: Cough Last Admin: 11/02/23 21:54 Dose: 600 mg Haloperidol (Haloperidol 1 Mg Tablet) 1 mg PO Q4H PRN PRN Reason: Hallucinations Last Admin: 01/26/24 20:16 Dose: 1 mg Haloperidol (Haloperidol 1 Mg Tablet) 1 mg PO BID@0830,1630 [facility] Last Admin: 01/27/24 08:31 Dose: 1 mg Hydroxyzine HCl (Hydroxyzine Hcl 25 Mg Tablet) 25 mg PO Q6H PRN PRN Reason: anxiety/restlessness Last Admin: 01/25/24 21:01 Dose: 25 mg Insulin Glargine (Insulin Glargine,Hum.Rec.Anlog 100 Unit/Ml 10 Ml Vial) 6 unit SUBCUT DAILY [facility] Last Admin: 01/27/24 08:31 Dose: 6 unit Magnesium Oxide (Magnesium Oxide 400 Mg Tablet) 400 mg PO BIDPC [facility] Last Admin: 01/27/24 08:31 Dose: 400 mg Melatonin (Melatonin 3 Mg Tablet) 6 mg PO BEDTIME [facility] Last Admin: 01/26/24 20:16 Dose: 6 mg Memantine (Memantine Hcl 10 Mg Tablet) 10 mg PO BID [facility] Last Admin: 01/27/24 08:31 Dose: 10 mg Polyethylene Glycol (Polyethylene Glycol 3350 17 Gm Powd.Pack) 17 gm PO DAILY [facility] Last Admin: 01/27/24 08:31 Dose: 17 gm Senna (Sennosides 8.6 Mg Tablet) 17.2 mg PO BEDTIME [facility] Last Admin: 01/26/24 20:15 Dose: 17.2 mg Sertraline HCl (Sertraline Hcl 50 Mg Tablet) 150 mg PO DAILY [facility] Last Admin: 01/27/24 08:31 Dose: 150 mg Trazodone HCl (Trazodone Hcl 50 Mg Tablet) 50 mg PO BEDTIME PRN PRN Reason: Insomnia Last Admin: 01/26/24 20:16 Dose: 50 mg Allergies Allergies Allergy/AdvReac Type Severity Reaction Status Date / Time No Known Allergies Allergy Verified 03/23/23 18:13 Assessment & Plan Assessment & Plan (1) Alzheimer's dementia: Status: Acute Code(s): G30.9 - Alzheimer's disease, unspecified; F02.80 - Dementia in other diseases classified elsewhere, unspecified severity, without behavioral disturbance, psychotic disturbance, mood disturbance, and anxiety Assessment and Plan: August 24 58 years old woman with relative young age onset at Alzheimer dementia but overall clinical picture is affected by significant depression, which continues to be the predominant feature of for clinical picture. Conventional dementia medicines such as donepezil or memantine can be tried but usually do not make significant difference. I would suggest memantine 10 mg twice a day and donepezil 10 mg daily. Recently a new dementia at drug for Alzheimer was approved but only for relatively mild dementia or mild cognitive impairment type of patients. She would not qualify for that drug. 10/18 Patient sitting in chair in the day room, head leaning over to 1 side, resting. When asked how she is doing she says that she has diabetes and that she takes meds for that. She asks if com writer will be down here again. Staff reports no changes in behavior but seems to have more frequent lucid moments. 10/27 continue tx. hold adderall due to increase irritability now that she is covid positive. 10/29: symptomatic of COVID - URI Sx. VSS. no change in mental health presentation. continue current mgmt. 10/30: continues laid low by COVID. psych presentation essentially unchanged. continue current mgmt, monitor VS. 10/31 continue tx. 11/05 CTP no change 11/06/23 - CTP 11/11/2023: No changes 11/12/2023: No changes to current plan 12/08 continue tx. 12/08: no changes 12/09: no changes 12/11 continue tx. 12/16/23 Continue tx. 12/17/23 Continue tx. 12/23: Continue current regimen and plans 12/24: Continue current regimen and plans 12/25: Continue current plans and regimen 01/04 continue tx. 01/05: stable. continue current mgmt. 01/06: stable. continue current mgmt. 01/21/2024: Continue current regimen and plans 01/27/2024 CONTINUE PLAN OF CARE Plan 1. Continue with current treatment. 2. Waiting for placement. Plan Plan continue with same treatment Reason for continued inpatient stay Substantial Risk for: inability to function and rapid decompensation Time Spent With Patient Time: Total time managing care of this patient today ____ minutes.
[2024-01-27 18:00] VITALS: BP 163/74; PULSE 59; RESP 18; TEMP 35.9; O2SAT 100
[2024-01-27 19:53] LABS: Glucose, Whole Blood 142 mg/dL (60-115)
[2024-01-27] MEDS: Melatonin 3 MG TABLET 6 MG PO (20:04)
[2024-01-27] MEDS: traZODone HCL 50 MG TABLET PO (20:04)
[2024-01-27] MEDS: hydrOXYzine HCL 25 MG TABLET PO (20:05)
[2024-01-27] MEDS: Sennosides 8.6 MG TABLET 17.2 MG PO (20:05)
[2024-01-28 06:25] LABS: Glucose, Whole Blood 113 mg/dL (60-115)
[2024-01-28 07:32] VITALS: BP 137/72; PULSE 62; RESP 18; TEMP 36.9; O2SAT 96
[2024-01-28] MEDS: Docusate Sodium 100 MG CAPSULE PO ×2 (08:04→20:23)
[2024-01-28] MEDS: Magnesium Oxide 400 MG TABLET PO ×2 (08:04→17:00)
[2024-01-28] MEDS: polyethylene glycoL 3350 17 GM POWD.PACK PO (08:04)
[2024-01-28] MEDS: Sertraline HCL 50 MG TABLET 150 MG PO (08:04)
[2024-01-28] MEDS: Insulin Glargine,Hum.rec.anlog 100 UNIT/ML 10 ML VIAL 6 UNIT SUBCUT (08:05)
[2024-01-28] MEDS: Memantine HCl 10 MG TABLET PO ×2 (08:05→20:23)
[2024-01-28] MEDS: HaloperidoL 1 MG TABLET PO ×2 (08:05→17:00)
--- NOTE | 2024-01-28 10:28 | HO.PSYCHPN ---
Subjective Subjective Date of Service: 01/28/24 Reason For Visit: hallucinations confusion Subjective Notes: Conditional Voluntary Interim History: The nursing staff reported the patient had been pleasant cooperative very confused but easily redirectable. continues to be true Medication Compliance: Yes Mental Status Exam Mental Status Exam Patient Appearance: Appropriate Patient Orientation: Person Level of Consciousness: Awake Patient Behavior: Guarded and Passive Mood Description: Withdrawn Affect Description: Constricted Patient Cognition Impaired: Yes Ability to Follow Directions: Good Speech Pattern: Clear Hallucinations: None Delusions: Not Present Thought Process: Distracted and Slowed Thinking Thought Content: positive for [place] and positive for Poverty of Content Judgement: Fair Diagnostics Vital Signs (24Hr): Vital Signs - 24 hr 01/27/24 18:00 01/28/24 07:32 Temperature 96.7 F L 98.5 F Pulse Rate 59 62 Respiratory Rate 18 18 Blood Pressure 163/74 H 137/72 Pulse Oximetry 100 96 Oxygen Delivery Method Room Air Room Air BMI result Body Mass Index 27.2 Labs 11/13/23 08:28 01/03/24 07:55 Labs: Laboratory Results - last 48 hr 01/26/24 01/27/24 01/27/24 19:26 06:18 19:48 POC Glucose 178 H 126 H 142 H 01/28/24 06:13 POC Glucose 113 Imaging Radiology Impressions: ITS Impressions Brain MRI 04/03/23 15:30 IMPRESSION: No acute infarct, mass lesion, intracranial hemorrhage, or evidence of hydrocephalus. Mild nonspecific T2/FLAIR hyperintensity in the cerebral white matter and danny presumably on the basis of chronic microangiopathy. Cervical Spine CT 07/03/23 20:12 IMPRESSION: No acute findings within the cervical spine. The cervical central canal is not well assessed on this CT due to artifact. If weakness persists, a cervical spine MRI would be more sensitive in assessment. Medications Medications Current Medications Acetaminophen (Acetaminophen 325 Mg Tablet) 650 mg PO Q6H PRN PRN Reason: Pain, Mild (Pain Scale 1-3) Last Admin: 01/07/24 07:00 Dose: 650 mg Amphetamine/Dextroamphetamine (Amphetamine Mixed Salts 10 Mg Tablet) 5 mg PO BID@0800,1500 [facility] Docusate Sodium (Docusate Sodium 100 Mg Capsule) 100 mg PO BID [facility] Last Admin: 01/28/24 08:04 Dose: 100 mg Guaifenesin (Guaifenesin La 600 Mg Tab.Er.12h) 600 mg PO BID PRN PRN Reason: Cough Last Admin: 11/02/23 21:54 Dose: 600 mg Haloperidol (Haloperidol 1 Mg Tablet) 1 mg PO Q4H PRN PRN Reason: Hallucinations Last Admin: 01/26/24 20:16 Dose: 1 mg Haloperidol (Haloperidol 1 Mg Tablet) 1 mg PO BID@0830,1630 [facility] Last Admin: 01/28/24 08:05 Dose: 1 mg Hydroxyzine HCl (Hydroxyzine Hcl 25 Mg Tablet) 25 mg PO Q6H PRN PRN Reason: anxiety/restlessness Last Admin: 01/27/24 20:05 Dose: 25 mg Insulin Glargine (Insulin Glargine,Hum.Rec.Anlog 100 Unit/Ml 10 Ml Vial) 6 unit SUBCUT DAILY [facility] Last Admin: 01/28/24 08:05 Dose: 6 unit Magnesium Oxide (Magnesium Oxide 400 Mg Tablet) 400 mg PO BIDPC [facility] Last Admin: 01/28/24 08:04 Dose: 400 mg Melatonin (Melatonin 3 Mg Tablet) 6 mg PO BEDTIME [facility] Last Admin: 01/27/24 20:04 Dose: 6 mg Memantine (Memantine Hcl 10 Mg Tablet) 10 mg PO BID [facility] Last Admin: 01/28/24 08:05 Dose: 10 mg Polyethylene Glycol (Polyethylene Glycol 3350 17 Gm Powd.Pack) 17 gm PO DAILY [facility] Last Admin: 01/28/24 08:04 Dose: 17 gm Senna (Sennosides 8.6 Mg Tablet) 17.2 mg PO BEDTIME [facility] Last Admin: 01/27/24 20:05 Dose: 17.2 mg Sertraline HCl (Sertraline Hcl 50 Mg Tablet) 150 mg PO DAILY [facility] Last Admin: 01/28/24 08:04 Dose: 150 mg Trazodone HCl (Trazodone Hcl 50 Mg Tablet) 50 mg PO BEDTIME PRN PRN Reason: Insomnia Last Admin: 01/27/24 20:04 Dose: 50 mg Allergies Allergies Allergy/AdvReac Type Severity Reaction Status Date / Time No Known Allergies Allergy Verified 03/23/23 18:13 Assessment & Plan Assessment & Plan (1) Alzheimer's dementia: Status: Acute Code(s): G30.9 - Alzheimer's disease, unspecified; F02.80 - Dementia in other diseases classified elsewhere, unspecified severity, without behavioral disturbance, psychotic disturbance, mood disturbance, and anxiety Assessment and Plan: August 24 58 years old woman with relative young age onset at Alzheimer dementia but overall clinical picture is affected by significant depression, which continues to be the predominant feature of for clinical picture. Conventional dementia medicines such as donepezil or memantine can be tried but usually do not make significant difference. I would suggest memantine 10 mg twice a day and donepezil 10 mg daily. Recently a new dementia at drug for Alzheimer was approved but only for relatively mild dementia or mild cognitive impairment type of patients. She would not qualify for that drug. 10/18 Patient sitting in chair in the day room, head leaning over to 1 side, resting. When asked how she is doing she says that she has diabetes and that she takes meds for that. She asks if mortgage underwriter will be down here again. Staff reports no changes in behavior but seems to have more frequent lucid moments. 10/27 continue tx. hold adderall due to increase irritability now that she is covid positive. 10/29: symptomatic of COVID - URI Sx. VSS. no change in mental health presentation. continue current mgmt. 10/30: continues laid low by COVID. psych presentation essentially unchanged. continue current mgmt, monitor VS. 10/31 continue tx. 11/05 CTP no change 11/06/23 - CTP 11/11/2023: No changes 11/12/2023: No changes to current plan 12/08 continue tx. 12/08: no changes 12/09: no changes 12/11 continue tx. 12/16/23 Continue tx. 12/17/23 Continue tx. 12/23: Continue current regimen and plans 12/24: Continue current regimen and plans 12/25: Continue current plans and regimen 01/04 continue tx. 01/05: stable. continue current mgmt. 01/06: stable. continue current mgmt. 01/21/2024: Continue current regimen and plans 01/27/2024 CONTINUE PLAN OF CARE 01/28/2024 Continue plan of care discharge planning Plan 1. Continue with current treatment. 2. Waiting for placement. Plan Plan continue with same treatment Reason for continued inpatient stay Substantial Risk for: inability to function and rapid decompensation Time Spent With Patient Time: Total time managing care of this patient today ____ minutes.
[2024-01-28 19:35] VITALS: BP 128/63; PULSE 63; RESP 16; TEMP 36.7; O2SAT 97
[2024-01-28] MEDS: Sennosides 8.6 MG TABLET 17.2 MG PO (20:22)
[2024-01-28] MEDS: traZODone HCL 50 MG TABLET PO (20:22)
[2024-01-28] MEDS: Acetaminophen 325 MG TABLET 650 MG PO (20:23)
[2024-01-28] MEDS: Melatonin 3 MG TABLET 6 MG PO (20:23)
[2024-01-28 21:56] LABS: Glucose, Whole Blood 122 mg/dL (60-115)
[2024-01-29 06:11] LABS: Glucose, Whole Blood 115 mg/dL (60-115)
[2024-01-29 08:00] VITALS: BP 125/66; PULSE 61; RESP 16; TEMP 36.6; O2SAT 96
[2024-01-29] MEDS: Insulin Glargine,Hum.rec.anlog 100 UNIT/ML 10 ML VIAL 6 UNIT SUBCUT (09:13)
[2024-01-29] MEDS: polyethylene glycoL 3350 17 GM POWD.PACK PO (09:13)
[2024-01-29] MEDS: Sertraline HCL 50 MG TABLET 150 MG PO (09:16)
[2024-01-29] MEDS: Memantine HCl 10 MG TABLET PO ×2 (09:16→20:08)
[2024-01-29] MEDS: Magnesium Oxide 400 MG TABLET PO ×2 (09:17→16:52)
[2024-01-29] MEDS: HaloperidoL 1 MG TABLET PO ×2 (09:17→16:52)
[2024-01-29] MEDS: Docusate Sodium 100 MG CAPSULE PO ×2 (09:17→20:08)
--- NOTE | 2024-01-29 15:03 | P.PNPSI_ITS ---
Subjective Subjective Date of Service: 01/29/24 Reason For Visit: hallucinations confusion Subjective Notes: Conditional Voluntary Interim History: The nursing staff reported the patient had been compliant with treatment pleasantly confused easily redirectable. On interview the patient denies new symptoms, waiting for placement Mental Status Exam Mental Status Exam Patient Appearance: Well Grooomed and Appropriate Patient Orientation: Person and Situation Level of Consciousness: Awake and Appropriate Patient Behavior: Guarded and Passive Mood Description: Calm Affect Description: Constricted Patient Cognition Impaired: Yes Ability to Follow Directions: Good Speech Pattern: Clear Hallucinations: None Delusions: Not Present Thought Process: Distracted and Slowed Thinking Thought Content: positive for [place] and positive for Poverty of Content Judgement: Fair Diagnostics Vital Signs (24Hr): Vital Signs - 24 hr 01/28/24 19:35 01/29/24 08:00 Temperature 98.0 F 97.9 F Pulse Rate 63 61 Respiratory Rate 16 16 Blood Pressure 128/63 125/66 Pulse Oximetry 97 96 Oxygen Delivery Method Room Air Room Air BMI result Body Mass Index 27.2 Labs 11/13/23 08:28 01/03/24 07:55 Labs: Laboratory Results - last 48 hr 01/27/24 01/28/24 01/28/24 19:48 06:13 21:53 POC Glucose 142 H 113 122 H 01/29/24 05:59 POC Glucose 115 Imaging Radiology Impressions: ITS Impressions Brain MRI 04/03/23 15:30 IMPRESSION: No acute infarct, mass lesion, intracranial hemorrhage, or evidence of hydrocephalus. Mild nonspecific T2/FLAIR hyperintensity in the cerebral white matter and danny presumably on the basis of chronic microangiopathy. Cervical Spine CT 07/03/23 20:12 IMPRESSION: No acute findings within the cervical spine. The cervical central canal is not well assessed on this CT due to artifact. If weakness persists, a cervical spine MRI would be more sensitive in assessment. Medications Medications Current Medications Acetaminophen (Acetaminophen 325 Mg Tablet) 650 mg PO Q6H PRN PRN Reason: Pain, Mild (Pain Scale 1-3) Last Admin: 01/28/24 20:23 Dose: 650 mg Amphetamine/Dextroamphetamine (Amphetamine Mixed Salts 10 Mg Tablet) 5 mg PO BID@0800,1500 [facility] Docusate Sodium (Docusate Sodium 100 Mg Capsule) 100 mg PO BID [facility] Last Admin: 01/29/24 09:17 Dose: 100 mg Guaifenesin (Guaifenesin La 600 Mg Tab.Er.12h) 600 mg PO BID PRN PRN Reason: Cough Last Admin: 11/02/23 21:54 Dose: 600 mg Haloperidol (Haloperidol 1 Mg Tablet) 1 mg PO Q4H PRN PRN Reason: Hallucinations Last Admin: 01/26/24 20:16 Dose: 1 mg Haloperidol (Haloperidol 1 Mg Tablet) 1 mg PO BID@0830,1630 [facility] Last Admin: 01/29/24 09:17 Dose: 1 mg Hydroxyzine HCl (Hydroxyzine Hcl 25 Mg Tablet) 25 mg PO Q6H PRN PRN Reason: anxiety/restlessness Last Admin: 01/27/24 20:05 Dose: 25 mg Insulin Glargine (Insulin Glargine,Hum.Rec.Anlog 100 Unit/Ml 10 Ml Vial) 6 unit SUBCUT DAILY [facility] Last Admin: 01/29/24 09:13 Dose: 6 unit Magnesium Oxide (Magnesium Oxide 400 Mg Tablet) 400 mg PO BIDPC [facility] Last Admin: 01/29/24 09:17 Dose: 400 mg Melatonin (Melatonin 3 Mg Tablet) 6 mg PO BEDTIME [facility] Last Admin: 01/28/24 20:23 Dose: 6 mg Memantine (Memantine Hcl 10 Mg Tablet) 10 mg PO BID [facility] Last Admin: 01/29/24 09:16 Dose: 10 mg Polyethylene Glycol (Polyethylene Glycol 3350 17 Gm Powd.Pack) 17 gm PO DAILY [facility] Last Admin: 01/29/24 09:13 Dose: 17 gm Senna (Sennosides 8.6 Mg Tablet) 17.2 mg PO BEDTIME [facility] Last Admin: 01/28/24 20:22 Dose: 17.2 mg Sertraline HCl (Sertraline Hcl 50 Mg Tablet) 150 mg PO DAILY [facility] Last Admin: 01/29/24 09:16 Dose: 150 mg Trazodone HCl (Trazodone Hcl 50 Mg Tablet) 50 mg PO BEDTIME PRN PRN Reason: Insomnia Last Admin: 01/28/24 20:22 Dose: 50 mg Allergies Allergies Allergy/AdvReac Type Severity Reaction Status Date / Time No Known Allergies Allergy Verified 03/23/23 18:13 Assessment & Plan Assessment & Plan (1) Alzheimer's dementia: Status: Acute Code(s): G30.9 - Alzheimer's disease, unspecified; F02.80 - Dementia in other diseases classified elsewhere, unspecified severity, without behavioral disturbance, psychotic disturbance, mood disturbance, and anxiety Assessment and Plan: August 24 58 years old woman with relative young age onset at Alzheimer dementia but overall clinical picture is affected by significant depression, which continues to be the predominant feature of for clinical picture. Conventional dementia medicines such as donepezil or memantine can be tried but usually do not make significant difference. I would suggest memantine 10 mg twice a day and donepezil 10 mg daily. Recently a new dementia at drug for Alzheimer was approved but only for relatively mild dementia or mild cognitive impairment type of patients. She would not qualify for that drug. 10/18 Patient sitting in chair in the day room, head leaning over to 1 side, resting. When asked how she is doing she says that she has diabetes and that she takes meds for that. She asks if senior mortgage underwriter will be down here again. Staff reports no changes in behavior but seems to have more frequent lucid moments. 10/27 continue tx. hold adderall due to increase irritability now that she is covid positive. 10/29: symptomatic of COVID - URI Sx. VSS. no change in mental health presentation. continue current mgmt. 10/30: continues laid low by COVID. psych presentation essentially unchanged. continue current mgmt, monitor VS. 10/31 continue tx. 11/05 CTP no change 11/06/23 - CTP 11/11/2023: No changes 11/12/2023: No changes to current plan 12/08 continue tx. 12/08: no changes 12/09: no changes 12/11 continue tx. 12/16/23 Continue tx. 12/17/23 Continue tx. 12/23: Continue current regimen and plans 12/24: Continue current regimen and plans 12/25: Continue current plans and regimen 01/04 continue tx. 01/05: stable. continue current mgmt. 01/06: stable. continue current mgmt. 01/21/2024: Continue current regimen and plans 01/27/2024 CONTINUE PLAN OF CARE 01/28/2024 Continue plan of care discharge planning Plan 1. Continue with current treatment. 2. Waiting for placement. Plan Plan continue with same treatment Reason for continued inpatient stay Substantial Risk for: inability to function, rapid decompensation and med/psych decompensation Time Spent With Patient Time: Total time managing care of this patient today __20__ minutes.
[2024-01-29 19:00] VITALS: BP 157/78; PULSE 58; RESP 18; TEMP 36.6; O2SAT 99
[2024-01-29 19:47] LABS: Glucose, Whole Blood 151 mg/dL (60-115)
[2024-01-29] MEDS: traZODone HCL 50 MG TABLET PO (20:07)
[2024-01-29] MEDS: Sennosides 8.6 MG TABLET 17.2 MG PO (20:07)
[2024-01-29] MEDS: Melatonin 3 MG TABLET 6 MG PO (20:08)
[2024-01-30 06:38] LABS: Glucose, Whole Blood 123 mg/dL (60-115)
[2024-01-30 08:12] VITALS: BP 121/59; PULSE 55; RESP 16; TEMP 36.1; O2SAT 97
[2024-01-30] MEDS: polyethylene glycoL 3350 17 GM POWD.PACK PO (08:16)
[2024-01-30] MEDS: Magnesium Oxide 400 MG TABLET PO ×2 (08:16→17:36)
[2024-01-30] MEDS: Memantine HCl 10 MG TABLET PO ×2 (08:16→20:39)
[2024-01-30] MEDS: HaloperidoL 1 MG TABLET PO ×2 (08:16→17:36)
[2024-01-30] MEDS: Insulin Glargine,Hum.rec.anlog 100 UNIT/ML 10 ML VIAL 6 UNIT SUBCUT (08:16)
[2024-01-30] MEDS: Sertraline HCL 50 MG TABLET 150 MG PO (08:16)
[2024-01-30] MEDS: Docusate Sodium 100 MG CAPSULE PO ×2 (08:26→20:39)
--- NOTE | 2024-01-30 16:26 | HO.PSYCHPN ---
Subjective Subjective Date of Service: 01/30/24 Reason For Visit: hallucinations confusion Subjective Notes: Conditional Voluntary Interim History: Pt slept through the night. Pt reports doing well, denies any concerns. No SI/HI. No aggression towards self or others. Review of Systems Review of Systems unremarkable Yes all other systems are reviewed and are negative and Unobtainable due to mental status Constitutional: Reports as per HPI, Denies chills, Denies fatigue, Denies fever(s) and Denies headache(s) Denies headache(s) Cardiovascular: Denies chest pain and Denies dyspnea Respiratory: Denies cough and Denies dyspnea Gastrointestinal: Denies abdominal pain, Denies constipation and Denies vomiting Denies headache(s) and Denies focal weakness Psychiatric: Denies auditory hallucinations, Reports hallucinations (Per the patient's daughter. Patient denies this), Denies tactile hallucinations and Denies suicidal ideation Endocrine: Denies fatigue Mental Status Exam Mental Status Exam Patient Appearance: Well Grooomed and Appropriate Patient Orientation: Person and Situation Level of Consciousness: Awake and Appropriate Patient Behavior: Guarded and Passive Behavior Comments: Eyes remain closed Mood Description: Calm Affect Description: Constricted Patient Cognition Impaired: Yes Ability to Follow Directions: Good Speech Pattern: Clear Memory Description: Working Impaired Diagnostics Vital Signs (24Hr): Vital Signs - 24 hr 01/29/24 19:00 01/30/24 08:12 Temperature 97.9 F 97.0 F Pulse Rate 58 55 Respiratory Rate 18 16 Blood Pressure 157/78 H 121/59 L Pulse Oximetry 99 97 Oxygen Delivery Method Room Air Room Air BMI result Body Mass Index 27.2 Labs 11/13/23 08:28 01/03/24 07:55 Labs: Laboratory Results - last 48 hr 01/28/24 01/29/24 01/29/24 21:53 05:59 19:42 POC Glucose 122 H 115 151 H 01/30/24 06:09 POC Glucose 123 H Imaging Radiology Impressions: ITS Impressions Brain MRI 04/03/23 15:30 IMPRESSION: No acute infarct, mass lesion, intracranial hemorrhage, or evidence of hydrocephalus. Mild nonspecific T2/FLAIR hyperintensity in the cerebral white matter and danny presumably on the basis of chronic microangiopathy. Cervical Spine CT 07/03/23 20:12 IMPRESSION: No acute findings within the cervical spine. The cervical central canal is not well assessed on this CT due to artifact. If weakness persists, a cervical spine MRI would be more sensitive in assessment. Medications Medications Current Medications Acetaminophen (Acetaminophen 325 Mg Tablet) 650 mg PO Q6H PRN PRN Reason: Pain, Mild (Pain Scale 1-3) Last Admin: 01/28/24 20:23 Dose: 650 mg Amphetamine/Dextroamphetamine (Amphetamine Mixed Salts 10 Mg Tablet) 5 mg PO BID@0800,1500 [facility] Docusate Sodium (Docusate Sodium 100 Mg Capsule) 100 mg PO BID [facility] Last Admin: 01/30/24 08:26 Dose: 100 mg Guaifenesin (Guaifenesin La 600 Mg Tab.Er.12h) 600 mg PO BID PRN PRN Reason: Cough Last Admin: 11/02/23 21:54 Dose: 600 mg Haloperidol (Haloperidol 1 Mg Tablet) 1 mg PO Q4H PRN PRN Reason: Hallucinations Last Admin: 01/26/24 20:16 Dose: 1 mg Haloperidol (Haloperidol 1 Mg Tablet) 1 mg PO BID@0830,1630 [facility] Last Admin: 01/30/24 08:16 Dose: 1 mg Hydroxyzine HCl (Hydroxyzine Hcl 25 Mg Tablet) 25 mg PO Q6H PRN PRN Reason: anxiety/restlessness Last Admin: 01/27/24 20:05 Dose: 25 mg Insulin Glargine (Insulin Glargine,Hum.Rec.Anlog 100 Unit/Ml 10 Ml Vial) 6 unit SUBCUT DAILY [facility] Last Admin: 01/30/24 08:16 Dose: 6 unit Magnesium Oxide (Magnesium Oxide 400 Mg Tablet) 400 mg PO BIDPC [facility] Last Admin: 01/30/24 08:16 Dose: 400 mg Melatonin (Melatonin 3 Mg Tablet) 6 mg PO BEDTIME [facility] Last Admin: 01/29/24 20:08 Dose: 6 mg Memantine (Memantine Hcl 10 Mg Tablet) 10 mg PO BID [facility] Last Admin: 01/30/24 08:16 Dose: 10 mg Polyethylene Glycol (Polyethylene Glycol 3350 17 Gm Powd.Pack) 17 gm PO DAILY [facility] Last Admin: 01/30/24 08:16 Dose: 17 gm Senna (Sennosides 8.6 Mg Tablet) 17.2 mg PO BEDTIME [facility] Last Admin: 01/29/24 20:07 Dose: 17.2 mg Sertraline HCl (Sertraline Hcl 50 Mg Tablet) 150 mg PO DAILY [facility] Last Admin: 01/30/24 08:16 Dose: 150 mg Trazodone HCl (Trazodone Hcl 50 Mg Tablet) 50 mg PO BEDTIME PRN PRN Reason: Insomnia Last Admin: 01/29/24 20:07 Dose: 50 mg Allergies Allergies Allergy/AdvReac Type Severity Reaction Status Date / Time No Known Allergies Allergy Verified 03/23/23 18:13 Assessment & Plan Assessment & Plan (1) Alzheimer's dementia: Status: Acute Code(s): G30.9 - Alzheimer's disease, unspecified; F02.80 - Dementia in other diseases classified elsewhere, unspecified severity, without behavioral disturbance, psychotic disturbance, mood disturbance, and anxiety Assessment and Plan: August 24 58 years old woman with relative young age onset at Alzheimer dementia but overall clinical picture is affected by significant depression, which continues to be the predominant feature of for clinical picture. Conventional dementia medicines such as donepezil or memantine can be tried but usually do not make significant difference. I would suggest memantine 10 mg twice a day and donepezil 10 mg daily. Recently a new dementia at drug for Alzheimer was approved but only for relatively mild dementia or mild cognitive impairment type of patients. She would not qualify for that drug. 10/18 Patient sitting in chair in the day room, head leaning over to 1 side, resting. When asked how she is doing she says that she has diabetes and that she takes meds for that. She asks if advertising copywriter will be down here again. Staff reports no changes in behavior but seems to have more frequent lucid moments. 10/27 continue tx. hold adderall due to increase irritability now that she is covid positive. 10/29: symptomatic of COVID - URI Sx. VSS. no change in mental health presentation. continue current mgmt. 10/30: continues laid low by COVID. psych presentation essentially unchanged. continue current mgmt, monitor VS. 10/31 continue tx. 11/05 CTP no change 11/06/23 - CTP 11/11/2023: No changes 11/12/2023: No changes to current plan 2 continue tx. 12/08: no changes 12/09: no changes 12/11 continue tx. 12/16/23 Continue tx. 12/17/23 Continue tx. 12/23: Continue current regimen and plans 12/24: Continue current regimen and plans 12/25: Continue current plans and regimen 01/04 continue tx. 01/05: stable. continue current mgmt. 01/06: stable. continue current mgmt. 01/21/2024: Continue current regimen and plans 01/27/2024 CONTINUE PLAN OF CARE 01/28/2024 Continue plan of care discharge planning Plan 1. Continue with current treatment. 2. Waiting for placement. Plan Plan continue with same treatment Reason for continued inpatient stay Substantial Risk for: inability to function Time Spent With Patient Time: Total time managing care of this patient today ____ minutes.
[2024-01-30 19:50] VITALS: BP 135/71; PULSE 60; RESP 18; TEMP 36.1; O2SAT 100
[2024-01-30 20:12] LABS: Glucose, Whole Blood 132 mg/dL (60-115)
[2024-01-30] MEDS: Melatonin 3 MG TABLET 6 MG PO (20:39)
[2024-01-30] MEDS: traZODone HCL 50 MG TABLET PO (20:39)
[2024-01-30] MEDS: Sennosides 8.6 MG TABLET 17.2 MG PO (20:39)
[2024-01-31 06:58] LABS: Glucose, Whole Blood 100 mg/dL (60-115)
[2024-01-31 08:00] VITALS: BP 131/64; PULSE 56; RESP 18; TEMP 36.9; O2SAT 97
[2024-01-31] MEDS: HaloperidoL 1 MG TABLET PO ×2 (08:48→17:11)
[2024-01-31] MEDS: Magnesium Oxide 400 MG TABLET PO ×2 (08:48→17:11)
[2024-01-31] MEDS: Docusate Sodium 100 MG CAPSULE PO ×2 (08:48→20:26)
[2024-01-31] MEDS: Insulin Glargine,Hum.rec.anlog 100 UNIT/ML 10 ML VIAL 6 UNIT SUBCUT (08:48)
[2024-01-31] MEDS: Memantine HCl 10 MG TABLET PO ×2 (08:48→20:27)
[2024-01-31] MEDS: Sertraline HCL 50 MG TABLET 150 MG PO (08:48)
[2024-01-31] MEDS: polyethylene glycoL 3350 17 GM POWD.PACK PO (08:49)
--- NOTE | 2024-01-31 09:33 | HO.PSYCHPN ---
Subjective Subjective Date of Service: 01/31/24 Reason For Visit: hallucinations confusion Subjective Notes: Conditional Voluntary Interim History: The nursing staff reported that the patient had been compliant with treatment, she is pleasant cooperative easily redirectable. On interview the patient denies new symptoms, waiting for placement. The director of social services reported that the guardian and the power of insurance defense attorney found out that she has over 300 he her mcc fund. Her son who has not been in contact with her for years has contact the director of social services and wants to take her back to [place]. We will explore all discharge planning options. Mental Status Exam Mental Status Exam Patient Appearance: Appropriate Patient Orientation: Person and Situation Level of Consciousness: Awake and Appropriate Patient Behavior: Guarded and Passive Mood Description: Withdrawn Affect Description: Constricted Patient Cognition Impaired: Yes Ability to Follow Directions: Good Speech Pattern: Clear Hallucinations: None Delusions: Not Present Thought Process: Distracted and Slowed Thinking Thought Content: positive for [place] and positive for Poverty of Content Judgement: Fair Diagnostics Vital Signs (24Hr): Vital Signs - 24 hr 01/30/24 19:50 01/31/24 08:00 Temperature 97 F 98.5 F Pulse Rate 60 56 Respiratory Rate 18 18 Blood Pressure 135/71 131/64 Pulse Oximetry 100 97 Oxygen Delivery Method Room Air Room Air BMI result Body Mass Index 27.2 Labs 11/13/23 08:28 01/03/24 07:55 Labs: Laboratory Results - last 48 hr 01/29/24 01/30/24 01/30/24 19:42 06:09 20:04 POC Glucose 151 H 123 H 132 H 01/31/24 06:25 POC Glucose 100 Imaging Radiology Impressions: ITS Impressions Brain MRI 04/03/23 15:30 IMPRESSION: No acute infarct, mass lesion, intracranial hemorrhage, or evidence of hydrocephalus. Mild nonspecific T2/FLAIR hyperintensity in the cerebral white matter and danny presumably on the basis of chronic microangiopathy. Cervical Spine CT 07/03/23 20:12 IMPRESSION: No acute findings within the cervical spine. The cervical central canal is not well assessed on this CT due to artifact. If weakness persists, a cervical spine MRI would be more sensitive in assessment. Medications Medications Current Medications Acetaminophen (Acetaminophen 325 Mg Tablet) 650 mg PO Q6H PRN PRN Reason: Pain, Mild (Pain Scale 1-3) Last Admin: 01/28/24 20:23 Dose: 650 mg Amphetamine/Dextroamphetamine (Amphetamine Mixed Salts 10 Mg Tablet) 5 mg PO BID@0800,1500 [facility] Docusate Sodium (Docusate Sodium 100 Mg Capsule) 100 mg PO BID [facility] Last Admin: 01/31/24 08:48 Dose: 100 mg Guaifenesin (Guaifenesin La 600 Mg Tab.Er.12h) 600 mg PO BID PRN PRN Reason: Cough Last Admin: 11/02/23 21:54 Dose: 600 mg Haloperidol (Haloperidol 1 Mg Tablet) 1 mg PO Q4H PRN PRN Reason: Hallucinations Last Admin: 01/26/24 20:16 Dose: 1 mg Haloperidol (Haloperidol 1 Mg Tablet) 1 mg PO BID@0830,1630 [facility] Last Admin: 01/31/24 08:48 Dose: 1 mg Hydroxyzine HCl (Hydroxyzine Hcl 25 Mg Tablet) 25 mg PO Q6H PRN PRN Reason: anxiety/restlessness Last Admin: 01/27/24 20:05 Dose: 25 mg Insulin Glargine (Insulin Glargine,Hum.Rec.Anlog 100 Unit/Ml 10 Ml Vial) 6 unit SUBCUT DAILY [facility] Last Admin: 01/31/24 08:48 Dose: 6 unit Magnesium Oxide (Magnesium Oxide 400 Mg Tablet) 400 mg PO BIDPC [facility] Last Admin: 01/31/24 08:48 Dose: 400 mg Melatonin (Melatonin 3 Mg Tablet) 6 mg PO BEDTIME [facility] Last Admin: 01/30/24 20:39 Dose: 6 mg Memantine (Memantine Hcl 10 Mg Tablet) 10 mg PO BID [facility] Last Admin: 01/31/24 08:48 Dose: 10 mg Polyethylene Glycol (Polyethylene Glycol 3350 17 Gm Powd.Pack) 17 gm PO DAILY [facility] Last Admin: 01/31/24 08:49 Dose: 17 gm Senna (Sennosides 8.6 Mg Tablet) 17.2 mg PO BEDTIME [facility] Last Admin: 01/30/24 20:39 Dose: 17.2 mg Sertraline HCl (Sertraline Hcl 50 Mg Tablet) 150 mg PO DAILY [facility] Last Admin: 01/31/24 08:48 Dose: 150 mg Trazodone HCl (Trazodone Hcl 50 Mg Tablet) 50 mg PO BEDTIME PRN PRN Reason: Insomnia Last Admin: 01/30/24 20:39 Dose: 50 mg Allergies Allergies Allergy/AdvReac Type Severity Reaction Status Date / Time No Known Allergies Allergy Verified 03/23/23 18:13 Assessment & Plan Assessment & Plan (1) Alzheimer's dementia: Status: Acute Code(s): G30.9 - Alzheimer's disease, unspecified; F02.80 - Dementia in other diseases classified elsewhere, unspecified severity, without behavioral disturbance, psychotic disturbance, mood disturbance, and anxiety Assessment and Plan: August 24 58 years old woman with relative young age onset at Alzheimer dementia but overall clinical picture is affected by significant depression, which continues to be the predominant feature of for clinical picture. Conventional dementia medicines such as donepezil or memantine can be tried but usually do not make significant difference. I would suggest memantine 10 mg twice a day and donepezil 10 mg daily. Recently a new dementia at drug for Alzheimer was approved but only for relatively mild dementia or mild cognitive impairment type of patients. She would not qualify for that drug. 10/18 Patient sitting in chair in the day room, head leaning over to 1 side, resting. When asked how she is doing she says that she has diabetes and that she takes meds for that. 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 Staff reports no changes in behavior but seems to have more frequent lucid moments. 10/27 continue tx. hold adderall due to increase irritability now that she is covid positive. 10/29: symptomatic of COVID - URI Sx. VSS. no change in mental health presentation. continue current mgmt. 10/30: continues laid low by COVID. psych presentation essentially unchanged. continue current mgmt, monitor VS. 10/31 continue tx. 11/05 CTP no change 11/06/23 - CTP 11/11/2023: No changes 11/12/2023: No changes to current plan 12/08 continue tx. 12/08: no changes 12/09: no changes 12/11 continue tx. 12/16/23 Continue tx. 12/17/23 Continue tx. 12/23: Continue current regimen and plans 12/24: Continue current regimen and plans 12/25: Continue current plans and regimen 01/04 continue tx. 01/05: stable. continue current mgmt. 01/06: stable. continue current mgmt. 01/21/2024: Continue current regimen and plans 01/27/2024 CONTINUE PLAN OF CARE 01/28/2024 Continue plan of care discharge planning Plan 1. Continue with current treatment. 2. Waiting for placement. Plan Plan continue with same treatment Reason for continued inpatient stay Substantial Risk for: inability to function, rapid decompensation and med/psych decompensation Time Spent With Patient Time: Total time managing care of this patient today __20__ minutes.
[2024-01-31 18:00] VITALS: BP 123/58; PULSE 66; RESP 18; TEMP 36.6; O2SAT 97
[2024-01-31] MEDS: hydrOXYzine HCL 25 MG TABLET PO (20:26)
[2024-01-31] MEDS: Melatonin 3 MG TABLET 6 MG PO (20:26)
[2024-01-31] MEDS: Sennosides 8.6 MG TABLET 17.2 MG PO (20:27)
[2024-01-31] MEDS: traZODone HCL 50 MG TABLET PO (20:27)
[2024-01-31 20:48] LABS: Glucose, Whole Blood 138 mg/dL (60-115)
[2024-02-01 06:25] LABS: Glucose, Whole Blood 113 mg/dL (60-115)
[2024-02-01 08:22] VITALS: BP 138/76; PULSE 57; RESP 16; TEMP 37; O2SAT 98
[2024-02-01] MEDS: Magnesium Oxide 400 MG TABLET PO ×2 (08:23→16:48)
[2024-02-01] MEDS: Docusate Sodium 100 MG CAPSULE PO ×2 (08:24→21:02)
[2024-02-01] MEDS: Insulin Glargine,Hum.rec.anlog 100 UNIT/ML 10 ML VIAL 6 UNIT SUBCUT (08:24)
[2024-02-01] MEDS: Sertraline HCL 50 MG TABLET 150 MG PO (08:24)
[2024-02-01] MEDS: Memantine HCl 10 MG TABLET PO ×2 (08:24→21:02)
[2024-02-01] MEDS: polyethylene glycoL 3350 17 GM POWD.PACK PO (08:24)
[2024-02-01] MEDS: HaloperidoL 1 MG TABLET PO ×2 (08:24→16:48)
[2024-02-01 08:52] VITALS: BMI 27.2
--- NOTE | 2024-02-01 16:56 | HO.PSYCHPN ---
Subjective Subjective Date of Service: 02/01/24 Reason For Visit: hallucinations confusion Subjective Notes: Conditional Voluntary Interim History: The nursing staff reported the patient is pleasantly confused, easily redirectable. Today her son from [place] came to visit her. On interview the patient denies new symptoms, waiting for placement. Mental Status Exam Mental Status Exam Patient Appearance: Well Grooomed and Appropriate Patient Orientation: Person and Situation Level of Consciousness: Awake and Appropriate Patient Behavior: Guarded and Passive Mood Description: Calm Affect Description: Constricted Patient Cognition Impaired: Yes Ability to Follow Directions: Good Speech Pattern: Clear Hallucinations: None Delusions: Not Present Thought Process: Distracted and Evasive Thought Content: positive for [place] and positive for Poverty of Content Judgement: Poor Diagnostics Vital Signs (24Hr): Vital Signs - 24 hr 01/31/24 18:00 02/01/24 08:22 Temperature 98 F 98.6 F Pulse Rate 66 57 Respiratory Rate 18 16 Blood Pressure 123/58 L 138/76 Pulse Oximetry 97 98 Oxygen Delivery Method Room Air Room Air BMI result Body Mass Index 27.2 Labs 11/13/23 08:28 01/03/24 07:55 Labs: Laboratory Results - last 48 hr 01/30/24 01/31/24 01/31/24 20:04 06:25 20:25 POC Glucose 132 H 100 138 H 02/01/24 05:57 POC Glucose 113 Imaging Radiology Impressions: ITS Impressions Brain MRI 04/03/23 15:30 IMPRESSION: No acute infarct, mass lesion, intracranial hemorrhage, or evidence of hydrocephalus. Mild nonspecific T2/FLAIR hyperintensity in the cerebral white matter and danny presumably on the basis of chronic microangiopathy. Cervical Spine CT 07/03/23 20:12 IMPRESSION: No acute findings within the cervical spine. The cervical central canal is not well assessed on this CT due to artifact. If weakness persists, a cervical spine MRI would be more sensitive in assessment. Medications Medications Current Medications Acetaminophen (Acetaminophen 325 Mg Tablet) 650 mg PO Q6H PRN PRN Reason: Pain, Mild (Pain Scale 1-3) Last Admin: 01/28/24 20:23 Dose: 650 mg Amphetamine/Dextroamphetamine (Amphetamine Mixed Salts 10 Mg Tablet) 5 mg PO BID@0800,1500 [facility] Docusate Sodium (Docusate Sodium 100 Mg Capsule) 100 mg PO BID [facility] Last Admin: 02/01/24 08:24 Dose: 100 mg Guaifenesin (Guaifenesin La 600 Mg Tab.Er.12h) 600 mg PO BID PRN PRN Reason: Cough Last Admin: 11/02/23 21:54 Dose: 600 mg Haloperidol (Haloperidol 1 Mg Tablet) 1 mg PO Q4H PRN PRN Reason: Hallucinations Last Admin: 01/26/24 20:16 Dose: 1 mg Haloperidol (Haloperidol 1 Mg Tablet) 1 mg PO BID@0830,1630 [facility] Last Admin: 02/01/24 16:48 Dose: 1 mg Hydroxyzine HCl (Hydroxyzine Hcl 25 Mg Tablet) 25 mg PO Q6H PRN PRN Reason: anxiety/restlessness Last Admin: 01/31/24 20:26 Dose: 25 mg Insulin Glargine (Insulin Glargine,Hum.Rec.Anlog 100 Unit/Ml 10 Ml Vial) 6 unit SUBCUT DAILY [facility] Last Admin: 02/01/24 08:24 Dose: 6 unit Magnesium Oxide (Magnesium Oxide 400 Mg Tablet) 400 mg PO BIDPC [facility] Last Admin: 02/01/24 16:48 Dose: 400 mg Melatonin (Melatonin 3 Mg Tablet) 6 mg PO BEDTIME [facility] Last Admin: 01/31/24 20:26 Dose: 6 mg Memantine (Memantine Hcl 10 Mg Tablet) 10 mg PO BID [facility] Last Admin: 02/01/24 08:24 Dose: 10 mg Polyethylene Glycol (Polyethylene Glycol 3350 17 Gm Powd.Pack) 17 gm PO DAILY [facility] Last Admin: 02/01/24 08:24 Dose: 17 gm Senna (Sennosides 8.6 Mg Tablet) 17.2 mg PO BEDTIME [facility] Last Admin: 01/31/24 20:27 Dose: 17.2 mg Sertraline HCl (Sertraline Hcl 50 Mg Tablet) 150 mg PO DAILY [facility] Last Admin: 02/01/24 08:24 Dose: 150 mg Trazodone HCl (Trazodone Hcl 50 Mg Tablet) 50 mg PO BEDTIME PRN PRN Reason: Insomnia Last Admin: 01/31/24 20:27 Dose: 50 mg Allergies Allergies Allergy/AdvReac Type Severity Reaction Status Date / Time No Known Allergies Allergy Verified 03/23/23 18:13 Assessment & Plan Assessment & Plan (1) Alzheimer's dementia: Status: Acute Code(s): G30.9 - Alzheimer's disease, unspecified; F02.80 - Dementia in other diseases classified elsewhere, unspecified severity, without behavioral disturbance, psychotic disturbance, mood disturbance, and anxiety Assessment and Plan: August 24 58 years old woman with relative young age onset at Alzheimer dementia but overall clinical picture is affected by significant depression, which continues to be the predominant feature of for clinical picture. Conventional dementia medicines such as donepezil or memantine can be tried but usually do not make significant difference. I would suggest memantine 10 mg twice a day and donepezil 10 mg daily. Recently a new dementia at drug for Alzheimer was approved but only for relatively mild dementia or mild cognitive impairment type of patients. She would not qualify for that drug. 10/18 Patient sitting in chair in the day room, head leaning over to 1 side, resting. When asked how she is doing she says that she has diabetes and that she takes meds for that. 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 Staff reports no changes in behavior but seems to have more frequent lucid moments. 10/27 continue tx. hold adderall due to increase irritability now that she is covid positive. 10/29: symptomatic of COVID - URI Sx. VSS. no change in mental health presentation. continue current mgmt. 10/30: continues laid low by COVID. psych presentation essentially unchanged. continue current mgmt, monitor VS. 10/31 continue tx. 11/05 CTP no change 11/06/23 - CTP 11/11/2023: No changes 11/12/2023: No changes to current plan 12/08 continue tx. 12/08: no changes 12/09: no changes 12/11 continue tx. 12/16/23 Continue tx. 12/17/23 Continue tx. 12/23: Continue current regimen and plans 12/24: Continue current regimen and plans 12/25: Continue current plans and regimen 01/04 continue tx. 01/05: stable. continue current mgmt. 01/06: stable. continue current mgmt. 01/21/2024: Continue current regimen and plans 01/27/2024 CONTINUE PLAN OF CARE 01/28/2024 Continue plan of care discharge planning Plan 1. Continue with current treatment. 2. Waiting for placement. Plan Plan continue with same treatment Reason for continued inpatient stay Substantial Risk for: inability to function, rapid decompensation and med/psych decompensation Time Spent With Patient Time: Total time managing care of this patient today _20___ minutes.
[2024-02-01 19:40] VITALS: BP 148/74; PULSE 58; RESP 16; TEMP 36.1; O2SAT 97
[2024-02-01 20:03] LABS: Glucose, Whole Blood 149 mg/dL (60-115)
[2024-02-01] MEDS: Melatonin 3 MG TABLET 6 MG PO (21:01)
[2024-02-01] MEDS: traZODone HCL 50 MG TABLET PO (21:01)
[2024-02-01] MEDS: Sennosides 8.6 MG TABLET 17.2 MG PO (21:02)
[2024-02-02 06:00] VITALS: BP 126/67; PULSE 59; RESP 16; TEMP 36.2; O2SAT 96
[2024-02-02 06:02] LABS: Glucose, Whole Blood 110 mg/dL (60-115)
[2024-02-02] MEDS: Docusate Sodium 100 MG CAPSULE PO ×2 (08:46→20:44)
[2024-02-02] MEDS: HaloperidoL 1 MG TABLET PO ×2 (08:46→16:43)
[2024-02-02] MEDS: Memantine HCl 10 MG TABLET PO ×2 (08:46→20:44)
[2024-02-02] MEDS: Magnesium Oxide 400 MG TABLET PO ×2 (08:46→16:43)
[2024-02-02] MEDS: Sertraline HCL 50 MG TABLET 150 MG PO (08:46)
[2024-02-02] MEDS: Insulin Glargine,Hum.rec.anlog 100 UNIT/ML 10 ML VIAL 6 UNIT SUBCUT (08:47)
[2024-02-02] MEDS: polyethylene glycoL 3350 17 GM POWD.PACK PO (08:48)
--- NOTE | 2024-02-02 10:16 | HO.PSYCHPN ---
Subjective Subjective Date of Service: 02/02/24 Reason For Visit: hallucinations confusion Subjective Notes: Conditional Voluntary Interim History: The nursing staff reported no changes in his mental status she slept well cooperative and pleasant. The staff has noticed that the peer has been teasing her and she was able to ask for help. On interview the patient denies new symptoms, waiting for placement. Mental Status Exam Mental Status Exam Patient Appearance: Well Grooomed and Appropriate Patient Orientation: Person and Situation Level of Consciousness: Awake and Appropriate Patient Behavior: Guarded and Passive Mood Description: Withdrawn Affect Description: Constricted Patient Cognition Impaired: Yes Ability to Follow Directions: Good Speech Pattern: Clear Hallucinations: None Delusions: Not Present Thought Process: Distracted and Slowed Thinking Thought Content: positive for [place] and positive for Poverty of Content Judgement: Fair Diagnostics Vital Signs (24Hr): Vital Signs - 24 hr 02/01/24 19:40 Temperature 97.0 F Pulse Rate 58 Respiratory Rate 16 Blood Pressure 148/74 H Pulse Oximetry 97 Oxygen Delivery Method Room Air BMI result Body Mass Index 27.2 Labs 11/13/23 08:28 01/03/24 07:55 Labs: Laboratory Results - last 48 hr 01/31/24 02/01/24 02/01/24 20:25 05:57 19:53 POC Glucose 138 H 113 149 H 02/02/24 05:44 POC Glucose 110 Imaging Radiology Impressions: ITS Impressions Brain MRI 04/03/23 15:30 IMPRESSION: No acute infarct, mass lesion, intracranial hemorrhage, or evidence of hydrocephalus. Mild nonspecific T2/FLAIR hyperintensity in the cerebral white matter and danny presumably on the basis of chronic microangiopathy. Cervical Spine CT 07/03/23 20:12 IMPRESSION: No acute findings within the cervical spine. The cervical central canal is not well assessed on this CT due to artifact. If weakness persists, a cervical spine MRI would be more sensitive in assessment. Medications Medications Current Medications Acetaminophen (Acetaminophen 325 Mg Tablet) 650 mg PO Q6H PRN PRN Reason: Pain, Mild (Pain Scale 1-3) Last Admin: 01/28/24 20:23 Dose: 650 mg Amphetamine/Dextroamphetamine (Amphetamine Mixed Salts 10 Mg Tablet) 5 mg PO BID@0800,1500 [facility] Docusate Sodium (Docusate Sodium 100 Mg Capsule) 100 mg PO BID [facility] Last Admin: 02/02/24 08:46 Dose: 100 mg Guaifenesin (Guaifenesin La 600 Mg Tab.Er.12h) 600 mg PO BID PRN PRN Reason: Cough Last Admin: 11/02/23 21:54 Dose: 600 mg Haloperidol (Haloperidol 1 Mg Tablet) 1 mg PO Q4H PRN PRN Reason: Hallucinations Last Admin: 01/26/24 20:16 Dose: 1 mg Haloperidol (Haloperidol 1 Mg Tablet) 1 mg PO BID@0830,1630 [facility] Last Admin: 02/02/24 08:46 Dose: 1 mg Hydroxyzine HCl (Hydroxyzine Hcl 25 Mg Tablet) 25 mg PO Q6H PRN PRN Reason: anxiety/restlessness Last Admin: 01/31/24 20:26 Dose: 25 mg Insulin Glargine (Insulin Glargine,Hum.Rec.Anlog 100 Unit/Ml 10 Ml Vial) 6 unit SUBCUT DAILY [facility] Last Admin: 02/02/24 08:47 Dose: 6 unit Magnesium Oxide (Magnesium Oxide 400 Mg Tablet) 400 mg PO BIDPC [facility] Last Admin: 02/02/24 08:46 Dose: 400 mg Melatonin (Melatonin 3 Mg Tablet) 6 mg PO BEDTIME [facility] Last Admin: 02/01/24 21:01 Dose: 6 mg Memantine (Memantine Hcl 10 Mg Tablet) 10 mg PO BID [facility] Last Admin: 02/02/24 08:46 Dose: 10 mg Polyethylene Glycol (Polyethylene Glycol 3350 17 Gm Powd.Pack) 17 gm PO DAILY [facility] Last Admin: 02/02/24 08:48 Dose: 17 gm Senna (Sennosides 8.6 Mg Tablet) 17.2 mg PO BEDTIME [facility] Last Admin: 02/01/24 21:02 Dose: 17.2 mg Sertraline HCl (Sertraline Hcl 50 Mg Tablet) 150 mg PO DAILY [facility] Last Admin: 02/02/24 08:46 Dose: 150 mg Trazodone HCl (Trazodone Hcl 50 Mg Tablet) 50 mg PO BEDTIME PRN PRN Reason: Insomnia Last Admin: 02/01/24 21:01 Dose: 50 mg Allergies Allergies Allergy/AdvReac Type Severity Reaction Status Date / Time No Known Allergies Allergy Verified 03/23/23 18:13 Assessment & Plan Assessment & Plan (1) Alzheimer's dementia: Status: Acute Code(s): G30.9 - Alzheimer's disease, unspecified; F02.80 - Dementia in other diseases classified elsewhere, unspecified severity, without behavioral disturbance, psychotic disturbance, mood disturbance, and anxiety Assessment and Plan: August 24 58 years old woman with relative young age onset at Alzheimer dementia but overall clinical picture is affected by significant depression, which continues to be the predominant feature of for clinical picture. Conventional dementia medicines such as donepezil or memantine can be tried but usually do not make significant difference. I would suggest memantine 10 mg twice a day and donepezil 10 mg daily. Recently a new dementia at drug for Alzheimer was approved but only for relatively mild dementia or mild cognitive impairment type of patients. She would not qualify for that drug. 10/18 Patient sitting in chair in the day room, head leaning over to 1 side, resting. When asked how she is doing she says that she has diabetes and that she takes meds for that. 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 Staff reports no changes in behavior but seems to have more frequent lucid moments. 10/27 continue tx. hold adderall due to increase irritability now that she is covid positive. 10/29: symptomatic of COVID - URI Sx. VSS. no change in mental health presentation. continue current mgmt. 10/30: continues laid low by COVID. psych presentation essentially unchanged. continue current mgmt, monitor VS. 10/31 continue tx. 11/05 CTP no change 11/06/23 - CTP 11/11/2023: No changes 11/12/2023: No changes to current plan 12/08 continue tx. 12/08: no changes 12/09: no changes 12/11 continue tx. 12/16/23 Continue tx. 12/17/23 Continue tx. 12/23: Continue current regimen and plans 12/24: Continue current regimen and plans 12/25: Continue current plans and regimen 01/04 continue tx. 01/05: stable. continue current mgmt. 01/06: stable. continue current mgmt. 01/21/2024: Continue current regimen and plans 01/27/2024 CONTINUE PLAN OF CARE 01/28/2024 Continue plan of care discharge planning Plan 1. Continue with current treatment. 2. Waiting for placement. Plan Plan continue with same treatment Reason for continued inpatient stay Substantial Risk for: inability to function, rapid decompensation and med/psych decompensation Time Spent With Patient Time: Total time managing care of this patient today __20__ minutes.
[2024-02-02 19:40] VITALS: BP 109/56; PULSE 65; RESP 18; TEMP 37.4; O2SAT 97
[2024-02-02 20:19] LABS: Glucose, Whole Blood 203 mg/dL (60-115)
[2024-02-02] MEDS: traZODone HCL 50 MG TABLET PO (20:44)
[2024-02-02] MEDS: Sennosides 8.6 MG TABLET 17.2 MG PO (20:44)
[2024-02-02] MEDS: Melatonin 3 MG TABLET 6 MG PO (20:44)
[2024-02-03 06:25] LABS: Glucose, Whole Blood 120 mg/dL (60-115)
[2024-02-03 08:14] VITALS: BP 122/58; PULSE 60; RESP 16; TEMP 2.4; TEMP 36.4; O2SAT 94
--- NOTE | 2024-02-03 08:40 | HO.PSYCHPN ---
Subjective Subjective Date of Service: 02/03/24 Reason For Visit: hallucinations confusion Subjective Notes: Conditional Voluntary Interim History: The nursing staff reported the patient is pleasantly confused easily redirectable, compliant with medications she slept well last night. On interview the patient denies new symptoms, waiting for placement. Mental Status Exam Mental Status Exam Patient Appearance: Appropriate Patient Orientation: Person and Situation Level of Consciousness: Awake Patient Behavior: Passive Mood Description: Calm Affect Description: Constricted Patient Cognition Impaired: Yes Ability to Follow Directions: Good Speech Pattern: Clear Hallucinations: None Delusions: Not Present Thought Process: Distracted and Slowed Thinking Thought Content: positive for [place] and positive for Poverty of Content Judgement: Poor Diagnostics Vital Signs (24Hr): Vital Signs - 24 hr 02/02/24 19:40 02/03/24 08:14 Temperature 99.3 F 36.4 F L Pulse Rate 65 60 Respiratory Rate 18 16 Blood Pressure 109/56 L 122/58 L Pulse Oximetry 97 94 Oxygen Delivery Method Room Air Room Air BMI result Body Mass Index 27.2 Labs 11/13/23 08:28 01/03/24 07:55 Labs: Laboratory Results - last 48 hr 02/01/24 02/02/24 02/02/24 19:53 05:44 20:01 POC Glucose 149 H 110 203 H 02/03/24 06:05 POC Glucose 120 H Imaging Radiology Impressions: ITS Impressions Brain MRI 04/03/23 15:30 IMPRESSION: No acute infarct, mass lesion, intracranial hemorrhage, or evidence of hydrocephalus. Mild nonspecific T2/FLAIR hyperintensity in the cerebral white matter and danny presumably on the basis of chronic microangiopathy. Cervical Spine CT 07/03/23 20:12 IMPRESSION: No acute findings within the cervical spine. The cervical central canal is not well assessed on this CT due to artifact. If weakness persists, a cervical spine MRI would be more sensitive in assessment. Medications Medications Current Medications Acetaminophen (Acetaminophen 325 Mg Tablet) 650 mg PO Q6H PRN PRN Reason: Pain, Mild (Pain Scale 1-3) Last Admin: 01/28/24 20:23 Dose: 650 mg Amphetamine/Dextroamphetamine (Amphetamine Mixed Salts 10 Mg Tablet) 5 mg PO BID@0800,1500 [facility] Docusate Sodium (Docusate Sodium 100 Mg Capsule) 100 mg PO BID [facility] Last Admin: 02/02/24 20:44 Dose: 100 mg Guaifenesin (Guaifenesin La 600 Mg Tab.Er.12h) 600 mg PO BID PRN PRN Reason: Cough Last Admin: 11/02/23 21:54 Dose: 600 mg Haloperidol (Haloperidol 1 Mg Tablet) 1 mg PO Q4H PRN PRN Reason: Hallucinations Last Admin: 01/26/24 20:16 Dose: 1 mg Haloperidol (Haloperidol 1 Mg Tablet) 1 mg PO BID@0830,1630 [facility] Last Admin: 02/02/24 16:43 Dose: 1 mg Hydroxyzine HCl (Hydroxyzine Hcl 25 Mg Tablet) 25 mg PO Q6H PRN PRN Reason: anxiety/restlessness Last Admin: 01/31/24 20:26 Dose: 25 mg Insulin Glargine (Insulin Glargine,Hum.Rec.Anlog 100 Unit/Ml 10 Ml Vial) 6 unit SUBCUT DAILY [facility] Last Admin: 02/02/24 08:47 Dose: 6 unit Magnesium Oxide (Magnesium Oxide 400 Mg Tablet) 400 mg PO BIDPC [facility] Last Admin: 02/02/24 16:43 Dose: 400 mg Melatonin (Melatonin 3 Mg Tablet) 6 mg PO BEDTIME [facility] Last Admin: 02/02/24 20:44 Dose: 6 mg Memantine (Memantine Hcl 10 Mg Tablet) 10 mg PO BID [facility] Last Admin: 02/02/24 20:44 Dose: 10 mg Polyethylene Glycol (Polyethylene Glycol 3350 17 Gm Powd.Pack) 17 gm PO DAILY [facility] Last Admin: 02/02/24 08:48 Dose: 17 gm Senna (Sennosides 8.6 Mg Tablet) 17.2 mg PO BEDTIME [facility] Last Admin: 02/02/24 20:44 Dose: 17.2 mg Sertraline HCl (Sertraline Hcl 50 Mg Tablet) 150 mg PO DAILY [facility] Last Admin: 02/02/24 08:46 Dose: 150 mg Trazodone HCl (Trazodone Hcl 50 Mg Tablet) 50 mg PO BEDTIME PRN PRN Reason: Insomnia Last Admin: 02/02/24 20:44 Dose: 50 mg Allergies Allergies Allergy/AdvReac Type Severity Reaction Status Date / Time No Known Allergies Allergy Verified 03/23/23 18:13 Assessment & Plan Assessment & Plan (1) Alzheimer's dementia: Status: Acute Code(s): G30.9 - Alzheimer's disease, unspecified; F02.80 - Dementia in other diseases classified elsewhere, unspecified severity, without behavioral disturbance, psychotic disturbance, mood disturbance, and anxiety Assessment and Plan: August 24 58 years old woman with relative young age onset at Alzheimer dementia but overall clinical picture is affected by significant depression, which continues to be the predominant feature of for clinical picture. Conventional dementia medicines such as donepezil or memantine can be tried but usually do not make significant difference. I would suggest memantine 10 mg twice a day and donepezil 10 mg daily. Recently a new dementia at drug for Alzheimer was approved but only for relatively mild dementia or mild cognitive impairment type of patients. She would not qualify for that drug. 10/18 Patient sitting in chair in the day room, head leaning over to 1 side, resting. When asked how she is doing she says that she has diabetes and that she takes meds for that. 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 Staff reports no changes in behavior but seems to have more frequent lucid moments. 10/27 continue tx. hold adderall due to increase irritability now that she is covid positive. 10/29: symptomatic of COVID - URI Sx. VSS. no change in mental health presentation. continue current mgmt. 10/30: continues laid low by COVID. psych presentation essentially unchanged. continue current mgmt, monitor VS. 10/31 continue tx. 11/05 CTP no change 11/06/23 - CTP 11/11/2023: No changes 11/12/2023: No changes to current plan 12/08 continue tx. 12/08: no changes 12/09: no changes 12/11 continue tx. 12/16/23 Continue tx. 12/17/23 Continue tx. 12/23: Continue current regimen and plans 12/24: Continue current regimen and plans 12/25: Continue current plans and regimen 01/04 continue tx. 01/05: stable. continue current mgmt. 01/06: stable. continue current mgmt. 01/21/2024: Continue current regimen and plans 01/27/2024 CONTINUE PLAN OF CARE 01/28/2024 Continue plan of care discharge planning Plan 1. Continue with current treatment. 2. Waiting for placement. Plan Plan continue with same treatment Reason for continued inpatient stay Substantial Risk for: inability to function, rapid decompensation and med/psych decompensation Time Spent With Patient Time: Total time managing care of this patient today __20__ minutes.
[2024-02-03] MEDS: Sertraline HCL 50 MG TABLET 150 MG PO (09:04)
[2024-02-03] MEDS: Memantine HCl 10 MG TABLET PO ×2 (09:04→20:48)
[2024-02-03] MEDS: HaloperidoL 1 MG TABLET PO ×3 (09:05→20:47)
[2024-02-03] MEDS: Magnesium Oxide 400 MG TABLET PO ×2 (09:05→18:04)
[2024-02-03] MEDS: Insulin Glargine,Hum.rec.anlog 100 UNIT/ML 10 ML VIAL 6 UNIT SUBCUT (09:06)
[2024-02-03 18:00] VITALS: BP 151/69; PULSE 55; RESP 18; TEMP 36.6; O2SAT 100
[2024-02-03] MEDS: Melatonin 3 MG TABLET 6 MG PO (20:46)
[2024-02-03] MEDS: Docusate Sodium 100 MG CAPSULE PO (20:47)
[2024-02-03] MEDS: Sennosides 8.6 MG TABLET 17.2 MG PO (20:48)
[2024-02-03] MEDS: hydrOXYzine HCL 25 MG TABLET PO (20:48)
[2024-02-03 21:17] LABS: Glucose, Whole Blood 97 mg/dL (60-115)
[2024-02-04 05:55] LABS: Glucose, Whole Blood 105 mg/dL (60-115)
[2024-02-04] MEDS: Insulin Glargine,Hum.rec.anlog 100 UNIT/ML 10 ML VIAL 6 UNIT SUBCUT (08:03)
[2024-02-04] MEDS: Magnesium Oxide 400 MG TABLET PO ×2 (08:05→16:35)
[2024-02-04] MEDS: HaloperidoL 1 MG TABLET PO ×2 (08:05→16:06)
[2024-02-04] MEDS: Memantine HCl 10 MG TABLET PO ×2 (08:05→20:42)
[2024-02-04] MEDS: Docusate Sodium 100 MG CAPSULE PO ×2 (08:05→20:41)
[2024-02-04] MEDS: Sertraline HCL 50 MG TABLET 150 MG PO (08:05)
[2024-02-04 08:09] VITALS: BP 129/67; PULSE 56; RESP 17; TEMP 2.4; TEMP 36.4; O2SAT 98
--- NOTE | 2024-02-04 09:21 | HO.PSYCHPN ---
Subjective Subjective Date of Service: 02/04/24 Reason For Visit: hallucinations confusion Subjective Notes: Conditional Voluntary Interim History: The nursing staff reported no changes in her mental status pleasantly confused, easily redirectable. On interview the patient denies new symptoms. Waiting for placement. Mental Status Exam Mental Status Exam Patient Appearance: Appropriate Patient Orientation: Person Level of Consciousness: Awake Patient Behavior: Guarded and Passive Mood Description: Withdrawn Affect Description: Constricted Patient Cognition Impaired: Yes Ability to Follow Directions: Good Speech Pattern: Clear Hallucinations: None Delusions: Not Present Thought Process: Distracted and Slowed Thinking Thought Content: positive for [place] and positive for Poverty of Content Judgement: Fair Diagnostics Vital Signs (24Hr): Vital Signs - 24 hr 02/03/24 18:00 02/04/24 08:09 Temperature 97.8 F 36.4 F L Pulse Rate 55 56 Respiratory Rate 18 17 Blood Pressure 151/69 H 129/67 Pulse Oximetry 100 98 Oxygen Delivery Method Room Air Room Air BMI result Body Mass Index 27.2 Labs 11/13/23 08:28 01/03/24 07:55 Labs: Laboratory Results - last 48 hr 02/02/24 02/03/24 02/03/24 20:01 06:05 20:43 POC Glucose 203 H 120 H 97 02/04/24 05:50 POC Glucose 105 Imaging Radiology Impressions: ITS Impressions Brain MRI 04/03/23 15:30 IMPRESSION: No acute infarct, mass lesion, intracranial hemorrhage, or evidence of hydrocephalus. Mild nonspecific T2/FLAIR hyperintensity in the cerebral white matter and danny presumably on the basis of chronic microangiopathy. Cervical Spine CT 07/03/23 20:12 IMPRESSION: No acute findings within the cervical spine. The cervical central canal is not well assessed on this CT due to artifact. If weakness persists, a cervical spine MRI would be more sensitive in assessment. Medications Medications Current Medications Acetaminophen (Acetaminophen 325 Mg Tablet) 650 mg PO Q6H PRN PRN Reason: Pain, Mild (Pain Scale 1-3) Last Admin: 01/28/24 20:23 Dose: 650 mg Amphetamine/Dextroamphetamine (Amphetamine Mixed Salts 10 Mg Tablet) 5 mg PO BID@0800,1500 [facility] Docusate Sodium (Docusate Sodium 100 Mg Capsule) 100 mg PO BID [facility] Last Admin: 02/04/24 08:05 Dose: 100 mg Guaifenesin (Guaifenesin La 600 Mg Tab.Er.12h) 600 mg PO BID PRN PRN Reason: Cough Last Admin: 11/02/23 21:54 Dose: 600 mg Haloperidol (Haloperidol 1 Mg Tablet) 1 mg PO Q4H PRN PRN Reason: Hallucinations Last Admin: 02/03/24 20:47 Dose: 1 mg Haloperidol (Haloperidol 1 Mg Tablet) 1 mg PO BID@0830,1630 [facility] Last Admin: 02/04/24 08:05 Dose: 1 mg Hydroxyzine HCl (Hydroxyzine Hcl 25 Mg Tablet) 25 mg PO Q6H PRN PRN Reason: anxiety/restlessness Last Admin: 02/03/24 20:48 Dose: 25 mg Insulin Glargine (Insulin Glargine,Hum.Rec.Anlog 100 Unit/Ml 10 Ml Vial) 6 unit SUBCUT DAILY [facility] Last Admin: 02/04/24 08:03 Dose: 6 unit Magnesium Oxide (Magnesium Oxide 400 Mg Tablet) 400 mg PO BIDPC [facility] Last Admin: 02/04/24 08:05 Dose: 400 mg Melatonin (Melatonin 3 Mg Tablet) 6 mg PO BEDTIME [facility] Last Admin: 02/03/24 20:46 Dose: 6 mg Memantine (Memantine Hcl 10 Mg Tablet) 10 mg PO BID [facility] Last Admin: 02/04/24 08:05 Dose: 10 mg Polyethylene Glycol (Polyethylene Glycol 3350 17 Gm Powd.Pack) 17 gm PO DAILY [facility] Last Admin: 02/03/24 09:40 Dose: Not Given Senna (Sennosides 8.6 Mg Tablet) 17.2 mg PO BEDTIME [facility] Last Admin: 02/03/24 20:48 Dose: 17.2 mg Sertraline HCl (Sertraline Hcl 50 Mg Tablet) 150 mg PO DAILY [facility] Last Admin: 02/04/24 08:05 Dose: 150 mg Trazodone HCl (Trazodone Hcl 50 Mg Tablet) 50 mg PO BEDTIME PRN PRN Reason: Insomnia Last Admin: 02/02/24 20:44 Dose: 50 mg Allergies Allergies Allergy/AdvReac Type Severity Reaction Status Date / Time No Known Allergies Allergy Verified 03/23/23 18:13 Assessment & Plan Assessment & Plan (1) Alzheimer's dementia: Status: Acute Code(s): G30.9 - Alzheimer's disease, unspecified; F02.80 - Dementia in other diseases classified elsewhere, unspecified severity, without behavioral disturbance, psychotic disturbance, mood disturbance, and anxiety Assessment and Plan: August 24 58 years old woman with relative young age onset at Alzheimer dementia but overall clinical picture is affected by significant depression, which continues to be the predominant feature of for clinical picture. Conventional dementia medicines such as donepezil or memantine can be tried but usually do not make significant difference. I would suggest memantine 10 mg twice a day and donepezil 10 mg daily. Recently a new dementia at drug for Alzheimer was approved but only for relatively mild dementia or mild cognitive impairment type of patients. She would not qualify for that drug. 10/18 Patient sitting in chair in the day room, head leaning over to 1 side, resting. When asked how she is doing she says that she has diabetes and that she takes meds for that. 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 Staff reports no changes in behavior but seems to have more frequent lucid moments. 10/27 continue tx. hold adderall due to increase irritability now that she is covid positive. 10/29: symptomatic of COVID - URI Sx. VSS. no change in mental health presentation. continue current mgmt. 10/30: continues laid low by COVID. psych presentation essentially unchanged. continue current mgmt, monitor VS. 10/31 continue tx. 11/05 CTP no change 11/06/23 - CTP 11/11/2023: No changes 11/12/2023: No changes to current plan 12/08 continue tx. 12/08: no changes 12/09: no changes 12/11 continue tx. 12/16/23 Continue tx. 12/17/23 Continue tx. 12/23: Continue current regimen and plans 12/24: Continue current regimen and plans 12/25: Continue current plans and regimen 01/04 continue tx. 01/05: stable. continue current mgmt. 01/06: stable. continue current mgmt. 01/21/2024: Continue current regimen and plans 01/27/2024 CONTINUE PLAN OF CARE 01/28/2024 Continue plan of care discharge planning Plan 1. Continue with current treatment. 2. Waiting for placement. Plan Plan continue with same treatment Reason for continued inpatient stay Substantial Risk for: inability to function, rapid decompensation and med/psych decompensation Time Spent With Patient Time: Total time managing care of this patient today __30__ minutes.
[2024-02-04 18:00] VITALS: BP 131/68; PULSE 64; RESP 18; TEMP 37.1; O2SAT 98
[2024-02-04] MEDS: Sennosides 8.6 MG TABLET 17.2 MG PO (20:41)
[2024-02-04] MEDS: traZODone HCL 50 MG TABLET PO (20:42)
[2024-02-04] MEDS: Melatonin 3 MG TABLET 6 MG PO (20:42)
[2024-02-04] MEDS: hydrOXYzine HCL 25 MG TABLET PO (20:42)
[2024-02-04 21:23] LABS: Glucose, Whole Blood 152 mg/dL (60-115)
[2024-02-05 06:00] VITALS: BP 136/62; PULSE 57; RESP 18; TEMP 35.8; O2SAT 97
[2024-02-05 06:27] LABS: Glucose, Whole Blood 107 mg/dL (60-115)
[2024-02-05] MEDS: polyethylene glycoL 3350 17 GM POWD.PACK PO (08:15)
[2024-02-05] MEDS: HaloperidoL 1 MG TABLET PO ×2 (08:16→17:40)
[2024-02-05] MEDS: Memantine HCl 10 MG TABLET PO ×2 (08:16→20:19)
[2024-02-05] MEDS: Sertraline HCL 50 MG TABLET 150 MG PO (08:16)
[2024-02-05] MEDS: Docusate Sodium 100 MG CAPSULE PO ×2 (08:16→20:19)
[2024-02-05] MEDS: Magnesium Oxide 400 MG TABLET PO ×2 (08:17→17:40)
[2024-02-05] MEDS: Insulin Glargine,Hum.rec.anlog 100 UNIT/ML 10 ML VIAL 6 UNIT SUBCUT (08:17)
--- NOTE | 2024-02-05 14:10 | HO.PSYCHPN ---
Subjective Subjective Date of Service: 02/05/24 Reason For Visit: hallucinations confusion Subjective Notes: Conditional Voluntary Interim History: The nursing staff reported no changes in her mental status compliant with treatment. On interview the patient denies new symptoms, waiting for placement. Mental Status Exam Mental Status Exam Patient Appearance: Appropriate Patient Orientation: Person and Situation Level of Consciousness: Awake and Appropriate Patient Behavior: Guarded and Passive Mood Description: Withdrawn Affect Description: Constricted Patient Cognition Impaired: Yes Ability to Follow Directions: Good Speech Pattern: Clear Hallucinations: None Delusions: Not Present Thought Process: Distracted and Slowed Thinking Thought Content: positive for [place] and positive for Poverty of Content Judgement: Poor Diagnostics Vital Signs (24Hr): Vital Signs - 24 hr 02/04/24 18:00 02/05/24 06:00 Temperature 98.8 F 96.5 F L Pulse Rate 64 57 Respiratory Rate 18 18 Blood Pressure 131/68 136/62 Pulse Oximetry 98 97 Oxygen Delivery Method Room Air Room Air BMI result Body Mass Index 27.2 Labs 11/13/23 08:28 01/03/24 07:55 Labs: Laboratory Results - last 48 hr 02/03/24 02/04/24 02/04/24 20:43 05:50 19:58 POC Glucose 97 105 152 H 02/05/24 05:48 POC Glucose 107 Imaging Radiology Impressions: ITS Impressions Brain MRI 04/03/23 15:30 IMPRESSION: No acute infarct, mass lesion, intracranial hemorrhage, or evidence of hydrocephalus. Mild nonspecific T2/FLAIR hyperintensity in the cerebral white matter and danny presumably on the basis of chronic microangiopathy. Cervical Spine CT 07/03/23 20:12 IMPRESSION: No acute findings within the cervical spine. The cervical central canal is not well assessed on this CT due to artifact. If weakness persists, a cervical spine MRI would be more sensitive in assessment. Medications Medications Current Medications Acetaminophen (Acetaminophen 325 Mg Tablet) 650 mg PO Q6H PRN PRN Reason: Pain, Mild (Pain Scale 1-3) Last Admin: 01/28/24 20:23 Dose: 650 mg Amphetamine/Dextroamphetamine (Amphetamine Mixed Salts 10 Mg Tablet) 5 mg PO BID@0800,1500 [facility] Docusate Sodium (Docusate Sodium 100 Mg Capsule) 100 mg PO BID [facility] Last Admin: 02/05/24 08:16 Dose: 100 mg Guaifenesin (Guaifenesin La 600 Mg Tab.Er.12h) 600 mg PO BID PRN PRN Reason: Cough Last Admin: 11/02/23 21:54 Dose: 600 mg Haloperidol (Haloperidol 1 Mg Tablet) 1 mg PO Q4H PRN PRN Reason: Hallucinations Last Admin: 02/03/24 20:47 Dose: 1 mg Haloperidol (Haloperidol 1 Mg Tablet) 1 mg PO BID@0830,1630 [facility] Last Admin: 02/05/24 08:16 Dose: 1 mg Hydroxyzine HCl (Hydroxyzine Hcl 25 Mg Tablet) 25 mg PO Q6H PRN PRN Reason: anxiety/restlessness Last Admin: 02/04/24 20:42 Dose: 25 mg Insulin Glargine (Insulin Glargine,Hum.Rec.Anlog 100 Unit/Ml 10 Ml Vial) 6 unit SUBCUT DAILY [facility] Last Admin: 02/05/24 08:17 Dose: 6 unit Magnesium Oxide (Magnesium Oxide 400 Mg Tablet) 400 mg PO BIDPC [facility] Last Admin: 02/05/24 08:17 Dose: 400 mg Melatonin (Melatonin 3 Mg Tablet) 6 mg PO BEDTIME [facility] Last Admin: 02/04/24 20:42 Dose: 6 mg Memantine (Memantine Hcl 10 Mg Tablet) 10 mg PO BID [facility] Last Admin: 02/05/24 08:16 Dose: 10 mg Polyethylene Glycol (Polyethylene Glycol 3350 17 Gm Powd.Pack) 17 gm PO DAILY [facility] Last Admin: 02/05/24 08:15 Dose: 17 gm Senna (Sennosides 8.6 Mg Tablet) 17.2 mg PO BEDTIME [facility] Last Admin: 02/04/24 20:41 Dose: 17.2 mg Sertraline HCl (Sertraline Hcl 50 Mg Tablet) 150 mg PO DAILY [facility] Last Admin: 02/05/24 08:16 Dose: 150 mg Trazodone HCl (Trazodone Hcl 50 Mg Tablet) 50 mg PO BEDTIME PRN PRN Reason: Insomnia Last Admin: 02/04/24 20:42 Dose: 50 mg Allergies Allergies Allergy/AdvReac Type Severity Reaction Status Date / Time No Known Allergies Allergy Verified 03/23/23 18:13 Assessment & Plan Assessment & Plan (1) Alzheimer's dementia: Status: Acute Code(s): G30.9 - Alzheimer's disease, unspecified; F02.80 - Dementia in other diseases classified elsewhere, unspecified severity, without behavioral disturbance, psychotic disturbance, mood disturbance, and anxiety Assessment and Plan: August 24 58 years old woman with relative young age onset at Alzheimer dementia but overall clinical picture is affected by significant depression, which continues to be the predominant feature of for clinical picture. Conventional dementia medicines such as donepezil or memantine can be tried but usually do not make significant difference. I would suggest memantine 10 mg twice a day and donepezil 10 mg daily. Recently a new dementia at drug for Alzheimer was approved but only for relatively mild dementia or mild cognitive impairment type of patients. She would not qualify for that drug. 10/18 Patient sitting in chair in the day room, head leaning over to 1 side, resting. When asked how she is doing she says that she has diabetes and that she takes meds for that. 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 Staff reports no changes in behavior but seems to have more frequent lucid moments. 10/27 continue tx. hold adderall due to increase irritability now that she is covid positive. 10/29: symptomatic of COVID - URI Sx. VSS. no change in mental health presentation. continue current mgmt. 10/30: continues laid low by COVID. psych presentation essentially unchanged. continue current mgmt, monitor VS. 10/31 continue tx. 11/05 CTP no change 11/06/23 - CTP 11/11/2023: No changes 11/12/2023: No changes to current plan 12/08 continue tx. 12/08: no changes 12/09: no changes 12/11 continue tx. 12/16/23 Continue tx. 12/17/23 Continue tx. 12/23: Continue current regimen and plans 12/24: Continue current regimen and plans 12/25: Continue current plans and regimen 01/04 continue tx. 01/05: stable. continue current mgmt. 01/06: stable. continue current mgmt. 01/21/2024: Continue current regimen and plans 01/27/2024 CONTINUE PLAN OF CARE 01/28/2024 Continue plan of care discharge planning Plan 1. Continue with current treatment. 2. Waiting for placement. Plan Plan continue with same treatment Reason for continued inpatient stay Substantial Risk for: inability to function, rapid decompensation and med/psych decompensation Time Spent With Patient Time: Total time managing care of this patient today __20__ minutes.
[2024-02-05 18:00] VITALS: BP 164/76; PULSE 55; RESP 18; TEMP 36.6; O2SAT 100
[2024-02-05 20:01] LABS: Glucose, Whole Blood 119 mg/dL (60-115)
[2024-02-05] MEDS: Sennosides 8.6 MG TABLET 17.2 MG PO (20:19)
[2024-02-05] MEDS: traZODone HCL 50 MG TABLET PO (20:19)
[2024-02-05] MEDS: hydrOXYzine HCL 25 MG TABLET PO (20:19)
[2024-02-05] MEDS: Melatonin 3 MG TABLET 6 MG PO (20:19)
[2024-02-06 06:00] VITALS: BP 160/82; PULSE 64; RESP 18; TEMP 36.8; O2SAT 99
[2024-02-06 06:02] LABS: Glucose, Whole Blood 88 mg/dL (60-115)
[2024-02-06] MEDS: Insulin Glargine,Hum.rec.anlog 100 UNIT/ML 10 ML VIAL 6 UNIT SUBCUT (08:06)
[2024-02-06] MEDS: Sertraline HCL 50 MG TABLET 150 MG PO (08:07)
[2024-02-06] MEDS: HaloperidoL 1 MG TABLET PO ×2 (08:07→17:23)
[2024-02-06] MEDS: Memantine HCl 10 MG TABLET PO ×2 (08:07→20:56)
[2024-02-06] MEDS: polyethylene glycoL 3350 17 GM POWD.PACK PO (08:07)
[2024-02-06] MEDS: Magnesium Oxide 400 MG TABLET PO ×2 (08:07→17:23)
[2024-02-06] MEDS: Docusate Sodium 100 MG CAPSULE PO ×2 (08:07→20:56)
--- NOTE | 2024-02-06 15:39 | HO.PSYCHPN ---
Subjective Subjective Date of Service: 02/06/24 Reason For Visit: hallucinations confusion Subjective Notes: Conditional Voluntary Interim History: The nursing staff reported no changes in her mental status. The social worker aide reported that now she has a permanent guardian and she can be discharged to the [facility] next . On interview the patient denies new symptoms, waiting for placement. Mental Status Exam Mental Status Exam Patient Appearance: Appropriate Patient Orientation: Person Level of Consciousness: Awake Patient Behavior: Guarded and Passive Mood Description: Calm Affect Description: Constricted Patient Cognition Impaired: Yes Ability to Follow Directions: Good Speech Pattern: Clear Hallucinations: None Delusions: Not Present Thought Process: Distracted and Slowed Thinking Thought Content: positive for [place] and positive for Poverty of Content Judgement: Fair Diagnostics Vital Signs (24Hr): Vital Signs - 24 hr 02/05/24 18:00 02/06/24 06:00 Temperature 98 F 98.2 F Pulse Rate 55 64 Respiratory Rate 18 18 Blood Pressure 164/76 H 160/82 H Pulse Oximetry 100 99 Oxygen Delivery Method Room Air Room Air BMI result Body Mass Index 27.2 Labs 11/13/23 08:28 01/03/24 07:55 Labs: Laboratory Results - last 48 hr 02/04/24 02/05/24 02/05/24 19:58 05:48 19:56 POC Glucose 152 H 107 119 H 02/06/24 05:57 POC Glucose 88 Imaging Radiology Impressions: ITS Impressions Brain MRI 04/03/23 15:30 IMPRESSION: No acute infarct, mass lesion, intracranial hemorrhage, or evidence of hydrocephalus. Mild nonspecific T2/FLAIR hyperintensity in the cerebral white matter and danny presumably on the basis of chronic microangiopathy. Cervical Spine CT 07/03/23 20:12 IMPRESSION: No acute findings within the cervical spine. The cervical central canal is not well assessed on this CT due to artifact. If weakness persists, a cervical spine MRI would be more sensitive in assessment. Medications Medications Current Medications Acetaminophen (Acetaminophen 325 Mg Tablet) 650 mg PO Q6H PRN PRN Reason: Pain, Mild (Pain Scale 1-3) Last Admin: 01/28/24 20:23 Dose: 650 mg Amphetamine/Dextroamphetamine (Amphetamine Mixed Salts 10 Mg Tablet) 5 mg PO BID@0800,1500 [facility] Docusate Sodium (Docusate Sodium 100 Mg Capsule) 100 mg PO BID BEN Last Admin: 02/06/24 08:07 Dose: 100 mg Guaifenesin (Guaifenesin La 600 Mg Tab.Er.12h) 600 mg PO BID PRN PRN Reason: Cough Last Admin: 11/02/23 21:54 Dose: 600 mg Haloperidol (Haloperidol 1 Mg Tablet) 1 mg PO Q4H PRN PRN Reason: Hallucinations Last Admin: 02/03/24 20:47 Dose: 1 mg Haloperidol (Haloperidol 1 Mg Tablet) 1 mg PO BID@0830,1630 [facility] Last Admin: 02/06/24 08:07 Dose: 1 mg Hydroxyzine HCl (Hydroxyzine Hcl 25 Mg Tablet) 25 mg PO Q6H PRN PRN Reason: anxiety/restlessness Last Admin: 02/05/24 20:19 Dose: 25 mg Insulin Glargine (Insulin Glargine,Hum.Rec.Anlog 100 Unit/Ml 10 Ml Vial) 6 unit SUBCUT DAILY [facility] Last Admin: 02/06/24 08:06 Dose: 6 unit Magnesium Oxide (Magnesium Oxide 400 Mg Tablet) 400 mg PO BIDPC [facility] Last Admin: 02/06/24 08:07 Dose: 400 mg Melatonin (Melatonin 3 Mg Tablet) 6 mg PO BEDTIME [facility] Last Admin: 02/05/24 20:19 Dose: 6 mg Memantine (Memantine Hcl 10 Mg Tablet) 10 mg PO BID [facility] Last Admin: 02/06/24 08:07 Dose: 10 mg Polyethylene Glycol (Polyethylene Glycol 3350 17 Gm Powd.Pack) 17 gm PO DAILY [facility] Last Admin: 02/06/24 08:07 Dose: 17 gm Senna (Sennosides 8.6 Mg Tablet) 17.2 mg PO BEDTIME [facility] Last Admin: 02/05/24 20:19 Dose: 17.2 mg Sertraline HCl (Sertraline Hcl 50 Mg Tablet) 150 mg PO DAILY [facility] Last Admin: 02/06/24 08:07 Dose: 150 mg Trazodone HCl (Trazodone Hcl 50 Mg Tablet) 50 mg PO BEDTIME PRN PRN Reason: Insomnia Last Admin: 02/05/24 20:19 Dose: 50 mg Allergies Allergies Allergy/AdvReac Type Severity Reaction Status Date / Time No Known Allergies Allergy Verified 03/23/23 18:13 Assessment & Plan Assessment & Plan (1) Alzheimer's dementia: Status: Acute Code(s): G30.9 - Alzheimer's disease, unspecified; F02.80 - Dementia in other diseases classified elsewhere, unspecified severity, without behavioral disturbance, psychotic disturbance, mood disturbance, and anxiety Assessment and Plan: August 24 58 years old woman with relative young age onset at Alzheimer dementia but overall clinical picture is affected by significant depression, which continues to be the predominant feature of for clinical picture. Conventional dementia medicines such as donepezil or memantine can be tried but usually do not make significant difference. I would suggest memantine 10 mg twice a day and donepezil 10 mg daily. Recently a new dementia at drug for Alzheimer was approved but only for relatively mild dementia or mild cognitive impairment type of patients. She would not qualify for that drug. 10/18 Patient sitting in chair in the day room, head leaning over to 1 side, resting. When asked how she is doing she says that she has diabetes and that she takes meds for that. 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 Staff reports no changes in behavior but seems to have more frequent lucid moments. 10/27 continue tx. hold adderall due to increase irritability now that she is covid positive. 10/29: symptomatic of COVID - URI Sx. VSS. no change in mental health presentation. continue current mgmt. 10/30: continues laid low by COVID. psych presentation essentially unchanged. continue current mgmt, monitor VS. 10/31 continue tx. 11/05 CTP no change 11/06/23 - CTP 11/11/2023: No changes 11/12/2023: No changes to current plan 12/08 continue tx. 12/08: no changes 12/09: no changes 12/11 continue tx. 12/16/23 Continue tx. 12/17/23 Continue tx. 12/23: Continue current regimen and plans 12/24: Continue current regimen and plans 12/25: Continue current plans and regimen 01/04 continue tx. 01/05: stable. continue current mgmt. 01/06: stable. continue current mgmt. 01/21/2024: Continue current regimen and plans 01/27/2024 CONTINUE PLAN OF CARE 01/28/2024 Continue plan of care discharge planning Plan 1. Continue with current treatment. 2. Waiting for placement. Plan Plan continue with same treatment Reason for continued inpatient stay Substantial Risk for: inability to function, rapid decompensation and med/psych decompensation Time Spent With Patient Time: Total time managing care of this patient today __20__ minutes.
[2024-02-06 20:14] LABS: Glucose, Whole Blood 129 mg/dL (60-115)
[2024-02-06 20:30] VITALS: BP 151/67; PULSE 61; RESP 18; TEMP 36; O2SAT 98
[2024-02-06] MEDS: Melatonin 3 MG TABLET 6 MG PO (20:55)
[2024-02-06] MEDS: Sennosides 8.6 MG TABLET 17.2 MG PO (20:55)
[2024-02-06] MEDS: traZODone HCL 50 MG TABLET PO (20:55)
[2024-02-06] MEDS: hydrOXYzine HCL 25 MG TABLET PO (20:55)
--- NOTE | 2024-02-06 23:10 | PC.NURSE ---
Patient reported some slight restlessness, was given Atarax PO prn and Trazodone PO prn to held her sleep.
[2024-02-07 06:06] LABS: Glucose, Whole Blood 96 mg/dL (60-115)
[2024-02-07 08:18] VITALS: BP 149/74; PULSE 59; TEMP 36.2; O2SAT 100
[2024-02-07] MEDS: Insulin Glargine,Hum.rec.anlog 100 UNIT/ML 10 ML VIAL 6 UNIT SUBCUT (08:30)
[2024-02-07] MEDS: polyethylene glycoL 3350 17 GM POWD.PACK PO (08:30)
[2024-02-07] MEDS: HaloperidoL 1 MG TABLET PO ×2 (08:33→18:33)
[2024-02-07] MEDS: Docusate Sodium 100 MG CAPSULE PO ×2 (08:33→20:19)
[2024-02-07] MEDS: Memantine HCl 10 MG TABLET PO ×2 (08:33→20:19)
[2024-02-07] MEDS: Magnesium Oxide 400 MG TABLET PO ×2 (08:34→18:34)
[2024-02-07] MEDS: Sertraline HCL 50 MG TABLET 150 MG PO (08:34)
--- NOTE | 2024-02-07 13:21 | P.PNPSI_ITS ---
Subjective Subjective Date of Service: 02/07/24 Reason For Visit: hallucinations confusion Subjective Notes: Conditional Voluntary Interim History: The nursing staff reported no changes in her mental status cooperative pleasant. The protective services social worker reported that she could be discharged most likely on Monday. On interview the patient denies new symptoms pleasantly confused and cooperative. Mental Status Exam Mental Status Exam Patient Appearance: Appropriate Patient Orientation: Person and Situation Level of Consciousness: Awake and Appropriate Patient Behavior: Guarded and Passive Mood Description: Withdrawn Affect Description: Constricted Patient Cognition Impaired: Yes Ability to Follow Directions: Good Speech Pattern: Clear Hallucinations: None Delusions: Not Present Thought Process: Distracted and Slowed Thinking Thought Content: positive for [place] and positive for Poverty of Content Judgement: Poor Diagnostics Vital Signs (24Hr): Vital Signs - 24 hr 02/06/24 20:30 02/07/24 08:18 Temperature 96.8 F 97.2 F Pulse Rate 61 59 Respiratory Rate 18 Blood Pressure 151/67 H 149/74 H Pulse Oximetry 98 100 Oxygen Delivery Method Room Air Room Air BMI result Body Mass Index 27.2 Labs 11/13/23 08:28 01/03/24 07:55 Labs: Laboratory Results - last 48 hr 02/05/24 02/06/24 02/06/24 19:56 05:57 19:53 POC Glucose 119 H 88 129 H 02/07/24 06:02 POC Glucose 96 Imaging Radiology Impressions: ITS Impressions Brain MRI 04/03/23 15:30 IMPRESSION: No acute infarct, mass lesion, intracranial hemorrhage, or evidence of hydrocephalus. Mild nonspecific T2/FLAIR hyperintensity in the cerebral white matter and danny presumably on the basis of chronic microangiopathy. Cervical Spine CT 07/03/23 20:12 IMPRESSION: No acute findings within the cervical spine. The cervical central canal is not well assessed on this CT due to artifact. If weakness persists, a cervical spine MRI would be more sensitive in assessment. Medications Medications Current Medications Acetaminophen (Acetaminophen 325 Mg Tablet) 650 mg PO Q6H PRN PRN Reason: Pain, Mild (Pain Scale 1-3) Last Admin: 01/28/24 20:23 Dose: 650 mg Amphetamine/Dextroamphetamine (Amphetamine Mixed Salts 10 Mg Tablet) 5 mg PO BID@0800,1500 [facility] Docusate Sodium (Docusate Sodium 100 Mg Capsule) 100 mg PO BID [facility]EN Last Admin: 02/07/24 08:33 Dose: 100 mg Guaifenesin (Guaifenesin La 600 Mg Tab.Er.12h) 600 mg PO BID PRN PRN Reason: Cough Last Admin: 11/02/23 21:54 Dose: 600 mg Haloperidol (Haloperidol 1 Mg Tablet) 1 mg PO Q4H PRN PRN Reason: Hallucinations Last Admin: 02/03/24 20:47 Dose: 1 mg Haloperidol (Haloperidol 1 Mg Tablet) 1 mg PO BID@0830,1630 [facility] Last Admin: 02/07/24 08:33 Dose: 1 mg Hydroxyzine HCl (Hydroxyzine Hcl 25 Mg Tablet) 25 mg PO Q6H PRN PRN Reason: anxiety/restlessness Last Admin: 02/06/24 20:55 Dose: 25 mg Insulin Glargine (Insulin Glargine,Hum.Rec.Anlog 100 Unit/Ml 10 Ml Vial) 6 unit SUBCUT DAILY [facility] Last Admin: 02/07/24 08:30 Dose: 6 unit Magnesium Oxide (Magnesium Oxide 400 Mg Tablet) 400 mg PO BIDPC [facility] Last Admin: 02/07/24 08:34 Dose: 400 mg Melatonin (Melatonin 3 Mg Tablet) 6 mg PO BEDTIME [facility] Last Admin: 02/06/24 20:55 Dose: 6 mg Memantine (Memantine Hcl 10 Mg Tablet) 10 mg PO BID [facility] Last Admin: 02/07/24 08:33 Dose: 10 mg Polyethylene Glycol (Polyethylene Glycol 3350 17 Gm Powd.Pack) 17 gm PO DAILY [facility] Last Admin: 02/07/24 08:30 Dose: 17 gm Senna (Sennosides 8.6 Mg Tablet) 17.2 mg PO BEDTIME [facility] Last Admin: 02/06/24 20:55 Dose: 17.2 mg Sertraline HCl (Sertraline Hcl 50 Mg Tablet) 150 mg PO DAILY [facility] Last Admin: 02/07/24 08:34 Dose: 150 mg Trazodone HCl (Trazodone Hcl 50 Mg Tablet) 50 mg PO BEDTIME PRN PRN Reason: Insomnia Last Admin: 02/06/24 20:55 Dose: 50 mg Allergies Allergies Allergy/AdvReac Type Severity Reaction Status Date / Time No Known Allergies Allergy Verified 03/23/23 18:13 Assessment & Plan Assessment & Plan (1) Alzheimer's dementia: Status: Acute Code(s): G30.9 - Alzheimer's disease, unspecified; F02.80 - Dementia in other diseases classified elsewhere, unspecified severity, without behavioral disturbance, psychotic disturbance, mood disturbance, and anxiety Assessment and Plan: August 24 58 years old woman with relative young age onset at Alzheimer dementia but overall clinical picture is affected by significant depression, which continues to be the predominant feature of for clinical picture. Conventional dementia medicines such as donepezil or memantine can be tried but usually do not make significant difference. I would suggest memantine 10 mg twice a day and donepezil 10 mg daily. Recently a new dementia at drug for Alzheimer was approved but only for relatively mild dementia or mild cognitive impairment type of patients. She would not qualify for that drug. 10/18 Patient sitting in chair in the day room, head leaning over to 1 side, resting. When asked how she is doing she says that she has diabetes and that she takes meds for that. She asks if loan underwriter will be down here again. Staff reports no changes in behavior but seems to have more frequent lucid moments. 10/27 continue tx. hold adderall due to increase irritability now that she is covid positive. 10/29: symptomatic of COVID - URI Sx. VSS. no change in mental health presentation. continue current mgmt. 10/30: continues laid low by COVID. psych presentation essentially unchanged. continue current mgmt, monitor VS. 10/31 continue tx. 11/05 CTP no change 11/06/23 - CTP 11/11/2023: No changes 11/12/2023: No changes to current plan 12/08 continue tx. 12/08: no changes 12/09: no changes 12/11 continue tx. 12/16/23 Continue tx. 12/17/23 Continue tx. 12/23: Continue current regimen and plans 12/24: Continue current regimen and plans 12/25: Continue current plans and regimen 01/04 continue tx. 01/05: stable. continue current mgmt. 01/06: stable. continue current mgmt. 01/21/2024: Continue current regimen and plans 01/27/2024 CONTINUE PLAN OF CARE 01/28/2024 Continue plan of care discharge planning Plan 1. Continue with current treatment. 2. Waiting for placement. Plan Plan continue with same treatment Reason for continued inpatient stay Substantial Risk for: inability to function, rapid decompensation and med/psych decompensation Time Spent With Patient Time: Total time managing care of this patient today __20__ minutes.
[2024-02-07 20:17] VITALS: BP 115/80; PULSE 60; RESP 16; TEMP 36.6; O2SAT 99
[2024-02-07] MEDS: Sennosides 8.6 MG TABLET 17.2 MG PO (20:19)
[2024-02-07] MEDS: Melatonin 3 MG TABLET 6 MG PO (20:19)
[2024-02-07] MEDS: traZODone HCL 50 MG TABLET PO (20:19)
[2024-02-07 21:51] LABS: Glucose, Whole Blood 93 mg/dL (60-115)
[2024-02-08 06:50] LABS: Glucose, Whole Blood 108 mg/dL (60-115)
[2024-02-08 07:00] VITALS: BMI 26.9
[2024-02-08 08:10] VITALS: BP 139/65; PULSE 60; RESP 18; TEMP 36.2; O2SAT 97
[2024-02-08] MEDS: Insulin Glargine,Hum.rec.anlog 100 UNIT/ML 10 ML VIAL 6 UNIT SUBCUT (08:49)
[2024-02-08] MEDS: polyethylene glycoL 3350 17 GM POWD.PACK PO (08:49)
[2024-02-08] MEDS: Sertraline HCL 50 MG TABLET 150 MG PO (08:49)
[2024-02-08] MEDS: Memantine HCl 10 MG TABLET PO ×2 (08:50→19:59)
[2024-02-08] MEDS: Docusate Sodium 100 MG CAPSULE PO ×2 (08:50→19:59)
[2024-02-08] MEDS: HaloperidoL 1 MG TABLET PO ×2 (08:50→16:24)
[2024-02-08] MEDS: Magnesium Oxide 400 MG TABLET PO ×2 (08:50→16:24)
--- NOTE | 2024-02-08 11:54 | P.PNPSI_ITS ---
Subjective Subjective Date of Service: 02/08/24 Reason For Visit: hallucinations confusion Subjective Notes: Conditional Voluntary Interim History: Pt slept through the night. She is taking medications as prescribed. She asks this typewriter aligner when can I go home? She denies any physical concern. No behavioral disturbances, awaiting placement. Medication Compliance: Yes Review of Systems Review of Systems unremarkable Yes all other systems are reviewed and are negative and Unobtainable due to mental status Constitutional: Reports as per HPI, Denies chills, Denies fatigue, Denies fever(s) and Denies headache(s) Denies headache(s) Cardiovascular: Denies chest pain and Denies dyspnea Respiratory: Denies cough and Denies dyspnea Gastrointestinal: Denies abdominal pain, Denies constipation and Denies vomiting Denies headache(s) and Denies focal weakness Psychiatric: Denies auditory hallucinations, Reports hallucinations (Per the patient's daughter. Patient denies this), Denies tactile hallucinations and Denies suicidal ideation Endocrine: Denies fatigue Mental Status Exam Mental Status Exam Patient Appearance: Appropriate Patient Orientation: Person and Situation Level of Consciousness: Awake and Appropriate Patient Behavior: Guarded and Passive Behavior Comments: Eyes remain closed Mood Description: Withdrawn Affect Description: Constricted Patient Cognition Impaired: Yes Ability to Follow Directions: Good Speech Pattern: Clear Memory Description: Working Impaired Diagnostics Vital Signs (24Hr): Vital Signs - 24 hr 02/07/24 20:17 02/08/24 08:10 Temperature 97.9 F 97.2 F Pulse Rate 60 60 Respiratory Rate 16 18 Blood Pressure 115/80 139/65 Pulse Oximetry 99 97 Oxygen Delivery Method Room Air Room Air BMI result Body Mass Index 27.2 Labs 11/13/23 08:28 01/03/24 07:55 Labs: Laboratory Results - last 48 hr 02/06/24 02/07/24 02/07/24 19:53 06:02 21:45 POC Glucose 129 H 96 93 02/08/24 06:31 POC Glucose 108 Imaging Radiology Impressions: ITS Impressions Brain MRI 04/03/23 15:30 IMPRESSION: No acute infarct, mass lesion, intracranial hemorrhage, or evidence of hydrocephalus. Mild nonspecific T2/FLAIR hyperintensity in the cerebral white matter and danny presumably on the basis of chronic microangiopathy. Cervical Spine CT 07/03/23 20:12 IMPRESSION: No acute findings within the cervical spine. The cervical central canal is not well assessed on this CT due to artifact. If weakness persists, a cervical spine MRI would be more sensitive in assessment. Medications Medications Current Medications Acetaminophen (Acetaminophen 325 Mg Tablet) 650 mg PO Q6H PRN PRN Reason: Pain, Mild (Pain Scale 1-3) Last Admin: 01/28/24 20:23 Dose: 650 mg Amphetamine/Dextroamphetamine (Amphetamine Mixed Salts 10 Mg Tablet) 5 mg PO BID@0800,1500 [facility] Docusate Sodium (Docusate Sodium 100 Mg Capsule) 100 mg PO BID [facility] Last Admin: 02/08/24 08:50 Dose: 100 mg Guaifenesin (Guaifenesin La 600 Mg Tab.Er.12h) 600 mg PO BID PRN PRN Reason: Cough Last Admin: 11/02/23 21:54 Dose: 600 mg Haloperidol (Haloperidol 1 Mg Tablet) 1 mg PO Q4H PRN PRN Reason: Hallucinations Last Admin: 02/03/24 20:47 Dose: 1 mg Haloperidol (Haloperidol 1 Mg Tablet) 1 mg PO BID@0830,1630 [facility] Last Admin: 02/08/24 08:50 Dose: 1 mg Hydroxyzine HCl (Hydroxyzine Hcl 25 Mg Tablet) 25 mg PO Q6H PRN PRN Reason: anxiety/restlessness Last Admin: 02/06/24 20:55 Dose: 25 mg Insulin Glargine (Insulin Glargine,Hum.Rec.Anlog 100 Unit/Ml 10 Ml Vial) 6 unit SUBCUT DAILY [facility] Last Admin: 02/08/24 08:49 Dose: 6 unit Magnesium Oxide (Magnesium Oxide 400 Mg Tablet) 400 mg PO BIDPC [facility] Last Admin: 02/08/24 08:50 Dose: 400 mg Melatonin (Melatonin 3 Mg Tablet) 6 mg PO BEDTIME [facility] Last Admin: 02/07/24 20:19 Dose: 6 mg Memantine (Memantine Hcl 10 Mg Tablet) 10 mg PO BID [facility] Last Admin: 02/08/24 08:50 Dose: 10 mg Polyethylene Glycol (Polyethylene Glycol 3350 17 Gm Powd.Pack) 17 gm PO DAILY [facility] Last Admin: 02/08/24 08:49 Dose: 17 gm Senna (Sennosides 8.6 Mg Tablet) 17.2 mg PO BEDTIME [facility] Last Admin: 02/07/24 20:19 Dose: 17.2 mg Sertraline HCl (Sertraline Hcl 50 Mg Tablet) 150 mg PO DAILY [facility] Last Admin: 02/08/24 08:49 Dose: 150 mg Trazodone HCl (Trazodone Hcl 50 Mg Tablet) 50 mg PO BEDTIME PRN PRN Reason: Insomnia Last Admin: 02/07/24 20:19 Dose: 50 mg Allergies Allergies Allergy/AdvReac Type Severity Reaction Status Date / Time No Known Allergies Allergy Verified 03/23/23 18:13 Assessment & Plan Assessment & Plan (1) Alzheimer's dementia: Status: Acute Code(s): G30.9 - Alzheimer's disease, unspecified; F02.80 - Dementia in other diseases classified elsewhere, unspecified severity, without behavioral disturbance, psychotic disturbance, mood disturbance, and anxiety Assessment and Plan: August 24 58 years old woman with relative young age onset at Alzheimer dementia but overall clinical picture is affected by significant depression, which continues to be the predominant feature of for clinical picture. Conventional dementia medicines such as donepezil or memantine can be tried but usually do not make significant difference. I would suggest memantine 10 mg twice a day and donepezil 10 mg daily. Recently a new dementia at drug for Alzheimer was approved but only for relatively mild dementia or mild cognitive impairment type of patients. She would not qualify for that drug. 10/18 Patient sitting in chair in the day room, head leaning over to 1 side, resting. When asked how she is doing she says that she has diabetes and that she takes meds for that. She asks if typewriter aligner will be down here again. Staff reports no changes in behavior but seems to have more frequent lucid moments. 10/27 continue tx. hold adderall due to increase irritability now that she is covid positive. 10/29: symptomatic of COVID - URI Sx. VSS. no change in mental health presentation. continue current mgmt. 10/30: continues laid low by COVID. psych presentation essentially unchanged. continue current mgmt, monitor VS. 10/31 continue tx. 11/05 CTP no change 11/06/23 - CTP 11/11/2023: No changes 11/12/2023: No changes to current plan 12/08 continue tx. 12/08: no changes 12/09: no changes 12/11 continue tx. 12/16/23 Continue tx. 12/17/23 Continue tx. 12/23: Continue current regimen and plans 12/24: Continue current regimen and plans 12/25: Continue current plans and regimen 01/04 continue tx. 01/05: stable. continue current mgmt. 01/06: stable. continue current mgmt. 01/21/2024: Continue current regimen and plans 01/27/2024 CONTINUE PLAN OF CARE 01/28/2024 Continue plan of care discharge planning Plan 1. Continue with current treatment. 2. Waiting for placement. Plan Plan continue with same treatment Reason for continued inpatient stay Substantial Risk for: inability to function Time Spent With Patient Time: Total time managing care of this patient today ____ minutes.
[2024-02-08 18:00] VITALS: BP 125/59; PULSE 66; RESP 18; TEMP 36.4; O2SAT 97
[2024-02-08] MEDS: Sennosides 8.6 MG TABLET 17.2 MG PO (19:58)
[2024-02-08] MEDS: traZODone HCL 50 MG TABLET PO (19:59)
[2024-02-08] MEDS: Melatonin 3 MG TABLET 6 MG PO (19:59)
[2024-02-08 21:01] LABS: Glucose, Whole Blood 145 mg/dL (60-115)
[2024-02-09 06:00] VITALS: BP 149/74; PULSE 60; RESP 18; TEMP 36.7; O2SAT 98
[2024-02-09 06:29] LABS: Glucose, Whole Blood 121 mg/dL (60-115)
[2024-02-09] MEDS: Sertraline HCL 50 MG TABLET 150 MG PO (09:19)
[2024-02-09] MEDS: Memantine HCl 10 MG TABLET PO ×2 (09:19→21:19)
[2024-02-09] MEDS: HaloperidoL 1 MG TABLET PO ×2 (09:19→16:34)
[2024-02-09] MEDS: polyethylene glycoL 3350 17 GM POWD.PACK PO (09:19)
[2024-02-09] MEDS: Magnesium Oxide 400 MG TABLET PO ×2 (09:19→16:34)
[2024-02-09] MEDS: Docusate Sodium 100 MG CAPSULE PO ×2 (09:19→21:19)
[2024-02-09] MEDS: Insulin Glargine,Hum.rec.anlog 100 UNIT/ML 10 ML VIAL 6 UNIT SUBCUT (09:33)
--- NOTE | 2024-02-09 15:22 | HO.PSYCHPN ---
Subjective Subjective Date of Service: 02/09/24 Reason For Visit: hallucinations confusion Subjective Notes: Conditional Voluntary Interim History: The nursing staff reported no changes in her mental status, fully compliant with treatment. The social group worker reported that she will be discharged most likely next Monday. On interview the patient denies new symptoms she was happy to know that she could be discharged pretty soon. Mental Status Exam Mental Status Exam Patient Appearance: Well Grooomed and Appropriate Patient Orientation: Person and Situation Level of Consciousness: Awake and Appropriate Patient Behavior: Guarded and Passive Mood Description: Withdrawn Affect Description: Constricted Patient Cognition Impaired: Yes Ability to Follow Directions: Good Speech Pattern: Clear Hallucinations: None Delusions: Not Present Thought Process: Distracted and Slowed Thinking Thought Content: positive for [place] and positive for Poverty of Content Judgement: Fair Diagnostics Vital Signs (24Hr): Vital Signs - 24 hr 02/08/24 18:00 02/09/24 06:00 Temperature 97.6 F 98.0 F Pulse Rate 66 60 Respiratory Rate 18 18 Blood Pressure 125/59 L 149/74 H Pulse Oximetry 97 98 Oxygen Delivery Method Room Air Room Air BMI result Body Mass Index 26.9 Labs 11/13/23 08:28 01/03/24 07:55 Labs: Laboratory Results - last 48 hr 02/07/24 02/08/24 02/08/24 21:45 06:31 20:54 POC Glucose 93 108 145 H 02/09/24 05:54 POC Glucose 121 H Imaging Radiology Impressions: ITS Impressions Brain MRI 04/03/23 15:30 IMPRESSION: No acute infarct, mass lesion, intracranial hemorrhage, or evidence of hydrocephalus. Mild nonspecific T2/FLAIR hyperintensity in the cerebral white matter and danny presumably on the basis of chronic microangiopathy. Cervical Spine CT 07/03/23 20:12 IMPRESSION: No acute findings within the cervical spine. The cervical central canal is not well assessed on this CT due to artifact. If weakness persists, a cervical spine MRI would be more sensitive in assessment. Medications Medications Current Medications Acetaminophen (Acetaminophen 325 Mg Tablet) 650 mg PO Q6H PRN PRN Reason: Pain, Mild (Pain Scale 1-3) Last Admin: 01/28/24 20:23 Dose: 650 mg Amphetamine/Dextroamphetamine (Amphetamine Mixed Salts 10 Mg Tablet) 5 mg PO BID@0800,1500 BEN Docusate Sodium (Docusate Sodium 100 Mg Capsule) 100 mg PO BID [facility] Last Admin: 02/09/24 09:19 Dose: 100 mg Guaifenesin (Guaifenesin La 600 Mg Tab.Er.12h) 600 mg PO BID PRN PRN Reason: Cough Last Admin: 11/02/23 21:54 Dose: 600 mg Haloperidol (Haloperidol 1 Mg Tablet) 1 mg PO Q4H PRN PRN Reason: Hallucinations Last Admin: 02/03/24 20:47 Dose: 1 mg Haloperidol (Haloperidol 1 Mg Tablet) 1 mg PO BID@0830,1630 [facility] Last Admin: 02/09/24 09:19 Dose: 1 mg Hydroxyzine HCl (Hydroxyzine Hcl 25 Mg Tablet) 25 mg PO Q6H PRN PRN Reason: anxiety/restlessness Last Admin: 02/06/24 20:55 Dose: 25 mg Insulin Glargine (Insulin Glargine,Hum.Rec.Anlog 100 Unit/Ml 10 Ml Vial) 6 unit SUBCUT DAILY [facility] Last Admin: 02/09/24 09:33 Dose: 6 unit Magnesium Oxide (Magnesium Oxide 400 Mg Tablet) 400 mg PO BIDPC [facility] Last Admin: 02/09/24 09:19 Dose: 400 mg Melatonin (Melatonin 3 Mg Tablet) 6 mg PO BEDTIME [facility] Last Admin: 02/08/24 19:59 Dose: 6 mg Memantine (Memantine Hcl 10 Mg Tablet) 10 mg PO BID [facility] Last Admin: 02/09/24 09:19 Dose: 10 mg Polyethylene Glycol (Polyethylene Glycol 3350 17 Gm Powd.Pack) 17 gm PO DAILY [facility] Last Admin: 02/09/24 09:19 Dose: 17 gm Senna (Sennosides 8.6 Mg Tablet) 17.2 mg PO BEDTIME [facility] Last Admin: 02/08/24 19:58 Dose: 17.2 mg Sertraline HCl (Sertraline Hcl 50 Mg Tablet) 150 mg PO DAILY [facility] Last Admin: 02/09/24 09:19 Dose: 150 mg Trazodone HCl (Trazodone Hcl 50 Mg Tablet) 50 mg PO BEDTIME PRN PRN Reason: Insomnia Last Admin: 02/08/24 19:59 Dose: 50 mg Allergies Allergies Allergy/AdvReac Type Severity Reaction Status Date / Time No Known Allergies Allergy Verified 03/23/23 18:13 Assessment & Plan Assessment & Plan (1) Alzheimer's dementia: Status: Acute Code(s): G30.9 - Alzheimer's disease, unspecified; F02.80 - Dementia in other diseases classified elsewhere, unspecified severity, without behavioral disturbance, psychotic disturbance, mood disturbance, and anxiety Assessment and Plan: August 24 58 years old woman with relative young age onset at Alzheimer dementia but overall clinical picture is affected by significant depression, which continues to be the predominant feature of for clinical picture. Conventional dementia medicines such as donepezil or memantine can be tried but usually do not make significant difference. I would suggest memantine 10 mg twice a day and donepezil 10 mg daily. Recently a new dementia at drug for Alzheimer was approved but only for relatively mild dementia or mild cognitive impairment type of patients. She would not qualify for that drug. 10/18 Patient sitting in chair in the day room, head leaning over to 1 side, resting. When asked how she is doing she says that she has diabetes and that she takes meds for that. She asks if ghost writer will be down here again. Staff reports no changes in behavior but seems to have more frequent lucid moments. 10/27 continue tx. hold adderall due to increase irritability now that she is covid positive. 10/29: symptomatic of COVID - URI Sx. VSS. no change in mental health presentation. continue current mgmt. 10/30: continues laid low by COVID. psych presentation essentially unchanged. continue current mgmt, monitor VS. 10/31 continue tx. 11/05 CTP no change 11/06/23 - CTP 11/11/2023: No changes 11/12/2023: No changes to current plan 12/08 continue tx. 12/08: no changes 12/09: no changes 12/11 continue tx. 12/16/23 Continue tx. 12/17/23 Continue tx. 12/23: Continue current regimen and plans 12/24: Continue current regimen and plans 12/25: Continue current plans and regimen 01/04 continue tx. 01/05: stable. continue current mgmt. 01/06: stable. continue current mgmt. 01/21/2024: Continue current regimen and plans 01/27/2024 CONTINUE PLAN OF CARE 01/28/2024 Continue plan of care discharge planning Plan 1. Continue with current treatment. 2. Waiting for placement. Plan Plan continue with same treatment Reason for continued inpatient stay Substantial Risk for: inability to function, rapid decompensation and med/psych decompensation Time Spent With Patient Time: Total time managing care of this patient today _20___ minutes.
[2024-02-09 18:00] VITALS: BP 132/68; PULSE 62; RESP 18; TEMP 36.7; O2SAT 98
[2024-02-09 19:50] LABS: Glucose, Whole Blood 127 mg/dL (60-115)
[2024-02-09] MEDS: hydrOXYzine HCL 25 MG TABLET PO (21:19)
[2024-02-09] MEDS: Melatonin 3 MG TABLET 6 MG PO (21:19)
[2024-02-09] MEDS: Sennosides 8.6 MG TABLET 17.2 MG PO (21:19)
[2024-02-09] MEDS: traZODone HCL 50 MG TABLET PO (21:19)
[2024-02-10 05:46] LABS: Glucose, Whole Blood 102 mg/dL (60-115)
[2024-02-10 06:00] VITALS: BP 152/68; PULSE 55; RESP 16; TEMP 36.1; O2SAT 98
[2024-02-10] MEDS: Docusate Sodium 100 MG CAPSULE PO ×2 (09:44→21:12)
[2024-02-10] MEDS: Insulin Glargine,Hum.rec.anlog 100 UNIT/ML 10 ML VIAL 6 UNIT SUBCUT (09:44)
[2024-02-10] MEDS: Magnesium Oxide 400 MG TABLET PO ×2 (09:44→17:21)
[2024-02-10] MEDS: Sertraline HCL 50 MG TABLET 150 MG PO (09:44)
[2024-02-10] MEDS: Memantine HCl 10 MG TABLET PO ×2 (09:44→21:12)
[2024-02-10] MEDS: polyethylene glycoL 3350 17 GM POWD.PACK PO (09:44)
[2024-02-10] MEDS: HaloperidoL 1 MG TABLET PO ×2 (09:44→17:21)
--- NOTE | 2024-02-10 10:27 | P.PNPSI_ITS ---
Subjective Subjective Date of Service: 02/10/24 Reason For Visit: hallucinations confusion Subjective Notes: Conditional Voluntary Guardianship: Yes Interim History: Met with patient. Discussed with Nursing. Patient will be getting discharged after the weekend to [facility]. As per records patient has been informed, however on interview today seemingly unaware. Hopeful that her son will come and pick her up and bring her to stay with him. She is also not able to say where he lives. Outside of this reports she is doing okay and has no concerns. Medication Compliance: Yes Side effects from medications: No Attending Groups: Intermittent Review of Systems Acute medical concerns: No Review of Systems Review of Systems Nothing acute Mental Status Exam Mental Status Exam Narrative: pleasant. Engaged. Casually dressed. Good hygiene. Clear cognitive impairment already established. No evidence of depression and SI HI agitation or psychosis. Diagnostics Vital Signs (24Hr): Vital Signs - 24 hr 02/09/24 18:00 02/10/24 06:00 Temperature 98.1 F 97.0 F Pulse Rate 62 55 Respiratory Rate 18 16 Blood Pressure 132/68 152/68 H Pulse Oximetry 98 98 Oxygen Delivery Method Room Air Room Air BMI result Body Mass Index 26.9 Labs 11/13/23 08:28 01/03/24 07:55 Labs: Laboratory Results - last 48 hr 02/08/24 02/09/24 02/09/24 20:54 05:54 19:46 POC Glucose 145 H 121 H 127 H 02/10/24 05:32 POC Glucose 102 Imaging Radiology Impressions: ITS Impressions Brain MRI 04/03/23 15:30 IMPRESSION: No acute infarct, mass lesion, intracranial hemorrhage, or evidence of hydrocephalus. Mild nonspecific T2/FLAIR hyperintensity in the cerebral white matter and danny presumably on the basis of chronic microangiopathy. Cervical Spine CT 07/03/23 20:12 IMPRESSION: No acute findings within the cervical spine. The cervical central canal is not well assessed on this CT due to artifact. If weakness persists, a cervical spine MRI would be more sensitive in assessment. Medications Medications Current Medications Acetaminophen (Acetaminophen 325 Mg Tablet) 650 mg PO Q6H PRN PRN Reason: Pain, Mild (Pain Scale 1-3) Last Admin: 01/28/24 20:23 Dose: 650 mg Amphetamine/Dextroamphetamine (Amphetamine Mixed Salts 10 Mg Tablet) 5 mg PO BID@0800,1500 BEN Docusate Sodium (Docusate Sodium 100 Mg Capsule) 100 mg PO BID [facility] Last Admin: 02/10/24 09:44 Dose: 100 mg Guaifenesin (Guaifenesin La 600 Mg Tab.Er.12h) 600 mg PO BID PRN PRN Reason: Cough Last Admin: 11/02/23 21:54 Dose: 600 mg Haloperidol (Haloperidol 1 Mg Tablet) 1 mg PO Q4H PRN PRN Reason: Hallucinations Last Admin: 02/03/24 20:47 Dose: 1 mg Haloperidol (Haloperidol 1 Mg Tablet) 1 mg PO BID@0830,1630 [facility] Last Admin: 02/10/24 09:44 Dose: 1 mg Hydroxyzine HCl (Hydroxyzine Hcl 25 Mg Tablet) 25 mg PO Q6H PRN PRN Reason: anxiety/restlessness Last Admin: 02/09/24 21:19 Dose: 25 mg Insulin Glargine (Insulin Glargine,Hum.Rec.Anlog 100 Unit/Ml 10 Ml Vial) 6 unit SUBCUT DAILY [facility] Last Admin: 02/10/24 09:44 Dose: 6 unit Magnesium Oxide (Magnesium Oxide 400 Mg Tablet) 400 mg PO BIDPC [facility] Last Admin: 02/10/24 09:44 Dose: 400 mg Melatonin (Melatonin 3 Mg Tablet) 6 mg PO BEDTIME [facility] Last Admin: 02/09/24 21:19 Dose: 6 mg Memantine (Memantine Hcl 10 Mg Tablet) 10 mg PO BID [facility] Last Admin: 02/10/24 09:44 Dose: 10 mg Polyethylene Glycol (Polyethylene Glycol 3350 17 Gm Powd.Pack) 17 gm PO DAILY [facility] Last Admin: 02/10/24 09:44 Dose: 17 gm Senna (Sennosides 8.6 Mg Tablet) 17.2 mg PO BEDTIME [facility] Last Admin: 02/09/24 21:19 Dose: 17.2 mg Sertraline HCl (Sertraline Hcl 50 Mg Tablet) 150 mg PO DAILY [facility] Last Admin: 02/10/24 09:44 Dose: 150 mg Trazodone HCl (Trazodone Hcl 50 Mg Tablet) 50 mg PO BEDTIME PRN PRN Reason: Insomnia Last Admin: 02/09/24 21:19 Dose: 50 mg Allergies Allergies Allergy/AdvReac Type Severity Reaction Status Date / Time No Known Allergies Allergy Verified 03/23/23 18:13 Assessment & Plan Assessment & Plan (1) Alzheimer's dementia: Status: Acute Code(s): G30.9 - Alzheimer's disease, unspecified; F02.80 - Dementia in other diseases classified elsewhere, unspecified severity, without behavioral disturbance, psychotic disturbance, mood disturbance, and anxiety Assessment and Plan: August 24 58 years old woman with relative young age onset at Alzheimer dementia but overall clinical picture is affected by significant depression, which continues to be the predominant feature of for clinical picture. Conventional dementia medicines such as donepezil or memantine can be tried but usually do not make significant difference. I would suggest memantine 10 mg twice a day and donepezil 10 mg daily. Recently a new dementia at drug for Alzheimer was approved but only for relatively mild dementia or mild cognitive impairment type of patients. She would not qualify for that drug. 10/18 Patient sitting in chair in the day room, head leaning over to 1 side, resting. When asked how she is doing she says that she has diabetes and that she takes meds for that. She asks if press writer will be down here again. Staff reports no changes in behavior but seems to have more frequent lucid moments. 10/27 continue tx. hold adderall due to increase irritability now that she is covid positive. 10/29: symptomatic of COVID - URI Sx. VSS. no change in mental health presentation. continue current mgmt. 10/30: continues laid low by COVID. psych presentation essentially unchanged. continue current mgmt, monitor VS. 10/31 continue tx. 11/05 CTP no change 11/06/23 - CTP 11/11/2023: No changes 11/12/2023: No changes to current plan 12/08 continue tx. 12/08: no changes 12/09: no changes 12/11 continue tx. 12/16/23 Continue tx. 12/17/23 Continue tx. 12/23: Continue current regimen and plans 12/24: Continue current regimen and plans 12/25: Continue current plans and regimen 01/04 continue tx. 01/05: stable. continue current mgmt. 01/06: stable. continue current mgmt. 01/21/2024: Continue current regimen and plans 01/27/2024 CONTINUE PLAN OF CARE 01/28/2024 Continue plan of care discharge planning Plan 1. Continue with current treatment. 2. Waiting for placement. 02/09: no changes- planned discharge to [facility] 02/11 Plan Plan continue with same treatment Reason for continued inpatient stay Substantial Risk for: inability to function and rapid decompensation Time Spent With Patient Time: Total time managing care of this patient today ____ minutes.
[2024-02-10 18:00] VITALS: BP 153/67; PULSE 62; RESP 18; TEMP 36.2; O2SAT 100
[2024-02-10 19:47] LABS: Glucose, Whole Blood 142 mg/dL (60-115)
[2024-02-10] MEDS: traZODone HCL 50 MG TABLET PO (21:11)
[2024-02-10] MEDS: hydrOXYzine HCL 25 MG TABLET PO (21:11)
[2024-02-10] MEDS: Sennosides 8.6 MG TABLET 17.2 MG PO (21:12)
[2024-02-10] MEDS: Melatonin 3 MG TABLET 6 MG PO (21:12)
[2024-02-11 06:20] LABS: Glucose, Whole Blood 122 mg/dL (60-115)
[2024-02-11 08:43] VITALS: BP 118/62; PULSE 65; RESP 16; TEMP 36.6; O2SAT 97
[2024-02-11] MEDS: Insulin Glargine,Hum.rec.anlog 100 UNIT/ML 10 ML VIAL 6 UNIT SUBCUT (08:58)
[2024-02-11] MEDS: polyethylene glycoL 3350 17 GM POWD.PACK PO (08:58)
[2024-02-11] MEDS: Docusate Sodium 100 MG CAPSULE PO ×2 (08:59→20:52)
[2024-02-11] MEDS: Sertraline HCL 50 MG TABLET 150 MG PO (08:59)
[2024-02-11] MEDS: Memantine HCl 10 MG TABLET PO ×2 (08:59→20:52)
[2024-02-11] MEDS: HaloperidoL 1 MG TABLET PO ×2 (08:59→18:16)
[2024-02-11] MEDS: Magnesium Oxide 400 MG TABLET PO ×2 (08:59→18:16)
--- NOTE | 2024-02-11 11:03 | HO.PSYCHPN ---
Subjective Subjective Date of Service: 02/11/24 Reason For Visit: hallucinations confusion Subjective Notes: Conditional Voluntary Guardianship: Yes Interim History: Met with patient. Discussed with Nursing. Patient will be getting discharged tomorrow to [facility]. patient cognition impairs ability to understand disposition plan. Otherwise reports she is doing okay and has no concerns. Review of Systems Review of Systems Nothing acute Mental Status Exam Mental Status Exam Narrative: pleasant. Engaged. Casually dressed. Good hygiene. Clear cognitive impairment already established. No evidence of depression and SI HI agitation or psychosis. Diagnostics Vital Signs (24Hr): Vital Signs - 24 hr 02/10/24 18:00 02/11/24 08:43 Temperature 97.1 F 97.8 F Pulse Rate 62 65 Respiratory Rate 18 16 Blood Pressure 153/67 H 118/62 Pulse Oximetry 100 97 Oxygen Delivery Method Room Air Room Air BMI result Body Mass Index 26.9 Labs 11/13/23 08:28 01/03/24 07:55 Labs: Laboratory Results - last 48 hr 02/09/24 02/10/24 02/10/24 19:46 05:32 19:36 POC Glucose 127 H 102 142 H 02/11/24 06:13 POC Glucose 122 H Imaging Radiology Impressions: ITS Impressions Brain MRI 04/03/23 15:30 IMPRESSION: No acute infarct, mass lesion, intracranial hemorrhage, or evidence of hydrocephalus. Mild nonspecific T2/FLAIR hyperintensity in the cerebral white matter and danny presumably on the basis of chronic microangiopathy. Cervical Spine CT 07/03/23 20:12 IMPRESSION: No acute findings within the cervical spine. The cervical central canal is not well assessed on this CT due to artifact. If weakness persists, a cervical spine MRI would be more sensitive in assessment. Medications Medications Current Medications Acetaminophen (Acetaminophen 325 Mg Tablet) 650 mg PO Q6H PRN PRN Reason: Pain, Mild (Pain Scale 1-3) Last Admin: 01/28/24 20:23 Dose: 650 mg Amphetamine/Dextroamphetamine (Amphetamine Mixed Salts 10 Mg Tablet) 5 mg PO BID@0800,1500 BEN Docusate Sodium (Docusate Sodium 100 Mg Capsule) 100 mg PO BID [facility] Last Admin: 02/11/24 08:59 Dose: 100 mg Guaifenesin (Guaifenesin La 600 Mg Tab.Er.12h) 600 mg PO BID PRN PRN Reason: Cough Last Admin: 11/02/23 21:54 Dose: 600 mg Haloperidol (Haloperidol 1 Mg Tablet) 1 mg PO Q4H PRN PRN Reason: Hallucinations Last Admin: 02/03/24 20:47 Dose: 1 mg Haloperidol (Haloperidol 1 Mg Tablet) 1 mg PO BID@0830,1630 [facility] Last Admin: 02/11/24 08:59 Dose: 1 mg Hydroxyzine HCl (Hydroxyzine Hcl 25 Mg Tablet) 25 mg PO Q6H PRN PRN Reason: anxiety/restlessness Last Admin: 02/10/24 21:11 Dose: 25 mg Insulin Glargine (Insulin Glargine,Hum.Rec.Anlog 100 Unit/Ml 10 Ml Vial) 6 unit SUBCUT DAILY [facility] Last Admin: 02/11/24 08:58 Dose: 6 unit Magnesium Oxide (Magnesium Oxide 400 Mg Tablet) 400 mg PO BIDPC [facility] Last Admin: 02/11/24 08:59 Dose: 400 mg Melatonin (Melatonin 3 Mg Tablet) 6 mg PO BEDTIME [facility] Last Admin: 02/10/24 21:12 Dose: 6 mg Memantine (Memantine Hcl 10 Mg Tablet) 10 mg PO BID [facility] Last Admin: 02/11/24 08:59 Dose: 10 mg Polyethylene Glycol (Polyethylene Glycol 3350 17 Gm Powd.Pack) 17 gm PO DAILY [facility] Last Admin: 02/11/24 08:58 Dose: 17 gm Senna (Sennosides 8.6 Mg Tablet) 17.2 mg PO BEDTIME [facility] Last Admin: 02/10/24 21:12 Dose: 17.2 mg Sertraline HCl (Sertraline Hcl 50 Mg Tablet) 150 mg PO DAILY [facility] Last Admin: 02/11/24 08:59 Dose: 150 mg Trazodone HCl (Trazodone Hcl 50 Mg Tablet) 50 mg PO BEDTIME PRN PRN Reason: Insomnia Last Admin: 02/10/24 21:11 Dose: 50 mg Allergies Allergies Allergy/AdvReac Type Severity Reaction Status Date / Time No Known Allergies Allergy Verified 03/23/23 18:13 Assessment & Plan Assessment & Plan (1) Alzheimer's dementia: Status: Acute Code(s): G30.9 - Alzheimer's disease, unspecified; F02.80 - Dementia in other diseases classified elsewhere, unspecified severity, without behavioral disturbance, psychotic disturbance, mood disturbance, and anxiety Assessment and Plan: October 19 58 years old woman with relative young age onset at Alzheimer dementia but overall clinical picture is affected by significant depression, which continues to be the predominant feature of for clinical picture. Conventional dementia medicines such as donepezil or memantine can be tried but usually do not make significant difference. I would suggest memantine 10 mg twice a day and donepezil 10 mg daily. Recently a new dementia at drug for Alzheimer was approved but only for relatively mild dementia or mild cognitive impairment type of patients. She would not qualify for that drug. 10/18 Patient sitting in chair in the day room, head leaning over to 1 side, resting. When asked how she is doing she says that she has diabetes and that she takes meds for that. She asks if ad writer will be down here again. Staff reports no changes in behavior but seems to have more frequent lucid moments. 10/27 continue tx. hold adderall due to increase irritability now that she is covid positive. 10/29: symptomatic of COVID - URI Sx. VSS. no change in mental health presentation. continue current mgmt. 10/30: continues laid low by COVID. psych presentation essentially unchanged. continue current mgmt, monitor VS. 10/31 continue tx. 11/05 CTP no change 11/06/23 - CTP 11/11/2023: No changes 11/12/2023: No changes to current plan 12/08 continue tx. 12/08: no changes 12/09: no changes 12/11 continue tx. 12/16/23 Continue tx. 12/17/23 Continue tx. 12/23: Continue current regimen and plans 12/24: Continue current regimen and plans 12/25: Continue current plans and regimen 01/04 continue tx. 01/05: stable. continue current mgmt. 01/06: stable. continue current mgmt. 01/21/2024: Continue current regimen and plans 01/27/2024 CONTINUE PLAN OF CARE 01/28/2024 Continue plan of care discharge planning Plan 1. Continue with current treatment. 2. Waiting for placement. 02/10: no changes- planned discharge to [facility] 02/11 Plan Plan continue with same treatment Reason for continued inpatient stay Substantial Risk for: rapid decompensation Time Spent With Patient Time: Total time managing care of this patient today ____ minutes.
[2024-02-11 19:35] VITALS: BP 155/82; PULSE 59; RESP 16; TEMP 36.9; O2SAT 98
[2024-02-11 20:09] LABS: Glucose, Whole Blood 133 mg/dL (60-115)
[2024-02-11] MEDS: Melatonin 3 MG TABLET 6 MG PO (20:52)
[2024-02-11] MEDS: traZODone HCL 50 MG TABLET PO (20:52)
[2024-02-11] MEDS: Sennosides 8.6 MG TABLET 17.2 MG PO (20:52)
[2024-02-12 06:02] LABS: Glucose, Whole Blood 114 mg/dL (60-115)
[2024-02-12 07:45] VITALS: BP 145/77; PULSE 63; RESP 16; TEMP 36.5; O2SAT 96
[2024-02-12] MEDS: Insulin Glargine,Hum.rec.anlog 100 UNIT/ML 10 ML VIAL 6 UNIT SUBCUT (08:49)
[2024-02-12] MEDS: Memantine HCl 10 MG TABLET PO (08:50)
[2024-02-12] MEDS: Docusate Sodium 100 MG CAPSULE PO (08:50)
[2024-02-12] MEDS: HaloperidoL 1 MG TABLET PO (08:50)
[2024-02-12] MEDS: polyethylene glycoL 3350 17 GM POWD.PACK PO (08:50)
[2024-02-12] MEDS: Sertraline HCL 50 MG TABLET 150 MG PO (08:50)
[2024-02-12] MEDS: Magnesium Oxide 400 MG TABLET PO (08:50)
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
[2024-02-12] MEDS: hydrOXYzine HCL 25 MG TABLET PO (12:37)
== END 2024-02-12 14:00 | DRG 56 ==
LOC: HO.ED 20:45 → HO.PADLT16 23:46 → HO.PGERI 06-06 16:47
PROVIDERS: Clinical Nurse Specialist Psychiatric/Mental Health, Adult; Physician Assistant; Psychiatry & Neurology Neurology; Psychiatry & Neurology Psychiatry; Social Worker; Student in an Organized Health Care Education/Training Program; Admitting Provider Psychiatry & Neurology Psychiatry; Emergency Provider Internal Medicine; PCP Internal Medicine; Referring Provider Psychiatry & Neurology Psychiatry; Visit Provider Psychiatry & Neurology Psychiatry
DX: G30.0 Alzheimer's disease with early onset (principal); U07.1 COVID-19; G93.40 Encephalopathy, unspecified; Z59.01 Sheltered homelessness; N39.0 Urinary tract infection, site not specified; F32.A Depression, unspecified; F02.80 Dementia in other diseases classified elsewhere, unspecified severity, without behavioral disturbance, psychotic disturbance, mood disturbance, and anxiety; E11.65 Type 2 diabetes mellitus with hyperglycemia; E83.42 Hypomagnesemia; T38.0X5A Adverse effect of glucocorticoids and synthetic analogues, initial encounter; Z91.148 Patient's other noncompliance with medication regimen for other reason; K21.9 Gastro-esophageal reflux disease without esophagitis; E78.5 Hyperlipidemia, unspecified; Z75.1 Person awaiting admission to adequate facility elsewhere; Z79.4 Long term (current) use of insulin; Z79.84 Long term (current) use of oral hypoglycemic drugs; Z79.899 Other long term (current) drug therapy
CPT/HCPCS: 36415; 62328; 70551; 72125; 80048; 80051; 80053; 80076; 80307; 81001; 82042; 82140; 82175; 82565; 82607; 82746; 82945; 82947; 83036; 83520; 83655; 83735; 83825; 83916; 84100; 84157; 84181; 84443; 85025; 85027; 85049; 85610; 85652; 86038; 86140; 86225; 86255; 86256; 86431; 86592; 86757; 86780; 87015; 87070; 87086; 87088; 87186; 87205; 87389; 87483; 87493; 87635; 87798; 87801; 89051; 90686; 93005; 95816; 99285; S9485

== ENCOUNTER → 2023-03-23 23:35 | Outpatient (BNV) | payer BC, SELFPAY | PROVIDERS: Admitting Provider Psychiatry & Neurology Psychiatry; Emergency Provider Internal Medicine; PCP Internal Medicine; Visit Provider Psychiatry & Neurology Psychiatry | DX: G30.9 Alzheimer's disease, unspecified (principal); F02.80 Dementia in other diseases classified elsewhere, unspecified severity, without behavioral disturbance, psychotic disturbance, mood disturbance, and anxiety | CPT/HCPCS: 90792; 99231; 99232; 99233; 99238 ==

== ENCOUNTER → 2023-03-23 23:35 | Outpatient (BNV) | payer BC, SELFPAY | PROVIDERS: Admitting Provider Psychiatry & Neurology Psychiatry; Emergency Provider Internal Medicine; PCP Internal Medicine; Visit Provider Psychiatry & Neurology Psychiatry | DX: G30.9 Alzheimer's disease, unspecified (principal); F02.80 Dementia in other diseases classified elsewhere, unspecified severity, without behavioral disturbance, psychotic disturbance, mood disturbance, and anxiety | CPT/HCPCS: 99231; 99232 ==

== ENCOUNTER → 2023-03-30 14:31 | Day surgery (SDC) | payer BC, SELFPAY ==
--- NOTE | ~2023-03-30 | FL_ITS ---
EXAMINATION: XR LUMBAR PUNCTURE CLINICAL INFORMATION: Dementia. COMPARISON: CT scan of 07/22/2022 and 04/29/2022. TECHNIQUE: Fluoroscopic-guided lumbar puncture. FINDINGS: Consent was obtained by patient provider. Using sterile technique and fluoroscopic guidance attempt to perform lumbar puncture at the L4-L5 level was unsuccessful with a dry tap. Lumbar puncture was then performed at the L3-L4 disc space level with a 22-gauge spinal needle. Opening pressure was 10 cm of water. A total of 9 mL of clear cerebrospinal fluid was removed. FLUOROSCOPY TIME: 1.5 minutes. DOSE AREA PRODUCT: 6.401 Gy-cm2 (jackson-centimeter squared). FL/FL guided lumbar puncture LP IMPRESSION: Successful lumbar puncture as described.
[2023-03-30 15:26] VITALS: BP 135/81; PULSE 8; RESP 16; TEMP 37.2; O2SAT 98
[2023-03-30 16:00] VITALS: BP 126/71; RESP 20; O2SAT 95
[2023-03-30 16:59] VITALS: BP 141/83; PULSE 72; RESP 20; TEMP 36.9; O2SAT 96
== END ==
LOC: HO.SSS 14:33
PROVIDERS: Visit Provider Radiology Diagnostic Radiology
PROC: 009U3ZZ Drainage of Spinal Canal, Percutaneous Approach (ICD-10-PCS; CPT 62270; principal; 2023-03-30 14:20)
DX: R41.82 Altered mental status, unspecified (principal); F03.90 Unspecified dementia, unspecified severity, without behavioral disturbance, psychotic disturbance, mood disturbance, and anxiety
CPT/HCPCS: 62328

== ENCOUNTER → 2023-04-18 11:09 | Day surgery (SDC) | payer BC, SELFPAY ==
--- NOTE | ~2023-04-18 | FL_ITS ---
EXAMINATION: XR LUMBAR PUNCTURE CLINICAL INFORMATION: Encephalopathy COMPARISON: Previous LP exam 03/30/2023. TECHNIQUE/Findings: Medical necessity was determined by the attending physician who signed informed consent on the patient. Patient was positioned in the prone position. The back was prepped and draped in the usual sterile fashion. The skin and soft tissues were anesthetized with 1% lidocaine plain. Using fluoroscopic guidance and a 22-gauge spinal needle, left interlaminar access to the spinal canal at the L4-L5 level was obtained. 6 mL of clear fluid was removed. Diagnostic specimen was sent as requested by the ordering physician. There is no complication. FLUOROSCOPY TIME: 0.1 minute DOSE AREA PRODUCT: 1 jackson per centimeter squared. Total dose 5.9 mgy. 1 saved fluoroscopic image FL/FL guided lumbar puncture LP IMPRESSION: Fluoroscopy-guided lumbar puncture
--- NOTE | 2023-04-18 12:09 | PC.NURSE ---
patient taken from waiting room by bindery technician. patient registered in preop but not seen or prepped by RN. patient does not have IV access. This RN called GREG Ching RN to inform of situation stated above and that patient would need an IV placed if procedure unable to be preformed under local. Jeane aware.
[2023-04-18 12:20] VITALS: BP 131/61; RESP 16; O2SAT 100
[2023-04-18 12:35] VITALS: BP 140/61; RESP 16; O2SAT 99
--- NOTE | 2023-04-18 12:39 | PC.NURSE ---
as per report patient will need to lay flat for 2 hours reporting off to floor nurse to maintain care as patient
[2023-04-18 12:50] VITALS: BP 144/71; PULSE 68; RESP 16; O2SAT 98
[2023-04-18 13:05] VITALS: BP 145/62; PULSE 67; RESP 16; TEMP 36.1; O2SAT 98
[2023-10-15 20:19] LABS: Glucose, Whole Blood 247 mg/dL (60-115)
== END ==
PROVIDERS: Radiology Diagnostic Radiology; PCP Internal Medicine; Visit Provider Psychiatry & Neurology Psychiatry
PROC: 009U3ZZ Drainage of Spinal Canal, Percutaneous Approach (ICD-10-PCS; CPT 62270; principal; 2023-04-18 12:00)
DX: G93.40 Encephalopathy, unspecified (principal)
CPT/HCPCS: 62328; 82947